=== PATIENT | male | born 1950 | race Caucasian/White ===

== ENCOUNTER 2021-02-26 10:05 | Inpatient (IN) | payer OTHER ==
--- OUTSIDE RECORDS SUMMARY | 2021-02-26 10:08 | XMS REPORT | Continuity of Care Document ---
:1950 Author Organization [facility] t Address [address] [place] [address] Care Team Providers Name Role Phone Unavailable Unavailable Unavailable Problems Condition Condition Condition Status Onset Resolution Last Treating Co mments Source Name Details Category Date Date Treatment Clinician Date CHF CHF Problem Active [facility] ([facility]iv (congestiv Anupama kes - e heart e heart Memoria failure) failure) l [facility] Hypertensi Hypertensi Problem Active [facility] Diabetes Diabetes Problem [facility] type 2[facility] type 2, [facility] - controlled controlled Me moria l Outpati ent Clinics COPD COPD Problem Active [facility] (chronic (chronic [facility] - obstructiv obstructiv Me moria e e l pulmonary pulmonary Outp ati disease) disease) ent Clinics Nicotine Nicotine Problem Active [facility] dependence dependence Anup[facility] - [facility] Out[facility] Clinics Seasonal Seasonal Problem Active [facility] allergic allergic [facility] - rhinitis rhinitis Mem[facility] a l Outpati ent Clinics Adjustment Adjustment Problem Active [facility] disorder disorder [facility] - with with Memoria depressed depressed l mood mood Outpati ent Clinics Chronic Chronic Problem Active [facility] fatigue fatigue [facility] Type 2 Type [address] [facility] diabetes diabetes [facility] - mellitus mellitus Memori a with with l hyperglyce hyperglyce Ou tpati marci, marci, ent without without Clinics long-term long-term current current use of use of insulin insulin Allergies, Adverse Reactions, Alerts This patient has no known allergies or adverse reactions. Medications Ordered Filled Start Stop Current Ordering Indication Dosage Frequency Signature Comments Components Source Medication Medication Date Date Medication? Clinician (SIG) Name Name Amelia Cisneros 2020- No Meghana [address] [facility] Ellipta Ellipta 2-12 06-11 [place] [facility] - 00:00: 00:00 Memoria 00 :00 l [facility] HydrOXYzine HydrOXYzine Yes Meghana [address] [facility] HCl HCl 7-02 [place] as needed [facility] - 00:[facility]: Memoria 00 l [facility] Ozempic Genaic 2020- No Meghana 0.[address] [facility] 7-02 08-24 [place] [facility] - 00:00: 00:00 Memoria 00 :00 l [facility] Rae Hayesartur Yes Meghana as [facility] 1-02 [place] directed [facility] - 00:[facility]: Memoria 00 l [facility] ProAir ProAir Yes Meghana [address] [facility] RespiClick RespiClick [place] needed [facility] - [facility] [place] 3 Yes Meghana [address] [facility] [place] [facility] - [facility] l [facility] Yes Meghana [address] [facility] Sodium Sodium [place] in the [facility] - evening [facility] Lipitor Lipitor Yes Meghana [address] [facility] [place] [facility] Losartan Losartan Yes Meghana [address] Potassium Potassium [place] Luke [facility] - [facility] l [facility] Metoprolol Metoprolol Yes Meghana [address] [facility] [address] Tartrate Tartrate [place] with food L ukes - [facility] Metformin Metformin Yes Meghana [address] [facility] HCl HCl [place] with a [facility] - meal [facility] Immunizations Ordered Filled Immunization Date Status Comments [facility] e Immunization Name Name FLUZONE HIGH DOSE FLUZONE HIGH DOSE 2019-09-[address] [facility] - OVER 65 OVER 65 00:00:00 [facility] Procedures This patient has no known procedures. Encounters Start End Encounter Admission Attending Care Care Encounter Source Date/Time Date/Time Type Type Clinicians Facility Department ID 2020-04-04 2020-04-04 [place] [place] [id number] [facility] 13:00[facility]00 13:00[facility]00 [facility] Outpat[facility] ent Clinics 2020-03-22 2020-03-22 [facility] [place] [place] [id number] [facility] 15:20:00 15:20:00 [facility] Clin[facility] 2019-12-22 2019-12-22 [facility] [place] [id number] [facility] 10:40:00 10:40:00 [facility] Clin[facility] 2019-12-15 2019-12-15 [facility] [place] [id number] [facility] 14:00:00 14:00:00 [facility] 2019-09-14 2019-09-14 [facility] [place] [id number] [facility] 13:20:00 13:20:00 [facility] Clin[facility] 2019-05-11 2019-05-11 [facility] [place] [id number] [facility] 13:00[facility]00 13:00:00 [facility] Clin[facility] 2018-11-11 2018-11-11 [facility] [id number] [facility] 13:00:00 13:00:00 [facility] 2018-10-19 2018-10-19 [facility] [id number] [facility] 08:30:00 08:30:00 [facility] 2018-04-22 2018-04-22 [facility] [id number] [facility] 14:00:00 14:00:00 [facility] Results This patient has no known results.
[2021-02-26 11:28] LABS: Absolute Lymphocytes (CBC) 1.4 K/uL (0.7-4.9); Basophils % 0.6 % (0-1.3); Hematocrit 50.3 % (39.6-49.0); Lymphocytes % 9.5 % (15.3-44.8); MPV 10.3 fL (7.6-11.3); RBC Red Blood Cell Count 5.82 M/uL (4.33-5.43)
[2021-02-26 11:40] LABS: Protime INR 1.21
--- NOTE | 2021-02-26 12:02 | EDPHYS ---
Physician Documentation [facility] Name: José Pat Age: 70 yrs Sex: Male : 1950 Arrival Date: 02/26/2021 Time: 10:09 Bed 8 Private MD: ED Physician Jose Raul Reyes HPI: 02/26 16:46 This 70 yrs old Male presents to ER via Wheelchair with complaints of tw4 Shortness Of Breath, Weakness. 16:46 The patient has shortness of breath at rest. Duration: The symptoms 2 day(s) ago, are tw4 continuous, and are unchanged since they started. The patient's shortness of breath has no apparent modifying factors. Associated signs and symptoms: The patient has no apparent associated signs or symptoms. Severity of symptoms: At their worst the symptoms were moderate in the emergency department the symptoms are unchanged. The patient has not experienced similar symptoms in the past. Historical: - Allergies: 10:27 No Known Allergies; ll1 - PMHx: 10:27 COPD; CHF; Diabetes - IDDM; ll1 - PSHx: 10:27 colon; foot; ll1 - Immunization history:: Flu vaccine is not up to date. - Social history:: Smoking status: Patient reports the use of cigarette tobacco products, smokes one-half pack cigarettes per day. ROS: 16:46 Constitutional: Negative for fever, chills, and weight loss, Eyes: Negative for injury, tw4 pain, redness, and discharge, Cardiovascular: Negative for chest pain, palpitations, and edema, Abdomen/GI: Negative for abdominal pain, nausea, vomiting, diarrhea, and constipation, Back: Negative for injury and pain, MS/Extremity: Negative for injury and deformity, Skin: Negative for injury, rash, and discoloration, Neuro: Negative for headache, weakness, numbness, tingling, and seizure. 16:46 Respiratory: Positive for cough, dyspnea on exertion, shortness of breath. Exam: 16:46 Constitutional: This is a well developed, well nourished patient who is awake, alert, tw4 and in no acute distress. Head/Face: Normocephalic, atraumatic. Chest/axilla: Normal chest wall appearance and motion. Nontender with no deformity. No lesions are appreciated. Cardiovascular: Regular rate and rhythm with a normal S1 and S2. No gallops, murmurs, or rubs. Normal PMI, no JVD. No pulse deficits. 16:46 Respiratory: the patient does not display signs of respiratory distress, Respirations: normal, Breath sounds: decreased breath sounds, that are moderate, are heard in the left lower lobe, right lower lobe, left posterior lower lobe and right posterior lower lobe. Vital Signs: 10:24 BP 119 / 76; Pulse 125; Resp 28; Pulse Ox 81% on R/A; Weight 90.72 kg; Height 5 ft. 7 ll1 in. (170.18 cm); 10:27 Temp 98.1; ll1 11:00 Pulse Ox 82% 3 lpm ; hb 11:20 BP 103 / 66; Pulse 117; Resp 28; sv 12:00 BP 98 / 76; Pulse 116; Resp 28; Pulse Ox 93% 5 lpm ; sv 13:15 BP 106 / 77; Pulse 112; Resp 22; Pulse Ox 90% on 5 lpm NC; hb 10:24 Body Mass Index 31.32 (90.72 kg, 170.18 cm) ll1 MDM: 10:30 Patient medically screened. tw4 16:50 Differential diagnosis: reactive airway disease, Sepsis. Data reviewed: vital signs, tw4 nurses notes. Data interpreted: Pulse oximetry: Interpretation: normal. Test interpretation: by ED physician or midlevel provider: plain radiologic studies. Counseling: I had a detailed discussion with the patient and/or guardian regarding: the historical points, exam findings, and any diagnostic results supporting the discharge/admit diagnosis, the presence of at least one elevated blood pressure reading (>120/80) during this emergency department visit, lab results. Physician consultation: Jeremy Orellana MD regarding admission, to the telemetry unit. patient's condition, and will see patient in ED, shortly. 02/26 10:16 Order name: Blood Culture Adult (2) tw4 02/26 10:16 Order name: BMP 02/26 10:16 Order name: CBC with Diff; Complete Time: 11:49 tw4 02/26 12:15 Interpretation: Normal except: WBC 14.90; RBC 5.82; HCT 50.3; LYM% 9.5; MELONY% 82.0; NEUT tw4 A 12.2. 02/26 10:16 Order name: Ckmb; Complete Time: 12:15 02/26 12:15 Interpretation: Within normal limits: CKMB 1.7. 02/26 10:16 Order name: CPK 02/26 10:16 Order name: D-Dimer 02/26 10:16 Order name: Hepatic Function 02/26 10:16 Order name: Lipase; Complete Time: 12:15 02/26 10:16 Order name: Magnesium; Complete Time: 12:15 02/26 12:15 Interpretation: Within normal limits: MG 2.1. 02/26 10:16 Order name: NT PRO-BNP 02/26 10:16 Order name: PT-INR; Complete Time: 12:14 02/26 12:15 Interpretation: Normal except: PT 14.0. 02/26 10:16 Order name: Ptt, Activated; Complete Time: 12:15 02/26 12:15 Interpretation: Within normal limits: PTT 26.1. 02/26 10:16 Order name: Troponin (emerg Dept Use Only); Complete Time: 12:14 [facility] 02/26 12:14 Interpretation: Normal except: TROPED 0.61. 02/26 10:17 Order name: Blood Culture [facility] 02/26 10:56 Order name: CXR XRAY 02/26 11:31 Order name: ABG; Complete Time: 12:14 [facility] 02/26 12:14 Interpretation: Normal except: ABGPO2 68.3; ABGPCO2 46.2; ABGPH 7.47; ABGHCO3 32.8; tw4 KTZU0UX 90.6; ABGCOHB 2.0. 02/26 11:50 Order name: Lactate 02/26 11:50 Order name: Lactate [facility] 02/26 13:27 Order name: CBC with Automated Diff EDMS 02/26 13:27 Order name: CBC with Automated Diff EDMS 02/26 13:27 Order name: Comprehensive Metabolic Panel [facility] 02/26 13:27 Order name: Comprehensive Metabolic Panel [facility] 02/26 14:51 Order name: SARS-COV-2 RT PCR; Complete Time: 15:35 EDWA 02/26 15:35 Interpretation: Abnormal: SARSCOV2 RT PCR POSITIVE. 02/26 19:15 Order name: Troponin I EDMS 02/26 19:35 Order name: Ptt, Activated mg2 02/26 10:16 Order name: EKG; Complete Time: 10:17 tw4 02/26 10:16 Order name: Cardiac monitoring; Complete Time: 11:32 tw4 02/26 10:16 Order name: EKG - Nurse/Tech; Complete Time: 11:32 tw4 02/26 10:16 Order name: IV Saline Lock; Complete Time: 11: tw4 02/26 10:16 Order name: Labs collected and sent; Complete Time: 11: tw4 02/26 10:16 Order name: O2 Per Protocol; Complete Time: 11:32 4 02/26 10:16 Order name: O2 Sat Monitoring; Complete Time: :02/26 13:27 Order name: Regular EDMS EC:46 Rhythm is regular. ND interval is normal. QRS interval is normal. QT interval is tw4 normal. T waves are Normal. No ST changes noted. Clinical impression: Sinus tachycardia and RBBB. Interpreted by me. Reviewed by me. Administered Medications: 12:06 Drug: Rocephin (cefTRIAXone) 1 grams Route: IV; Rate: calculated rate; Site: right hb wrist; 12:07 Follow up: IV Status: Completed infusion; IV Intake: 10ml hb 12:08 Drug: NS 0.9% 1000 ml Route: IV; Rate: 1 bolus; Site: right wrist; hb 13:00 Follow up: Response: No adverse reaction; IV Status: Completed infusion; IV Intake: hb 1000ml 12:09 Drug: AZITHromycin 500 mg Route: IVPB; Infused Over: 1 hrs; Site: right wrist; hb 13:15 Follow up: IV Status: Completed infusion; IV Intake: 250ml hb 12:29 Drug: Heparin ([place] Drip) 12 units/kg/hr - (HEParin 41979 units, D5W 500 ml) hb {Co-Signature: sv (Maribel Prakash RN).} Route: IV; Rate: calculated rate; Site: right wrist; 14:00 Follow up: Response: No adverse reaction; IV Status: Infusion continued upon admission; hb IV Intake: 35ml Disposition: 02/26/21 12:01 Hospitalization ordered by Jeremy Orellana for Inpatient Admission. Preliminary diagnosis are Other pneumonia, unspecified organism, Non-ST elevation (NSTEMI) myocardial infarction, Coronavirus infection, unspecified. - Bed requested for Telemetry/MedSurg (Inpatient). - Status is Inpatient Admission. mg2 - Condition is Stable. - Problem is new. - Symptoms are unchanged. Signatures: Dispatcher [employer] EDMS Renée Allen Kayla Luna RN RN Gypsy Pires, MADELEINE SALVADOR Isidro Pizarro RN RN ja1 Jose Raul Reyes MD MD tw4 Norman Hernandez RN RN mg2 Gen Chaparro RN RN ll1 Maribel Prakash RN sv Corrections: (The following items were deleted from the chart) 12:16 12:01 Hospitalization Ordered by Jeremy Orellana MD for Inpatient Admission. Preliminary tw4 diagnosis is Other pneumonia, unspecified organism. Bed requested for Telemetry/MedSurg (Inpatient). Status is Inpatient Admission. Condition is Stable. Problem is new. Symptoms are unchanged. tw4 13:21 13:01 CORONAVIRUS+MR.LAB.BRZ ordered. [facility] EDWA 13:56 12:16 02/26/2021 12:01 Hospitalization Ordered by Jeremy Orellana MD for Inpatient ss Admission. Preliminary diagnosis is Other pneumonia, unspecified organism; Non-ST elevation (NSTEMI) myocardial infarction. Bed requested for Telemetry/MedSurg (Inpatient). Status is Inpatient Admission. Condition is Stable. Problem is new. Symptoms are unchanged. tw4 13:56 13:56 02/26/2021 12:01 Hospitalization Ordered by Jeremy Orellana MD for Inpatient ss Admission. Preliminary diagnosis is Other pneumonia, unspecified organism; Non-ST elevation (NSTEMI) myocardial infarction. Bed requested for [facility] ER HOLD. Status is Inpatient Admission. Condition is Stable. Problem is new. Symptoms are unchanged. 15:37 13:56 02/26/2021 12:01 Hospitalization Ordered by Jeremy Orellana MD for Inpatient tw4 Admission. Preliminary diagnosis is Other pneumonia, unspecified organism; Non-ST elevation (NSTEMI) myocardial infarction. Bed requested for [facility] ER HOLD. Status is Inpatient Admission. Condition is Stable. Problem is new. Symptoms are unchanged. 16:39 15:37 02/26/2021 12:01 Hospitalization Ordered by Jeremy Orellana MD for Inpatient bd Admission. Preliminary diagnosis is Other pneumonia, unspecified organism; Non-ST elevation (NSTEMI) myocardial infarction; Coronavirus infection, unspecified. Bed requested for [facility] ER HOLD. Status is Inpatient Admission. Condition is Stable. Problem is new. Symptoms are unchanged. tw4 16:39 16:39 02/26/2021 12:01 Hospitalization Ordered by Jeremy Orellana MD for Inpatient ja1 Admission. Preliminary diagnosis is Other pneumonia, unspecified organism; Non-ST elevation (NSTEMI) myocardial infarction; Coronavirus infection, unspecified. Bed requested for Telemetry/MedSurg (Inpatient). Status is Inpatient Admission. Condition is Stable. Problem is new. Symptoms are unchanged. bd 19:52 16:39 02/26/2021 12:01 Hospitalization Ordered by Jeremy Orellana MD for Inpatient mg2 Admission. Preliminary diagnosis is Other pneumonia, unspecified organism; Non-ST elevation (NSTEMI) myocardial infarction; Coronavirus infection, unspecified. Bed requested for Telemetry/MedSurg (Inpatient). Status is Inpatient Admission. Condition is Stable. Problem is new. Symptoms are unchanged. ja1
--- NOTE | 2021-02-26 12:02 | ER ---
Nurse's Notes [facility] Name: José Pat Age: 70 yrs Sex: Male : 1950 Arrival Date: 02/26/2021 Time: 10:09 Bed 8 Private MD: Diagnosis: Other pneumonia, unspecified organism;Non-ST elevation (NSTEMI) myocardial infarction;Coronavirus infection, unspecified Presentation: 02/26 10:24 Chief complaint: Patient states: SOB, weak for 2 weeks. No known fever. Coronavirus ll1 screen: Client denies travel out of the [place] in the last 14 days. cough unrelated to allergies, difficulty breathing, shortness of breath, Client presents with at least one sign or symptom that may indicate coronavirus-19. Standard/surgical mask placed on the client. Ebola Screen: Patient denies travel to an Ebola-affected area in the 21 days before illness onset. 10:24 Method Of Arrival: Wheelchair ll1 10:25 Initial Sepsis Screen: Does the patient meet any 2 criteria? RR > 20 per min. HR > 90 ll1 bpm. Yes Does the patient have a suspected source of infection? Yes: Productive cough/pneumonia. Risk Assessment: Do you want to hurt yourself or someone else? Patient reports no desire to harm self or others. Onset of symptoms was February 13, 2021. 10:25 Acuity: KIT 2 ll1 Historical: - Allergies: 10:27 No Known Allergies; ll1 - PMHx: 10:27 COPD; CHF; Diabetes - IDDM; ll1 - PSHx: 10:27 colon; foot; ll1 - Immunization history:: Flu vaccine is not up to date. - Social history:: Smoking status: Patient reports the use of cigarette tobacco products, smokes one-half pack cigarettes per day. Screenin:22 Abuse screen: Denies threats or abuse. Denies injuries from another. Nutritional hb screening: No deficits noted. Tuberculosis screening: No symptoms or risk factors identified. Fall Risk None identified. Assessment: 10:45 Reassessment: Patient appears in no apparent distress at this time. General: Appears hb distressed, Behavior is cooperative. Pain: Pain currently is 4 out of 10 on a pain scale. Neuro: Level of Consciousness is awake, alert, obeys commands, Oriented to person, place, time, situation. Cardiovascular: Patient's skin is warm and dry. Rhythm is sinus tachycardia. Respiratory: Reports shortness of breath at rest on exertion cough that is Airway is patent Respiratory effort is labored, Respiratory pattern is tachypnea. GI: No signs and/or symptoms were reported involving the gastrointestinal system. : No signs and/or symptoms were reported regarding the genitourinary system. EENT: No signs and/or symptoms were reported regarding the EENT system. Derm: Skin is pink, warm \T\ dry. Musculoskeletal: Reports low back pain, chronic. 11:45 Reassessment: No changes from previously documented assessment. Patient and/or family hb updated on plan of care and expected duration. Pain level reassessed. 12:45 Reassessment: No changes from previously documented assessment. Patient and/or family hb updated on plan of care and expected duration. Pain level reassessed. 13:45 Reassessment: No changes from previously documented assessment. Patient and/or family hb updated on plan of care and expected duration. Pain level reassessed. Vital Signs: 10:24 BP 119 / 76; Pulse 125; Resp 28; Pulse Ox 81% on R/A; Weight 90.72 kg; Height 5 ft. 7 ll1 in. (170.18 cm); 10:27 Temp 98.1; ll1 11:00 Pulse Ox 82% 3 lpm ; hb 11:20 BP 103 / 66; Pulse 117; Resp 28; sv 12:00 BP 98 / 76; Pulse 116; Resp 28; Pulse Ox 93% 5 lpm ; sv 13:15 BP 106 / 77; Pulse 112; Resp 22; Pulse Ox 90% on 5 lpm NC; hb 10:24 Body Mass Index 31.32 (90.72 kg, 170.18 cm) ll1 ED Course: 10:09 Patient arrived in ED. ds1 10:15 Jose Raul Reyes MD is Attending Physician. tw4 10:25 Triage completed. ll1 10:27 Arm band placed on. ll1 11:05 Initial lab(s) drawn, by me, sent to lab. First set of blood cultures drawn by me. em1 Inserted saline lock: 22 gauge in right wrist, using aseptic technique. Blood collected. 11:21 Gypsy Pires RN is Primary Nurse. hb 11:22 Patient has correct armband on for positive identification. Bed in low position. Call hb light in reach. 11:30 Second set of blood cultures drawn by me. em1 11:48 EKG done, by ED staff, reviewed by Jose Raul Reyes MD. em1 12:01 Jeremy Orellana MD is Hospitalizing Provider. tw4 12:16 CXR XRAY In Process Unspecified. EDMS 13:19 Inserted saline lock: 22 gauge in left antecubital area, using aseptic technique. em1 13:22 COVID swab sent to lab. jp3 13:28 Lactate Sent. sv 14:00 No provider procedures requiring assistance completed. Patient admitted, IV remains in hb place. 19:23 Primary Nurse role handed off by Gypsy Pires, MADELEINE mw2 Administered Medications: 12:06 Drug: Rocephin (cefTRIAXone) 1 grams Route: IV; Rate: calculated rate; Site: right hb wrist; 12:07 Follow up: IV Status: Completed infusion; IV Intake: 10ml hb 12:08 Drug: NS 0.9% 1000 ml Route: IV; Rate: 1 bolus; Site: right wrist; hb 13:00 Follow up: Response: No adverse reaction; IV Status: Completed infusion; IV Intake: hb 1000ml 12:09 Drug: AZITHromycin 500 mg Route: IVPB; Infused Over: 1 hrs; Site: right wrist; hb 13:15 Follow up: IV Status: Completed infusion; IV Intake: 250ml hb 12:29 Drug: Heparin ([place] Drip) 12 units/kg/hr - (HEParin 66704 units, D5W 500 ml) hb {Co-Signature: sv (Maribel Prakash RN).} Route: IV; Rate: calculated rate; Site: right wrist; 14:00 Follow up: Response: No adverse reaction; IV Status: Infusion continued upon admission; hb IV Intake: 35ml Intake: 12:07 IV: 10ml; Total: 10ml. hb 13:00 IV: 1000ml; Total: 1010ml. hb 13:15 IV: 250ml; Total: 1260ml. hb 14:00 IV: 35ml; Total: 1295ml. hb Outcome: 12:01 Decision to Hospitalize by Provider. tw4 14:00 Admitted to ER Hold. Please see [facility] for further documentation. hb 14:00 Condition: stable 14:00 Instructed on the need for admit, Demonstrated understanding of instructions. 19:52 Patient left the ED. mg2 Signatures: Dispatcher [employer] EDMaribel Rangel, MADELEINE SALVADOR sv Siena Mclaughlin ds1 Arron Gómez em1 Gypsy Pires, MADELEINE RN Jose Raul Reyes MD MD tw4 Rakan Ventura 2 Norman Hernandez RN RN mg2 Russ Cervantes jp3 Gen Chaparro RN RN ll1 Maribel Prakash RN
[2021-02-26 12:06] LABS: ALT/SGPT 32 U/L (12-78); AST/SGOT 32 U/L (15-37); Albumin 2.6 g/dL (3.4-5.0); Alkaline Phosphatase 54 U/L (45-117); BUN Blood Urea Nitrogen 11 mg/dL (7-18); Bicarbonate 32 mmol/L (21-32); Bilirubin Direct 0.6 mg/dL (0-0.2); Bilirubin Total 1.4 mg/dL (0.2-1.0); CKMB Creatine Kinase MB 1.7 ng/mL (0.3-3.6); Creatine Phosphokinase 74 U/L (39-308); Glucose Level 204 mg/dL (74-106); Lipase 152 U/L (73-393); Magnesium 2.1 mg/dL (1.8-2.4); NT PRO-BNP 2043 pg/mL (<125); Potassium 3.8 mmol/L (3.5-5.1); Protein, Total 7.5 g/dL (6.4-8.2); Sodium Level 134 mmol/L (136-145)
[2021-02-26 12:09] LABS: Blood Gas Oxyhemoglobin 90.6 % (94-97); Blood O2 Saturation 93.1 % (92-98.5)
[2021-02-26 12:11] LABS: Troponin (Emerg Dept Use Only) 0.61 ng/mL (0.0-0.045)
[2021-02-26] MEDS ORDERED: AZITHROMYCIN 500 MG INJ IVPB ONE (12:13)
[2021-02-26] MEDS ORDERED: NA CHLORIDE 0.9% 250 ML ONE (12:14)
[2021-02-26] MEDS ORDERED: NA CHLORIDE 0.9% 1,000 ML ONE ×2 (12:14→16:36)
[2021-02-26] MEDS ORDERED: CEFTRIAXONE/SWI 1gm 1 GM/10 ML SYR ONE (12:14)
--- NOTE | 2021-02-26 12:25 | RAD REPORT ---
EXAM DESCRIPTION: RAD - Chest Single View - 02/26/2021 12:16 pm CLINICAL HISTORY: COPD;SOBx2 weeks, history of COPD and CHF COMPARISON: Single-view chest December 2016 TECHNIQUE: AP portable chest image was obtained 02/26/2021 12:16 pm . FINDINGS: Interstitial pattern of the right lung field is prominent but not substantially different. No acute right lung parenchymal finding suspected. Extensive interstitial and alveolar opacities are present in the mid and lower left lung field. In th e acute clinical setting pneumonia is the most likely etiology. Heart size is normal range. Pulmonary vasculature within normal limits. Trachea is midline. No pneum othorax seen. Small left pleural effusion could be present. No right pleural effusions suspected. No acute bony abnormality seen. No acute aortic findings suspected. IMPRESSION: Extensive mid and lower left lung field interstitial and alveolar opacification most lik hilary pneumonia. Correlation is made with clinical presentation. Follow-up is needed to assure complete clearing.
[2021-02-26] MEDS ORDERED: HEPARIN/D5W 25,000 UNIT/500 ML BAG IV ONE (12:58)
[2021-02-26] MEDS ORDERED: ACETAMINOPHEN 500 MG TAB PO PRN (13:24)
--- NOTE | 2021-02-26 13:29 | P.HP ---
Patient History Date of Service: 02/26/21 Reason for admission: Cough, sob. History of Present Illness: 70 y o male pt with hx of COPD, BPH and recent treatment for pneumonia who was evaluated in the ED for episode of cough and sob with chest discomfort. he had CXR and labs drawn and he was found to have concerns for pneumonia and elevated troponin. He denies fever, chills, rigor legs swelling and headache. His labs were concerning for elevated WBC and troponin. He was diagnosed with pneumonia and NSTEMI and e was started on heparin drip. He is admitted for inpt care. Allergies No Known Allergies Allergy (Unverified 03/28/14 21:47) - Past Medical/Surgical History Diabetic: No -: DIVERTICULITIS -: COPD -: ABD SX-INFECTIONS POCKET OF ABD ORGANS-UNABLE TO SPECIFY AREAS - Social History Alcohol use: No CD- Drugs: No Caffeine use: Yes Review of Systems General: Weakness, Malaise Eyes: Unremarkable ENT: Unremarkable Respiratory: Cough, Shortness of Breath, Wheezing Cardiovascular: Unremarkable Gastrointestinal: Unremarkable Genitourinary: Unremarkable Musculoskeletal: Unremarkable Neurological: Unremarkable Physical Examination - Physical Exam General: Alert, Oriented x3, Cooperative HEENT: Atraumatic, Normocephalic Neck: Supple Respiratory: Diminished, Crackles/rales Cardiovascular: No edema, Regular rate/rhythm, Normal S1 S2 Gastrointestinal: Soft and benign Neurological: Normal speech, Cranial nerves 3-12 intact - Studies Laboratory Data (last 24 hrs) 02/26/21 11:05: PT 14.0 H, INR 1.21, APTT 26.1 02/26/21 11:05: WBC 14.90 H, Hgb 16.9, Hct 50.3 H, Plt Count 343 02/26/21 11:05: Sodium 134 L, Potassium 3.8, BUN 11, Creatinine 0.59, Glucose 204 H, Magnesium 2.1, Total Bilirubin 1.4 H, AST 32, ALT 32, Alkaline Phosphatase 54, Lipase 152 Assessment and Plan - Plan 1.COPD exacerbation-deemed infectious in etiology. we will continue empiric antibiotic of rocephin and azithromycin. we will continue duonebs ad consider steroid therapy if wheeze persist. we will have supplemental oxygen as needed. 2.NSTEMI-Deemed due to demand ischemia from pneumonia. we will trend troponin and continue heparin for acs protocol. cardiology to evaluate. 3.Pneumonia-He does have elevated WBC and CXR finding [id number] for pneumonia. we will continue started antibiotics while waiting for culture reprot. we will monitor symptomatology closely. 4.BPH-we will continue tamsulosin. 5.Diabetes type 2-we will continue SSI and carb restricted diet. Discharge Plan: Home - Advance Directives Does patient have a Living Will: No Does patient have a Durable POA for Healthcare: No
[2021-02-26] MEDS ORDERED: ENOXAPARIN 40 MG/0.4 ML SQ SCH (14:00)
[2021-02-26] MEDS: NA CHLORIDE 0.9% 1,000 ML IV SCH (14:00)
[2021-02-26 14:27] VITALS: BMI 32.5
[2021-02-26] MEDS ORDERED: GLUCAGON 1 MG/VIAL IM PRN (16:37)
[2021-02-26] MEDS ORDERED: D50W 25 GM/50 ML VIAL IV PRN (16:52)
[2021-02-26] MEDS ORDERED: HEPARIN/D5W 25,000 UNIT/500 ML BAG IV SCH (17:00)
[2021-02-26] MEDS ORDERED: HEPARIN/D5W 25,000 UNIT/500 ML BAG IV PRN (17:00)
[2021-02-26] MEDS: ALBUTEROL 2.5 MG/3 ML NEB SOL NEB SCH (20:05)
[2021-02-26] MEDS: IPRATROPIUM BROM 0.5MG/2.5ML NEB SCH (20:05)
[2021-02-26] MEDS: INSULIN -REGULAR HUMAN 50 UNIT/0.5 ML ML SQ SCH (22:25)
[2021-02-27] MEDS ORDERED: HEPARIN 5000 UNIT/ML 1 ML VIAL IV PRN (00:16)
[2021-02-27] MEDS: MELATONIN 5 MG TABLET PO PRN ×2 (00:47→21:34)
[2021-02-27] MEDS: ALBUTEROL 2.5 MG/3 ML NEB SOL NEB SCH ×2 (01:40→08:00)
[2021-02-27] MEDS: IPRATROPIUM BROM 0.5MG/2.5ML NEB SCH ×4 (01:40→20:20)
[2021-02-27 04:33] LABS: Absolute Lymphocytes (CBC) 1.9 K/uL (0.7-4.9); Basophils % 0.9 % (0-1.3); Hematocrit 43.5 % (39.6-49.0); Lymphocytes % 13.5 % (15.3-44.8); MPV 10.4 fL (7.6-11.3); RBC Red Blood Cell Count 5.02 M/uL (4.33-5.43)
[2021-02-27 04:46] LABS: ALT/SGPT 29 U/L (12-78); AST/SGOT 27 U/L (15-37); Albumin 2.2 g/dL (3.4-5.0); Alkaline Phosphatase 48 U/L (45-117); BUN Blood Urea Nitrogen 9 mg/dL (7-18); Bicarbonate 35 mmol/L (21-32); Bilirubin Total 0.7 mg/dL (0.2-1.0); Glucose Level 203 mg/dL (74-106); Potassium 3.6 mmol/L (3.5-5.1); Protein, Total 6.2 g/dL (6.4-8.2); Sodium Level 142 mmol/L (136-145)
[2021-02-27] MEDS: INSULIN -REGULAR HUMAN 50 UNIT/0.5 ML ML SQ SCH ×4 (07:30→21:33)
[2021-02-27] MEDS: TAMSULOSIN 0.4 MG SR CAP PO SCH (08:54)
[2021-02-27] MEDS: ASPIRIN EC 81 MG TAB PO SCH (08:54)
[2021-02-27] MEDS ORDERED: CEFTRIAXONE/SWI 1gm 1 GM/50 ML SYR IV SCH (09:00)
[2021-02-27] MEDS: NA CHLORIDE 0.9% 1,000 ML IV SCH ×2 (10:00)
[2021-02-27] MEDS: AZITHROMYCIN IV 500 MG in NA CHLORIDE 0.9% 250 ML IVPB SCH (11:33)
--- NOTE | 2021-02-27 12:17 | EKG ---
Test Date: 2021-02-26 Test Time: 11:14:54 [employer]: ATIF MEASUREMENT RESULTS: Intervals: Rate: 120 MN: 156 QRSD: 128 QT: 368 QTc: 520 [place]: P: 97 MN: 156 QRS: 268 T: 73 INTERPRETIVE STATEMENTS: Suspect arm lead reversal, interpretation assumes no reversal Sinus tachycardia with premature supraventricular complexes Right bundle branch block Inferior infarct, age undetermined Anterior infarct, age undetermined Abnormal ECG Compared to ECG 03/28/2014 00:20:06 Atrial premature complex(es) now present Atrial fibrillation no longer present Left anterior fascicular block no longer present Myocardial infarct finding still present Electronically Signed On 02-27-21 12:13:40 CDT by Nick Coulter
[2021-02-27] MEDS ORDERED: ALBUTEROL INHALER 60 PUFF/8 GM IH PRN (12:44)
--- NOTE | 2021-02-27 15:46 | CON ---
Date of Consultation: 02/27/2021 Reason For Consultation: Elevated troponin, sinus tachycardia, and pneumonia. History Of Present Illness: Mr. Pat is a 70-year-old male with history of COPD, diabetes, con gestive heart failure. Came in with a pneumonia in left lower lobe on chest x-ray. He has been in s inus tachycardia with a heart rate of 118, occasional PACs, first-degree AV block. No cardiac sympto ms reported. He came in with shortness of breath, cough, chills, no fever, secondary to pneumonia. He is on antibiotic. He is on heparin. He is on inhalers. Denies any chest pain, nausea, vomiting, diaphoresis, PND, orthopnea, pedal edema, palpitations, or syncope. Past Medical History: As stated above. Allergies: NONE. Review of Systems: Negative. Social History: Negative. Family History: Noncontributory. Medications: At home include inhalers, aspirin. Physical Examination: Vital Signs: Stable. He is afebrile. Sinus tachycardia with PACs. O2 saturation is 90% on 3 L. HEENT: Negative. Neck: Supple with no bruit. Chest: Reveals crackles both bases and occasional respiratory wheezing. Abdomen: Benign. Extremities: Revealed no clubbing, cyanosis, or edema. Diagnostic Data: EKG showed sinus tachycardia. Chest x-ray showed left lower lobe pneumonia. Gluco se was 198. O2 saturation 90% on 3 L. D-dimer is 7044. Troponin is 0.61. BNP is 2043. PO2 is 68, pCO2 of 42, pH is 7.47. Impression And Plan: Sinus tachycardia, elevated troponin, elevated BNP secondary to demand ischemia from the pneumonia. The D-dimer is elevated for the same reason. I will do an echocardiography. Kim horton remained hypoxic, still had some wheezing, still tachycardic, I think he needs to be on antibiotics and inhalers for a longer time. Depending what the echocardiogram shows, we may consider a low-dose beta-kvng. His diabetes is fairly well controlled. He has chronic obstructive pulmonary disease exacerbation, which may exacerbate his pneumonia and may take him a longer time to recover. Neverth eless, I agree with present regimen. This is not an acute coronary syndrome. For invasive cardiac workup, we will see what the echo shows before making further decisions. RUPERT/MODL Voice ID: [id number] Report ID: [id number]
[2021-02-28] MEDS: IPRATROPIUM BROM 0.5MG/2.5ML NEB SCH ×4 (01:40→19:45)
[2021-02-28] MEDS: INSULIN -REGULAR HUMAN 50 UNIT/0.5 ML ML SQ SCH ×4 (07:30→20:51)
[2021-02-28] MEDS: CEFTRIAXONE/SWI 1gm 1 GM/10 ML SYR IV SCH (08:10)
[2021-02-28] MEDS: TAMSULOSIN 0.4 MG SR CAP PO SCH (08:10)
[2021-02-28] MEDS: ASPIRIN EC 81 MG TAB PO SCH (08:10)
[2021-02-28] MEDS: AZITHROMYCIN IV 500 MG in NA CHLORIDE 0.9% 250 ML IVPB SCH (08:11)
[2021-02-28] MEDS: dexAMETHasone 4 MG/ML VIAL IV SCH ×2 (10:46→20:50)
[2021-02-28] MEDS ORDERED: Remdesivir 200 MG in NA CHLORIDE 0.9% 250 ML IV ONE (12:00)
[2021-02-28] MEDS: MELATONIN 5 MG TABLET PO PRN (20:51)
[2021-03-01] MEDS: IPRATROPIUM BROM 0.5MG/2.5ML NEB SCH ×4 (03:20→20:10)
[2021-03-01] MEDS: INSULIN -REGULAR HUMAN 50 UNIT/0.5 ML ML SQ SCH ×4 (07:40→21:15)
[2021-03-01] MEDS: dexAMETHasone 4 MG/ML VIAL IV SCH ×2 (07:41→21:15)
[2021-03-01] MEDS: ASPIRIN EC 81 MG TAB PO SCH (07:41)
[2021-03-01] MEDS: CEFTRIAXONE/SWI 1gm 1 GM/10 ML SYR IV SCH (07:41)
[2021-03-01] MEDS: TAMSULOSIN 0.4 MG SR CAP PO SCH (07:41)
[2021-03-01] MEDS: AZITHROMYCIN IV 500 MG in NA CHLORIDE 0.9% 250 ML IVPB SCH (07:42)
--- NOTE | 2021-03-01 08:11 | ECHO ---
HEIGHT: 5 ft 7 in WEIGHT: 207 lb 7.28 oz DATE OF STUDY: 02/27/[address]: Jeremy Orellana MD 2-DIMENSIONAL: YES M.MODE: YES DOPPLER: YES COLOR FLOW: YES TDS: NO PORTABLE: NO DEFINITY: NO BUBBLE STUDY: NO DIAGNOSIS: NSTEMI EVALUATION CARDIAC HISTORY: CATHERIZATION: NO SURGERY: NO PROSTHETIC VALVE: NO PACEMAKER: NO MEASUREMENTS (cm) DIASTOLIC (NORMALS) SYSTOLIC (NORMALS) IVSd 1.4 (0.6-1.2) LA Diam 3.5 (1.9-4.0) LVEF 51% LVIDd 4.0 (3.5-5.7) LVIDs 3.0 (2.0-3.5) %FS 26% LVPWd 1.4 (0.6-1.2) Ao Diam 2.7 (2.0-3.7) 2 DIMENSIONAL ASSESSMENT: RIGHT ATRIUM: NORMAL LEFT ATRIUM: NORMAL RIGHT VENTRICLE: NORMAL LEFT VENTRICLE: LEFT VENTRICULAR HYPERTROPHY TRICUSPID VALVE: NORMAL MITRAL VALVE: NORMAL PULMONIC VALVE: NORMAL AORTIC VALVE: NORMAL PERICARDIAL EFFUSION: NONE AORTIC ROOT: NORMAL LEFT VENTRICULAR WALL MOTION: NORMAL DOPPLER/COLOR FLOW: NORMAL COMMENTS: LEFT VENTRICULAR HYPERTROPHY. NORMAL LEFT VENTRICULAR EJECTION FRACTION. NO WALL MOTION ABNORMALITY. NO EFFUSION. TECHNOLOGIST: Vanessa VALLE
[2021-03-01] MEDS: Remdesivir 100 MG in NA CHLORIDE 0.9% 250 ML IV SCH (08:49)
--- NOTE | 2021-03-01 11:55 | PN ---
Date of Progress Note: 02/28/2021 The patient has been seen because of elevated troponin following severe pneumonia. 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 Echocardiogram which was done today on 02/28/2021 revealed smiley l ejection fraction, no wall motion abnormalities, and no effusion. I still feel that his elevated t roponin, BNP, and D-dimer, and elevated heart rate is secondary to demand ischemia and pneumonia. I will consider a low-dose beta kvng, but I am hoping with hydration and treating his pneumonia, he will improve back to normal. We will see him in the office as an outpatient. RUPERT/BASSAM Voice ID: [id number] Report ID: [id number]
[2021-03-02] MEDS: IPRATROPIUM BROM 0.5MG/2.5ML NEB SCH ×4 (02:15→20:40)
[2021-03-02] MEDS: TAMSULOSIN 0.4 MG SR CAP PO SCH (07:24)
[2021-03-02] MEDS: ASPIRIN EC 81 MG TAB PO SCH (07:24)
[2021-03-02] MEDS: AZITHROMYCIN IV 500 MG in NA CHLORIDE 0.9% 250 ML IVPB SCH (07:24)
[2021-03-02] MEDS: CEFTRIAXONE/SWI 1gm 1 GM/10 ML SYR IV SCH (07:24)
[2021-03-02] MEDS: dexAMETHasone 4 MG/ML VIAL IV SCH ×2 (07:25→20:31)
[2021-03-02] MEDS: INSULIN -REGULAR HUMAN 50 UNIT/0.5 ML ML SQ SCH ×4 (08:31→20:31)
[2021-03-02] MEDS: Remdesivir 100 MG in NA CHLORIDE 0.9% 250 ML IV SCH (08:31)
--- NOTE | 2021-03-02 16:39 | P.PN ---
Subjective Date of Service: 02/27/21 Patient still short of breath and in distress. Continue with Remdesivir. Patient still remains hypoxic. Continue monitoring closely. Review of Systems 10-point ROS is otherwise unremarkable Physical Examination - Vital Signs Temperature: 97.5 F Blood Pressure: 107/70 Pulse: 101 Respirations: 20 Pulse Ox (%): 93 - Physical Exam General: Alert, In no apparent distress, Oriented x3 HEENT: Atraumatic, PERRLA, EOMI Neck: Supple, JVD not distended Respiratory: Clear to auscultation bilaterally, Diminished, Expiratory wheezes, Rhonchi/gurgles Cardiovascular: Regular rate/rhythm, Normal S1 S2, No murmurs Gastrointestinal: Normal bowel sounds, Soft and benign, Non-distended, No tenderness Musculoskeletal: No tenderness Neurological: Sensation intact, Cranial nerves 3-12 intact - Studies Medications List Reviewed: Yes Assessment & Plan - Problems (Diagnosis) (1) Pneumonia due to COVID-19 virus Current Visit: Yes Status: Acute (2) Dyspnea Current Visit: No Status: Acute - Plan 1. Continue with IV steroids 2. Monitor inflammatory markers 3. Repeat chest x-ray is symptoms are progressively worsening 4. O2 per protocol 5. Continue with antiviral therapy 6. Continue with albuterol inhaler therapy; also supportive care 7. Monitor LFTs 8. GI and DVT prophylaxis Discharge Plan: Home Plan to discharge in: Greater than 2 days - Advance Directives Does patient have a Living Will: No Does patient have a Durable POA for Healthcare: No - Code Status/Comfort Care Code Status Assessed: Yes Code Status: Full Code Critical Care: No Time Spent Managing PTS Care (In Minutes): 35
--- NOTE | 2021-03-02 16:42 | P.PN ---
Date of Service: 02/28/21 Subjective Patient respiratory status is improving. Patient clinically feels much better. Review of Systems 10-point ROS is otherwise unremarkable Physical Examination - Vital Signs Reviewed - Physical Exam General: Alert, In no apparent distress, Oriented x3 Respiratory: Clear to auscultation bilaterally, Diminished, Expiratory wheezes, Rhonchi/gurgles Cardiovascular: Regular rate/rhythm, Normal S1 S2, No murmurs Gastrointestinal: Normal bowel sounds, Soft and benign, Non-distended, No tenderness Musculoskeletal: No tenderness Neurological: Sensation intact, Cranial nerves 3-12 intact Assessment & Plan - Problems (Diagnosis) (1) Pneumonia due to COVID-19 virus Current Visit: Yes Status: Acute (2) Dyspnea Current Visit: No Status: Acute - Plan Continue with plan of care as mentioned below: 1. Continue with IV steroids 2. Monitor inflammatory markers 3. Repeat chest x-ray is symptoms are progressively worsening 4. O2 per protocol 5. Continue with antiviral therapy 6. Continue with albuterol inhaler therapy; also supportive care 7. Monitor LFTs 8. GI and DVT prophylaxis
--- NOTE | 2021-03-02 16:43 | P.PN ---
Date of Service: 03/01/21 Subjective Patient continuing to do well. Symptomatically much better. Review of Systems 10-point ROS is otherwise unremarkable Physical Examination - Vital Signs Reviewed - Physical Exam General: Alert, In no apparent distress, Oriented x3 Respiratory: Clear to auscultation bilaterally, Diminished, Expiratory wheezes, Rhonchi/gurgles Cardiovascular: Regular rate/rhythm, Normal S1 S2, No murmurs Gastrointestinal: Normal bowel sounds, Soft and benign, Non-distended, No tenderness Musculoskeletal: No tenderness Neurological: Sensation intact, Cranial nerves 3-12 intact Assessment & Plan - Problems (Diagnosis) (1) Pneumonia due to COVID-19 virus Current Visit: Yes Status: Acute (2) Dyspnea Current Visit: No Status: Acute - Plan Continue with plan of care as mentioned below: 1. Continue with IV steroids 2. Monitor inflammatory markers 3. Repeat chest x-ray is symptoms are progressively worsening 4. O2 per protocol 5. Continue with antiviral therapy; day 2/3 6. Continue with albuterol inhaler therapy; also supportive care 7. Monitor LFTs 8. GI and DVT prophylaxis
--- NOTE | 2021-03-02 16:44 | P.PN ---
Date of Service: 03/02/21 Subjective Patient on day 3 of 5; anticipate discharge over the next 24-48 hr. He looks like she will still need home oxygen. Review of Systems 10-point ROS is otherwise unremarkable Physical Examination - Vital Signs Reviewed - Physical Exam General: Alert, In no apparent distress, Oriented x3 Respiratory: Respirations are improved Cardiovascular: Regular rate/rhythm, Normal S1 S2, No murmurs Gastrointestinal: Normal bowel sounds, Soft and benign, Non-distended, No tenderness Musculoskeletal: No tenderness Neurological: Sensation intact, Cranial nerves 3-12 intact Assessment & Plan - Problems (Diagnosis) (1) Pneumonia due to COVID-19 virus Current Visit: Yes Status: Acute (2) Dyspnea Current Visit: No Status: Acute - Plan Continue with plan of care as mentioned below: 1. Continue with IV steroids 2. Monitor inflammatory markers 3. Repeat chest x-ray is symptoms are progressively worsening 4. O2 per protocol 5. Continue with antiviral therapy; day 2/3 6. Continue with albuterol inhaler therapy; also supportive care 7. Monitor LFTs 8. GI and DVT prophylaxis
[2021-03-03] MEDS: IPRATROPIUM BROM 0.5MG/2.5ML NEB SCH ×4 (02:10→20:15)
[2021-03-03] MEDS ORDERED: FAMOTIDINE 20 MG TAB PO ONE (02:49)
[2021-03-03] MEDS ORDERED: METOPROLOL TAR 25 MG TAB PO ONE ×2 (02:50→04:19)
[2021-03-03] MEDS: MELATONIN 5 MG TABLET PO PRN ×2 (03:03→20:57)
[2021-03-03] MEDS ORDERED: METOPROLOL TAR 25 MG TAB PO SCH (06:00)
[2021-03-03] MEDS: AZITHROMYCIN IV 500 MG in NA CHLORIDE 0.9% 250 ML IVPB SCH (07:32)
[2021-03-03] MEDS: ASPIRIN EC 81 MG TAB PO SCH (07:32)
[2021-03-03] MEDS: TAMSULOSIN 0.4 MG SR CAP PO SCH (07:33)
[2021-03-03] MEDS: CEFTRIAXONE/SWI 1gm 1 GM/10 ML SYR IV SCH (07:33)
[2021-03-03] MEDS: dexAMETHasone 4 MG/ML VIAL IV SCH ×2 (07:33→20:57)
[2021-03-03] MEDS: INSULIN -REGULAR HUMAN 50 UNIT/0.5 ML ML SQ SCH ×4 (08:09→20:56)
[2021-03-03] MEDS: Remdesivir 100 MG in NA CHLORIDE 0.9% 250 ML IV SCH (09:26)
[2021-03-04] MEDS: IPRATROPIUM BROM 0.5MG/2.5ML NEB SCH ×2 (02:25→08:39)
[2021-03-04 04:06] VITALS: O2SAT 91
[2021-03-04 04:22] LABS: Albumin 2.8 g/dL (3.4-5.0); Bilirubin Direct 0.3 mg/dL (0-0.2); Bilirubin Total 0.8 mg/dL (0.2-1.0); Protein, Total 7.2 g/dL (6.4-8.2)
--- NOTE | 2021-03-04 07:57 | P.PN ---
Date of Service: 03/03/21 Subjective Patient on day 4 of 5; clinical symptoms continued to improve. anticipate discharge home in the morning Review of Systems 10-point ROS is otherwise unremarkable Physical Examination - Vital Signs Reviewed - Physical Exam General: Alert, In no apparent distress, Oriented x3 Respiratory: Lungs appear to be clear at this time Cardiovascular: Regular rate/rhythm, Normal S1 S2, No murmurs Gastrointestinal: Normal bowel sounds, Soft and benign, Non-distended, No tenderness Musculoskeletal: No tenderness Neurological: Sensation intact, Cranial nerves 3-12 intact Assessment & Plan - Problems (Diagnosis) (1) Pneumonia due to COVID-19 virus Current Visit: Yes Status: Acute (2) Dyspnea Current Visit: No Status: Acute - Plan Continue with plan of care as mentioned below: 1. Continue with IV steroids 2. Monitor inflammatory markers 3. Repeat chest x-ray is symptoms are progressively worsening 4. O2 per protocol 5. Continue with antiviral therapy; day 4/5 6. Continue with albuterol inhaler therapy; also supportive care 7. Monitor LFTs 8. GI and DVT prophylaxis
[2021-03-04] MEDS: CEFTRIAXONE/SWI 1gm 1 GM/10 ML SYR IV SCH (07:59)
[2021-03-04] MEDS: dexAMETHasone 4 MG/ML VIAL IV SCH (08:00)
[2021-03-04] MEDS: AZITHROMYCIN IV 500 MG in NA CHLORIDE 0.9% 250 ML IVPB SCH (08:00)
[2021-03-04] MEDS: ASPIRIN EC 81 MG TAB PO SCH (08:00)
[2021-03-04] MEDS: INSULIN -REGULAR HUMAN 50 UNIT/0.5 ML ML SQ SCH (08:00)
[2021-03-04] MEDS: TAMSULOSIN 0.4 MG SR CAP PO SCH (08:00)
[2021-03-04] MEDS ORDERED: METOPROLOL TAR 25 MG TAB PO ONE (09:00)
[2021-03-04 09:46] VITALS: TEMP 97.4
[2021-03-04] MEDS: Remdesivir 100 MG in NA CHLORIDE 0.9% 250 ML IV SCH (09:47)
[2021-03-04 09:48] VITALS: BP 103/73
--- NOTE | 2021-03-19 17:03 | P.DS ---
Discharge Date: 03/04/21 Disposition: ROUTINE DISCHARGE Discharge Condition: GOOD Reason for Admission: Cough, sob. - Problems (1) Pneumonia due to COVID-19 virus Status: Acute (2) Dyspnea Status: Acute Brief History of Present Illness: Patient is a 70 yo male pt with hx of COPD, BPH and recent treatment for pneumonia who was evaluated in the ED for episode of cough and shortness of breath with chest discomfort. Patients chest x-ray revealed pneumonia. He denies fever, chills, rigor legs swelling and headache. His labs were concerning for elevated WBC and troponin. Patient also had elevated troponin levels. Patient will be admitted for further evaluation. Hospital Course: Patient was given IV antibiotic therapy. Patient's chest x-ray shows improvement. Echocardiogram did not reveal any significant abnormalities. Patient's troponins trended downward. Patient is clinically doing well and is stable for discharge home. Vital Signs/Physical Exam: Temp Pulse Resp BP Pulse Ox 97.4 F 108 H 16 103/73 91 03/04/21 08:00 03/04/21 09:46 03/04/21 08:00 03/04/21 09:46 03/04/21 08:00 General: Alert, In no apparent distress, Oriented x3 Laboratory Data at Discharge: WBC 13.80 K/uL (4.3-10.9) H 02/27/21 03:59 Hgb 14.6 g/dL (13.6-17.9) 02/27/21 03:59 Hct 43.5 % (39.6-49.0) 02/27/21 03:59 Plt Count 279 K/uL (152-406) 02/27/21 03:59 PT 14.0 SECONDS (9.5-12.5) H 02/26/21 11:05 INR 1.21 02/26/21 11:05 APTT 30.8 SECONDS (24.3-36.9) 02/27/21 12:26 Sodium 142 mmol/L (136-145) 02/27/21 03:59 Potassium 3.6 mmol/L (3.5-5.1) 02/27/21 03:59 BUN 9 mg/dL (7-18) 02/27/21 03:59 Creatinine 0.64 mg/dL (0.55-1.3) 02/27/21 03:59 Glucose 203 mg/dL (74-106) H 02/27/21 03:59 Magnesium 2.1 mg/dL (1.8-2.4) 02/26/21 11:05 Total Bilirubin 0.8 mg/dL (0.2-1.0) 03/04/21 03:41 AST 17 U/L (15-37) 03/04/21 03:41 ALT 32 U/L (12-78) 03/04/21 03:41 Alkaline Phosphatase 56 U/L (45-117) 03/04/21 03:41 Troponin I 0.22 ng/mL (0.0-0.045) H 03/03/21 03:18 Lipase 152 U/L (73-393) 02/26/21 11:05 Home Medications: Albuterol Inhaler [Ventolin Inhaler*] 2 puff IH Q6H PRN #1 hfa.aer.ad 03/04/21 Apixaban [Eliquis] 5 mg PO BID #30 tablet 03/04/21 Aspirin [Aspirin EC 81 MG] 81 mg PO DAILY #30 tablet. 03/04/21 Benzonatate [Tessalon Perle] 200 mg PO TID PRN #30 cap 03/04/21 Melatonin 10 mg PO BEDTIME PRN PRN #14 tablet 03/04/21 Metoprolol Tartrate [Lopressor] 25 mg PO BID #30 tab 03/04/21 Tamsulosin [Flomax*] 0.4 mg PO DAILY #30 cap 03/04/21 predniSONE [Prednisone*] 20 mg PO BID #11 tab 03/04/21 New Medications: Aspirin [Aspirin EC 81 MG] 81 mg PO DAILY #30 tablet. Apixaban [Eliquis] 5 mg PO BID #30 tablet Tamsulosin [Flomax*] 0.4 mg PO DAILY #30 cap Metoprolol Tartrate [Lopressor] 25 mg PO BID #30 tab Melatonin 10 mg PO BEDTIME PRN PRN #14 tablet PRN Reason: Insomnia predniSONE [Prednisone*] 20 mg PO BID #11 tab Benzonatate [Tessalon Perle] 200 mg PO TID PRN #30 cap PRN Reason: Cough Albuterol Inhaler [Ventolin Inhaler*] 2 puff IH Q6H PRN #1 hfa.aer.ad PRN Reason: Shortness Of Breath Physician Discharge Instructions: OK TO DC IV AND DC HOME FOLLOW-UP WITH PRIMARY CARE PROVIDER IN 1-2 WEEKS FOLLOW-UP WITH Pulmonary IN 1-2 WEEKS Recommend follow-up with Cardiology in 1-2 weeks for further cardiac testing RETURN TO THE ER IF symptoms worsen CALL or TEXT DR. RUIZ AT [phone] IF ANY QUESTIONS REGARDING HOSPITAL STAY. PLEASE CALL THE FLOOR AT [phone] IF ANY MEDICATION OR NURSING QUESTIONS. Diet: AHA Activity: Fall precautions Followup: Gerald Fong MD [ACTIVE - CAN ADMIT] - 1-2 Weeks (Call to schedule for appointment) Nick Coulter MD [ACTIVE - CAN ADMIT] - 1-2 Weeks (Call to schedule for appointment) NONE,NONE [Primary Care Provider] - 1-2 Weeks (CAll and schedule for appointment) Time spent managing pt's care (in minutes): 35
== END 2021-03-04 11:45 | disposition home or self-care (01) | DRG 177 ==
LOC: ER 10:05 → ERHOLD 13:37 → 4TH 18:32
PROVIDERS: ADMIT Internal Medicine Nephrology; ATTEND Hospitalist
PROC: XW033E5 Introduction of Remdesivir Anti-infective into Peripheral Vein, Percutaneous Approach, New Technology Group 5 (ICD-10-PCS; principal; 2021-03-02)
DX: U07.1 COVID-19 (principal); I50.31 Acute diastolic (congestive) heart failure; I21.A1 Myocardial infarction type 2; J12.82 Pneumonia due to coronavirus disease 2019; J96.01 Acute respiratory failure with hypoxia; J44.1 Chronic obstructive pulmonary disease with (acute) exacerbation; J44.0 Chronic obstructive pulmonary disease with (acute) lower respiratory infection; I45.10 Unspecified right bundle-branch block; E11.9 Type 2 diabetes mellitus without complications; F17.210 Nicotine dependence, cigarettes, uncomplicated; N40.0 Benign prostatic hyperplasia without lower urinary tract symptoms; R00.0 Tachycardia, unspecified; Z79.82 Long term (current) use of aspirin
CPT/HCPCS: 36415; 71045; 80048; 80053; 80076; 82550; 82553; 82805; 82947; 83605; 83690; 83735; 83880; 84484; 85025; 85379; 85610; 85730; 87040; 93005; 93306; 94640; 96365; 96375; 99285; J0456; J0696; J1100; J1644; J7030; J7050; U0003

== ENCOUNTER 2022-05-31 23:31 | Inpatient (IN) | payer OTHER ==
--- OUTSIDE RECORDS SUMMARY | 2022-05-31 23:35 | XMS REPORT | Continuity of Care Document ---
:1950 Author Organization [facility] t Address [address] [place] [address] Care Team Providers Name Role Phone [place] Attending Clinician Unavailable Problems Condition Condition Condition Status Onset Resolution Last Treating Co mments Source Name Details Category Date Date Treatment Clinician Date CHF CHF Problem Active Common (congestiv (congestiv Sp anabela e heart e heart - [facility] failure) failure) [facility] Hypertensi Hypertensi Problem Active C ommon on on [facility] Diabetes Diabetes Problem Active Commo n type 2, type 2, Spirit controlled controlled - [facility] COPD COPD Problem Active Common (chronic (chronic [facility] obstructiv obstructiv - [facility] e e pulmonary pulmonary Ney s disease) disease) [facility] Nicotine Nicotine Problem Active Commo n dependence dependence Sp anabela - [facility] Seasonal Seasonal Problem Active Commo n allergic allergic Spirit rhinitis rhinitis - [facility] Adjustment Adjustment Problem Active C ommon disorder disorder Spirit with with - [facility] depressed depressed mood [facility] Chronic Chronic Problem Active Common fatigue fatigue [facility] - [facility] Type 2 Type 2 Problem Active Common diabetes diabetes [facility] mellitus mellitus - [facility] with with hyperglyce hyperglyce [facility], [facility], Medical without without Center long-term long-term current current use of use of insulin insulin Allergies, Adverse Reactions, Alerts This patient has no known allergies or adverse reactions. Medications Ordered Filled Start Stop Current Ordering Indication Dosage Frequency Signature Comments Components Source Medication Medication Date Date Medication? Clinician (SIG) Name Name Amelia Cisneros 2019-0 2020- No Meghana 1 puff Com mon Ellipta Ellipta 2-12 06-11 [place] [facility] 00:00: 00:00 - [facility] 00 :00 [facility] HydrOXYzine HydrOXYzine 2019-0 Yes Meghana 1 tablet Common HCl HCl 7-02 [place] as needed [facility] 00:00: - [facility] 00 [facility] Ozempic Ozempic 2019- 2020- No Meghana 0.5 mg Com mon 05-11 08 [place] [facility] 00:00: 00:00 - [facility] 00 :00 [facility] Januvia Januvia Yes Meghana as Common 11-11 [place] directed [facility] 00:00: - [facility] 00 [facility] ProAir ProAir Yes Meghana 2 puffs as Comm on RespiClick RespiClick [place] needed [facility] Reno 3 Reno 3 Yes Meghana 1 capsule Com mon [place] [facility] Montelukast Montelukast Yes Meghana 1 tablet Common Sodium Sodium [place] in the [facility] evening [facility] Lipitor Lipitor Yes Meghana 1 tablet Comm on [place] [facility] Losartan Losartan Yes Meghana 1 tablet Co mmon Potassium Potassium [place] Spir it [facility] Metoprolol Metoprolol Yes Meghana 1 tablet Common Tartrate Tartrate [place] with food S pirit [facility] Metformin Metformin Yes Meghana 1 tablet Common HCl HCl [place] with a Spirit meal [facility] Immunizations Ordered Immunization Filled Immunization Date Status Commen ts Source Name Name FLUZONE HIGH DOSE FLUZONE HIGH DOSE 2019-09-14 Completed Common [facility] OVER 65 OVER 65 00:00:00 [facility] Procedures This patient has no known procedures. Encounters Start End Encounter Admission Attending Care Care Encounter Source Date/Time Date/Time Type Type Clinicians Facility Department ID 2021-12-[address] [facility] [id number] Common 11:06:38 Meghana [id number] [facility] 2020-04-04 2020-04-04 [facility] [id number] Common 13:00:00 13:00:00 [facility] it [facility] 2020-03-22 2020-03-22 [facility] [id number] Common 15:20:00 15:20:00 [facility] [address] [facility] 2019-12-22 2019-12-22 [facility] [id number] Common 10:40:00 10:40:00 [facility] [address] [facility] 2019-12-15 2019-12-15 [facility] [id number] Common 14:00:00 14:00:00 t [facility] [address] [facility] 2019-09-14 2019-09-14 [facility] [id number] Common 13:20:00 13:20:00 t [facility] [address] [facility] 2019-05-11 2019-05-11 [facility] [id number] Common 13:00:00 13:00:00 t [facility] [address] [facility] 2018-11-11 2018-11-11 [facility] [id number] Common 13:00:00 13:00:00 [facility] [address] [facility] 2018-10-19 2018-10-19 [facility] [id number] Common 08:30:00 08:30:00 t [facility] [address] [facility] 2018-04-22 2018-04-22 [facility] [id number] Common 14:00:00 14:00:00 t [facility] [address] [facility] Results This patient has no known results.
[2022-05-31] MEDS ORDERED: METHYLPREDNISOLONE 125 MG INJ ONE (23:56)
[2022-05-31] MEDS ORDERED: MAGNESIUM SULFATE 1 gm IVPB 1 GM/100 ML BAG IV ONE (23:57)
[2022-05-31] MEDS ORDERED: LEVALBUTEROL 1.25 MG/3 ML NEB ONE (23:57)
[2022-06-01 00:14] LABS: Absolute Lymphocytes (CBC) 2.5 K/uL (0.7-4.9); Hematocrit 51.7 % (39.6-49.0); Lymphocytes % 19.3 % (15.3-44.8); MCV 90.5 fL (80-100); MPV 10.5 fL (7.6-11.3); RBC Red Blood Cell Count 5.72 M/uL (4.33-5.43)
[2022-06-01 00:36] LABS: Potassium 3.5 mmol/L (3.5-5.1); Troponin High Sensitivity 35.4 pg/mL (<58.9)
[2022-06-01 01:43] LABS: Arterial Blood Carboxyhemoglob 4.4 % (0-1.5); Blood Gas Oxyhemoglobin 89.7 % (94-97); Blood O2 Saturation 94.9 % (92-98.5)
[2022-06-01] MEDS ORDERED: CEFTRIAXONE 1000 MG/VIAL ONE (01:52)
[2022-06-01] MEDS ORDERED: LEVALBUTEROL 1.25 MG/3 ML NEB ONE (01:52)
[2022-06-01 01:59] LABS: SARS-CoV-2 Antigen Rapid Res Negative (Negative)
--- NOTE | 2022-06-01 02:30 | EDPHYS ---
Physician Documentation [facility] Name: José Pat Age: 72 yrs Sex: Male : 1950 Arrival Date: 05/31/2022 Time: 23:34 Bed 19 Private MD: ED Physician Denny Vaughan HPI: 05/31 23:41 This 72 yrs old Male presents to ER via EMS with complaints of Shortness Of Breath, jmm Chest Pain. 23:41 The patient has shortness of breath at rest. Onset: The symptoms/episode began/occurred jmm gradually, today. Duration: The symptoms are continuous, and are steadily getting worse. The patient's shortness of breath is aggravated by nothing, is alleviated by nothing. Associated signs and symptoms: Pertinent positives: chest pain, non-productive cough. This is a 72 year old male with a history of chf, copd, dm that presents to the ED with complaints of shortness of breath, cough, wheezing beginning today. patient arrived ems. . Historical: - PMHx: 23:39 CHF; COPD; Diabetes - IDDM; kd3 - Immunization history:: Adult Immunizations up to date. - Social history:: Smoking status: unknown. ROS: 23:41 Constitutional: Negative for fever, chills, and weight loss. jmm 23:41 Cardiovascular: Positive for chest pain. 23:41 Respiratory: Positive for cough, shortness of breath, wheezing. 23:41 All other systems are negative. Exam: 23:41 Constitutional: This is a well developed, well nourished patient who is awake, alert, jmm and in no acute distress. Head/Face: atraumatic. Eyes: EOMI, no conjunctival erythema appreciated ENT: Moist Mucus Membranes Neck: Trachea midline, Supple Chest/axilla: Normal chest wall appearance and motion. 23:41 Abdomen/GI: Non distended Back: Normal ROM Skin: General appearance color normal MS/ Extremity: Moves all extremities, no obvious deformities appreciated, no edema noted to the lower extremities Neuro: Awake and alert Psych: Behavior is normal, Mood is normal, Patient is cooperative and pleasant 23:41 Cardiovascular: Rate: tachycardic, Rhythm: regular. 23:41 Respiratory: moderate respiratory distress is noted, Respirations: labored breathing, that is moderate, Breath sounds: decreased breath sounds, that are moderate. Vital Signs: 23:34 Weight 103.5 kg; Height 5 ft. 8 in. (172.72 cm); Pain 7/10; 3 23:42 BP 103 / 79; Pulse 123; Resp 21; Temp 98.4; Pulse Ox 91% on 2 lpm NC; 3 06/01 00:35 BP 101 / 79; Pulse 129; Resp 22; Pulse Ox 96% on 2 lpm NC; 3 01:37 BP 104 / 58; Pulse 116; Resp 23; Pulse Ox 91% on 4 lpm NC; 3 02:45 BP 97 / 75; Pulse 135; Resp 21; Pulse Ox 94% on 4 lpm NC; [facility] 05/31 23:34 Body Mass Index 34.69 (103.50 kg, 172.72 cm) [facility] MDM: 05/31 23:45 Patient medically screened. [facility] 06/01 01:13 Data reviewed: vital signs, nurses notes. Counseling: I had a detailed discussion with [facility] the patient and/or guardian regarding: the historical points, exam findings, and any diagnostic results supporting the discharge/admit diagnosis, lab results, radiology results, the need for further work-up and treatment in the hospital. ED course: I discussed the patient with Fausto Cochran whom accepted the patient for admission. . 05/31 23:41 Order name: Basic Metabolic Panel; Complete Time: 00:37 [facility] 05/31 23:41 Order name: CBC with Diff; Complete Time: 00:30 [facility] 05/31 23:41 Order name: Troponin HS; Complete Time: 00:37 [facility] 06/01 00:25 Order name: BNP; Complete Time: 14:06 [facility] 06/01 00:25 Order name: Magnesium; Complete Time: 14:06 [facility] 06/01 01:14 Order name: SARS RAPID; Complete Time: 02:14 [facility] 05/31 23:41 Order name: XRAY Chest (1 view) [facility] 06/01 01:19 Order name: Lactate; Complete Time: 02:29 [facility] 06/01 01:19 Order name: Blood Culture Adult (2) [facility] 06/01 01:19 Order name: Procalcitonin; Complete Time: 02:29 [facility] 06/01 01:24 Order name: ABG; Complete Time: 02:14 [facility] 05/31 23:41 Order name: EKG; Complete Time: 23:42 [facility] 05/31 23:41 Order name: Cardiac monitoring; Complete Time: 23:42 [facility] 05/31 23:41 Order name: EKG - Nurse/Tech; Complete Time: 23:42 [facility] 05/31 23:41 Order name: IV Saline Lock; Complete Time: 23:47 [facility] 05/31 23:41 Order name: Labs collected and sent; Complete Time: 00:06 [facility] 05/31 23:41 Order name: O2 Per Protocol; Complete Time: 23:42 [facility] 05/31 23:41 Order name: O2 Sat Monitoring; Complete Time: 23:42 [facility] Administered Medications: 05/31 23:58 Drug: SOLU-Medrol (methylPrednisoLONE) 125 mg Route: IVP; Site: left forearm; [facility] 06/01 02:48 Follow up: Response: No adverse reaction 3 05/31 23:58 Drug: Magnesium Sulfate 1 grams Route: IVPB; Infused Over: 1 hrs; Site: left forearm; [facility] 06/01 02:47 Follow up: Response: No adverse reaction; IV Status: Completed infusion kd3 00:06 Drug: Xopenex (levalbuterol) (3) 1.25 mg Route: Inhalation; kd3 02:05 Drug: Rocephin (cefTRIAXone) 1 grams Route: IV; Rate: calculated rate; Site: right [facility] forearm; 02:46 Follow up: IV Status: Completed infusion kd3 02:05 Drug: Xopenex (levalbuterol) (3) 1.25 mg Route: Inhalation; kd3 02:46 Follow up: Response: Wheezing diminished kd3 02:37 Drug: Zithromax (azithromycin) 500 mg Route: IVPB; Infused Over: 1 hrs; Site: left [facility] forearm; 02:46 Follow up: Response: No adverse reaction; IV Status: Infusion continued kd3 02:37 Drug: Metoprolol 25 mg Route: PO; kd3 02:46 Follow up: Response: No adverse reaction kd3 Disposition Summary: 06/01/22 02:29 Hospitalization Ordered Hospitalization Status: Inpatient Admission la1 Provider: Rl Dobbs Location: Telemetry/MedSurg (Inpatient) la1 Condition: Fair la1 Problem: new la1 Symptoms: have improved la1 Bed/Room Type: Standard la1 Room Assignment: 216(06/01/22 02:34) cg Diagnosis - COPD/ Chronic obstructive pulmonary disease with (acute) exacerbation la1 - Paroxysmal atrial fibrillation la1 Forms: - Medication Reconciliation Form la1 - SBAR form la1 Signatures: Dispatcher [employer] EDJuan José Abbasi PA PA jmm Attema, Lee, TRANSPLANT SURGEON-C TRANSPLANT SURGEON-[place]1 Marielena Ervin RN RN Katerin Hudson RN RN ll3 Betina Daniel RN RN kd3 Corrections: (The following items were deleted from the chart) 02:34 02:29 la1 cg
--- NOTE | 2022-06-01 02:30 | ER ---
Nurse's Notes [facility] Name: José Pat Age: 72 yrs Sex: Male : 1950 Arrival Date: 05/31/2022 Time: 23:34 Bed 19 Private MD: Diagnosis: COPD/ Chronic obstructive pulmonary disease with (acute) exacerbation;Paroxysmal atrial fibrillation Presentation: 05/31 23:34 Chief complaint: EMS states: The patient called EMS for shortness of breath and chest kd3 pain that started this morning. He states he has never felt this pain before. He has a history of AFib and COPD and was reading AFIB on the monitor with a rate in the 160's. pt was given fluids on arrival and his HR improved to 120's. He is non compliant with any medications and hasn't been to the doctor in 4 to 5 years. He received 324 of aspirin en route. Coronavirus screen: Vaccine status: Patient reports being unvaccinated. Pt cannot remember if he was vaccinated. Ebola Screen: No symptoms or risks identified at this time. Initial Sepsis Screen: Does the patient meet any 2 criteria? No. Patient's initial sepsis screen is negative. Does the patient have a suspected source of infection? No. Patient's initial sepsis screen is negative. Risk Assessment: Do you want to hurt yourself or someone else? Patient reports no desire to harm self or others. Onset of symptoms was May 31, 2022. 23:34 Method Of Arrival: EMS: [facility] kd3 23:34 Acuity: KIT 3 kd3 Triage Assessment: 23:39 General: Appears uncomfortable, Behavior is calm, cooperative. Pain: Complains of pain kd3 in chest. Respiratory: Reports shortness of breath at rest Onset: The symptoms/episode began/occurred suddenly, the patient has moderate shortness of breath. Historical: - PMHx: 23:39 CHF; COPD; Diabetes - IDDM; kd3 - Immunization history:: Adult Immunizations up to date. - Social history:: Smoking status: unknown. Screenin:39 Abuse screen: Denies threats or abuse. Denies injuries from another. Nutritional kd3 screening: No deficits noted. Tuberculosis screening: No symptoms or risk factors identified. Fall Risk None identified. Assessment: 23:39 Cardiovascular: Rhythm is sinus tachycardia with PACs. Respiratory: Airway is patent kd3 Trachea midline Respiratory effort is even, Breath sounds with wheezes bilaterally. Vital Signs: 23:34 Weight 103.5 kg; Height 5 ft. 8 in. (172.72 cm); Pain 7/10; kd3 23:42 BP 103 / 79; Pulse 123; Resp 21; Temp 98.4; Pulse Ox 91% on 2 lpm NC; kd3 06/01 00:35 BP 101 / 79; Pulse 129; Resp 22; Pulse Ox 96% on 2 lpm NC; kd3 01:37 BP 104 / 58; Pulse 116; Resp 23; Pulse Ox 91% on 4 lpm NC; kd3 02:45 BP 97 / 75; Pulse 135; Resp 21; Pulse Ox 94% on 4 lpm NC; kd3 05/31 23:34 Body Mass Index 34.69 (103.50 kg, 172.72 cm) kd3 ED Course: 05/31 23:34 Patient arrived in ED. kd3 23:39 Triage completed. kd3 23:39 Arm band placed on right wrist. kd3 23:39 Patient has correct armband on for positive identification. kd3 23:39 No provider procedures requiring assistance completed. kd3 23:41 Betina Daniel, RN is Primary Nurse. kd3 23:43 Placed in gown. Bed in low position. Call light in reach. Side rails up X2. Warm mh5 blanket given. roller checker on. Pulse ox on. NIBP on. 23:44 Maintain EMS IV. Dressing intact. Good blood return noted. Site clean \T\ dry. 5 23:44 EKG done, by ED staff, reviewed by Denny Vaughan MD. 5 23:45 Juan José Raines PA is PHCP. [facility] 23:45 Denny Vaughan MD is Attending Physician. [facility] 06/01 00:06 Basic Metabolic Panel Sent. kd3 00:06 CBC with Diff Sent. kd3 00:06 Troponin HS Sent. kd3 00:16 XRAY Chest (1 view) In Process Unspecified. EDMS 02:29 Rl Dobbs MD is Hospitalizing Provider. la1 02:45 Patient admitted, IV remains in place. kd3 Administered Medications: 05/31 23:58 Drug: SOLU-Medrol (methylPrednisoLONE) 125 mg Route: IVP; Site: left forearm; ll3 07/23 02:48 Follow up: Response: No adverse reaction kd3 05/31 23:58 Drug: Magnesium Sulfate 1 grams Route: IVPB; Infused Over: 1 hrs; Site: left forearm; 3 06/01 02:47 Follow up: Response: No adverse reaction; IV Status: Completed infusion kd3 00:06 Drug: Xopenex (levalbuterol) (3) 1.25 mg Route: Inhalation; kd3 02:05 Drug: Rocephin (cefTRIAXone) 1 grams Route: IV; Rate: calculated rate; Site: right kd3 forearm; 02:46 Follow up: IV Status: Completed infusion kd3 02:05 Drug: Xopenex (levalbuterol) (3) 1.25 mg Route: Inhalation; kd3 02:46 Follow up: Response: Wheezing diminished kd3 02:37 Drug: Zithromax (azithromycin) 500 mg Route: IVPB; Infused Over: 1 hrs; Site: left kd3 forearm; 02:46 Follow up: Response: No adverse reaction; IV Status: Infusion continued kd3 02:37 Drug: Metoprolol 25 mg Route: PO; kd3 02:46 Follow up: Response: No adverse reaction kd3 Medication: 05/31 23:39 VIS not applicable for this client. kd3 Outcome: 06/01 02:29 Decision to Hospitalize by Provider. la1 02:44 Admitted to Med/surg accompanied by tech, room 216, with oxygen, Report called to helen Herrera RN 02:44 Condition: stable 02:44 Discharge instructions given to patient, Instructed on the need for admit, Demonstrated understanding of instructions, follow-up care. 02:47 Patient left the ED. kd3 Signatures: Dispatcher [employer] EDMS Juan José Raines PA PA jmm Attema, Lee, RETAIL GREETER-C RETAIL GREETER-Cla1 Najma Gómez [facility] Katerin Live RN RN 3 Betina Daniel RN RN 3
[2022-06-01] MEDS ORDERED: NA CHLORIDE 0.9% 250 ML ONE (02:38)
[2022-06-01] MEDS ORDERED: AZITHROMYCIN 500 MG INJ IVPB ONE (02:38)
[2022-06-01] MEDS ORDERED: METOPROLOL TAR 25 MG TAB ONE (02:38)
[2022-06-01 02:46] LABS: Magnesium 1.7 mg/dL (1.8-2.4)
[2022-06-01] MEDS ORDERED: ONDANSETRON 4 MG/2 ML VIAL IV PRN (02:56)
[2022-06-01] MEDS ORDERED: ACETAMINOPHEN 500 MG TAB PO PRN (02:56)
--- NOTE | 2022-06-01 02:58 | P.HP ---
Certification for Inpatient Patient admitted to: Inpatient With expected LOS: >2 Midnights Patient will require the following post-hospital care: None Practitioner: I am a practitioner with admitting privileges, knowledge of patient current condition, hospital course, and medical plan of care. Services: Services provided to patient in accordance with Admission requirements found in Title 42 Section 412.3 of the Code of Federal Regulations <Fausto Cochran - Last Filed: 06/01/22 02:53> Patient History Date of Service: 06/01/22 Reason for admission: Pneumonia, COPD exacerbation History of Present Illness: 72-year-old male with history of medical noncomplianceatrial fibrillation on chronic anticoagulant therapy, chronic diastolic congestive heart failure, COPD, tobacco abuse, diabetes mellitus type 2, hypertension and hyperlipidemia presents the emergency department for shortness of breath. He reports that he has not been taking any of his medications at home, he continues to smoke about half a pack per day noticed increasing shortness of breath, chills over the course of last few days. He was dyspneic, tachypneic upon arrival to the emergency department also with significant expiratory wheezing. His labs were significant for a white blood cell count of 13.2 glucose of 290 ABG demonstrated pH of 7.37 PCO2 48.4 PO2 of 78.1 on oxygen patient reports that he wears oxygen at home he is unsure of how many liters. Chest x-ray demonstrated bilateral infiltrates, patient with 3 out of 4 SIRS criteria and source of infection was identified, meets criteria for sepsis his lactate was within normal limits will cover with antibiotics. Patient also with paroxysmal A. fib as well as sinus tachycardia with frequent PACs during her stay in the emergency department seem to coincide with his nebulizer treatments that he was receiving at this time his rate has slowed down to around 110. Upon chart review patient was seen in the hospital last year and placed on Eliquis, low-dose metoprolol. These medications have not been continued. Also discussed CODE STATUS at length with patient he wishes for DNI/DNR. - Past Medical/Surgical History Diabetic: No -: DIVERTICULITIS -: COPD -: A. fib -: Diastolic CHF -: Diabetes mellitus type 2 -: Hypertension -: Hyperlipidemia -: ABD SX-INFECTIONS POCKET OF ABD ORGANS-UNABLE TO SPECIFY AREAS Psychosocial/ Personal History: Patient lives at home with his - Family History Family History: Reviewed- Non-Contributory - Social History Smoking Status: Current every day smoker Counseled patient to stop smoking for: less than 10 minutes Smoking therapy provided: No (Patient declined) Alcohol use: No CD- Drugs: No Caffeine use: Yes Place of Residence: Home <Fausto Cochran Miguel - Last Filed: 06/01/22 02:53> Date of Service: 06/01/22 <Rl Dobbs - Last Filed: 06/01/22 18:53> Allergies No Known Allergies Allergy (Verified 02/27/21 03:43) Home Medications: Apixaban [Eliquis] 5 mg PO BID #30 tablet 03/04/21 Aspirin [Aspirin EC 81 MG] 81 mg PO DAILY #30 tablet.dr 03/04/21 Benzonatate [Tessalon Perle] 200 mg PO TID PRN #30 cap 03/04/21 Metoprolol Tartrate [Lopressor] 25 mg PO BID #30 tab 03/04/21 RX: Albuterol Inhaler [Ventolin Inhaler*] 2 puff IH Q6H PRN #1 hfa.aer.ad 03/04/21 RX: Melatonin 10 mg PO BEDTIME PRN PRN #14 tablet 03/04/21 RX: Tamsulosin [Flomax*] 0.4 mg PO DAILY #30 cap 03/04/21 RX: predniSONE [Prednisone*] 20 mg PO BID #11 tab 03/04/21 Review of Systems 10-point ROS is otherwise unremarkable General: Chills Respiratory: Cough, Dry, Shortness of Breath, SOB with Excertion, Wheezing <Fausto Cochran Jordan Rivera - Last Filed: 06/01/22 02:53> Physical Examination - Physical Exam General: Alert, In no apparent distress, Oriented x3 HEENT: Atraumatic, PERRLA, Mucous membr. moist/pink, EOMI, Sclerae nonicteric Neck: Supple, 2+ carotid pulse no bruit, No LAD, Without JVD or thyroid abnormality Respiratory: Expiratory wheezes, Other (Mild respiratory distress, tachypnea, dyspnea) Cardiovascular: Normal S1 S2, Irregular heart rate/rhythm (Paroxysmal A. fib, sinus tachycardia with frequent PACs) Capillary refill: <2 Seconds Gastrointestinal: Normal bowel sounds, No tenderness Musculoskeletal: No tenderness Integumentary: No rashes Neurological: Normal speech, Normal strength at 5/5 x4 extr, Normal tone, Normal affect - Studies Laboratory Data (last 24 hrs) 06/01/22 00:04: Magnesium 1.7 L 06/01/22 00:04: WBC 13.2 H, Hgb 17.0, Hct 51.7 H, Plt Count 144 L 06/01/22 00:04: Sodium 136, Potassium 3.5, BUN 17, Creatinine 0.83, Glucose 290 H <Fausto Cochran - Last Filed: 06/01/22 02:53> - Studies Laboratory Data (last 24 hrs) 06/01/22 00:04: Magnesium 1.7 L 06/01/22 00:04: WBC 13.2 H, Hgb 17.0, Hct 51.7 H, Plt Count 144 L 06/01/22 00:04: Sodium 136, Potassium 3.5, BUN 17, Creatinine 0.83, Glucose 290 H <Rl Dobbs - Last Filed: 06/01/22 18:53> Assessment and Plan - Plan Assessment: Sepsis secondary to bilateral pneumonia COPD with exacerbation-on home O2 Atrial fibrillation on chronic anticoagulation Chronic diastolic congestive heart failure Diabetes mellitus type 2 with hyperglycemia Hypertension Hyperlipidemia Medical noncompliance Tobacco abuse Plan: Sepsis secondary to bilateral pneumonia: No severe sepsis or septic shock at this time continue antibiotics Rocephin/Zithromax. Pulmonology consulted continue treatment for COPD exacerbation patient wears oxygen at home although he does not have any liters. Incentive spirometry. Counseled patient on need for compliance with medical therapy at home as well as the need to quit smoking. COPD with exacerbation-on home O2: Patient reports he has not been taking any medications at home he has no inhalers or nebulizer treatments although he does wear oxygen reports he feels his breathing has improved significantly since his arrival continue with scheduled nebs, IV steroids, pulmonology consult. Atrial fibrillation on chronic anticoagulation: Chart review shows patient is supposed to be on Eliquis 5 mg p.o. twice daily as well as metoprolol 25 mg p.o. twice daily, these medications have been continued we will continue to monitor patient on telemetry. Chronic diastolic congestive heart failure: Patient does not appear to be significantly overloaded at this time continue other medications he is supposed to be on at home cardiology consulted for assistance with his rate control related to A. fib. Diabetes mellitus type 2 with hyperglycemia: Patient not take any medications at home continue with ACHS Accu-Chek, sliding scale insulin. Will need prescription at discharge. Will obtain A1c. Hypertension: Continue home medications Hyperlipidemia:Continue home medications Medical noncompliance: Counseled patient on need to comply with medical therapy as he has been taking 0 home medications continues to smoke. Tobacco abuse: Addressed patient's need for tobacco cessation patient declined NicoDerm patch. DVT PPX: Continue Eliquis Code status: DNR/DNI Discharge Plan: Home Plan to discharge in: 72 Hours - Advance Directives Does patient have a Living Will: No Does patient have a Durable POA for Healthcare: No - Code Status/Comfort Care Code Status Assessed: Yes (DNR/DNI) Critical Care: No Time Spent Managing Pts Care (In Minutes): 70 <Fausto Cochran - Last Filed: 06/01/22 02:53> Physician Review: Patient Assessed, Agree with Above Assessment and Plan <Rl Dobbs - Last Filed: 06/01/22 18:53>
[2022-06-01 03:34] VITALS: BMI 34.7
[2022-06-01 04:19] LABS: Specific Gravity 1.025 (1.005-1.030); Urine Blood Trace-intact (Negative); Urine Clarity Clear (Clear); Urine Color Yellow (Yellow); Urine Glucose 3+ (Negative); Urine Protein 1+ (Negative); Urine pH 5.5 (5.0-7.0)
[2022-06-01 04:25] LABS: Urine Bilirubin Negative (Negative)
[2022-06-01 04:37] LABS: Transitional Epithelial <5 /HPF (None Seen); Urine Bacteria 20-50 /HPF (<20); Urine Mucus 2+ /HPF (None Seen)
[2022-06-01] MEDS ORDERED: METOPROLOL TAR 25 MG TAB PO SCH (06:00)
[2022-06-01] MEDS: IPRATROPIUM BROM 0.5MG/2.5ML NEB SCH ×3 (06:00→19:50)
[2022-06-01] MEDS: ALBUTEROL 2.5 MG/3 ML NEB SOL NEB SCH ×3 (06:00→19:50)
[2022-06-01] MEDS ORDERED: MAGNESIUM SULFATE 1 gm IVPB 1 GM/100 ML BAG IV ONE (06:27)
[2022-06-01] MEDS ORDERED: POTASSIUM 25 MEQ EFFERV TAB PO ONE (06:28)
[2022-06-01] MEDS ORDERED: PNEUMOCOCCAL VACCINE 0.5 ML IMVAC ONE (08:00)
[2022-06-01] MEDS ORDERED: METHYLPREDNISOLONE 40 MG INJ IV SCH (09:00)
[2022-06-01] MEDS: APIXABAN 5 MG TABLET PO SCH ×2 (09:17→21:00)
[2022-06-01] MEDS: ASPIRIN EC 81 MG TAB PO SCH (09:17)
[2022-06-01] MEDS: INSULIN -REGULAR HUMAN 50 UNIT/0.5 ML ML SQ SCH ×5 (09:17→21:33)
--- NOTE | 2022-06-01 11:00 | P.CNS ---
Date of Consult: 06/01/22 Reason for Consult: COPD exacerbation Chief Complaint: Pneumonia, COPD exacerbation History of Present Illness: Patient is 72 years patient is 72 years of age noncompliant history of COPD heavy smoker metabolic syndrome came in with acute shortness of breath does not take any bronchodilators at home coronavirus negative was found to be hypoxic little hypercapnic questionable pneumonia is currently doing well Allergies No Known Allergies Allergy (Verified 02/27/21 03:43) Home Medications: Albuterol Inhaler [Ventolin Inhaler*] 2 puff IH Q6H PRN #1 hfa.aer.ad 03/04/21 Apixaban [Eliquis] 5 mg PO BID #30 tablet 03/04/21 Aspirin [Aspirin EC 81 MG] 81 mg PO DAILY #30 tablet.dr 03/04/21 Benzonatate [Tessalon Perle] 200 mg PO TID PRN #30 cap 03/04/21 Melatonin 10 mg PO BEDTIME PRN PRN #14 tablet 03/04/21 Metoprolol Tartrate [Lopressor] 25 mg PO BID #30 tab 03/04/21 Tamsulosin [Flomax*] 0.4 mg PO DAILY #30 cap 03/04/21 predniSONE [Prednisone*] 20 mg PO BID #11 tab 03/04/21 - Past Medical/Surgical History Diabetic: Yes -: DIVERTICULITIS -: COPD -: A. fib -: Diastolic CHF -: Diabetes mellitus type 2 -: Hypertension -: Hyperlipidemia -: ABD SX-INFECTIONS POCKET OF ABD ORGANS-UNABLE TO SPECIFY AREAS Psychosocial/ Personal History: Patient lives at home with his - Family History Father Notes: mesothelioma Mother Medical History: Heart disease, Hypertension - Social History Smoking Status: Unknown if ever smoked Alcohol use: No CD- Drugs: No Caffeine use: Yes Place of Residence: Home Review of Systems 10-point ROS is otherwise unremarkable Physical Examination Temp Pulse Resp BP Pulse Ox 97.0 F 113 H 14 113/79 94 06/01/22 08:00 06/01/22 08:00 06/01/22 08:00 06/01/22 08:00 06/01/22 08:00 General: Alert, In no apparent distress, Oriented x3 HEENT: Other Respiratory: Clear to auscultation bilaterally, Diminished Cardiovascular: No edema, Regular rate/rhythm, Normal S1 S2 Gastrointestinal: Normal bowel sounds, Soft and benign Laboratory Data (last 24 hrs) 06/01/22 00:04: Magnesium 1.7 L 06/01/22 00:04: WBC 13.2 H, Hgb 17.0, Hct 51.7 H, Plt Count 144 L 06/01/22 00:04: Sodium 136, Potassium 3.5, BUN 17, Creatinine 0.83, Glucose 290 H - Problems (1) COPD with exacerbation Current Visit: Yes Status: Acute Plan: Patient is 72 years of age admitted with acute onset of shortness of breath is a very heavy smoker very heavy smoker does not use any bronchodilators at home diabetes is out of control patient is fully anticoagulated with Eliquis due to his A. fib his vital signs are stable oxygenation satisfactory white count is minimally elevated resume metformin change to p.o. prednisone continue with bronchodilators evaluate for discharge tomorrow
[2022-06-01] MEDS ORDERED: GLUCAGON 1 MG/VIAL IM PRN (12:46)
[2022-06-01] MEDS ORDERED: INSULIN -REGULAR HUMAN 50 UNIT/0.5 ML ML SQ SCH (12:47)
[2022-06-01] MEDS: ARFORMOTEROL TARTRATE 15 MCG/2 ML VIAL.NEB NEB SCH ×2 (12:51→19:50)
[2022-06-01] MEDS ORDERED: DEXTROSE 10%-WATER 500 ML IV BAG IV PRN (12:53)
[2022-06-01] MEDS ORDERED: INSULIN -REGULAR HUMAN 50 UNIT/0.5 ML ML IV ONE ×2 (13:00→15:44)
[2022-06-01] MEDS: METFORMIN ER 500 MG TAB PO SCH ×2 (13:18→16:04)
[2022-06-01] MEDS ORDERED: AZITHROMYCIN IV 500 MG in NA CHLORIDE 0.9% 250 ML IVPB SCH (21:00)
[2022-06-01] MEDS: CEFTRIAXONE 1,000 MG in NA CHLORIDE 0.9% 50 ML IVPB SCH (21:00)
[2022-06-01] MEDS: predniSONE 20 MG TAB PO SCH (21:00)
[2022-06-01] MEDS: TAMSULOSIN 0.4 MG SR CAP PO SCH (21:01)
[2022-06-02] MEDS: ALBUTEROL 2.5 MG/3 ML NEB SOL NEB SCH ×4 (01:15→19:51)
[2022-06-02] MEDS: IPRATROPIUM BROM 0.5MG/2.5ML NEB SCH ×4 (01:15→19:51)
[2022-06-02 06:13] LABS: Absolute Lymphocytes (CBC) 0.9 K/uL (0.7-4.9); Hematocrit 49.8 % (39.6-49.0); MCV 91.1 fL (80-100); MPV 11.6 fL (7.6-11.3); RBC Red Blood Cell Count 5.47 M/uL (4.33-5.43)
--- NOTE | 2022-06-02 06:23 | EKG ---
Test Date: 2022-06-01 Test Time: 02:20:24 [employer] Operator: SARANYA MEASUREMENT RESULTS: Intervals: Rate: 133 TX: 240 QRSD: 146 QT: 388 QTc: 577 Valier: P: TX: 240 QRS: 263 T: 61 INTERPRETIVE STATEMENTS: Sinus tachycardia with 1st degree AV block with premature atrial complexes Right bundle branch block Inferior infarct, age undetermined Anterior infarct, age undetermined Abnormal ECG Compared to ECG 02/26/2021 11:14:54 First degree AV block now present Myocardial infarct finding still present Electronically Signed On 06-02-22 06:21:56 CDT by Nick Coulter
[2022-06-02 06:41] LABS: Albumin 3.1 g/dL (3.4-5.0); Bilirubin Total 0.4 mg/dL (0.2-1.0); Magnesium 2.2 mg/dL (1.8-2.4); Potassium 4.3 mmol/L (3.5-5.1); Thyroid Stimulating Hormone 0.906 uIU/mL (0.360-3.740)
--- NOTE | 2022-06-02 08:45 | RAD REPORT ---
EXAM DESCRIPTION: CT - Chest For Pe Angio - 06/02/2022 8:32 am CLINICAL HISTORY: rule out PE COMPARISON: CTANGIO CHEST dated 03/31/2014; Chest Single View dated 06/01/2022 TECHNIQUE: Dynamically enhanced axial 3 mm thick images of the chest were obtained during administra tion of <100> mL Isovue 370 IV contrast. Coronal and oblique reconstruction images were generated and reviewed. Exam utilizes a protocol for optimal evaluation of pulmonary arterial tree. Maximum intensity projections 3D imaging was utilized All CT scans are performed using dose optimization technique as appropriate and may include automated exposure control or mA/KV adjustment according to patient size. FINDINGS: Chest Wall: No suspicious thyroid nodules or pathologic lymphadenopathy. Lungs: Centrilobular and paraseptal emphysema. Pleura: No significant effusions or pneumothorax. Mediastinum/deb: Mild right hilar adenopathy which is likely reactive. Reactive size mediastinal lym ph nodes. Pulmonary arteries/Aorta: No filling defect identified. No aortic aneurysm. Heart: No significant pericardial effusion. Cardiomegaly. Pulmonary arteries are enlarged. Upper abdomen: No acute abnormality.Contrast refluxes into the hepatic veins. The adrenal thickening. Bones: No acute abnormality. Bridging osteophytes in the spine. IMPRESSION: Negative for pulmonary embolism. Emphysema. Question pulmonary artery hypertension.
[2022-06-02] MEDS ORDERED: PNEUMOCOCCAL VACCINE 0.5 ML IMVAC ONE (09:00)
[2022-06-02] MEDS: INSULIN -REGULAR HUMAN 50 UNIT/0.5 ML ML SQ SCH ×4 (09:33→21:16)
[2022-06-02] MEDS: predniSONE 20 MG TAB PO SCH ×2 (09:34→21:17)
[2022-06-02] MEDS: ASPIRIN EC 81 MG TAB PO SCH (09:35)
[2022-06-02] MEDS: APIXABAN 5 MG TABLET PO SCH ×2 (09:35→21:17)
[2022-06-02] MEDS: METFORMIN ER 500 MG TAB PO SCH ×2 (09:35→16:16)
--- NOTE | 2022-06-02 09:38 | CON ---
Date of Consultation: 06/01/2022 Reason For Consultation: Atrial fibrillation and shortness of breath and atypical chest pain. History Of Present Illness: Mr. Pat is a 72-year-old white male. He is a do not resuscitate. He has a history of CHF, COPD, diabetes, and chronic atrial fibrillation. As far as his atrial fib rillation is concerned, he is supposed to be on metoprolol and Eliquis. He is also supposed to be ta froy prednisone, Flomax, home oxygen, and inhalers for his severe COPD, but apparently has not been t aking any of his medications for quite some time. He comes in with COPD exacerbation, rapid atrial f ibrillation, was found to have pneumonia. Complains of shortness of breath and chest pain. No palpi tation, no syncope. No fever. No chills. Has had some PND, orthopnea, and pedal edema. Allergies: NONE. Review of Systems: Positive for being a do not resuscitate. Social History: Negative. Family History: Noncontributory. Medications: At home include aspirin, Eliquis, inhalers, metoprolol, Flomax, prednisone, and home ox ygen as stated earlier. He is not taking any of those medicines. Physical Examination: General: He was somnolent when I saw him, short of breath, did not complain of chest pain. Vital Signs: Showed an atrial fibrillation at rate of 126. He was afebrile. Blood pressure was hilario quate. HEENT: Negative. Neck: Supple without any bruit, lymphadenopathy, JVD, or thyromegaly. Chest: Revealed some rales at the bases. Expiratory wheezing. Cardiac: Revealed atrial fibrillation. No murmurs, gallops, or rubs. Abdomen: Obese, otherwise benign. Extremities: Revealed 1+ edema bilaterally to the knees. Skin: Withdrawn intact. Neurologic: He was nonfocal. Pulses were present distally bilaterally. Diagnostic Data: His EKG showed atrial fibrillation, rate of 126, had a normal echocardiogram in . Chest x-ray showed COPD and pneumonia. White count was 13,000. Platelet count was slightly low at 148,000, his glucose was 219. The pO2 was 78, pCO2 was 48, pH was 7.37. Impression And Plan: 1.Atrial fibrillation with rapid ventricular response, on Eliquis and metoprolol. The patient does not take any medications, will need to resume his medication. 2.Chronic obstructive pulmonary disease exacerbation. I discussed the case with Dr. Dobbs. We can certainly switch him from metoprolol to Cardizem or verapamil or just continue the metoprolol for now and see how he does. 3.Pneumonia. 4.Benign prostatic hypertrophy. 5.Home oxygen therapy. 6.Diabetes, poorly controlled. 7.History of congestive heart failure, probably diastolic. Normal echo in 2020. We will recheck hi s echocardiogram on 06/03/2022. If his heart rate remains elevated, we could certainly give him digo kate as well. Continue to follow him. RUPERT/BASSAM Voice ID: [id number] Report ID: [id number]
--- NOTE | 2022-06-02 09:56 | PN ---
Date of Progress Note: 06/02/2022 Mr. Pat was admitted with COPD exacerbation, pneumonia, atrial fibrillation. History of smiley l echo in 2020. Today, he remains in atrial fibrillation, his rate is about 90. He has improved sin ce yesterday. His shortness of breath has improved. His edema improved. Examination does show some rales and expiratory wheezing. He is on aspirin, Eliquis, inhalers, antibiotics, metoprolol, Flomax , and prednisone. Echocardiogram is pending for tomorrow. Dr. Dobbs discussed possibly switching hi m from metoprolol to verapamil or Cardizem, which is certainly an option for now. We will continue p resent regimen. RUPERT/BASSAM Voice ID: [id number] Report ID: [id number]
[2022-06-02] MEDS: ARFORMOTEROL TARTRATE 15 MCG/2 ML VIAL.NEB NEB SCH ×2 (13:04→19:51)
--- NOTE | 2022-06-02 14:48 | P.PN ---
Subjective Date of Service: 06/02/22 Chief Complaint: Pneumonia, COPD exacerbation Subjective: No new changes He reports that he continues to have shortness of breath. His symptoms are worse with exertion. He went in atrial flutter/fibrillation with rapid ventricular response early this afternoon. He was transferred to the ICU for diltiazem drip. Review of Systems 10-point ROS is otherwise unremarkable Respiratory: Cough, Shortness of Breath, SOB with Excertion Cardiovascular: Palpitations Physical Examination - Vital Signs Temperature: 97.2 F Blood Pressure: 109/68 Pulse: 107 Respirations: 18 Pulse Ox (%): 92 - Physical Exam General: Alert, In no apparent distress, Oriented x3 HEENT: Atraumatic, PERRLA, Mucous membr. moist/pink, EOMI, Sclerae nonicteric Neck: Supple, 2+ carotid pulse no bruit Respiratory: Diminished, Crackles/rales Cardiovascular: Regular rate/rhythm, Normal S1 S2, No gallops, No rubs, No murmurs, Edema (trace) Gastrointestinal: Normal bowel sounds, Soft and benign, Non-distended, No tenderness, No rebound, No guarding Musculoskeletal: No clubbing Integumentary: No rashes Neurological: Normal gait, Normal affect - Studies Microbiology Data (last 24 hrs): 06/01/22 01:49 Blood - Blood Anaerobic Blood Culture - Final Assessment And Plan - Plan # Sepsis likely secondary to Bilateral Pneumonia He met SIRS criteria based on HR > 90 bpm and RR > 20 breaths/min, WBC > 12,000, and the suspected source is pneumonia. - Sepsis order set was initiated - Initial Lactate was 1.2 - Blood cultures drawn before antibiotics - Broad spectrum antibiotics started: Ceftriaxone + Azithromycin - In regards to fluids: - 30 mL/kg of IV fluids was not administered given SBP > 90, MAP > 65, lactic acid < 4 # Acute Chronic Obstructive Pulmonary Disease Exacerbation # Chronic Respiratory Failure secondary to COPD on home oxygen [unknown dose] (with acute exacerbation?) # Pulmonary Arterial Hypertension - Consulted Pulmonary Medicine and Dr. Fong following - recommendations appreciated - Steroids and bronchodilators per Pulm - Consulted Respiratory Therapy - Supplemental oxygen to maintain SpO2 > 92% - Encouraged incentive spirometry # Paroxysmal Atrial Fibrillation/Flutter with Rapid Ventricular Response Seems to have been triggered by bronchodilator treatments. His [id number] = 4 (CHF=1, HTN=1, DM=1, 65-74=1), which warrants anticoagulation. - Evaluation thus far: - Troponin = 35.4 - EKG = atrial flutter with 2:1 AV block - Potassium = 4.3, Magnesium = 2.2 - Target K> 4, Mg >2 - TSH = 0.906 - NT-Pro BNP = 1,406 - Transthoracic echocardiogram ordered - For rate control: - Avoiding beta-blockers given COPD exacerbation - Gave diltiazem 5 mg IV x 3, with minimal response - transferred to ICU for diltiazem drip - If diltiazem dose not work after 1-2 hours, plan to start amiodarone drip - For anticoagulation: - Continue apixaban - Consulted Cardiology and spoke with Dr. Coulter, who agrees with the above plan # Chronic Compensated Diastolic Congestive Heart Failure - Does not appear grossly hypervolemic - Continue PO furosemide # Hyperglycemia in Type II Diabetes Mellitus - Hgb A1c = 11.1 % - Correction scale insulin ordered # Hypertension # Hyperlipidemia - Continue home medications # Tobacco Use Disorder - Extensive tobacco cessation counseling provided Rl Dobbs M.D. Physician Review: Patient Assessed, Agree with Above Assessment and Plan
[2022-06-02] MEDS ORDERED: DILTIAZEM HCL 125 MG/25 ML VIAL IVP ONE (15:05)
[2022-06-02] MEDS: DILTIAZEM HCL 125 MG/25 ML VIAL IVP SCH ×3 (15:16→15:54)
[2022-06-02] MEDS ORDERED: AMIODARONE HCL 150 MG in D5W 100 ML IV STA (16:15)
[2022-06-02] MEDS ORDERED: AMIODARONE HCL 900 MG in Dextrose 5%-Water 482 ML IV SCH (17:00)
[2022-06-02] MEDS: DILTIAZEM INJ 125 MG in NA CHLORIDE 0.9% 100 ML IV SCH (17:00)
[2022-06-02] MEDS: CEFTRIAXONE 1,000 MG in NA CHLORIDE 0.9% 50 ML IVPB SCH (21:16)
[2022-06-02] MEDS: TAMSULOSIN 0.4 MG SR CAP PO SCH (21:17)
[2022-06-03] MEDS: IPRATROPIUM BROM 0.5MG/2.5ML NEB SCH ×4 (01:07→20:00)
[2022-06-03] MEDS: ALBUTEROL 2.5 MG/3 ML NEB SOL NEB SCH ×4 (01:07→20:00)
[2022-06-03] MEDS: DILTIAZEM INJ 125 MG in NA CHLORIDE 0.9% 100 ML IV SCH ×2 (01:52→12:24)
[2022-06-03 05:03] LABS: Absolute Lymphocytes (CBC) 1.3 K/uL (0.7-4.9); Hematocrit 48.8 % (39.6-49.0); Lymphocytes % 6.5 % (15.3-44.8); MCV 90.1 fL (80-100); MPV 10.9 fL (7.6-11.3); RBC Red Blood Cell Count 5.41 M/uL (4.33-5.43)
[2022-06-03 05:22] LABS: Bilirubin Total 0.6 mg/dL (0.2-1.0); Magnesium 1.8 mg/dL (1.8-2.4); Potassium 4.5 mmol/L (3.5-5.1); Protein, Total 6.6 g/dL (6.4-8.2)
[2022-06-03] MEDS ORDERED: MAGNESIUM SULFATE 1 gm IVPB 1 GM/100 ML BAG IV ONE (06:11)
[2022-06-03] MEDS: ARFORMOTEROL TARTRATE 15 MCG/2 ML VIAL.NEB NEB SCH ×2 (08:00→20:00)
[2022-06-03] MEDS: ASPIRIN EC 81 MG TAB PO SCH (08:46)
[2022-06-03] MEDS: predniSONE 20 MG TAB PO SCH ×2 (08:47→20:30)
[2022-06-03] MEDS: INSULIN -REGULAR HUMAN 50 UNIT/0.5 ML ML SQ SCH ×4 (08:47→20:32)
[2022-06-03] MEDS: APIXABAN 5 MG TABLET PO SCH ×2 (08:47→20:32)
[2022-06-03] MEDS: METFORMIN ER 500 MG TAB PO SCH ×2 (08:53→17:22)
[2022-06-03] MEDS ORDERED: METHYLPREDNISOLONE 125 MG INJ IV SCH (09:00)
--- NOTE | 2022-06-03 09:27 | EKG ---
Test Date: 2022-06-02 Test Time: 14:20:32 Plastic Technician: CASEY Tran MEASUREMENT RESULTS: Intervals: Rate: 150 [place]: 96 QRSD: 134 QT: 344 QTc: 543 [place]: P: [place]: 96 QRS: -82 T: 43 INTERPRETIVE STATEMENTS: Sinus tachycardia with short OH with fusion complexes Left axis deviation Right bundle branch block Inferior infarct, age undetermined Anterior infarct, age undetermined Abnormal ECG Compared to ECG 06/01/2022 02:20:24 Fusion complex(es) now present Short OH interval now present Left-axis deviation now present Atrial premature complex(es) no longer present First degree AV block no longer present Myocardial infarct finding still present Electronically Signed On 06-03-22 09:24:52 CDT by Nick Coulter
--- NOTE | 2022-06-03 09:31 | EKG ---
Test Date: 2022-05-31 Test Time: 23:36:52 Facialist: RAYMUNDO MEASUREMENT RESULTS: Intervals: Rate: 125 [place]: 200 QRSD: 138 QT: 320 QTc: 461 [place]: P: [place]: 200 QRS: 268 T: 71 INTERPRETIVE STATEMENTS: Sinus tachycardia with premature atrial complexes Right bundle branch block Inferior infarct, age undetermined Anterior infarct, age undetermined Abnormal ECG Compared to ECG 02/26/2021 11:14:54 No significant changes Electronically Signed On 06-03-22 09:25:14 CDT by Nick Coulter
--- NOTE | 2022-06-03 09:48 | ECHO ---
HEIGHT: 5 ft 8 in WEIGHT: 228 lb 0 oz DATE OF STUDY: 06/03/[address]: Fausto Cochran NP 2-DIMENSIONAL: YES M.MODE: YES DOPPLER: YES COLOR FLOW: YES TDS: PORTABLE: DEFINITY: BUBBLE STUDY: DIAGNOSIS: ATRIAL FIBRILLTION, CONGESTIVE HEART FAILURE CARDIAC HISTORY: CATHERIZATION: SURGERY: PROSTHETIC VALVE: PACEMAKER: MEASUREMENTS (cm) DIASTOLIC (NORMALS) SYSTOLIC (NORMALS) IVSd 1.3 (0.6-1.2) LA Diam 4.0 (1.9-4.0) LVEF 50-55% LVIDd 4.3 (3.5-5.7) LVIDs 3.7 (2.0-3.5) %FS % LVPWd 1.3 (0.6-1.2) Ao Diam 3.0 (2.0-3.7) 2 DIMENSIONAL ASSESSMENT: RIGHT ATRIUM: NORMAL LEFT ATRIUM: NORMAL RIGHT VENTRICLE: NORMAL LEFT VENTRICLE: LEFT VENTRICULAR HYPERTROPHY TRICUSPID VALVE: NORMAL MITRAL VALVE: MITRAL ANNULAR CALCIFICATION PULMONIC VALVE: NORMAL AORTIC VALVE: SCLEROSIS PERICARDIAL EFFUSION: NONE AORTIC ROOT: NORMAL LEFT VENTRICULAR WALL MOTION: DIASTOLIC DYSFUNCTION. DOPPLER/COLOR FLOW: MILD TRICUSPID REGURGITATION. COMMENTS: DIASTOLIC DYSFUNCTION. NORMAL EJECTION FRACTION. ATRIAL FIBRILLATION. MILD TRICUSPID REGURGITATION. MILD PULMONARY HYPERTENSION. MITRAL ANNULAR CALCIFICATION. AORTIC SCLEROSIS. NO STENOSIS. TECHNOLOGIST: OG PALAFOX
[2022-06-03] MEDS ORDERED: DIGOXIN 0.25 MG/ML AMP IV ONE ×2 (10:06→16:30)
--- NOTE | 2022-06-03 11:11 | RAD REPORT ---
EXAM DESCRIPTION: RAD - Chest Single View - 06/01/2022 12:14 am CLINICAL HISTORY: 2 years Male, CHEST PAIN COMPARISON: Chest radiograph dated 02/26/2021 FINDINGS: Bilateral interstitial opacities No pleural effusion. No pneumothorax. Cardiomediastinal silhouette is within normal limits. No acute osseous abnormality. IMPRESSION: Positive for pulmonary opacities. Differential diagnosis includes viral infections and c hronic lung changes. Electronically signed by: Georges Lane DO 06/01/2022 12:59 AM CDT Due to temporary technical issues with the PACS/Fluency reporting system, reports are being signed by the in house radiologists without review as a courtesy to insure prompt reporting. The interpreting radiologist is fully responsible for the content of the report.
--- NOTE | 2022-06-03 11:18 | P.PN ---
Subjective Date of Service: 06/03/22 Chief Complaint: Pneumonia, COPD exacerbation Seen this morning on ICU rounds. He appears comfortable. He was fairly rate- controlled overnight on diltiazem drip. He had a brief episode of RVR when ambulating, for which Cardiology has given him a digoxin load. He denies any current complaints this morning. Review of Systems 10-point ROS is otherwise unremarkable Respiratory: Cough, SOB with Excertion Cardiovascular: Palpitations Physical Examination - Vital Signs Temperature: 97.2 F Blood Pressure: 107/64 Pulse: 94 Respirations: 18 Pulse Ox (%): 90 - Studies Microbiology Data (last 24 hrs): 06/01/22 01:49 Blood - Blood Anaerobic Blood Culture - Final Assessment And Plan - Plan - Physical Exam General: Alert, In no apparent distress, Oriented x3 HEENT: Atraumatic, PERRLA, Mucous membr. moist/pink, EOMI, Sclerae nonicteric Neck: Supple, 2+ carotid pulse no bruit Respiratory: Diminished, Crackles/rales Cardiovascular: Regular rate/rhythm, Normal S1 S2, No gallops, No rubs, No m urmurs, Edema (trace) Gastrointestinal: Normal bowel sounds, Soft and benign, Non-distended, No tenderness, No rebound, No guarding Musculoskeletal: No clubbing Integumentary: No rashes Neurological: Normal gait, Normal affect ASSESSMENT/PLAN: # Sepsis likely secondary to Bilateral Pneumonia He met SIRS criteria based on HR > 90 bpm and RR > 20 breaths/min, WBC > 12,000, and the suspected source is pneumonia. - Sepsis order set was initiated - Initial Lactate was 1.2 - Blood cultures drawn before antibiotics - Broad spectrum antibiotics started: Ceftriaxone + Azithromycin - In regards to fluids: - 30 mL/kg of IV fluids was not administered given SBP > 90, MAP > 65, lactic acid < 4 # Acute Chronic Obstructive Pulmonary Disease Exacerbation # Chronic Respiratory Failure secondary to COPD on home oxygen [unknown dose] (with acute exacerbation?) # Pulmonary Arterial Hypertension - Consulted Pulmonary Medicine and Dr. Fong following - recommendations appreciated - Steroids and bronchodilators per Pulm - Consulted Respiratory Therapy - Supplemental oxygen to maintain SpO2 > 92% - Encouraged incentive spirometry # Paroxysmal Atrial Fibrillation/Flutter with Rapid Ventricular Response Seems to have been triggered by bronchodilator treatments. His [id number] = 4 (CHF=1, HTN=1, DM=1, 65-74=1), which warrants anticoagulation. - Evaluation thus far: - Troponin = 35.4 - EKG = atrial flutter with 2:1 AV block - Potassium = 4.3, Magnesium = 2.2 - Target K> 4, Mg >2 - TSH = 0.906 - NT-Pro BNP = 1,406 - Transthoracic echocardiogram ordered - For rate control: - On diltiazem drip, and s/p digoxin load this morning - Currently rate-controlled, plan to start PO diltiazem and when off of drip today - For anticoagulation: - Continue apixaban - Consulted Cardiology and spoke with Dr. Coulter, who agrees with the above plan # Chronic Compensated Diastolic Congestive Heart Failure - Does not appear grossly hypervolemic - Continue PO furosemide # Hyperglycemia in Type II Diabetes Mellitus - Hgb A1c = 11.1 % - Correction scale insulin ordered # Hypertension # Hyperlipidemia - Continue home medications # Tobacco Use Disorder - Extensive tobacco cessation counseling provided Rl Dobbs M.D. Physician Review: Patient Assessed, Agree with Above Assessment and Plan
[2022-06-03] MEDS: DILTIAZEM HCL 60 MG TAB PO SCH ×2 (11:49→18:21)
--- NOTE | 2022-06-03 11:57 | PN ---
Date of Progress Note: 06/03/2022 Mr. Pat went into atrial flutter yesterday, 2:1 conduction, rate of 150, started on IV Cardize m drip yesterday. He is on anticoagulation. Echocardiogram today showed an ejection fraction of 50% to 55% with some diastolic dysfunction. Today, his heart rate is in the 90s. I think we can switch him to Cardizem 60 mg p.o. t.i.d., use IV digoxin and on IV metoprolol on an as-needed basis. If hi s heart rate remains high with that therapy, then we will consider cardioversion. Continue other reg imen otherwise. RUPERT/BASSAM Voice ID: [id number] Report ID: [id number]
[2022-06-03] MEDS: TAMSULOSIN 0.4 MG SR CAP PO SCH (20:30)
[2022-06-03] MEDS: CEFTRIAXONE 1,000 MG in NA CHLORIDE 0.9% 50 ML IVPB SCH (20:33)
[2022-06-04] MEDS: ALBUTEROL 2.5 MG/3 ML NEB SOL NEB SCH ×4 (02:00→20:00)
[2022-06-04] MEDS: IPRATROPIUM BROM 0.5MG/2.5ML NEB SCH ×4 (02:29→20:00)
[2022-06-04] MEDS: DILTIAZEM HCL 60 MG TAB PO SCH ×3 (04:46→18:08)
[2022-06-04 05:17] LABS: Absolute Lymphocytes (CBC) 1.1 K/uL (0.7-4.9); Hematocrit 49.7 % (39.6-49.0); Lymphocytes % 6.9 % (15.3-44.8); MPV 11.3 fL (7.6-11.3); RBC Red Blood Cell Count 5.52 M/uL (4.33-5.43)
[2022-06-04 05:30] LABS: Albumin 3.2 g/dL (3.4-5.0); Bilirubin Total 0.8 mg/dL (0.2-1.0); Potassium 5.2 mmol/L (3.5-5.1)
[2022-06-04] MEDS: ARFORMOTEROL TARTRATE 15 MCG/2 ML VIAL.NEB NEB SCH ×2 (08:00→20:00)
[2022-06-04] MEDS: APIXABAN 5 MG TABLET PO SCH ×2 (08:05→21:12)
[2022-06-04] MEDS: ASPIRIN EC 81 MG TAB PO SCH (08:05)
[2022-06-04] MEDS: METFORMIN ER 500 MG TAB PO SCH ×2 (08:05→18:07)
[2022-06-04] MEDS: predniSONE 20 MG TAB PO SCH ×2 (08:05→21:12)
[2022-06-04] MEDS: INSULIN -REGULAR HUMAN 50 UNIT/0.5 ML ML SQ SCH ×4 (08:05→21:13)
[2022-06-04] MEDS: METOPROLOL TAR 25 MG TAB PO SCH ×2 (09:54→18:08)
[2022-06-04] MEDS ORDERED: DIGOXIN 0.25 MG TABLET PO ONE (10:00)
--- NOTE | 2022-06-04 10:08 | PN ---
Date of Progress Note: 06/03/2022 We have been following for Mr. Pat for acute on chronic diastolic congestive heart failure. E chocardiogram showed normal ejection fraction, decreased left ventricular compliance. He has had atr ial flutter and it was improved. DICTATION ENDS HERE. KAREN Voice ID: [id number] Report ID: [id number]
--- NOTE | 2022-06-04 10:34 | P.PN ---
Subjective Date of Service: 06/04/22 Chief Complaint: Pneumonia, COPD exacerbation Subjective: No new changes, Improving Physical Examination - Vital Signs Temperature: 97.8 F Blood Pressure: 136/85 Pulse: 130 Respirations: 20 Pulse Ox (%): 93 - Physical Exam General: Alert, Oriented x3 HEENT: Atraumatic, Normocephalic Cardiovascular: Regular rate/rhythm, Normal S1 S2 Gastrointestinal: Soft and benign Neurological: Normal speech Assessment And Plan - Plan ASSESSMENT/PLAN: # Sepsis likely secondary to Bilateral Pneumonia No other significant source of sepsis at this time. Will continue management for pneumonia pending finalization of cultures # Acute Chronic Obstructive Pulmonary Disease Exacerbation # Chronic Respiratory Failure secondary to COPD on home oxygen [unknown dose] (with acute exacerbation?) # Pulmonary Arterial Hypertension - Consulted Pulmonary Medicine and Dr. Fong following - recommendations appreciated - Steroids and bronchodilators per Pulm - Consulted Respiratory Therapy - Supplemental oxygen to maintain SpO2 > 92% - Encouraged incentive spirometry # Paroxysmal Atrial Fibrillation/Flutter with Rapid Ventricular Response Seems to have been triggered by bronchodilator treatments. His [id number] = 4 (CHF=1, HTN=1, DM=1, 65-74=1), which warrants anticoagulation. - Evaluation thus far: - Troponin = 35.4 - EKG = atrial flutter with 2:1 AV block - Potassium = 4.3, Magnesium = 2.2 - Target K> 4, Mg >2 - TSH = 0.906 - NT-Pro BNP = 1,406 - Transthoracic echocardiogram ordered - For rate control: - On diltiazem and metoprolol by mouth. - we will follow on tlemetry. - Cardiology planning for cardioversion in am. # Chronic Compensated Diastolic Congestive Heart Failure - Continue PO furosemide # Hyperglycemia in Type II Diabetes Mellitus - Hgb A1c = 11.1 % - Correction scale insulin to be continued with carb restricted diet. # Hypertension # Hyperlipidemia - Continue home medications # Tobacco Use Disorder - Extensive tobacco cessation counseling provided Physician Review: Patient Assessed, Agree with Above Assessment and Plan
[2022-06-04] MEDS: CEFTRIAXONE 1,000 MG in NA CHLORIDE 0.9% 50 ML IVPB SCH (21:11)
[2022-06-04] MEDS: TAMSULOSIN 0.4 MG SR CAP PO SCH (21:12)
[2022-06-05] MEDS: IPRATROPIUM BROM 0.5MG/2.5ML NEB SCH ×4 (01:45→21:00)
[2022-06-05] MEDS: ALBUTEROL 2.5 MG/3 ML NEB SOL NEB SCH ×4 (02:00→21:00)
[2022-06-05] MEDS: DILTIAZEM HCL 60 MG TAB PO SCH (02:55)
[2022-06-05 04:37] LABS: Potassium 5.3 mmol/L (3.5-5.1)
[2022-06-05 04:41] LABS: Absolute Lymphocytes (CBC) 0.8 K/uL (0.7-4.9); Hematocrit 51.1 % (39.6-49.0); Lymphocytes % 5.2 % (15.3-44.8); MCV 91.8 fL (80-100); MPV 11.2 fL (7.6-11.3); RBC Red Blood Cell Count 5.56 M/uL (4.33-5.43)
[2022-06-05 04:47] LABS: Albumin 3.2 g/dL (3.4-5.0); Bilirubin Total 0.7 mg/dL (0.2-1.0); Protein, Total 6.9 g/dL (6.4-8.2)
[2022-06-05] MEDS: METOPROLOL TAR 25 MG TAB PO SCH (06:48)
[2022-06-05] MEDS: ARFORMOTEROL TARTRATE 15 MCG/2 ML VIAL.NEB NEB SCH ×2 (07:01→21:00)
[2022-06-05] MEDS ORDERED: FENTANYL CITR 100 MCG/2 ML ONE (07:50)
[2022-06-05] MEDS ORDERED: MIDAZOLAM HCL 10 ML ONE (07:50)
[2022-06-05] MEDS ORDERED: ATROPINE SULF 1 MG/10 ML SYR IV ONE (07:50)
[2022-06-05] MEDS ORDERED: METOPROLOL TARTRATE 5 MG/5 ML INJ IV ONE (07:50)
[2022-06-05] MEDS ORDERED: MIDAZOLAM HCL 2 MG/2 ML INJ ONE (07:50)
[2022-06-05] MEDS ORDERED: FLUMAZENIL 0.1 MG/ML (5 mL VIAL) IV ONE (08:11)
[2022-06-05] MEDS ORDERED: NA CHLORIDE 0.9% 500 ML ONE (08:17)
[2022-06-05] MEDS: ASPIRIN EC 81 MG TAB PO SCH (10:10)
[2022-06-05] MEDS: INSULIN -REGULAR HUMAN 50 UNIT/0.5 ML ML SQ SCH ×4 (10:10→20:57)
[2022-06-05] MEDS: predniSONE 20 MG TAB PO SCH ×2 (10:10→20:57)
[2022-06-05] MEDS: METFORMIN ER 500 MG TAB PO SCH ×2 (10:10→16:29)
[2022-06-05] MEDS: APIXABAN 5 MG TABLET PO SCH ×2 (10:13→20:57)
[2022-06-05] MEDS: SOTALOL HCL 80 MG TAB PO SCH ×2 (13:12→17:18)
--- NOTE | 2022-06-05 16:31 | EKG ---
Test Date: 2022-06-05 Test Time: 08:57:06 Straightening Press Operator: TANNA MEASUREMENT RESULTS: Intervals: Rate: 93 HI: 240 QRSD: 148 QT: 422 QTc: 524 [place]: P: 52 HI: 240 QRS: -88 T: 62 INTERPRETIVE STATEMENTS: Sinus rhythm with sinus arrhythmia with 1st degree AV block Left axis deviation Right bundle branch block Inferior infarct, age undetermined Anteroseptal infarct, age undetermined Abnormal ECG Compared to ECG 06/02/2022 14:20:32 First degree AV block now present Sinus tachycardia no longer present Fusion complex(es) no longer present Short HI interval no longer present Myocardial infarct finding still present Electronically Signed On 06-05-22 16:30:22 CDT by Nick Coulter
--- NOTE | 2022-06-05 16:31 | EKG ---
Test Date: 2022-06-05 Test Time: 14:40:48 Healthcare Corporate Account Director: TANNA MEASUREMENT RESULTS: Intervals: Rate: 116 [place]: QRSD: 140 QT: 330 QTc: 458 [place]: P: [place]: QRS: -88 T: 84 INTERPRETIVE STATEMENTS: Atrial fibrillation with rapid ventricular response Left axis deviation Right bundle branch block Inferior infarct, age undetermined Anterior infarct, age undetermined Abnormal ECG Compared to ECG 06/05/2022 08:57:06 Sinus rhythm no longer present Sinus arrhythmia no longer present First degree AV block no longer present Myocardial infarct finding still present Electronically Signed On 06-05-22 16:30:16 CDT by Nick Coulter
--- NOTE | 2022-06-05 17:04 | P.PN ---
Subjective Date of Service: 06/05/22 Chief Complaint: Pneumonia, COPD exacerbation Subjective: No new changes (still had episode of rapid heart beat despite cardioversion today.) Physical Examination - Vital Signs Temperature: 97.4 F Blood Pressure: 140/73 Pulse: 77 Respirations: 18 Pulse Ox (%): 93 - Physical Exam General: Alert, Oriented x3 HEENT: Atraumatic, Normocephalic Neck: Supple Respiratory: Normal air movement Cardiovascular: Regular rate/rhythm, Normal S1 S2 Assessment And Plan - Plan ASSESSMENT/PLAN: # Sepsis likely secondary to Bilateral Pneumonia No other significant source of sepsis at this time. Will continue management for pneumonia pending finalization of cultures # Acute Chronic Obstructive Pulmonary Disease Exacerbation # Chronic Respiratory Failure secondary to COPD on home oxygen [unknown dose] (with acute exacerbation?) # Pulmonary Arterial Hypertension - Consulted Pulmonary Medicine and Dr. Fong following - recommendations appreciated - Steroids and bronchodilators per Pulm - Consulted Respiratory Therapy - Supplemental oxygen to maintain SpO2 > 92% - Encouraged incentive spirometry # Paroxysmal Atrial Fibrillation/Flutter with Rapid Ventricular Response Seems to have been triggered by bronchodilator treatments. His [id number] = 4 (CHF=1, HTN=1, DM=1, 65-74=1), which warrants anticoagulation. - Evaluation thus far: - Troponin = 35.4 - EKG = atrial flutter with 2:1 AV block - Potassium = 4.3, Magnesium = 2.2 - Target K> 4, Mg >2 - TSH = 0.906 - NT-Pro BNP = 1,406 - Transthoracic echocardiogram ordered - For rate control: -he had sotalol 80mg PO BID started by cardiology today after cardioversion -we will follow his heart rate closely. # Chronic Compensated Diastolic Congestive Heart Failure - Continue PO furosemide # Hyperglycemia in Type II Diabetes Mellitus - Hgb A1c = 11.1 % - Correction scale insulin to be continued with carb restricted diet. # Hypertension # Hyperlipidemia - Continue home medications # Tobacco Use Disorder - Extensive tobacco cessation counseling provided Physician Review: Patient Assessed, Agree with Above Assessment and Plan
[2022-06-05] MEDS: CEFTRIAXONE 1,000 MG in NA CHLORIDE 0.9% 50 ML IVPB SCH (20:56)
[2022-06-05] MEDS: TAMSULOSIN 0.4 MG SR CAP PO SCH (20:57)
[2022-06-06] MEDS: ALBUTEROL 2.5 MG/3 ML NEB SOL NEB SCH ×2 (01:55→08:00)
[2022-06-06] MEDS: IPRATROPIUM BROM 0.5MG/2.5ML NEB SCH ×2 (01:55→08:00)
[2022-06-06] MEDS ORDERED: VANCOMYCIN 1.75 GM in NA CHLORIDE 0.9% 500 ML IVPB SCH ×2 (03:00→16:00)
[2022-06-06] MEDS ORDERED: VANCOMYCIN 1 GM in NA CHLORIDE 0.9% 250 ML IVPB SCH (03:00)
[2022-06-06] MEDS ORDERED: VANCOMYCIN 1 GM/VIAL ONE (04:05)
[2022-06-06] MEDS ORDERED: NA CHLORIDE 0.9% 500 ML ONE (04:05)
[2022-06-06 05:21] LABS: Potassium 4.8 mmol/L (3.5-5.1)
[2022-06-06] MEDS: SOTALOL HCL 80 MG TAB PO SCH (06:42)
[2022-06-06] MEDS: ARFORMOTEROL TARTRATE 15 MCG/2 ML VIAL.NEB NEB SCH (08:00)
[2022-06-06] MEDS: APIXABAN 5 MG TABLET PO SCH (08:40)
[2022-06-06] MEDS: ASPIRIN EC 81 MG TAB PO SCH (08:40)
[2022-06-06] MEDS: INSULIN -REGULAR HUMAN 50 UNIT/0.5 ML ML SQ SCH (08:40)
[2022-06-06] MEDS: METFORMIN ER 500 MG TAB PO SCH (08:40)
[2022-06-06] MEDS: predniSONE 20 MG TAB PO SCH (08:40)
[2022-06-06 09:11] VITALS: O2SAT 94
[2022-06-06] MEDS ORDERED: DULERA 200/5 (MOMETASONE/FORMOTEROL) INHALER IH SCH (09:47)
[2022-06-06 12:15] VITALS: BP 105/63; TEMP 97.8
--- NOTE | 2022-06-06 13:14 | P.DS ---
Admission Date: 06/01/22 Discharge Date: 06/06/22 Disposition: ROUTINE DISCHARGE Discharge Condition: FAIR Reason for Admission: Pneumonia, COPD exacerbation - Problems (1) COPD with exacerbation Current Visit: Yes Status: Acute Brief History of Present Illness: Patient is 72 years patient is 72 years of age noncompliant history of COPD heavy smoker metabolic syndrome came in with acute shortness of breath does not take any bronchodilators at home coronavirus negative was found to be hypoxic little hypercapnic questionable pneumonia is currently doing well Hospital Course: Patient is 72 years of age admitted with COPD exacerbation developed atrial fibrillation and was cardioverted that was unsuccessful does not use any bronchodilators at home continues to smoke has oxygen echocardiogram showed diastolic dysfunction at the time of discharge he was alert oriented responsive cooperative chest is clear is stable to be discharged discussed with cardiology to go home on Betapace and continue with his Eliquis also prescribed some steroids and an inhaler to use he will need outpatient evaluation for his COPD Vital Signs/Physical Exam: Temp Pulse Resp BP Pulse Ox 97.8 F 106 H 18 105/63 100 06/06/22 12:00 06/06/22 12:00 06/06/22 12:00 06/06/22 12:00 06/06/22 12:00 Laboratory Data at Discharge: WBC 15.6 K/uL (4.3-10.9) H 06/05/22 03:33 Hgb 16.7 g/dL (13.6-17.9) 06/05/22 03:33 Hct 51.1 % (39.6-49.0) H 06/05/22 03:33 Plt Count 156 K/uL (152-406) 06/05/22 03:33 Sodium 134 mmol/L (136-145) L 06/06/22 04:57 Potassium 4.8 mmol/L (3.5-5.1) 06/06/22 04:57 BUN 18 mg/dL (7-18) 06/06/22 04:57 Creatinine 0.76 mg/dL (0.55-1.3) 06/06/22 04:57 Glucose 266 mg/dL (74-106) H 06/06/22 04:57 Magnesium 2.0 mg/dL (1.8-2.4) 06/05/22 03:33 Total Bilirubin 0.7 mg/dL (0.2-1.0) 06/05/22 03:33 AST 15 U/L (15-37) 06/05/22 03:33 ALT 38 U/L (12-78) 06/05/22 03:33 Alkaline Phosphatase 72 U/L (45-117) 06/05/22 03:33 Home Medications: Albuterol Inhaler [Ventolin Inhaler*] 2 puff IH Q6H PRN #1 hfa.aer.ad 03/04/21 Apixaban [Eliquis] 5 mg PO BID #30 tablet 03/04/21 Aspirin [Aspirin EC 81 MG] 81 mg PO DAILY #30 tablet. 03/04/21 Benzonatate [Tessalon Perle*] 200 mg PO TID PRN #30 cap 03/04/21 Melatonin 10 mg PO BEDTIME PRN PRN #14 tablet 03/04/21 Tamsulosin [Flomax*] 0.4 mg PO DAILY #30 cap 03/04/21 Apixaban [Eliquis] 5 mg PO BID #60 tablet 06/06/22 Mometasone/Formoterol [Dulera 200 Mcg/5 Mcg Inhaler] 2 puff IH BID #60 inhaler 06/06/22 Sotalol HCl [Betapace*] 80 mg PO BID 6AM 6PM #60 tab 06/06/22 predniSONE [Deltasone] 10 mg PO BID #20 tab 06/06/22 New Medications: Sotalol HCl [Betapace*] 80 mg PO BID 6AM 6PM #60 tab Mometasone/Formoterol [Dulera 200 Mcg/5 Mcg Inhaler] 2 puff IH BID #60 inhaler Apixaban [Eliquis] 5 mg PO BID #60 tablet predniSONE [Deltasone] 10 mg PO BID #20 tab Physician Discharge Instructions: Patient can take Dulera from the hospital use 2 puffs twice a day please check with the patient he has Eliquis at home Diet: ADA Followup: Gerald Fong MD [ACTIVE - CAN ADMIT] - (Call to schedule appointment) Nick Coulter MD [ACTIVE - CAN ADMIT] - (Call to schedule appointment)
--- NOTE | 2022-06-07 22:53 | PN ---
Date of Progress Note: 06/04/2022 Subjective: Mr. Pat came in with COPD exacerbation, congestive heart failure, acute on chroni c diastolic congestive heart failure, renal insufficiency, and developed atrial flutter while he was in the hospital, has failed about 130. He has been anticoagulated. He has had a normal e jection fraction. We will plan 06/05/2022. The patient understands the risk and the bene fits of the procedure and he agrees to proceed. RUPERT/BASSAM Voice ID: [id number] Report ID: [id number]
--- NOTE | 2022-06-08 04:57 | OP ---
Date of Procedure: 06/05/2022 Surgeon: Nick Coulter MD [employer] P[employer] Layer: Ms. Willa Ervin. Procedure: Direct current cardioversion. Indication: Atrial fibrillation and flutter that had failed regular therapy, on diltiazem, metoprolo l, and digoxin. The patient is not a candidate for amiodarone because of lung toxicity. Has been on anticoagulation. Echocardiogram has been unremarkable. He was brought to the recovery room and rec eived 8 mg of Versed IV push and one shock of 200 joules and he converted to sinus rhythm. We will c ontinue his anticoagulation, but I would like to switch him to sotalol 80 mg 1 p.o. b.i.d. Hopefully , this will keep him out of atrial fibrillation. History of ablation down the road. Anesthesia: Total conscious sedation was 30 minutes. Final Diagnosis: Status post successful cardioversion from atrial fibrillation to sinus rhythm. RUPERT/BASSAM Voice ID: [id number] Report ID: [id number]
--- NOTE | 2022-06-10 12:28 | EKG ---
Test Date: 2022-06-07 Test Time: 17:21:23 Quality Control Lead: JOSE MIGUEL MEASUREMENT RESULTS: Intervals: Rate: 121 [place]: 126 QRSD: 148 QT: 342 QTc: 485 [place]: P: 35 [place]: 126 QRS: 263 T: 43 INTERPRETIVE STATEMENTS: Sinus tachycardia Right bundle branch block Inferior infarct, age undetermined Abnormal ECG Compared to ECG 06/05/2022 14:40:48 Atrial fibrillation no longer present Left-axis deviation no longer present Myocardial infarct finding still present Electronically Signed On 06-10-22 12:24:51 CDT by Gianluca Garcia
== END 2022-06-06 14:41 | disposition home health service (06) | DRG 871 ==
LOC: ER 23:31 → ERHOLD 06-01 02:13 → 2ND 06-01 02:44 → 3RD-ICU 06-02 17:08 → 2ND 06-04 18:15
PROVIDERS: ADMIT Internal Medicine; ATTEND Internal Medicine
PROC: 5A2204Z Restoration of Cardiac Rhythm, Single (ICD-10-PCS; principal; 2022-06-05)
DX: A41.9 Sepsis, unspecified organism (principal); J18.9 Pneumonia, unspecified organism; J44.1 Chronic obstructive pulmonary disease with (acute) exacerbation; J44.0 Chronic obstructive pulmonary disease with (acute) lower respiratory infection; I50.32 Chronic diastolic (congestive) heart failure; J96.10 Chronic respiratory failure, unspecified whether with hypoxia or hypercapnia; I48.92 Unspecified atrial flutter; I48.0 Paroxysmal atrial fibrillation; E11.65 Type 2 diabetes mellitus with hyperglycemia; E78.5 Hyperlipidemia, unspecified; I11.0 Hypertensive heart disease with heart failure; I27.21 Secondary pulmonary arterial hypertension; F17.210 Nicotine dependence, cigarettes, uncomplicated; Z91.19 Patient's noncompliance with other medical treatment and regimen; Z79.01 Long term (current) use of anticoagulants; Z66 Do not resuscitate; Z99.81 Dependence on supplemental oxygen; Z20.822 Contact with and (suspected) exposure to COVID-19
CPT/HCPCS: 36415; 71045; 71275; 80048; 80053; 81001; 82805; 82947; 83036; 83605; 83735; 83880; 84145; 84439; 84443; 84484; 85025; 85379; 87040; 87070; 87077; 87086; 87088; 87186; 87205; 87811; 92960; 93005; 93306; 94640; 94760; 99285; J0282; J0456; J1160; J1815; J2250; J2920; J2930; J3010; J3370; J3475; J3535; J7040; J7050; J7060; J7512; J7605; Q9967

== ENCOUNTER 2022-06-07 16:27 | Inpatient (IN) | payer OTHER ==
--- NOTE | 2022-06-07 17:01 | RAD REPORT ---
EXAM DESCRIPTION: RAD - Chest Single View - 06/07/2022 4:53 pm CLINICAL HISTORY: COUGH Chest pain. COMPARISON: Chest Single View dated 06/01/2022; Chest Single View dated 02/26/2021; Chest Single View dated 12/30/2016; CHEST SINGLE VIEW dated 03/29/2014 FINDINGS: Portable technique limits examination quality. Mild bilateral interstitial lung opacities are present which may represent a viral infection or mild interstitial pulmonary edema. Trace left pleural fluid. The heart is upper limit of normal in size.
[2022-06-07 17:24] LABS: Absolute Lymphocytes (CBC) 1.4 K/uL (0.7-4.9); Hematocrit 53.2 % (39.6-49.0); Lymphocytes % 9.2 % (15.3-44.8); MCV 90.6 fL (80-100); MPV 10.8 fL (7.6-11.3); RBC Red Blood Cell Count 5.87 M/uL (4.33-5.43)
[2022-06-07 17:28] LABS: Protime INR 1.19
[2022-06-07] MEDS ORDERED: LEVALBUTEROL 1.25 MG/3 ML NEB ONE (17:31)
[2022-06-07] MEDS ORDERED: AZITHROMYCIN 500 MG INJ IVPB ONE (17:31)
[2022-06-07] MEDS ORDERED: METHYLPREDNISOLONE 125 MG INJ ONE (17:31)
[2022-06-07] MEDS ORDERED: NA CHLORIDE 0.9% 250 ML ONE (17:32)
[2022-06-07 17:44] LABS: Albumin 3.3 g/dL (3.4-5.0); Bilirubin Total 1.1 mg/dL (0.2-1.0); Potassium 4.1 mmol/L (3.5-5.1); Protein, Total 7.1 g/dL (6.4-8.2); Troponin High Sensitivity 38.3 pg/mL (<58.9)
[2022-06-07] MEDS ORDERED: Magnesium Sulfate 2gm IVPB 2 G/50 ML BAG IV ONE (18:06)
--- NOTE | 2022-06-07 18:40 | ER ---
Nurse's Notes [facility] Name: José Pat Age: 72 yrs Sex: Male : 1950 Arrival Date: 06/07/2022 Time: 16:29 Bed 17 Private MD: Diagnosis: COPD/ Chronic obstructive pulmonary disease with (acute) exacerbation Presentation: 06/07 16:30 Chief complaint: EMS states: Called 911 for SOB and chest pressure, was not wearing hb home O2 upon arrival. Discharged from hospital yesterday, has not picked up prescriptions. SpO2 83% on RA, improved to 90s on 3LNC. Coronavirus screen: Client presents with at least one sign or symptom that may indicate coronavirus-19. Standard/surgical mask placed on the client. Provider contacted for isolation considerations. Ebola Screen: No symptoms or risks identified at this time. Initial Sepsis Screen: Does the patient meet any 2 criteria? No. Patient's initial sepsis screen is negative. Does the patient have a suspected source of infection? No. Patient's initial sepsis screen is negative. Risk Assessment: Do you want to hurt yourself or someone else? Patient reports no desire to harm self or others. Onset of symptoms was June 07, 2022. 16:30 Method Of Arrival: EMS: [facility] hb 16:30 Acuity: KIT 2 hb Triage Assessment: 16:33 General: Appears in no apparent distress. Behavior is calm, cooperative. Pain: Pain hb currently is 5 out of 10 on a pain scale. EENT: No signs and/or symptoms were reported regarding the EENT system. Neuro: Level of Consciousness is awake, alert, obeys commands, Oriented to person, place, time, situation. Cardiovascular: Capillary refill < 3 seconds Patient's skin is warm and dry. Rhythm is atrial fibrillation with rapid ventricular response. Respiratory: Respiratory effort is even, labored, Respiratory pattern is tachypnea. GI: : No signs and/or symptoms were reported regarding the genitourinary system. Derm: Skin is pink, warm \T\ dry. Musculoskeletal: No signs and/or symptoms reported regarding the musculoskeletal system. Historical: - Allergies: 16:33 No Known Allergies; hb - PMHx: 16:33 CHF; COPD; Diabetes - IDDM; Atrial fibrillation; hb - Immunization history:: Adult Immunizations up to date. - Social history:: Smoking status: Patient denies any tobacco usage or history of. Screenin:34 Abuse screen: Denies threats or abuse. Denies injuries from another. Nutritional hb screening: No deficits noted. Tuberculosis screening: No symptoms or risk factors identified. Fall Risk None identified. Assessment: 16:34 General: see triage assessment. hb 17:48 Reassessment: Patient appears in no apparent distress at this time. No changes from hb previously documented assessment. Patient and/or family updated on plan of care and expected duration. Pain level reassessed. 19:31 Reassessment: Patient appears in no apparent distress at this time. No changes from hb previously documented assessment. Patient and/or family updated on plan of care and expected duration. Pain level reassessed. Vital Signs: 16:30 BP 105 / 86; Pulse 128; Resp 19; Temp 98.5(TE); Pulse Ox 83% on R/A; Weight 102.06 kg; hb Height 5 ft. 8 in. (172.72 cm); Pain 5/10; 17:29 BP 115 / 90; Pulse 128; Resp 24; Pulse Ox 94% on 3 lpm NC; Pain 2/10; hb 18:30 BP 116 / 80; Pulse 119; Resp 23; Pulse Ox 87% on 3 lpm NC; hb 19:31 BP 111 / 71; Pulse 103; Resp 21; Pulse Ox 89% on 3 lpm NC; hb 20:25 BP 105 / 78; Pulse 89; Resp 21; Pulse Ox 94% on 3 lpm NC; hb 16:30 Body Mass Index 34.21 (102.06 kg, 172.72 cm) hb ED Course: 16:29 Patient arrived in ED. hb 16:33 Triage completed. hb 16:33 Arm band placed on. hb 16:34 Patient has correct armband on for positive identification. Call light in reach. Side hb rails up X 1. Client placed on continuous cardiac and pulse oximetry monitoring. NIBP monitoring applied. 16:34 Oxygen administration via nasal cannula. hb 16:35 Gypsy Pires, RN is Primary Nurse. hb 16:40 Tatianna Valentine FNP is PHCP. 7 16:40 Feliberto Stokes MD is Attending Physician. [facility] 16:54 Chest Single View XRAY In Process Unspecified. EDMS 17:10 Inserted saline lock: 20 gauge in right wrist, using aseptic technique. hb 18:39 Gerald Fong MD is Hospitalizing Provider. jh7 19:04 Primary Nurse role handed off by Gypsy Pires RN 19:43 Gypsy Pires, RN is Primary Nurse. hb 21:14 No provider procedures requiring assistance completed. Patient admitted, IV remains in hb place. 06/09 03:39 Notified the Hospitalist of a critical lab result(s), wbc 21.4. tw5 Administered Medications: 06/07 17:40 Drug: AZITHromycin 500 mg Route: IVPB; Infused Over: 1 hrs; Site: right wrist; hb 20:23 Follow up: Response: No adverse reaction; IV Status: Infusion continued; IV Intake: hb 250ml 17:40 Drug: SOLU-Medrol (methylPrednisoLONE) 125 mg Route: IVP; Site: right wrist; hb 18:04 Follow up: Response: No adverse reaction hb 17:41 Drug: Xopenex (levalbuterol) (3) 1.25 mg Route: Inhalation; hb 20:24 Follow up: Response: No adverse reaction hb 18:04 Drug: Magnesium Sulfate 1 grams Route: IVPB; Infused Over: 1 hrs; Site: right wrist; hb 19:00 Follow up: Response: No adverse reaction; IV Status: Infusion continued hb 18:58 Drug: Sotalol 80 mg Route: PO; hb 20:23 Follow up: Response: No adverse reaction hb Medication: 16:34 VIS not applicable for this client. hb Intake: 20:23 IV: 250ml; Total: 250ml. hb Output: 06/08 12:43 Urine: 750ml (Voided); Total: 750ml. mb7 Outcome: 06/07 18:39 Decision to Hospitalize by Provider. jh7 21:14 Admitted to ER Hold. Please see [facility] for further documentation. hb 21:14 Condition: stable 21:14 Instructed on the need for admit, Demonstrated understanding of instructions. 06/09 14:57 Patient left the ED. jd3 Signatures: Dispatcher [employer] EDMS Gypsy Pires RN RN Rodolfo Rojas RN RN jd3 Virginie Hester Tiffany tw5 Lizz Olsen 7 Tatianna Valentine FNP FNP 7 Corrections: (The following items were deleted from the chart) 06/07 16:33 16:33 PMHx: Asthma; hb hb 16:39 16:30 Chief complaint: EMS states: Called for SOB and chest pressure, no wearing home hb O2. Discharged from hospital yesterday, has not picked up prescriptions. SpO2 83% on RA, improved to 90s on 3LNC. hb 16:39 16:30 Pulse 128bpm; Resp 19bpm; Pulse Ox 83% RA; Temp 98.5F Temporal; 102.06 kg; Height hb 5 ft. 8 in.; BMI: 34.2; Pain 5/10; hb
--- NOTE | 2022-06-07 18:40 | EDPHYS ---
Physician Documentation [facility] Name: José Pat Age: 72 yrs Sex: Male : 1950 Arrival Date: 06/07/2022 Time: 16:29 Bed 17 Private MD: ED Physician Feliberto Stokes HPI: 06/07 16:30 This 72 yrs old Male presents to ER via EMS with complaints of Chest Pain, Shortness Of jh7 Breath. 16:30 Onset: The symptoms/episode began/occurred acutely. Associated signs and symptoms: jh7 Pertinent positives: cough, Pertinent negatives: fever. Patient presents with shortness of breath, productive cough, and chest tightness starting today. 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 States that he is on 4 L of oxygen at home and takes Eliquis. He currently has an O2 sat of 82% on 4 L of oxygen and is in moderate respiratory distress.. Historical: - Allergies: 16:33 No Known Allergies; hb - PMHx: 16:33 CHF; COPD; Diabetes - IDDM; Atrial fibrillation; hb - Immunization history:: Adult Immunizations up to date. - Social history:: Smoking status: Patient denies any tobacco usage or history of. ROS: 16:30 Constitutional: Negative for fever, chills, and weight loss. jh7 16:30 ENT: Negative for injury, pain, and discharge, Neck: Negative for injury, pain, and swelling, Abdomen/GI: Negative for abdominal pain, nausea, vomiting, diarrhea, and constipation, Back: Negative for injury and pain, Skin: Negative for injury, rash, and discoloration, Neuro: Negative for headache, weakness, numbness, tingling, and seizure. 16:30 Constitutional: Positive for 16:30 Cardiovascular: Positive for chest pain, Negative for palpitations. 16:30 Respiratory: Positive for cough, orthopnea, shortness of breath, at rest. Negative for hemoptysis. 16:30 All other systems are negative. Exam: 16:30 ENT: Nares patent. No nasal discharge, no septal abnormalities noted. Oropharynx with jh7 no redness, swelling, or masses, exudates, or evidence of obstruction, uvula midline. Mucous membranes moist. Neck: Trachea midline, no thyromegaly or masses palpated, and no cervical lymphadenopathy. Supple, full range of motion without nuchal rigidity, or vertebral point tenderness. No Meningismus. Abdomen/GI: Soft, non-tender, with normal bowel sounds. No distension or tympany. No guarding or rebound. No evidence of tenderness throughout. Back: No spinal tenderness. No costovertebral tenderness. Full range of motion. Skin: Warm, dry with normal turgor. Normal color with no rashes, no lesions, and no evidence of cellulitis. MS/ Extremity: Pulses equal, no cyanosis. Neurovascular intact. Full, normal range of motion. Neuro: Awake and alert, GCS 15, oriented to person, place, time, and situation. Sensory grossly intact. Normal gait. 16:30 Constitutional: The patient appears alert, awake, in obvious distress, moderately distressed. 16:30 Cardiovascular: Rate: tachycardic, actual rate is 128 bpm, Heart sounds: S1, S2. 16:30 Respiratory: moderate respiratory distress is noted, Respirations: labored breathing, prolonged exhalation, tachypnea, that is moderate. 17:21 ECG was reviewed by the Attending Physician. [facility] Vital Signs: 16:30 BP 105 / 86; Pulse 128; Resp 19; Temp 98.5(TE); Pulse Ox 83% on R/A; Weight 102.06 kg; hb Height 5 ft. 8 in. (172.72 cm); Pain 5/10; 17:29 BP 115 / 90; Pulse 128; Resp 24; Pulse Ox 94% on 3 lpm NC; Pain 2/10; hb 18:30 BP 116 / 80; Pulse 119; Resp 23; Pulse Ox 87% on 3 lpm NC; hb 19:31 BP 111 / 71; Pulse 103; Resp 21; Pulse Ox 89% on 3 lpm NC; hb 20:25 BP 105 / 78; Pulse 89; Resp 21; Pulse Ox 94% on 3 lpm NC; hb 16:30 Body Mass Index 34.21 (102.06 kg, 172.72 cm) hb MDM: 16:40 Patient medically screened. [facility] 18:30 Differential diagnosis: viral Infection, bacterial infection, pneumonia COPD [facility] exacerbation. Data reviewed: vital signs, nurses notes, lab test result(s), EKG, radiologic studies, plain films. Data interpreted: Pulse oximetry: on 4L(s) per nasal canula, is 94 %. Interpretation: acceptable. Counseling: I had a detailed discussion with the patient and/or guardian regarding: the historical points, exam findings, and any diagnostic results supporting the discharge/admit diagnosis, the need for further work-up and treatment in the hospital. Response to treatment: the patient's symptoms have mildly improved after treatment. ED course: Discussed with TYRESE Garcia. Sotalol 80 mg p.o. was ordered (which was what the patient was prescribed). He will be admitted inpatient status under Dr. Fong. The patient symptoms improved after medication therapy.. 06/07 16:41 Order name: Blood Culture Adult (2) [facility] 06/07 16:41 Order name: CBC with Diff; Complete Time: 17:32 [facility] 06/07 16:41 Order name: CMP; Complete Time: 18:06 [facility] 06/07 16:41 Order name: Lactate; Complete Time: 18:06 [facility] 06/07 16:41 Order name: Protime (+inr); Complete Time: 17:30 [facility] 06/07 16:41 Order name: Ptt, Activated; Complete Time: 17:30 [facility] 06/07 16:41 Order name: Urine Microscopic Only [facility] 06/07 16:41 Order name: Troponin High Sensitivity; Complete Time: 18:06 [facility] 06/07 16:41 Order name: NT PRO-BNP; Complete Time: 18:06 [facility] 06/07 18:59 Order name: SARS RAPID sb3 06/07 19:18 Order name: SARS RAPID mw2 06/07 22:18 Order name: Glucose, Ancillary Testing [facility] 06/08 03:59 Order name: CBC with Automated Diff [facility] 06/08 04:09 Order name: Basic Metabolic Panel [facility] 06/07 16:41 Order name: Chest Single View XRAY; Complete Time: 17:10 [facility] 06/08 04:09 Order name: Phosphorus EDMS 06/08 04:09 Order name: Magnesium EDMS 06/08 08:28 Order name: Glucose, Ancillary Testing EDMS 06/08 11:49 Order name: Glucose, Ancillary Testing EDMS 06/08 16:36 Order name: Glucose, Ancillary Testing EDMS 06/08 21:48 Order name: Glucose, Ancillary Testing EDMS 06/09 03:40 Order name: CBC with Automated Diff EDMS 06/09 03:49 Order name: Basic Metabolic Panel [facility] 06/09 06:35 Order name: Glucose, Ancillary Testing [facility] 06/09 11:43 Order name: Glucose, Ancillary Testing [facility] 06/07 16:41 Order name: Accucheck; Complete Time: 17:29 [facility] 06/07 16:41 Order name: Cardiac monitoring; Complete Time: 17: [facility] 06/07 16:41 Order name: EKG - Nurse/Tech; Complete Time: 17: [facility] 06/07 16:41 Order name: IV Saline Lock - Large Bore; Complete Time: 17: [facility] 06/07 16:41 Order name: Labs collected and sent; Complete Time: 17: [facility] 06/07 16:41 Order name: O2 Per Protocol; Complete Time: 17: [facility] 06/07 16:41 Order name: O2 Sat Monitoring; Complete Time: 17: EC:21 Rate is 121 beats/min. Rhythm is regular. TN interval is normal at 126 msec. QRS jh7 interval is prolonged at 148 msec. QT interval is normal at 342 msec. No Q waves. Clinical impression: Sinus tachycardia. Administered Medications: 17:40 Drug: AZITHromycin 500 mg Route: IVPB; Infused Over: 1 hrs; Site: right wrist; hb 20:23 Follow up: Response: No adverse reaction; IV Status: Infusion continued; IV Intake: hb 250ml 17:40 Drug: SOLU-Medrol (methylPrednisoLONE) 125 mg Route: IVP; Site: right wrist; hb 18:04 Follow up: Response: No adverse reaction hb 17:41 Drug: Xopenex (levalbuterol) (3) 1.25 mg Route: Inhalation; hb 20:24 Follow up: Response: No adverse reaction hb 18:04 Drug: Magnesium Sulfate 1 grams Route: IVPB; Infused Over: 1 hrs; Site: right wrist; hb 19:00 Follow up: Response: No adverse reaction; IV Status: Infusion continued hb 18:58 Drug: Sotalol 80 mg Route: PO; hb 20:23 Follow up: Response: No adverse reaction hb Disposition Summary: 06/07/22 18:39 Hospitalization Ordered Hospitalization Status: Inpatient Admission [facility] Provider: Gerald Fong Condition: Stable [facility] Problem: chronic [facility] Symptoms: have worsened [facility] Bed/Room Type: Standard [facility] Location: [facility] ER HOLD(06/07/22 20:28) mw Room Assignment: ERHOLD-(06/07/22 20:28) Diagnosis - COPD/ Chronic obstructive pulmonary disease with (acute) exacerbation [facility] Forms: - Medication Reconciliation Form [facility] - SBAR form [facility] Signatures: Dispatcher [employer] EDMaru Ontiveros RN RN Gypsy Pires RN RN Tatianna Valentine FNP CUSTOMER OPERATIONS SPECIALIST [facility] Corrections: (The following items were deleted from the chart) 16:33 16:33 PMHx: Asthma; [facility] 20:28 18:39 Telemetry/MedSurg (Inpatient) [facility] 20:28 18:39 [facility]
[2022-06-07] MEDS ORDERED: SOTALOL HCL 80 MG TAB ONE (19:05)
--- NOTE | 2022-06-07 19:21 | P.HP ---
Certification for Inpatient Patient admitted to: Inpatient With expected LOS: <2 Midnights Patient will require the following post-hospital care: None Practitioner: I am a practitioner with admitting privileges, knowledge of patient current condition, hospital course, and medical plan of care. Services: Services provided to patient in accordance with Admission requirements found in Title 42 Section 412.3 of the Code of Federal Regulations Patient History Date of Service: 06/07/22 Reason for admission: COPD Exacerbation History of Present Illness: Patient is 72-year-old male with chronic diastolic CHF, COPD on home oxygen, A. fib, and IDDM who presented to the ED via EMS with complaints of shortness of breath and chest pressure. Patient was discharged from this facility yesterday after undergoing treatment for COPD exacerbation and pneumonia. He was discharged with prescriptions for sotalol, Dulera, Eliquis, and prednisone. Patient reports that he has not been taking them because they were not ready at the pharmacy. On EMS arrival, he was saturating 82% on room air. He was noted to be tachycardic and tachypnic upon arrival to ED. Labs significant for WBC 15.5, glucose 269, BNP 2300. Chest x-ray showed Mild bilateral interstitial lung opacities are present which may represent a viral infection or mild interstitial pulmonary edema. Trace left pleural fluid. The heart is upper limit of normal in size. He was given Solu-Medrol, azithromycin, breathing treatment, and magnesium. Breathing and O2 saturation has improved, patient remains tachycardic. He is admitted for further evaluation and treatment Allergies No Known Allergies Allergy (Verified 02/27/21 03:43) Home medications list reviewed: Yes Home Medications: Albuterol Inhaler [Ventolin Inhaler*] 2 puff IH Q6H PRN #1 hfa.aer.ad 03/04/21 Apixaban [Eliquis] 5 mg PO BID #30 tablet 03/04/21 Aspirin [Aspirin EC 81 MG] 81 mg PO DAILY #30 tablet. 03/04/21 Benzonatate [Tessalon Perle*] 200 mg PO TID PRN #30 cap 03/04/21 Melatonin 10 mg PO BEDTIME PRN PRN #14 tablet 03/04/21 Tamsulosin [Flomax*] 0.4 mg PO DAILY #30 cap 03/04/21 Apixaban [Eliquis] 5 mg PO BID #60 tablet 06/06/22 Mometasone/Formoterol [Dulera 200 Mcg/5 Mcg Inhaler] 2 puff IH BID #60 inhaler 06/06/22 Sotalol HCl [Betapace*] 80 mg PO BID 6AM 6PM #60 tab 06/06/22 predniSONE [Deltasone] 10 mg PO BID #20 tab 06/06/22 - Past Medical/Surgical History Diabetic: Yes -: DIVERTICULITIS -: COPD -: A. fib -: Diastolic CHF -: Diabetes mellitus type 2 -: Hypertension -: Hyperlipidemia -: ABD SX-INFECTIONS POCKET OF ABD ORGANS-UNABLE TO SPECIFY AREAS Psychosocial/ Personal History: Patient lives at home with his - Family History Father Notes: mesothelioma Mother -: Heart disease, Hypertension - Social History Smoking Status: Current every day smoker Alcohol use: No CD- Drugs: No Caffeine use: Yes Place of Residence: Home Review of Systems Respiratory: Shortness of Breath Cardiovascular: Palpitations Physical Examination - Physical Exam General: Alert, In no apparent distress HEENT: Atraumatic, PERRLA, EOMI, Sclerae nonicteric Neck: Supple, 2+ carotid pulse no bruit, No LAD, Without JVD or thyroid abnormality Respiratory: Expiratory wheezes Cardiovascular: Regular rate/rhythm, Normal S1 S2 Gastrointestinal: Normal bowel sounds, No tenderness Musculoskeletal: No tenderness Integumentary: No rashes Neurological: Normal speech, Normal strength at 5/5 x4 extr, Normal tone, Normal affect - Studies Laboratory Data (last 24 hrs) 06/07/22 17:10: PT 13.1 H, INR 1.19, APTT 32.2 06/07/22 17:10: Sodium 136, Potassium 4.1, BUN 22 H, Creatinine 0.94, Glucose 269 H, Total Bilirubin 1.1 H, AST 13 L, ALT 36, Alkaline Phosphatase 67 06/07/22 17:10: WBC 15.5 H, Hgb 17.4, Hct 53.2 H, Plt Count 184 Assessment and Plan - Problems (Diagnosis) (1) COPD with exacerbation Current Visit: Yes Status: Acute (2) CHF (congestive heart failure) Current Visit: Yes Status: Chronic Qualifiers: Heart failure chronicity: unspecified (3) Type 2 diabetes mellitus Current Visit: Yes Status: Chronic Qualifiers: Diabetes mellitus mcc insulin use: with manager terminal use Diabetes mellitus complication status: with hyperglycemia Qualified Code(s): E11.65 - Type 2 diabetes mellitus with hyperglycemia; Z79.4 - MCC (current) use of insulin (4) Afib Current Visit: Yes Status: Chronic Qualifiers: Atrial fibrillation type: paroxysmal Qualified Code(s): I48.0 - Paroxysmal atrial fibrillation - Plan -Continue supplemental oxygen as needed, wean as tolerated -Scheduled breathing treatments and IV Solu-Medrol -Sputum culture ordered given cough and suspicious chest x-ray. White count is 15.5, but was the same upon discharge yesterday. Received azithromycin in the ED. We will hold off on additional antibiotics for now. -Continue home sotalol for rate control. Monitor on telemetry -ACHS Accu-Cheks with sliding scale diabetic diet -Monitor and replete electrolytes per protocol -Reconcile and continue home medications, including Dulera -Eliquis for VTE ppx -DNR Discharge Plan: Home Plan to discharge in: 48 Hours - Advance Directives Does patient have a Living Will: No Does patient have a Durable POA for Healthcare: No - Code Status/Comfort Care Code Status Assessed: Yes (Full) Critical Care: No Time Spent Managing Pts Care (In Minutes): 50
[2022-06-07 20:45] LABS: SARS-CoV-2 Antigen Rapid Res Positive (Negative)
[2022-06-07] MEDS ORDERED: ACETAMINOPHEN 500 MG TAB PO PRN (21:16)
[2022-06-07] MEDS: APIXABAN 5 MG TABLET PO SCH (21:16)
[2022-06-07] MEDS: INSULIN -REGULAR HUMAN 50 UNIT/0.5 ML ML SQ SCH (21:16)
[2022-06-07] MEDS ORDERED: DULERA 200/5 (MOMETASONE/FORMOTEROL) INHALER IH SCH (21:16)
[2022-06-07] MEDS ORDERED: ONDANSETRON 4 MG/2 ML VIAL IV PRN (21:16)
[2022-06-07] MEDS: ALBUTEROL 2.5 MG/3 ML NEB SOL NEB SCH (21:30)
[2022-06-07] MEDS: IPRATROPIUM BROM 0.5MG/2.5ML NEB SCH (21:30)
[2022-06-07 21:36] VITALS: BMI 29.5
[2022-06-07] MEDS ORDERED: ALBUTEROL 2.5 MG/3 ML NEB SOL ONE (21:39)
[2022-06-07] MEDS ORDERED: IPRATROPIUM BROM 0.5MG/2.5ML ONE (21:39)
[2022-06-07] MEDS ORDERED: APIXABAN 5 MG TABLET ONE (22:17)
[2022-06-07] MEDS ORDERED: INSULIN -REGULAR HUMAN 50 UNIT/0.5 ML ML ONE (22:18)
[2022-06-08] MEDS ORDERED: FAMOTIDINE 20 MG TAB PO PRN (01:03)
[2022-06-08] MEDS ORDERED: METHYLPREDNISOLONE 125 MG INJ ONE ×4 (01:06→16:54)
[2022-06-08] MEDS ORDERED: FAMOTIDINE 20 MG TAB ONE (01:21)
[2022-06-08] MEDS: ALBUTEROL 2.5 MG/3 ML NEB SOL NEB SCH ×4 (02:00→20:00)
[2022-06-08] MEDS: IPRATROPIUM BROM 0.5MG/2.5ML NEB SCH ×4 (02:00→20:10)
[2022-06-08 03:52] LABS: Absolute Lymphocytes (CBC) 0.8 K/uL (0.7-4.9); Hematocrit 51.3 % (39.6-49.0); Lymphocytes % 5.9 % (15.3-44.8); MCV 91.1 fL (80-100); RBC Red Blood Cell Count 5.63 M/uL (4.33-5.43)
[2022-06-08 04:08] LABS: Phosphorus 4.1 mg/dL (2.5-4.9); Potassium 4.5 mmol/L (3.5-5.1)
[2022-06-08] MEDS: METHYLPREDNISOLONE 125 MG INJ IV SCH ×5 (06:00→23:24)
[2022-06-08] MEDS: SOTALOL HCL 80 MG TAB PO SCH ×2 (06:00→16:48)
[2022-06-08] MEDS ORDERED: SOTALOL HCL 80 MG TAB ONE ×2 (06:44→16:54)
[2022-06-08] MEDS: INSULIN -REGULAR HUMAN 50 UNIT/0.5 ML ML SQ SCH ×4 (07:30→21:00)
[2022-06-08] MEDS ORDERED: APIXABAN 5 MG TABLET ONE ×2 (08:50→22:17)
[2022-06-08] MEDS: APIXABAN 5 MG TABLET PO SCH ×2 (09:00→21:00)
[2022-06-08] MEDS: DULERA 200/5 (MOMETASONE/FORMOTEROL) INHALER IH SCH ×2 (09:00→21:00)
[2022-06-08] MEDS ORDERED: IPRATROPIUM BROM 0.5MG/2.5ML ONE ×3 (09:49→20:26)
[2022-06-08] MEDS ORDERED: INSULIN -REGULAR HUMAN 50 UNIT/0.5 ML ML ONE ×2 (16:54→22:16)
[2022-06-08] MEDS ORDERED: METHYLPREDNISOLONE 40 MG INJ ONE (23:21)
[2022-06-09] MEDS: ALBUTEROL 2.5 MG/3 ML NEB SOL NEB SCH ×2 (02:00→09:00)
[2022-06-09] MEDS: IPRATROPIUM BROM 0.5MG/2.5ML NEB SCH ×2 (02:15→09:00)
[2022-06-09] MEDS ORDERED: IPRATROPIUM BROM 0.5MG/2.5ML ONE ×2 (02:21→09:04)
[2022-06-09 03:31] LABS: Absolute Lymphocytes (CBC) 1.1 K/uL (0.7-4.9); Hematocrit 51.7 % (39.6-49.0); Lymphocytes % 5.1 % (15.3-44.8); MCV 91.8 fL (80-100); MPV 10.9 fL (7.6-11.3); RBC Red Blood Cell Count 5.64 M/uL (4.33-5.43)
[2022-06-09 03:48] LABS: Potassium 4.5 mmol/L (3.5-5.1)
[2022-06-09] MEDS ORDERED: Levofloxacin500mg IV 500 MG/100 ML BAG IV ONE (04:44)
[2022-06-09] MEDS ORDERED: Levofloxacin500mg IV 500 MG/100 ML BAG IV SCH (05:00)
[2022-06-09] MEDS ORDERED: SOTALOL HCL 80 MG TAB ONE (05:47)
[2022-06-09] MEDS ORDERED: METHYLPREDNISOLONE 40 MG INJ ONE (05:47)
[2022-06-09] MEDS: SOTALOL HCL 80 MG TAB PO SCH (06:00)
[2022-06-09] MEDS: METHYLPREDNISOLONE 125 MG INJ IV SCH ×2 (06:00→12:00)
[2022-06-09] MEDS: INSULIN -REGULAR HUMAN 50 UNIT/0.5 ML ML SQ SCH ×2 (07:30→11:50)
[2022-06-09] MEDS ORDERED: INSULIN -REGULAR HUMAN 50 UNIT/0.5 ML ML ONE ×2 (08:03→11:55)
[2022-06-09] MEDS ORDERED: CEFEPIME 1 GM in NA CHLORIDE 0.9% 100 ML IV SCH (09:00)
[2022-06-09] MEDS: DULERA 200/5 (MOMETASONE/FORMOTEROL) INHALER IH SCH (09:00)
[2022-06-09] MEDS: APIXABAN 5 MG TABLET PO SCH (09:00)
[2022-06-09] MEDS ORDERED: APIXABAN 5 MG TABLET ONE (09:02)
[2022-06-09] MEDS ORDERED: NA CHLORIDE 0.9% 100 ML ONE (09:02)
[2022-06-09] MEDS ORDERED: CEFEPIME 1 GM/VIAL ONE (09:03)
[2022-06-09] MEDS ORDERED: METHYLPREDNISOLONE 125 MG INJ ONE (12:41)
[2022-06-09 15:28] VITALS: TEMP 98.5
[2022-06-09 15:39] VITALS: BP 105/78; O2SAT 94
== END 2022-06-09 15:08 | disposition home or self-care (01) | DRG 178 ==
LOC: ER 16:27 → ERHOLD 19:12
PROVIDERS: ADMIT Internal Medicine Sleep Medicine; ATTEND Hospitalist
DX: U07.1 COVID-19 (principal); J44.1 Chronic obstructive pulmonary disease with (acute) exacerbation; I50.32 Chronic diastolic (congestive) heart failure; K57.92 Diverticulitis of intestine, part unspecified, without perforation or abscess without bleeding; I48.0 Paroxysmal atrial fibrillation; E11.65 Type 2 diabetes mellitus with hyperglycemia; F17.210 Nicotine dependence, cigarettes, uncomplicated; Z99.81 Dependence on supplemental oxygen; Z79.01 Long term (current) use of anticoagulants; Z79.4 Long term (current) use of insulin
CPT/HCPCS: 36415; 71045; 80048; 80053; 82947; 83605; 83735; 83880; 84100; 84484; 85025; 85610; 85730; 87040; 87811; 94010; 94640; 94760; 96365; 96366; 96375; 97116; 97161; 97530; 99285; J0456; J0692; J1815; J2920; J2930; J3475; J3535; J7050

== ENCOUNTER 2022-06-10 14:51 | Inpatient (IN) | payer OTHER ==
--- OUTSIDE RECORDS SUMMARY | 2022-06-10 14:54 | XMS REPORT | Continuity of Care Document ---
:1950 Author Organization [facility] t Address [address] [place] [address] Care Team Providers Name Role Phone Meghana Ayala Attending Clinician Unavailable Problems Condition Condition Condition Status Onset Resolution Last Treating Co mments Source Name Details Category Date Date Treatment Clinician Date CHF CHF Problem Active Common (congestiv (congestiv Sp anabela e heart e heart - [facility] failure) failure) [facility] Hypertensi Hypertensi Problem Active C ommon on on Spirit - [facility] Diabetes Diabetes Problem Active Commo n type 2, type 2, Spirit controlled controlled - [facility] COPD COPD Problem Active Common (chronic (chronic Spirit obstructiv obstructiv - [facility] e e St pulmonary pulmonary [facility] disease) disease) [facility] Nicotine Nicotine Problem Active Commo n dependence dependence Sp anabela - [facility] Seasonal Seasonal Problem Active Commo n allergic allergic Spirit rhinitis rhinitis - [facility] Adjustment Adjustment Problem Active C ommon disorder disorder Spirit with with - [facility] depressed depressed mood [facility] Chronic Chronic Problem Active Common fatigue fatigue Spirit - [facility] Type 2 Type 2 Problem Active Common diabetes diabetes Spirit mellitus mellitus - [facility] with with St hyperglyce hyperglyce [facility] marci, marci, Medical without without Center long-term long-term current [...] puff Com mon Ellipta Ellipta 2-12 06-11 [facility] 00:00: 00:00 - [facility] 00 :00 [facility] HydrOXYzine HydrOXYzine 2018-0 Yes Meghana 1 tablet Common HCl HCl 7- [facility] as needed Spirit 00:00: - [facility]I 00 [facility] Ozempic Ozempic 2019- 2020- No Meghana 0.5 mg Com mon 05-[address] [facility] Spirit 00:00: 00:00 - [facility]I 00 :00 [facility] Januvia Januvia Yes Meghana as Common 11-11 [facility] directed Spirit 00:00: - CHI 00 [facility] ProAir ProAir Yes Meghana 2 puffs as Comm on RespiClick RespiClick [facility] needed [facility] [place] 3 Yes Meghana [address] [facility] Montelukast Montelukast Yes Meghana 1 tablet Common Sodium Sodium [facility] in the [facility] evening [facility] Lipitor Lipitor Yes Meghana [address] [facility] Losartan Losartan Yes Meghana 1 tablet Co mmon Potassium Potassium [facility] Metoprolol Metoprolol Yes Meghana 1 tablet Common Tartrate Tartrate [facility] with food S pirit [facility] Metformin Metformin Yes Meghana 1 [address] HCl HCl [facility] with a [facility] meal [facility] Immunizations Ordered Immunization Filled Immunization Date Status Commen ts Source Name Name FLUZONE HIGH DOSE FLUZONE HIGH DOSE 2019-09-14 Completed Common Spirit OVER 65 OVER 65 00:00:00 [facility] Procedures This patient has no known procedures. Encounters Start End Encounter Admission Attending Care Care Encounter Source Date/Time Date/Time Type Type Clinicians Facility Department ID 2021-12-05 Outpatient MILAGROS Ayala [facility] [id number] Common 11:06:[id number] [facility] 2020-04-04 2020-04-04 [facility] [id number] Common 13:00:00 13:00:00 [facility] it [facility] 2020-03-22 2020-03-22 [facility] [id number] Common 15:20:00 15:20:00 [facility] it Road [facility] 2019-12-22 2019-12-22 [facility] [id number] Common 10:40:00 10:40:00 [facility] Sp[address] Road [facility] 2019-12-15 2019-12-15 [facility] [id number] Common 14:00:00 14:00:00 t [facility] Sp[address] Road [facility] 2019-09-14 2019-09-14 [facility] [id number] Common 13:20:00 13:20:00 t [facility] Sp[address] Road [facility] 2019-05-11 2019-05-11 [facility] [id number] Common 13:00:00 13:00:00 t [facility] [address] Road [facility] 2018-11-11 2018-11-11 [facility] [id number] Common 13:00:00 13:00:00 t [facility] [address] [facility] 2018-10-19 2018-10-19 [facility] [id number] Common 08:30:00 08:30:00 t [facility] [address] [facility] 2018-04-22 2018-04-22 [facility] [id number] Common 14:00:00 14:00:00 t [facility] [address] [facility] Results This patient has no known results.
[2022-06-10 15:44] LABS: Absolute Lymphocytes (CBC) 2.6 K/uL (0.7-4.9); Hematocrit 54.3 % (39.6-49.0); Lymphocytes % 15.5 % (15.3-44.8); MCV 90.7 fL (80-100); MPV 10.5 fL (7.6-11.3); RBC Red Blood Cell Count 5.98 M/uL (4.33-5.43)
[2022-06-10] MEDS ORDERED: NA CHLORIDE 0.9% 500 ML ONE (16:14)
[2022-06-10] MEDS ORDERED: MAGNESIUM SULFATE 1 gm IVPB 1 GM/100 ML BAG IV ONE (16:14)
--- NOTE | 2022-06-10 16:20 | RAD REPORT ---
EXAM DESCRIPTION: RAD - Chest Single View - 06/10/2022 4:07 pm CLINICAL HISTORY: Chest pain Chest pain. COMPARISON: Chest Single View dated 06/07/2022; Chest Single View dated 06/01/2022; Chest Single View dated 02/26/2021; Chest Single View dated 12/30/2016 FINDINGS: Portable technique limits examination quality. Mild bilateral interstitial lung opacities are present probably representing infection and appearing unchanged. The heart is mildly enlarged in size. No displaced fractures.
[2022-06-10] MEDS ORDERED: DIGOXIN 0.25 MG/ML AMP ONE (16:25)
[2022-06-10] MEDS ORDERED: METHYLPREDNISOLONE 125 MG INJ ONE (16:40)
[2022-06-10] MEDS ORDERED: LEVALBUTEROL 1.25 MG/3 ML NEB ONE (16:40)
[2022-06-10 17:43] LABS: Potassium 4.2 mmol/L (3.5-5.1); Troponin High Sensitivity 32.5 pg/mL (<58.9)
[2022-06-10] MEDS ORDERED: SOTALOL HCL 80 MG TAB ONE (18:40)
--- NOTE | 2022-06-10 19:44 | RAD REPORT ---
EXAM DESCRIPTION: CT - Chest For Pe Angio - 06/10/2022 7:17 pm CLINICAL HISTORY: Chest pain. COVID +, worsening CP adn sob, eval for PE COMPARISON: Chest For Pe Angio dated 06/02/2022 TECHNIQUE: CT angiogram of the pulmonary arteries was performed with MIP. All CT scans are performed using dose optimization technique as appropriate and may include automated exposure control or mA/KV adjustment according to patient size. FINDINGS: No evidence of pulmonary thromboembolism. No acute aortic finding demonstrated. Mild COPD is present. Trace pleural fluid bilaterally, greater on the right. No concerning bony finding. Nonspecific 17 mm subcutaneous cyst midline back. IMPRESSION: No evidence of pulmonary thromboembolism. Mild COPD with trace right pleural fluid.
[2022-06-10] MEDS ORDERED: INSULIN -REGULAR HUMAN 50 UNIT/0.5 ML ML ONE (20:04)
--- NOTE | 2022-06-10 21:10 | P.HP ---
Certification for Inpatient Patient admitted to: Observation With expected LOS: <2 Midnights Patient will require the following post-hospital care: None Practitioner: I am a practitioner with admitting privileges, knowledge of patient current condition, hospital course, and medical plan of care. Services: Services provided to patient in accordance with Admission requirements found in Title 42 Section 412.3 of the Code of Federal Regulations Patient History Date of Service: 06/10/22 Reason for admission: A. fib RVR History of Present Illness: 72-year-old male with history of atrial fibrillationrecently diagnosed on chronic anticoagulation therapy, chronic diastolic congestive heart failure, COPD on home oxygen, diabetes mellitus type 2 who was recently discharged from the hospital yesterday after being diagnosed with COVID, COPD exacerbation. Upon arrival to the emergency department patient was found to be in A. fib RVR with rates around 140-150, patient also with complaints of shortness of breath and chest tightness. He was having significant wheezing on exam he was given IV steroids, nebulizer treatments and magnesium in the emergency department. After speaking with patient it was apparent that he has not gotten his medications filled ever since he was discharged in the hospital previously including his sotalol 80 mg p.o. twice daily, Eliquis or any of his steroids/inhalers that he was discharged on. Rate has currently improved to around 110, he says he feels much better after the breathing treatments. ED provider wishes to admit under observation for A. fib RVR. Patient was noted to have some lower extremity edema on exam as well, he had an echocardiogram 06/03/2022 with normal ejection fraction but diastolic dysfunction. Allergies No Known Allergies Allergy (Verified 02/27/21 03:43) Home Medications: Albuterol Inhaler [Ventolin Inhaler*] 2 puff IH Q6H PRN #1 hfa.aer.ad 03/04/21 Aspirin [Aspirin EC 81 MG] 81 mg PO DAILY #30 tablet. 03/04/21 Benzonatate [Tessalon Perle*] 200 mg PO TID PRN #30 cap 03/04/21 Melatonin 10 mg PO BEDTIME PRN PRN #14 tablet 03/04/21 Tamsulosin [Flomax*] 0.4 mg PO DAILY #30 cap 03/04/21 Apixaban [Eliquis] 5 mg PO BID #60 tablet 06/06/22 Mometasone/Formoterol [Dulera 200 Mcg/5 Mcg Inhaler] 2 puff IH BID #60 inhaler 06/06/22 Sotalol HCl [Betapace*] 80 mg PO BID 6AM 6PM #60 tab 06/06/22 Albuterol Neb [Proventil 0.083% Neb Soln] 2.5 mg NEB [id number] #60 amp 06/08/22 Amox/Clavulanate [Augmentin 875-125 Tab] 875 mg PO BID #14 tab 06/08/22 Cefdinir [Omnicef] 300 mg PO BID #14 06/08/22 Ipratropium Neb [Atrovent*] 0.5 mg NEB V4VDNND #60 amp 06/08/22 Nebulizer Accessories [Aeroneb Go] 1 each MC DAILY #1 06/08/22 Nebulizer [Aeroneb Go Nebulizer] 1 each MC DAILY #1 06/08/22 predniSONE [Prednisone*] 20 mg PO BID #20 tab 06/08/22 - Past Medical/Surgical History Diabetic: Yes -: DIVERTICULITIS -: COPD -: A. fib -: Diastolic CHF -: Diabetes mellitus type 2 -: Hypertension -: Hyperlipidemia -: ABD SX-INFECTIONS POCKET OF ABD ORGANS-UNABLE TO SPECIFY AREAS Psychosocial/ Personal History: Patient lives at home with his - Family History Father Notes: mesothelioma Mother -: Heart disease, Hypertension - Social History Smoking Status: Current every day smoker Alcohol use: No CD- Drugs: No Caffeine use: Yes Place of Residence: Home Review of Systems 10-point ROS is otherwise unremarkable Respiratory: Shortness of Breath, SOB with Excertion Cardiovascular: Chest Pain, Palpitations Physical Examination - Physical Exam General: Alert, In no apparent distress, Oriented x3 HEENT: Atraumatic, PERRLA, Mucous membr. moist/pink, EOMI, Sclerae nonicteric Neck: Supple, 2+ carotid pulse no bruit, No LAD, Without JVD or thyroid abnormality Respiratory: Diminished, Expiratory wheezes, Rhonchi/gurgles Cardiovascular: Normal S1 S2, Edema, Irregular heart rate/rhythm Capillary refill: <2 Seconds Gastrointestinal: Normal bowel sounds, No tenderness Musculoskeletal: No tenderness Integumentary: No rashes Neurological: Normal speech, Normal strength at 5/5 x4 extr, Normal tone, Normal affect - Studies Laboratory Data (last 24 hrs) 06/10/22 16:59: Sodium 137, Potassium 4.2, BUN 23 H, Creatinine 0.86, Glucose 408 H* 06/10/22 15:29: WBC 17.0 H D, Hgb 17.8, Hct 54.3 H, Plt Count 206 Assessment and Plan - Plan Assessment: Atrial fibrillation with rapid ventricular response on chronic anticoagulation with noncompliance Acute on chronic diastolic congestive heart failure COPD with exacerbation on home O24 L Diabetes mellitus type 0-zpl-dwevzhs-dependent with hyperglycemia Plan: Atrial fibrillation with rapid ventricular response on chronic anticoagulation with noncompliance: Patient had not been taking his sotalol since discharge, patient was given a dose of sotalol 80 mg in the emergency department, his medication has been continued we will continue monitor on telemetry. Cardiology to be consulted as well given the A. fib RVR and acute CHF. We will trend troponins given chest pain. Acute on chronic diastolic congestive heart failure: Patient with lower extremity pitting edema, recent echocardiogram with diastolic dysfunction. Continue with IV Lasix, cardiology consult in place. Will likely need diuretic at discharge. COPD with exacerbation on home O24 L: Continue prednisone 10 mg p.o. twice daily, ICS, as needed nebulizer treatments, home oxygen at 4 L/min. Daily saturations on O2 at 4 L. 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 Patient may require long-acting insulin. DVT PPX: Eliquis Code status: DNR/DNI Discharge Plan: Home Plan to discharge in: 24 Hours - Advance Directives Does patient have a Living Will: No Does patient have a Durable POA for Healthcare: No - Code Status/Comfort Care Code Status Assessed: Yes (Full code) Critical Care: No Time Spent Managing Pts Care (In Minutes): 70
[2022-06-10] MEDS ORDERED: ONDANSETRON 4 MG/2 ML VIAL IV PRN (22:03)
[2022-06-10] MEDS ORDERED: ACETAMINOPHEN 500 MG TAB PO PRN (22:03)
[2022-06-10] MEDS ORDERED: ALBUTEROL 2.5 MG/3 ML NEB SOL NEB PRN (22:03)
[2022-06-10] MEDS ORDERED: IPRATROPIUM BROM 0.5MG/2.5ML NEB PRN (22:03)
[2022-06-10 22:43] VITALS: BMI 43.3
[2022-06-10] MEDS: predniSONE 10 MG TAB PO SCH (23:01)
[2022-06-10] MEDS: INSULIN -REGULAR HUMAN 50 UNIT/0.5 ML ML SQ SCH (23:01)
[2022-06-10] MEDS: APIXABAN 5 MG TABLET PO SCH (23:01)
[2022-06-11 03:50] LABS: Absolute Lymphocytes (CBC) 1.1 K/uL (0.7-4.9); Lymphocytes % 7.8 % (15.3-44.8); MCV 90.2 fL (80-100); MPV 10.6 fL (7.6-11.3); RBC Red Blood Cell Count 5.65 M/uL (4.33-5.43)
[2022-06-11 04:53] LABS: Bilirubin Total 0.7 mg/dL (0.2-1.0); Magnesium 2.3 mg/dL (1.8-2.4); Potassium 4.5 mmol/L (3.5-5.1); Protein, Total 6.7 g/dL (6.4-8.2); Thyroid Stimulating Hormone 0.341 uIU/mL (0.360-3.740); Troponin High Sensitivity 24.9 pg/mL (<58.9)
--- NOTE | 2022-06-11 06:19 | P.PN ---
Date of Service: 06/11/22 Subjective: feeling better, breathing more comfortably still with some dyspnea, on 4.5 - 5L NC ROS: 10 point ROS as noted above, otherwise negative Physical exam GEN: Alert, oriented HEENT: Normal conjunctiva, sclera anicteric CV: irregularly irregular rhythm, 1-2+ edema bilateral lower extremities Pulm: mild labored respirations on 5L NC, b/l crackles ABD: Soft, nontender, nondistended Neuro: Normal speech, normal affect Problem List Atrial fibrillation with rvr on chronic anticoagulation with noncompliance Acute on chronic diastolic congestive heart failure COPD with exacerbation on home O24 L Diabetes mellitus type 5-yug-xfkxnie-dependent with hyperglycemia Atrial fibrillation with rapid ventricular response on chronic anticoagulation with noncompliance Patient had not been taking his sotalol since discharge, resumed home dosing, with better control cardiology consulted -recommend continue dosage trend troponins Acute on chronic diastolic congestive heart failure: Patient with lower extremity pitting edema, recent echocardiogram with diastolic dysfunction. Continue with IV Lasix, cardiology consult in place. Will likely need diuretic at discharge. COPD with exacerbation on home O24 L: Continue prednisone 10 mg p.o. twice daily, ICS, as needed nebulizer treatments, home oxygen at 4 L/min. Daily saturations on O2 at 4 L. Diabetes mellitus type 5-ail-emdeqld-dependent with hyperglycemia: Patient treated with steroids blood sugar significantly elevated has not been taking any medications at home sliding scale, long acting if needed VTE: eliquis Code: DNR Dispo: home, possibly tomorrow patient resumed on home dosing of medications with improvement SW/CM consulted to check on patient ability to get prescriptions, otherwise will bounce back again
[2022-06-11] MEDS: SOTALOL HCL 80 MG TAB PO SCH ×2 (06:35→17:32)
[2022-06-11] MEDS ORDERED: PNEUMOCOCCAL VACCINE 0.5 ML IMVAC ONE (08:00)
--- NOTE | 2022-06-11 08:51 | EKG ---
Test Date: 2022-06-10 Test Time: 16:31:11 Geosciences Faculty Member: LACI MEASUREMENT RESULTS: Intervals: Rate: 104 WA: 186 QRSD: 138 QT: 366 QTc: 481 [place]: P: 71 WA: 186 QRS: -90 T: 63 INTERPRETIVE STATEMENTS: Sinus tachycardia with premature atrial complexes Right bundle branch block Inferior infarct, age undetermined Anterolateral infarct, age undetermined Abnormal ECG Compared to ECG 06/10/2022 15:34:56 Atrial premature complex(es) now present Left-axis deviation no longer present Myocardial infarct finding still present Electronically Signed On 06-11-22 08:47:10 CDT by Nick Coulter
--- NOTE | 2022-06-11 08:52 | EKG ---
Test Date: 2022-06-10 Test Time: 15:34:56 Fruit Stuffer: ALP MEASUREMENT RESULTS: Intervals: Rate: 143 SC: QRSD: 134 QT: 274 QTc: 422 [place]: P: SC: QRS: -87 T: 71 INTERPRETIVE STATEMENTS: Undetermined rhythm Left axis deviation Right bundle branch block Inferior infarct, age undetermined Anterolateral infarct, age undetermined Abnormal ECG Compared to ECG 06/07/2022 17:21:23 Left-axis deviation now present Sinus tachycardia no longer present Myocardial infarct finding still present Electronically Signed On 06-11-22 08:47:14 CDT by Nick Coulter
[2022-06-11] MEDS: DULERA 200/5 (MOMETASONE/FORMOTEROL) INHALER IH SCH ×2 (09:37→20:32)
[2022-06-11] MEDS: predniSONE 10 MG TAB PO SCH ×2 (09:37→20:32)
[2022-06-11] MEDS: APIXABAN 5 MG TABLET PO SCH ×2 (09:37→20:32)
[2022-06-11] MEDS: INSULIN -REGULAR HUMAN 50 UNIT/0.5 ML ML SQ SCH ×4 (09:38→20:33)
[2022-06-11] MEDS ORDERED: FUROSEMIDE 40 MG/4 ML VIAL IV ONE (18:20)
[2022-06-12 03:50] LABS: Absolute Lymphocytes (CBC) 1.7 K/uL (0.7-4.9); MCV 91.7 fL (80-100); MPV 10.5 fL (7.6-11.3); RBC Red Blood Cell Count 5.67 M/uL (4.33-5.43)
[2022-06-12 04:01] LABS: Albumin 2.9 g/dL (3.4-5.0); Bilirubin Total 0.8 mg/dL (0.2-1.0); Potassium 4.1 mmol/L (3.5-5.1); Protein, Total 6.3 g/dL (6.4-8.2)
[2022-06-12] MEDS: SOTALOL HCL 80 MG TAB PO SCH (05:04)
[2022-06-12 05:48] VITALS: O2SAT 96
[2022-06-12] MEDS: APIXABAN 5 MG TABLET PO SCH (07:53)
[2022-06-12] MEDS: INSULIN -REGULAR HUMAN 50 UNIT/0.5 ML ML SQ SCH (07:53)
[2022-06-12] MEDS: predniSONE 10 MG TAB PO SCH (07:54)
[2022-06-12] MEDS: DULERA 200/5 (MOMETASONE/FORMOTEROL) INHALER IH SCH (07:54)
[2022-06-12] MEDS ORDERED: FUROSEMIDE 40 MG/4 ML VIAL IV SCH (09:00)
--- NOTE | 2022-06-12 09:40 | ER ---
Nurse's Notes [facility] Name: José Pat Age: 72 yrs Sex: Male : 1950 Arrival Date: 06/10/2022 Time: 14:51 Bed 5 Private MD: Diagnosis: Persistent atrial fibrillation-with RVR;COPD/ Chronic obstructive pulmonary disease with (acute) exacerbation;Muscle weakness (generalized);Hyperglycemia, unspecified Presentation: 06/10 15:03 Chief complaint: Patient states: pt recent dx of covid discharged from hospital gray yesterday, coming for sob, and chest pain. Coronavirus screen: Vaccine status: Patient reports being unvaccinated. Ebola Screen: Patient denies travel to an Ebola-affected area in the 21 days before illness onset. Initial Sepsis Screen: Does the patient meet any 2 criteria?. Initial Sepsis Screen: Does the patient have a suspected source of infection? Yes: Productive cough/pneumonia. Risk Assessment: Do you want to hurt yourself or someone else? Patient reports no desire to harm self or others. 15:03 Method Of Arrival: Ambulatory 15:03 Onset of symptoms was June 04, 2022. gray 15:03 Acuity: KIT 3 gray 15:24 Acuity: KIT 2 ss Triage Assessment: 15:06 General: Appears in no apparent distress. Behavior is calm, cooperative. Pain: gray Complains of pain in chest. Respiratory: Reports shortness of breath cough that is pain with cough Onset: The symptoms/episode began/occurred gradually, the patient has moderate shortness of breath. Historical: - Allergies: 15:06 No Known Allergies; gray - PMHx: 15:06 Atrial fibrillation; CHF; COPD; Diabetes - IDDM; gray - Immunization history:: Adult Immunizations up to date. - Social history:: Smoking status: Patient reports the use of cigarette tobacco products, smokes one-half pack cigarettes per day. - Family history:: not pertinent. - Hospitalizations: : No recent hospitalization is reported. Screenin:46 Abuse screen: Denies threats or abuse. Nutritional screening: No deficits noted. tp1 Tuberculosis screening: No symptoms or risk factors identified. Fall Risk Fall in past 12 months (25 points). IV access (20 points). Ambulatory Aid- None/Bed Rest/Nurse Assist (0 pts). Gait- Weak (10 pts.). Mental Status- Oriented to own ability (0 pts). Total Baron Fall Scale indicates High Risk Score (45 or more points). Side Rails Up X 2 Placed Close to Nursing Station Frequent Obs/Assessments Occuring As available patient and family educated on Fall Prevention Program and Strategies. Assessment: 15:37 General: Appears in no apparent distress. uncomfortable, Behavior is cooperative. Pain: tp1 Complains of pain in chest Pain does not radiate. Pain currently is 5 out of 10 on a pain scale. Quality of pain is described as tight Pain began yesterday. Neuro: Level of Consciousness is awake, alert, obeys commands, Oriented to person, place, time, situation. Cardiovascular: Reports chest pain, Capillary refill < 3 seconds Clubbing of nail beds is present Patient's skin is warm and dry. Rhythm is sinus tachycardia. Respiratory: Airway is patent Respiratory effort is even, labored. Respiratory: Breath sounds are diminished bilaterally. Breath sounds with wheezes in left posterior lower lobe expiratory wheezes Onset: The symptoms/episode began/occurred yesterday. GI: No signs and/or symptoms were reported involving the gastrointestinal system. GI: Reports diarrhea, Patient currently denies nausea, vomiting. : No signs and/or symptoms were reported regarding the genitourinary system. EENT: No signs and/or symptoms were reported regarding the EENT system. Derm: Skin is pink, warm \T\ dry. Musculoskeletal: Circulation, motion, and sensation intact. 16:35 Reassessment: Patient appears in no apparent distress at this time. No changes from vg1 previously documented assessment. Patient and/or family updated on plan of care and expected duration. Pain level reassessed. Patient is alert, oriented x 3, equal unlabored respirations, skin warm/dry/pink. 16:51 Reassessment: lab at bedside. vg1 17:30 Reassessment: Patient appears in no apparent distress at this time. Patient and/or vg1 family updated on plan of care and expected duration. Pain level reassessed. Patient is alert, oriented x 3, equal unlabored respirations, skin warm/dry/pink. Patient denies pain at this time. 18:37 Reassessment: Patient appears in no apparent distress at this time. No changes from vg1 previously documented assessment. Patient is alert, oriented x 3, equal unlabored respirations, skin warm/dry/pink. Vital Signs: 15:03 BP 113 / 79; Pulse 96; Resp 22; Temp 98.3(T); Pulse Ox 90% ; Weight 133.81 kg; Height 5 gray ft. 8 in. (172.72 cm); 15:24 Pulse 123; ss 15:46 BP 107 / 76; Pulse 156; Resp 19; Temp 98.2; Pulse Ox 92% on 4 lpm NC; Pain 5/10; tp1 16:11 BP 113 / 89; Pulse 116; Pulse Ox 92% on 3 lpm NC; ap3 16:19 BP 113 / 77; Pulse 124; tp1 17:20 BP 116 / 58; Pulse 99; Resp 24; Pulse Ox 94% on 3 lpm NC; vg1 17:24 BP 116 / 58; Pulse 104; Pulse Ox 93% on 3 lpm NC; ap3 18:02 BP 116 / 70; Pulse 110; Pulse Ox 93% on 3 lpm NC; ap3 18:20 BP 121 / 76; Pulse 96; Resp 23; Pulse Ox 91% 4.5 lpm ; vg1 21:12 BP 114 / 80; Pulse 108; Resp 20; Pulse Ox 92% on 4.5 lpm NC; kl 15:03 Body Mass Index 44.85 (133.81 kg, 172.72 cm) gray ED Course: 14:51 Patient arrived in ED. am2 15:06 Triage completed. gray 15:16 Jayme Rao MD is Attending Physician. rn 15:26 Marsha Ervin RN is Primary Nurse. vg1 15:35 Inserted saline lock: 20 gauge in right antecubital area, using aseptic technique. tp1 Blood collected. 15:37 EKG done, by ED staff, reviewed by Jayme Rao MD. ap3 15:46 Patient has correct armband on for positive identification. Bed in low position. Call tp1 light in reach. Side rails up X2. 16:00 Troponin High Sensitivity Sent. kc6 16:00 Basic Metabolic Panel Sent. kc6 16:03 Client placed on continuous cardiac and pulse oximetry monitoring. NIBP monitoring tp1 applied. 16:09 XRAY Chest (1 view) In Process Unspecified. EDMS 18:01 Rl Dobbs MD is Hospitalizing Provider. rn 18:08 Dwaine Rao MD is Hospitalizing Provider. ph 18:23 Admitting physician to see patient. ap3 18:37 Arm band placed on. vg1 19:[address] via stretcher. vg1 19:15 Inserted saline lock: 20 gauge in left antecubital area, using aseptic technique. tp1 19:16 Primary Nurse role handed off by Marsha Ervin, RN mw2 19:17 role handed off by Minda Doe RN mw2 19:19 Chest For Pe Angio In Process Unspecified. EDMS 21:14 No provider procedures requiring assistance completed. Patient admitted, IV remains in kl place. Administered Medications: 16:11 Drug: NS 0.9% 500 ml Route: IV; Rate: bolus; Site: right antecubital; tp1 17:26 Follow up: IV Status: Completed infusion; IV Intake: 500ml vg1 16:19 Drug: Digoxin 0.5 mg Route: IVP; Site: right antecubital; tp1 17:20 Follow up: BP 116 / 58; Pulse 99 bpm; Resp 24 bpm; Pulse Ox 94% 3 lpm Nasal Cannula vg1 16:23 Drug: Magnesium Sulfate 1 grams Route: IVPB; Infused Over: 1 hrs; Site: right tp1 antecubital; 17:26 Follow up: IV Status: Completed infusion; IV Intake: 100ml vg1 16:35 Drug: SOLU-Medrol (methylPrednisoLONE) 125 mg Route: IVP; Site: right antecubital; vg1 17:30 Follow up: Response: No adverse reaction vg1 16:37 Drug: Xopenex (levalbuterol) (3) 1.25 mg Route: Inhalation; vg1 17:30 Follow up: Response: No adverse reaction; Marked relief of symptoms vg1 18:33 Drug: Sotalol 80 mg Route: PO; vg1 19:59 Drug: Insulin Regular Human 10 units {Co-Signature: ritika (Carina Baum RN).} Route: IVP; kl Site: left antecubital; 19:59 Drug: Insulin Regular Human 5 units {Co-Signature: blessing1 (Carina Baum RN).} Route: Sub-Q; kl Site: right upper arm; Medication: 15:46 VIS not applicable for this client. tp1 Intake: 17:26 IV: 100ml; Total: 100ml. vg1 17:26 IV: 500ml; Total: 600ml. vg1 Outcome: 18:03 Decision to Hospitalize by Provider. rn 21:14 Admitted to Med/surg via wheelchair, room 222, with oxygen, with chart. kl 21:14 Condition: stable 22:19 Patient left the ED. kl Signatures: Dispatcher [employer] EDMichelle Boss, RN RN Jayme Cheung MD MD rn Smirch, Shelby, RN RN ss Hall, Patricia RN RN Minda Shaw Amanda RN RN ap3 Rakan Ventura 2 Marsha Ervin RN RN vg1 Maday Vasquez RN RN tp1 SarahStagerGypsy RN RN Vanessa Reyna 6 Carina Baum RN lp1 Corrections: (The following items were deleted from the chart) 16:01 15:46 Temp 98.2F; tp1 tp1
--- NOTE | 2022-06-12 09:41 | EDPHYS ---
Physician Documentation [facility] Name: José Pat Age: 72 yrs Sex: Male : 1950 Arrival Date: 06/10/2022 Time: 14:51 Bed 5 Private MD: ED Physician Jayme Rao HPI: 06/10 16:19 This 72 yrs old Male presents to ER via Ambulatory with complaints of Breathing rn Difficulty, Chest Tightness. 16:19 The patient has shortness of breath at rest, with light activity. Onset: The rn symptoms/episode began/occurred yesterday. Duration: The symptoms are continuous. The patient's shortness of breath is aggravated by coughing, light activity, is alleviated by rest, sitting up, application of supplemental oxygen. Associated signs and symptoms: Pertinent positives: chest pain, non-productive cough, Pertinent negatives: hemoptysis. Severity of symptoms: At their worst the symptoms were moderate in the emergency department the symptoms are unchanged. The patient has experienced similar episodes in the past. The patient has been recently been admitted at [facility]. Pt recently admitted and discharged for COPD and COVID. Reports sob and chest pain that got worse last night, came in today because slipped out of chair, and was feeling very weak. Does not feel like injured anything from fall. . Historical: - Allergies: 15:06 No Known Allergies; gray - PMHx: 15:06 Atrial fibrillation; CHF; COPD; Diabetes - IDDM; gray - Immunization history:: Adult Immunizations up to date. - Social history:: Smoking status: Patient reports the use of cigarette tobacco products, smokes one-half pack cigarettes per day. - Family history:: not pertinent. - Hospitalizations: : No recent hospitalization is reported. ROS: 16:19 Constitutional: Negative for fever, chills, and weight loss, Eyes: Negative for injury, rn pain, redness, and discharge, Neck: Negative for injury, pain, and swelling, Cardiovascular: Negative for chest pain, palpitations, and edema, Respiratory: + for cough and wheezing Abdomen/GI: Negative for abdominal pain, nausea, vomiting, diarrhea, and constipation, Back: Negative for injury and pain, MS/Extremity: Negative for injury and deformity, Skin: Negative for injury, rash, and discoloration, Neuro: Negative for headache, weakness, numbness, tingling, and seizure. Exam: 16:10 ECG was reviewed by the Attending Physician. rn 16:23 Constitutional: This is a well developed, well nourished patient who is awake, alert, rn mild tachypnea Head/Face: Normocephalic, atraumatic. Eyes: Periorbital areas with no swelling, redness, or edema. ENT: dry MM, no stridor Cardiovascular: Tachycardic, irregular Respiratory: + mild tachypnea, coarse bilateral breath sounds with wheezing Abdomen/GI: Soft, non-tender Skin: Warm, dry MS/ Extremity: Pulses equal, no cyanosis. Neuro: Awake and alert, GCS 15 Vital Signs: 15:03 BP 113 / 79; Pulse 96; Resp 22; Temp 98.3(T); Pulse Ox 90% ; Weight 133.81 kg; Height 5 gray ft. 8 in. (172.72 cm); 15:24 Pulse 123; ss 15:46 BP 107 / 76; Pulse 156; Resp 19; Temp 98.2; Pulse Ox 92% on 4 lpm NC; Pain 5/10; tp1 16:11 BP 113 / 89; Pulse 116; Pulse Ox 92% on 3 lpm NC; ap3 16:19 BP 113 / 77; Pulse 124; tp1 17:20 BP 116 / 58; Pulse 99; Resp 24; Pulse Ox 94% on 3 lpm NC; vg1 17:24 BP 116 / 58; Pulse 104; Pulse Ox 93% on 3 lpm NC; ap3 18:02 BP 116 / 70; Pulse 110; Pulse Ox 93% on 3 lpm NC; ap3 18:20 BP 121 / 76; Pulse 96; Resp 23; Pulse Ox 91% 4.5 lpm ; vg1 21:12 BP 114 / 80; Pulse 108; Resp 20; Pulse Ox 92% on 4.5 lpm NC; kl 15:03 Body Mass Index 44.85 (133.81 kg, 172.72 cm) gray MDM: 15:16 Patient medically screened. rn 18:00 Differential diagnosis: Chronic Obstructive Pulmonary Disease pneumonia, Pneumothorax rn pulmonary edema, reactive airway disease. Data reviewed: vital signs, nurses notes, lab test result(s), EKG, radiologic studies, plain films, and as a result, I will admit patient. Counseling: I had a detailed discussion with the patient and/or guardian regarding: the historical points, exam findings, and any diagnostic results supporting the discharge/admit diagnosis, lab results, radiology results, the need for further work-up and treatment in the hospital. Response to treatment: the patient's symptoms have mildly improved after treatment, and as a result, I will admit patient. Admission orders: after a detailed discussion of the patient's condition and case, the admit orders are written by me. 18:25 ED course: Pt states takes sotalol at home, will give sotalol here for persistent afib..rn 06/10 15:20 Order name: CBC with Diff; Complete Time: 16:22 06/10 15:20 Order name: Basic Metabolic Panel 06/10 15:20 Order name: Troponin High Sensitivity 06/10 19:16 Order name: COVID-19 SARS RT PCR (Document "Date of Onset" if Symptomatic) mw2 06/10 19:56 Order name: BNP la1 06/10 21:51 Order name: NT PRO-BNP [facility] 06/10 15:20 Order name: XRAY Chest (1 view); Complete Time: 16:40 06/10 15:20 Order name: CT Chest For PE Angio 06/10 15:28 Order name: Chest For Pe Angio; Complete Time: 19:48 [facility] 06/10 15:20 Order name: IV Start; Complete Time: 15:37 06/10 15:20 Order name: O2 Per Protocol; Complete Time: 15:26 06/10 15:20 Order name: O2 Sat Monitoring; Complete Time: 15:26 06/10 15:20 Order name: Cardiac monitoring; Complete Time: 15:26 06/10 16:25 Order name: Labs - recollect needed: recollect green again; Complete Time: 16:51 bd EC:10 Rate is 143 beats/min. Rhythm is irregularly irregular. Left axis deviation noted. QRS rn interval is normal. QT interval is normal. No Q waves. T waves are Normal. No ST changes noted. Clinical impression: Atrial Fibrillation. Interpreted by me. Reviewed by me. Administered Medications: 16:11 Drug: NS 0.9% 500 ml Route: IV; Rate: bolus; Site: right antecubital; tp1 17:26 Follow up: IV Status: Completed infusion; IV Intake: 500ml vg1 16:19 Drug: Digoxin 0.5 mg Route: IVP; Site: right antecubital; tp1 17:20 Follow up: BP 116 / 58; Pulse 99 bpm; Resp 24 bpm; Pulse Ox 94% 3 lpm Nasal Cannula vg1 16:23 Drug: Magnesium Sulfate 1 grams Route: IVPB; Infused Over: 1 hrs; Site: right tp1 antecubital; 17:26 Follow up: IV Status: Completed infusion; IV Intake: 100ml vg1 16:35 Drug: SOLU-Medrol (methylPrednisoLONE) 125 mg Route: IVP; Site: right antecubital; vg1 17:30 Follow up: Response: No adverse reaction vg1 16:37 Drug: Xopenex (levalbuterol) (3) 1.25 mg Route: Inhalation; vg1 17:30 Follow up: Response: No adverse reaction; Marked relief of symptoms vg1 18:33 Drug: Sotalol 80 mg Route: PO; vg1 19:59 Drug: Insulin Regular Human 10 units {Co-Signature: blessing1 (Carina Baum RN).} Route: IVP; Site: left antecubital; 19:59 Drug: Insulin Regular Human 5 units {Co-Signature: blessing1 (Carina Baum RN).} Route: Sub-Q; Site: right upper arm; Disposition Summary: 06/10/22 18:03 Hospitalization Ordered Hospitalization Status: Observation rn Location: Telemetry/MedSurg (observation) rn Condition: Stable rn Problem: new rn Symptoms: have improved rn Bed/Room Type: Standard rn Provider: Dwiane Rao(06/10/22 18:08) Room Assignment: 222(06/10/22 20:31) Diagnosis - Persistent atrial fibrillation - with RVR rn - COPD/ Chronic obstructive pulmonary disease with (acute) exacerbation rn - Muscle weakness (generalized) rn - Hyperglycemia, unspecified rn Forms: - Medication Reconciliation Form rn - SBAR form rn Signatures: Dispatcher [employer] Renée Draper Kimberly RN RN Maru Dean RN RN Jayme Rao MD MD rn Attema, Lee, DIRECTOR SUPPLY-C DIRECTOR SUPPLY-[facility] Lisa Rojas RN RN Marsha Ervin RN RN 1 Maday Vasquez, RN RN tp1 Gypsy Hoffman RN RN gray Carina Baum RN lp1 Corrections: (The following items were deleted from the chart) 18:08 18:03 Rl Dobbs rn ph 20:31 18:03 anupam green
[2022-06-12 12:02] VITALS: BP 90/60; TEMP 97.8
--- NOTE | 2022-06-12 23:00 | P.DS ---
Admission Date: 06/11/22 Discharge Date: 06/12/22 Disposition: DC HOME/HOME HEALTH CARE Reason for Admission: A. fib RVR Consultations: Cardiology - Dr. Coulter Brief History of Present Illness: 72-year-old male with history of atrial fibrillationrecently diagnosed on chronic anticoagulation therapy, chronic diastolic congestive heart failure, COPD on home oxygen, diabetes mellitus type 2 who was recently discharged from the hospital yesterday after being diagnosed with COVID, COPD exacerbation. Upon arrival to the emergency department patient was found to be in A. fib RVR with rates around 140-150, patient also with complaints of shortness of breath and chest tightness. He was having significant wheezing on exam he was given IV steroids, nebulizer treatments and magnesium in the emergency department. After speaking with patient it was apparent that he has not gotten his medications filled ever since he was discharged in the hospital previously including his sotalol 80 mg p.o. twice daily, Eliquis or any of his steroids/inhalers that he was discharged on. Rate has currently improved to around 110, he says he feels much better after the breathing treatments. ED provider wishes to admit under observation for A. fib RVR. Patient was noted to have some lower extremity edema on exam as well, he had an echocardiogram 06/03/2022 with normal ejection fraction but diastolic dysfunction. Hospital Course: Problem List Atrial fibrillation with rvr on chronic anticoagulation with noncompliance Acute on chronic diastolic congestive heart failure COPD with exacerbation on home O24 L Diabetes mellitus type 9-ssp-fvbebuz-dependent with hyperglycemia Patient was found to be in afib with rapid rate. He was restarted on his home medications and converted to sinus rhythm. He was also treated with IV lasix with improvement. His symptoms of shortness of breath and swelling improved. Patient had not picked up medications from his prior discharges and this is the most likely reason he became symptomatic again. Discussed at length the importance of picking up the medications. He has also been hyperglycemic during his recent hospitalizations, partly worsened by steroids. A1c: 11 Disharged with 15units daily lantus. Recommended to check blood glucose levels at home, record, and take to PCP. Patient needs to follow up with PCP within 1 week. Follow up with Cardiology in 2-3 weeks. Physical exam GEN: Alert, oriented HEENT: Normal conjunctiva, sclera anicteric CV: sinus rhythm, 1+ edema bilateral lower extremities Pulm: non-labored respirations on 4.5L NC, mild b/l crackles ABD: Soft, nontender, nondistended Neuro: Normal speech, normal affect Vital Signs/Physical Exam: Temp Pulse Resp BP Pulse Ox 97.8 F 78 20 90/60 95 06/12/22 12:00 06/12/22 12:00 06/12/22 12:00 06/12/22 12:00 06/12/22 12:00 Laboratory Data at Discharge: WBC 13.2 K/uL (4.3-10.9) H 06/12/22 03:22 Hgb 16.9 g/dL (13.6-17.9) 06/12/22 03:22 Hct 52.0 % (39.6-49.0) H 06/12/22 03:22 Plt Count 157 K/uL (152-406) 06/12/22 03:22 Sodium 135 mmol/L (136-145) L 06/12/22 03:22 Potassium 4.1 mmol/L (3.5-5.1) 06/12/22 03:22 BUN 16 mg/dL (7-18) 06/12/22 03:22 Creatinine 0.74 mg/dL (0.55-1.3) 06/12/22 03:22 Glucose 363 mg/dL (74-106) H 06/12/22 03:22 Magnesium 2.0 mg/dL (1.8-2.4) 06/12/22 03:22 Total Bilirubin 0.8 mg/dL (0.2-1.0) 06/12/22 03:22 AST 13 U/L (15-37) L 06/12/22 03:22 ALT 78 U/L (12-78) 06/12/22 03:22 Alkaline Phosphatase 76 U/L (45-117) 06/12/22 03:22 Home Medications: Albuterol Inhaler [Ventolin Inhaler*] 2 puff IH Q6H PRN #1 hfa.aer.ad 03/04/21 Aspirin [Aspirin EC 81 MG] 81 mg PO DAILY #30 tablet.dr 03/04/21 Benzonatate [Tessalon Perle*] 200 mg PO TID PRN #30 cap 03/04/21 Melatonin 10 mg PO BEDTIME PRN PRN #14 tablet 03/04/21 Tamsulosin [Flomax*] 0.4 mg PO DAILY #30 cap 03/04/21 Apixaban [Eliquis] 5 mg PO BID #60 tablet 06/06/22 Mometasone/Formoterol [Dulera 200 Mcg/5 Mcg Inhaler] 2 puff IH BID #60 inhaler 06/06/22 Sotalol HCl [Betapace*] 80 mg PO BID 6AM 6PM #60 tab 06/06/22 Albuterol Neb [Proventil 0.083% Neb Soln] 2.5 mg NEB [id number] #60 amp 06/08/22 Ipratropium Neb [Atrovent*] 0.5 mg NEB [id number] #60 amp 06/08/22 Nebulizer Accessories [Aeroneb Go] 1 each MC DAILY #1 06/08/22 Nebulizer [Aeroneb Go Nebulizer] 1 each MC DAILY #1 06/08/22 predniSONE [Prednisone*] 20 mg PO BID #20 tab 06/08/22 Furosemide [Lasix] 20 mg PO DAILY 30 Days #30 tab 06/12/22 Insulin Glargine,Hum.rec.anlog [Lantus Solostar] 15 unit SQ DAILY 30 Days #2 kit 06/12/22 Metformin HCl [Glucophage*] 500 mg PO BIDWM 30 Days #60 tab 06/12/22 New Medications: Metformin HCl [Glucophage*] 500 mg PO BIDWM 30 Days #60 tab Insulin Glargine,Hum.rec.anlog [Lantus Solostar] 15 unit SQ DAILY 30 Days #2 kit Furosemide [Lasix] 20 mg PO DAILY 30 Days #30 tab Physician Discharge Instructions: Patient was found to be in afib with rapid rate. He was restarted on his home medications and converted to sinus rhythm. He was also treated with IV lasix with improvement. His symptoms of shortness of breath and swelling improved. Patient had not picked up medications from his prior discharges and this is the most likely reason he became symptomatic again. Discussed at length the importance of picking up the medications. He has also been hyperglycemic during his recent hospitalizations, partly worsened by steroids. A1c: 11 Disharged with 15units daily lantus. Recommended to check blood glucose levels at home, record, and take to PCP. Patient needs to follow up with PCP within 1 week. Follow up with Cardiology in 2-3 weeks. Time spent managing pt's care (in minutes): 45
--- NOTE | 2022-06-14 01:12 | CON ---
Mr. Pat was admitted on 06/10/2022. I saw the patient on 06/11/2022. Reason For Consultation: Atrial fibrillation. History Of Present Illness: Mr. Pat is a 72-year-old, was just discharged from the hospital a fter cardioversion for atrial fibrillation, COPD exacerbation, CHF exacerbation, and diabetes. He gray d a cardioversion while he was in the hospital and converted to sinus rhythm. He was placed on sotal ol 80 mg 1 p.o. b.i.d. along with Eliquis. He went home, did not take his medications. [facility] with rapid ventricular response, chest tightness, and shortness of breath. He denied fevers, chills, or cough. Denied any PND, orthopnea, or pedal edema. He denied any sync ope. Past Medical History: As stated above. Allergies: NONE. Review of Systems: Negative. Social History: Negative. Family History: Noncontributory. Medications: At home are supposed to be Eliquis, Lasix, sotalol, inhalers, metformin, Flomax, and pr ednisone, but he was not taking any medications. Allergies: NONE. Review of Systems: Positive for being a DNR. Social History: Negative. Family History: Noncontributory. Physical Examination: Vital Signs: When I saw him, he was in AFib at a rate of 78. After his sotalol was restarted, he wa s back in sinus rhythm. Afebrile. Blood pressure was 110/66. I's and O's were adequate. O2 satura tion was adequate. HEENT: Negative. Neck: Supple with no bruits. Chest: Clear to auscultation and percussion. Cardiac: Regular rhythm and rate. No murmurs, gallops, or rubs. Abdomen: Obese, but benign. Extremities: Trace edema. Diagnostic Data: An initial EKG was AFib, second was normal rhythm. White count was 13,000. Creati nine was normal. His glucose was 337. Chest x-ray was negative. Impression And Plan: 1.Recurrent atrial fibrillation, now back to sinus rhythm. He can go home back on sotalol 80 mg b.i .d. and Eliquis. He can take an actual sotalol as needed. 2.Chronic diastolic congestive heart failure. He needs to be back on Lasix. Continue his sotalol. 3.Chronic obstructive pulmonary disease. He needs to continue his inhalers. 4.Diabetes, on insulin and metformin. Case was discussed with Dr. Rao. No need for any further c ardiac workup at this point. His echocardiogram in May showed diastolic dysfunction with an ejectio n fraction of 55%. Aortic sclerosis without any stenosis. I will follow up with Mr. Pat as an outpatient as soon as possible. RUPERT/BASSAM Voice ID: [id number] Report ID: [id number]
--- NOTE | 2022-06-14 01:42 | CON ---
Date of Consultation: 06/11/[address] Rao on 06/10/2022. Reason For Consultation: Atrial fibrillation. History Of Present Illness: Mr. Pat is a 72-year-old male. He was just discharged from the [facility] following a cardioversion. He converted to sinus rhythm after atrial fibrillation, however, he went back into atrial fibrillation while he was in the hospital. He was started on sotalol 80 mg 1 p.o. b.i.d. along with Eliquis, but never really took his medication when he went home and comes ba ck with palpitation, shortness of breath, and chest tightness. Denied PND, orthopnea, or pedal edema . Denied any DICTATION ENDS HERE. RUPERT/BASSAM Voice ID: [id number] Report ID: [id number]
== END 2022-06-12 12:27 | disposition home health service (06) | DRG 308 ==
LOC: ER 14:51 → ERHOLD 20:01 → 2ND 21:59 → OBSVTOIN 06-11 20:22
PROVIDERS: ADMIT Hospitalist; ATTEND Hospitalist
DX: I48.91 Unspecified atrial fibrillation (principal); I50.33 Acute on chronic diastolic (congestive) heart failure; U07.1 COVID-19; J44.1 Chronic obstructive pulmonary disease with (acute) exacerbation; K57.92 Diverticulitis of intestine, part unspecified, without perforation or abscess without bleeding; I11.0 Hypertensive heart disease with heart failure; E11.65 Type 2 diabetes mellitus with hyperglycemia; E78.5 Hyperlipidemia, unspecified; F17.210 Nicotine dependence, cigarettes, uncomplicated; Z66 Do not resuscitate; Z91.19 Patient's noncompliance with other medical treatment and regimen; Z99.81 Dependence on supplemental oxygen; Z79.01 Long term (current) use of anticoagulants; Z79.82 Long term (current) use of aspirin; Z79.52 Long term (current) use of systemic steroids; Z79.4 Long term (current) use of insulin; Z79.84 Long term (current) use of oral hypoglycemic drugs; Z79.899 Other long term (current) drug therapy; Z82.49 Family history of ischemic heart disease and other diseases of the circulatory system
CPT/HCPCS: 36415; 71045; 71275; 80048; 80053; 82947; 83735; 83880; 84439; 84443; 84484; 85025; 93005; 96372; 99285; G0378; J1160; J1815; J1940; J2930; J3475; J3535; J7040; J7512; Q9967; U0003

== ENCOUNTER 2022-06-18 12:16 | Observation (INO) | payer OTHER ==
--- OUTSIDE RECORDS SUMMARY | 2022-06-18 12:19 | XMS REPORT | Continuity of Care Document ---
:1950 Author Organization [facility] t Address [address] [place] [address] Care Team Providers Name Role Phone Meghana Ayala Attending Clinician Unavailable Problems Condition Condition Condition Status Onset Resolution Last Treating Co mments Source Name Details Category Date Date Treatment Clinician Date CHF CHF Problem Active Common (congestiv (congestiv Sp anabela e heart e heart - [facility] failure) failure) [facility] Hypertensi Hypertensi Problem Active C ommon on on Spirit - [facility] Diabetes Diabetes Problem Active Commo n type 2, type 2, Spirit controlled controlled - [facility] COPD COPD Problem Active Common (chronic (chronic [facility] obstructiv obstructiv - [facility] e e St pulmonary pulmonary [place] s disease) disease) [facility] Nicotine Nicotine Problem Active Commo n dependence dependence Sp anabela - [facility] Seasonal Seasonal Problem Active Commo n allergic allergic Spirit rhinitis rhinitis - [facility] Adjustment Adjustment Problem Active C ommon disorder disorder Spirit with with - [facility] depressed depressed mood [facility] Chronic Chronic Problem Active Common fatigue fatigue [facility] - [facility] Type 2 Type 2 Problem Active Common diabetes diabetes Spirit mellitus mellitus - [facility] with with St hyperglyce hyperglyce [facility] marci, marci, Medical without without Center long-term [...] puff Com mon Ellipta Ellipta 2-12 06-11 [place] [facility] 00:00: 00:00 - [facility] 00 :00 [facility] HydrOXYzine HydrOXYzine 2018-0 Yes Meghana 1 tablet Common HCl HCl 7- [place] as needed Spirit 00:00: - [facility] 00 [facility] Ozempic Ozempic 2019- 2020- No Meghana 0.5 mg Com mon 05-11 0824 [place] [facility] 00:00: 00:00 - [facility] 00 :00 [facility] Januvia Januvia Yes Meghana as Common 11-11 [place] directed Spirit 00:00: - [facility] 00 [facility] ProAir ProAir Yes Meghana 2 puffs as Comm on RespiClick RespiClick [place] needed [facility] [place] 3 [place] 3 Yes Meghana 1 capsule Com mon [facility] Montelukast Montelukast Yes Meghana 1 tablet Common Sodium Sodium [place] in the [facility] evening [facility] Lipitor Lipitor Yes Meghana 1 tablet Comm on [facility] Losartan Losartan Yes Meghana 1 tablet Co mmon Potassium Potassium [place] [facility] Metoprolol Metoprolol Yes Meghana 1 tablet Common Tartrate Tartrate [place] with food S pirit [facility] Metformin Metformin Yes Meghana 1 tablet Common HCl HCl [place] with a [facility] meal [facility] Immunizations Ordered Immunization Filled Immunization Date Status Commen ts Source Name Name FLUZONE HIGH DOSE FLUZONE HIGH DOSE 2019-09-14 Completed Common [facility] OVER 65 OVER 65 00:00:00 [facility] Procedures This patient has no known procedures. Encounters Start End Encounter Admission Attending Care Care Encounter Source Date/Time Date/Time Type Type Clinicians Facility Department ID 2021-12-05 Outpatient MILAGROS Ayala [facility] [id number] Common 11:06:38 Meghana [id number] [facility] 2020-04-04 2020-04-04 [facility] [id number] Common 13:00:00 13:00:00 [facility] it [facility] 2020-03-22 2020-03-22 [facility] [id number] Common 15:20:00 15:20:00 [facility] it Road [facility] 2019-12-22 2019-12-22 [facility] [id number] Common 10:40:00 10:40:00 t [facility] [address] Sp[facility] [address] Road [facility] 2019-12-15 2019-12-15 [facility] [id number] Common 14:00:00 14:00:00 t [facility] [address] [facility] [facility] 2019-09-14 2019-09-14 [facility] [id number] Common 13:20:00 13:20:00 t [facility] [address] [facility] [facility] 2019-05-11 2019-05-11 [facility] [id number] Common 13:00:00 13:00:00 t [facility] [address] [facility] [facility] 2018-11-11 2018-11-11 [facility] [id number] Common 13:00:00 13:00:00 t [facility] [address] [facility] [facility] 2018-10-19 2018-10-19 [facility] [id number] Common 08:30:00 08:30:00 t [facility] [address] [facility] [facility] 2018-04-22 2018-04-22 [facility] [id number] Common 14:00:00 14:00:00 t [facility] [address] [facility] [facility] Results This patient has no known results.
--- NOTE | 2022-06-18 13:12 | RAD REPORT ---
EXAM DESCRIPTION: RAD - Chest Single View - 06/18/2022 1:05 pm CLINICAL HISTORY: CHEST PAIN Chest pain. COMPARISON: Chest Single View dated 06/10/2022; Chest Single View dated 06/07/2022; Chest Single View d ated 06/01/2022; Chest Single View dated 02/26/2021 FINDINGS: Portable technique limits examination quality. Mild bilateral interstitial lung opacities are present which may represent viral infection or mild in terstitial pulmonary edema. Small left pleural effusion. The heart is moderately enlarged. No displac ed fractures. IMPRESSION: Mild CHF.
[2022-06-18 13:14] LABS: Absolute Lymphocytes (CBC) 1.9 K/uL (0.7-4.9); Hematocrit 51.8 % (39.6-49.0); Lymphocytes % 16.6 % (15.3-44.8); MCV 90.7 fL (80-100); MPV 10.9 fL (7.6-11.3); RBC Red Blood Cell Count 5.71 M/uL (4.33-5.43)
[2022-06-18] MEDS ORDERED: METHYLPREDNISOLONE 125 MG INJ ONE (13:15)
[2022-06-18] MEDS ORDERED: ASPIRIN 81 MG CHEWABLE TABLET ONE (13:15)
[2022-06-18] MEDS ORDERED: ALBUTEROL 2.5 MG/3 ML NEB SOL ONE (13:15)
[2022-06-18] MEDS ORDERED: IPRATROPIUM BROM 0.5MG/2.5ML ONE (13:16)
[2022-06-18 13:20] LABS: Protime INR 1.06
[2022-06-18 13:33] LABS: Albumin 3.1 g/dL (3.4-5.0); Bilirubin Direct 0.3 mg/dL (0-0.2); Bilirubin Total 1.5 mg/dL (0.2-1.0); Potassium 4.3 mmol/L (3.5-5.1); Protein, Total 7.3 g/dL (6.4-8.2)
--- NOTE | 2022-06-18 14:15 | RAD REPORT ---
EXAM DESCRIPTION: US - Abdomen Exam Limited - 06/18/2022 2:07 pm CLINICAL HISTORY: elevated bilirubin Abdominal pain COMPARISON: No comparisons FINDINGS: The gallbladder is absent.. The common bile duct is not abnormally dilated. The liver demonstrates prominent fatty infiltration. IMPRESSION: Prominent fatty infiltration of the liver.
--- NOTE | 2022-06-18 14:30 | RAD REPORT ---
EXAM DESCRIPTION: CT - Chest For Pe Angio - 06/18/2022 2:18 pm CLINICAL HISTORY: Chest pain. chest pain, shortness of breath COMPARISON: Chest For Pe Angio dated 06/10/2022 TECHNIQUE: CT angiogram of the pulmonary arteries was performed with MIP. All CT scans are performed using dose optimization technique as appropriate and may include automated exposure control or mA/KV adjustment according to patient size. FINDINGS: No evidence of pulmonary thromboembolism. No acute aortic finding demonstrated. The lungs are mildly emphysematous but clear. No significant pericardial or pleural fluid. No concerning bony finding. IMPRESSION: No evidence of pulmonary thromboembolism. Mild diffuse COPD.
[2022-06-18] MEDS ORDERED: INSULIN -REGULAR HUMAN 50 UNIT/0.5 ML ML ONE (14:34)
[2022-06-18] MEDS ORDERED: ACETAMINOPHEN 500 MG TAB PO PRN (15:07)
[2022-06-18] MEDS ORDERED: MORPHINE 4 MG/ML SYR IV PRN (15:07)
[2022-06-18] MEDS ORDERED: ALPRAZOLAM 0.25 MG TABLET PO PRN (15:07)
--- NOTE | 2022-06-18 15:31 | ER ---
Nurse's Notes [facility] Name: José Pat Age: 72 yrs Sex: Male : 1950 Arrival Date: 06/18/2022 Time: 12:25 Bed 27 Private MD: Diagnosis: Chronic atrial fibrillation;COPD/ Chronic obstructive pulmonary disease with (acute) exacerbation;Patient's other noncompliance with medication regimen Presentation: 06/18 12:25 Chief complaint: EMS states: Pt c/o chest pain that started last night while in bed, ph pain is reproducible, worse w/ cough, pt has home oxygen but was not on when EMS arrived, Spo2 92% RA, improved to 96% on 2L NC, HR elevated at 110, BGL 311 which pt reports is normal for him. Coronavirus screen: Vaccine status: Patient reports being unvaccinated. Ebola Screen: No symptoms or risks identified at this time. Initial Sepsis Screen: Does the patient meet any 2 criteria? No. Patient's initial sepsis screen is negative. Does the patient have a suspected source of infection? No. Patient's initial sepsis screen is negative. Risk Assessment: Do you want to hurt yourself or someone else? Patient reports no desire to harm self or others. Note EMS reports that pt was recently d/c from hospital w/ newly prescribed meds but they were not picked up from pharmacy by family. Onset of symptoms was June 18, 2022. 12:25 Method Of Arrival: EMS: [facility] ph 12:25 Acuity: KIT 3 ph Triage Assessment: 12:33 General: Appears in no apparent distress. comfortable, Behavior is calm, cooperative, ph appropriate for age. Pain: Complains of pain in chest Pain radiates to abdomen. Neuro: Level of Consciousness is awake, alert, obeys commands, Oriented to person, place, time, situation. Cardiovascular: Reports chest pain. Respiratory: Airway is patent Respiratory effort is even, unlabored. GI: Abdomen is distended. Derm: Skin is pink, warm \\T\\ dry. Historical: - Allergies: 12:31 No Known Allergies; ph - PMHx: 12:31 Atrial fibrillation; CHF; COPD; Diabetes - IDDM; ph - Immunization history:: Adult Immunizations unknown. - Social history:: Smoking status: Patient reports the use of cigarette tobacco products, smokes one-half pack cigarettes per day. Screenin:45 Abuse screen: Denies threats or abuse. Nutritional screening: No deficits noted. em6 Tuberculosis screening: No symptoms or risk factors identified. Fall Risk Fall in past 12 months (25 points). No secondary diagnosis (0 pts). IV access (20 points). Ambulatory Aid- None/Bed Rest/Nurse Assist (0 pts). Gait- Normal/Bed Rest/Wheelchair (0 pts) Mental Status- Oriented to own ability (0 pts). Total Baron Fall Scale indicates High Risk Score (45 or more points). Fall prevention measures have been instituted. Side Rails Up X 2 Placed Close to Nursing Station Frequent Obs/Assessments Occuring As available patient and family educated on Fall Prevention Program and Strategies. Assessment: 12:50 General: Appears in no apparent distress. comfortable, Behavior is calm, cooperative. em6 Pain: Complains of pain in chest and abdomen Pain radiates to abdomen Pain currently is 5 out of 10 on a pain scale. Quality of pain is described as pressure, Pain began 2-3 days ago. Neuro: Padilla Agitation-Sedation Scale (RASS): 0 - Alert and Calm Level of Consciousness is awake, alert, obeys commands, Oriented to person, place, time, situation. Cardiovascular: Heart tones present Capillary refill < 3 seconds Rhythm is sinus tachycardia. Respiratory: Airway is patent Respiratory effort is even, unlabored, Respiratory pattern is regular, symmetrical, Breath sounds are clear in left upper lobe and left lower lobe Breath sounds with crackles in left posterior lower lobe. GI: Abdomen is round distended, Reports. : No signs and/or symptoms were reported regarding the genitourinary system. EENT: No signs and/or symptoms were reported regarding the EENT system. Derm: No signs and/or symptoms reported regarding the dermatologic system. Musculoskeletal: Circulation, motion, and sensation intact. 13:50 Reassessment: Patient appears in no apparent distress at this time. No changes from em6 previously documented assessment. Patient and/or family updated on plan of care and expected duration. Pain level reassessed. 14:50 Reassessment: Patient appears in no apparent distress at this time. No changes from em6 previously documented assessment. Patient and/or family updated on plan of care and expected duration. Pain level reassessed. 15:59 Reassessment: Patient appears in no apparent distress at this time. Patient and/or em6 family updated on plan of care and expected duration. Pain level reassessed. Patient denies pain at this time. Patient states feeling better. 17:00 Reassessment: Patient appears in no apparent distress at this time. No changes from em6 previously documented assessment. Patient and/or family updated on plan of care and expected duration. Pain level reassessed. 18:37 Reassessment: Patient appears in no apparent distress at this time. No changes from em6 previously documented assessment. Patient denies pain at this time. Patient states feeling better. Vital Signs: 12:25 BP 119 / 83; Pulse 110; Resp 18; Temp 97.9; Pulse Ox 94% on 2 lpm NC; ph 12:35 BP 109 / 80; Pulse 107; Resp 19; Pulse Ox 93% on 2 lpm NC; em6 13:30 BP 104 / 73; Pulse 55; Resp 18; Pulse Ox 93% on 2 lpm NC; em6 14:04 BP 110 / 78; Pulse 112; Resp 18; Pulse Ox 92% 2 lpm ; em6 15:25 BP 112 / 78; Pulse 116; Resp 25; Pulse Ox 90% 2 lpm ; em6 16:24 BP 98 / 80; Pulse 110; Resp 18; Pulse Ox 95% on 2 lpm NC; em6 17:30 BP 151 / 124; Pulse 82; Resp 16; Pulse Ox 96% on 2 lpm NC; em6 18:30 BP 165 / 140; Pulse 79; Resp 18; Pulse Ox 93% on 2 lpm NC; em6 ED Course: 12:25 Patient arrived in ED. ph 12:25 Feliberto Car PA is PHCP. cp 12:25 Feliberto Stokes MD is Attending Physician. cp 12:31 Triage completed. ph 12:31 Arm band placed on Patient placed in an exam room, on a stretcher, on oxygen. ph 12:40 Lisa Rojas RN is Primary Nurse. ph 12:45 Patient has correct armband on for positive identification. Bed in low position. Call em6 light in reach. Side rails up X 1. 12:45 ekg monitor on. Pulse ox on. NIBP on. em6 12:45 Oxygen administration via nasal cannula \\T\\ 2L/min. em6 12:45 Maintain EMS IV. Dressing intact. Good blood return noted. Site clean \\T\\ dry. Gauge \\T\\ em 6 site: 20 G left wrist . 12:57 COVID-19 SARS RT PCR (Document "Date of Onset" if Symptomatic) Sent. kc6 13:07 XRAY Chest (1 view) In Process Unspecified. EDMS 14:09 US Abdomen Limited In Process Unspecified. EDMS 14:19 CT Chest For PE Angio In Process Unspecified. EDMS 15:29 Jaylon Roldan MD is Hospitalizing Provider. cp 21:21 Primary Nurse role handed off by Lisa Rojas, MADELEINE 06/19 10:33 No provider procedures requiring assistance completed. Patient admitted, IV remains in ap3 place. Administered Medications: 06/18 13:25 Drug: Aspirin Chewable Tablet 324 mg Route: PO; em6 14:06 Follow up: Response: No adverse reaction em6 13:25 Drug: SOLU-Medrol (methylPrednisoLONE) 125 mg Route: IVP; Site: left wrist; em6 14:05 Follow up: Response: No adverse reaction em6 13:25 Drug: Albuterol - atroVENT (ipratropium) (3:1) (2.5 mg - 0.5 mg) 3 ml Route: Nebulizer; em6 14:04 Follow up: BP 110 / 78; Pulse 112 bpm; Resp 18 bpm; Pulse Ox 92% 2 lpm; Response: No em6 adverse reaction 14:25 Drug: Insulin Regular Human 10 units {Co-Signature: ph (Lisa Rojas RN).} Route: IVP; em6 Site: left wrist; 15:20 Follow up: Response: No adverse reaction em6 14:38 CANCELLED (Physician Discretion): Metoprolol 25 mg PO once cp 15:25 Drug: Sotalol 80 mg Route: PO; em6 16:20 Follow up: Response: No adverse reaction em6 15:25 Drug: Eliquis (apixaban) 5 mg Route: PO; em6 16:20 Follow up: Response: No adverse reaction em6 Medication: 12:45 VIS not applicable for this client. em6 Outcome: 15:30 Decision to Hospitalize by Provider. cp 06/19 10:33 Admitted to ER Hold. Please see [facility] for further documentation. ap3 Condition: good Instructed on the need for admit. 16:17 Patient left the ED. ap3 Signatures: Dispatcher [employer] EDMS Rojas, Lisa, RN RN ph Feliberto Car PA PA cp Prokisch, Amanda, RN RN ap3 Carrie Ramirez Vanessa Reyes kc6 Maria Gómez, RN RN em6 Lisa Rojas RN ph Corrections: (The following items were deleted from the chart) 06/18 13:51 13:50 Abuse screen: Denies threats or abuse. em6 em6 13:51 13:50 Nutritional screening: No deficits noted. em6 em6 13:51 13:50 Tuberculosis screening: No symptoms or risk factors identified. em6 em6 13:51 13:50 Fall Risk Fall in past 12 months (25 points). No secondary diagnosis (0 pts). IV em6 access (20 points). Ambulatory Aid- None/Bed Rest/Nurse Assist (0 pts). Gait- Normal/Bed Rest/Wheelchair (0 pts) Mental Status- Oriented to own ability (0 pts). Total Baron Fall Scale indicates High Risk Score (45 or more points). Fall prevention measures have been instituted. Side Rails Up X 2 Placed Close to Nursing Station Frequent Obs/Assessments Occuring As available patient and family educated on Fall Prevention Program and Strategies. 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
--- NOTE | 2022-06-18 15:31 | EDPHYS ---
Physician Documentation [facility] Name: José Pat Age: 72 yrs Sex: Male : 1950 Arrival Date: 06/18/2022 Time: 12:25 Bed 27 Private MD: ED Physician Feliberto Stokes HPI: 06/18 12:30 This 72 yrs old Male presents to ER via EMS with complaints of Chest Pain. cp 06/19 12:30 The patient or guardian reports chest pain that is located primarily in the substernal cp area. Onset: last night. 12:30 The pain does not radiate. Associated signs and symptoms: Pertinent positives: cp abdominal pain, cough, shortness of breath, Pertinent negatives: diaphoresis, lower extremity pain, lower extremity swelling. 12:30 The chest pain is described as aching. Duration: The patient or guardian reports a cp single episode, that is still ongoing. Severity of pain: in the emergency department the pain is unchanged despite EMS interventions. Historical: - Allergies: 06/18 12:31 No Known Allergies; ph - PMHx: 12:31 Atrial fibrillation; CHF; COPD; Diabetes - IDDM; ph - Immunization history:: Adult Immunizations unknown. - Social history:: Smoking status: Patient reports the use of cigarette tobacco products, smokes one-half pack cigarettes per day. ROS: 12:35 Eyes: Negative for injury, pain, redness, and discharge. cp 12:35 Constitutional: Negative for body aches, chills, fever, poor PO intake. 12:35 ENT: Negative for drainage from ear(s), ear pain, sore throat, difficulty swallowing, difficulty handling secretions. 12:35 Cardiovascular: Positive for chest pain, Negative for edema, palpitations. 12:35 Respiratory: Positive for cough, shortness of breath. 12:35 Abdomen/GI: Positive for abdominal pain, Negative for nausea, vomiting, and diarrhea, constipation. 12:35 Back: Negative for radiated pain. 12:35 Skin: Negative for cellulitis, rash. 12:35 Neuro: Negative for altered mental status, headache, numbness, syncope, weakness. 12:35 All other systems are negative. Exam: 12:40 Constitutional: The patient appears in no acute distress, alert, awake, cp non-diaphoretic, non-toxic, well developed, well nourished. 12:40 Head/Face: Normocephalic, atraumatic. cp 12:40 Eyes: Periorbital structures: appear normal, Conjunctiva: normal, no exudate, no injection, Sclera: no appreciated abnormality, Lids and lashes: appear normal, bilaterally. 12:40 ENT: External ear(s): are unremarkable, Nose: is normal, Mouth: Lips: moist, Oral mucosa: pink and intact, moist, Posterior pharynx: Airway: no evidence of obstruction, patent. 12:40 Neck: ROM/movement: is normal, is supple, without pain, no range of motions limitations, no meningismus. 12:40 Chest/axilla: Inspection: normal, Palpation: is normal, no crepitus, no tenderness. 12:40 Cardiovascular: Rate: tachycardic, Rhythm: regular, Edema: is not appreciated, JVD: is not appreciated. 12:40 Respiratory: the patient does not display signs of respiratory distress, Respirations: normal, no use of accessory muscles, no retractions, labored breathing, is not present, Breath sounds: bronchial sounds, that are mild, are heard diffusely, stridor, is not appreciated, wheezing: that is mild, is heard diffusely. 12:40 Abdomen/GI: Inspection: obese Bowel sounds: active, all quadrants, Palpation: soft, in all quadrants, mild abdominal tenderness, in the right upper quadrant and left upper quadrant, rebound tenderness, is not appreciated, voluntary guarding, is not appreciated, involuntary guarding, is not appreciated. 12:40 Back: CVA tenderness, is absent. 12:40 Skin: cellulitis, is not appreciated, no rash present. 12:40 Neuro: Orientation: to person, place \\T\\ time. Mentation: is normal, Motor: moves all fours, strength is normal, Sensation: is normal. 12:57 ECG was reviewed by the Attending Physician. cp Vital Signs: 12:25 BP 119 / 83; Pulse 110; Resp 18; Temp 97.9; Pulse Ox 94% on 2 lpm NC; ph 12:35 BP 109 / 80; Pulse 107; Resp 19; Pulse Ox 93% on 2 lpm NC; em6 13:30 BP 104 / 73; Pulse 55; Resp 18; Pulse Ox 93% on 2 lpm NC; em6 14:04 BP 110 / 78; Pulse 112; Resp 18; Pulse Ox 92% 2 lpm ; em6 15:25 BP 112 / 78; Pulse 116; Resp 25; Pulse Ox 90% 2 lpm ; em6 16:24 BP 98 / 80; Pulse 110; Resp 18; Pulse Ox 95% on 2 lpm NC; em6 17:30 BP 151 / 124; Pulse 82; Resp 16; Pulse Ox 96% on 2 lpm NC; em6 18:30 BP 165 / 140; Pulse 79; Resp 18; Pulse Ox 93% on 2 lpm NC; em6 MDM: 12:28 Patient medically screened. cp 13:00 Differential diagnosis: abnormal EKG, acute myocardial infarction, cholecystitis, cp Cholelithiasis costochondritis, pancreatitis, pericarditis, pleurisy, pneumonia, pneumothorax, pulmonary embolus, stable angina, unstable angina. 15:05 Data reviewed: vital signs, nurses notes, lab test result(s), EKG, radiologic studies, cp CT scan, plain films, I have discussed the patient's presentation/case with the attending Emergency Department Physician; and as a result, I will admit patient. 15:05 Test interpretation: by ED physician or midlevel provider: ECG, plain radiologic cp studies. Physician consultation: Jaylon Roldan MD was called at 15:05, was contacted at 15:05, regarding admission, to the telemetry unit. patient's condition. 06/18 12:27 Order name: Basic Metabolic Panel; Complete Time: 13:37 cp 06/18 13:37 Interpretation: Normal except: GLUC 314. cp 06/18 12:27 Order name: CBC with Diff; Complete Time: 13:24 cp 06/18 13:24 Interpretation: Normal except: WBC 11.4; RBC 5.71; HCT 51.8; MELONY% 74.1; PLT 142; NEUT A cp 8.4. 06/18 12:27 Order name: LFT's; Complete Time: 13:37 cp 06/18 13:37 Interpretation: Normal except: BILIT 1.5; BILID 0.3; ALB 3.1; GLOB 4.2; A/G 0.7. cp 06/18 12:27 Order name: Magnesium; Complete Time: 13:37 cp 06/18 12:27 Order name: NT PRO-BNP; Complete Time: 13:37 cp 06/18 12:27 Order name: PT-INR; Complete Time: 13:24 cp 06/18 12:27 Order name: Troponin HS; Complete Time: 13:37 cp 06/18 12:27 Order name: COVID-19 SARS RT PCR (Document "Date of Onset" if Symptomatic); Complete cp Time: 14:36 06/18 15:12 Order name: Basic Metabolic Panel EDMS 06/18 15:12 Order name: Basic Metabolic Panel EDMS 06/18 15:12 Order name: CBC with Automated Diff EDMS 06/18 15:12 Order name: CBC with Automated Diff EDMS 06/18 16:10 Order name: Glucose, Ancillary Testing EDMS 06/19 07:44 Order name: Glucose, Ancillary Testing EDMS 06/18 12:27 Order name: XRAY Chest (1 view); Complete Time: 13:24 cp 06/18 12:27 Order name: EKG; Complete Time: 12:35 cp 06/18 12:27 Order name: Cardiac monitoring; Complete Time: 13:03 cp 06/18 12:27 Order name: EKG - Nurse/Tech; Complete Time: 13:03 cp 06/18 13:39 Order name: US Abdomen Limited; Complete Time: 14:36 cp / 13:53 Order name: CT Chest For PE Angio; Complete Time: 14:36 cp 06/18 15:12 Order name: Case Management Consult EDMS 06/18 15:12 Order name: Heart Healthy EDME 06/19 11:22 Order name: Glucose, Ancillary Testing EDMS 06/18 12:27 Order name: IV Saline Lock; Complete Time: 13:03 cp 06/18 12:27 Order name: Labs collected and sent; Complete Time: 13:03 cp 06/18 12:27 Order name: O2 Per Protocol; Complete Time: 13:03 cp 06/18 12:27 Order name: O2 Sat Monitoring; Complete Time: 13:03 cp EC:57 Rate is 111 beats/min. Rhythm is regular. QRS interval is prolonged at 140 msec. QT cp interval is normal. T waves are Inverted in leads aVL, V2, V3. Interpreted by me. Reviewed by me. Administered Medications: 13:25 Drug: Aspirin Chewable Tablet 324 mg Route: PO; em6 14:06 Follow up: Response: No adverse reaction em6 13:25 Drug: SOLU-Medrol (methylPrednisoLONE) 125 mg Route: IVP; Site: left wrist; em6 14:05 Follow up: Response: No adverse reaction em6 13:25 Drug: Albuterol - atroVENT (ipratropium) (3:1) (2.5 mg - 0.5 mg) 3 ml Route: Nebulizer; em6 14:04 Follow up: BP 110 / 78; Pulse 112 bpm; Resp 18 bpm; Pulse Ox 92% 2 lpm; Response: No em6 adverse reaction 14:25 Drug: Insulin Regular Human 10 units {Co-Signature: ph (Lisa Rojas RN).} Route: IVP; em6 Site: left wrist; 15:20 Follow up: Response: No adverse reaction em6 14:38 CANCELLED (Physician Discretion): Metoprolol 25 mg PO once cp 15:25 Drug: Sotalol 80 mg Route: PO; em6 16:20 Follow up: Response: No adverse reaction em6 15:25 Drug: Eliquis (apixaban) 5 mg Route: PO; em6 16:20 Follow up: Response: No adverse reaction em6 Disposition Summary: 06/18/22 15:30 Hospitalization Ordered Hospitalization Status: Observation cp Provider: Jaylon Roldan cp Condition: Stable cp Problem: an acute exacerbation cp Symptoms: have improved cp Bed/Room Type: Standard cp Location: [facility] ER HOLD(06/18/22 20:57) Room Assignment: ERHOLD-(06/18/22 20:57) cg Diagnosis - Chronic atrial fibrillation cp - COPD/ Chronic obstructive pulmonary disease with (acute) exacerbation cp - Patient's other noncompliance with medication regimen cp Forms: - Medication Reconciliation Form cp - SBAR form cp Signatures: Dispatcher [employer] Lisa Fernandes RN RN ph Feliberto Car PA PA cp Marielena Ervin RN RN cg Maria Gómez RN RN em6 Lisa Rojas RN ph Corrections: (The following items were deleted from the chart) 14:38 14:37 Metoprolol 25 mg PO once ordered. cp cp 20:57 15:30 Telemetry/MedSurg (observation) cp cg 20:57 15:30 cp cg 06/20 15:12 08 12:30 Associated signs and symptoms: Pertinent positives: shortness of breath, cp Pertinent negatives: cough, lower extremity pain, lower extremity swelling, cp 06/20 15:06/19 12:35 Constitutional: Negative for body aches, chills, fever, poor PO intake, cp cp 06/20 15:06/19 12:35 Cardiovascular: Positive for chest pain, Negative for edema, palpitations, cp cp 06/20 15:06/19 12:35 Respiratory: Positive for cough, shortness of breath, cp cp 06/20 15:06/19 12:35 Abdomen/GI: Positive for abdominal pain, Negative for nausea, vomiting, and cp diarrhea, constipation, cp 06/20 15:06/19 12:35 Eyes: Negative for injury, pain, redness, and discharge, cp cp 06/20 15:06/19 12:35 ENT: Negative for drainage from ear(s), ear pain, sore throat, difficulty cp swallowing, difficulty handling secretions, cp 06/20 15:06/19 12:35 Back: Negative for radiated pain, cp cp 06/20 15:06/19 12:35 Skin: Negative for cellulitis, rash, cp cp 06/20 15:06/19 12:35 Neuro: Negative for altered mental status, headache, numbness, syncope, cp weakness, cp 06/20 15:06/19 12:35 All other systems are negative, cp cp
[2022-06-18] MEDS ORDERED: SOTALOL HCL 80 MG TAB ONE (15:32)
[2022-06-18] MEDS ORDERED: APIXABAN 5 MG TABLET ONE (15:32)
[2022-06-18] MEDS ORDERED: SOTALOL HCL 80 MG TAB PO SCH (18:00)
[2022-06-18 20:16] VITALS: BMI 34.7
--- NOTE | 2022-06-18 20:34 | P.HP ---
Certification for Inpatient Patient admitted to: Observation With expected LOS: <2 Midnights Patient will require the following post-hospital care: None Practitioner: I am a practitioner with admitting privileges, knowledge of patient current condition, hospital course, and medical plan of care. Services: Services provided to patient in accordance with Admission requirements found in Title 42 Section 412.3 of the Code of Federal Regulations Patient History Date of Service: 06/18/22 Reason for admission: Atrial fibrillation with rapid ventricular response; shortness of breath; n History of Present Illness: Patient is a 72-year-old gentleman who came to the hospital with shortness of breath. Patient was found to have atrial fibrillation with rapid ventricular response. Patient has a history of noncompliance. Patient has not been taking his medications as he was prescribed recently. Patient has been noncompliant for quite a while. He has had medications called in for him on multiple recent admissions but he has not been able to pick them up. Also arrange for him to have his medications delivered but this did not work out either. At this time, patient is clinically doing well. We will resume his beta-kvng therapy. Anticipate discharge over the next 24 to 48 hours. Allergies No Known Allergies Allergy (Verified 06/10/22 22:17) Home Medications: Albuterol Inhaler [Ventolin Inhaler*] 2 puff IH Q6H PRN #1 hfa.aer.ad 03/04/21 Aspirin [Aspirin EC 81 MG] 81 mg PO DAILY #30 tablet. 03/04/21 Benzonatate [Tessalon Perle*] 200 mg PO TID PRN #30 cap 03/04/21 Melatonin 10 mg PO BEDTIME PRN PRN #14 tablet 03/04/21 Tamsulosin [Flomax*] 0.4 mg PO DAILY #30 cap 03/04/21 Apixaban [Eliquis] 5 mg PO BID #60 tablet 06/06/22 Mometasone/Formoterol [Dulera 200 Mcg/5 Mcg Inhaler] 2 puff IH BID #60 inhaler 06/06/22 Sotalol HCl [Betapace*] 80 mg PO BID 6AM 6PM #60 tab 06/06/22 Albuterol Neb [Proventil 0.083% Neb Soln] 2.5 mg NEB [id number] #60 amp 06/08/22 Ipratropium Neb [Atrovent*] 0.5 mg NEB [id number] #60 amp 06/08/22 Nebulizer Accessories [Aeroneb Go] 1 each MC DAILY #1 06/08/22 Nebulizer [Aeroneb Go Nebulizer] 1 each MC DAILY #1 06/08/22 predniSONE [Prednisone*] 20 mg PO BID #20 tab 06/08/22 Furosemide [Lasix] 20 mg PO DAILY 30 Days #30 tab 06/12/22 Insulin Glargine,Hum.rec.anlog [Lantus Solostar] 15 unit SQ DAILY 30 Days #2 kit 06/12/22 Metformin HCl [Glucophage*] 500 mg PO BIDWM 30 Days #60 tab 06/12/22 - Past Medical/Surgical History Diabetic: Yes -: DIVERTICULITIS -: COPD -: A. fib -: Diastolic CHF -: Diabetes mellitus type 2 -: Hypertension -: Hyperlipidemia -: ABD SX-INFECTIONS POCKET OF ABD ORGANS-UNABLE TO SPECIFY AREAS Psychosocial/ Personal History: Patient lives at home with his - Family History Father Family History: Reviewed- Non-Contributory Notes: mesothelioma Mother Medical History: Heart disease, Hypertension - Social History Smoking Status: Unknown if ever smoked Alcohol use: No CD- Drugs: No Review of Systems 10-point ROS is otherwise unremarkable Physical Examination - Vital Signs Temperature: 97.9 F Blood Pressure: 140/90 Pulse: 79 Respirations: 18 Pulse Ox (%): 97 - Physical Exam General: Alert, In no apparent distress, Oriented x3 HEENT: Atraumatic, PERRLA, Mucous membr. moist/pink, EOMI, Sclerae nonicteric Neck: Supple, 2+ carotid pulse no bruit, No LAD, Without JVD or thyroid abnormality Respiratory: Clear to auscultation bilaterally, Normal air movement Cardiovascular: Regular rate/rhythm, Normal S1 S2 Gastrointestinal: Normal bowel sounds, Soft and benign, Non-distended, No tenderness Musculoskeletal: No clubbing, No swelling, No tenderness Integumentary: No rashes Neurological: Normal speech, Normal strength at 5/5 x4 extr, Sensation intact, Cranial nerves 3-12 intact, Normal affect Lymphatics: No axilla or inguinal lymphadenopathy - Studies Laboratory Data (last 24 hrs) 06/18/22 12:55: PT 11.7, INR 1.06 06/18/22 12:55: WBC 11.4 H, Hgb 17.0, Hct 51.8 H, Plt Count 142 L 06/18/22 12:55: Sodium 136, Potassium 4.3, BUN 13, Creatinine 0.77, Glucose 314 H, Magnesium 2.0, Total Bilirubin 1.5 H, AST 15, ALT 29, Alkaline Phosphatase 64 Assessment & Plan - Problems (Diagnosis) (1) COPD with exacerbation Current Visit: No Status: Acute (2) Afib Current Visit: No Status: Chronic Qualifiers: (3) CHF (congestive heart failure) Current Visit: No Status: Chronic (4) Type 2 diabetes mellitus Current Visit: No Status: Chronic Qualifiers: - Plan Plan: 1. Resume sotalol and Eliquis 2. Resume respiratory medications 3. Social work consultation to assist on patient getting his medication 4. Anticipate discharge over the next 24 hours. Discharge Plan: Home Plan to discharge in: 24 Hours - Advance Directives Does patient have a Living Will: No Does patient have a Durable POA for Healthcare: No - Code Status/Comfort Care Code Status Assessed: Yes Code Status: Full Code Critical Care: No Time Spent Managing PTS Care (In Minutes): 45
[2022-06-18] MEDS ORDERED: APIXABAN 5 MG TABLET PO SCH (21:00)
[2022-06-18] MEDS ORDERED: ALPRAZOLAM 0.25 MG TABLET ONE (21:31)
[2022-06-19 02:56] LABS: Absolute Lymphocytes (CBC) 1.1 K/uL (0.7-4.9); Hematocrit 51.9 % (39.6-49.0); Lymphocytes % 8.2 % (15.3-44.8); MCV 90.9 fL (80-100); MPV 10.6 fL (7.6-11.3); RBC Red Blood Cell Count 5.71 M/uL (4.33-5.43)
[2022-06-19 03:10] LABS: Potassium 5.1 mmol/L (3.5-5.1)
[2022-06-19] MEDS ORDERED: D50W 25 GM/50 ML SYRINGE IV PRN ×2 (03:12→03:13)
[2022-06-19] MEDS ORDERED: GLUCAGON 1 MG/VIAL IM PRN ×2 (03:12→03:13)
[2022-06-19] MEDS ORDERED: INSULIN -REGULAR HUMAN 50 UNIT/0.5 ML ML SQ ONE (03:14)
[2022-06-19] MEDS ORDERED: D10W 125 ML IV PRN (03:20)
[2022-06-19] MEDS ORDERED: INSULIN -REGULAR HUMAN 50 UNIT/0.5 ML ML ONE ×3 (04:25→12:04)
[2022-06-19] MEDS ORDERED: SOTALOL HCL 80 MG TAB PO SCH (06:00)
[2022-06-19] MEDS ORDERED: SOTALOL HCL 80 MG TAB ONE (06:19)
[2022-06-19] MEDS: INSULIN -REGULAR HUMAN 50 UNIT/0.5 ML ML SQ SCH ×2 (07:30→11:30)
[2022-06-19] MEDS ORDERED: APIXABAN 5 MG TABLET ONE (07:53)
--- NOTE | 2022-06-19 07:55 | EKG ---
Test Date: 2022-06-18 Test Time: 12:51:38 Waste Picker: PH MEASUREMENT RESULTS: Intervals: Rate: 111 AR: 192 QRSD: 140 QT: 360 QTc: 489 Xenia: P: AR: 192 QRS: -90 T: 71 INTERPRETIVE STATEMENTS: Sinus tachycardia Right bundle branch block Inferior infarct, age undetermined Abnormal ECG Compared to ECG 06/10/2022 16:31:11 Atrial premature complex(es) no longer present Myocardial infarct finding still present Electronically Signed On 06-19-22 07:52:40 CDT by Nick Coulter
[2022-06-19] MEDS ORDERED: APIXABAN 5 MG TABLET PO SCH (09:00)
[2022-06-19 13:24] VITALS: TEMP 97.9
--- NOTE | 2022-06-19 13:33 | P.DS ---
Discharge Date: 06/19/22 Disposition: ROUTINE DISCHARGE Discharge Condition: GOOD Reason for Admission: Atrial fibrillation with rapid ventricular response; shortness of breath; n - Problems (1) COPD with exacerbation Current Visit: No Status: Acute (2) Afib Current Visit: No Status: Chronic Qualifiers: (3) CHF (congestive heart failure) Current Visit: No Status: Chronic (4) Type 2 diabetes mellitus Current Visit: No Status: Chronic Qualifiers: Brief History of Present Illness: Patient is a 72-year-old gentleman who came to the hospital with shortness of breath. Patient was found to have atrial fibrillation with rapid ventricular response. Patient has a history of noncompliance. Patient has not been taking his medications as he was prescribed recently. Patient has been noncompliant for quite a while. He has had medications called in for him on multiple recent admissions but he has not been able to pick them up. Also arrange for him to have his medications delivered but this did not work out either. At this time, patient is clinically doing well. We will resume his beta-kvng therapy. Anticipate discharge over the next 24 to 48 hours. Hospital Course: Spoke to patient regarding his noncompliance. Told him the importance of getting his medications. Spoke with case management as well. They have been working on try to get medications delivered to him. Hopefully he will be able to get his medications and continue taking them at discharge. Vital Signs/Physical Exam: Temp Pulse Resp BP Pulse Ox 97.9 F 79 18 140/90 97 06/19/22 13:29 06/19/22 13:29 06/19/22 13:29 06/19/22 13:29 06/19/22 13:29 General: Alert, In no apparent distress, Oriented x3 Laboratory Data at Discharge: WBC 13.6 K/uL (4.3-10.9) H D 06/19/22 02:19 Hgb 17.1 g/dL (13.6-17.9) 06/19/22 02:19 Hct 51.9 % (39.6-49.0) H 06/19/22 02:19 Plt Count 143 K/uL (152-406) L 06/19/22 02:19 PT 11.7 SECONDS (9.5-12.5) 06/18/22 12:55 INR 1.06 06/18/22 12:55 Sodium 133 mmol/L (136-145) L 06/19/22 02:19 Potassium 5.1 mmol/L (3.5-5.1) 06/19/22 02:19 BUN 17 mg/dL (7-18) 06/19/22 02:19 Creatinine 0.89 mg/dL (0.55-1.3) 06/19/22 02:19 Glucose 490 mg/dL (74-106) H* 06/19/22 02:19 Magnesium 2.0 mg/dL (1.8-2.4) 06/18/22 12:55 Total Bilirubin 1.5 mg/dL (0.2-1.0) H 06/18/22 12:55 AST 15 U/L (15-37) 06/18/22 12:55 ALT 29 U/L (12-78) 06/18/22 12:55 Alkaline Phosphatase 64 U/L (45-117) 06/18/22 12:55 Home Medications: Albuterol Inhaler [Ventolin Inhaler*] 2 puff IH Q6H PRN #1 hfa.aer.ad 03/04/21 Aspirin [Aspirin EC 81 MG] 81 mg PO DAILY #30 tablet. 03/04/21 Benzonatate [Tessalon Perle*] 200 mg PO TID PRN #30 cap 03/04/21 Melatonin 10 mg PO BEDTIME PRN PRN #14 tablet 03/04/21 Tamsulosin [Flomax*] 0.4 mg PO DAILY #30 cap 03/04/21 Apixaban [Eliquis] 5 mg PO BID #60 tablet 06/06/22 Mometasone/Formoterol [Dulera 200 Mcg/5 Mcg Inhaler] 2 puff IH BID #60 inhaler 06/06/22 Sotalol HCl [Betapace*] 80 mg PO BID 6AM 6PM #60 tab 06/06/22 Albuterol Neb [Proventil 0.083% Neb Soln] 2.5 mg NEB [id number] #60 amp 06/08/22 Ipratropium Neb [Atrovent*] 0.5 mg NEB [id number] #60 amp 06/08/22 Nebulizer Accessories [Aeroneb Go] 1 each MC DAILY #1 06/08/22 Nebulizer [Aeroneb Go Nebulizer] 1 each MC DAILY #1 06/08/22 predniSONE [Prednisone*] 20 mg PO BID #20 tab 06/08/22 Furosemide [Lasix] 20 mg PO DAILY 30 Days #30 tab 06/12/22 Insulin Glargine,Hum.rec.anlog [Lantus Solostar] 15 unit SQ DAILY 30 Days #2 kit 06/12/22 Metformin HCl [Glucophage*] 500 mg PO BIDWM 30 Days #60 tab 06/12/22 ALPRAZolam [Xanax*] 0.25 mg PO TID PRN #30 tab 06/19/22 Apixaban [Eliquis] 5 mg PO BID #60 06/19/22 Sotalol HCl [Betapace*] 80 mg PO BID 6AM 6PM #60 tab 06/19/22 New Medications: Sotalol HCl [Betapace*] 80 mg PO BID 6AM 6PM #60 tab Apixaban [Eliquis] 5 mg PO BID #60 ALPRAZolam [Xanax*] 0.25 mg PO TID PRN #30 tab PRN Reason: Anxiety Physician Discharge Instructions: -DC IV and DC home -Follow-up with PCP in 1 to 2 weeks -Follow-up with Cardiology in 1 to 2 weeks -Please call Dr. Roldan at [phone] if any questions regarding hospital stay -Please call nursing station at [phone] if any nursing or medication questions -Return to the emergency room if symptoms worsen Diet: AHA Activity: Fall precautions Followup: NONE,NONE [Primary Care Provider] - Time spent managing pt's care (in minutes): 35
[2022-06-19 17:41] VITALS: BP 165/140; O2SAT 93
== END 2022-06-19 16:06 | disposition home or self-care (01) ==
LOC: ER 12:16 → ERHOLD 15:07
PROVIDERS: ADMIT Hospitalist; ATTEND Hospitalist
DX: I48.20 Chronic atrial fibrillation, unspecified (principal); J44.1 Chronic obstructive pulmonary disease with (acute) exacerbation; Z91.14 Patient's other noncompliance with medication regimen; I11.0 Hypertensive heart disease with heart failure; I50.32 Chronic diastolic (congestive) heart failure; E11.9 Type 2 diabetes mellitus without complications; E78.5 Hyperlipidemia, unspecified; F17.210 Nicotine dependence, cigarettes, uncomplicated; Z79.82 Long term (current) use of aspirin; Z79.01 Long term (current) use of anticoagulants; Z79.4 Long term (current) use of insulin; Z79.52 Long term (current) use of systemic steroids; Z79.84 Long term (current) use of oral hypoglycemic drugs; Z20.822 Contact with and (suspected) exposure to COVID-19; Z82.49 Family history of ischemic heart disease and other diseases of the circulatory system
CPT/HCPCS: 93005; 85025 ×2; 80048 ×2; 36415; 83735; 85610; 82947 ×3; 80076; 84484; 83880; 71275; 71045; 76705; U0003; Q9967; J1815 ×4; J2930; 94640; 96374; 96375; 99285

== ENCOUNTER 2022-07-03 19:18 | Observation (INO) | payer OTHER ==
--- OUTSIDE RECORDS SUMMARY | 2022-07-03 19:20 | XMS REPORT | Continuity of Care Document ---
:[address] [facility] t Address [address] [place] [address] Care Team Providers Name Role Phone Meghana Ayala Attending Clinician Unavailable Problems Condition Condition Condition Status Onset Resolution Last Treating Co mments Source Name Details Category Date Date Treatment Clinician Date CHF CHF Problem Active Common (congestiv (congestiv Sp anabela e heart e heart - [facility] failure) failure) [facility] Hypertensi Hypertensi Problem Active C ommon on on [facility] Diabetes Diabetes Problem Active Commo n type 2, type 2, Spirit controlled controlled - [facility] COPD COPD Problem Active Common (chronic (chronic Spirit obstructiv obstructiv - [facility] e e St pulmonary pulmonary [place] s disease) disease) [facility] Nicotine Nicotine Problem Active Commo n dependence dependence Sp anabela - [facility] Seasonal Seasonal Problem Active Commo n allergic allergic Spirit rhinitis rhinitis - [facility] Adjustment Adjustment Problem Active C ommon disorder disorder Spirit with with - [facility] depressed depressed mood [facility] Chronic Chronic Problem Active Common fatigue fatigue [facility] Type 2 Type 2 Problem Active Common diabetes diabetes Spirit mellitus mellitus - [facility] with with St hyperglyce hyperglyce [facility] marci, marci, Medical without without Center [...] puff Com mon Ellipta Ellipta 2-12 06-11 Bond [facility] 00:00: 00:00 - [facility] 00 :00 [facility] HydrOXYzine HydrOXYzine 2018-0 Yes Meghana 1 tablet Common HCl HCl 7- Bond as needed Spirit 00:00: - [facility] 00 [facility] Ozempic Ozempic 2019- 2020- No Meghana 0.5 mg Com mon 05-11 0824 Bond [facility] 00:00: 00:00 - [facility] 00 :00 [facility] Januvia Januvia Yes Meghana as Common 11-11 Bond directed Spirit 00:00: - [facility] 00 [facility] ProAir ProAir Yes Meghana 2 puffs as Comm on RespiClick RespiClick Bond needed [facility] [place] 3 Yes Meghana 1 capsule Com mon Bond [facility] Montelukast Montelukast Yes Meghana 1 tablet Common Sodium Sodium Bond in the [facility] evening [facility] Lipitor Lipitor Yes Meghana 1 tablet Comm on Bond [facility] Losartan Losartan Yes Meghana 1 tablet Co mmon Potassium Potassium Bond Sp[facility] Metoprolol Metoprolol Yes Meghana 1 tablet Common Tartrate Tartrate Bond with food S pirit [facility] Metformin Metformin Yes Meghana 1 tablet Common HCl HCl Bond with a [facility] meal [facility] Immunizations Ordered Immunization Filled Immunization Date Status Commen ts Source Name Name FLUZONE HIGH DOSE FLUZONE HIGH DOSE 2019-09-14 Completed Common [facility] OVER 65 OVER 65 00:00:00 [facility] Procedures This patient has no known procedures. Encounters Start End Encounter Admission Attending Care Care Encounter Source Date/Time Date/Time Type Type Clinicians Facility Department ID 2021-12-05 Outpatient MILAGROS Ayala [facility] [id number] Common 11:06:38 Meghana [id number] [facility] 2020-04-04 2020-04-04 [id number] Common 13:00:00 13:00:00 [facility] it [facility] 2020-03-22 2020-03-22 [facility] [id number] Common 15:20:00 15:20:00 [facility] it Road [facility] 2019-12-22 2019-12-22 [facility] [id number] Common 10:40:00 10:40:00 t [facility] [address] [facility] 2019-12-15 2019-12-15 [facility] [id number] Common 14:00:00 14:00:00 t [facility] [address] [facility] 2019-09-14 2019-09-14 [facility] [id number] Common 13:20:00 13:20:00 t [facility] [address] [facility] 2019-05-11 2019-05-11 [facility] [id number] Common 13:00:00 13:00:00 t [facility] [address] [facility] 2018-11-11 2018-11-11 [facility] [id number] Common 13:00:00 13:00:00 t [facility] [address] [facility] 2018-10-19 2018-10-19 [facility] [id number] Common 08:30:00 08:30:00 t [facility] [address] [facility] 2018-04-22 2018-04-22 [facility] [id number] Common 14:00:00 14:00:00 t [facility] [address] [facility] Results This patient has no known results.
[2022-07-03 20:22] LABS: Absolute Lymphocytes (CBC) 2.2 K/uL (0.7-4.9); Hematocrit 48.7 % (39.6-49.0); Lymphocytes % 23.3 % (15.3-44.8); MCV 90.1 fL (80-100); MPV 9.7 fL (7.6-11.3)
[2022-07-03 20:29] LABS: Protime INR 1.09
[2022-07-03 20:40] LABS: Albumin 3.2 g/dL (3.4-5.0); Bilirubin Direct 0.2 mg/dL (0-0.2); Bilirubin Total 0.7 mg/dL (0.2-1.0); Magnesium 1.8 mg/dL (1.8-2.4); Potassium 3.8 mmol/L (3.5-5.1); Protein, Total 7.3 g/dL (6.4-8.2); Troponin High Sensitivity 22.5 pg/mL (<58.9)
--- NOTE | 2022-07-03 20:46 | RAD REPORT ---
EXAM DESCRIPTION: RAD - Chest Single View - 07/03/2022 8:34 pm CLINICAL HISTORY: CHEST PAIN COMPARISON: Chest Single View dated 06/18/2022; Chest Single View dated 06/10/2022; Chest Single View da artem 06/07/2022; Chest Single View dated 06/01/2022 FINDINGS: Lines: None. Lungs: Increased opacities at the right lung base. Pleural: No significant pleural effusions or pneumothorax. Cardiac: Cardiomegaly. Bones: No acute fractures. Other: IMPRESSION: Increased opacities at the right lung base. This could reflect atelectasis and/or pneumo joon.
--- NOTE | 2022-07-03 21:53 | RAD REPORT ---
EXAM DESCRIPTION: CT - Chest For Pe Angio - 07/03/2022 9:38 pm CLINICAL HISTORY: chest pain, elevated DD COMPARISON: Chest For Pe Angio dated 06/18/2022; Chest For Pe Angio dated 06/10/2022; Chest For Pe Angio dated 06/02/2022; CTANGIO CHEST dated 03/31/2014 TECHNIQUE: Dynamically enhanced axial 3 mm thick images of the chest were obtained during administra tion of <100> mL Isovue 370 IV contrast. Coronal and oblique reconstruction images were generated and reviewed. Exam utilizes a protocol for optimal evaluation of pulmonary arterial tree. Maximum intensity projections 3D imaging was utilized All CT scans are performed using dose optimization technique as appropriate and may include automated exposure control or mA/KV adjustment according to patient size. FINDINGS: Chest Wall: No suspicious thyroid nodules or pathologic lymphadenopathy. Lungs: Mild nodularity in the left lower lobe. Emphysema. Pleura: No significant effusions or pneumothorax. Mediastinum/deb: No pathologic lymphadenopathy. Pulmonary arteries/Aorta: No filling defect identified. No aortic aneurysm. Heart: No significant pericardial effusion. Normal heart size. Upper abdomen: Reflux of contrast into the hepatic veins.Adrenal thickening without mass. Bones: No acute abnormality. Multilevel degenerative changes are present in the spine. IMPRESSION: Negative for pulmonary embolism. New left lower lobe nodularity concerning for infection or inflammation. Reflux of contrast into the hepatic veins could reflect right heart failure/strain.
--- NOTE | 2022-07-03 22:14 | ER ---
Nurse's Notes [facility] [place] [place] Name: José Pat Age: 72 yrs Sex: Male : 1950 Arrival Date: 07/03/2022 Time: 19:27 Bed 19 Private MD: Diagnosis: Chest pain, unspecified Presentation: 07/03 19:28 Chief complaint: EMS states: CP since this morning, not getting worse or better. ke1 Coronavirus screen: Vaccine status: Patient reports being unvaccinated. Ebola Screen: No symptoms or risks identified at this time. Initial Sepsis Screen: Does the patient meet any 2 criteria? RR > 20 per min. HR > 90 bpm. Yes Does the patient have a suspected source of infection? No. Patient's initial sepsis screen is negative. Risk Assessment: Do you want to hurt yourself or someone else? Patient reports no desire to harm self or others. Onset of symptoms was July 03, 2022 at 08:00. 19:28 Method Of Arrival: EMS [facility] 19:28 Acuity: KIT 3 ke1 Triage Assessment: 19:34 General: Appears in no apparent distress. Behavior is appropriate for age. Pain: [facility] Complains of pain in chest Pain does not radiate. Pain currently is 5 out of 10 on a pain scale. at worst was 8 out of 10 on a pain scale. level that patient reports is acceptable is 5 out of 10 on a pain scale. Quality of pain is described as pressure, Pain began suddenly, this am around 8 am. EENT:. Neuro: Level of Consciousness is awake, alert, Oriented to person, place, time, situation. Cardiovascular: Capillary refill < 3 seconds JVD is absent Patient's skin is warm and dry. Rhythm is sinus tachycardia Chest pain quality is. Respiratory: Airway is patent Trachea midline Respiratory effort is even, unlabored, Respiratory pattern is regular, symmetrical. GI: Abdomen is obese, Bowel sounds present X 4 quads. Historical: - Allergies: 19:33 No Known Allergies; ke1 - PMHx: 19:33 Atrial fibrillation; CHF; COPD; Diabetes - IDDM; ke1 - Immunization history:: Client reports having NOT received the Covid vaccine. - Social history:: Smoking status: Patient reports the use of cigarette tobacco products, smokes one-half pack cigarettes per day. Screenin:37 Abuse screen: Denies threats or abuse. Nutritional screening: No deficits noted. ke1 Tuberculosis screening: No symptoms or risk factors identified. Fall Risk None identified. Assessment: 20:39 Reassessment: Patient appears in no apparent distress at this time. Patient and/or ke1 family updated on plan of care and expected duration. Pain level reassessed. Vital Signs: 19:28 BP 112 / 81; Pulse 120; Resp 24; Temp 98.5; Pulse Ox 94% on R/A; Weight 107.95 kg; ke1 Height 5 ft. 7 in. (170.18 cm); Pain 5/10; 19:28 Body Mass Index 37.28 (107.95 kg, 170.18 cm) ke1 ED Course: 19:27 Patient arrived in ED. mw2 19:28 Taniya Corrales RN is Primary Nurse. ke1 19:33 Triage completed. ke1 19:37 Ind[facility] Loya F[facility]-C [facility]. kb 19:37 Feliberto Stokes MD is Attending Physician. kb 19:37 Arm band placed on right wrist. ke1 19:37 Bed in low position. Call light in reach. Side rails up X 1. ke1 20:00 Maintain EMS IV. Dressing intact. Site clean \T\ dry. Gauge \T\ site: 20 G RAC. ke 1 20:36 XRAY Chest (1 view) In Process Unspecified. EDMS 20:38 Notified ED physician of a critical lab result(s). D dimer 679. ke1 21:40 CT Chest For PE Angio In Process Unspecified. EDMS 22:14 Tim Chaidez is Hospitalizing Provider. kb 22:40 Jaylon Roldan MD is Hospitalizing Provider. kb 07/04 12:14 Primary Nurse role handed off by Taniya Corrales RN kb3 12:14 Zulema Cueto, RN is Primary Nurse. kb3 Administered Medications: 07/03 23:17 Drug: Aspirin 325 mg Route: PO; ke1 23:55 Follow up: Response: No adverse reaction ke1 Outcome: 22:14 Decision to Hospitalize by Provider. kb 07/04 16:55 Patient left the ED. iw Signatures: Dispatcher [employer] EDMS Indira Loya FNP-C FNP-Emely Leong, RN RN iw Rakan Ventura mw2 Taniya Corrales, RN RN ke1 Zulema Cueto, RN RN kb3
--- NOTE | 2022-07-03 22:15 | EDPHYS ---
Physician Documentation [facility] Name: José Pat Age: 72 yrs Sex: Male : 1950 Arrival Date: 07/03/2022 Time: 19:27 Bed 19 Private MD: ED Physician Feliberto Stokes HPI: 07/04 00:06 This 72 yrs old Male presents to ER via EMS with complaints of chest pain. kb 00:07 The patient or guardian reports chest pain that is located primarily in the substernal kb area. Onset: this morning. The pain does not radiate. Associated signs and symptoms: Pertinent positives: nausea, shortness of breath. The chest pain is described as aching. Duration: The patient or guardian reports a single episode, that is still ongoing. Modifying factors: The symptoms are alleviated by nothing. the symptoms are aggravated by nothing. Severity of pain: At its worst the pain was moderate in the emergency department the pain is unchanged. The patient has not experienced similar symptoms in the past. The patient has not recently seen a physician. Historical: - Allergies: 07/03 19:33 No Known Allergies; ke1 - PMHx: 19:33 Atrial fibrillation; CHF; COPD; Diabetes - IDDM; ke1 - Immunization history:: Client reports having NOT received the Covid vaccine. - Social history:: Smoking status: Patient reports the use of cigarette tobacco products, smokes one-half pack cigarettes per day. ROS: 07/04 00:06 Constitutional: Negative for fever, chills, and weight loss. kb Cardiovascular: Positive for chest pain, Negative for edema, orthopnea, palpitations, paroxysmal nocturnal dyspnea. All other systems are negative. Exam: 00:06 Constitutional: This is a well developed, well nourished patient who is awake, alert, kb and in no acute distress. Head/Face: Normocephalic, atraumatic. ENT: Moist Mucous membranes Cardiovascular: Regular rate and rhythm with a normal S1 and S2. No gallops, murmurs, or rubs. No pulse deficits. Respiratory: Respirations even and unlabored. No increased work of breathing. Talking in full sentences Abdomen/GI: Soft, non-tender. No distention Skin: Warm, dry with normal turgor. Normal color. MS/ Extremity: Pulses equal, no cyanosis. Neurovascular intact. Full, normal range of motion. Neuro: Awake and alert, GCS 15, oriented to person, place, time, and situation. Moves all extremities. Normal gait. Psych: Awake, alert, with orientation to person, place and time. Behavior, mood, and affect are within normal limits. 00:08 ECG was reviewed by the Attending Physician. kb Vital Signs: 07/03 19:28 BP 112 / 81; Pulse 120; Resp 24; Temp 98.5; Pulse Ox 94% on R/A; Weight 107.95 kg; ke1 Height 5 ft. 7 in. (170.18 cm); Pain 5/10; 19:28 Body Mass Index 37.28 (107.95 kg, 170.18 cm) ke1 MDM: 19:38 Patient medically screened. kb 07/04 00:05 Data reviewed: vital signs, nurses notes. Data interpreted: Pulse oximetry: on room air kb is 94 %. Interpretation: normal. Counseling: I had a detailed discussion with the patient and/or guardian regarding: the historical points, exam findings, and any diagnostic results supporting the discharge/admit diagnosis, lab results, radiology results, the need for further work-up and treatment in the hospital. Physician consultation: Aydee XIONG regarding admission, to the telemetry unit. patient's condition, and will see patient in ED. 07/03 19:38 Order name: Basic Metabolic Panel; Complete Time: 20:42 kb 07/03 19:38 Order name: CBC with Diff; Complete Time: 20:30 kb 07/03 19:38 Order name: D-Dimer; Complete Time: 20:37 kb 07/03 19:38 Order name: LFT's; Complete Time: 20:42 kb 07/03 19:38 Order name: Magnesium; Complete Time: 20:42 kb 07/03 19:38 Order name: NT PRO-BNP; Complete Time: 20:42 kb 07/03 19:38 Order name: PT-INR; Complete Time: 20:37 kb 07/03 19:38 Order name: Troponin HS; Complete Time: 20:42 kb 07/03 22:20 Order name: SARS RAPID; Complete Time: 23:12 ke1 07/04 02:44 Order name: CBC with Automated Diff; Complete Time: 03:11 EDMS 07/04 03:09 Order name: Basic Metabolic Panel; Complete Time: 03:11 EDMS 07/04 03:09 Order name: Phosphorus; Complete Time: 03:11 EDMS 07/04 03:09 Order name: Troponin High Sensitivity; Complete Time: 03:11 EDMS 07/04 03:09 Order name: Lipid Profile; Complete Time: 03:11 EDMS 07/03 19:38 Order name: XRAY Chest (1 view); Complete Time: 20:51 kb 07/03 19:38 Order name: EKG; Complete Time: 19:38 kb 07/03 19:38 Order name: Cardiac monitoring; Complete Time: 20:11 kb 07/03 19:38 Order name: EKG - Nurse/Tech; Complete Time: 20:11 kb 07/03 19:38 Order name: IV Saline Lock; Complete Time: 20:11 kb 07/03 19:38 Order name: Labs collected and sent; Complete Time: 20:11 kb 07/03 19:38 Order name: O2 Per Protocol; Complete Time: 20:11 kb 07/03 19:38 Order name: O2 Sat Monitoring; Complete Time: 20:11 kb 07/03 20:38 Order name: CT Chest For PE Angio; Complete Time: 22:03 kb 07/04 03:09 Order name: Magnesium; Complete Time: 03:11 EDMS 07/04 03:09 Order name: Thyroid Stimulating Hormone; Complete Time: 03:11 EDMS 07/04 03:19 Order name: Hemoglobin A1c; Complete Time: 03:54 EDMS 07/04 07:36 Order name: Glucose, Ancillary Testing EDMS 07/04 11:57 Order name: Glucose, Ancillary Testing EDMS EC:08 Rate is 103 beats/min. Rhythm is irregular. Left axis deviation noted. TN interval is kb prolonged at 248 msec. QRS interval is normal at 152 msec. QT interval is normal at 461 msec. Administered Medications: 07/03 23:17 Drug: Aspirin 325 mg Route: PO; ke1 23:55 Follow up: Response: No adverse reaction ke1 Disposition Summary: 07/03/22 22:14 Hospitalization Ordered Hospitalization Status: Observation kb Condition: Stable kb Problem: new kb Symptoms: are unchanged kb Bed/Room Type: Standard kb Provider: Jaylon Roldan(07/03/22 22:40) kb Location: [facility] ER [facility](07/03/22 23:26) eb1 [facility] Diagnosis - Chest pain, unspecified kb Forms: - Medication Reconciliation Form kb - SBAR form kb Signatures: Dispatcher [employer] Indira Bautista, MASTER DYER-C Yanira Castaneda RN RN eb1 Taniya Corrales RN RN ke1 Aydee Madsen PA PA sb3 Corrections: (The following items were deleted from the chart) 22:40 22:14 Tim Chaidez kb kb 23: 22:14 Telemetry/MedSurg (observation) kb eb1 23:26 22:14 kb eb1
[2022-07-03 23:05] LABS: SARS-CoV-2 Antigen Rapid Res Negative (Negative)
[2022-07-03] MEDS ORDERED: ASPIRIN 325 MG TAB ONE (23:21)
[2022-07-03] MEDS ORDERED: ACETAMINOPHEN 500 MG TAB PO PRN (23:53)
[2022-07-03] MEDS ORDERED: ONDANSETRON 4 MG/2 ML VIAL IV PRN (23:53)
[2022-07-03] MEDS ORDERED: ALBUTEROL 2.5 MG/3 ML NEB SOL NEB PRN (23:53)
[2022-07-04 01:33] VITALS: BMI 37.3
--- NOTE | 2022-07-04 02:15 | P.HP ---
Certification for Inpatient Patient admitted to: Observation With expected LOS: <2 Midnights Patient will require the following post-hospital care: None Practitioner: I am a practitioner with admitting privileges, knowledge of patient current condition, hospital course, and medical plan of care. Services: Services provided to patient in accordance with Admission requirements found in Title 42 Section 412.3 of the Code of Federal Regulations Patient History Date of Service: 07/04/22 Reason for admission: Chest Pain History of Present Illness: Patient is 72-year-old male with chronic diastolic CHF, COPD on home oxygen, A. fib, and IDDM who presented to the ED via EMS with complaints of chest pain. Patient reports that the pain began this morning, locates it to the substernal region, and describes it as pressure. He states that it has been constant and has not gotten better or worse throughout the day. He was tachycardic upon arrival to the ED. Labs significant for glucose 234, D-dimer 679, troponin high-sensitivity 22.5. WBC WNL. Afebrile. EKG without any acute changes. Chest x-ray showed increased opacities at the right lung base. This could reflect atelectasis and/or pneumonia. CTA Negative for pulmonary embolism. New left lower lobe nodularity concerning for infection or inflammation. Reflux of contrast into the hepatic veins could reflect right heart failure/strain. Given patient's multiple recent hospitalizations and cardiac history, ED provider to admit patient for observation. Allergies No Known Allergies Allergy (Verified 06/10/22 22:17) Home Medications: Albuterol Inhaler [Ventolin Inhaler*] 2 puff IH Q6H PRN #1 hfa.aer.ad 03/04/21 Aspirin [Aspirin EC 81 MG] 81 mg PO DAILY #30 tablet. 03/04/21 Benzonatate [Tessalon Perle*] 200 mg PO TID PRN #30 cap 03/04/21 Melatonin 10 mg PO BEDTIME PRN PRN #14 tablet 03/04/21 Tamsulosin [Flomax*] 0.4 mg PO DAILY #30 cap 03/04/21 Apixaban [Eliquis] 5 mg PO BID #60 tablet 06/06/22 Mometasone/Formoterol [Dulera 200 Mcg/5 Mcg Inhaler] 2 puff IH BID #60 inhaler 06/06/22 Sotalol HCl [Betapace*] 80 mg PO BID 6AM 6PM #60 tab 06/06/22 Albuterol Neb [Proventil 0.083% Neb Soln] 2.5 mg NEB [id number] #60 amp 06/08/22 Ipratropium Neb [Atrovent*] 0.5 mg NEB [id number] #60 amp 06/08/22 Nebulizer Accessories [Aeroneb Go] 1 each MC DAILY #1 06/08/22 Nebulizer [Aeroneb Go Nebulizer] 1 each MC DAILY #1 06/08/22 predniSONE [Prednisone*] 20 mg PO BID #20 tab 06/08/22 Furosemide [Lasix] 20 mg PO DAILY 30 Days #30 tab 06/12/22 Insulin Glargine,Hum.rec.anlog [Lantus Solostar] 15 unit SQ DAILY 30 Days #2 kit 06/12/22 Metformin HCl [Glucophage*] 500 mg PO BIDWM 30 Days #60 tab 06/12/22 ALPRAZolam [Xanax*] 0.25 mg PO TID PRN #30 tab 06/19/22 Apixaban [Eliquis] 5 mg PO BID #60 06/19/22 Sotalol HCl [Betapace*] 80 mg PO BID 6AM 6PM #60 tab 06/19/22 - Past Medical/Surgical History Has patient received pneumonia vaccine in the past: Yes Diabetic: Yes -: DIVERTICULITIS -: COPD -: A. fib -: Diastolic CHF -: Diabetes mellitus type 2 -: Hypertension -: Hyperlipidemia -: ABD SX-INFECTIONS POCKET OF ABD ORGANS-UNABLE TO SPECIFY AREAS Psychosocial/ Personal History: Patient lives at home with his - Family History Father Notes: mesothelioma Mother -: Heart disease, Hypertension - Social History Smoking Status: Current every day smoker Alcohol use: No CD- Drugs: No Caffeine use: No Place of Residence: Home Review of Systems Cardiovascular: Chest Pain Physical Examination - Physical Exam General: Alert, In no apparent distress HEENT: Atraumatic, PERRLA, EOMI, Sclerae nonicteric Neck: Supple, 2+ carotid pulse no bruit, No LAD, Without JVD or thyroid abnormality Respiratory: Clear to auscultation bilaterally, Normal air movement Cardiovascular: No edema, Regular rate/rhythm, Normal S1 S2 Gastrointestinal: Normal bowel sounds, No tenderness Musculoskeletal: No tenderness Integumentary: No rashes Neurological: Normal speech, Normal strength at 5/5 x4 extr, Normal tone, Normal affect - Studies Laboratory Data (last 24 hrs) 07/03/22 20:10: PT 12.0, INR 1.09 07/03/22 20:10: WBC 9.50, Hgb 16.0, Hct 48.7, Plt Count 147 L 07/03/22 20:10: Sodium 136, Potassium 3.8, BUN 9, Creatinine 0.79, Glucose 234 H, Magnesium 1.8, Total Bilirubin 0.7, AST 10 L, ALT 19, Alkaline Phosphatase 72 Assessment and Plan - Problems (Diagnosis) (1) Chest pain Current Visit: Yes Status: Acute Qualifiers: Chest pain type: other chest pain Qualified Code(s): R07.89 - Other chest pain; R07.8 - Other chest pain (2) Afib Current Visit: No Status: Chronic Qualifiers: Atrial fibrillation type: paroxysmal Qualified Code(s): I48.0 - Paroxysmal atrial fibrillation (3) CHF (congestive heart failure) Current Visit: Yes Status: Chronic Qualifiers: Heart failure type: diastolic (4) Type 2 diabetes mellitus Current Visit: Yes Status: Chronic Qualifiers: Diabetes mellitus usp insulin use: with termite technician use Diabetes mellitus complication status: with hyperglycemia Qualified Code(s): E11.65 - Type 2 diabetes mellitus with hyperglycemia; Z79.4 - CHCF (current) use of insulin - Plan -Initial troponin negative. Trend q6h -Cardiology consult. Monitor on telemetry -Patient had echo 1 month ago that showed diastolic dysfunction with normal EF, mild tricuspi regurgitation, mild pulmonary hypertension, mild annular calcification, aortic sclerosis, no stenosis. -Aspirin and atorvastatin daily -ACHS accu checks with moderate sliding scale insulin and diabetic diet. -A1C and lipid panel in morning -Monitor and replete electrolytes per protocol -Reconcile and continue home medications -Eliquis for VTE ppx -Full code Discharge Plan: Home Plan to discharge in: 24 Hours - Advance Directives Does patient have a Living Will: No Does patient have a Durable POA for Healthcare: No - Code Status/Comfort Care Code Status Assessed: Yes (Full) Critical Care: No Time Spent Managing Pts Care (In Minutes): 50
[2022-07-04 02:41] LABS: Absolute Lymphocytes (CBC) 2.6 K/uL (0.7-4.9); Hematocrit 47.9 % (39.6-49.0); MCV 90.4 fL (80-100)
[2022-07-04 03:09] LABS: Magnesium 1.9 mg/dL (1.8-2.4); Phosphorus 3.2 mg/dL (2.5-4.9); Potassium 4.2 mmol/L (3.5-5.1); Thyroid Stimulating Hormone 2.65 uIU/mL (0.360-3.740); Troponin High Sensitivity 27.1 pg/mL (<58.9)
[2022-07-04] MEDS: INSULIN -REGULAR HUMAN 50 UNIT/0.5 ML ML SQ SCH ×2 (08:50→12:15)
[2022-07-04] MEDS ORDERED: SOTALOL HCL 80 MG TAB PO SCH ×2 (09:00→18:00)
[2022-07-04] MEDS ORDERED: APIXABAN 5 MG TABLET PO SCH (09:00)
[2022-07-04] MEDS ORDERED: ENOXAPARIN 40 MG/0.4 ML SQ SCH (09:00)
[2022-07-04] MEDS ORDERED: ASPIRIN EC 81 MG TAB PO SCH (09:00)
[2022-07-04] MEDS ORDERED: ASPIRIN EC 81 MG TAB PO ONE (09:00)
[2022-07-04] MEDS ORDERED: INSULIN -REGULAR HUMAN 50 UNIT/0.5 ML ML ONE ×2 (09:00→12:30)
[2022-07-04] MEDS ORDERED: SOTALOL HCL 80 MG TAB ONE (09:01)
[2022-07-04] MEDS ORDERED: APIXABAN 5 MG TABLET ONE (09:01)
--- NOTE | 2022-07-04 10:57 | CON ---
Date of Consultation: 07/04/2022 Reason For Consultation: Chest pain. History Of Present Illness: Mr. Pat is 72. Has a history of noncompliance, anxiety, congesti ve heart failure, diabetes, COPD, atrial fibrillation. He is supposed to be taking Xanax, prednisone , metformin, inhalers, aspirin, Eliquis, Lasix, sotalol, insulin, and Flomax. He has also had a hist ory of valve replacement in the past. Not so sure if he was taking any of his medications. He does not follow up with us on a normal basis. He came in with atypical chest pain that has resolved, nega tive troponin, negative EKG. As far as atrial fibrillation is concerned, he was cardioverted in May 31 to normal sinus rhythm and he was supposed to be taking sotalol, but he has not had that as far as we are concerned. He stated he is only taking aspirin at home. Echocardiogram in May 31 was actually within normal limits as far as his ejection fraction is concerned. Past Medical History: As stated above. Allergies: NONE. Review of Systems: Negative. Social History: Negative. Family History: Noncontributory. Medications: Listed earlier. Physical Examination: Vital Signs: Stable. He is in atrial fibrillation at rate of 90. HEENT: Negative. Neck: Supple with no bruit. Chest: Clear to auscultation and percussion. Cardiac: Revealed regular rhythm and rate. No murmurs, gallops, or rubs. Abdomen: Benign. Extremities: Revealed no clubbing, cyanosis, or edema. Diagnostic Data: Showed a BNP of 1500, otherwise was normal. Impression And Plan: 1.Atypical chest pain, myocardial infarction ruled out. Can go home. I will make arrangements for outpatient Lexiscan. 2.Chronic diastolic congestive heart failure, stable. 3.Diabetes, stable. 4.Chronic obstructive pulmonary disease. 5.Atrial fibrillation. I think he should be back on sotalol 80 b.i.d. and his Eliquis, continue oth er regimen, send him home. I will make an arrangement for an outpatient Lexiscan and an appointment soon. RUPERT/BASSAM Voice ID: [id number] Report ID: [id number]
--- NOTE | 2022-07-04 14:07 | P.DS ---
Discharge Date: 07/04/22 Disposition: ROUTINE DISCHARGE Discharge Condition: GOOD Reason for Admission: Chest Pain Consultations: Cardiology Brief History of Present Illness: Patient is 72-year-old male with chronic diastolic CHF, COPD on home oxygen, A. fib, and IDDM who presented to the ED via EMS with complaints of chest pain. Patient reports that the pain began this morning, locates it to the substernal region, and describes it as pressure. He states that it has been constant and has not gotten better or worse throughout the day. He was tachycardic upon arrival to the ED. Labs significant for glucose 234, D-dimer 679, troponin high-sensitivity 22.5. WBC WNL. Afebrile. EKG without any acute changes. Chest x-ray showed increased opacities at the right lung base. This could reflect atelectasis and/or pneumonia. CTA Negative for pulmonary embolism. New left lower lobe nodularity concerning for infection or inflammation. Reflux of contrast into the hepatic veins could reflect right heart failure/strain. Given patient's multiple recent hospitalizations and cardiac history, ED provider to admit patient for observation. Hospital Course: Patient is just noncompliant. He does not take his medications. We will go ahead and restart his sotalol and his heart rate is controlled once again. At this time he is doing well and stable for discharge. I will arrange for home health so nurses can go check on him and make sure he is getting the care that he needs. If he does not want to care for himself he needs to talk with his family regarding further plan of care going forward. Cardiology has arranged for outpatient stress test. He needs to follow-up to get this done and he can follow-up with cardiology in 1 week. Follow-up with his PCP in 1 to 2 weeks. Arrange for home health prior to discharge. Vital Signs/Physical Exam: Temp Pulse Resp BP Pulse Ox 97.6 F 99 H 16 113/77 95 07/04/22 08:00 07/04/22 08:00 07/04/22 08:00 07/04/22 08:00 07/04/22 08:00 General: Alert, In no apparent distress, Oriented x3 Laboratory Data at Discharge: WBC 9.30 K/uL (4.3-10.9) 07/04/22 01:50 Hgb 15.8 g/dL (13.6-17.9) 07/04/22 01:50 Hct 47.9 % (39.6-49.0) 07/04/22 01:50 Plt Count 148 K/uL (152-406) L 07/04/22 01:50 PT 12.0 SECONDS (9.5-12.5) 07/03/22 20:10 INR 1.09 07/03/22 20:10 Sodium 139 mmol/L (136-145) 07/04/22 01:50 Potassium 4.2 mmol/L (3.5-5.1) 07/04/22 01:50 BUN 9 mg/dL (7-18) 07/04/22 01:50 Creatinine 0.85 mg/dL (0.55-1.3) 07/04/22 01:50 Glucose 180 mg/dL (74-106) H 07/04/22 01:50 Phosphorus 3.2 mg/dL (2.5-4.9) 07/04/22 01:50 Magnesium 1.9 mg/dL (1.8-2.4) 07/04/22 01:50 Total Bilirubin 0.7 mg/dL (0.2-1.0) 07/03/22 20:10 AST 10 U/L (15-37) L 07/03/22 20:10 ALT 19 U/L (12-78) 07/03/22 20:10 Alkaline Phosphatase 72 U/L (45-117) 07/03/22 20:10 Triglycerides 144 mg/dL (<150) 07/04/22 01:50 Cholesterol 150 mg/dL (<200) 07/04/22 01:50 HDL Cholesterol 36 mg/dL (40-60) L 07/04/22 01:50 Cholesterol/HDL Ratio 4.17 07/04/22 01:50 Home Medications: Albuterol Inhaler [Ventolin Inhaler*] 2 puff IH Q6H PRN #1 hfa.aer.ad 03/04/21 Aspirin [Aspirin EC 81 MG] 81 mg PO DAILY #30 tablet. 03/04/21 Benzonatate [Tessalon Perle*] 200 mg PO TID PRN #30 cap 03/04/21 Melatonin 10 mg PO BEDTIME PRN PRN #14 tablet 03/04/21 Tamsulosin [Flomax*] 0.4 mg PO DAILY #30 cap 03/04/21 Apixaban [Eliquis] 5 mg PO BID #60 tablet 06/06/22 Mometasone/Formoterol [Dulera 200 Mcg/5 Mcg Inhaler] 2 puff IH BID #60 inhaler 06/06/22 Sotalol HCl [Betapace*] 80 mg PO BID 6AM 6PM #60 tab 06/06/22 Albuterol Neb [Proventil 0.083% Neb Soln] 2.5 mg NEB [id number] #60 amp 06/08/22 Ipratropium Neb [Atrovent*] 0.5 mg NEB [id number] #60 amp 06/08/22 Nebulizer Accessories [Aeroneb Go] 1 each MC DAILY #1 06/08/22 Nebulizer [Aeroneb Go Nebulizer] 1 each MC DAILY #1 06/08/22 predniSONE [Prednisone*] 20 mg PO BID #20 tab 06/08/22 Furosemide [Lasix] 20 mg PO DAILY 30 Days #30 tab 06/12/22 Insulin Glargine,Hum.rec.anlog [Lantus Solostar] 15 unit SQ DAILY 30 Days #2 kit 06/12/22 Metformin HCl [Glucophage*] 500 mg PO BIDWM 30 Days #60 tab 06/12/22 ALPRAZolam [Xanax*] 0.25 mg PO TID PRN #30 tab 06/19/22 Physician Discharge Instructions: -DC IV and DC home -Follow-up with PCP in 1 to 2 weeks -Follow-up with Cardiology in 1 to 2 weeks -Please call Dr. Roldan at [phone] if any questions regarding hospital stay -Please call nursing station at [phone] if any nursing or medication questions -Return to the emergency room if symptoms worsen Diet: AHA Activity: Fall precautions Followup: NONE,NONE [Primary Care Provider] - Time spent managing pt's care (in minutes): 35
--- NOTE | 2022-07-04 15:11 | EKG ---
Test Date: 2022-07-03 Test Time: 20:01:19 Office Sweeper: STONE MEASUREMENT RESULTS: Intervals: Rate: 103 KS: 248 QRSD: 152 QT: 352 QTc: 461 [place]: P: KS: 248 QRS: -89 T: 23 INTERPRETIVE STATEMENTS: Sinus tachycardia with 1st degree AV block Left axis deviation Right bundle branch block Inferior infarct, age undetermined Anterior infarct, age undetermined Abnormal ECG Compared to ECG 06/18/2022 12:51:38 First degree AV block now present Left-axis deviation now present Myocardial infarct finding still present Electronically Signed On 07-04-22 15:11:28 CDT by Gianluca Garcia
[2022-07-04 17:47] VITALS: BP 112/81; TEMP 98.5; O2SAT 94
[2022-07-04] MEDS ORDERED: ATORVASTATIN 40 MG TAB PO SCH (21:00)
== END 2022-07-04 16:40 | disposition home or self-care (01) ==
LOC: ER 19:18 → ERHOLD 23:14
PROVIDERS: ADMIT Hospitalist; ATTEND Hospitalist
DX: R07.89 Other chest pain (principal); I48.0 Paroxysmal atrial fibrillation; I11.0 Hypertensive heart disease with heart failure; I50.32 Chronic diastolic (congestive) heart failure; E11.65 Type 2 diabetes mellitus with hyperglycemia; J44.9 Chronic obstructive pulmonary disease, unspecified; Z99.81 Dependence on supplemental oxygen; E78.5 Hyperlipidemia, unspecified; R91.1 Solitary pulmonary nodule; F41.9 Anxiety disorder, unspecified; Z91.19 Patient's noncompliance with other medical treatment and regimen; F17.210 Nicotine dependence, cigarettes, uncomplicated; Z95.2 Presence of prosthetic heart valve; Z79.01 Long term (current) use of anticoagulants; Z79.4 Long term (current) use of insulin; Z79.82 Long term (current) use of aspirin; Z79.52 Long term (current) use of systemic steroids; Z79.899 Other long term (current) drug therapy; Z28.310 Unvaccinated for COVID-19; Z20.822 Contact with and (suspected) exposure to COVID-19; Z87.19 Personal history of other diseases of the digestive system; Z82.49 Family history of ischemic heart disease and other diseases of the circulatory system
CPT/HCPCS: 93005; 85025 ×2; 80048 ×2; 36415; 83735 ×2; 84100; 85610; 80061; 82947 ×2; 85379; 80076; 84443; 83036; 84484 ×2; 83880; 71275; 71045; 94760; 99284; 87811; Q9967; J1815 ×2; G0378 ×2

== ENCOUNTER 2022-07-16 11:32 | Emergency (ER) | payer OTHER ==
--- OUTSIDE RECORDS SUMMARY | 2022-07-16 11:35 | XMS REPORT | Continuity of Care Document ---
:1950 Author Organization [facility] t Address [address] [place] [address] Care Team Providers Name Role Phone Meghana Ayala Attending Clinician Unavailable Problems Condition Condition Condition Status Onset Resolution Last Treating Co mments Source Name Details Category Date Date Treatment Clinician Date CHF CHF Problem Active Common (congestiv (congestiv Sp anabela e heart e heart - [facility] failure) failure) [facility] Hypertensi Hypertensi Problem Active C ommon on on Spirit - [facility] Diabetes Diabetes Problem Active Commo n type 2, type 2, Spirit controlled controlled - [facility] COPD COPD Problem Active Common (chronic (chronic Spirit obstructiv obstructiv - [facility] e e St pulmonary pulmonary [place] s disease) disease) [facility] Nicotine Nicotine Problem Active Commo n dependence dependence Sp anabela - [facility] Seasonal Seasonal Problem Active Commo n allergic allergic Spirit rhinitis rhinitis - [facility] Adjustment Adjustment Problem Active C ommon disorder disorder Spirit with with - [facility] depressed depressed mood [facility] Chronic Chronic Problem Active Common fatigue fatigue Spirit - [facility] Type 2 Type 2 Problem Active Common diabetes diabetes Spirit mellitus mellitus - [facility] with with St hyperglyce hyperglyce [facility] marci, marci, Medical without without [...] puff Com mon Ellipta Ellipta 2-12 06-11 [place] [facility] 00:00: 00:00 - [facility]I 00 :00 [facility] HydrOXYzine HydrOXYzine 2018-0 Yes Meghana 1 tablet Common HCl HCl 7- Brule as needed Spirit 00:00: - [facility]I 00 [facility] Ozempic Ozempic 2019- 2020- No Meghana 0.5 mg Com mon 05-11 0824 [place] 00:00: 00:00 - CHI 00 :00 [facility] Januvia Januvia Yes Meghana as Common 11-11 [facility] directed Spirit 00:00: - CHI 00 [facility] ProAir ProAir Yes Meghana 2 puffs as Comm on RespiClick RespiClick [facility] needed [facility] [place] [facility] [place] 3 Yes Meghana 1 capsule Com mon Brule [facility] Montelukast Montelukast Yes Meghana 1 tablet Common Sodium Sodium [place] in the [facility] evening [facility] Lipitor Lipitor Yes Meghana 1 tablet Comm on Brule [facility] Losartan Losartan Yes Meghana 1 tablet Co mmon Potassium Potassium [facility] Spir [facility] Metoprolol Metoprolol Yes Meghana 1 tablet Common Tartrate Tartrate Brule with food S pirit [facility] Metformin Metformin Yes Meghana 1 tablet Common HCl HCl [facility]le with a [facility] meal [facility] Immunizations Ordered Immunization Filled Immunization Date Status Commen ts Source Name Name FLUZONE HIGH DOSE FLUZONE HIGH DOSE 2019-09-14 Completed Common Spirit OVER 65 OVER 65 00:00:00 [facility] Procedures This patient has no known procedures. Encounters Start End Encounter Admission Attending Care Care Encounter Source Date/Time Date/Time Type Type Clinicians Facility Department ID 2021-12-[address] [facility] [id number] Common 11:06:38 Meghana [id number] [facility] 2020-04-04 2020-04-04 [facility] [id number] Common 13:00:00 13:00:00 [facility] it [facility] 2020-03-22 2020-03-22 [facility] [id number] Common 15:20:00 15:20:00 [facility] it Road [facility] 2019-12-22 2019-12-22 [facility] [id number] Common 10:40:00 10:40:00 t [facility] Road Spir it Road [facility] 2019-12-15 2019-12-15 [facility] [id number] Common 14:00:00 14:00:00 t [facility] Road Spir [facility] Road [facility] 2019-09-14 2019-09-14 [facility] [id number] Common 13:20:00 13:20:00 t [facility] Road Spir it Road [facility] 2019-05-11 2019-05-11 [facility] [id number] Common 13:00:00 13:00:00 t [facility] Road Spir it Road [facility] 2018-11-11 2018-11-11 [facility] [id number] Common 13:00:00 13:00:00 t [facility] Road Spir it Road [facility] 2018-10-19 2018-10-19 [facility] [id number] Common 08:30:00 08:30:00 t [facility] [address] Spir [facility] Road [facility] 2018-04-22 2018-04-22 [facility] [id number] Common 14:00:00 14:00:00 t [facility] Road Spir [facility] Road [facility] Results This patient has no known results.
[2022-07-16] MEDS ORDERED: NA CHLORIDE 0.9% 500 ML ONE (12:07)
[2022-07-16] MEDS ORDERED: MAGNESIUM SULFATE 1 gm IVPB 1 GM/100 ML BAG IV ONE (12:07)
[2022-07-16] MEDS ORDERED: LEVALBUTEROL 1.25 MG/3 ML NEB ONE (12:07)
[2022-07-16 12:29] LABS: Absolute Lymphocytes (CBC) 3.2 K/uL (0.7-4.9); MCV 88.4 fL (80-100); MPV 10.4 fL (7.6-11.3); RBC Red Blood Cell Count 5.43 M/uL (4.33-5.43)
[2022-07-16 12:31] LABS: Protime INR 1.11
[2022-07-16 12:35] LABS: Potassium 4.3 mmol/L (3.5-5.1); Troponin High Sensitivity 15.4 pg/mL (<58.9)
--- NOTE | 2022-07-16 12:46 | RAD REPORT ---
EXAM DESCRIPTION: RAD - Chest Single View - 07/16/2022 12:36 pm CLINICAL HISTORY: dyspnea COMPARISON: Chest Single View dated 07/03/2022; Chest Single View dated 06/18/2022; Chest Single View d ated 06/10/2022; Chest Single View dated 06/07/2022; Chest For Pe Angio dated 07/03/2022 FINDINGS: Lines: None. Lungs: Similar aeration of the lungs bilaterally. Left basilar airspace disease on the prior chest ra diograph were not well visualized, likely due to underpenetration. Pleural: No significant pleural effusions or pneumothorax. Cardiac: Cardiomegaly. Mediastinum: Within normal limits. Bones: No acute fractures. Other: None IMPRESSION: Similar aeration of the lungs compared with 07/03/2022. Underpenetration limits evaluati on of the left lung base. Prominent interstitial markings at the right lung base remain unchanged.
--- NOTE | 2022-07-16 13:59 | ER ---
Nurse's Notes [facility] Name: José Pat Age: 72 yrs Sex: Male : 1950 Arrival Date: 07/16/2022 Time: 11:36 Bed 3 Private MD: Diagnosis: COPD/ Chronic obstructive pulmonary disease with (acute) exacerbation;Persistent atrial fibrillation Presentation: 07/16 11:37 Chief complaint: EMS states: EMS CALLED BY HOME HEALTH FOR NON-COMPLIANCE. Coronavirus bp screen: Client presents with at least one sign or symptom that may indicate coronavirus-19. Standard/surgical mask placed on the client. Ebola Screen: No symptoms or risks identified at this time. Initial Sepsis Screen: Does the patient meet any 2 criteria? HR > 90 bpm. No. Patient's initial sepsis screen is negative. Does the patient have a suspected source of infection? No. Patient's initial sepsis screen is negative. Risk Assessment: Do you want to hurt yourself or someone else? Patient reports no desire to harm self or others. Onset of symptoms is unknown. 11:37 Method Of Arrival: EMS: [facility] bp 11:37 Acuity: KIT 3 bp Triage Assessment: 11:38 General: Appears in no apparent distress. comfortable, Behavior is calm, cooperative, bp appropriate for age. Pain: Denies pain. EENT: No deficits noted. Neuro: No deficits noted. Cardiovascular: Rhythm is sinus tachycardia. Respiratory: Reports shortness of breath Onset: The symptoms/episode began/occurred 3 DAYS AGO, the patient has mild shortness of breath. GI: No signs and/or symptoms were reported involving the gastrointestinal system. : No signs and/or symptoms were reported regarding the genitourinary system. Derm: No deficits noted. Musculoskeletal: No deficits noted. Historical: - Allergies: 11:38 No Known Allergies; bp - PMHx: 11:38 Atrial fibrillation; CHF; COPD; Diabetes - IDDM; bp - Immunization history:: Adult Immunizations up to date. - Social history:: Smoking status: Patient reports the use of cigarette tobacco products, unknown amount. - Family history:: not pertinent. - Hospitalizations: : No recent hospitalization is reported. Screenin:45 Abuse screen: Denies threats or abuse. Denies injuries from another. Nutritional bp screening: No deficits noted. Tuberculosis screening: No symptoms or risk factors identified. Fall Risk None identified. Assessment: 11:39 General: SEE TRIAGE NOTE. bp 13:27 Reassessment: No changes from previously documented assessment. Cardiovascular: Rhythm bp is sinus tachycardia. Respiratory: Airway is patent Respiratory effort is even, unlabored, Breath sounds are coarse bilaterally. 14:19 Reassessment: pt requesting to be d/c home states he will take his home meds at home, iw Dr. Rao spoke with pt regarding d/c will go home with steroid and inhaler prescription, pt ambulatory out of Er with steady gait. Vital Signs: 11:37 BP 140 / 70; Pulse 102; Resp 22; Temp 97.9; Pulse Ox 94% on R/A; bp 13:26 BP 120 / 71; Pulse 123; Resp 20; Pulse Ox 95% ; bp ED Course: 11:36 Patient arrived in ED. bp 11:37 Jayme Rao MD is Attending Physician. rn 11:37 Collins Monte RN is Primary Nurse. bp 11:38 Triage completed. bp 11:38 Arm band placed on. bp 11:45 Patient has correct armband on for positive identification. Bed in low position. Call bp light in reach. Side rails up X2. 11:45 Maintain EMS IV. Dressing intact. Good blood return noted. Site clean \T\ dry. Gauge \T\ bp site: 20 L HAND. 14:21 No provider procedures requiring assistance completed. IV discontinued, intact, iw bleeding controlled, No redness/swelling at site. Pressure dressing applied. Administered Medications: 12:18 Drug: Xopenex (levalbuterol) (3) 1.25 mg Route: Inhalation; iw 12:18 Drug: Magnesium Sulfate 1 grams Route: IVPB; Infused Over: 1 hrs; Site: left hand; iw 12:18 Drug: NS 0.9% 500 ml Route: IV; Rate: bolus; Site: left hand; iw Medication: 14:21 VIS not applicable for this client. iw Outcome: 13:59 Discharge ordered by . rn 14:21 Discharged to home ambulatory. iw 14:21 Condition: good 14:21 Discharge instructions given to patient, Instructed on discharge instructions, follow up and referral plans. medication usage, Demonstrated understanding of instructions, follow-up care, medications, Prescriptions given X 2. 14:21 Patient left the ED. iw Signatures: Emely Price RN RN Jayme Yang MD MD rn Peltier, Brian, RN RN bp
--- NOTE | 2022-07-16 14:00 | EDPHYS ---
Physician Documentation [facility] Name: José Pat Age: 72 yrs Sex: Male : 1950 Arrival Date: 07/16/2022 Time: 11:36 Bed 3 Private MD: ED Physician Jayme Rao HPI: 07/16 11:39 This 72 yrs old Male presents to ER via EMS with complaints of Shortness Of Breath. rn 11:39 The patient has shortness of breath at rest, with light activity. Onset: The rn symptoms/episode began/occurred at an unknown time. Duration: The symptoms are intermittent. The patient's shortness of breath is aggravated by coughing, exertion, light activity, is alleviated by nebulizer treatment, application of supplemental oxygen. Associated signs and symptoms: Pertinent positives: non-productive cough, Pertinent negatives: fever, hemoptysis. Severity of symptoms: At their worst the symptoms were moderate in the emergency department the symptoms have improved. The patient has not experienced similar symptoms in the past. The patient has not recently seen a physician. Pt reports has COPD, recent admission, + sob for last couple of days. No fever. On home O2. Given solumedrol albuterol/atrovent prior to arrival with improvement of symptoms. . Historical: - Allergies: 11:38 No Known Allergies; bp - PMHx: 11:38 Atrial fibrillation; CHF; COPD; Diabetes - IDDM; bp - Immunization history:: Adult Immunizations up to date. - Social history:: Smoking status: Patient reports the use of cigarette tobacco products, unknown amount. - Family history:: not pertinent. - Hospitalizations: : No recent hospitalization is reported. ROS: 11:39 Constitutional: Negative for fever, chills, and weight loss, Eyes: Negative for injury, rn pain, redness, and discharge, Cardiovascular: Negative for chest pain, palpitations, and edema, Respiratory: Negative for pleuritic chest pain Abdomen/GI: Negative for abdominal pain, nausea, vomiting, diarrhea, and constipation, Back: Negative for injury and pain, MS/Extremity: Negative for injury and deformity, Skin: Negative for injury, rash, and discoloration, Neuro: Negative for headache, numbness, tingling, and seizure. Exam: 11:39 Constitutional: This is a well developed, well nourished patient who is awake, alert, rn and in no acute distress, on nebulizer mask. Head/Face: Normocephalic, atraumatic. ENT: no stridor, + Dry MM Cardiovascular: Tachycardic, irregular Respiratory: Mild tachypnea, no retractions, faint wheezing Abdomen/GI: soft, non-tender Skin: Warm, dry MS/ Extremity: Pulses equal, no cyanosis. Neuro: Awake and alert, GCS 15 16:26 ECG was reviewed by the Attending Physician. rn Vital Signs: 11:37 BP 140 / 70; Pulse 102; Resp 22; Temp 97.9; Pulse Ox 94% on R/A; bp 13:26 BP 120 / 71; Pulse 123; Resp 20; Pulse Ox 95% ; bp MDM: 11:37 Patient medically screened. rn 13:57 Differential diagnosis: Anemia Anxiety Reaction Bronchitis CHF exacerbation, Chronic rn Obstructive Pulmonary Disease Myocardial Infarction pneumonia, Pneumothorax pulmonary edema. Data reviewed: vital signs, nurses notes, lab test result(s), EKG, radiologic studies, plain films. Counseling: I had a detailed discussion with the patient and/or guardian regarding: the historical points, exam findings, and any diagnostic results supporting the discharge/admit diagnosis, lab results, radiology results, the need for further work-up and treatment in the hospital. Response to treatment: the patient's symptoms have markedly improved after treatment. Refusal of service: The patient/guardian displays adequate decision making capability and despite a detailed discussion of alternatives, benefits, risks, and consequences refuses: Admission to the hospital for further work-up and treatment, Medications. ED course: Pt tachycardic, hx of afib, can't tell me what meds he takes at home, refuses observation in ER or in hospital, states "heart rate always 130s". States has home healthcare and does not want to stay even for medications to slow his HR. Refuses any further intervention or medication, understands risks of leaving at this point. Given strict return precautions. . 07/16 11:38 Order name: XRAY CXR (1 view) rn 07/16 12:31 Order name: Protime (+INR); Complete Time: 13:53 EDMS 07/16 12:31 Order name: PTT, Activated Partial Thromb; Complete Time: 13:53 EDMS 07/16 12:35 Order name: Basic Metabolic Panel; Complete Time: 13:53 EDMS 07/16 12:35 Order name: Troponin High Sensitivity; Complete Time: 13:53 EDMS 07/16 12:35 Order name: NT PRO-BNP; Complete Time: 13:53 EDMD 07/16 12:35 Order name: CBC with Automated Diff; Complete Time: 13:53 EDMD 07/16 12:46 Order name: RAD; Complete Time: 13:53 EDMD 07/16 11:38 Order name: EKG; Complete Time: 22:23 rn 07/16 11:38 Order name: Cardiac monitoring; Complete Time: 12:19 rn 07/16 11:38 Order name: EKG - Nurse/Tech; Complete Time: 12:29 rn 07/16 11:38 Order name: IV Saline Lock; Complete Time: 12:29 rn 07/16 11:38 Order name: Labs collected and sent; Complete Time: 12:29 rn 07/16 11:38 Order name: O2 Per Protocol; Complete Time: 12:29 rn 07/16 11:38 Order name: O2 Sat Monitoring; Complete Time: 12:19 rn 07/16 13:15 Order name: Diet Regular; Complete Time: 22:26 em1 EC:26 Rate is 120 beats/min. Rhythm is regular. Left axis deviation noted. QRS is positive in rn lead I and negative in lead aVF. OR interval is prolonged at 232 msec. QRS interval is normal. QT interval is normal. No Q waves. T waves are Normal. No ST changes noted. Clinical impression: 1st degree heart block and Sinus tachycardia. Interpreted by me. Reviewed by me. Administered Medications: 12:18 Drug: Xopenex (levalbuterol) (3) 1.25 mg Route: Inhalation; iw 12:18 Drug: Magnesium Sulfate 1 grams Route: IVPB; Infused Over: 1 hrs; Site: left hand; iw 12:18 Drug: NS 0.9% 500 ml Route: IV; Rate: bolus; Site: left hand; iw Disposition Summary: 07/16/22 13:59 Discharge Ordered Location: Home rn Problem: an acute exacerbation rn Symptoms: have improved rn Condition: Stable rn Diagnosis - COPD/ Chronic obstructive pulmonary disease with (acute) exacerbation rn - Persistent atrial fibrillation rn Followup: rn - With: Private Physician - When: 1 - 2 days - Reason: Recheck today's complaints, Re-evaluation by your physician Discharge Instructions: - Discharge Summary Sheet rn - Chronic Obstructive Pulmonary Disease Exacerbation rn Forms: - Medication Reconciliation Form rn - Thank You Letter rn - Antibiotic internal security manager - Prescription Opioid Use rn Prescriptions: - albuterol sulfate 90 mcg/actuation Inhalation HFA aerosol inhaler - inhale 2 puff by INHALATION route every 4-6 hours; 1 Pump; Refills: 0, Product rn Selection Permitted - Prednisone 20 mg Oral Tablet - take 3 tablets by ORAL route once daily for 5 days; 15 tablet; Refills: 0, rn Product Selection Permitted Signatures: Dispatcher [employer] Emely Souza RN RN iw Nieto, Roman, MD MD rn Peltier, Brian, RN RN bp Corrections: (The following items were deleted from the chart) 11:43 11:39 Constitutional: This is a well developed, well nourished patient who is awake, rn alert, and in no acute distress. rn
--- NOTE | 2022-07-17 12:50 | EKG ---
Test Date: 2022-07-16 Test Time: 12:21:23 Salsa Dance Instructor: BHAVNA MEASUREMENT RESULTS: Intervals: Rate: 120 NJ: 232 QRSD: 146 QT: 394 QTc: 556 [place]: P: [place]: 232 QRS: -83 T: 64 INTERPRETIVE STATEMENTS: Sinus tachycardia with 1st degree AV block with premature atrial complexes Left axis deviation Right bundle branch block Inferior infarct, age undetermined Anterior infarct, age undetermined Abnormal ECG Compared to ECG 07/03/2022 20:01:19 Atrial premature complex(es) now present Myocardial infarct finding still present Electronically Signed On 07-17-22 12:49:12 CDT by Gianluca Garcia
== END 2022-07-16 14:21 | disposition home or self-care (01) ==
LOC: ER 11:32
DX: J44.1 Chronic obstructive pulmonary disease with (acute) exacerbation (principal); I48.19 Other persistent atrial fibrillation; I50.9 Heart failure, unspecified; Z72.0 Tobacco use
CPT/HCPCS: 93005; 85025; 80048; 36415; 85610; 85730; 84484; 83880; 71045; 96374; 99284; J7614; J3475; J7040

== ENCOUNTER 2022-08-10 16:31 | Inpatient (IN) | payer OTHER ==
--- OUTSIDE RECORDS SUMMARY | 2022-08-10 16:38 | XMS REPORT | Continuity of Care Document ---
:1950 Author Organization [facility] [place] t Address [address] [place] [address] Care Team Providers Name Role Phone Pcp, Patient Does Not Have A Primary Care Physician [id number] Meghana Ayala Attending Clinician Unavailable Cristian SALVADOR, [place] Attending Clinician Unavailable Charlene Butt DO Attending Clinician Atul Stephens MD Attending Clinician Berna Alcantar MD Attending Clinician BERNA ALCANTAR Attending Clinician Unavailable Orlando Cannon MD Attending Clinician Berna Alcantar MD Admitting Clinician [phone] BERNA ALCANTAR Admitting Clinician Unavailable Payers Payer Name Policy Type Policy Number Effective Date Expiration Date S ource Problems Condition Condition Condition Status Onset Resolution Last Treating Co mments Source Name Details Category Date Date Treatment Clinician Date Acute on Acute on Disease Active Unive rs chronic chronic - ity of combined combined 00:00: [place] systolic systolic 00 Medica l and and Branch diastolic diastolic congestive congestive heart heart failure failure Atrial Atrial Disease Active Univers flutter flutter 07-21 ity of with rapid with rapid 00:00[place] ventricula ventricula 00 Me dical r response r response Br anch Obesity Obesity Disease Active Univers (BMI (BMI 9-11 ity of 30-39.9) 30-39.9) 00:00: [place] 00 Medical Branch Cigarette Cigarette Disease Active Uni vers smoker smoker 07-21 ity of 00:00: 00 Medical Branch Type 2 Type 2 Disease Active Univers diabetes diabetes 07-21 ity of mellitus mellitus 00:00: [place] without without 00 Medical complicati complicati Br anch on, on, without without long-term long-term current current use of use of insulin insulin Chest Chest Disease Active Univers pain, pain, 9- ity of unspecifie unspecifie 00:00: [place] d type d type 00 Medical Branch HFrEF HFrEF Disease Active Overview: Univer s (heart (heart 07-20 Formattin ity of failure failure 00:00: g of this [place] with with 00 note Medical reduced reduced might be Branch ejection ejection different fraction) fraction) from the original. Added automatic ally from request for surgery [id number] CHF CHF Problem Active Common (congestiv (congestiv Sp anabela e heart e heart - [facility] failure) failure) [facility] Hypertensi Hypertensi Problem Active C ommon on on Spirit [facility] Diabetes Diabetes Problem Active Commo n type 2, type 2, Spirit controlled controlled - [facility] COPD COPD Problem Active Common (chronic (chronic Spirit obstructiv obstructiv - [facility] e e St pulmonary pulmonary [place] s disease) disease) [facility] Nicotine Nicotine Problem Active Commo n dependence dependence Sp anabela - [facility] Seasonal Seasonal Problem Active Commo n allergic allergic Spirit rhinitis rhinitis - [facility] Adjustment Adjustment Problem Active C ommon disorder disorder Spirit with with - [facility] depressed depressed mood mood [facility] Chronic Chronic Problem Active Common fatigue fatigue Spirit - [facility] Type 2 Type 2 Problem Active Common diabetes diabetes Spirit mellitus mellitus - [facility] with with St hyperglyce hyperglyce Anupama kes marci, marci, Medical without without Center long-term long-term current current use of use of insulin insulin Allergies, Adverse Reactions, Alerts Allergy Allergy Status Severity Reaction(s) Onset Inactive Treating Comm ents Source Name Type Date Date Clinician NO KNOWN Drug Active Univers ALLERGIE Class ity of [facility] Social History Social Habit Start Date Stop Date Quantity Comments Source History of Cigarette Smoker Universi ty of tobacco use [place] [facility] History SDMD Food 2022-07-29 2022-07-29 1 Univers ity of Worry 00:00:00 00:00:00 [place] [facility] History SDOH Food 2022-07-29 2022-07-29 1 Univers ity of Scarcity 00:00:00 00:00:00 [place] [facility] History SDOH 2022-07-29 2022-07-29 2 University o f Transport Med 00:00:00 00:00:00 [place] Medic al Branch History [facility] 2022-07-29 2022-07-29 2 University o f Transport Non-Med 00:00:00 00:00:00 [facility] [place] [facility] edical Branch Tobacco use and 2022-07-21 2022-07-21 Smokeless tobacco Un iversity of exposure 00:00:00 00:00:[address] non-[address] [facility] Exposure to 2022-07-10 2022-07-20 Not sure [facility] SARS-CoV-2 00:00:00 10:56:00 [facility] (event) Branch Sex Ass[birth year] At [birth year] Universit y of 00:00:00 00:00:[address] [facility] Smoking Status Start Date Stop Date Source Smokes tobacco daily 2022-07-21 00:00:00 [facility] Medications Ordered Filled Start Stop Current Ordering Indication Dosage Frequency Signature Comments Components Source Medication Medication Date Date Medication? Clinician (SIG) Name Name furosemide Yes 40mg 40 mg, Unive rs (LASIX) 07-28 Oral, BID, ity of tablet 40 13:00: First dose [place] mg 00 (after Medical last Branch modificati on) on 07/28/22 at 0800, Until Discontinu ed, Routine furosemide 40mg 40 mg, Univ ers (LASIX) 07-28 Oral, BID, ity o f tablet 40 13:00: 04:46 First dose [place] mg 00 :24 (after Medical last Branch modificati on) on 07/28/22 at 0800, Until Discontinu ed, Routine furosemide Yes [id number] 40mg Take 1 Univers 40 mg 9-18 tablet by ity of tablet 00:00: mouth in [place] 00 the Medical morning Branch and 1 tablet in the evening. metoprolol 2021-0 Yes [id number] 50mg Take 1 Univers succinate 9-18 tablet by ity o f XL 50 mg 24 00:00: mouth in [place] hr tablet 00 the Medical morning. Branch spironolact 2021-0 Yes [id number] 25mg Take 1 Univers one 25 mg 9-18 tablet by ity o f tablet 00:00: mouth in [place] 00 the Medical morning. Branch furosemide 2021-0 Yes [id number] 40mg Take 1 Univers 40 mg 9-18 tablet by ity of tablet 00:00: mouth in [place] 00 the Medical morning Branch and 1 tablet in the evening. metoprolol 2021-0 Yes [id number] 50mg Take 1 Univers succinate 9-18 tablet by ity o f XL 50 mg 24 00:00: mouth in [place] hr tablet 00 the Medical morning. Branch spironolact 2021-0 Yes [id number] 25mg Take 1 Univers one 25 mg 9-18 tablet by ity o f tablet 00:00: mouth in [place] 00 the Medical morning. Branch furosemide 2021-0 Yes [id number] 40mg Take 1 Univers 40 mg 9-18 tablet by ity of tablet 00:00: mouth in [place] 00 the Medical morning Branch and 1 tablet in the evening. metoprolol 2021-0 Yes [id number] 50mg Take 1 Univers succinate 9-18 tablet by ity o f XL 50 mg 24 00:00: mouth in [place] hr tablet 00 the Medical morning. Branch spironolact 2021-0 Yes [id number] 25mg Take 1 Univers one 25 mg 9-18 tablet by ity o f tablet 00:00: mouth in [place] 00 the Medical morning. Branch aspirin 2021-0 Yes 81mg Take 81 mg Univ ers (ASPIR-LOW 9-17 by mouth 2 ity of ORAL) 21:46: (two) [place] 23 times Medical daily. Branch insulin 2021-0 Yes 15U inject 15 Unive rs glargine,hu 9-17 Units ity of m.rec.anlog 21:46: under the [place] (LANTUS 23 skin. Medical U-100 Branch INSULIN SC) losartan 25 2022-0 Yes 1{tbl} Take 1 Un rita mg tablet 9-17 tablet by ity o f 21:46: mouth in [place] 23 the Medical morning. Branch montelukast Yes 1{tbl} Take 1 Un rita 10 mg 9-17 tablet by ity of tablet 21:46: mouth in [place] 23 the Medical morning. Branch albuterol Yes 2{puff} Take 2 Uni vers sulfate 9-17 Puffs by ity of (PROAIR 21:46: mouth as [place] RESPICLICK) 23 needed for Me dical 90 Cough. Branch mcg/actuati Cough, on AePB wheezing aspirin Yes 81mg Take 81 mg Univ ers (ASPIR-LOW 9-17 by mouth 2 ity of ORAL) 21:46: (two) [place] 23 times Medical daily. Branch insulin Yes 15U inject 15 Unive rs glargine,hu 9-17 Units ity of m.rec.anlog 21:46: under the [place] (LANTUS 23 skin. Medical U-100 Branch INSULIN SC) losartan Yes 1{tbl} Take 1 Un rita mg tablet 9-17 tablet by ity o f 21:46: mouth in [place] 23 the Medical morning. Branch montelukast Yes 1{tbl} Take 1 Un rita 10 mg 9-17 tablet by ity of tablet 21:46: mouth in [place] 23 the Medical morning. Branch albuterol Yes 2{puff} Take 2 Uni vers sulfate 9-17 Puffs by ity of (PROAIR 21:46: mouth as [place] RESPICLICK) 23 needed for Me dical 90 Cough. Branch mcg/actuati Cough, on AePB wheezing aspirin Yes 81mg Take 81 mg Univ ers (ASPIR-LOW 9-17 by mouth 2 ity of ORAL) 21:46: (two) [place] 23 times Medical daily. Branch insulin Yes 15U inject 15 Unive rs glargine,hu 9-17 Units ity of m.rec.anlog 21:46: under the [place] (LANTUS 23 skin. Medical U-100 Branch INSULIN SC) losartan 25 Yes 1{tbl} Take 1 Un rita mg tablet 9-17 tablet by ity o f 21:46: mouth in [place] 23 the Medical morning. Branch montelukast Yes 1{tbl} Take 1 Un rita 10 mg 9-17 tablet by ity of tablet 21:46: mouth in [place] 23 the Medical morning. Branch albuterol Yes 2{puff} Take 2 Uni vers sulfate 9-17 Puffs by ity of (PROAIR 21:46: mouth as [place] RESPICLICK) 23 needed for Me dical 90 Cough. Branch mcg/actuati Cough, on AePB wheezing metoprolol 2021- No 1{tbl} Take 1 Un rita tartrate 50 07-27 tablet by it y of mg tablet 15:21: 00:00 mouth in [place] 48 :00 the Medical morning Branch and 1 tablet in the evening. Take with meals. metoprolol 2021- No 1{tbl} Take 1 Un rita tartrate 50 07-27 tablet by it y of mg tablet 15:21: 00:00 mouth in [place] 48 :00 the Medical morning Branch and 1 tablet in the evening. Take with meals. magnesium 2021- No 2g 2 g, IV Univ ers sulfate in 07-27 Piggyback, it y of water 2 13:00: 14:46 Administer [place] gram/50 mL 00 :00 over 60 Medica l (4 %) Minutes, Branch infusion 2 ONCE, 1 g dose, On 07/27/22 at 0800, Routine metoprolol 2021- No 5mg 5 mg, Slow Univers (LOPRESSOR) 07-27 IV Push, ity of injection 5 01:30: 01:02 ONCE, 1 [place] mg 00 :00 dose, On Medical Fri Branch 07/26/22 at 2030, Routine atorvastati Yes [id number] 40mg Take 1 Univers n 40 mg 9-17 tablet by ity of tablet 00:00: mouth at [place] 00 bedtime. Medical Branch apixaban Yes 1358 5mg Take 1 Univers (ELIQUIS) 5 - tablet by ity of mg tablet 00:00: mouth [place] 00 the Medical morning Branch and 1 tablet in the evening. Indication s: atrial fibrillati on atorvastati Yes [id number] 40mg Take 1 Univers n 40 mg 9-17 tablet by ity of tablet 00:00: mouth at [place] 00 bedtime. Medical Branch apixaban Yes 1358 5mg Take 1 Univers (ELIQUIS) 5 9-17 tablet by ity of mg tablet 00:00: [place] 00 the Medical morning Branch and 1 tablet in the evening. Indication s: atrial fibrillati on atorvastati Yes [id number] 40mg Take 1 Univers n 40 mg 9-17 tablet by ity of tablet 00:00: mouth at [place] 00 bedtime. Medical Branch apixaban Yes 1358 5mg Take 1 Univers (ELIQUIS) 5 9-17 tablet by ity of mg tablet 00:00: mouth in [place] 00 the Medical morning Branch and 1 tablet in the evening. Indication s: atrial fibrillati on iopamidol 2021- No ONCE INTRA U nivers (ISOVUE 07-26 PROCEDURE, ity o f 370-500 mL) 21:15: 21:51 Starting [place] injection 00 :37 on Fri Medical 07/26/22 at Branch 1615, Until Fri07/26/22 at 1651, Routine, CV Intraproce dure nitroglycer 2021- No ONCE INTRA Univers in (TRIDIL) 07-26 PROCEDURE, i ty of 2 mg in 10 21:02: 21:51 Starting [place] mL D5W for 43 :37 on Fri Medical Cardiac 07/26/22 at [place] [facility] 1602, Until Fri07/26/22 at 1651, Routine, CV Intraproce dure heparin 2021- No ONCE INTRA Uni vers 1,000 07-26 PROCEDURE, ity of unit/mL 21:02: 21:51 Starting [place] injection 26 :37 on Fri Medical 07/26/22 at Branch 1602, Until Fri07/26/22 at 1651, Routine, CV Intraproce dure lidocaine 2021- No ONCE INTRA U nivers 1% (PF) 07-26 PROCEDURE, ity o f (XYLOCAINE) 20:54: 21:51 Starting [place] injection 27 :37 on Fri Medical 07/26/22 at Branch 1554, Until Fri07/26/22 at 1651, Routine, CV Intraproce dure midazolam 2021- No ONCE INTRA U nivers (VERSED) 07-26 PROCEDURE, ity of injection 20:33: 21:51 Starting [place] 19 :37 on Fri Medical 07/26/22 at Branch 1533, Until Fri07/26/22 at 1651, Routine, CV Intraproce dure FENTanyl PF 2021- No ONCE INTRA Univers (SUBLIMAZE 07-26 PROCEDURE, it y of (PF)) 20:33: 21:51 Starting [place] injection 00 :37 on Fri Medical 07/26/22 at Branch 1533, Until Fri07/26/22 at 1651, Routine, CV Intraproce dure aspirin Yes 325mg 325 mg, Univer s tablet 325 07-26 Oral, ity of mg 17:51: PRE-PROCED [place] 55 URE ONCE, Medical 1 dose, Branch Starting on Fri07/26/22 at 1251, Until Discontinu ed, Routine, Surgery/Pr ocedure, CV Preprocedu re aspirin 2021- No 325mg 325 mg, Unive rs tablet 325 07-26 Oral, ity of mg 17:51: 04:46 PRE-PROCED [place] 55 :24 URE ONCE, Medical 1 dose, Branch Starting on Fri07/26/22 at 1251, Until 07/27/22 at 2346, Routine, Surgery/Pr ocedure, CV Preprocedu re insulin Yes 15U 15 Units, Unive rs glargine 07-26 Subcutaneo ity o f (LANTUS 14:00: [place], DAILY, [place] U-100) 00 First dose Medical injection (after Branch 15 Units last modificati on) on Fri07/26/22 at 0900, Until Discontinu ed insulin 2021- No 15U 15 Units, Univ ers glargine 07-26 Subcutaneo ity of (LANTUS 14:00: 04:46 us, DAILY, [place] U-100) 00 :24 First dose Medical injection (after Branch 15 Units last modificati on) on Fri07/26/22 at 0900, Until Discontinu ed KCL 2021- No 20meq 20 mEq, Univers (KLOR-CON 07-26 Oral, ity of M20) tablet 13:30: 14:05 ONCE, 1 [place] 20 mEq 00 :00 dose, On Medical Fri [place] 07/26/22 at 0830, Routine Sliding Yes Subcutaneo Univ ers Scale - us, Q6H, ity of Insulin - 01:00: First dose [place] Lispro 00 (after Medical (HumaLOG) + last Branch Fsbg modificati Testing on) on [facility] 07/25/22 at 1999, Until Discontinu ed, Routine Sliding 2021- No Subcutaneo Uni vers Scale 07-26 us, Q6H, ity of Insulin - 01:00: 04:46 First dose [place] Lispro 00 :24 (after Medical (HumaLOG) + last Branch Fsbg modificati Testing on) on [facility] 07/25/22 at 2000, Until Discontinu ed, Routine magnesium 2021- No 2g 2 g, IV Univ ers sulfate in 07-26 Piggyback, it y of water 2 00:45: 03:11 Administer [place] gram/50 mL 00 :00 over 60 Medica l (4 %) Minutes, Branch infusion 2 ONCE, 1 g dose, On [facility] 07/25/22 at 1945, Routine metOLazone 2021- No 2.5mg 2.5 mg, Un rita (ZAROXOLYN) 07-25 Oral, ity of tablet 2.5 16:00: 15:24 DAILY, [place] mg 00 :46 First dose Medical on [facility] Branch 07/25/22 at 1100, Until Discontinu ed, Routine furosemide 2021- No 60mg 60 mg, IV U nivers (LASIX) 07-25 Push, TID, ity o f injection 14:00: 14:53 First dose [place] 60 mg 00 :03 (after Medical last Branch modificati on) on [facility] 07/25/22 at 0900, Until Discontinu ed, LORI insulin 2021- No 13U 13 Units, Univ ers glargine 07-25 Subcutaneo ity of (LANTUS 14:00: 21:17 us, DAILY, [place] U-100) 00 :43 First dose Medical injection (after Branch 13 Units last modificati on) on Fri07/25/22 at 0900, Until Discontinu ed insulin Yes 3U 3 Units, Univer s lispro 07-25 Subcutaneo ity of (human) 13:00: us, TID [place] (HumaLOG 00 MEALS, Medical U-100) First dose Branch injection 3 (after Units last modificati on) on Fri07/25/22 at 0800, Until Discontinu ed, Routine insulin 2021- No 3U 3 Units, Unive rs lispro 07-25 Subcutaneo ity of (human) 13:00: 04:46 us, TID [place] (HumaLOG 00 :24 MEALS, Medical U-100) First dose Branch injection 3 (after Units last modificati on) on Fri07/25/22 at 0800, Until Discontinu ed, Routine Sliding 2021- No Subcutaneo Uni vers Scale 07-25 us, TID ity of Insulin - 13:00: 17:39 MEALS+HS, [place] Lispro 00 :14 First dose Medical (HumaLOG) + on [place] Branch Fsbg 07/25/22 at Testing 0800, Until Discontinu ed, Routine furosemide 2021- No 60mg 60 mg, IV U nivers (LASIX) 07-25 Push, ity of injection 01:00: 13:56 Q12H, [place] 60 mg 00 :04 First dose Medical (after Branch last modificati on) on Fri07/24/22 at 2000, Until Discontinu ed, LORI insulin 2021- No 2U 2 Units, Unive rs lispro 07-24 Subcutaneo ity of (human) 17:00: 02:35 us, TID [place] (HumaLOG 00 :59 MEALS, Medical U-100) First dose Branch injection 2 on Fri Units 07/24/22 at 1200, Until Discontinu ed, Routine insulin No 10U 10 Units, Univ ers glargine 07-24 Subcutaneo ity of (LANTUS 15:20: 17:31 [place], ONCE, [place] U-100) 00 :00 1 dose, On Medical injection Wed Branch 10 Units 07/24/22 at 1030, Routine insulin 2021- No [facility]U 3 [facility] Subcutaneo ity of (LANTUS 15:00: 14:27 [place], ONCE, [place] U-100) 00 :00 1 dose, On Medical injection 3 Wed Branch Units 07/24/22 at 1000, Routine metoprolol Yes 50mg 50 mg, Unive rs succinate 07-24 Oral, ity of XL (TOPROL 14:15: DAILY, [place] XL) tablet 00 First dose Med ical 50 mg on Fri Branch 07/24/22 at 0915, Until Discontinu ed, Routine metoprolol 2021- No 50mg 50 mg, Univ ers succinate 07-24 Oral, ity of XL (TOPROL 14:15: 04:46 DAILY, [place] XL) tablet 00 :24 First dose Med ical 50 mg on Fri Branch 07/24/22 at 0915, Until Discontinu ed, Routine furosemide 2021- No 20mg 20 mg, Univ ers (LASIX) 07-24 Slow IV ity of injection 13:47: 14:16 Push, [place] 20 mg 00 :00 ONCE, 1 Medical dose, On Branch 07/24/22 at 0900, Routine albuterol Yes 2{puff} 2 Puff, Un rita (VENTOLIN) 07-24 Inhalation ity of inhaler 2 07:45: , Q6HPRN, [place] Puff 53 Starting Medical on Fri Branch 07/24/22 at 0245, Until Discontinu ed, Routine, Wheezing, Shortness of Breath albuterol 2021- No 2{puff} 2 Puff, U nivers (VENTOLIN) 07-24 Inhalation it y of inhaler 2 07:45: 04:46 , Q6HPRN, [place] Puff 53 :24 Starting Medical on Fri Branch 07/24/22 at 0245, Until 07/27/22 at 2346, Routine, Wheezing, Shortness of Breath magnesium No 4g 4 g, IV Univ ers sulfate in 07-24 Piggyback, it y of water 4 06:15: 08:14 ONCE, 1 [place] gram/50 mL 00 :00 dose, On Medic al (8 %) IV Fri Branch Piggyback 4 07/24/22 at g 0115, Routine furosemide 2021- No 40mg 40 mg, IV U nivers (LASIX) 07-24 Push, ity of injection 05:30: 13:35 Q12H, [place] 40 mg 00 :15 First dose Medical (after Branch last modificati on) on Fri07/24/22 at 0030, Until Discontinu ed, LORI heparin Yes 3000U FOR Univers (1,000 07-24 REBOLUSING ity of unit/mL, 10 05:29: , Starting [place] mL vial) 37 on Fri Medical for 07/24/22 at Branch Rebolusing 0029, Until Discontinu ed, Routine
Dosing based on aPPT testing parameters (refer to continuous heparin drip order).
heparin Yes 1000U/h 1,000 Univer s 25,000 9-14 Units/hr ity of Units/250 05:29: (10 [place] mL 37 mL/hr), IV Medical (Premixed Infusion, Branc h Bag) in TITRATE, 0.45 % NS Parameters in Admin. Instr., Starting on Fri07/24/22 at 0029
CA UTION - If LMWH given in ER, AVOID bolus and start next dose/drip 12 hrs after ER dosage.&nb sp; M ust program rate using programmab le infusion pump.&nbsp ; Annetta ck with the ordering provider first prior to any administra tion should the patient be on existing/a dditional anticoagul ant therapy. Rang e, Dosing and Testing: &nbs p;FOR [facility], [facility], AND [facility] ONLY - aPTT < 35: & nbsp;Bolus 5000 units, increase rate 300 units/hr&n bsp; - aPTT 35-44:&nbs p; Vijay joyce 3000 units, increase rate 200 units/hr&n bsp; - aPTT 45-54:&nbs p; In crease rate 100 units/hr&n bsp; - aPTT 55-85:&nbs p; NO CHANGE&nbs p; - aPTT 86-95:&nbs p; De crease rate 100 units/hr&n bsp; - aPTT 96-120:&nb sp; H old 30 minutes, decrease rate 150 units/hr&n bsp; - aPTT > 120:&n bsp; Hold 60 minutes, decrease rate 200 units/hr&n bsp; Check aPTT 6 hours after initiation , then Q6H after every change, aPTT Q12H once therapeuti c levels are reached.&n bsp; &nbs p; __ &n bsp;FOR [facility] ONLY - aPTT < 40: & nbsp;Bolus 5000 units, increase rate 300 units/hr&n bsp; - aPTT 40-49:&nbs p; Vijay joyce 3000 units, increase rate 200 units/hr&n bsp; - aPTT 50-59:&nbs p; In crease rate 100 units/hr&a mp;nbsp; - aPTT 60-85:&nbs p; NO CHANGE&nbs p; - aPTT 86-95:&nbs p; De crease rate 100 units/hr&n bsp; - aPTT 96-120:&nb sp; H old 30 minutes, decrease rate 150 units/hr&n bsp; - aPTT > 120: Hold 60 minutes, decrease rate 200 units/hr&n bsp; Check aPTT 6 hours after initiation , then Q6H after every change, aPTT Q12H once therapeuti c levels are reached.&n bsp; DO NOT ADJUST INITIAL BOLUS OR INITIAL INFUSION RATE.
heparin 2021- No 3000U FOR Univers (1,000 07-24 REBOLUSING ity of unit/mL, 10 05:29: 04:46 , Starting [place] mL vial) 37 :24 on Wed Medical for 07/24/22 at Branch Rebolusing 0029, Until 07/27/22 at 2346, Routine
Dosing based on aPPT testing parameters (refer to continuous heparin drip order).
heparin 2021- No 1000U/h 1,000 Unive rs 25,000 07-24 Units/hr ity of Units/250 05:29: 04:46 (10 [place] mL 37 :24 mL/hr), IV Medical (Premixed Infusion, Branc h Bag) in TITRATE, 0.45 % NS Parameters in Admin. Instr., Starting on Fri07/24/22 at 0029
CA UTION - If LMWH given in ER, AVOID bolus and start next dose/drip 12 hrs after ER dosage.&nb sp; M ust program rate using programmab le infusion pump.&nbsp ; Annetta ck with the ordering provider first prior to any administra tion should the patient be on existing/a dditional anticoagul ant therapy. Rang e, Dosing and Testing: &nbs p;FOR [facility], AND [facility] ONLY - aPTT < 35: & nbsp;Bolus 5000 units, increase rate 300 units/hr&n bsp; - aPTT 35-44:&nbs p; Vijay joyce 3000 units, increase rate 200 units/hr&n bsp; - aPTT 45-54:&nbs p; In crease rate 100 units/hr&n bsp; - aPTT 55-85:&nbs p; NO CHANGE&nbs p; - aPTT 86-95:&nbs p; De crease rate 100 units/hr&n bsp; - aPTT 96-120:&nb sp; H old 30 minutes, decrease rate 150 units/hr&n bsp; - aPTT > 120:&n bsp; Hold 60 minutes, decrease rate 200 units/hr&n bsp; Check aPTT 6 hours after initiation , then Q6H after every change, aPTT Q12H once therapeuti c levels are reached.&n bsp; &nbs p; __ &n bsp;FOR [facility] ONLY - aPTT < 40: & nbsp;Bolus 5000 units, increase rate 300 units/hr&n bsp; - aPTT 40-49:&nbs p; Vijay joyce 3000 units, increase rate 200 units/hr&n bsp; - aPTT 50-59:&nbs p; In crease rate 100 units/hr&a mp;nbsp; - aPTT 60-85:&nbs p; NO CHANGE&nbs p; - aPTT 86-95:&nbs p; De crease rate 100 units/hr&n bsp; - aPTT 96-120:&nb sp; H old 30 minutes, decrease rate 150 units/hr&n bsp; - aPTT > 120: Hold 60 minutes, decrease rate 200 units/hr&n bsp; Check aPTT 6 hours after initiation , then Q6H after every change, aPTT Q12H once therapeuti c levels are reached.&n bsp; DO NOT ADJUST INITIAL BOLUS OR INITIAL INFUSION RATE.
HYDROcodone 2021-0 Yes 1{tbl} 1 tablet, Univers -acetaminop 07-23 Oral, ity of hen (NORCO 15:31: Q6HPRN, [place] 5) 5-325 mg 53 Starting Medi jose tablet [address] [facility] tablet 07/23/22 at 1031, Until Discontinu ed, Routine, Pain (scale 4-6) HYDROcodone 2021-0 2021- No 1{tbl} 1 tablet, Univers -acetaminop 07-2318 Oral, ity of hen (NORCO 15:31: 04:46 Q6HPRN, [place] 5) 5-325 mg 53 :24 Starting Medi jose tablet 1 on [facility] tablet 07/23/22 at 1031, Until 07/27/22 at 2346, Routine, Pain (scale 4-6) spironolact 0 Yes 25mg 25 mg, Univ ers one 07-22 Oral, ity of (ALDACTONE) 14:00: DAILY, [place] tablet 25 00 First dose Medi jose mg on Fri Branch 07/22/22 at 0900, Until Discontinu ed, Routine aspirin 0 Yes 81mg 81 mg, Univers chewable 07-22 Oral, ity of tablet 81 14:00: DAILY, [place] mg 00 First dose Medical on Fri07/22/22 at 0900, Until Discontinu ed, Routine losartan Yes 25mg 25 mg, Univers (COZAAR) 07-22 Oral, ity of tablet 25 14:00: DAILY, [place] mg 00 First dose Medical on Fri Branch 07/22/22 at 0900, Until Discontinu ed, Routine montelukast Yes 10mg 10 mg, Univ ers (SINGULAIR) 07-22 Oral, ity of tablet 10 14:00: DAILY, [place] mg 00 First dose Medical on [facility] 07/22/22 at 0900, Until Discontinu ed, Routine spironolact No 25mg 25 mg, Uni vers one 07-22 Oral, ity of (ALDACTONE) 14:00: 04:46 DAILY, [place] tablet 25 00 :24 First dose Medi jose mg on [facility] 07/22/22 at 0900, Until Discontinu ed, Routine aspirin No 81mg 81 mg, Univers chewable 07-22 Oral, ity of tablet 81 14:00: 04:46 DAILY, [place] mg 00 :24 First dose Medical on [facility] 07/22/22 at 0900, Until Discontinu ed, Routine losartan No 25mg 25 mg, Univer s (COZAAR) 07-22 Oral, ity of tablet 25 14:00: 04:46 DAILY, [place] mg 00 :24 First dose Medical on [facility] 07/22/22 at 0900, Until Discontinu ed, Routine montelukast No 10mg 10 mg, Uni vers (SINGULAIR) 07-22 Oral, ity of tablet 10 14:00: 04:46 DAILY, [place] mg 00 :24 First dose Medical on [facility] 07/22/22 at 0900, Until Discontinu ed, Routine metoprolol No 50mg 50 mg, Univ ers tartrate 07-22 Oral, BID ity o f (LOPRESSOR) 13:00: 14:10 MEALS, [place] as tablet 50 00 :14 First dose Medi jose mg on [facility] 07/22/22 at 0800, Until Discontinu ed, Routine atorvastati Yes 40mg 40 mg, Univ ers n (LIPITOR) 07-22 Oral, QHS, it y of tablet 40 02:00: [place] dose [place] 00 on [facility] 07/21/22 at Branch 2100, Until Discontinu ed, Routine atorvastati 2021- No 40mg 40 mg, Uni vers n (LIPITOR) 07-22 Oral, QHS, i ty of tablet 40 02:00: 04:46 First dose [place] mg 00 :24 on [facility] 07/21/22 at Branch 2100, Until Discontinu ed, Routine morpHINE (2 2021- No 2mg 2 mg, Slow Univers mg/mL) 07-22 IV Push, ity of injection 2 01:29: 15:32 Q6HPRN, [place] mg 07 :09 Starting Medical on [facility] 07/21/22 at 2029, Until 07/23/22 at 1032, Routine, Chest pain furosemide 2021- No 20mg 20 mg, IV U nivers (LASIX) 07-22 Push, ity of injection 01:00: 05:27 Q12H, [place] 20 mg 00 :42 First dose Medical (after Branch last reorder) on [facility] 07/21/22 at 2000, Until Discontinu ed, LORI enoxaparin 2021- No 1mg/kg 100 mg Un rita (LOVENOX) 07-22 (rounded ity o f injection 01:00: 05:30 from 98.5 [place] 100 mg 00 :31 mg = 1 Medical mg/kg Branch ?98.5 kg), Subcutaneo us, Q12H, First dose (after last modificati on) on [facility] 07/21/22 at 2000, Until Discontinu ed, Routine sulfur 2021- No [id number] 5mL 5 mL, Unive rs hexafluorid 07-21 Intravenou i ty of e microsphr 15:45: 15:45 s, ONCE, 1 [place] (LUMASON) 00 :00 dose, On Medica l injection 5 [facility] mL 07/21/22 at 1045, Routine
tennis desk team member approving Restricted medication : ANA LUISA GRIMM insulin 2021- No 10U 10 Units, Univ ers glargine 07-21 Subcutaneo ity of (LANTUS 14:00: 14:09 us, DAILY, [place] as U-100) 00 :20 First dose Medical injection on [facility] 10 Units 07/21/22 at 0900, Until Discontinu ed Sliding 2021- No Subcutaneo Uni vers Scale 07-2115 us, TID ity of Insulin - 13:00: 02:33 MEALS+HS, [place] Lispro 00 :10 First dose Medical (HumaLOG) + (after Branch Fsbg last Testing modificati on) on 07/21/22 at 0800, Until Discontinu ed, Routine Sliding No Subcutaneo Uni vers Scale 07-21 us, Q4H, ity of Insulin - 00:00: 06:27 First dose [place] Lispro 00 :26 on Sat Medical (HumaLOG) + 07/20/22 at Br anch Fsbg 1900, Testing Until Discontinu ed, Routine glucagon Yes 1mg 1 mg, Univers (GLUCAGEN 07-20 Intramuscu ity of DIAGNOSTIC 23:48: lar, PRN, [place] KIT) 16 Starting Medical injection 1 on Sat Branch mg 07/20/22 at 1848, Until Discontinu ed, LORI, Blood Glucose < or = 70 mg/dL and patient is unable to swallow or has mental changes. dextrose 50 Yes 25mL 25 mL, Univ ers % in water 07-20 Slow IV ity of (D50W) 23:48: Push, PRN, [place] injection 16 Starting Medica l 25 mL on Sat Branch 07/20/22 at 1848, Until Discontinu ed, LORI, Blood Glucose < or = 70 mg/dL and patient is unable to swallow or has mental status changes. glucagon 2021- No 1mg 1 mg, Univers (GLUCAGEN 07-20 Intramuscu ity of DIAGNOSTIC 23:48: 04:46 lar, PRN, [place] KIT) 16 :24 Starting Medical injection 1 on Sat Branch mg 07/20/22 at 1848, Until 07/27/22 at 2346, LORI, Blood Glucose < or = 70 mg/dL and patient is unable to swallow or has mental changes. dextrose 50 2021-0 2021- No 25mL 25 mL, Uni vers % in water 07-20 Slow IV ity o f (D50W) 23:48: 04:46 Push, PRN, [place] injection 16 :24 Starting Medica l 25 mL on Sat Branch 07/20/22 at 1848, Until 07/27/22 at 2346, LORI, Blood Glucose < or = 70 mg/dL and patient is unable to swallow or has mental status changes. metoprolol No 25mg 25 mg, [facility] ers tartrate 07-20 Oral, Q6H, ity of (LOPRESSOR) 23:00: 23:26 First dose [place] tablet 25 00 :53 (after Medical mg last Branch reorder) on 07/20/22 at 1800, Until Discontinu ed, Routine digoxin No 500ug 500 mcg, Univ ers (LANOXIN) 07-20 Intravenou ity of injection 22:30: 22:22 s, ONCE, 1 [place] 500 mcg 00 :00 dose, On Medical Sat Branch 07/20/22 at 1730, Routine enoxaparin No 40mg 40 mg, [facility] ers (LOVENOX) 07-20 Subcutaneo ity of injection 22:00: 23:46 us, DAILY, [place] 40 mg 00 :32 First dose Medical on Sat Branch 07/20/22 at 1700, Until Discontinu ed, Routine metoprolol No 5mg 5 mg, Slow Univers (LOPRESSOR) 07-20 IV Push, ity of injection 5 21:00: 21:08 ONCE, 1 [place] mg 00 :00 dose, On Medical [facility] Branch 07/20/22 at 1600, LORI FENTanyl PF No 50ug 50 mcg, Un rita (SUBLIMAZE 07-20 Slow IV ity o f (PF)) 19:54: 19:57 Push, [place] injection 00 :00 ONCE, 1 Medical 50 mcg dose, On Branch 07/20/22 at 1500, Routine acetaminoph Yes 650mg 650 mg, Un rita en 07-20 Oral, ity of (TYLENOL) 19:34: Q6HPRN, [place] tablet 650 57 Starting Medic al mg on [facility] Branch 07/20/22 at 1434, Until Discontinu ed, Routine, Pain (scale 1-3) acetaminoph 2022-0 2022- No 650mg 650 mg, U nivers en 07-20 Oral, ity of (TYLENOL) 19:34: 04:46 Q6HPRN, [place] tablet 650 57 :24 Starting Medic al mg on Sat Branch 07/20/22 at 1434, Until 07/27/22 at 2346, Routine, Pain (scale 1-3) metoprolol 2021- No 25mg 25 mg, Univ ers tartrate 07-20 Oral, ity of (LOPRESSOR) 18:00: 17:36 ONCE, 1 [place] tablet 25 00 :00 dose, On Medica l mg Sat Branch 07/20/22 at 1300, LORI furosemide 2021- No 20mg 20 mg, IV U nivers (LASIX) 07-20 Push, ity of injection 17:58: 18:02 ONCE, 1 [place] 20 mg 00 :00 dose, On Medical Sat Branch 07/20/22 at 1300, LORI NaCl 0.9% 2021- No 500mL at 999 Univ ers (NS) bolus 07-20 mL/hr, 500 it y of infusion 17:00: 17:15 mL, IV [place] 500 mL 00 :00 Piggyback, Medical ONCE, 1 Branch dose, On 07/20/22 at 1200, STAT metoprolol 2021- No 5mg 5 mg, Slow Univers (LOPRESSOR) 07-20 IV Push, ity of injection 5 16:15: 16:16 ONCE, 1 [place] mg 00 :00 dose, On Medical Sat Branch 07/20/22 at 1115, LORI Trelegy Trelegy 2020- No Meghana 1 puff Com mon Ellipta Ellipta 12-22 06-11 [place] [facility] 00:00: 00:00 - [facility] 00 :00 [facility] HydrOXYzine HydrOXYzine Yes Meghana 1 tablet Common HCl HCl 05-11 [place] as needed [facility] 00:00: - [facility] 00 [facility] Ozempic Ozempic 2020- No Meghana 0.5 mg Com mon 05-11 08-24 [place] [facility] 00:00: 00:00 - [facility]I 00 :00 [facility] Rae Mcbride 0 Yes Meghana as Common 1-02 [place] directed Spirit 00:00: - [facility] 00 [facility] ProAir ProAir Yes Meghana 2 puffs as Comm on RespiClick RespiClick [place] needed [facility] [place] 3 [place] 3 Yes Meghana 1 capsule Com mon [place] [facility] Montelukast Montelukast Yes Meghana 1 tablet Common Sodium Sodium [place] in the Spirit evening [facility] Lipitor Lipitor Yes Meghana 1 tablet Comm on [place] [facility] Losartan Losartan Yes Meghana 1 tablet Co mmon Potassium Potassium [place] Spir it [facility] Metoprolol Metoprolol Yes Meghana 1 tablet Common Tartrate Tartrate [place] with food S pirit [facility] Metformin Metformin Yes Meghana 1 tablet Common HCl HCl [place] with a [facility] meal [facility] Immunizations Ordered Immunization Filled Immunization Date Status Commen ts Source Name Name FLUZONE HIGH DOSE FLUZONE HIGH DOSE 2019-09-14 Completed [facility] OVER 65 OVER 65 00:00:00 [facility] Vital Signs Vital Name Observation Time Observation Value Comments Source Systolic blood 2022-07-28 01:43:00 99 mm[facility]Hg[facility] 2022-07-28 01:43:00 58 mm[Hg] [facility] Heart rate 2022-07-28 01:40:00 97 /min [facility] Body temperature 2022-07-28 01:40:00 36.56 Melvi [facility] Respiratory rate 2022-07-28 01:40:00 18 /min [facility] Oxygen saturation in 2022-07-28 01:40:00 90 /min [facility] Arterial blood by [facility] Pulse oximetry Branch Body height 2022-07-26 17:49:00 172.7 cm [facility] Body weight 2022-07-26 17:49:00 96.163 kg [facility] BMI 2022-07-26 17:49:00 32.23 kg/m2 [facility] Systolic blood 2022-07-26 23:31:00 102 mm[Hg] Univer sity of pressure [facility] Diastolic blood 2022-07-26 23:31:00 59 mm[Hg] Unive rsity of [facility] Heart rate 2022-07-26 23:31:00 85 /min [facility] Body temperature 2022-07-26 23:31:00 36.56 Melvi [facility] Respiratory rate 2022-07-26 23:24:00 19 /min [facility] Oxygen saturation in 2022-07-26 23:24:00 93 /min [facility] Arterial blood by [facility] Pulse oximetry [place] Body height 2022-07-26 17:49:00 172.7 cm [facility] Body weight 2022-07-26 17:49:00 96.163 kg [facility] BMI 2022-07-26 17:49:00 32.23 kg/m2 [facility] Procedures Procedure Date / Time Performing Clinician Source Performed POCT GLUCOSE (AUTOMATED) 2022-07-27 16:45:00 Berna Alcantar [facility] POCT GLUCOSE (AUTOMATED) 2022-07-27 16:45:00 Berna Alcantar [facility] MAGNESIUM 2022-07-27 10:46:00 Dominique [facility] BASIC METABOLIC PANEL (NA, 2022-07-27 10:46:00 Flora Fox [facility] K, CL, CO2, GLUCOSE, BUN, Medica l Branch CREATININE, CA) N-TERMINAL PRO-BNP 2022-07-27 10:46:00 Dominique [facility] MAGNESIUM 2022-07-27 10:46:00 Dominique [facility] BASIC METABOLIC PANEL (NA, 2022-07-27 10:46:00 Flora Fox [facility] K, CL, CO2, GLUCOSE, BUN, Medica l Branch CREATININE, CA) N-TERMINAL PRO-BNP 2022-07-27 10:46:00 Dominique [facility] POCT GLUCOSE (AUTOMATED) 2022-07-27 10:38:00 Berna Alcantar [facility] POCT GLUCOSE (AUTOMATED) 2022-07-27 10:38:00 Keo Alcantarm [facility] POCT GLUCOSE (AUTOMATED) 2022-07-27 04:51:00 Keo Alcantarm [facility] POCT GLUCOSE (AUTOMATED) 2022-07-27 04:51:00 Keo Alcantarm [facility] POCT GLUCOSE (AUTOMATED) 2022-07-27 01:10:00 Berna Alcantar [facility] POCT GLUCOSE (AUTOMATED) 2022-07-27 01:10:00 Berna Alcantar [facility] POCT GLUCOSE (AUTOMATED) 2022-07-26 23:37:00 Berna Alcantar [facility] POCT GLUCOSE (AUTOMATED) 2022-07-26 23:37:00 Berna Alcantar [facility] ACTIVATED PARTIAL THRMPLAS 2022-07-26 23:10:00 Evelio Soni [facility] ACTIVATED PARTIAL THRMPLAS 2022-07-26 23:10:00 Evelio Soni [facility] of [facility] CARDIAC CATHETERIZATION 2022-07-26 21:16:04 [facility] CARDIAC CATHETERIZATION 2022-07-26 21:16:04 [facility] CARDIAC CATHETERIZATION 2022-07-26 21:16:04 [facility] CARDIAC CATHETERIZATION 2022-07-26 21:16:04 [facility] CARDIAC CATHETERIZATION 2022-07-26 21:16:04 [facility] CARDIAC CATHETERIZATION 2022-07-26 21:16:04 Katharine [facility] ersity [facility] CARDIAC CATHETERIZATION 2022-07-26 21:16:04 Katharine [facility] ersity [facility] CARDIAC CATHETERIZATION 2022-07-26 21:16:04 Katharine [facility] CATH PROCEDURE LOG 2022-07-26 20:55:04 [facility] CATH PROCEDURE LOG 2022-07-26 20:55:04 [facility] POCT GLUCOSE (AUTOMATED) 2022-07-26 16:20:00 Berna Alcantar [facility] POCT GLUCOSE (AUTOMATED) 2022-07-26 16:20:00 Berna Alcantar [facility] POCT GLUCOSE (AUTOMATED) 2022-07-26 12:30:00 Berna Alcantar [facility] POCT GLUCOSE (AUTOMATED) 2022-07-26 12:30:00 Berna Alcantar [facility] POCT GLUCOSE (AUTOMATED) 2022-07-26 11:08:00 Berna Alcantar [facility] POCT GLUCOSE (AUTOMATED) 2022-07-26 11:08:00 Berna Alcantar [facility] POCT GLUCOSE (AUTOMATED) 2022-07-26 08:52:00 Berna Alcantar [facility] POCT GLUCOSE (AUTOMATED) 2022-07-26 08:52:00 Berna Alcantar [facility] MAGNESIUM 2022-07-26 05:35:00 [facility] BASIC METABOLIC PANEL (NA, 2022-07-26 05:35:00 [facility], CL, CO2, GLUCOSE, BUN, Medica l Branch CREATININE, CA) ACTIVATED PARTIAL THRMPLAS 2022-07-26 05:35:[address] [facility] EXTRA TUBE LAV 2022-07-26 05:35:00 Katharine [facility] MAGNESIUM 2022-07-26 05:35:00 Tobias [facility] BASIC METABOLIC PANEL (NA, 2022-07-26 05:35:00 Tobias [facility] K, CL, CO2, GLUCOSE, BUN, Medica l Branch CREATININE, CA) ACTIVATED PARTIAL THRMPLAS 2022-07-26 05:35:[address] [facility] EXTRA TUBE LAV 2022-07-26 05:35:00 Katharine [facility] POCT GLUCOSE (AUTOMATED) 2022-07-26 05:20:00 Berna [facility]ar [facility] PO[facility]UCOSE (AUTOMATED) 2022-07-26 05:20:00 Berna Alcantar [facility] POCT GLUCOSE (AUTOMATED) 2022-07-26 01:45:00 [facility] POCT GLUCOSE (AUTOMATED) 2022-07-26 01:45:00 Berna Alcantar [facility] MAGNESIUM 2022-07-25 22:15:00 Tobias [facility] BASIC METABOLIC PANEL (NA, 2022-07-25 22:15:00 Tobias [facility] K, CL, CO2, GLUCOSE, BUN, Medica l Branch CREATININE, CA) ACTIVATED PARTIAL THRMPLAS 2022-07-25 22:15:[address] [facility] MAGNESIUM 2022-07-25 22:15:00 Tobias [facility] BASIC METABOLIC PANEL (NA, 2022-07-25 22:15:00 [facility], CO2, GLUCOSE, BUN, Medica l Branch CREATININE, CA) ACTIVATED PARTIAL THRMPLAS 2022-07-25 22:15:00 Loghin, [facility] PO[facility]UCOSE (AUTOMATED) 2022-07-25 21:22:00 Katharine Keoarmaan Russo [facility] POCT GLUCOSE (AUTOMATED) 2022-07-25 21:22:00 AvinashjimDavidarmaan [facility] POCT GLUCOSE (AUTOMATED) 2022-07-25 20:46:00 Keo Alcantararmaan [facility] POCT GLUCOSE (AUTOMATED) 2022-07-25 20:46:00 Katharine Keoarmaan [facility] POCT GLUCOSE (AUTOMATED) 2022-07-25 17:09:00 Berna Alcantar Rafaela [facility] POCT GLUCOSE (AUTOMATED) 2022-07-25 17:09:00 Berna Alcantar Rafaela versity [facility] HB ECG ROUTINE & RHYTHM 2022-07-25 14:53:13 Berna Collado [facility] ACTIVATED PARTIAL THRMPLAS 2022-07-25 14:53:00 [facility]velio [facility] ACTIVATED PARTIAL THRMPLAS 2022-07-25 14:53:00 Evelio Soni [facility] POCT GLUCOSE (AUTOMATED) 2022-07-25 13:12:00 Berna Alcantar Rafaela versity [facility] POCT GLUCOSE (AUTOMATED) 2022-07-25 13:12:00 Berna Alcantar Rafaela versity [facility] MAGNESIUM 2022-07-25 11:36:00 Tobias [facility] BASIC METABOLIC PANEL (NA, 2022-07-25 11:36:00 Tobias [facility] K, CL, CO2, GLUCOSE, BUN, Medica l Branch CREATININE, CA) CBC WITH DIFF 2022-07-25 11:36:00 Tobias [facility] MAGNESIUM 2022-07-25 11:36:00 Tobias [facility] BASIC METABOLIC PANEL (NA, 2022-07-25 11:36:00 Tobias [facility] K, CL, CO2, GLUCOSE, BUN, Medica l Branch CREATININE, CA) CBC WITH DIFF 2022-07-25 11:36:00 Tobias [facility] ACTIVATED PARTIAL THRMPLAS 2022-07-25 05:15:[address] [facility] ACTIVATED PARTIAL THRMPLAS 2022-07-25 05:15:[address] [facility] POCT GLUCOSE (AUTOMATED) 2022-07-25 01:58:00 Berna Alcantar Uni versity [facility] POCT GLUCOSE (AUTOMATED) 2022-07-25 01:58:00 Berna Alcantar [facility] MAGNESIUM 2022-07-24 22:34:00 Tobias [facility] BASIC METABOLIC PANEL (NA, 2022-07-24 22:34:00 Tobias [facility] K, CL, CO2, GLUCOSE, BUN, Medica l Branch CREATININE, CA) ACTIVATED PARTIAL THRMPLAS 2022-07-24 22:34:[address] [facility] MAGNESIUM 2022-07-24 22:34:00 Tobias [facility] BASIC METABOLIC PANEL (NA, 2022-07-24 22:34:00 Tobias [facility] K, CL, CO2, GLUCOSE, BUN, Medica l Branch CREATININE, CA) ACTIVATED PARTIAL THRMPLAS 2022-07-24 22:34:[address] [facility] POCT GLUCOSE (AUTOMATED) 2022-07-24 20:43:00 Berna Alcantar Uni versity [facility] POCT GLUCOSE (AUTOMATED) 2022-07-24 20:43:00 Berna Alcantar Uni versity [facility] POCT GLUCOSE (AUTOMATED) 2022-07-24 17:11:00 Berna Alcantar Uni versity [facility] POCT GLUCOSE (AUTOMATED) 2022-07-24 17:11:00 AvinashbettyBerna rodriguez [facility] POCT GLUCOSE (AUTOMATED) 2022-07-24 14:11:00 AvinashbettyBerna rodriguez [facility] PO[facility] GLUCOSE (AUTOMATED) 2022-07-24 14:11:00 AvinashbettyBerna rodriguez [facility] ACTIVATED PARTIAL THRMPLAS 2022-07-24 11:37:00 Evelio Soni [facility] ACTIVATED PARTIAL THRMPLAS 2022-07-24 11:37:00 Evelio Soni [facility] MAGNESIUM 2022-07-24 05:51:00 Evelio Soni [facility] BASIC METABOLIC PANEL (NA, 2022-07-24 05:51:00 [facility], CO2, GLUCOSE, BUN, Medica l Branch CREATININE, CA) PROTHROMBIN TIME / INR 2022-07-24 05:51:00 Evelio Soni [facility] ACTIVATED PARTIAL THRMPLAS 2022-07-24 05:51:00 Evelio Soni [facility] MAGNESIUM 2022-07-24 05:51:00 Evelio Soni [facility] BASIC METABOLIC PANEL (NA, 2022-07-24 05:51:00 [facility], CL, CO2, GLUCOSE, BUN, Medica l Branch CREATININE, CA) PROTHROMBIN TIME / INR 2022-07-24 05:51:00 Evelio Soni [facility] ACTIVATED PARTIAL THRMPLAS 2022-07-24 05:51:00 Evelio Soni [facility] POCT GLUCOSE (AUTOMATED) 2022-07-24 01:53:00 Atul Stephens [facility] POCT GLUCOSE (AUTOMATED) 2022-07-24 01:53:00 Atul Stephens [facility] POCT GLUCOSE (AUTOMATED) 2022-07-23 21:31:00 Atul Stephens [facility] POCT GLUCOSE (AUTOMATED) 2022-07-23 21:31:00 Atul [facility] POCT GLUCOSE (AUTOMATED) 2022-07-23 17:08:00 Atul [facility] POCT GLUCOSE (AUTOMATED) 2022-07-23 17:08:00 Atul [facility] POCT GLUCOSE (AUTOMATED) 2022-07-23 12:46:00 Atul Stephens Rafaela [facility] POCT GLUCOSE (AUTOMATED) 2022-07-23 12:46:00 Atul Stephens [facility] MAGNESIUM 2022-07-23 09:15:00 George Vizcaino [facility] BASIC METABOLIC PANEL (NA, 2022-07-23 09:15:00 [facility], [facility], CO2, GLUCOSE, BUN, Medica l Branch CREATININE, CA) CBC WITH DIFF 2022-07-23 09:15:00 George Vizcaino [facility] N-TERMINAL PRO-BNP 2022-07-23 09:15:[address] [facility] MAGNESIUM 2022-07-23 09:15:00 [facility] BASIC METABOLIC PANEL (NA, 2022-07-23 09:15:00 [facility], CL, CO2, GLUCOSE, BUN, Medica l Branch CREATININE, CA) CBC WITH DIFF 2022-07-23 09:15:00 [facility] N-TERMINAL PRO-BNP 2022-07-23 09:15:[address] [facility] POCT GLUCOSE (AUTOMATED) 2022-07-23 02:12:[address] [facility] POCT GLUCOSE (AUTOMATED) 2022-07-23 02:12:00 Atul Stephens [facility] POCT GLUCOSE (AUTOMATED) 2022-07-22 21:12:00 Abdullah, Atul [facility] POCT GLUCOSE (AUTOMATED) 2022-07-22 21:12:00 Atul Stephens [facility] POCT GLUCOSE (AUTOMATED) 2022-07-22 16:30:00 Atul Stephens [facility] POCT GLUCOSE (AUTOMATED) 2022-07-22 16:30:00 Atul Stephens [facility] POCT GLUCOSE (AUTOMATED) 2022-07-22 12:51:00 Atul Stephens [facility] POCT GLUCOSE (AUTOMATED) 2022-07-22 12:51:00 Atul Stephens [facility] PHOSPHORUS 2022-07-22 08:19:00 Atul Stephens [facility] MAGNESIUM 2022-07-22 08:19:00 [facility] HEPATIC FUNCTION PANEL 2022-07-22 08:19:00 Atul Stephens [facility] ([id number]) (ALB,T.PRO,BILI Medical Branch T,BU/BC,ALT,AST,ALK PHOS) BASIC METABOLIC PANEL (NA, 2022-07-22 08:19:00 Atul Stephens [facility] K, CL, CO2, GLUCOSE, BUN, Medica l Branch CREATININE, CA) CBC WITH DIFF 2022-07-22 08:19:00 [facility] N-TERMINAL PRO-BNP 2022-07-22 08:19:00 Atul Stephens [facility] PHOSPHORUS 2022-07-22 08:19:00 Atul Stephens [facility] MAGNESIUM 2022-07-22 08:19:00 [facility] HEPATIC FUNCTION PANEL 2022-07-22 08:19:00 Atul Stephens [facility] ([id number]) (ALB,T.PRO,BILI Medical Branch T,BU/BC,ALT,AST,ALK PHOS) BASIC METABOLIC PANEL (NA, 2022-07-22 08:19:00 Atul Stephens [facility] K, CL, CO2, GLUCOSE, BUN, Medica l Branch CREATININE, CA) CBC WITH DIFF 2022-07-22 08:19:00 Atul Stephens [facility] N-TERMINAL PRO-BNP 2022-07-22 08:19:00 Atul Stephens y [facility] POCT GLUCOSE (AUTOMATED) 2022-07-22 01:44:[address] [facility] POCT GLUCOSE (AUTOMATED) 2022-07-22 01:44:[address]ul Stephens [address] of [facility] POCT GLUCOSE (AUTOMATED) 2022-07-21 21:52:[address] Stephens [address] of [facility] POCT GLUCOSE (AUTOMATED) 2022-07-21 21:52:00 [facility] POCT GLUCOSE (AUTOMATED) 2022-07-21 16:43:00 Atul Stephens [facility] POCT GLUCOSE (AUTOMATED) 2022-07-21 16:43:00 Atul Stephens [facility] TRANSTHORACIC ECHO (TTE) 2022-07-21 15:28:00 Atul Stephens versity of [facility] W/ CONTRAST Medical [facility] TRANSTHORACIC ECHO (TTE) 2022-07-21 15:28:00 Atul Stephens [facility] [place] COMPLETE W/ CONTRAST [facility] POCT GLUCOSE (AUTOMATED) 2022-07-21 15:00:00 Atul [facility] POCT GLUCOSE (AUTOMATED) 2022-07-21 15:00:00 Atul [facility] POCT GLUCOSE (AUTOMATED) 2022-07-21 13:04:00 Atul Stephens versalberto of [facility] POCT GLUCOSE (AUTOMATED) 2022-07-21 13:04:00 [address] [facility] MAGNESIUM 2022-07-21 09:41:00 Atul Stephens [facility] TROPONIN I 2022-07-21 09:41:00 Atul Stephens [facility] BASIC METABOLIC PANEL (NA, 2022-07-21 09:41:00 Atul Stephens [facility] K, CL, CO2, GLUCOSE, BUN, Medica l Branch CREATININE, CA) LIPID PANEL (38405)(TOTAL 2022-07-21 09:41:00 Ana Luisa Gr[facility] CHOLESTEROL, Medical [place] TRIGLYCERIDES, HDL) CBC WITH DIFF 2022-07-21 09:41:00 Atul Stephens [facility] N-TERMINAL PRO-BNP 2022-07-21 09:41:00 Atul Stephens [facility] MAGNESIUM 2022-07-21 09:41:00 [facility]-07-21 09:41:00 [facility] BASIC METABOLIC PANEL (NA, 2022-07-21 09:41:00 Atul Stephens [facility] K, CL, CO2, GLUCOSE, BUN, Medica l Branch CREATININE, CA) LIPID PANEL (11309)(TOTAL 2022-07-21 09:41:00 Ana Luisa [facility] CHOLESTEROL, Medical [place] TRIGLYCERIDES, HDL) CBC WITH DIFF 2022-07-21 09:41:00 Atul Stephens [facility] N-TERMINAL PRO-BNP 2022-07-21 09:41:00 Atul Stephens [facility] POCT GLUCOSE (AUTOMATED) 2022-07-21 04:09:00 Atul Stephens [facility] POCT GLUCOSE (AUTOMATED) 2022-07-21 04:09:[address] [facility] BLOOD CULTURE SCREEN 2022-07-21 01:45:[address] [facility] BLOOD CULTURE WORKUP 2022-07-21 01:45:[address] [facility] GRAM POSITIVE BLOOD 2022-07-21 01:45:00 [facility] DNA [facility] PROBE-AEROBIC BLOOD CULTURE SCREEN 2022-07-21 01:45:[address] [facility] BLOOD CULTURE WORKUP 2022-07-21 01:45:[address] [facility] GRAM POSITIVE BLOOD 2022-07-21 01:45:00 [facility] PROBE-AEROBIC POCT GLUCOSE (AUTOMATED) 2022-07-21 01:26:00 Atul Stephens [facility] POCT GLUCOSE (AUTOMATED) 2022-07-21 01:26:00 Atul Stephens [facility] BLOOD CULTURE SCREEN 2022-07-20 23:43:[address] [facility] BLOOD CULTURE SCREEN 2022-07-20 23:43:[address] [facility] POCT GLUCOSE (AUTOMATED) 2022-07-20 22:24:00 Atul Stephens [facility] POCT GLUCOSE (AUTOMATED) 2022-07-20 22:24:00 Atul Stephens [facility] URINALYSIS 2022-07-20 17:41:00 [facility] URINALYSIS 2022-07-20 17:41:00 [facility] XR CHEST 1 VW 2022-07-20 16:16:00 [facility] XR CHEST 1 VW 2022-07-20 16:16:00 [facility]ene [facility] TROPONIN I 2022-07-20 16:10:00 [facility]ene [facility] COMP. METABOLIC PANEL 2022-07-20 16:10:00 Charlene Butt [facility] ([id number]) [facility] CBC WITH DIFF 2022-07-20 16:10:00 Charlene But[facility] GLYCOSYLATED HEMOGLOBIN 2022-07-20 16:10:00 Atul Stephens [facility] (A1C) [facility] PROTHROMBIN TIME / INR 2022-07-20 16:10:00 Charlene Butt [facility] ACTIVATED PARTIAL THRMPLAS 2022-07-20 16:10:00 Faulconer, [facility] N-TERMINAL PRO-BNP 2022-07-20 16:10:00 Charlene Butt [facility] COVID-19 (ID NOW RAPID 2022-07-20 16:10:00 Charlene Butt [facility] TESTING) Medical Branch LAB ONLY COVID 2022-07-20 16:10:00 Charlene Butt [facility] TROPONIN I 2022-07-20 16:10:00 Charlene But[facility] COMP. METABOLIC PANEL 2022-07-20 16:10:00 Charlene Butt [facility] ([id number]) Medical Branch CBC WITH DIFF 2022-07-20 16:10:00 Charlene Butt [facility] GLYCOSYLATED HEMOGLOBIN 2022-07-20 16:10:00 Atul Stephens [facility] (A1C) Medical Branch PROTHROMBIN TIME / INR 2022-07-20 16:10:00 Charlene Butt [facility] ACTIVATED PARTIAL THRMPLAS 2022-07-20 16:10:00 Saniya Butt [facility] N-TERMINAL PRO-BNP 2022-07-20 16:10:00 Charlene Butt [facility] COVID-19 (ID NOW RAPID 2022-07-20 16:10:00 Charlene Butt [facility] TESTING) Medical Branch LAB ONLY COVID 2022-07-20 16:10:00 Charlene Butt [facility] INTERPRETATION [facility] HB ECG ROUTINE & RHYTHM 2022-07-20 16:05:41 Charlene Butt [facility] HB ECG ROUTINE & RHYTHM 2022-07-20 16:05:41 Charlene Butt [facility] NOTICE OF PRIVACY 2022-07-20 15:52:39 Doctor Unassigned, [facility] PRACTICES [facility] [place] NOTICE OF PRIVACY 2022-07-20 15:52:39 Doctor Unassigned, [facility] HOSPITAL ADMISSION 2022-07-20 05:01:00 Doctor Unassigned [facility] HOSPITAL ADMISSION 2022-07-20 05:01:00 Doctor Unassigned, [facility] Name [facility] Encounters Start End Encounter Admission Attending Care Care Encounter Source Date/Time Date/Time Type Type Clinicians Facility Department ID 2021-12-05 Outpatient MILAGROS Ayala [facility] [id number] Common 11:06:38 Meghana [id number] [facility] 2022-07-29 2022-07-29 Transition ARIANE FosterKhadar [id number] Univers 00:00:00 00:00:00 of Care [place] [id number] it [facility] [id number] [id number] [facility] 403 Branch 2022-07-20 2022-07-27 Hospital Charlene Butt 1.2.84 [id number] Univers 11:00:00 21:45:00 [id number] .686 [place] [id number] [facility] 089 Branch 2022-07-20 2022-07-27 Inpatient X [facility] [id number] Univers 11:00:00 21:45:00 [facility] 2022-07-26 2022-07-26 Surgery JAMAL Cannon [id number] Univers 18:03:00 21:03:00 [place] GORDON [id number] it y [facility] 4.2.7.2.686 Jonathan as [id number] [facility] 840 Branch 2020-04-04 2020-04-04 [facility] [id number] Common 13:00:00 13:00:[address] [facility] [address] [facility] 2020-03-22 2020-03-22 [facility] [id number] Common 15:20:00 15:20:[address] [facility] [address] [facility] 2019-12-22 2019-12-22 [facility] [id number] Common 10:40:00 10:40:[address] [facility] 2019-12-15 2019-12-15 [facility] [id number] Common 14:00:00 14:00:00 t [facility] [address] [facility] 2019-09-14 2019-09-14 [facility] [id number] Common 13:20:00 13:20:00 t [facility] [address] [facility] 2019-05-11 2019-05-11 [facility] [id number] Common 13:00:00 13:00:[address] [facility] 2018-11-11 2018-11-11 [facility] [id number] Common 13:00:00 13:00:[address] [facility] 2018-10-19 2018-10-19 [facility] [id number] Common 08:30:00 08:30:00 t [facility] [address] [facility] 2018-04-22 2018-04-22 [facility] [id number] Common 14:00:00 14:00:00 t [facility] [address] [facility] Results Test Description Test Time Test Comments Results Result Comments Source POCT GLUCOSE (AUTOMATED) 2022-07-27 17:05:15 Test Item Value Reference Range Interpretation Comme nts POCT GLU (test code = 4407478030) 264 mg/dL 70-110 H Lab Interpretation (test code = 81764-0) [facility] 17:05:15 Test Item Value Reference Range Interpretation Comments POCT GLU (test code = 7137442772) 264 mg/dL 70-110 H Lab Interpretation (test code = Abnormal 09044-8) [facility] [id number] 15:17:32 Test Item Value Reference Range Interpretation Comments NT-proBNP (test code 1090 pg/mL See_Comment H [Autom ated = 3573447019) message] The system which generated this result transmitted reference range : <=125. The reference range was not used to interpret this result as normal/abnormal . ROSLYN (test code = ROSLYN) Biotin has been reported to cause a negative bias, interpret results relative to patient's use of biotin. Lab Interpretation Abnormal (test code = 86822-9) [facility] [id number] 15:17:32 Test Item Value Reference Range Interpretation Comments NT-proBNP (test code 1090 pg/mL See_Comment H [Autom ated = 7028327772) message] The system which generated this result transmitted reference range : <=125. The reference range was not used to interpret this result as normal/abnormal . ROSLYN (test code = ROSLYN) Biotin has been reported to cause a negative bias, interpret results relative to patient's use of biotin. Lab Interpretation Abnormal (test code = 66558-6) [facility] 11:45:45 Test Item Value Reference Range Interpretation Comments MAGNESIUM (test code = 0260321602) 1.9 mg/dL 1.7-2.4 Lab Interpretation (test code = Normal 32651-4) [facility] (NA, K, CL, CO2, GLUCOSE, BUN, CREATININE, CA)2022-07-27 11:45:45 Test Item Value Reference Range Interpretation Comments NA (test code = 130 mmol/L 135-145 L 4901873317) K (test code = 4.1 mmol/L 3.5-5 2102763798) CL (test code = 89 mmol/L 98-108 L 5569154508) CO2 TOTAL (test code = 37 mmol/L 23-31 H 5501735437) AGAP (test code = 2-16 3270966605) BUN (test code = 32 mg/dL 7-23 H 9475547082) GLUCOSE (test code = 180 mg/dL 70-110 H 8205722904) CREATININE (test code = 0.81 mg/dL 0.6-1.25 4985210036) CALCIUM (test code = 8.5 mg/dL 8.6-10.6 L 5412455838) eGFR (test code = mL/min/1.73m2 1021104918) ROSLYN (test code = ROSLYN) Association of Glomerular Filtration Rate (GFR) and Staging of Kidney Disease* + --+ --+ ------+| GFR (mL/min/1.73 m2) ?| With Kidney Damage ?| ?Without Kidney Damage+ --------+ --------+ +| ?>90 ?| ?Stage one ?| ? Normal ?+ ---+ ---+ -------+| ?60-89 ?| ?Stage two ?| ? Decreased GFR ? + --+ --+ ------+| ?30-59 ?| ?Stage three ?| ? Stage three ? + --+ --+ ------+| ?15-29 ?| ?Stage four ? | ? Stage four ?+ ---+ ---+ -------+| ?<15 (or dialysis) ? ?| ?Stage five ? | ? Stage five ?+ ---+ ---+ -------+ *Each stage assumes the associated GFR level has been in effect for at least three months. ?Stages 1 to 5, with or without kidney disease, indicate chronic kidney disease. Notes: Determination of stages one and two (with eGFR >59mL/min/1.73 m2) requires estimation of kidney damage for at least three months as defined by structural or functional abnormalities of the kidney, manifested by either:Pathological abnormalities or Markers of kidney damage (including abnormalities in the composition of the blood or urine or abnormalities in imaging tests). Lab Interpretation Abnormal (test code = 53960-9) [facility]17 11:45:45 Test Item Value Reference Range Interpretation Comments MAGNESIUM (test code = 4381751150) 1.9 mg/dL 1.7-2.4 Lab Interpretation (test code = Normal 40210-3) [facility] MET[facility]OLIC PAN[facility] (NA, K, CL, CO2, GLUCOSE, BUN, CREATININE, CA)2022-07-27 11:45:45 Test Item Value Reference Range Interpretation Comments NA (test code = 130 mmol/L 135-145 L 5092324110) K (test code = 4.1 mmol/L 3.5-5 2531053719) CL (test code = 89 mmol/L 98-108 L 5094220320) CO2 TOTAL (test code = 37 mmol/L 23-31 H 6457077226) AGAP (test code = 2-16 5676787722) BUN (test code = 32 mg/dL 7-23 H 9816283614) GLUCOSE (test code = 180 mg/dL 70-110 H 6394089629) CREATININE (test code = 0.81 mg/dL 0.6-1.25 5158322083) CALCIUM (test code = 8.5 mg/dL 8.6-10.6 L 2171008478) eGFR (test code = mL/min/1.73m2 4524215604) ROSLYN (test code = ROSLYN) Association of Glomerular Filtration Rate (GFR) and Staging of Kidney Disease* + --+ --+ ------+| GFR (mL/min/1.73 m2) ?| With Kidney Damage ?| ?Without Kidney Damage+ --------+ --------+ +| ?>90 ?| ?Stage one ?| ? Normal ?+ ---+ ---+ -------+| ?60-89 ?| ?Stage two ?| ? Decreased GFR ? + --+ --+ ------+| ?30-59 ?| ?Stage three ?| ? Stage three ? + --+ --+ ------+| ?15-29 ?| ?Stage four ? | ? Stage four ?+ ---+ ---+ -------+| ?<15 (or dialysis) ? ?| ?Stage five ? | ? Stage five ?+ ---+ ---+ -------+ *Each stage assumes the associated GFR level has been in effect for at least three months. ?Stages 1 to 5, with or without kidney disease, indicate chronic kidney disease. Notes: Determination of stages one and two (with eGFR >59mL/min/1.73 m2) requires estimation of kidney damage for at least three months as defined by structural or functional abnormalities of the kidney, manifested by either:Pathological abnormalities or Markers of kidney damage (including abnormalities in the composition of the blood or urine or abnormalities in imaging tests). Lab Interpretation Abnormal (test code = 54915-9) [facility] 10:39:46 Test Item Value Reference Range Interpretation Comments POCT GLU (test code = 9464911085) 198 mg/dL 70-110 H Lab Interpretation (test code = Abnormal 50866-5) [facility] GLUCOSE (AUTOMATED)2022-07-27 10:39:46 Test Item Value Reference Range Interpretation Comments POCT GLU (test code = 7681186437) 198 mg/dL 70-110 H Lab Interpretation (test code = Abnormal 46211-5) [facility] GLUCOSE (AUTOMATED)2022-07-27 04:52:50 Test Item Value Reference Range Interpretation Comments POCT GLU (test code = 4515518882) 213 mg/dL 70-110 H Lab Interpretation (test code = Abnormal 13419-3) [facility] GLUCOSE (AUTOMATED)2022-07-27 04:52:50 Test Item Value Reference Range Interpretation Comments POCT GLU (test code = 5262854689) 213 mg/dL 70-110 H Lab Interpretation (test code = Abnormal 85881-6) [facility] GLUCOSE (AUTOMATED)2022-07-27 01:10:58 Test Item Value Reference Range Interpretation Comments POCT GLU (test code = 1967705554) 284 mg/dL 70-110 H Lab Interpretation (test code = Abnormal 18171-1) [facility]22-[facility]27 01:10:58 Test Item Value Reference Range Interpretation Comments POCT GLU (test code = 9885496600) 284 mg/dL 70-110 H Lab Interpretation (test code = Abnormal 20585-0) [facility]2022-07-26 23:39:10 Test Item Value Reference Range Interpretation Comments POCT GLU (test code = 4506222665) 199 mg/dL 70-110 H Lab Interpretation (test code = Abnormal 70048-4) [facility] GLUCOSE (AUTOMATED)2022-07-26 23:39:10 Test Item Value Reference Range Interpretation Comments POCT GLU (test code = 4268251130) 199 mg/dL 70-110 H Lab Interpretation (test code = Abnormal 48691-6) [facility] with [facility] Infusion[facility]2022-07-26 23:32:33 Test Item Value Reference Range Interpretation Comments APTT Patient (test code = See_Comment [ Automated message] 3173-2) The system Rico generated this result transmitted ref erence range: 26 - 36 Seconds. The re ference range was not u sed to interpret this result as normal/abnor mal. Lab Interpretation (test Normal code = 69398-4) [facility] use with [facility] Infusion)2022-07-26 23:32:33 Test Item Value Reference Range Interpretation Comments APTT Patient (test code = See_Comment [ Automated message] 3173-2) The system Rico generated this result transmitted ref erence range: 26 - 36 Seconds. The re ference range was not u sed to interpret this result as normal/abnor mal. Lab Interpretation (test Normal code = 05105-4) [facility] GLUCOSE (AUTOMATED)2022-07-26 16:22:25 Test Item Value Reference Range Interpretation Comments POCT GLU (test code = 6893091804) 167 mg/dL 70-110 H Lab Interpretation (test code = Abnormal 71180-8) [facility] GLUCOSE (AUTOMATED)2022-07-26 16:22:25 Test Item Value Reference Range Interpretation Comments POCT GLU (test code = 4599507046) 167 mg/dL 70-110 H Lab Interpretation (test code = Abnormal 75995-7) [facility] GLUCOSE (AUTOMATED)2022-07-26 12:31:04 Test Item Value Reference Range Interpretation Comments POCT GLU (test code = 8542544020) 164 mg/dL 70-110 H Lab Interpretation (test code = Abnormal 37213-3) [facility] GLUCOSE (AUTOMATED)2022-07-26 12:31:04 Test Item Value Reference Range Interpretation Comments POCT GLU (test code = 3621549730) 164 mg/dL 70-110 H Lab Interpretation (test code = Abnormal 74383-7) [facility] GLUCOSE (AUTOMATED)2022-07-26 11:09:37 Test Item Value Reference Range Interpretation Comments POCT GLU (test code = 0670585166) 184 mg/dL 70-110 H Lab Interpretation (test code = Abnormal 53453-0) [facility] GLUCOSE (AUTOMATED)2022-07-26 11:09:37 Test Item Value Reference Range Interpretation Comments POCT GLU (test code = 2261601264) 184 mg/dL 70-110 H Lab Interpretation (test code = Abnormal 53717-3) [facility] GLUCOSE (AUTOMATED)2022-07-26 08:53:59 Test Item Value Reference Range Interpretation Comments POCT GLU (test code = 9894045868) 200 mg/dL 70-110 H Lab Interpretation (test code = Abnormal 97473-7) [facility] GLUCOSE (AUTOMATED)2022-07-26 08:53:59 Test Item Value Reference Range Interpretation Comments POCT GLU (test code = 7695535352) 200 mg/dL 70-110 H Lab Interpretation (test code = Abnormal 26251-9) [facility] GLUCOSE (AUTOMATED)2022-07-26 05:20:56 Test Item Value Reference Range Interpretation Comments POCT GLU (test code = 6543124562) 197 mg/dL 70-110 H Lab Interpretation (test code = Abnormal 10009-2) [facility] GLUCOSE (AUTOMATED)2022-07-26 05:20:56 Test Item Value Reference Range Interpretation Comments POCT GLU (test code = 1386951137) 197 mg/dL 70-110 H Lab Interpretation (test code = Abnormal 67752-2) [facility] [id number] 03:01:42 Test Item Value Reference Range Interpretation Comments Blood Culture-Aerobic No organisms No growth Previo us (test code = 08113-2) isolated prelim inary verified result was Culture In Progress on 07/21/2022 at 11 10 CDTPrevious preliminary verified result was No growth a t 24 hours on 07/21/2022 at 22 CDTPrevious preliminary verified result was No growth a t 48 hours on 07/22/2022 at 22 01 CDTPrevious preliminary verified result was No growth a t 72 hours on 07/23/2022 at 22 02 CDT Blood No organisms No growth Previous Culture-Anaerobic isolated preliminar y (test code = 95079-9) verifi ed result was Culture In Progress on 07/21/2022 at 11 10 CDTPrevious preliminary verified result was No growth a t 24 hours on 07/21/2022 at 22 01 CDTPrevious preliminary verified result was No growth a t 48 hours on 07/22/2022 at 22 01 CDTPrevious preliminary verified result was No growth a t 72 hours on 07/23/2022 at 22 02 CDT Lab Interpretation Normal (test code = 43362-1) [facility] [id number] 03:01:42 Test Item Value Reference Range Interpretation Comments Blood Culture-Aerobic No organisms No growth Previo us (test code = 90657-5) isolated prelim inary verified result was Culture In Progress on 07/21/2022 at 01 01 CDTPrevious preliminary verified result was No growth a t 24 hours on 07/21/2022 at 22 01 CDTPrevious preliminary verified result was No growth a t 48 hours on 07/22/2022 at 22 01 CDTPrevious preliminary verified result was No growth a t 72 hours on 07/23/2022 at 22 02 CDT Blood No organisms No growth Previous Culture-Anaerobic isolated preliminar y (test code = 10919-6) verifi ed result was Culture In Progress on 07/21/2022 at 01 01 CDTPrevious preliminary verified result was No growth a t 24 hours on 07/21/2022 at 22 01 CDTPrevious preliminary verified result was No growth a t 48 hours on 07/22/2022 at 22 01 CDTPrevious preliminary verified result was No growth a t 72 hours on 07/23/2022 at 22 02 CDT Lab Interpretation Normal (test code = 46292-9) [facility] GLUCOSE (AUTOMATED)2022-07-26 01:46:28 Test Item Value Reference Range Interpretation Comments POCT GLU (test code = 3898942241) 142 mg/dL 70-110 H Lab Interpretation (test code = Abnormal 50156-9) [facility] GLUCOSE (AUTOMATED)2022-07-26 01:46:28 Test Item Value Reference Range Interpretation Comments POCT GLU (test code = 4993837791) 142 mg/dL 70-110 H Lab Interpretation (test code = Abnormal 96796-2) [facility] GLUCOSE (AUTOMATED)2022-07-25 21:23:27 Test Item Value Reference Range Interpretation Comments POCT GLU (test code = 8637034905) 159 mg/dL 70-110 H Lab Interpretation (test code = Abnormal 53860-4) [facility] GLUCOSE (AUTOMATED)2022-07-25 21:23:27 Test Item Value Reference Range Interpretation Comments POCT GLU (test code = 9466991184) 159 mg/dL 70-110 H Lab Interpretation (test code = Abnormal 76401-8) [facility] GLUCOSE (AUTOMATED)2022-07-25 20:47:32 Test Item Value Reference Range Interpretation Comments POCT GLU (test code = 4823052720) 151 mg/dL 70-110 H Lab Interpretation (test code = Abnormal 71619-7) [facility] GLUCOSE (AUTOMATED)2022-07-25 20:47:32 Test Item Value Reference Range Interpretation Comments POCT GLU (test code = 9360901777) 151 mg/dL 70-110 H Lab Interpretation (test code = Abnormal 02443-1) [facility] GLUCOSE (AUTOMATED)2022-07-25 17:16:01 Test Item Value Reference Range Interpretation Comments POCT GLU (test code = 8531984883) 389 mg/dL 70-110 H Lab Interpretation (test code = Abnormal 27480-5) [facility] GLUCOSE (AUTOMATED)2022-07-25 17:16:01 Test Item Value Reference Range Interpretation Comments POCT GLU (test code = 6298424304) 389 mg/dL 70-110 H Lab Interpretation (test code = Abnormal 81373-6) [facility] 15:08:51 Test Item Value Reference Range Interpretation Comments APTT Patient (test code = See_Comment [ Automated message] 3173-2) The system Rico generated this result transmitted ref erence range: 26 - 36 Seconds. The re ference range was not u sed to interpret this result as normal/abnor mal. Lab Interpretation (test Normal code = 24881-9) [facility]2022-07-25 15:08:51 Test Item Value Reference Range Interpretation Comments APTT Patient (test code = See_Comment [ Automated message] 3173-2) The system Rico generated this result transmitted ref erence range: 26 - 36 Seconds. The re ference range was not u sed to interpret this result as normal/abnor mal. Lab Interpretation (test Normal code = 65185-6) [facility] GLUCOSE (AUTOMATED)2022-07-25 13:22:34 Test Item Value Reference Range Interpretation Comments POCT GLU (test code = 9476591724) 168 mg/dL 70-110 H Lab Interpretation (test code = Abnormal 54263-6) [facility] GLUCOSE (AUTOMATED)2022-07-25 13:22:34 Test Item Value Reference Range Interpretation Comments POCT GLU (test code = 3723845081) 168 mg/dL 70-110 H Lab Interpretation (test code = Abnormal 05312-7) [facility] GLUCOSE (AUTOMATED)2022-07-25 01:59:34 Test Item Value Reference Range Interpretation Comments POCT GLU (test code = 8622027622) 202 mg/dL 70-110 H Lab Interpretation (test code = Abnormal 28028-0) [facility] GLUCOSE (AUTOMATED)2022-07-25 01:59:34 Test Item Value Reference Range Interpretation Comments POCT GLU (test code = 0109634198) 202 mg/dL 70-110 H Lab Interpretation (test code = Abnormal 24807-9) [facility] METABOLIC PANEL (NA, K, CL, CO2, GLUCOSE, BUN, CREATININE, CA)2022-07-24 23:06:12 Test Item Value Reference Range Interpretation Comments NA (test code = 135 mmol/L 135-145 4954901934) K (test code = 4.1 mmol/L 3.5-5 6946441072) CL (test code = 95 mmol/L 98-108 L 9771105303) CO2 TOTAL (test code = 39 mmol/L 23-31 H 3837088371) AGAP (test code = 2-16 L 3041732177) BUN (test code = 16 mg/dL 7-23 5702610043) GLUCOSE (test code = 140 mg/dL 70-110 H 0419960914) CREATININE (test code = 0.59 mg/dL 0.6-1.25 L 8180318368) CALCIUM (test code = 8.4 mg/dL 8.6-10.6 L 4568918642) eGFR (test code = mL/min/1.73m2 3702506678) ROSLYN (test code = ROSLYN) Association of Glomerular Filtration Rate (GFR) and Staging of Kidney Disease* + --+ --+ ------+| GFR (mL/min/1.73 m2) ?| With Kidney Damage ?| ?Without Kidney Damage+ --------+ --------+ +| ?>90 ?| ?Stage one ?| ? Normal ?+ ---+ ---+ -------+| ?60-89 ?| ?Stage two ?| ? Decreased GFR ? + --+ --+ ------+| ?30-59 ?| ?Stage three ?| ? Stage three ? + --+ --+ ------+| ?15-29 ?| ?Stage four ? | ? Stage four ?+ ---+ ---+ -------+| ?<15 (or dialysis) ? ?| ?Stage five ? | ? Stage five ?+ ---+ ---+ -------+ *Each stage assumes the associated GFR level has been in effect for at least three months. ?Stages 1 to 5, with or without kidney disease, indicate chronic kidney disease. Notes: Determination of stages one and two (with eGFR >59mL/min/1.73 m2) requires estimation of kidney damage for at least three months as defined by structural or functional abnormalities of the kidney, manifested by either:Pathological abnormalities or Markers of kidney damage (including abnormalities in the composition of the blood or urine or abnormalities in imaging tests). Lab Interpretation Abnormal (test code = 07959-0) [facility]12 Test Item Value Reference Range Interpretation Comments MAGNESIUM (test code = 5325440428) 2.1 mg/dL 1.7-2.4 Lab Interpretation (test code = Normal 67799-8) [facility] (NA, K, CL, CO2, GLUCOSE, BUN, CREATININE, CA)2022-07-24 23:06:12 Test Item Value Reference Range Interpretation Comments NA (test code = 135 mmol/L 135-145 3879389679) K (test code = 4.1 mmol/L 3.5-5 9574848340) CL (test code = 95 mmol/L 98-108 L 7325519081) CO2 TOTAL (test code = 39 mmol/L 23-31 H 0884783037) AGAP (test code = 2-16 L 9859672898) BUN (test code = 16 mg/dL 7-23 0649773658) GLUCOSE (test code = 140 mg/dL 70-110 H 3627034411) CREATININE (test code = 0.59 mg/dL 0.6-1.25 L 4582511423) CALCIUM (test code = 8.4 mg/dL 8.6-10.6 L 2122776005) eGFR (test code = mL/min/1.73m2 2451317516) ROSLYN (test code = ROSLYN) Association of Glomerular Filtration Rate (GFR) and Staging of Kidney Disease* + --+ --+ ------+| GFR (mL/min/1.73 m2) ?| With Kidney Damage ?| ?Without Kidney Damage+ --------+ --------+ +| ?>90 ?| ?Stage one ?| ? Normal ?+ ---+ ---+ -------+| ?60-89 ?| ?Stage two ?| ? Decreased GFR ? + --+ --+ ------+| ?30-59 ?| ?Stage three ?| ? Stage three ? + --+ --+ ------+| ?15-29 ?| ?Stage four ? | ? Stage four ?+ ---+ ---+ -------+| ?<15 (or dialysis) ? ?| ?Stage five ? | ? Stage five ?+ ---+ ---+ -------+ *Each stage assumes the associated GFR level has been in effect for at least three months. ?Stages 1 to 5, with or without kidney disease, indicate chronic kidney disease. Notes: Determination of stages one and two (with eGFR >59mL/min/1.73 m2) requires estimation of kidney damage for at least three months as defined by structural or functional abnormalities of the kidney, manifested by either:Pathological abnormalities or Markers of kidney damage (including abnormalities in the composition of the blood or urine or abnormalities in imaging tests). Lab Interpretation Abnormal (test code = 32984-9) [facility]06:12 Test Item Value Reference Range Interpretation Comments MAGNESIUM (test code = 9746935579) 2.1 mg/dL 1.7-2.4 Lab Interpretation (test code = Normal 72850-3) [facility]2022-07-24 23:00:29 Test Item Value Reference Range Interpretation Comments APTT Patient (test code See_Comment H [Au tomated message] = 3173-2) The system Rico generated this result transmitted ref erence range: 26 - 36 Seconds. The reference range was not used to int erpret this result as normal/abnormal . Lab Interpretation (test Abnormal code = 29594-0) [facility] (for use with Heparin Infusion)2022-07-24 23:00:29 Test Item Value Reference Range Interpretation Comments APTT Patient (test code See_Comment H [Au tomated message] = 3173-2) The system Rico generated this result transmitted ref erence range: 26 - 36 Seconds. The reference range was not used to int erpret this result as normal/abnormal . Lab Interpretation (test Abnormal code = 28464-1) [facility] GLUCOSE (AUTOMATED)2022-07-24 20:44:06 Test Item Value Reference Range Interpretation Comments POCT GLU (test code = 5253991895) 161 mg/dL 70-110 H Lab Interpretation (test code = Abnormal 14048-3) [facility] GLUCOSE (AUTOMATED)2022-07-24 20:44:06 Test Item Value Reference Range Interpretation Comments POCT GLU (test code = 0028286021) 161 mg/dL 70-110 H Lab Interpretation (test code = Abnormal 05018-4) [facility] GLUCOSE (AUTOMATED)2022-07-24 17:17:45 Test Item Value Reference Range Interpretation Comments POCT GLU (test code = 3450754287) 257 mg/dL 70-110 H Lab Interpretation (test code = Abnormal 26913-0) [facility] GLUCOSE (AUTOMATED)2022-07-24 17:17:45 Test Item Value Reference Range Interpretation Comments POCT GLU (test code = 7636836824) 257 mg/dL 70-110 H Lab Interpretation (test code = Abnormal 33522-9) [facility] GLUCOSE (AUTOMATED)2022-07-24 14:12:13 Test Item Value Reference Range Interpretation Comments POCT GLU (test code = 7709813481) 201 mg/dL 70-110 H Lab Interpretation (test code = Abnormal 87825-3) [facility] GLUCOSE (AUTOMATED)2022-07-24 14:12:13 Test Item Value Reference Range Interpretation Comments POCT GLU (test code = 2994142891) 201 mg/dL 70-110 H Lab Interpretation (test code = Abnormal 95608-3) [facility] GLUCOSE (AUTOMATED)2022-07-24 01:57:51 Test Item Value Reference Range Interpretation Comments POCT GLU (test code = 3267918799) 214 mg/dL 70-110 H Lab Interpretation (test code = Abnormal 62109-5) [facility] GLUCOSE (AUTOMATED)2022-07-24 01:57:51 Test Item Value Reference Range Interpretation Comments POCT GLU (test code = 6471036180) 214 mg/dL 70-110 H Lab Interpretation (test code = Abnormal 08142-9) [facility] GLUCOSE (AUTOMATED)2022-07-23 21:55:56 Test Item Value Reference Range Interpretation Comments POCT GLU (test code = 8007096320) 184 mg/dL 70-110 H Lab Interpretation (test code = Abnormal 09232-9) [facility] GLUCOSE (AUTOMATED)2022-07-23 21:55:56 Test Item Value Reference Range Interpretation Comments POCT GLU (test code = 7181403670) 184 mg/dL 70-110 H Lab Interpretation (test code = Abnormal 66430-8) [facility] GLUCOSE (AUTOMATED)2022-07-23 17:27:48 Test Item Value Reference Range Interpretation Comments POCT GLU (test code = 3230115175) 259 mg/dL 70-110 H Lab Interpretation (test code = Abnormal 34009-2) [facility] GLUCOSE (AUTOMATED)2022-07-23 17:27:48 Test Item Value Reference Range Interpretation Comments POCT GLU (test code = 7461185480) 259 mg/dL 70-110 H Lab Interpretation (test code = Abnormal 69152-8) [facility] GLUCOSE (AUTOMATED)2022-07-23 13:05:59 Test Item Value Reference Range Interpretation Comments POCT GLU (test code = 9737089962) 154 mg/dL 70-110 H Lab Interpretation (test code = Abnormal 09522-4) [facility] GLUCOSE (AUTOMATED)2022-07-23 13:05:59 Test Item Value Reference Range Interpretation Comments POCT GLU (test code = 1878699136) 154 mg/dL 70-110 H Lab Interpretation (test code = Abnormal 71468-2) [facility] GLUCOSE (AUTOMATED)2022-07-23 09:58:20 Test Item Value Reference Range Interpretation Comments POCT GLU (test code = 2090274721) 177 mg/dL 70-110 H Lab Interpretation (test code = Abnormal 28323-6) [facility] GLUCOSE (AUTOMATED)2022-07-23 09:58:20 Test Item Value Reference Range Interpretation Comments POCT GLU (test code = 3334944050) 177 mg/dL 70-110 H Lab Interpretation (test code = Abnormal 12875-4) [facility] GLUCOSE (AUTOMATED)2022-07-22 21:30:57 Test Item Value Reference Range Interpretation Comments POCT GLU (test code = 3243708087) 194 mg/dL 70-110 H Lab Interpretation (test code = Abnormal 20338-2) [facility] GLUCOSE (AUTOMATED)2022-07-22 21:30:57 Test Item Value Reference Range Interpretation Comments POCT GLU (test code = 6515923120) 194 mg/dL 70-110 H Lab Interpretation (test code = Abnormal 27064-2) [facility] GLUCOSE (AUTOMATED)2022-07-22 16:52:50 Test Item Value Reference Range Interpretation Comments POCT GLU (test code = 4204189777) 197 mg/dL 70-110 H Lab Interpretation (test code = Abnormal 36594-9) [facility] GLUCOSE (AUTOMATED)2022-07-22 16:52:50 Test Item Value Reference Range Interpretation Comments POCT GLU (test code = 7446995839) 197 mg/dL 70-110 H Lab Interpretation (test code = Abnormal 47305-4) [facility] GLUCOSE (AUTOMATED)2022-07-22 13:22:34 Test Item Value Reference Range Interpretation Comments POCT GLU (test code = 4215872877) 150 mg/dL 70-110 H Lab Interpretation (test code = Abnormal 87324-2) [facility] GLUCOSE (AUTOMATED)2022-07-22 13:22:34 Test Item Value Reference Range Interpretation Comments POCT GLU (test code = 0277339430) 150 mg/dL 70-110 H Lab Interpretation (test code = Abnormal 25967-6) [facility] [id number] 09:38:27 Test Item Value Reference Range Interpretation Comments NT-proBNP (test code 2160 pg/mL See_Comment H [Autom ated = 3767212867) message] The system which generated this result transmitted reference range : <=125. The reference range was not used to interpret this result as normal/abnormal . ROSLYN (test code = ROSLYN) Biotin has been reported to cause a negative bias, interpret results relative to patient's use of biotin. Lab Interpretation Abnormal (test code = 09052-2) [facility] [id number] 09:38:27 Test Item Value Reference Range Interpretation Comments NT-proBNP (test code 2160 pg/mL See_Comment H [Autom ated = 9972401262) message] The system which generated this result transmitted reference range : <=125. The reference range was not used to interpret this result as normal/abnormal . ROSLYN (test code = ROSLYN) Biotin has been reported to cause a negative bias, interpret results relative to patient's use of biotin. Lab Interpretation Abnormal (test code = 06542-9) [facility] 09:31:29 Test Item Value Reference Range Interpretation Comments MAGNESIUM (test code = 3536610602) 1.8 mg/dL 1.7-2.4 Lab Interpretation (test code = Normal 66043-7) [facility] Test Item Value Reference Range Interpretation Comments MAGNESIUM (test code = 7636789178) 1.8 mg/dL 1.7-2.4 Lab Interpretation (test code = Normal 86148-2) [facility] (NA, K, CL, CO2, GLUCOSE, BUN, CREATININE, CA)2022-07-22 09:31:09 Test Item Value Reference Range Interpretation Comments NA (test code = 137 mmol/L 135-145 6583738603) K (test code = 4.0 mmol/L 3.5-5 4913787116) CL (test code = 98 mmol/L 98-108 7769264832) CO2 TOTAL (test code = 34 mmol/L 23-31 H 0573678716) AGAP (test code = 2-16 5350828160) BUN (test code = 16 mg/dL 7-23 2875525037) GLUCOSE (test code = 177 mg/dL 70-110 H 2855488717) CREATININE (test code = 0.66 mg/dL 0.6-1.25 8001873761) CALCIUM (test code = 8.2 mg/dL 8.6-10.6 L 3272766568) eGFR (test code = mL/min/1.73m2 0380667193) ROSLYN (test code = ROSLYN) Association of Glomerular Filtration Rate (GFR) and Staging of Kidney Disease* + --+ --+ ------+| GFR (mL/min/1.73 m2) ?| With Kidney Damage ?| ?Without Kidney Damage+ --------+ --------+ +| ?>90 ?| ?Stage one ?| ? Normal ?+ ---+ ---+ -------+| ?60-89 ?| ?Stage two ?| ? Decreased GFR ? + --+ --+ ------+| ?30-59 ?| ?Stage three ?| ? Stage three ? + --+ --+ ------+| ?15-29 ?| ?Stage four ? | ? Stage four ?+ ---+ ---+ -------+| ?<15 (or dialysis) ? ?| ?Stage five ? | ? Stage five ?+ ---+ ---+ -------+ *Each stage assumes the associated GFR level has been in effect for at least three months. ?Stages 1 to 5, with or without kidney disease, indicate chronic kidney disease. Notes: Determination of stages one and two (with eGFR >59mL/min/1.73 m2) requires estimation of kidney damage for at least three months as defined by structural or functional abnormalities of the kidney, manifested by either:Pathological abnormalities or Markers of kidney damage (including abnormalities in the composition of the blood or urine or abnormalities in imaging tests). Lab Interpretation Abnormal (test code = 04239-0) [facility] METABOLIC PANEL (NA, K, CL, CO2, GLUCOSE, BUN, CREATININE, CA)2022-07-22 09:31:09 Test Item Value Reference Range Interpretation Comments NA (test code = 137 mmol/L 135-145 7262021783) K (test code = 4.0 mmol/L 3.5-5 5985029626) CL (test code = 98 mmol/L 98-108 3932597178) CO2 TOTAL (test code = 34 mmol/L 23-31 H 4902333922) AGAP (test code = 2-16 6571251423) BUN (test code = 16 mg/dL 7-23 5023741278) GLUCOSE (test code = 177 mg/dL 70-110 H 2405806273) CREATININE (test code = 0.66 mg/dL 0.6-1.25 3445605150) CALCIUM (test code = 8.2 mg/dL 8.6-10.6 L 1882554402) eGFR (test code = mL/min/1.73m2 2907445776) ROSLYN (test code = ROSLYN) Association of Glomerular Filtration Rate (GFR) and Staging of Kidney Disease* + --+ --+ ------+| GFR (mL/min/1.73 m2) ?| With Kidney Damage ?| ?Without Kidney Damage+ --------+ --------+ +| ?>90 ?| ?Stage one ?| ? Normal ?+ ---+ ---+ -------+| ?60-89 ?| ?Stage two ?| ? Decreased GFR ? + --+ --+ ------+| ?30-59 ?| ?Stage three ?| ? Stage three ? + --+ --+ ------+| ?15-29 ?| ?Stage four ? | ? Stage four ?+ ---+ ---+ -------+| ?<15 (or dialysis) ? ?| ?Stage five ? | ? Stage five ?+ ---+ ---+ -------+ *Each stage assumes the associated GFR level has been in effect for at least three months. ?Stages 1 to 5, with or without kidney disease, indicate chronic kidney disease. Notes: Determination of stages one and two (with eGFR >59mL/min/1.73 m2) requires estimation of kidney damage for at least three months as defined by structural or functional abnormalities of the kidney, manifested by either:Pathological abnormalities or Markers of kidney damage (including abnormalities in the composition of the blood or urine or abnormalities in imaging tests). Lab Interpretation Abnormal (test code = 21741-2) [facility] (ALB,T.PRO,BILI T,BU/BC,ALT,AST,ALK PHOS)2022-07-22 09:30:44 Test Item Value Reference Range Interpretation Comments TOTAL BILI (test code = 3773732187) 1.2 mg/dL 0.1-1.1 H BILI UNCON (test code = 9689584163) 0.9 mg/dL 0.1-1.1 BILI CONJ (test code = 9492460100) 0.0 mg/dL 0-0.3 T PROTEIN (test code = 3315953431) 6.5 g/dL 6.3-8.2 ALBUMIN (test code = 7567653980) 3.7 g/dL 3.5-5 ALK PHOS (test code = 8799763114) 67 U/L 34-122 ALTv (test code = 1742-6) 33 U/L 5-50 AST(SGOT) (test code = 0433828273) 30 U/L 13-40 Lab Interpretation (test code = Abnormal 90892-0) [facility]2022-[facility]-12 09:30:44 Test Item Value Reference Range Interpretation Comments PHOSPHORUS (test code = 5771659387) 3.6 mg/dL 2.5-5 Lab Interpretation (test code = Normal 19168-3) [facility] (30932[facility] (ALB,T.PRO,BILI T,BU/BC,ALT,AST,ALK PHOS)2022-07-22 09:30:44 Test Item Value Reference Range Interpretation Comments TOTAL BILI (test code = 9877649791) 1.2 mg/dL 0.1-1.1 H BILI UNCON (test code = 0459219335) 0.9 mg/dL 0.1-1.1 BILI CONJ (test code = 4105773750) 0.0 mg/dL 0-0.3 T PROTEIN (test code = 4451385565) 6.5 g/dL 6.3-8.2 ALBUMIN (test code = 8418550265) 3.7 g/dL 3.5-5 ALK PHOS (test code = 1586464152) 67 U/L 34-122 ALTv (test code = 1742-6) 33 U/L 5-50 AST(SGOT) (test code = 4908031991) 30 U/L 13-40 Lab Interpretation (test code = Abnormal 88133-1) [facility]20[facility]12 09:30:44 Test Item Value Reference Range Interpretation Comments PHOSPHORUS (test code = 2459277212) 3.6 mg/dL 2.5-5 Lab Interpretation (test code = Normal 76021-2) [facility] CenterCBC WITH [id number] 09:23:08 Test Item Value Reference Range Interpretation Comments WBC (test code = See_Comment H [Automated 3090-2) message] The system which generated this result transmit artem reference range : 4.20 - 10.70 10*3/?L. The reference range was not used to interpret this result as normal/abnormal . RBC (test code = See_Comment [Automated 789-8) message] The system which generated this result transmit artem reference range : 4.26 - 5.52 10*6/?L. The reference range was not used to interpret this result as normal/abnormal . HGB (test code = 15.7 g/dL 12.2-16.4 718-7) HCT (test code = 49.0 % 38.4-49.3 4544-3) MCV (test code = 93.2 fL 81.7-95.6 787-2) MCH (test code = 29.8 pg 26.1-32.7 785-6) MCHC (test code = 32.0 g/dL 31.2-35 786-4) RDW-SD (test code = 46.6 fL 38.5-51.6 75891-0) RDW-CV (test code = 13.5 % 12.1-15.4 788-0) PLT (test code = See_Comment L [Automated 777-3) message] The system which generated this result transmit artem reference range : 150 - 328 10*3/ ?L. The reference range was not u sed to interpret th is result as normal/abnormal . MPV (test code = 12.7 fL 9.8-13 84289-8) NRBC/100 WBC (test See_Comment [Automat ed code = 9863141266) message] The system which generated this result transmit artem reference range : 0.0 - 10.0 /100 WBCs. The reference range was not used to interpret this result as normal/abnormal . NRBC x10^3 (test code See_Comment [Auto mated = 5325196036) message] The system which generated this result transmit artem reference range : 10*3/?L. The reference range was not used to interpret this result as normal/abnormal . GRAN MAT (NEUT) % 71.3 % (test code = 770-8) IMM GRAN % (test code 0.40 % = 2083177230) LYMPH % (test code = 17.4 % 736-9) MONO % (test code = 9.8 % 5905-5) EOS % (test code = 0.8 % 713-8) BASO % (test code = 0.3 % 706-2) GRAN MAT x10^3(ANC) 10.18 10*3/uL 1.99-6.95 H (test code = 1976901525) IMM GRAN x10^3 (test 0.06 10*3/uL 0-0.06 code = 3034975099) LYMPH x10^3 (test code 2.49 10*3/uL 1.09-3.23 = 731-0) MONO x10^3 (test code 1.40 10*3/uL 0.36-1.02 H = 742-7) EOS x10^3 (test code = 0.11 10*3/uL 0.06-0.53 711-2) BASO x10^3 (test code 0.04 10*3/uL 0.01-0.09 = 704-7) Lab Interpretation Abnormal (test code = 07120-1) [facility] WITH [id number] 09:23:08 Test Item Value Reference Range Interpretation Comments WBC (test code = See_Comment H [Automated 3590-2) message] The system which generated this result transmit artem reference range : 4.20 - 10.70 10*3/?L. The reference range was not used to interpret this result as normal/abnormal . RBC (test code = See_Comment [Automated 039-8) message] The system which generated this result transmit artem reference range : 4.26 - 5.52 10*6/?L. The reference range was not used to interpret this result as normal/abnormal . HGB (test code = 15.7 g/dL 12.2-16.4 718-7) HCT (test code = 49.0 % 38.4-49.3 4544-3) MCV (test code = 93.2 fL 81.7-95.6 787-2) MCH (test code = 29.8 pg 26.1-32.7 785-6) MCHC (test code = 32.0 g/dL 31.2-35 786-4) RDW-SD (test code = 46.6 fL 38.5-51.6 23868-9) RDW-CV (test code = 13.5 % 12.1-15.4 788-0) PLT (test code = See_Comment L [Automated 777-3) message] The system which generated this result transmit artem reference range : 150 - 328 10*3/ ?L. The reference range was not u sed to interpret th is result as normal/abnormal . MPV (test code = 12.7 fL 9.8-13 58830-6) NRBC/100 WBC (test See_Comment [Automat ed code = 4546117805) message] The system which generated this result transmit artem reference range : 0.0 - 10.0 /100 WBCs. The reference range was not used to interpret this result as normal/abnormal . NRBC x10^3 (test code See_Comment [Auto mated = 4781886665) message] The system which generated this result transmit artem reference range : 10*3/?L. The reference range was not used to interpret this result as normal/abnormal . GRAN MAT (NEUT) % 71.3 % (test code = 770-8) IMM GRAN % (test code 0.40 % = 5565313758) LYMPH % (test code = 17.4 % 736-9) MONO % (test code = 9.8 % 5905-5) EOS % (test code = 0.8 % 713-8) BASO % (test code = 0.3 % 706-2) GRAN MAT x10^3(ANC) 10.18 10*3/uL 1.99-6.95 H (test code = 9402709957) IMM GRAN x10^3 (test 0.06 10*3/uL 0-0.06 code = 9792445385) LYMPH x10^3 (test code 2.49 10*3/uL 1.09-3.23 = 731-0) MONO x10^3 (test code 1.40 10*3/uL 0.36-1.02 H = 742-7) EOS x10^3 (test code = 0.11 10*3/uL 0.06-0.53 711-2) BASO x10^3 (test code 0.04 10*3/uL 0.01-0.09 = 704-7) Lab Interpretation Abnormal (test code = 96608-8) [facility] GLUCOSE (AUTOMATED)2022-07-22 01:47:13 Test Item Value Reference Range Interpretation Comments POCT GLU (test code = 4147490819) 220 mg/dL 70-110 H Lab Interpretation (test code = Abnormal 10261-7) [facility] GLUCOSE (AUTOMATED)2022-07-22 01:47:13 Test Item Value Reference Range Interpretation Comments POCT GLU (test code = 6024049761) 220 mg/dL 70-110 H Lab Interpretation (test code = Abnormal 25326-5) [facility] Center[facility] (24103)(TOTAL CHOLESTEROL, TRIGLYCERIDES, HDL)2022-07-22 00:19:28 Test Item Value Reference Range Interpretation Comments CHOL (test code = 121 mg/dL 120-200 1898129013) HDL (test code = 28 mg/dL See_Comment L [Automated message] 4420301036) The system Rico generated this result transmit artem reference range : >=40. The refer ence range was not u sed to interpret th is result as normal/abnormal . HDLC RATIO (test code = See_Comment [Au tomated message] 1781488261) The system Rico generated this result transmit artem reference range : <=5.0. The refe rence range was not u sed to interpret th is result as normal/abnormal . TRIG (test code = 119 mg/dL 30-170 5456058818) LDL CHOL (test code = 69 mg/dL See_Comment [Auto mated message] 83248-5) The system Rico generated this result transmit artem reference range : <=160. The refe rence range was not u sed to interpret th is result as normal/abnormal . VLDL (test code = 24 mg/dL 5-60 8774504406) Lab Interpretation (test Abnormal code = 13993-3) [facility] (36981)(TOTAL CHOLESTEROL, TRIGLYCERIDES, HDL)2022-07-22 00:19:28 Test Item Value Reference Range Interpretation Comments CHOL (test code = 121 mg/dL 120-200 6487810044) HDL (test code = 28 mg/dL See_Comment L [Automated message] 6994935943) The system Rico generated this result transmit artem reference range : >=40. The refer ence range was not u sed to interpret th is result as normal/abnormal . HDLC RATIO (test code = See_Comment [Au tomated message] 9844014527) The system Rico generated this result transmit artem reference range : <=5.0. The refe rence range was not u sed to interpret th is result as normal/abnormal . TRIG (test code = 119 mg/dL 30-170 8780783290) LDL CHOL (test code = 69 mg/dL See_Comment [Auto mated message] 14747-6) The system Rico generated this result transmit artem reference range : <=160. The refe rence range was not u sed to interpret th is result as normal/abnormal . VLDL (test code = 24 mg/dL 5-60 0725537032) Lab Interpretation (test Abnormal code = 28624-6) [facility]2022-07-22 00:00:55 Test Item Value Reference Range Interpretation Comments Height (test code = in 9336510298) Weight (test code = lbs 2382986859) Systolic BP (test code = mmHg 6041150153) Diastolic BP (test code mmHg = 7805050057) Heart Rate (test code = bpm 5790269902) BSA (test code = 2.04 m2 3576886748) Ao root annulus (test 3.5 cm code = 3706375222) Ao root diam (test code 3.50 cm = 7131546886) Aortic root (test code = 3.5 cm 0922690097) LVOT diameter (test code 2.19 cm = 6078116483) LVOT area (test code = 3.80 cm2 9244434805) LVIDD (test code = 5.30 cm 9846488910) Left Ventricular End 135.3 mL Diastolic Volume by Teichholz Method (test code = 4824106) IVS (test code = 1.26 cm 7601505131) Interventricular Septum 1.26 cm Diastolic Thickness by 2D (test code = 4746468) LVPWD (test code = 1.26 cm 8504277657) PW (test code = 1.26 cm 0.6-1.5 7353421513) EF(Teich) (test code = 16.40 % 8435931896) LVIDS (test code = 4.90 cm 5885652530) Left Ventricular End 113.1 mL Systolic Volume by Teichholz Method (test code = 2340939) FS (test code = 7 % 8372005106) EF - 2D (test code = 16.40 % 53710604) LA size (test code = 4.3 cm 5468191405) TR Peak Anthony (test code = 249.6 cm/s 0857293077) Triscuspid Valve mmHg Regurgitation Peak Gradient (test code = 0364232980) LAV(MOD-sp4) (test code 79.00 mL = 6828454852) E wave decelartion time 0.13 s (test code = 9492973716) MV Peak E Anthony (test code 82.3 cm/s = 6631799945) MV stenosis pressure 1/2 38.8 ms time (test code = 0546461073) MV Peak A Anthony (test code 40.8 cm/s = 9058865107) E/A ratio (test code = ratio 6271699071) MR max PG (test code = 61.50 mm[Hg] 9552267692) MR max anthony (test code = 392.20 cm/s 3050120569) Mr max anthony (test code = 392.2 m/s 9448195502) MV Prop V (test code = 33.40 cm/s 6571475579) MV E/e' septal (test 12.6 cm/s code = 2005152317) Tapse (test code = 1.17 cm 1804978207) LVOT stroke volume (test 52.20 cm3 code = 3447129771) LVOT peak anthony (test code 86.4 cm/s = 1274617430) LVOT mn grad (test code mmHg = 8037001720) AV LVOT peak gradient mmHg (test code = 7458308016) LVOT peak VTI (test code 13.9 cm = 5302335095) LV V1 mean (test code = 57.20 cm/s 0734116962) Aortic valve mean 94.3 cm/s velocity (test code = 1700010985) Ao peak anthony (test code = 125.8 cm/s 2786065596) Ao VTI (test code = 22.6 cm 4328845639) AV area by cont VTI 2.3 cm2 (test code = 5645813967) AV area peak anthony (test 2.6 cm2 code = 8960194106) Ao max PG (test code = 6.30 mm[Hg] 6668045162) AV peak gradient (test mmHg code = 1839913417) AV valve area (test code 2.31 cm2 = 8088532339) AV mean gradient (test mmHg code = 9916863197) Radiology Study observation (narrative) (test code = 27746-3) ROSLYN (test code = ROSLYN) ?Left?Ventricle: Left ventricle is mildly dilated. Mildly increased wall thickness. Septal flattening in diastole consistent with right ventricular volume overload. . Severe global hypokinesis present. Severely reduced systolic function with a visually estimated EF of 15 - 20%. Unable to assess diastolic function due to arrhythmia. Elevated left ventricular filling pressure. ?Tricuspid?Valve: Right ventricular systolic pressure is 35-40 mmHg. ?RA pressure is 10-15 mmHg. ?Right?Ventricle: Right ventricle is mildly dilated. Moderately reduced systolic function. ?Right?Atrium: Right atrium is severely dilated. Left VentricleLeft ventricle is mildly dilated. Mildly increased wall thickness. Septal flattening in diastole consistent with right ventricular volume overload. . Severe global hypokinesis present. Severely reduced systolic function with a visually estimated EF of 15 - 20%. Unable to assess diastolic function due to arrhythmia. Elevated left ventricular filling pressure.Right VentricleRight ventricle is mildly dilated. Moderately reduced systolic function.Left AtriumLeft atrium size is normal.Right AtriumRight atrium is severely dilated.Mitral ValveMitral valve structure is normal. Trace transvalvular regurgitation.Tricusp id ValveTricuspid valve structure is normal. Trace transvalvular regurgitation. Right ventricular systolic pressure is 35-40 mmHg. RA pressure is 10-15 mmHg.Aortic ValveTricuspid.Pulmon ic ValveNot well visualized.Ascending AortaAorta is normal in size.PericardiumTrivi al pericardial effusion present.Study DetailsStudy quality was adequate. A complete echocardiogram was performed using 2D, color flow Doppler and spectral Doppler. 5 mL of Lumason ultrasound enhancing agent used. [facility]:00:55 Test Item Value Reference Range Interpretation Comments Height (test code = in 8204347085) Weight (test code = lbs 2173245310) Systolic BP (test code = mmHg 4094786595) Diastolic BP (test code mmHg = 6124300065) Heart Rate (test code = bpm 8801725072) BSA (test code = 2.04 m2 4547204561) Ao root annulus (test 3.5 cm code = 7893059304) Ao root diam (test code 3.50 cm = 0900634337) Aortic root (test code = 3.5 cm 9374570422) LVOT diameter (test code 2.19 cm = 6835024919) LVOT area (test code = 3.80 cm2 2357495615) LVIDD (test code = 5.30 cm 8935106475) Left Ventricular End 135.3 mL Diastolic Volume by Teichholz Method (test code = 9655487) IVS (test code = 1.26 cm 8505181000) Interventricular Septum 1.26 cm Diastolic Thickness by 2D (test code = 3998776) LVPWD (test code = 1.26 cm 1595471014) PW (test code = 1.26 cm 0.6-1.0 6242821783) EF(Teich) (test code = 16.40 % 8136980525) LVIDS (test code = 4.90 cm 7871260571) Left Ventricular End 113.1 mL Systolic Volume by Teichholz Method (test code = 9374987) FS (test code = 7 % 7733652329) EF - 2D (test code = 16.40 % 94102630) LA size (test code = 4.3 cm 2885772477) TR Peak Anthony (test code = 249.6 cm/s 1539698265) Triscuspid Valve mmHg Regurgitation Peak Gradient (test code = 7455934008) LAV(MOD-sp4) (test code 79.00 mL = 0043214725) E wave decelartion time 0.13 s (test code = 4412361414) MV Peak E Anthony (test code 82.3 cm/s = 6466842622) MV stenosis pressure 1/2 38.8 ms time (test code = 4964822133) MV Peak A Anthony (test code 40.8 cm/s = 3740773839) E/A ratio (test code = ratio 7097319906) MR max PG (test code = 61.50 mm[Hg] 9879884304) MR max anthony (test code = 392.20 cm/s 1759105784) Mr max anthony (test code = 392.2 m/s 1653110183) MV Prop V (test code = 33.40 cm/s 9330150723) MV E/e' septal (test 12.6 cm/s code = 2549010747) Tapse (test code = 1.17 cm 7424239286) LVOT stroke volume (test 52.20 cm3 code = 0141812643) LVOT peak anthony (test code 86.4 cm/s = 6553476793) LVOT mn grad (test code mmHg = 6633484615) AV LVOT peak gradient mmHg (test code = 1696359895) LVOT peak VTI (test code 13.9 cm = 3843419298) LV V1 mean (test code = 57.20 cm/s 7757864307) Aortic valve mean 94.3 cm/s velocity (test code = 5355273569) Ao peak anthony (test code = 125.8 cm/s 3203552604) Ao VTI (test code = 22.6 cm 9322748359) AV area by cont VTI 2.3 cm2 (test code = 2675145435) AV area peak anthony (test 2.6 cm2 code = 8584747692) Ao max PG (test code = 6.30 mm[Hg] 9988030558) AV peak gradient (test mmHg code = 6329596552) AV valve area (test code 2.31 cm2 = 8280515957) AV mean gradient (test mmHg code = 0261423868) Radiology Study observation (narrative) (test code = 19258-3) ROSLYN (test code = ROSLYN) ?Left?Ventricle: Left ventricle is mildly dilated. Mildly increased wall thickness. Septal flattening in diastole consistent with right ventricular volume overload. . Severe global hypokinesis present. Severely reduced systolic function with a visually estimated EF of 15 - 20%. Unable to assess diastolic function due to arrhythmia. Elevated left ventricular filling pressure. ?Tricuspid?Valve: Right ventricular systolic pressure is 35-40 mmHg. ?RA pressure is 10-15 mmHg. ?Right?Ventricle: Right ventricle is mildly dilated. Moderately reduced systolic function. ?Right?Atrium: Right atrium is severely dilated. Left VentricleLeft ventricle is mildly dilated. Mildly increased wall thickness. Septal flattening in diastole consistent with right ventricular volume overload. . Severe global hypokinesis present. Severely reduced systolic function with a visually estimated EF of 15 - 20%. Unable to assess diastolic function due to arrhythmia. Elevated left ventricular filling pressure.Right VentricleRight ventricle is mildly dilated. Moderately reduced systolic function.Left AtriumLeft atrium size is normal.Right AtriumRight atrium is severely dilated.Mitral ValveMitral valve structure is normal. Trace transvalvular regurgitation.Tricusp id ValveTricuspid valve structure is normal. Trace transvalvular regurgitation. Right ventricular systolic pressure is 35-40 mmHg. RA pressure is 10-15 mmHg.Aortic ValveTricuspid.Pulmon ic ValveNot well visualized.Ascending AortaAorta is normal in size.PericardiumTrivi al pericardial effusion present.Study DetailsStudy quality was adequate. A complete echocardiogram was performed using 2D, color flow Doppler and spectral Doppler. 5 mL of Lumason ultrasound enhancing agent used. [facility] GLUCOSE (AUTOMATED)2022-07-21 21:54:48 Test Item Value Reference Range Interpretation Comments POCT GLU (test code = 8369004441) 161 mg/dL 70-110 H Lab Interpretation (test code = Abnormal 05410-0) [facility] GLUCOSE (AUTOMATED)2022-07-21 21:54:48 Test Item Value Reference Range Interpretation Comments POCT GLU (test code = 8229464442) 161 mg/dL 70-110 H Lab Interpretation (test code = Abnormal 38896-0) [facility] GLUCOSE (AUTOMATED)2022-07-21 16:47:05 Test Item Value Reference Range Interpretation Comments POCT GLU (test code = 4321995801) 132 mg/dL 70-110 H Lab Interpretation (test code = Abnormal 68788-2) [facility] GLUCOSE (AUTOMATED)2022-07-21 16:47:05 Test Item Value Reference Range Interpretation Comments POCT GLU (test code = 8505925017) 132 mg/dL 70-110 H Lab Interpretation (test code = Abnormal 24090-5) [facility] GLUCOSE (AUTOMATED)2022-07-21 15:03:01 Test Item Value Reference Range Interpretation Comments POCT GLU (test code = 1519802002) 182 mg/dL 70-110 H Lab Interpretation (test code = Abnormal 63584-6) [facility] GLUCOSE (AUTOMATED)2022-07-21 15:03:01 Test Item Value Reference Range Interpretation Comments POCT GLU (test code = 8480522585) 182 mg/dL 70-110 H Lab Interpretation (test code = Abnormal 22451-1) General acute hospital with [id number] 14:58:14 Test Item Value Reference Range Interpretation Comments WBC (test code = See_Comment H [Automated 8590-2) message] The system which generated this result transmit artem reference range : 4.20 - 10.70 10*3/?L. The reference range was not used to interpret this result as normal/abnormal . RBC (test code = See_Comment [Automated 949-8) message] The system which generated this result transmit artem reference range : 4.26 - 5.52 10*6/?L. The reference range was not used to interpret this result as normal/abnormal . HGB (test code = 15.4 g/dL 12.2-16.4 718-7) HCT (test code = 47.2 % 38.4-49.3 4544-3) MCV (test code = 91.5 fL 81.7-95.6 787-2) MCH (test code = 29.8 pg 26.1-32.7 785-6) MCHC (test code = 32.6 g/dL 31.2-35 786-4) RDW-SD (test code = 46.4 fL 38.5-51.6 24560-1) RDW-CV (test code = 13.5 % 12.1-15.4 788-0) PLT (test code = See_Comment [Automated 777-3) message] The system which generated this result transmit artem reference range : 150 - 328 10*3/ ?L. The reference range was not u sed to interpret th is result as normal/abnormal . MPV (test code = 13.0 fL 9.8-13 85024-8) NRBC/100 WBC (test See_Comment [Automat ed code = 7427543414) message] The system which generated this result transmit artem reference range : 0.0 - 10.0 /100 WBCs. The reference range was not used to interpret this result as normal/abnormal . NRBC x10^3 (test code See_Comment [Auto mated = 1669807129) message] The system which generated this result transmit artem reference range : 10*3/?L. The reference range was not used to interpret this result as normal/abnormal . GRAN MAT (NEUT) % 71.1 % (test code = 770-8) IMM GRAN % (test code 0.40 % = 0172655166) LYMPH % (test code = 17.6 % 736-9) MONO % (test code = 10.3 % 5905-5) EOS % (test code = 0.3 % 713-8) BASO % (test code = 0.3 % 706-2) GRAN MAT x10^3(ANC) 10.55 10*3/uL 1.99-6.95 H (test code = 6631680025) IMM GRAN x10^3 (test 0.06 10*3/uL 0-0.06 code = 0435985879) LYMPH x10^3 (test code 2.61 10*3/uL 1.09-3.23 = 731-0) MONO x10^3 (test code 1.53 10*3/uL 0.36-1.02 H = 742-7) EOS x10^3 (test code = 0.04 10*3/uL 0.06-0.53 L 711-2) BASO x10^3 (test code 0.04 10*3/uL 0.01-0.09 = 704-7) BANDS (test code = Increased A 8999220761) REACT LYMPHS (test Rare code = 4952135895) GIANT PLATELETS (test Present See_Comment A [Auto mated code = 5908-9) message] The system which generated this result transmit artem reference range : (none). The reference range was not used to interpret this result as normal/abnormal . Lab Interpretation Abnormal (test code = 97920-3) General acute hospital with Sirpabcuwzns2413-64-46 14:58:14 Test Item Value Reference Range Interpretation Comments WBC (test code = See_Comment H [Automated 6690-2) message] The system which generated this result transmit artem reference range : 4.20 - 10.70 10*3/?L. The reference range was not used to interpret this result as normal/abnormal . RBC (test code = See_Comment [Automated 789-8) message] The system which generated this result transmit artem reference range : 4.26 - 5.52 10*6/?L. The reference range was not used to interpret this result as normal/abnormal . HGB (test code = 15.4 g/dL 12.2-16.4 718-7) HCT (test code = 47.2 % 38.4-49.3 4544-3) MCV (test code = 91.5 fL 81.7-95.6 787-2) MCH (test code = 29.8 pg 26.1-32.7 785-6) MCHC (test code = 32.6 g/dL 31.2-35 786-4) RDW-SD (test code = 46.4 fL 38.5-51.6 95446-9) RDW-CV (test code = 13.5 % 12.1-15.4 788-0) PLT (test code = See_Comment [Automated 777-3) message] The system which generated this result transmit artem reference range : 150 - 328 10*3/ ?L. The reference range was not u sed to interpret th is result as normal/abnormal . MPV (test code = 13.0 fL 9.8-13 24251-8) NRBC/100 WBC (test See_Comment [Automat ed code = 5935309393) message] The system which generated this result transmit artem reference range : 0.0 - 10.0 /100 WBCs. The reference range was not used to interpret this result as normal/abnormal . NRBC x10^3 (test code See_Comment [Auto mated = 3375041323) message] The system which generated this result transmit artem reference range : 10*3/?L. The reference range was not used to interpret this result as normal/abnormal . GRAN MAT (NEUT) % 71.1 % (test code = 243-8) IMM GRAN % (test code 0.40 % = 7232762070) LYMPH % (test code = 17.6 % 736-9) MONO % (test code = 10.3 % 5905-5) EOS % (test code = 0.3 % 713-8) BASO % (test code = 0.3 % 706-2) GRAN MAT x10^3(ANC) 10.55 10*3/uL 1.99-6.95 H (test code = 1114888274) IMM GRAN x10^3 (test 0.06 10*3/uL 0-0.06 code = 8302633839) LYMPH x10^3 (test code 2.61 10*3/uL 1.09-3.23 = 731-0) MONO x10^3 (test code 1.53 10*3/uL 0.36-1.02 H = 742-7) EOS x10^3 (test code = 0.04 10*3/uL 0.06-0.53 L 711-2) BASO x10^3 (test code 0.04 10*3/uL 0.01-0.09 = 704-7) BANDS (test code = Increased A 9223983107) REACT LYMPHS (test Rare code = 0278578161) GIANT PLATELETS (test Present See_Comment A [Auto mated code = 5908-9) message] The system which generated this result transmit artem reference range : (none). The reference range was not used to interpret this result as normal/abnormal . Lab Interpretation Abnormal (test code = 74224-9) [facility] GLUCOSE (AUTOMATED)2022-07-21 13:20:46 Test Item Value Reference Range Interpretation Comments POCT GLU (test code = 8047591900) 148 mg/dL 70-110 H Lab Interpretation (test code = Abnormal 82564-6) [facility] GLUCOSE (AUTOMATED)2022-07-21 13:20:46 Test Item Value Reference Range Interpretation Comments POCT GLU (test code = 6671400918) 148 mg/dL 70-110 H Lab Interpretation (test code = Abnormal 70881-3) [facility] Metabolic Panel (NA, K, CL, CO2, GLUCOSE, BUN, CREATININE, CA)2022-07-21 13:17:35 Test Item Value Reference Range Interpretation Comments NA (test code = 134 mmol/L 135-145 L 8320761492) K (test code = 4.1 mmol/L 3.5-5 3126382923) CL (test code = 99 mmol/L 98-108 2534424996) CO2 TOTAL (test code = 32 mmol/L 23-31 H 7669350155) AGAP (test code = 2-16 2721675803) BUN (test code = 17 mg/dL 7-23 4738823469) GLUCOSE (test code = 186 mg/dL 70-110 H 7410748771) CREATININE (test code = 0.65 mg/dL 0.6-1.25 7340460105) CALCIUM (test code = 8.2 mg/dL 8.6-10.6 L 1294167317) eGFR (test code = mL/min/1.73m2 7794686368) ROSLYN (test code = ROSLYN) Association of Glomerular Filtration Rate (GFR) and Staging of Kidney Disease* + --+ --+ ------+| GFR (mL/min/1.73 m2) ?| With Kidney Damage ?| ?Without Kidney Damage+ --------+ --------+ +| ?>90 ?| ?Stage one ?| ? Normal ?+ ---+ ---+ -------+| ?60-89 ?| ?Stage two ?| ? Decreased GFR ? + --+ --+ ------+| ?30-59 ?| ?Stage three ?| ? Stage three ? + --+ --+ ------+| ?15-29 ?| ?Stage four ? | ? Stage four ?+ ---+ ---+ -------+| ?<15 (or dialysis) ? ?| ?Stage five ? | ? Stage five ?+ ---+ ---+ -------+ *Each stage assumes the associated GFR level has been in effect for at least three months. ?Stages 1 to 5, with or without kidney disease, indicate chronic kidney disease. Notes: Determination of stages one and two (with eGFR >59mL/min/1.73 m2) requires estimation of kidney damage for at least three months as defined by structural or functional abnormalities of the kidney, manifested by either:Pathological abnormalities or Markers of kidney damage (including abnormalities in the composition of the blood or urine or abnormalities in imaging tests). Lab Interpretation Abnormal (test code = 55792-3) [facility] Metabolic Panel (NA, K, CL, CO2, GLUCOSE, BUN, CREATININE, CA)2022-07-21 13:17:35 Test Item Value Reference Range Interpretation Comments NA (test code = 134 mmol/L 135-145 L 1588165481) K (test code = 4.1 mmol/L 3.5-5 0865634820) CL (test code = 99 mmol/L 98-108 2058764956) CO2 TOTAL (test code = 32 mmol/L 23-31 H 8442741629) AGAP (test code = 2-16 5245614366) BUN (test code = 17 mg/dL 7-23 9750779073) GLUCOSE (test code = 186 mg/dL 70-110 H 3510785533) CREATININE (test code = 0.65 mg/dL 0.6-1.25 8664220573) CALCIUM (test code = 8.2 mg/dL 8.6-10.6 L 6089956064) eGFR (test code = mL/min/1.73m2 1537345538) ROSLYN (test code = ROSLYN) Association of Glomerular Filtration Rate (GFR) and Staging of Kidney Disease* + --+ --+ ------+| GFR (mL/min/1.73 m2) ?| With Kidney Damage ?| ?Without Kidney Damage+ --------+ --------+ +| ?>90 ?| ?Stage one ?| ? Normal ?+ ---+ ---+ -------+| ?60-89 ?| ?Stage two ?| ? Decreased GFR ? + --+ --+ ------+| ?30-59 ?| ?Stage three ?| ? Stage three ? + --+ --+ ------+| ?15-29 ?| ?Stage four ? | ? Stage four ?+ ---+ ---+ -------+| ?<15 (or dialysis) ? ?| ?Stage five ? | ? Stage five ?+ ---+ ---+ -------+ *Each stage assumes the associated GFR level has been in effect for at least three months. ?Stages 1 to 5, with or without kidney disease, indicate chronic kidney disease. Notes: Determination of stages one and two (with eGFR >59mL/min/1.73 m2) requires estimation of kidney damage for at least three months as defined by structural or functional abnormalities of the kidney, manifested by either:Pathological abnormalities or Markers of kidney damage (including abnormalities in the composition of the blood or urine or abnormalities in imaging tests). Lab Interpretation Abnormal (test code = 83010-1) [facility] [id number] 12:35:48 Test Item Value Reference Interpretation Comments Range TROPONIN I (test 0.032 ng/mL See_Comment [Automated code = 8963670976) message] The system which generated this result transmitted reference range : <=0.034. The reference range was not used to interpret this result as normal/abnormal . ROSLYN (test code = Reference (Normal) ROSLYN) Range (defined by the 99th percentile reference limit): <= 0.034 ng/mL Note: Cardiac troponin begins to rise 3-4 hours after the onset of ischemia. Repeat in 4-6 hours if the sample was drawn within 3-4 hours of the onset of the symptom and found normal. Diagnosis of myocardial injury is made with acute changes in cTn concentrations with at least one serial sample above the 99th percentile upper reference limit (URL), taken together with the patient's clinical presentation. Biotin has been reported to cause a negative bias, interpret results relative to patient's use of biotin. Lab Interpretation Normal (test code = 90078-0) [facility] [id number] 12:35:48 Test Item Value Reference Interpretation Comments Range TROPONIN I (test 0.032 ng/mL See_Comment [Automated code = 6146750912) message] The system which generated this result transmitted reference range : <=0.034. The reference range was not used to interpret this result as normal/abnormal . ROSLYN (test code = Reference (Normal) ROSLYN) Range (defined by the 99th percentile reference limit): <= 0.034 ng/mL Note: Cardiac troponin begins to rise 3-4 hours after the onset of ischemia. Repeat in 4-6 hours if the sample was drawn within 3-4 hours of the onset of the symptom and found normal. Diagnosis of myocardial injury is made with acute changes in cTn concentrations with at least one serial sample above the 99th percentile upper reference limit (URL), taken together with the patient's clinical presentation. Biotin has been reported to cause a negative bias, interpret results relative to patient's use of biotin. Lab Interpretation Normal (test code = 95123-9) [id number] 12:32:47 Test Item Value Reference Range Interpretation Comments NT-proBNP (test code 3830 pg/mL See_Comment H [Autom ated = 4541852693) message] The system which generated this result transmitted reference range : <=125. The reference range was not used to interpret this result as normal/abnormal . ROSLYN (test code = ROSLYN) Biotin has been reported to cause a negative bias, interpret results relative to patient's use of biotin. Lab Interpretation Abnormal (test code = 79743-9) [id number] 12:32:47 Test Item Value Reference Range Interpretation Comments NT-proBNP (test code 3830 pg/mL See_Comment H [Autom ated = 4841229137) message] The system which generated this result transmitted reference range : <=125. The reference range was not used to interpret this result as normal/abnormal . ROSLYN (test code = ROSLYN) Biotin has been reported to cause a negative bias, interpret results relative to patient's use of biotin. Lab Interpretation Abnormal (test code = 91892-2) [id number] 12:24:10 Test Item Value Reference Range Interpretation Comments MAGNESIUM (test code = 4357169237) 1.8 mg/dL 1.7-2.4 Lab Interpretation (test code = Normal 34858-6) [facility] Pkcux2129-72-13 12:24:10 Test Item Value Reference Range Interpretation Comments MAGNESIUM (test code = 7085733291) 1.8 mg/dL 1.7-2.4 Lab Interpretation (test code = Normal 33412-0) [facility] GLUCOSE (AUTOMATED)2022-07-21 04:19:16 Test Item Value Reference Range Interpretation Comments POCT GLU (test code = 9633619808) 169 mg/dL 70-110 H Lab Interpretation (test code = Abnormal 89814-4) [facility] GLUCOSE (AUTOMATED)2022-07-21 04:19:16 Test Item Value Reference Range Interpretation Comments POCT GLU (test code = 4346032810) 169 mg/dL 70-110 H Lab Interpretation (test code = Abnormal 05454-2) [facility] GLUCOSE (AUTOMATED)2022-07-21 02:03:28 Test Item Value Reference Range Interpretation Comments POCT GLU (test code = 2841582978) 242 mg/dL 70-110 H Lab Interpretation (test code = Abnormal 31415-6) [facility] GLUCOSE (AUTOMATED)2022-07-21 02:03:28 Test Item Value Reference Range Interpretation Comments POCT GLU (test code = 7434706300) 242 mg/dL 70-110 H Lab Interpretation (test code = Abnormal 55762-4) [facility] (A1C)2022-07-21 00:46:20 Test Item Value Reference Range Interpretation Comments HGB A1C (test code = 11.1 % 4-5.7 H 4548-4) ROSLYN (test code = ROSLYN) Reference RangesNormal: <5.7%Prediabetes: 5.7 - 6.4%Diabetes: > 6.5% Lab Interpretation (test Abnormal code = 02085-1) [facility]2022-07-21 00:46:20 Test Item Value Reference Range Interpretation Comments HGB A1C (test code = 11.1 % 4-5.7 H 4548-4) ROSLYN (test code = ROSLYN) Reference RangesNormal: <5.7%Prediabetes: 5.7 - 6.4%Diabetes: > 6.5% Lab Interpretation (test Abnormal code = 83609-5) [facility] GLUCOSE (AUTOMATED)2022-07-20 22:27:55 Test Item Value Reference Range Interpretation Comments POCT GLU (test code = 4718482638) 234 mg/dL 70-110 H Lab Interpretation (test code = Abnormal 12391-1) [facility] GLUCOSE (AUTOMATED)2022-07-20 22:27:55 Test Item Value Reference Range Interpretation Comments POCT GLU (test code = 1767983114) 234 mg/dL 70-110 H Lab Interpretation (test code = Abnormal 93931-6) [facility] [id number] 17:21:08 Test Item Value Reference Range Interpretation Comments NT-proBNP (test code 3250 pg/mL See_Comment H [Autom ated = 4425104748) message] The system which generated this result transmitted reference range : <=125. The reference range was not used to interpret this result as normal/abnormal . ROSLYN (test code = ROSLYN) Biotin has been reported to cause a negative bias, interpret results relative to patient's use of biotin. Lab Interpretation Abnormal (test code = 10014-6) [facility] [id number] 17:21:08 Test Item Value Reference Range Interpretation Comments NT-proBNP (test code 3250 pg/mL See_Comment H [Autom ated = 8826239232) message] The system which generated this result transmitted reference range : <=125. The reference range was not used to interpret this result as normal/abnormal . ROSLYN (test code = ROSLYN) Biotin has been reported to cause a negative bias, interpret results relative to patient's use of biotin. Lab Interpretation Abnormal (test code = 06808-0) General acute hospital WITH [id number] 17:16:49 Test Item Value Reference Range Interpretation Comments WBC (test code = See_Comment H [Automated 6690-2) message] The system which generated this result transmit artem reference range : 4.20 - 10.70 10*3/?L. The reference range was not used to interpret this result as normal/abnormal . RBC (test code = See_Comment H [Automated 849-8) message] The system which generated this result transmit artem reference range : 4.26 - 5.52 10*6/?L. The reference range was not used to interpret this result as normal/abnormal . HGB (test code = 18.0 g/dL 12.2-16.4 H 718-7) HCT (test code = 54.2 % 38.4-49.3 H 4544-3) MCV (test code = 89.3 fL 81.7-95.6 787-2) MCH (test code = 29.7 pg 26.1-32.7 785-6) MCHC (test code = 33.2 g/dL 31.2-35 786-4) RDW-SD (test code = 44.7 fL 38.5-51.6 21808-2) RDW-CV (test code = 13.7 % 12.1-15.4 788-0) PLT (test code = See_Comment [Automated 777-3) message] The system which generated this result transmit artem reference range : 150 - 328 10*3/ ?L. The reference range was not u sed to interpret th is result as normal/abnormal . MPV (test code = 12.5 fL 9.8-13 44189-4) NRBC/100 WBC (test See_Comment [Automat ed code = 4586441624) message] The system which generated this result transmit artem reference range : 0.0 - 10.0 /100 WBCs. The reference range was not used to interpret this result as normal/abnormal . NRBC x10^3 (test code See_Comment [Auto mated = 7380444814) message] The system which generated this result transmit artem reference range : 10*3/?L. The reference range was not used to interpret this result as normal/abnormal . GRAN MAT (NEUT) % 76.6 % (test code = 770-8) IMM GRAN % (test code 0.70 % = 6421893422) LYMPH % (test code = 13.8 % 736-9) MONO % (test code = 8.5 % 5905-5) EOS % (test code = 0.1 % 713-8) BASO % (test code = 0.3 % 706-2) GRAN MAT x10^3(ANC) 17.13 10*3/uL 1.99-6.95 H (test code = 1796811802) IMM GRAN x10^3 (test 0.16 10*3/uL 0-0.06 H code = 2567470063) LYMPH x10^3 (test code 3.10 10*3/uL 1.09-3.23 = 731-0) MONO x10^3 (test code 1.91 10*3/uL 0.36-1.02 H = 742-7) EOS x10^3 (test code = 0.06-0.53 L 711-2) BASO x10^3 (test code 0.07 10*3/uL 0.01-0.09 = 704-7) BANDS (test code = Increased A 6000156041) REACT LYMPHS (test Rare code = 4676349843) Lab Interpretation Abnormal (test code = 02953-3) General acute hospital WITH [id number] 17:16:49 Test Item Value Reference Range Interpretation Comments WBC (test code = See_Comment H [Automated 6690-2) message] The system which generated this result transmit artem reference range : 4.20 - 10.70 10*3/?L. The reference range was not used to interpret this result as normal/abnormal . RBC (test code = See_Comment H [Automated 789-8) message] The system which generated this result transmit artem reference range : 4.26 - 5.52 10*6/?L. The reference range was not used to interpret this result as normal/abnormal . HGB (test code = 18.0 g/dL 12.2-16.4 H 718-7) HCT (test code = 54.2 % 38.4-49.3 H 4544-3) MCV (test code = 89.3 fL 81.7-95.6 787-2) MCH (test code = 29.7 pg 26.1-32.7 785-6) MCHC (test code = 33.2 g/dL 31.2-35 786-4) RDW-SD (test code = 44.7 fL 38.5-51.6 45503-1) RDW-CV (test code = 13.7 % 12.1-15.4 788-0) PLT (test code = See_Comment [Automated 777-3) message] The system which generated this result transmit artem reference range : 150 - 328 10*3/ ?L. The reference range was not u sed to interpret th is result as normal/abnormal . MPV (test code = 12.5 fL 9.8-13 63212-7) NRBC/100 WBC (test See_Comment [Automat ed code = 3013376895) message] The system which generated this result transmit artem reference range : 0.0 - 10.0 /100 WBCs. The reference range was not used to interpret this result as normal/abnormal . NRBC x10^3 (test code See_Comment [Auto mated = 8781461835) message] The system which generated this result transmit artem reference range : 10*3/?L. The reference range was not used to interpret this result as normal/abnormal . GRAN MAT (NEUT) % 76.6 % (test code = 770-8) IMM GRAN % (test code 0.70 % = 9481649546) LYMPH % (test code = 13.8 % 736-9) MONO % (test code = 8.5 % 5905-5) EOS % (test code = 0.1 % 713-8) BASO % (test code = 0.3 % 706-2) GRAN MAT x10^3(ANC) 17.13 10*3/uL 1.99-6.95 H (test code = 9761349948) IMM GRAN x10^3 (test 0.16 10*3/uL 0-0.06 H code = 0180805512) LYMPH x10^3 (test code 3.10 10*3/uL 1.09-3.23 = 731-0) MONO x10^3 (test code 1.91 10*3/uL 0.36-1.02 H = 742-7) EOS x10^3 (test code = 0.06-0.53 L 711-2) BASO x10^3 (test code 0.07 10*3/uL 0.01-0.09 = 704-7) BANDS (test code = Increased A 8119591643) REACT LYMPHS (test Rare code = 0555316207) Lab Interpretation Abnormal (test code = 21433-8) [facility] [id number] 16:42:04 Test Item Value Reference Interpretation Comments Range TROPONIN I (test 0.025 ng/mL See_Comment [Automated code = 1673348160) message] The system which generated this result transmitted reference range : <=0.034. The reference range was not used to interpret this result as normal/abnormal . ROSLYN (test code = Reference (Normal) ROSLYN) Range (defined by the 99th percentile reference limit): <= 0.034 ng/mL Note: Cardiac troponin begins to rise 3-4 hours after the onset of ischemia. Repeat in 4-6 hours if the sample was drawn within 3-4 hours of the onset of the symptom and found normal. Diagnosis of myocardial injury is made with acute changes in cTn concentrations with at least one serial sample above the 99th percentile upper reference limit (URL), taken together with the patient's clinical presentation. Biotin has been reported to cause a negative bias, interpret results relative to patient's use of biotin. Lab Interpretation Normal (test code = 90959-9) [facility] CenterTROPONIN [id number] 16:42:04 Test Item Value Reference Interpretation Comments Range TROPONIN I (test 0.025 ng/mL See_Comment [Automated code = 7207217467) message] The system which generated this result transmitted reference range : <=0.034. The reference range was not used to interpret this result as normal/abnormal . ROSLYN (test code = Reference (Normal) ROSLYN) Range (defined by the 99th percentile reference limit): <= 0.034 ng/mL Note: Cardiac troponin begins to rise 3-4 hours after the onset of ischemia. Repeat in 4-6 hours if the sample was drawn within 3-4 hours of the onset of the symptom and found normal. Diagnosis of myocardial injury is made with acute changes in cTn concentrations with at least one serial sample above the 99th percentile upper reference limit (URL), taken together with the patient's clinical presentation. Biotin has been reported to cause a negative bias, interpret results relative to patient's use of biotin. Lab Interpretation Normal (test code = 81295-1) [facility]eraPTT20[facility] 16:31:19 Test Item Value Reference Range Interpretation Comments APTT Patient (test See_Comment [Automat ed code = 3173-2) message] The system which generated this result transmitted reference range : 23 - 38 Seconds . The reference range was not used to interpr et this result as normal/abnormal . ROSLYN (test code = ROSLYN) The [facility] patient population mean normal value for aPTT is 30 seconds. Lab Interpretation Normal (test code = 42622-8) [facility] 16:31:19 Test Item Value Reference Range Interpretation Comments APTT Patient (test See_Comment [Automat ed code = 3173-2) message] The system which generated this result transmitted reference range : 23 - 38 Seconds . The reference range was not used to interpr et this result as normal/abnormal . ROSLNY (test code = ROSLYN) The [facility] patient population mean normal value for aPTT is 30 seconds. Lab Interpretation Normal (test code = 90832-8) [facility]. METABOLIC PANEL (78462)2022-07-20 16:30:19 Test Item Value Reference Range Interpretation Comments NA (test code = 133 mmol/L 135-145 L 1977064765) K (test code = 5.3 mmol/L 3.5-5 H 4988639136) CL (test code = 98 mmol/L 98-108 1936304185) CO2 TOTAL (test code = 27 mmol/L 23-31 2750381696) AGAP (test code = 2-16 5537296082) BUN (test code = 13 mg/dL 7-23 4762365332) GLUCOSE (test code = 273 mg/dL 70-110 H 2362183769) CREATININE (test code = 0.62 mg/dL 0.6-1.25 9735205542) TOTAL BILI (test code = 2.1 mg/dL 0.1-1.1 H 9228285181) CALCIUM (test code = 8.6 mg/dL 8.6-10.6 5811294299) T PROTEIN (test code = 7.3 g/dL 6.3-8.2 2640115306) ALBUMIN (test code = 4.4 g/dL 3.5-5 4204400633) ALK PHOS (test code = 61 U/L 34-122 1316383037) ALTv (test code = 29 U/L 5-50 1742-6) AST(SGOT) (test code = 36 U/L 13-40 7591574265) eGFR (test code = mL/min/1.73m2 3062548589) ROSLYN (test code = ROSLYN) Association of Glomerular Filtration Rate (GFR) and Staging of Kidney Disease* + --+ --+ ------+| GFR (mL/min/1.73 m2) ?| With Kidney Damage ?| ?Without Kidney Damage+ --------+ --------+ +| ?>90 ?| ?Stage one ?| ? Normal ?+ ---+ ---+ -------+| ?60-89 ?| ?Stage two ?| ? Decreased GFR ? + --+ --+ ------+| ?30-59 ?| ?Stage three ?| ? Stage three ? + --+ --+ ------+| ?15-29 ?| ?Stage four ? | ? Stage four ?+ ---+ ---+ -------+| ?<15 (or dialysis) ? ?| ?Stage five ? | ? Stage five ?+ ---+ ---+ -------+ *Each stage assumes the associated GFR level has been in effect for at least three months. ?Stages 1 to 5, with or without kidney disease, indicate chronic kidney disease. Notes: Determination of stages one and two (with eGFR >59mL/min/1.73 m2) requires estimation of kidney damage for at least three months as defined by structural or functional abnormalities of the kidney, manifested by either:Pathological abnormalities or Markers of kidney damage (including abnormalities in the composition of the blood or urine or abnormalities in imaging tests). Lab Interpretation Abnormal (test code = 61932-2) [facility]. METABOLIC PANEL (07571)2022-07-20 16:30:19 Test Item Value Reference Range Interpretation Comments NA (test code = 133 mmol/L 135-145 L 9192225403) K (test code = 5.3 mmol/L 3.5-5 H 7052030394) CL (test code = 98 mmol/L 98-108 5356386362) CO2 TOTAL (test code = 27 mmol/L 23-31 5315802051) AGAP (test code = 2-16 1863174307) BUN (test code = 13 mg/dL 7-23 2282704986) GLUCOSE (test code = 273 mg/dL 70-110 H 0693702652) CREATININE (test code = 0.62 mg/dL 0.6-1.25 3311023365) TOTAL BILI (test code = 2.1 mg/dL 0.1-1.1 H 1132963580) CALCIUM (test code = 8.6 mg/dL 8.6-10.6 5345626917) T PROTEIN (test code = 7.3 g/dL 6.3-8.2 8078179708) ALBUMIN (test code = 4.4 g/dL 3.5-5 3617895092) ALK PHOS (test code = 61 U/L 34-122 7522358778) ALTv (test code = 29 U/L 5-50 1742-6) AST(SGOT) (test code = 36 U/L 13-40 6189409944) eGFR (test code = mL/min/1.73m2 4015804576) ROSLYN (test code = ROSLYN) Association of Glomerular Filtration Rate (GFR) and Staging of Kidney Disease* + --+ --+ ------+| GFR (mL/min/1.73 m2) ?| With Kidney Damage ?| ?Without Kidney Damage+ --------+ --------+ +| ?>90 ?| ?Stage one ?| ? Normal ?+ ---+ ---+ -------+| ?60-89 ?| ?Stage two ?| ? Decreased GFR ? + --+ --+ ------+| ?30-59 ?| ?Stage three ?| ? Stage three ? + --+ --+ ------+| ?15-29 ?| ?Stage four ? | ? Stage four ?+ ---+ ---+ -------+| ?<15 (or dialysis) ? ?| ?Stage five ? | ? Stage five ?+ ---+ ---+ -------+ *Each stage assumes the associated GFR level has been in effect for at least three months. ?Stages 1 to 5, with or without kidney disease, indicate chronic kidney disease. Notes: Determination of stages one and two (with eGFR >59mL/min/1.73 m2) requires estimation of kidney damage for at least three months as defined by structural or functional abnormalities of the kidney, manifested by either:Pathological abnormalities or Markers of kidney damage (including abnormalities in the composition of the blood or urine or abnormalities in imaging tests). Lab Interpretation Abnormal (test code = 83299-9) [facility] CenterPROTHROM[facility] / [id number] 16:29:23 Test Item Value Reference Range Interpretation Comments PROTIME PATIENT (test See_Comment [Auto mated message] code = 5964-2) The system [employer] generated this result transmitted ref erence range: 12.0 - 1 4.7 Seconds. The re ference range was not u sed to interpret this result as normal/abnor mal. INR (test code = 6301-6) Nor mal INR <1.1; Warfarin Therap eutic range 2.0 to 3. 0 or 2.5 to 3.5, dep ending upon the indica tions. Lab Interpretation (test Normal code = 59887-0) [facility] CenterPROT[facility] / [id number] 16:29:23 Test Item Value Reference Range Interpretation Comments PROTIME PATIENT (test See_Comment [Auto mated message] code = 5964-2) The system [employer] generated this result transmitted ref erence range: 12.0 - 1 4.7 Seconds. The re ference range was not u sed to interpret this result as normal/abnor mal. INR (test code = 6301-6) Nor mal INR <1.1; Warfarin Therap eutic range 2.0 to 3. 0 or 2.5 to 3.5, dep ending upon the indica tions. Lab Interpretation (test Normal code = 14033-5) [facility]"
[2022-08-10 17:14] LABS: Absolute Lymphocytes (CBC) 2.5 K/uL (0.7-4.9); Hematocrit 45.9 % (39.6-49.0); Lymphocytes % 17.5 % (15.3-44.8); MCV 89.8 fL (80-100); RBC Red Blood Cell Count 5.12 M/uL (4.33-5.43)
[2022-08-10] MEDS ORDERED: NA CHLORIDE 0.9% 500 ML ONE (17:23)
[2022-08-10] MEDS ORDERED: METOPROLOL TARTRATE 5 MG/5 ML INJ IV ONE (17:30)
[2022-08-10 17:37] LABS: Potassium 3.5 mmol/L (3.5-5.1); Troponin High Sensitivity 18.5 pg/mL (<58.9)
--- NOTE | 2022-08-10 18:10 | RAD REPORT ---
EXAM DESCRIPTION: RAD - Chest Single View - 08/10/2022 5:45 pm CLINICAL HISTORY: CHEST PAIN COMPARISON: Portable 07/16/2022 TECHNIQUE: AP portable chest image was obtained 08/10/2022 5:45 pm . FINDINGS: Chronic interstitial opacification present matching comparison. No new mass or consolidati on seen. Heart size is prominent but stable. Vasculature within normal limits. No measurable pleural effusion and no pneumothorax. No acute bony abnormality seen. No acute aortic findings suspected. IMPRESSION: No acute cardiopulmonary process. No significant change from comparison study.
[2022-08-10] MEDS ORDERED: D5W 100 ML IV ONE (18:23)
[2022-08-10] MEDS ORDERED: AMIODARONE HCL 150 MG/3 ML INJ IV ONE (18:23)
[2022-08-10] MEDS ORDERED: AMIODARONE IN DEXTROSE,ISO-OSM 360 MG/200 ML BAG IV ONE (18:23)
[2022-08-10 18:55] LABS: Protime INR 1.2
--- NOTE | 2022-08-10 19:04 | EDPHYS ---
Physician Documentation [facility] Name: José Pat Age: 72 yrs Sex: Male : 1950 Arrival Date: 08/10/2022 Time: 16:47 Bed 7 Private MD: ED Physician Maribel Zabala HPI: 08/10 17:31 This 72 yrs old Male presents to ER via EMS with complaints of Chest Pain. sd2 17:31 72-year-old male with a history of A. fib, CHF, COPD and insulin-dependent diabetes sd2 presents via EMS with chief complaint of midsternal chest pain. He reports the pain is nonradiating and started approximately an hour prior to arrival when he was walking in his house and his legs gave out from underneath him. He does endorse some mild shortness of breath but denies any fevers, cough or recent illness. He has not had any nausea, vomiting, diaphoresis or diarrhea. He reports a history of an GA in the past but does not have any stents in place. He reports he has been compliant with his Eliquis but is unsure what other medications he is on for A. fib. We did contact the patient's pharmacy and they report he is on insulin and Flomax but they do not report any known rate controlling medications.. Historical: - Allergies: 16:50 No Known Allergies; ld1 - Home Meds: 16:52 Eliquis oral [Active]; ld1 17:25 Insulin: Lantus Sub-Q [Active]; tamsulosin 0.4 mg oral cap [Active]; vg1 - PMHx: 16:50 Atrial fibrillation; CHF; COPD; Diabetes - IDDM; ld1 - Immunization history:: Adult Immunizations up to date. - Social history:: Smoking status: Patient reports the use of cigarette tobacco products, smokes one-half pack cigarettes per day, Patient/guardian denies using alcohol. ROS: 17:31 Constitutional: Negative for fever, chills, and weight loss, Eyes: Negative for injury, sd2 pain, redness, and discharge. 17:31 Abdomen/GI: Negative for abdominal pain, nausea, vomiting, diarrhea. MS/Extremity: Negative for injury and deformity, Skin: Negative for injury, rash, and discoloration, Neuro: Negative for headache, numbness and tingling. 17:31 Cardiovascular: Positive for chest pain, Negative for orthopnea, palpitations. 17:31 Respiratory: Positive for shortness of breath, Negative for cough, wheezing. Exam: 17:31 Constitutional: This is a well developed, well nourished patient who is awake, alert, sd2 and in no acute distress. Head/Face: Normocephalic, atraumatic. Eyes: EOMI, normal conjunctiva bilaterally Chest/axilla: Normal chest wall appearance and motion. Nontender with no deformity. Cardiovascular: Tachycardic rate and regular rhythm with a normal S1 and S2. No gallops, murmurs, or rubs. 2+ distal pulses. Respiratory: Lungs have equal breath sounds bilaterally, clear to auscultation and percussion. No rales, rhonchi or wheezes noted. No increased work of breathing, no retractions or nasal flaring. Abdomen/GI: Soft, non-tender, with normal bowel sounds. No guarding or rebound. No evidence of tenderness throughout. Skin: Warm, dry with normal turgor. Normal color with no rashes, no lesions, and no evidence of cellulitis. MS/ Extremity: Pulses equal, no cyanosis. Neurovascular intact. Full, normal range of motion. Ambulatory without difficulty. Psych: Awake, alert, with orientation to person, place and time. Behavior, mood, and affect are within normal limits. 17:31 ECG was reviewed by the Attending Physician. Sinus tachycardia vs. 2:1 atrial flutter, rate 147, RBBB present, no STEMI criteria Vital Signs: 16:49 BP 136 / 72; Pulse 145; Resp 18; Pulse Ox 93% on R/A; Pain 4/10; ld1 16:55 BP 109 / 83; Pulse 147; Resp 20; Temp 98.6(TE); Pulse Ox 94% on R/A; vg1 17:15 BP 102 / 77; Pulse 142; Resp 21; Pulse Ox 97% on 2 lpm NC; tp1 18:32 BP 100 / 77; Pulse 140; Resp 20; Pulse Ox 96% on R/A; tp1 18:42 BP 105 / 78; Pulse 132; tp1 19:40 BP 104 / 77; Pulse 102; Resp 24; Pulse Ox 98% on NC; ke1 MDM: 16:55 Patient medically screened. sd2 19:01 Data reviewed: vital signs, nurses notes, lab test result(s), EKG, radiologic studies. sd2 Counseling: I had a detailed discussion with the patient and/or guardian regarding: the historical points, exam findings, and any diagnostic results supporting the discharge/admit diagnosis, lab results, radiology results, the need for further work-up and treatment in the hospital. 08/10 16:48 Order name: Basic Metabolic Panel 1 08/10 16:48 Order name: CBC with Diff ld08/10 16:48 Order name: Troponin HS ld08/10 17:23 Order name: CBC with Automated Diff; Complete Time: 17:56 EDMS 08/10 17:23 Order name: Hepatic Function sd2 08/10 17:23 Order name: BNP sd2 08/10 17:23 Order name: PT-INR ne2 08/10 17:23 Order name: Ptt, Activated 2 08/10 17:37 Order name: Basic Metabolic Panel; Complete Time: 17:56 EDMS 08/10 17:37 Order name: Troponin High Sensitivity; Complete Time: 17:56 EDMS 08/10 18:56 Order name: Protime (+INR); Complete Time: 18:59 EDMS 08/10 18:56 Order name: PTT, Activated Partial Thromb; Complete Time: 18:59 EDMS 08/10 19:09 Order name: Liver (Hepatic) Function EDMS 08/10 19:09 Order name: NT PRO-BNP EDNJ 08/10 16:48 Order name: XRAY Chest (1 view) [facility] 08/10 16:48 Order name: EKG; Complete Time: 16:48 ld08/10 16:48 Order name: Cardiac monitoring; Complete Time: 16:55 ld08/10 16:48 Order name: EKG - Nurse/Tech; Complete Time: 16:48 ld08/10 16:48 Order name: IV Saline Lock; Complete Time: 16:52 ld08/10 16:48 Order name: Labs collected and sent; Complete Time: 16:55 ld08/10 16:48 Order name: O2 Per Protocol; Complete Time: 16:55 08/10 16:48 Order name: O2 Sat Monitoring; Complete Time: 16:55 08/10 18:11 Order name: RAD; Complete Time: 18:22 EDMS 08/10 19:34 Order name: SARS-COV-2 Antigen Rapid tw5 08/10 19:59 Order name: SARS-COV-2 Antigen Rapid EDNJ Administered Medications: 17:29 Drug: NS 0.9% 500 ml Route: IV; Rate: bolus; Site: left forearm; tp1 17:49 Follow up: IV Status: Completed infusion; IV Intake: 500ml vg1 18:11 Not Given (Physician Discretion): Metoprolol 2.5 mg IVP once vg1 18:31 Drug: amiodarone 150 mg Volume: 100 ml; Route: IVPB; Infused Over: 10 mins; Site: left tp1 forearm; 18:42 Follow up: BP 105 / 78; Pulse 132 bpm; IV Status: Completed infusion; IV Intake: 100ml tp1 18:47 Drug: amiodarone 900 mg, D5W 500 ml Route: IVPB; Rate: 1 mg/min; Site: left forearm; tp1 Disposition Summary: 08/10/22 19:02 Hospitalization Ordered Hospitalization Status: Inpatient Admission sd2 Provider: Dwaine Rao sd2 Location: Intensive Care Unit sd2 Condition: Stable sd2 Problem: an acute exacerbation sd2 Symptoms: have improved sd2 Bed/Room [facility]: [facility] Room Assignment: 7-(08/10/22 20:15) [facility] Diagnosis - Unspecified atrial flutter sd2 - Chest pain, unspecified sd2 Forms: - Medication Reconciliation Form sd2 - SBAR form sd2 Signatures: Dispatcher [employer] Marielena Johns RN RN cg Garcia, Victoria, RN RN vg1 Melania Singer RN RN ana luisa1 Maday Vasquez RN RN tp1 Natalie Sarabia RN RN vc1 Maribel Zabala MD MD sd2 Corrections: (The following items were deleted from the chart) 20:02 19:02 sd2 20:15 20:02 1- [facility]
--- NOTE | 2022-08-10 19:04 | ER ---
Nurse's Notes [facility] Name: José Pat Age: 72 yrs Sex: Male : 1950 Arrival Date: 08/10/2022 Time: 16:47 Bed 7 Private MD: Diagnosis: Unspecified atrial flutter;Chest pain, unspecified Presentation: 08/10 16:48 Chief complaint: EMS states: toned out to pt home - chest pain began at 0400 this ld1 morning. Dull pain that radiates down towards legs. Care prior to arrival: Medication(s) given: ASA, 325 mg. 16:49 Coronavirus screen: At this time, the client does not indicate any symptoms associated ld1 with coronavirus-19. Ebola Screen: No symptoms or risks identified at this time. Risk Assessment: Do you want to hurt yourself or someone else? Patient reports no desire to harm self or others. Onset of symptoms was August 10, 2022. 16:49 Method Of Arrival: EMS: [facility] ld1 16:51 Acuity: KIT 2 jl7 Triage Assessment: 16:50 General: Appears in no apparent distress. comfortable, Behavior is calm, cooperative, ld1 appropriate for age. Pain: Complains of pain in chest Pain does not radiate. Pain currently is 4 out of 10 on a pain scale. Quality of pain is described as throbbing, Pain began 0400 this morning. EENT: No signs and/or symptoms were reported regarding the EENT system. Neuro: Level of Consciousness is awake, alert, obeys commands, Oriented to person, place, time, situation. Cardiovascular: Capillary refill < 3 seconds Patient's skin is warm and dry. Rhythm is sinus tachycardia. Respiratory: Airway is patent Respiratory effort is even, unlabored. GI: Abdomen is flat, non-distended. : No signs and/or symptoms were reported regarding the genitourinary system. Derm: No signs and/or symptoms reported regarding the dermatologic system. Musculoskeletal: No signs and/or symptoms reported regarding the musculoskeletal system. Historical: - Allergies: 16:50 No Known Allergies; ld1 - Home Meds: 16:52 Eliquis oral [Active]; ld1 17:25 Insulin: Lantus Sub-Q [Active]; tamsulosin 0.4 mg oral cap [Active]; vg1 - PMHx: 16:50 Atrial fibrillation; CHF; COPD; Diabetes - IDDM; ld1 - Immunization history:: Adult Immunizations up to date. - Social history:: Smoking status: Patient reports the use of cigarette tobacco products, smokes one-half pack cigarettes per day, Patient/guardian denies using alcohol. Screenin:49 Abuse screen: Denies threats or abuse. Denies injuries from another. Nutritional tp1 screening: No deficits noted. Tuberculosis screening: No symptoms or risk factors identified. Fall Risk No fall in past 12 months (0 pts). No secondary diagnosis (0 pts). IV access (20 points). Ambulatory Aid- None/Bed Rest/Nurse Assist (0 pts). Gait- Normal/Bed Rest/Wheelchair (0 pts) Mental Status- Oriented to own ability (0 pts). Assessment: 17:08 General: Appears in no apparent distress. uncomfortable, Behavior is cooperative, vg1 anxious. Pain: Complains of pain in chest Pain radiates to back, right arm, left arm, right leg, left leg and neck Pain currently is 4 out of 10 on a pain scale. Pain began this morning around 0400. Neuro: Level of Consciousness is awake, alert, obeys commands, Oriented to person, place, time, situation. Cardiovascular: Patient's skin is warm and dry. Pulses are palpable in right radial artery and left radial artery Chest pain. Respiratory: Reports shortness of breath at rest on exertion Airway is patent Respiratory effort is even, labored. GI: No signs and/or symptoms were reported involving the gastrointestinal system. : No signs and/or symptoms were reported regarding the genitourinary system. EENT: No signs and/or symptoms were reported regarding the EENT system. Derm: Skin is pink, warm \T\ dry. Musculoskeletal: Circulation, motion, and sensation intact. 17:24 Reassessment: Spoke with [facility] pharmacist in [place], [place] for an updated medication vg1 list, reported Eliquis 5 mg, Lanuts and Tamsulosin 0.4mg ; provider notified of pt med list. 17:51 Reassessment: Pt stated uses 4.5 L of O2 at home; pt O2 is 92 % RA, placed pt on 2 L NC vg1 at 97% ; provider notified. 18:20 Reassessment: Patient appears in no apparent distress at this time. No changes from tp1 previously documented assessment. Patient is alert, oriented x 3, equal unlabored respirations, skin warm/dry/pink. denies pain or SOB. 18:51 Reassessment: sandwich and oral fluid provided. tp1 20:26 Reassessment: Patient and/or family updated on plan of care and expected duration. Pain vc1 level reassessed. Patient is alert, oriented x 3, equal unlabored respirations, skin warm/dry/pink. Patient states feeling better. Patient states symptoms have improved. Vital Signs: 16:49 BP 136 / 72; Pulse 145; Resp 18; Pulse Ox 93% on R/A; Pain 4/10; ld1 16:55 BP 109 / 83; Pulse 147; Resp 20; Temp 98.6(TE); Pulse Ox 94% on R/A; vg1 17:15 BP 102 / 77; Pulse 142; Resp 21; Pulse Ox 97% on 2 lpm NC; tp1 18:32 BP 100 / 77; Pulse 140; Resp 20; Pulse Ox 96% on R/A; tp1 18:42 BP 105 / 78; Pulse 132; tp1 19:40 BP 104 / 77; Pulse 102; Resp 24; Pulse Ox 98% on NC; ke1 ED Course: 16:47 Patient arrived in ED. ld1 16:49 Maintain EMS IV. Dressing intact. Good blood return noted. Site clean \T\ dry. Gauge \T\ ld 1 site: 20G LAC. Patient maintains SpO2 saturation greater than 95% on room air. 16:50 Triage completed. ld1 16:50 Arm band placed on right wrist. EKG completed in triage. Results shown to MD. ld1 16:52 Maday Vasquez, RN is Primary Nurse. tp1 16:52 Patient has correct armband on for positive identification. Placed in gown. Bed in low tp1 position. Call light in reach. Side rails up X 1. 16:52 Client placed on continuous cardiac and pulse oximetry monitoring. NIBP monitoring tp1 applied. 16:54 Maribel Zabala MD is Attending Physician. sd2 16:59 Basic Metabolic Panel Sent. zm 16:59 CBC with Diff Sent. zm 16:59 Troponin HS Sent. zm 19:02 Dwaine Rao MD is Hospitalizing Provider. sd2 20:05 role handed off by Marsha Ervin RN 20:05 Primary Nurse role handed off by Maday Vasquez RN 20:09 Natalie Sarabia, MADELEINE is Primary Nurse. vc1 20:24 No provider procedures requiring assistance completed. Patient admitted, IV remains in vc1 place. Administered Medications: 17:29 Drug: NS 0.9% 500 ml Route: IV; Rate: bolus; Site: left forearm; tp1 17:49 Follow up: IV Status: Completed infusion; IV Intake: 500ml vg1 18:11 Not Given (Physician Discretion): Metoprolol 2.5 mg IVP once vg1 18:31 Drug: amiodarone 150 mg Volume: 100 ml; Route: IVPB; Infused Over: 10 mins; Site: left tp1 forearm; 18:42 Follow up: BP 105 / 78; Pulse 132 bpm; IV Status: Completed infusion; IV Intake: 100ml tp1 18:47 Drug: amiodarone 900 mg, D5W 500 ml Route: IVPB; Rate: 1 mg/min; Site: left forearm; tp1 Medication: 20:26 VIS not applicable for this client. vc1 Intake: 17:49 IV: 500ml; Total: 500ml. vg1 18:42 IV: 100ml; Total: 600ml. tp1 Outcome: 19:02 Decision to Hospitalize by Provider. sd2 20:24 Admitted to ICU accompanied by nurse, via stretcher, room -7, with oxygen, on monitor, vc1 with chart, Report called to MADELEINE Teran 20:24 Condition: good 20:24 Instructed on the need for admit. 20:26 Patient left the ED. vc1 Signatures: Sandy Brenner RN RN jl7 Marsha Ervin RN RN vg1 Melania Singer RN RN ana luisa1 Carrie Ramirez Maday Vasquez RN RN tp1 Natalie Sarabia RN RN vc1 Taniya Corrales RN RN ke1 Ethel Gómez Stephanie, MD MD sd2 Corrections: (The following items were deleted from the chart) 16:53 16:49 Acuity: KIT 3 ld1 vg1 17:51 17:15 BP 102 / 77; Pulse 142bpm; Resp 21bpm; Pulse Ox 97% RA; tp1 tp1 18:32 18:20 Reassessment: Patient appears in no apparent distress at this time. No changes tp1 from previously documented assessment. Patient is alert, oriented x 3, equal unlabored respirations, skin warm/dry/pink. tp1
[2022-08-10 19:09] LABS: Albumin 3.2 g/dL (3.4-5.0); Bilirubin Direct 0.3 mg/dL (0-0.2); Protein, Total 6.9 g/dL (6.4-8.2)
[2022-08-10 19:59] LABS: SARS-CoV-2 Antigen Rapid Res Negative (Negative)
--- NOTE | 2022-08-10 19:59 | P.HP ---
Certification for Inpatient Patient admitted to: Inpatient With expected LOS: >2 Midnights Patient will require the following post-hospital care: None Practitioner: I am a practitioner with admitting privileges, knowledge of patient current condition, hospital course, and medical plan of care. Services: Services provided to patient in accordance with Admission requirements found in Title 42 Section 412.3 of the Code of Federal Regulations Patient History Date of Service: 08/10/22 Primary Care Provider: None Reason for admission: Atrial flutter, RVR History of Present Illness: 72-year-old male history of chronic diastolic congestive heart failure, atrial fibrillation on chronic anticoagulation, diabetes mellitus type 2insulin- dependent, COPD, tobacco abuse presents emergency department for chest pain and shortness of breath. He describes a pressure-like substernal chest painnonradiating. Upon arrival to the emergency department he is found to be in suspected 2-1 atrial flutter with a rate of 145. His blood pressure was soft around 100 systolic that reason ED provider started patient on amiodarone drip. His rate is much better this time currently 102. His labs were significant for white blood cell count 14.3 glucose 247 BNP 2393 high-sensitivity troponin initially 18.5. ED provider wishes to admit for further evaluation and management of atrial flutter/rapid ventricular response. Allergies No Known Allergies Allergy (Verified 06/10/22 22:17) Home Medications: Albuterol Inhaler [Ventolin Inhaler*] 2 puff IH Q6H PRN #1 hfa.aer.ad 03/04/21 Albuterol Neb [Proventil 0.083% Neb Soln] 2.5 mg NEB [id number] #60 amp 06/08/22 Nebulizer Accessories [Aeroneb Go] 1 each MC DAILY #1 06/08/22 Nebulizer [Aeroneb Go Nebulizer] 1 each MC DAILY #1 06/08/22 ALPRAZolam [Xanax*] 0.25 mg PO TID PRN #30 tab 06/19/22 Apixaban [Eliquis] 5 mg PO BID #60 tablet 07/04/22 Aspirin [Aspirin EC 81 MG] 81 mg PO DAILY #30 tablet. 07/04/22 Benzonatate [Tessalon Perle*] 200 mg PO TID PRN #30 cap 08/25/22 Furosemide [Lasix] 20 mg PO DAILY 30 Days #30 tab 07/04/22 Insulin Glargine,Hum.rec.anlog [Lantus Solostar] 15 unit SQ DAILY 30 Days #2 kit 07/04/22 Ipratropium Neb [Atrovent*] 0.5 mg NEB [id number] #60 amp 07/04/22 Melatonin 10 mg PO BEDTIME PRN PRN #14 tablet 07/04/22 Metformin HCl [Glucophage*] 500 mg PO BIDWM 30 Days #60 tab 07/04/22 Sotalol HCl [Betapace*] 80 mg PO BID 6AM 6PM #60 tab 07/04/22 Tamsulosin [Flomax*] 0.4 mg PO DAILY #30 cap 07/04/22 predniSONE [Prednisone*] 20 mg PO BID #20 tab 07/04/22 - Past Medical/Surgical History Diabetic: Yes -: DIVERTICULITIS -: COPD -: A. fib -: Diastolic CHF -: Diabetes mellitus type 2 -: Hypertension -: Hyperlipidemia -: ABD SX-INFECTIONS POCKET OF ABD ORGANS-UNABLE TO SPECIFY AREAS Psychosocial/ Personal History: Patient lives at home with his - Family History Father Notes: mesothelioma Mother -: Heart disease, Hypertension - Social History Smoking Status: Current every day smoker Alcohol use: No CD- Drugs: No Caffeine use: No Place of Residence: Home Review of Systems 10-point ROS is otherwise unremarkable Respiratory: Shortness of Breath Cardiovascular: Chest Pain, Palpitations, As per HPI Physical Examination - Physical Exam General: Alert, In no apparent distress, Oriented x3 HEENT: Atraumatic, PERRLA, Mucous membr. moist/pink, EOMI, Sclerae nonicteric Neck: Supple, 2+ carotid pulse no bruit, No LAD, Without JVD or thyroid abnormality Respiratory: Clear to auscultation bilaterally, Normal air movement Cardiovascular: Normal S1 S2, Irregular heart rate/rhythm Capillary refill: <2 Seconds Gastrointestinal: Normal bowel sounds, No tenderness Musculoskeletal: No tenderness Integumentary: No rashes Neurological: Normal speech, Normal strength at 5/5 x4 extr, Normal tone, Normal affect - Studies Laboratory Data (last 24 hrs) 08/10/22 18:28: PT 13.3 H, INR 1.20, APTT 27.4 08/10/22 18:28: Total Bilirubin 1.0, AST 11 L, ALT 23, Alkaline Phosphatase 55 08/10/22 16:56: WBC 14.30 H, Hgb 15.4, Hct 45.9, Plt Count 217 08/10/22 16:56: Sodium 137, Potassium 3.5, BUN 6 L, Creatinine 1.00, Glucose 247 H Assessment and Plan - Plan Assessment: Atrial flutter/Afib with RVR-noncompliance Chronic diastolic congestive heart failure Diabetes mellitus type 2insulin-dependent COPD on home O24.5 L Hypertension Tobacco abuse Plan: Atrial flutter/Afib with RVR-noncompliance: Pt placed on amio drip in ED responding well, Currently AFib with rate 100. Pt had cardioversion in May 2022 and was started on sotalol by cardiology but he apparently did not fill it. Discussed with cardiology this evening, will continue amio drip in ICU for tonight. Chronic diastolic congestive heart failure: Obtain and continue home meds, does not appear overloaded at this time. Diabetes mellitus type 2insulin-dependent: ACHS accucheck/SSI COPD on home O24.5 L: Continue supplemental 02, home meds, no active exacerbation. Hypertension: Continue home meds. Tobacco abuse: Counselled on need for cessation, nicoderm patch ordered. DVT PPX:Continue eliquis Code status:Full Discharge Plan: Home Plan to discharge in: 48 Hours - Advance Directives Does patient have a Living Will: No Does patient have a Durable POA for Healthcare: No - Code Status/Comfort Care Code Status Assessed: Yes (Full code) Critical Care: No Time Spent Managing Pts Care (In Minutes): 70
[2022-08-10] MEDS ORDERED: ONDANSETRON 4 MG/2 ML VIAL IV PRN (20:24)
[2022-08-10] MEDS ORDERED: AMIODARONE IN DEXTROSE,ISO-OSM 360 MG/200 ML BAG IV SCH (20:45)
[2022-08-10] MEDS: INSULIN -REGULAR HUMAN 50 UNIT/0.5 ML ML SQ SCH (21:00)
[2022-08-10] MEDS ORDERED: NICOTINE 14 MG/PAT TD SCH (21:00)
[2022-08-10] MEDS: APIXABAN 5 MG TABLET PO SCH (21:07)
[2022-08-10 21:33] VITALS: BMI 33.0
[2022-08-11 05:40] LABS: Absolute Lymphocytes (CBC) 2.6 K/uL (0.7-4.9); Hematocrit 41.7 % (39.6-49.0); Lymphocytes % 20.6 % (15.3-44.8); MCV 89.2 fL (80-100); MPV 10.1 fL (7.6-11.3); RBC Red Blood Cell Count 4.67 M/uL (4.33-5.43)
[2022-08-11 06:06] LABS: Albumin 2.9 g/dL (3.4-5.0); Bilirubin Total 0.8 mg/dL (0.2-1.0); Magnesium 1.7 mg/dL (1.8-2.4); Potassium 3.3 mmol/L (3.5-5.1); Protein, Total 6.5 g/dL (6.4-8.2); Thyroid Stimulating Hormone 1.24 uIU/mL (0.360-3.740); Troponin High Sensitivity 22.3 pg/mL (<58.9)
--- NOTE | 2022-08-11 06:12 | P.PN ---
Date of Service: 08/11/22 Subjective: Feels slightly improved, heart rate slightly decreased, continues in atrial fibrillation 120s Denies any new or worsening symptoms ROS: 10 point ROS as noted above, otherwise negative Physical exam GEN: Alert, oriented, NAD HEENT: Normal conjunctiva, sclera anicteric CV: Irregularly irregular rhythm, Pulm: Nonlabored respirations on room air ABD: Soft, nontender, nondistended MSK: No joint tenderness Integumentary: No rashes Neuro: Normal speech, normal affect Problem List Atrial flutter/Afib with RVR-noncompliance Chronic diastolic congestive heart failure Diabetes mellitus type 2insulin-dependent COPD on home O24.5 L Hypertension Tobacco abuse Atrial flutter/Afib with RVR-noncompliance Continue amiodarone drip started in ED, increased rate to 1 per cardiology Monitor blood pressure closely, remains remained Chronic diastolic CHF, confirm home meds and continue Insulin sliding scale, adjust insulin as needed Supplemental oxygen as needed Nicotine patch ordered If patient's arrhythmia does not improve, cardiology has tentative plans to shock the patient tomorrow N.p.o. after midnight VTE: Eliquis Code: Full Dispo: Home, 1-2 days Time Spent Managing Pts Care (In Minutes): 35
[2022-08-11] MEDS ORDERED: POTASSIUM 25 MEQ EFFERV TAB PO ONE (07:00)
[2022-08-11] MEDS ORDERED: MAGNESIUM SULFATE 1 gm IVPB 1 GM/100 ML BAG IV ONE (07:00)
[2022-08-11] MEDS: INSULIN -REGULAR HUMAN 50 UNIT/0.5 ML ML SQ SCH ×4 (07:30→20:26)
[2022-08-11] MEDS ORDERED: DIGOXIN 0.25 MG/ML AMP IV ONE (08:15)
[2022-08-11] MEDS: APIXABAN 5 MG TABLET PO SCH ×2 (08:22→20:34)
[2022-08-11] MEDS ORDERED: TRAMADOL HCL 50 MG TAB PO PRN (08:35)
[2022-08-11] MEDS ORDERED: INFLUENZA VACCINE (for 6+ mo) 0.5 ML DOSE IMVAC ONE (09:00)
[2022-08-11] MEDS: AMIODARONE HCL 900 MG in Dextrose 5%-Water 482 ML IV SCH (10:00)
--- NOTE | 2022-08-11 10:10 | PN ---
Date of Progress Note: 08/11/2022 Mr. Pat came in with rapid atrial fibrillation yesterday. He has a history of COPD, BPH, diab etes, CHF that is diastolic. Came in hypotensive with rapid ventricular response. At one point, we did a cardioversion and put him on sotalol, but he is not taking that. He did not do well with metop rolol and diltiazem and digoxin. He was placed on amiodarone drip. Today, his blood pressure is bet ter. His potassium is better, but his rate is still 110 to 120. He is fairly asymptomatic this morn ing. We will continue his present regimen including amiodarone and Eliquis. I would give him a dose of digoxin 0.5 mg IV push x1, increase the amiodarone dose to 1 mg/minute. We will plan to do a dir ect current cardioversion in the morning if he is still in that rhythm. Sooner or later, I think Mr. Pat needs to have a heart catheterization. [facility] he is very noncompliant. We will have to wait after the cardioversion. Case was discussed with Dr Isidro Rao. RUPERT/BASSAM Voice ID: [id number] Report ID: [id number]
--- NOTE | 2022-08-11 10:46 | CON ---
Date of Consultation: 08/10/2022 Reason For Consultation: Atrial fibrillation with rapid ventricular response. History Of Present Illness: Mr. Pat is 72. Has a history of atrial fibrillation. [facility], we did a direct current cardioversion and he converted to sinus rhythm. At that time, he was unr esponsive to Cardizem, metoprolol, and digoxin. We avoided amiodarone because of his lung situation. I put him on sotalol after the cardioversion, but I do not think he has been taking any of his medi cations. He comes in with rapid ventricular response. Denied chest pain, nausea, vomiting, diaphore sis, PND, orthopnea, pedal edema. Has had palpitation. No syncope. No fever or no chills. Past Medical History: Includes atrial fibrillation, COPD, benign prostatic hypertrophy, diastolic co ngestive heart failure, and diabetes. Allergies: NONE. Review of Systems: Negative. Social History: Negative. Family History: Negative. Medications: At home are supposed to be Eliquis, aspirin, Lasix, insulin, metformin, sotalol, Flomax , and prednisone, but he is not taking any of his medicines. Physical Examination: Vital Signs: He was in atrial fibrillation, rate of 127, blood pressure is 81/71. HEENT: Negative. Neck: Supple with no bruit. Chest: Clear. Cardiac: Revealed atrial fibrillation. Abdomen: Obese, but benign. Extremities: Revealed 1+ edema to the knees. Skin: Dry and intact. Neurologic: He was nonfocal. Diagnostic Data: Showed EKG, atrial fibrillation, 127. Potassium 3.3. BNP is 2393. White count wa s 12,000. Glucose was 197. Chest x-ray is negative. Impression And Plan: 1.Recurrent atrial fibrillation. I will go ahead and load him with amiodarone and put him on amioda barbara drip. We had no choice at this point. Correct his potassium. We will see how he does with his atrial fibrillation on the amiodarone and make further decision later. 2.Chronic obstructive pulmonary disease, stable. 3.Diabetes. 4.Congestive heart failure, diastolic, stable. 5.Benign prostatic hypertrophy. 6.Hypokalemia, needs to be corrected. 7.Hypotension secondary to atrial fibrillation. Again, amiodarone drip IV. After bolus, we will se e how he does overnight. NB/MODL Voice ID: [id number] Report ID: [id number]
[2022-08-11] MEDS ORDERED: AMIODARONE HCL 900 MG in Dextrose 5%-Water 482 ML IV SCH (12:00)
[2022-08-11] MEDS: MORPHINE 2 MG/ML SYR IV PRN ×2 (13:42→19:12)
[2022-08-11] MEDS: NICOTINE 14 MG/PAT TD SCH (20:32)
[2022-08-12] MEDS: AMIODARONE HCL 900 MG in Dextrose 5%-Water 482 ML IV SCH (01:08)
[2022-08-12 05:02] LABS: Absolute Lymphocytes (CBC) 2.2 K/uL (0.7-4.9); Hematocrit 41.5 % (39.6-49.0); Lymphocytes % 11.5 % (15.3-44.8); MCV 89.9 fL (80-100); MPV 9.8 fL (7.6-11.3); RBC Red Blood Cell Count 4.62 M/uL (4.33-5.43)
[2022-08-12 05:43] LABS: Potassium 3.9 mmol/L (3.5-5.1)
[2022-08-12 05:44] LABS: Albumin 2.7 g/dL (3.4-5.0); Bilirubin Total 1.3 mg/dL (0.2-1.0); Magnesium 1.7; Protein, Total 6.4 g/dL (6.4-8.2)
--- NOTE | 2022-08-12 06:29 | P.PN ---
Date of Service: 08/12/22 Subjective: slight improvement this morning +cough, tired no new symptoms ROS: 10 point ROS as noted above, otherwise negative Physical exam GEN: Alert, oriented, fatigued appearing, +dementia HEENT: Normal conjunctiva, sclera anicteric CV: Irregularly irregular rhythm, trace b/l pedal edema Pulm: Nonlabored respirations on 3L NC ABD: Soft, nontender, nondistended Neuro: Normal speech, normal affect Problem List Atrial flutter/Afib with RVR-noncompliance Chronic diastolic congestive heart failure Diabetes mellitus type 2insulin-dependent COPD on home O24.5 L Hypertension Tobacco abuse Atrial flutter/Afib with RVR-noncompliance Continue amiodarone drip started in ED, increased rate to 1 per cardiology Monitor blood pressure closely, remains borderline / low Cardiology to electrically cardiovert this morning continue eliquis echo ordered SIRS criteria, leukocytosis, tachycardia, tachypnea, afebrile. no source of infection, patient denies fever. ROS with +Cough last few days. CXR without evidence of pneumonia does not appear septic, but will check cultures, lactate, etc start zosyn empirically leukocytosis could be reactive, but seems too high of a difference. Review of EMR reveals chronic leukocytosis Chronic diastolic CHF, confirm home meds and continue Insulin sliding scale, adjust insulin as needed Supplemental oxygen as needed Nicotine patch ordered N.p.o. after midnight VTE: Eliquis Code: Full Dispo: Home, 1-2 days Time Spent Managing Pts Care (In Minutes): 35
[2022-08-12] MEDS ORDERED: MAGNESIUM SULFATE 1 gm IVPB 1 GM/100 ML BAG IV ONE (07:00)
[2022-08-12] MEDS: INSULIN -REGULAR HUMAN 50 UNIT/0.5 ML ML SQ SCH ×4 (07:30→20:21)
[2022-08-12] MEDS ORDERED: PIPERACIL/TAZO 3.375 GM VIAL IV ONE (07:36)
[2022-08-12] MEDS: APIXABAN 5 MG TABLET PO SCH ×2 (07:46→20:28)
[2022-08-12] MEDS ORDERED: MIDAZOLAM HCL 10 ML ONE (08:26)
--- NOTE | 2022-08-12 08:26 | RAD REPORT ---
EXAM DESCRIPTION: RAD - Chest Single View - 08/12/2022 6:58 am CLINICAL HISTORY: eval opacities Chest pain. COMPARISON: Chest Single View dated 08/10/2022; Chest Single View dated 07/16/2022; Chest Single View d ated 07/03/2022; Chest Single View dated 06/18/2022 FINDINGS: Portable technique limits examination quality. Bilateral pulmonary opacities are noted, mildly progressive since comparative study. Trace bilateral pleural effusions. The heart is moderately enlarged. No displaced fractures. IMPRESSION: Mild progression in CHF.
[2022-08-12] MEDS ORDERED: FLUMAZENIL 0.1 MG/ML (5 mL VIAL) IV ONE (08:27)
[2022-08-12] MEDS ORDERED: NA CHLORIDE 0.9% 1,000 ML ONE (08:29)
[2022-08-12] MEDS: PIPER TAZO 3.375 GM in NA CHLORIDE 0.9% 100 ML IV SCH ×2 (08:51→17:00)
[2022-08-12] MEDS ORDERED: NA CHLORIDE 0.9% 100 ML ONE (08:52)
[2022-08-12] MEDS: AMIODARONE HCL 200 MG TAB PO SCH ×2 (11:43→20:28)
--- NOTE | 2022-08-12 14:14 | EKG ---
Test Date: 2022-08-10 Test Time: 16:46:04 Cardiac Cath Lab Manager: LIBBY MEASUREMENT RESULTS: Intervals: Rate: 147 WA: 142 QRSD: 146 QT: 364 QTc: 569 [place]: P: 60 WA: 142 QRS: 266 T: 34 INTERPRETIVE STATEMENTS: Sinus tachycardia Right bundle branch block Inferior infarct, age undetermined Anterior infarct, age undetermined Abnormal ECG Compared to ECG 07/16/2022 12:21:23 Atrial premature complex(es) no longer present First degree AV block no longer present Left-axis deviation no longer present Myocardial infarct finding still present Electronically Signed On 08-12-22 14:13:22 CDT by Gianluca Garcia
[2022-08-12] MEDS: NICOTINE 14 MG/PAT TD SCH (20:27)
[2022-08-13] MEDS: PIPER TAZO 3.375 GM in NA CHLORIDE 0.9% 100 ML IV SCH ×2 (01:20→07:19)
[2022-08-13 05:05] LABS: Hematocrit 38.5 % (39.6-49.0); MCV 89.1 fL (80-100); MPV 9.5 fL (7.6-11.3); RBC Red Blood Cell Count 4.32 M/uL (4.33-5.43)
[2022-08-13 05:31] LABS: Potassium 3.5 mmol/L (3.5-5.1)
[2022-08-13 05:32] LABS: Magnesium 1.8
--- NOTE | 2022-08-13 06:19 | PN ---
Date of Progress Note: 08/12/2022 Mr. Pat has been followed for acute on chronic diastolic congestive heart failure, COPD exacer bation, hypertension, dyslipidemia, had been in atrial fibrillation despite use of IV amiodarone. He continues to have a rate of 110 to 130. His oxygenation is improved. He has diuresed well. His O2 saturation is 96%. His vital signs remained stable except for his atrial flutter and fibrillation. We will plan a direct current cardioversion on him today after which we will continue his amiodarone and Eliquis. If the amiodarone fails, we will consider him for a possible AV ray ablation and a p acemaker as an outpatient. RUPERT/BASSAM Voice ID: [id number] Report ID: [id number]
--- NOTE | 2022-08-13 06:28 | PN ---
Date of Progress Note: 08/13/2022 Mr. Pat is status post direct current cardioversion on 08/12/2022 for atrial flutter and fibri llation. He received 200 joules and converted to sinus rhythm with first-degree AV block. Today, he is in sinus rhythm again with first-degree AV block with occasional PAC that he has not had. He has not had any further atrial fibrillation. He remains on amiodarone 400 mg 1 p.o. b.i.d. He remains on Eliquis. We will continue the present regimen for now. O2 saturation is improved. The chest brandt s not reveal any rales. He does not have any edema. I will continue his present regimen and he can go home whenever it is okay with admitting physician. We will see him in the office as an outpatient . Hopefully, he will be compliant this time. If his atrial fibrillation returns, we will send him f or electrophysiology services for possible ablation of the AV node and a possible pacemaker. RUPERT/BASSAM Voice ID: [id number] Report ID: [id number]
--- NOTE | 2022-08-13 06:53 | ECHO ---
HEIGHT: 5 ft 8 in WEIGHT: 217 lb 9.6 oz DATE OF STUDY: 08/12/[address]: Fausto Cochran NP 2-DIMENSIONAL: YES M.MODE: YES DOPPLER: YES COLOR FLOW: YES TDS: NO PORTABLE: YES DEFINITY: NO BUBBLE STUDY: NO DIAGNOSIS: A-FLUTTER CARDIAC HISTORY: CATHERIZATION: NO SURGERY: NO PROSTHETIC VALVE: NO PACEMAKER: NO MEASUREMENTS (cm) DIASTOLIC (NORMALS) SYSTOLIC (NORMALS) IVSd 1.2 (0.6-1.2) LA Diam 3.8 (1.9-4.0) LVEF 30-35% LVIDd 5.2 (3.5-5.7) LVIDs 4.0 (2.0-3.5) %FS 23% LVPWd 1.2 (0.6-1.2) Ao Diam 2.7 (2.0-3.7) 2 DIMENSIONAL ASSESSMENT: RIGHT ATRIUM: NORMAL LEFT ATRIUM: ENLARGED RIGHT VENTRICLE: NORMAL LEFT VENTRICLE: DEPRESSED EJECTION FRACTION TRICUSPID VALVE: MILD TRICUSPID REGURGITATION MITRAL VALVE: MILD MITRAL REGURGITATION PULMONIC VALVE: NORMAL AORTIC VALVE: NORMAL PERICARDIAL EFFUSION: NONE AORTIC ROOT: NORMAL LEFT VENTRICULAR WALL MOTION: MODERATE GLOBAL HYPOKINESIS. DOPPLER/COLOR FLOW: SEE BELOW. COMMENTS: MODERATLEY DEPRESSED LEFT VENTRICULAR EJECTION FRACTION 30-35%. MODERATE GLOBAL HYPOKINESIS. LEFT ATRIAL ENLARGEMENT. MILD MITRAL AND TRICUSPID REGURGITATION. TECHNOLOGIST: BYRON MCKEON
[2022-08-13] MEDS: INSULIN -REGULAR HUMAN 50 UNIT/0.5 ML ML SQ SCH ×4 (07:18→21:00)
[2022-08-13] MEDS: AMIODARONE HCL 200 MG TAB PO SCH ×2 (07:18→21:03)
[2022-08-13] MEDS: APIXABAN 5 MG TABLET PO SCH ×2 (07:19→21:04)
[2022-08-13] MEDS ORDERED: MAGNESIUM SULFATE 1 gm IVPB 1 GM/100 ML BAG IV ONE (07:30)
[2022-08-13] MEDS ORDERED: POTASSIUM 25 MEQ EFFERV TAB PO ONE (07:30)
--- NOTE | 2022-08-13 14:51 | P.PN ---
Subjective Date of Service: 08/13/22 Primary Care Provider: None Chief Complaint: Atrial flutter, RVR Patient has no new complaint today. He is currently in sinus rhythm. Physical Examination - Vital Signs Temperature: 97.8 F Blood Pressure: 99/72 Pulse: 97 Respirations: 21 Pulse Ox (%): 93 Assessment And Plan - Plan Physical exam GEN: Alert, oriented, NAD. CV: Regular rhythm, tachycardic, trace b/l pedal edema Pulm: Nonlabored respirations on 3L NC ABD: Soft, nontender, nondistended Neuro: Normal speech, normal affect, no focal motor deficit. Problem List Atrial flutter/Afib with RVR-noncompliance Chronic diastolic congestive heart failure Diabetes mellitus type 2insulin-dependent COPD on home O24.5 L Hypertension Tobacco abuse Atrial flutter/Afib with RVR-noncompliance Status post electrocardioversion. Patient currently in sinus rhythm Continue amiodarone drip transition to p.o. amiodarone 400 mg twice daily. Monitor blood pressure closely, remains borderline / low continue eliquis echo shows reduced EF 30 to 35% SIRS criteria, leukocytosis, tachycardia, tachypnea, afebrile. no source of infection, patient denies fever. CXR without evidence of pneumonia does not appear septic. Negative prolactin. Blood cultures shows no growth. Review of EMR reveals chronic leukocytosis. Discontinue antibiotics. Chronic systolic heart failure Continue home medications confirm home meds and continue Diabetes mellitus type 2 Insulin sliding scale, adjust insulin as needed VTE: Eliquis Code: Full Dispo: Home Time Spent Managing Pts Care (In Minutes): 25
--- NOTE | 2022-08-13 16:43 | OP ---
Date of Procedure: 08/12/2022 Surgeon: Nick Coulter MD City Bus Driver: Mrs. Long. Procedure: Direct current cardioversion. Indication: Atrial fibrillation. Mr. Pat has had paroxysmal atrial fibrillation, unresponsiv e to amiodarone IV, heart rate continues to be 110 to 140, in atrial fibrillation and atrial flutter. Mr. Pat has had a cardioversion approximately 3 months ago for the same reason. At that neetu e, he had failed digoxin, metoprolol, and Cardizem. After he got converted, he was placed on sotalol and Eliquis, but he has not taken his sotalol, but he has been on Eliquis and has been on Lovenox si nce admission in the hospital. I gave him 10 mg of Versed IV push for total sedation. He received 1 shock of 200 joules and he converted to sinus rhythm with first-degree AV block. There were no comp lications or blood loss. Anesthesia: Total conscious sedation was 30 minutes. Final Diagnosis: Status post successful cardioversion from atrial fibrillation to sinus rhythm. We will switch him to p.o. amiodarone, continue Eliquis. He can move out of the ICU today. RUPERT/BASSAM Voice ID: [id number] Report ID: [id number]
[2022-08-13] MEDS: NICOTINE 14 MG/PAT TD SCH (21:04)
[2022-08-14] MEDS: MORPHINE 2 MG/ML SYR IV PRN ×2 (01:13→20:57)
[2022-08-14 04:57] LABS: Absolute Lymphocytes (CBC) 2.9 K/uL (0.7-4.9); Hematocrit 40.7 % (39.6-49.0); Lymphocytes % 21.1 % (15.3-44.8); MCV 90.8 fL (80-100); MPV 10.1 fL (7.6-11.3); RBC Red Blood Cell Count 4.48 M/uL (4.33-5.43)
[2022-08-14 05:14] LABS: Magnesium 1.9 mg/dL (1.8-2.4)
[2022-08-14] MEDS: INSULIN -REGULAR HUMAN 50 UNIT/0.5 ML ML SQ SCH ×4 (07:30→20:57)
[2022-08-14] MEDS: APIXABAN 5 MG TABLET PO SCH ×2 (08:16→20:45)
[2022-08-14] MEDS: AMIODARONE HCL 200 MG TAB PO SCH ×2 (08:16→20:45)
[2022-08-14] MEDS: TRAMADOL HCL 50 MG TAB PO PRN ×2 (08:49→23:36)
--- NOTE | 2022-08-14 13:15 | P.PN ---
Subjective Date of Service: 08/14/22 Primary Care Provider: None Chief Complaint: Atrial flutter, RVR Patient has no new complaint today. He is currently in sinus rhythm. Physical Examination - Vital Signs Temperature: 98.6 F Blood Pressure: 107/73 Pulse: 89 Respirations: 19 Pulse Ox (%): 92 Assessment And Plan - Plan Physical exam GEN: Alert, oriented, NAD. CV: Regular rhythm, tachycardic, trace b/l pedal edema Pulm: Nonlabored respirations on 3L NC, clear to auscultation bilaterally ABD: Soft, nontender, nondistended Neuro: Normal speech, normal affect, no focal motor deficit. Problem List Atrial flutter/Afib with RVR-noncompliance Chronic diastolic congestive heart failure Diabetes mellitus type 2insulin-dependent COPD on home O24.5 L Hypertension Tobacco abuse Atrial flutter/Afib with RVR-noncompliance Status post electrocardioversion. Patient currently in sinus rhythm Status post amiodarone drip. Transitioned to p.o. amiodarone 400 mg twice daily. Monitor blood pressure closely, remains borderline / low continue eliquis echo shows reduced EF 30 to 35% SIRS criteria, leukocytosis, tachycardia, tachypnea, afebrile. no source of infection, patient denies fever. CXR without evidence of pneu monia Negative prolactin. Blood cultures shows no growth. Review of EMR reveals chronic leukocytosis. Off antibiotics. Chronic systolic heart failure Continue home medications confirm home meds and continue Diabetes mellitus type 2 Insulin sliding scale, adjust insulin as needed. Impaired mobility Continue PT He may qualify for inpatient rehab placement VTE: Eliquis Code: Full Dispo: Home Time Spent Managing Pts Care (In Minutes): 27
[2022-08-14] MEDS: NICOTINE 14 MG/PAT TD SCH (20:45)
[2022-08-14 22:10] VITALS: O2SAT 95
[2022-08-14] MEDS ORDERED: ALPRAZOLAM 0.25 MG TABLET PO ONE (23:38)
[2022-08-15] MEDS: MORPHINE 2 MG/ML SYR IV PRN (02:34)
[2022-08-15 02:59] LABS: Specific Gravity 1.027 (1.005-1.030); Urine Bacteria <20 /HPF (<20); Urine Bilirubin NEGATIVE (Negative); Urine Blood Negative (Negative); Urine Clarity Clear (Clear); Urine Color Yellow (Yellow); Urine Glucose 2+ (Negative); Urine Mucus 2+ /HPF (None Seen); Urine Protein TRACE (Negative); Urine RBC <5 /HPF (None Seen); Urine Urobilinogen 2+ (Normal)
[2022-08-15] MEDS: INSULIN -REGULAR HUMAN 50 UNIT/0.5 ML ML SQ SCH ×2 (07:30→11:30)
[2022-08-15] MEDS: APIXABAN 5 MG TABLET PO SCH (09:30)
[2022-08-15] MEDS: AMIODARONE HCL 200 MG TAB PO SCH (09:30)
--- NOTE | 2022-08-15 15:42 | P.DS ---
Admission Date: 08/10/22 Discharge Date: 08/15/22 Primary Care Provider: None Disposition: TRANSFER TO INPATIENT REHAB Discharge Condition: FAIR Reason for Admission: Atrial flutter, RVR Brief History of Present Illness: 72-year-old male history of chronic diastolic congestive heart failure, atrial fibrillation on chronic anticoagulation, diabetes mellitus type 2insulin- dependent, COPD, tobacco abuse presented to the emergency department for chest pain and shortness of breath. He described a pressure-like substernal chest painnonradiating. Upon arrival to the emergency department he is found to be in 2-1 atrial flutter with a rate of 145. His blood pressure was soft around 100 systolic. For that reason, ED provider started patient on amiodarone drip. His labs were significant for white blood cell count 14.3 glucose 247 BNP 2393 high-sensitivity troponin initially 18.5. Patient admitted for further management. Hospital Course: Diagnosis Atrial flutter/Afib with RVR-noncompliance Chronic diastolic congestive heart failure Diabetes mellitus type 2insulin-dependent COPD on home O24.5 L Hypertension Tobacco abuse Atrial flutter/Afib with RVR likely secondary to noncompliance Patient seen by cardiology who recommended electrocardioversion. Status post electrocardioversion. Patient went into sinus rhythm Amiodarone drip transitioned to p.o. amiodarone 400 mg twice daily. Patient later developed atrial fibrillation Currently rate controlled on the amiodarone. Cardiology-Dr. Coulter recommend outpatient follow-up for ablation and pacemaker Blood pressure was borderline low continued eliquis echo shows reduced EF 30 to 35% SIRS criteria, leukocytosis, tachycardia, tachypnea, afebrile. no source of infection, patient denied fever. CXR without evidence of pneumonia Negative prolactin. Blood cultures: no growth. Review of EMR reveals chronic leukocytosis. Antibiotics later discontinued. Diabetes mellitus type 2 Managed with insulin sliding scale. Lantus insulin resumed on discharge Impaired mobility Seen and evaluated by PT and inpatient rehab recommended Patient accepted for inpatient rehab at [facility]. Vital Signs/Physical Exam: Temp Pulse Resp BP Pulse Ox 97.0 F 116 H 18 117/73 90 L 08/15/22 12:00 08/15/22 12:00 08/15/22 12:00 08/15/22 12:00 08/15/22 12:00 General: Alert, In no apparent distress, Oriented x3 HEENT: Mucous membr. moist/pink Neck: JVD not distended Respiratory: Clear to auscultation bilaterally, Normal air movement Cardiovascular: Normal S1 S2, Irregular heart rate/rhythm Gastrointestinal: Normal bowel sounds, Soft and benign, Non-distended Musculoskeletal: No swelling Integumentary: No cyanosis Neurological: Normal strength at 5/5 x4 extr Laboratory Data at Discharge: WBC 13.80 K/uL (4.3-10.9) H 08/14/22 04:35 Hgb 13.5 g/dL (13.6-17.9) L 08/14/22 04:35 Hct 40.7 % (39.6-49.0) 08/14/22 04:35 Plt Count 157 K/uL (152-406) 08/14/22 04:35 PT 13.3 SECONDS (9.5-12.5) H 08/10/22 18:28 INR 1.20 08/10/22 18:28 APTT 27.4 SECONDS (24.3-36.9) 08/10/22 18:28 Sodium 138 mmol/L (136-145) 08/14/22 04:35 Potassium 4.0 mmol/L (3.5-5.1) D 08/14/22 04:35 BUN 10 mg/dL (7-18) 08/14/22 04:35 Creatinine 0.73 mg/dL (0.55-1.3) 08/14/22 04:35 Glucose 183 mg/dL (74-106) H 08/14/22 04:35 Magnesium 1.9 mg/dL (1.8-2.4) 08/14/22 04:35 Total Bilirubin 1.3 mg/dL (0.2-1.0) H 08/12/22 04:47 AST 9 U/L (15-37) L 08/12/22 04:47 ALT 19 U/L (12-78) 08/12/22 04:47 Alkaline Phosphatase 57 U/L (45-117) 08/12/22 04:47 Triglycerides 128 mg/dL (<150) 08/11/22 04:58 Cholesterol 123 mg/dL (<200) 08/11/22 04:58 HDL Cholesterol 32 mg/dL (40-60) L 08/11/22 04:58 Cholesterol/HDL Ratio 3.84 08/11/22 04:58 Home Medications: Apixaban [Eliquis] 5 mg PO BID #60 tablet 07/04/22 Aspirin [Aspirin EC 81 MG] 81 mg PO DAILY #30 tablet. 07/04/22 Insulin Glargine,Hum.rec.anlog [Lantus Solostar] 15 unit SQ DAILY 30 Days #2 kit 07/04/22 Metformin HCl [Glucophage*] 500 mg PO BIDWM 30 Days #60 tab 07/04/22 Tamsulosin [Flomax*] 0.4 mg PO DAILY #30 cap 07/04/22 Amiodarone HCl [Cordarone*] 400 mg PO BID tab 08/15/22 Insulin -Regular Human [Novolin -R*] See Protocol SQ ACHS ml 08/15/22 traMADol HCL [Ultram*] 50 mg PO Q6H PRN tab 08/15/22 Diet: ADA Activity: Fall precautions Followup: Nick Coulter MD [ACTIVE - CAN ADMIT] - (Within 2 weeks.) NONE,NONE [Primary Care Provider] - Time spent managing pt's care (in minutes): 37
[2022-08-15 16:41] VITALS: BP 99/68; TEMP 97.3
[2022-08-15] MEDS: TRAMADOL HCL 50 MG TAB PO PRN (16:43)
--- NOTE | 2022-08-16 14:43 | PN ---
Date of Progress Note: 08/14/2022 Mr. Pat underwent a cardioversion yesterday from atrial flutter fibrillation to sinus rhythm. He was switched to p.o. amiodarone 400 b.i.d. Today, he is back in atrial fibrillation, but his rat e controlled in the 90s. He is not having any cardiac symptoms. His chest is clear. We will contin ue his medications 400 b.i.d. for the atrial fibrillation. Continue his other medications for diabet es, COPD, diastolic congestive heart failure. I am comfortable with him going home. I think if he b ecomes symptomatic with his atrial fibrillation on amiodarone, we will consider sending him for elect rophysiology services for possible AV ray ablation and a pacemaker. KAREN Voice ID: [id number] Report ID: [id number]
== END 2022-08-15 17:07 | DRG 309 ==
LOC: ER 16:31 → ERHOLD 19:22 → 3RD-ICU 20:09 → 4TH 08-14 20:03
PROVIDERS: ADMIT Hospitalist; ATTEND Internal Medicine
PROC: 5A2204Z Restoration of Cardiac Rhythm, Single (ICD-10-PCS; principal; 2022-08-12)
DX: I48.92 Unspecified atrial flutter (principal); I50.32 Chronic diastolic (congestive) heart failure; R65.10 Systemic inflammatory response syndrome (SIRS) of non-infectious origin without acute organ dysfunction; I11.0 Hypertensive heart disease with heart failure; J44.9 Chronic obstructive pulmonary disease, unspecified; I48.91 Unspecified atrial fibrillation; E11.9 Type 2 diabetes mellitus without complications; E87.6 Hypokalemia; E78.5 Hyperlipidemia, unspecified; I95.9 Hypotension, unspecified; I44.0 Atrioventricular block, first degree; N40.0 Benign prostatic hyperplasia without lower urinary tract symptoms; F03.90 Unspecified dementia, unspecified severity, without behavioral disturbance, psychotic disturbance, mood disturbance, and anxiety; F17.210 Nicotine dependence, cigarettes, uncomplicated; I25.2 Old myocardial infarction; Z23 Encounter for immunization; Z79.4 Long term (current) use of insulin; Z79.84 Long term (current) use of oral hypoglycemic drugs; Z79.01 Long term (current) use of anticoagulants; Z74.09 Other reduced mobility; Z91.14 Patient's other noncompliance with medication regimen; Z79.52 Long term (current) use of systemic steroids; Z99.81 Dependence on supplemental oxygen; Z79.899 Other long term (current) drug therapy; Z20.822 Contact with and (suspected) exposure to COVID-19
CPT/HCPCS: 36415; 71045; 80048; 80053; 80061; 80076; 81001; 82947; 83036; 83735; 83880; 84132; 84145; 84439; 84443; 84484; 85025; 85027; 85610; 85730; 87040; 87811; 90471; 92960; 93005; 93306; 96374; 97116; 97161; 97530; 99285; J0282; J1160; J1815; J2250; J2270; J2543; J3475; J7030; J7040; J7060; Q2035

== ENCOUNTER 2022-09-01 15:41 | Observation (INO) | payer OTHER ==
--- OUTSIDE RECORDS SUMMARY | 2022-09-01 15:49 | XMS REPORT | Continuity of Care Document ---
:1950 Author Organization [facility] t Address [address] [place] [address] Care Team Providers Name Role Phone Pcp, Patient Does Not Have A Primary Care Physician +[id number] Meghana Ayala Attending Clinician Unavailable Jose Kim Rahil Attending Clinician Unavailable Jose Kim Attending Clinician Unavailable Cristian SALVADOR, La Cam Attending Clinician Unavailable Charlene Butt DO Attending Clinician Atul Stephens MD Attending Clinician Berna Alcantar MD Attending Clinician [phone] BERNA ALCANTAR Attending Clinician Unavailable Orlando Cannon MD Attending Clinician Jose Kim Rahil Admitting Clinician Unavailable Katharine DUBOSE, Berna De Guzman Admitting Clinician [phone] BERNA ALCANTAR Admitting Clinician Unavailable Payers Payer Name Policy Type Policy Number Effective Date Expiration Date S cindy [facility] [id number] Problems Condition Condition Condition Status Onset Resolution Last Treating Co mments Source Name Details Category Date Date Treatment Clinician Date Acute on Acute on Disease Active Unive rs chronic chronic 9-11 ity of combined combined 00:00: [place] systolic systolic 00 Medica l and and Branch diastolic diastolic congestive congestive heart heart failure failure Atrial Atrial Disease Active Univers flutter flutter 07-21 ity of with rapid with [place] 00:[place] ventricula ventricula 00 Me dical r response r response Br anch Obesity Obesity Disease Active Univers (BMI (BMI 9- ity of 30-39.9) 30-39.9) 00:00: [place] 00 Medical Branch Cigarette Cigarette Disease Active Uni vers smoker smoker 07-21 ity of 00:00: [place] 00 Medical Branch Type 2 Type 2 Disease Active Univers diabetes diabetes 07-21 ity of mellitus mellitus 00:00: [place] without without 00 Medical complicati complicati Br anch on, on, without without long-term long-term current current use of use of insulin insulin Chest Chest Disease Active Univers pain, pain, - ity of unspecifie unspecifie 00:00: [place] d type d type 00 Medical Branch HFrEF HFrEF Disease Active Overview: Univer s (heart (heart 07-20 Formattin ity of failure failure 00:00: g of this [place] with with 00 note Medical reduced reduced might be Branch ejection ejection different fraction) fraction) from the original. Added automatic ally from request for surgery [id number] CHF CHF Problem Active Common (congestiv (congestiv Sp anabela e heart e heart - [facility]I failure) failure) [facility] Hypertensi Hypertensi Problem Active C ommon on on Spirit - [facility] Diabetes Diabetes Problem Active Commo n type 2, type 2, Spirit controlled controlled - [facility] COPD COPD Problem Active Common (chronic (chronic Spirit obstructiv obstructiv - [facility] e e St pulmonary pulmonary [place] s disease) disease) Medica l Center Nicotine Nicotine Problem Active Commo n dependence dependence Sp anabela - [facility] Seasonal Seasonal Problem Active Commo n allergic allergic [facility] rhinitis rhinitis - [facility] Adjustment Adjustment Problem Active C ommon disorder disorder Spirit with with - [facility] depressed depressed St mood mood [facility] Chronic Chronic Problem Active Common fatigue fatigue Spirit - [facility] Type 2 Type 2 Problem Active Common diabetes diabetes Spirit mellitus mellitus - [facility] with with St hyperglyce hyperglyce Anupama kes marci, marci, Medical without without Center long-term long-term current current use of use of insulin insulin Allergies, Adverse Reactions, Alerts Allergy Allergy Status Severity Reaction(s) Onset Inactive Treating Comm ents Source Name Type Date Date Clinician NO KNOWN Drug Active Univers ALLERGIE Class ity of S [facility] Social History Social Habit Start Date Stop Date Quantity Comments Source History of Cigarette Smoker Universi ty of tobacco use [place] [facility] [place] History [facility] Food 2022-07-29 2022-07-29 1 Univers ity of Worry 00:00:00 00:00:00 [place] [facility] History SDOH Food 2022-07-29 2022-07-29 1 Univers ity of Scarcity 00:00:00 00:00:00 [place] [facility] History SDOH 2022-07-29 2022-07-29 2 University o f Transport Med 00:00:00 00:00:00 [place] Medic al Branch History [facility] 2022-07-29 2022-07-29 2 University o f Transport Non-Med 00:00:00 00:00:00 [place] [facility] edical Branch Tobacco use and 2022-07-21 2022-07-21 Smokeless tobacco Un iversity of exposure 00:00:00 00:00:00 non-user [facility] Exposure to 2022-07-10 2022-07-20 Not sure [facility] SARS-CoV-2 00:00:00 10:56:00 [facility] (event) Branch Sex Ass[birth year] At [birth year] Universit y of 00:00:00 00:00:00 [facility] Smoking Status Start Date Stop Date Source Smokes tobacco daily 2022-07-21 00:00:00 Univers ity of [facility] Medications Ordered Filled Start Stop Current [...] at 0800, Until Discontinu ed, Routine furosemide 2021-0 Yes [id number] 40mg Take 1 Univers 40 mg 9-18 tablet by ity of tablet 00:00: mouth in [place] 00 the Medical morning Branch and 1 tablet in the evening. metoprolol 2021-0 Yes [id number] 50mg Take 1 Univers succinate 9-18 tablet by ity o f XL 50 mg 24 00:00: mouth in [place] hr tablet 00 the Medical morning. Branch spironolact 2021-0 Yes [id number] 25mg Take 1 Univers one 25 mg 9-18 tablet by ity o f tablet 00:00: mouth in [place] 00 the Medical morning. Branch furosemide 2021-0 Yes [id number] 40mg Take 1 Univers 40 mg 9-18 tablet by ity of tablet 00:00: mouth in [place] 00 the Medical morning Branch and 1 tablet in the evening. metoprolol 2021-0 Yes [id number] 50mg Take 1 Univers succinate 9-18 tablet by ity o f XL 50 mg 24 00:00: [place] in [place] hr tablet 00 the Medical morning. Branch spironolact 2021-0 Yes [id number] 25mg Take 1 Univers one 25 mg 9-18 tablet by ity o f tablet 00:00: mouth in [place] 00 the Medical morning. Branch furosemide 2021-0 Yes [id number] 40mg Take 1 Univers 40 mg 9-18 tablet by ity of tablet 00:00: mouth in [place] 00 the Medical morning Branch and 1 tablet in the evening. metoprolol 2021-0 Yes [id number] 50mg Take 1 Univers succinate 9-18 tablet by ity o f XL 50 mg 24 00:00: [place] in [place] hr tablet 00 the Medical morning. Branch spironolact 2021-0 Yes [id number] 25mg Take 1 Univers one 25 mg 9-18 tablet by ity o f tablet 00:00: mouth in [place] 00 the Medical morning. Branch aspirin 2-0 Yes 81mg Take 81 mg Univ ers [...] by ity o f 21:46: mouth in [place] 23 the Medical morning. Branch montelukast Yes 1{tbl} Take 1 Un rita 10 mg 9-17 tablet by ity of tablet 21:46: mouth in [place] 23 the Medical morning. Branch albuterol Yes 2{puff} Take 2 Uni vers sulfate 9-17 Puffs by ity of (PROAIR 21:46: mouth as [place] RESPICLICK) 23 needed for Me dical 90 Cough. Branch mcg/actuati Cough, on AePB wheezing aspirin Yes 81mg Take 81 mg Univ ers (ASPIR-LOW 9-17 by mouth 2 ity of ORAL) 21:46: (two) [place] [id number] times Medical daily. Branch insulin Yes 15U inject 15 Unive rs glargine,hu 9-17 Units ity of m.rec.anlog 21:46: under the [place] (LANTUS 23 skin. Medical U-100 Branch INSULIN SC) losartan 25 Yes 1{tbl} Take 1 Un rita mg tablet 9-17 tablet by ity o f 21:46: mouth in [place] 23 the Medical morning. Branch montelukast Yes 1{tbl} Take 1 Un rita 10 mg 9-17 tablet by ity of tablet 21:46: mouth in [place] 23 the Medical morning. Branch albuterol Yes 2{puff} Take 2 Uni vers sulfate 9-17 Puffs by ity of (PROAIR 21:46: mouth as [place] RESPICLICK) 23 needed for Me dical 90 Cough. Branch mcg/actuati Cough, on AePB wheezing aspirin Yes 81mg Take 81 mg Univ ers (ASPIR-LOW 9-17 by mouth 2 ity of ORAL) 21:46: (two) [place] 23 times Medical daily. Branch insulin Yes 15U inject 15 Unive rs glargine,hu 9-17 Units ity of m.rec.anlog 21:46: under the [place] (LANTUS 23 skin. Medical U-100 Branch INSULIN SC) losartan 25 Yes 1{tbl} Take 1 Un rita mg tablet 9-17 tablet by ity o f 21:46: mouth in [place] 23 the Medical morning. Branch montelukast Yes 1{tbl} Take 1 Un irta 10 mg 9-17 tablet by ity of tablet 21:46: mouth in [place] 23 the Medical morning. Branch albuterol Yes 2{puff} Take 2 Uni vers sulfate 9-17 Puffs by ity of (PROAIR 21:46: mouth as [place] RESPICLICK) 23 needed for Me dical 90 [...] Branch 07/26/22 at 2030, Routine atorvastati Yes [id number] 40mg Take 1 Univers n 40 mg -17 tablet by ity of tablet 00:00: mouth at [place] 00 bedtime. Medical Branch apixaban Yes 1358 5mg Take 1 Univers (ELIQUIS) 5 9-17 tablet by ity of mg tablet 00:00: mouth [place] 00 the Medical morning Branch and 1 tablet in the evening. Indication s: atrial fibrillati on atorvastati Yes [id number] 40mg Take 1 Univers n 40 mg 9-17 tablet by ity of tablet 00:00: mouth at [place] 00 bedtime. Medical Branch apixaban Yes 1358 5mg Take 1 Univers (ELIQUIS) 5 9-17 tablet by ity of mg tablet 00:00: mouth [place] 00 the Medical morning Branch and 1 tablet in the evening. Indication s: atrial fibrillati on atorvastati Yes [id number] 40mg Take 1 Univers n 40 mg 9-17 tablet by ity of tablet 00:00: mouth at [place] 00 bedtime. Medical Branch apixaban Yes 1358 [...] :37 on Fri Medical Cardiac 07/26/22 at Branch Cath 1602, Until Fri07/26/22 at 1651, Routine, [...] Starting [place] injection 27 :37 on Fri07/26/22 at Branch 1554, Until Fri07/26/22 at 1651, Routine, CV Intraproce dure midazolam 2021- No ONCE INTRA U nivers (VERSED) 07-26 PROCEDURE, ity of injection 20:33: 21:51 Starting [place] as 19 :37 on Fri07/26/22 at Branch 1533, Until Fri07/26/22 at 1651, Routine, CV Intraproce dure FENTanyl PF 2021- No ONCE INTRA Univers (SUBLIMAZE 07-26 PROCEDURE, it y of (PF)) 20:33: 21:51 Starting [place] injection 00 :37 on Fri07/26/22 at Branch 1533, Until Fri07/26/22 at 1651, Routine, CV Intraproce dure aspirin Yes 325mg 325 mg, Univer s tablet 325 07-26 Oral, ity of mg 17:51: PRE-PROCED [place] 55 URE ONCE, Medical 1 dose, Branch Starting on Fri07/26/22 at 1251, Until Discontinu ed, Routine, Surgery/Pr ocedure, CV Preprocedu re aspirin 2021- No 325mg 325 mg, Unive rs tablet 325 07-26 Oral, ity of mg 17:51: 04:46 PRE-PROCED [place] 55 :24 URE ONCE, Medical 1 dose, [...] ed insulin 2021- No 15U 15 Units, [facility] ers glargine 07-26 Subcutaneo ity of (LANTUS 14:00: 04:46 us, DAILY, [place] U-100) 00 :24 First dose Medical injection (after Branch 15 Units last modificati on) on Fri07/26/22 at 0900, Until Discontinu ed KCL 2021- No 20meq 20 mEq, Univers (KLOR-CON 07-26 Oral, ity of M20) tablet 13:30: 14:05 ONCE, 1 [place] 20 mEq 00 :00 dose, On Medical Fri Branch 07/26/22 at 0830, Routine Sliding Yes Subcutaneo Univ ers Scale - us, Q6H, ity of Insulin - 01:00: First dose [place] Lispro 00 (after Medical (HumaLOG) + last Branch Fsbg modificati Testing on) on [place] 07/25/22 at 2000, Until Discontinu ed, Routine Sliding No Subcutaneo Uni vers Scale 07-26 us, Q6H, ity of Insulin - 01:00: 04:46 First dose [place] Lispro 00 :24 (after Medical (HumaLOG) + last Branch Fsbg modificati Testing on) on [place] 07/25/22 at 2000, Until Discontinu ed, Routine magnesium 2021- No 2g 2 g, IV [facility] ers sulfate in 07-26 Piggyback, it y of water 2 00:45: 03:11 Administer [place] gram/50 mL 00 :00 over 60 Medica l (4 %) Minutes, Branch infusion 2 ONCE, 1 g dose, On [place] 07/25/22 at 1945, Routine metOLazone 2021- No 2.5mg 2.5 mg, Un rita (ZAROXOLYN) 07-25 Oral, ity of tablet 2.5 16:00: 15:24 DAILY, [place] mg 00 :46 First dose Medical on [place] Branch 07/25/22 at 1100, Until Discontinu ed, Routine furosemide 2021- No 60mg 60 mg, IV U nivers (LASIX) 07-25 Push, TID, ity o f injection 14:00: 14:53 First dose [place] 60 mg 00 :03 (after Medical last Branch modificati on) on Fri07/25/22 at 0900, Until Discontinu ed, LORI insulin [...] Routine Sliding No Subcutaneo Uni vers Scale 07-25 us, [...] U-100) First dose Branch injection 2 on Wed Units 07/24/22 at 1200, Until Discontinu ed, Routine insulin 2021- No 10U 10 Units, Univ ers glargine 07-24 Subcutaneo ity of (LANTUS 15:20: 17:31 us, ONCE, [place] U-100) 00 :00 1 dose, On Medical injection Wed Branch 10 Units 07/24/22 at 1030, Routine insulin 2021- No 3U 3 Units, Unive rs glargine 07-24 Subcutaneo ity of (LANTUS 15:00: 14:27 us, ONCE, [place] U-100) 00 :00 1 dose, On Medical injection 3 Wed Branch Units 07/24/22 at 1000, Routine metoprolol Yes 50mg 50 mg, [facility] rs succinate 07-24 Oral, ity of XL (TOPROL 14:15: DAILY, [place] XL) tablet 00 First dose Med ical 50 mg on Wed Branch 07/24/22 at 0915, Until Discontinu ed, Routine metoprolol 2021- No 50mg 50 mg, [facility] ers succinate 07-24 Oral, ity of XL (TOPROL 14:15: 04:46 DAILY, [facility] s XL) tablet 00 :24 First dose Med ical 50 mg on Wed Branch 07/24/22 at 0915, Until Discontinu ed, [...] [place] as Puff 53 Starting Medical on Wed Branch 07/24/22 at 0245, Until Discontinu ed, Routine, Wheezing, Shortness of Breath albuterol 2021- No 2{puff} 2 Puff, U nivers (VENTOLIN) 07-24 Inhalation it y of inhaler 2 07:45: 04:46 , Q6HPRN, [place] Puff 53 :24 Starting Medical on Fri Branch 07/24/22 at 0245, Until 07/27/22 at 2346, Routine, Wheezing, Shortness of Breath magnesium 2021- No 4g 4 g, IV Univ ers sulfate in 07-24 Piggyback, it y of water 4 06:15: 08:14 ONCE, 1 [place] gram/50 mL 00 :00 dose, On Medic al (8 %) IV Fri Piggyback 4 07/24/22 at g 0115, Routine furosemide 2021- No 40mg 40 mg, IV U nivers (LASIX) 07-24 Push, ity of injection 05:30: 13:35 Q12H, [place] 40 mg 00 :15 First dose Medical (after Branch last modificati on) on Fri07/24/22 at 0030, Until Discontinu ed, LORI heparin Yes 3000U FOR Univers (1,000 14 REBOLUSING ity of unit/mL, 10 05:29: , [...] Rang e, Dosing and Testing: &nbs p;FOR [facility], [facility], AND [facility] ONLY - aPTT < 35: & [...] Rang e, Dosing and Testing: &nbs p;FOR [facility], [facility], AND C CAMPUSES ONLY - aPTT < 35: & nbsp;Bolus 5000 units, increase rate 300 units/hr&n bsp; - aPTT 35-44:&nbs p; Ivjay joyce 3000 units, increase rate 200 units/hr&n [...] Starting Medi jose tablet [address] [facility] tablet 07/23/22 at 1031, Until Discontinu ed, Routine, Pain (scale 4-6) HYDROcodone 2021-0 2021- No 1{tbl} 1 tablet, Univers -acetaminop 07-23-18 Oral, ity of hen (NORCO 15:31: 04:46 Q6HPRN, [place] 5) 5-325 mg 53 :24 Starting Medi jose tablet 1 on Fri [place] tablet 07/23/22 at 1031, Until 07/27/22 at 2346, Routine, Pain (scale 4-6) spironolact 2021-0 Yes 25mg 25 mg, Univ ers one 07-22 Oral, ity of (ALDACTONE) 14:00: DAILY, [place] tablet 25 00 First dose Medi jose mg on Fri07/22/22 at 0900, Until Discontinu ed, Routine aspirin 2021-0 Yes 81mg 81 mg, Univers chewable 07-22 Oral, ity of tablet 81 14:00: DAILY, [place] mg 00 First dose Medical on Fri07/22/22 at 0900, Until Discontinu ed, Routine losartan Yes 25mg 25 mg, Univers (COZAAR) 07-22 Oral, ity of tablet 25 14:00: DAILY, [place] mg 00 First dose Medical on [facility] 07/22/22 at 0900, Until Discontinu ed, Routine montelukast Yes 10mg 10 mg, Univ ers (SINGULAIR) 07-22 Oral, ity of tablet 10 14:00: DAILY, [place] mg 00 First dose Medical on [facility] 07/22/22 at 0900, Until Discontinu ed, Routine spironolact 2021- No 25mg 25 mg, Uni vers one 07-22 Oral, ity of (ALDACTONE) 14:00: 04:46 DAILY, [place] tablet 25 00 :24 First dose Medi jose mg on [facility] 07/22/22 at 0900, Until Discontinu ed, Routine aspirin No 81mg 81 mg, Univers chewable 07-22 Oral, ity of tablet 81 14:00: 04:46 DAILY, [place] mg 00 :24 First dose Medical on [facility] 07/22/22 at 0900, Until Discontinu ed, Routine losartan 2021- No 25mg 25 mg, Univer s (COZAAR) 07-22 Oral, ity of tablet 25 14:00: 04:46 DAILY, [place] mg 00 :24 First dose Medical on [facility] 07/22/22 at 0900, Until Discontinu ed, Routine montelukast No 10mg 10 mg, Uni vers (SINGULAIR) 07-22 Oral, ity of tablet 10 14:00: 04:46 DAILY, [place] mg 00 :24 First dose Medical on [facility] 07/22/22 at 0900, Until Discontinu ed, Routine metoprolol No 50mg 50 mg, Univ ers tartrate 07-22 Oral, BID ity o f (LOPRESSOR) 13:00: 14:10 MEALS, [place] tablet 50 00 :14 First dose Medi jose mg on [facility] 07/22/22 at 0800, Until Discontinu ed, Routine atorvastati Yes 40mg 40 mg, Univ ers n (LIPITOR) 07-22 Oral, QHS, it y of tablet 40 02:00: First dose [place] mg 00 on [facility] 07/21/22 at Branch 2100, Until Discontinu ed, Routine atorvastati 2021- No 40mg 40 mg, Uni vers n (LIPITOR) 07-22 Oral, QHS, i ty of tablet 40 02:00: 04:46 First dose [place] mg 00 :24 on [facility] 07/21/22 at Branch 2100, Until Discontinu ed, Routine morpHINE (2 2021- No 2mg 2 mg, Slow Univers mg/mL) 07-22 IV Push, ity of injection 2 01:29: 15:32 Q6HPRN, [place] mg 07 :09 Starting Medical on [facility] 07/21/22 at 2029, Until 07/23/22 at 1032, Routine, Chest pain furosemide 2021- No 20mg 20 mg, IV U nivers (LASIX) 07-22 Push, ity of injection 01:00: 05:27 Q12H, [place] 20 mg 00 :42 First dose Medical (after Branch last reorder) on [place] 07/21/22 at 2000, Until Discontinu ed, LORI enoxaparin 2021- No 1mg/kg 100 mg Un rita (LOVENOX) 07-22 (rounded ity o f injection 01:00: 05:30 [place] 98.5 [place] 100 mg 00 :31 mg = 1 Medical mg/kg Branch ?98.5 kg), Subcutaneo us, Q12H, First dose (after last modificati on) on [place] 07/21/22 at 2000, Until Discontinu ed, Routine sulfur 2021- No [id number] 5mL 5 mL, Unive rs hexafluorid 07-21 Intravenou i ty of e microsphr 15:45: 15:45 s, ONCE, 1 [place] (LUMASON) 00 :00 dose, On Medica l injection 5 Sun Branch mL 07/21/22 at 1045, Routine
tribunal member approving Restricted medication : ANA LUISA GRIMM insulin 2021- No 10U 10 Units, Univ ers glargine 07-21 Subcutaneo ity of (LANTUS 14:00: 14:09 us, DAILY, [place] U-100) 00 :20 First dose Medical injection on [place] Branch 10 Units 07/21/22 at 0900, Until Discontinu ed Sliding Subcutaneo Uni vers Scale 07-21 us, TID ity of Insulin - 13:00: 02:33 MEALS+HS, [place] Lispro 00 :10 First dose Medical (HumaLOG) + (after Branch Fsbg last Testing modificati on) on 07/21/22 at 0800, Until Discontinu ed, Routine Sliding Subcutaneo Uni vers Scale 07-21 us, Q4H, ity of Insulin - 00:00: 06:27 First dose [place] Lispro 00 :26 on [place] Medical (HumaLOG) + 07/20/22 at Br anch Fsbg 1900, Testing Until Discontinu ed, Routine glucagon Yes 1mg 1 mg, Univers (GLUCAGEN 07-20 Intramuscu ity of DIAGNOSTIC 23:48: lar, PRN, [place] KIT) 16 Starting Medical injection 1 on [place] [facility] 07/20/22 at 1848, Until Discontinu ed, LORI, Blood Glucose < or = 70 mg/dL and patient is unable to swallow or has mental changes. dextrose 50 Yes 25mL 25 mL, Univ ers % in water 07-20 Slow IV ity of (D50W) 23:48: Push, PRN, [place] injection 16 Starting Medica l 25 mL on [place] Branch 07/20/22 at 1848, Until Discontinu ed, LORI, Blood Glucose < or = 70 mg/dL and patient is unable to swallow or has mental status changes. glucagon 2021- No 1mg 1 mg, Univers (GLUCAGEN 07-2018 Intramuscu ity of DIAGNOSTIC 23:48: 04:46 lar, PRN, [place] KIT) 16 :24 Starting Medical injection 1 on [place] Branch mg 07/20/22 at 1848, Until 07/27/22 at 2346, LORI, Blood Glucose < or = 70 mg/dL and patient is unable to swallow or has mental changes. dextrose 50 No 25mL 25 mL, Uni vers % [...] status changes. metoprolol No 25mg 25 mg, [facility] ers tartrate 07-20 Oral, Q6H, ity of [...] Sat Branch 07/20/22 at 1730, Routine enoxaparin 2021- No 40mg 40 mg, Univ ers (LOVENOX) 07-20 Subcutaneo ity of injection 22:00: 23:46 us, DAILY, [place] 40 mg 00 :32 First dose Medical on Sat Branch 07/20/22 at 1700, Until Discontinu ed, Routine metoprolol No 5mg 5 mg, Slow Univers (LOPRESSOR) 07-20 IV Push, ity of injection 5 21:00: 21:08 ONCE, 1 [place] mg 00 :00 dose, On Medical Sat Branch 07/20/22 at 1600, LORI FENTanyl PF 2021- No 50ug 50 mcg, Un rita (SUBLIMAZE 07-20 Slow IV ity o f (PF)) 19:54: 19:57 Push, [place] injection 00 :00 ONCE, 1 Medical 50 mcg dose, On Branch 07/20/22 at 1500, Routine acetaminoph Yes 650mg 650 mg, Un rita en 07-20 Oral, ity of (TYLENOL) 19:34: Q6HPRN, [place] tablet 650 57 Starting Medic al mg on Sat Branch 07/20/22 at 1434, Until Discontinu ed, Routine, Pain (scale 1-3) acetaminoph 2021- No 650mg 650 mg, U nivers en [...] 00 :00 dose, On Medica l mg [place] [facility] 07/20/22 at 1300, LORI furosemide 2021- [...] [place] mg 00 :00 dose, On Medical [place] [facility] 07/20/22 at 1115, LORI Trelegy Trelegy 2020- No Meghana 1 puff Com mon Ellipta Ellipta 2-12 06-11 [place] [facility] 00:00: 00:00 - [facility] 00 :00 [facility] HydrOXYzine HydrOXYzine Yes Meghana 1 tablet Common HCl HCl 05-11 [place] as needed Spirit 00:00: - [facility] 00 [facility] Ozempic Ozempic 2020- No Meghana 0.5 mg Com mon 05-11 0824 [place] [facility] 00:00: 00:00 - [facility] 00 :00 [facility] Rae Mcbride Yes Meghana as Common 1-02 [place] directed Spirit 00:00: - [facility] 00 [facility] ProAir ProAir Yes Meghana 2 puffs as Comm on RespiClick RespiClick [place] needed [facility] [place] 3 [place] 3 Yes Meghana 1 capsule Com mon [place] [facility] Montelukast Montelukast Yes Meghana 1 tablet Common Sodium Sodium [place] in the [facility] evening [facility] Lipitor Lipitor Yes Meghana 1 tablet Comm on [place] [facility] Losartan Losartan Yes Meghana 1 tablet Co mmon Potassium Potassium [place] [facility]ir it [facility] Metoprolol Metoprolol Yes Meghana 1 tablet Common Tartrate Tartrate [place] with food S pirit [facility] Metformin Metformin Yes Meghana 1 tablet Common HCl HCl [place] with a Spirit meal [facility] Immunizations Ordered Immunization Filled Immunization Date Status Commen ts Source Name Name FLUZONE HIGH DOSE FLUZONE HIGH DOSE 2019-09-14 Completed [facility] OVER 65 OVER 65 00:00:00 [facility] Vital Signs Vital Name Observation Time Observation Value Comments Source Systolic blood 2022-07-28 01:43:00 99 mm[Hg] Univer sity of pressure [facility] Diastolic blood 2022-07-28 01:43:00 58 mm[facility]Hg] [facility] 2022-07-28 01:40:00 97 /min [facility] Body temperature 2022-07-28 01:40:00 36.56 [facility] 2022-07-28 01:40:00 18 /min [facility] Oxygen saturation in 2022-07-28 01:40:00 90 /min [facility] Arterial blood by [facility] Pulse oximetry Branch Body height 2022-07-26 17:49:00 172.7 cm [facility] Body weight 2022-07-26 17:49:00 96.163 kg [facility] BMI 2022-07-26 17:49:00 32.23 kg/m2 [facility] Systolic blood 2022-07-26 23:31:00 102 mm[Hg] Univer sity of pressure [facility] Diastolic blood 2022-07-26 23:31:00 59 mm[Hg] Unive rsity of [facility] Heart rate 2022-07-26 23:31:00 85 /min [facility] Body temperature 2022-07-26 23:31:00 36.56 [facility]vi [facility] Respiratory rate 2022-07-26 23:24:00 19 /min [facility] Oxygen saturation in 2022-07-26 23:24:00 93 /min [facility] Arterial blood by [facility] Pulse oximetry [place] Body height 2022-07-26 17:49:00 172.7 cm [facility] Body weight 2022-07-26 17:49:00 96.163 kg [facility] BMI 2022-07-26 17:49:00 32.23 kg/m2 [facility] Procedures Procedure Date / Time Performing Clinician Source Performed POCT GLUCOSE (AUTOMATED) 2022-07-27 16:45:00 Berna Alcantar [facility] POCT GLUCOSE (AUTOMATED) 2022-07-27 16:45:00 Berna Alcantar [facility] MAGNESIUM 2022-07-27 10:46:00 [facility] PANEL (NA, 2022-07-27 10:46:00 Flora Fox [facility] K, CL, CO2, GLUCOSE, BUN, Medica l Branch CREATININE, CA) N-TERMINAL PRO-BNP 2022-07-27 10:46:00 [facility] 20[facility]-07-27 10:46:00 [facility] PAN[facility] (NA, 2022-07-27 10:46:00 [facility], CL, CO2, GLUCOSE, BUN, Medica l Branch CREATININE, CA) N-TERMINAL PRO-BNP 2022-07-27 10:46:00 Flora Fox of [facility] POCT GLUCOSE (AUTOMATED) 2022-07-27 10:38:00 Keo Alcantarm Uni versity of [facility] POCT GLUCOSE (AUTOMATED) 2022-07-27 10:38:00 KhbettyfeKeom Uni vers[facility] of [facility] POCT GLUCOSE (AUTOMATED) 2022-07-27 04:51:00 KhbettyfeKeom Uni vers[facility] POCT GLUCOSE (AUTOMATED) 2022-07-27 04:51:00 Keo Alcantarm [facility] POCT GLUCOSE (AUTOMATED) 2022-07-27 01:10:00 Keo Alcantarm [facility] POCT GLUCOSE (AUTOMATED) 2022-07-27 01:10:00 KhbettyfeDavidsam Uni vers[facility] of [facility] POCT GLUCOSE (AUTOMATED) 2022-07-26 23:37:00 Keo Alcantarm [facility] POCT GLUCOSE (AUTOMATED) 2022-07-26 23:37:00 Keo Alcantarm [facility] ACTIVATED PARTIAL THRMPLAS 2022-07-26 23:10:00 [facility] ACTIVATED PARTIAL THRMPLAS 2022-07-26 23:10:00 [facility] CARDIAC CATHETERIZATION 2022-07-26 21:16:04 Katharine [facility] ersity of [facility] CARDIAC CATHETERIZATION 2022-07-26 21:16:04 Katharine [facility] ersity of [facility] CARDIAC CATHETERIZATION 2022-07-26 21:16:04 Katharine [facility] ersity of [facility] CARDIAC CATHETERIZATION 2022-07-26 21:16:04 [facility] [place] [facility] CARDIAC CATHETERIZATION 2022-07-26 21:16:04 Katharine [facility] ersity of [facility] CARDIAC CATHETERIZATION 2022-07-26 21:16:04 Katharine [facility] ersity of [facility] CARDIAC CATHETERIZATION 2022-07-26 21:16:04 Katharine [facility] ersity of [facility] CARDIAC CATHETERIZATION 2022-07-26 21:16:04 Katharine [facility] ersity of [facility] CATH PROCEDURE LOG 2022-07-26 20:55:04 Katharine [facility] CATH PROCEDURE LOG 2022-07-26 20:55:04 Katharine [facility] POCT GLUCOSE (AUTOMATED) 2022-07-26 16:20:00 Berna Alcantar [facility] POCT GLUCOSE (AUTOMATED) 2022-07-26 16:20:00 Berna Alcantar [facility] POCT GLUCOSE (AUTOMATED) 2022-07-26 12:30:00 Berna Alcantar [facility] POCT GLUCOSE (AUTOMATED) 2022-07-26 12:30:00 Berna Alcantar [facility] POCT GLUCOSE (AUTOMATED) 2022-07-26 11:08:00 Berna Alcantar [facility] POCT GLUCOSE (AUTOMATED) 2022-07-26 11:08:00 Berna Alcantar [facility] POCT GLUCOSE (AUTOMATED) 2022-07-26 08:52:00 Berna Alcantar [facility] POCT GLUCOSE (AUTOMATED) 2022-07-26 08:52:00 Berna Alcantar [facility] MAGNESIUM 2022-07-26 05:35:00 [facility]OLIC PANEL (NA, 2022-07-26 05:35:00 Tobias [facility] K, CL, CO2, GLUCOSE, BUN, Medica l Branch CREATININE, CA) ACTIVATED PARTIAL THRMPLAS 2022-07-26 05:35:00 Evelio Soni [facility] EXTRA TUBE LAV 2022-07-26 05:35:00 [facility] MAGNESIUM 2022-07-26 05:35:00 Tobias [facility] BASIC METABOLIC PANEL (NA, 2022-07-26 05:35:00 Tobias [facility] K, CL, CO2, GLUCOSE, BUN, Medica l Branch CREATININE, CA) ACTIVATED PARTIAL THRMPLAS 2022-07-26 05:35:00 Evelio Soni [facility] EXTRA TUBE LAV 2022-07-26 05:35:00 Katharine [facility] POCT GLUCOSE (AUTOMATED) 2022-07-26 05:20:00 Berna Alcantar [facility]SE (AUTOMATED) 2022-07-26 05:20:00 Berna [facility]ar [facility] PO[facility] GLUCOSE (AUTOMATED) 2022-07-26 01:45:00 Berna [facility]ar [facility] PO[facility] GLUCOSE (AUTOMATED) 2022-07-26 01:45:00 Berna [facility]antar [facility] MAGNES[facility]UM 2022-07-25 22:15:00 Tobias [facility] BASIC METABOLIC PANEL (NA, 2022-07-25 22:15:00 Tobias [facility] K, CL, CO2, GLUCOSE, BUN, Medica l Branch CREATININE, CA) ACTIVATED PARTIAL THRMPLAS 2022-07-25 22:15:00 Evelio Soni [facility] MAGNESIUM 2022-07-25 22:15:00 Tobias [facility] BASIC METABOLIC PANEL (NA, 2022-07-25 22:15:00 Tobias [facility] K, CL, CO2, GLUCOSE, BUN, Medica l Branch CREATININE, CA) ACTIVATED PARTIAL THRMPLAS 2022-07-25 22:15:00 Evelio Soni niversalberto [facility] POCT GLUCOSE (AUTOMATED) 2022-07-25 21:22:00 Berna Alcantar [facility] POCT GLUCOSE (AUTOMATED) 2022-07-25 21:22:00 Berna Alcantar [facility] POCT GLUCOSE (AUTOMATED) 2022-07-25 20:46:00 Berna Alcantar [facility] POCT GLUCOSE (AUTOMATED) 2022-07-25 20:46:00 Berna Alcantar [facility] POCT GLUCOSE (AUTOMATED) 2022-07-25 17:09:00 Berna Alcantar [facility] POCT GLUCOSE (AUTOMATED) 2022-07-25 17:09:00 Berna Alcantar [facility] HB ECG ROUTINE & RHYTHM 2022-07-25 14:53:13 Berna Collado [facility] ACTIVATED PARTIAL THRMPLAS 2022-07-25 14:53:00 [facility] ACTIVATED PARTIAL THRMPLAS 2022-07-25 14:53:00 Evelio Soni niversalberto [facility] POCT GLUCOSE (AUTOMATED) 2022-07-25 13:12:00 Berna Alcantar [facility] POCT GLUCOSE (AUTOMATED) 2022-07-25 13:12:00 Berna Alcantar [facility] MAGNESIUM 2022-07-25 11:36:00 Tobias [facility] BASIC METABOLIC PANEL (NA, 2022-07-25 11:36:00 Tobias [facility] K, CL, CO2, GLUCOSE, BUN, Medica l Branch CREATININE, CA) CBC WITH DIFF 2022-07-25 11:36:00 Tobias [facility] MAGNESIUM 2022-07-25 11:36:00 Tobias [facility] BASIC METABOLIC PANEL (NA, 2022-07-25 11:36:00 Tobias [facility] K, CL, CO2, GLUCOSE, BUN, Medica l Branch CREATININE, CA) CBC WITH DIFF 2022-07-25 11:36:00 Tobias [facility] ACTIVATED PARTIAL THRMPLAS 2022-07-25 05:15:00 Evelio Soni [facility] ACTIVATED PARTIAL THRMPLAS 2022-07-25 05:15:00 [facility]SE (AUTOMATED) 2022-07-25 01:58:00 Berna Alcantar [facility] POCT GLUCOSE (AUTOMATED) 2022-07-25 01:58:00 Berna Alcantar [facility] MAGNESIUM 2022-07-24 22:34:00 Tobias [facility] BASIC METABOLIC PANEL (NA, 2022-07-24 22:34:00 Tobias [facility] K, CL, CO2, GLUCOSE, BUN, Medica l Branch CREATININE, CA) ACTIVATED PARTIAL THRMPLAS 2022-07-24 22:34:00 Evelio Soni [facility] MAGNESIUM 2022-07-24 22:34:00 Tobias [facility] BASIC METABOLIC PANEL (NA, 2022-07-24 22:34:00 Tobias [facility] K, CL, CO2, GLUCOSE, BUN, Medica l Branch CREATININE, CA) ACTIVATED PARTIAL THRMPLAS 2022-07-24 22:34:00 Evelio Soni [facility] POCT GLUCOSE (AUTOMATED) 2022-07-24 20:43:00 Berna Alcantar [facility] POCT GLUCOSE (AUTOMATED) 2022-07-24 20:43:00 Berna Alcantar [facility] POCT GLUCOSE (AUTOMATED) 2022-07-24 17:11:00 Berna Alcantar [facility] POCT GLUCOSE (AUTOMATED) 2022-07-24 17:11:00 Berna Alcantar [facility] POCT GLUCOSE (AUTOMATED) 2022-07-24 14:11:00 Berna Alcantar [facility] POCT GLUCOSE (AUTOMATED) 2022-07-24 14:11:00 Berna Alcantar [facility] ACTIVATED PARTIAL THRMPLAS 2022-07-24 11:37:00 [facility] ACTIVATED PARTIAL THRMPLAS 2022-07-24 11:37:00 [facility] 2022-07-24 05:51:00 Evelio Soni [facility] [place] BASIC METABOLIC PANEL (NA, 2022-07-24 05:51:00 [facility], CL, CO2, GLUCOSE, BUN, Medica l Branch CREATININE, CA) PROTHROMBIN TIME / INR 2022-07-24 05:51:00 Evelio Soni [facility] ACTIVATED PARTIAL THRMPLAS 2022-07-24 05:51:00 Evelio Soni [facility] MAGNESIUM 2022-07-24 05:51:00 Evelio Soni [facility] BASIC METABOLIC PANEL (NA, 2022-07-24 05:51:00 [facility], CL, CO2, GLUCOSE, BUN, Medica l Branch CREATININE, CA) PROTHROMBIN TIME / INR 2022-07-24 05:51:00 Evelio Soni [facility] ACTIVATED PARTIAL THRMPLAS 2022-07-24 05:51:00 Evelio Soni [facility] POCT GLUCOSE (AUTOMATED) 2022-07-24 01:53:00 Atul Stephens [facility] POCT GLUCOSE (AUTOMATED) 2022-07-24 01:53:00 Atul Stephens [facility] POCT GLUCOSE (AUTOMATED) 2022-07-23 21:31:00 Atul Stephens [facility] POCT GLUCOSE (AUTOMATED) 2022-07-23 21:31:00 Atul Stephens [facility] POCT GLUCOSE (AUTOMATED) 2022-07-23 17:08:00 Atul Stephens [facility] PO[facility]SE (AUTOMATED) 2022-07-23 17:08:00 Atul Stephens [facility] POCT GLUCOSE (AUTOMATED) 2022-07-23 12:46:00 Atul Stephens [facility] POCT GLUCOSE (AUTOMATED) 2022-07-23 12:46:00 Atul Stephens [facility] MAGNESIUM 2022-07-23 09:15:00 [facility] BASIC METABOLIC PANEL (NA, 2022-07-23 09:15:00 [facility], CL, CO2, GLUCOSE, BUN, Medica l Branch CREATININE, CA) CBC WITH DIFF 2022-07-23 09:15:00 [facility] N-TERMINAL PRO-BNP 2022-07-23 09:15:00 George Vizcaino [facility] MAGNESIUM 2022-07-23 09:15:00 [facility] BASIC METABOLIC PANEL (NA, 2022-07-23 09:15:00 [facility] K, CL, CO2, GLUCOSE, BUN, Medica l Branch CREATININE, CA) CBC WITH DIFF 2022-07-23 09:15:00 [facility] N-TERMINAL PRO-BNP 2022-07-23 09:15:00 George Vizcaino [facility] POCT GLUCOSE (AUTOMATED) 2022-07-23 02:12:00 Atul Stephens [facility] POCT GLUCOSE (AUTOMATED) 2022-07-23 02:12:00 Atul Stephens [facility] POCT GLUCOSE (AUTOMATED) 2022-07-22 21:12:00 Atul Stephens [facility] POCT GLUCOSE (AUTOMATED) 2022-07-22 21:12:00 Atul Stephens [facility] POCT GLUCOSE (AUTOMATED) 2022-07-22 16:30:00 Atul Stephens [facility] POCT GLUCOSE (AUTOMATED) 2022-07-22 16:30:00 Atul Stephens [facility] PO[facility] GLUCOSE (AUTOMATED) 2022-07-22 12:51:00 Atul Stephens [facility] POCT GLUCOSE (AUTOMATED) 2022-07-22 12:51:00 Atul Stephens [facility] PHOSPHORUS 2022-07-22 08:19:00 Atul Stephens [facility] MAGNESIUM 2022-07-22 08:19:00 Angelo [facility] HEPATIC FUNCTION PANEL 2022-07-22 08:19:00 Atul Stephens [facility] ([id number]) (ALB,T.PRO,BILI Medical Branch T,BU/BC,ALT,AST,ALK PHOS) BASIC METABOLIC PANEL (NA, 2022-07-22 08:19:00 Atul Stephens [facility] K, CL, CO2, GLUCOSE, BUN, Medica l Branch CREATININE, CA) CBC WITH DIFF 2022-07-22 08:19:00 [facility] 2022-07-22 08:19:00 [facility] 2022-07-22 08:19:00 Atul Stephens [facility] MAGNESIUM 2022-07-22 08:19:00 Angelo [facility] HEPATIC FUNCTION PANEL 2022-07-22 08:19:00 Atul Stephens [facility] ([id number]) (ALB,T.PRO,BILI Medical Branch T,BU/BC,ALT,AST,ALK PHOS) BASIC METABOLIC PANEL (NA, 2022-07-22 08:19:00 Atul Stephens [facility] K, CL, CO2, GLUCOSE, BUN, Medica l Branch CREATININE, CA) CBC WITH DIFF 2022-07-22 08:19:00 Atul Stephens o f [facility] N-TERMINAL PRO-BNP 2022-07-22 08:19:00 [facility] PO[facility]UCOSE (AUTOMATED) 2022-07-22 01:44:00 Atul Stephens versalberto of [facility] POCT GLUCOSE (AUTOMATED) 2022-07-22 01:44:00 Atul Stephens versalberto of [facility] POCT GLUCOSE (AUTOMATED) 2022-07-21 21:52:00 Atul Stephens of [facility] POCT GLUCOSE (AUTOMATED) 2022-07-21 21:52:00 Atul Stephens versity of [facility] POCT GLUCOSE (AUTOMATED) 2022-07-21 16:43:00 Atul Stephens versalberto of [facility] POCT GLUCOSE (AUTOMATED) 2022-07-21 16:43:00 [facility]ul [facility] TRANSTHORACIC ECHO (TTE) 2022-07-21 15:28:00 Atul Stephens [facility] W/ CONTRAST Medical [facility] TRANSTHORACIC ECHO (TTE) 2022-07-21 15:28:00 Atul Stephens [facility] W/ CONTRAST [facility] POCT GLUCOSE (AUTOMATED) 2022-07-21 15:00:00 Atul Stephens versalberto of [facility] POCT GLUCOSE (AUTOMATED) 2022-07-21 15:00:00 Atul Stephens versity of [facility] POCT GLUCOSE (AUTOMATED) 2022-07-21 13:04:00 Atul Stephens versalberto of [facility] POCT GLUCOSE (AUTOMATED) 2022-07-21 13:04:00 Atul [facility] MAGNESIUM 2022-07-21 09:41:00 Atul Stephens [facility] TROPONIN I 2022-07-21 09:41:00 Atul Stephens [facility] BASIC METABOLIC PANEL (NA, 2022-07-21 09:41:00 Atul Stephens [facility] K, CL, CO2, GLUCOSE, BUN, Medica l Branch CREATININE, CA) LIPID PANEL ([id number])(TOTAL 2022-07-21 09:41:00 Ana Luisa Grimm [facility]IG[facility], HDL) CBC WITH DIFF 2022-07-21 09:41:00 Angelo [facility] N-TERMINAL PRO-BNP 2022-07-21 09:41:00 Atul Stephens [facility] MAGNESIUM 2022-07-21 09:41:00 Angelo [facility] TROPONIN I 2022-07-21 09:41:00 Atul Stephens [facility] BASIC METABOLIC PANEL (NA, 2022-07-21 09:41:00 Atul Stephens [facility] K, CL, CO2, GLUCOSE, BUN, Medica l Branch CREATININE, CA) LIPID PANEL ([id number])(TOTAL 2022-07-21 09:41:00 Ana Luisa Grimm [facility] CHOLESTEROL, Medical [place] TRIGLYCERIDES, HDL) CBC WITH DIFF 2022-07-21 09:41:00 Atul Stephens [facility] N-TERMINAL PRO-BNP 2022-07-21 09:41:00 Atul Stephens [facility] POCT GLUCOSE (AUTOMATED) 2022-07-21 04:09:00 Atul Stephens [facility] POCT GLUCOSE (AUTOMATED) 2022-07-21 04:09:00 Atul Stephens [facility] BLOOD CULTURE SCREEN 2022-07-21 01:45:00 Atul Stephens [facility] BLOOD CULTURE WORKUP 2022-07-21 01:45:00 Atul Stephens [facility] GRAM POSITIVE BLOOD 2022-07-21 01:45:00 Atul Stephens [facility] PATHOGENS DNA [facility] PROBE-AEROBIC BLOOD CULTURE SCREEN 2022-07-21 01:45:00 Atul Stephens [facility] BLOOD CULTURE WORKUP 2022-07-21 01:45:00 Atul Stephens [facility] GRAM POSITIVE BLOOD 2022-07-21 01:45:00 Atul Stephens [facility] PATHOGENS DNA [facility] PROBE-AEROBIC POCT GLUCOSE (AUTOMATED) 2022-07-21 01:26:00 Atul Stephens [facility] POCT GLUCOSE (AUTOMATED) 2022-07-21 01:26:00 Atul Stephens [facility] BLOOD CULTURE SCREEN 2022-07-20 23:43:00 Atul Stephens [facility] BLOOD CULTURE SCREEN 2022-07-20 23:43:00 Atul Stephens [facility] POCT GLUCOSE (AUTOMATED) 2022-07-20 22:24:00 Atul Stephens [facility] POCT GLUCOSE (AUTOMATED) 2022-07-20 22:24:00 Atul Stephens [facility] URINALYSIS 2022-07-20 17:41:[address] [facility] URINALYSIS 2022-07-20 17:41:[address] [facility] XR CHEST 1 VW 2022-07-20 16:16:00 Charlene Butt [facility] XR CHEST 1 VW 2022-07-20 16:16:[address] [facility] TROPONIN I 2022-07-20 16:10:[address] [facility] COMP. METABOLIC PANEL 2022-07-20 16:10:00 Charlene Butt [facility] ([id number]) [facility] CBC WITH DIFF 2022-07-20 16:10:[address] [facility] GLYCOSYLATED HEMOGLOBIN 2022-07-20 16:10:00 Atul Stephens [facility] (A1C) Medical Branch PROTHROMBIN TIME / INR 2022-07-20 16:10:00 Charlene Butt [facility] ACTIVATED PARTIAL THRMPLAS 2022-07-20 16:10:00 Saniya Butt [facility] N-TERMINAL PRO-BNP 2022-07-20 16:10:00 Charlene Butt [facility] COVID-19 (ID NOW RAPID 2022-07-20 16:10:00 Charlene Butt [facility] TESTING) Medical Branch LAB ONLY COVID 2022-07-20 16:10:00 Charlene Butt [facility] TROPONIN I 2022-07-20 16:10:00 Charlene Butt [facility] COMP. METABOLIC PANEL 2022-07-20 16:10:00 Charlene Butt [facility] ([id number]) Medical Branch CBC WITH DIFF 2022-07-20 16:10:00 Charlene Butt [facility] GLYCOSYLATED HEMOGLOBIN 2022-07-20 16:10:00 Atul Stephens [facility] (A1C) Medical Branch PROTHROMBIN TIME / INR 2022-07-20 16:10:00 Charlene Butt [facility] ACTIVATED PARTIAL THRMPLAS 2022-07-20 16:10:00 Saniya Butt [facility] N-TERMINAL PRO-BNP 2022-07-20 16:10:00 Charlene Butt [facility] COVID-19 (ID NOW RAPID 2022-07-20 16:10:00 Charlene Butt [facility] TEST[facility]) Medical Branch LAB ONLY COVID 2022-07-20 16:10:00 Charlene Butt [facility] INTERPRETATION [facility] Branch HB ECG ROUTINE & RHYTHM 2022-07-20 16:05:41 Charlene Butt [facility] HB ECG ROUTINE & RHYTHM 2022-07-20 16:05:41 Charlene Butt [facility] NOTICE OF PRIVACY 2022-07-20 15:52:39 Doctor Unassigned, [facility] Medical [place] NOTICE OF PRIVACY 2022-07-20 15:52:39 Doctor Unassigned, [facility] Medical Branch HOSPITAL ADMISSION 2022-07-20 05:01:00 Doctor Unassigned, [facility] Medical Branch HOSPITAL ADMISSION 2022-07-20 05:01:00 Doctor Unassigned, [facility] Name Medical [place] Encounters Start End Encounter Admission Attending Care Care Encounter Source Date/Time Date/Time Type Type Clinicians Facility Department ID 2021-12-05 Outpatient Lucy[facility] [id number] Common 11:06:38 Meghana [id number] [facility] 2022-08-15 2022-08-28 Inpatient 3 SHAHEED KimSAMUEL [facility] [id number] [facility]a 18:17:00 12:00:00 Jose [facility] [place] 2022-07-29 2022-07-29 Transition MUMTAZ Foster [id number] Univers 00:00:00 00:00:00 of Care [place] [id number] [id number] [id number] [facility] 403 Branch 2022-07-20 2022-07-27 Hospital Charlene Butt [id number] Univers 11:00:00 21:45:00 Encounter Atul Stephens [id number] [facility] [id number] .686 [place] [id number] [facility] 089 Branch 2022-07-20 2022-07-27 Inpatient X [facility] [id number] Univers 11:00:00 21:45:00 [facility] 2022-07-26 2022-07-26 Surgery JAMAL Cannon [id number] Univers 18:03:00 21:03:00 Orlando GORDON [id number] it y of [place] [facility] [id number] [facility] [place] [facility] as [id number] [facility] 840 Branch 2020-04-04 2020-04-04 [facility] [id number] Common 13:00:00 13:00:[address] [facility] 2020-03-22 2020-03-22 [facility] [id number] Common 15:20:00 15:20:[address] [facility] 2019-12-22 2019-12-22 [facility] [id number] Common 10:40:00 10:40:[address] [facility] 2019-12-15 2019-12-15 [facility] [id number] Common 14:00:00 14:00:[address] [facility] 2019-09-14 2019-09-14 [facility] [id number] Common 13:20:00 13:20:[address] [facility] 2019-05-11 2019-05-11 [facility] [id number] Common 13:00:00 13:00:[address] [facility] 2018-11-11 2018-11-11 [facility] [id number] Common 13:00:00 13:00:[address] [facility] 2018-10-19 2018-10-19 [facility] [id number] Common 08:30:00 08:30:[address] [facility] 2018-04-22 2018-04-22 [facility] [id number] Common 14:00:00 14:00:[address] [facility] Results Test Description Test Time Test Comments Results Result Comments Source TROP-I HIGH SENSITIVITY 2022-08-16 17:56:00 Test Item Value Reference Range Interpretation Comme nts TROP-I HIGH 15.8 0-54 N CAUTION: Units of the current test methodology (ng/L) differfrom the SENSITIVITY ng/L prior test meth odology (ng/mL) by a factor of (test code = 1000. 99th TROPIHS) Percentile Uppe r Reference Limit (URL):Females: 34 ng/LMales: 54 ng/L In order to dis tinguish acute elevations of high sensitivitytroponin from other clin ical conditions, the FourthUniversal Definition of Myocardial Infa rction stressesclinical assessment and the demonstration o f a rise and/orfall in serial troponin results above the URL. Result s from different methodologies should not be comparedto one another as quantitative results and URLs may varyby method. POCT GLUCOSE (AUTOMATED)2022-07-27 17:05:15 Test Item Value Reference Range Interpretation Comments POCT GLU (test code = 1273890353) 264 mg/dL 70-110 H Lab Interpretation (test code = Abnormal 94283-5) [facility] GLUCOSE (AUTOMATED)2022-07-27 17:05:15 Test Item Value Reference Range Interpretation Comments POCT GLU (test code = [id number]) 264 mg/dL 70-110 H Lab Interpretation (test code = Abnormal 00465-6) [facility] [id number] 15:17:32 Test Item Value Reference Range Interpretation Comments NT-proBNP (test code 1090 pg/mL See_Comment H [Autom ated = [id number]) message] The system which generated this result transmitted reference range : <=125. The reference range was not used to interpret this result as normal/abnormal . ROSLYN (test code = ROSLYN) Biotin has been reported to cause a negative bias, interpret results relative to patient's use of biotin. Lab Interpretation Abnormal (test code = 55802-7) [id number] 15:17:32 Test Item Value Reference Range Interpretation Comments NT-proBNP (test code 1090 pg/mL See_Comment H [Autom ated = [id number]) message] The system which generated this result transmitted reference range : <=125. The reference range was not used to interpret this result as normal/abnormal . ROSLYN (test code = ROSLYN) Biotin has been reported to cause a negative bias, interpret results relative to patient's use of biotin. Lab Interpretation Abnormal (test code = 26522-7) [facility] 11:45:45 Test Item Value Reference Range Interpretation Comments MAGNESIUM (test code = 1524165474) 1.9 mg/dL 1.7-2.4 Lab Interpretation (test code = Normal 56373-1) [facility] (NA, K, CL, CO2, GLUCOSE, BUN, CREATININE, CA)2022-07-27 11:45:45 Test Item Value Reference Range Interpretation Comments NA (test code = 130 mmol/L 135-145 L 6869204394) K (test code = 4.1 mmol/L 3.5-5 3900851761) CL (test code = 89 mmol/L 98-108 L 5151526547) CO2 TOTAL (test code = 37 mmol/L 23-31 H 4359271020) AGAP (test code = 2-16 4677950469) BUN (test code = 32 mg/dL 7-23 H 5508305103) GLUCOSE (test code = 180 mg/dL 70-110 H 6930996380) CREATININE (test code = 0.81 mg/dL 0.6-1.25 8025426218) CALCIUM (test code = 8.5 mg/dL 8.6-10.6 L 1483642336) eGFR (test code = mL/min/1.73m2 4197277671) ROSLYN (test code = ROSLYN) Association of [...] tests). Lab Interpretation Abnormal (test code = 69572-0) [facility] 11:45:45 Test Item Value Reference Range Interpretation Comments MAGNESIUM (test code = 3963883572) 1.9 mg/dL 1.7-2.4 Lab Interpretation (test code = Normal 17004-1) [facility] (NA, K, CL, CO2, GLUCOSE, BUN, CREATININE, CA)2022-07-27 11:45:45 Test Item Value Reference Range Interpretation Comments NA (test code = 130 mmol/L 135-145 L 5421085735) K (test code = 4.1 mmol/L 3.5-5 2638190111) CL (test code = 89 mmol/L 98-108 L 4231930621) CO2 TOTAL (test code = 37 mmol/L 23-31 H 4976015899) AGAP (test code = 2-16 2338560161) BUN (test code = 32 mg/dL 7-23 H 3265070376) GLUCOSE (test code = 180 mg/dL 70-110 H 3977951022) CREATININE (test code = 0.81 mg/dL 0.6-1.25 0238497625) CALCIUM (test code = 8.5 mg/dL 8.6-10.6 L 1030476012) eGFR (test code = mL/min/1.73m2 2747318912) ROSLYN (test code = ROSLYN) Association of [...] tests). Lab Interpretation Abnormal (test code = 07449-3) [facility] GLUCOSE (AUTOMATED)2022-07-27 10:39:46 Test Item Value Reference Range Interpretation Comments POCT GLU (test code = 6343674670) 198 mg/dL 70-110 H Lab Interpretation (test code = Abnormal 27232-1) [facility] GLUCOSE (AUTOMATED)2022-07-27 10:39:46 Test Item Value Reference Range Interpretation Comments POCT GLU (test code = 6683664066) 198 mg/dL 70-110 H Lab Interpretation (test code = Abnormal 49014-1) [facility] GLUCOSE (AUTOMATED)2022-07-27 04:52:50 Test Item Value Reference Range Interpretation Comments POCT GLU (test code = 6042332774) 213 mg/dL 70-110 H Lab Interpretation (test code = Abnormal 71561-3) [facility] GLUCOSE (AUTOMATED)2022-07-27 04:52:50 Test Item Value Reference Range Interpretation Comments POCT GLU (test code = 3282301111) 213 mg/dL 70-110 H Lab Interpretation (test code = Abnormal 68455-7) [facility] GLUCOSE (AUTOMATED)2022-07-27 01:10:58 Test Item Value Reference Range Interpretation Comments POCT GLU (test code = 6752812249) 284 mg/dL 70-110 H Lab Interpretation (test code = Abnormal 76360-0) [facility] GLUCOSE (AUTOMATED)2022-07-27 01:10:58 Test Item Value Reference Range Interpretation Comments POCT GLU (test code = 8796186374) 284 mg/dL 70-110 H Lab Interpretation (test code = Abnormal 33883-1) [facility] GLUCOSE (AUTOMATED)2022-07-26 23:39:10 Test Item Value Reference Range Interpretation Comments POCT GLU (test code = 5994884910) 199 mg/dL 70-110 H Lab Interpretation (test code = Abnormal 57812-0) [facility] GLUCOSE (AUTOMATED)2022-07-26 23:39:10 Test Item Value Reference Range Interpretation Comments POCT GLU (test code = 5338494111) 199 mg/dL 70-110 H Lab Interpretation (test code = Abnormal 90342-1) [facility] 23:32:33 Test Item Value Reference Range Interpretation Comments APTT Patient (test code = See_Comment [ Automated message] 3173-2) The system [employer] generated this result transmitted ref erence range: 26 - 36 Seconds. The re ference range was not u sed to interpret this result as normal/abnor mal. Lab Interpretation (test Normal code = 00352-7) [facility]2022-07-26 23:32:33 Test Item Value Reference Range Interpretation Comments APTT Patient (test code = See_Comment [ Automated message] 3173-2) The system [employer] generated this result transmitted ref erence range: 26 - 36 Seconds. The re ference range was not u sed to interpret this result as normal/abnor mal. Lab Interpretation (test Normal code = 22290-4) [facility]2022-07-26 16:22:25 Test Item Value Reference Range Interpretation Comments POCT GLU (test code = 0692108436) 167 mg/dL 70-110 H Lab Interpretation (test code = Abnormal 34849-8) [facility]2022-07-26 16:22:25 Test Item Value Reference Range Interpretation Comments POCT GLU (test code = 3194026305) 167 mg/dL 70-110 H Lab Interpretation (test code = Abnormal 25697-2) [facility]2022-07-26 12:31:04 Test Item Value Reference Range Interpretation Comments POCT GLU (test code = 0684761990) 164 mg/dL 70-110 H Lab Interpretation (test code = Abnormal 23657-6) [facility] GLUCOSE (AUTOMATED)2022-07-26 12:31:04 Test Item Value Reference Range Interpretation Comments POCT GLU (test code = 4667147775) 164 mg/dL 70-110 H Lab Interpretation (test code = Abnormal 39859-7) [facility]2022-07-26 11:09:37 Test Item Value Reference Range Interpretation Comments POCT GLU (test code = 8603097892) 184 mg/dL 70-110 H Lab Interpretation (test code = Abnormal 18466-6) [facility]2022-07-26 11:09:37 Test Item Value Reference Range Interpretation Comments POCT GLU (test code = 9701815443) 184 mg/dL 70-110 H Lab Interpretation (test code = Abnormal 38421-3) [facility]2022-07-26 08:53:59 Test Item Value Reference Range Interpretation Comments POCT GLU (test code = 1817715390) 200 mg/dL 70-110 H Lab Interpretation (test code = Abnormal 15173-3) [facility]2022-07-26 08:53:59 Test Item Value Reference Range Interpretation Comments POCT GLU (test code = 1396901042) 200 mg/dL 70-110 H Lab Interpretation (test code = Abnormal 51462-3) [facility] GLUCOSE (AUTOMATED)2022-07-26 05:20:56 Test Item Value Reference Range Interpretation Comments POCT GLU (test code = 7957499509) 197 mg/dL 70-110 H Lab Interpretation (test code = Abnormal 17040-6) [facility] GLUCOSE (AUTOMATED)2022-07-26 05:20:56 Test Item Value Reference Range Interpretation Comments POCT GLU (test code = 9863708780) 197 mg/dL 70-110 H Lab Interpretation (test code = Abnormal 81864-1) [facility] CULTURE [id number] 03:01:42 Test Item Value Reference Range Interpretation Comments Blood Culture-Aerobic No organisms No growth Previo us (test code = 16491-5) isolated prelim inary verified result was Culture In Progress on 07/21/2022 at 11 10 CDTPrevious preliminary verified result was No growth a t 24 hours on 07/21/2022 at 22 CDTPrevious preliminary verified result was No growth a t 48 hours on 07/22/2022 at 22 CDTPrevious preliminary verified result was No growth a t 72 hours on 07/23/2022 at 22 02 CDT Blood No organisms No growth Previous Culture-Anaerobic isolated preliminar y (test code = 24915-8) verifi ed result was Culture In Progress on 07/21/2022 at 11 10 CDTPrevious preliminary verified result was No growth a t 24 hours on 07/21/2022 at 22 01 CDTPrevious preliminary verified result was No growth a t 48 hours on 07/22/2022 at 22 CDTPrevious preliminary verified result was No growth a t 72 hours on 07/23/2022 at 22 02 CDT Lab Interpretation Normal (test code = 15435-6) [facility] CULTURE [id number] 03:01:42 Test Item Value Reference Range Interpretation Comments Blood Culture-Aerobic No organisms No growth Previo us (test code = 99281-2) isolated prelim inary verified result was Culture In Progress on 07/21/2022 at 01 CDTPrevious preliminary verified result was No growth a t 24 hours on 07/21/2022 at 22 01 CDTPrevious preliminary verified result was No growth a t 48 hours on 07/22/2022 at 22 01 CDTPrevious preliminary verified result was No growth a t 72 hours on 07/23/2022 at 22 02 CDT Blood No organisms No growth Previous Culture-Anaerobic isolated preliminar y (test code = 74358-9) verifi ed result was Culture In Progress [...] CDT Lab Interpretation Normal (test code = 27747-3) [facility] GLUCOSE (AUTOMATED)2022-07-26 01:46:28 Test Item Value Reference Range Interpretation Comments POCT GLU (test code = 8451337491) 142 mg/dL 70-110 H Lab Interpretation (test code = Abnormal 58072-9) [facility] GLUCOSE (AUTOMATED)2022-07-26 01:46:28 Test Item Value Reference Range Interpretation Comments POCT GLU (test code = 4936717684) 142 mg/dL 70-110 H Lab Interpretation (test code = Abnormal 85645-8) [facility] GLUCOSE (AUTOMATED)2022-07-25 21:23:27 Test Item Value Reference Range Interpretation Comments POCT GLU (test code = 2734641752) 159 mg/dL 70-110 H Lab Interpretation (test code = Abnormal 84908-4) [facility] GLUCOSE (AUTOMATED)2022-07-25 21:23:27 Test Item Value Reference Range Interpretation Comments POCT GLU (test code = 6228808453) 159 mg/dL 70-110 H Lab Interpretation (test code = Abnormal 71361-9) [facility] GLUCOSE (AUTOMATED)2022-07-25 20:47:32 Test Item Value Reference Range Interpretation Comments POCT GLU (test code = 3935844391) 151 mg/dL 70-110 H Lab Interpretation (test code = Abnormal 20670-5) [facility] GLUCOSE (AUTOMATED)2022-07-25 20:47:32 Test Item Value Reference Range Interpretation Comments POCT GLU (test code = 9437554989) 151 mg/dL 70-110 H Lab Interpretation (test code = Abnormal 55545-3) [facility] GLUCOSE (AUTOMATED)2022-07-25 17:16:01 Test Item Value Reference Range Interpretation Comments POCT GLU (test code = 0836655392) 389 mg/dL 70-110 H Lab Interpretation (test code = Abnormal 89070-3) [facility] GLUCOSE (AUTOMATED)2022-07-25 17:16:01 Test Item Value Reference Range Interpretation Comments POCT GLU (test code = 0544739906) 389 mg/dL 70-110 H Lab Interpretation (test code = Abnormal 63495-5) [facility]2022-07-25 15:08:51 Test Item Value Reference Range Interpretation Comments APTT Patient (test code = See_Comment [ Automated message] 3173-2) The system [employer] generated this result transmitted ref erence range: 26 - 36 Seconds. The re ference range was not u sed to interpret this result as normal/abnor mal. Lab Interpretation (test Normal code = 69628-9) [facility]2022-07-25 15:08:51 Test Item Value Reference Range Interpretation Comments APTT Patient (test code = See_Comment [ Automated message] 3173-2) The system [employer] generated this result transmitted ref erence range: 26 - 36 Seconds. The re ference range was not u sed to interpret this result as normal/abnor mal. Lab Interpretation (test Normal code = 33374-8) [facility] GLUCOSE (AUTOMATED)2022-07-25 13:22:34 Test Item Value Reference Range Interpretation Comments POCT GLU (test code = 3226289514) 168 mg/dL 70-110 H Lab Interpretation (test code = Abnormal 31784-6) [facility] GLUCOSE (AUTOMATED)2022-07-25 13:22:34 Test Item Value Reference Range Interpretation Comments POCT GLU (test code = 3296324627) 168 mg/dL 70-110 H Lab Interpretation (test code = Abnormal 72341-1) [facility] GLUCOSE (AUTOMATED)2022-07-25 01:59:34 Test Item Value Reference Range Interpretation Comments POCT GLU (test code = 5824473042) 202 mg/dL 70-110 H Lab Interpretation (test code = Abnormal 60377-1) [facility]22-[facility]-25 01:59:34 Test Item Value Reference Range Interpretation Comments POCT GLU (test code = 6930780685) 202 mg/dL 70-110 H Lab Interpretation (test code = Abnormal 30785-1) [facility] METABOLIC PANEL (NA, K, CL, CO2, GLUCOSE, BUN, CREATININE, CA)2022-07-24 23:06:12 Test Item Value Reference Range Interpretation Comments NA (test code = 135 mmol/L 135-145 0084240851) K (test code = 4.1 mmol/L 3.5-5 0833955865) CL (test code = 95 mmol/L 98-108 L 6949397820) CO2 TOTAL (test code = 39 mmol/L 23-31 H 8254146979) AGAP (test code = 2-16 L 3953725315) BUN (test code = 16 mg/dL 7-23 9581277732) GLUCOSE (test code = 140 mg/dL 70-110 H 8624107617) CREATININE (test code = 0.59 mg/dL 0.6-1.25 L 4064086121) CALCIUM (test code = 8.4 mg/dL 8.6-10.6 L 7756870090) eGFR (test code = mL/min/1.73m2 3846163426) ROSLYN (test code = ROSLYN) Association of [...] tests). Lab Interpretation Abnormal (test code = 72140-7) [facility] 23:06:12 Test Item Value Reference Range Interpretation Comments MAGNESIUM (test code = 2730637852) 2.1 mg/dL 1.7-2.4 Lab Interpretation (test code = Normal 47381-3) [facility] (NA, K, CL, CO2, GLUCOSE, BUN, CREATININE, CA)2022-07-24 23:06:12 Test Item Value Reference Range Interpretation Comments NA (test code = 135 mmol/L 135-145 0332082805) K (test code = 4.1 mmol/L 3.5-5 5631768606) CL (test code = 95 mmol/L 98-108 L 7681045254) CO2 TOTAL (test code = 39 mmol/L 23-31 H 7525724613) AGAP (test code = 2-16 L 4133348165) BUN (test code = 16 mg/dL 7-23 1229759274) GLUCOSE (test code = 140 mg/dL 70-110 H 7468609063) CREATININE (test code = 0.59 mg/dL 0.6-1.25 L 9999507996) CALCIUM (test code = 8.4 mg/dL 8.6-10.6 L 3961832857) eGFR (test code = mL/min/1.73m2 5025405281) ROSLYN (test code = ROSLYN) Association of [...] tests). Lab Interpretation Abnormal (test code = 30627-9) [facility] 23:06:12 Test Item Value Reference Range Interpretation Comments MAGNESIUM (test code = 2099565561) 2.1 mg/dL 1.7-2.4 Lab Interpretation (test code = Normal 15888-5) [facility] (for use with Heparin Infusion)2022-07-24 23:00:29 Test Item Value Reference Range Interpretation Comments APTT Patient (test code See_Comment H [Au tomated message] = 3173-2) The system [employer] generated this result transmitted ref erence range: 26 - 36 Seconds. The reference range was not used to int erpret this result as normal/abnormal . Lab Interpretation (test Abnormal code = 22585-6) [facility] (for use with Heparin Infusion)2022-07-24 23:00:29 Test Item Value Reference Range Interpretation Comments APTT Patient (test code See_Comment H [Au tomated message] = 3173-2) The system [employer] generated this result transmitted ref erence range: 26 - 36 Seconds. The reference range was not used to int erpret this result as normal/abnormal . Lab Interpretation (test Abnormal code = 97968-8) [facility] GLUCOSE (AUTOMATED)2022-07-24 20:44:06 Test Item Value Reference Range Interpretation Comments POCT GLU (test code = 5443357283) 161 mg/dL 70-110 H Lab Interpretation (test code = Abnormal 40676-1) [facility] GLUCOSE (AUTOMATED)2022-07-24 20:44:06 Test Item Value Reference Range Interpretation Comments POCT GLU (test code = 4261059794) 161 mg/dL 70-110 H Lab Interpretation (test code = Abnormal 89071-2) [facility] GLUCOSE (AUTOMATED)2022-07-24 17:17:45 Test Item Value Reference Range Interpretation Comments POCT GLU (test code = 2495012336) 257 mg/dL 70-110 H Lab Interpretation (test code = Abnormal 35592-5) [facility] GLUCOSE (AUTOMATED)2022-07-24 17:17:45 Test Item Value Reference Range Interpretation Comments POCT GLU (test code = 8652420555) 257 mg/dL 70-110 H Lab Interpretation (test code = Abnormal 39421-8) [facility] GLUCOSE (AUTOMATED)2022-07-24 14:12:13 Test Item Value Reference Range Interpretation Comments POCT GLU (test code = 6571230396) 201 mg/dL 70-110 H Lab Interpretation (test code = Abnormal 82976-7) [facility] GLUCOSE (AUTOMATED)2022-07-24 14:12:13 Test Item Value Reference Range Interpretation Comments POCT GLU (test code = 6074402155) 201 mg/dL 70-110 H Lab Interpretation (test code = Abnormal 62310-2) [facility] GLUCOSE (AUTOMATED)2022-07-24 01:57:51 Test Item Value Reference Range Interpretation Comments POCT GLU (test code = 4601214264) 214 mg/dL 70-110 H Lab Interpretation (test code = Abnormal 34459-1) [facility] GLUCOSE (AUTOMATED)2022-07-24 01:57:51 Test Item Value Reference Range Interpretation Comments POCT GLU (test code = 7218040613) 214 mg/dL 70-110 H Lab Interpretation (test code = Abnormal 69765-5) [facility] GLUCOSE (AUTOMATED)2022-07-23 21:55:56 Test Item Value Reference Range Interpretation Comments POCT GLU (test code = 6854860796) 184 mg/dL 70-110 H Lab Interpretation (test code = Abnormal 94038-5) [facility] GLUCOSE (AUTOMATED)2022-07-23 21:55:56 Test Item Value Reference Range Interpretation Comments POCT GLU (test code = 0600194703) 184 mg/dL 70-110 H Lab Interpretation (test code = Abnormal 25664-9) [facility] GLUCOSE (AUTOMATED)2022-07-23 17:27:48 Test Item Value Reference Range Interpretation Comments POCT GLU (test code = 0375365290) 259 mg/dL 70-110 H Lab Interpretation (test code = Abnormal 35372-1) [facility] GLUCOSE (AUTOMATED)2022-07-23 17:27:48 Test Item Value Reference Range Interpretation Comments POCT GLU (test code = 9632072428) 259 mg/dL 70-110 H Lab Interpretation (test code = Abnormal 30113-1) [facility] GLUCOSE (AUTOMATED)2022-07-23 13:05:59 Test Item Value Reference Range Interpretation Comments POCT GLU (test code = 4828011333) 154 mg/dL 70-110 H Lab Interpretation (test code = Abnormal 21947-2) [facility] GLUCOSE (AUTOMATED)2022-07-23 13:05:59 Test Item Value Reference Range Interpretation Comments POCT GLU (test code = 6129468638) 154 mg/dL 70-110 H Lab Interpretation (test code = Abnormal 55611-0) [facility] GLUCOSE (AUTOMATED)2022-07-23 09:58:20 Test Item Value Reference Range Interpretation Comments POCT GLU (test code = 8592763242) 177 mg/dL 70-110 H Lab Interpretation (test code = Abnormal 24838-7) [facility] GLUCOSE (AUTOMATED)2022-07-23 09:58:20 Test Item Value Reference Range Interpretation Comments POCT GLU (test code = 8916854694) 177 mg/dL 70-110 H Lab Interpretation (test code = Abnormal 00491-2) [facility] GLUCOSE (AUTOMATED)2022-07-22 21:30:57 Test Item Value Reference Range Interpretation Comments POCT GLU (test code = 0610124683) 194 mg/dL 70-110 H Lab Interpretation (test code = Abnormal 71166-3) [facility] GLUCOSE (AUTOMATED)2022-07-22 21:30:57 Test Item Value Reference Range Interpretation Comments POCT GLU (test code = 8781283779) 194 mg/dL 70-110 H Lab Interpretation (test code = Abnormal 13857-6) [facility] GLUCOSE (AUTOMATED)2022-07-22 16:52:50 Test Item Value Reference Range Interpretation Comments POCT GLU (test code = 5837312689) 197 mg/dL 70-110 H Lab Interpretation (test code = Abnormal 70694-0) [facility] GLUCOSE (AUTOMATED)2022-07-22 16:52:50 Test Item Value Reference Range Interpretation Comments POCT GLU (test code = 2864798074) 197 mg/dL 70-110 H Lab Interpretation (test code = Abnormal 75254-2) [facility] GLUCOSE (AUTOMATED)2022-07-22 13:22:34 Test Item Value Reference Range Interpretation Comments POCT GLU (test code = 6725627747) 150 mg/dL 70-110 H Lab Interpretation (test code = Abnormal 81865-4) [facility] GLUCOSE (AUTOMATED)2022-07-22 13:22:34 Test Item Value Reference Range Interpretation Comments POCT GLU (test code = 4803453996) 150 mg/dL 70-110 H Lab Interpretation (test code = Abnormal 96577-5) [id number] 09:38:27 Test Item Value Reference Range Interpretation Comments NT-proBNP (test code 2160 pg/mL See_Comment H [Autom ated = 8524459410) message] The system which generated this result transmitted reference range : <=125. The reference range was not used to interpret this result as normal/abnormal . ROSLYN (test code = ROSLYN) Biotin has been reported to cause a negative bias, interpret results relative to patient's use of biotin. Lab Interpretation Abnormal (test code = 80317-6) [facility] [id number] 09:38:27 Test Item Value Reference Range Interpretation Comments NT-proBNP (test code 2160 pg/mL See_Comment H [Autom ated = 8947368435) message] The system which generated this result transmitted reference range : <=125. The reference range was not used to interpret this result as normal/abnormal . ROSLYN (test code = ROSLYN) Biotin has been reported to cause a negative bias, interpret results relative to patient's use of biotin. Lab Interpretation Abnormal (test code = 70449-3) [facility] Test Item Value Reference Range Interpretation Comments MAGNESIUM (test code = 2155854756) 1.8 mg/dL 1.7-2.4 Lab Interpretation (test code = Normal 54483-9) [facility] 09:31:29 Test Item Value Reference Range Interpretation Comments MAGNESIUM (test code = 7597761448) 1.8 mg/dL 1.7-2.4 Lab Interpretation (test code = Normal 67266-3) [facility] METABOLIC PANEL (NA, K, CL, CO2, GLUCOSE, BUN, CREATININE, CA)2022-07-22 09:31:09 Test Item Value Reference Range Interpretation Comments NA (test code = 137 mmol/L 135-145 6283286087) K (test code = 4.0 mmol/L 3.5-5 9399946896) CL (test code = 98 mmol/L 98-108 3462162125) CO2 TOTAL (test code = 34 mmol/L 23-31 H 6544162123) AGAP (test code = 2-16 3861847423) BUN (test code = 16 mg/dL 7-23 9042182275) GLUCOSE (test code = 177 mg/dL 70-110 H 1984550647) CREATININE (test code = 0.66 mg/dL 0.6-1.25 8642377097) CALCIUM (test code = 8.2 mg/dL 8.6-10.6 L 6105224019) eGFR (test code = mL/min/1.73m2 6340849700) ROSLYN (test code = ROSLYN) Association of [...] tests). Lab Interpretation Abnormal (test code = 44959-2) [facility] (NA, K, CL, CO2, GLUCOSE, BUN, CREATININE, CA)2022-07-22 09:31:09 Test Item Value Reference Range Interpretation Comments NA (test code = 137 mmol/L 135-145 1962543956) K (test code = 4.0 mmol/L 3.5-5 2602525929) CL (test code = 98 mmol/L 98-108 3473837950) CO2 TOTAL (test code = 34 mmol/L 23-31 H 5217300132) AGAP (test code = 2-16 4553806816) BUN (test code = 16 mg/dL 7-23 7293170151) GLUCOSE (test code = 177 mg/dL 70-110 H 5908477670) CREATININE (test code = 0.66 mg/dL 0.6-1.25 5188071573) CALCIUM (test code = 8.2 mg/dL 8.6-10.6 L 6367510637) eGFR (test code = mL/min/1.73m2 9829177222) ROSLYN (test code = ROSLYN) Association of [...] tests). Lab Interpretation Abnormal (test code = 37303-8) [facility] (ALB,T.PRO,BILI T,BU/BC,ALT,AST,ALK PHOS)2022-07-22 09:30:44 Test Item Value Reference Range Interpretation Comments TOTAL BILI (test code = 9615509637) 1.2 mg/dL 0.1-1.1 H BILI UNCON (test code = 2291650061) 0.9 mg/dL 0.1-1.1 BILI CONJ (test code = 2955422978) 0.0 mg/dL 0-0.3 T PROTEIN (test code = 6548824480) 6.5 g/dL 6.3-8.2 ALBUMIN (test code = 7095308991) 3.7 g/dL 3.5-5 ALK PHOS (test code = 8603412466) 67 U/L 34-122 ALTv (test code = 1742-6) 33 U/L 5-50 AST(SGOT) (test code = 6017480921) 30 U/L 13-40 Lab Interpretation (test code = Abnormal 49147-1) [facility] 09:30:44 Test Item Value Reference Range Interpretation Comments PHOSPHORUS (test code = 1071013349) 3.6 mg/dL 2.5-5 Lab Interpretation (test code = Normal 37414-3) [facility]31352[facility] (ALB,T.PRO,BILI T,BU/BC,ALT,AST,ALK PHOS)2022-07-22 09:30:44 Test Item Value Reference Range Interpretation Comments TOTAL BILI (test code = 6349490150) 1.2 mg/dL 0.1-1.1 H BILI UNCON (test code = 5965824988) 0.9 mg/dL 0.1-1.1 BILI CONJ (test code = 5696189147) 0.0 mg/dL 0-0.3 T PROTEIN (test code = 8524902816) 6.5 g/dL 6.3-8.2 ALBUMIN (test code = 2403217957) 3.7 g/dL 3.5-5 ALK PHOS (test code = 2330300275) 67 U/L 34-122 ALTv (test code = 1742-6) 33 U/L 5-50 AST(SGOT) (test code = 9051501025) 30 U/L 13-40 Lab Interpretation (test code = Abnormal 19459-2) [facility] 09:30:44 Test Item Value Reference Range Interpretation Comments PHOSPHORUS (test code = 3811796692) 3.6 mg/dL 2.5-5 Lab Interpretation (test code = Normal 79077-5) [facility] [id number] 09:23:08 Test Item Value Reference Range Interpretation [...] RDW-SD (test code = 46.6 fL 38.5-51.6 12499-6) RDW-CV (test code = 13.5 % 12.1-15.4 788-0) PLT (test code = See_Comment L [Automated 777-3) message] The system which generated this result transmit artem reference range : 150 - 328 10*3/ ?L. The reference range was not u sed to interpret th is result as normal/abnormal . MPV (test code = 12.7 fL 9.8-13 97978-3) NRBC/100 WBC (test See_Comment [Automat ed code = 9188217774) message] The system which generated this result transmit artem reference range : 0.0 - 10.0 /100 WBCs. The reference range was not used to interpret this result as normal/abnormal . NRBC x10^3 (test code See_Comment [Auto mated = 9066156386) message] The system which generated this result transmit artem reference range : 10*3/?L. The reference range was not used to interpret this result as normal/abnormal . GRAN MAT (NEUT) % 71.3 % (test code = 770-8) IMM GRAN % (test code 0.40 % = 5900597506) LYMPH % (test code = 17.4 % 736-9) MONO % (test code = 9.8 % 5905-5) EOS % (test code = 0.8 % 713-8) BASO % (test code = 0.3 % 706-2) GRAN MAT x10^3(ANC) 10.18 10*3/uL 1.99-6.95 H (test code = 9904742426) IMM GRAN x10^3 (test 0.06 10*3/uL 0-0.06 code = 8927205123) LYMPH x10^3 (test code 2.49 10*3/uL 1.09-3.23 = 731-0) MONO x10^3 (test code 1.40 10*3/uL 0.36-1.02 H = 742-7) EOS x10^3 (test code = 0.11 10*3/uL 0.06-0.53 711-2) BASO x10^3 (test code 0.04 10*3/uL 0.01-0.09 = 704-7) Lab Interpretation Abnormal (test code = 66084-4) [facility] WITH [id number] 09:23:08 Test Item Value Reference Range Interpretation Comments WBC (test code = See_Comment H [Automated 6690-2) message] The system which generated this result transmit artem reference range : 4.20 - 10.70 10*3/?L. The reference range was not used to interpret this result as normal/abnormal . RBC (test code = See_Comment [Automated 469-8) message] The system which generated this result [...] RDW-SD (test code = 46.6 fL 38.5-51.6 38490-3) RDW-CV (test code = 13.5 % 12.1-15.4 788-0) PLT (test code = See_Comment L [Automated 777-3) message] The system which generated this result transmit artem reference range : 150 - 328 10*3/ ?L. The reference range was not u sed to interpret th is result as normal/abnormal . MPV (test code = 12.7 fL 9.8-13 77211-3) NRBC/100 WBC (test See_Comment [Automat ed code = 8469949453) message] The system which generated this result transmit artem reference range : 0.0 - 10.0 /100 WBCs. The reference range was not used to interpret this result as normal/abnormal . NRBC x10^3 (test code See_Comment [Auto mated = 8562462956) message] The system which generated this result transmit artem reference range : 10*3/?L. The reference range was not used to interpret this result as normal/abnormal . GRAN MAT (NEUT) % 71.3 % (test code = 770-8) IMM GRAN % (test code 0.40 % = 7380545108) LYMPH % (test code = 17.4 % 736-9) MONO % (test code = 9.8 % 5905-5) EOS % (test code = 0.8 % 713-8) BASO % (test code = 0.3 % 706-2) GRAN MAT x10^3(ANC) 10.18 10*3/uL 1.99-6.95 H (test code = 3271772786) IMM GRAN x10^3 (test 0.06 10*3/uL 0-0.06 code = 0557743865) LYMPH x10^3 (test code 2.49 10*3/uL 1.09-3.23 = 731-0) MONO x10^3 (test code 1.40 10*3/uL 0.36-1.02 H = 742-7) EOS x10^3 (test code = 0.11 10*3/uL 0.06-0.53 711-2) BASO x10^3 (test code 0.04 10*3/uL 0.01-0.09 = 704-7) Lab Interpretation Abnormal (test code = 71620-9) [facility] GLUCOSE (AUTOMATED)2022-07-22 01:47:13 Test Item Value Reference Range Interpretation Comments POCT GLU (test code = 6993877884) 220 mg/dL 70-110 H Lab Interpretation (test code = Abnormal 25078-3) [facility]2022-07-22 01:47:13 Test Item Value Reference Range Interpretation Comments POCT GLU (test code = 0178353750) 220 mg/dL 70-110 H Lab Interpretation (test code = Abnormal 59045-5) [facility] (45336)(TOTAL CHOLESTEROL, TRIGLYCERIDES, HDL)2022-07-22 00:19:28 Test Item Value Reference Range Interpretation Comments CHOL (test code = 121 mg/dL 120-200 9489492707) HDL (test code = 28 mg/dL See_Comment L [Automated message] 1911977573) The system [employer] generated this result transmit artem reference range : >=40. The refer ence range was not u sed to interpret th is result as normal/abnormal . HDLC RATIO (test code = See_Comment [Au tomated message] 9372082232) The system [employer] generated this result transmit artem reference range : <=5.0. The refe rence range was not u sed to interpret th is result as normal/abnormal . TRIG (test code = 119 mg/dL 30-170 2517440091) LDL CHOL (test code = 69 mg/dL See_Comment [Auto mated message] 23939-2) The system [employer] generated this result transmit artem reference range : <=160. The refe rence range was not u sed to interpret th is result as normal/abnormal . VLDL (test code = 24 mg/dL 5-60 2532850626) Lab Interpretation (test Abnormal code = 10333-2) [facility] (15663)(TOTAL CHOLESTEROL, TRIGLYCERIDES, HDL)2022-07-22 00:19:28 Test Item Value Reference Range Interpretation Comments CHOL (test code = 121 mg/dL 120-200 9459472707) HDL (test code = 28 mg/dL See_Comment L [Automated message] 1587065272) The system [employer] generated this result transmit artem reference range : >=40. The refer ence range was not u sed to interpret th is result as normal/abnormal . HDLC RATIO (test code = See_Comment [Au tomated message] 7811169164) The system [employer] generated this result transmit artem reference range : <=5.0. The refe rence range was not u sed to interpret th is result as normal/abnormal . TRIG (test code = 119 mg/dL 30-170 0880421568) LDL CHOL (test code = 69 mg/dL See_Comment [Auto mated message] 66564-0) The system [employer] generated this result transmit artem reference range : <=160. The refe rence range was not u sed to interpret th is result as normal/abnormal . VLDL (test code = 24 mg/dL 5-60 8176641677) Lab Interpretation (test Abnormal code = 58544-5) [facility]2022-07-22 00:00:55 Test Item Value Reference Range Interpretation Comments Height (test code = in 5757029423) Weight (test code = lbs 9118533618) Systolic BP (test code = mmHg 6139608440) Diastolic BP (test code mmHg = 8564052523) Heart Rate (test code = bpm 8855379342) BSA (test code = 2.04 m2 0799239611) Ao root annulus (test 3.5 cm code = 6569880642) Ao root diam (test code 3.50 cm = 8922456516) Aortic root (test code = 3.5 cm 8048391555) LVOT diameter (test code 2.19 cm = 2800209392) LVOT area (test code = 3.80 cm2 6976854911) LVIDD (test code = 5.30 cm 9341268419) Left Ventricular End 135.3 mL Diastolic Volume by Teichholz Method (test code = 9641616) IVS (test code = 1.26 cm 7471671029) Interventricular Septum 1.26 cm Diastolic Thickness by 2D (test code = 0426777) LVPWD (test code = 1.26 cm 1698023856) PW (test code = 1.26 cm 0.6-1.9 0655155792) EF(Teich) (test code = 16.40 % 8422194383) LVIDS (test code = 4.90 cm 1421095865) Left Ventricular End 113.1 mL Systolic Volume by Teichholz Method (test code = 5438208) FS (test code = 7 % 3332158011) EF - 2D (test code = 16.40 % 18104568) LA size (test code = 4.3 cm 2947594830) TR Peak Anthony (test code = 249.6 cm/s 3066766126) Triscuspid Valve mmHg Regurgitation Peak Gradient (test code = 9421875621) LAV(MOD-sp4) (test code 79.00 mL = 8428371345) E wave decelartion time 0.13 s (test code = 1334262770) MV Peak E Anthony (test code 82.3 cm/s = 4779192400) MV stenosis pressure 1/2 38.8 ms time (test code = 9028894506) MV Peak A Anthony (test code 40.8 cm/s = 2100521518) E/A ratio (test code = ratio 8551829267) MR max PG (test code = 61.50 mm[Hg] 3773988434) MR max anthony (test code = 392.20 cm/s 1590965179) Mr max anthony (test code = 392.2 m/s 5067092582) MV Prop V (test code = 33.40 cm/s 8913207729) MV E/e' septal (test 12.6 cm/s code = 1690380674) Tapse (test code = 1.17 cm 1590681281) LVOT stroke volume (test 52.20 cm3 code = 4821241239) LVOT peak anthony (test code 86.4 cm/s = 5170310307) LVOT mn grad (test code mmHg = 0207720994) AV LVOT peak gradient mmHg (test code = 4839954606) LVOT peak VTI (test code 13.9 cm = 9518081969) LV V1 mean (test code = 57.20 cm/s 3862474293) Aortic valve mean 94.3 cm/s velocity (test code = 5805323355) Ao peak anthony (test code = 125.8 cm/s 2077958133) Ao VTI (test code = 22.6 cm 2496643381) AV area by cont VTI 2.3 cm2 (test code = 6587015191) AV area peak anthony (test 2.6 cm2 code = 1346809719) Ao max PG (test code = 6.30 mm[Hg] 4353026118) AV peak gradient (test mmHg code = 9065519724) AV valve area (test code 2.31 cm2 = 3662285888) AV mean gradient (test mmHg code = 8373888307) Radiology Study observation (narrative) (test code = 72218-3) ROSLYN (test code = ROSLYN) ?Left?Ventricle: Left [...] mL of Lumason ultrasound enhancing agent used. [facility]2022-[facility]-22 00:00:55 Test Item Value Reference Range Interpretation Comments Height (test code = in 5812240443) Weight (test code = lbs 8976623180) Systolic BP (test code = mmHg 2273818143) Diastolic BP (test code mmHg = 0816429685) Heart Rate (test code = bpm 0006173320) BSA (test code = 2.04 m2 8742121245) Ao root annulus (test 3.5 cm code = 3254884080) Ao root diam (test code 3.50 cm = 2888801568) Aortic root (test code = 3.5 cm 8778711010) LVOT diameter (test code 2.19 cm = 6652688921) LVOT area (test code = 3.80 cm2 6961006263) LVIDD (test code = 5.30 cm 6189395773) Left Ventricular End 135.3 mL Diastolic Volume by Teichholz Method (test code = 0393830) IVS (test code = 1.26 cm 3955651123) Interventricular Septum 1.26 cm Diastolic Thickness by 2D (test code = 4591343) LVPWD (test code = 1.26 cm 3093125332) PW (test code = 1.26 cm 0.6-1.7 3995198105) EF(Teich) (test code = 16.40 % 8695221051) LVIDS (test code = 4.90 cm 8966841134) Left Ventricular End 113.1 mL Systolic Volume by Teichholz Method (test code = 1649483) FS (test code = 7 % 2268519994) EF - 2D (test code = 16.40 % 34101853) LA size (test code = 4.3 cm 0499552508) TR Peak Anthony (test code = 249.6 cm/s 1523346908) Triscuspid Valve mmHg Regurgitation Peak Gradient (test code = 3019149593) LAV(MOD-sp4) (test code 79.00 mL = 6218565718) E wave decelartion time 0.13 s (test code = 9862210594) MV Peak E Anthony (test code 82.3 cm/s = 5083690482) MV stenosis pressure 1/2 38.8 ms time (test code = 0369138580) MV Peak A Anthony (test code 40.8 cm/s = 2535961897) E/A ratio (test code = ratio 1467344703) MR max PG (test code = 61.50 mm[Hg] 2713563591) MR max anthony (test code = 392.20 cm/s 8290829288) Mr max anthony (test code = 392.2 m/s 2696404120) MV Prop V (test code = 33.40 cm/s 9368605433) MV E/e' septal (test 12.6 cm/s code = 3282698866) Tapse (test code = 1.17 cm 4059781335) LVOT stroke volume (test 52.20 cm3 code = 5971404373) LVOT peak anthony (test code 86.4 cm/s = 4654601997) LVOT mn grad (test code mmHg = 1900958133) AV LVOT peak gradient mmHg (test code = 2344251075) LVOT peak VTI (test code 13.9 cm = 4857395017) LV V1 mean (test code = 57.20 cm/s 6272599389) Aortic valve mean 94.3 cm/s velocity (test code = 1709574221) Ao peak anthony (test code = 125.8 cm/s 5864436098) Ao VTI (test code = 22.6 cm 0434908463) AV area by cont VTI 2.3 cm2 (test code = 8887850930) AV area peak anthony (test 2.6 cm2 code = 1071852978) Ao max PG (test code = 6.30 mm[Hg] 5120467276) AV peak gradient (test mmHg code = 7755028718) AV valve area (test code 2.31 cm2 = 3202907124) AV mean gradient (test mmHg code = 7398125775) Radiology Study observation (narrative) (test code = 37516-5) ROSLYN (test code = ROSLYN) ?Left?Ventricle: Left [...] mL of Lumason ultrasound enhancing agent used. [facility] GLUCOSE (AUTOMATED)2022-07-21 21:54:48 Test Item Value Reference Range Interpretation Comments POCT GLU (test code = 4579843887) 161 mg/dL 70-110 H Lab Interpretation (test code = Abnormal 24127-4) [facility] GLUCOSE (AUTOMATED)2022-07-21 21:54:48 Test Item Value Reference Range Interpretation Comments POCT GLU (test code = 8360661039) 161 mg/dL 70-110 H Lab Interpretation (test code = Abnormal 98757-5) [facility] GLUCOSE (AUTOMATED)2022-07-21 16:47:05 Test Item Value Reference Range Interpretation Comments POCT GLU (test code = 4428007217) 132 mg/dL 70-110 H Lab Interpretation (test code = Abnormal 05180-2) [facility] GLUCOSE (AUTOMATED)2022-07-21 16:47:05 Test Item Value Reference Range Interpretation Comments POCT GLU (test code = 7820170520) 132 mg/dL 70-110 H Lab Interpretation (test code = Abnormal 97162-6) [facility] GLUCOSE (AUTOMATED)2022-07-21 15:03:01 Test Item Value Reference Range Interpretation Comments POCT GLU (test code = 8616572900) 182 mg/dL 70-110 H Lab Interpretation (test code = Abnormal 87658-9) [facility] GLUCOSE (AUTOMATED)2022-07-21 15:03:01 Test Item Value Reference Range Interpretation Comments POCT GLU (test code = 8324516961) 182 mg/dL 70-110 H Lab Interpretation (test code = Abnormal 72665-8) [facility] with [id number] 14:58:14 Test Item Value Reference Range Interpretation Comments WBC (test code = See_Comment H [Automated 5990-2) message] The system which generated this result [...] RDW-SD (test code = 46.4 fL 38.5-51.6 99068-0) RDW-CV (test code = 13.5 % 12.1-15.4 788-0) PLT (test code = See_Comment [Automated 777-3) message] The system which generated this result transmit artem reference range : 150 - 328 10*3/ ?L. The reference range was not u sed to interpret th is result as normal/abnormal . MPV (test code = 13.0 fL 9.8-13 15246-8) NRBC/100 WBC (test See_Comment [Automat ed code = 5637180206) message] The system which generated this result transmit artem reference range : 0.0 - 10.0 /100 WBCs. The reference range was not used to interpret this result as normal/abnormal . NRBC x10^3 (test code See_Comment [Auto mated = 0926940908) message] The system which generated this result transmit artem reference range : 10*3/?L. The reference range was not used to interpret this result as normal/abnormal . GRAN MAT (NEUT) % 71.1 % (test code = 770-8) IMM GRAN % (test code 0.40 % = 1472963825) LYMPH % (test code = 17.6 % 736-9) MONO % (test code = 10.3 % 5905-5) EOS % (test code = 0.3 % 713-8) BASO % (test code = 0.3 % 706-2) GRAN MAT x10^3(ANC) 10.55 10*3/uL 1.99-6.95 H (test code = 3226003168) IMM GRAN x10^3 (test 0.06 10*3/uL 0-0.06 code = 9096225906) LYMPH x10^3 (test code 2.61 10*3/uL 1.09-3.23 = 731-0) MONO x10^3 (test code 1.53 10*3/uL 0.36-1.02 H = 742-7) EOS x10^3 (test code = 0.04 10*3/uL 0.06-0.53 L 711-2) BASO x10^3 (test code 0.04 10*3/uL 0.01-0.09 = 704-7) BANDS (test code = Increased A 8592898634) REACT LYMPHS (test Rare code = 4218389544) GIANT PLATELETS (test Present See_Comment A [Auto mated code = 5908-9) message] The system which generated this result transmit artem reference range : (none). The reference range was not used to interpret this result as normal/abnormal . Lab Interpretation Abnormal (test code = 12175-7) [facility] with Yobzdtqsexeg4577-46-97 14:58:14 Test Item Value Reference Range Interpretation Comments WBC (test code = See_Comment H [Automated 2990-2) message] The system which generated this result transmit artem reference range : 4.20 - 10.70 10*3/?L. The reference range was not used to interpret this result as normal/abnormal . RBC (test code = See_Comment [Automated 129-8) message] The system which generated this result [...] RDW-SD (test code = 46.4 fL 38.5-51.6 99484-1) RDW-CV (test code = 13.5 % 12.1-15.4 788-0) PLT (test code = See_Comment [Automated 777-3) message] The system which generated this result transmit artem reference range : 150 - 328 10*3/ ?L. The reference range was not u sed to interpret th is result as normal/abnormal . MPV (test code = 13.0 fL 9.8-13 84768-6) NRBC/100 WBC (test See_Comment [Automat ed code = 3293621593) message] The system which generated this result transmit artem reference range : 0.0 - 10.0 /100 WBCs. The reference range was not used to interpret this result as normal/abnormal . NRBC x10^3 (test code See_Comment [Auto mated = 3621437613) message] The system which generated this result transmit artem reference range : 10*3/?L. The reference range was not used to interpret this result as normal/abnormal . GRAN MAT (NEUT) % 71.1 % (test code = 770-8) IMM GRAN % (test code 0.40 % = 1865871176) LYMPH % (test code = 17.6 % 736-9) MONO % (test code = 10.3 % 5905-5) EOS % (test code = 0.3 % 713-8) BASO % (test code = 0.3 % 706-2) GRAN MAT x10^3(ANC) 10.55 10*3/uL 1.99-6.95 H (test code = 3366248194) IMM GRAN x10^3 (test 0.06 10*3/uL 0-0.06 code = 5075408403) LYMPH x10^3 (test code 2.61 10*3/uL 1.09-3.23 = 731-0) MONO x10^3 (test code 1.53 10*3/uL 0.36-1.02 H = 742-7) EOS x10^3 (test code = 0.04 10*3/uL 0.06-0.53 L 711-2) BASO x10^3 (test code 0.04 10*3/uL 0.01-0.09 = 704-7) BANDS (test code = Increased A 1508409120) REACT LYMPHS (test Rare code = 9828407104) GIANT PLATELETS (test Present See_Comment A [Auto mated code = 5908-9) message] The system which generated this result transmit artem reference range : (none). The reference range was not used to interpret this result as normal/abnormal . Lab Interpretation Abnormal (test code = 98859-2) [facility] GLUCOSE (AUTOMATED)2022-07-21 13:20:46 Test Item Value Reference Range Interpretation Comments POCT GLU (test code = 2675124344) 148 mg/dL 70-110 H Lab Interpretation (test code = Abnormal 96913-0) [facility] GLUCOSE (AUTOMATED)2022-07-21 13:20:46 Test Item Value Reference Range Interpretation Comments POCT GLU (test code = 8673372216) 148 mg/dL 70-110 H Lab Interpretation (test code = Abnormal 07246-6) [facility] Metabolic Panel (NA, K, CL, CO2, GLUCOSE, BUN, CREATININE, CA)2022-07-21 13:17:35 Test Item Value Reference Range Interpretation Comments NA (test code = 134 mmol/L 135-145 L 9841921156) K (test code = 4.1 mmol/L 3.5-5 1173205914) CL (test code = 99 mmol/L 98-108 5533193226) CO2 TOTAL (test code = 32 mmol/L 23-31 H 1969950996) AGAP (test code = 2-16 9360146821) BUN (test code = 17 mg/dL 7-23 6168837488) GLUCOSE (test code = 186 mg/dL 70-110 H 9460785746) CREATININE (test code = 0.65 mg/dL 0.6-1.25 4150419263) CALCIUM (test code = 8.2 mg/dL 8.6-10.6 L 9524432973) eGFR (test code = mL/min/1.73m2 4721918973) ROSLYN (test code = ROSLYN) Association of [...] tests). Lab Interpretation Abnormal (test code = 37421-2) [facility] Metabolic Panel (NA, K, CL, CO2, GLUCOSE, BUN, CREATININE, CA)2022-07-21 13:17:35 Test Item Value Reference Range Interpretation Comments NA (test code = 134 mmol/L 135-145 L 0173752608) K (test code = 4.1 mmol/L 3.5-5 6288127578) CL (test code = 99 mmol/L 98-108 7259320427) CO2 TOTAL (test code = 32 mmol/L 23-31 H 4715006341) AGAP (test code = 2-16 1973949547) BUN (test code = 17 mg/dL 7-23 7349677056) GLUCOSE (test code = 186 mg/dL 70-110 H 1329996527) CREATININE (test code = 0.65 mg/dL 0.6-1.25 2778283495) CALCIUM (test code = 8.2 mg/dL 8.6-10.6 L 1227504526) eGFR (test code = mL/min/1.73m2 3984230857) ROSLYN (test code = ROSLYN) Association of [...] tests). Lab Interpretation Abnormal (test code = 90735-4) [id number] 12:35:48 Test Item Value Reference Interpretation Comments Range TROPONIN I (test 0.032 ng/mL See_Comment [Automated code = 2934698711) message] The system which generated this result [...] biotin. Lab Interpretation Normal (test code = 36557-1) [facility] [id number] 12:35:48 Test Item Value Reference Interpretation Comments Range TROPONIN I (test 0.032 ng/mL See_Comment [Automated code = 6348135314) message] The system which generated this result [...] biotin. Lab Interpretation Normal (test code = 84336-7) [facility] [id number] 12:32:47 Test Item Value Reference Range Interpretation Comments NT-proBNP (test code 3830 pg/mL See_Comment H [Autom ated = 1912226868) message] The system which generated this result transmitted reference range : <=125. The reference range was not used to interpret this result as normal/abnormal . ROSLYN (test code = ROSLYN) Biotin has been reported to cause a negative bias, interpret results relative to patient's use of biotin. Lab Interpretation Abnormal (test code = 40243-1) [facility] [id number] 12:32:47 Test Item Value Reference Range Interpretation Comments NT-proBNP (test code 3830 pg/mL See_Comment H [Autom ated = 7496366765) message] The system which generated this result transmitted reference range : <=125. The reference range was not used to interpret this result as normal/abnormal . ROSLYN (test code = ROSLYN) Biotin has been reported to cause a negative bias, interpret results relative to patient's use of biotin. Lab Interpretation Abnormal (test code = 44604-6) [facility] [id number] 12:24:10 Test Item Value Reference Range Interpretation Comments MAGNESIUM (test code = 7527134576) 1.8 mg/dL 1.7-2.4 Lab Interpretation (test code = Normal 33139-6) [facility] [id number] 12:24:10 Test Item Value Reference Range Interpretation Comments MAGNESIUM (test code = 3032961001) 1.8 mg/dL 1.7-2.4 Lab Interpretation (test code = Normal 86112-9) [facility] GLUCOSE (AUTOMATED)2022-07-21 04:19:16 Test Item Value Reference Range Interpretation Comments POCT GLU (test code = 5389151646) 169 mg/dL 70-110 H Lab Interpretation (test code = Abnormal 28971-4) [facility] GLUCOSE (AUTOMATED)2022-07-21 04:19:16 Test Item Value Reference Range Interpretation Comments POCT GLU (test code = 9754098033) 169 mg/dL 70-110 H Lab Interpretation (test code = Abnormal 77719-0) [facility] GLUCOSE (AUTOMATED)2022-07-21 02:03:28 Test Item Value Reference Range Interpretation Comments POCT GLU (test code = 3901088847) 242 mg/dL 70-110 H Lab Interpretation (test code = Abnormal 40969-5) [facility] GLUCOSE (AUTOMATED)2022-07-21 02:03:28 Test Item Value Reference Range Interpretation Comments POCT GLU (test code = 0858096038) 242 mg/dL 70-110 H Lab Interpretation (test code = Abnormal 82374-7) [facility]21 00:46:20 Test Item Value Reference Range Interpretation Comments HGB A1C (test code = 11.1 % 4-5.7 H 4548-4) ROSLYN (test code = ROSLYN) Reference RangesNormal: <5.7%Prediabetes: 5.7 - 6.4%Diabetes: > 6.5% Lab Interpretation (test Abnormal code = 64717-9) [facility]2022-07-21 00:46:20 Test Item Value Reference Range Interpretation Comments HGB A1C (test code = 11.1 % 4-5.7 H 4548-4) ROSLYN (test code = ROSLYN) Reference RangesNormal: <5.7%Prediabetes: 5.7 - 6.4%Diabetes: > 6.5% Lab Interpretation (test Abnormal code = 74380-4) [facility] GLUCOSE (AUTOMATED)2022-07-20 22:27:55 Test Item Value Reference Range Interpretation Comments POCT GLU (test code = 0392144636) 234 mg/dL 70-110 H Lab Interpretation (test code = Abnormal 80765-9) [facility] GLUCOSE (AUTOMATED)2022-07-20 22:27:55 Test Item Value Reference Range Interpretation Comments POCT GLU (test code = 5731638119) 234 mg/dL 70-110 H Lab Interpretation (test code = Abnormal 84380-4) [facility] [id number] 17:21:08 Test Item Value Reference Range Interpretation Comments NT-proBNP (test code 3250 pg/mL See_Comment H [Autom ated = 0684517251) message] The system which generated this result transmitted reference range : <=125. The reference range was not used to interpret this result as normal/abnormal . ROSLYN (test code = ROSLYN) Biotin has been reported to cause a negative bias, interpret results relative to patient's use of biotin. Lab Interpretation Abnormal (test code = 75051-3) [facility] [id number] 17:21:08 Test Item Value Reference Range Interpretation Comments NT-proBNP (test code 3250 pg/mL See_Comment H [Autom ated = 3963264272) message] The system which generated this result transmitted reference range : <=125. The reference range was not used to interpret this result as normal/abnormal . ROSLYN (test code = ROSLYN) Biotin has been reported to cause a negative bias, interpret results relative to patient's use of biotin. Lab Interpretation Abnormal (test code = 41902-0) [facility] WITH [id number] 17:16:49 Test Item Value Reference Range Interpretation [...] RDW-SD (test code = 44.7 fL 38.5-51.6 11460-8) RDW-CV (test code = 13.7 % 12.1-15.4 788-0) PLT (test code = See_Comment [Automated 777-3) message] The system which generated this result transmit artem reference range : 150 - 328 10*3/ ?L. The reference range was not u sed to interpret th is result as normal/abnormal . MPV (test code = 12.5 fL 9.8-13 48518-7) NRBC/100 WBC (test See_Comment [Automat ed code = 5132021887) message] The system which generated this result transmit artem reference range : 0.0 - 10.0 /100 WBCs. The reference range was not used to interpret this result as normal/abnormal . NRBC x10^3 (test code See_Comment [Auto mated = 6214245495) message] The system which generated this result transmit artem reference range : 10*3/?L. The reference range was not used to interpret this result as normal/abnormal . GRAN MAT (NEUT) % 76.6 % (test code = 770-8) IMM GRAN % (test code 0.70 % = 6349398968) LYMPH % (test code = 13.8 % 736-9) MONO % (test code = 8.5 % 5905-5) EOS % (test code = 0.1 % 713-8) BASO % (test code = 0.3 % 706-2) GRAN MAT x10^3(ANC) 17.13 10*3/uL 1.99-6.95 H (test code = 8862753466) IMM GRAN x10^3 (test 0.16 10*3/uL 0-0.06 H code = 3993170105) LYMPH x10^3 (test code 3.10 10*3/uL 1.09-3.23 = 731-0) MONO x10^3 (test code 1.91 10*3/uL 0.36-1.02 H = 742-7) EOS x10^3 (test code = 0.06-0.53 L 711-2) BASO x10^3 (test code 0.07 10*3/uL 0.01-0.09 = 704-7) BANDS (test code = Increased A 1708530642) REACT LYMPHS (test Rare code = 0410354712) Lab Interpretation Abnormal (test code = 67241-7) [facility] WITH [id number] 17:16:49 Test Item Value Reference Range Interpretation Comments WBC (test code = See_Comment H [Automated 9690-2) message] The system which generated this result transmit artem reference range : 4.20 - 10.70 10*3/?L. The reference range was not used to interpret this result as normal/abnormal . RBC (test code = See_Comment H [Automated 009-8) message] The system which generated this result [...] RDW-SD (test code = 44.7 fL 38.5-51.6 23896-2) RDW-CV (test code = 13.7 % 12.1-15.4 788-0) PLT (test code = See_Comment [Automated 777-3) message] The system which generated this result transmit artem reference range : 150 - 328 10*3/ ?L. The reference range was not u sed to interpret th is result as normal/abnormal . MPV (test code = 12.5 fL 9.8-13 16573-9) NRBC/100 WBC (test See_Comment [Automat ed code = 4797260700) message] The system which generated this result transmit artem reference range : 0.0 - 10.0 /100 WBCs. The reference range was not used to interpret this result as normal/abnormal . NRBC x10^3 (test code See_Comment [Auto mated = 6436924843) message] The system which generated this result transmit artem reference range : 10*3/?L. The reference range was not used to interpret this result as normal/abnormal . GRAN MAT (NEUT) % 76.6 % (test code = 770-8) IMM GRAN % (test code 0.70 % = 5728622766) LYMPH % (test code = 13.8 % 736-9) MONO % (test code = 8.5 % 5905-5) EOS % (test code = 0.1 % 713-8) BASO % (test code = 0.3 % 706-2) GRAN MAT x10^3(ANC) 17.13 10*3/uL 1.99-6.95 H (test code = 8259182015) IMM GRAN x10^3 (test 0.16 10*3/uL 0-0.06 H code = 5671433771) LYMPH x10^3 (test code 3.10 10*3/uL 1.09-3.23 = 731-0) MONO x10^3 (test code 1.91 10*3/uL 0.36-1.02 H = 742-7) EOS x10^3 (test code = 0.06-0.53 L 711-2) BASO x10^3 (test code 0.07 10*3/uL 0.01-0.09 = 704-7) BANDS (test code = Increased A 3444142568) REACT LYMPHS (test Rare code = 8123860662) Lab Interpretation Abnormal (test code = 33485-5) [facility] [id number] 16:42:04 Test Item Value Reference Interpretation Comments Range TROPONIN I (test 0.025 ng/mL See_Comment [Automated code = 8487298416) message] The system which generated this result [...] biotin. Lab Interpretation Normal (test code = 69104-7) [facility] [id number] 16:42:04 Test Item Value Reference Interpretation Comments Range TROPONIN I (test 0.025 ng/mL See_Comment [Automated code = 3555751168) message] The system which generated this result [...] biotin. Lab Interpretation Normal (test code = 63560-0) [facility] 16:31:19 Test Item Value Reference [...] seconds. Lab Interpretation Normal (test code = 29799-9) [facility] 16:31:19 Test Item Value Reference [...] seconds. Lab Interpretation Normal (test code = 75503-8) [facility] METABOLIC PANEL (94784)2022-07-20 16:30:19 Test Item Value Reference Range Interpretation Comments NA (test code = 133 mmol/L 135-145 L 3139947180) K (test code = 5.3 mmol/L 3.5-5 H 7617258631) CL (test code = 98 mmol/L 98-108 8024517006) CO2 TOTAL (test code = 27 mmol/L 23-31 8936838238) AGAP (test code = 2-16 6925227297) BUN (test code = 13 mg/dL 7-23 2840579164) GLUCOSE (test code = 273 mg/dL 70-110 H 0402202326) CREATININE (test code = 0.62 mg/dL 0.6-1.25 1576754597) TOTAL BILI (test code = 2.1 mg/dL 0.1-1.1 H 7477667638) CALCIUM (test code = 8.6 mg/dL 8.6-10.6 6138587603) T PROTEIN (test code = 7.3 g/dL 6.3-8.2 8679427988) ALBUMIN (test code = 4.4 g/dL 3.5-5 4329160755) ALK PHOS (test code = 61 U/L 34-122 6482734910) ALTv (test code = 29 U/L 5-50 2-6) AST(SGOT) (test code = 36 U/L 13-40 7457855017) eGFR (test code = mL/min/1.73m2 1641066197) ROSLYN (test code = ROSLYN) Association of [...] tests). Lab Interpretation Abnormal (test code = 67870-5) [facility]. METABOLIC PANEL (59917)2022-07-20 16:30:19 Test Item Value Reference Range Interpretation Comments NA (test code = 133 mmol/L 135-145 L 8608645229) K (test code = 5.3 mmol/L 3.5-5 H 7415717305) CL (test code = 98 mmol/L 98-108 1403762052) CO2 TOTAL (test code = 27 mmol/L 23-31 3589682799) AGAP (test code = 2-16 3283438039) BUN (test code = 13 mg/dL 7-23 4796614995) GLUCOSE (test code = 273 mg/dL 70-110 H 1724179722) CREATININE (test code = 0.62 mg/dL 0.6-1.25 7184698053) TOTAL BILI (test code = 2.1 mg/dL 0.1-1.1 H 1199393058) CALCIUM (test code = 8.6 mg/dL 8.6-10.6 8962007321) T PROTEIN (test code = 7.3 g/dL 6.3-8.2 3962899107) ALBUMIN (test code = 4.4 g/dL 3.5-5 3624203670) ALK PHOS (test code = 61 U/L 34-122 4867130111) ALTv (test code = 29 U/L 5-50 2-6) AST(SGOT) (test code = 36 U/L 13-40 5382150001) eGFR (test code = mL/min/1.73m2 0669425414) ROSLYN (test code = ROSLYN) Association of [...] tests). Lab Interpretation Abnormal (test code = 82794-3) [facility] Center[facility] / [id number] 16:29:23 Test Item Value Reference Range Interpretation Comments PROTIME PATIENT (test See_Comment [Auto mated message] code = 5964-2) The system [employer] generated this result transmitted ref erence range: 12.0 - 1 4.7 Seconds. The re ference range was not u sed to interpret this result as normal/abnor mal. INR (test code = 6301-6) Nor mal INR <1.1; Warfarin Therap eutic range 2.0 to 3. 0 or 2.5 to 3.5, dep ending upon the indica tions. Lab Interpretation (test Normal code = 89845-1) [facility] / [id number] 16:29:23 Test Item Value Reference Range Interpretation Comments PROTIME PATIENT (test See_Comment [Auto mated message] code = 5964-2) The system [employer] generated this result transmitted ref erence range: 12.0 - 1 4.7 Seconds. The re ference range was not u sed to interpret this result as normal/abnor mal. INR (test code = 6301-6) Nor mal INR <1.1; Warfarin Therap eutic range 2.0 to 3. 0 or 2.5 to 3.5, dep ending upon the indica tions. Lab Interpretation (test Normal code = 75589-7) [facility]"
[2022-09-01] MEDS ORDERED: HYDROCODONE/APAP 5/325 MG TAB ONE (16:13)
[2022-09-01 16:50] LABS: Absolute Lymphocytes (CBC) 2.7 K/uL (0.7-4.9); Lymphocytes % 15.4 % (15.3-44.8); MCV 88.6 fL (80-100); MPV 9.7 fL (7.6-11.3); RBC Red Blood Cell Count 4.86 M/uL (4.33-5.43)
[2022-09-01 16:52] LABS: Protime INR 1.13
[2022-09-01 17:04] LABS: Albumin 3.7 g/dL (3.4-5.0); Bilirubin Direct 0.3 mg/dL (0-0.2); Potassium 3.7 mmol/L (3.5-5.1)
[2022-09-01 17:05] LABS: Magnesium 1.8 mg/dL (1.8-2.4); Troponin High Sensitivity 19.9 pg/mL (<58.9)
[2022-09-01] MEDS ORDERED: NA CHLORIDE 0.9% 1,000 ML ONE (17:40)
--- NOTE | 2022-09-01 17:40 | RAD REPORT ---
EXAM DESCRIPTION: RAD - Chest Single View - 09/01/2022 5:28 pm CLINICAL HISTORY: weakness, body aches COMPARISON: Chest Single View dated 08/12/2022; Chest Single View dated 08/10/2022; Chest Single View dated 07/16/2022; Chest Single View dated 07/03/2022 FINDINGS: Lines: None. Lungs: Decreased edema compared with 08/12/2022. Prominent interstitial markings at the lung bases is similar. Pleural: No significant pleural effusions or pneumothorax. Cardiac: Cardiomegaly. Mediastinum: Within normal limits. Bones: No acute fractures. Other: None IMPRESSION: Improved edema compared with 08/12/2022 . No new superimposed acute process.
--- NOTE | 2022-09-01 18:44 | RAD REPORT ---
EXAM DESCRIPTION: CTChest Abdomen Pelvis W Cont - 09/01/2022 6:26 pm CLINICAL HISTORY: body aches, leukocytosis, abdominal pain COMPARISON: CT CHEST ABD PELVIS W CONTRAST dated 03/28/2014 TECHNIQUE: CT of the chest, abdomen, and pelvis was performed with IV contrast. All CT scans are performed using dose optimization technique as appropriate and may include automated exposure control or mA/KV adjustment according to patient size. FINDINGS: Thorax: Chest Wall: No abnormal mass Lungs: No acute abnormality. Emphysema. Pleura: No effusions or pneumothorax. Marie/Mediastinum: No lymphadenopathy. Aorta/Pulmonary Arteries: Unremarkable Heart: Normal size. Scattered coronary artery calcifications. Abdomen/Pelvis: Liver: No acute abnormality or suspicious lesions. Biliary: No biliary ductal dilatation. Stomach: No significant focal abnormality. Duodenum: No significant focal abnormality. Pancreas: No significant abnormality. Spleen: No significant abnormality. Adrenal: Bilateral adrenal thickening. Kidney/ureter: No hydronephrosis. No renal calculi. Too small to characterize and/or benign appearing renal lesions are noted. Retroperitoneum: No retroperitoneal adenopathy. Vascular: No aneurysm. Bowel: Normal appendix . Partial colectomy. Peritoneum: No ascites or free air. Ventral abdominal wall laxity. Bladder: Grossly unremarkable. Reproductive: No adnexal masses. Bones: No acute fracture. Grade 1 anterolisthesis of L5 on S1 pars defects are present. Multilevel de generative changes are present in the spine. Other: n/a IMPRESSION: No acute findings within the chest, abdomen, or pelvis. No specific findings to explain leukocytosis. Incidental findings as noted above.
--- NOTE | 2022-09-01 19:14 | EDPHYS ---
Physician Documentation [facility] Name: José Pat Age: 72 yrs Sex: Male : 1950 Arrival Date: 09/01/2022 Time: 15:47 Bed 19 Private MD: ED Physician Jayme Rao HPI: 09/01 15:55 This 72 yrs old Male presents to ER via EMS with complaints of Weakness, body aches. jmm 15:55 Is a 72-year-old male with a history of CHF, atrial fibrillation, COPD, diabetes jmm mellitus the presents emerged department with complaints of generalized body aches, difficulty sleeping. Patient states he has not gotten out of bed over the past 4 days. Also has had difficulty sleeping.. Historical: - Allergies: 15:50 No Known Allergies; jd3 - Home Meds: 15:50 Eliquis Oral [Active]; jd3 - PMHx: 15:50 CHF; Atrial fibrillation; COPD; Diabetes - IDDM; jd3 - Immunization history:: Adult Immunizations up to date. - Social history:: Smoking status: Patient reports the use of cigarette tobacco products, smokes one-half pack cigarettes per day. ROS: 15:55 Cardiovascular: Negative for chest pain, palpitations, and edema, Respiratory: Negative jmm for shortness of breath, cough, wheezing, and pleuritic chest pain, Abdomen/GI: Negative for abdominal pain, nausea, vomiting, diarrhea, and constipation. 15:55 Constitutional: Positive for body aches. 15:55 Psych: Positive for insomnia. 15:55 All other systems are negative. Exam: 15:55 Constitutional: This is a well developed, well nourished patient who is awake, alert, jmm and in no acute distress. Head/Face: atraumatic. Eyes: EOMI, no conjunctival erythema appreciated ENT: Moist Mucus Membranes Neck: Trachea midline, Supple Chest/axilla: Normal chest wall appearance and motion. Cardiovascular: Regular rate and rhythm. No edema appreciated Respiratory: Normal respirations, no respiratory distress appreciated Abdomen/GI: Non distended Back: Normal ROM Skin: General appearance color normal 15:55 Musculoskeletal/extremity: ROM: intact in all extremities. 15:55 Skin: Appearance: Color: normal in color. 15:55 Neuro: Orientation: is normal, Mentation: is normal, Memory: is normal. 15:55 Psych: Behavior/mood is pleasant, cooperative. Vital Signs: 15:50 BP 115 / 44; Pulse 56; Resp 19 S; Temp 98.0(O); Pulse Ox 96% on 3 lpm NC; Weight 114.76 jd3 kg (R); Height 5 ft. 7 in. (170.18 cm) (R); Pain 4/10; 17:08 BP 95 / 59; Pulse 88; Resp 19; Pulse Ox 98% on 3 lpm NC; jd3 18:03 BP 117 / 76; Pulse 110; Resp 18; Pulse Ox 97% on 3 lpm NC; jd3 19:22 BP 112 / 69; Pulse 79; Resp 17 S; Pulse Ox 96% on 3 lpm NC; lg3 15:50 Body Mass Index 39.62 (114.76 kg, 170.18 cm) jd3 MDM: 15:55 Patient medically screened. [facility] 19:12 Data reviewed: vital signs, nurses notes. Counseling: I had a detailed discussion with miri the patient and/or guardian regarding: the historical points, exam findings, and any diagnostic results supporting the discharge/admit diagnosis, lab results, radiology results, the need for further work-up and treatment in the hospital. ED course: I discussed the patient with Lis Madsen who excepted the patient to Dr. Maksim jones.. 09/01 15:56 Order name: Basic Metabolic Panel; Complete Time: 17:06 [facility] 09/01 15:56 Order name: CBC with Diff; Complete Time: 16:57 [facility] 09/01 15:56 Order name: LFT's; Complete Time: 17:06 [facility] 09/01 15:56 Order name: Magnesium; Complete Time: 17:06 [facility] 09/01 15:56 Order name: NT PRO-BNP; Complete Time: 17:06 [facility] 09/01 15:56 Order name: PT-INR; Complete Time: 16:57 [facility] 09/01 15:56 Order name: Troponin HS; Complete Time: 17:06 [facility] 09/01 15:56 Order name: [place] Screen Profile; Complete Time: 17:30 [facility] 09/01 15:56 Order name: Lactate; Complete Time: 17:06 [facility] 09/01 15:56 Order name: Blood Culture Adult (2) [facility] 09/01 15:56 Order name: Influenza Screen (a \\T\\ B); Complete Time: 17:04 [facility] 09/01 15:57 Order name: SARS-COV-2 RT PCR (Document "Date of Onset" if Symptomatic); Complete Time: [facility] 17:09/01 19:42 Order name: UDS; Complete Time: 22:32 [facility] 09/01 20:25 Order name: Lactate Sepsis 2 HR Follow-up; Complete Time: 20:35 [facility] 09/01 15:56 Order name: XRAY Chest (1 view); Complete Time: 17:54 [facility] 09/01 15:56 Order name: EKG; Complete Time: 15:57 [facility] 09/01 15:56 Order name: Cardiac monitoring; Complete Time: 17:05 [facility] 09/01 15:56 Order name: EKG - Nurse/Tech; Complete Time: 17:05 [facility] 09/01 15:56 Order name: IV Saline Lock; Complete Time: 16:35 [facility] 09/01 17:31 Order name: CT Chest For PE Angio [facility] 09/01 17:31 Order name: CT Abd/Pelvis - IV Contrast Only [facility] 09/01 18:05 Order name: CT Chest Abdomen W/ Contrast [facility] 09/01 18:11 Order name: Chest Abdomen Pelvis W Cont; Complete Time: 18:57 [facility] 09/01 20:42 Order name: Urine Culture [facility] 09/01 20:43 Order name: Urine Microscopic Only; Complete Time: 22:32 [facility] 09/01 20:45 Order name: Urine Dipstick-Ancillary; Complete Time: 22:32 [facility] 09/01 15:56 Order name: Labs collected and sent; Complete Time: 16:35 [facility] 09/01 15:56 Order name: O2 Per Protocol; Complete Time: 16:11 [facility] 09/01 15:56 Order name: O2 Sat Monitoring; Complete Time: 16:11 [facility] 09/01 15:56 Order name: Urine Dipstick-Ancillary (obtain specimen); Complete Time: 20:46 [facility] Administered Medications: 16:15 Drug: HYDROcodone-acetaminophen 5 mg-325 mg 1 tabs Route: PO; jd3 17:15 Follow up: Response: No adverse reaction; RASS: Alert and Calm (0) jd3 18:02 Drug: NS 0.9% 1000 ml Route: IV; Rate: 1 bolus; Site: right forearm; jd3 21:03 Follow up: Response: No adverse reaction; IV Status: Completed infusion; IV Intake: lg3 1000ml Disposition Summary: 09/01/22 19:13 Hospitalization Ordered Hospitalization Status: Observation jm Provider: Tim Chaidez Location: Telemetry/MedSurg (observation) jmm Condition: Stable jmm Problem: new jmm Symptoms: have improved jmm Bed/Room Type: Standard [facility] Room Assignment: 415(09/01/22 20:56) mw Diagnosis - Lactic acidosis jmm - Leukocytosis jmm - Insomnia jmm - Dehydration jmm Forms: - Medication Reconciliation Form jmm - SBAR form jmm Addendum: 09/05/2022 00:11 Co-signature as Attending Physician, Jayme Rao MD. r n Signatures: Dispatcher [employer] EDMS Maru Dean RN RN Juan José Graf PA PA jmm Nieto, Roman, MD MD rn Davies, Jonathon, RN RN jd3 Brown, Sophia PAWeston PA-Camelia Oliva RN lg3 Corrections: (The following items were deleted from the chart) 09/01 18:10 17:35 Chest For Pe Angio ordered. EDMN EDMS 18:10 17:37 Abdomen ordered. EDMN EDMS 20:56 19:13 jmm mw
--- NOTE | 2022-09-01 19:14 | ER ---
Nurse's Notes [facility] Name: José Pat Age: 72 yrs Sex: Male : 1950 Arrival Date: 09/01/2022 Time: 15:47 Bed 19 Private MD: Diagnosis: Lactic acidosis;Leukocytosis;Insomnia;Dehydration Presentation: 09/01 15:48 Chief complaint: EMS states: "pt reporting that has not slept in 3-4 days. he is also jd3 reporting general body aches, but denies any fever or any other symptoms. stable vitals other than heart rate jumps around related to his history of A-fib.". Coronavirus screen: At this time, the client does not indicate any symptoms associated with coronavirus-19. Ebola Screen: No symptoms or risks identified at this time. Initial Sepsis Screen: Does the patient meet any 2 criteria? No. Patient's initial sepsis screen is negative. Does the patient have a suspected source of infection? No. Patient's initial sepsis screen is negative. Risk Assessment: Do you want to hurt yourself or someone else? Patient reports no desire to harm self or others. Onset of symptoms was August 29, 2022. 15:48 Method Of Arrival: EMS: [facility] jd3 15:48 Acuity: KIT 3 jd3 Historical: - Allergies: 15:50 No Known Allergies; jd3 - Home Meds: 15:50 Eliquis Oral [Active]; jd3 - PMHx: 15:50 CHF; Atrial fibrillation; COPD; Diabetes - IDDM; jd3 - Immunization history:: Adult Immunizations up to date. - Social history:: Smoking status: Patient reports the use of cigarette tobacco products, smokes one-half pack cigarettes per day. Screenin:54 Abuse screen: Denies threats or abuse. Nutritional screening: No deficits noted. jd3 Tuberculosis screening: No symptoms or risk factors identified. Fall Risk Ambulatory Aid- None/Bed Rest/Nurse Assist (0 pts). Gait- Normal/Bed Rest/Wheelchair (0 pts) Mental Status- Oriented to own ability (0 pts). Total Baron Fall Scale indicates No Risk (0-24 pts). Assessment: 15:51 General: Appears in no apparent distress. comfortable, Behavior is calm, cooperative, jd3 appropriate for age, Reports fatigue for 2-3 days. Pain: Complains of pain in general body aches Quality of pain is described as aching. Neuro: Padilla Agitation-Sedation Scale (RASS): 0 - Alert and Calm Level of Consciousness is awake, alert, obeys commands, Oriented to person, place, time, situation. Cardiovascular: Denies chest pain, Capillary refill < 3 seconds Patient's skin is warm and dry. Rhythm is atrial fibrillation. Respiratory: Airway is patent Respiratory effort is even, unlabored, Respiratory pattern is regular, symmetrical, Denies cough, shortness of breath. GI: No signs and/or symptoms were reported involving the gastrointestinal system. Reports diarrhea, Patient currently denies constipation, nausea, vomiting. : No signs and/or symptoms were reported regarding the genitourinary system. EENT: No signs and/or symptoms were reported regarding the EENT system. Derm: Skin is intact, Skin is dry, Skin is normal, Skin temperature is warm. Musculoskeletal: Circulation, motion, and sensation intact. Range of motion: intact in all extremities. 17:08 Reassessment: Patient appears in no apparent distress at this time. No changes from jd3 previously documented assessment. Patient and/or family updated on plan of care and expected duration. Pain level reassessed. Patient is alert, oriented x 3, equal unlabored respirations, skin warm/dry/pink. 18:02 Reassessment: Patient appears in no apparent distress at this time. No changes from jd3 previously documented assessment. Patient and/or family updated on plan of care and expected duration. Pain level reassessed. Patient is alert, oriented x 3, equal unlabored respirations, skin warm/dry/pink. 19:23 Reassessment: Patient appears in no apparent distress at this time. No changes from lg3 previously documented assessment. Patient and/or family updated on plan of care and expected duration. Pain level reassessed. Patient is alert, oriented x 3, equal unlabored respirations, skin warm/dry/pink. 21:06 General: attempted to call report. nurse not available. lg3 Vital Signs: 15:50 BP 115 / 44; Pulse 56; Resp 19 S; Temp 98.0(O); Pulse Ox 96% on 3 lpm NC; Weight 114.76 jd3 kg (R); Height 5 ft. 7 in. (170.18 cm) (R); Pain 4/10; 17:08 BP 95 / 59; Pulse 88; Resp 19; Pulse Ox 98% on 3 lpm NC; jd3 18:03 BP 117 / 76; Pulse 110; Resp 18; Pulse Ox 97% on 3 lpm NC; jd3 19:22 BP 112 / 69; Pulse 79; Resp 17 S; Pulse Ox 96% on 3 lpm NC; lg3 15:50 Body Mass Index 39.62 (114.76 kg, 170.18 cm) jd3 ED Course: 15:47 Patient arrived in ED. jd3 15:48 Rodolfo Rojas, RN is Primary Nurse. jd3 15:48 Juan José Raines PA is PHCP. jmm 15:48 Jayme Rao MD is Attending Physician. jm 15:50 Triage completed. jd3 15:51 Arm band placed on. jd3 15:54 Patient has correct armband on for positive identification. Placed in gown. Bed in low jd3 position. Call light in reach. Side rails up X2. Client placed on continuous cardiac and pulse oximetry monitoring. NIBP monitoring applied. monitoring and evaluation advisor on. Pulse ox on. NIBP on. 16:35 Inserted saline lock: 22 gauge in right forearm, using aseptic technique. Blood jd3 collected. 17:30 XRAY Chest (1 view) In Process Unspecified. EDMS 18:28 Chest Abdomen Pelvis W Cont In Process Unspecified. EDMS 19:13 Tim Chaidez is Hospitalizing Provider. jmm 20:46 UDS Sent. lg3 22:44 No provider procedures requiring assistance completed. Patient admitted, IV remains in lg3 place. intact, No redness/swelling at site. Administered Medications: 16:15 Drug: HYDROcodone-acetaminophen 5 mg-325 mg 1 tabs Route: PO; jd3 17:15 Follow up: Response: No adverse reaction; RASS: Alert and Calm (0) jd3 18:02 Drug: NS 0.9% 1000 ml Route: IV; Rate: 1 bolus; Site: right forearm; jd3 21:03 Follow up: Response: No adverse reaction; IV Status: Completed infusion; IV Intake: lg3 1000ml Medication: 15:54 VIS not applicable for this client. jd3 Intake: 21:03 IV: 1000ml; Total: 1000ml. lg3 Outcome: 19:13 Decision to Hospitalize by Provider. jmm 22:44 Admitted to Med/surg accompanied by nurse, via wheelchair, with oxygen. lg3 22:44 Condition: stable 22:44 Instructed on the need for admit, Demonstrated understanding of instructions. 22:44 Patient left the ED. lg3 Signatures: Dispatcher [employer] EDMS Juan José Raines PA PA jmm Davies, Jonathon, RN RN jCamelia Oliveira RN RN lg3 Corrections: (The following items were deleted from the chart) 18:03 17:08 BP 95 / 49; Pulse 88bpm; Resp 19bpm; Pulse Ox 98% 3 lpm Nasal Cannula; alissa maxwell
--- NOTE | 2022-09-01 20:26 | P.HP ---
Certification for Inpatient Patient admitted to: Observation With expected LOS: <2 Midnights Patient will require the following post-hospital care: None Practitioner: I am a practitioner with admitting privileges, knowledge of patient current condition, hospital course, and medical plan of care. Services: Services provided to patient in accordance with Admission requirements found in Title 42 Section 412.3 of the Code of Federal Regulations Patient History Date of Service: 09/01/22 Reason for admission: Weakness/Dehydration History of Present Illness: Patient is a 72-year-old male with history of chronic diastolic CHF, atrial fibrillation on chronic anticoagulation, diabetes mellitus type 2insulin- dependent, COPD, and tobacco abuse presents emergency department with complaints of insomnia, generalized body aches, and mild chest pain. Patient reports that he has not slept in 4 days but has felt too weak to get out of bed. He is a poor historian and gives very short answers during my assessment. Initial blood pressure was 115/44 so he was given 1L bolus. Labs significant for WBC 17.8, BUN 22, lactate 3.5, 2 hour repeat 1.5. Urine pending. EKG shows afib, rate controlled. CT chest abdomen pelvis negative. Patient denies any changes in medical history, medications, or general lifestyle changes. Vital signs have been stable. ED provider wishes to admit patient for observation. Allergies No Known Allergies Allergy (Verified 06/10/22 22:17) Home medications list reviewed: Yes Home Medications: Apixaban [Eliquis] 5 mg PO BID #60 tablet 07/04/22 Aspirin [Aspirin EC 81 MG] 81 mg PO DAILY #30 tablet. 07/04/22 Insulin Glargine,Hum.rec.anlog [Lantus Solostar] 15 unit SQ DAILY 30 Days #2 kit 07/04/22 Metformin HCl [Glucophage*] 500 mg PO BIDWM 30 Days #60 tab 07/04/22 Tamsulosin [Flomax*] 0.4 mg PO DAILY #30 cap 07/04/22 Amiodarone HCl [Cordarone*] 400 mg PO BID tab 08/15/22 Insulin -Regular Human [Novolin -R*] See Protocol SQ ACHS ml 08/15/22 traMADol HCL [Ultram*] 50 mg PO Q6H PRN tab 08/15/22 - Past Medical/Surgical History Diabetic: Yes -: DIVERTICULITIS -: COPD -: A. fib -: Diastolic CHF -: Diabetes mellitus type 2 -: Hypertension -: Hyperlipidemia -: Colostomy and reversal Psychosocial/ Personal History: Patient lives at home with his - Family History Father Notes: mesothelioma Mother -: Heart disease, Hypertension - Social History Smoking Status: Current every day smoker Alcohol use: No CD- Drugs: No Caffeine use: Yes Place of Residence: Home Review of Systems General: Weakness, Other (Insomnia) Cardiovascular: Chest Pain Physical Examination - Physical Exam General: Alert, In no apparent distress HEENT: Atraumatic, PERRLA, EOMI, Sclerae nonicteric Neck: Supple, 2+ carotid pulse no bruit, No LAD, Without JVD or thyroid abnormality Respiratory: Clear to auscultation bilaterally, Normal air movement Cardiovascular: Regular rate/rhythm, Normal S1 S2 Gastrointestinal: Normal bowel sounds, No tenderness Musculoskeletal: No tenderness Integumentary: No rashes Neurological: Normal speech, Normal strength at 5/5 x4 extr, Normal tone, Normal affect - Studies Laboratory Data (last 24 hrs) 09/01/22 16:27: PT 12.4, INR 1.13 09/01/22 16:27: WBC 17.80 H, Hgb 14.3, Hct 43.0, Plt Count 301 09/01/22 16:27: Sodium 135 L, Potassium 3.7, BUN 22 H, Creatinine 1.15, Glucose 196 H, Magnesium 1.8, Total Bilirubin 1.0, AST 17, ALT 25, Alkaline Phosphatase 61 Microbiology Data (last 24 hrs): 09/01/22 16:27 Nasopharnyx Influenza Type A Antigen Screen - Final 09/01/22 16:27 Nasopharnyx Influenza Type B Antigen Screen - Final Assessment and Plan - Problems (Diagnosis) (1) COPD (chronic obstructive pulmonary disease) Current Visit: Yes Status: Chronic Qualifiers: COPD type: unspecified COPD Qualified Code(s): J44.9 - Chronic obstructive pulmonary disease, unspecified (2) Dehydration Current Visit: Yes Status: Acute (3) Chest pain Current Visit: Yes Status: Acute Qualifiers: Chest pain type: unspecified Qualified Code(s): R07.9 - Chest pain, unspecified (4) Afib Current Visit: Yes Status: Chronic Qualifiers: Atrial fibrillation type: paroxysmal Qualified Code(s): I48.0 - Paroxysmal atrial fibrillation (5) CHF (congestive heart failure) Current Visit: Yes Status: Chronic Qualifiers: Heart failure type: diastolic Heart failure chronicity: chronic Qualified Code(s): I50.32 - Chronic diastolic (congestive) heart failure (6) Type 2 diabetes mellitus Current Visit: Yes Status: Chronic Qualifiers: Diabetes mellitus fpc insulin use: with fpc use Diabetes mellitus complication status: without complication Qualified Code(s): E11.9 - Type 2 diabetes mellitus without complications; 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 Blood cultures obtained. Infection suspicion low at this point -Will hold off on additional IVF as patient got 1L bolus in ED and has history of CHF -ACHS accu checks with mild sliding scale and diabetic diet -Xanax ordered for insomnia. Monitor respiratory rate -Monitor patient on telemetry -Reconcile and continue home medications -Monitor and replete electrolytes per protocol -Eliquis for VTE prophylaxis -Full code Discharge Plan: Home Plan to discharge in: 24 Hours - Advance Directives Does patient have a Living Will: No Does patient have a Durable POA for Healthcare: No - Code Status/Comfort Care Code Status Assessed: Yes (Full) Critical Care: No Time Spent Managing Pts Care (In Minutes): 50
[2022-09-01 20:45] LABS: Urine Blood Negative (Negative); Urine Glucose Negative (Negative); Urine Protein Negative (Negative); Urine Specific Gravity <=1.005 (1.005-1.030); Urine pH 5.5 (5.0-7.0)
[2022-09-01 21:02] LABS: Barbiturates NEGATIVE (NEGATIVE); Benzodiazepines NEGATIVE (NEGATIVE); Cocaine NEGATIVE (NEGATIVE); METHAMPHETAM NEGATIVE (NEGATIVE); Methadone NEGATIVE (NEGATIVE); Opiates NEGATIVE (NEGATIVE); Phencyclidine NEGATIVE (NEGATIVE); THC Cannibis NEGATIVE (NEGATIVE)
[2022-09-01] MEDS ORDERED: ONDANSETRON 4 MG/2 ML VIAL IV PRN (22:19)
[2022-09-01] MEDS ORDERED: ALBUTEROL 2.5 MG/3 ML NEB SOL NEB PRN (22:19)
[2022-09-01] MEDS ORDERED: ACETAMINOPHEN 500 MG TAB PO PRN (22:19)
[2022-09-01] MEDS: INSULIN -REGULAR HUMAN 50 UNIT/0.5 ML ML SQ SCH (22:19)
[2022-09-01 23:01] VITALS: BMI 32.7
[2022-09-01] MEDS: APIXABAN 5 MG TABLET PO SCH (23:48)
[2022-09-01] MEDS: ALPRAZOLAM 0.5 MG TABLET PO PRN (23:48)
[2022-09-02 03:51] LABS: Absolute Lymphocytes (CBC) 3.1 K/uL (0.7-4.9); Hematocrit 38.5 % (39.6-49.0); Lymphocytes % 20.6 % (15.3-44.8); MPV 9.8 fL (7.6-11.3); RBC Red Blood Cell Count 4.32 M/uL (4.33-5.43)
[2022-09-02 04:06] LABS: Magnesium 1.7 mg/dL (1.8-2.4); Phosphorus 3.5 mg/dL (2.5-4.9); Potassium 3.3 mmol/L (3.5-5.1); Thyroid Stimulating Hormone 2.83 uIU/mL (0.360-3.740)
[2022-09-02] MEDS ORDERED: MAGNESIUM SULFATE 1 gm IVPB 1 GM/100 ML BAG IV ONE (04:57)
[2022-09-02] MEDS ORDERED: POTASSIUM CL SA 10 MEQ TAB PO ONE ×2 (04:57→15:00)
[2022-09-02] MEDS: INSULIN -REGULAR HUMAN 50 UNIT/0.5 ML ML SQ SCH ×4 (07:30→21:00)
[2022-09-02] MEDS ORDERED: PNEUMOCOCCAL VACCINE 0.5 ML IMVAC ONE (08:00)
[2022-09-02] MEDS: APIXABAN 5 MG TABLET PO SCH ×2 (09:32→21:13)
[2022-09-02] MEDS ORDERED: ALBUTEROL 2.5 MG/3 ML NEB SOL NEB PRN (15:00)
[2022-09-02] MEDS ORDERED: INFLUENZA VACCINE (for 6+ mo) 0.5 ML DOSE IMVAC ONE (15:00)
--- NOTE | 2022-09-02 17:26 | P.DS ---
Admission Date: 09/01/22 Discharge Date: 09/02/22 Disposition: [facility] HOME/HOME HEALTH CARE Discharge Condition: FAIR Reason for Admission: Weakness/Dehydration - Problems (1) Generalized weakness Current Visit: Yes Status: Acute (2) Dehydration Current Visit: Yes Status: Acute (3) Afib Current Visit: Yes Status: Chronic Qualifiers: Atrial fibrillation type: paroxysmal Qualified Code(s): I48.0 - Paroxysmal atrial fibrillation (4) Type 2 diabetes mellitus Current Visit: Yes Status: Chronic Qualifiers: Diabetes mellitus group home insulin use: with long distance operator use Diabetes mellitus complication status: without complication Qualified Code(s): E11.9 - Type 2 diabetes mellitus without complications; Z79.4 - residential (current) use of insulin (5) COPD with exacerbation Current Visit: No Status: Acute Brief History of Present Illness: Patient is a 72-year-old male with history of chronic diastolic CHF, atrial fibrillation on chronic anticoagulation, diabetes mellitus type 2insulin- dependent, COPD, and tobacco abuse presented to the emergency department with complaints of insomnia, generalized body aches, and chest pain. Patient reported that he has not slept in 4 days but has felt too weak to get out of bed. He is a poor historian and could not give much history. Initial blood pressure was 115/44 so he was given 1L bolus. Labs significant for WBC 17.8, BUN 22, lactate 3.5, 2 hour repeat 1.5. UA showed no UTI. EKG showed afib, rate controlled. CT chest abdomen pelvis negative. Patient denied any changes in medical history, medications, or general lifestyle changes. Vital signs were stable. Patient placed under observation for further management. Hospital Course: Patient placed under observation on the medical floor. Patient was requiring up to 4 L of oxygen by nasal cannula which was later weaned down to 2.5. He was seen by physical therapy and able to ambulate 300 feet with a rolling walker. He was treated with COPD exacerbation with bronchodilators. Patient currently denies any symptoms and wants to go home. Per report patient has been noncompliant with oxygen use. He is clinically stable for discharge. He is advised to use his oxygen. He is prescribed trazodone for insomnia. Vital Signs/Physical Exam: Temp Pulse Resp BP Pulse Ox 98.0 F 79 16 106/81 93 09/02/22 16:00 09/02/22 16:00 09/02/22 16:00 09/02/22 16:00 09/02/22 16:00 General: Alert, In no apparent distress, Oriented x3 HEENT: Mucous membr. moist/pink Neck: JVD not distended Respiratory: Clear to auscultation bilaterally, Normal air movement Cardiovascular: No edema Gastrointestinal: Normal bowel sounds, Soft and benign, No tenderness Musculoskeletal: No swelling Neurological: Other (No focal motor deficit.) Laboratory Data at Discharge: WBC 15.00 K/uL (4.3-10.9) H 09/02/22 03:07 Hgb 12.9 g/dL (13.6-17.9) L D 09/02/22 03:07 Hct 38.5 % (39.6-49.0) L 09/02/22 03:07 Plt Count 251 K/uL (152-406) 09/02/22 03:07 PT 12.4 SECONDS (9.5-12.5) 09/01/22 16:27 INR 1.13 09/01/22 16:27 Sodium 135 mmol/L (136-145) L 09/02/22 03:07 Potassium 3.8 mmol/L (3.5-5.1) D 09/02/22 11:10 BUN 16 mg/dL (7-18) 09/02/22 03:07 Creatinine 0.85 mg/dL (0.55-1.3) 09/02/22 03:07 Glucose 194 mg/dL (74-106) H 09/02/22 03:07 Phosphorus 3.5 mg/dL (2.5-4.9) 09/02/22 03:07 Magnesium 1.7 mg/dL (1.8-2.4) L 09/02/22 03:07 Total Bilirubin 1.0 mg/dL (0.2-1.0) 09/01/22 16:27 AST 17 U/L (15-37) 09/01/22 16:27 ALT 25 U/L (12-78) 09/01/22 16:27 Alkaline Phosphatase 61 U/L (45-117) 09/01/22 16:27 Triglycerides 132 mg/dL (<150) 09/02/22 03:07 Cholesterol 91 mg/dL (<200) 09/02/22 03:07 HDL Cholesterol 34 mg/dL (40-60) L 09/02/22 03:07 Cholesterol/HDL Ratio 2.68 09/02/22 03:07 Home Medications: Apixaban [Eliquis] 5 mg PO BID #60 tablet 07/04/22 Aspirin [Aspirin EC 81 MG] 81 mg PO DAILY #30 tablet. 07/04/22 Insulin Glargine,Hum.rec.anlog [Lantus Solostar] 15 unit SQ DAILY 30 Days #2 kit 07/04/22 Metformin HCl [Glucophage*] 500 mg PO BIDWM 30 Days #60 tab 07/04/22 Tamsulosin [Flomax*] 0.4 mg PO DAILY #30 cap 07/04/22 Amiodarone HCl [Cordarone*] 400 mg PO BID tab 08/15/22 Insulin -Regular Human [Novolin -R*] See Protocol SQ ACHS ml 08/15/22 traMADol HCL [Ultram*] 50 mg PO Q6H PRN tab 08/15/22 Trazodone HCl 50 mg PO BEDTIME #15 tab 09/02/22 New Medications: Trazodone HCl 50 mg PO BEDTIME #15 tab Diet: AHA Activity: Fall precautions Followup: NONE,NONE [Primary Care Provider] -
--- NOTE | 2022-09-02 18:36 | EKG ---
Test Date: 2022-09-02 Test Time: 01:25:28 Wire Stitcher Operator: ALBA MEASUREMENT RESULTS: Intervals: Rate: 78 ME: 260 QRSD: 164 QT: 452 QTc: 515 [place]: P: 5 ME: 260 QRS: -85 T: 69 INTERPRETIVE STATEMENTS: Sinus rhythm with marked sinus arrhythmia with 1st degree AV block Left axis deviation Right bundle branch block Inferior infarct, age undetermined Anteroseptal infarct, age undetermined T wave abnormality, consider lateral ischemia Abnormal ECG Compared to ECG 09/01/2022 16:55:12 First degree AV block now present Left-axis deviation now present Atrial fibrillation no longer present Myocardial infarct finding still present T-wave abnormality still present Possible ischemia still present Electronically Signed On 09-02-22 18:35:47 CDT by Gianluca Garcia
--- NOTE | 2022-09-02 18:39 | EKG ---
Test Date: 2022-09-01 Test Time: 16:55:12 Medical Claims Examiner: ALEX MEASUREMENT RESULTS: Intervals: Rate: 89 [place]: QRSD: 154 QT: 410 QTc: 498 [place]: P: [place]: QRS: 267 T: 60 INTERPRETIVE STATEMENTS: Atrial fibrillation Right bundle branch block Inferior infarct, age undetermined Anteroseptal infarct, age undetermined T wave abnormality, consider lateral ischemia or digitalis effect Abnormal ECG Compared to ECG 08/14/2022 14:06:30 T-wave abnormality now present Possible ischemia now present Left-axis deviation no longer present Myocardial infarct finding still present Electronically Signed On 09-02-22 18:37:22 CDT by Gianluca Garcia
[2022-09-02] MEDS: ALPRAZOLAM 0.5 MG TABLET PO PRN (21:13)
[2022-09-02 22:11] VITALS: O2SAT 96
[2022-09-03 06:14] LABS: Potassium 3.9 mmol/L (3.5-5.1)
[2022-09-03] MEDS: INSULIN -REGULAR HUMAN 50 UNIT/0.5 ML ML SQ SCH ×3 (07:30→16:30)
[2022-09-03 09:30] LABS: Magnesium 2.2 mg/dL (1.8-2.4)
[2022-09-03] MEDS: APIXABAN 5 MG TABLET PO SCH (09:53)
[2022-09-03 17:11] VITALS: BP 119/65; TEMP 97.2
--- NOTE | 2022-09-03 20:09 | P.PN ---
Date of Service: 09/03/22 Subjective: discharged yesterday, however unable to get a hold of anyone to give him ride / bring portable oxygen tank for patient he reports sleeping well last night feels better today, ready to go home ROS: 10 point ROS as noted above, otherwise negative Physical Exam: Gen: NAD, AOx3 HEENT: normal conjunctiva, sclera anicteric CV: regular rate & rhythm, no edema Pulm: non-labored respirations on 3L NC Abd: soft, non-tender, non-distended Neuro: normal speech, normal affect, moves all extremities vitals reviewed Problem List acute on chronic COPD exacerbation generalized weakness dehydration afib, paroxysmal DM2, insulin dependent improved; ambulated 300ft with rolling walker with PT treated for COPD exacerbation with improvement had quick improvement to resume home meds please refer to DC summary dated 09/02 for further detail patient remains stable for discharge, attempting to find someone to take him home social science analyst consulted - ride and portable O2 tank set up for patient to be discharged today Time Spent Managing Pts Care (In Minutes): 25
== END 2022-09-03 17:55 | disposition home health service (06) ==
LOC: ER 15:41 → ERHOLD 20:11 → 4TH 21:44
PROVIDERS: ADMIT Internal Medicine; ATTEND Hospitalist
DX: J44.1 Chronic obstructive pulmonary disease with (acute) exacerbation (principal); I50.32 Chronic diastolic (congestive) heart failure; I48.11 Longstanding persistent atrial fibrillation; E11.9 Type 2 diabetes mellitus without complications; E86.0 Dehydration; R07.9 Chest pain, unspecified; Z79.4 Long term (current) use of insulin; Z79.01 Long term (current) use of anticoagulants; Z72.0 Tobacco use; Z23 Encounter for immunization; Z20.822 Contact with and (suspected) exposure to COVID-19; I10 Essential (primary) hypertension; E78.5 Hyperlipidemia, unspecified
CPT/HCPCS: 96361; 93005 ×2; 87040 ×2; 87088; 85025 ×2; 87086; 80048 ×3; 36415 ×2; 83735 ×3; 86308; 84100; 84132; 85610; 80061; 82947 ×8; 80076; 83605 ×2; 84443; 84484; 83880; 80307; 87804 ×2; 71260; 74177; 71045; 90471; 97161; 94760 ×3; 96360; 99285; U0003; Q9967; J1815; Q2035; J3475; J7030; G0378 ×4; 81003; 81015

== ENCOUNTER 2022-09-07 16:21 | Emergency (ER) | payer OTHER ==
--- OUTSIDE RECORDS SUMMARY | 2022-09-07 16:50 | XMS REPORT | Continuity of Care Document ---
:1950 Author Organization [facility] t Address [address] [place] [address] Care Team Providers Name Role Phone Pcp, Patient Does Not Have A Primary Care Physician [phone] Attending Clinician Unavailable Meghana Ayala Attending Clinician Unavailable Jose Kim Rahil Attending Clinician Unavailable Jose Kim Attending Clinician Unavailable La Foster RN Attending Clinician Unavailable Charlene Butt DO Attending Clinician Atul Stephens MD Attending Clinician Berna Alcantar MD Attending Clinician [phone] BERNA ALCANTAR Attending Clinician Unavailable Orlando Cannon MD Attending Clinician [id number] Admitting Clinician Unavailable Jose Kim Rahil Admitting Clinician Unavailable Berna Alcantar MD Admitting Clinician [phone] BERNA ALCANTAR Admitting Clinician Unavailable Payers Payer Name Policy Type Policy Number Effective Date Expiration Date S [facility] [id number] Problems Condition Condition Condition Status Onset Resolution Last Treating Co mments Source Name Details Category Date Date Treatment Clinician Date Acute on Acute on Disease Active Unive rs chronic chronic 07-21 ity of combined combined 00:00: [place] systolic systolic 00 Medica l and and Branch diastolic diastolic congestive congestive heart heart failure failure Atrial Atrial Disease Active Univers flutter flutter 07-21 ity of with rapid with rapid 00:[place] ventricula ventricula 00 Me dical r response r response Br anch Obesity Obesity Disease Active Univers (BMI (BMI 07-21 ity of 30-39.9) 30-39.9) 00:00: [place] 00 Medical Branch Cigarette Cigarette Disease Active Uni vers smoker smoker 07-21 ity of 00:00: [place] 00 Medical Branch Type 2 Type 2 Disease Active Univers diabetes diabetes 07-21 ity of mellitus mellitus 00:00: [place] without without 00 Medical complicati complicati Br anch on, on, without without long-term long-term current current use of use of insulin insulin Chest Chest Disease Active Univers pain, pain, 07-20 ity of unspecifie unspecifie 00:[place] d type d type 00 Medical Branch HFrEF HFrEF Disease Active Overview: Univer s (heart (heart 07-20 Formattin ity of failure failure 00:00: g of this [place] with with 00 note Medical reduced reduced might be Branch ejection ejection different fraction) fraction) from the original. Added automatic ally from request for surgery [id number] CHF CHF Problem Active Common (congestiv (congestiv Sp anabela e heart e heart - CHI failure) failure) [facility] Hypertensi Hypertensi Problem Active C ommon on on Spirit - [facility] Diabetes Diabetes Problem Active Commo n type 2, type 2, Spirit controlled controlled [facility] COPD COPD Problem Active Common (chronic (chronic Spirit obstructiv obstructiv - CHI e e pulmonary pulmonary [place] s disease) disease) [facility] Nicotine Nicotine Problem Active Commo n dependence dependence Sp anabela - [facility] Seasonal Seasonal Problem Active Commo n allergic allergic Spirit rhinitis rhinitis - [facility] Adjustment Adjustment Problem Active C ommon disorder disorder Spirit with with - [facility] depressed depressed [facility] Chronic Chronic Problem Active Common fatigue fatigue Spirit [facility] Type 2 Type 2 Problem Active Common diabetes diabetes Spirit mellitus mellitus - [facility] with with [facility] hyperglyce Anupama kes marci, marci, Medical without without Center long-term long-term current current use of use of insulin insulin Allergies, Adverse Reactions, Alerts Allergy Allergy Status Severity Reaction(s) Onset Inactive Treating Comm ents Source Name Type Date Date Clinician NO KNOWN Drug Active Univers ALLERGIE Class ity of S [facility] Social History Social Habit Start Date Stop Date Quantity Comments Source History of Cigarette Smoker Universi ty of tobacco use [place] [facility] History SDOH Food 2022-07-29 2022-07-29 1 Univers ity of Worry 00:00:00 00:00:00 [place] [facility] History SDOH Food 2022-07-29 2022-07-29 1 Univers ity of Scarcity 00:00:00 00:00:00 [place] [facility] History SDOH 2022-07-29 2022-07-29 2 University o f Transport Med 00:00:00 00:00:00 [place] Medic al Branch History [facility] 2022-07-29 2022-07-29 2 University o f Transport Non-Med 00:00:00 00:00:00 [facility] edical Branch Tobacco use and 2022-07-21 2022-07-21 Smokeless tobacco Un iversity of exposure 00:00:00 00:00:00 non-user [facility] Exposure to 2022-07-10 2022-07-20 Not sure University of SARS-CoV-2 00:00:00 10:56:00 [facility] (event) Branch Sex Ass[birth year] At [birth year] Universit y of 00:00:00 00:00:00 [facility] Smoking Status Start Date Stop Date Source Smokes tobacco daily 2022-07-21 00:00:00 Univers ity of [facility] Medications Ordered Filled Start Stop Current Ordering Indication Dosage Frequency Signature Comments Components Source Medication Medication Date Date Medication? Clinician (SIG) Name Name furosemide Yes 40mg 40 mg, Unive rs (LASIX) 07-28 Oral, BID, ity of tablet 40 13:00: First dose [place] mg 00 (after Medical last Branch modificati on) on 07/28/22 at 0800, Until Discontinu ed, Routine furosemide 2022-0 2022- No 40mg 40 mg, Univ ers (LASIX) 07-28-18 Oral, BID, ity o f tablet 40 13:00: 04:46 First dose [place] mg 00 :24 (after Medical last Branch modificati on) on 07/28/22 at 0800, Until Discontinu ed, Routine furosemide 2021-0 Yes [id number] 40mg Take 1 Univers 40 mg 9-18 tablet by ity of tablet 00:00: mouth in [place] 00 the Medical morning Branch and 1 tablet in the evening. metoprolol 2021-0 Yes [id number] 50mg Take 1 Univers succinate 9-18 tablet by ity o f XL 50 mg 24 00:00: mouth in [place] hr tablet 00 the Medical morning. Branch spironolact 2021-0 Yes [id number] 25mg Take 1 Univers one 25 mg 9-18 tablet by ity o f tablet 00:00: mouth in [place] 00 the Medical morning. Branch furosemide 2021-0 Yes [id number] 40mg Take 1 Univers 40 mg 9-18 tablet by ity of tablet 00:00: mouth in [place] 00 the Medical morning Branch and 1 tablet in the evening. metoprolol 2021-0 Yes [id number] 50mg Take 1 Univers succinate 9-18 tablet by ity o f XL 50 mg 24 00:00: mouth in [place] hr tablet 00 the Medical morning. Branch spironolact 2021-0 Yes [id number] 25mg Take 1 Univers one 25 mg 9-18 tablet by ity o f tablet 00:00: mouth in [place] 00 the Medical morning. Branch furosemide 2021-0 Yes [id number] 40mg Take 1 Univers 40 mg 9-18 tablet by ity of tablet 00:00: mouth in [place] 00 the Medical morning Branch and 1 tablet in the evening. metoprolol 2021-0 Yes [id number] 50mg Take 1 Univers succinate 9-18 tablet by ity o f XL 50 mg 24 00:00: mouth in [place] hr tablet 00 the Medical morning. Branch spironolact 2021-0 Yes [id number] 25mg Take 1 Univers one 25 mg 9-18 tablet by ity o f tablet 00:00: mouth in [place] 00 the Medical morning. Branch aspirin 2021-0 Yes 81mg Take 81 mg Univ ers (ASPIR-LOW 9-17 by mouth 2 ity of ORAL) 21:46: (two) [place] 23 times Medical daily. Branch insulin 0 Yes 15U inject 15 Unive rs glargine,hu 9-17 Units ity of m.rec.anlog 21:46: under the [place] (LANTUS 23 skin. Medical U-100 Branch INSULIN SC) losartan 25 2021-0 Yes 1{tbl} Take 1 Un rita mg tablet 9-17 tablet by ity o f 21:46: mouth in [place] 23 the Medical morning. Branch montelukast 0 Yes 1{tbl} Take 1 Un rita 10 mg 9-17 tablet by ity of tablet 21:46: mouth in [place] 23 the Medical morning. Branch albuterol 0 Yes 2{puff} Take 2 Uni vers sulfate 9-17 Puffs by ity of (PROAIR 21:46: mouth as [place] RESPICLICK) 23 needed for Me dical 90 Cough. Branch mcg/actuati Cough, on AePB wheezing aspirin 0 Yes 81mg Take 81 mg Univ ers (ASPIR-LOW 9-17 by mouth 2 ity of ORAL) 21:46: (two) [place] 23 times Medical daily. Branch insulin Yes 15U inject 15 Unive rs glargine,hu 9-17 Units ity of m.rec.anlog 21:46: under the [place] (LANTUS 23 skin. Medical U-100 Branch INSULIN SC) losartan 25 0 Yes 1{tbl} Take 1 Un rita mg tablet 9-17 tablet by ity o f 21:46: mouth in [place] 23 the Medical morning. Branch montelukast 0 Yes 1{tbl} Take 1 Un rita 10 mg 9-17 tablet by ity of tablet 21:46: mouth in [place] 23 the Medical morning. Branch albuterol 0 Yes 2{puff} Take 2 Uni vers sulfate 9-17 Puffs by ity of (PROAIR 21:46: mouth as [place] RESPICLICK) 23 needed for Me dical 90 Cough. Branch mcg/actuati Cough, on AePB wheezing aspirin 2021-0 Yes 81mg Take 81 mg [...] by ity o f 21:46: mouth in [place] [id number] the Medical morning. Branch montelukast Yes 1{tbl} Take 1 Un rita 10 mg 9-17 tablet by ity of tablet 21:46: mouth in [place] 23 the Medical morning. Branch albuterol Yes 2{puff} Take 2 Uni vers sulfate 9-17 Puffs by ity of (PROAIR 21:46: mouth as [place] RESPICLICK) 23 needed for Me dical 90 [...] Branch 07/26/22 at 2030, Routine atorvastati Yes [id number] 40mg Take 1 Univers n 40 mg 9-17 tablet by ity of tablet 00:00: mouth at [place] 00 bedtime. Medical Branch apixaban Yes 1358 5mg Take 1 Univers (ELIQUIS) 5 9-17 tablet by ity of mg tablet 00:00: [place] 00 the Medical morning Branch and 1 tablet in the evening. Indication s: atrial fibrillati on atorvastati Yes [id number] 40mg Take 1 Univers n 40 mg 9-17 tablet by ity of tablet 00:00: mouth at [place] 00 bedtime. Medical Branch apixaban Yes 1358 5mg Take 1 Univers (ELIQUIS) 5 9-17 tablet by ity of mg tablet 00:00: mouth in [place] 00 the Medical morning Branch and 1 tablet in the evening. Indication s: atrial fibrillati on atorvastati Yes [id number] 40mg Take 1 Univers n 40 mg 9-17 tablet by ity of tablet 00:00: mouth at [place] 00 bedtime. Medical Branch apixaban Yes 1358 [...] 21:51 Starting [place] injection 26 :37 on Fri07/26/22 at Branch 1602, Until Fri07/26/22 at 1651, [...] ed insulin 2021- No 15U 15 Units, [facility] ers glargine 07-26 Subcutaneo ity of (LANTUS 14:00: 04:46 us, DAILY, [place] as U-100) 00 :24 First dose Medical injection (after Branch 15 Units last modificati on) on Fri07/26/22 at 0900, Until Discontinu ed KCL 2021- No 20meq 20 mEq, Univers (KLOR-CON 07-26 Oral, ity of M20) tablet 13:30: 14:05 ONCE, 1 [place] 20 mEq 00 :00 dose, On Medical Fri [place] 07/26/22 at 0830, Routine Sliding Yes Subcutaneo Univ ers Scale 07-26 us, Q6H, ity of Insulin - 01:00: First dose [place] Lispro 00 (after Medical (HumaLOG) + last Branch Fsbg modificati Testing on) on [facility] 07/25/22 at 2000, Until Discontinu ed, Routine Sliding 2021- No Subcutaneo Uni vers Scale 07-26 us, Q6H, ity of Insulin - 01:00: 04:46 First dose [place] Lispro 00 :24 (after Medical (HumaLOG) + last Branch Fsbg modificati Testing on) on [facility] 07/25/22 at 2000, Until Discontinu ed, Routine magnesium 2021- No 2g 2 g, IV [facility] ers sulfate in 07-26 Piggyback, it y [...] mg 00 :46 First dose Medical on [facility] Branch 07/25/22 at 1100, Until Discontinu ed, [...] at 0800, Until Discontinu ed, Routine insulin No 3U 3 Units, Unive rs lispro 07-25 Subcutaneo ity of (human) 13:00: 04:46 us, TID [place] (HumaLOG 00 :24 MEALS, Medical U-100) First dose Branch injection 3 (after Units last modificati on) on Fri07/25/22 at 0800, Until Discontinu ed, Routine Sliding Subcutaneo Uni vers Scale 07-25 us, TID ity of Insulin - 13:00: 17:39 MEALS+HS, [place] Lispro 00 :14 First dose Medical (HumaLOG) + on [place] Branch Fsbg 07/25/22 at Testing 0800, Until Discontinu ed, Routine furosemide No 60mg 60 mg, IV U nivers (LASIX) 07-25 Push, ity of injection 01:00: 13:56 Q12H, [place] 60 mg 00 :04 First dose Medical (after Branch last modificati on) on Fri07/24/22 at 2000, Until Discontinu ed, LORI insulin 2021- No 2U 2 Units, [facility] lispro 07-24 Subcutaneo ity of (human) [...] Routine insulin 2021- No 3U 3 Units, [facility] gl[facility]ine 07-24 Subcutaneo ity of (LANTUS 15:00: 14:27 us, ONCE, [place] U-100) 00 :00 1 dose, On Medical injection 3 Fri Branch Units 07/24/22 at 1000, Routine metoprolol Yes 50mg 50 mg, Unive rs succinate 07-24 Oral, ity of XL (TOPROL 14:15: DAILY, [place] XL) tablet 00 First dose Med ical 50 mg on Fri Branch 07/24/22 at 0915, Until Discontinu ed, Routine metoprolol 2021- No 50mg 50 mg, Univ ers succinate 07-24 Oral, ity of XL (TOPROL 14:15: 04:46 DAILY, [facility] s XL) tablet 00 :24 First dose [...] Rang e, Dosing and Testing: &nbs p;FOR [facility], [facility], AND [facility] ONLY - aPTT < 35: & [...] reached.&n bsp; &nbs p; __ &n bsp;FOR [facility] ONLY - aPTT < 40: & [...] Rang e, Dosing and Testing: &nbs p;FOR [facility], [facility], AND [facility] ONLY - aPTT < 35: & [...] 53 Starting Medi jose tablet 1 on [facility] tablet 07/23/22 at 1031, Until Discontinu ed, Routine, Pain (scale 4-6) HYDROcodone 0 2021- No 1{tbl} 1 tablet, Univers -acetaminop 07-23 09-18 Oral, ity of hen (NORCO 15:31: 04:46 Q6HPRN, [place] 5) 5-325 mg 53 :24 Starting Medi jose tablet 1 on Fri [place] tablet 07/23/22 at 1031, Until 07/27/22 at [...] [place] mg 00 First dose Medical on 07/22/22 at 0900, Until Discontinu ed, Routine losartan Yes 25mg 25 mg, Univers (COZAAR) 07-22 Oral, ity of tablet 25 14:00: DAILY, [place] mg 00 First dose Medical on [facility] 07/22/22 at 0900, Until Discontinu ed, Routine montelukast Yes 10mg 10 mg, Univ ers (SINGULAIR) 07-22 Oral, ity of tablet 10 14:00: DAILY, [place] mg 00 First dose Medical on [facility] 07/22/22 at 0900, Until Discontinu ed, Routine spironolact 2021- No 25mg 25 mg, Uni vers one 07-22 Oral, ity of (ALDACTONE) 14:00: 04:46 DAILY, [place] tablet 25 00 :24 First dose Medi jose mg on [facility] 07/22/22 at 0900, Until Discontinu ed, Routine aspirin No 81mg 81 mg, Univers chewable 07-22 Oral, ity of tablet 81 14:00: 04:46 DAILY, [place] mg 00 :24 First dose Medical on [facility] 07/22/22 at 0900, Until Discontinu ed, Routine losartan 2021- No 25mg 25 mg, Univer s (COZAAR) 07-22 Oral, ity of tablet 25 14:00: 04:46 DAILY, [place] mg 00 :24 First dose Medical on [facility] 07/22/22 at 0900, Until Discontinu ed, Routine montelukast 2021- No 10mg 10 mg, Uni vers (SINGULAIR) 07-22 Oral, ity of tablet 10 14:00: 04:46 DAILY, [place] mg 00 :24 First dose Medical on [facility] 07/22/22 at 0900, Until Discontinu ed, Routine metoprolol 2021- No 50mg 50 mg, Univ ers tartrate 07-22 Oral, BID ity o f (LOPRESSOR) 13:00: 14:10 MEALS, [place] as tablet 50 00 :14 First dose Medi jose mg on [facility] 07/22/22 at 0800, Until Discontinu ed, Routine atorvastati Yes 40mg 40 mg, Univ ers n (LIPITOR) 07-22 Oral, QHS, it y of tablet 40 02:00: First dose [place] mg 00 on [facility] 07/21/22 at Branch 2100, Until Discontinu ed, Routine atorvastati 2021- No 40mg 40 mg, Uni vers n (LIPITOR) 07-22 Oral, QHS, i ty of tablet 40 02:00: 04:46 First dose [place] mg 00 :24 on [facility] 07/21/22 at Branch 2100, Until Discontinu ed, Routine morpHINE (2 2021- No 2mg 2 mg, Slow Univers mg/mL) 07-22 IV Push, ity of injection 2 01:29: 15:32 Q6HPRN, [place] mg 07 :09 Starting Medical on [facility] 07/21/22 at 2029, Until 07/23/22 at 1032, Routine, Chest pain furosemide 2021- No 20mg 20 mg, IV U nivers (LASIX) 07-22 Push, ity of injection 01:00: 05:27 Q12H, [place] 20 mg 00 :42 First dose Medical (after Branch last reorder) on [place] 07/21/22 at 2000, Until Discontinu ed, LORI enoxaparin 2021- No 1mg/kg 100 mg Un rita (LOVENOX) 07-22 (rounded ity o f injection 01:00: 05:30 [place] 98.5 [place] 100 mg 00 :31 mg = 1 Medical mg/kg Branch ?98.5 kg), Subcutaneo us, Q12H, First dose (after last modificati on) on [place] 07/21/22 at 2000, Until Discontinu ed, Routine sulfur 2021- No [id number] 5mL 5 mL, Unive rs hexafluorid 07-21 Intravenou i ty of e microsphr 15:45: 15:45 s, ONCE, 1 [place] (LUMASON) 00 :00 dose, On Medica l injection 5 Sun Branch mL 07/21/22 at 1045, Routine
[employer] membership advisors approving Restricted medication : ANA LUISA GRIMM insulin 10U 10 Units, Univ ers glargine 07-21 [...] dose [place] Lispro 00 :26 on [facility] Medical (HumaLOG) + 07/20/22 at Br anch Fsbg 1900, Testing Until Discontinu ed, Routine glucagon Yes 1mg 1 mg, Univers (GLUCAGEN 07-20 Intramuscu ity of DIAGNOSTIC 23:48: lar, PRN, [place] KIT) 16 Starting Medical injection 1 on [facility] Branch 07/20/22 at 1848, Until Discontinu ed, LORI, Blood Glucose < or = 70 mg/dL and patient is unable to swallow or has mental changes. dextrose 50 Yes 25mL 25 mL, Univ ers % in water 07-20 Slow IV ity of (D50W) 23:48: Push, PRN, [place] injection 16 Starting Medica l 25 mL on [facility] Branch 07/20/22 at 1848, Until Discontinu ed, LORI, Blood Glucose < or = 70 mg/dL and patient is unable to swallow or has mental status changes. glucagon 2021- No 1mg 1 mg, Univers (GLUCAGEN 07-2018 Intramuscu ity of DIAGNOSTIC 23:48: 04:46 lar, PRN, [place] KIT) 16 :24 Starting Medical injection 1 on [facility] Branch mg 07/20/22 at 1848, Until 07/27/22 [...] status changes. metoprolol No 25mg 25 mg, [facility] ers tartrate 07-20 Oral, Q6H, ity of [...] 1730, Routine enoxaparin No 40mg 40 mg, Univ ers (LOVENOX) [...] 00 :00 dose, On Medica l mg [facility] Branch 07/20/22 at 1300, LORI furosemide 2021- No 20mg 20 mg, IV U nivers (LASIX) 07-20 Push, ity of injection 17:58: 18:02 ONCE, 1 [place] 20 mg 00 :00 dose, On Medical [facility] Branch 07/20/22 at 1300, LORI NaCl 0.9% 2021- No 500mL at 999 Univ ers (NS) bolus 07-20 mL/hr, 500 it y of infusion 17:00: 17:15 mL, IV [place] 500 mL 00 :00 Piggyback, Medical ONCE, 1 Branch dose, On [facility] 07/20/22 at 1200, STAT metoprolol 2021- No 5mg 5 mg, Slow Univers (LOPRESSOR) 07-20 IV Push, ity of injection 5 16:15: 16:16 ONCE, 1 [place] mg 00 :00 dose, On Medical [facility] Branch 07/20/22 at 1115, LORI Trelegy Trelegy 2019-0 2020- No Meghana 1 puff Com mon Ellipta Ellipta 2-12 06-11 [place] [facility] 00:00: 00:00 - [facility] 00 :00 [facility] HydrOXYzine HydrOXYzine Yes Meghana 1 tablet Common HCl HCl 05-11 [place] as needed Spirit 00:00: - [facility] 00 [facility] Ozempic Ozempic 2020- No Meghana 0.5 mg Com mon 05-11 0824 [place] [facility] 00:00: 00:00 - [facility] 00 :00 [facility] Januvia Januvia Yes Meghana as Common 11-11 [place] directed Spirit 00:00: - [facility] 00 [facility] ProAir ProAir Yes Meghana 2 puffs as Comm on RespiClick RespiClick [place] needed [facility] [place] 3 [place] 3 Yes Meghana 1 capsule Com mon [place] [facility] Montelukast Montelukast Yes Meghana 1 tablet Common Sodium Sodium [place] in the Spirit evening [facility] Lipitor Lipitor Yes Meghana 1 tablet Comm on [place] [facility] Losartan Losartan Yes Meghana 1 tablet Co mmon Potassium Potassium [place] [facility] it [facility] Metoprolol Metoprolol Yes Meghana 1 tablet Common Tartrate Tartrate [place] with food S pirit [facility] Metformin Metformin Yes Meghana 1 tablet Common HCl HCl [place] with a [facility] meal [facility] Immunizations Ordered Immunization Filled Immunization Date Status Commen ts Source Name Name FLUZONE HIGH DOSE FLUZONE HIGH DOSE 2019-09-14 Completed [facility] OVER 65 OVER 65 00:00:00 [facility] Vital Signs Vital Name Observation Time Observation Value Comments Source Systolic blood 2022-07-28 01:43:00 99 mm[Hg] Univer sity [facility] Diastolic blood 2022-07-28 01:43:00 58 [facility]Hg[facility] 2022-07-28 01:40:00 97 /min [facility] Body temperature 2022-07-28 01:40:00 36.56 Melvi [facility] Respiratory rate 2022-07-28 01:40:00 18 /min [facility] Oxygen saturation in 2022-07-28 01:40:00 90 /min [facility] Arterial blood by [facility] Pulse oximetry Branch Body height 2022-07-26 17:49:[address] [facility] Body weight 2022-07-26 17:49:[address] [facility] BMI 2022-07-26 17:49:00 32.23 kg/m2 [facility] Systolic blood 2022-07-26 23:31:00 102 mm[Hg] Univer sity of pressure [facility] Diastolic blood 2022-07-26 23:31:00 59 mm[Hg] [facility] Heart rate 2022-07-26 23:31:00 85 /min [facility] Body temperature 2022-07-26 23:31:00 36.56 Melvi [facility] Res[facility] rate 2022-07-26 23:24:00 19 /min [facility] Oxygen saturation in 2022-07-26 23:24:00 93 /min [facility] Arterial blood by [facility] Pulse oximetry Branch Body height 2022-07-26 17:49:[address] [facility] Body weight 2022-07-26 17:49:00 96.163 kg [facility] BMI 2022-07-26 17:49:00 32.23 kg/m2 [facility] Procedures Procedure Date / Time Performing Clinician Source Performed POCT GLUCOSE (AUTOMATED) 2022-07-27 16:45:00 Berna Alcantar [facility] POCT GLUCOSE (AUTOMATED) 2022-07-27 16:45:00 Berna Alcantar [facility] MAGNESIUM 2022-07-27 10:46:00 Colt Foxssica [facility] BASIC METABOLIC PANEL (NA, 2022-07-27 10:46:00 Flora Fox [facility] K, CL, CO2, GLUCOSE, BUN, Medica l Branch CREATININE, CA) N-TERMINAL PRO-BNP 2022-07-27 10:46:00 Flora Fox [facility] MAGNESIUM 2022-07-27 10:46:00 Dominique [facility] Branch BASIC METABOLIC PANEL (NA, 2022-07-27 10:46:00 Flora Fox [facility] K, CL, CO2, GLUCOSE, BUN, Medica l Branch CREATININE, CA) N-TERMINAL PRO-BNP 2022-07-27 10:46:00 Dominique [facility] y of [facility] POCT GLUCOSE (AUTOMATED) 2022-07-27 10:38:00 Keo Alcantarm Uni versity [facility] POCT GLUCOSE (AUTOMATED) 2022-07-27 10:38:00 KhKeo fernandezm Uni versity [facility] POCT GLUCOSE (AUTOMATED) 2022-07-27 04:51:00 KhbettyfeKeom Uni versity [facility] POCT GLUCOSE (AUTOMATED) 2022-07-27 04:51:00 Keo Alcantarm Uni versity [facility] POCT GLUCOSE (AUTOMATED) 2022-07-27 01:10:00 KhalifeDavidsam Uni versity [facility] POCT GLUCOSE (AUTOMATED) 2022-07-27 01:10:00 KhalifeDavidsam Uni versity [facility] POCT GLUCOSE (AUTOMATED) 2022-07-26 23:37:00 David Alcantarsam Uni versity [facility] POCT GLUCOSE (AUTOMATED) 2022-07-26 23:37:00 Berna Alcantar Uni versity [facility] ACTIVATED PARTIAL THRMPLAS 2022-07-26 23:10:00 [facility]PL[facility] 2022-07-26 23:10:00 [facility] CARDIAC CATHETERIZATION 2022-07-26 21:16:04 [facility] CARDIAC CATHETERIZATION 2022-07-26 21:16:04 Katharine [facility] ersity of Surgery Specialty [facility] CARDIAC CATHE[facility]IZATION 2022-07-26 21:16:04 [facility] CARDIAC CATHETERIZATION 2022-07-26 21:16:04 [facility] CARDIAC CATHETERIZATION 2022-07-26 21:16:04 [facility] CARDIAC CATHETERIZATION 2022-07-26 21:16:04 [facility] CARDIAC CATHETERIZATION 2022-07-26 21:16:04 [facility] CARDIAC CATHETERIZATION 2022-07-26 21:16:04 [facility] CATH PROCEDURE LOG 2022-07-26 20:55:04 Katharine [facility] CATH PROCEDURE LOG 2022-07-26 20:55:04 Katharine [facility] POCT GLUCOSE (AUTOMATED) 2022-07-26 16:20:00 Berna Alcantar [facility] POCT GLUCOSE (AUTOMATED) 2022-07-26 16:20:00 Berna Alcantar [facility] POCT GLUCOSE (AUTOMATED) 2022-07-26 12:30:00 Berna Alcantar [facility] POCT GLUCOSE (AUTOMATED) 2022-07-26 12:30:00 Berna Alcantar [facility] POCT GLUCOSE (AUTOMATED) 2022-07-26 11:08:00 Berna Alcantar [facility] POCT GLUCOSE (AUTOMATED) 2022-07-26 11:08:00 Berna Alcantar [facility] POCT GLUCOSE (AUTOMATED) 2022-07-26 08:52:00 Berna Alcantar [facility] POCT GLUCOSE (AUTOMATED) 2022-07-26 08:52:00 Berna Alcantar [facility] MAGNESIUM 2022-07-26 05:35:00 Tobias [facility] BASIC METABOLIC PANEL (NA, 2022-07-26 05:35:00 Tobias [facility] K, CL, CO2, GLUCOSE, BUN, Medica l Branch CREATININE, CA) ACTIVATED PARTIAL THRMPLAS 2022-07-26 05:35:00 Evelio Soni [facility] EXTRA TUBE LAV 2022-07-26 05:35:00 Katharine [facility] o f [facility] MAGNESIUM 2022-07-26 05:35:00 Tobias [facility] BASIC METABOLIC PANEL (NA, 2022-07-26 05:35:00 Tobias [facility] K, CL, CO2, GLUCOSE, BUN, Medica l Branch CREATININE, CA) ACTIVATED PARTIAL THRMPLAS 2022-07-26 05:35:00 Evelio Soni [facility] EXTRA TUBE LAV 2022-07-26 05:35:00 [facility]arine [facility] POCT GLUCOSE (AUTOMATED) 2022-07-26 05:20:00 [facility]) 2022-07-26 05:20:00 [facility] (AUTOMATED) 2022-07-26 01:45:00 [facility] (AUTOMATED) 2022-07-26 01:45:00 [facility] 2022-07-25 22:15:00 Tobias [facility] BASIC METABOLIC PANEL (NA, 2022-07-25 22:15:00 Tobias [facility] K, CL, CO2, GLUCOSE, BUN, Medica l Branch CREATININE, CA) ACTIVATED PARTIAL THRMPLAS 2022-07-25 22:15:00 Evelio Soni [facility] MAGNESIUM 2022-07-25 22:15:00 Tobias [facility] BASIC METABOLIC PANEL (NA, 2022-07-25 22:15:00 Tobias [facility] K, CL, CO2, GLUCOSE, BUN, Medica l Branch CREATININE, CA) ACTIVATED PARTIAL THRMPLAS 2022-07-25 22:15:00 Evelio Soni niversalberto [facility] POCT GLUCOSE (AUTOMATED) 2022-07-25 21:22:00 Berna Alcantar [facility] POCT GLUCOSE (AUTOMATED) 2022-07-25 21:22:00 Berna Alcantar [facility] POCT GLUCOSE (AUTOMATED) 2022-07-25 20:46:00 Berna Alcantar [facility] POCT GLUCOSE (AUTOMATED) 2022-07-25 20:46:00 Berna Alcantar [facility] POCT GLUCOSE (AUTOMATED) 2022-07-25 17:09:00 Berna Alcantar [facility] POCT GLUCOSE (AUTOMATED) 2022-07-25 17:09:00 Berna Alcantar [facility] HB ECG ROUTINE & RHYTHM 2022-07-25 14:53:13 [facility] PART[facility] THRMPLAS 2022-07-25 14:53:00 Evelio Soni niversalberto [facility] ACTIVATED PARTIAL THRMPLAS 2022-07-25 14:53:00 Evelio Soni niversalberto [facility] POCT GLUCOSE (AUTOMATED) 2022-07-25 13:12:00 Berna Alcantar [facility] POCT GLUCOSE (AUTOMATED) 2022-07-25 13:12:00 Berna Alcantar [facility] MAGNESIUM 2022-07-25 11:36:00 Tobias [facility] BASIC METABOLIC PANEL (NA, 2022-07-25 11:36:00 Tobias [facility] K, CL, CO2, GLUCOSE, BUN, Medica l Branch CREATININE, CA) CBC WITH DIFF 2022-07-25 11:36:00 Tobias [facility] MAGNESIUM 2022-07-25 11:36:00 Tobias [facility] BASIC METABOLIC PANEL (NA, 2022-07-25 11:36:00 Tobias [facility] K, CL, CO2, GLUCOSE, BUN, Medica l Branch CREATININE, CA) CBC WITH DIFF 2022-07-25 11:36:00 Tobias [facility] ACTIVATED PARTIAL THRMPLAS 2022-07-25 05:15:00 Evelio Soni [facility] ACTIVATED PARTIAL THRMPLAS 2022-07-25 05:15:00 [facility] POCT GLUCOSE (AUTOMATED) 2022-07-25 01:58:[address] [facility] POCT GLUCOSE (AUTOMATED) 2022-07-25 01:58:00 Berna Alcantar Uni [facility] MAGNESIUM 2022-07-24 22:34:00 Tobias [facility] BASIC METABOLIC PANEL (NA, 2022-07-24 22:34:00 Tobias [facility] K, CL, CO2, GLUCOSE, BUN, Medica l Branch CREATININE, CA) ACTIVATED PARTIAL THRMPLAS 2022-07-24 22:34:00 Evelio Soni [facility] MAGNESIUM 2022-07-24 22:34:00 Tobias [facility] BASIC METABOLIC PANEL (NA, 2022-07-24 22:34:00 Tobias [facility] K, CL, CO2, GLUCOSE, BUN, Medica l Branch CREATININE, CA) ACTIVATED PARTIAL THRMPLAS 2022-07-24 22:34:00 [facility] POCT GLUCOSE (AUTOMATED) 2022-07-24 20:43:00 Berna Alcantar [facility] Branch POCT GLUCOSE (AUTOMATED) 2022-07-24 20:43:00 Berna Alcantar [facility] POCT GLUCOSE (AUTOMATED) 2022-07-24 17:11:00 Berna Alcantar [facility] POCT GLUCOSE (AUTOMATED) 2022-07-24 17:11:00 Berna Alcantar [facility] POCT GLUCOSE (AUTOMATED) 2022-07-24 14:11:00 Berna Alcantar [facility] POCT GLUCOSE (AUTOMATED) 2022-07-24 14:11:00 AvinashbettyBerna rodriguez Uni versity [facility] ACTIVATED PARTIAL THRMPLAS 2022-07-24 11:37:00 Evelio Soni [facility] ACTIVATED PARTIAL THRMPLAS 2022-07-24 11:37:00 Evelio Soni [facility] MAGNESIUM 2022-07-24 05:51:00 Evelio Soni [facility] BASIC METABOLIC PANEL (NA, 2022-07-24 05:51:00 Evelio Soni [facility] K, CL, CO2, GLUCOSE, BUN, Medica l Branch CREATININE, CA) PROTHROMBIN TIME / INR 2022-07-24 05:51:00 Evelio Soni [facility] ACTIVATED PARTIAL THRMPLAS 2022-07-24 05:51:00 Evelio Snoi [facility] MAGNESIUM 2022-07-24 05:51:00 Evelio Soni [facility] BASIC METABOLIC PANEL (NA, 2022-07-24 05:51:00 Evelio Soni [facility] K, CL, CO2, GLUCOSE, BUN, Medica l Branch CREATININE, CA) PROTHROMBIN TIME / INR 2022-07-24 05:51:00 Evelio Soni [facility] ACTIVATED PARTIAL THRMPLAS 2022-07-24 05:51:00 Evelio Soni [facility] POCT GLUCOSE (AUTOMATED) 2022-07-24 01:53:00 [facility] 2022-07-24 01:53:00 [facility]ul Stephens [facility] PO[facility]SE (AUTOMATED) 2022-07-23 21:31:00 [facility]ul Stephens [facility] PO[facility]SE (AUTOMATED) 2022-07-23 21:31:00 Atul Stephens [facility] PO[facility]UCOSE (AUTOMATED) 2022-07-23 17:08:00 Atul Stephens [facility] PO[facility] GLUCOSE (AUTOMATED) 2022-07-23 17:08:00 Atul Stephens Rafaela [facility] POCT GLUCOSE (AUTOMATED) 2022-07-23 12:46:00 Atul Stephens Rafaela [facility] POCT GLUCOSE (AUTOMATED) 2022-07-23 12:46:00 Atul Stephens Rafaela [facility] MAGNESIUM 2022-07-23 09:15:00 [facility] BASIC METABOLIC PANEL (NA, 2022-07-23 09:15:00 Goerge Vizcaino [facility] K, CL, CO2, GLUCOSE, BUN, Medica l Branch CREATININE, CA) CBC WITH DIFF 2022-07-23 09:15:00 [facility] N-TERMINAL PRO-BNP 2022-07-23 09:15:00 George Vizcaino [facility] MAGNESIUM 2022-07-23 09:15:00 [facility] BASIC METABOLIC PANEL (NA, 2022-07-23 09:15:00 [facility], [facility], CO2, GLUCOSE, BUN, Medica l Branch CREATININE, CA) CBC WITH DIFF 2022-07-23 09:15:00 [facility] N-TERMINAL PRO-BNP 2022-07-23 09:15:00 George Vizcaino [facility] POCT GLUCOSE (AUTOMATED) 2022-07-23 02:12:00 Atul Stephens [facility] POCT GLUCOSE (AUTOMATED) 2022-07-23 02:12:00 Atul Stephens [facility] POCT GLUCOSE (AUTOMATED) 2022-07-22 21:12:00 Atul Stephens [facility] POCT GLUCOSE (AUTOMATED) 2022-07-22 21:12:00 Atul Stephens [facility] POCT GLUCOSE (AUTOMATED) 2022-07-22 16:30:00 Atul Stephens [facility] POCT GLUCOSE (AUTOMATED) 2022-07-22 16:30:00 Atul Stephens [facility] POCT GLUCOSE (AUTOMATED) 2022-07-22 12:51:00 Atul Stephens [facility] POCT GLUCOSE (AUTOMATED) 2022-07-22 12:51:00 Atul Stephens [facility] PHOSPHORUS 2022-07-22 08:19:00 Atul Stephens [facility] MAGNESIUM 2022-07-22 08:19:00 Angelo [facility] HEPATIC FUNCTION PANEL 2022-07-22 08:19:00 Atul Stephens [facility] ([id number]) (ALB,T.PRO,BILI Medical Branch T,BU/BC,ALT,AST,ALK PHOS) BASIC METABOLIC PANEL (NA, 2022-07-22 08:19:00 Atul Stephens [facility] K, CL, CO2, GLUCOSE, BUN, Medica l Branch CREATININE, CA) CBC WITH DIFF 2022-07-22 08:19:00 Angelo [facility] N-TERMINAL PRO-BNP 2022-07-22 08:19:00 Atul Stephens [facility] PHOSPHORUS 2022-07-22 08:19:00 Atul Stephens [facility] MAGNESIUM 2022-07-22 08:19:00 Atul Stephens [facility] HEPATIC FUNCTION PANEL 2022-07-22 08:19:00 Atul Stephens [facility] ([id number]) (ALB,T.PRO,BILI Medical Branch T,BU/BC,ALT,AST,ALK PHOS) BASIC METABOLIC PANEL (NA, 2022-07-22 08:19:00 Atul Stephens [facility] K, CL, CO2, GLUCOSE, BUN, Medica l Branch CREATININE, CA) CBC WITH DIFF 2022-07-22 08:19:00 Atul Stephens o f [facility] N-TERMINAL PRO-BNP 2022-07-22 08:19:00 [facility] (AUTOMATED) 2022-07-22 01:44:00 Atul Stephens [facility] POCT GLUCOSE (AUTOMATED) 2022-07-22 01:44:00 Atul Stephens [facility] POCT GLUCOSE (AUTOMATED) 2022-07-21 21:52:00 Atul Stephens [facility] POCT GLUCOSE (AUTOMATED) 2022-07-21 21:52:00 Atul Stephens [facility] POCT GLUCOSE (AUTOMATED) 2022-07-21 16:43:00 Atul Stephens [facility] POCT GLUCOSE (AUTOMATED) 2022-07-21 16:43:00 Atul Stephens [facility] TRANSTHORACIC ECHO (TTE) 2022-07-21 15:28:00 Atul Stephens [facility] COMPLETE W/ CONTRAST Medical [facility] TRANSTHORACIC ECHO (TTE) 2022-07-21 15:28:00 Atul Stephens [facility] COMPLETE W/ CONTRAST Medical [facility] POCT GLUCOSE (AUTOMATED) 2022-07-21 15:00:00 Atul Stephens [facility] POCT GLUCOSE (AUTOMATED) 2022-07-21 15:00:00 Atul Stephens [facility] POCT GLUCOSE (AUTOMATED) 2022-07-21 13:04:00 Atul Stephens [facility] POCT GLUCOSE (AUTOMATED) 2022-07-21 13:04:00 Atul Stephens [facility] MAGNESIUM 2022-07-21 09:41:00 Atul Stephens [facility] TROPONIN I 2022-07-21 09:41:00 Atul Stephens [facility] BASIC METABOLIC PANEL (NA, 2022-07-21 09:41:00 Atul Stephens [facility] K, CL, CO2, GLUCOSE, BUN, Medica l Branch CREATININE, CA) LIPID PANEL (18120)(TOTAL 2022-07-21 09:41:00 Desmond Ana Luisa [facility] CHOLESTEROL, [facility] TRIGLYCERIDES, HDL) CBC WITH DIFF 2022-07-21 09:41:00 Angelo [facility] N-TERMINAL PRO-BNP 2022-07-21 09:41:00 Atul Stephens [facility] MAGNESIUM 2022-07-21 09:41:00 Atul Stephens [facility] TROPONIN I 2022-07-21 09:41:00 Atul Stephens [facility] BASIC METABOLIC PANEL (NA, 2022-07-21 09:41:00 Atul Stephens [facility] [place] K, CL, CO2, GLUCOSE, BUN, Medica l Branch CREATININE, CA) LIPID PANEL (81120)(TOTAL 2022-07-21 09:41:00 Ana Luisa Grimm [facility] CHOLESTEROL, Medical Branch TRIGLYCERIDES, HDL) CBC WITH DIFF 2022-07-21 09:41:00 Atul Stephens [facility] N-TERMINAL PRO-BNP 2022-07-21 09:41:00 Atul Stephens [facility] POCT GLUCOSE (AUTOMATED) 2022-07-21 04:09:00 Atul Stephens [facility] POCT GLUCOSE (AUTOMATED) 2022-07-21 04:09:00 Atul Stephens [facility] BLOOD CULTURE SCREEN 2022-07-21 01:45:00 Atul Stephens [facility] BLOOD CULTURE WORKUP 2022-07-21 01:45:00 Atul Stephens [facility] GRAM POSITIVE BLOOD 2022-07-21 01:45:00 Atul Stephens [facility] PATHOGENS DNA [facility] PROBE-AEROBIC BLOOD CULTURE SCREEN 2022-07-21 01:45:00 Atul Stephens [facility] BLOOD CULTURE WORKUP 2022-07-21 01:45:00 Atul Stephens [facility] GRAM POSITIVE BLOOD 2022-07-21 01:45:00 Atul [facility] PATHOGENS DNA [facility] PROBE-AEROBIC POCT GLUCOSE (AUTOMATED) 2022-07-21 01:26:00 Atul Stephens [facility] POCT GLUCOSE (AUTOMATED) 2022-07-21 01:26:00 Atul Stephens [facility] BLOOD CULTURE SCREEN 2022-07-20 23:43:00 Atul Stephens [facility] BLOOD CULTURE SCREEN 2022-07-20 23:43:00 Atul Stephens [facility] POCT GLUCOSE (AUTOMATED) 2022-07-20 22:24:00 Atul Stephens [facility] POCT GLUCOSE (AUTOMATED) 2022-07-20 22:24:00 Atul Stephens [facility] URINALYSIS 2022-07-20 17:41:00 Charlene Butt [facility] URINALYSIS 2022-07-20 17:41:00 Charlene Butt [facility] XR CHEST 1 VW 2022-07-20 16:16:00 Filomena [facility] XR CHEST 1 VW 2022-07-20 16:16:00 Filomena [facility] TROPONIN I 2022-07-20 16:10:00 Filomena [facility] COMP. METABOLIC PANEL 2022-07-20 16:10:00 Charlene Butt [facility] ([id number]) [facility] CBC WITH DIFF 2022-07-20 16:10:00 Filomena [facility] GLYCOSYLATED HEMOGLOBIN 2022-07-20 16:10:00 Atul Stephens [facility] (A1C) Medical Branch PROTHROMBIN TIME / INR 2022-07-20 16:10:00 Charlene Butt [facility] ACTIVATED PARTIAL THRMPLAS 2022-07-20 16:10:00 Saniya Butt [facility] N-TERMINAL PRO-BNP 2022-07-20 16:10:00 Charlene Butt [facility] COVID-19 (ID NOW RAPID 2022-07-20 16:10:00 Charlene Butt [facility] TESTING) Medical Branch LAB ONLY COVID 2022-07-20 16:10:00 Charlene Butt [facility] TROPONIN I 2022-07-20 16:10:00 Charlene Butt [facility] COMP. METABOLIC PANEL 2022-07-20 16:10:00 Charlene Butt [facility] ([id number]) Medical Branch CBC WITH DIFF 2022-07-20 16:10:00 Charlene Butt [facility] GLYCOSYLATED HEMOGLOBIN 2022-07-20 16:10:00 Atul Stephens [facility] (A1C) Medical Branch PROTHROMBIN TIME / INR 2022-07-20 16:10:00 Charlene Butt [facility] ACTIVATED PARTIAL THRMPLAS 2022-07-20 16:10:00 Saniya Butt [facility] N-TERMINAL PRO-BNP 2022-07-20 16:10:00 Charlene Butt [facility] COVID-19 (ID NOW RAPID 2022-07-20 16:10:00 Charlene Butt [facility] TESTING) Medical Branch LAB ONLY COVID 2022-07-20 16:10:00 Charlene Butt [facility] Branch HB ECG ROUTINE & RHYTHM 2022-07-20 16:05:41 Charlene Butt [facility] STRIP [facility] Branch HB ECG ROUTINE & RHYTHM 2022-07-20 16:05:41 Charlene Butt [facility] NOTICE OF PRIVACY 2022-07-20 15:52:39 Doctor Unassigned, [facility] NOTICE OF PRIVACY 2022-07-20 15:52:39 Doctor Unassigned, [facility] ADMISSION 2022-07-20 05:01:00 Doctor Unassigned, [facility] AD[facility]ION 2022-07-20 05:01:00 Doctor Unassigned, [facility] Encounters Start End Encounter Admission Attending Care Care Encounter Source Date/Time Date/Time Type Type Clinicians Facility Department ID 2022-09-03 Outpatient 3 [id number] [place] [id number] [facility] 08:24:57 [facility] [place] 2022-09-02 Outpatient 3 [id number] [facility] REF [id number] [facility] 14:07:05 [facility] [place] 2021-12-05 Outpatient [facility] [id number] Common 11:06:38 Meghana [address] [facility] 2022-08-15 2022-08-28 Inpatient 3 Julio ENCPL CRD [id number] [facility] 18:17:00 12:00:00 Jose [facility] [place] 2022-07-29 2022-07-29 Transition ARIANE FosterKhadar [id number] Univers 00:00:00 00:00:00 of Care [place] [id number] [id number] [facility] 403 Branch 2022-07-20 2022-07-27 Hospital Charlene Butt [id number] Univers 11:00:00 21:45:00 Encounter Atul Stephens [id number] ity of [facility] 4.2.7.2 .686 [place] [id number] [facility] 089 Branch 2022-07-20 2022-07-27 Inpatient X KATHARINE [facility] [id number] Univers 11:00:00 21:45:00 BERNA ity [facility] 2022-07-26 2022-07-26 Surgery JAMAL Cannon [id number] Univers 18:03:00 21:03:00 [place] GORDON [id number] it y [facility] 4.2.7.2.686 [facility] [id number] [facility] 840 Branch 2020-04-04 2020-04-04 [facility] [id number] Common 13:00:00 13:00:[address] [facility] 2020-03-22 2020-03-22 [facility] [id number] Common 15:20:00 15:20:[address] [facility] 2019-12-22 2019-12-22 [facility] [id number] Common 10:40:00 10:40:[address] [facility] 2019-12-15 2019-12-15 [facility] [id number] Common 14:00:00 14:00:[address] [facility] 2019-09-14 2019-09-14 Out[facility] [id number] Common 13:20:00 13:20:[address] [facility] 2019-05-11 2019-05-11 Out[facility] [id number] Common 13:00:00 13:00:[address] [facility] 2018-11-11 2018-11-11 [facility] [id number] Common 13:00:00 13:00:[address] [facility] 2018-10-19 2018-10-19 Out[facility] [id number] Common 08:30:00 08:30:[address] [facility] 2018-04-22 2018-04-22 Outpatient Lynsey Velez 13 [id number] Common 14:00:00 14:00:[address] [facility] Results Test Description Test Time Test Comments [...] Interpretation Comments POCT GLU (test code = 5853956533) 264 mg/dL 70-110 H Lab Interpretation (test code = Abnormal 92240-7) [facility]27 17:05:15 Test Item Value Reference Range Interpretation Comments POCT GLU (test code = [id number]) 264 mg/dL 70-110 H Lab Interpretation (test code = Abnormal 05007-0) [facility] [id number] 15:17:32 Test Item Value Reference Range Interpretation Comments NT-proBNP (test code 1090 pg/mL See_Comment H [Autom ated = [id number]) message] The system which generated this result transmitted reference range : <=125. The reference range was not used to interpret this result as normal/abnormal . ROSLYN (test code = ROSLYN) Biotin has been reported to cause a negative bias, interpret results relative to patient's use of biotin. Lab Interpretation Abnormal (test code = 16936-7) [facility] [id number] 15:17:32 Test Item Value Reference Range Interpretation Comments NT-proBNP (test code 1090 pg/mL See_Comment H [Autom ated = [id number]) message] The system which generated this result transmitted reference range : <=125. The reference range was not used to interpret this result as normal/abnormal . ROSLYN (test code = ROSLYN) Biotin has been reported to cause a negative bias, interpret results relative to patient's use of biotin. Lab Interpretation Abnormal (test code = 61634-6) [facility]-17 11:45:45 Test Item Value Reference Range Interpretation Comments MAGNESIUM (test code = 6695034844) 1.9 mg/dL 1.7-2.4 Lab Interpretation (test code = Normal 94810-6) [facility]OLIC PAN[facility] (NA, K, CL, CO2, GLUCOSE, BUN, CREATININE, CA)2022-07-27 11:45:45 Test Item Value Reference Range Interpretation Comments NA (test code = 130 mmol/L 135-145 L [id number]) K (test code = 4.1 mmol/L 3.5-5 3035895758) CL (test code = 89 mmol/L 98-108 L 5470295927) CO2 TOTAL (test code = 37 mmol/L 23-31 H 5635517355) AGAP (test code = 2-16 6858219962) BUN (test code = 32 mg/dL 7-23 H 6554420873) GLUCOSE (test code = 180 mg/dL 70-110 H 4329294805) CREATININE (test code = 0.81 mg/dL 0.6-1.25 8872908924) CALCIUM (test code = 8.5 mg/dL 8.6-10.6 L 0814789111) eGFR (test code = mL/min/1.73m2 0238579811) ROSLYN (test code = ROSLYN) Association of [...] tests). Lab Interpretation Abnormal (test code = 94237-8) [facility]2022-[facility]-17 11:45:45 Test Item Value Reference Range Interpretation Comments MAGNESIUM (test code = 2545798619) 1.9 mg/dL 1.7-2.4 Lab Interpretation (test code = Normal 97512-5) [facility]OLIC PAN[facility] (NA, K, CL, CO2, GLUCOSE, BUN, CREATININE, CA)2022-07-27 11:45:45 Test Item Value Reference Range Interpretation Comments NA (test code = 130 mmol/L 135-145 L 6506983930) K (test code = 4.1 mmol/L 3.5-5 9893117993) CL (test code = 89 mmol/L 98-108 L 6822301317) CO2 TOTAL (test code = 37 mmol/L 23-31 H 3763968840) AGAP (test code = 2-16 9606493079) BUN (test code = 32 mg/dL 7-23 H 3660337293) GLUCOSE (test code = 180 mg/dL 70-110 H 2141927741) CREATININE (test code = 0.81 mg/dL 0.6-1.25 2882063332) CALCIUM (test code = 8.5 mg/dL 8.6-10.6 L 7741150082) eGFR (test code = mL/min/1.73m2 8351887246) ROSLYN (test code = ROSLYN) Association of [...] tests). Lab Interpretation Abnormal (test code = 64050-4) [facility] 10:39:46 Test Item Value Reference Range Interpretation Comments POCT GLU (test code = 6281558176) 198 mg/dL 70-110 H Lab Interpretation (test code = Abnormal 17680-9) [facility]2022-07-27 10:39:46 Test Item Value Reference Range Interpretation Comments POCT GLU (test code = 8437746019) 198 mg/dL 70-110 H Lab Interpretation (test code = Abnormal 45407-7) [facility]2022-07-27 04:52:50 Test Item Value Reference Range Interpretation Comments POCT GLU (test code = 2666122098) 213 mg/dL 70-110 H Lab Interpretation (test code = Abnormal 23915-3) [facility]2022-07-27 04:52:50 Test Item Value Reference Range Interpretation Comments POCT GLU (test code = 2261066477) 213 mg/dL 70-110 H Lab Interpretation (test code = Abnormal 02162-8) [facility]2022-07-27 01:10:58 Test Item Value Reference Range Interpretation Comments POCT GLU (test code = 8675636061) 284 mg/dL 70-110 H Lab Interpretation (test code = Abnormal 70219-0) [facility]2022-07-27 01:10:58 Test Item Value Reference Range Interpretation Comments POCT GLU (test code = 8640930328) 284 mg/dL 70-110 H Lab Interpretation (test code = Abnormal 68890-2) [facility]2022-07-26 23:39:10 Test Item Value Reference Range Interpretation Comments POCT GLU (test code = 9731195515) 199 mg/dL 70-110 H Lab Interpretation (test code = Abnormal 01880-2) [facility]2022-07-26 23:39:10 Test Item Value Reference Range Interpretation Comments POCT GLU (test code = 6439392291) 199 mg/dL 70-110 H Lab Interpretation (test code = Abnormal 34759-1) [facility] (for use with Heparin Infusion)2022-07-26 23:32:33 Test Item Value Reference Range Interpretation Comments APTT Patient (test code = See_Comment [ Automated message] 3173-2) The system [employer] generated this result transmitted ref erence range: 26 - 36 Seconds. The re ference range was not u sed to interpret this result as normal/abnor mal. Lab Interpretation (test Normal code = 95606-0) [facility] 23:32:33 Test Item Value Reference Range Interpretation Comments APTT Patient (test code = See_Comment [ Automated message] 3173-2) The system [employer] generated this result transmitted ref erence range: 26 - 36 Seconds. The re ference range was not u sed to interpret this result as normal/abnor mal. Lab Interpretation (test Normal code = 26423-8) [facility]2022-07-26 16:22:25 Test Item Value Reference Range Interpretation Comments POCT GLU (test code = 7768124261) 167 mg/dL 70-110 H Lab Interpretation (test code = Abnormal 20802-6) [facility]2022-07-26 16:22:25 Test Item Value Reference Range Interpretation Comments POCT GLU (test code = 7195063360) 167 mg/dL 70-110 H Lab Interpretation (test code = Abnormal 48485-5) [facility]2022-07-26 12:31:04 Test Item Value Reference Range Interpretation Comments POCT GLU (test code = 0784867664) 164 mg/dL 70-110 H Lab Interpretation (test code = Abnormal 06349-1) [facility])2022-07-26 12:31:04 Test Item Value Reference Range Interpretation Comments POCT GLU (test code = 3088086234) 164 mg/dL 70-110 H Lab Interpretation (test code = Abnormal 39469-2) [facility]2022-07-26 11:09:37 Test Item Value Reference Range Interpretation Comments POCT GLU (test code = 9848843465) 184 mg/dL 70-110 H Lab Interpretation (test code = Abnormal 05375-1) [facility])2022-07-26 11:09:37 Test Item Value Reference Range Interpretation Comments POCT GLU (test code = 9200739951) 184 mg/dL 70-110 H Lab Interpretation (test code = Abnormal 67966-0) [facility])2022-07-26 08:53:59 Test Item Value Reference Range Interpretation Comments POCT GLU (test code = 1738784470) 200 mg/dL 70-110 H Lab Interpretation (test code = Abnormal 62772-6) [facility])2022-07-26 08:53:59 Test Item Value Reference Range Interpretation Comments POCT GLU (test code = 4114430681) 200 mg/dL 70-110 H Lab Interpretation (test code = Abnormal 36369-1) [facility]2022-07-26 05:20:56 Test Item Value Reference Range Interpretation Comments POCT GLU (test code = 7395976932) 197 mg/dL 70-110 H Lab Interpretation (test code = Abnormal 07821-0) [facility]2022-07-26 05:20:56 Test Item Value Reference Range Interpretation Comments POCT GLU (test code = 0460450429) 197 mg/dL 70-110 H Lab Interpretation (test code = Abnormal 50446-5) [facility] CULTURE [id number] 03:01:42 Test Item Value Reference Range Interpretation Comments Blood Culture-Aerobic No organisms No growth Previo us (test code = 65371-9) isolated prelim inary verified result was Culture [...] Culture-Anaerobic isolated preliminar y (test code = 09421-5) verifi ed result was Culture In Progress [...] CDT Lab Interpretation Normal (test code = 02480-1) [facility] CULTURE [id number] 03:01:42 Test Item Value Reference Range Interpretation Comments Blood Culture-Aerobic No organisms No growth Previo us (test code = 12372-0) isolated prelim inary verified result was Culture [...] Culture-Anaerobic isolated preliminar y (test code = 51505-9) verifi ed result was Culture In Progress [...] CDT Lab Interpretation Normal (test code = 22838-0) [facility]2022-07-26 01:46:28 Test Item Value Reference Range Interpretation Comments POCT GLU (test code = 7711204177) 142 mg/dL 70-110 H Lab Interpretation (test code = Abnormal 45457-5) [facility])2022-07-26 01:46:28 Test Item Value Reference Range Interpretation Comments POCT GLU (test code = 1940090492) 142 mg/dL 70-110 H Lab Interpretation (test code = Abnormal 11659-6) [facility])2022-07-25 21:23:27 Test Item Value Reference Range Interpretation Comments POCT GLU (test code = 2005927184) 159 mg/dL 70-110 H Lab Interpretation (test code = Abnormal 78515-0) [facility])2022-07-25 21:23:27 Test Item Value Reference Range Interpretation Comments POCT GLU (test code = 1653859120) 159 mg/dL 70-110 H Lab Interpretation (test code = Abnormal 44111-1) [facility])2022-07-25 20:47:32 Test Item Value Reference Range Interpretation Comments POCT GLU (test code = 7496340013) 151 mg/dL 70-110 H Lab Interpretation (test code = Abnormal 48392-0) [facility])2022-07-25 20:47:32 Test Item Value Reference Range Interpretation Comments POCT GLU (test code = 1808195136) 151 mg/dL 70-110 H Lab Interpretation (test code = Abnormal 14502-0) [facility]2022-07-25 17:16:01 Test Item Value Reference Range Interpretation Comments POCT GLU (test code = 4166889585) 389 mg/dL 70-110 H Lab Interpretation (test code = Abnormal 45438-1) [facility])2022-07-25 17:16:01 Test Item Value Reference Range Interpretation Comments POCT GLU (test code = 3932309809) 389 mg/dL 70-110 H Lab Interpretation (test code = Abnormal 51677-4) [facility] 15:08:51 Test Item Value Reference Range Interpretation Comments APTT Patient (test code = See_Comment [ Automated message] 3173-2) The system [employer] generated this result transmitted ref erence range: 26 - 36 Seconds. The re ference range was not u sed to interpret this result as normal/abnor mal. Lab Interpretation (test Normal code = 33172-6) [facility] (for use with Heparin Infusion)2022-07-25 15:08:51 Test Item Value Reference Range Interpretation Comments APTT Patient (test code = See_Comment [ Automated message] 3173-2) The system [employer] generated this result transmitted ref erence range: 26 - 36 Seconds. The re ference range was not u sed to interpret this result as normal/abnor mal. Lab Interpretation (test Normal code = 86788-3) [facility]2022-07-25 13:22:34 Test Item Value Reference Range Interpretation Comments POCT GLU (test code = 1767348471) 168 mg/dL 70-110 H Lab Interpretation (test code = Abnormal 53243-5) [facility])2022-07-25 13:22:34 Test Item Value Reference Range Interpretation Comments POCT GLU (test code = 4639016889) 168 mg/dL 70-110 H Lab Interpretation (test code = Abnormal 58498-7) [facility]2022-07-25 01:59:34 Test Item Value Reference Range Interpretation Comments POCT GLU (test code = 9690850097) 202 mg/dL 70-110 H Lab Interpretation (test code = Abnormal 21645-3) [facility]2022-07-25 01:59:34 Test Item Value Reference Range Interpretation Comments POCT GLU (test code = 6067294848) 202 mg/dL 70-110 H Lab Interpretation (test code = Abnormal 87019-7) [facility] METABOLIC PANEL (NA, K, CL, CO2, GLUCOSE, BUN, CREATININE, CA)2022-07-24 23:06:12 Test Item Value Reference Range Interpretation Comments NA (test code = 135 mmol/L 135-145 8724201933) K (test code = 4.1 mmol/L 3.5-5 5262724891) CL (test code = 95 mmol/L 98-108 L 7714989278) CO2 TOTAL (test code = 39 mmol/L 23-31 H 8833745631) AGAP (test code = 2-16 L 3219205169) BUN (test code = 16 mg/dL 7-23 6326680697) GLUCOSE (test code = 140 mg/dL 70-110 H 2509178517) CREATININE (test code = 0.59 mg/dL 0.6-1.25 L 0659882494) CALCIUM (test code = 8.4 mg/dL 8.6-10.6 L 1925500385) eGFR (test code = mL/min/1.73m2 3786194901) ROSLYN (test code = ROSLYN) Association of [...] tests). Lab Interpretation Abnormal (test code = 22771-6) [facility] Test Item Value Reference Range Interpretation Comments MAGNESIUM (test code = 4394062374) 2.1 mg/dL 1.7-2.4 Lab Interpretation (test code = Normal 49560-5) [facility] (NA, K, CL, CO2, GLUCOSE, BUN, CREATININE, CA)2022-07-24 23:06:12 Test Item Value Reference Range Interpretation Comments NA (test code = 135 mmol/L 135-145 4941214789) K (test code = 4.1 mmol/L 3.5-5 8962087782) CL (test code = 95 mmol/L 98-108 L 8212697664) CO2 TOTAL (test code = 39 mmol/L 23-31 H 6406346397) AGAP (test code = 2-16 L 9427332384) BUN (test code = 16 mg/dL 7-23 7308726233) GLUCOSE (test code = 140 mg/dL 70-110 H 6495227696) CREATININE (test code = 0.59 mg/dL 0.6-1.25 L 1676048741) CALCIUM (test code = 8.4 mg/dL 8.6-10.6 L 7310030234) eGFR (test code = mL/min/1.73m2 6212566691) ROSLYN (test code = ROSLYN) Association of [...] tests). Lab Interpretation Abnormal (test code = 84432-7) [facility]06:12 Test Item Value Reference Range Interpretation Comments MAGNESIUM (test code = 0472224870) 2.1 mg/dL 1.7-2.4 Lab Interpretation (test code = Normal 51016-9) [facility]22-[facility]-24 23:00:29 Test Item Value Reference Range Interpretation Comments APTT Patient (test code See_Comment H [Au tomated message] = 3173-2) The system [employer] generated this result transmitted ref erence range: 26 - 36 Seconds. The reference range was not used to int erpret this result as normal/abnormal . Lab Interpretation (test Abnormal code = 74259-3) [facility]-24 23:00:29 Test Item Value Reference Range Interpretation Comments APTT Patient (test code See_Comment H [Au tomated message] = 3173-2) The system [employer] generated this result transmitted ref erence range: 26 - 36 Seconds. The reference range was not used to int erpret this result as normal/abnormal . Lab Interpretation (test Abnormal code = 22476-1) [facility]2022-07-24 20:44:06 Test Item Value Reference Range Interpretation Comments POCT GLU (test code = 6070095995) 161 mg/dL 70-110 H Lab Interpretation (test code = Abnormal 55601-0) [facility]2022-07-24 20:44:06 Test Item Value Reference Range Interpretation Comments POCT GLU (test code = 5380952352) 161 mg/dL 70-110 H Lab Interpretation (test code = Abnormal 68006-7) [facility]2022-07-24 17:17:45 Test Item Value Reference Range Interpretation Comments POCT GLU (test code = 3866138536) 257 mg/dL 70-110 H Lab Interpretation (test code = Abnormal 33885-8) [facility]2022-07-24 17:17:45 Test Item Value Reference Range Interpretation Comments POCT GLU (test code = 9858942118) 257 mg/dL 70-110 H Lab Interpretation (test code = Abnormal 64920-8) [facility]2022-07-24 14:12:13 Test Item Value Reference Range Interpretation Comments POCT GLU (test code = 0175576236) 201 mg/dL 70-110 H Lab Interpretation (test code = Abnormal 79761-1) [facility]2022-07-24 14:12:13 Test Item Value Reference Range Interpretation Comments POCT GLU (test code = 6440373205) 201 mg/dL 70-110 H Lab Interpretation (test code = Abnormal 58895-3) [facility]2022-07-24 01:57:51 Test Item Value Reference Range Interpretation Comments POCT GLU (test code = 3284165867) 214 mg/dL 70-110 H Lab Interpretation (test code = Abnormal 15373-5) [facility]2022-07-24 01:57:51 Test Item Value Reference Range Interpretation Comments POCT GLU (test code = 9119555451) 214 mg/dL 70-110 H Lab Interpretation (test code = Abnormal 51774-0) [facility]2022-07-23 21:55:56 Test Item Value Reference Range Interpretation Comments POCT GLU (test code = 3617214631) 184 mg/dL 70-110 H Lab Interpretation (test code = Abnormal 66593-0) [facility]2022-07-23 21:55:56 Test Item Value Reference Range Interpretation Comments POCT GLU (test code = 6255272452) 184 mg/dL 70-110 H Lab Interpretation (test code = Abnormal 18105-1) [facility]2022-07-23 17:27:48 Test Item Value Reference Range Interpretation Comments POCT GLU (test code = 1903147261) 259 mg/dL 70-110 H Lab Interpretation (test code = Abnormal 26981-5) [facility]2022-07-23 17:27:48 Test Item Value Reference Range Interpretation Comments POCT GLU (test code = 9239331145) 259 mg/dL 70-110 H Lab Interpretation (test code = Abnormal 84786-6) [facility]2022-07-23 13:05:59 Test Item Value Reference Range Interpretation Comments POCT GLU (test code = 7567053507) 154 mg/dL 70-110 H Lab Interpretation (test code = Abnormal 47389-5) [facility]2022-07-23 13:05:59 Test Item Value Reference Range Interpretation Comments POCT GLU (test code = 7891799849) 154 mg/dL 70-110 H Lab Interpretation (test code = Abnormal 79224-4) [facility]2022-07-23 09:58:20 Test Item Value Reference Range Interpretation Comments POCT GLU (test code = 7478821547) 177 mg/dL 70-110 H Lab Interpretation (test code = Abnormal 26921-9) [facility]2022-07-23 09:58:20 Test Item Value Reference Range Interpretation Comments POCT GLU (test code = 2726756929) 177 mg/dL 70-110 H Lab Interpretation (test code = Abnormal 36087-2) [facility]2022-07-22 21:30:57 Test Item Value Reference Range Interpretation Comments POCT GLU (test code = 2574300978) 194 mg/dL 70-110 H Lab Interpretation (test code = Abnormal 07565-6) [facility]2022-07-22 21:30:57 Test Item Value Reference Range Interpretation Comments POCT GLU (test code = 0951252270) 194 mg/dL 70-110 H Lab Interpretation (test code = Abnormal 74767-8) [facility]2022-07-22 16:52:50 Test Item Value Reference Range Interpretation Comments POCT GLU (test code = 2504206968) 197 mg/dL 70-110 H Lab Interpretation (test code = Abnormal 18037-0) [facility]2022-07-22 16:52:50 Test Item Value Reference Range Interpretation Comments POCT GLU (test code = 6143298902) 197 mg/dL 70-110 H Lab Interpretation (test code = Abnormal 45343-3) [facility]2022-07-22 13:22:34 Test Item Value Reference Range Interpretation Comments POCT GLU (test code = 9957019784) 150 mg/dL 70-110 H Lab Interpretation (test code = Abnormal 05307-2) [facility]2022-07-22 13:22:34 Test Item Value Reference Range Interpretation Comments POCT GLU (test code = 7243618126) 150 mg/dL 70-110 H Lab Interpretation (test code = Abnormal 83329-8) [id number] 09:38:27 Test Item Value Reference Range Interpretation Comments NT-proBNP (test code 2160 pg/mL See_Comment H [Autom ated = 2944965063) message] The system which generated this result transmitted reference range : <=125. The reference range was not used to interpret this result as normal/abnormal . ROSLYN (test code = ROSLYN) Biotin has been reported to cause a negative bias, interpret results relative to patient's use of biotin. Lab Interpretation Abnormal (test code = 19116-8) [id number] 09:38:27 Test Item Value Reference Range Interpretation Comments NT-proBNP (test code 2160 pg/mL See_Comment H [Autom ated = 1341252109) message] The system which generated this result transmitted reference range : <=125. The reference range was not used to interpret this result as normal/abnormal . ROSLYN (test code = ROSLYN) Biotin has been reported to cause a negative bias, interpret results relative to patient's use of biotin. Lab Interpretation Abnormal (test code = 84408-2) [facility] 09:31:29 Test Item Value Reference Range Interpretation Comments MAGNESIUM (test code = 6791465468) 1.8 mg/dL 1.7-2.4 Lab Interpretation (test code = Normal 04666-4) [facility] Test Item Value Reference Range Interpretation Comments MAGNESIUM (test code = 7056817785) 1.8 mg/dL 1.7-2.4 Lab Interpretation (test code = Normal 08520-9) [facility] (NA, K, CL, CO2, GLUCOSE, BUN, CREATININE, CA)2022-07-22 09:31:09 Test Item Value Reference Range Interpretation Comments NA (test code = 137 mmol/L 135-145 3259833666) K (test code = 4.0 mmol/L 3.5-5 3375555072) CL (test code = 98 mmol/L 98-108 0188325306) CO2 TOTAL (test code = 34 mmol/L 23-31 H 9406260757) AGAP (test code = 2-16 5912876667) BUN (test code = 16 mg/dL 7-23 7829267642) GLUCOSE (test code = 177 mg/dL 70-110 H 6402124607) CREATININE (test code = 0.66 mg/dL 0.6-1.25 4976999678) CALCIUM (test code = 8.2 mg/dL 8.6-10.6 L 3339138360) eGFR (test code = mL/min/1.73m2 1034009396) ROSLYN (test code = ROSLYN) Association of [...] tests). Lab Interpretation Abnormal (test code = 12854-8) [facility] (NA, K, CL, CO2, GLUCOSE, BUN, CREATININE, CA)2022-07-22 09:31:09 Test Item Value Reference Range Interpretation Comments NA (test code = 137 mmol/L 135-145 6969858073) K (test code = 4.0 mmol/L 3.5-5 3078373911) CL (test code = 98 mmol/L 98-108 0314372815) CO2 TOTAL (test code = 34 mmol/L 23-31 H 1459886050) AGAP (test code = 2-16 1495410902) BUN (test code = 16 mg/dL 7- 3180479454) GLUCOSE (test code = 177 mg/dL 70-110 H 4796597993) CREATININE (test code = 0.66 mg/dL 0.6-1.25 6765475637) CALCIUM (test code = 8.2 mg/dL 8.6-10.6 L 4755824885) eGFR (test code = mL/min/1.73m2 7442889904) ROSLYN (test code = ROSLYN) Association of [...] tests). Lab Interpretation Abnormal (test code = 23516-6) [facility] (ALB,T.PRO,BILI T,BU/BC,ALT,AST,ALK PHOS)2022-07-22 09:30:44 Test Item Value Reference Range Interpretation Comments TOTAL BILI (test code = 0876958857) 1.2 mg/dL 0.1-1.1 H BILI UNCON (test code = 2773043191) 0.9 mg/dL 0.1-1.1 BILI CONJ (test code = 9242839277) 0.0 mg/dL 0-0.3 T PROTEIN (test code = 3267921801) 6.5 g/dL 6.3-8.2 ALBUMIN (test code = 1352299528) 3.7 g/dL 3.5-5 ALK PHOS (test code = 1509382758) 67 U/L 34-122 ALTv (test code = 1742-6) 33 U/L 5-50 AST(SGOT) (test code = 3971051757) 30 U/L 13-40 Lab Interpretation (test code = Abnormal 77144-9) [facility] 09:30:44 Test Item Value Reference Range Interpretation Comments PHOSPHORUS (test code = 4658050663) 3.6 mg/dL 2.5-5 Lab Interpretation (test code = Normal 71749-3) [facility] (76292[facility] (ALB,T.PRO,BILI T,BU/BC,ALT,AST,ALK PHOS)2022-07-22 09:30:44 Test Item Value Reference Range Interpretation Comments TOTAL BILI (test code = 6745656080) 1.2 mg/dL 0.1-1.1 H BILI UNCON (test code = 9945469212) 0.9 mg/dL 0.1-1.1 BILI CONJ (test code = 2467203374) 0.0 mg/dL 0-0.3 T PROTEIN (test code = 4991413957) 6.5 g/dL 6.3-8.2 ALBUMIN (test code = 5717542288) 3.7 g/dL 3.5-5 ALK PHOS (test code = 5101697894) 67 U/L 34-122 ALTv (test code = 1742-6) 33 U/L 5-50 AST(SGOT) (test code = 0556070188) 30 U/L 13-40 Lab Interpretation (test code = Abnormal 42719-7) [facility] 09:30:44 Test Item Value Reference Range Interpretation Comments PHOSPHORUS (test code = 7051256461) 3.6 mg/dL 2.5-5 Lab Interpretation (test code = Normal 47923-6) [facility] WITH [id number] 09:23:08 Test Item Value Reference Range Interpretation [...] RDW-SD (test code = 46.6 fL 38.5-51.6 56361-5) RDW-CV (test code = 13.5 % 12.1-15.4 788-0) PLT (test code = See_Comment L [Automated 777-3) message] The system which generated this result transmit artem reference range : 150 - 328 10*3/ ?L. The reference range was not u sed to interpret th is result as normal/abnormal . MPV (test code = 12.7 fL 9.8-13 37432-4) NRBC/100 WBC (test See_Comment [Automat ed code = 8991019207) message] The system which generated this result transmit artem reference range : 0.0 - 10.0 /100 WBCs. The reference range was not used to interpret this result as normal/abnormal . NRBC x10^3 (test code See_Comment [Auto mated = 9279824923) message] The system which generated this result transmit artem reference range : 10*3/?L. The reference range was not used to interpret this result as normal/abnormal . GRAN MAT (NEUT) % 71.3 % (test code = 770-8) IMM GRAN % (test code 0.40 % = 8174397998) LYMPH % (test code = 17.4 % 736-9) MONO % (test code = 9.8 % 5905-5) EOS % (test code = 0.8 % 713-8) BASO % (test code = 0.3 % 706-2) GRAN MAT x10^3(ANC) 10.18 10*3/uL 1.99-6.95 H (test code = 7659545347) IMM GRAN x10^3 (test 0.06 10*3/uL 0-0.06 code = 3299509576) LYMPH x10^3 (test code 2.49 10*3/uL 1.09-3.23 = 731-0) MONO x10^3 (test code 1.40 10*3/uL 0.36-1.02 H = 742-7) EOS x10^3 (test code = 0.11 10*3/uL 0.06-0.53 711-2) BASO x10^3 (test code 0.04 10*3/uL 0.01-0.09 = 704-7) Lab Interpretation Abnormal (test code = 56127-0) [facility] WITH [id number] 09:23:08 Test Item Value Reference Range Interpretation Comments WBC (test code = See_Comment H [Automated 4190-2) message] The system which generated this result [...] RDW-SD (test code = 46.6 fL 38.5-51.6 12248-8) RDW-CV (test code = 13.5 % 12.1-15.4 788-0) PLT (test code = See_Comment L [Automated 777-3) message] The system which generated this result transmit artem reference range : 150 - 328 10*3/ ?L. The reference range was not u sed to interpret th is result as normal/abnormal . MPV (test code = 12.7 fL 9.8-13 42945-7) NRBC/100 WBC (test See_Comment [Automat ed code = 6705374277) message] The system which generated this result transmit artem reference range : 0.0 - 10.0 /100 WBCs. The reference range was not used to interpret this result as normal/abnormal . NRBC x10^3 (test code See_Comment [Auto mated = 6758719512) message] The system which generated this result transmit artem reference range : 10*3/?L. The reference range was not used to interpret this result as normal/abnormal . GRAN MAT (NEUT) % 71.3 % (test code = 770-8) IMM GRAN % (test code 0.40 % = 7442750599) LYMPH % (test code = 17.4 % 736-9) MONO % (test code = 9.8 % 5905-5) EOS % (test code = 0.8 % 713-8) BASO % (test code = 0.3 % 706-2) GRAN MAT x10^3(ANC) 10.18 10*3/uL 1.99-6.95 H (test code = 1038410467) IMM GRAN x10^3 (test 0.06 10*3/uL 0-0.06 code = 2584820576) LYMPH x10^3 (test code 2.49 10*3/uL 1.09-3.23 = 731-0) MONO x10^3 (test code 1.40 10*3/uL 0.36-1.02 H = 742-7) EOS x10^3 (test code = 0.11 10*3/uL 0.06-0.53 711-2) BASO x10^3 (test code 0.04 10*3/uL 0.01-0.09 = 704-7) Lab Interpretation Abnormal (test code = 83984-1) [facility]-07-22 01:47:13 Test Item Value Reference Range Interpretation Comments POCT GLU (test code = 8063712222) 220 mg/dL 70-110 H Lab Interpretation (test code = Abnormal 27649-5) [facility]2022-07-22 01:47:13 Test Item Value Reference Range Interpretation Comments POCT GLU (test code = 7227299476) 220 mg/dL 70-110 H Lab Interpretation (test code = Abnormal 97187-7) [id number]TOTAL CHOLESTEROL, TRIGLYCERIDES, HDL)2022-07-22 00:19:28 Test Item Value Reference Range Interpretation Comments CHOL (test code = 121 mg/dL 120-200 7690921295) HDL (test code = 28 mg/dL See_Comment L [Automated message] 4802892456) The system [employer] generated this result transmit artem reference range : >=40. The refer ence range was not u sed to interpret th is result as normal/abnormal . HDLC RATIO (test code = See_Comment [Au tomated message] 8295678848) The system [employer] generated this result transmit artem reference range : <=5.0. The refe rence range was not u sed to interpret th is result as normal/abnormal . TRIG (test code = 119 mg/dL 30-170 1009730590) LDL CHOL (test code = 69 mg/dL See_Comment [Auto mated message] 02153-0) The system [employer] generated this result transmit artem reference range : <=160. The refe rence range was not u sed to interpret th is result as normal/abnormal . VLDL (test code = 24 mg/dL 5-60 1111386194) Lab Interpretation (test Abnormal code = 50268-1) [id number]TOTAL CHOLESTEROL, TRIGLYCERIDES, HDL)2022-07-22 00:19:28 Test Item Value Reference Range Interpretation Comments CHOL (test code = 121 mg/dL 120-200 8766605298) HDL (test code = 28 mg/dL See_Comment L [Automated message] 5164102778) The system [employer] generated this result transmit artem reference range : >=40. The refer ence range was not u sed to interpret th is result as normal/abnormal . HDLC RATIO (test code = See_Comment [Au tomated message] 0898511946) The system [employer] generated this result transmit artem reference range : <=5.0. The refe rence range was not u sed to interpret th is result as normal/abnormal . TRIG (test code = 119 mg/dL 30-170 2815328904) LDL CHOL (test code = 69 mg/dL See_Comment [Auto mated message] 12267-2) The system [employer] generated this result transmit artem reference range : <=160. The refe rence range was not u sed to interpret th is result as normal/abnormal . VLDL (test code = 24 mg/dL 5-60 9730346987) Lab Interpretation (test Abnormal code = 32248-8) [facility] 00:00:55 Test Item Value Reference Range Interpretation Comments Height (test code = in 2785420172) Weight (test code = lbs 4517081234) Systolic BP (test code = mmHg 9867630264) Diastolic BP (test code mmHg = 7361852804) Heart Rate (test code = bpm 2421452917) BSA (test code = 2.04 m2 8124156123) Ao root annulus (test 3.5 cm code = 0482373522) Ao root diam (test code 3.50 cm = 5303042015) Aortic root (test code = 3.5 cm 3460460269) LVOT diameter (test code 2.19 cm = 7941570278) LVOT area (test code = 3.80 cm2 3808049654) LVIDD (test code = 5.30 cm 1967728295) Left Ventricular End 135.3 mL Diastolic Volume by Teichholz Method (test code = 3957232) IVS (test code = 1.26 cm 2782133869) Interventricular Septum 1.26 cm Diastolic Thickness by 2D (test code = 7101381) LVPWD (test code = 1.26 cm 8749246413) PW (test code = 1.26 cm 0.6-1.6 5008269781) EF(Teich) (test code = 16.40 % 9907837001) LVIDS (test code = 4.90 cm 9640184713) Left Ventricular End 113.1 mL Systolic Volume by Teichholz Method (test code = 1107776) FS (test code = 7 % 3281951204) EF - 2D (test code = 16.40 % 41731113) LA size (test code = 4.3 cm 3974268259) TR Peak Anthony (test code = 249.6 cm/s 5199208470) Triscuspid Valve mmHg Regurgitation Peak Gradient (test code = 9978591840) LAV(MOD-sp4) (test code 79.00 mL = 1215351927) E wave decelartion time 0.13 s (test code = 5259886316) MV Peak E Anthony (test code 82.3 cm/s = 0960150106) MV stenosis pressure 1/2 38.8 ms time (test code = 7690332294) MV Peak A Anthony (test code 40.8 cm/s = 6313910560) E/A ratio (test code = ratio 1873325569) MR max PG (test code = 61.50 mm[Hg] 0897542667) MR max anthony (test code = 392.20 cm/s 8870318100) Mr max anthony (test code = 392.2 m/s 4870630995) MV Prop V (test code = 33.40 cm/s 0970756772) MV E/e' septal (test 12.6 cm/s code = 3049674054) Tapse (test code = 1.17 cm 9823113230) LVOT stroke volume (test 52.20 cm3 code = 6149216426) LVOT peak anthony (test code 86.4 cm/s = 1810139887) LVOT mn grad (test code mmHg = 0153276867) AV LVOT peak gradient mmHg (test code = 4382119801) LVOT peak VTI (test code 13.9 cm = 8032468376) LV V1 mean (test code = 57.20 cm/s 1206146418) Aortic valve mean 94.3 cm/s velocity (test code = 5988259311) Ao peak anthony (test code = 125.8 cm/s 0369962478) Ao VTI (test code = 22.6 cm 1277971240) AV area by cont VTI 2.3 cm2 (test code = 8795647389) AV area peak anthony (test 2.6 cm2 code = 1726208553) Ao max PG (test code = 6.30 mm[Hg] 8751305985) AV peak gradient (test mmHg code = 0836477563) AV valve area (test code 2.31 cm2 = 8048763400) AV mean gradient (test mmHg code = 1613839324) Radiology Study observation (narrative) (test code = 72109-7) ROSLYN (test code = ROSLYN) ?Left?Ventricle: Left [...] mL of Lumason ultrasound enhancing agent used. [facility] 00:00:55 Test Item Value Reference Range Interpretation Comments Height (test code = in 8829962599) Weight (test code = lbs 4260723482) Systolic BP (test code = mmHg 0831501269) Diastolic BP (test code mmHg = 5726193026) Heart Rate (test code = bpm 4730874713) BSA (test code = 2.04 m2 3958353632) Ao root annulus (test 3.5 cm code = 1842334545) Ao root diam (test code 3.50 cm = 7154573617) Aortic root (test code = 3.5 cm 6594172426) LVOT diameter (test code 2.19 cm = 7327388268) LVOT area (test code = 3.80 cm2 3131823347) LVIDD (test code = 5.30 cm 5740814609) Left Ventricular End 135.3 mL Diastolic Volume by Teichholz Method (test code = 5073026) IVS (test code = 1.26 cm 8679746557) Interventricular Septum 1.26 cm Diastolic Thickness by 2D (test code = 2952129) LVPWD (test code = 1.26 cm 5669536827) PW (test code = 1.26 cm 0.6-1.3 5524349634) EF(Teich) (test code = 16.40 % 8558970520) LVIDS (test code = 4.90 cm 9186243283) Left Ventricular End 113.1 mL Systolic Volume by Teichholz Method (test code = 3403835) FS (test code = 7 % 3253996001) EF - 2D (test code = 16.40 % 78426369) LA size (test code = 4.3 cm 4543814069) TR Peak Anthony (test code = 249.6 cm/s 1370006469) Triscuspid Valve mmHg Regurgitation Peak Gradient (test code = 3830793373) LAV(MOD-sp4) (test code 79.00 mL = 6229281400) E wave decelartion time 0.13 s (test code = 6130388296) MV Peak E Anthony (test code 82.3 cm/s = 9121616211) MV stenosis pressure 1/2 38.8 ms time (test code = 3548477254) MV Peak A Anthony (test code 40.8 cm/s = 4872555327) E/A ratio (test code = ratio 1207412934) MR max PG (test code = 61.50 mm[Hg] 6811623014) MR max anthony (test code = 392.20 cm/s 0449788782) Mr max anthony (test code = 392.2 m/s 3261560643) MV Prop V (test code = 33.40 cm/s 0587846029) MV E/e' septal (test 12.6 cm/s code = 3555244236) Tapse (test code = 1.17 cm 5615865149) LVOT stroke volume (test 52.20 cm3 code = 5041696092) LVOT peak anthony (test code 86.4 cm/s = 8788232250) LVOT mn grad (test code mmHg = 1961809291) AV LVOT peak gradient mmHg (test code = 0696601392) LVOT peak VTI (test code 13.9 cm = 5450947393) LV V1 mean (test code = 57.20 cm/s 6284117371) Aortic valve mean 94.3 cm/s velocity (test code = 8557085754) Ao peak anthony (test code = 125.8 cm/s 2326952593) Ao VTI (test code = 22.6 cm 7878294233) AV area by cont VTI 2.3 cm2 (test code = 2118430558) AV area peak anthony (test 2.6 cm2 code = 1164894292) Ao max PG (test code = 6.30 mm[Hg] 0536274199) AV peak gradient (test mmHg code = 8643530068) AV valve area (test code 2.31 cm2 = 6089115975) AV mean gradient (test mmHg code = 8972049788) Radiology Study observation (narrative) (test code = 38781-2) ROSLYN (test code = ROSLYN) ?Left?Ventricle: Left [...] mL of Lumason ultrasound enhancing agent used. [facility]2022-07-21 21:54:48 Test Item Value Reference Range Interpretation Comments POCT GLU (test code = 7920535255) 161 mg/dL 70-110 H Lab Interpretation (test code = Abnormal 30005-6) [facility] ([facility]OM[facility])2022-07-21 21:54:48 Test Item Value Reference Range Interpretation Comments POCT GLU (test code = 9148731389) 161 mg/dL 70-110 H Lab Interpretation (test code = Abnormal 95653-5) [facility] (AUT[facility])2022-07-21 16:47:05 Test Item Value Reference Range Interpretation Comments POCT GLU (test code = 8713307887) 132 mg/dL 70-110 H Lab Interpretation (test code = Abnormal 88462-7) [facility] (AUTOMATED)2022-07-21 16:47:05 Test Item Value Reference Range Interpretation Comments POCT GLU (test code = 6854229414) 132 mg/dL 70-110 H Lab Interpretation (test code = Abnormal 32149-7) [facility] (AUTOMATED)2022-07-21 15:03:01 Test Item Value Reference Range Interpretation Comments POCT GLU (test code = 8589654008) 182 mg/dL 70-110 H Lab Interpretation (test code = Abnormal 22904-9) [facility] 15:03:01 Test Item Value Reference Range Interpretation Comments POCT GLU (test code = 1848342233) 182 mg/dL 70-110 H Lab Interpretation (test code = Abnormal 93793-7) [facility] with [id number] 14:58:14 Test Item Value Reference Range Interpretation [...] RDW-SD (test code = 46.4 fL 38.5-51.6 87853-1) RDW-CV (test code = 13.5 % 12.1-15.4 788-0) PLT (test code = See_Comment [Automated 777-3) message] The system which generated this result transmit artem reference range : 150 - 328 10*3/ ?L. The reference range was not u sed to interpret th is result as normal/abnormal . MPV (test code = 13.0 fL 9.8-13 51911-1) NRBC/100 WBC (test See_Comment [Automat ed code = 0966224978) message] The system which generated this result transmit artem reference range : 0.0 - 10.0 /100 WBCs. The reference range was not used to interpret this result as normal/abnormal . NRBC x10^3 (test code See_Comment [Auto mated = 3448081971) message] The system which generated this result transmit artem reference range : 10*3/?L. The reference range was not used to interpret this result as normal/abnormal . GRAN MAT (NEUT) % 71.1 % (test code = 770-8) IMM GRAN % (test code 0.40 % = 4561832379) LYMPH % (test code = 17.6 % 736-9) MONO % (test code = 10.3 % 5905-5) EOS % (test code = 0.3 % 713-8) BASO % (test code = 0.3 % 706-2) GRAN MAT x10^3(ANC) 10.55 10*3/uL 1.99-6.95 H (test code = 9699379421) IMM GRAN x10^3 (test 0.06 10*3/uL 0-0.06 code = 8640933053) LYMPH x10^3 (test code 2.61 10*3/uL 1.09-3.23 = 731-0) MONO x10^3 (test code 1.53 10*3/uL 0.36-1.02 H = 742-7) EOS x10^3 (test code = 0.04 10*3/uL 0.06-0.53 L 711-2) BASO x10^3 (test code 0.04 10*3/uL 0.01-0.09 = 704-7) BANDS (test code = Increased A 9504043297) REACT LYMPHS (test Rare code = 4438826231) GIANT PLATELETS (test Present See_Comment A [Auto mated code = 5908-9) message] The system which generated this result transmit artem reference range : (none). The reference range was not used to interpret this result as normal/abnormal . Lab Interpretation Abnormal (test code = 61611-5) [facility] with Ccaenqjklabs3470-88-66 14:58:14 Test Item Value Reference Range Interpretation Comments WBC (test code = See_Comment H [Automated 7890-2) message] The system which generated this result [...] RDW-SD (test code = 46.4 fL 38.5-51.6 17347-5) RDW-CV (test code = 13.5 % 12.1-15.4 788-0) PLT (test code = See_Comment [Automated 777-3) message] The system which generated this result transmit artem reference range : 150 - 328 10*3/ ?L. The reference range was not u sed to interpret th is result as normal/abnormal . MPV (test code = 13.0 fL 9.8-13 17842-9) NRBC/100 WBC (test See_Comment [Automat ed code = 1480271868) message] The system which generated this result transmit artem reference range : 0.0 - 10.0 /100 WBCs. The reference range was not used to interpret this result as normal/abnormal . NRBC x10^3 (test code See_Comment [Auto mated = 9818192322) message] The system which generated this result transmit artem reference range : 10*3/?L. The reference range was not used to interpret this result as normal/abnormal . GRAN MAT (NEUT) % 71.1 % (test code = 770-8) IMM GRAN % (test code 0.40 % = 7421583487) LYMPH % (test code = 17.6 % 736-9) MONO % (test code = 10.3 % 5905-5) EOS % (test code = 0.3 % 713-8) BASO % (test code = 0.3 % 706-2) GRAN MAT x10^3(ANC) 10.55 10*3/uL 1.99-6.95 H (test code = 0190106486) IMM GRAN x10^3 (test 0.06 10*3/uL 0-0.06 code = 5256963397) LYMPH x10^3 (test code 2.61 10*3/uL 1.09-3.23 = 731-0) MONO x10^3 (test code 1.53 10*3/uL 0.36-1.02 H = 742-7) EOS x10^3 (test code = 0.04 10*3/uL 0.06-0.53 L 711-2) BASO x10^3 (test code 0.04 10*3/uL 0.01-0.09 = 704-7) BANDS (test code = Increased A 4096389472) REACT LYMPHS (test Rare code = 2893049882) GIANT PLATELETS (test Present See_Comment A [Auto mated code = 5908-9) message] The system which generated this result transmit artem reference range : (none). The reference range was not used to interpret this result as normal/abnormal . Lab Interpretation Abnormal (test code = 83991-0) [facility]22-07-21 13:20:46 Test Item Value Reference Range Interpretation Comments POCT GLU (test code = 0199325175) 148 mg/dL 70-110 H Lab Interpretation (test code = Abnormal 86467-7) [facility])2022-07-21 13:20:46 Test Item Value Reference Range Interpretation Comments POCT GLU (test code = 9299131358) 148 mg/dL 70-110 H Lab Interpretation (test code = Abnormal 04092-5) [facility] Metabolic Panel (NA, K, CL, CO2, GLUCOSE, BUN, CREATININE, CA)2022-07-21 13:17:35 Test Item Value Reference Range Interpretation Comments NA (test code = 134 mmol/L 135-145 L 8922574248) K (test code = 4.1 mmol/L 3.5-5 5957250449) CL (test code = 99 mmol/L 98-108 1626672790) CO2 TOTAL (test code = 32 mmol/L 23-31 H 8796139966) AGAP (test code = 2-16 3184184966) BUN (test code = 17 mg/dL 7-23 4791080979) GLUCOSE (test code = 186 mg/dL 70-110 H 3876179598) CREATININE (test code = 0.65 mg/dL 0.6-1.25 0370898888) CALCIUM (test code = 8.2 mg/dL 8.6-10.6 L 4147753435) eGFR (test code = mL/min/1.73m2 6740995912) ROSLYN (test code = ROSLYN) Association of [...] tests). Lab Interpretation Abnormal (test code = 72291-9) [facility] Metabolic Panel (NA, K, CL, CO2, GLUCOSE, BUN, CREATININE, CA)2022-07-21 13:17:35 Test Item Value Reference Range Interpretation Comments NA (test code = 134 mmol/L 135-145 L 3173289474) K (test code = 4.1 mmol/L 3.5-5 1661746450) CL (test code = 99 mmol/L 98-108 6252169233) CO2 TOTAL (test code = 32 mmol/L 23-31 H 6809826861) AGAP (test code = 2-16 5648425417) BUN (test code = 17 mg/dL 7-23 7923460190) GLUCOSE (test code = 186 mg/dL 70-110 H 7708791153) CREATININE (test code = 0.65 mg/dL 0.6-1.25 3816768928) CALCIUM (test code = 8.2 mg/dL 8.6-10.6 L 7650390191) eGFR (test code = mL/min/1.73m2 4068461341) ROSLYN (test code = ROSLYN) Association of [...] tests). Lab Interpretation Abnormal (test code = 74589-1) [facility] [id number] 12:35:48 Test Item Value Reference Interpretation Comments Range TROPONIN I (test 0.032 ng/mL See_Comment [Automated code = 8353863213) message] The system which generated this result [...] biotin. Lab Interpretation Normal (test code = 11236-3) [facility] [id number] 12:35:48 Test Item Value Reference Interpretation Comments Range TROPONIN I (test 0.032 ng/mL See_Comment [Automated code = 8854928079) message] The system which generated this result [...] biotin. Lab Interpretation Normal (test code = 48865-1) [facility] [id number] 12:32:47 Test Item Value Reference Range Interpretation Comments NT-proBNP (test code 3830 pg/mL See_Comment H [Autom ated = 1695975321) message] The system which generated this result transmitted reference range : <=125. The reference range was not used to interpret this result as normal/abnormal . ROSLYN (test code = ROSLYN) Biotin has been reported to cause a negative bias, interpret results relative to patient's use of biotin. Lab Interpretation Abnormal (test code = 49867-8) [facility] [id number] 12:32:47 Test Item Value Reference Range Interpretation Comments NT-proBNP (test code 3830 pg/mL See_Comment H [Autom ated = 9397555394) message] The system which generated this result transmitted reference range : <=125. The reference range was not used to interpret this result as normal/abnormal . ROSLYN (test code = ROSLYN) Biotin has been reported to cause a negative bias, interpret results relative to patient's use of biotin. Lab Interpretation Abnormal (test code = 74692-5) [id number] 12:24:10 Test Item Value Reference Range Interpretation Comments MAGNESIUM (test code = 0341077832) 1.8 mg/dL 1.7-2.4 Lab Interpretation (test code = Normal 28031-5) [id number] 12:24:10 Test Item Value Reference Range Interpretation Comments MAGNESIUM (test code = 1048553105) 1.8 mg/dL 1.7-2.4 Lab Interpretation (test code = Normal 00441-0) [facility] (AUTOMATED)2022-07-21 04:19:16 Test Item Value Reference Range Interpretation Comments POCT GLU (test code = 9996724960) 169 mg/dL 70-110 H Lab Interpretation (test code = Abnormal 36223-7) [facility] (AUTOMATED)2022-07-21 04:19:16 Test Item Value Reference Range Interpretation Comments POCT GLU (test code = 1445711682) 169 mg/dL 70-110 H Lab Interpretation (test code = Abnormal 90960-6) [facility] (AUTOMATED)2022-07-21 02:03:28 Test Item Value Reference Range Interpretation Comments POCT GLU (test code = 0109708776) 242 mg/dL 70-110 H Lab Interpretation (test code = Abnormal 04745-9) [facility] (AUTOM[facility])2022-07-21 02:03:28 Test Item Value Reference Range Interpretation Comments POCT GLU (test code = 5945290382) 242 mg/dL 70-110 H Lab Interpretation (test code = Abnormal 10568-3) [facility]21 00:46:20 Test Item Value Reference Range Interpretation Comments HGB A1C (test code = 11.1 % 4-5.7 H 4548-4) ROSLYN (test code = ROSLYN) Reference RangesNormal: <5.7%Prediabetes: 5.7 - 6.4%Diabetes: > 6.5% Lab Interpretation (test Abnormal code = 29966-5) [facility]-21 00:46:20 Test Item Value Reference Range Interpretation Comments HGB A1C (test code = 11.1 % 4-5.7 H 4548-4) ROSLYN (test code = ROSLYN) Reference RangesNormal: <5.7%Prediabetes: 5.7 - 6.4%Diabetes: > 6.5% Lab Interpretation (test Abnormal code = 82912-8) [facility] (AUT[facility])2022-07-20 22:27:55 Test Item Value Reference Range Interpretation Comments POCT GLU (test code = 8627781316) 234 mg/dL 70-110 H Lab Interpretation (test code = Abnormal 83971-9) [facility] (AUTOM[facility])2022-07-20 22:27:55 Test Item Value Reference Range Interpretation Comments POCT GLU (test code = 0200259482) 234 mg/dL 70-110 H Lab Interpretation (test code = Abnormal 38780-5) [facility] [id number] 17:21:08 Test Item Value Reference Range Interpretation Comments NT-proBNP (test code 3250 pg/mL See_Comment H [Autom ated = 2653324327) message] The system which generated this result transmitted reference range : <=125. The reference range was not used to interpret this result as normal/abnormal . ROSLYN (test code = ROSLYN) Biotin has been reported to cause a negative bias, interpret results relative to patient's use of biotin. Lab Interpretation Abnormal (test code = 09136-7) [facility] [id number] 17:21:08 Test Item Value Reference Range Interpretation Comments NT-proBNP (test code 3250 pg/mL See_Comment H [Autom ated = 1683537237) message] The system which generated this result transmitted reference range : <=125. The reference range was not used to interpret this result as normal/abnormal . ROSLYN (test code = ROSLYN) Biotin has been reported to cause a negative bias, interpret results relative to patient's use of biotin. Lab Interpretation Abnormal (test code = 66257-3) [facility] WITH [id number] 17:16:49 Test Item Value Reference Range Interpretation Comments WBC (test code = See_Comment H [Automated 9490-2) message] The system which generated this result transmit artem reference range : 4.20 - 10.70 10*3/?L. The reference range was not used to interpret this result as normal/abnormal . RBC (test code = See_Comment H [Automated 219-8) message] The system which generated this result [...] RDW-SD (test code = 44.7 fL 38.5-51.6 59722-5) RDW-CV (test code = 13.7 % 12.1-15.4 788-0) PLT (test code = See_Comment [Automated 777-3) message] The system which generated this result transmit artem reference range : 150 - 328 10*3/ ?L. The reference range was not u sed to interpret th is result as normal/abnormal . MPV (test code = 12.5 fL 9.8-13 15200-8) NRBC/100 WBC (test See_Comment [Automat ed code = 9345212101) message] The system which generated this result transmit artem reference range : 0.0 - 10.0 /100 WBCs. The reference range was not used to interpret this result as normal/abnormal . NRBC x10^3 (test code See_Comment [Auto mated = 5956726608) message] The system which generated this result transmit artem reference range : 10*3/?L. The reference range was not used to interpret this result as normal/abnormal . GRAN MAT (NEUT) % 76.6 % (test code = 770-8) IMM GRAN % (test code 0.70 % = 5104753039) LYMPH % (test code = 13.8 % 736-9) MONO % (test code = 8.5 % 5905-5) EOS % (test code = 0.1 % 713-8) BASO % (test code = 0.3 % 706-2) GRAN MAT x10^3(ANC) 17.13 10*3/uL 1.99-6.95 H (test code = 7022787406) IMM GRAN x10^3 (test 0.16 10*3/uL 0-0.06 H code = 2144740033) LYMPH x10^3 (test code 3.10 10*3/uL 1.09-3.23 = 731-0) MONO x10^3 (test code 1.91 10*3/uL 0.36-1.02 H = 742-7) EOS x10^3 (test code = 0.06-0.53 L 711-2) BASO x10^3 (test code 0.07 10*3/uL 0.01-0.09 = 704-7) BANDS (test code = Increased A 9475358424) REACT LYMPHS (test Rare code = 9971922651) Lab Interpretation Abnormal (test code = 36182-7) [facility] [facility] [id number] 17:16:49 Test Item Value Reference Range Interpretation [...] RDW-SD (test code = 44.7 fL 38.5-51.6 82271-6) RDW-CV (test code = 13.7 % 12.1-15.4 788-0) PLT (test code = See_Comment [Automated 777-3) message] The system which generated this result transmit artem reference range : 150 - 328 10*3/ ?L. The reference range was not u sed to interpret th is result as normal/abnormal . MPV (test code = 12.5 fL 9.8-13 78376-6) NRBC/100 WBC (test See_Comment [Automat ed code = 3972520052) message] The system which generated this result transmit artem reference range : 0.0 - 10.0 /100 WBCs. The reference range was not used to interpret this result as normal/abnormal . NRBC x10^3 (test code See_Comment [Auto mated = 0533919955) message] The system which generated this result transmit artem reference range : 10*3/?L. The reference range was not used to interpret this result as normal/abnormal . GRAN MAT (NEUT) % 76.6 % (test code = 770-8) IMM GRAN % (test code 0.70 % = 4190360179) LYMPH % (test code = 13.8 % 736-9) MONO % (test code = 8.5 % 5905-5) EOS % (test code = 0.1 % 713-8) BASO % (test code = 0.3 % 706-2) GRAN MAT x10^3(ANC) 17.13 10*3/uL 1.99-6.95 H (test code = 6705768659) IMM GRAN x10^3 (test 0.16 10*3/uL 0-0.06 H code = 8957517983) LYMPH x10^3 (test code 3.10 10*3/uL 1.09-3.23 = 731-0) MONO x10^3 (test code 1.91 10*3/uL 0.36-1.02 H = 742-7) EOS x10^3 (test code = 0.06-0.53 L 711-2) BASO x10^3 (test code 0.07 10*3/uL 0.01-0.09 = 704-7) BANDS (test code = Increased A 3707186185) REACT LYMPHS (test Rare code = 5319159404) Lab Interpretation Abnormal (test code = 46083-7) [facility] [id number] 16:42:04 Test Item Value Reference Interpretation Comments Range TROPONIN I (test 0.025 ng/mL See_Comment [Automated code = 8936231483) message] The system which generated this result [...] biotin. Lab Interpretation Normal (test code = 26171-9) [id number] 16:42:04 Test Item Value Reference Interpretation Comments Range TROPONIN I (test 0.025 ng/mL See_Comment [Automated code = 6247395321) message] The system which generated this result [...] biotin. Lab Interpretation Normal (test code = 54546-3) [facility] 16:31:19 Test Item Value Reference Range Interpretation Comments APTT Patient (test See_Comment [Automat ed code = 3173-2) message] The system which generated this result transmitted reference range : 23 - 38 Seconds . The reference range was not used to interpr et this result as normal/abnormal . ROSLYN (test code = ROSLYN) The [facility] patient population mean normal value for aPTT is 30 seconds. Lab Interpretation Normal (test code = 00580-8) [facility] 16:31:19 Test Item Value Reference Range Interpretation Comments APTT Patient (test See_Comment [Automat ed code = 3173-2) message] The system which generated this result transmitted reference range : 23 - 38 Seconds . The reference range was not used to interpr et this result as normal/abnormal . ROSLYN (test code = ROSLYN) The [facility] patient population mean normal value for aPTT is 30 seconds. Lab Interpretation Normal (test code = 76728-4) [facility]. METABOLIC PANEL ([id number])2022-07-20 16:30:19 Test Item Value Reference Range Interpretation Comments NA (test code = 133 mmol/L 135-145 L 2702390733) K (test code = 5.3 mmol/L 3.5-5 H 9979155303) CL (test code = 98 mmol/L 98-108 5753853635) CO2 TOTAL (test code = 27 mmol/L 23-31 3437241406) AGAP (test code = 2-16 4978249869) BUN (test code = 13 mg/dL 7-23 8649453720) GLUCOSE (test code = 273 mg/dL 70-110 H 0405792947) CREATININE (test code = 0.62 mg/dL 0.6-1.25 2523367714) TOTAL BILI (test code = 2.1 mg/dL 0.1-1.1 H 9008608995) CALCIUM (test code = 8.6 mg/dL 8.6-10.6 4755470307) T PROTEIN (test code = 7.3 g/dL 6.3-8.2 6103168532) ALBUMIN (test code = 4.4 g/dL 3.5-5 3623361689) ALK PHOS (test code = 61 U/L 34-122 4143225659) ALTv (test code = 29 U/L 5-50 1742-6) AST(SGOT) (test code = 36 U/L 13-40 3778169589) eGFR (test code = mL/min/1.73m2 5070073289) ROSLYN (test code = ROSLYN) Association of [...] tests). Lab Interpretation Abnormal (test code = 61719-7) [facility]. METABOLIC PANEL ([id number])2022-07-20 16:30:19 Test Item Value Reference Range Interpretation Comments NA (test code = 133 mmol/L 135-145 L 8258237691) K (test code = 5.3 mmol/L 3.5-5 H 0561014356) CL (test code = 98 mmol/L 98-108 9090671170) CO2 TOTAL (test code = 27 mmol/L 23-31 7126530295) AGAP (test code = 2-16 5751552061) BUN (test code = 13 mg/dL 7-23 6578335564) GLUCOSE (test code = 273 mg/dL 70-110 H 9633072471) CREATININE (test code = 0.62 mg/dL 0.6-1.25 0639382757) TOTAL BILI (test code = 2.1 mg/dL 0.1-1.1 H 0808770115) CALCIUM (test code = 8.6 mg/dL 8.6-10.6 5385821614) T PROTEIN (test code = 7.3 g/dL 6.3-8.2 8481569672) ALBUMIN (test code = 4.4 g/dL 3.5-5 9706661377) ALK PHOS (test code = 61 U/L 34-122 1617229118) ALTv (test code = 29 U/L 5-50 1742-6) AST(SGOT) (test code = 36 U/L 13-40 2679667367) eGFR (test code = mL/min/1.73m2 4319438007) ROSLYN (test code = ROSLYN) Association of [...] tests). Lab Interpretation Abnormal (test code = 42740-3) [facility] [id number] 16:29:23 Test Item Value Reference Range Interpretation Comments PROTIME PATIENT (test See_Comment [Auto mated message] code = 5964-2) The system [employer] generated this result transmitted ref erence range: 12.0 - 1 4.7 Seconds. The re ference range was not u sed to interpret this result as normal/abnor mal. INR (test code = 6301-6) Nor mal INR <1.1; Warfarin Therap eutic range 2.0 to 3. 0 or 2.5 to 3.5, dep ending upon the indica tions. Lab Interpretation (test Normal code = 80611-3) [facility] [id number] 16:29:23 Test Item Value Reference Range Interpretation Comments PROTIME PATIENT (test See_Comment [Auto mated message] code = 5964-2) The system [employer] generated this result transmitted ref erence range: 12.0 - 1 4.7 Seconds. The re ference range was not u sed to interpret this result as normal/abnor mal. INR (test code = 6301-6) Nor mal INR <1.1; Warfarin Therap eutic range 2.0 to 3. 0 or 2.5 to 3.5, dep ending upon the indica tions. Lab Interpretation (test Normal code = 97285-6) [facility]"
[2022-09-07 17:20] LABS: Absolute Lymphocytes (CBC) 2.8 K/uL (0.7-4.9); Lymphocytes % 17.5 % (15.3-44.8); MPV 9.5 fL (7.6-11.3); RBC Red Blood Cell Count 4.49 M/uL (4.33-5.43)
[2022-09-07 17:33] LABS: Potassium 3.5 mmol/L (3.5-5.1)
--- NOTE | 2022-09-07 17:44 | RAD REPORT ---
EXAM DESCRIPTION: RAD - Chest Single View - 09/07/2022 5:11 pm CLINICAL HISTORY: CHEST PAINchest findings are stable from September 01. COMPARISON: Portable 09/01/2022 TECHNIQUE: AP portable chest image was obtained 09/07/2022 5:11 pm . FINDINGS: Interstitial opacification matches comparison. No significant failure or volume overload. Left lung base scarring changes are present. Heart and vasculature are normal. No measurable pleural effusion and no pneumothorax. No acute bony abnormality seen. No acute aortic findings suspected. IMPRESSION: No acute cardiopulmonary process.
[2022-09-07 19:06] LABS: Urine Blood Negative (Negative); Urine Glucose Negative (Negative); Urine Protein Trace (Negative)
--- NOTE | 2022-09-07 19:19 | EDPHYS ---
Physician Documentation [facility] Name: José Pat Age: 72 yrs Sex: Male : 1950 Arrival Date: 09/07/2022 Time: 16:24 Bed 16 Private MD: ED Physician Genaro Christina HPI: 09/07 17:52 This 72 yrs old Male presents to ER via EMS with complaints of having an jl9 episode of chest pain earlier today that has since resolved. . 17:52 The patient or guardian reports chest pain that is located primarily in the substernal jl9 area. Onset: today. Associated signs and symptoms: The patient has no apparent associated signs or symptoms. The chest pain is described as dull. Duration: The patient or guardian reports a single episode, that lasted 1 hour(s). Severity of pain: in the emergency department the pain has resolved. Historical: - Allergies: 16:30 No Known Allergies; ko1 - Home Meds: 16:30 Eliquis Oral [Active]; Insulin: Lantus Sub-Q [Active]; tamsulosin 0.4 mg Oral cap ko1 [Active]; - PMHx: 16:30 Atrial fibrillation; COPD; CHF; Diabetes - IDDM; ko1 - Immunization history:: Adult Immunizations up to date. - Social history:: Smoking status: Patient/guardian denies using tobacco. ROS: 17:53 Constitutional: Negative for fever, chills, and weight loss, Eyes: Negative for injury, jl9 pain, redness, and discharge, ENT: Negative for injury, pain, and discharge, Neck: Negative for injury, pain, and swelling. 17:53 Respiratory: Negative for shortness of breath, cough, wheezing, and pleuritic chest pain, Abdomen/GI: Negative for abdominal pain, nausea, vomiting, diarrhea, and constipation, Back: Negative for injury and pain, : Negative for injury, bleeding, discharge, and swelling, MS/Extremity: Negative for injury and deformity, Skin: Negative for injury, rash, and discoloration, Neuro: Negative for headache, weakness, numbness, tingling, and seizure, Psych: Negative for depression, anxiety, suicide ideation, homicidal ideation, and hallucinations, Allergy/Immunology: Negative for hives, rash, and allergies, Endocrine: Negative for neck swelling, polydipsia, polyuria, polyphagia, and marked weight changes, Hematologic/Lymphatic: Negative for swollen nodes, abnormal bleeding, and unusual bruising. 17:53 Cardiovascular: Positive for chest pain. Exam: 17:53 Constitutional: This is a well developed, well nourished patient who is awake, alert, jl9 and in no acute distress. Head/Face: Normocephalic, atraumatic. Eyes: Pupils equal round and reactive to light, extra-ocular motions intact. Lids and lashes normal. Conjunctiva and sclera are non-icteric and not injected. Cornea within normal limits. Periorbital areas with no swelling, redness, or edema. ENT: Mucous membranes moist. Neck: Trachea midline, no thyromegaly or masses palpated, and no cervical lymphadenopathy. Supple, full range of motion without nuchal rigidity, or vertebral point tenderness. No Meningismus. Chest/axilla: Normal chest wall appearance and motion. Nontender with no deformity. No lesions are appreciated. Cardiovascular: Regular rate and rhythm with a normal S1 and S2. No gallops, murmurs, or rubs. Normal PMI, no JVD. No pulse deficits. Respiratory: Lungs have equal breath sounds bilaterally, clear to auscultation and percussion. No rales, rhonchi or wheezes noted. No increased work of breathing, no retractions or nasal flaring. Abdomen/GI: Soft, non-tender, with normal bowel sounds. No distension or tympany. No guarding or rebound. No evidence of tenderness throughout. Back: No spinal tenderness. No costovertebral tenderness. Full range of motion. Skin: Warm, dry with normal turgor. Normal color with no rashes, no lesions, and no evidence of cellulitis. MS/ Extremity: Pulses equal, no cyanosis. Neurovascular intact. Full, normal range of motion. Neuro: Awake and alert, GCS 15, oriented to person, place, time, and situation. Cranial nerves II-XII grossly intact. Motor strength 5/5 in all extremities. Sensory grossly intact. Cerebellar exam normal. Normal gait. Psych: Awake, alert, with orientation to person, place and time. Behavior, mood, and affect are within normal limits. Vital Signs: 16:25 BP 122 / 81; Pulse 95; Resp 18; Temp 98.8(O); Pulse Ox 95% on 2 lpm NC; Weight 129.27 ko1 kg; Height 5 ft. 7 in. (170.18 cm); Pain 4/10; 17:20 BP 128 / 74; Pulse 99; Pulse Ox 94% on 3 lpm NC; ko1 18:05 BP 125 / 78; Pulse 97; ko1 19:59 BP 112 / 70; Pulse 76; Resp 19; Temp 97.8(O); Pulse Ox 94% on 3 lpm NC; ke1 16:25 Body Mass Index 44.64 (129.27 kg, 170.18 cm) ko1 MDM: 16:31 Patient medically screened. 9 16:57 Data reviewed: vital signs, nurses notes. 9 16:58 Test interpretation: by ED physician or midlevel provider: ECG. 17:53 Differential diagnosis: coronary artery disease chest wall pain, congestive heart jl9 failure. 19:09 Counseling: I had a detailed discussion with the patient and/or guardian regarding: the [facility] historical points, exam findings, and any diagnostic results supporting the discharge/admit diagnosis, lab results, radiology results, the need for outpatient follow up, to return to the emergency department if symptoms worsen or persist or if there are any questions or concerns that arise at home. 09/07 16:32 Order name: Basic Metabolic Panel; Complete Time: 17:35 [facility] 09/07 16:32 Order name: CBC with Diff; Complete Time: 18:19 [facility] 09/07 16:32 Order name: Troponin HS; Complete Time: 17:35 [facility] 09/07 18:20 Order name: Flu; Complete Time: 19:35 [facility] 09/07 18:20 Order name: SARS-COV-2 RT PCR (Document "Date of Onset" if Symptomatic) 09/07 19:06 Order name: Urine Dipstick-Ancillary; Complete Time: 19:08 EDUT 09/07 16:32 Order name: XRAY Chest (1 view); Complete Time: 17:48 09/07 16:32 Order name: EKG; Complete Time: 16:32 [facility] 09/07 16:32 Order name: Cardiac monitoring; Complete Time: 16:32 09/07 16:32 Order name: EKG - Nurse/Tech; Complete Time: 16:46 [facility] 09/07 16:32 Order name: IV Saline Lock; Complete Time: 16:32 09/07 16:32 Order name: Labs collected and sent; Complete Time: 17:04 09/07 16:32 Order name: O2 Per Protocol; Complete Time: 16:33 09/07 16:32 Order name: O2 Sat Monitoring; Complete Time: 16:33 09/07 18:20 Order name: Urine Dipstick-Ancillary (obtain specimen); Complete Time: 19:06 Administered Medications: 19:30 Drug: Rocephin (cefTRIAXone) 1 grams Route: IV; Rate: calculated rate; Site: left ke1 antecubital; Disposition: 09/08 10:16 Co-signature as Attending Physician, Genaro Christina MD I agree with the assessment and kdr plan of care. Disposition Summary: 09/07/22 19:18 Discharge Ordered Location: Home jl9 Condition: Stable jl9 Diagnosis - Chest pain, unspecified jl9 - UTI/ Urinary tract infection, site not specified jl9 Followup: jl9 - With: Private Physician - When: 1 - 2 days - Reason: Recheck today's complaints, Continuance of care, Re-evaluation by your physician Discharge Instructions: - Discharge Summary Sheet jl9 - Nonspecific Chest Pain, Adult jl9 - Urinary Tract Infection, Adult, [id number] jl9 Forms: - Medication Reconciliation Form jl9 - Thank You Letter jl9 - Antibiotic Education jl9 - Prescription Opioid Use jl9 Prescriptions: - cefpodoxime 200 mg Oral Tablet - take 1 tablet by ORAL route every 12 hours for 10 days with food; 20 tablet; jl9 Refills: 0, Product Selection Permitted - albuterol sulfate 90 mcg/actuation Inhalation HFA aerosol inhaler - inhale 2 puff by INHALATION route every 4 hours As needed; 18 gram; Refills: 0, jl9 Product Selection Permitted - Medrol (Francesco) 4 mg Oral Tablets, Dose Pack - take 1 tablet by ORAL route as directed - follow package instructions; 1 9 packet; Refills: 0, Product Selection Permitted Signatures: Dispatcher [employer] Genaro Molina MD MD kdr Ebrottie, Kouassi RN RN angus1 Gerhard Roe jl9 Vanessa Paz RN RN ko1
--- NOTE | 2022-09-07 19:19 | ER ---
Nurse's Notes [facility] Name: José Pat Age: 72 yrs Sex: Male : 1950 Arrival Date: 09/07/2022 Time: 16:24 Bed 16 Private MD: Diagnosis: Chest pain, unspecified;UTI/ Urinary tract infection, site not specified Presentation: 09/07 16:25 Chief complaint: EMS states: chest pain x 1 hour while laying down, improved when he ko1 sat up. Does not radiate, no increased shortness of breath. Coronavirus screen: At this time, the client does not indicate any symptoms associated with coronavirus-19. Ebola Screen: No symptoms or risks identified at this time. Initial Sepsis Screen: Does the patient meet any 2 criteria? No. Patient's initial sepsis screen is negative. Does the patient have a suspected source of infection? No. Patient's initial sepsis screen is negative. Risk Assessment: Do you want to hurt yourself or someone else? Patient reports no desire to harm self or others. Onset of symptoms was September 07, 2022 at 15:00. 16:25 Method Of Arrival: EMS: [facility] ko1 16:25 Acuity: KIT 2 ko1 16:25 Care prior to arrival: Medication(s) given: ASA, 81 mg, x 3. ko1 17:24 Care prior to arrival: Medication(s) given: Oxygen administered. via nasal cannula, ko1 Patient wears oxygen at home. Triage Assessment: 16:30 General: Appears in no apparent distress. comfortable, Behavior is calm, cooperative, ko1 appropriate for age. Pain: Complains of pain in anterior aspect of right upper chest, anterior aspect of left upper chest, xiphoid area, mid-sternal area, right breast and left breast Pain does not radiate. Pain currently is 4 out of 10 on a pain scale. Quality of pain is described as heavy, Pain began 1 hour ago. Is continuous, Alleviated by repositioning, Aggravated by. Cardiovascular: Rhythm is atrial fibrillation. Historical: - Allergies: 16:30 No Known Allergies; ko1 - Home Meds: 16:30 Eliquis Oral [Active]; Insulin: Lantus Sub-Q [Active]; tamsulosin 0.4 mg Oral cap ko1 [Active]; - PMHx: 16:30 Atrial fibrillation; COPD; CHF; Diabetes - IDDM; ko1 - Immunization history:: Adult Immunizations up to date. - Social history:: Smoking status: Patient/guardian denies using tobacco. Screenin:30 Abuse screen: Denies threats or abuse. Denies injuries from another. Nutritional ko1 screening: No deficits noted. 16:30 Tuberculosis screening: No symptoms or risk factors identified. Fall Risk None ko1 identified. Assessment: 16:30 Also complains of no other symptoms. Tenecteplase (TNKase) screening:. General: Appears ko1 in no apparent distress. comfortable, Behavior is calm, cooperative, appropriate for age. Pain: Complains of pain in mid-sternal area Pain does not radiate. Neuro: No deficits noted. Cardiovascular: Reports chest pain, Rhythm is atrial fibrillation. Respiratory: Reports hx of copd Breath sounds are diminished bilaterally. Parent/caregiver reports the patient having. GI: Reports diarrhea, since this morning. : No deficits noted. EENT: No deficits noted. Derm: No deficits noted. Musculoskeletal: No deficits noted. 19:59 Reassessment: Patient states feeling better. Patient states symptoms have improved. ke1 Vital Signs: 16:25 BP 122 / 81; Pulse 95; Resp 18; Temp 98.8(O); Pulse Ox 95% on 2 lpm NC; Weight 129.27 ko1 kg; Height 5 ft. 7 in. (170.18 cm); Pain 4/10; 17:20 BP 128 / 74; Pulse 99; Pulse Ox 94% on 3 lpm NC; ko1 18:05 BP 125 / 78; Pulse 97; ko1 19:59 BP 112 / 70; Pulse 76; Resp 19; Temp 97.8(O); Pulse Ox 94% on 3 lpm NC; ke1 16:25 Body Mass Index 44.64 (129.27 kg, 170.18 cm) ko1 ED Course: 16:24 Patient arrived in ED. ko1 16:28 Triage completed. ko1 16:30 Arm band placed on left wrist. ko1 16:30 Patient has correct armband on for positive identification. Placed in gown. Bed in low ko1 position. Call light in reach. Side rails up X 1. Client placed on continuous cardiac and pulse oximetry monitoring. NIBP monitoring applied. line puller on. 16:30 Maintain EMS IV. Dressing intact. Good blood return noted. Site clean \\T\\ dry. Gauge \\T\\ ko 1 site: 22 left AC. Oxygen administration via nasal cannula \\T\\ 3L/min. 16:31 Gerhard Roe is PHCP. jl9 16:31 Genaro Christina MD is Attending Physician. jl9 16:32 Vanessa Paz, RN is Primary Nurse. ko1 17:04 Basic Metabolic Panel Sent. ko1 17:04 CBC with Diff Sent. ko1 17:04 Troponin HS Sent. ko1 17:13 XRAY Chest (1 view) In Process Unspecified. EDMS 18:59 SARS-COV-2 RT PCR (Document "Date of Onset" if Symptomatic) Sent. ko1 18:59 Flu Sent. ko1 19:59 No provider procedures requiring assistance completed. ke1 20:01 IV discontinued. ke1 Administered Medications: 19:30 Drug: Rocephin (cefTRIAXone) 1 grams Route: IV; Rate: calculated rate; Site: left [facility] antecubital; Medication: 20:01 VIS not applicable for this client. ke1 Outcome: 19:18 Discharge ordered by . jl9 20:00 Discharged to home via wheelchair. ke1 20:00 Condition: good 20:00 Discharge instructions given to patient. 20:06 Patient left the ED. ke1 Signatures: Dispatcher [employer] EDKY Taniya Corrales RN RN ke1 Gerhard Roe jl9 Vanessa Paz, RN RN ko1 Corrections: (The following items were deleted from the chart) 16:30 16:25 Care prior to arrival: Medication(s) given: ASA, 81 mg, x 3, ko1 ko1
[2022-09-07] MEDS ORDERED: CEFTRIAXONE 1000 MG/VIAL ONE (19:24)
[2022-09-07 20:12] VITALS: O2SAT 94
[2022-09-07 20:15] VITALS: BP 112/70; TEMP 97.8
--- NOTE | 2022-09-09 16:02 | EKG ---
Test Date: 2022-09-07 Test Time: 16:41:33 [employer] Cells: ANA MEASUREMENT RESULTS: Intervals: Rate: 89 NM: 242 QRSD: 160 QT: 424 QTc: 515 Bylas: P: 90 NM: 242 QRS: -90 T: 42 INTERPRETIVE STATEMENTS: Suspect arm lead reversal, interpretation assumes no reversal Sinus rhythm with marked sinus arrhythmia with 1st degree AV block Right bundle branch block Inferior infarct, age undetermined Anterior infarct, age undetermined Abnormal ECG Compared to ECG 09/02/2022 01:25:28 Left-axis deviation no longer present T-wave abnormality no longer present Possible ischemia no longer present Myocardial infarct finding still present Electronically Signed On 09-09-22 15:58:39 CDT by Gianluca Garcia
== END 2022-09-07 20:06 | disposition home or self-care (01) ==
LOC: ER 16:21
DX: R07.9 Chest pain, unspecified (principal); N39.0 Urinary tract infection, site not specified; E11.9 Type 2 diabetes mellitus without complications; Z79.4 Long term (current) use of insulin; I50.9 Heart failure, unspecified; I48.91 Unspecified atrial fibrillation; Z79.01 Long term (current) use of anticoagulants; Z20.822 Contact with and (suspected) exposure to COVID-19
CPT/HCPCS: 93005; 85025; 80048; 36415; 81003; 84484; 87804 ×2; 71045; 96374; 99285; U0003

== ENCOUNTER 2022-10-07 17:02 | Observation (INO) | payer OTHER ==
--- OUTSIDE RECORDS SUMMARY | 2022-10-07 17:11 | XMS REPORT | Continuity of Care Document ---
:1950 Author Organization [facility] t Address [address] [place] [address] Care Team Providers Name Role Phone Pcp, Patient Does Not Have A Primary Care Physician [phone] Attending Clinician Unavailable Meghana Ayala Attending Clinician Unavailable Jose Kim Rahil Attending Clinician Unavailable Jose Kim Attending Clinician Unavailable La Foster RN Attending Clinician Unavailable Charlene Butt DO Attending Clinician Atul Stephens MD Attending Clinician Berna Alcantar MD Attending Clinician [phone] BERNA ALCANTAR Attending Clinician Unavailable Orlando Cannon MD Attending Clinician [id number] Admitting Clinician Unavailable Jose Kim Rahil Admitting Clinician Unavailable Berna Alcantar MD Admitting Clinician [phone] BERNA ALCANTAR Admitting Clinician Unavailable Payers Payer Name Policy Type Policy Number Effective Date Expiration Date S [facility] [id number] Problems Condition Condition Condition Status Onset Resolution [...] Added automatic ally from request for surgery [id number] CHF CHF Problem Active Common (congestiv (congestiv Sp anabela e heart e heart - CHI failure) failure) [facility] Hypertensi Hypertensi Problem Active C ommon on on Spirit - CHI [facility] Diabetes Diabetes Problem Active Commo n type 2, type 2, Spirit controlled controlled [facility] COPD COPD Problem Active Common (chronic (chronic Spirit obstructiv obstructiv - CHI e e pulmonary pulmonary [place] s disease) disease) [facility] Nicotine Nicotine Problem Active Commo n dependence dependence Sp anabela - [facility] Seasonal Seasonal Problem Active Commo n allergic allergic Spirit rhinitis rhinitis - [facility] Adjustment Adjustment Problem Active C ommon disorder disorder Spirit with with - CHI depressed depressed [facility] Chronic Chronic Problem Active Common fatigue fatigue Spirit [facility] Type 2 Type 2 Problem Active Common diabetes diabetes Spirit mellitus mellitus - CHI with with [facility] hyperglyce Anupama kes marci, marci, Medical without without Center long-term long-term current current use of use of insulin insulin Allergies, Adverse Reactions, Alerts Allergy Allergy Status Severity Reaction(s) Onset Inactive Treating Comm ents Source Name Type Date Date Clinician NO KNOWN Drug Active Univers ALLERGIE Class ity of S [facility] Social History Social Habit Start Date Stop Date Quantity Comments Source History of Cigarette Smoker Universi ty of tobacco use [place] [facility] History SDOH Food 2022-07-29 2022-07-29 1 Univers ity of Worry 00:00:00 00:00:00 [place] [facility] History SDOH Food 2022-07-29 2022-07-29 1 Univers ity of Scarcity 00:00:00 00:00:00 [place] [facility] History SDOH 2022-07-29 2022-07-29 2 University o f Transport Med 00:00:00 00:00:00 [place] [facility] History [facility] 2022-07-29 2022-07-29 2 University o f Transport Non-Med 00:00:00 00:00:00 [facility] edical Branch Tobacco use and 2022-07-21 2022-07-21 Smokeless tobacco Un iversity of exposure 00:00:00 00:00:00 non-user [facility] Exposure to 2022-07-10 2022-07-20 Not sure University of SARS-CoV-2 00:00:00 10:56:00 [facility] (event) Branch Sex Ass[birth year] At [birth year] Universit y of 00:00:00 00:00:00 [facility] Smoking Status Start Date Stop Date Source Smokes tobacco daily 2022-07-21 00:00:00 Univers ity of [facility] Medications Ordered Filled Start Stop Current Ordering [...] Until Discontinu ed, Routine furosemide 2021-0 Yes [id number] 40mg Take 1 Univers 40 mg 9-18 tablet by ity of tablet 00:00: mouth in [place] 00 the Medical morning Branch and 1 tablet in the evening. metoprolol 2021-0 Yes [id number] 50mg Take 1 Univers succinate 9-18 tablet by ity o f XL 50 mg 24 00:00: mouth in [place] hr tablet 00 the Medical morning. Branch spironolact 2021-0 Yes [id number] 25mg Take 1 Univers one 25 mg 9-18 tablet by ity o f tablet 00:00: mouth in [place] 00 the Medical morning. Branch furosemide 2021-0 Yes [id number] 40mg Take 1 Univers 40 mg 9-18 tablet by ity of tablet 00:00: mouth in [place] 00 the Medical morning Branch and 1 tablet in the evening. metoprolol 2021-0 Yes [id number] 50mg Take 1 Univers succinate 9-18 tablet by ity o f XL 50 mg 24 00:00: [place] hr tablet 00 the Medical morning. Branch spironolact 2021-0 Yes [id number] 25mg Take 1 Univers one 25 mg 9-18 tablet by ity o f tablet 00:00: mouth in [place] 00 the Medical morning. Branch furosemide 2021-0 Yes [id number] 40mg Take 1 Univers 40 mg 9-18 tablet by ity of tablet 00:00: mouth in [place] 00 the Medical morning Branch and 1 tablet in the evening. metoprolol 2021-0 Yes [id number] 50mg Take 1 Univers succinate 9-18 tablet by ity o f XL 50 mg 24 00:00: [place] hr tablet 00 the Medical morning. Branch spironolact 2021-0 Yes [id number] 25mg Take 1 Univers one 25 mg 9-18 tablet by ity o f tablet 00:00: mouth in [place] 00 the Medical morning. Branch aspirin 2021-0 Yes 81mg Take 81 mg Univ ers (ASPIR-LOW 9-17 by mouth 2 ity of ORAL) 21:46: (two) [place] 23 times Medical daily. Branch insulin 0 Yes 15U inject 15 Unive rs glargine,hu 9-17 Units ity of m.rec.anlog 21:46: under the [place] (LANTUS 23 skin. Medical U-100 Branch INSULIN SC) losartan 25 2021-0 Yes 1{tbl} Take 1 Un rita mg tablet 9-17 tablet by ity o f 21:46: mouth in [place] 23 the Medical morning. Branch montelukast 0 Yes 1{tbl} Take 1 Un rita 10 mg 9-17 tablet by ity of tablet 21:46: mouth in [place] 23 the Medical morning. Branch albuterol 0 Yes 2{puff} Take 2 Uni vers sulfate 9-17 Puffs by ity of (PROAIR 21:46: mouth as [place] RESPICLICK) 23 needed for Me dical 90 Cough. Branch mcg/actuati Cough, on AePB wheezing aspirin 0 Yes 81mg Take 81 mg Univ ers (ASPIR-LOW 9-17 by mouth 2 ity of ORAL) 21:46: (two) [place] 23 times Medical daily. Branch insulin Yes 15U inject 15 Unive rs glargine,hu 9-17 Units ity of m.rec.anlog 21:46: under the [place] (LANTUS 23 skin. Medical U-100 Branch INSULIN SC) losartan 25 0 Yes 1{tbl} Take 1 Un rita mg tablet 9-17 tablet by ity o f 21:46: mouth in [place] 23 the Medical morning. Branch montelukast 0 Yes 1{tbl} Take 1 Un rita 10 mg 9-17 tablet by ity of tablet 21:46: mouth in [place] 23 the Medical morning. Branch albuterol 0 [...] by ity o f 21:46: mouth in [place] [id number] the Medical morning. Branch montelukast Yes 1{tbl} Take 1 Un rita 10 mg 9-17 tablet by ity of tablet 21:46: mouth in [place] 23 the Medical morning. Branch albuterol Yes 2{puff} Take 2 Uni vers sulfate 9-17 Puffs by ity of (PROAIR 21:46: mouth as [place] RESPICLICK) 23 needed for Me dical 90 [...] Branch 07/26/22 at 2030, Routine atorvastati Yes [id number] 40mg Take 1 Univers n 40 mg 9-17 tablet by ity of tablet 00:00: mouth at [place] 00 bedtime. Medical Branch apixaban Yes [id number] 5mg Take 1 Univers (ELIQUIS) 5 9-17 tablet by ity of mg tablet 00:00: [place] 00 the Medical morning Branch and 1 tablet in the evening. Indication s: atrial fibrillati on atorvastati Yes [id number] 40mg Take 1 Univers n 40 mg 9-17 tablet by ity of tablet 00:00: mouth at [place] 00 bedtime. Medical Branch apixaban Yes 1358 5mg Take 1 Univers (ELIQUIS) 5 9-17 tablet by ity of mg tablet 00:00: [place] 00 the Medical morning Branch and 1 tablet in the evening. Indication s: atrial fibrillati on atorvastati Yes [id number] 40mg Take 1 Univers n 40 mg 9-17 tablet by ity of tablet 00:00: mouth at [place] 00 bedtime. Medical Branch apixaban Yes 1358 [...] ed insulin 2021- No 15U 15 Units, [facility] ers glargine 07-26 Subcutaneo ity of (LANTUS 14:00: 04:46 us, DAILY, [place] as U-100) 00 :24 First dose Medical injection (after Branch 15 Units last modificati on) on Fri07/26/22 at 0900, Until Discontinu ed KCL 2021- No 20meq 20 mEq, Univers (KLOR-CON 07-26 Oral, ity of M20) tablet 13:30: 14:05 ONCE, 1 [place] 20 mEq 00 :00 dose, On Medical Fri [place] 07/26/22 at 0830, Routine Sliding Yes Subcutaneo Univ ers Scale 07-26 us, Q6H, ity of Insulin - 01:00: First dose [place] Lispro 00 (after Medical (HumaLOG) + last Branch Fsbg modificati Testing on) on [facility] 07/25/22 at 2000, Until Discontinu ed, Routine Sliding 2021- No Subcutaneo Uni vers Scale 07-26 us, Q6H, ity of Insulin - 01:00: 04:46 First dose [place] Lispro 00 :24 (after Medical (HumaLOG) + last Branch Fsbg modificati Testing on) on [facility] 07/25/22 at 2000, Until Discontinu ed, Routine magnesium 2021- No 2g 2 g, IV [facility] ers sulfate in 07-26 Piggyback, it y [...] :46 First dose Medical on [facility] Branch 07/25/22 at 1100, Until Discontinu [...] LORI insulin 2021- No 2U [address], [facility] rs lispro 07-24 Subcutaneo ity of (human) [...] Routine insulin 2021- No 3U [address], [facility] rs glargine 07-24 Subcutaneo ity of (LANTUS 15:00: 14:27 us, ONCE, [place] U-100) 00 :00 1 dose, On Medical injection 3 Fri Branch Units 07/24/22 at 1000, Routine metoprolol Yes 50mg 50 mg, Unive rs succinate 07-24 Oral, ity of XL (TOPROL 14:15: DAILY, [place] XL) tablet 00 First dose Med ical 50 mg on Fri Branch 07/24/22 at 0915, Until Discontinu ed, Routine metoprolol 2021- No 50mg 50 mg, Univ ers succinate 07-24 Oral, ity of XL (TOPROL 14:15: 04:46 DAILY, [facility] s XL) tablet 00 :24 [...] Rang e, Dosing and Testing: &nbs p;FOR [place], [facility], AND [facility] ONLY - aPTT < 35: & [...] reached.&n bsp; &nbs p; __ &n bsp;FOR [facility] ONLY - aPTT < 40: & [...] Rang e, Dosing and Testing: &nbs p;FOR [facility], [facility], AND [facility] ONLY - aPTT < 35: & [...] 53 Starting Medi jose tablet 1 on [facility] tablet 07/23/22 at 1031, Until Discontinu ed, Routine, Pain (scale 4-6) HYDROcodone 0 2021- No 1{tbl} 1 tablet, Univers -acetaminop 07-23 09-18 Oral, ity of hen (NORCO 15:31: 04:46 Q6HPRN, [place] 5) 5-325 mg 53 :24 Starting Medi jose tablet 1 on Fri [place] tablet 07/23/22 at 1031, Until 07/27/22 at [...] [place] mg 00 First dose Medical on [facility] 07/22/22 at 0900, Until Discontinu ed, Routine montelukast Yes 10mg 10 mg, Univ ers (SINGULAIR) 07-22 Oral, ity of tablet 10 14:00: DAILY, [place] mg 00 First dose Medical on [facility] 07/22/22 at 0900, Until Discontinu ed, Routine spironolact 2021- No 25mg 25 mg, Uni vers one 07-22 Oral, ity of (ALDACTONE) 14:00: 04:46 DAILY, [place] tablet 25 00 :24 First dose Medi jose mg on [facility] 07/22/22 at 0900, Until Discontinu ed, Routine aspirin No 81mg 81 mg, Univers chewable 07-22 Oral, ity of tablet 81 14:00: 04:46 DAILY, [place] mg 00 :24 First dose Medical on [facility] 07/22/22 at 0900, Until Discontinu ed, Routine losartan 2021- No 25mg 25 mg, Univer s (COZAAR) 07-22 Oral, ity of tablet 25 14:00: 04:46 DAILY, [place] mg 00 :24 First dose Medical on [facility] 07/22/22 at 0900, Until Discontinu ed, Routine montelukast 2021- No 10mg 10 mg, Uni vers (SINGULAIR) 07-22 Oral, ity of tablet 10 14:00: 04:46 DAILY, [place] mg 00 :24 First dose Medical on [facility] 07/22/22 at 0900, Until Discontinu ed, Routine metoprolol 2021- No 50mg 50 mg, Univ ers tartrate 07-22 Oral, BID ity o f (LOPRESSOR) 13:00: 14:10 MEALS, [place] as tablet 50 00 :14 First dose Medi jose mg on [facility] 07/22/22 at 0800, Until Discontinu ed, Routine atorvastati Yes 40mg 40 mg, Univ ers n (LIPITOR) 07-22 Oral, QHS, it y of tablet 40 02:00: First dose [place] mg 00 on [facility] 07/21/22 at Branch 2100, Until Discontinu ed, Routine atorvastati 2021- No 40mg 40 mg, Uni vers n (LIPITOR) 07-22 Oral, QHS, i ty of tablet 40 02:00: 04:46 First dose [place] mg 00 :24 on [facility] 07/21/22 at Branch 2100, Until Discontinu ed, Routine morpHINE (2 2021- No 2mg 2 mg, Slow Univers mg/mL) 07-22 IV Push, ity of injection 2 01:29: 15:32 Q6HPRN, [place] mg 07 :09 Starting Medical on Replaced By [facility] 07/21/22 at 2029, Until 07/23/22 at 1032, Routine, Chest pain furosemide 2021- No 20mg 20 mg, IV U nivers (LASIX) 07-22 Push, ity of injection 01:00: 05:27 Q12H, [place] 20 mg 00 :42 First dose Medical (after Branch last reorder) on [place] 07/21/22 at 2000, Until Discontinu ed, LORI enoxaparin 2021- No 1mg/kg 100 mg Un rita (LOVENOX) 07-22 (rounded ity o f injection 01:00: 05:30 [place] 98.5 [place] 100 mg 00 :31 mg = 1 Medical mg/kg Branch ?98.5 kg), Subcutaneo us, Q12H, First dose (after last modificati on) on [place] 07/21/22 at 2000, Until Discontinu ed, Routine sulfur 2021- No [id number] 5mL 5 mL, Unive rs hexafluorid 07-21 Intravenou i ty of e microsphr 15:45: 15:45 s, ONCE, 1 [place] (LUMASON) 00 :00 dose, On Medica l injection 5 Sun Branch mL 07/21/22 at 1045, Routine
anthropology faculty member approving Restricted medication : ANA LUISA [...] dose [place] Lispro 00 :26 on [facility] Medical (HumaLOG) + 07/20/22 at Br anch Fsbg 1900, Testing Until Discontinu ed, Routine glucagon Yes 1mg 1 mg, Univers (GLUCAGEN 07-20 Intramuscu ity of DIAGNOSTIC 23:48: lar, PRN, [place] KIT) 16 Starting Medical injection 1 on [facility] Branch 07/20/22 at 1848, Until Discontinu ed, LORI, Blood Glucose < or = 70 mg/dL and patient is unable to swallow or has mental changes. dextrose 50 Yes 25mL 25 mL, Univ ers % in water 07-20 Slow IV ity of (D50W) 23:48: Push, PRN, [place] injection 16 Starting Medica l 25 mL on [facility] Branch 07/20/22 at 1848, Until Discontinu ed, LORI, Blood Glucose < or = 70 mg/dL and patient is unable to swallow or has mental status changes. glucagon 2021- No 1mg 1 mg, Univers (GLUCAGEN 07-2018 Intramuscu ity of DIAGNOSTIC 23:48: 04:46 lar, PRN, [place] KIT) 16 :24 Starting Medical injection 1 on [facility] Branch mg 07/20/22 at 1848, Until 07/27/22 [...] status changes. metoprolol No 25mg [address], [facility] ers tartrate 07-20 Oral, Q6H, ity of [...] 00 :00 dose, On Medica l mg [facility] Branch 07/20/22 at 1300, LORI furosemide 2021- No 20mg 20 mg, IV U nivers (LASIX) 07-20 Push, ity of injection 17:58: 18:02 ONCE, 1 [place] 20 mg 00 :00 dose, On Medical [facility] Branch 07/20/22 at 1300, LORI NaCl 0.9% 2021- No 500mL at 999 Univ ers (NS) bolus 07-20 mL/hr, 500 it y of infusion 17:00: 17:15 mL, IV [place] 500 mL 00 :00 Piggyback, Medical ONCE, 1 Branch dose, On [facility] 07/20/22 at 1200, STAT metoprolol 2021- No 5mg 5 mg, Slow Univers (LOPRESSOR) 07-20 IV Push, ity of injection 5 16:15: 16:16 ONCE, 1 [place] mg 00 :00 dose, On Medical [facility] Branch 07/20/22 at 1115, LORI Trelegy Trelegy 2019-0 2020- No Meghana 1 puff Com mon Ellipta Ellipta 2-12 06-11 [place] Spirit 00:00: 00:00 - CHI 00 :00 [facility] HydrOXYzine HydrOXYzine Yes Meghana 1 tablet Common HCl HCl 05-11 [place] as needed Spirit 00:00: - CHI 00 [facility] Ozempic Ozempic 2020- No Meghana 0.5 mg Com mon 05-11 0824 [place] Spirit 00:00: 00:00 - CHI 00 :00 [facility] Januvia Januvia Yes Meghana as Common 11-11 [place] directed Spirit 00:00: - CHI 00 [facility] ProAir ProAir Yes Meghana 2 puffs as Comm on RespiClick RespiClick [place] needed [facility] [place] 3 [place] 3 Yes Meghana 1 capsule Com mon [place] [facility] Montelukast Montelukast Yes Meghana 1 tablet Common Sodium Sodium [place] in the Spirit evening [facility] Lipitor Lipitor Yes Meghana 1 tablet Comm on Jayuya [facility] Losartan Losartan Yes Meghana 1 tablet Co mmon Potassium Potassium [place] Spir it [facility] Metoprolol Metoprolol Yes Meghana 1 tablet Common Tartrate Tartrate [place] with food S pirit [facility] Metformin Metformin Yes Meghana 1 tablet Common HCl HCl [place] with a [facility] meal [facility] Immunizations Ordered Immunization Filled Immunization Date Status Commen ts Source Name Name FLUZONE HIGH DOSE FLUZONE HIGH DOSE 2019-09-14 Completed Common Spirit OVER 65 OVER 65 00:00:00 [facility] Vital Signs Vital Name Observation Time Observation Value Comments Source Systolic blood 2022-07-28 01:43:00 99 mm[Hg] Univer sity [facility] Diastolic blood 2022-07-28 01:43:00 58 mm[Hg] [place] [place] Heart rate 2022-07-28 01:40:00 97 /min [facility] Body temperature 2022-07-28 01:40:00 36.56 Melvi [facility] Respiratory rate 2022-07-28 01:40:00 18 /min General acute hospital Oxygen saturation in 2022-07-28 01:40:00 90 /min [facility] Arterial blood by [facility] Pulse oximetry Branch Body height 2022-07-26 17:49:[address] [facility] [place] Body weight 2022-07-26 17:49:[address] [facility] [place] BMI 2022-07-26 17:49:00 32.23 kg/m2 [facility] Systolic blood 2022-07-26 23:31:00 102 mm[Hg] Univer sity of pressure [facility] Diastolic blood 2022-07-26 23:31:00 59 mm[Hg] [facility] Heart rate 2022-07-26 23:31:00 85 /min [facility] Body temperature 2022-07-26 23:31:[address] [facility] 2022-07-26 23:24:00 19 /min General acute hospital Oxygen saturation in 2022-07-26 23:24:00 93 /min [facility] Arterial blood by [facility] Pulse oximetry Branch Body height 2022-07-26 17:49:[address] [facility] [place] Body weight 2022-07-26 17:49:00 96.163 kg [facility] BMI 2022-07-26 17:49:00 32.23 kg/m2 [facility] Procedures Procedure Date / Time Performing Clinician Source Performed POCT GLUCOSE (AUTOMATED) 2022-07-27 16:45:00 Berna Alcantar [facility] POCT GLUCOSE (AUTOMATED) 2022-07-27 16:45:00 Berna Alcantar [facility] MAGNESIUM 2022-07-27 10:46:[address] [facility] BASIC METABOLIC PANEL (NA, 2022-07-27 10:46:00 Flora Fox [facility] K, CL, CO2, GLUCOSE, BUN, Medica l Branch CREATININE, [place]) N-TERMINAL PRO-BNP 2022-07-27 10:46:00 Flora Fox [facility] MAGNESIUM 2022-07-27 10:46:00 Dominique [facility] Branch BASIC METABOLIC PANEL (NA, 2022-07-27 10:46:00 Flora Fox [facility] K, CL, CO2, GLUCOSE, BUN, Medica l Branch CREATININE, [place]) N-TERMINAL PRO-BNP 2022-07-27 10:46:00 Dominique [facility] y of [facility] POCT GLUCOSE (AUTOMATED) 2022-07-27 10:38:00 Keo Alcantarm Uni versity of [facility] POCT GLUCOSE (AUTOMATED) 2022-07-27 10:38:00 KhKeo fernandezm Uni versity of [facility] POCT GLUCOSE (AUTOMATED) 2022-07-27 04:51:00 KhbettyfeKeom Uni versity of [facility] POCT GLUCOSE (AUTOMATED) 2022-07-27 04:51:00 Keo Alcantarm Uni versity of [facility] POCT GLUCOSE (AUTOMATED) 2022-07-27 01:10:00 KhalifeDavidsam Uni versity of [facility] POCT GLUCOSE (AUTOMATED) 2022-07-27 01:10:00 KhalifeDavidsam Uni versity of [facility] POCT GLUCOSE (AUTOMATED) 2022-07-26 23:37:00 David Alcantarsam Uni versity of [facility] POCT GLUCOSE (AUTOMATED) 2022-07-26 23:37:00 Berna Alcantar Uni versity of [facility] ACTIVATED PARTIAL THRMPLAS 2022-07-26 23:10:00 [facility] 2022-07-26 23:10:00 [facility] CARDIAC CATHETERIZATION 2022-07-26 21:16:04 [facility] ers[facility] CARDIAC CATHETERIZATION 2022-07-26 21:16:04 Katharine [facility] ersity of [facility] CARDIAC CATHETERIZATION 2022-07-26 21:16:04 Katharine [facility] ersity of [facility] CARDIAC CATHETERIZATION 2022-07-26 21:16:04 Katharine [facility] ersity of [facility] CARDIAC CATHETERIZATION 2022-07-26 21:16:04 Katharine [facility] ersity of [facility] CARDIAC CATHETERIZATION 2022-07-26 21:16:04 Katharine [facility] ersity of [facility] CARDIAC CATHETERIZATION 2022-07-26 21:16:04 Katharine [facility] ersity of [facility] CARDIAC CATHETERIZATION 2022-07-26 21:16:04 Katharine [facility] ersity of [facility] CATH PROCEDURE LOG 2022-07-26 20:55:04 Katharine [facility] of [facility] CATH PROCEDURE LOG 2022-07-26 20:55:04 Katharine [facility] of [facility] POCT GLUCOSE (AUTOMATED) 2022-07-26 16:20:00 Berna Alcantar Uni versity of [facility] POCT GLUCOSE (AUTOMATED) 2022-07-26 16:20:00 Berna Alcantar Uni versity of [facility] POCT GLUCOSE (AUTOMATED) 2022-07-26 12:30:00 Berna Alcantar Uni versity of [facility] POCT GLUCOSE (AUTOMATED) 2022-07-26 12:30:00 Berna Alcantar Uni versity of [facility] POCT GLUCOSE (AUTOMATED) 2022-07-26 11:08:00 Berna Alcantar Uni versity of [facility] POCT GLUCOSE (AUTOMATED) 2022-07-26 11:08:00 Berna Alcantar Uni versity of [facility] POCT GLUCOSE (AUTOMATED) 2022-07-26 08:52:00 Berna Alcantar Uni versity of [facility] POCT GLUCOSE (AUTOMATED) 2022-07-26 08:52:00 Berna Alcantar Uni versity of [facility] MAGNESIUM 2022-07-26 05:35:00 Tobias [facility] BASIC METABOLIC PANEL (NA, 2022-07-26 05:35:00 Tobias [facility] K, CL, CO2, GLUCOSE, BUN, Medica l Branch CREATININE, [place]) ACTIVATED PARTIAL THRMPLAS 2022-07-26 05:35:00 Evelio Soni [facility] EXTRA TUBE LAV 2022-07-26 05:35:00 Katharine [facility] o f [facility] MAGNESIUM 2022-07-26 05:35:00 Tobias [facility] BASIC METABOLIC PANEL (NA, 2022-07-26 05:35:00 Tobias [facility] K, CL, CO2, GLUCOSE, BUN, Medica l Branch CREATININE, [place]) ACTIVATED PARTIAL THRMPLAS 2022-07-26 05:35:00 Evelio Soni [facility] EXTRA TUBE LAV 2022-07-26 05:35:00 Katharine [facility] POCT GLUCOSE (AUTOMATED) 2022-07-26 05:20:00 [facility] 2022-07-26 05:20:00 [facility] ([facility]OMATED) 2022-07-26 01:45:00 [facility] ([facility]OMATED) 2022-07-26 01:45:00 [facility] MAG[facility] 2022-07-25 22:15:00 Tobias [facility] BASIC METABOLIC PANEL (NA, 2022-07-25 22:15:00 [facility] [facility] K, CL, CO2, GLUCOSE, BUN, Medica l Branch CREATININE, CA) ACTIVATED PARTIAL THRMPLAS 2022-07-25 22:15:00 Evelio Soni [facility] MAGNESIUM 2022-07-25 22:15:00 Tob[facility] BASIC METABOLIC PANEL (NA, 2022-07-25 22:15:00 [facility] K, CL, CO2, GLUCOSE, BUN, Medica l Branch CREATININE, CA) ACTIVATED PARTIAL THRMPLAS 2022-07-25 22:15:00 Evelio Soni niversalberto [facility] POCT GLUCOSE (AUTOMATED) 2022-07-25 21:22:00 Berna Alcantar [facility] POCT GLUCOSE (AUTOMATED) 2022-07-25 21:22:00 Berna Alcantar [facility] POCT GLUCOSE (AUTOMATED) 2022-07-25 20:46:00 Berna Alcantar [facility] POCT GLUCOSE (AUTOMATED) 2022-07-25 20:46:00 Berna Alcantar [facility] POCT GLUCOSE (AUTOMATED) 2022-07-25 17:09:00 Berna Alcantar [facility] POCT GLUCOSE (AUTOMATED) 2022-07-25 17:09:00 Berna Alcantar [facility] HB ECG ROUTINE & RHYTHM 2022-07-25 14:53:13 [facility] THRM[facility] 2022-07-25 14:53:00 Evelio Soni niversalberto [facility] ACTIVATED PARTIAL THRMPLAS 2022-07-25 14:53:00 Evelio Soni niversalberto [facility] POCT GLUCOSE (AUTOMATED) 2022-07-25 13:12:00 Berna Alcantar [facility] POCT GLUCOSE (AUTOMATED) 2022-07-25 13:12:00 Berna Alcantar [facility] MAGNESIUM 2022-07-25 11:36:00 [facility] BASIC METABOLIC PANEL (NA, 2022-07-25 11:36:00 [facility] K, CL, CO2, GLUCOSE, BUN, Medica l Branch CREATININE, CA) CBC WITH DIFF 2022-07-25 11:36:00 [facility] MAGNESIUM 2022-07-25 11:36:00 [facility] BASIC METABOLIC PANEL (NA, 2022-07-25 11:36:00 [facility] K, CL, CO2, GLUCOSE, BUN, Medica l Branch CREATININE, CA) CBC WITH DIFF 2022-07-25 11:36:00 [facility] ACTIVATED PARTIAL THRMPLAS 2022-07-25 05:15:00 Evelio Soni [facility] ACTIVATED PARTIAL THRMPLAS 2022-07-25 05:15:[address] [facility] [place] [facility] POCT GLUCOSE (AUTOMATED) 2022-07-25 01:58:00 Berna Alcantar [facility] POCT GLUCOSE (AUTOMATED) 2022-07-25 01:58:00 Berna Alcantar Uni [facility] MAGNESIUM 2022-07-24 22:34:00 [facility] BASIC METABOLIC PANEL (NA, 2022-07-24 22:34:00 [facility] K, CL, CO2, GLUCOSE, BUN, Medica l Branch CREATININE, CA) ACTIVATED PARTIAL THRMPLAS 2022-07-24 22:34:00 Evelio Soni [facility] MAGNESIUM 2022-07-24 22:34:00 [facility] BASIC METABOLIC PANEL (NA, 2022-07-24 22:34:00 [facility] K, CL, CO2, GLUCOSE, BUN, Medica l Branch CREATININE, CA) ACTIVATED PARTIAL THRMPLAS 2022-07-24 22:34:00 [facility] POCT GLUCOSE (AUTOMATED) 2022-07-24 20:43:00 Berna Alcantar [facility] POCT GLUCOSE (AUTOMATED) 2022-07-24 20:43:00 Berna Alcantar [facility] POCT GLUCOSE (AUTOMATED) 2022-07-24 17:11:00 Berna Alcantar [facility] POCT GLUCOSE (AUTOMATED) 2022-07-24 17:11:00 Berna Alcantar [facility] POCT GLUCOSE (AUTOMATED) 2022-07-24 14:11:00 Berna Alcantar [facility] POCT GLUCOSE (AUTOMATED) 2022-07-24 14:11:00 AvinashbettyBerna rodriguez Uni versity [facility] ACTIVATED PARTIAL THRMPLAS 2022-07-24 11:37:00 Evelio Soni [facility] ACTIVATED PARTIAL THRMPLAS 2022-07-24 11:37:00 Evelio Soni [facility] MAGNESIUM 2022-07-24 05:51:00 Evelio Soni [facility] BASIC METABOLIC PANEL (NA, 2022-07-24 05:51:00 Evelio Soni [facility] K, CL, CO2, GLUCOSE, BUN, Medica l Branch CREATININE, CA) PROTHROMBIN TIME / INR 2022-07-24 05:51:00 Evelio Soni [facility] ACTIVATED PARTIAL THRMPLAS 2022-07-24 05:51:00 Evelio Soni [facility] MAGNESIUM 2022-07-24 05:51:00 Evelio Soni [facility] BASIC METABOLIC PANEL (NA, 2022-07-24 05:51:00 Evelio Soni [facility] K, CL, CO2, GLUCOSE, BUN, Medica l Branch CREATININE, CA) PROTHROMBIN TIME / INR 2022-07-24 05:51:00 Evelio Soni [facility] ACTIVATED PARTIAL THRMPLAS 2022-07-24 05:51:00 Evelio Soni [facility] POCT GLUCOSE (AUTOMATED) 2022-07-24 01:53:00 [facility] 2022-07-24 01:53:00 [facility] Stephens [facility]ATED) 2022-07-23 21:31:00 [facility]ul Stephens [facility] ([facility]OMATED) 2022-07-23 21:31:00 [facility]ul Stephens [facility]SE (AUTOMATED) 2022-07-23 17:08:00 [facility]ul Stephens [facility]SE (AUTOMATED) 2022-07-23 17:08:00 Atul Stephens Rafaela [facility] POCT GLUCOSE (AUTOMATED) 2022-07-23 12:46:00 Atul Stephens Rafaela [facility] POCT GLUCOSE (AUTOMATED) 2022-07-23 12:46:00 Atul Stephens Rafaela [facility] MAGNESIUM 2022-07-23 09:15:00 [facility] (NA, 2022-07-23 09:15:00 George Vizcaino [facility] K, CL, CO2, GLUCOSE, BUN, Medica l Branch CREATININE, CA) CBC WITH DIFF 2022-07-23 09:15:00 [facility] PRO-BNP 2022-07-23 09:15:00 George Vizcaino [facility] MAGNESIUM 2022-07-23 09:15:00 [facility] BASIC METABOLIC PANEL (NA, 2022-07-23 09:15:00 [facility], CL, CO2, GLUCOSE, BUN, Medica l Branch CREATININE, CA) CBC WITH DIFF 2022-07-23 09:15:00 [facility] N-[facility]MINAL PRO-BNP 2022-07-23 09:15:00 George Vizcaino [facility] POCT GLUCOSE (AUTOMATED) 2022-07-23 02:12:00 Atul Stephens [facility] POCT GLUCOSE (AUTOMATED) 2022-07-23 02:12:00 Atul Stephens [facility] POCT GLUCOSE (AUTOMATED) 2022-07-22 21:12:00 Atul Stephens [facility] POCT GLUCOSE (AUTOMATED) 2022-07-22 21:12:00 Atul Stephens [facility] POCT GLUCOSE (AUTOMATED) 2022-07-22 16:30:00 Atul Stephens [facility] POCT GLUCOSE (AUTOMATED) 2022-07-22 16:30:00 Atul Stephens [facility] POCT GLUCOSE (AUTOMATED) 2022-07-22 12:51:00 Atul Stephens [facility] POCT GLUCOSE (AUTOMATED) 2022-07-22 12:51:00 Atul Stephens [facility] PHOSPHORUS 2022-07-22 08:19:[address] [facility] MAGNESIUM 2022-07-22 08:19:00 Angelo [facility] HEPATIC FUNCTION PANEL 2022-07-22 08:19:00 Atul Stephens [facility] ([id number]) (ALB,T.PRO,BILI Medical Branch T,BU/BC,ALT,AST,ALK PHOS) BASIC METABOLIC PANEL (NA, 2022-07-22 08:19:00 Atul Stephens [facility] K, CL, CO2, GLUCOSE, BUN, Medica l Branch CREATININE, CA) CBC WITH DIFF 2022-07-22 08:19:00 Angelo [facility] N-TERMINAL PRO-BNP 2022-07-22 08:19:00 Atul Stephens [facility] PHOSPHORUS 2022-07-22 08:19:[address] [facility] MAGNESIUM 2022-07-22 08:19:[address] [facility] HEPATIC FUNCTION PANEL 2022-07-22 08:19:00 Atul Stephens [facility] ([id number]) (ALB,T.PRO,BILI Medical Branch T,BU/BC,ALT,AST,ALK PHOS) BASIC METABOLIC PANEL (NA, 2022-07-22 08:19:00 Atul Stephens [facility] K, CL, CO2, GLUCOSE, BUN, Medica l Branch CREATININE, CA) CBC WITH DIFF 2022-07-22 08:19:00 Atul Stephens o f [facility] N-TERMINAL PRO-BNP 2022-07-22 08:19:00 [facility] (AUTOMATED) 2022-07-22 01:44:00 Atul Stephens [facility] POCT GLUCOSE (AUTOMATED) 2022-07-22 01:44:00 Atul Stephens [facility] POCT GLUCOSE (AUTOMATED) 2022-07-21 21:52:00 Atul Stephens [facility] POCT GLUCOSE (AUTOMATED) 2022-07-21 21:52:00 Atul Stephens [facility] POCT GLUCOSE (AUTOMATED) 2022-07-21 16:43:00 Atul Stephens [facility] POCT GLUCOSE (AUTOMATED) 2022-07-21 16:43:00 Atul Stephens [facility] TRANSTHORACIC ECHO (TTE) 2022-07-21 15:28:00 Atul Stephens [facility] COMPLETE W/ CONTRAST Medical [facility] TRANSTHORACIC ECHO (TTE) 2022-07-21 15:28:00 Atul Stephens [facility] COMPLETE W/ CONTRAST Medical [facility] POCT GLUCOSE (AUTOMATED) 2022-07-21 15:00:00 Atul Stephens [facility] POCT GLUCOSE (AUTOMATED) 2022-07-21 15:00:00 Atul Stephens [facility] POCT GLUCOSE (AUTOMATED) 2022-07-21 13:04:00 Atul Stephens [facility] POCT GLUCOSE (AUTOMATED) 2022-07-21 13:04:00 Atul Stephens [facility] MAGNESIUM 2022-07-21 09:41:[address] [facility] TROPONIN I 2022-07-21 09:41:[address] [facility] BASIC METABOLIC PANEL (NA, 2022-07-21 09:41:00 [facility]ul [facility], CL, CO2, GLUCOSE, BUN, Medica l Branch CREATININE, CA) LIPID PANEL ([id number])(TOTAL 2022-07-21 09:41:00 Desmond Ana [facility] CHOLESTEROL, [facility] TRIGLYCERIDES, HDL) CBC WITH DIFF 2022-07-21 09:41:00 Angelo [facility] N-TERMINAL PRO-BNP 2022-07-21 09:41:00 Atul Stephens [facility] MAGNESIUM 2022-07-21 09:41:[address] [facility] TROPONIN I 2022-07-21 09:41:[address] [facility] BASIC METABOLIC PANEL (NA, 2022-07-21 09:41:00 Atul Stephens [facility] [place] K, CL, CO2, GLUCOSE, BUN, Medica l Branch CREATININE, CA) LIPID PANEL (74931)(TOTAL 2022-07-21 09:41:00 Ana Luisa [facility] CHOLESTEROL, Medical Branch TRIGLYCERIDES, HDL) CBC WITH DIFF 2022-07-21 09:41:[address] [facility] N-TERMINAL PRO-BNP 2022-07-21 09:41:00 Atul Stephens [facility] POCT GLUCOSE (AUTOMATED) 2022-07-21 04:09:00 Atul Stephens [facility] POCT GLUCOSE (AUTOMATED) 2022-07-21 04:09:00 Atul Stephens [facility] BLOOD CULTURE SCREEN 2022-07-21 01:45:00 Atul Stephens [facility] BLOOD CULTURE WORKUP 2022-07-21 01:45:00 Atul Stephens [facility] GRAM POSITIVE BLOOD 2022-07-21 01:45:00 Atul Stephens [facility] PATHOGENS DNA [facility] PROBE-AEROBIC BLOOD CULTURE SCREEN 2022-07-21 01:45:00 Atul Stephens [facility] BLOOD CULTURE WORKUP 2022-07-21 01:45:00 Atul Stephens [facility] GRAM POSITIVE BLOOD 2022-07-21 01:45:00 Atul Stephens [facility] PATHOGENS DNA [facility] PROBE-AEROBIC POCT GLUCOSE (AUTOMATED) 2022-07-21 01:26:00 Atul Stephens [facility] POCT GLUCOSE (AUTOMATED) 2022-07-21 01:26:00 Atul Stephens [facility] BLOOD CULTURE SCREEN 2022-07-20 23:43:00 Atul Stephens [facility] BLOOD CULTURE SCREEN 2022-07-20 23:43:00 Atul Stephens [facility] POCT GLUCOSE (AUTOMATED) 2022-07-20 22:24:00 Atul Stephens [facility] POCT GLUCOSE (AUTOMATED) 2022-07-20 22:24:00 Atul Stephens [facility] URINALYSIS 2022-07-20 17:41:00 Charlene Butt [facility] URINALYSIS 2022-07-20 17:41:00 Charlene Butt [facility] XR CHEST 1 VW 2022-07-20 16:16:[address] [facility] XR CHEST 1 VW 2022-07-20 16:16:[address] [facility] TROPONIN I 2022-07-20 16:10:[address] [facility] COMP. METABOLIC PANEL 2022-07-20 16:10:00 Charlene Butt [facility] ([id number]) [facility] CBC WITH DIFF 2022-07-20 16:10:[address] [facility] GLYCOSYLATED HEMOGLOBIN 2022-07-20 16:10:00 Atul Stephens [facility] (A1C) Medical Branch PROTHROMBIN TIME / INR 2022-07-20 16:10:00 Charlene Butt [facility] ACTIVATED PARTIAL THRMPLAS 2022-07-20 16:10:[address] [facility] N-TERMINAL PRO-BNP 2022-07-20 16:10:00 Charlene Butt [facility] COVID-19 (ID NOW RAPID 2022-07-20 16:10:00 Charlene Butt [facility] TESTING) Medical Branch LAB ONLY COVID 2022-07-20 16:10:00 Charlene Butt [facility] TROPONIN I 2022-07-20 16:10:00 Charlene Butt [facility] COMP. METABOLIC PANEL 2022-07-20 16:10:00 Charlene Butt [facility] ([id number]) Medical Branch CBC WITH DIFF 2022-07-20 16:10:00 Charlene Butt [facility] GLYCOSYLATED HEMOGLOBIN 2022-07-20 16:10:00 Atul Stephens [facility] (A1C) Medical Branch PROTHROMBIN TIME / INR 2022-07-20 16:10:00 Charlene Butt [facility] ACTIVATED PARTIAL THRMPLAS 2022-07-20 16:10:00 Saniya Butt [facility] N-TERMINAL PRO-BNP 2022-07-20 16:10:00 Charlene Butt [facility] COVID-19 (ID NOW RAPID 2022-07-20 16:10:00 Charlene Butt [facility] TESTING) Medical Branch LAB ONLY COVID 2022-07-20 16:10:00 Charlene Butt [facility] Branch HB ECG ROUTINE & RHYTHM 2022-07-20 16:05:41 Charlene Butt [facility] STRIP [facility] Branch HB ECG ROUTINE & RHYTHM 2022-07-20 16:05:41 Charlene Butt [facility] NOTICE OF PRIVACY 2022-07-20 15:52:39 Doctor Unassigned, [facility] NOTICE OF PRIVACY 2022-07-20 15:52:39 Doctor Unassigned, [facility] ADMISSION 2022-07-20 05:01:00 Doctor Unassigned, [facility] AD[facility]ION 2022-07-20 05:01:00 Doctor Unassigned, [facility] Encounters Start End Encounter Admission Attending Care Care Encounter Source Date/Time Date/Time Type Type Clinicians Facility Department ID 2022-09-03 Outpatient 3 [id number] [place] [id number] [facility] 08:24:57 [facility] [place] [facility] 2022-09-02 Outpatient 3 [id number] E[facility] REF [id number] [facility] 14:07:05 [facility] [place] 2021-12-[address] [facility] [id number] Common 11:06:38 Meghana [address] [facility] 2022-08-15 2022-08-28 Inpatient 3 Julio ENCPL CRD [id number] [facility] 18:17:00 12:00:00 Jose [facility] [place] 2022-07-29 2022-07-29 Transition ARIANE FosterKhadar [id number] Univers 00:00:00 00:00:00 of Care [place] [id number] it [id number] [id number] [facility] 403 Branch 2022-07-20 2022-07-27 Hospital Charlene Butt [id number] Univers 11:00:00 21:45:00 Encounter Atul Stephens [id number] ity of [facility] 4.2.7.2 .686 [place] [id number] [facility] 089 Branch 2022-07-20 2022-07-27 Inpatient X KATHARINE [facility] [id number] Univers 11:00:00 21:45:00 BERNA ity [facility] 2022-07-26 2022-07-26 Surgery JAMAL Cannon [id number] Univers 18:03:00 21:03:00 Orlando GORDON [id number] it y [facility] 4.2.7.2.686 [facility] [id number] [facility] 840 Branch 2020-04-04 2020-04-04 [facility] [id number] Common 13:00:00 13:00:[address] [facility] 2020-03-22 2020-03-22 [facility] [id number] Common 15:20:00 15:20:[address] [facility] 2019-12-22 2019-12-22 [facility] [id number] Common 10:40:00 10:40:[address] [facility] 2019-12-15 2019-12-15 [facility] [id number] Common 14:00:00 14:00:[address] [facility] 2019-09-14 2019-09-14 [facility] [id number] Common 13:20:00 13:20:[address] [facility] 2019-05-11 2019-05-11 Out[facility] [id number] Common 13:00:00 13:00:[address] [facility] 2018-11-11 2018-11-11 [facility] [id number] Common 13:00:00 13:00:[address] [facility] 2018-10-19 2018-10-19 [facility] [id number] Common 08:30:00 08:30:[address] [facility] 2018-04-22 2018-04-22 Outpatient Lynsey Velez [id number] Common 14:00:00 14:00:00 t [facility] Results Test Description Test Time Test [...] Interpretation Comments POCT GLU (test code = 4642821932) 264 mg/dL 70-110 H Lab Interpretation (test code = Abnormal 57535-6) [facility]27 17:05:15 Test Item Value Reference Range Interpretation Comments POCT GLU (test code = 0139920465) 264 mg/dL 70-110 H Lab Interpretation (test code = Abnormal 34627-3) [facility] [id number] 15:17:32 Test Item Value Reference Range Interpretation Comments NT-proBNP (test code 1090 pg/mL See_Comment H [Autom ated = 1628616838) message] The system which generated this result transmitted reference range : <=125. The reference range was not used to interpret this result as normal/abnormal . ROSLYN (test code = ROSLYN) Biotin has been reported to cause a negative bias, interpret results relative to patient's use of biotin. Lab Interpretation Abnormal (test code = 41170-0) [facility] [id number] 15:17:32 Test Item Value Reference Range Interpretation Comments NT-proBNP (test code 1090 pg/mL See_Comment H [Autom ated = 3963430399) message] The system which generated this result transmitted reference range : <=125. The reference range was not used to interpret this result as normal/abnormal . ROSLYN (test code = ROSLYN) Biotin has been reported to cause a negative bias, interpret results relative to patient's use of biotin. Lab Interpretation Abnormal (test code = 19602-5) [facility]-17 11:45:45 Test Item Value Reference Range Interpretation Comments MAGNESIUM (test code = 6291087104) 1.9 mg/dL 1.7-2.4 Lab Interpretation (test code = Normal 32364-5) [facility]OL[facility] PAN[facility] (NA, K, CL, CO2, GLUCOSE, BUN, CREATININE, CA)2022-07-27 11:45:45 Test Item Value Reference Range Interpretation Comments NA (test code = 130 mmol/L 135-145 L 1527456289) K (test code = 4.1 mmol/L 3.5-5 6878684587) CL (test code = 89 mmol/L 98-108 L 2611510865) CO2 TOTAL (test code = 37 mmol/L 23-31 H 3051733532) AGAP (test code = 2-16 3085329245) BUN (test code = 32 mg/dL 7-23 H 1572819228) GLUCOSE (test code = 180 mg/dL 70-110 H 2840344245) CREATININE (test code = 0.81 mg/dL 0.6-1.25 0001981749) CALCIUM (test code = 8.5 mg/dL 8.6-10.6 L 3354759754) eGFR (test code = mL/min/1.73m2 1665975676) ROSLYN (test code = ROSLYN) Association of [...] tests). Lab Interpretation Abnormal (test code = 21928-1) [facility]22-09-17 11:45:45 Test Item Value Reference Range Interpretation Comments MAGNESIUM (test code = 1992402254) 1.9 mg/dL 1.7-2.4 Lab Interpretation (test code = Normal 78641-1) [facility] (NA, K, CL, CO2, GLUCOSE, BUN, CREATININE, CA)2022-07-27 11:45:45 Test Item Value Reference Range Interpretation Comments NA (test code = 130 mmol/L 135-145 L 8794205554) K (test code = 4.1 mmol/L 3.5-5 8005608817) CL (test code = 89 mmol/L 98-108 L 3429083928) CO2 TOTAL (test code = 37 mmol/L 23-31 H 9385580004) AGAP (test code = 2-16 0382976412) BUN (test code = 32 mg/dL 7-23 H 3381869556) GLUCOSE (test code = 180 mg/dL 70-110 H 5702327607) CREATININE (test code = 0.81 mg/dL 0.6-1.25 2905558700) CALCIUM (test code = 8.5 mg/dL 8.6-10.6 L 6484197285) eGFR (test code = mL/min/1.73m2 5975452808) ROSLYN (test code = ROSLYN) Association of [...] tests). Lab Interpretation Abnormal (test code = 68494-4) [facility] GLUCOSE (AUTOMATED)2022-07-27 10:39:46 Test Item Value Reference Range Interpretation Comments POCT GLU (test code = 3430411540) 198 mg/dL 70-110 H Lab Interpretation (test code = Abnormal 51706-7) [facility] GLUCOSE (AUTOMATED)2022-07-27 10:39:46 Test Item Value Reference Range Interpretation Comments POCT GLU (test code = 5742405776) 198 mg/dL 70-110 H Lab Interpretation (test code = Abnormal 70332-5) [facility] GLUCOSE (AUTOMATED)2022-07-27 04:52:50 Test Item Value Reference Range Interpretation Comments POCT GLU (test code = 2807778391) 213 mg/dL 70-110 H Lab Interpretation (test code = Abnormal 35310-8) [facility] GLUCOSE (AUTOMATED)2022-07-27 04:52:50 Test Item Value Reference Range Interpretation Comments POCT GLU (test code = 7206000577) 213 mg/dL 70-110 H Lab Interpretation (test code = Abnormal 24548-7) [facility] GLUCOSE (AUTOMATED)2022-07-27 01:10:58 Test Item Value Reference Range Interpretation Comments POCT GLU (test code = 2330632198) 284 mg/dL 70-110 H Lab Interpretation (test code = Abnormal 52479-8) [facility] GLUCOSE (AUTOMATED)2022-07-27 01:10:58 Test Item Value Reference Range Interpretation Comments POCT GLU (test code = 0396284167) 284 mg/dL 70-110 H Lab Interpretation (test code = Abnormal 05111-8) [facility] GLUCOSE (AUTOMATED)2022-07-26 23:39:10 Test Item Value Reference Range Interpretation Comments POCT GLU (test code = 0586731656) 199 mg/dL 70-110 H Lab Interpretation (test code = Abnormal 53065-3) [facility] GLUCOSE (AUTOMATED)2022-07-26 23:39:10 Test Item Value Reference Range Interpretation Comments POCT GLU (test code = 4607567530) 199 mg/dL 70-110 H Lab Interpretation (test code = Abnormal 41681-8) [facility] (for use with [facility]arin Infusion)2022-07-26 23:32:33 Test Item Value Reference Range Interpretation Comments APTT Patient (test code = See_Comment [ Automated message] 3173-2) The system [employer] generated this result transmitted ref erence range: 26 - 36 Seconds. The re ference range was not u sed to interpret this result as normal/abnor mal. Lab Interpretation (test Normal code = 99710-7) [facility] 23:32:33 Test Item Value Reference Range Interpretation Comments APTT Patient (test code = See_Comment [ Automated message] 3173-2) The system [employer] generated this result transmitted ref erence range: 26 - 36 Seconds. The re ference range was not u sed to interpret this result as normal/abnor mal. Lab Interpretation (test Normal code = 72952-6) [facility] GLUCOSE (AUTOMATED)2022-07-26 16:22:25 Test Item Value Reference Range Interpretation Comments POCT GLU (test code = 3147045669) 167 mg/dL 70-110 H Lab Interpretation (test code = Abnormal 14370-4) [facility] GLUCOSE (AUTOMATED)2022-07-26 16:22:25 Test Item Value Reference Range Interpretation Comments POCT GLU (test code = 8436037842) 167 mg/dL 70-110 H Lab Interpretation (test code = Abnormal 58056-6) [facility] GLUCOSE (AUTOMATED)2022-07-26 12:31:04 Test Item Value Reference Range Interpretation Comments POCT GLU (test code = 3827614700) 164 mg/dL 70-110 H Lab Interpretation (test code = Abnormal 50917-4) [facility] GLUCOSE (AUTOMATED)2022-07-26 12:31:04 Test Item Value Reference Range Interpretation Comments POCT GLU (test code = 2106031592) 164 mg/dL 70-110 H Lab Interpretation (test code = Abnormal 92448-3) [facility] GLUCOSE (AUTOMATED)2022-07-26 11:09:37 Test Item Value Reference Range Interpretation Comments POCT GLU (test code = 8431094543) 184 mg/dL 70-110 H Lab Interpretation (test code = Abnormal 31940-5) [facility] GLUCOSE (AUTOMATED)2022-07-26 11:09:37 Test Item Value Reference Range Interpretation Comments POCT GLU (test code = 4013040177) 184 mg/dL 70-110 H Lab Interpretation (test code = Abnormal 69161-1) [facility] GLUCOSE (AUTOMATED)2022-07-26 08:53:59 Test Item Value Reference Range Interpretation Comments POCT GLU (test code = 9208548419) 200 mg/dL 70-110 H Lab Interpretation (test code = Abnormal 88667-4) [facility] GLUCOSE (AUTOMATED)2022-07-26 08:53:59 Test Item Value Reference Range Interpretation Comments POCT GLU (test code = 8291144600) 200 mg/dL 70-110 H Lab Interpretation (test code = Abnormal 96186-7) [facility] GLUCOSE (AUTOMATED)2022-07-26 05:20:56 Test Item Value Reference Range Interpretation Comments POCT GLU (test code = 9801341898) 197 mg/dL 70-110 H Lab Interpretation (test code = Abnormal 26344-9) [facility] GLUCOSE (AUTOMATED)2022-07-26 05:20:56 Test Item Value Reference Range Interpretation Comments POCT GLU (test code = 6016407555) 197 mg/dL 70-110 H Lab Interpretation (test code = Abnormal 30697-3) [facility] CULTURE [id number] 03:01:42 Test Item Value Reference Range Interpretation Comments Blood Culture-Aerobic No organisms No growth Previo us (test code = 70639-6) isolated prelim inary verified result was Culture [...] Culture-Anaerobic isolated preliminar y (test code = 95535-8) verifi ed result was Culture In Progress [...] CDT Lab Interpretation Normal (test code = 52365-6) [facility] CULTURE [id number] 03:01:42 Test Item Value Reference Range Interpretation Comments Blood Culture-Aerobic No organisms No growth Previo us (test code = 08453-4) isolated prelim inary verified result was Culture [...] Culture-Anaerobic isolated preliminar y (test code = 19728-1) verifi ed result was Culture In Progress [...] CDT Lab Interpretation Normal (test code = 06380-2) [facility] GLUCOSE (AUTOMATED)2022-07-26 01:46:28 Test Item Value Reference Range Interpretation Comments POCT GLU (test code = 6105482718) 142 mg/dL 70-110 H Lab Interpretation (test code = Abnormal 90164-7) [facility] GLUCOSE (AUTOMATED)2022-07-26 01:46:28 Test Item Value Reference Range Interpretation Comments POCT GLU (test code = 0139419596) 142 mg/dL 70-110 H Lab Interpretation (test code = Abnormal 66208-0) [facility] GLUCOSE (AUTOMATED)2022-07-25 21:23:27 Test Item Value Reference Range Interpretation Comments POCT GLU (test code = 3541830950) 159 mg/dL 70-110 H Lab Interpretation (test code = Abnormal 28794-8) [facility] GLUCOSE (AUTOMATED)2022-07-25 21:23:27 Test Item Value Reference Range Interpretation Comments POCT GLU (test code = 9435960113) 159 mg/dL 70-110 H Lab Interpretation (test code = Abnormal 33409-3) [facility] GLUCOSE (AUTOMATED)2022-07-25 20:47:32 Test Item Value Reference Range Interpretation Comments POCT GLU (test code = 2116761241) 151 mg/dL 70-110 H Lab Interpretation (test code = Abnormal 17122-1) [facility] GLUCOSE (AUTOMATED)2022-07-25 20:47:32 Test Item Value Reference Range Interpretation Comments POCT GLU (test code = 4950919719) 151 mg/dL 70-110 H Lab Interpretation (test code = Abnormal 69812-7) [facility] GLUCOSE (AUTOMATED)2022-07-25 17:16:01 Test Item Value Reference Range Interpretation Comments POCT GLU (test code = 2762979402) 389 mg/dL 70-110 H Lab Interpretation (test code = Abnormal 58240-2) [facility] GLUCOSE (AUTOMATED)2022-07-25 17:16:01 Test Item Value Reference Range Interpretation Comments POCT GLU (test code = 2726098766) 389 mg/dL 70-110 H Lab Interpretation (test code = Abnormal 11626-5) [facility]22-[facility]-25 15:08:51 Test Item Value Reference Range Interpretation Comments APTT Patient (test code = See_Comment [ Automated message] 3173-2) The system [employer] generated this result transmitted ref erence range: 26 - 36 Seconds. The re ference range was not u sed to interpret this result as normal/abnor mal. Lab Interpretation (test Normal code = 82566-5) [facility] (for use with Heparin Infusion)2022-07-25 15:08:51 Test Item Value Reference Range Interpretation Comments APTT Patient (test code = See_Comment [ Automated message] 3173-2) The system [employer] generated this result transmitted ref erence range: 26 - 36 Seconds. The re ference range was not u sed to interpret this result as normal/abnor mal. Lab Interpretation (test Normal code = 03125-1) [facility] GLUCOSE (AUTOMATED)2022-07-25 13:22:34 Test Item Value Reference Range Interpretation Comments POCT GLU (test code = 3470695061) 168 mg/dL 70-110 H Lab Interpretation (test code = Abnormal 98938-1) [facility] GLUCOSE (AUTOMATED)2022-07-25 13:22:34 Test Item Value Reference Range Interpretation Comments POCT GLU (test code = 6490017934) 168 mg/dL 70-110 H Lab Interpretation (test code = Abnormal 20988-4) [facility] GLUCOSE (AUTOMATED)2022-07-25 01:59:34 Test Item Value Reference Range Interpretation Comments POCT GLU (test code = 0792724596) 202 mg/dL 70-110 H Lab Interpretation (test code = Abnormal 13359-7) [facility] GLUCOSE (AUTOMATED)2022-07-25 01:59:34 Test Item Value Reference Range Interpretation Comments POCT GLU (test code = 5462761450) 202 mg/dL 70-110 H Lab Interpretation (test code = Abnormal 87913-7) [facility] METABOLIC PANEL (NA, K, CL, CO2, GLUCOSE, BUN, CREATININE, CA)2022-07-24 23:06:12 Test Item Value Reference Range Interpretation Comments NA (test code = 135 mmol/L 135-145 5773698499) K (test code = 4.1 mmol/L 3.5-5 9048190566) CL (test code = 95 mmol/L 98-108 L 2373334776) CO2 TOTAL (test code = 39 mmol/L 23-31 H 7558742669) AGAP (test code = 2-16 L 5272178685) BUN (test code = 16 mg/dL 7-23 6932605424) GLUCOSE (test code = 140 mg/dL 70-110 H 2085435830) CREATININE (test code = 0.59 mg/dL 0.6-1.25 L 0908473923) CALCIUM (test code = 8.4 mg/dL 8.6-10.6 L 5868587098) eGFR (test code = mL/min/1.73m2 3600493795) ROSLYN (test code = ROSLYN) Association of [...] tests). Lab Interpretation Abnormal (test code = 93542-7) [facility] 23:06:12 Test Item Value Reference Range Interpretation Comments MAGNESIUM (test code = 3977606050) 2.1 mg/dL 1.7-2.4 Lab Interpretation (test code = Normal 63450-6) [facility] (NA, K, CL, CO2, GLUCOSE, BUN, CREATININE, CA)2022-07-24 23:06:12 Test Item Value Reference Range Interpretation Comments NA (test code = 135 mmol/L 135-145 7561847019) K (test code = 4.1 mmol/L 3.5-5 4074606496) CL (test code = 95 mmol/L 98-108 L 2274668850) CO2 TOTAL (test code = 39 mmol/L 23-31 H 5615805535) AGAP (test code = 2-16 L 9975016942) BUN (test code = 16 mg/dL 7-23 2366769898) GLUCOSE (test code = 140 mg/dL 70-110 H 6924198845) CREATININE (test code = 0.59 mg/dL 0.6-1.25 L 4573235096) CALCIUM (test code = 8.4 mg/dL 8.6-10.6 L 0278899633) eGFR (test code = mL/min/1.73m2 1239645749) ROSLYN (test code = ROSLYN) Association of [...] tests). Lab Interpretation Abnormal (test code = 18890-6) [facility] 23:06:12 Test Item Value Reference Range Interpretation Comments MAGNESIUM (test code = 5688673760) 2.1 mg/dL 1.7-2.4 Lab Interpretation (test code = Normal 22995-1) [facility] use [facility] In[facility]2022-07-24 23:00:29 Test Item Value Reference Range Interpretation Comments APTT Patient (test code See_Comment H [Au tomated message] = 3173-2) The system [employer] generated this result transmitted ref erence range: 26 - 36 Seconds. The reference range was not used to int erpret this result as normal/abnormal . Lab Interpretation (test Abnormal code = 85395-0) [facility]2022-07-24 23:00:29 Test Item Value Reference Range Interpretation Comments APTT Patient (test code See_Comment H [Au tomated message] = 3173-2) The system [employer] generated this result transmitted ref erence range: 26 - 36 Seconds. The reference range was not used to int erpret this result as normal/abnormal . Lab Interpretation (test Abnormal code = 47641-0) [facility] GLUCOSE (AUTOMATED)2022-07-24 20:44:06 Test Item Value Reference Range Interpretation Comments POCT GLU (test code = 2570631591) 161 mg/dL 70-110 H Lab Interpretation (test code = Abnormal 44619-9) [facility] GLUCOSE (AUTOMATED)2022-07-24 20:44:06 Test Item Value Reference Range Interpretation Comments POCT GLU (test code = 3641419305) 161 mg/dL 70-110 H Lab Interpretation (test code = Abnormal 81739-1) [facility] GLUCOSE (AUTOMATED)2022-07-24 17:17:45 Test Item Value Reference Range Interpretation Comments POCT GLU (test code = 4601912629) 257 mg/dL 70-110 H Lab Interpretation (test code = Abnormal 15183-3) [facility] GLUCOSE (AUTOMATED)2022-07-24 17:17:45 Test Item Value Reference Range Interpretation Comments POCT GLU (test code = 2990643505) 257 mg/dL 70-110 H Lab Interpretation (test code = Abnormal 66455-9) [facility] GLUCOSE (AUTOMATED)2022-07-24 14:12:13 Test Item Value Reference Range Interpretation Comments POCT GLU (test code = 1742939999) 201 mg/dL 70-110 H Lab Interpretation (test code = Abnormal 30079-0) [facility] GLUCOSE (AUTOMATED)2022-07-24 14:12:13 Test Item Value Reference Range Interpretation Comments POCT GLU (test code = 3191288790) 201 mg/dL 70-110 H Lab Interpretation (test code = Abnormal 53543-5) [facility] GLUCOSE (AUTOMATED)2022-07-24 01:57:51 Test Item Value Reference Range Interpretation Comments POCT GLU (test code = 1962242624) 214 mg/dL 70-110 H Lab Interpretation (test code = Abnormal 01762-5) [facility] GLUCOSE (AUTOMATED)2022-07-24 01:57:51 Test Item Value Reference Range Interpretation Comments POCT GLU (test code = 1340112053) 214 mg/dL 70-110 H Lab Interpretation (test code = Abnormal 02237-6) [facility] GLUCOSE (AUTOMATED)2022-07-23 21:55:56 Test Item Value Reference Range Interpretation Comments POCT GLU (test code = 6687203408) 184 mg/dL 70-110 H Lab Interpretation (test code = Abnormal 42126-4) [facility] GLUCOSE (AUTOMATED)2022-07-23 21:55:56 Test Item Value Reference Range Interpretation Comments POCT GLU (test code = 0205001718) 184 mg/dL 70-110 H Lab Interpretation (test code = Abnormal 01545-9) [facility] GLUCOSE (AUTOMATED)2022-07-23 17:27:48 Test Item Value Reference Range Interpretation Comments POCT GLU (test code = 5566186550) 259 mg/dL 70-110 H Lab Interpretation (test code = Abnormal 84509-6) [facility] GLUCOSE (AUTOMATED)2022-07-23 17:27:48 Test Item Value Reference Range Interpretation Comments POCT GLU (test code = 8476976447) 259 mg/dL 70-110 H Lab Interpretation (test code = Abnormal 03015-1) [facility] GLUCOSE (AUTOMATED)2022-07-23 13:05:59 Test Item Value Reference Range Interpretation Comments POCT GLU (test code = 7023450663) 154 mg/dL 70-110 H Lab Interpretation (test code = Abnormal 46319-3) [facility] GLUCOSE (AUTOMATED)2022-07-23 13:05:59 Test Item Value Reference Range Interpretation Comments POCT GLU (test code = 4489875903) 154 mg/dL 70-110 H Lab Interpretation (test code = Abnormal 32755-9) [facility] GLUCOSE (AUTOMATED)2022-07-23 09:58:20 Test Item Value Reference Range Interpretation Comments POCT GLU (test code = 8127038126) 177 mg/dL 70-110 H Lab Interpretation (test code = Abnormal 10592-2) [facility] GLUCOSE (AUTOMATED)2022-07-23 09:58:20 Test Item Value Reference Range Interpretation Comments POCT GLU (test code = 1270618146) 177 mg/dL 70-110 H Lab Interpretation (test code = Abnormal 86244-4) [facility] GLUCOSE (AUTOMATED)2022-07-22 21:30:57 Test Item Value Reference Range Interpretation Comments POCT GLU (test code = 2102381506) 194 mg/dL 70-110 H Lab Interpretation (test code = Abnormal 84099-4) [facility] GLUCOSE (AUTOMATED)2022-07-22 21:30:57 Test Item Value Reference Range Interpretation Comments POCT GLU (test code = 3506393947) 194 mg/dL 70-110 H Lab Interpretation (test code = Abnormal 02969-7) [facility] GLUCOSE (AUTOMATED)2022-07-22 16:52:50 Test Item Value Reference Range Interpretation Comments POCT GLU (test code = 3162384329) 197 mg/dL 70-110 H Lab Interpretation (test code = Abnormal 14411-8) [facility] GLUCOSE (AUTOMATED)2022-07-22 16:52:50 Test Item Value Reference Range Interpretation Comments POCT GLU (test code = 9368193858) 197 mg/dL 70-110 H Lab Interpretation (test code = Abnormal 97267-9) [facility] GLUCOSE (AUTOMATED)2022-07-22 13:22:34 Test Item Value Reference Range Interpretation Comments POCT GLU (test code = 5420116080) 150 mg/dL 70-110 H Lab Interpretation (test code = Abnormal 33184-6) [facility] GLUCOSE (AUTOMATED)2022-07-22 13:22:34 Test Item Value Reference Range Interpretation Comments POCT GLU (test code = 7554417095) 150 mg/dL 70-110 H Lab Interpretation (test code = Abnormal 56695-0) [id number] 09:38:27 Test Item Value Reference Range Interpretation Comments NT-proBNP (test code 2160 pg/mL See_Comment H [Autom ated = 6614890803) message] The system which generated this result transmitted reference range : <=125. The reference range was not used to interpret this result as normal/abnormal . ROSLYN (test code = ROSLYN) Biotin has been reported to cause a negative bias, interpret results relative to patient's use of biotin. Lab Interpretation Abnormal (test code = 67204-9) [facility] [id number] 09:38:27 Test Item Value Reference Range Interpretation Comments NT-proBNP (test code 2160 pg/mL See_Comment H [Autom ated = 1558767039) message] The system which generated this result transmitted reference range : <=125. The reference range was not used to interpret this result as normal/abnormal . ROSLYN (test code = ROSLYN) Biotin has been reported to cause a negative bias, interpret results relative to patient's use of biotin. Lab Interpretation Abnormal (test code = 08909-0) [facility]2022-[facility]-12 09:31:29 Test Item Value Reference Range Interpretation Comments MAGNESIUM (test code = 9453364441) 1.8 mg/dL 1.7-2.4 Lab Interpretation (test code = Normal 43415-4) [facility] Test Item Value Reference Range Interpretation Comments MAGNESIUM (test code = 3018012308) 1.8 mg/dL 1.7-2.4 Lab Interpretation (test code = Normal 84772-6) [facility] (NA, K, CL, CO2, GLUCOSE, BUN, CREATININE, CA)2022-07-22 09:31:09 Test Item Value Reference Range Interpretation Comments NA (test code = 137 mmol/L 135-145 2669589663) K (test code = 4.0 mmol/L 3.5-5 7994354638) CL (test code = 98 mmol/L 98-108 1035303039) CO2 TOTAL (test code = 34 mmol/L 23-31 H 9570389930) AGAP (test code = 2-16 3521576903) BUN (test code = 16 mg/dL 7-23 6989564340) GLUCOSE (test code = 177 mg/dL 70-110 H 7756987669) CREATININE (test code = 0.66 mg/dL 0.6-1.25 1311714270) CALCIUM (test code = 8.2 mg/dL 8.6-10.6 L 0638703594) eGFR (test code = mL/min/1.73m2 0754089153) ROSLYN (test code = ROSLYN) Association of [...] tests). Lab Interpretation Abnormal (test code = 43179-8) [facility] (NA, K, CL, CO2, GLUCOSE, BUN, CREATININE, CA)2022-07-22 09:31:09 Test Item Value Reference Range Interpretation Comments NA (test code = 137 mmol/L 135-145 4904497893) K (test code = 4.0 mmol/L 3.5-5 5021405578) CL (test code = 98 mmol/L 98-108 7414586652) CO2 TOTAL (test code = 34 mmol/L 23-31 H 3935032822) AGAP (test code = 2-16 6215646389) BUN (test code = 16 mg/dL 7- 1529701954) GLUCOSE (test code = 177 mg/dL 70-110 H 4572891955) CREATININE (test code = 0.66 mg/dL 0.6-1.25 0299626357) CALCIUM (test code = 8.2 mg/dL 8.6-10.6 L 5129060622) eGFR (test code = mL/min/1.73m2 2827206828) ROSLYN (test code = ROSLYN) Association of [...] tests). Lab Interpretation Abnormal (test code = 00053-5) [facility]31507[facility] (ALB,T.PRO,BILI T,BU/BC,ALT,AST,ALK PHOS)2022-07-22 09:30:44 Test Item Value Reference Range Interpretation Comments TOTAL BILI (test code = 6278138311) 1.2 mg/dL 0.1-1.1 H BILI UNCON (test code = 1516741362) 0.9 mg/dL 0.1-1.1 BILI CONJ (test code = 2823701905) 0.0 mg/dL 0-0.3 T PROTEIN (test code = 7281526123) 6.5 g/dL 6.3-8.2 ALBUMIN (test code = 5939776501) 3.7 g/dL 3.5-5 ALK PHOS (test code = 8605012551) 67 U/L 34-122 ALTv (test code = 1742-6) 33 U/L 5-50 AST(SGOT) (test code = 1294159307) 30 U/L 13-40 Lab Interpretation (test code = Abnormal 21759-1) [facility]2022-09-12 09:30:44 Test Item Value Reference Range Interpretation Comments PHOSPHORUS (test code = 4819120774) 3.6 mg/dL 2.5-5 Lab Interpretation (test code = Normal 99873-2) [facility] (61400) (ALB,T.PRO,BILI T,BU/BC,ALT,AST,ALK PHOS)2022-07-22 09:30:44 Test Item Value Reference Range Interpretation Comments TOTAL BILI (test code = 7830193640) 1.2 mg/dL 0.1-1.1 H BILI UNCON (test code = 6486882771) 0.9 mg/dL 0.1-1.1 BILI CONJ (test code = 8897701831) 0.0 mg/dL 0-0.3 T PROTEIN (test code = 4432835134) 6.5 g/dL 6.3-8.2 ALBUMIN (test code = 7252584001) 3.7 g/dL 3.5-5 ALK PHOS (test code = 4300646010) 67 U/L 34-122 ALTv (test code = 1742-6) 33 U/L 5-50 AST(SGOT) (test code = 3503634144) 30 U/L 13-40 Lab Interpretation (test code = Abnormal 87653-6) [facility]2022-09-12 09:30:44 Test Item Value Reference Range Interpretation Comments PHOSPHORUS (test code = 8591018204) 3.6 mg/dL 2.5-5 Lab Interpretation (test code = Normal 94893-1) [facility] WITH [id number] 09:23:08 Test Item Value Reference Range Interpretation [...] RDW-SD (test code = 46.6 fL 38.5-51.6 92986-6) RDW-CV (test code = 13.5 % 12.1-15.4 788-0) PLT (test code = See_Comment L [Automated 777-3) message] The system which generated this result transmit artem reference range : 150 - 328 10*3/ ?L. The reference range was not u sed to interpret th is result as normal/abnormal . MPV (test code = 12.7 fL 9.8-13 99059-5) NRBC/100 WBC (test See_Comment [Automat ed code = 5629926117) message] The system which generated this result transmit artem reference range : 0.0 - 10.0 /100 WBCs. The reference range was not used to interpret this result as normal/abnormal . NRBC x10^3 (test code See_Comment [Auto mated = 2040708969) message] The system which generated this result transmit artem reference range : 10*3/?L. The reference range was not used to interpret this result as normal/abnormal . GRAN MAT (NEUT) % 71.3 % (test code = 770-8) IMM GRAN % (test code 0.40 % = 8607239795) LYMPH % (test code = 17.4 % 736-9) MONO % (test code = 9.8 % 5905-5) EOS % (test code = 0.8 % 713-8) BASO % (test code = 0.3 % 706-2) GRAN MAT x10^3(ANC) 10.18 10*3/uL 1.99-6.95 H (test code = 9332641344) IMM GRAN x10^3 (test 0.06 10*3/uL 0-0.06 code = 2825183746) LYMPH x10^3 (test code 2.49 10*3/uL 1.09-3.23 = 731-0) MONO x10^3 (test code 1.40 10*3/uL 0.36-1.02 H = 742-7) EOS x10^3 (test code = 0.11 10*3/uL 0.06-0.53 711-2) BASO x10^3 (test code 0.04 10*3/uL 0.01-0.09 = 704-7) Lab Interpretation Abnormal (test code = 96130-7) [facility] WITH [id number] 09:23:08 Test Item Value Reference Range Interpretation Comments WBC (test code = See_Comment H [Automated 0790-2) message] The system which generated this result [...] RDW-SD (test code = 46.6 fL 38.5-51.6 75742-1) RDW-CV (test code = 13.5 % 12.1-15.4 788-0) PLT (test code = See_Comment L [Automated 777-3) message] The system which generated this result transmit artem reference range : 150 - 328 10*3/ ?L. The reference range was not u sed to interpret th is result as normal/abnormal . MPV (test code = 12.7 fL 9.8-13 77890-8) NRBC/100 WBC (test See_Comment [Automat ed code = 0072666542) message] The system which generated this result transmit artem reference range : 0.0 - 10.0 /100 WBCs. The reference range was not used to interpret this result as normal/abnormal . NRBC x10^3 (test code See_Comment [Auto mated = 5559171158) message] The system which generated this result transmit artem reference range : 10*3/?L. The reference range was not used to interpret this result as normal/abnormal . GRAN MAT (NEUT) % 71.3 % (test code = 770-8) IMM GRAN % (test code 0.40 % = 5669362606) LYMPH % (test code = 17.4 % 736-9) MONO % (test code = 9.8 % 5905-5) EOS % (test code = 0.8 % 713-8) BASO % (test code = 0.3 % 706-2) GRAN MAT x10^3(ANC) 10.18 10*3/uL 1.99-6.95 H (test code = 7285187955) IMM GRAN x10^3 (test 0.06 10*3/uL 0-0.06 code = 5869605676) LYMPH x10^3 (test code 2.49 10*3/uL 1.09-3.23 = 731-0) MONO x10^3 (test code 1.40 10*3/uL 0.36-1.02 H = 742-7) EOS x10^3 (test code = 0.11 10*3/uL 0.06-0.53 711-2) BASO x10^3 (test code 0.04 10*3/uL 0.01-0.09 = 704-7) Lab Interpretation Abnormal (test code = 93219-5) [facility] GLUCOSE (AUTOMATED)2022-07-22 01:47:13 Test Item Value Reference Range Interpretation Comments POCT GLU (test code = 1591553922) 220 mg/dL 70-110 H Lab Interpretation (test code = Abnormal 80014-1) [facility] GLUCOSE (AUTOMATED)2022-07-22 01:47:13 Test Item Value Reference Range Interpretation Comments POCT GLU (test code = 4667443685) 220 mg/dL 70-110 H Lab Interpretation (test code = Abnormal 13369-8) [facility] (00599)(TOTAL CHOLESTEROL, TRIGLYCERIDES, HDL)2022-07-22 00:19:28 Test Item Value Reference Range Interpretation Comments CHOL (test code = 121 mg/dL 120-200 0631310882) HDL (test code = 28 mg/dL See_Comment L [Automated message] 8577877528) The system [employer] generated this result transmit artem reference range : >=40. The refer ence range was not u sed to interpret th is result as normal/abnormal . HDLC RATIO (test code = See_Comment [Au tomated message] 1411276787) The system [employer] generated this result transmit artem reference range : <=5.0. The refe rence range was not u sed to interpret th is result as normal/abnormal . TRIG (test code = 119 mg/dL 30-170 4691074739) LDL CHOL (test code = 69 mg/dL See_Comment [Auto mated message] 01202-3) The system [employer] generated this result transmit artem reference range : <=160. The refe rence range was not u sed to interpret th is result as normal/abnormal . VLDL (test code = 24 mg/dL 5-60 9063194295) Lab Interpretation (test Abnormal code = 15610-3) [facility]TOTAL CHOLESTEROL, TRIGLYCERIDES, HDL)2022-07-22 00:19:28 Test Item Value Reference Range Interpretation Comments CHOL (test code = 121 mg/dL 120-200 6056694561) HDL (test code = 28 mg/dL See_Comment L [Automated message] 8866169817) The system [employer] generated this result transmit artem reference range : >=40. The refer ence range was not u sed to interpret th is result as normal/abnormal . HDLC RATIO (test code = See_Comment [Au tomated message] 7814521390) The system [employer] generated this result transmit artem reference range : <=5.0. The refe rence range was not u sed to interpret th is result as normal/abnormal . TRIG (test code = 119 mg/dL 30-170 5838718349) LDL CHOL (test code = 69 mg/dL See_Comment [Auto mated message] 66209-9) The system [employer] generated this result transmit artem reference range : <=160. The refe rence range was not u sed to interpret th is result as normal/abnormal . VLDL (test code = 24 mg/dL 5-60 1949044028) Lab Interpretation (test Abnormal code = 90498-4) [facility]2022-07-22 00:00:55 Test Item Value Reference Range Interpretation Comments Height (test code = in 3370499928) Weight (test code = lbs 3050553633) Systolic BP (test code = mmHg 0308374788) Diastolic BP (test code mmHg = 7221928034) Heart Rate (test code = bpm 4780828849) BSA (test code = 2.04 m2 4091264548) Ao root annulus (test 3.5 cm code = 5999058479) Ao root diam (test code 3.50 cm = 1326644742) Aortic root (test code = 3.5 cm 2114334447) LVOT diameter (test code 2.19 cm = 9930132481) LVOT area (test code = 3.80 cm2 8096446131) LVIDD (test code = 5.30 cm 9729511292) Left Ventricular End 135.3 mL Diastolic Volume by Teichholz Method (test code = 0355678) IVS (test code = 1.26 cm 2797292903) Interventricular Septum 1.26 cm Diastolic Thickness by 2D (test code = 4508111) LVPWD (test code = 1.26 cm 3010716584) PW (test code = 1.26 cm 0.6-1.8 6207436954) EF(Teich) (test code = 16.40 % 5051911126) LVIDS (test code = 4.90 cm 2175927310) Left Ventricular End 113.1 mL Systolic Volume by Teichholz Method (test code = 8273599) FS (test code = 7 % 2054715898) EF - 2D (test code = 16.40 % 82562895) LA size (test code = 4.3 cm 1312995083) TR Peak Anthony (test code = 249.6 cm/s 0417606955) Triscuspid Valve mmHg Regurgitation Peak Gradient (test code = 6937873029) LAV(MOD-sp4) (test code 79.00 mL = 6753951645) E wave decelartion time 0.13 s (test code = 9749259977) MV Peak E Anthony (test code 82.3 cm/s = 8861231577) MV stenosis pressure 1/2 38.8 ms time (test code = 5485188844) MV Peak A Anthony (test code 40.8 cm/s = 6884791787) E/A ratio (test code = ratio 2311601378) MR max PG (test code = 61.50 mm[Hg] 4362782223) MR max anthony (test code = 392.20 cm/s 5486425949) Mr max anthony (test code = 392.2 m/s 8830759615) MV Prop V (test code = 33.40 cm/s 3132991135) MV E/e' septal (test 12.6 cm/s code = 6265387814) Tapse (test code = 1.17 cm 8051189519) LVOT stroke volume (test 52.20 cm3 code = 9865185417) LVOT peak anthony (test code 86.4 cm/s = 1795435264) LVOT mn grad (test code mmHg = 7615467357) AV LVOT peak gradient mmHg (test code = 3221263089) LVOT peak VTI (test code 13.9 cm = 6775863709) LV V1 mean (test code = 57.20 cm/s 6184918479) Aortic valve mean 94.3 cm/s velocity (test code = 5011033589) Ao peak anthony (test code = 125.8 cm/s 4177214534) Ao VTI (test code = 22.6 cm 2460242932) AV area by cont VTI 2.3 cm2 (test code = 1608438440) AV area peak anthony (test 2.6 cm2 code = 9385996272) Ao max PG (test code = 6.30 mm[Hg] 9981964320) AV peak gradient (test mmHg code = 7404823250) AV valve area (test code 2.31 cm2 = 0070978025) AV mean gradient (test mmHg code = 4626014708) Radiology Study observation (narrative) (test code = 97900-5) ROSLYN (test code = ROSLYN) ?Left?Ventricle: Left [...] mL of Lumason ultrasound enhancing agent used. [facility]2022-07-22 00:00:55 Test Item Value Reference Range Interpretation Comments Height (test code = in 8025918730) Weight (test code = lbs 0698439964) Systolic BP (test code = mmHg 9249088093) Diastolic BP (test code mmHg = 4126650806) Heart Rate (test code = bpm 0283645876) BSA (test code = 2.04 m2 6026435287) Ao root annulus (test 3.5 cm code = 4213119694) Ao root diam (test code 3.50 cm = 9014079889) Aortic root (test code = 3.5 cm 1325093701) LVOT diameter (test code 2.19 cm = 9368363153) LVOT area (test code = 3.80 cm2 6491221770) LVIDD (test code = 5.30 cm 2842680027) Left Ventricular End 135.3 mL Diastolic Volume by Teichholz Method (test code = 1343261) IVS (test code = 1.26 cm 6272494633) Interventricular Septum 1.26 cm Diastolic Thickness by 2D (test code = 7884415) LVPWD (test code = 1.26 cm 5490172375) PW (test code = 1.26 cm 0.6-1.1 7943483725) EF(Teich) (test code = 16.40 % 4878641812) LVIDS (test code = 4.90 cm 6156260888) Left Ventricular End 113.1 mL Systolic Volume by Teichholz Method (test code = 6158313) FS (test code = 7 % 2112253674) EF - 2D (test code = 16.40 % 69691803) LA size (test code = 4.3 cm 8483722878) TR Peak Anthony (test code = 249.6 cm/s 2401899301) Triscuspid Valve mmHg Regurgitation Peak Gradient (test code = 8072771715) LAV(MOD-sp4) (test code 79.00 mL = 1699098384) E wave decelartion time 0.13 s (test code = 0534449834) MV Peak E Anthony (test code 82.3 cm/s = 6698864308) MV stenosis pressure 1/2 38.8 ms time (test code = 0451122884) MV Peak A Anthony (test code 40.8 cm/s = 9337207131) E/A ratio (test code = ratio 6425900260) MR max PG (test code = 61.50 mm[Hg] 3302344229) MR max anthony (test code = 392.20 cm/s 5992155013) Mr max anthony (test code = 392.2 m/s 5155817668) MV Prop V (test code = 33.40 cm/s 2220610597) MV E/e' septal (test 12.6 cm/s code = 0037674318) Tapse (test code = 1.17 cm 9049316888) LVOT stroke volume (test 52.20 cm3 code = 3502122730) LVOT peak anthony (test code 86.4 cm/s = 8807846681) LVOT mn grad (test code mmHg = 4400517331) AV LVOT peak gradient mmHg (test code = 9292205809) LVOT peak VTI (test code 13.9 cm = 6274623532) LV V1 mean (test code = 57.20 cm/s 5023025478) Aortic valve mean 94.3 cm/s velocity (test code = 4720683398) Ao peak anthony (test code = 125.8 cm/s 8838218697) Ao VTI (test code = 22.6 cm 0489221511) AV area by cont VTI 2.3 cm2 (test code = 5764062425) AV area peak anthony (test 2.6 cm2 code = 6447281613) Ao max PG (test code = 6.30 mm[Hg] 1966208370) AV peak gradient (test mmHg code = 8908342837) AV valve area (test code 2.31 cm2 = 2918585213) AV mean gradient (test mmHg code = 6987412305) Radiology Study observation (narrative) (test code = 30434-6) ROSLYN (test code = ROSLYN) ?Left?Ventricle: Left [...] mL of Lumason ultrasound enhancing agent used. [facility] GLUCOSE (AUTOMATED)2022-07-21 21:54:48 Test Item Value Reference Range Interpretation Comments POCT GLU (test code = 3194322142) 161 mg/dL 70-110 H Lab Interpretation (test code = Abnormal 91420-9) [facility] GLUCOSE (AUTOMATED)2022-07-21 21:54:48 Test Item Value Reference Range Interpretation Comments POCT GLU (test code = 2778825863) 161 mg/dL 70-110 H Lab Interpretation (test code = Abnormal 81796-8) [facility] GLUCOSE (AUTOMATED)2022-07-21 16:47:05 Test Item Value Reference Range Interpretation Comments POCT GLU (test code = 9312283899) 132 mg/dL 70-110 H Lab Interpretation (test code = Abnormal 00246-0) [facility] GLUCOSE (AUTOMATED)2022-07-21 16:47:05 Test Item Value Reference Range Interpretation Comments POCT GLU (test code = 0834365502) 132 mg/dL 70-110 H Lab Interpretation (test code = Abnormal 15024-3) [facility] GLUCOSE (AUTOMATED)2022-07-21 15:03:01 Test Item Value Reference Range Interpretation Comments POCT GLU (test code = 6484953879) 182 mg/dL 70-110 H Lab Interpretation (test code = Abnormal 21676-6) [facility]21 15:03:01 Test Item Value Reference Range Interpretation Comments POCT GLU (test code = 5590832175) 182 mg/dL 70-110 H Lab Interpretation (test code = Abnormal 91142-6) [facility] with [id number] 14:58:14 Test Item Value Reference Range Interpretation [...] RDW-SD (test code = 46.4 fL 38.5-51.6 30446-6) RDW-CV (test code = 13.5 % 12.1-15.4 788-0) PLT (test code = See_Comment [Automated 777-3) message] The system which generated this result transmit artem reference range : 150 - 328 10*3/ ?L. The reference range was not u sed to interpret th is result as normal/abnormal . MPV (test code = 13.0 fL 9.8-13 06377-9) NRBC/100 WBC (test See_Comment [Automat ed code = 0833684084) message] The system which generated this result transmit artem reference range : 0.0 - 10.0 /100 WBCs. The reference range was not used to interpret this result as normal/abnormal . NRBC x10^3 (test code See_Comment [Auto mated = 3256086713) message] The system which generated this result transmit artem reference range : 10*3/?L. The reference range was not used to interpret this result as normal/abnormal . GRAN MAT (NEUT) % 71.1 % (test code = 770-8) IMM GRAN % (test code 0.40 % = 5493102134) LYMPH % (test code = 17.6 % 736-9) MONO % (test code = 10.3 % 5905-5) EOS % (test code = 0.3 % 713-8) BASO % (test code = 0.3 % 706-2) GRAN MAT x10^3(ANC) 10.55 10*3/uL 1.99-6.95 H (test code = 5040348943) IMM GRAN x10^3 (test 0.06 10*3/uL 0-0.06 code = 9532483268) LYMPH x10^3 (test code 2.61 10*3/uL 1.09-3.23 = 731-0) MONO x10^3 (test code 1.53 10*3/uL 0.36-1.02 H = 742-7) EOS x10^3 (test code = 0.04 10*3/uL 0.06-0.53 L 711-2) BASO x10^3 (test code 0.04 10*3/uL 0.01-0.09 = 704-7) BANDS (test code = Increased A 3259423691) REACT LYMPHS (test Rare code = 6342461724) GIANT PLATELETS (test Present See_Comment A [Auto mated code = 5908-9) message] The system which generated this result transmit artem reference range : (none). The reference range was not used to interpret this result as normal/abnormal . Lab Interpretation Abnormal (test code = 18974-2) [facility] with [id number] 14:58:14 Test Item Value Reference Range Interpretation Comments WBC (test code = See_Comment H [Automated 6290-2) message] The system which generated this result [...] RDW-SD (test code = 46.4 fL 38.5-51.6 23992-6) RDW-CV (test code = 13.5 % 12.1-15.4 788-0) PLT (test code = See_Comment [Automated 777-3) message] The system which generated this result transmit artem reference range : 150 - 328 10*3/ ?L. The reference range was not u sed to interpret th is result as normal/abnormal . MPV (test code = 13.0 fL 9.8-13 27971-7) NRBC/100 WBC (test See_Comment [Automat ed code = 9074709912) message] The system which generated this result transmit artem reference range : 0.0 - 10.0 /100 WBCs. The reference range was not used to interpret this result as normal/abnormal . NRBC x10^3 (test code See_Comment [Auto mated = 3835109464) message] The system which generated this result transmit artem reference range : 10*3/?L. The reference range was not used to interpret this result as normal/abnormal . GRAN MAT (NEUT) % 71.1 % (test code = 770-8) IMM GRAN % (test code 0.40 % = 0898041725) LYMPH % (test code = 17.6 % 736-9) MONO % (test code = 10.3 % 5905-5) EOS % (test code = 0.3 % 713-8) BASO % (test code = 0.3 % 706-2) GRAN MAT x10^3(ANC) 10.55 10*3/uL 1.99-6.95 H (test code = 6693102656) IMM GRAN x10^3 (test 0.06 10*3/uL 0-0.06 code = 2055447099) LYMPH x10^3 (test code 2.61 10*3/uL 1.09-3.23 = 731-0) MONO x10^3 (test code 1.53 10*3/uL 0.36-1.02 H = 742-7) EOS x10^3 (test code = 0.04 10*3/uL 0.06-0.53 L 711-2) BASO x10^3 (test code 0.04 10*3/uL 0.01-0.09 = 704-7) BANDS (test code = Increased A 0649340830) REACT LYMPHS (test Rare code = 6743540448) GIANT PLATELETS (test Present See_Comment A [Auto mated code = 5908-9) message] The system which generated this result transmit artem reference range : (none). The reference range was not used to interpret this result as normal/abnormal . Lab Interpretation Abnormal (test code = 46328-3) [facility] GLUCOSE (AUTOMATED)2022-07-21 13:20:46 Test Item Value Reference Range Interpretation Comments POCT GLU (test code = 8990810415) 148 mg/dL 70-110 H Lab Interpretation (test code = Abnormal 73260-8) [facility] GLUCOSE (AUTOMATED)2022-07-21 13:20:46 Test Item Value Reference Range Interpretation Comments POCT GLU (test code = 6770554454) 148 mg/dL 70-110 H Lab Interpretation (test code = Abnormal 85121-4) [facility] Metabolic Panel (NA, K, CL, CO2, GLUCOSE, BUN, CREATININE, CA)2022-07-21 13:17:35 Test Item Value Reference Range Interpretation Comments NA (test code = 134 mmol/L 135-145 L 9589480627) K (test code = 4.1 mmol/L 3.5-5 9704327036) CL (test code = 99 mmol/L 98-108 6107772146) CO2 TOTAL (test code = 32 mmol/L 23-31 H 0932003480) AGAP (test code = 2-16 1632411003) BUN (test code = 17 mg/dL 7-23 4863439467) GLUCOSE (test code = 186 mg/dL 70-110 H 0749554191) CREATININE (test code = 0.65 mg/dL 0.6-1.25 1095198639) CALCIUM (test code = 8.2 mg/dL 8.6-10.6 L 4277714722) eGFR (test code = mL/min/1.73m2 6205430739) ROSLYN (test code = ROSLYN) Association of [...] tests). Lab Interpretation Abnormal (test code = 42148-9) [facility] Metabolic Panel (NA, K, CL, CO2, GLUCOSE, BUN, CREATININE, CA)2022-07-21 13:17:35 Test Item Value Reference Range Interpretation Comments NA (test code = 134 mmol/L 135-145 L 5974869410) K (test code = 4.1 mmol/L 3.5-5 8843217529) CL (test code = 99 mmol/L 98-108 4614760410) CO2 TOTAL (test code = 32 mmol/L 23-31 H 4728799024) AGAP (test code = 2-16 6898476213) BUN (test code = 17 mg/dL 7-23 6832672336) GLUCOSE (test code = 186 mg/dL 70-110 H 5743175371) CREATININE (test code = 0.65 mg/dL 0.6-1.25 6325026164) CALCIUM (test code = 8.2 mg/dL 8.6-10.6 L 3186076325) eGFR (test code = mL/min/1.73m2 3620771130) ROSLYN (test code = ROLSYN) Association of Glomerular Filtration Rate (GFR) and [...] tests). Lab Interpretation Abnormal (test code = 77115-4) [facility] [id number] 12:35:48 Test Item Value Reference Interpretation Comments Range TROPONIN I (test 0.032 ng/mL See_Comment [Automated code = 5252760385) message] The system which generated this result [...] biotin. Lab Interpretation Normal (test code = 80963-9) [facility] [id number] 12:35:48 Test Item Value Reference Interpretation Comments Range TROPONIN I (test 0.032 ng/mL See_Comment [Automated code = 5447465435) message] The system which generated this result [...] biotin. Lab Interpretation Normal (test code = 96299-7) [facility] [id number] 12:32:47 Test Item Value Reference Range Interpretation Comments NT-proBNP (test code 3830 pg/mL See_Comment H [Autom ated = 9670472493) message] The system which generated this result transmitted reference range : <=125. The reference range was not used to interpret this result as normal/abnormal . ROSLYN (test code = ROSLYN) Biotin has been reported to cause a negative bias, interpret results relative to patient's use of biotin. Lab Interpretation Abnormal (test code = 42019-6) [facility] [id number] 12:32:47 Test Item Value Reference Range Interpretation Comments NT-proBNP (test code 3830 pg/mL See_Comment H [Autom ated = 5186507990) message] The system which generated this result transmitted reference range : <=125. The reference range was not used to interpret this result as normal/abnormal . ROSLYN (test code = ROSLYN) Biotin has been reported to cause a negative bias, interpret results relative to patient's use of biotin. Lab Interpretation Abnormal (test code = 72264-8) [id number] 12:24:10 Test Item Value Reference Range Interpretation Comments MAGNESIUM (test code = 0473222722) 1.8 mg/dL 1.7-2.4 Lab Interpretation (test code = Normal 08902-7) [facility] [id number] 12:24:10 Test Item Value Reference Range Interpretation Comments MAGNESIUM (test code = 0214912781) 1.8 mg/dL 1.7-2.4 Lab Interpretation (test code = Normal 12660-3) [facility] GLUCOSE (AUTOMATED)2022-07-21 04:19:16 Test Item Value Reference Range Interpretation Comments POCT GLU (test code = 9942843766) 169 mg/dL 70-110 H Lab Interpretation (test code = Abnormal 40067-7) [facility] GLUCOSE (AUTOMATED)2022-07-21 04:19:16 Test Item Value Reference Range Interpretation Comments POCT GLU (test code = 4500261143) 169 mg/dL 70-110 H Lab Interpretation (test code = Abnormal 06338-0) [facility] GLUCOSE (AUTOMATED)2022-07-21 02:03:28 Test Item Value Reference Range Interpretation Comments POCT GLU (test code = 1585554984) 242 mg/dL 70-110 H Lab Interpretation (test code = Abnormal 35699-6) [facility] GLUCOSE (AUTOMATED)2022-07-21 02:03:28 Test Item Value Reference Range Interpretation Comments POCT GLU (test code = 9209094774) 242 mg/dL 70-110 H Lab Interpretation (test code = Abnormal 85035-7) [facility] (A1C)2022-07-21 00:46:20 Test Item Value Reference Range Interpretation Comments HGB A1C (test code = 11.1 % 4-5.7 H 4548-4) ROSLYN (test code = ROSLYN) Reference RangesNormal: <5.7%Prediabetes: 5.7 - 6.4%Diabetes: > 6.5% Lab Interpretation (test Abnormal code = 76567-1) [facility] (A1C[facility]2022-07-21 00:46:20 Test Item Value Reference Range Interpretation Comments HGB A1C (test code = 11.1 % 4-5.7 H 4548-4) ROSLYN (test code = ROSLYN) Reference RangesNormal: <5.7%Prediabetes: 5.7 - 6.4%Diabetes: > 6.5% Lab Interpretation (test Abnormal code = 90820-1) [facility] GLUCOSE (AUTOMATED)2022-07-20 22:27:55 Test Item Value Reference Range Interpretation Comments POCT GLU (test code = 6751472367) 234 mg/dL 70-110 H Lab Interpretation (test code = Abnormal 80033-9) [facility] GLUCOSE (AUTOMATED)2022-07-20 22:27:55 Test Item Value Reference Range Interpretation Comments POCT GLU (test code = 7161294645) 234 mg/dL 70-110 H Lab Interpretation (test code = Abnormal 40852-9) [facility] [id number] 17:21:08 Test Item Value Reference Range Interpretation Comments NT-proBNP (test code 3250 pg/mL See_Comment H [Autom ated = 9963249343) message] The system which generated this result transmitted reference range : <=125. The reference range was not used to interpret this result as normal/abnormal . ROSLYN (test code = ROSLYN) Biotin has been reported to cause a negative bias, interpret results relative to patient's use of biotin. Lab Interpretation Abnormal (test code = 66045-8) [facility] [id number] 17:21:08 Test Item Value Reference Range Interpretation Comments NT-proBNP (test code 3250 pg/mL See_Comment H [Autom ated = 4325641385) message] The system which generated this result transmitted reference range : <=125. The reference range was not used to interpret this result as normal/abnormal . ROSLYN (test code = ROSLYN) Biotin has been reported to cause a negative bias, interpret results relative to patient's use of biotin. Lab Interpretation Abnormal (test code = 40712-9) [facility] WITH [id number] 17:16:49 Test Item Value Reference Range Interpretation Comments WBC (test code = See_Comment H [Automated 5390-2) message] The system which generated this result transmit artem reference range : 4.20 - 10.70 10*3/?L. The reference range was not used to interpret this result as normal/abnormal . RBC (test code = See_Comment H [Automated 109-8) message] The system which generated this result [...] RDW-SD (test code = 44.7 fL 38.5-51.6 50715-9) RDW-CV (test code = 13.7 % 12.1-15.4 788-0) PLT (test code = See_Comment [Automated 777-3) message] The system which generated this result transmit artem reference range : 150 - 328 10*3/ ?L. The reference range was not u sed to interpret th is result as normal/abnormal . MPV (test code = 12.5 fL 9.8-13 07997-1) NRBC/100 WBC (test See_Comment [Automat ed code = 4247759456) message] The system which generated this result transmit artem reference range : 0.0 - 10.0 /100 WBCs. The reference range was not used to interpret this result as normal/abnormal . NRBC x10^3 (test code See_Comment [Auto mated = 7156689042) message] The system which generated this result transmit artem reference range : 10*3/?L. The reference range was not used to interpret this result as normal/abnormal . GRAN MAT (NEUT) % 76.6 % (test code = 770-8) IMM GRAN % (test code 0.70 % = 6376368831) LYMPH % (test code = 13.8 % 736-9) MONO % (test code = 8.5 % 5905-5) EOS % (test code = 0.1 % 713-8) BASO % (test code = 0.3 % 706-2) GRAN MAT x10^3(ANC) 17.13 10*3/uL 1.99-6.95 H (test code = 8361133840) IMM GRAN x10^3 (test 0.16 10*3/uL 0-0.06 H code = 8216778356) LYMPH x10^3 (test code 3.10 10*3/uL 1.09-3.23 = 731-0) MONO x10^3 (test code 1.91 10*3/uL 0.36-1.02 H = 742-7) EOS x10^3 (test code = 0.06-0.53 L 711-2) BASO x10^3 (test code 0.07 10*3/uL 0.01-0.09 = 704-7) BANDS (test code = Increased A 8616579901) REACT LYMPHS (test Rare code = 2289000859) Lab Interpretation Abnormal (test code = 76197-7) [facility] WITH [id number] 17:16:49 Test Item Value Reference Range Interpretation [...] RDW-SD (test code = 44.7 fL 38.5-51.6 73001-9) RDW-CV (test code = 13.7 % 12.1-15.4 788-0) PLT (test code = See_Comment [Automated 777-3) message] The system which generated this result transmit artem reference range : 150 - 328 10*3/ ?L. The reference range was not u sed to interpret th is result as normal/abnormal . MPV (test code = 12.5 fL 9.8-13 92551-8) NRBC/100 WBC (test See_Comment [Automat ed code = 0491080380) message] The system which generated this result transmit artem reference range : 0.0 - 10.0 /100 WBCs. The reference range was not used to interpret this result as normal/abnormal . NRBC x10^3 (test code See_Comment [Auto mated = 0328053070) message] The system which generated this result transmit artem reference range : 10*3/?L. The reference range was not used to interpret this result as normal/abnormal . GRAN MAT (NEUT) % 76.6 % (test code = 770-8) IMM GRAN % (test code 0.70 % = 1348816836) LYMPH % (test code = 13.8 % 736-9) MONO % (test code = 8.5 % 5905-5) EOS % (test code = 0.1 % 713-8) BASO % (test code = 0.3 % 706-2) GRAN MAT x10^3(ANC) 17.13 10*3/uL 1.99-6.95 H (test code = 0489392798) IMM GRAN x10^3 (test 0.16 10*3/uL 0-0.06 H code = 8152267228) LYMPH x10^3 (test code 3.10 10*3/uL 1.09-3.23 = 731-0) MONO x10^3 (test code 1.91 10*3/uL 0.36-1.02 H = 742-7) EOS x10^3 (test code = 0.06-0.53 L 711-2) BASO x10^3 (test code 0.07 10*3/uL 0.01-0.09 = 704-7) BANDS (test code = Increased A 3051250001) REACT LYMPHS (test Rare code = 3936497948) Lab Interpretation Abnormal (test code = 89845-4) [facility] [id number] 16:42:04 Test Item Value Reference Interpretation Comments Range TROPONIN I (test 0.025 ng/mL See_Comment [Automated code = 3508618291) message] The system which generated this result [...] biotin. Lab Interpretation Normal (test code = 19100-4) [facility] [id number] 16:42:04 Test Item Value Reference Interpretation Comments Range TROPONIN I (test 0.025 ng/mL See_Comment [Automated code = 6318882323) message] The system which generated this result [...] biotin. Lab Interpretation Normal (test code = 24225-2) [facility] 16:31:19 Test Item Value Reference Range Interpretation Comments APTT Patient (test See_Comment [Automat ed code = 3173-2) message] The system which generated this result transmitted reference range : 23 - 38 Seconds . The reference range was not used to interpr et this result as normal/abnormal . ROSLYN (test code = ROSLYN) The [facility] patient population mean normal value for aPTT is 30 seconds. Lab Interpretation Normal (test code = 81115-8) [facility]19 Test Item Value Reference Range Interpretation Comments APTT Patient (test See_Comment [Automat ed code = 3173-2) message] The system which generated this result transmitted reference range : 23 - 38 Seconds . The reference range was not used to interpr et this result as normal/abnormal . ROSLYN (test code = ROSLYN) The [facility] patient population mean normal value for aPTT is 30 seconds. Lab Interpretation Normal (test code = 13611-3) [facility]. METABOLIC PANEL ([id number])2022-07-20 16:30:19 Test Item Value Reference Range Interpretation Comments NA (test code = 133 mmol/L 135-145 L 1258764039) K (test code = 5.3 mmol/L 3.5-5 H 7212931768) CL (test code = 98 mmol/L 98-108 9850201917) CO2 TOTAL (test code = 27 mmol/L 23-31 2631177782) AGAP (test code = 2-16 1615059175) BUN (test code = 13 mg/dL 7-23 3183757681) GLUCOSE (test code = 273 mg/dL 70-110 H 6154758163) CREATININE (test code = 0.62 mg/dL 0.6-1.25 9946034728) TOTAL BILI (test code = 2.1 mg/dL 0.1-1.1 H 7417928589) CALCIUM (test code = 8.6 mg/dL 8.6-10.6 5115175680) T PROTEIN (test code = 7.3 g/dL 6.3-8.2 9791923868) ALBUMIN (test code = 4.4 g/dL 3.5-5 9563535655) ALK PHOS (test code = 61 U/L 34-122 1737143440) ALTv (test code = 29 U/L 5-50 1742-6) AST(SGOT) (test code = 36 U/L 13-40 5417794740) eGFR (test code = mL/min/1.73m2 2117334567) ROSLYN (test code = ROSLYN) Association of [...] tests). Lab Interpretation Abnormal (test code = 69028-6) [facility]. METABOLIC PANEL ([id number])2022-07-20 16:30:19 Test Item Value Reference Range Interpretation Comments NA (test code = 133 mmol/L 135-145 L 9521355199) K (test code = 5.3 mmol/L 3.5-5 H 3434001101) CL (test code = 98 mmol/L 98-108 8384124769) CO2 TOTAL (test code = 27 mmol/L 23-31 1200999661) AGAP (test code = 2-16 0132054442) BUN (test code = 13 mg/dL 7-23 0563586360) GLUCOSE (test code = 273 mg/dL 70-110 H 2804979107) CREATININE (test code = 0.62 mg/dL 0.6-1.25 9680171566) TOTAL BILI (test code = 2.1 mg/dL 0.1-1.1 H 6183366133) CALCIUM (test code = 8.6 mg/dL 8.6-10.6 2551893523) T PROTEIN (test code = 7.3 g/dL 6.3-8.2 9569662550) ALBUMIN (test code = 4.4 g/dL 3.5-5 4452536393) ALK PHOS (test code = 61 U/L 34-122 4006766472) ALTv (test code = 29 U/L 5-50 1742-6) AST(SGOT) (test code = 36 U/L 13-40 7433407445) eGFR (test code = mL/min/1.73m2 5121585844) ROSLYN (test code = ROSLYN) Association of [...] tests). Lab Interpretation Abnormal (test code = 53994-0) [facility] / [id number] 16:29:23 Test Item Value Reference Range Interpretation Comments PROTIME PATIENT (test See_Comment [Auto mated message] code = 5964-2) The system [employer] generated this result transmitted ref erence range: 12.0 - 1 4.7 Seconds. The re ference range was not u sed to interpret this result as normal/abnor mal. INR (test code = 6301-6) Nor mal INR <1.1; Warfarin Therap eutic range 2.0 to 3. 0 or 2.5 to 3.5, dep ending upon the indica tions. Lab Interpretation (test Normal code = 47241-4) [facility] / [id number] 16:29:23 Test Item Value Reference Range Interpretation Comments PROTIME PATIENT (test See_Comment [Auto mated message] code = 5964-2) The system [employer] generated this result transmitted ref erence range: 12.0 - 1 4.7 Seconds. The re ference range was not u sed to interpret this result as normal/abnor mal. INR (test code = 6301-6) Nor mal INR <1.1; Warfarin Therap eutic range 2.0 to 3. 0 or 2.5 to 3.5, dep ending upon the indica tions. Lab Interpretation (test Normal code = 44671-5) [facility]"
--- NOTE | 2022-10-07 18:19 | RAD REPORT ---
EXAM DESCRIPTION: RAD - Chest Single View - 10/07/2022 6:09 pm CLINICAL HISTORY: CHEST PAIN COMPARISON: Chest Single View dated 09/07/2022; Chest Single View dated 09/01/2022; Chest Single Vie w dated 08/12/2022; Chest Single View dated 08/10/2022 FINDINGS: Lines: None. Lungs: No evidence of edema or pneumonia. Pleural: No significant pleural effusions or pneumothorax. Cardiac: The heart size is within normal limits. Mediastinum: Within normal limits. Bones: No acute fractures. Other: None IMPRESSION: No acute cardiopulmonary disease.
[2022-10-07 18:26] LABS: Troponin High Sensitivity 15.8 pg/mL (<58.9)
[2022-10-07 18:29] LABS: Absolute Lymphocytes (CBC) 2.9 K/uL (0.7-4.9); Hematocrit 45.7 % (39.6-49.0); Lymphocytes % 22.5 % (15.3-44.8); MCV 91.5 fL (80-100); MPV 10.6 fL (7.6-11.3); Potassium 3.7 mmol/L (3.5-5.1); RBC Red Blood Cell Count 4.99 M/uL (4.33-5.43)
--- NOTE | 2022-10-07 19:32 | EDPHYS ---
Physician Documentation [facility] Name: José Pat Age: 72 yrs Sex: Male : 1950 Arrival Date: 10/07/2022 Time: 17:36 Bed 18 Private MD: ED Physician Tate Schmitt HPI: 10/07 17:38 This 72 yrs old Male presents to ER via EMS with complaints of Chest Pain > 30 y/o. ms3 17:38 The patient or guardian reports chest pain that is located primarily in the substernal ms3 area. Onset: 25 minute(s) ago. The pain does not radiate. Associated signs and symptoms: Pertinent positives: shortness of breath. The chest pain is described as a pressure. Duration: The patient or guardian reports a single episode. Modifying factors: The symptoms are alleviated by nothing. the symptoms are aggravated by nothing. Severity of pain: At its worst the pain was moderate in the emergency department the pain has improved. EMS care prior to arrival includes: nitroglycerin, x 1, with partial relief of the chest pain. Patient took 4-81mg ASA prior to EMS arrival. Historical: - Allergies: 17:38 No Known Allergies; ap3 - Home Meds: 20:40 Eliquis Oral [Active]; Insulin: Lantus Sub-Q [Active]; tamsulosin 0.4 mg Oral cap em6 [Active]; - PMHx: 17:38 Atrial fibrillation; CHF; COPD; Diabetes - IDDM; ap3 - Immunization history:: Adult Immunizations unknown. - Social history:: Smoking status: unknown. ROS: 17:38 Constitutional: Negative for fever, and chills. ENT: Negative for injury, pain, and ms3 discharge, Respiratory: Negative for shortness of breath, cough, wheezing, and pleuritic chest pain, Abdomen/GI: Negative for abdominal pain, nausea, vomiting, diarrhea, and constipation, MS/Extremity: Negative for injury and deformity, Skin: Negative for injury, rash, and discoloration. 17:38 Cardiovascular: Positive for chest pain. 17:38 All other systems are negative. Exam: 17:38 Constitutional: This is a well developed, well nourished patient who is awake, alert, ms3 and in no acute distress. Head/Face: Normocephalic, atraumatic. Neck: Trachea midline, no cervical lymphadenopathy. Supple, full range of motion without nuchal rigidity, or vertebral point tenderness. No Meningismus. Chest/axilla: Normal chest wall appearance and motion. Nontender with no deformity. Cardiovascular: Regular rate and rhythm with a normal S1 and S2. No gallops, murmurs, or rubs. Normal PMI, no JVD. No pulse deficits. Respiratory: Lungs have equal breath sounds bilaterally, clear to auscultation and percussion. No rales, rhonchi or wheezes noted. No increased work of breathing, no retractions or nasal flaring. Abdomen/GI: Soft, non-tender, with normal bowel sounds. No distension or tympany. No guarding or rebound. No evidence of tenderness throughout. Skin: Warm, dry with normal turgor. Normal color with no rashes, no lesions, and no evidence of cellulitis. MS/ Extremity: Pulses equal, no cyanosis. Neurovascular intact. Full, normal range of motion. 17:52 ECG was reviewed by the Attending Physician. ms3 Vital Signs: 17:50 BP 104 / 87; Pulse 51; Resp 18; Temp 98.0; Pulse Ox 91% on R/A; Weight 80.74 kg; Height iw 5 ft. 7 in. (170.18 cm); Pain 6/10; 20:25 BP 123 / 98; Pulse 55; Resp 18; Pulse Ox 99% on R/A; em6 21:30 BP 139 / 80; Pulse 94; Resp 18; Pulse Ox 96% ; jj7 22:35 BP 120 / 81; Pulse 100; Resp 16; Pulse Ox 96% ; jj7 17:50 Body Mass Index 27.88 (80.74 kg, 170.18 cm) iw MDM: 17:37 Patient medically screened. ms3 17:38 Differential diagnosis: abnormal EKG, acute myocardial infarction, chest wall pain, ms3 congestive heart failure. The patient was not given aspirin in the Emergency Department. Patient reports taking aspirin within the past 24 hours. 19:32 Data reviewed: vital signs, nurses notes, lab test result(s), EKG, radiologic studies, ms3 and as a result, I will admit patient. Counseling: I had a detailed discussion with the patient and/or guardian regarding: the historical points, exam findings, and any diagnostic results supporting the discharge/admit diagnosis, lab results, radiology results, the need for further work-up and treatment in the hospital. 10/07 17:37 Order name: Basic Metabolic Panel; Complete Time: 18:57 ms3 10/07 17:37 Order name: CBC with Diff; Complete Time: 18:57 ms3 10/07 17:37 Order name: NT PRO-BNP; Complete Time: 18:57 ms3 10/07 17:37 Order name: Troponin HS; Complete Time: 18:57 ms3 10/07 19:15 Order name: SARS RAPID; Complete Time: 06:30 la1 10/07 23:06 Order name: Glucose, Ancillary Testing; Complete Time: 06:30 EDMS 10/07 23:55 Order name: Troponin High Sensitivity; Complete Time: 06:30 EDMS 10/08 03:07 Order name: CBC with Automated Diff; Complete Time: 06:30 EDMS 10/08 03:29 Order name: Comprehensive Metabolic Panel; Complete Time: 06:30 EDMS 10/08 03:29 Order name: Troponin High Sensitivity; Complete Time: 06:30 EDMS 10/08 03:29 Order name: Lipid Profile; Complete Time: 06:30 EDMS 10/08 03:29 Order name: T4 Free; Complete Time: 06:30 EDMS 10/08 03:29 Order name: Thyroid Stimulating Hormone; Complete Time: 06:30 EDMS 10/08 03:32 Order name: Hemoglobin A1c; Complete Time: 06:30 EDMS 10/07 17:37 Order name: XRAY Chest (1 view); Complete Time: 18:57 ms3 10/07 17:37 Order name: EKG; Complete Time: 17:38 ms3 10/07 17:37 Order name: Cardiac monitoring; Complete Time: 22:20 ms3 10/07 17:37 Order name: EKG - Nurse/Tech; Complete Time: 17:57 ms3 10/07 17:37 Order name: IV Saline Lock; Complete Time: 17:57 ms3 10/07 17:37 Order name: Labs collected and sent; Complete Time: 17:57 ms3 10/07 17:37 Order name: O2 Per Protocol; Complete Time: 17:57 ms3 10/07 17:37 Order name: O2 Sat Monitoring; Complete Time: 17:57 ms3 10/08 08:05 Order name: Glucose, Ancillary Testing EDMS 10/08 12:07 Order name: Glucose, Ancillary Testing EDMS 10/08 16:46 Order name: Glucose, Ancillary Testing EDMS EC:52 Rate is 101 beats/min. Rhythm is regular. QRS interval is prolonged. Clinical ms3 impression: NSR w/ Non-specific ST/T Changes. Interpreted by me. Reviewed by me. Administered Medications: No medications were administered Disposition Summary: 10/07/22 19:32 Hospitalization Ordered Hospitalization Status: Inpatient Admission ms3 Provider: Jaylon Roldan ms3 Condition: Stable ms3 Problem: new ms3 Symptoms: are unchanged ms3 Bed/Room Type: Standard ms3 Location: Telemetry/MedSurg (observation)(10/08/22 18:00) bd Room Assignment: 224(10/08/22 18:00) bd Diagnosis - Heart failure, unspecified ms3 - Chest pain, unspecified ms3 - Dyspnea, unspecified ms3 Forms: - Medication Reconciliation Form ms3 - SBAR form ms3 Signatures: Dispatcher [employer] EDMS Renée Allen bd Marielena Ervin, RN MADELEINE cg Minda Doe RN RN ap3 Tate Schmitt, DO ms3 Maria Gómez, RN RN em6 Jose Miguel Gallegos MD MD rt Corrections: (The following items were deleted from the chart) 20:53 19:32 Telemetry/MedSurg (Inpatient) ms3 cg 20:53 19:32 ms3 cg 10/08 18:00 10/07 20:53 [facility] ER HOLD cg bd 10/08 18:00 10/07 20:53 ERHOLD- cg bd
--- NOTE | 2022-10-07 19:32 | ER ---
Nurse's Notes [facility] Name: José Pat Age: 72 yrs Sex: Male : 1950 Arrival Date: 10/07/2022 Time: 17:36 Bed 18 Private MD: Diagnosis: Heart failure, unspecified;Chest pain, unspecified;Dyspnea, unspecified Presentation: 10/07 17:36 Chief complaint: EMS states: chest pain that began this evening. EMS administered Nitro ap3 x 1, patient self administered ASA 81 mg x3. Pt appears calm, cooperative. Coronavirus screen: Client denies travel out of the [place] in the last 14 days. Ebola Screen: Patient denies exposure to infectious person. Patient denies travel to an Ebola-affected area in the 21 days before illness onset. Risk Assessment: Do you want to hurt yourself or someone else? Patient reports no desire to harm self or others. Note EMS VS 125/87, HR 100, RR 22, 94 % on RA, HX of COPD. Onset of symptoms was October 07, 2022. 17:36 Method Of Arrival: EMS: [facility] ap3 17:36 Acuity: KIT 2 ap3 20:00 Initial Sepsis Screen: Does the patient meet any 2 criteria? No. Patient's initial em6 sepsis screen is negative. Does the patient have a suspected source of infection? No. Patient's initial sepsis screen is negative. Historical: - Allergies: 17:38 No Known Allergies; ap3 - Home Meds: 20:40 Eliquis Oral [Active]; Insulin: Lantus Sub-Q [Active]; tamsulosin 0.4 mg Oral cap em6 [Active]; - PMHx: 17:38 Atrial fibrillation; CHF; COPD; Diabetes - IDDM; ap3 - Immunization history:: Adult Immunizations unknown. - Social history:: Smoking status: unknown. Screenin:00 Abuse screen: Denies threats or abuse. Nutritional screening: No deficits noted. em6 Tuberculosis screening: No symptoms or risk factors identified. Fall Risk Total Baron Fall Scale indicates No Risk (0-24 pts). Assessment: 20:00 General: Appears in no apparent distress. Behavior is cooperative. Pain: Complains of em6 pain in chest Pain does not radiate. Pain currently is 1 out of 10 on a pain scale. Quality of pain is described as pressure, Pain began 1 day ago. Neuro: Padilla Agitation-Sedation Scale (RASS): 0 - Alert and Calm. Cardiovascular: Heart tones present Patient's skin is warm and dry. Rhythm is sinus bradycardia. Respiratory: Airway is patent Respiratory effort is even, unlabored, Respiratory pattern is regular, symmetrical, Breath sounds are clear bilaterally. GI: No signs and/or symptoms were reported involving the gastrointestinal system. : No signs and/or symptoms were reported regarding the genitourinary system. EENT: No signs and/or symptoms were reported regarding the EENT system. Derm: No signs and/or symptoms reported regarding the dermatologic system. Musculoskeletal: Circulation, motion, and sensation intact. Range of motion: intact in all extremities. 20:51 Reassessment: ASSUMED CARE OF PT. PT SITTING IN BED. CP STILL 6/10. NO RADIATING PAIN. jj7 NO DISTRESS NOTED. REQUEST FOR FOOD. PT INFORMED THAT MD WILL NEED TO SEE ALL TEST AND APPROVE FOR HIM TO EAT. PT WATCHING TV. LIGHTS DIMMED. CALL GILL IN REACH. 10/08 18:33 Reassessment: attempted to call report to second floor. stated its 1830 and that I'd kc6 have to wait until after shift change. Vital Signs: 10/07 17:50 BP 104 / 87; Pulse 51; Resp 18; Temp 98.0; Pulse Ox 91% on R/A; Weight 80.74 kg; Height iw 5 ft. 7 in. (170.18 cm); Pain 6/10; 20:25 BP 123 / 98; Pulse 55; Resp 18; Pulse Ox 99% on R/A; em6 21:30 BP 139 / 80; Pulse 94; Resp 18; Pulse Ox 96% ; jj7 22:35 BP 120 / 81; Pulse 100; Resp 16; Pulse Ox 96% ; jj7 17:50 Body Mass Index 27.88 (80.74 kg, 170.18 cm) iw ED Course: 17:36 Patient arrived in ED. ap3 17:37 Tate Schmitt DO is Attending Physician. ms3 17:38 Triage completed. ap3 18:11 XRAY Chest (1 view) In Process Unspecified. EDMS 19:32 Jaylon Roldan MD is Hospitalizing Provider. ms3 20:00 Maintain EMS IV. Dressing intact. Good blood return noted. Site clean \T\ dry. Gauge \T\ em 6 site: 20G. Patient maintains SpO2 saturation greater than 95% on room air. Patient maintains SpO2 saturation greater than 95% on room air. 20:00 Arm band placed on. em6 20:00 Bed in low position. Call light in reach. Side rails up X2. potline monitor on. Pulse em6 ox on. NIBP on. Warm blanket given. 20:24 Maria Gómez, RN is Primary Nurse. em6 20:28 SARS RAPID Sent. em6 22:25 No provider procedures requiring assistance completed. jj7 10/08 18:02 Patient admitted, IV remains in place. kc6 Administered Medications: No medications were administered Medication: 10/07 22:25 VIS not applicable for this client. jj7 Outcome: 19:32 Decision to Hospitalize by Provider. ms3 10/08 18:01 Admitted to Med/surg accompanied by tech, via stretcher, room 224, with oxygen, with kc6 chart. Condition: stable 21:21 Patient left the ED. jj7 Signatures: Dispatcher [employer] EDMS Emely Price, RN Minda Aguila RN RN ap3 Tate Schmitt, DO DO ms3 Vanessa Reyes RN Maria Bunch, RN MADELEINE [email or web address] Adriano Quintana RN RN jj7 Corrections: (The following items were deleted from the chart) 10/07 20:39 20:00 Pain: Complains of pain in chest Pain does not radiate. Pain currently is 1 out em6 of 10 on a pain scale. Quality of pain is described as pressure, em6
--- NOTE | 2022-10-07 20:46 | P.HP ---
Certification for Inpatient Patient admitted to: Observation With expected LOS: <2 Midnights Patient will require the following post-hospital care: None Practitioner: I am a practitioner with admitting privileges, knowledge of patient current condition, hospital course, and medical plan of care. Services: Services provided to patient in accordance with Admission requirements found in Title 42 Section 412.3 of the Code of Federal Regulations Patient History Date of Service: 10/07/22 Reason for admission: Chest pain History of Present Illness: 72-year-old male with history of chronic diastolic congestive heart failure, atrial fibrillation on chronic anticoagulation, diabetes mellitus type 2insulin-dependent presents the emergency department for chest pain. He reports he was sitting when he began to experience a substernal nonradiating pressure-like chest pain with associated shortness of breath/diaphoresis. He took aspirin and came to the Emergency Department for evaluation. His labs were significant for an initial high-sensitivity troponin of 15.8 BNP 2339 white blood cell count 12.9 chest x-ray negative for acute findings EKG shows A. fib rate 101. ED read wishes to admit under observation for ACS rule out. Patient reports noncompliance with oral medications at home, reports he has not had any his medications for the past 2 to 3 weeks. Previous chart review shows he was on Eliquis, amiodarone, insulin. Allergies No Known Allergies Allergy (Verified 06/10/22 22:17) Home Medications: Apixaban [Eliquis] 5 mg PO BID #60 tablet 07/04/22 Aspirin [Aspirin EC 81 MG] 81 mg PO DAILY #30 tablet. 07/04/22 Insulin Glargine,Hum.rec.anlog [Lantus Solostar] 15 unit SQ DAILY 30 Days #2 kit 07/04/22 Metformin HCl [Glucophage*] 500 mg PO BIDWM 30 Days #60 tab 07/04/22 Tamsulosin [Flomax*] 0.4 mg PO DAILY #30 cap 07/04/22 Amiodarone HCl [Cordarone*] 400 mg PO BID tab 08/15/22 Insulin -Regular Human [Novolin -R*] See Protocol SQ ACHS ml 08/15/22 traMADol HCL [Ultram*] 50 mg PO Q6H PRN tab 08/15/22 Trazodone HCl 50 mg PO BEDTIME #15 tab 09/02/22 - Past Medical/Surgical History Diabetic: Yes -: DIVERTICULITIS -: COPD -: A. fib -: Diastolic CHF -: Diabetes mellitus type 2 -: Hypertension -: Hyperlipidemia -: Colostomy and reversal Psychosocial/ Personal History: Patient lives at home with his - Family History Father Notes: mesothelioma Mother -: Heart disease, Hypertension - Social History Smoking Status: Never smoker Alcohol use: No CD- Drugs: No Caffeine use: Yes Place of Residence: Home Review of Systems 10-point ROS is otherwise unremarkable Cardiovascular: Chest Pain, As per HPI Physical Examination - Physical Exam General: Alert, In no apparent distress, Oriented x3 HEENT: Atraumatic, PERRLA, Mucous membr. moist/pink, EOMI, Sclerae nonicteric Neck: Supple, 2+ carotid pulse no bruit, No LAD, Without JVD or thyroid abnormality Respiratory: Clear to auscultation bilaterally, Normal air movement Cardiovascular: Regular rate/rhythm, Normal S1 S2 Capillary refill: <2 Seconds Gastrointestinal: Normal bowel sounds, No tenderness Musculoskeletal: No tenderness Integumentary: No rashes Neurological: Normal gait, Normal speech, Normal strength at 5/5 x4 extr, Normal tone, Normal affect - Studies Laboratory Data (last 24 hrs) 10/07/22 17:51: WBC 12.90 H, Hgb 15.4, Hct 45.7, Plt Count 221 10/07/22 17:51: Sodium 138, Potassium 3.7, BUN 6 L, Creatinine 0.81, Glucose 182 H Assessment and Plan - Plan Assessment: Chest pain rule out ACS Atrial fibrillation on chronic anticoagulation therapy Diabetes was type IIinsulin-dependent Hypertension Hyperlipidemia Plan: Chest pain rule out ACS: Trend troponins, monitor on telemetry, cardiology consulted. Continue Eliquis, other home medications. Patient chest pain-free at this time. Atrial fibrillation on chronic anticoagulation therapy: Patient noncompliant with his medications was not even aware that he was supposed to be on Eliquis, has not had his prescriptions filled from pharmacy in a few weeks now. Restarted Eliquis 5 mg p.o. twice daily. Restart amiodarone once dose is confirmed. Diabetes was type IIinsulin-dependent: He has not been taking his insulin at home either, A1c in the morning. He was previously on 15 units of long-acting son daily. Hypertension: Again noncompliant with medications, not taking medications at home. Will monitor blood pressure and start medications as appropriate. Hyperlipidemia: Continue statin. DVT PPX: Continue Eliquis Code status: Full Discharge Plan: Home Plan to discharge in: 24 Hours - Advance Directives Does patient have a Living Will: No Does patient have a Durable POA for Healthcare: No - Code Status/Comfort Care Code Status Assessed: Yes (Full code) Critical Care: No Time Spent Managing Pts Care (In Minutes): 70
[2022-10-07 21:18] LABS: SARS-CoV-2 Antigen Rapid Res Negative (Negative)
[2022-10-07] MEDS: ATORVASTATIN 40 MG TAB PO SCH (22:49)
[2022-10-07] MEDS: APIXABAN 5 MG TABLET PO SCH (22:49)
[2022-10-07] MEDS ORDERED: ONDANSETRON 4 MG/2 ML VIAL IV PRN (22:49)
[2022-10-07] MEDS: INSULIN -REGULAR HUMAN 50 UNIT/0.5 ML ML SQ SCH (22:49)
[2022-10-07] MEDS ORDERED: ACETAMINOPHEN 500 MG TAB ONE (22:57)
[2022-10-07] MEDS ORDERED: ATORVASTATIN 20 MG TAB ONE (22:58)
[2022-10-07] MEDS ORDERED: APIXABAN 5 MG TABLET ONE (22:58)
[2022-10-07] MEDS: ACETAMINOPHEN 500 MG TAB PO PRN (23:03)
[2022-10-08 00:23] VITALS: BMI 27.8
[2022-10-08 03:06] LABS: Absolute Lymphocytes (CBC) 3.1 K/uL (0.7-4.9); Hematocrit 43.8 % (39.6-49.0); Lymphocytes % 24.4 % (15.3-44.8); MCV 92.3 fL (80-100); MPV 10.2 fL (7.6-11.3); RBC Red Blood Cell Count 4.74 M/uL (4.33-5.43)
[2022-10-08] MEDS ORDERED: BENZONATATE 100 MG CAP PO ONE ×3 (03:26→19:58)
[2022-10-08] MEDS: BENZONATATE 100 MG CAP PO PRN ×3 (03:27→19:59)
[2022-10-08 03:28] LABS: Albumin 3.4 g/dL (3.4-5.0); Bilirubin Total 0.8 mg/dL (0.2-1.0); Potassium 3.3 mmol/L (3.5-5.1); Thyroid Stimulating Hormone 1.72 uIU/mL (0.360-3.740); Troponin High Sensitivity 15.8 pg/mL (<58.9)
[2022-10-08] MEDS: INSULIN -REGULAR HUMAN 50 UNIT/0.5 ML ML SQ SCH ×4 (07:30→21:00)
[2022-10-08] MEDS ORDERED: PNEUMOCOCCAL VACCINE 0.5 ML IMVAC ONE ×2 (08:00→08:09)
[2022-10-08] MEDS ORDERED: APIXABAN 5 MG TABLET ONE (08:09)
[2022-10-08] MEDS ORDERED: POTASSIUM CL SA 10 MEQ TAB PO ONE ×2 (08:31→09:00)
[2022-10-08] MEDS: APIXABAN 5 MG TABLET PO SCH ×2 (09:00→21:35)
--- NOTE | 2022-10-08 14:33 | CON ---
Date of Consultation: 10/08/2022 Reason For Consultation: Chest pain. History Of Present Illness: Mr. Pat is a 72-year-old white male, who has had multiple admissi ons to the hospital for the same purpose. We were unable to do a heart catheterization at one point because he could not lay flat and he was very agitated. At this point, he continues to refuse to hav e heart catheterization. Came in with chest pain. So far, his troponin is negative. BNP is 2000. Glucose is 182. White count is 12,000. He had a normal ejection fraction of 30% to 35%. Last month , he has had atrial fibrillation and had a cardioversion that was successful, but he went back in atr ial fibrillation. He came in with atypical chest pain, graded 4/10. His pain has resolved. MA has ruled out. He has atrial fibrillation, history of CHF, COPD, diabetes. He is supposed to be taking Eliquis, amiodarone, metformin, insulin, Lipitor, and Lasix at home that we were not really sure if tayla horton takes his medications. Past Medical History: As stated above. Allergies: NONE. Review of Systems: Negative. Social History: Negative. Family History: Negative. Medications: Listed earlier. Physical Examination: Vital Signs: He is in atrial fibrillation at a rate of 80, afebrile. Chest pain free now, not havin g any shortness of breath. HEENT: Negative. Neck: Supple with no bruit. Chest: Revealed basilar rales. Cardiac: Revealed atrial fibrillation. No murmurs, gallops, or rubs. Abdomen: Obese. Extremities: Revealed trace edema. Diagnostic Data: As stated earlier. Impression And Plan: 1.Chest pain, most likely secondary to coronary artery disease. The patient is noncompliant with hi s medications, does not want to have heart catheterization done. We will continue his medical regime n. 2.Acute on chronic systolic congestive heart failure. The patient needs to be on Lasix. He should be on carvedilol and Entresto in addition to his Lipitor, Eliquis, amiodarone, metformin, and insulin . Hopefully, he will take his medications. We will try to re-initiate that. I think he may need so cial worker involved in his care so he can be compliant with his medications. So he does not come ba ck to the hospital that often. Again, I have no plan to do another echo or stress test. He just had an echo recently, ejection fraction unchanged. We will continue his present regimen for now, add ca rvedilol, add Entresto low dose at twice a day, add low dose Lasix. Continue Eliquis, Lipitor, amiodarone, metformin, and insulin and try to send him home in the next day or 2. RUPERT/BASSAM Voice ID: [id number] Report ID: [id number]
[2022-10-08] MEDS: ACETAMINOPHEN 500 MG TAB PO PRN (21:35)
[2022-10-08] MEDS: ATORVASTATIN 40 MG TAB PO SCH (21:35)
[2022-10-08 22:24] VITALS: O2SAT 98
[2022-10-09] MEDS: BENZONATATE 100 MG CAP PO PRN (01:02)
[2022-10-09 05:59] LABS: Absolute Lymphocytes (CBC) 2.2 K/uL (0.7-4.9); Hematocrit 44.6 % (39.6-49.0); Lymphocytes % 20.3 % (15.3-44.8); MCV 91.2 fL (80-100); MPV 9.9 fL (7.6-11.3); RBC Red Blood Cell Count 4.89 M/uL (4.33-5.43)
[2022-10-09 06:10] LABS: Albumin 3.3 g/dL (3.4-5.0); Bilirubin Total 0.8 mg/dL (0.2-1.0); Potassium 3.6 mmol/L (3.5-5.1)
[2022-10-09] MEDS: INSULIN -REGULAR HUMAN 50 UNIT/0.5 ML ML SQ SCH ×2 (07:30→11:30)
[2022-10-09] MEDS: ACETAMINOPHEN 500 MG TAB PO PRN (08:57)
[2022-10-09] MEDS: APIXABAN 5 MG TABLET PO SCH (08:58)
[2022-10-09] MEDS ORDERED: POTASSIUM CL SA 10 MEQ TAB PO ONE (09:00)
--- NOTE | 2022-10-09 09:51 | P.PN ---
Subjective Date of Service: 10/08/22 Subjective: No new changes, No C/O voiced, Improving Review of Systems 10-point ROS is otherwise unremarkable Physical Examination - Vital Signs Temperature: 97.5 F Blood Pressure: 105/60 Pulse: 85 Respirations: 17 Pulse Ox (%): 90 - Physical Exam General: Alert, In no apparent distress, Oriented x3 Respiratory: Clear to auscultation bilaterally, Normal air movement Cardiovascular: Regular rate/rhythm, Normal S1 S2, No murmurs Gastrointestinal: Normal bowel sounds, Soft and benign, Non-distended, No tenderness, No rebound, No guarding Musculoskeletal: No clubbing, No swelling, No tenderness Neurological: Sensation intact, Cranial nerves 3-12 intact - Studies Medications List Reviewed: Yes Assessment & Plan - Problems (Diagnosis) (1) Afib Current Visit: No Status: Chronic Qualifiers: Atrial fibrillation type: paroxysmal Qualified Code(s): I48.0 - Paroxysmal atrial fibrillation (2) CHF (congestive heart failure) Current Visit: No Status: Chronic Qualifiers: Heart failure type: diastolic Heart failure chronicity: chronic Qualified Code(s): I50.32 - Chronic diastolic (congestive) heart failure (3) COPD (chronic obstructive pulmonary disease) Current Visit: No Status: Chronic Qualifiers: COPD type: unspecified COPD Qualified Code(s): J44.9 - Chronic obstructive pulmonary disease, unspecified (4) Type 2 diabetes mellitus Current Visit: No Status: Chronic Qualifiers: Diabetes mellitus penitentiary insulin use: with terminal makeup operator use Diabetes mellitus complication status: without complication Qualified Code(s): E11.9 - Type 2 diabetes mellitus without complications; Z79.4 - retirement (current) use of insulin - Plan Plan: 1. Patient continues to be noncompliant. Patient does not take his medications as prescribed. He comes into the hospital when he is in dire straits. Patient will be represcribed his medications and he will be stable for discharge. He does not feel comfortable going home today so we will discharge him in the morning. Discharge Plan: Home Plan to discharge in: 24 Hours - Advance Directives Does patient have a Living Will: No Does patient have a Durable POA for Healthcare: No - Code Status/Comfort Care Code Status Assessed: Yes Code Status: Full Code Critical Care: No Time Spent Managing PTS Care (In Minutes): 35
--- NOTE | 2022-10-09 09:54 | P.DS ---
Discharge Date: 10/09/22 Disposition: ROUTINE DISCHARGE Discharge Condition: GOOD Reason for Admission: Chest pain - Problems (1) Afib Current Visit: No Status: Chronic Qualifiers: Atrial fibrillation type: paroxysmal Qualified Code(s): I48.0 - Paroxysmal atrial fibrillation (2) CHF (congestive heart failure) Current Visit: No Status: Chronic Qualifiers: Heart failure type: diastolic Heart failure chronicity: chronic Qualified Code(s): I50.32 - Chronic diastolic (congestive) heart failure (3) COPD (chronic obstructive pulmonary disease) Current Visit: No Status: Chronic Qualifiers: COPD type: unspecified COPD Qualified Code(s): J44.9 - Chronic obstructive pulmonary disease, unspecified (4) Type 2 diabetes mellitus Current Visit: No Status: Chronic Qualifiers: Diabetes mellitus fdc insulin use: with fdc use Diabetes mellitus complication status: without complication Qualified Code(s): E11.9 - Type 2 diabetes mellitus without complications; Z79.4 - halfway (current) use of insulin Brief History of Present Illness: Pt is a 72-year-old male with history of chronic diastolic congestive heart failure, atrial fibrillation on chronic anticoagulation, diabetes mellitus type 2insulin-dependent presents the emergency department for chest pain. He reports he was sitting when he began to experience a substernal nonradiating pressure-like chest pain with associated shortness of breath/diaphoresis. He took aspirin and came to the Emergency Department for evaluation. His labs were significant for an initial high-sensitivity troponin of 15.8 BNP 2339 white blood cell count 12.9 chest x-ray negative for acute findings EKG shows A. fib rate 101. ED read wishes to admit under observation for ACS rule out. Patient reports noncompliance with oral medications at home, reports he has not had any his medications for the past 2 to 3 weeks. Previous chart review shows he was on Eliquis, amiodarone, insulin. Hospital Course: Patient will be discharged on digoxin, Eliquis, aspirin, and cough medication. Patient is advised to follow-up as an outpatient as soon as possible. Patient is stable for discharge. Vital Signs/Physical Exam: Temp Pulse Resp BP Pulse Ox 97.5 F 85 17 105/60 90 L 10/09/22 09:51 10/09/22 09:51 10/09/22 09:51 10/09/22 09:51 10/09/22 09:51 General: Alert, In no apparent distress, Oriented x3 Laboratory Data at Discharge: WBC 11.00 K/uL (4.3-10.9) H 10/09/22 05:25 Hgb 15.2 g/dL (13.6-17.9) 10/09/22 05:25 Hct 44.6 % (39.6-49.0) 10/09/22 05:25 Plt Count 194 K/uL (152-406) 10/09/22 05:25 Sodium 138 mmol/L (136-145) 10/09/22 05:25 Potassium 3.6 mmol/L (3.5-5.1) 10/09/22 05:25 BUN 8 mg/dL (7-18) 10/09/22 05:25 Creatinine 0.70 mg/dL (0.55-1.3) 10/09/22 05:25 Glucose 167 mg/dL (74-106) H 10/09/22 05:25 Total Bilirubin 0.8 mg/dL (0.2-1.0) 10/09/22 05:25 AST 12 U/L (15-37) L 10/09/22 05:25 ALT 18 U/L (12-78) 10/09/22 05:25 Alkaline Phosphatase 59 U/L (45-117) 10/09/22 05:25 Triglycerides 99 mg/dL (<150) 10/08/22 02:11 Cholesterol 129 mg/dL (<200) 10/08/22 02:11 HDL Cholesterol 36 mg/dL (40-60) L 10/08/22 02:11 Cholesterol/HDL Ratio 3.58 10/08/22 02:11 Home Medications: Aspirin [Aspirin EC 81 MG] 81 mg PO DAILY #30 tablet. 07/04/22 Apixaban [Eliquis] 5 mg PO BID #60 tab 10/09/22 Atorvastatin Calcium [Lipitor] 40 mg PO BEDTIME #30 tab 10/09/22 Benzonatate [Tessalon Perle*] 100 mg PO TID PRN #30 cap 10/09/22 Digoxin 125 mcg PO DAILY #30 tab 10/09/22 New Medications: Digoxin 125 mcg PO DAILY #30 tab Apixaban [Eliquis] 5 mg PO BID #60 tab Atorvastatin Calcium [Lipitor] 40 mg PO BEDTIME #30 tab Benzonatate [Tessalon Perle*] 100 mg PO TID PRN #30 cap PRN Reason: Cough Physician Discharge Instructions: -DC IV and DC home -Follow-up with PCP in 1 to 2 weeks -Follow-up with Cardiology in 1 to 2 weeks -Please call Dr. Roldan at [phone] if any questions regarding hospital stay -Please call nursing station at [phone] if any nursing or medication questions -Return to the emergency room if symptoms worsen Diet: AHA Activity: Fall precautions Followup: NONE,NONE [Primary Care Provider] - Time spent managing pt's care (in minutes): 35
[2022-10-09 15:54] VITALS: BP 111/65; TEMP 97.7
--- NOTE | 2022-10-09 16:29 | EKG ---
Test Date: 2022-10-07 Test Time: 17:52:46 Grant Administrator: MEASUREMENT RESULTS: Intervals: Rate: 101 OR: 214 QRSD: 148 QT: 390 QTc: 505 Anderson: P: 100 OR: 214 QRS: 265 T: 41 INTERPRETIVE STATEMENTS: Suspect arm lead reversal, interpretation assumes no reversal Sinus tachycardia with 1st degree AV block with premature atrial complexes Right bundle branch block Inferior infarct, age undetermined Anterior infarct, age undetermined Abnormal ECG Compared to ECG 09/07/2022 16:41:33 Atrial premature complex(es) now present Sinus rhythm no longer present Sinus arrhythmia no longer present Myocardial infarct finding still present Electronically Signed On 10-09-22 16:23:23 HVAC MANAGER by Nick Coulter
== END 2022-10-09 14:11 | disposition home health service (06) ==
LOC: ER 17:02 → ERHOLD 20:31 → 2ND 10-08 21:14
PROVIDERS: ADMIT Hospitalist; ATTEND Hospitalist
DX: I48.11 Longstanding persistent atrial fibrillation (principal); I50.32 Chronic diastolic (congestive) heart failure; I10 Essential (primary) hypertension; E78.5 Hyperlipidemia, unspecified; J44.9 Chronic obstructive pulmonary disease, unspecified; E11.9 Type 2 diabetes mellitus without complications; Z79.01 Long term (current) use of anticoagulants; Z79.4 Long term (current) use of insulin; Z91.14 Patient's other noncompliance with medication regimen
CPT/HCPCS: 36415; 71045; 80048; 80053; 80061; 82947; 83036; 83880; 84439; 84443; 84484; 85025; 87811; 90471; 90732; 93005; 99285; G0378

== ENCOUNTER 2022-10-11 13:52 | Emergency (ER) | payer OTHER ==
--- OUTSIDE RECORDS SUMMARY | 2022-10-11 13:59 | XMS REPORT | Continuity of Care Document ---
:1950 Author Organization [facility] t Address [address] [place] [address] Care Team Providers Name Role Phone Pcp, Patient Does Not Have A Primary Care Physician [phone] Attending Clinician Unavailable Meghana Ayala Attending Clinician Unavailable Jose Kim Rahil Attending Clinician Unavailable Jose Kim Attending Clinician Unavailable La Foster RN Attending Clinician Unavailable Charlene Butt DO Attending Clinician Atul Stephens MD Attending Clinician Berna Alcantar MD Attending Clinician [phone] BERNA ALCANTAR Attending Clinician Unavailable Orlando Cannon MD Attending Clinician [id number] Admitting Clinician Unavailable oJse Kim Rahil Admitting Clinician Unavailable Berna Alcantar MD Admitting Clinician [phone] BERNA ALCANTAR Admitting Clinician Unavailable Payers Payer Name Policy Type Policy Number Effective Date Expiration Date S [facility] [id number] Problems Condition Condition Condition Status Onset Resolution [...] Added automatic ally from request for surgery [id number] CHF CHF Problem Active Common (congestiv (congestiv Sp anabela e heart e heart - [facility]I failure) failure) [facility] Hypertensi Hypertensi Problem Active C ommon on on Spirit - [facility] Diabetes Diabetes Problem Active Commo n type 2, type 2, Spirit controlled controlled [facility] COPD COPD Problem Active Common (chronic (chronic Spirit obstructiv obstructiv - [facility]I e e pulmonary pulmonary [place] s disease) disease) [facility] Nicotine Nicotine Problem Active Commo n dependence dependence Sp anabela - [facility] Seasonal Seasonal Problem Active Commo n allergic allergic Spirit rhinitis rhinitis - [facility] Adjustment Adjustment Problem Active C ommon disorder disorder Spirit with with - [facility]I depressed depressed [facility] Chronic Chronic Problem Active Common fatigue fatigue Spirit [facility] Type 2 Type 2 Problem Active Common diabetes diabetes Spirit mellitus mellitus - [facility] with with [facility] hyperglyce Anupama kes marci, marci, Medical without without Center long-term long-term current current use of use of insulin insulin Allergies, Adverse Reactions, Alerts Allergy Allergy Status Severity Reaction(s) Onset Inactive Treating Comm ents Source Name Type Date Date Clinician NO KNOWN Drug Active Univers ALLERGIE Class ity of S [facility] Social History Social Habit Start Date Stop Date Quantity Comments Source History of Cigarette Smoker Universi ty of tobacco use [place] [facility] History SDOH Food 2022-07-29 2022-07-29 1 Univers ity of Worry 00:00:00 00:00:00 [place] [facility] History SDOH Food 2022-07-29 2022-07-29 1 Univers ity of Scarcity 00:00:00 00:00:00 [place] [facility] History SDOH 2022-07-29 2022-07-29 2 University o f Transport Med 00:00:00 00:00:00 [place] [facility] History [facility] 2022-07-29 2022-07-29 2 University o f Transport Non-Med 00:00:00 00:00:00 [facility] edical Branch Tobacco use and 2022-07-21 2022-07-21 Smokeless tobacco Un iversity of exposure 00:00:00 00:00:00 non-user [facility] Exposure to 2022-07-10 2022-07-20 Not sure University of SARS-CoV-2 00:00:00 10:56:00 [facility] (event) Branch Sex Ass[birth year] At [birth year] Universit y of 00:00:00 00:00:00 [facility] Smoking Status Start Date Stop Date Source Smokes tobacco daily 2022-07-21 00:00:00 Univers ity of [facility] Medications Ordered Filled Start Stop Current [...] Until Discontinu ed, Routine furosemide 2021-0 Yes [id number] 40mg Take 1 Univers 40 mg 9-18 tablet by ity of tablet 00:00: mouth in [place] 00 the Medical morning Branch and 1 tablet in the evening. metoprolol 2021-0 Yes [id number] 50mg Take 1 Univers succinate 9-18 tablet by ity o f XL 50 mg 24 00:00: mouth in [place] hr tablet 00 the Medical morning. Branch spironolact 2021-0 Yes [id number] 25mg Take 1 Univers one 25 mg 9-18 tablet by ity o f tablet 00:00: mouth in [place] 00 the Medical morning. Branch furosemide 2021-0 Yes [id number] 40mg Take 1 Univers 40 mg 9-18 tablet by ity of tablet 00:00: mouth in [place] 00 the Medical morning Branch and 1 tablet in the evening. metoprolol 2021-0 Yes [id number] 50mg Take 1 Univers succinate 9-18 tablet by ity o f XL 50 mg 24 00:00: [place] hr tablet 00 the Medical morning. Branch spironolact 2021-0 Yes [id number] 25mg Take 1 Univers one 25 mg 9-18 tablet by ity o f tablet 00:00: mouth in [place] 00 the Medical morning. Branch furosemide 2021-0 Yes [id number] 40mg Take 1 Univers 40 mg 9-18 tablet by ity of tablet 00:00: mouth in [place] 00 the Medical morning Branch and 1 tablet in the evening. metoprolol 2021-0 Yes [id number] 50mg Take 1 Univers succinate 9-18 tablet by ity o f XL 50 mg 24 00:00: [place] hr tablet 00 the Medical morning. Branch spironolact 2021-0 Yes [id number] 25mg Take 1 Univers one 25 mg 9-18 tablet by ity o f tablet 00:00: mouth in [place] 00 the Medical morning. Branch aspirin 2021-0 Yes 81mg Take 81 mg Univ ers (ASPIR-LOW 9-17 by mouth 2 ity of ORAL) 21:46: (two) [place] 23 times Medical daily. Branch insulin 0 Yes 15U inject 15 Unive rs glargine,hu 9-17 Units ity of m.rec.anlog 21:46: under the [place] (LANTUS 23 skin. Medical U-100 Branch INSULIN SC) losartan 25 2021-0 Yes 1{tbl} Take 1 Un rita mg tablet 9-17 tablet by ity o f 21:46: mouth in [place] 23 the Medical morning. Branch montelukast 0 Yes 1{tbl} Take 1 Un rita 10 mg 9-17 tablet by ity of tablet 21:46: mouth in [place] 23 the Medical morning. Branch albuterol 0 Yes 2{puff} Take 2 Uni vers sulfate 9-17 Puffs by ity of (PROAIR 21:46: mouth as [place] RESPICLICK) 23 needed for Me dical 90 Cough. Branch mcg/actuati Cough, on AePB wheezing aspirin 0 Yes 81mg Take 81 mg Univ ers (ASPIR-LOW 9-17 by mouth 2 ity of ORAL) 21:46: (two) [place] 23 times Medical daily. Branch insulin Yes 15U inject 15 Unive rs glargine,hu 9-17 Units ity of m.rec.anlog 21:46: under the [place] (LANTUS 23 skin. Medical U-100 Branch INSULIN SC) losartan 25 0 Yes 1{tbl} Take 1 Un rita mg tablet 9-17 tablet by ity o f 21:46: mouth in [place] 23 the Medical morning. Branch montelukast 0 Yes 1{tbl} Take 1 Un rita 10 mg 9-17 tablet by ity of tablet 21:46: mouth in [place] 23 the Medical morning. Branch albuterol 0 [...] by ity o f 21:46: mouth in [place] [id number] the Medical morning. Branch montelukast Yes 1{tbl} Take 1 Un rita 10 mg 9-17 tablet by ity of tablet 21:46: mouth in [place] 23 the Medical morning. Branch albuterol Yes 2{puff} Take 2 Uni vers sulfate 9-17 Puffs by ity of (PROAIR 21:46: mouth as [place] RESPICLICK) 23 needed for Me dical 90 [...] Branch 07/26/22 at 2030, Routine atorvastati Yes [id number] 40mg Take 1 Univers n 40 mg 9-17 tablet by ity of tablet 00:00: mouth at [place] 00 bedtime. Medical Branch apixaban Yes 1358 5mg Take 1 Univers (ELIQUIS) 5 9-17 tablet by ity of mg tablet 00:00: [place] 00 the Medical morning Branch and 1 tablet in the evening. Indication s: atrial fibrillati on atorvastati Yes [id number] 40mg Take 1 Univers n 40 mg 9-17 tablet by ity of tablet 00:00: mouth at [place] 00 bedtime. Medical Branch apixaban Yes 1358 5mg Take 1 Univers (ELIQUIS) 5 9-17 tablet by ity of mg tablet 00:00: [place] 00 the Medical morning Branch and 1 tablet in the evening. Indication s: atrial fibrillati on atorvastati Yes [id number] 40mg Take 1 Univers n 40 mg 9-17 tablet by ity of tablet 00:00: mouth at [place] 00 bedtime. Medical Branch apixaban Yes 1358 [...] ed insulin 2021- No 15U 15 Units, [facility] ers glargine 07-26 Subcutaneo ity of (LANTUS 14:00: 04:46 us, DAILY, [place] as U-100) 00 :24 First dose Medical injection (after Branch 15 Units last modificati on) on Fri07/26/22 at 0900, Until Discontinu ed KCL 2021- No 20meq 20 mEq, Univers (KLOR-CON 07-26 Oral, ity of M20) tablet 13:30: 14:05 ONCE, 1 [place] 20 mEq 00 :00 dose, On Medical Fri [place] 07/26/22 at 0830, Routine Sliding Yes Subcutaneo Univ ers Scale 07-26 us, Q6H, ity of Insulin - 01:00: First dose [place] Lispro 00 (after Medical (HumaLOG) + last Branch Fsbg modificati Testing on) on [facility] 07/25/22 at 2000, Until Discontinu ed, Routine Sliding 2021- No Subcutaneo Uni vers Scale 07-26 us, Q6H, ity of Insulin - 01:00: 04:46 First dose [place] Lispro 00 :24 (after Medical (HumaLOG) + last Branch Fsbg modificati Testing on) on [facility] 07/25/22 at 2000, Until Discontinu ed, Routine magnesium 2021- No 2g 2 g, IV [facility] ers sulfate in 07-26 Piggyback, it y [...] :46 First dose Medical on [facility] Branch 07/25/22 at 1100, Until Discontinu [...] LORI insulin 2021- No 2U 2 Units, [facility] rs lispro 07-24 Subcutaneo ity of (human) [...] Routine insulin 2021- No 3U 3 Units, [facility] rs glargine 07-24 Subcutaneo ity of (LANTUS 15:00: 14:27 [place], ONCE, [place] U-100) 00 :00 1 dose, On Medical injection 3 Fri Branch Units 07/24/22 at 1000, Routine metoprolol Yes 50mg 50 mg, Unive rs succinate 07-24 Oral, ity of XL (TOPROL 14:15: DAILY, [place] XL) tablet 00 First dose Med ical 50 mg on Fri Branch 07/24/22 at 0915, Until Discontinu ed, Routine metoprolol 2021- No 50mg 50 mg, Univ ers succinate 07-24 Oral, ity of XL (TOPROL 14:15: 04:46 DAILY, [facility] s XL) tablet 00 :24 First [...] Rang e, Dosing and Testing: &nbs p;FOR [place], [facility], AND [facility] ONLY - aPTT < 35: & [...] reached.&n bsp; &nbs p; __ &n bsp;FOR [facility] ONLY - aPTT < 40: & [...] rate using programmab le infusion pump.&nbsp ; Nanetta ck with the ordering provider first prior to any administra tion should the patient be on existing/a dditional anticoagul ant therapy. Rang e, Dosing and Testing: &nbs p;FOR [place], [facility], AND [facility] ONLY - aPTT < 35: & [...] 53 Starting Medi jose tablet 1 on [facility] tablet 07/23/22 at 1031, Until Discontinu ed, Routine, Pain (scale 4-6) HYDROcodone 0 2021- No 1{tbl} 1 tablet, Univers -acetaminop 07-23 09-18 Oral, ity of hen (NORCO 15:31: 04:46 Q6HPRN, [place] as 5) 5-325 mg 53 :24 Starting Medi jose tablet 1 on Fri [place] tablet 07/23/22 at 1031, Until 07/27/22 at [...] [place] mg 00 First dose Medical on [facility] 07/22/22 at 0900, Until Discontinu ed, Routine montelukast Yes 10mg 10 mg, Univ ers (SINGULAIR) 07-22 Oral, ity of tablet 10 14:00: DAILY, [place] mg 00 First dose Medical on [facility] 07/22/22 at 0900, Until Discontinu ed, Routine spironolact 2021- No 25mg 25 mg, Uni vers one 07-22 Oral, ity of (ALDACTONE) 14:00: 04:46 DAILY, [place] tablet 25 00 :24 First dose Medi jose mg on [facility] 07/22/22 at 0900, Until Discontinu ed, Routine aspirin No 81mg 81 mg, Univers chewable 07-22 Oral, ity of tablet 81 14:00: 04:46 DAILY, [place] mg 00 :24 First dose Medical on [facility] 07/22/22 at 0900, Until Discontinu ed, Routine losartan 2021- No 25mg 25 mg, Univer s (COZAAR) 07-22 Oral, ity of tablet 25 14:00: 04:46 DAILY, [place] mg 00 :24 First dose Medical on [facility] 07/22/22 at 0900, Until Discontinu ed, Routine montelukast 2021- No 10mg 10 mg, Uni vers (SINGULAIR) 07-22 Oral, ity of tablet 10 14:00: 04:46 DAILY, [place] mg 00 :24 First dose Medical on [facility] 07/22/22 at 0900, Until Discontinu ed, Routine metoprolol 2021- No 50mg 50 mg, Univ ers tartrate 07-22 Oral, BID ity o f (LOPRESSOR) 13:00: 14:10 MEALS, [place] as tablet 50 00 :14 First dose Medi jose mg on [facility] 07/22/22 at 0800, Until Discontinu ed, Routine atorvastati Yes 40mg 40 mg, Univ ers n (LIPITOR) 07-22 Oral, QHS, it y of tablet 40 02:00: First dose [place] mg 00 on [facility] 07/21/22 at Branch 2100, Until Discontinu ed, Routine atorvastati 2021- No 40mg 40 mg, Uni vers n (LIPITOR) 07-22 Oral, QHS, i ty of tablet 40 02:00: 04:46 First dose [place] mg 00 :24 on [facility] 07/21/22 at Branch 2100, Until Discontinu ed, Routine morpHINE (2 2021- No 2mg 2 mg, Slow Univers mg/mL) 07-22 IV Push, ity of injection 2 01:29: 15:32 Q6HPRN, [place] mg 07 :09 Starting Medical on [facility] 07/21/22 at 2029, Until 07/23/22 at 1032, Routine, Chest pain furosemide 2021- No 20mg 20 mg, IV U nivers (LASIX) 07-22 Push, ity of injection 01:00: 05:27 Q12H, [place] 20 mg 00 :42 First dose Medical (after Branch last reorder) on [place] 07/21/22 at 2000, Until Discontinu ed, LORI enoxaparin 2021- No 1mg/kg 100 mg Un rita (LOVENOX) 07-22 (rounded ity o f injection 01:00: 05:30 [place] 98.5 [place] 100 mg 00 :31 mg = 1 Medical mg/kg Branch ?98.5 kg), Subcutaneo us, Q12H, First dose (after last modificati on) on [place] 07/21/22 at 2000, Until Discontinu ed, Routine sulfur 2021- No [id number] 5mL 5 mL, Unive rs hexafluorid 07-21 Intravenou i ty of e microsphr 15:45: 15:45 s, ONCE, 1 [place] (LUMASON) 00 :00 dose, On Medica l injection 5 Sun Branch mL 07/21/22 at 1045, Routine
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 dextrose 50 Yes 25mL 25 mL, Univ ers % in water 07-20 Slow IV ity of (D50W) 23:48: Push, PRN, [place] injection 16 Starting Medica l 25 mL on [facility] Branch 07/20/22 at 1848, Until Discontinu ed, LORI, Blood Glucose < or = 70 mg/dL and patient is unable to swallow or has mental status changes. glucagon 2021- No 1mg 1 mg, Univers (GLUCAGEN 07-2018 Intramuscu ity of DIAGNOSTIC 23:48: 04:46 lar, PRN, [place] KIT) 16 :24 Starting Medical injection 1 on [facility] Branch mg 07/20/22 at 1848, [...] status changes. metoprolol No 25mg 25 mg, [facility] ers tartrate 07-20 Oral, Q6H, ity of [...] 00 :00 dose, On Medica l mg [facility] Branch 07/20/22 at 1300, LORI furosemide 2021- No 20mg 20 mg, IV U nivers (LASIX) 07-20 Push, ity of injection 17:58: 18:02 ONCE, 1 [place] 20 mg 00 :00 dose, On Medical [facility] Branch 07/20/22 at 1300, LORI NaCl 0.9% 2021- No 500mL at 999 Univ ers (NS) bolus 07-20 mL/hr, 500 it y of infusion 17:00: 17:15 mL, IV [place] 500 mL 00 :00 Piggyback, Medical ONCE, 1 Branch dose, On [facility] 07/20/22 at 1200, STAT metoprolol 2021- No 5mg 5 mg, Slow Univers (LOPRESSOR) 07-20 IV Push, ity of injection 5 16:15: 16:16 ONCE, 1 [place] mg 00 :00 dose, On Medical [facility] Branch 07/20/22 at 1115, LORI Trelegy Trelegy 2019-0 2020- No Meghana 1 puff Com mon Ellipta Ellipta 2-12 06-11 [place] Spirit 00:00: 00:00 - CHI 00 :00 [facility] HydrOXYzine HydrOXYzine Yes Meghana 1 tablet Common HCl HCl 05-11 [place] as needed Spirit 00:00: - CHI 00 [facility] Ozempic Ozempic 2020- No Meghana 0.5 mg Com mon 05-11 0824 [place] Spirit 00:00: 00:00 - CHI 00 :00 [facility] Januvia Januvia Yes Meghana as Common 11-11 [place] directed Spirit 00:00: - CHI 00 [facility] ProAir ProAir Yes Meghana 2 puffs as Comm on RespiClick RespiClick [place] needed [facility] [place] 3 [place] 3 Yes Meghana 1 capsule Com mon [place] [facility] Montelukast Montelukast Yes Meghana 1 tablet Common Sodium Sodium [place] in the Spirit evening [facility] Lipitor Lipitor Yes Meghana 1 tablet Comm on [place] [facility] Losartan Losartan Yes Meghana 1 tablet Co mmon Potassium Potassium [place] Spir it [facility] Metoprolol Metoprolol Yes Meghana 1 tablet Common Tartrate Tartrate [place] with food S pirit [facility] Metformin Metformin Yes Meghana 1 tablet Common HCl HCl [place] with a [facility] meal [facility] Immunizations Ordered Immunization Filled Immunization Date Status Commen ts Source Name Name FLUZONE HIGH DOSE FLUZONE HIGH DOSE 2019-09-14 Completed [facility] OVER 65 OVER 65 00:00:00 [facility] Vital Signs Vital Name Observation Time Observation Value Comments Source Systolic blood 2022-07-28 01:43:00 99 mm[Hg] Univer sity [facility] Diastolic blood 2022-07-28 01:43:00 58 mm[Hg] [facility] 2022-07-28 01:40:00 97 /min [facility] Body temperature 2022-07-28 01:40:00 36.56 Melvi [facility] Respiratory rate 2022-07-28 01:40:00 18 /min [facility] Oxygen saturation in 2022-07-28 01:40:00 90 /min [facility] Arterial blood by [facility] Pulse oximetry Branch Body height 2022-07-26 17:49:00 172.7 cm Universi [facility] Body weight 2022-07-26 17:49:00 96.163 kg Universi [facility] BMI 2022-07-26 17:49:00 32.23 kg/m2 [facility] Systolic blood 2022-07-26 23:31:00 102 mm[Hg] Univer sity of pressure [facility] Diastolic blood 2022-07-26 23:31:00 59 mm[Hg] [facility] Heart rate 2022-07-26 23:31:00 85 /min [facility] Body temperature 2022-07-26 23:31:00 36.56 Melvi [facility] 2022-07-26 23:24:00 19 /min [facility] Oxygen saturation in 2022-07-26 23:24:00 93 /min [facility] Arterial blood by [facility] Pulse oximetry Branch Body height 2022-07-26 17:49:00 172.7 cm Universi [facility] Body weight 2022-07-26 17:49:00 96.163 kg [facility] BMI 2022-07-26 17:49:00 32.23 kg/m2 [facility] Procedures Procedure Date / Time Performing Clinician Source Performed POCT GLUCOSE (AUTOMATED) 2022-07-27 16:45:00 Berna Alcantar [facility] POCT GLUCOSE (AUTOMATED) 2022-07-27 16:45:00 Berna Alcantar [facility] MAGNESIUM 2022-07-27 10:46:00 Colt Foxssica [facility] BASIC METABOLIC PANEL (NA, 2022-07-27 10:46:00 Flora Fox [facility] K, CL, CO2, GLUCOSE, BUN, Medica l Branch CREATININE, CA) N-TERMINAL PRO-BNP 2022-07-27 10:46:00 Flora Fox [facility] MAGNESIUM 2022-07-27 10:46:00 Dominique [facility] Branch BASIC METABOLIC PANEL (NA, 2022-07-27 10:46:00 Flora Fox [facility] K, CL, CO2, GLUCOSE, BUN, Medica l Branch CREATININE, CA) N-TERMINAL PRO-BNP 2022-07-27 10:46:00 Dominique [facility] y of [facility] POCT GLUCOSE (AUTOMATED) 2022-07-27 10:38:00 Keo Alcantarm Uni versity of [facility] POCT GLUCOSE (AUTOMATED) 2022-07-27 10:38:00 KhKeo fernandezm Uni versity of [facility] POCT GLUCOSE (AUTOMATED) 2022-07-27 04:51:00 KhbettyfeKeom Uni versity of [facility] POCT GLUCOSE (AUTOMATED) 2022-07-27 04:51:00 Keo Alcantarm Uni versity of [facility] POCT GLUCOSE (AUTOMATED) 2022-07-27 01:10:00 KhalifeDavidsam Uni versity of [facility] POCT GLUCOSE (AUTOMATED) 2022-07-27 01:10:00 KhalifeDavidsam Uni versity of [facility] POCT GLUCOSE (AUTOMATED) 2022-07-26 23:37:00 David Alcantarsam Uni versity of [facility] POCT GLUCOSE (AUTOMATED) 2022-07-26 23:37:00 Berna Alcantar Uni versity of [facility] ACTIVATED PARTIAL THRMPLAS 2022-07-26 23:10:00 [facility] 2022-07-26 23:10:00 [facility] CARDIAC CATHETERIZATION 2022-07-26 21:16:04 [facility] CARDIAC CATHETERIZATION 2022-07-26 21:16:04 Katharine [facility] ersity of [facility] CARDIAC CATHETERIZATION 2022-07-26 21:16:04 Katharine [facility] ersity of [facility] CARDIAC CATHETERIZATION 2022-07-26 21:16:04 Katharine [facility] ersity of [facility] CARDIAC CATHETERIZATION 2022-07-26 21:16:04 Katharine [facility] ersity of [facility] CARDIAC CATHETERIZATION 2022-07-26 21:16:04 Katharine [facility] ersity of [facility] CARDIAC CATHETERIZATION 2022-07-26 21:16:04 Katharine [facility] ersity of [facility] CARDIAC CATHETERIZATION 2022-07-26 21:16:04 Katharine [facility] ersity of [facility] CATH PROCEDURE LOG 2022-07-26 20:55:04 Katharine [facility] of [facility] CATH PROCEDURE LOG 2022-07-26 20:55:04 Katharine [facility] of [facility] POCT GLUCOSE (AUTOMATED) 2022-07-26 16:20:00 Berna Alcantar Uni versity of [facility] POCT GLUCOSE (AUTOMATED) 2022-07-26 16:20:00 Berna Alcantar Uni versity of [facility] POCT GLUCOSE (AUTOMATED) 2022-07-26 12:30:00 Berna Alcantar Uni versity of [facility] POCT GLUCOSE (AUTOMATED) 2022-07-26 12:30:00 Berna Alcantar Uni versity of [facility] POCT GLUCOSE (AUTOMATED) 2022-07-26 11:08:00 Berna Alcantar Uni versity of [facility] POCT GLUCOSE (AUTOMATED) 2022-07-26 11:08:00 Berna Alcantar Uni versity of [facility] POCT GLUCOSE (AUTOMATED) 2022-07-26 08:52:00 Berna Alcantar Uni versity of [facility] POCT GLUCOSE (AUTOMATED) 2022-07-26 08:52:00 Berna Alcantar Uni versity of [facility] MAGNESIUM 2022-07-26 05:35:00 Tobias [facility] BASIC METABOLIC PANEL (NA, 2022-07-26 05:35:00 Tobias [facility] K, CL, CO2, GLUCOSE, BUN, Medica l Branch CREATININE, CA) ACTIVATED PARTIAL THRMPLAS 2022-07-26 05:35:00 Evelio Soni [facility] [place] EXTRA TUBE LAV 2022-07-26 05:35:00 Katharine [facility] o f [facility] MAGNESIUM 2022-07-26 05:35:00 Tobias [facility] BASIC METABOLIC PANEL (NA, 2022-07-26 05:35:00 Tobias [facility] K, CL, CO2, GLUCOSE, BUN, Medica l Branch CREATININE, CA) ACTIVATED PARTIAL THRMPLAS 2022-07-26 05:35:00 Evelio Soni [facility] [place] EXTRA TUBE LAV 2022-07-26 05:35:00 Katharine [facility] o [facility] POCT GLUCOSE (AUTOMATED) 2022-07-26 05:20:00 [facility] 2022-07-26 05:20:00 [facility] POCT GLUCOSE (AUTOMATED) 2022-07-26 01:45:00 [facility]) 2022-07-26 01:45:00 [facility] MAGN[facility]IUM 2022-07-25 22:15:00 Tobias [facility] BASIC METABOLIC PANEL (NA, 2022-07-25 22:15:00 Tobias [facility] K, CL, CO2, GLUCOSE, BUN, Medica l Branch CREATININE, CA) ACTIVATED PARTIAL THRMPLAS 2022-07-25 22:15:00 Evelio Soni [facility] MAGNESIUM 2022-07-25 22:15:00 Tobias [facility] BASIC METABOLIC PANEL (NA, 2022-07-25 22:15:00 Tobias [facility] K, CL, CO2, GLUCOSE, BUN, Medica l Branch CREATININE, CA) ACTIVATED PARTIAL THRMPLAS 2022-07-25 22:15:00 Evelio Soni niversalberto [facility] POCT GLUCOSE (AUTOMATED) 2022-07-25 21:22:00 Berna Alcantar [facility] POCT GLUCOSE (AUTOMATED) 2022-07-25 21:22:00 Berna Alcantar Uni versity of [facility] POCT GLUCOSE (AUTOMATED) 2022-07-25 20:46:00 Berna Alcantar Uni versity of [facility] POCT GLUCOSE (AUTOMATED) 2022-07-25 20:46:00 Berna Alcantar Uni versity of [facility] POCT GLUCOSE (AUTOMATED) 2022-07-25 17:09:00 Berna Alcantar Uni versity of [facility] POCT GLUCOSE (AUTOMATED) 2022-07-25 17:09:00 Berna Alcantar Uni versity of [facility] HB ECG ROUTINE & RHYTHM 2022-07-25 14:53:13 [facility]AS 2022-07-25 14:53:00 Evelio Soni niversalberto [facility] ACTIVATED PARTIAL THRMPLAS 2022-07-25 14:53:00 Evelio Soni niversalberto [facility] POCT GLUCOSE (AUTOMATED) 2022-07-25 13:12:00 Berna Alcantar Uni versity of [facility] POCT GLUCOSE (AUTOMATED) 2022-07-25 13:12:00 Berna Alcantar Uni versity of [facility] MAGNESIUM 2022-07-25 11:36:00 Tobias [facility] BASIC METABOLIC PANEL (NA, 2022-07-25 11:36:00 Tobias [facility] K, CL, CO2, GLUCOSE, BUN, Medica l Branch CREATININE, CA) CBC WITH DIFF 2022-07-25 11:36:00 Tobias [facility] MAGNESIUM 2022-07-25 11:36:00 Tobias [facility] BASIC METABOLIC PANEL (NA, 2022-07-25 11:36:00 Tobias [facility] K, CL, CO2, GLUCOSE, BUN, Medica l Branch CREATININE, CA) CBC WITH DIFF 2022-07-25 11:36:00 Tobias [facility] ACTIVATED PARTIAL THRMPLAS 2022-07-25 05:15:00 Evelio Soni [facility] ACTIVATED PARTIAL THRMPLAS 2022-07-25 05:15:00 [facility] POCT GLUCOSE (AUTOMATED) 2022-07-25 01:58:00 Berna Alcantar [facility] POCT GLUCOSE (AUTOMATED) 2022-07-25 01:58:00 Berna Alcantar [facility] MAGNESIUM 2022-07-24 22:34:00 Tobias [facility] BASIC METABOLIC PANEL (NA, 2022-07-24 22:34:00 Tobias [facility] K, CL, CO2, GLUCOSE, BUN, Medica l Branch CREATININE, CA) ACTIVATED PARTIAL THRMPLAS 2022-07-24 22:34:00 Evelio Soni [facility] MAGNESIUM 2022-07-24 22:34:00 Tobias [facility] BASIC METABOLIC PANEL (NA, 2022-07-24 22:34:00 Tobias [facility] K, CL, CO2, GLUCOSE, BUN, Medica l Branch CREATININE, CA) ACTIVATED PARTIAL THRMPLAS 2022-07-24 22:34:00 [facility] POCT GLUCOSE (AUTOMATED) 2022-07-24 20:43:00 Berna Alcantar [facility] POCT GLUCOSE (AUTOMATED) 2022-07-24 20:43:00 Berna Alcantar Uni versity of [facility] POCT GLUCOSE (AUTOMATED) 2022-07-24 17:11:00 Berna Alcantar Uni vers[facility] POCT GLUCOSE (AUTOMATED) 2022-07-24 17:11:00 Berna Alcantar Uni vers[facility] POCT GLUCOSE (AUTOMATED) 2022-07-24 14:11:00 Berna Alcantar Uni vers[facility] POCT GLUCOSE (AUTOMATED) 2022-07-24 14:11:00 AvinashbettyBerna rodriguez Uni versity [facility] ACTIVATED PARTIAL THRMPLAS 2022-07-24 11:37:00 Evelio Soni [facility] ACTIVATED PARTIAL THRMPLAS 2022-07-24 11:37:00 Evelio Soni [facility] [place] MAGNESIUM 2022-07-24 05:51:00 Evelio Soni [facility] BASIC METABOLIC PANEL (NA, 2022-07-24 05:51:00 Evelio Soni [facility] K, CL, CO2, GLUCOSE, BUN, Medica l Branch CREATININE, CA) PROTHROMBIN TIME / INR 2022-07-24 05:51:00 Evelio Soni [facility] ACTIVATED PARTIAL THRMPLAS 2022-07-24 05:51:00 Evelio Soni [facility] [place] MAGNESIUM 2022-07-24 05:51:00 Evelio Soni [facility] BASIC METABOLIC PANEL (NA, 2022-07-24 05:51:00 Evelio Soni [facility] K, CL, CO2, GLUCOSE, BUN, Medica l Branch CREATININE, CA) PROTHROMBIN TIME / INR 2022-07-24 05:51:00 Evelio Soni [facility] ACTIVATED PARTIAL THRMPLAS 2022-07-24 05:51:00 Evelio Soni [facility] POCT GLUCOSE (AUTOMATED) 2022-07-24 01:53:00 [facility]) 2022-07-24 01:53:00 [facility] (AUTOMATED) 2022-07-23 21:31:00 [facility] (AUTOMATED) 2022-07-23 21:31:00 [facility] PO[facility]SE (AUTOMATED) 2022-07-23 17:08:00 [facility] PO[facility]SE (AUTOMATED) 2022-07-23 17:08:00 Atul Stephens Rafaela [facility] POCT GLUCOSE (AUTOMATED) 2022-07-23 12:46:00 Atul Stephens Rafaela [facility] POCT GLUCOSE (AUTOMATED) 2022-07-23 12:46:00 Atul Stephens Rafaela [facility] MAGNESIUM 2022-07-23 09:15:00 [facility]OLIC PANEL (NA, 2022-07-23 09:15:00 George Vizcaino [facility] K, CL, CO2, GLUCOSE, BUN, Medica l Branch CREATININE, CA) CBC WITH DIFF 2022-07-23 09:15:00 [facility] N-[facility]MINAL PRO-BNP 2022-07-23 09:15:00 George Vizcaino [facility] MAGNESIUM 2022-07-23 09:15:00 [facility] BASIC METABOLIC PANEL (NA, 2022-07-23 09:15:00 [facility], [facility], CO2, GLUCOSE, BUN, Medica l Branch CREATININE, CA) CBC WITH DIFF 2022-07-23 09:15:00 [facility] N-TERMINAL PRO-BNP 2022-07-23 09:15:00 George Vizcaino [facility] POCT GLUCOSE (AUTOMATED) 2022-07-23 02:12:00 Atul Stephens [facility] POCT GLUCOSE (AUTOMATED) 2022-07-23 02:12:00 Atul Stephens [facility] POCT GLUCOSE (AUTOMATED) 2022-07-22 21:12:00 Atul Stephens [facility] POCT GLUCOSE (AUTOMATED) 2022-07-22 21:12:00 Atul Stephens [facility] POCT GLUCOSE (AUTOMATED) 2022-07-22 16:30:00 Atul Stephens [facility] POCT GLUCOSE (AUTOMATED) 2022-07-22 16:30:00 Atul Stephens [facility] POCT GLUCOSE (AUTOMATED) 2022-07-22 12:51:00 Atul Stephens [facility] POCT GLUCOSE (AUTOMATED) 2022-07-22 12:51:00 Atul Stephens [facility] PHOSPHORUS 2022-07-22 08:19:00 Atul Stephens [facility] MAGNESIUM 2022-07-22 08:19:00 [facility] HEPATIC FUNCTION PANEL 2022-07-22 08:19:00 Atul Stephens [facility] ([id number]) (ALB,T.PRO,BILI Medical Branch T,BU/BC,ALT,AST,ALK PHOS) BASIC METABOLIC PANEL (NA, 2022-07-22 08:19:00 Atul Stephens [facility] K, CL, CO2, GLUCOSE, BUN, Medica l Branch CREATININE, CA) CBC WITH DIFF 2022-07-22 08:19:00 [facility] N-TERMINAL PRO-BNP 2022-07-22 08:19:00 Atul Stephens [facility] PHOSPHORUS 2022-07-22 08:19:00 Atul Stephens [facility] MAGNESIUM 2022-07-22 08:19:00 Atul Stephens [facility] HEPATIC FUNCTION PANEL 2022-07-22 08:19:00 Atul Stephens [facility] ([id number]) (ALB,T.PRO,BILI Medical Branch T,BU/BC,ALT,AST,ALK PHOS) BASIC METABOLIC PANEL (NA, 2022-07-22 08:19:00 Atul Stephens [facility] K, CL, CO2, GLUCOSE, BUN, Medica l Branch CREATININE, CA) CBC WITH DIFF 2022-07-22 08:19:00 Atul Stephens o f [facility] N-TERMINAL PRO-BNP 2022-07-22 08:19:00 [facility]) 2022-07-22 01:44:00 Atul Stephens [facility] POCT GLUCOSE (AUTOMATED) 2022-07-22 01:44:00 Atul Stephens [facility] POCT GLUCOSE (AUTOMATED) 2022-07-21 21:52:00 Atul Stephens [facility] POCT GLUCOSE (AUTOMATED) 2022-07-21 21:52:00 Atul Stephens [facility] POCT GLUCOSE (AUTOMATED) 2022-07-21 16:43:00 Atul Stephens [facility] POCT GLUCOSE (AUTOMATED) 2022-07-21 16:43:00 Atul Stephens [facility] TRANSTHORACIC ECHO (TTE) 2022-07-21 15:28:00 Atul Stephens [facility] COMPLETE W/ CONTRAST Medical [facility] TRANSTHORACIC ECHO (TTE) 2022-07-21 15:28:00 Atul Stephens [facility] COMPLETE W/ CONTRAST Medical [facility] POCT GLUCOSE (AUTOMATED) 2022-07-21 15:00:00 Atul Stephens [facility] POCT GLUCOSE (AUTOMATED) 2022-07-21 15:00:00 Atul Stephens [facility] POCT GLUCOSE (AUTOMATED) 2022-07-21 13:04:00 Atul Stephens [facility] POCT GLUCOSE (AUTOMATED) 2022-07-21 13:04:00 Atul Stephens [facility] MAGNESIUM 2022-07-21 09:41:00 Atul Stephens [facility] TROPONIN I 2022-07-21 09:41:00 Atul Stephens [facility] BASIC METABOLIC PANEL (NA, 2022-07-21 09:41:00 [facility], CL, CO2, GLUCOSE, BUN, Medica l Branch CREATININE, CA) LIPID PANEL ([id number])(TOTAL 2022-07-21 09:41:00 Desmond Ana [facility] CHOLE[facility], [facility] TRIGLYCERIDES, HDL) CBC WITH DIFF 2022-07-21 09:41:00 Angelo [facility] N-TERMINAL PRO-BNP 2022-07-21 09:41:00 Atul Stephens [facility] MAGNESIUM 2022-07-21 09:41:00 Atul Stephens [facility] TROPONIN I 2022-07-21 09:41:00 Atul Stephens [facility] BASIC METABOLIC PANEL (NA, 2022-07-21 09:41:00 Atul Stephens [facility] [place] K, CL, CO2, GLUCOSE, BUN, Medica l Branch CREATININE, CA) LIPID PANEL (69551)(TOTAL 2022-07-21 09:41:00 Ana Luisa Grimm [facility] CHOLESTEROL, Medical Branch TRIGLYCERIDES, HDL) CBC WITH DIFF 2022-07-21 09:41:00 Atul Stephens [facility] N-TERMINAL PRO-BNP 2022-07-21 09:41:00 Atul Stephens [facility] POCT GLUCOSE (AUTOMATED) 2022-07-21 04:09:00 Atul Stephens [facility] POCT GLUCOSE (AUTOMATED) 2022-07-21 04:09:00 Atul Stephens [facility] BLOOD CULTURE SCREEN 2022-07-21 01:45:00 Atul Stephens [facility] BLOOD CULTURE WORKUP 2022-07-21 01:45:00 Atul Stephens [facility] GRAM POSITIVE BLOOD 2022-07-21 01:45:00 Atul Stephens [facility] PATHOGENS DNA [facility] PROBE-AEROBIC BLOOD CULTURE SCREEN 2022-07-21 01:45:00 Atul Stephens [facility] BLOOD CULTURE WORKUP 2022-07-21 01:45:00 Atul Stephens [facility] GRAM POSITIVE BLOOD 2022-07-21 01:45:00 Atul Stephens [facility] PATHOGENS DNA [facility] PROBE-AEROBIC POCT GLUCOSE (AUTOMATED) 2022-07-21 01:26:00 Atul Stephens [facility] POCT GLUCOSE (AUTOMATED) 2022-07-21 01:26:00 Atul Stephens [facility] BLOOD CULTURE SCREEN 2022-07-20 23:43:00 Atul Stephens [facility] BLOOD CULTURE SCREEN 2022-07-20 23:43:00 Atul Stephens [facility] POCT GLUCOSE (AUTOMATED) 2022-07-20 22:24:00 Atul Stephens [facility] POCT GLUCOSE (AUTOMATED) 2022-07-20 22:24:00 Atul Stephens [facility] URINALYSIS 2022-07-20 17:41:00 Charlene Butt [facility] URINALYSIS 2022-07-20 17:41:00 Charlene Butt [facility] XR CHEST 1 VW 2022-07-20 16:16:00 Filomena [facility] XR CHEST 1 VW 2022-07-20 16:16:00 Filomena [facility] TROPONIN I 2022-07-20 16:10:00 Filomena [facility] COMP. METABOLIC PANEL 2022-07-20 16:10:00 Charlene Butt [facility] ([id number]) [facility] CBC WITH DIFF 2022-07-20 16:10:00 Filomena [facility] GLYCOSYLATED HEMOGLOBIN 2022-07-20 16:10:00 Atul Stephens [facility] (A1C) Medical Branch PROTHROMBIN TIME / INR 2022-07-20 16:10:00 Charlene Butt [facility] ACTIVATED PARTIAL THRMPLAS 2022-07-20 16:10:00 Saniya Butt [facility] N-TERMINAL PRO-BNP 2022-07-20 16:10:00 Charlene Butt [facility] COVID-19 (ID NOW RAPID 2022-07-20 16:10:00 Charlene Butt [facility] TESTING) Medical Branch LAB ONLY COVID 2022-07-20 16:10:00 Charlene Butt [facility] TROPONIN I 2022-07-20 16:10:00 Charlene Butt [facility] COMP. METABOLIC PANEL 2022-07-20 16:10:00 Charlene Butt [facility] ([id number]) Medical Branch CBC WITH DIFF 2022-07-20 16:10:00 Charlene Butt [facility] GLYCOSYLATED HEMOGLOBIN 2022-07-20 16:10:00 Atul Stephens [facility] (A1C) Medical Branch PROTHROMBIN TIME / INR 2022-07-20 16:10:00 Charlene Butt [facility] ACTIVATED PARTIAL THRMPLAS 2022-07-20 16:10:00 Saniya Butt [facility] N-TERMINAL PRO-BNP 2022-07-20 16:10:00 Charlene Butt [facility] COVID-19 (ID NOW RAPID 2022-07-20 16:10:00 Charlene Butt [facility] TESTING) Medical Branch LAB ONLY COVID 2022-07-20 16:10:00 Charlene Butt [facility] HB ECG ROUTINE & RHYTHM 2022-07-20 16:05:41 Charlene Butt [facility] STRIP [facility] Branch HB ECG ROUTINE & RHYTHM 2022-07-20 16:05:41 Charlene Butt [facility] NOTICE OF PRIVACY 2022-07-20 15:52:39 Doctor Unassigned, [facility] NOTICE OF PRIVACY 2022-07-20 15:52:39 Doctor Unassigned, [facility] ADMISSION 2022-07-20 05:01:00 [facility] AD[facility] 2022-07-20 05:01:00 Doctor Unassigned, [facility] Encounters Start End Encounter Admission Attending Care Care Encounter Source Date/Time Date/Time Type Type Clinicians Facility Department ID 2022-09-03 Outpatient 3 [id number] [place] [id number] [facility] 08:24:57 [facility] [place] [facility] 2022-09-02 Outpatient 3 [id number] [facility] REF [id number] [facility] 14:07:05 [facility] [place] 2021-12-[address] [facility] [id number] Common 11:06:38 Meghana [address] [facility] 2022-08-15 2022-08-28 Inpatient 3 Julio ENCPL CRD [id number] [facility] 18:17:00 12:00:00 Jose [facility] [place] 2022-07-29 2022-07-29 Transition ARIANE FosterKhadar [id number] Univers 00:00:00 00:00:00 of Care [place] [id number] [place] [id number] [facility] 403 Branch 2022-07-20 2022-07-27 Hospital Charlene Btut 1.2.84 0.114 [id number] Univers 11:00:00 21:45:00 Encounter Atul Stephens [id number] ity of [facility] 4.2.7.2 .686 [place] [id number] [facility] 089 Branch 2022-07-20 2022-07-27 Inpatient X [facility] [id number] Univers 11:00:00 21:45:00 BERNA ity [facility] 2022-07-26 2022-07-26 Surgery JAMAL Cannon [id number] Univers 18:03:00 21:03:00 Orlando GORDON [id number] it y [facility] 4.2.7.2.686 [facility] [id number] [facility] 840 Branch 2020-04-04 2020-04-04 [facility] [id number] Common 13:00:00 13:00:[address] [facility] 2020-03-22 2020-03-22 Out[facility] [id number] Common 15:20:00 15:20:[address] [facility] 2019-12-22 2019-12-22 [facility] [id number] Common 10:40:00 10:40:[address] [facility] 2019-12-15 2019-12-15 Out[facility] [id number] Common 14:00:00 14:00:[address] [facility] 2019-09-14 2019-09-14 [facility] [id number] Common 13:20:00 13:20:[address] [facility] 2019-05-11 2019-05-11 [facility] [id number] Common 13:00:00 13:00:[address] [facility] 2018-11-11 2018-11-11 [facility] [id number] Common 13:00:00 13:00:[address] [facility] 2018-10-19 2018-10-19 [facility] [id number] Common 08:30:00 08:30:[address] [facility] 2018-04-22 2018-04-22 Outpatient Lynsey Velez 13 [id number] Common 14:00:00 14:00:[address] [facility] Results Test Description Test Time [...] Interpretation Comments POCT GLU (test code = 2887765428) 264 mg/dL 70-110 H Lab Interpretation (test code = Abnormal 04491-7) [facility] 17:05:15 Test Item Value Reference Range Interpretation Comments POCT GLU (test code = 3236373431) 264 mg/dL 70-110 H Lab Interpretation (test code = Abnormal 17130-3) [facility] [id number] 15:17:32 Test Item Value Reference Range Interpretation Comments NT-proBNP (test code 1090 pg/mL See_Comment H [Autom ated = 0466112390) message] The system which generated this result transmitted reference range : <=125. The reference range was not used to interpret this result as normal/abnormal . ROSLYN (test code = ROSLYN) Biotin has been reported to cause a negative bias, interpret results relative to patient's use of biotin. Lab Interpretation Abnormal (test code = 44577-0) [facility] [id number] 15:17:32 Test Item Value Reference Range Interpretation Comments NT-proBNP (test code 1090 pg/mL See_Comment H [Autom ated = 1924776762) message] The system which generated this result transmitted reference range : <=125. The reference range was not used to interpret this result as normal/abnormal . ROSLYN (test code = ROSLYN) Biotin has been reported to cause a negative bias, interpret results relative to patient's use of biotin. Lab Interpretation Abnormal (test code = 73886-3) [facility] 11:45:45 Test Item Value Reference Range Interpretation Comments MAGNESIUM (test code = 8938288506) 1.9 mg/dL 1.7-2.4 Lab Interpretation (test code = Normal 39911-7) [facility] (NA, K, CL, CO2, GLUCOSE, BUN, CREATININE, CA)2022-07-27 11:45:45 Test Item Value Reference Range Interpretation Comments NA (test code = 130 mmol/L 135-145 L 7568144131) K (test code = 4.1 mmol/L 3.5-5 6456206092) CL (test code = 89 mmol/L 98-108 L 6991060725) CO2 TOTAL (test code = 37 mmol/L 23-31 H 4749862479) AGAP (test code = 2-16 9923902085) BUN (test code = 32 mg/dL 7-23 H 7733047454) GLUCOSE (test code = 180 mg/dL 70-110 H 5753878224) CREATININE (test code = 0.81 mg/dL 0.6-1.25 9493429094) CALCIUM (test code = 8.5 mg/dL 8.6-10.6 L 6767776683) eGFR (test code = mL/min/1.73m2 0406567210) ROSLYN (test code = ROSLYN) Association of [...] tests). Lab Interpretation Abnormal (test code = 62205-6) [facility]17 11:45:45 Test Item Value Reference Range Interpretation Comments MAGNESIUM (test code = 3292127795) 1.9 mg/dL 1.7-2.4 Lab Interpretation (test code = Normal 17170-3) [facility] (NA, K, CL, CO2, GLUCOSE, BUN, CREATININE, CA)2022-07-27 11:45:45 Test Item Value Reference Range Interpretation Comments NA (test code = 130 mmol/L 135-145 L 2238739394) K (test code = 4.1 mmol/L 3.5-5 3776085746) CL (test code = 89 mmol/L 98-108 L 5966615702) CO2 TOTAL (test code = 37 mmol/L 23-31 H 7403459384) AGAP (test code = 2-16 9442301877) BUN (test code = 32 mg/dL 7-23 H 8177511988) GLUCOSE (test code = 180 mg/dL 70-110 H 1141702256) CREATININE (test code = 0.81 mg/dL 0.6-1.25 8471940452) CALCIUM (test code = 8.5 mg/dL 8.6-10.6 L 8396453934) eGFR (test code = mL/min/1.73m2 9466906116) ROSLYN (test code = ROSLYN) Association of [...] tests). Lab Interpretation Abnormal (test code = 74451-2) [facility] GLUCOSE (AUTOMATED)2022-07-27 10:39:46 Test Item Value Reference Range Interpretation Comments POCT GLU (test code = 1951049133) 198 mg/dL 70-110 H Lab Interpretation (test code = Abnormal 03353-0) [facility] GLUCOSE (AUTOMATED)2022-07-27 10:39:46 Test Item Value Reference Range Interpretation Comments POCT GLU (test code = 2578853070) 198 mg/dL 70-110 H Lab Interpretation (test code = Abnormal 73716-4) [facility] GLUCOSE (AUTOMATED)2022-07-27 04:52:50 Test Item Value Reference Range Interpretation Comments POCT GLU (test code = 1577792730) 213 mg/dL 70-110 H Lab Interpretation (test code = Abnormal 15715-4) [facility] GLUCOSE (AUTOMATED)2022-07-27 04:52:50 Test Item Value Reference Range Interpretation Comments POCT GLU (test code = 9179856592) 213 mg/dL 70-110 H Lab Interpretation (test code = Abnormal 77879-5) [facility] GLUCOSE (AUTOMATED)2022-07-27 01:10:58 Test Item Value Reference Range Interpretation Comments POCT GLU (test code = 5293695780) 284 mg/dL 70-110 H Lab Interpretation (test code = Abnormal 56558-7) [facility] GLUCOSE (AUTOMATED)2022-07-27 01:10:58 Test Item Value Reference Range Interpretation Comments POCT GLU (test code = 4160688115) 284 mg/dL 70-110 H Lab Interpretation (test code = Abnormal 56833-8) [facility] GLUCOSE (AUTOMATED)2022-07-26 23:39:10 Test Item Value Reference Range Interpretation Comments POCT GLU (test code = 7838129047) 199 mg/dL 70-110 H Lab Interpretation (test code = Abnormal 60434-5) [facility] GLUCOSE (AUTOMATED)2022-07-26 23:39:10 Test Item Value Reference Range Interpretation Comments POCT GLU (test code = 3690898003) 199 mg/dL 70-110 H Lab Interpretation (test code = Abnormal 13192-1) [facility] ([facility] use with [facility] In[facility])2022-07-26 23:32:33 Test Item Value Reference Range Interpretation Comments APTT Patient (test code = See_Comment [ Automated message] 3173-2) The system [employer] generated this result transmitted ref erence range: 26 - 36 Seconds. The re ference range was not u sed to interpret this result as normal/abnor mal. Lab Interpretation (test Normal code = 07544-3) [facility]26 23:32:33 Test Item Value Reference Range Interpretation Comments APTT Patient (test code = See_Comment [ Automated message] 3173-2) The system [employer] generated this result transmitted ref erence range: 26 - 36 Seconds. The re ference range was not u sed to interpret this result as normal/abnor mal. Lab Interpretation (test Normal code = 26121-5) [facility] [facility] 16:22:25 Test Item Value Reference Range Interpretation Comments POCT GLU (test code = 7096536677) 167 mg/dL 70-110 H Lab Interpretation (test code = Abnormal 62308-9) [facility] GLUCOSE (AUTOMATED)2022-07-26 16:22:25 Test Item Value Reference Range Interpretation Comments POCT GLU (test code = 1088272267) 167 mg/dL 70-110 H Lab Interpretation (test code = Abnormal 30451-2) [facility] GLUCOSE (AUTOMATED)2022-07-26 12:31:04 Test Item Value Reference Range Interpretation Comments POCT GLU (test code = 1298261282) 164 mg/dL 70-110 H Lab Interpretation (test code = Abnormal 25252-2) [facility] GLUCOSE (AUTOMATED)2022-07-26 12:31:04 Test Item Value Reference Range Interpretation Comments POCT GLU (test code = 3037288613) 164 mg/dL 70-110 H Lab Interpretation (test code = Abnormal 51747-5) [facility] GLUCOSE (AUTOMATED)2022-07-26 11:09:37 Test Item Value Reference Range Interpretation Comments POCT GLU (test code = 6159048460) 184 mg/dL 70-110 H Lab Interpretation (test code = Abnormal 60119-2) [facility] GLUCOSE (AUTOMATED)2022-07-26 11:09:37 Test Item Value Reference Range Interpretation Comments POCT GLU (test code = 4435954481) 184 mg/dL 70-110 H Lab Interpretation (test code = Abnormal 00181-6) [facility] GLUCOSE (AUTOMATED)2022-07-26 08:53:59 Test Item Value Reference Range Interpretation Comments POCT GLU (test code = 1179410210) 200 mg/dL 70-110 H Lab Interpretation (test code = Abnormal 98461-8) [facility] GLUCOSE (AUTOMATED)2022-07-26 08:53:59 Test Item Value Reference Range Interpretation Comments POCT GLU (test code = 5642322739) 200 mg/dL 70-110 H Lab Interpretation (test code = Abnormal 67586-4) [facility] GLUCOSE (AUTOMATED)2022-07-26 05:20:56 Test Item Value Reference Range Interpretation Comments POCT GLU (test code = 5531603544) 197 mg/dL 70-110 H Lab Interpretation (test code = Abnormal 57005-3) [facility] GLUCOSE (AUTOMATED)2022-07-26 05:20:56 Test Item Value Reference Range Interpretation Comments POCT GLU (test code = 7417398554) 197 mg/dL 70-110 H Lab Interpretation (test code = Abnormal 32600-4) [facility] CULTURE [id number] 03:01:42 Test Item Value Reference Range Interpretation Comments Blood Culture-Aerobic No organisms No growth Previo us (test code = 96097-7) isolated prelim inary verified result was Culture [...] Culture-Anaerobic isolated preliminar y (test code = 00059-7) verifi ed result was Culture In Progress [...] CDT Lab Interpretation Normal (test code = 19580-9) [facility] CULTURE [id number] 03:01:42 Test Item Value Reference Range Interpretation Comments Blood Culture-Aerobic No organisms No growth Previo us (test code = 62652-4) isolated prelim inary verified result was Culture [...] Culture-Anaerobic isolated preliminar y (test code = 08640-1) verifi ed result was Culture In Progress [...] CDT Lab Interpretation Normal (test code = 35211-2) [facility] GLUCOSE (AUTOMATED)2022-07-26 01:46:28 Test Item Value Reference Range Interpretation Comments POCT GLU (test code = 7452354408) 142 mg/dL 70-110 H Lab Interpretation (test code = Abnormal 09665-6) [facility] GLUCOSE (AUTOMATED)2022-07-26 01:46:28 Test Item Value Reference Range Interpretation Comments POCT GLU (test code = 6685426530) 142 mg/dL 70-110 H Lab Interpretation (test code = Abnormal 26462-7) [facility] GLUCOSE (AUTOMATED)2022-07-25 21:23:27 Test Item Value Reference Range Interpretation Comments POCT GLU (test code = 9748153297) 159 mg/dL 70-110 H Lab Interpretation (test code = Abnormal 36584-7) [facility] GLUCOSE (AUTOMATED)2022-07-25 21:23:27 Test Item Value Reference Range Interpretation Comments POCT GLU (test code = 3588805830) 159 mg/dL 70-110 H Lab Interpretation (test code = Abnormal 10370-4) [facility] GLUCOSE (AUTOMATED)2022-07-25 20:47:32 Test Item Value Reference Range Interpretation Comments POCT GLU (test code = 4899302709) 151 mg/dL 70-110 H Lab Interpretation (test code = Abnormal 26337-0) [facility] GLUCOSE (AUTOMATED)2022-07-25 20:47:32 Test Item Value Reference Range Interpretation Comments POCT GLU (test code = 1671607928) 151 mg/dL 70-110 H Lab Interpretation (test code = Abnormal 40940-4) [facility] GLUCOSE (AUTOMATED)2022-07-25 17:16:01 Test Item Value Reference Range Interpretation Comments POCT GLU (test code = 9024369377) 389 mg/dL 70-110 H Lab Interpretation (test code = Abnormal 19864-0) [facility] GLUCOSE (AUTOMATED)2022-07-25 17:16:01 Test Item Value Reference Range Interpretation Comments POCT GLU (test code = 8936290340) 389 mg/dL 70-110 H Lab Interpretation (test code = Abnormal 58485-0) [facility] 15:08:51 Test Item Value Reference Range Interpretation Comments APTT Patient (test code = See_Comment [ Automated message] 3173-2) The system [employer] generated this result transmitted ref erence range: 26 - 36 Seconds. The re ference range was not u sed to interpret this result as normal/abnor mal. Lab Interpretation (test Normal code = 59060-8) [facility] (for use with Heparin Infusion)2022-07-25 15:08:51 Test Item Value Reference Range Interpretation Comments APTT Patient (test code = See_Comment [ Automated message] 3173-2) The system [employer] generated this result transmitted ref erence range: 26 - 36 Seconds. The re ference range was not u sed to interpret this result as normal/abnor mal. Lab Interpretation (test Normal code = 03658-7) [facility] GLUCOSE (AUTOMATED)2022-07-25 13:22:34 Test Item Value Reference Range Interpretation Comments POCT GLU (test code = 1092745847) 168 mg/dL 70-110 H Lab Interpretation (test code = Abnormal 93913-7) [facility] GLUCOSE (AUTOMATED)2022-07-25 13:22:34 Test Item Value Reference Range Interpretation Comments POCT GLU (test code = 5783051018) 168 mg/dL 70-110 H Lab Interpretation (test code = Abnormal 26584-8) [facility] GLUCOSE (AUTOMATED)2022-07-25 01:59:34 Test Item Value Reference Range Interpretation Comments POCT GLU (test code = 1066418326) 202 mg/dL 70-110 H Lab Interpretation (test code = Abnormal 91562-8) [facility] GLUCOSE (AUTOMATED)2022-07-25 01:59:34 Test Item Value Reference Range Interpretation Comments POCT GLU (test code = 4194177086) 202 mg/dL 70-110 H Lab Interpretation (test code = Abnormal 66990-2) [facility] METABOLIC PANEL (NA, K, CL, CO2, GLUCOSE, BUN, CREATININE, CA)2022-07-24 23:06:12 Test Item Value Reference Range Interpretation Comments NA (test code = 135 mmol/L 135-145 8702239367) K (test code = 4.1 mmol/L 3.5-5 2493619659) CL (test code = 95 mmol/L 98-108 L 2874220722) CO2 TOTAL (test code = 39 mmol/L 23-31 H 4910762599) AGAP (test code = 2-16 L 1209561938) BUN (test code = 16 mg/dL 7-23 1729989382) GLUCOSE (test code = 140 mg/dL 70-110 H 7826288203) CREATININE (test code = 0.59 mg/dL 0.6-1.25 L 9490265240) CALCIUM (test code = 8.4 mg/dL 8.6-10.6 L 9110835586) eGFR (test code = mL/min/1.73m2 8560206201) ROSLYN (test code = ROSLYN) Association of [...] tests). Lab Interpretation Abnormal (test code = 24746-1) [facility]12 Test Item Value Reference Range Interpretation Comments MAGNESIUM (test code = 3913513364) 2.1 mg/dL 1.7-2.4 Lab Interpretation (test code = Normal 47630-1) [facility] (NA, K, CL, CO2, GLUCOSE, BUN, CREATININE, CA)2022-07-24 23:06:12 Test Item Value Reference Range Interpretation Comments NA (test code = 135 mmol/L 135-145 2568285219) K (test code = 4.1 mmol/L 3.5-5 6786726521) CL (test code = 95 mmol/L 98-108 L 4715387928) CO2 TOTAL (test code = 39 mmol/L 23-31 H 2919222120) AGAP (test code = 2-16 L 8703796450) BUN (test code = 16 mg/dL 7-23 9423897883) GLUCOSE (test code = 140 mg/dL 70-110 H 5078742473) CREATININE (test code = 0.59 mg/dL 0.6-1.25 L 4882620731) CALCIUM (test code = 8.4 mg/dL 8.6-10.6 L 3217074401) eGFR (test code = mL/min/1.73m2 2199315070) ROSLYN (test code = ROSLYN) Association of [...] tests). Lab Interpretation Abnormal (test code = 71539-3) [facility]06:12 Test Item Value Reference Range Interpretation Comments MAGNESIUM (test code = 2510857482) 2.1 mg/dL 1.7-2.4 Lab Interpretation (test code = Normal 29478-9) [facility]22-07-24 23:00:29 Test Item Value Reference Range Interpretation Comments APTT Patient (test code See_Comment H [Au tomated message] = 3173-2) The system [employer] generated this result transmitted ref erence range: 26 - 36 Seconds. The reference range was not used to int erpret this result as normal/abnormal . Lab Interpretation (test Abnormal code = 92095-8) [facility]2022-07-24 23:00:29 Test Item Value Reference Range Interpretation Comments APTT Patient (test code See_Comment H [Au tomated message] = 3173-2) The system [employer] generated this result transmitted ref erence range: 26 - 36 Seconds. The reference range was not used to int erpret this result as normal/abnormal . Lab Interpretation (test Abnormal code = 73959-0) [facility] GLUCOSE (AUTOMATED)2022-07-24 20:44:06 Test Item Value Reference Range Interpretation Comments POCT GLU (test code = 8577163934) 161 mg/dL 70-110 H Lab Interpretation (test code = Abnormal 89142-9) [facility] GLUCOSE (AUTOMATED)2022-07-24 20:44:06 Test Item Value Reference Range Interpretation Comments POCT GLU (test code = 9959838172) 161 mg/dL 70-110 H Lab Interpretation (test code = Abnormal 30912-0) [facility] GLUCOSE (AUTOMATED)2022-07-24 17:17:45 Test Item Value Reference Range Interpretation Comments POCT GLU (test code = 3168701616) 257 mg/dL 70-110 H Lab Interpretation (test code = Abnormal 99464-0) [facility] GLUCOSE (AUTOMATED)2022-07-24 17:17:45 Test Item Value Reference Range Interpretation Comments POCT GLU (test code = 0798284918) 257 mg/dL 70-110 H Lab Interpretation (test code = Abnormal 51902-6) [facility] GLUCOSE (AUTOMATED)2022-07-24 14:12:13 Test Item Value Reference Range Interpretation Comments POCT GLU (test code = 8108400536) 201 mg/dL 70-110 H Lab Interpretation (test code = Abnormal 96543-5) [facility] GLUCOSE (AUTOMATED)2022-07-24 14:12:13 Test Item Value Reference Range Interpretation Comments POCT GLU (test code = 6458322823) 201 mg/dL 70-110 H Lab Interpretation (test code = Abnormal 30108-0) [facility] GLUCOSE (AUTOMATED)2022-07-24 01:57:51 Test Item Value Reference Range Interpretation Comments POCT GLU (test code = 6210118029) 214 mg/dL 70-110 H Lab Interpretation (test code = Abnormal 62413-5) [facility] GLUCOSE (AUTOMATED)2022-07-24 01:57:51 Test Item Value Reference Range Interpretation Comments POCT GLU (test code = 6039965338) 214 mg/dL 70-110 H Lab Interpretation (test code = Abnormal 67580-9) [facility] GLUCOSE (AUTOMATED)2022-07-23 21:55:56 Test Item Value Reference Range Interpretation Comments POCT GLU (test code = 9390349139) 184 mg/dL 70-110 H Lab Interpretation (test code = Abnormal 62897-0) [facility] GLUCOSE (AUTOMATED)2022-07-23 21:55:56 Test Item Value Reference Range Interpretation Comments POCT GLU (test code = 2793856087) 184 mg/dL 70-110 H Lab Interpretation (test code = Abnormal 10830-0) [facility] GLUCOSE (AUTOMATED)2022-07-23 17:27:48 Test Item Value Reference Range Interpretation Comments POCT GLU (test code = 1013726192) 259 mg/dL 70-110 H Lab Interpretation (test code = Abnormal 15131-3) [facility] GLUCOSE (AUTOMATED)2022-07-23 17:27:48 Test Item Value Reference Range Interpretation Comments POCT GLU (test code = 9398081838) 259 mg/dL 70-110 H Lab Interpretation (test code = Abnormal 57367-8) [facility] GLUCOSE (AUTOMATED)2022-07-23 13:05:59 Test Item Value Reference Range Interpretation Comments POCT GLU (test code = 3412903640) 154 mg/dL 70-110 H Lab Interpretation (test code = Abnormal 93017-3) [facility] GLUCOSE (AUTOMATED)2022-07-23 13:05:59 Test Item Value Reference Range Interpretation Comments POCT GLU (test code = 9585310520) 154 mg/dL 70-110 H Lab Interpretation (test code = Abnormal 87826-9) [facility] GLUCOSE (AUTOMATED)2022-07-23 09:58:20 Test Item Value Reference Range Interpretation Comments POCT GLU (test code = 8605344878) 177 mg/dL 70-110 H Lab Interpretation (test code = Abnormal 53370-2) [facility] GLUCOSE (AUTOMATED)2022-07-23 09:58:20 Test Item Value Reference Range Interpretation Comments POCT GLU (test code = 3000907442) 177 mg/dL 70-110 H Lab Interpretation (test code = Abnormal 26018-0) [facility] GLUCOSE (AUTOMATED)2022-07-22 21:30:57 Test Item Value Reference Range Interpretation Comments POCT GLU (test code = 0470592114) 194 mg/dL 70-110 H Lab Interpretation (test code = Abnormal 68767-2) [facility] GLUCOSE (AUTOMATED)2022-07-22 21:30:57 Test Item Value Reference Range Interpretation Comments POCT GLU (test code = 6851633156) 194 mg/dL 70-110 H Lab Interpretation (test code = Abnormal 30068-6) [facility] GLUCOSE (AUTOMATED)2022-07-22 16:52:50 Test Item Value Reference Range Interpretation Comments POCT GLU (test code = 0506457213) 197 mg/dL 70-110 H Lab Interpretation (test code = Abnormal 94375-8) [facility] GLUCOSE (AUTOMATED)2022-07-22 16:52:50 Test Item Value Reference Range Interpretation Comments POCT GLU (test code = 9019729865) 197 mg/dL 70-110 H Lab Interpretation (test code = Abnormal 52335-4) [facility] GLUCOSE (AUTOMATED)2022-07-22 13:22:34 Test Item Value Reference Range Interpretation Comments POCT GLU (test code = 8213311050) 150 mg/dL 70-110 H Lab Interpretation (test code = Abnormal 73129-8) [facility] GLUCOSE (AUTOMATED)2022-07-22 13:22:34 Test Item Value Reference Range Interpretation Comments POCT GLU (test code = 8088224844) 150 mg/dL 70-110 H Lab Interpretation (test code = Abnormal 07646-3) [id number] 09:38:27 Test Item Value Reference Range Interpretation Comments NT-proBNP (test code 2160 pg/mL See_Comment H [Autom ated = 7508735576) message] The system which generated this result transmitted reference range : <=125. The reference range was not used to interpret this result as normal/abnormal . ROSLYN (test code = ROSLYN) Biotin has been reported to cause a negative bias, interpret results relative to patient's use of biotin. Lab Interpretation Abnormal (test code = 10161-1) [facility] [id number] 09:38:27 Test Item Value Reference Range Interpretation Comments NT-proBNP (test code 2160 pg/mL See_Comment H [Autom ated = 2890382300) message] The system which generated this result transmitted reference range : <=125. The reference range was not used to interpret this result as normal/abnormal . ROSLYN (test code = ROSLYN) Biotin has been reported to cause a negative bias, interpret results relative to patient's use of biotin. Lab Interpretation Abnormal (test code = 37432-2) [facility] 09:31:29 Test Item Value Reference Range Interpretation Comments MAGNESIUM (test code = 0856266321) 1.8 mg/dL 1.7-2.4 Lab Interpretation (test code = Normal 63096-7) [facility]29 Test Item Value Reference Range Interpretation Comments MAGNESIUM (test code = 3719218735) 1.8 mg/dL 1.7-2.4 Lab Interpretation (test code = Normal 18036-1) [facility] (NA, K, CL, CO2, GLUCOSE, BUN, CREATININE, CA)2022-07-22 09:31:09 Test Item Value Reference Range Interpretation Comments NA (test code = 137 mmol/L 135-145 6060489562) K (test code = 4.0 mmol/L 3.5-5 2497081114) CL (test code = 98 mmol/L 98-108 8585994644) CO2 TOTAL (test code = 34 mmol/L 23-31 H 7689539548) AGAP (test code = 2-16 8474363135) BUN (test code = 16 mg/dL 7-23 9963003894) GLUCOSE (test code = 177 mg/dL 70-110 H 0210565315) CREATININE (test code = 0.66 mg/dL 0.6-1.25 0407756627) CALCIUM (test code = 8.2 mg/dL 8.6-10.6 L 7235635456) eGFR (test code = mL/min/1.73m2 2545764753) ROSLYN (test code = ROSLYN) Association of [...] tests). Lab Interpretation Abnormal (test code = 59266-3) [facility] (NA, K, CL, CO2, GLUCOSE, BUN, CREATININE, CA)2022-07-22 09:31:09 Test Item Value Reference Range Interpretation Comments NA (test code = 137 mmol/L 135-145 9866049098) K (test code = 4.0 mmol/L 3.5-5 2409868999) CL (test code = 98 mmol/L 98-108 1488107870) CO2 TOTAL (test code = 34 mmol/L 23-31 H 3253266911) AGAP (test code = 2-16 8341814301) BUN (test code = 16 mg/dL 7- 4713908499) GLUCOSE (test code = 177 mg/dL 70-110 H 2742772129) CREATININE (test code = 0.66 mg/dL 0.6-1.25 3113528924) CALCIUM (test code = 8.2 mg/dL 8.6-10.6 L 8990733012) eGFR (test code = mL/min/1.73m2 1836459373) ROSLYN (test code = ROSLYN) Association of [...] tests). Lab Interpretation Abnormal (test code = 00228-8) [facility] (ALB,T.PRO,BILI T,BU/BC,ALT,AST,ALK PHOS)2022-07-22 09:30:44 Test Item Value Reference Range Interpretation Comments TOTAL BILI (test code = 8432724238) 1.2 mg/dL 0.1-1.1 H BILI UNCON (test code = 2122364786) 0.9 mg/dL 0.1-1.1 BILI CONJ (test code = 6860804263) 0.0 mg/dL 0-0.3 T PROTEIN (test code = 6030768773) 6.5 g/dL 6.3-8.2 ALBUMIN (test code = 1384869186) 3.7 g/dL 3.5-5 ALK PHOS (test code = 8806737419) 67 U/L 34-122 ALTv (test code = 1742-6) 33 U/L 5-50 AST(SGOT) (test code = 0609942942) 30 U/L 13-40 Lab Interpretation (test code = Abnormal 63162-7) [facility] 09:30:44 Test Item Value Reference Range Interpretation Comments PHOSPHORUS (test code = 9005647378) 3.6 mg/dL 2.5-5 Lab Interpretation (test code = Normal 62114-2) [facility]73680[facility] (ALB,T.PRO,BILI T,BU/BC,ALT,AST,ALK PHOS)2022-07-22 09:30:44 Test Item Value Reference Range Interpretation Comments TOTAL BILI (test code = 6430236967) 1.2 mg/dL 0.1-1.1 H BILI UNCON (test code = 1252780633) 0.9 mg/dL 0.1-1.1 BILI CONJ (test code = 7985987324) 0.0 mg/dL 0-0.3 T PROTEIN (test code = 0795769999) 6.5 g/dL 6.3-8.2 ALBUMIN (test code = 0229434827) 3.7 g/dL 3.5-5 ALK PHOS (test code = 3525333201) 67 U/L 34-122 ALTv (test code = 1742-6) 33 U/L 5-50 AST(SGOT) (test code = 7842111877) 30 U/L 13-40 Lab Interpretation (test code = Abnormal 48481-6) [facility] 09:30:44 Test Item Value Reference Range Interpretation Comments PHOSPHORUS (test code = 7738937979) 3.6 mg/dL 2.5-5 Lab Interpretation (test code = Normal 84726-2) [facility] WITH [id number] 09:23:08 Test Item Value Reference Range Interpretation [...] RDW-SD (test code = 46.6 fL 38.5-51.6 17725-5) RDW-CV (test code = 13.5 % 12.1-15.4 788-0) PLT (test code = See_Comment L [Automated 777-3) message] The system which generated this result transmit artem reference range : 150 - 328 10*3/ ?L. The reference range was not u sed to interpret th is result as normal/abnormal . MPV (test code = 12.7 fL 9.8-13 12638-7) NRBC/100 WBC (test See_Comment [Automat ed code = 6076855228) message] The system which generated this result transmit artem reference range : 0.0 - 10.0 /100 WBCs. The reference range was not used to interpret this result as normal/abnormal . NRBC x10^3 (test code See_Comment [Auto mated = 6565776919) message] The system which generated this result transmit artem reference range : 10*3/?L. The reference range was not used to interpret this result as normal/abnormal . GRAN MAT (NEUT) % 71.3 % (test code = 770-8) IMM GRAN % (test code 0.40 % = 0285565810) LYMPH % (test code = 17.4 % 736-9) MONO % (test code = 9.8 % 5905-5) EOS % (test code = 0.8 % 713-8) BASO % (test code = 0.3 % 706-2) GRAN MAT x10^3(ANC) 10.18 10*3/uL 1.99-6.95 H (test code = 9482535404) IMM GRAN x10^3 (test 0.06 10*3/uL 0-0.06 code = 8216773479) LYMPH x10^3 (test code 2.49 10*3/uL 1.09-3.23 = 731-0) MONO x10^3 (test code 1.40 10*3/uL 0.36-1.02 H = 742-7) EOS x10^3 (test code = 0.11 10*3/uL 0.06-0.53 711-2) BASO x10^3 (test code 0.04 10*3/uL 0.01-0.09 = 704-7) Lab Interpretation Abnormal (test code = 33952-5) [facility] WITH [id number] 09:23:08 Test Item Value Reference Range Interpretation Comments WBC (test code = See_Comment H [Automated 4090-2) message] The system which generated this result [...] RDW-SD (test code = 46.6 fL 38.5-51.6 80596-4) RDW-CV (test code = 13.5 % 12.1-15.4 788-0) PLT (test code = See_Comment L [Automated 777-3) message] The system which generated this result transmit artem reference range : 150 - 328 10*3/ ?L. The reference range was not u sed to interpret th is result as normal/abnormal . MPV (test code = 12.7 fL 9.8-13 73944-8) NRBC/100 WBC (test See_Comment [Automat ed code = 1520490959) message] The system which generated this result transmit artem reference range : 0.0 - 10.0 /100 WBCs. The reference range was not used to interpret this result as normal/abnormal . NRBC x10^3 (test code See_Comment [Auto mated = 1290572159) message] The system which generated this result transmit artem reference range : 10*3/?L. The reference range was not used to interpret this result as normal/abnormal . GRAN MAT (NEUT) % 71.3 % (test code = 770-8) IMM GRAN % (test code 0.40 % = 0085643712) LYMPH % (test code = 17.4 % 736-9) MONO % (test code = 9.8 % 5905-5) EOS % (test code = 0.8 % 713-8) BASO % (test code = 0.3 % 706-2) GRAN MAT x10^3(ANC) 10.18 10*3/uL 1.99-6.95 H (test code = 4282172902) IMM GRAN x10^3 (test 0.06 10*3/uL 0-0.06 code = 1841359388) LYMPH x10^3 (test code 2.49 10*3/uL 1.09-3.23 = 731-0) MONO x10^3 (test code 1.40 10*3/uL 0.36-1.02 H = 742-7) EOS x10^3 (test code = 0.11 10*3/uL 0.06-0.53 711-2) BASO x10^3 (test code 0.04 10*3/uL 0.01-0.09 = 704-7) Lab Interpretation Abnormal (test code = 54072-6) [facility] GLUCOSE (AUTOMATED)2022-07-22 01:47:13 Test Item Value Reference Range Interpretation Comments POCT GLU (test code = 9067650900) 220 mg/dL 70-110 H Lab Interpretation (test code = Abnormal 52045-7) [facility] GLUCOSE (AUTOMATED)2022-07-22 01:47:13 Test Item Value Reference Range Interpretation Comments POCT GLU (test code = 4371254841) 220 mg/dL 70-110 H Lab Interpretation (test code = Abnormal 04469-1) [facility]TOTAL CHOLESTEROL, TRIGLYCERIDES, HDL)2022-07-22 00:19:28 Test Item Value Reference Range Interpretation Comments CHOL (test code = 121 mg/dL 120-200 1434630482) HDL (test code = 28 mg/dL See_Comment L [Automated message] 1052991181) The system [employer] generated this result transmit artem reference range : >=40. The refer ence range was not u sed to interpret th is result as normal/abnormal . HDLC RATIO (test code = See_Comment [Au tomated message] 6555987231) The system [employer] generated this result transmit artem reference range : <=5.0. The refe rence range was not u sed to interpret th is result as normal/abnormal . TRIG (test code = 119 mg/dL 30-170 7081861228) LDL CHOL (test code = 69 mg/dL See_Comment [Auto mated message] 34954-6) The system [employer] generated this result transmit artem reference range : <=160. The refe rence range was not u sed to interpret th is result as normal/abnormal . VLDL (test code = 24 mg/dL 5-60 9945946202) Lab Interpretation (test Abnormal code = 55970-4) [facility]30479)(TOTAL CHOLESTEROL, TRIGLYCERIDES, HDL)2022-07-22 00:19:28 Test Item Value Reference Range Interpretation Comments CHOL (test code = 121 mg/dL 120-200 7881146802) HDL (test code = 28 mg/dL See_Comment L [Automated message] 8969416443) The system [employer] generated this result transmit artem reference range : >=40. The refer ence range was not u sed to interpret th is result as normal/abnormal . HDLC RATIO (test code = See_Comment [Au tomated message] 7147532861) The system Mob[employer] generated this result transmit artem reference range : <=5.0. The refe rence range was not u sed to interpret th is result as normal/abnormal . TRIG (test code = 119 mg/dL 30-170 1367398936) LDL CHOL (test code = 69 mg/dL See_Comment [Auto mated message] 28326-7) The system [employer] generated this result transmit artem reference range : <=160. The refe rence range was not u sed to interpret th is result as normal/abnormal . VLDL (test code = 24 mg/dL 5-60 7225987549) Lab Interpretation (test Abnormal code = 08114-4) [facility]:00:55 Test Item Value Reference Range Interpretation Comments Height (test code = in 6484345274) Weight (test code = lbs 9430639478) Systolic BP (test code = mmHg 3416816998) Diastolic BP (test code mmHg = 9351483766) Heart Rate (test code = bpm 0519070618) BSA (test code = 2.04 m2 6797209708) Ao root annulus (test 3.5 cm code = 9996938264) Ao root diam (test code 3.50 cm = 9801071573) Aortic root (test code = 3.5 cm 4376361996) LVOT diameter (test code 2.19 cm = 8514722014) LVOT area (test code = 3.80 cm2 6258814199) LVIDD (test code = 5.30 cm 1749463146) Left Ventricular End 135.3 mL Diastolic Volume by Teichholz Method (test code = 0734476) IVS (test code = 1.26 cm 9805612974) Interventricular Septum 1.26 cm Diastolic Thickness by 2D (test code = 2012375) LVPWD (test code = 1.26 cm 8104289914) PW (test code = 1.26 cm 0.6-1.4 1448579341) EF(Teich) (test code = 16.40 % 8719857887) LVIDS (test code = 4.90 cm 2635736686) Left Ventricular End 113.1 mL Systolic Volume by Teichholz Method (test code = 6606188) FS (test code = 7 % 0386185370) EF - 2D (test code = 16.40 % 58261740) LA size (test code = 4.3 cm 9673845288) TR Peak Anthony (test code = 249.6 cm/s 6997790146) Triscuspid Valve mmHg Regurgitation Peak Gradient (test code = 2752373916) LAV(MOD-sp4) (test code 79.00 mL = 2189424909) E wave decelartion time 0.13 s (test code = 6985907178) MV Peak E Anthony (test code 82.3 cm/s = 3119630851) MV stenosis pressure 1/2 38.8 ms time (test code = 6883259378) MV Peak A Anthony (test code 40.8 cm/s = 9823126614) E/A ratio (test code = ratio 6126460634) MR max PG (test code = 61.50 mm[Hg] 1277399788) MR max anthony (test code = 392.20 cm/s 5619180121) Mr max anthony (test code = 392.2 m/s 1877451544) MV Prop V (test code = 33.40 cm/s 6588527818) MV E/e' septal (test 12.6 cm/s code = 1376330208) Tapse (test code = 1.17 cm 3455236261) LVOT stroke volume (test 52.20 cm3 code = 1243876903) LVOT peak anthony (test code 86.4 cm/s = 2890656824) LVOT mn grad (test code mmHg = 1168551632) AV LVOT peak gradient mmHg (test code = 0162359946) LVOT peak VTI (test code 13.9 cm = 6893160100) LV V1 mean (test code = 57.20 cm/s 8795193229) Aortic valve mean 94.3 cm/s velocity (test code = 1830119701) Ao peak anthony (test code = 125.8 cm/s 3627460554) Ao VTI (test code = 22.6 cm 1553714089) AV area by cont VTI 2.3 cm2 (test code = 2565020987) AV area peak anthony (test 2.6 cm2 code = 2283115008) Ao max PG (test code = 6.30 mm[Hg] 4977271820) AV peak gradient (test mmHg code = 9108900737) AV valve area (test code 2.31 cm2 = 7558183486) AV mean gradient (test mmHg code = 8854392491) Radiology Study observation (narrative) (test code = 74195-1) ROSLYN (test code = ROSLYN) ?Left?Ventricle: Left [...] mL of Lumason ultrasound enhancing agent used. [facility] 00:00:55 Test Item Value Reference Range Interpretation Comments Height (test code = in 8000329758) Weight (test code = lbs 4505189017) Systolic BP (test code = mmHg 5161077738) Diastolic BP (test code mmHg = 0270923242) Heart Rate (test code = bpm 9377083572) BSA (test code = 2.04 m2 7902994005) Ao root annulus (test 3.5 cm code = 3234184262) Ao root diam (test code 3.50 cm = 7423599222) Aortic root (test code = 3.5 cm 8189846907) LVOT diameter (test code 2.19 cm = 2439201815) LVOT area (test code = 3.80 cm2 7713300149) LVIDD (test code = 5.30 cm 3830914266) Left Ventricular End 135.3 mL Diastolic Volume by Teichholz Method (test code = 5329424) IVS (test code = 1.26 cm 1575132180) Interventricular Septum 1.26 cm Diastolic Thickness by 2D (test code = 8721325) LVPWD (test code = 1.26 cm 4412599198) PW (test code = 1.26 cm 0.6-1.6 6625401754) EF(Teich) (test code = 16.40 % 2070540944) LVIDS (test code = 4.90 cm 3168399118) Left Ventricular End 113.1 mL Systolic Volume by Teichholz Method (test code = 5270006) FS (test code = 7 % 4260718237) EF - 2D (test code = 16.40 % 49508399) LA size (test code = 4.3 cm 5200884817) TR Peak Anthony (test code = 249.6 cm/s 9382414096) Triscuspid Valve mmHg Regurgitation Peak Gradient (test code = 1650186011) LAV(MOD-sp4) (test code 79.00 mL = 2853506924) E wave decelartion time 0.13 s (test code = 1058839312) MV Peak E Anthony (test code 82.3 cm/s = 4595776305) MV stenosis pressure 1/2 38.8 ms time (test code = 5678244473) MV Peak A Anthony (test code 40.8 cm/s = 8362419082) E/A ratio (test code = ratio 0977592080) MR max PG (test code = 61.50 mm[Hg] 7859177355) MR max anthony (test code = 392.20 cm/s 3132571977) Mr max anthony (test code = 392.2 m/s 5947799338) MV Prop V (test code = 33.40 cm/s 4773640141) MV E/e' septal (test 12.6 cm/s code = 0687436030) Tapse (test code = 1.17 cm 5571238923) LVOT stroke volume (test 52.20 cm3 code = 4151293398) LVOT peak anthony (test code 86.4 cm/s = 2850157688) LVOT mn grad (test code mmHg = 6646557059) AV LVOT peak gradient mmHg (test code = 9040879161) LVOT peak VTI (test code 13.9 cm = 5050213221) LV V1 mean (test code = 57.20 cm/s 7388331528) Aortic valve mean 94.3 cm/s velocity (test code = 7792606283) Ao peak anthony (test code = 125.8 cm/s 8460463740) Ao VTI (test code = 22.6 cm 1070430076) AV area by cont VTI 2.3 cm2 (test code = 4990271435) AV area peak anthony (test 2.6 cm2 code = 1331809434) Ao max PG (test code = 6.30 mm[Hg] 1444973119) AV peak gradient (test mmHg code = 8063791751) AV valve area (test code 2.31 cm2 = 9299427979) AV mean gradient (test mmHg code = 9624063933) Radiology Study observation (narrative) (test code = 15759-9) ROSLYN (test code = ROSLYN) ?Left?Ventricle: Left [...] mL of Lumason ultrasound enhancing agent used. [facility] GLUCOSE (AUTOMATED)2022-07-21 21:54:48 Test Item Value Reference Range Interpretation Comments POCT GLU (test code = 9022672290) 161 mg/dL 70-110 H Lab Interpretation (test code = Abnormal 42433-3) [facility] GLUCOSE (AUTOMATED)2022-07-21 21:54:48 Test Item Value Reference Range Interpretation Comments POCT GLU (test code = 2434350779) 161 mg/dL 70-110 H Lab Interpretation (test code = Abnormal 68386-8) [facility] GLUCOSE (AUTOMATED)2022-07-21 16:47:05 Test Item Value Reference Range Interpretation Comments POCT GLU (test code = 9862614018) 132 mg/dL 70-110 H Lab Interpretation (test code = Abnormal 68508-3) [facility] GLUCOSE (AUTOMATED)2022-07-21 16:47:05 Test Item Value Reference Range Interpretation Comments POCT GLU (test code = 8087415037) 132 mg/dL 70-110 H Lab Interpretation (test code = Abnormal 77210-2) [facility] GLUCOSE (AUTOMATED)2022-07-21 15:03:01 Test Item Value Reference Range Interpretation Comments POCT GLU (test code = 0734090966) 182 mg/dL 70-110 H Lab Interpretation (test code = Abnormal 74453-1) [facility] 15:03:01 Test Item Value Reference Range Interpretation Comments POCT GLU (test code = 9408043041) 182 mg/dL 70-110 H Lab Interpretation (test code = Abnormal 23179-2) [facility] with [id number] 14:58:14 Test Item Value Reference Range Interpretation [...] RDW-SD (test code = 46.4 fL 38.5-51.6 46729-8) RDW-CV (test code = 13.5 % 12.1-15.4 788-0) PLT (test code = See_Comment [Automated 777-3) message] The system which generated this result transmit artem reference range : 150 - 328 10*3/ ?L. The reference range was not u sed to interpret th is result as normal/abnormal . MPV (test code = 13.0 fL 9.8-13 36658-5) NRBC/100 WBC (test See_Comment [Automat ed code = 8444539164) message] The system which generated this result transmit artem reference range : 0.0 - 10.0 /100 WBCs. The reference range was not used to interpret this result as normal/abnormal . NRBC x10^3 (test code See_Comment [Auto mated = 6628193892) message] The system which generated this result transmit artem reference range : 10*3/?L. The reference range was not used to interpret this result as normal/abnormal . GRAN MAT (NEUT) % 71.1 % (test code = 770-8) IMM GRAN % (test code 0.40 % = 5176302972) LYMPH % (test code = 17.6 % 736-9) MONO % (test code = 10.3 % 5905-5) EOS % (test code = 0.3 % 713-8) BASO % (test code = 0.3 % 706-2) GRAN MAT x10^3(ANC) 10.55 10*3/uL 1.99-6.95 H (test code = 2305676027) IMM GRAN x10^3 (test 0.06 10*3/uL 0-0.06 code = 7020935169) LYMPH x10^3 (test code 2.61 10*3/uL 1.09-3.23 = 731-0) MONO x10^3 (test code 1.53 10*3/uL 0.36-1.02 H = 742-7) EOS x10^3 (test code = 0.04 10*3/uL 0.06-0.53 L 711-2) BASO x10^3 (test code 0.04 10*3/uL 0.01-0.09 = 704-7) BANDS (test code = Increased A 8181075908) REACT LYMPHS (test Rare code = 1896997216) GIANT PLATELETS (test Present See_Comment A [Auto mated code = 5908-9) message] The system which generated this result transmit artem reference range : (none). The reference range was not used to interpret this result as normal/abnormal . Lab Interpretation Abnormal (test code = 70020-6) [facility] with [id number] 14:58:14 Test Item Value Reference Range Interpretation Comments WBC (test code = See_Comment H [Automated 8490-2) message] The system which generated this result [...] RDW-SD (test code = 46.4 fL 38.5-51.6 92160-0) RDW-CV (test code = 13.5 % 12.1-15.4 788-0) PLT (test code = See_Comment [Automated 777-3) message] The system which generated this result transmit artem reference range : 150 - 328 10*3/ ?L. The reference range was not u sed to interpret th is result as normal/abnormal . MPV (test code = 13.0 fL 9.8-13 09077-3) NRBC/100 WBC (test See_Comment [Automat ed code = 4213999455) message] The system which generated this result transmit artem reference range : 0.0 - 10.0 /100 WBCs. The reference range was not used to interpret this result as normal/abnormal . NRBC x10^3 (test code See_Comment [Auto mated = 4416103557) message] The system which generated this result transmit artem reference range : 10*3/?L. The reference range was not used to interpret this result as normal/abnormal . GRAN MAT (NEUT) % 71.1 % (test code = 770-8) IMM GRAN % (test code 0.40 % = 6265367104) LYMPH % (test code = 17.6 % 736-9) MONO % (test code = 10.3 % 5905-5) EOS % (test code = 0.3 % 713-8) BASO % (test code = 0.3 % 706-2) GRAN MAT x10^3(ANC) 10.55 10*3/uL 1.99-6.95 H (test code = 8822794452) IMM GRAN x10^3 (test 0.06 10*3/uL 0-0.06 code = 3405607291) LYMPH x10^3 (test code 2.61 10*3/uL 1.09-3.23 = 731-0) MONO x10^3 (test code 1.53 10*3/uL 0.36-1.02 H = 742-7) EOS x10^3 (test code = 0.04 10*3/uL 0.06-0.53 L 711-2) BASO x10^3 (test code 0.04 10*3/uL 0.01-0.09 = 704-7) BANDS (test code = Increased A 7969610337) REACT LYMPHS (test Rare code = 6480196570) GIANT PLATELETS (test Present See_Comment A [Auto mated code = 5908-9) message] The system which generated this result transmit artem reference range : (none). The reference range was not used to interpret this result as normal/abnormal . Lab Interpretation Abnormal (test code = 16187-3) [facility] GLUCOSE (AUTOMATED)2022-07-21 13:20:46 Test Item Value Reference Range Interpretation Comments POCT GLU (test code = 0788296024) 148 mg/dL 70-110 H Lab Interpretation (test code = Abnormal 03879-4) [facility] GLUCOSE (AUTOMATED)2022-07-21 13:20:46 Test Item Value Reference Range Interpretation Comments POCT GLU (test code = 7759210674) 148 mg/dL 70-110 H Lab Interpretation (test code = Abnormal 30651-5) [facility] Metabolic Panel (NA, K, CL, CO2, GLUCOSE, BUN, CREATININE, CA)2022-07-21 13:17:35 Test Item Value Reference Range Interpretation Comments NA (test code = 134 mmol/L 135-145 L 9574011223) K (test code = 4.1 mmol/L 3.5-5 4367241511) CL (test code = 99 mmol/L 98-108 4436372772) CO2 TOTAL (test code = 32 mmol/L 23-31 H 4332368313) AGAP (test code = 2-16 9824676138) BUN (test code = 17 mg/dL 7-23 5614931400) GLUCOSE (test code = 186 mg/dL 70-110 H 1202002185) CREATININE (test code = 0.65 mg/dL 0.6-1.25 6046920311) CALCIUM (test code = 8.2 mg/dL 8.6-10.6 L 7279008081) eGFR (test code = mL/min/1.73m2 5143391878) ROSLYN (test code = ROSLYN) Association of [...] tests). Lab Interpretation Abnormal (test code = 80308-3) [facility] Metabolic Panel (NA, K, CL, CO2, GLUCOSE, BUN, CREATININE, CA)2022-07-21 13:17:35 Test Item Value Reference Range Interpretation Comments NA (test code = 134 mmol/L 135-145 L 3308835230) K (test code = 4.1 mmol/L 3.5-5 3620327911) CL (test code = 99 mmol/L 98-108 5500036167) CO2 TOTAL (test code = 32 mmol/L 23-31 H 9152049920) AGAP (test code = 2-16 7422210601) BUN (test code = 17 mg/dL 7-23 7863577869) GLUCOSE (test code = 186 mg/dL 70-110 H 4352133274) CREATININE (test code = 0.65 mg/dL 0.6-1.25 5412001395) CALCIUM (test code = 8.2 mg/dL 8.6-10.6 L 8579898353) eGFR (test code = mL/min/1.73m2 4353374154) ROSLYN (test code = ROSLYN) Association of [...] tests). Lab Interpretation Abnormal (test code = 93677-1) [facility] [id number] 12:35:48 Test Item Value Reference Interpretation Comments Range TROPONIN I (test 0.032 ng/mL See_Comment [Automated code = 6493902379) message] The system which generated this result [...] biotin. Lab Interpretation Normal (test code = 95206-2) [facility] [id number] 12:35:48 Test Item Value Reference Interpretation Comments Range TROPONIN I (test 0.032 ng/mL See_Comment [Automated code = 6381812928) message] The system which generated this result [...] biotin. Lab Interpretation Normal (test code = 78543-5) [id number] 12:32:47 Test Item Value Reference Range Interpretation Comments NT-proBNP (test code 3830 pg/mL See_Comment H [Autom ated = 4553831562) message] The system which generated this result transmitted reference range : <=125. The reference range was not used to interpret this result as normal/abnormal . ROSLYN (test code = ROSLYN) Biotin has been reported to cause a negative bias, interpret results relative to patient's use of biotin. Lab Interpretation Abnormal (test code = 11238-6) [facility] [id number] 12:32:47 Test Item Value Reference Range Interpretation Comments NT-proBNP (test code 3830 pg/mL See_Comment H [Autom ated = 3999416600) message] The system which generated this result transmitted reference range : <=125. The reference range was not used to interpret this result as normal/abnormal . ROSLYN (test code = ROSLYN) Biotin has been reported to cause a negative bias, interpret results relative to patient's use of biotin. Lab Interpretation Abnormal (test code = 56940-8) [id number] 12:24:10 Test Item Value Reference Range Interpretation Comments MAGNESIUM (test code = 1058471519) 1.8 mg/dL 1.7-2.4 Lab Interpretation (test code = Normal 02846-5) [facility] [id number] 12:24:10 Test Item Value Reference Range Interpretation Comments MAGNESIUM (test code = 2537472602) 1.8 mg/dL 1.7-2.4 Lab Interpretation (test code = Normal 35820-0) [facility] GLUCOSE (AUTOMATED)2022-07-21 04:19:16 Test Item Value Reference Range Interpretation Comments POCT GLU (test code = 6358289242) 169 mg/dL 70-110 H Lab Interpretation (test code = Abnormal 52285-6) [facility] GLUCOSE (AUTOMATED)2022-07-21 04:19:16 Test Item Value Reference Range Interpretation Comments POCT GLU (test code = 1121720566) 169 mg/dL 70-110 H Lab Interpretation (test code = Abnormal 13083-0) [facility] GLUCOSE (AUTOMATED)2022-07-21 02:03:28 Test Item Value Reference Range Interpretation Comments POCT GLU (test code = 9799655650) 242 mg/dL 70-110 H Lab Interpretation (test code = Abnormal 49447-7) [facility] GLUCOSE (AUTOMATED)2022-07-21 02:03:28 Test Item Value Reference Range Interpretation Comments POCT GLU (test code = 1651285830) 242 mg/dL 70-110 H Lab Interpretation (test code = Abnormal 22583-8) [facility] 00:46:20 Test Item Value Reference Range Interpretation Comments HGB A1C (test code = 11.1 % 4-5.7 H 4548-4) ROSLYN (test code = ROSLYN) Reference RangesNormal: <5.7%Prediabetes: 5.7 - 6.4%Diabetes: > 6.5% Lab Interpretation (test Abnormal code = 57022-0) [facility]-21 00:46:20 Test Item Value Reference Range Interpretation Comments HGB A1C (test code = 11.1 % 4-5.7 H 4548-4) ROSLYN (test code = ROSLYN) Reference RangesNormal: <5.7%Prediabetes: 5.7 - 6.4%Diabetes: > 6.5% Lab Interpretation (test Abnormal code = 39664-1) [facility] GLUCOSE (AUTOMATED)2022-07-20 22:27:55 Test Item Value Reference Range Interpretation Comments POCT GLU (test code = 4201385023) 234 mg/dL 70-110 H Lab Interpretation (test code = Abnormal 50775-5) [facility] GLUCOSE (AUTOMATED)2022-07-20 22:27:55 Test Item Value Reference Range Interpretation Comments POCT GLU (test code = 4008897967) 234 mg/dL 70-110 H Lab Interpretation (test code = Abnormal 77314-9) [facility] [id number] 17:21:08 Test Item Value Reference Range Interpretation Comments NT-proBNP (test code 3250 pg/mL See_Comment H [Autom ated = 8580449498) message] The system which generated this result transmitted reference range : <=125. The reference range was not used to interpret this result as normal/abnormal . ROSLYN (test code = ROSLYN) Biotin has been reported to cause a negative bias, interpret results relative to patient's use of biotin. Lab Interpretation Abnormal (test code = 96261-7) [facility] [id number] 17:21:08 Test Item Value Reference Range Interpretation Comments NT-proBNP (test code 3250 pg/mL See_Comment H [Autom ated = 7163768484) message] The system which generated this result transmitted reference range : <=125. The reference range was not used to interpret this result as normal/abnormal . ROSLYN (test code = ROSLYN) Biotin has been reported to cause a negative bias, interpret results relative to patient's use of biotin. Lab Interpretation Abnormal (test code = 86312-9) [facility] WITH [id number] 17:16:49 Test Item Value Reference Range Interpretation Comments WBC (test code = See_Comment H [Automated 7090-2) message] The system which generated this result transmit artem reference range : 4.20 - 10.70 10*3/?L. The reference range was not used to interpret this result as normal/abnormal . RBC (test code = See_Comment H [Automated 379-8) message] The system which generated this result [...] RDW-SD (test code = 44.7 fL 38.5-51.6 22461-2) RDW-CV (test code = 13.7 % 12.1-15.4 788-0) PLT (test code = See_Comment [Automated 777-3) message] The system which generated this result transmit artem reference range : 150 - 328 10*3/ ?L. The reference range was not u sed to interpret th is result as normal/abnormal . MPV (test code = 12.5 fL 9.8-13 04819-3) NRBC/100 WBC (test See_Comment [Automat ed code = 8282703695) message] The system which generated this result transmit artem reference range : 0.0 - 10.0 /100 WBCs. The reference range was not used to interpret this result as normal/abnormal . NRBC x10^3 (test code See_Comment [Auto mated = 8307154394) message] The system which generated this result transmit artem reference range : 10*3/?L. The reference range was not used to interpret this result as normal/abnormal . GRAN MAT (NEUT) % 76.6 % (test code = 770-8) IMM GRAN % (test code 0.70 % = 3154764479) LYMPH % (test code = 13.8 % 736-9) MONO % (test code = 8.5 % 5905-5) EOS % (test code = 0.1 % 713-8) BASO % (test code = 0.3 % 706-2) GRAN MAT x10^3(ANC) 17.13 10*3/uL 1.99-6.95 H (test code = 7028860445) IMM GRAN x10^3 (test 0.16 10*3/uL 0-0.06 H code = 7898885690) LYMPH x10^3 (test code 3.10 10*3/uL 1.09-3.23 = 731-0) MONO x10^3 (test code 1.91 10*3/uL 0.36-1.02 H = 742-7) EOS x10^3 (test code = 0.06-0.53 L 711-2) BASO x10^3 (test code 0.07 10*3/uL 0.01-0.09 = 704-7) BANDS (test code = Increased A 4507264162) REACT LYMPHS (test Rare code = 8632379962) Lab Interpretation Abnormal (test code = 66779-1) [facility] WITH [id number] 17:16:49 Test Item Value Reference Range Interpretation [...] RDW-SD (test code = 44.7 fL 38.5-51.6 02512-3) RDW-CV (test code = 13.7 % 12.1-15.4 788-0) PLT (test code = See_Comment [Automated 777-3) message] The system which generated this result transmit artem reference range : 150 - 328 10*3/ ?L. The reference range was not u sed to interpret th is result as normal/abnormal . MPV (test code = 12.5 fL 9.8-13 47112-9) NRBC/100 WBC (test See_Comment [Automat ed code = 4781857635) message] The system which generated this result transmit artem reference range : 0.0 - 10.0 /100 WBCs. The reference range was not used to interpret this result as normal/abnormal . NRBC x10^3 (test code See_Comment [Auto mated = 7275131148) message] The system which generated this result transmit artem reference range : 10*3/?L. The reference range was not used to interpret this result as normal/abnormal . GRAN MAT (NEUT) % 76.6 % (test code = 770-8) IMM GRAN % (test code 0.70 % = 9785474085) LYMPH % (test code = 13.8 % 736-9) MONO % (test code = 8.5 % 5905-5) EOS % (test code = 0.1 % 713-8) BASO % (test code = 0.3 % 706-2) GRAN MAT x10^3(ANC) 17.13 10*3/uL 1.99-6.95 H (test code = 4669592821) IMM GRAN x10^3 (test 0.16 10*3/uL 0-0.06 H code = 2431243157) LYMPH x10^3 (test code 3.10 10*3/uL 1.09-3.23 = 731-0) MONO x10^3 (test code 1.91 10*3/uL 0.36-1.02 H = 742-7) EOS x10^3 (test code = 0.06-0.53 L 711-2) BASO x10^3 (test code 0.07 10*3/uL 0.01-0.09 = 704-7) BANDS (test code = Increased A 7612407100) REACT LYMPHS (test Rare code = 5660765216) Lab Interpretation Abnormal (test code = 56361-4) [facility] [id number] 16:42:04 Test Item Value Reference Interpretation Comments Range TROPONIN I (test 0.025 ng/mL See_Comment [Automated code = 5472803802) message] The system which generated this result [...] biotin. Lab Interpretation Normal (test code = 13282-1) [facility] [id number] 16:42:04 Test Item Value Reference Interpretation Comments Range TROPONIN I (test 0.025 ng/mL See_Comment [Automated code = 5663050501) message] The system which generated this result [...] biotin. Lab Interpretation Normal (test code = 53022-3) [facility] 16:31:19 Test Item Value Reference Range Interpretation Comments APTT Patient (test See_Comment [Automat ed code = 3173-2) message] The system which generated this result transmitted reference range : 23 - 38 Seconds . The reference range was not used to interpr et this result as normal/abnormal . ROSLYN (test code = ROSLYN) The [facility] patient population mean normal value for aPTT is 30 seconds. Lab Interpretation Normal (test code = 27216-1) [facility] 16:31:19 Test Item Value Reference Range Interpretation Comments APTT Patient (test See_Comment [Automat ed code = 3173-2) message] The system which generated this result transmitted reference range : 23 - 38 Seconds . The reference range was not used to interpr et this result as normal/abnormal . ROSLYN (test code = ROSLYN) The [facility] patient population mean normal value for aPTT is 30 seconds. Lab Interpretation Normal (test code = 29460-2) [facility]. METABOLIC PANEL ([id number])2022-07-20 16:30:19 Test Item Value Reference Range Interpretation Comments NA (test code = 133 mmol/L 135-145 L 9558127161) K (test code = 5.3 mmol/L 3.5-5 H 2112278799) CL (test code = 98 mmol/L 98-108 0406181305) CO2 TOTAL (test code = 27 mmol/L 23-31 8781450061) AGAP (test code = 2-16 4393440287) BUN (test code = 13 mg/dL 7-23 1053402666) GLUCOSE (test code = 273 mg/dL 70-110 H 3426221831) CREATININE (test code = 0.62 mg/dL 0.6-1.25 0836986216) TOTAL BILI (test code = 2.1 mg/dL 0.1-1.1 H 7540421593) CALCIUM (test code = 8.6 mg/dL 8.6-10.6 0336127668) T PROTEIN (test code = 7.3 g/dL 6.3-8.2 0078003551) ALBUMIN (test code = 4.4 g/dL 3.5-5 8778779076) ALK PHOS (test code = 61 U/L 34-122 7591284712) ALTv (test code = 29 U/L 5-50 1742-6) AST(SGOT) (test code = 36 U/L 13-40 9273066733) eGFR (test code = mL/min/1.73m2 8111904644) ROSLYN (test code = ROSLYN) Association of [...] tests). Lab Interpretation Abnormal (test code = 60193-5) [facility]. METABOLIC PANEL ([id number])2022-07-20 16:30:19 Test Item Value Reference Range Interpretation Comments NA (test code = 133 mmol/L 135-145 L 9138910429) K (test code = 5.3 mmol/L 3.5-5 H 9588742346) CL (test code = 98 mmol/L 98-108 3028075080) CO2 TOTAL (test code = 27 mmol/L 23-31 5407225817) AGAP (test code = 2-16 5703155727) BUN (test code = 13 mg/dL 7-23 9215471459) GLUCOSE (test code = 273 mg/dL 70-110 H 6175333576) CREATININE (test code = 0.62 mg/dL 0.6-1.25 1097402208) TOTAL BILI (test code = 2.1 mg/dL 0.1-1.1 H 3354990666) CALCIUM (test code = 8.6 mg/dL 8.6-10.6 2236786598) T PROTEIN (test code = 7.3 g/dL 6.3-8.2 1006416833) ALBUMIN (test code = 4.4 g/dL 3.5-5 7183363449) ALK PHOS (test code = 61 U/L 34-122 3889853557) ALTv (test code = 29 U/L 5-50 1742-6) AST(SGOT) (test code = 36 U/L 13-40 0287965877) eGFR (test code = mL/min/1.73m2 5852071346) ROSLYN (test code = ROSLYN) Association of [...] tests). Lab Interpretation Abnormal (test code = 81930-4) [id number] 16:29:23 Test Item Value Reference Range Interpretation Comments PROTIME PATIENT (test See_Comment [Auto mated message] code = 5964-2) The system [employer] generated this result transmitted ref erence range: 12.0 - 1 4.7 Seconds. The re ference range was not u sed to interpret this result as normal/abnor mal. INR (test code = 6301-6) Nor mal INR <1.1; Warfarin Therap eutic range 2.0 to 3. 0 or 2.5 to 3.5, dep ending upon the indica tions. Lab Interpretation (test Normal code = 50621-8) [facility] [id number] 16:29:23 Test Item Value Reference Range Interpretation Comments PROTIME PATIENT (test See_Comment [Auto mated message] code = 5964-2) The system [employer] generated this result transmitted ref erence range: 12.0 - 1 4.7 Seconds. The re ference range was not u sed to interpret this result as normal/abnor mal. INR (test code = 6301-6) Nor mal INR <1.1; Warfarin Therap eutic range 2.0 to 3. 0 or 2.5 to 3.5, dep ending upon the indica tions. Lab Interpretation (test Normal code = 47412-6) [facility]"
[2022-10-11 14:42] LABS: Absolute Lymphocytes (CBC) 2.5 K/uL (0.7-4.9); Hematocrit 45.4 % (39.6-49.0); Lymphocytes % 19.7 % (15.3-44.8); MCV 91.7 fL (80-100); MPV 9.6 fL (7.6-11.3); RBC Red Blood Cell Count 4.94 M/uL (4.33-5.43)
[2022-10-11 15:05] LABS: Magnesium 2.2 mg/dL (1.8-2.4); Potassium 3.8 mmol/L (3.5-5.1); Troponin High Sensitivity 13.7 pg/mL (<58.9)
--- NOTE | 2022-10-11 15:13 | RAD REPORT ---
EXAM DESCRIPTION: RAD - Chest Single View - 10/11/2022 3:04 pm CLINICAL HISTORY: CHEST PAIN Chest pain. COMPARISON: Chest Single View dated 10/07/2022; Chest Single View dated 09/07/2022; Chest Single Vie w dated 09/01/2022; Chest Single View dated 08/12/2022 FINDINGS: Portable technique limits examination quality. The lungs are grossly clear. The heart is normal in size. No displaced fractures. IMPRESSION: No acute intrathoracic process suspected.
--- NOTE | 2022-10-11 17:03 | EDPHYS ---
Physician Documentation [facility] Name: José Pat Age: 72 yrs Sex: Male : 1950 Arrival Date: 10/11/2022 Time: 14:07 Bed 4 Private MD: ED Physician Jayme Rao HPI: 10/11 16:21 This 72 yrs old Male presents to ER via EMS with complaints of Chest Pain. kb 16:21 The patient or guardian reports chest pain that is located primarily in the anterior kb chest wall, left. Onset: this morning. The pain does not radiate. Associated signs and symptoms: The patient has no apparent associated signs or symptoms. The chest pain is described as aching. Duration: The patient or guardian reports a single episode. Modifying factors: The symptoms are alleviated by nothing. the symptoms are aggravated by nothing. Severity of pain: At its worst the pain was mild in the emergency department the pain has improved. The patient has experienced similar episodes in the past, multiple times. The patient has been recently been admitted at [facility], was discharged earlier this week. Pt reports chest pain that started sometime this morning. STates it is better now.. Historical: - Home Meds: 17:36 Eliquis Oral [Active]; Insulin: Lantus Sub-Q [Active]; tamsulosin 0.4 mg Oral cap bp [Active]; - PMHx: 14:08 Atrial fibrillation; CHF; COPD; Diabetes - IDDM; ss - Immunization history:: Adult Immunizations unknown, Client reports having NOT received the Covid vaccine. Last tetanus immunization: unknown. - Social history:: Smoking status: Patient reports the use of cigarette tobacco products, smokes one-half pack cigarettes per day. ROS: 16:20 Constitutional: Negative for fever, chills, and weight loss. kb 16:20 Cardiovascular: Positive for chest pain, Negative for edema, orthopnea, palpitations, paroxysmal nocturnal dyspnea. 16:20 All other systems are negative. 16:20 All other systems are negative. Exam: 15:36 Constitutional: This is a well developed, well nourished patient who is awake, alert, kb and in no acute distress. Head/Face: Normocephalic, atraumatic. ENT: Moist Mucous membranes Cardiovascular: Regular rate and rhythm with a normal S1 and S2. No gallops, murmurs, or rubs. No pulse deficits. Respiratory: Respirations even and unlabored. No increased work of breathing. Talking in full sentences Abdomen/GI: Soft, non-tender. No distention Skin: Warm, dry with normal turgor. Normal color. MS/ Extremity: Pulses equal, no cyanosis. Neurovascular intact. Full, normal range of motion. Neuro: Awake and alert, GCS 15, oriented to person, place, time, and situation. Moves all extremities. Normal gait. 15:36 ECG was reviewed by the Attending Physician. Vital Signs: 14:14 BP 113 / 79; Pulse 52; Resp 20; Temp 98.2; Pulse Ox 92% ; Weight 84.82 kg; Height 5 ft. kb3 7 in. (170.18 cm); Pain 6/10; 14:30 BP 128 / 85; Pulse 110; Resp 19; Pulse Ox 90% on R/A; bp 15:30 BP 119 / 87; Pulse 87; Resp 19; Pulse Ox 90% on R/A; bp 16:30 BP 139 / 90; Pulse 92; Resp 18; Pulse Ox 91% ; bp 17:30 BP 124 / 83; Pulse 96; Resp 21; Pulse Ox 92% on R/A; bp 14:14 Body Mass Index 29.29 (84.82 kg, 170.18 cm) kb3 MDM: 14:25 Patient medically screened. kb 15:51 Data reviewed: vital signs, nurses notes. kb 16:19 ED course: Reviewed recent discharge summary and cardiology consult note with Dr Rao. kb Pt was discharged on 10/09, was seen by Dr Coulter on 10/08. Dr Rao recommends 2 hour repeat troponin and follow up with [facility] on outpatient basis if normal. . 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 10/11 14:25 Order name: Basic Metabolic Panel; Complete Time: 15:21 kb 10/11 14:25 Order name: CBC with Diff; Complete Time: 14:48 kb 10/11 14:25 Order name: Magnesium; Complete Time: 15:21 kb 10/11 14:25 Order name: NT PRO-BNP; Complete Time: 15:21 kb 10/11 14:25 Order name: Troponin HS; Complete Time: 15:21 kb 10/11 16:07 Order name: Troponin High Sensitivity; Complete Time: 17:02 kb 10/11 14:25 Order name: XRAY Chest (1 view); Complete Time: 15:21 kb 10/11 14:25 Order name: EKG; Complete Time: 14:26 kb 10/11 14:25 Order name: Cardiac monitoring; Complete Time: 14:28 kb 10/11 14:25 Order name: EKG - Nurse/Tech; Complete Time: 14:28 kb 10/11 14:25 Order name: IV Saline Lock; Complete Time: 14:28 kb 10/11 14:25 Order name: Labs collected and sent; Complete Time: 14:28 kb 10/11 14:25 Order name: O2 Per Protocol; Complete Time: 14:28 kb 10/11 14:25 Order name: O2 Sat Monitoring; Complete Time: 14:28 kb EC:36 Rate is 113 beats/min. Rhythm is regular. Left axis deviation noted. ID interval is kb prolonged at 224 msec. QRS interval is normal at 140 msec. QT interval is normal at 488 msec. Administered Medications: No medications were administered Disposition: 18:55 Co-signature as Attending Physician, Jayme Rao MD. rn Disposition Summary: 10/11/22 17:02 Discharge Ordered Location: Home kb Condition: Stable kb Diagnosis - Chest pain, unspecified kb Followup: kb - With: Emergency Department - When: As needed - Reason: Worsening of condition Followup: kb - With: Private Physician - When: 2 - 3 days - Reason: Recheck today's complaints, Continuance of care, Re-evaluation by your physician Discharge Instructions: - Discharge Summary Sheet kb - Nonspecific Chest Pain, Adult, [id number] kb Forms: - Medication Reconciliation Form kb - Thank You Letter kb - Antibiotic Education kb - Prescription Opioid Use kb Signatures: Dispatcher [employer] EDMS Indira Loya, CHILD CARE PROVIDER-C CHILD CARE PROVIDER-Ckb Jayme Rao MD MD rn Smirch, Shelby RN MADELEINE Collins Monte RN RN bp Bradberry, Kelly, RN RN kb3 Corrections: (The following items were deleted from the chart) 15:37 15:36 Rate is 113 beats/min. Rhythm is regular. QRS [place] is Normal. ID interval is kb prolonged at 224 msec. QRS interval is normal at 140 msec. QT interval is normal at 488 msec. kb
--- NOTE | 2022-10-11 17:03 | ER ---
Nurse's Notes [facility] Name: José Pat Age: 72 yrs Sex: Male : 1950 Arrival Date: 10/11/2022 Time: 14:07 Bed 4 Private MD: Diagnosis: Chest pain, unspecified Presentation: 10/11 14:14 Chief complaint: Patient states: substernal CP that began around 0700 this morning. kb3 Denies N/V/sweating. Coronavirus screen: Vaccine status: Patient reports being unvaccinated. Client denies travel out of the [place] in the last 14 days. Ebola Screen: Patient negative for fever greater than or equal to 101.5 degrees Fahrenheit, and additional compatible Ebola Virus Disease symptoms Patient denies exposure to infectious person. Patient denies travel to an Ebola-affected area in the 21 days before illness onset. Initial Sepsis Screen: Does the patient meet any 2 criteria? No. Patient's initial sepsis screen is negative. Does the patient have a suspected source of infection? No. Patient's initial sepsis screen is negative. Risk Assessment: Do you want to hurt yourself or someone else? Patient reports no desire to harm self or others. Onset of symptoms was October 11, 2022 at 07:00. 14:14 Method Of Arrival: EMS: [facility] kb3 14:14 Acuity: KIT 3 kb3 Triage Assessment: 14:14 General: Appears in no apparent distress. Behavior is calm, cooperative. Pain: kb3 Complains of pain in mid-sternal area Pain does not radiate. Pain currently is 6 out of 10 on a pain scale. Cardiovascular: Reports chest pain, Heart tones present Capillary refill is > 3 seconds Clubbing of nail beds Patient's skin is warm and dry. Respiratory: No deficits noted. Historical: - Home Meds: 17:36 Eliquis Oral [Active]; Insulin: Lantus Sub-Q [Active]; tamsulosin 0.4 mg Oral cap bp [Active]; - PMHx: 14:08 Atrial fibrillation; CHF; COPD; Diabetes - IDDM; ss - Immunization history:: Adult Immunizations unknown, Client reports having NOT received the Covid vaccine. Last tetanus immunization: unknown. - Social history:: Smoking status: Patient reports the use of cigarette tobacco products, smokes one-half pack cigarettes per day. Screenin:30 Abuse screen: Denies threats or abuse. Denies injuries from another. Nutritional bp screening: No deficits noted. Tuberculosis screening: No symptoms or risk factors identified. Fall Risk None identified. Assessment: 14:30 General: PT RECD FROM TRIAGE. bp 14:30 Pain: Pain began 1 day ago. bp 16:00 Reassessment: No changes from previously documented assessment. Patient and/or family bp updated on plan of care and expected duration. Pain level reassessed. 17:30 Reassessment: PT DC HOME AMBULATORY. bp Vital Signs: 14:14 BP 113 / 79; Pulse 52; Resp 20; Temp 98.2; Pulse Ox 92% ; Weight 84.82 kg; Height 5 ft. kb3 7 in. (170.18 cm); Pain 6/10; 14:30 BP 128 / 85; Pulse 110; Resp 19; Pulse Ox 90% on R/A; bp 15:30 BP 119 / 87; Pulse 87; Resp 19; Pulse Ox 90% on R/A; bp 16:30 BP 139 / 90; Pulse 92; Resp 18; Pulse Ox 91% ; bp 17:30 BP 124 / 83; Pulse 96; Resp 21; Pulse Ox 92% on R/A; bp 14:14 Body Mass Index 29.29 (84.82 kg, 170.18 cm) kb3 ED Course: 14:07 Patient arrived in ED. rg4 14:08 Arm band placed on right wrist. ss 14:17 Triage completed. kb3 14:24 Collins Monte, RN is Primary Nurse. bp 14:25 Indira Loya FNP-C is PHCP. kb 14:25 Jayme Rao MD is Attending Physician. kb 14:30 Patient has correct armband on for positive identification. Bed in low position. Call bp light in reach. Side rails up X2. Client placed on continuous cardiac and pulse oximetry monitoring. NIBP monitoring applied. 14:30 Maintain EMS IV. Dressing intact. Good blood return noted. Site clean \T\ dry. Gauge \T\ bp site: 20 G LEFT FA. 15:05 XRAY Chest (1 view) In Process Unspecified. EDMS 17:32 No provider procedures requiring assistance completed. IV discontinued, intact, bp bleeding controlled, No redness/swelling at site. Pressure dressing applied. 17:35 Patient maintains SpO2 saturation greater than 95% on room air. bp Administered Medications: No medications were administered Outcome: 17:02 Discharge ordered by MD. luevano 17:33 Discharged to home bp 17:33 Condition: stable 17:33 Discharge instructions given to patient, Instructed on discharge instructions, follow up and referral plans. Demonstrated understanding of instructions, follow-up care. 17:39 Patient left the ED. bp Signatures: Dispatcher [employer] EDMS Indira Loya, CABLE INSTALLER REPAIRER HELPER-C CABLE INSTALLER REPAIRER HELPER-Kayla Merritt, RN RN Mansi Solano rg4 Collins Monte RN RN Zulema Simmons, RN RN kb3
[2022-10-11 17:43] VITALS: TEMP 98.2
[2022-10-11 17:48] VITALS: BP 124/83; O2SAT 92
--- NOTE | 2022-10-14 13:55 | EKG ---
Test Date: 2022-10-11 Test Time: 14:22:16 Nursing Home Physician: THERESE MEASUREMENT RESULTS: Intervals: Rate: 113 [place]: 224 QRSD: 140 QT: 356 QTc: 488 [place]: P: [place]: 224 QRS: 265 T: 48 INTERPRETIVE STATEMENTS: Sinus tachycardia with 1st degree AV block Right bundle branch block Inferior infarct, age undetermined Anterior infarct, age undetermined Abnormal ECG Compared to ECG 10/07/2022 17:52:46 Atrial premature complex(es) no longer present Myocardial infarct finding still present Electronically Signed On 10-14-22 13:51:21 HEALTHCARE SCIENCE SPECIALIST by Gianluca Garcia
== END 2022-10-11 17:39 | disposition home or self-care (01) ==
LOC: ER 13:52
DX: R07.89 Other chest pain (principal); I48.91 Unspecified atrial fibrillation; Z79.01 Long term (current) use of anticoagulants; I50.9 Heart failure, unspecified; F17.210 Nicotine dependence, cigarettes, uncomplicated; E11.9 Type 2 diabetes mellitus without complications; Z79.4 Long term (current) use of insulin
CPT/HCPCS: 36415; 71045; 80048; 83735; 83880; 84484; 85025; 93005; 99284

== ENCOUNTER 2022-10-15 18:50 | Inpatient (IN) | payer OTHER ==
--- OUTSIDE RECORDS SUMMARY | 2022-10-15 18:56 | XMS REPORT | Continuity of Care Document ---
:1950 Author Organization [facility] t Address [address] [place] [address] Care Team Providers Name Role Phone Pcp, Patient Does Not Have A Primary Care Physician [phone] Attending Clinician Unavailable Meghana Ayala Attending Clinician Unavailable Jose Kim Rahil Attending Clinician Unavailable Jose Kim Attending Clinician Unavailable La Foster RN Attending Clinician Unavailable Charlene Butt DO Attending Clinician Atul Stephens MD Attending Clinician Berna Alcantar MD Attending Clinician [phone] BERNA ALCANTAR Attending Clinician Unavailable Orlando Cannon MD Attending Clinician [id number] Admitting Clinician Unavailable Jose Kim Rahil Admitting Clinician Unavailable Berna Alcantar MD Admitting Clinician [phone] BERNA ALCANTAR Admitting Clinician Unavailable Payers Payer Name Policy Type Policy Number Effective Date Expiration Date S cindy [facility] [id number] Problems Condition Condition Condition Status Onset Resolution [...] Added automatic ally from request for surgery [id number] CHF CHF Problem Active Common (congestiv (congestiv Sp anabela e heart e heart - CHI failure) failure) [facility] Hypertensi Hypertensi Problem Active C ommon on on Spirit - CHI [facility] Diabetes Diabetes Problem Active Commo n type 2, type 2, Spirit controlled controlled [facility] COPD COPD Problem Active Common (chronic (chronic Spirit obstructiv obstructiv - CHI e e pulmonary pulmonary [place] s disease) disease) [facility] Nicotine Nicotine Problem Active Commo n dependence dependence Sp anabela - [facility] Seasonal Seasonal Problem Active Commo n allergic allergic Spirit rhinitis rhinitis - [facility] Adjustment Adjustment Problem Active C ommon disorder disorder Spirit with with - [facility]I depressed depressed [facility] Chronic Chronic Problem Active Common fatigue fatigue Spirit [facility] Type 2 Type 2 Problem Active Common diabetes diabetes Spirit mellitus mellitus - [facility]I with with [facility] hyperglyce Anupama kes marci, marci, Medical without without Center long-term long-term current current use of use of insulin insulin Allergies, Adverse Reactions, Alerts Allergy Allergy Status Severity Reaction(s) Onset Inactive Treating Comm ents Source Name Type Date Date Clinician NO KNOWN Drug Active Univers ALLERGIE Class ity of S [facility] Social History Social Habit Start Date Stop Date Quantity Comments Source History of Cigarette Smoker Universi ty of tobacco use [place] [facility] History SDOH Food 2022-07-29 2022-07-29 1 Univers ity of Worry 00:00:00 00:00:00 [place] [facility] History SDOH Food 2022-07-29 2022-07-29 1 Univers ity of Scarcity 00:00:00 00:00:00 [place] [facility] History SDOH 2022-07-29 2022-07-29 2 University o f Transport Med 00:00:00 00:00:00 [place] [facility] History [facility] 2022-07-29 2022-07-29 2 University o f Transport Non-Med 00:00:00 00:00:00 [place] [facility] edical Branch Tobacco use and 2022-07-21 2022-07-21 Smokeless tobacco Un iversity of exposure 00:00:00 00:00:[address] [facility] Exposure to 2022-07-10 2022-07-20 Not sure University of SARS-CoV-2 00:00:00 10:56:00 [facility] (event) Branch Sex Ass[birth year] At [birth year] Universit y of 00:00:00 00:00:00 [facility] Smoking Status Start Date Stop Date Source Smokes tobacco daily 2022-07-21 00:00:[address] [facility] Medications Ordered Filled Start Stop Current [...] Until Discontinu ed, Routine furosemide 2021-0 Yes [id number] 40mg Take 1 Univers 40 mg 9-18 tablet by ity of tablet 00:00: mouth in [place] 00 the Medical morning Branch and 1 tablet in the evening. metoprolol 2021-0 Yes [id number] 50mg Take 1 Univers succinate 9-18 tablet by ity o f XL 50 mg 24 00:00: mouth in [place] hr tablet 00 the Medical morning. Branch spironolact 2021-0 Yes [id number] 25mg Take 1 Univers one 25 mg 9-18 tablet by ity o f tablet 00:00: mouth in [place] 00 the Medical morning. Branch furosemide 2021-0 Yes [id number] 40mg Take 1 Univers 40 mg 9-18 tablet by ity of tablet 00:00: mouth in [place] 00 the Medical morning Branch and 1 tablet in the evening. metoprolol 2021-0 Yes [id number] 50mg Take 1 Univers succinate 9-18 tablet by ity o f XL 50 mg 24 00:00: [place] hr tablet 00 the Medical morning. Branch spironolact 2021-0 Yes [id number] 25mg Take 1 Univers one 25 mg 9-18 tablet by ity o f tablet 00:00: mouth in [place] 00 the Medical morning. Branch furosemide 2021-0 Yes [id number] 40mg Take 1 Univers 40 mg 9-18 tablet by ity of tablet 00:00: mouth in [place] 00 the Medical morning Branch and 1 tablet in the evening. metoprolol 2021-0 Yes [id number] 50mg Take 1 Univers succinate 9-18 tablet by ity o f XL 50 mg 24 00:00: [place] hr tablet 00 the Medical morning. Branch spironolact 2021-0 Yes [id number] 25mg Take 1 Univers one 25 mg 9-18 tablet by ity o f tablet 00:00: mouth in [place] 00 the Medical morning. Branch aspirin 2021-0 Yes 81mg Take 81 mg Univ ers (ASPIR-LOW 9-17 by mouth 2 ity of ORAL) 21:46: (two) [place] 23 times Medical daily. Branch insulin 0 Yes 15U inject 15 Unive rs glargine,hu 9-17 Units ity of m.rec.anlog 21:46: under the [place] (LANTUS 23 skin. Medical U-100 Branch INSULIN SC) losartan 25 2021-0 Yes 1{tbl} Take 1 Un rita mg tablet 9-17 tablet by ity o f 21:46: mouth in [place] 23 the Medical morning. Branch montelukast 0 Yes 1{tbl} Take 1 Un rita 10 mg 9-17 tablet by ity of tablet 21:46: mouth in [place] 23 the Medical morning. Branch albuterol 0 Yes 2{puff} Take 2 Uni vers sulfate 9-17 Puffs by ity of (PROAIR 21:46: mouth as [place] RESPICLICK) 23 needed for Me dical 90 Cough. Branch mcg/actuati Cough, on AePB wheezing aspirin 0 Yes 81mg Take 81 mg Univ ers (ASPIR-LOW 9-17 by mouth 2 ity of ORAL) 21:46: (two) [place] 23 times Medical daily. Branch insulin Yes 15U inject 15 Unive rs glargine,hu 9-17 Units ity of m.rec.anlog 21:46: under the [place] (LANTUS 23 skin. Medical U-100 Branch INSULIN SC) losartan 25 0 Yes 1{tbl} Take 1 Un rita mg tablet 9-17 tablet by ity o f 21:46: mouth in [place] 23 the Medical morning. Branch montelukast 0 Yes 1{tbl} Take 1 Un rita 10 mg 9-17 tablet by ity of tablet 21:46: mouth in [place] 23 the Medical morning. Branch albuterol 0 [...] by ity o f 21:46: mouth in [place] [id number] the Medical morning. Branch montelukast Yes 1{tbl} Take 1 Un rita 10 mg 9-17 tablet by ity of tablet 21:46: mouth in [place] 23 the Medical morning. Branch albuterol Yes 2{puff} Take 2 Uni vers sulfate 9-17 Puffs by ity of (PROAIR 21:46: mouth as [place] RESPICLICK) 23 needed for Me dical 90 [...] Branch 07/26/22 at 2030, Routine atorvastati Yes [id number] 40mg Take 1 Univers n 40 mg 9-17 tablet by ity of tablet 00:00: mouth at [place] 00 bedtime. Medical Branch apixaban Yes 1358 5mg Take 1 Univers (ELIQUIS) 5 9-17 tablet by ity of mg tablet 00:00: [place] 00 the Medical morning Branch and 1 tablet in the evening. Indication s: atrial fibrillati on atorvastati Yes [id number] 40mg Take 1 Univers n 40 mg 9-17 tablet by ity of tablet 00:00: mouth at [place] 00 bedtime. Medical Branch apixaban Yes 1358 5mg Take 1 Univers (ELIQUIS) 5 9-17 tablet by ity of mg tablet 00:00: [place] 00 the Medical morning Branch and 1 tablet in the evening. Indication s: atrial fibrillati on atorvastati Yes [id number] 40mg Take 1 Univers n 40 mg 9-17 tablet by ity of tablet 00:00: mouth at [place] 00 bedtime. Medical Branch apixaban Yes 1358 [...] ed insulin 2021- No 15U 15 Units, [facility] ers glargine 07-26 Subcutaneo ity of (LANTUS 14:00: 04:46 us, DAILY, [place] as U-100) 00 :24 First dose Medical injection (after Branch 15 Units last modificati on) on Fri07/26/22 at 0900, Until Discontinu ed KCL 2021- No 20meq 20 mEq, Univers (KLOR-CON 07-26 Oral, ity of M20) tablet 13:30: 14:05 ONCE, 1 [place] 20 mEq 00 :00 dose, On Medical Fri [place] 07/26/22 at 0830, Routine Sliding Yes Subcutaneo Univ ers Scale 07-26 us, Q6H, ity of Insulin - 01:00: First dose [place] Lispro 00 (after Medical (HumaLOG) + last Branch Fsbg modificati Testing on) on [facility] 07/25/22 at 2000, Until Discontinu ed, Routine Sliding 2021- No Subcutaneo Uni vers Scale 07-26 us, Q6H, ity of Insulin - 01:00: 04:46 First dose [place] Lispro 00 :24 (after Medical (HumaLOG) + last Branch Fsbg modificati Testing on) on [facility] 07/25/22 at 2000, Until Discontinu ed, Routine magnesium 2021- No 2g 2 g, IV [facility] ers sulfate in 07-26 Piggyback, it y [...] mg 00 :46 First dose Medical on [facility] Branch 07/25/22 at 1100, Until Discontinu [...] LORI insulin 2021- No 2U 2 Units, [facility] lispro 07-24 Subcutaneo ity of (human) [...] Routine insulin 2021- No 3U 3 Units, [facility] glargine 07-24 Subcutaneo ity of (LANTUS 15:00: 14:27 us, ONCE, [place] U-100) 00 :00 1 dose, On Medical injection 3 Fri Branch Units 07/24/22 at 1000, Routine metoprolol Yes 50mg 50 mg, Unive rs succinate 07-24 Oral, ity of XL (TOPROL 14:15: DAILY, [place] XL) tablet 00 First dose Med ical 50 mg on Fri Branch 07/24/22 at 0915, Until Discontinu ed, Routine metoprolol 2021- No 50mg 50 mg, Univ ers succinate 07-24 Oral, ity of XL (TOPROL 14:15: 04:46 DAILY, [facility] s XL) tablet 00 :24 [...] Rang e, Dosing and Testing: &nbs p;FOR [place], [facility], AND [facility] ONLY [...] reached.&n bsp; &nbs p; __ &n bsp;FOR [facility] ONLY - aPTT < 40: [...] Rang e, Dosing and Testing: &nbs p;[facility], AND [facility] ONLY [...] 53 Starting Medi jose tablet 1 on [facility] tablet 07/23/22 at 1031, Until Discontinu ed, Routine, Pain (scale 4-6) HYDROcodone 0 2021- No 1{tbl} 1 tablet, Univers -acetaminop 07-23 09-18 Oral, ity of hen (NORCO 15:31: 04:46 Q6HPRN, [place] as 5) 5-325 mg 53 :24 Starting Medi jose tablet 1 on Fri [place] tablet 07/23/22 at 1031, Until 07/27/22 at [...] [place] mg 00 First dose Medical on [facility] 07/22/22 at 0900, Until Discontinu ed, Routine montelukast Yes 10mg 10 mg, Univ ers (SINGULAIR) 07-22 Oral, ity of tablet 10 14:00: DAILY, [place] mg 00 First dose Medical on [facility] 07/22/22 at 0900, Until Discontinu ed, Routine spironolact 2021- No 25mg 25 mg, Uni vers one 07-22 Oral, ity of (ALDACTONE) 14:00: 04:46 DAILY, [place] tablet 25 00 :24 First dose Medi jose mg on [facility] 07/22/22 at 0900, Until Discontinu ed, Routine aspirin No 81mg 81 mg, Univers chewable 07-22 Oral, ity of tablet 81 14:00: 04:46 DAILY, [place] mg 00 :24 First dose Medical on [facility] 07/22/22 at 0900, Until Discontinu ed, Routine losartan 2021- No 25mg 25 mg, Univer s (COZAAR) 07-22 Oral, ity of tablet 25 14:00: 04:46 DAILY, [place] mg 00 :24 First dose Medical on [facility] 07/22/22 at 0900, Until Discontinu ed, Routine montelukast 2021- No 10mg 10 mg, Uni vers (SINGULAIR) 07-22 Oral, ity of tablet 10 14:00: 04:46 DAILY, [place] mg 00 :24 First dose Medical on [facility] 07/22/22 at 0900, Until Discontinu ed, Routine metoprolol 2021- No 50mg 50 mg, Univ ers tartrate 07-22 Oral, BID ity o f (LOPRESSOR) 13:00: 14:10 MEALS, [place] as tablet 50 00 :14 First dose Medi jose mg on [facility] 07/22/22 at 0800, Until Discontinu ed, Routine atorvastati Yes 40mg 40 mg, Univ ers n (LIPITOR) 07-22 Oral, QHS, it y of tablet 40 02:00: First dose [place] mg 00 on [facility] 07/21/22 at Branch 2100, Until Discontinu ed, Routine atorvastati 2021- No 40mg 40 mg, Uni vers n (LIPITOR) 07-22 Oral, QHS, i ty of tablet 40 02:00: 04:46 First dose [place] mg 00 :24 on [facility] 07/21/22 at Branch 2100, Until Discontinu ed, [...] dose Medical (after Branch last reorder) on [place] 07/21/22 at 2000, Until Discontinu ed, LORI enoxaparin 2021- No 1mg/kg 100 mg Un rita (LOVENOX) 07-22 (rounded ity o f injection 01:00: 05:30 [place] 98.5 [place] 100 mg 00 :31 mg = 1 Medical mg/kg Branch ?98.5 kg), Subcutaneo us, Q12H, First dose (after last modificati on) on [place] 07/21/22 at 2000, Until Discontinu ed, Routine sulfur 2021- No [id number] 5mL 5 mL, Unive rs hexafluorid 07-21 Intravenou i ty of e microsphr 15:45: 15:45 s, ONCE, 1 [place] (LUMASON) 00 :00 dose, On Medica l injection 5 Sun Branch mL 07/21/22 at 1045, Routine
member service specialist approving Restricted medication : ANA LUISA GRIMM [...] dose [place] Lispro 00 :26 on [facility] Medical (HumaLOG) + 07/20/22 at Br anch Fsbg 1900, Testing Until Discontinu ed, Routine glucagon Yes 1mg 1 mg, Univers (GLUCAGEN 07-20 Intramuscu ity of DIAGNOSTIC 23:48: lar, PRN, [place] KIT) 16 Starting Medical injection 1 on [facility] Branch 07/20/22 at 1848, Until Discontinu ed, LORI, Blood Glucose < or = 70 mg/dL and patient is unable to swallow or has mental changes. dextrose 50 Yes 25mL 25 mL, Univ ers % in water 07-20 Slow IV ity of (D50W) 23:48: Push, PRN, [place] injection 16 Starting Medica l 25 mL on [facility] Branch 07/20/22 at 1848, Until Discontinu ed, LORI, Blood Glucose < or = 70 mg/dL and patient is unable to swallow or has mental status changes. glucagon 2021- No 1mg 1 mg, Univers (GLUCAGEN 07-2018 Intramuscu ity of DIAGNOSTIC 23:48: 04:46 lar, PRN, [place] KIT) 16 :24 Starting Medical injection 1 on [facility] Branch mg 07/20/22 at 1848, [...] status changes. metoprolol No 25mg 25 mg, [facility] ers tartrate 07-20 Oral, Q6H, ity of [...] 00 :00 dose, On Medica l mg [facility] Branch 07/20/22 at 1300, LORI furosemide 2021- No 20mg 20 mg, IV U nivers (LASIX) 07-20 Push, ity of injection 17:58: 18:02 ONCE, 1 [place] 20 mg 00 :00 dose, On Medical [facility] Branch 07/20/22 at 1300, LORI NaCl 0.9% 2021- No 500mL at 999 Univ ers (NS) bolus 07-20 mL/hr, 500 it y of infusion 17:00: 17:15 mL, IV [place] 500 mL 00 :00 Piggyback, Medical ONCE, 1 Branch dose, On [facility] 07/20/22 at 1200, STAT metoprolol 2021- No 5mg 5 mg, Slow Univers (LOPRESSOR) 07-20 IV Push, ity of injection 5 16:15: 16:16 ONCE, 1 [place] mg 00 :00 dose, On Medical [facility] Branch 07/20/22 at 1115, LORI Trelegy Trelegy 2019-0 2020- No Meghana 1 puff Com mon Ellipta Ellipta 2-12 06-11 [place] Spirit 00:00: 00:00 - CHI 00 :00 [facility] HydrOXYzine HydrOXYzine Yes Meghana 1 tablet Common HCl HCl 05-11 [place] as needed Spirit 00:00: - CHI 00 [facility] Ozempic Ozempic 2020- No Meghana 0.5 mg Com mon 05-11 0824 [place] Spirit 00:00: 00:00 - CHI 00 :00 [facility] Januvia Januvia Yes Meghana as Common 11-11 [place] directed Spirit 00:00: - CHI 00 [facility] ProAir ProAir Yes Meghana 2 puffs as Comm on RespiClick RespiClick [place] needed [facility] [address] Yes Meghana 1 capsule Com mon [place] [facility] Montelukast Montelukast Yes Meghana 1 tablet Common Sodium Sodium [place] in the Spirit evening [facility] Lipitor Lipitor Yes Meghana 1 tablet Comm on [place] [facility] Losartan Losartan Yes Meghana 1 tablet Co mmon Potassium Potassium [place] Spir it [facility] Metoprolol Metoprolol Yes Meghana 1 tablet Common Tartrate Tartrate [place] with food S pirit [facility] Metformin Metformin Yes Meghana 1 tablet Common HCl HCl [place] with a [facility] meal [facility] Immunizations Ordered Immunization Filled Immunization Date Status Commen ts Source Name Name FLUZONE HIGH DOSE FLUZONE HIGH DOSE 2019-09-14 Completed Common Spirit OVER 65 OVER 65 00:00:00 [facility] Vital Signs Vital Name Observation Time Observation Value Comments Source Systolic blood 2022-07-28 01:43:00 99 mm[Hg] Univer sity [facility] Diastolic blood 2022-07-28 01:43:00 58 mm[Hg] [facility] rate 2022-07-28 01:40:00 97 /min [facility] Body temperature 2022-07-28 01:40:00 36.56 Melvi [facility] Respiratory rate 2022-07-28 01:40:00 18 /min [facility] Oxygen saturation in 2022-07-28 01:40:00 90 /min [facility] Arterial blood by [facility] Pulse oximetry Branch Body height 2022-07-26 17:49:00 172.7 cm Universi [facility] Body weight 2022-07-26 17:49:00 96.163 kg Universi [facility] BMI 2022-07-26 17:49:00 32.23 kg/m2 [facility] Systolic blood 2022-07-26 23:31:00 102 mm[Hg] Univer sity of pressure [facility] Diastolic blood 2022-07-26 23:31:00 59 mm[Hg] [facility] Heart rate 2022-07-26 23:31:00 85 /min [facility] Body temperature 2022-07-26 23:31:00 36.56 Melvi [facility] Respiratory rate 2022-07-26 23:24:00 19 /min [facility] Oxygen saturation in 2022-07-26 23:24:00 93 /min [facility] Arterial blood by [facility] Pulse oximetry Branch Body height 2022-07-26 17:49:00 172.7 cm Universi [facility] Body weight 2022-07-26 17:49:00 96.163 kg [facility] BMI 2022-07-26 17:49:00 32.23 kg/m2 [facility] Procedures Procedure Date / Time Performing Clinician Source Performed POCT GLUCOSE (AUTOMATED) 2022-07-27 16:45:00 Berna Alcantar [facility] POCT GLUCOSE (AUTOMATED) 2022-07-27 16:45:00 Berna Alcantar [facility] MAGNESIUM 2022-07-27 10:46:00 Colt Foxssica [facility] BASIC METABOLIC PANEL (NA, 2022-07-27 10:46:00 Flora Fox [facility] K, CL, CO2, GLUCOSE, BUN, Medica l Branch CREATININE, CA) N-TERMINAL PRO-BNP 2022-07-27 10:46:00 Flora Fox [facility] MAGNESIUM 2022-07-27 10:46:00 Dominique [facility] Branch BASIC METABOLIC PANEL (NA, 2022-07-27 10:46:00 Flora Fox [facility] K, CL, CO2, GLUCOSE, BUN, Medica l Branch CREATININE, CA) N-TERMINAL PRO-BNP 2022-07-27 10:46:00 Dominique [facility] y of [facility] POCT GLUCOSE (AUTOMATED) 2022-07-27 10:38:00 Keo Alcantarm Uni versity of [facility] [place] POCT GLUCOSE (AUTOMATED) 2022-07-27 10:38:00 KhKeo fernandezm Uni versity of [facility] POCT GLUCOSE (AUTOMATED) 2022-07-27 04:51:00 KhbettyfeKeom Uni versity of [facility] POCT GLUCOSE (AUTOMATED) 2022-07-27 04:51:00 Keo Alcantarm Uni versity of [facility] POCT GLUCOSE (AUTOMATED) 2022-07-27 01:10:00 KhalifeDavidsam Uni versity of [facility] POCT GLUCOSE (AUTOMATED) 2022-07-27 01:10:00 KhalifeDavidsam Uni versity of [facility] POCT GLUCOSE (AUTOMATED) 2022-07-26 23:37:00 David Alcantarsam Uni versity of [facility] POCT GLUCOSE (AUTOMATED) 2022-07-26 23:37:00 Berna Alcantar Uni versity of [facility] ACTIVATED PARTIAL THRMPLAS 2022-07-26 23:10:00 [facility] PART[facility] TH[facility]PL[facility] 2022-07-26 23:10:00 [facility] CARDIAC CATHETERIZATION 2022-07-26 21:16:04 [facility] CARDIAC CATHETERIZATION 2022-07-26 21:16:04 Katharine [facility] ersity of [facility] CARDIAC CATHETERIZATION 2022-07-26 21:16:04 Katharine [facility] ersity of [facility] CARDIAC CATHETERIZATION 2022-07-26 21:16:04 Katharine [facility] ersity of [facility] CARDIAC CATHETERIZATION 2022-07-26 21:16:04 Katharine [facility] ersity of [facility] CARDIAC CATHETERIZATION 2022-07-26 21:16:04 Katharine [facility] ersity of [facility] CARDIAC CATHETERIZATION 2022-07-26 21:16:04 Katharine [facility] ersity of [facility] CARDIAC CATHETERIZATION 2022-07-26 21:16:04 Katharine [facility] ersity of [facility] CATH PROCEDURE LOG 2022-07-26 20:55:04 Katharine [facility] of [facility] CATH PROCEDURE LOG 2022-07-26 20:55:04 Katharine [facility] of [facility] POCT GLUCOSE (AUTOMATED) 2022-07-26 16:20:00 Berna Alcantar Uni versity of [facility] POCT GLUCOSE (AUTOMATED) 2022-07-26 16:20:00 Berna Alcantar Uni versity of [facility] POCT GLUCOSE (AUTOMATED) 2022-07-26 12:30:00 Berna Alcantar Uni versity of [facility] POCT GLUCOSE (AUTOMATED) 2022-07-26 12:30:00 Berna Alcantar Uni versity of [facility] POCT GLUCOSE (AUTOMATED) 2022-07-26 11:08:00 Berna Alcantar Uni versity of [facility] POCT GLUCOSE (AUTOMATED) 2022-07-26 11:08:00 Berna Alcantar Uni versity of [facility] POCT GLUCOSE (AUTOMATED) 2022-07-26 08:52:00 Berna Alcantar Uni versity of [facility] POCT GLUCOSE (AUTOMATED) 2022-07-26 08:52:00 Berna Alcantar Uni versity of [facility] [place] MAGNESIUM 2022-07-26 05:35:00 Tobias [facility] BASIC METABOLIC PANEL (NA, 2022-07-26 05:35:[address] [facility] K, CL, CO2, GLUCOSE, BUN, Medica l Branch CREATININE, CA) ACTIVATED PARTIAL THRMPLAS 2022-07-26 05:35:00 Evelio Soni [facility] [place] EXTRA TUBE LAV 2022-07-26 05:35:00 Katharine [facility] o f [facility] MAGNESIUM 2022-07-26 05:35:00 Tobias [facility] BASIC METABOLIC PANEL (NA, 2022-07-26 05:35:[address] [facility] K, CL, CO2, GLUCOSE, BUN, Medica l Branch CREATININE, CA) ACTIVATED PARTIAL THRMPLAS 2022-07-26 05:35:00 Evelio Soni [facility] [place] EXTRA TUBE LAV 2022-07-26 05:35:00 Katharine [facility] o [facility] POCT GLUCOSE (AUTOMATED) 2022-07-26 05:20:00 [facility] 2022-07-26 05:20:00 [facility]SE (AUTOMATED) 2022-07-26 01:45:00 [facility] (AUTOMATED) 2022-07-26 01:45:00 [facility]UM 2022-07-25 22:15:00 Tobias [facility] BASIC METABOLIC PANEL (NA, 2022-07-25 22:15:[address] [facility] K, CL, CO2, GLUCOSE, BUN, Medica l Branch CREATININE, CA) ACTIVATED PARTIAL THRMPLAS 2022-07-25 22:15:00 Evelio Soni [facility] [place] MAGNESIUM 2022-07-25 22:15:00 Tobias [facility] BASIC METABOLIC PANEL (NA, 2022-07-25 22:15:[address] [facility] K, CL, CO2, GLUCOSE, BUN, Medica l Branch CREATININE, CA) ACTIVATED PARTIAL THRMPLAS 2022-07-25 22:15:00 Evelio Soni niversalberto [facility] [place] POCT GLUCOSE (AUTOMATED) 2022-07-25 21:22:00 Berna Alcantar [facility] POCT GLUCOSE (AUTOMATED) 2022-07-25 21:22:00 Berna Alcantar [facility] POCT GLUCOSE (AUTOMATED) 2022-07-25 20:46:00 Berna Alcantar Uni vers[facility] of [facility] POCT GLUCOSE (AUTOMATED) 2022-07-25 20:46:00 Berna Alcantar Uni vers[facility] of [facility] POCT GLUCOSE (AUTOMATED) 2022-07-25 17:09:00 Berna Alcantar [facility] POCT GLUCOSE (AUTOMATED) 2022-07-25 17:09:00 Berna Alcantar Uni versity of [facility] HB ECG ROUTINE & RHYTHM 2022-07-25 14:53:13 [facility] PART[facility] THRMPLAS 2022-07-25 14:53:00 Evelio Soni niversalberto [facility] [place] ACTIVATED PARTIAL THRMPLAS 2022-07-25 14:53:00 Evelio Soni niversalberto [facility] [place] POCT GLUCOSE (AUTOMATED) 2022-07-25 13:12:00 Berna Alcantar Uni vers[facility] of [facility] POCT GLUCOSE (AUTOMATED) 2022-07-25 13:12:00 Berna Alcantar [facility] vers[facility] MAGNESIUM 2022-07-25 11:36:00 Tobias [facility] BASIC METABOLIC PANEL (NA, 2022-07-25 11:36:[address] [facility] K, CL, CO2, GLUCOSE, BUN, Medica l Branch CREATININE, CA) CBC WITH DIFF 2022-07-25 11:36:00 Tobias [facility] MAGNESIUM 2022-07-25 11:36:00 Tobias [facility] BASIC METABOLIC PANEL (NA, 2022-07-25 11:36:[address] [facility] K, CL, CO2, GLUCOSE, BUN, Medica l Branch CREATININE, CA) CBC WITH DIFF 2022-07-25 11:36:00 Tobias [facility] ACTIVATED PARTIAL THRMPLAS 2022-07-25 05:15:00 Evelio Soni [facility] ACTIVATED PARTIAL THRMPLAS 2022-07-25 05:15:00 [facility] [place] POCT GLUCOSE (AUTOMATED) 2022-07-25 01:58:00 Berna Alcantar [facility] POCT GLUCOSE (AUTOMATED) 2022-07-25 01:58:00 Berna Alcantar Uni [facility] MAGNESIUM 2022-07-24 22:34:00 Tobias [facility] BASIC METABOLIC PANEL (NA, 2022-07-24 22:34:[address] [facility] K, CL, CO2, GLUCOSE, BUN, Medica l Branch CREATININE, CA) ACTIVATED PARTIAL THRMPLAS 2022-07-24 22:34:00 Evelio Soni [facility] [place] MAGNESIUM 2022-07-24 22:34:00 Tobias [facility] BASIC METABOLIC PANEL (NA, 2022-07-24 22:34:[address] [facility] K, CL, CO2, GLUCOSE, BUN, Medica l Branch CREATININE, CA) ACTIVATED PARTIAL THRMPLAS 2022-07-24 22:34:00 [facility] [place] POCT GLUCOSE (AUTOMATED) 2022-07-24 20:43:00 Berna Alcantar [facility] Branch POCT GLUCOSE (AUTOMATED) 2022-07-24 20:43:00 Berna Alcantar [facility] vers[facility] POCT GLUCOSE (AUTOMATED) 2022-07-24 17:11:00 Berna Alcantar [facility] POCT GLUCOSE (AUTOMATED) 2022-07-24 17:11:00 Berna Alcantar [facility] POCT GLUCOSE (AUTOMATED) 2022-07-24 14:11:00 Berna Alcantar [facility] POCT GLUCOSE (AUTOMATED) 2022-07-24 14:11:00 AvinashbettyBerna rodriguez Uni versity [facility] ACTIVATED PARTIAL THRMPLAS 2022-07-24 11:37:00 Evelio Soni [facility] [place] ACTIVATED PARTIAL THRMPLAS 2022-07-24 11:37:00 Evelio Soni [facility] [place] MAGNESIUM 2022-07-24 05:51:00 Evelio Soni [facility] BASIC METABOLIC PANEL (NA, 2022-07-24 05:51:00 Evelio Soni [facility] K, CL, CO2, GLUCOSE, BUN, Medica l Branch CREATININE, CA) PROTHROMBIN TIME / INR 2022-07-24 05:51:00 Evelio Soni [facility] ACTIVATED PARTIAL THRMPLAS 2022-07-24 05:51:00 Evelio Soni [facility] [place] MAGNESIUM 2022-07-24 05:51:00 Evelio Soni [facility] BASIC METABOLIC PANEL (NA, 2022-07-24 05:51:00 Evelio Soni [facility] K, CL, CO2, GLUCOSE, BUN, Medica l Branch CREATININE, CA) PROTHROMBIN TIME / INR 2022-07-24 05:51:00 Evelio Soni [facility] ACTIVATED PARTIAL THRMPLAS 2022-07-24 05:51:00 Evelio Soni [facility] [place] POCT GLUCOSE (AUTOMATED) 2022-07-24 [...] GLUCOSE (AUTOMATED) 2022-07-23 17:08:00 Atul Stephens Rafaela [facility] POCT GLUCOSE (AUTOMATED) 2022-07-23 12:46:00 Atul Stephens [facility] POCT GLUCOSE (AUTOMATED) 2022-07-23 12:46:00 Atul Stephens Rafael[facility] MAGNESIUM 2022-07-23 09:15:00 [facility]OLIC [facility] (NA, 2022-07-23 09:15:00 George Vizcaino [facility] K, CL, CO2, GLUCOSE, BUN, Medica l Branch CREATININE, CA) CBC WITH DIFF 2022-07-23 09:15:00 [facility] N-TERMINAL PRO-BNP 2022-07-23 09:15:00 George Vizcaino [facility] MAGNESIUM 2022-07-23 09:15:00 [facility] BASIC METABOLIC PANEL (NA, 2022-07-23 09:15:00 [facility], CL, CO2, GLUCOSE, BUN, Medica l Branch CREATININE, CA) CBC WITH DIFF 2022-07-23 09:15:00 [facility] N-TERMINAL PRO-BNP 2022-07-23 09:15:00 George Vizcaino [facility] POCT GLUCOSE (AUTOMATED) 2022-07-23 02:12:00 Atul Stephens [facility] POCT GLUCOSE (AUTOMATED) 2022-07-23 02:12:00 Atul Stephens [facility] POCT GLUCOSE (AUTOMATED) 2022-07-22 21:12:00 Atul Stephens [facility] POCT GLUCOSE (AUTOMATED) 2022-07-22 21:12:00 Atul Stephens [facility] POCT GLUCOSE (AUTOMATED) 2022-07-22 16:30:00 Atul Stephens [facility] POCT GLUCOSE (AUTOMATED) 2022-07-22 16:30:00 Atul Stephens [facility] POCT GLUCOSE (AUTOMATED) 2022-07-22 12:51:00 Atul Stephens [facility] POCT GLUCOSE (AUTOMATED) 2022-07-22 12:51:00 Atul Stephens [facility] PHOSPHORUS 2022-07-22 08:19:00 Atul Stephens [facility] MAGNESIUM 2022-07-22 08:19:00 [facility] HEPATIC FUNCTION PANEL 2022-07-22 08:19:00 Atul Stephens [facility] ([id number]) (ALB,T.PRO,BILI Medical Branch T,BU/BC,ALT,AST,ALK PHOS) BASIC METABOLIC PANEL (NA, 2022-07-22 08:19:00 Atul Stephens [facility] K, CL, CO2, GLUCOSE, BUN, Medica l Branch CREATININE, CA) CBC WITH DIFF 2022-07-22 08:19:00 [facility] N-TERMINAL PRO-BNP 2022-07-22 08:19:00 Atul Stephens [facility] PHOSPHORUS 2022-07-22 08:19:00 Atul Stephens [facility] MAGNESIUM 2022-07-22 08:19:00 Atul Stephens [facility] HEPATIC FUNCTION PANEL 2022-07-22 08:19:00 Atul Stephens [facility] ([id number]) (ALB,T.PRO,BILI Medical Branch T,BU/BC,ALT,AST,ALK PHOS) BASIC METABOLIC PANEL (NA, 2022-07-22 08:19:00 Atul Stephens [facility] K, CL, CO2, GLUCOSE, BUN, Medica l Branch CREATININE, CA) CBC WITH DIFF 2022-07-22 08:19:[address] [facility] N-TERMINAL PRO-BNP 2022-07-22 08:19:00 [facility] (AUTOMATED) 2022-07-22 01:44:00 Atul Stephens [facility] POCT GLUCOSE (AUTOMATED) 2022-07-22 01:44:00 Atul Stephens [facility] POCT GLUCOSE (AUTOMATED) 2022-07-21 21:52:00 Atul Stephens [facility] POCT GLUCOSE (AUTOMATED) 2022-07-21 21:52:00 Atul Stephens [facility] POCT GLUCOSE (AUTOMATED) 2022-07-21 16:43:00 Atul Stephens [facility] POCT GLUCOSE (AUTOMATED) 2022-07-21 16:43:00 Atul Stephens [facility] TRANSTHORACIC ECHO (TTE) 2022-07-21 15:28:00 Atul Stephens [facility] COMPLETE W/ CONTRAST Medical [facility] TRANSTHORACIC ECHO (TTE) 2022-07-21 15:28:00 Atul Stephens [facility] COMPLETE W/ CONTRAST Medical [facility] POCT GLUCOSE (AUTOMATED) 2022-07-21 15:00:00 Atul Stephens [facility] POCT GLUCOSE (AUTOMATED) 2022-07-21 15:00:00 Atul Stephens [facility] POCT GLUCOSE (AUTOMATED) 2022-07-21 13:04:00 Atul Stephens [facility] POCT GLUCOSE (AUTOMATED) 2022-07-21 13:04:00 Atul Stephens [facility] MAGNESIUM 2022-07-21 09:41:00 Atul Stephens [facility] TROPONIN I 2022-07-21 09:41:00 Atul Stephens [facility] BASIC METABOLIC PANEL (NA, 2022-07-21 09:41:00 [facility], CO2, GLUCOSE, BUN, Medica l Branch CREATININE, CA) LIPID PANEL (54307)(TOTAL 2022-07-21 09:41:00 Desmond [facility], [facility] TRIGLYCERIDES, HDL) CBC WITH DIFF 2022-07-21 09:41:00 [facility] N-TERMINAL PRO-BNP 2022-07-21 09:41:00 Atul Stephens [facility] MAGNESIUM 2022-07-21 09:41:00 Atul Stephens [facility] TROPONIN I 2022-07-21 09:41:00 Atul Stephens [facility] BASIC METABOLIC PANEL (NA, 2022-07-21 09:41:00 Atul Stephens [facility] [place] K, CL, CO2, GLUCOSE, BUN, Medica l Branch CREATININE, CA) LIPID PANEL (45528)(TOTAL 2022-07-21 09:41:00 Ana Luisa Grimm [facility] CHOLESTEROL, Medical Branch TRIGLYCERIDES, HDL) CBC WITH DIFF 2022-07-21 09:41:00 Atul Stephens [facility] N-TERMINAL PRO-BNP 2022-07-21 09:41:00 Atul Stephens [facility] POCT GLUCOSE (AUTOMATED) 2022-07-21 04:09:00 Atul Stephens [facility] POCT GLUCOSE (AUTOMATED) 2022-07-21 04:09:00 Atul Stephens [facility] BLOOD CULTURE SCREEN 2022-07-21 01:45:00 Atul Stephens [facility] BLOOD CULTURE WORKUP 2022-07-21 01:45:00 Atul Stephens [facility] GRAM POSITIVE BLOOD 2022-07-21 01:45:00 Atul Stephens [facility] PATHOGENS DNA [facility] PROBE-AEROBIC BLOOD CULTURE SCREEN 2022-07-21 01:45:00 Atul Stephens [facility] BLOOD CULTURE WORKUP 2022-07-21 01:45:00 Atul Stephens [facility] GRAM POSITIVE BLOOD 2022-07-21 01:45:00 Atul Stephens [facility] PATHOGENS DNA [facility] PROBE-AEROBIC POCT GLUCOSE (AUTOMATED) 2022-07-21 01:26:00 Atul Stephens [facility] POCT GLUCOSE (AUTOMATED) 2022-07-21 01:26:00 Atul Stephens [facility] BLOOD CULTURE SCREEN 2022-07-20 23:43:00 Atul Stephens [facility] BLOOD CULTURE SCREEN 2022-07-20 23:43:00 Atul Stephens [facility] POCT GLUCOSE (AUTOMATED) 2022-07-20 22:24:00 Atul Stephens [facility] POCT GLUCOSE (AUTOMATED) 2022-07-20 22:24:00 Atul Stephens [facility] URINALYSIS 2022-07-20 17:41:00 Cahrlene Butt [facility] URINALYSIS 2022-07-20 17:41:00 Charlene Butt [facility] XR CHEST 1 VW 2022-07-20 16:16:00 [facility] XR CHEST 1 VW 2022-07-20 16:16:00 [facility] TROPONIN I 2022-07-20 16:10:00 [facility] COMP. METABOLIC PANEL 2022-07-20 16:10:00 Charlene Butt [facility] ([id number]) [facility] CBC WITH DIFF 2022-07-20 16:10:00 [facility] GLYCOSYLATED HEMOGLOBIN 2022-07-20 16:10:00 Atul Stephens [facility] (A1C) Medical Branch PROTHROMBIN TIME / INR 2022-07-20 16:10:00 Charlene Butt [facility] ACTIVATED PARTIAL THRMPLAS 2022-07-20 16:10:00 Saniya Butt [facility] N-TERMINAL PRO-BNP 2022-07-20 16:10:00 Charlene Butt [facility] COVID-19 (ID NOW RAPID 2022-07-20 16:10:00 Charlene Butt [facility] TESTING) Medical Branch LAB ONLY COVID 2022-07-20 16:10:00 Charlene Butt [facility] TROPONIN I 2022-07-20 16:10:00 Charlene Butt [facility] COMP. METABOLIC PANEL 2022-07-20 16:10:00 Charlene Butt [facility] ([id number]) Medical Branch CBC WITH DIFF 2022-07-20 16:10:00 Charlene Butt [facility] GLYCOSYLATED HEMOGLOBIN 2022-07-20 16:10:00 Atul Stephens [facility] (A1C) Medical Branch PROTHROMBIN TIME / INR 2022-07-20 16:10:00 Charlene Butt [facility] ACTIVATED PARTIAL THRMPLAS 2022-07-20 16:10:00 Saniya Butt [facility] N-TERMINAL PRO-BNP 2022-07-20 16:10:00 Charlene Butt [facility] COVID-19 (ID NOW RAPID 2022-07-20 16:10:00 Charlene Butt [facility] TESTING) Medical Branch LAB ONLY COVID 2022-07-20 16:10:00 Charlene Butt [facility] HB ECG ROUTINE & RHYTHM 2022-07-20 16:05:41 Charlene Butt [facility] STRIP [facility] Branch HB ECG ROUTINE & RHYTHM 2022-07-20 16:05:41 Charlene Butt [facility] NOTICE OF PRIVACY 2022-07-20 15:52:39 Doctor Unassigned, [facility] [place] [facility] NOTICE OF PRIVACY 2022-07-20 15:52:39 Doctor Unassigned, [facility] [place] [facility] ADMISSION 2022-07-20 05:01:00 Doctor Unassigned, [facility] [place] [facility] ADMISSION 2022-07-20 05:01:00 Doctor Unassigned, [facility] Encounters Start End Encounter Admission Attending Care Care Encounter Source Date/Time Date/Time Type Type Clinicians Facility Department ID 2022-09-03 Outpatient 3 [id number] [place] [id number] [facility] 08:24:57 [facility] [place] 2022-09-02 Outpatient 3 [id number] [place] REF [id number] [facility] 14:07:05 [facility] [place] 2021-12-05 Outpatient [facility] [id number] Common 11:06:38 Meghana [address] [facility] 2022-08-15 2022-08-28 Inpatient 3 Julio ENCPL CRD [id number] [facility] 18:17:00 12:00:00 Jose [facility] [place] 2022-07-29 2022-07-29 Transition ARIANE FosterKhadar [id number] Univers 00:00:00 00:00:00 of Care [place] [id number] [place] [id number] [facility] 403 Branch 2022-07-20 2022-07-27 Hospital Charlene Butt 1.2.84 [id number] [id number] Univers 11:00:00 21:45:00 Encounter Atul Stephens [id number] ity of [facility] 4.2.7.2 .686 [place] [id number] [facility] 089 Branch 2022-07-20 2022-07-27 Inpatient X KATHARINE [facility] [id number] Univers 11:00:00 21:45:00 BERNA ity [facility] 2022-07-26 2022-07-26 Surgery JAMAL Cannon [id number] Univers 18:03:00 21:03:00 Orlando GORDON [id number] it y [facility] 4.2.7.2.686 [facility] [place] [facility] [id number] [facility] 840 Branch 2020-04-04 2020-04-04 [facility] [id number] Common 13:00:00 13:00:[address] [facility] 2020-03-22 2020-03-22 [facility] [id number] Common 15:20:00 15:20:[address] [facility] 2019-12-22 2019-12-22 [facility] [id number] Common 10:40:00 10:40:[address] [facility] 2019-12-15 2019-12-15 Out[facility] [id number] Common 14:00:00 14:00:[address] [facility] 2019-09-14 2019-09-14 [facility] [id number] Common 13:20:00 13:20:[address] [facility] 2019-05-11 2019-05-11 [facility] [id number] Common 13:00:00 13:00:[address] [facility] 2018-11-11 2018-11-11 [facility] [id number] Common 13:00:00 13:00:[address] [facility] 2018-10-19 2018-10-19 [facility] [id number] Common 08:30:00 08:30:[address] [facility] 2018-04-22 2018-04-22 Outpatient Lynsey Velez 13 [id number] Common 14:00:00 14:00:00 t [facility] Results Test Description Test [...] Interpretation Comments POCT GLU (test code = 3440618126) 264 mg/dL 70-110 H Lab Interpretation (test code = Abnormal 01174-8) [facility] 17:05:15 Test Item Value Reference Range Interpretation Comments POCT GLU (test code = 5397666459) 264 mg/dL 70-110 H Lab Interpretation (test code = Abnormal 79410-6) [facility] [id number] 15:17:32 Test Item Value Reference Range Interpretation Comments NT-proBNP (test code 1090 pg/mL See_Comment H [Autom ated = 8095526614) message] The system which generated this result transmitted reference range : <=125. The reference range was not used to interpret this result as normal/abnormal . ROSLYN (test code = ROSLYN) Biotin has been reported to cause a negative bias, interpret results relative to patient's use of biotin. Lab Interpretation Abnormal (test code = 97924-2) [facility] [id number] 15:17:32 Test Item Value Reference Range Interpretation Comments NT-proBNP (test code 1090 pg/mL See_Comment H [Autom ated = 7874684963) message] The system which generated this result transmitted reference range : <=125. The reference range was not used to interpret this result as normal/abnormal . ROSLYN (test code = ROSLYN) Biotin has been reported to cause a negative bias, interpret results relative to patient's use of biotin. Lab Interpretation Abnormal (test code = 73317-2) [facility] 11:45:45 Test Item Value Reference Range Interpretation Comments MAGNESIUM (test code = 8948482692) 1.9 mg/dL 1.7-2.4 Lab Interpretation (test code = Normal 75436-4) [facility] (NA, K, CL, CO2, GLUCOSE, BUN, CREATININE, CA)2022-07-27 11:45:45 Test Item Value Reference Range Interpretation Comments NA (test code = 130 mmol/L 135-145 L 6995647568) K (test code = 4.1 mmol/L 3.5-5 1406056291) CL (test code = 89 mmol/L 98-108 L 5035911823) CO2 TOTAL (test code = 37 mmol/L 23-31 H 1114929657) AGAP (test code = 2-16 2821421281) BUN (test code = 32 mg/dL 7-23 H 1825627763) GLUCOSE (test code = 180 mg/dL 70-110 H 5252113681) CREATININE (test code = 0.81 mg/dL 0.6-1.25 0349331294) CALCIUM (test code = 8.5 mg/dL 8.6-10.6 L 1417047478) eGFR (test code = mL/min/1.73m2 7210879700) ROSLYN (test code = ORSLYN) Association of Glomerular Filtration Rate (GFR) and [...] tests). Lab Interpretation Abnormal (test code = 59656-4) [facility]17 11:45:45 Test Item Value Reference Range Interpretation Comments MAGNESIUM (test code = 5425843505) 1.9 mg/dL 1.7-2.4 Lab Interpretation (test code = Normal 89331-9) [facility]OL[facility] (NA, K, CL, CO2, GLUCOSE, BUN, CREATININE, CA)2022-07-27 11:45:45 Test Item Value Reference Range Interpretation Comments NA (test code = 130 mmol/L 135-145 L 3342690402) K (test code = 4.1 mmol/L 3.5-5 4797536595) CL (test code = 89 mmol/L 98-108 L 4096291131) CO2 TOTAL (test code = 37 mmol/L 23-31 H 1546676926) AGAP (test code = 2-16 1293569302) BUN (test code = 32 mg/dL 7-23 H 8901049362) GLUCOSE (test code = 180 mg/dL 70-110 H 8477407998) CREATININE (test code = 0.81 mg/dL 0.6-1.25 0280900875) CALCIUM (test code = 8.5 mg/dL 8.6-10.6 L 2017611302) eGFR (test code = mL/min/1.73m2 7830267219) ROSLYN (test code = ROSLYN) Association of [...] tests). Lab Interpretation Abnormal (test code = 04441-4) [facility] GLUCOSE (AUTOMATED)2022-07-27 10:39:46 Test Item Value Reference Range Interpretation Comments POCT GLU (test code = 7952493584) 198 mg/dL 70-110 H Lab Interpretation (test code = Abnormal 34665-8) [facility] GLUCOSE (AUTOMATED)2022-07-27 10:39:46 Test Item Value Reference Range Interpretation Comments POCT GLU (test code = 8727764884) 198 mg/dL 70-110 H Lab Interpretation (test code = Abnormal 59835-9) [facility] GLUCOSE (AUTOMATED)2022-07-27 04:52:50 Test Item Value Reference Range Interpretation Comments POCT GLU (test code = 8555641713) 213 mg/dL 70-110 H Lab Interpretation (test code = Abnormal 50776-9) [facility] GLUCOSE (AUTOMATED)2022-07-27 04:52:50 Test Item Value Reference Range Interpretation Comments POCT GLU (test code = 2516211304) 213 mg/dL 70-110 H Lab Interpretation (test code = Abnormal 60085-6) [facility] GLUCOSE (AUTOMATED)2022-07-27 01:10:58 Test Item Value Reference Range Interpretation Comments POCT GLU (test code = 0128516203) 284 mg/dL 70-110 H Lab Interpretation (test code = Abnormal 15094-3) [facility] GLUCOSE (AUTOMATED)2022-07-27 01:10:58 Test Item Value Reference Range Interpretation Comments POCT GLU (test code = 5215775297) 284 mg/dL 70-110 H Lab Interpretation (test code = Abnormal 77920-1) [facility] GLUCOSE (AUTOMATED)2022-07-26 23:39:10 Test Item Value Reference Range Interpretation Comments POCT GLU (test code = 2429260913) 199 mg/dL 70-110 H Lab Interpretation (test code = Abnormal 45639-8) [facility] GLUCOSE (AUTOMATED)2022-07-26 23:39:10 Test Item Value Reference Range Interpretation Comments POCT GLU (test code = 6048778676) 199 mg/dL 70-110 H Lab Interpretation (test code = Abnormal 45161-7) [facility] (for use with Heparin Infusion)2022-07-26 23:32:33 Test Item Value Reference Range Interpretation Comments APTT Patient (test code = See_Comment [ Automated message] 3173-2) The system [employer] generated this result transmitted ref erence range: 26 - 36 Seconds. The re ference range was not u sed to interpret this result as normal/abnor mal. Lab Interpretation (test Normal code = 04723-6) [facility]26 23:32:33 Test Item Value Reference Range Interpretation Comments APTT Patient (test code = See_Comment [ Automated message] 3173-2) The system [employer] generated this result transmitted ref erence range: 26 - 36 Seconds. The re ference range was not u sed to interpret this result as normal/abnor mal. Lab Interpretation (test Normal code = 74669-0) [facility] GLUCOSE (AUTOMATED)2022-07-26 16:22:25 Test Item Value Reference Range Interpretation Comments POCT GLU (test code = 2986712730) 167 mg/dL 70-110 H Lab Interpretation (test code = Abnormal 52043-2) [facility] GLUCOSE (AUTOMATED)2022-07-26 16:22:25 Test Item Value Reference Range Interpretation Comments POCT GLU (test code = 9958084641) 167 mg/dL 70-110 H Lab Interpretation (test code = Abnormal 78291-8) [facility] GLUCOSE (AUTOMATED)2022-07-26 12:31:04 Test Item Value Reference Range Interpretation Comments POCT GLU (test code = 7975393881) 164 mg/dL 70-110 H Lab Interpretation (test code = Abnormal 99593-1) [facility] GLUCOSE (AUTOMATED)2022-07-26 12:31:04 Test Item Value Reference Range Interpretation Comments POCT GLU (test code = 0889504863) 164 mg/dL 70-110 H Lab Interpretation (test code = Abnormal 41667-0) [facility] GLUCOSE (AUTOMATED)2022-07-26 11:09:37 Test Item Value Reference Range Interpretation Comments POCT GLU (test code = 5920643620) 184 mg/dL 70-110 H Lab Interpretation (test code = Abnormal 80286-4) [facility] GLUCOSE (AUTOMATED)2022-07-26 11:09:37 Test Item Value Reference Range Interpretation Comments POCT GLU (test code = 1280046651) 184 mg/dL 70-110 H Lab Interpretation (test code = Abnormal 45233-5) [facility] GLUCOSE (AUTOMATED)2022-07-26 08:53:59 Test Item Value Reference Range Interpretation Comments POCT GLU (test code = 1470449579) 200 mg/dL 70-110 H Lab Interpretation (test code = Abnormal 26724-9) [facility] GLUCOSE (AUTOMATED)2022-07-26 08:53:59 Test Item Value Reference Range Interpretation Comments POCT GLU (test code = 5533229743) 200 mg/dL 70-110 H Lab Interpretation (test code = Abnormal 77898-8) [facility] GLUCOSE (AUTOMATED)2022-07-26 05:20:56 Test Item Value Reference Range Interpretation Comments POCT GLU (test code = 9465803352) 197 mg/dL 70-110 H Lab Interpretation (test code = Abnormal 26139-0) [facility] GLUCOSE (AUTOMATED)2022-07-26 05:20:56 Test Item Value Reference Range Interpretation Comments POCT GLU (test code = 5248693383) 197 mg/dL 70-110 H Lab Interpretation (test code = Abnormal 59221-8) [facility] CULTURE [id number] 03:01:42 Test Item Value Reference Range Interpretation Comments Blood Culture-Aerobic No organisms No growth Previo us (test code = 44530-3) isolated prelim inary verified result was Culture [...] Culture-Anaerobic isolated preliminar y (test code = 58295-5) verifi ed result was Culture In Progress [...] CDT Lab Interpretation Normal (test code = 66048-9) [facility] CULTURE [id number] 03:01:42 Test Item Value Reference Range Interpretation Comments Blood Culture-Aerobic No organisms No growth Previo us (test code = 94036-8) isolated prelim inary verified result was Culture [...] Culture-Anaerobic isolated preliminar y (test code = 96727-3) verifi ed result was Culture In Progress [...] CDT Lab Interpretation Normal (test code = 05380-5) [facility] GLUCOSE (AUTOMATED)2022-07-26 01:46:28 Test Item Value Reference Range Interpretation Comments POCT GLU (test code = 6074837635) 142 mg/dL 70-110 H Lab Interpretation (test code = Abnormal 34728-5) [facility] GLUCOSE (AUTOMATED)2022-07-26 01:46:28 Test Item Value Reference Range Interpretation Comments POCT GLU (test code = 6019819470) 142 mg/dL 70-110 H Lab Interpretation (test code = Abnormal 54439-0) [facility] GLUCOSE (AUTOMATED)2022-07-25 21:23:27 Test Item Value Reference Range Interpretation Comments POCT GLU (test code = 4454928424) 159 mg/dL 70-110 H Lab Interpretation (test code = Abnormal 82979-6) [facility] GLUCOSE (AUTOMATED)2022-07-25 21:23:27 Test Item Value Reference Range Interpretation Comments POCT GLU (test code = 2197055677) 159 mg/dL 70-110 H Lab Interpretation (test code = Abnormal 37018-8) [facility] GLUCOSE (AUTOMATED)2022-07-25 20:47:32 Test Item Value Reference Range Interpretation Comments POCT GLU (test code = 6767716799) 151 mg/dL 70-110 H Lab Interpretation (test code = Abnormal 43846-0) [facility] GLUCOSE (AUTOMATED)2022-07-25 20:47:32 Test Item Value Reference Range Interpretation Comments POCT GLU (test code = 3693508519) 151 mg/dL 70-110 H Lab Interpretation (test code = Abnormal 57755-7) [facility] GLUCOSE (AUTOMATED)2022-07-25 17:16:01 Test Item Value Reference Range Interpretation Comments POCT GLU (test code = 1906688954) 389 mg/dL 70-110 H Lab Interpretation (test code = Abnormal 31697-7) [facility] GLUCOSE (AUTOMATED)2022-07-25 17:16:01 Test Item Value Reference Range Interpretation Comments POCT GLU (test code = 3510741918) 389 mg/dL 70-110 H Lab Interpretation (test code = Abnormal 72399-3) [facility] 15:08:51 Test Item Value Reference Range Interpretation Comments APTT Patient (test code = See_Comment [ Automated message] 3173-2) The system [employer] generated this result transmitted ref erence range: 26 - 36 Seconds. The re ference range was not u sed to interpret this result as normal/abnor mal. Lab Interpretation (test Normal code = 42724-0) [facility] (for use with Heparin Infusion)2022-07-25 15:08:51 Test Item Value Reference Range Interpretation Comments APTT Patient (test code = See_Comment [ Automated message] 3173-2) The system [employer] generated this result transmitted ref erence range: 26 - 36 Seconds. The re ference range was not u sed to interpret this result as normal/abnor mal. Lab Interpretation (test Normal code = 14198-0) [facility] GLUCOSE (AUTOMATED)2022-07-25 13:22:34 Test Item Value Reference Range Interpretation Comments POCT GLU (test code = 8478723716) 168 mg/dL 70-110 H Lab Interpretation (test code = Abnormal 15667-1) [facility] GLUCOSE (AUTOMATED)2022-07-25 13:22:34 Test Item Value Reference Range Interpretation Comments POCT GLU (test code = 2101847901) 168 mg/dL 70-110 H Lab Interpretation (test code = Abnormal 92417-7) [facility] GLUCOSE (AUTOMATED)2022-07-25 01:59:34 Test Item Value Reference Range Interpretation Comments POCT GLU (test code = 3802255404) 202 mg/dL 70-110 H Lab Interpretation (test code = Abnormal 33379-8) [facility] GLUCOSE (AUTOMATED)2022-07-25 01:59:34 Test Item Value Reference Range Interpretation Comments POCT GLU (test code = 1411140555) 202 mg/dL 70-110 H Lab Interpretation (test code = Abnormal 67294-1) [facility] METABOLIC PANEL (NA, K, CL, CO2, GLUCOSE, BUN, CREATININE, CA)2022-07-24 23:06:12 Test Item Value Reference Range Interpretation Comments NA (test code = 135 mmol/L 135-145 7192534773) K (test code = 4.1 mmol/L 3.5-5 1672507671) CL (test code = 95 mmol/L 98-108 L 4942294662) CO2 TOTAL (test code = 39 mmol/L 23-31 H 1840420316) AGAP (test code = 2-16 L 1842991187) BUN (test code = 16 mg/dL 7-23 6357538768) GLUCOSE (test code = 140 mg/dL 70-110 H 8758424994) CREATININE (test code = 0.59 mg/dL 0.6-1.25 L 9867634540) CALCIUM (test code = 8.4 mg/dL 8.6-10.6 L 4766396241) eGFR (test code = mL/min/1.73m2 7747943223) ROSLYN (test code = ROSLYN) Association of [...] tests). Lab Interpretation Abnormal (test code = 37126-8) [facility] Test Item Value Reference Range Interpretation Comments MAGNESIUM (test code = 5639407941) 2.1 mg/dL 1.7-2.4 Lab Interpretation (test code = Normal 38859-2) [facility] (NA, K, CL, CO2, GLUCOSE, BUN, CREATININE, CA)2022-07-24 23:06:12 Test Item Value Reference Range Interpretation Comments NA (test code = 135 mmol/L 135-145 4516785348) K (test code = 4.1 mmol/L 3.5-5 2236039407) CL (test code = 95 mmol/L 98-108 L 0174587151) CO2 TOTAL (test code = 39 mmol/L 23-31 H 0140338082) AGAP (test code = 2-16 L 9912081505) BUN (test code = 16 mg/dL 7-23 6737868149) GLUCOSE (test code = 140 mg/dL 70-110 H 3687554999) CREATININE (test code = 0.59 mg/dL 0.6-1.25 L 1528432043) CALCIUM (test code = 8.4 mg/dL 8.6-10.6 L 0729584452) eGFR (test code = mL/min/1.73m2 0441335818) ROSLYN (test code = ROSLYN) Association of [...] tests). Lab Interpretation Abnormal (test code = 79005-6) [facility] 23:06:12 Test Item Value Reference Range Interpretation Comments MAGNESIUM (test code = 0576711609) 2.1 mg/dL 1.7-2.4 Lab Interpretation (test code = Normal 11845-1) [facility]2022-07-24 23:00:29 Test Item Value Reference Range Interpretation Comments APTT Patient (test code See_Comment H [Au tomated message] = 3173-2) The system [employer] generated this result transmitted ref erence range: 26 - 36 Seconds. The reference range was not used to int erpret this result as normal/abnormal . Lab Interpretation (test Abnormal code = 78795-3) [facility]2022-07-24 23:00:29 Test Item Value Reference Range Interpretation Comments APTT Patient (test code See_Comment H [Au tomated message] = 3173-2) The system [employer] generated this result transmitted ref erence range: 26 - 36 Seconds. The reference range was not used to int erpret this result as normal/abnormal . Lab Interpretation (test Abnormal code = 68723-0) [facility] GLUCOSE (AUTOMATED)2022-07-24 20:44:06 Test Item Value Reference Range Interpretation Comments POCT GLU (test code = 7388300254) 161 mg/dL 70-110 H Lab Interpretation (test code = Abnormal 13875-6) [facility] GLUCOSE (AUTOMATED)2022-07-24 20:44:06 Test Item Value Reference Range Interpretation Comments POCT GLU (test code = 1223091911) 161 mg/dL 70-110 H Lab Interpretation (test code = Abnormal 83851-8) [facility] GLUCOSE (AUTOMATED)2022-07-24 17:17:45 Test Item Value Reference Range Interpretation Comments POCT GLU (test code = 5322775787) 257 mg/dL 70-110 H Lab Interpretation (test code = Abnormal 32674-5) [facility] GLUCOSE (AUTOMATED)2022-07-24 17:17:45 Test Item Value Reference Range Interpretation Comments POCT GLU (test code = 1748530815) 257 mg/dL 70-110 H Lab Interpretation (test code = Abnormal 06224-8) [facility] GLUCOSE (AUTOMATED)2022-07-24 14:12:13 Test Item Value Reference Range Interpretation Comments POCT GLU (test code = 1329648481) 201 mg/dL 70-110 H Lab Interpretation (test code = Abnormal 75659-9) [facility] GLUCOSE (AUTOMATED)2022-07-24 14:12:13 Test Item Value Reference Range Interpretation Comments POCT GLU (test code = 7247573455) 201 mg/dL 70-110 H Lab Interpretation (test code = Abnormal 89965-2) [facility] GLUCOSE (AUTOMATED)2022-07-24 01:57:51 Test Item Value Reference Range Interpretation Comments POCT GLU (test code = 4344098657) 214 mg/dL 70-110 H Lab Interpretation (test code = Abnormal 39025-2) [facility] GLUCOSE (AUTOMATED)2022-07-24 01:57:51 Test Item Value Reference Range Interpretation Comments POCT GLU (test code = 3872488828) 214 mg/dL 70-110 H Lab Interpretation (test code = Abnormal 34624-3) [facility] GLUCOSE (AUTOMATED)2022-07-23 21:55:56 Test Item Value Reference Range Interpretation Comments POCT GLU (test code = 5301299714) 184 mg/dL 70-110 H Lab Interpretation (test code = Abnormal 77569-2) [facility] GLUCOSE (AUTOMATED)2022-07-23 21:55:56 Test Item Value Reference Range Interpretation Comments POCT GLU (test code = 5613107872) 184 mg/dL 70-110 H Lab Interpretation (test code = Abnormal 81482-2) [facility] GLUCOSE (AUTOMATED)2022-07-23 17:27:48 Test Item Value Reference Range Interpretation Comments POCT GLU (test code = 8368124251) 259 mg/dL 70-110 H Lab Interpretation (test code = Abnormal 84182-8) [facility] GLUCOSE (AUTOMATED)2022-07-23 17:27:48 Test Item Value Reference Range Interpretation Comments POCT GLU (test code = 3368595373) 259 mg/dL 70-110 H Lab Interpretation (test code = Abnormal 41000-4) [facility] GLUCOSE (AUTOMATED)2022-07-23 13:05:59 Test Item Value Reference Range Interpretation Comments POCT GLU (test code = 6400503477) 154 mg/dL 70-110 H Lab Interpretation (test code = Abnormal 89144-5) [facility] GLUCOSE (AUTOMATED)2022-07-23 13:05:59 Test Item Value Reference Range Interpretation Comments POCT GLU (test code = 8873561898) 154 mg/dL 70-110 H Lab Interpretation (test code = Abnormal 54654-6) [facility] GLUCOSE (AUTOMATED)2022-07-23 09:58:20 Test Item Value Reference Range Interpretation Comments POCT GLU (test code = 5986292530) 177 mg/dL 70-110 H Lab Interpretation (test code = Abnormal 52323-9) [facility] GLUCOSE (AUTOMATED)2022-07-23 09:58:20 Test Item Value Reference Range Interpretation Comments POCT GLU (test code = 9962807368) 177 mg/dL 70-110 H Lab Interpretation (test code = Abnormal 59151-4) [facility] GLUCOSE (AUTOMATED)2022-07-22 21:30:57 Test Item Value Reference Range Interpretation Comments POCT GLU (test code = 0046966123) 194 mg/dL 70-110 H Lab Interpretation (test code = Abnormal 59738-5) [facility] GLUCOSE (AUTOMATED)2022-07-22 21:30:57 Test Item Value Reference Range Interpretation Comments POCT GLU (test code = 9860811671) 194 mg/dL 70-110 H Lab Interpretation (test code = Abnormal 87946-2) [facility] GLUCOSE (AUTOMATED)2022-07-22 16:52:50 Test Item Value Reference Range Interpretation Comments POCT GLU (test code = 5456452558) 197 mg/dL 70-110 H Lab Interpretation (test code = Abnormal 65646-9) [facility] GLUCOSE (AUTOMATED)2022-07-22 16:52:50 Test Item Value Reference Range Interpretation Comments POCT GLU (test code = 8659796601) 197 mg/dL 70-110 H Lab Interpretation (test code = Abnormal 78001-7) [facility] GLUCOSE (AUTOMATED)2022-07-22 13:22:34 Test Item Value Reference Range Interpretation Comments POCT GLU (test code = 6856719516) 150 mg/dL 70-110 H Lab Interpretation (test code = Abnormal 46472-9) [facility] GLUCOSE (AUTOMATED)2022-07-22 13:22:34 Test Item Value Reference Range Interpretation Comments POCT GLU (test code = 8563195023) 150 mg/dL 70-110 H Lab Interpretation (test code = Abnormal 61020-9) [id number] 09:38:27 Test Item Value Reference Range Interpretation Comments NT-proBNP (test code 2160 pg/mL See_Comment H [Autom ated = 7682020948) message] The system which generated this result transmitted reference range : <=125. The reference range was not used to interpret this result as normal/abnormal . ROSLYN (test code = ROSLYN) Biotin has been reported to cause a negative bias, interpret results relative to patient's use of biotin. Lab Interpretation Abnormal (test code = 11015-4) [facility] [id number] 09:38:27 Test Item Value Reference Range Interpretation Comments NT-proBNP (test code 2160 pg/mL See_Comment H [Autom ated = 9207327398) message] The system which generated this result transmitted reference range : <=125. The reference range was not used to interpret this result as normal/abnormal . ROSLYN (test code = ROSLYN) Biotin has been reported to cause a negative bias, interpret results relative to patient's use of biotin. Lab Interpretation Abnormal (test code = 39240-4) [facility] 09:31:29 Test Item Value Reference Range Interpretation Comments MAGNESIUM (test code = 2136189272) 1.8 mg/dL 1.7-2.4 Lab Interpretation (test code = Normal 07895-6) [facility]29 Test Item Value Reference Range Interpretation Comments MAGNESIUM (test code = 8972784607) 1.8 mg/dL 1.7-2.4 Lab Interpretation (test code = Normal 84056-9) [facility] (NA, K, CL, CO2, GLUCOSE, BUN, CREATININE, CA)2022-07-22 09:31:09 Test Item Value Reference Range Interpretation Comments NA (test code = 137 mmol/L 135-145 0659882710) K (test code = 4.0 mmol/L 3.5-5 2418742678) CL (test code = 98 mmol/L 98-108 6823728393) CO2 TOTAL (test code = 34 mmol/L 23-31 H 1883797521) AGAP (test code = 2-16 3873153226) BUN (test code = 16 mg/dL 7-23 1561888708) GLUCOSE (test code = 177 mg/dL 70-110 H 8700217228) CREATININE (test code = 0.66 mg/dL 0.6-1.25 8367347747) CALCIUM (test code = 8.2 mg/dL 8.6-10.6 L 8676612378) eGFR (test code = mL/min/1.73m2 5377919820) ROSLYN (test code = ROSLYN) Association of [...] tests). Lab Interpretation Abnormal (test code = 89802-3) [facility] (NA, K, CL, CO2, GLUCOSE, BUN, CREATININE, CA)2022-07-22 09:31:09 Test Item Value Reference Range Interpretation Comments NA (test code = 137 mmol/L 135-145 2572791195) K (test code = 4.0 mmol/L 3.5-5 7715978046) CL (test code = 98 mmol/L 98-108 3060061713) CO2 TOTAL (test code = 34 mmol/L 23-31 H 3696328385) AGAP (test code = 2-16 5807464802) BUN (test code = 16 mg/dL 7- 7665121917) GLUCOSE (test code = 177 mg/dL 70-110 H 0821347553) CREATININE (test code = 0.66 mg/dL 0.6-1.25 4428402633) CALCIUM (test code = 8.2 mg/dL 8.6-10.6 L 7584913742) eGFR (test code = mL/min/1.73m2 1870821542) ROSLYN (test code = ROSLYN) Association of [...] tests). Lab Interpretation Abnormal (test code = 53055-5) [id number][facility] (ALB,T.PRO,BILI T,BU/BC,ALT,AST,ALK PHOS)2022-07-22 09:30:44 Test Item Value Reference Range Interpretation Comments TOTAL BILI (test code = 1385537700) 1.2 mg/dL 0.1-1.1 H BILI UNCON (test code = 1421073603) 0.9 mg/dL 0.1-1.1 BILI CONJ (test code = 2002703139) 0.0 mg/dL 0-0.3 T PROTEIN (test code = 5403280820) 6.5 g/dL 6.3-8.2 ALBUMIN (test code = 4178448547) 3.7 g/dL 3.5-5 ALK PHOS (test code = 8277407375) 67 U/L 34-122 ALTv (test code = 1742-6) 33 U/L 5-50 AST(SGOT) (test code = 7865200171) 30 U/L 13-40 Lab Interpretation (test code = Abnormal 62002-4) [facility] 09:30:44 Test Item Value Reference Range Interpretation Comments PHOSPHORUS (test code = 3474575492) 3.6 mg/dL 2.5-5 Lab Interpretation (test code = Normal 91230-6) [facility] ([id number][facility] (ALB,T.PRO,BILI T,BU/BC,ALT,AST,ALK PHOS)2022-07-22 09:30:44 Test Item Value Reference Range Interpretation Comments TOTAL BILI (test code = 5548252874) 1.2 mg/dL 0.1-1.1 H BILI UNCON (test code = 9413658280) 0.9 mg/dL 0.1-1.1 BILI CONJ (test code = 4990141717) 0.0 mg/dL 0-0.3 T PROTEIN (test code = 0267773766) 6.5 g/dL 6.3-8.2 ALBUMIN (test code = 0225797313) 3.7 g/dL 3.5-5 ALK PHOS (test code = 3260848480) 67 U/L 34-122 ALTv (test code = 1742-6) 33 U/L 5-50 AST(SGOT) (test code = 0390147131) 30 U/L 13-40 Lab Interpretation (test code = Abnormal 69504-2) [facility]22[facility]12 09:30:44 Test Item Value Reference Range Interpretation Comments PHOSPHORUS (test code = 4953445114) 3.6 mg/dL 2.5-5 Lab Interpretation (test code = Normal 28706-5) [facility] WITH [id number] 09:23:08 Test Item Value Reference Range Interpretation [...] RDW-SD (test code = 46.6 fL 38.5-51.6 68958-3) RDW-CV (test code = 13.5 % 12.1-15.4 788-0) PLT (test code = See_Comment L [Automated 777-3) message] The system which generated this result transmit artem reference range : 150 - 328 10*3/ ?L. The reference range was not u sed to interpret th is result as normal/abnormal . MPV (test code = 12.7 fL 9.8-13 18979-8) NRBC/100 WBC (test See_Comment [Automat ed code = 2489951303) message] The system which generated this result transmit artem reference range : 0.0 - 10.0 /100 WBCs. The reference range was not used to interpret this result as normal/abnormal . NRBC x10^3 (test code See_Comment [Auto mated = 1306573603) message] The system which generated this result transmit artem reference range : 10*3/?L. The reference range was not used to interpret this result as normal/abnormal . GRAN MAT (NEUT) % 71.3 % (test code = 770-8) IMM GRAN % (test code 0.40 % = 7107331797) LYMPH % (test code = 17.4 % 736-9) MONO % (test code = 9.8 % 5905-5) EOS % (test code = 0.8 % 713-8) BASO % (test code = 0.3 % 706-2) GRAN MAT x10^3(ANC) 10.18 10*3/uL 1.99-6.95 H (test code = 9093740693) IMM GRAN x10^3 (test 0.06 10*3/uL 0-0.06 code = 1428734605) LYMPH x10^3 (test code 2.49 10*3/uL 1.09-3.23 = 731-0) MONO x10^3 (test code 1.40 10*3/uL 0.36-1.02 H = 742-7) EOS x10^3 (test code = 0.11 10*3/uL 0.06-0.53 711-2) BASO x10^3 (test code 0.04 10*3/uL 0.01-0.09 = 704-7) Lab Interpretation Abnormal (test code = 06204-7) [facility] WITH [id number] 09:23:08 Test Item Value Reference Range Interpretation Comments WBC (test code = See_Comment H [Automated 3290-2) message] The system which generated this result [...] RDW-SD (test code = 46.6 fL 38.5-51.6 30532-4) RDW-CV (test code = 13.5 % 12.1-15.4 788-0) PLT (test code = See_Comment L [Automated 777-3) message] The system which generated this result transmit artem reference range : 150 - 328 10*3/ ?L. The reference range was not u sed to interpret th is result as normal/abnormal . MPV (test code = 12.7 fL 9.8-13 47118-6) NRBC/100 WBC (test See_Comment [Automat ed code = 0051900453) message] The system which generated this result transmit artem reference range : 0.0 - 10.0 /100 WBCs. The reference range was not used to interpret this result as normal/abnormal . NRBC x10^3 (test code See_Comment [Auto mated = 1180075383) message] The system which generated this result transmit artem reference range : 10*3/?L. The reference range was not used to interpret this result as normal/abnormal . GRAN MAT (NEUT) % 71.3 % (test code = 770-8) IMM GRAN % (test code 0.40 % = 3204059456) LYMPH % (test code = 17.4 % 736-9) MONO % (test code = 9.8 % 5905-5) EOS % (test code = 0.8 % 713-8) BASO % (test code = 0.3 % 706-2) GRAN MAT x10^3(ANC) 10.18 10*3/uL 1.99-6.95 H (test code = 3678141704) IMM GRAN x10^3 (test 0.06 10*3/uL 0-0.06 code = 3971146668) LYMPH x10^3 (test code 2.49 10*3/uL 1.09-3.23 = 731-0) MONO x10^3 (test code 1.40 10*3/uL 0.36-1.02 H = 742-7) EOS x10^3 (test code = 0.11 10*3/uL 0.06-0.53 711-2) BASO x10^3 (test code 0.04 10*3/uL 0.01-0.09 = 704-7) Lab Interpretation Abnormal (test code = 84983-7) [facility] GLUCOSE (AUTOMATED)2022-07-22 01:47:13 Test Item Value Reference Range Interpretation Comments POCT GLU (test code = 2468453545) 220 mg/dL 70-110 H Lab Interpretation (test code = Abnormal 88703-1) [facility] GLUCOSE (AUTOMATED)2022-07-22 01:47:13 Test Item Value Reference Range Interpretation Comments POCT GLU (test code = 1313838630) 220 mg/dL 70-110 H Lab Interpretation (test code = Abnormal 16670-5) [facility]20918[facility]TOTAL CHOLESTEROL, TRIGLYCERIDES, HDL)2022-07-22 00:19:28 Test Item Value Reference Range Interpretation Comments CHOL (test code = 121 mg/dL 120-200 4479472685) HDL (test code = 28 mg/dL See_Comment L [Automated message] 7038039232) The system [employer] generated this result transmit artem reference range : >=40. The refer ence range was not u sed to interpret th is result as normal/abnormal . HDLC RATIO (test code = See_Comment [Au tomated message] 9214131292) The system [employer] generated this result transmit artem reference range : <=5.0. The refe rence range was not u sed to interpret th is result as normal/abnormal . TRIG (test code = 119 mg/dL 30-170 9144286785) LDL CHOL (test code = 69 mg/dL See_Comment [Auto mated message] 64901-6) The system [employer] generated this result transmit artem reference range : <=160. The refe rence range was not u sed to interpret th is result as normal/abnormal . VLDL (test code = 24 mg/dL 5-60 9502421217) Lab Interpretation (test Abnormal code = 26062-7) [facility] (59401)(TOTAL CHOLESTEROL, TRIGLYCERIDES, HDL)2022-07-22 00:19:28 Test Item Value Reference Range Interpretation Comments CHOL (test code = 121 mg/dL 120-200 6528603966) HDL (test code = 28 mg/dL See_Comment L [Automated message] 6823024810) The system [employer] generated this result transmit artem reference range : >=40. The refer ence range was not u sed to interpret th is result as normal/abnormal . HDLC RATIO (test code = See_Comment [Au tomated message] 9109044273) The system [employer] generated this result transmit artem reference range : <=5.0. The refe rence range was not u sed to interpret th is result as normal/abnormal . TRIG (test code = 119 mg/dL 30-170 6457216568) LDL CHOL (test code = 69 mg/dL See_Comment [Auto mated message] 87315-8) The system [employer] generated this result transmit artem reference range : <=160. The refe rence range was not u sed to interpret th is result as normal/abnormal . VLDL (test code = 24 mg/dL 5-60 8832521809) Lab Interpretation (test Abnormal code = 07734-4) [facility] 00:00:55 Test Item Value Reference Range Interpretation Comments Height (test code = in 6309456020) Weight (test code = lbs 1963640737) Systolic BP (test code = mmHg 6063526867) Diastolic BP (test code mmHg = 6012342400) Heart Rate (test code = bpm 4797376261) BSA (test code = 2.04 m2 6867769586) Ao root annulus (test 3.5 cm code = 8354717128) Ao root diam (test code 3.50 cm = 1388529903) Aortic root (test code = 3.5 cm 8213004581) LVOT diameter (test code 2.19 cm = 3657758003) LVOT area (test code = 3.80 cm2 4691215014) LVIDD (test code = 5.30 cm 0446791257) Left Ventricular End 135.3 mL Diastolic Volume by Teichholz Method (test code = 8316936) IVS (test code = 1.26 cm 1963356524) Interventricular Septum 1.26 cm Diastolic Thickness by 2D (test code = 1860838) LVPWD (test code = 1.26 cm 6371045674) PW (test code = 1.26 cm 0.6-1.1 2466747327) EF(Teich) (test code = 16.40 % 0012275027) LVIDS (test code = 4.90 cm 7253070070) Left Ventricular End 113.1 mL Systolic Volume by Teichholz Method (test code = 0547887) FS (test code = 7 % 5584736706) EF - 2D (test code = 16.40 % 11289301) LA size (test code = 4.3 cm 2907879128) TR Peak Anthony (test code = 249.6 cm/s 2294389112) Triscuspid Valve mmHg Regurgitation Peak Gradient (test code = 8616213764) LAV(MOD-sp4) (test code 79.00 mL = 2466290600) E wave decelartion time 0.13 s (test code = 6706748276) MV Peak E Anthony (test code 82.3 cm/s = 8557924900) MV stenosis pressure 1/2 38.8 ms time (test code = 9204044590) MV Peak A Anthony (test code 40.8 cm/s = 8160126266) E/A ratio (test code = ratio 7838558403) MR max PG (test code = 61.50 mm[Hg] 0977975005) MR max anthony (test code = 392.20 cm/s 5061824476) Mr max anthony (test code = 392.2 m/s 2603314954) MV Prop V (test code = 33.40 cm/s 9229879439) MV E/e' septal (test 12.6 cm/s code = 6253919144) Tapse (test code = 1.17 cm 7348751892) LVOT stroke volume (test 52.20 cm3 code = 7729537170) LVOT peak anthony (test code 86.4 cm/s = 8441406311) LVOT mn grad (test code mmHg = 3699579822) AV LVOT peak gradient mmHg (test code = 1573355923) LVOT peak VTI (test code 13.9 cm = 4259573658) LV V1 mean (test code = 57.20 cm/s 6280615824) Aortic valve mean 94.3 cm/s velocity (test code = 8118498696) Ao peak anthony (test code = 125.8 cm/s 2783223901) Ao VTI (test code = 22.6 cm 0710898909) AV area by cont VTI 2.3 cm2 (test code = 2168705367) AV area peak anthony (test 2.6 cm2 code = 4698822241) Ao max PG (test code = 6.30 mm[Hg] 9166596939) AV peak gradient (test mmHg code = 9933065181) AV valve area (test code 2.31 cm2 = 3814337977) AV mean gradient (test mmHg code = 1874651162) Radiology Study observation (narrative) (test code = 39156-3) ROSLYN (test code = ROSLYN) ?Left?Ventricle: Left [...] mL of Lumason ultrasound enhancing agent used. [facility] 00:00:55 Test Item Value Reference Range Interpretation Comments Height (test code = in 8387471553) Weight (test code = lbs 9519281422) Systolic BP (test code = mmHg 2098327707) Diastolic BP (test code mmHg = 7143215794) Heart Rate (test code = bpm 3912576548) BSA (test code = 2.04 m2 8497727856) Ao root annulus (test 3.5 cm code = 6457999382) Ao root diam (test code 3.50 cm = 7294274051) Aortic root (test code = 3.5 cm 0887676568) LVOT diameter (test code 2.19 cm = 8474940285) LVOT area (test code = 3.80 cm2 6984641685) LVIDD (test code = 5.30 cm 4302880732) Left Ventricular End 135.3 mL Diastolic Volume by Teichholz Method (test code = 1770099) IVS (test code = 1.26 cm 3935940215) Interventricular Septum 1.26 cm Diastolic Thickness by 2D (test code = 4474070) LVPWD (test code = 1.26 cm 4045594652) PW (test code = 1.26 cm 0.6-1.4 4338118683) EF(Teich) (test code = 16.40 % 5366873394) LVIDS (test code = 4.90 cm 5605097566) Left Ventricular End 113.1 mL Systolic Volume by Teichholz Method (test code = 2839776) FS (test code = 7 % 0389371725) EF - 2D (test code = 16.40 % 13758318) LA size (test code = 4.3 cm 4056504597) TR Peak Anthony (test code = 249.6 cm/s 3581788773) Triscuspid Valve mmHg Regurgitation Peak Gradient (test code = 9935089131) LAV(MOD-sp4) (test code 79.00 mL = 4434986310) E wave decelartion time 0.13 s (test code = 9494164255) MV Peak E Anthony (test code 82.3 cm/s = 5314133414) MV stenosis pressure 1/2 38.8 ms time (test code = 3850809968) MV Peak A Anthony (test code 40.8 cm/s = 5197696985) E/A ratio (test code = ratio 2359298286) MR max PG (test code = 61.50 mm[Hg] 4921578427) MR max anthony (test code = 392.20 cm/s 2970976801) Mr max anthony (test code = 392.2 m/s 0872115194) MV Prop V (test code = 33.40 cm/s 0757637128) MV E/e' septal (test 12.6 cm/s code = 9826170688) Tapse (test code = 1.17 cm 9728155960) LVOT stroke volume (test 52.20 cm3 code = 0983215752) LVOT peak anthony (test code 86.4 cm/s = 0944186344) LVOT mn grad (test code mmHg = 4361956774) AV LVOT peak gradient mmHg (test code = 5526857611) LVOT peak VTI (test code 13.9 cm = 7195976867) LV V1 mean (test code = 57.20 cm/s 2935141860) Aortic valve mean 94.3 cm/s velocity (test code = 1976623282) Ao peak anthony (test code = 125.8 cm/s 5695670443) Ao VTI (test code = 22.6 cm 0351254275) AV area by cont VTI 2.3 cm2 (test code = 5762779338) AV area peak anthony (test 2.6 cm2 code = 2052904218) Ao max PG (test code = 6.30 mm[Hg] 4044797770) AV peak gradient (test mmHg code = 1756150630) AV valve area (test code 2.31 cm2 = 8295852158) AV mean gradient (test mmHg code = 5949584130) Radiology Study observation (narrative) (test code = 67673-9) ROSLYN (test code = ROSLYN) ?Left?Ventricle: Left [...] mL of Lumason ultrasound enhancing agent used. [facility] GLUCOSE (AUTOMATED)2022-07-21 21:54:48 Test Item Value Reference Range Interpretation Comments POCT GLU (test code = 8991105641) 161 mg/dL 70-110 H Lab Interpretation (test code = Abnormal 35095-1) [facility] GLUCOSE (AUTOMATED)2022-07-21 21:54:48 Test Item Value Reference Range Interpretation Comments POCT GLU (test code = 5262739352) 161 mg/dL 70-110 H Lab Interpretation (test code = Abnormal 81748-4) [facility] GLUCOSE (AUTOMATED)2022-07-21 16:47:05 Test Item Value Reference Range Interpretation Comments POCT GLU (test code = 3995132895) 132 mg/dL 70-110 H Lab Interpretation (test code = Abnormal 59712-8) [facility] GLUCOSE (AUTOMATED)2022-07-21 16:47:05 Test Item Value Reference Range Interpretation Comments POCT GLU (test code = 6763851369) 132 mg/dL 70-110 H Lab Interpretation (test code = Abnormal 10632-7) [facility] GLUCOSE (AUTOMATED)2022-07-21 15:03:01 Test Item Value Reference Range Interpretation Comments POCT GLU (test code = 0853653983) 182 mg/dL 70-110 H Lab Interpretation (test code = Abnormal 24001-0) [facility] 15:03:01 Test Item Value Reference Range Interpretation Comments POCT GLU (test code = 9898387110) 182 mg/dL 70-110 H Lab Interpretation (test code = Abnormal 79923-4) [facility] with Zeyoonygqzzk3743-85-86 14:58:14 Test Item Value Reference Range Interpretation [...] RDW-SD (test code = 46.4 fL 38.5-51.6 92342-6) RDW-CV (test code = 13.5 % 12.1-15.4 788-0) PLT (test code = See_Comment [Automated 777-3) message] The system which generated this result transmit artem reference range : 150 - 328 10*3/ ?L. The reference range was not u sed to interpret th is result as normal/abnormal . MPV (test code = 13.0 fL 9.8-13 63871-4) NRBC/100 WBC (test See_Comment [Automat ed code = 9945475430) message] The system which generated this result transmit artem reference range : 0.0 - 10.0 /100 WBCs. The reference range was not used to interpret this result as normal/abnormal . NRBC x10^3 (test code See_Comment [Auto mated = 2174404013) message] The system which generated this result transmit artem reference range : 10*3/?L. The reference range was not used to interpret this result as normal/abnormal . GRAN MAT (NEUT) % 71.1 % (test code = 770-8) IMM GRAN % (test code 0.40 % = 6515993928) LYMPH % (test code = 17.6 % 736-9) MONO % (test code = 10.3 % 5905-5) EOS % (test code = 0.3 % 713-8) BASO % (test code = 0.3 % 706-2) GRAN MAT x10^3(ANC) 10.55 10*3/uL 1.99-6.95 H (test code = 2419000921) IMM GRAN x10^3 (test 0.06 10*3/uL 0-0.06 code = 8923130671) LYMPH x10^3 (test code 2.61 10*3/uL 1.09-3.23 = 731-0) MONO x10^3 (test code 1.53 10*3/uL 0.36-1.02 H = 742-7) EOS x10^3 (test code = 0.04 10*3/uL 0.06-0.53 L 711-2) BASO x10^3 (test code 0.04 10*3/uL 0.01-0.09 = 704-7) BANDS (test code = Increased A 8975596821) REACT LYMPHS (test Rare code = 8379351491) GIANT PLATELETS (test Present See_Comment A [Auto mated code = 5908-9) message] The system which generated this result transmit artem reference range : (none). The reference range was not used to interpret this result as normal/abnormal . Lab Interpretation Abnormal (test code = 58628-9) [facility] with Vgswfyrerfbw0952-41-79 14:58:14 Test Item Value Reference Range Interpretation [...] RDW-SD (test code = 46.4 fL 38.5-51.6 22574-6) RDW-CV (test code = 13.5 % 12.1-15.4 788-0) PLT (test code = See_Comment [Automated 777-3) message] The system which generated this result transmit artem reference range : 150 - 328 10*3/ ?L. The reference range was not u sed to interpret th is result as normal/abnormal . MPV (test code = 13.0 fL 9.8-13 71568-4) NRBC/100 WBC (test See_Comment [Automat ed code = 4860403173) message] The system which generated this result transmit artem reference range : 0.0 - 10.0 /100 WBCs. The reference range was not used to interpret this result as normal/abnormal . NRBC x10^3 (test code See_Comment [Auto mated = 1312055630) message] The system which generated this result transmit artem reference range : 10*3/?L. The reference range was not used to interpret this result as normal/abnormal . GRAN MAT (NEUT) % 71.1 % (test code = 770-8) IMM GRAN % (test code 0.40 % = 8338519109) LYMPH % (test code = 17.6 % 736-9) MONO % (test code = 10.3 % 5905-5) EOS % (test code = 0.3 % 713-8) BASO % (test code = 0.3 % 706-2) GRAN MAT x10^3(ANC) 10.55 10*3/uL 1.99-6.95 H (test code = 4525269806) IMM GRAN x10^3 (test 0.06 10*3/uL 0-0.06 code = 4573092049) LYMPH x10^3 (test code 2.61 10*3/uL 1.09-3.23 = 731-0) MONO x10^3 (test code 1.53 10*3/uL 0.36-1.02 H = 742-7) EOS x10^3 (test code = 0.04 10*3/uL 0.06-0.53 L 711-2) BASO x10^3 (test code 0.04 10*3/uL 0.01-0.09 = 704-7) BANDS (test code = Increased A 2383504606) REACT LYMPHS (test Rare code = 5238892348) GIANT PLATELETS (test Present See_Comment A [Auto mated code = 5908-9) message] The system which generated this result transmit artem reference range : (none). The reference range was not used to interpret this result as normal/abnormal . Lab Interpretation Abnormal (test code = 30048-8) [facility] GLUCOSE (AUTOMATED)2022-07-21 13:20:46 Test Item Value Reference Range Interpretation Comments POCT GLU (test code = 2481137346) 148 mg/dL 70-110 H Lab Interpretation (test code = Abnormal 55936-6) [facility] GLUCOSE (AUTOMATED)2022-07-21 13:20:46 Test Item Value Reference Range Interpretation Comments POCT GLU (test code = 8242201616) 148 mg/dL 70-110 H Lab Interpretation (test code = Abnormal 11637-9) [facility] Metabolic Panel (NA, K, CL, CO2, GLUCOSE, BUN, CREATININE, CA)2022-07-21 13:17:35 Test Item Value Reference Range Interpretation Comments NA (test code = 134 mmol/L 135-145 L 7247461329) K (test code = 4.1 mmol/L 3.5-5 1858616279) CL (test code = 99 mmol/L 98-108 1586216077) CO2 TOTAL (test code = 32 mmol/L 23-31 H 7495619345) AGAP (test code = 2-16 7149355441) BUN (test code = 17 mg/dL 7-23 1934002396) GLUCOSE (test code = 186 mg/dL 70-110 H 7698669658) CREATININE (test code = 0.65 mg/dL 0.6-1.25 8983927827) CALCIUM (test code = 8.2 mg/dL 8.6-10.6 L 9406273820) eGFR (test code = mL/min/1.73m2 4469495238) ROSLYN (test code = ROSLYN) Association of [...] tests). Lab Interpretation Abnormal (test code = 49151-2) [facility] Metabolic Panel (NA, K, CL, CO2, GLUCOSE, BUN, CREATININE, CA)2022-07-21 13:17:35 Test Item Value Reference Range Interpretation Comments NA (test code = 134 mmol/L 135-145 L 2413328709) K (test code = 4.1 mmol/L 3.5-5 0325192639) CL (test code = 99 mmol/L 98-108 7103523173) CO2 TOTAL (test code = 32 mmol/L 23-31 H 8869723559) AGAP (test code = 2-16 1450918005) BUN (test code = 17 mg/dL 7-23 3377839677) GLUCOSE (test code = 186 mg/dL 70-110 H 0175964077) CREATININE (test code = 0.65 mg/dL 0.6-1.25 1593088004) CALCIUM (test code = 8.2 mg/dL 8.6-10.6 L 0141153176) eGFR (test code = mL/min/1.73m2 6669742771) ROSLYN (test code = ROSLYN) Association of [...] tests). Lab Interpretation Abnormal (test code = 52712-3) [facility] [id number] 12:35:48 Test Item Value Reference Interpretation Comments Range TROPONIN I (test 0.032 ng/mL See_Comment [Automated code = 5637441127) message] The system which generated this result [...] biotin. Lab Interpretation Normal (test code = 06859-7) [facility] [id number] 12:35:48 Test Item Value Reference Interpretation Comments Range TROPONIN I (test 0.032 ng/mL See_Comment [Automated code = 8972744922) message] The system which generated this result [...] biotin. Lab Interpretation Normal (test code = 47258-2) [facility] [id number] 12:32:47 Test Item Value Reference Range Interpretation Comments NT-proBNP (test code 3830 pg/mL See_Comment H [Autom ated = 1584983474) message] The system which generated this result transmitted reference range : <=125. The reference range was not used to interpret this result as normal/abnormal . ROSLYN (test code = ROSLYN) Biotin has been reported to cause a negative bias, interpret results relative to patient's use of biotin. Lab Interpretation Abnormal (test code = 75897-9) [facility] [id number] 12:32:47 Test Item Value Reference Range Interpretation Comments NT-proBNP (test code 3830 pg/mL See_Comment H [Autom ated = 6565723750) message] The system which generated this result transmitted reference range : <=125. The reference range was not used to interpret this result as normal/abnormal . ROSLYN (test code = ROSLYN) Biotin has been reported to cause a negative bias, interpret results relative to patient's use of biotin. Lab Interpretation Abnormal (test code = 49061-1) [id number] 12:24:10 Test Item Value Reference Range Interpretation Comments MAGNESIUM (test code = 2755892622) 1.8 mg/dL 1.7-2.4 Lab Interpretation (test code = Normal 62511-7) [facility] [id number] 12:24:10 Test Item Value Reference Range Interpretation Comments MAGNESIUM (test code = 9104872323) 1.8 mg/dL 1.7-2.4 Lab Interpretation (test code = Normal 18410-8) [facility] GLUCOSE (AUTOMATED)2022-07-21 04:19:16 Test Item Value Reference Range Interpretation Comments POCT GLU (test code = 5166175664) 169 mg/dL 70-110 H Lab Interpretation (test code = Abnormal 31716-3) [facility] GLUCOSE (AUTOMATED)2022-07-21 04:19:16 Test Item Value Reference Range Interpretation Comments POCT GLU (test code = 0422356609) 169 mg/dL 70-110 H Lab Interpretation (test code = Abnormal 82484-7) [facility] GLUCOSE (AUTOMATED)2022-07-21 02:03:28 Test Item Value Reference Range Interpretation Comments POCT GLU (test code = 8694043228) 242 mg/dL 70-110 H Lab Interpretation (test code = Abnormal 18298-4) [facility] GLUCOSE (AUTOMATED)2022-07-21 02:03:28 Test Item Value Reference Range Interpretation Comments POCT GLU (test code = 1028377066) 242 mg/dL 70-110 H Lab Interpretation (test code = Abnormal 96748-2) [facility]22-07-21 00:46:20 Test Item Value Reference Range Interpretation Comments HGB A1C (test code = 11.1 % 4-5.7 H 4548-4) ORSLYN (test code = ROSLYN) Reference RangesNormal: <5.7%Prediabetes: 5.7 - 6.4%Diabetes: > 6.5% Lab Interpretation (test Abnormal code = 01375-2) [facility]2022-07-21 00:46:20 Test Item Value Reference Range Interpretation Comments HGB A1C (test code = 11.1 % 4-5.7 H 4548-4) ROSLYN (test code = ROSLYN) Reference RangesNormal: <5.7%Prediabetes: 5.7 - 6.4%Diabetes: > 6.5% Lab Interpretation (test Abnormal code = 83143-5) [facility] GLUCOSE (AUTOMATED)2022-07-20 22:27:55 Test Item Value Reference Range Interpretation Comments POCT GLU (test code = 1921976593) 234 mg/dL 70-110 H Lab Interpretation (test code = Abnormal 54623-9) [facility] GLUCOSE (AUTOMATED)2022-07-20 22:27:55 Test Item Value Reference Range Interpretation Comments POCT GLU (test code = 8973908695) 234 mg/dL 70-110 H Lab Interpretation (test code = Abnormal 97362-2) [facility] [id number] 17:21:08 Test Item Value Reference Range Interpretation Comments NT-proBNP (test code 3250 pg/mL See_Comment H [Autom ated = 1977866885) message] The system which generated this result transmitted reference range : <=125. The reference range was not used to interpret this result as normal/abnormal . ROSLYN (test code = ROSLYN) Biotin has been reported to cause a negative bias, interpret results relative to patient's use of biotin. Lab Interpretation Abnormal (test code = 96434-6) [facility] [id number] 17:21:08 Test Item Value Reference Range Interpretation Comments NT-proBNP (test code 3250 pg/mL See_Comment H [Autom ated = 0498475249) message] The system which generated this result transmitted reference range : <=125. The reference range was not used to interpret this result as normal/abnormal . ROSLYN (test code = ROSLYN) Biotin has been reported to cause a negative bias, interpret results relative to patient's use of biotin. Lab Interpretation Abnormal (test code = 51140-7) [facility] WITH [id number] 17:16:49 Test Item Value Reference Range Interpretation Comments WBC (test code = See_Comment H [Automated 6490-2) message] The system which generated this result transmit artem reference range : 4.20 - 10.70 10*3/?L. The reference range was not used to interpret this result as normal/abnormal . RBC (test code = See_Comment H [Automated 519-8) message] The system which generated this result [...] RDW-SD (test code = 44.7 fL 38.5-51.6 95729-9) RDW-CV (test code = 13.7 % 12.1-15.4 788-0) PLT (test code = See_Comment [Automated 777-3) message] The system which generated this result transmit artem reference range : 150 - 328 10*3/ ?L. The reference range was not u sed to interpret th is result as normal/abnormal . MPV (test code = 12.5 fL 9.8-13 44117-6) NRBC/100 WBC (test See_Comment [Automat ed code = 4275310435) message] The system which generated this result transmit artem reference range : 0.0 - 10.0 /100 WBCs. The reference range was not used to interpret this result as normal/abnormal . NRBC x10^3 (test code See_Comment [Auto mated = 4825124790) message] The system which generated this result transmit artem reference range : 10*3/?L. The reference range was not used to interpret this result as normal/abnormal . GRAN MAT (NEUT) % 76.6 % (test code = 770-8) IMM GRAN % (test code 0.70 % = 7191719701) LYMPH % (test code = 13.8 % 736-9) MONO % (test code = 8.5 % 5905-5) EOS % (test code = 0.1 % 713-8) BASO % (test code = 0.3 % 706-2) GRAN MAT x10^3(ANC) 17.13 10*3/uL 1.99-6.95 H (test code = 7079088113) IMM GRAN x10^3 (test 0.16 10*3/uL 0-0.06 H code = 6470597385) LYMPH x10^3 (test code 3.10 10*3/uL 1.09-3.23 = 731-0) MONO x10^3 (test code 1.91 10*3/uL 0.36-1.02 H = 742-7) EOS x10^3 (test code = 0.06-0.53 L 711-2) BASO x10^3 (test code 0.07 10*3/uL 0.01-0.09 = 704-7) BANDS (test code = Increased A 4392873791) REACT LYMPHS (test Rare code = 5032608173) Lab Interpretation Abnormal (test code = 54994-4) [facility] WITH [id number] 17:16:49 Test Item Value Reference Range Interpretation [...] RDW-SD (test code = 44.7 fL 38.5-51.6 32695-4) RDW-CV (test code = 13.7 % 12.1-15.4 788-0) PLT (test code = See_Comment [Automated 777-3) message] The system which generated this result transmit artem reference range : 150 - 328 10*3/ ?L. The reference range was not u sed to interpret th is result as normal/abnormal . MPV (test code = 12.5 fL 9.8-13 30068-2) NRBC/100 WBC (test See_Comment [Automat ed code = 7853859316) message] The system which generated this result transmit artem reference range : 0.0 - 10.0 /100 WBCs. The reference range was not used to interpret this result as normal/abnormal . NRBC x10^3 (test code See_Comment [Auto mated = 7349314567) message] The system which generated this result transmit artem reference range : 10*3/?L. The reference range was not used to interpret this result as normal/abnormal . GRAN MAT (NEUT) % 76.6 % (test code = 770-8) IMM GRAN % (test code 0.70 % = 9915702374) LYMPH % (test code = 13.8 % 736-9) MONO % (test code = 8.5 % 5905-5) EOS % (test code = 0.1 % 713-8) BASO % (test code = 0.3 % 706-2) GRAN MAT x10^3(ANC) 17.13 10*3/uL 1.99-6.95 H (test code = 2825636636) IMM GRAN x10^3 (test 0.16 10*3/uL 0-0.06 H code = 9799966460) LYMPH x10^3 (test code 3.10 10*3/uL 1.09-3.23 = 731-0) MONO x10^3 (test code 1.91 10*3/uL 0.36-1.02 H = 742-7) EOS x10^3 (test code = 0.06-0.53 L 711-2) BASO x10^3 (test code 0.07 10*3/uL 0.01-0.09 = 704-7) BANDS (test code = Increased A 9103019265) REACT LYMPHS (test Rare code = 0947578890) Lab Interpretation Abnormal (test code = 91387-6) [facility] [id number] 16:42:04 Test Item Value Reference Interpretation Comments Range TROPONIN I (test 0.025 ng/mL See_Comment [Automated code = 3674890574) message] The system which generated this result [...] biotin. Lab Interpretation Normal (test code = 52869-7) [facility] [id number] 16:42:04 Test Item Value Reference Interpretation Comments Range TROPONIN I (test 0.025 ng/mL See_Comment [Automated code = 8375361922) message] The system which generated this result [...] biotin. Lab Interpretation Normal (test code = 76339-8) [facility] 16:31:19 Test Item Value Reference Range Interpretation Comments APTT Patient (test See_Comment [Automat ed code = 3173-2) message] The system which generated this result transmitted reference range : 23 - 38 Seconds . The reference range was not used to interpr et this result as normal/abnormal . ROSLYN (test code = ROSLYN) The [facility] patient population mean normal value for aPTT is 30 seconds. Lab Interpretation Normal (test code = 29722-7) [facility] 16:31:19 Test Item Value Reference Range Interpretation Comments APTT Patient (test See_Comment [Automat ed code = 3173-2) message] The system which generated this result transmitted reference range : 23 - 38 Seconds . The reference range was not used to interpr et this result as normal/abnormal . ROSLYN (test code = ROSLYN) The [facility] patient population mean normal value for aPTT is 30 seconds. Lab Interpretation Normal (test code = 78386-9) [facility]. METABOLIC PANEL (99993)2022-07-20 16:30:19 Test Item Value Reference Range Interpretation Comments NA (test code = 133 mmol/L 135-145 L 5349638475) K (test code = 5.3 mmol/L 3.5-5 H 0493289556) CL (test code = 98 mmol/L 98-108 9152153168) CO2 TOTAL (test code = 27 mmol/L 23-31 5670200943) AGAP (test code = 2-16 0114077717) BUN (test code = 13 mg/dL 7-23 3912308337) GLUCOSE (test code = 273 mg/dL 70-110 H 7861378701) CREATININE (test code = 0.62 mg/dL 0.6-1.25 4465634102) TOTAL BILI (test code = 2.1 mg/dL 0.1-1.1 H 1485326447) CALCIUM (test code = 8.6 mg/dL 8.6-10.6 [id number]) T PROTEIN (test code = 7.3 g/dL 6.3-8.2 1231132126) ALBUMIN (test code = 4.4 g/dL 3.5-5 5948432251) ALK PHOS (test code = 61 U/L 34-122 5573232930) ALTv (test code = 29 U/L 5-50 1742-6) AST(SGOT) (test code = 36 U/L 13-40 2180586538) eGFR (test code = mL/min/1.73m2 0327694855) ROSLYN (test code = ROSLYN) Association of [...] tests). Lab Interpretation Abnormal (test code = 79264-1) [facility]. METABOLIC PANEL ([id number])2022-07-20 16:30:19 Test Item Value Reference Range Interpretation Comments NA (test code = 133 mmol/L 135-145 L [id number]) K (test code = 5.3 mmol/L 3.5-5 H 2734464063) CL (test code = 98 mmol/L 98-108 5993664831) CO2 TOTAL (test code = 27 mmol/L 23-31 0864475840) AGAP (test code = 2-16 7122654432) BUN (test code = 13 mg/dL 7-23 5042373491) GLUCOSE (test code = 273 mg/dL 70-110 H 0833465212) CREATININE (test code = 0.62 mg/dL 0.6-1.25 7100306535) TOTAL BILI (test code = 2.1 mg/dL 0.1-1.1 H 2909342589) CALCIUM (test code = 8.6 mg/dL 8.6-10.6 6570436769) T PROTEIN (test code = 7.3 g/dL 6.3-8.2 5944304374) ALBUMIN (test code = 4.4 g/dL 3.5-5 8747540666) ALK PHOS (test code = 61 U/L 34-122 0004032010) ALTv (test code = 29 U/L 5-50 1742-6) AST(SGOT) (test code = 36 U/L 13-40 8280498808) eGFR (test code = mL/min/1.73m2 0549552803) ROSLYN (test code = ROSLYN) Association of [...] tests). Lab Interpretation Abnormal (test code = 12424-0) [id number] 16:29:23 Test Item Value Reference Range Interpretation Comments PROTIME PATIENT (test See_Comment [Auto mated message] code = 5964-2) The system [employer] generated this result transmitted ref erence range: 12.0 - 1 4.7 Seconds. The re ference range was not u sed to interpret this result as normal/abnor mal. INR (test code = 6301-6) Nor mal INR <1.1; Warfarin Therap eutic range 2.0 to 3. 0 or 2.5 to 3.5, dep ending upon the indica tions. Lab Interpretation (test Normal code = 28723-4) [facility] [id number] 16:29:23 Test Item Value Reference Range Interpretation Comments PROTIME PATIENT (test See_Comment [Auto mated message] code = 5964-2) The system [employer] generated this result transmitted ref erence range: 12.0 - 1 4.7 Seconds. The re ference range was not u sed to interpret this result as normal/abnor mal. INR (test code = 6301-6) Nor mal INR <1.1; Warfarin Therap eutic range 2.0 to 3. 0 or 2.5 to 3.5, dep ending upon the indica tions. Lab Interpretation (test Normal code = 67891-5) [facility]"
[2022-10-15] MEDS ORDERED: NA CHLORIDE 0.9% 1,000 ML ONE (19:24)
--- NOTE | 2022-10-15 19:51 | ER ---
Nurse's Notes [facility] Name: [facility] Pat Age: 72 yrs Sex: Male : 1950 Arrival Date: 10/15/2022 Time: 18:56 Bed 5 Private MD: Diagnosis: Chest pain, unspecified;Essential (primary) hypertension;Tobacco abuse counseling;Tobacco use;Elevated white blood cell count Presentation: 10/15 19:00 Chief complaint: Patient states: Chest pain that began at noon today. Pt was in ER ss recently for same complaints and discharged home. Pt states he has not had the chance to follow up with PCP or industrial waste inspector yet. Coronavirus screen: Client denies travel out of the [place] in the last 14 days. Ebola Screen: Patient denies exposure to infectious person. Patient denies travel to an Ebola-affected area in the 21 days before illness onset. Initial Sepsis Screen: Does the patient meet any 2 criteria? No. Patient's initial sepsis screen is negative. Does the patient have a suspected source of infection? No. Patient's initial sepsis screen is negative. Risk Assessment: Do you want to hurt yourself or someone else? Patient reports no desire to harm self or others. Note EMS administered ASA 324 en route and 22 gauge in L wrist. Onset of symptoms was October 15, 2022. 19:00 Method Of Arrival: Ambulatory ss 19:00 Acuity: KIT 2 ss Historical: - Allergies: 19:04 No Known Allergies; ss - PMHx: 19:04 Atrial fibrillation; CHF; COPD; Diabetes - IDDM; ss - Immunization history:: Client reports having NOT received the Covid vaccine. - Social history:: Smoking status: Patient reports the use of cigarette tobacco products, smokes one-half pack cigarettes per day. - Family history:: not pertinent. Screenin:53 Abuse screen: Denies threats or abuse. Denies injuries from another. Nutritional ll3 screening: No deficits noted. Tuberculosis screening: No symptoms or risk factors identified. Fall Risk No fall in past 12 months (0 pts). No secondary diagnosis (0 pts). IV access (20 points). Ambulatory Aid- None/Bed Rest/Nurse Assist (0 pts). Gait- Normal/Bed Rest/Wheelchair (0 pts) Mental Status- Oriented to own ability (0 pts). Total Baron Fall Scale indicates No Risk (0-24 pts). Assessment: 19:10 General: Appears in no apparent distress. uncomfortable, Behavior is calm, cooperative. ll3 Pain: Complains of pain in chest Pain does not radiate. Pain currently is 6 out of 10 on a pain scale. Quality of pain is described as pressure, Pain began 1 day ago. Is continuous. Neuro: Level of Consciousness is awake, alert, obeys commands, Oriented to person, place, time, situation. Cardiovascular: Chest pain is described as mild, quality is pressure, is located in anterior chest wall began 1 day ago episodes are continuous. Cardiovascular: Rhythm is atrial fibrillation. Respiratory: Respiratory effort is even, unlabored, Respiratory pattern is regular, symmetrical. Derm: Skin is pink, warm \T\ dry. 22:23 Reassessment: Pt c/o CP, Dr. Stokes notified, medicated as ordered. ll3 Vital Signs: 19:00 BP 134 / 85; Pulse 103; Resp 19; Temp 98.6; Pulse Ox 96% on R/A; Weight 80.74 kg; ss Height 5 ft. 7 in. (170.18 cm); Pain 6/10; 20:45 BP 105 / 58; Pulse 96; Resp 22; Pulse Ox 94% on R/A; ll3 22:15 BP 125 / 76; Pulse 93; Resp 22; Pulse Ox 96% on R/A; ll3 19:00 Body Mass Index 27.88 (80.74 kg, 170.18 cm) ED Course: 18:56 Patient arrived in ED. bd 19:03 Triage completed. ss 19:04 Arm band placed on right wrist. ss 19:10 Feliberto Stokes MD is Attending Physician. rosalva 19:50 Feliberto Stokes MD is Hospitalizing Provider. rosalva 19:50 Dwaine Rao MD is Hospitalizing Provider. rosalva 19:53 SARS RAPID Sent. ll3 20:57 XRAY Chest (1 view) In Process Unspecified. EDMS 22:53 Patient has correct armband on for positive identification. Placed in gown. Bed in low ll3 position. Call light in reach. Side rails up X 1. Client placed on continuous cardiac and pulse oximetry monitoring. NIBP monitoring applied. 22:53 No provider procedures requiring assistance completed. Patient maintains SpO2 ll3 saturation greater than 95% on room air. 23:45 Patient admitted, IV remains in place. ll3 Administered Medications: 20:38 Discontinued: NS 0.9% 1000 ml IV at 125 ml/hr continuous rosalva 19:53 Drug: NS 0.9% 1000 ml Route: IV; Rate: 125 ml/hr; Site: left wrist; ll3 20:06 Drug: Pepcid (famotidine) 20 mg Route: IVP; Site: left wrist; ll3 22:46 Follow up: Response: No adverse reaction ll3 20:06 Drug: Lovenox (enoxaparin) 80 mg Route: Sub-Q; Site: abdomen; ll3 22:46 Follow up: Response: No adverse reaction ll3 20:06 Drug: Lopressor (metoprolol TARTRATE) 50 mg Route: PO; ll3 22:46 Follow up: Response: No adverse reaction ll3 20:06 Drug: morphine 2 mg Route: IVP; Infused Over: 4 mins; Site: left wrist; ll3 22:46 Follow up: Response: No adverse reaction ll3 20:06 Drug: Zofran (Ondansetron) 4 mg Route: IVP; Site: left wrist; ll3 22:46 Follow up: Response: No adverse reaction ll3 20:07 Drug: Aspirin Chewable Tablet 324 mg Route: PO; ll3 22:46 Follow up: Response: No adverse reaction ll3 22:05 Drug: Lasix (furosemide) 20 mg Route: IVP; Site: left forearm; ll3 22:47 Follow up: Response: No adverse reaction ll3 22:05 Drug: Rocephin (cefTRIAXone) 1 grams Route: IV; Rate: per protocol; Site: left forearm; ll3 22:47 Follow up: Response: No adverse reaction; IV Status: Completed infusion; IV Intake: [id number] 22:05 Drug: Zithromax (azithromycin) 500 mg Route: PO; ll3 22:47 Follow up: Response: No adverse reaction ll3 22:20 Drug: morphine 2 mg Route: IVP; Infused Over: 4 mins; Site: left forearm; ll3 Medication: 22:57 VIS not applicable for this client. ll3 Intake: 22:47 IV: 10ml; Total: 10ml. ll3 Outcome: 19:51 Decision to Hospitalize by Provider. rosalva 23:[address] [facility] accompanied by nurse, via wheelchair, room 406, with oxygen, with ll3 chart, Report called to MADELEINE Hahn 23:45 Condition: stable 23:45 Instructed on the need for admit, Demonstrated understanding of instructions. 23:45 Patient left the ED. ll3 Signatures: Dispatcher [employer] EDMS Renée Allen Corey, MD MD cha Smirch, Shelby, RN RN ss Loubet, Lynsea, RN RN ll3 Corrections: (The following items were deleted from the chart) 21:17 21:16 BP 105 / 58; Pulse 96bpm; Resp 22bpm; Pulse Ox 94% RA; ll3 ll3
--- NOTE | 2022-10-15 19:51 | EDPHYS ---
Physician Documentation [facility] Name: José Pat Age: 72 yrs Sex: Male : 1950 Arrival Date: 10/15/2022 Time: 18:56 Bed 5 Private MD: ED Physician Feliberto Stokes HPI: 10/15 19:45 This 72 yrs old Male presents to ER via Ambulatory with complaints of Chest rosalva Pain > 30 y/o. 19:45 The patient or guardian reports chest pain that is located primarily in the substernal rosalva area, anterior chest wall, bilaterally. Onset: today, at 13:00. The pain does not radiate. Associated signs and symptoms: The patient has no apparent associated signs or symptoms. The chest pain is described as a pressure. Duration: The patient or guardian reports a single episode, that is still ongoing, but improving. Severity of pain: At its worst the pain was moderate in the emergency department the pain has improved mildly. The patient has not experienced similar symptoms in the past. Historical: - Allergies: 19:04 No Known Allergies; ss - PMHx: 19:04 Atrial fibrillation; CHF; COPD; Diabetes - IDDM; ss - Immunization history:: Client reports having NOT received the Covid vaccine. - Social history:: Smoking status: Patient reports the use of cigarette tobacco products, smokes one-half pack cigarettes per day. - Family history:: not pertinent. ROS: 19:45 Constitutional: Negative for fever, chills, and weight loss, Eyes: Negative for injury, rosalva pain, redness, and discharge, ENT: Negative for injury, pain, and discharge, Neck: Negative for injury, pain, and swelling, Respiratory: Negative for shortness of breath, cough, wheezing, and pleuritic chest pain, Abdomen/GI: Negative for abdominal pain, nausea, vomiting, diarrhea, and constipation, Back: Negative for injury and pain, : Negative for injury, bleeding, discharge, and swelling, MS/Extremity: Negative for injury and deformity, Skin: Negative for injury, rash, and discoloration, Neuro: Negative for headache, weakness, numbness, tingling, and seizure. 19:45 Cardiovascular: Positive for chest pain, of the chest. Exam: 19:45 Constitutional: This is a well developed, well nourished patient who is awake, alert, rosalva and in no acute distress. Head/Face: Normocephalic, atraumatic. Eyes: Pupils equal round and reactive to light, extra-ocular motions intact. Lids and lashes normal. Conjunctiva and sclera are non-icteric and not injected. Cornea within normal limits. Periorbital areas with no swelling, redness, or edema. ENT: Nares patent. No nasal discharge, no septal abnormalities noted. Tympanic membranes are normal and external auditory canals are clear. Oropharynx with no redness, swelling, or masses, exudates, or evidence of obstruction, uvula midline. Mucous membranes moist. Neck: Trachea midline, no thyromegaly or masses palpated, and no cervical lymphadenopathy. Supple, full range of motion without nuchal rigidity, or vertebral point tenderness. No Meningismus. Chest/axilla: Normal chest wall appearance and motion. Nontender with no deformity. No lesions are appreciated. Respiratory: Lungs have equal breath sounds bilaterally, clear to auscultation and percussion. No rales, rhonchi or wheezes noted. No increased work of breathing, no retractions or nasal flaring. Abdomen/GI: Soft, non-tender, with normal bowel sounds. No distension or tympany. No guarding or rebound. No evidence of tenderness throughout. Back: No spinal tenderness. No costovertebral tenderness. Full range of motion. Male : Normal genitalia with no discharge or lesions. Skin: Warm, dry with normal turgor. Normal color with no rashes, no lesions, and no evidence of cellulitis. MS/ Extremity: Pulses equal, no cyanosis. Neurovascular intact. Full, normal range of motion. Neuro: Awake and alert, GCS 15, oriented to person, place, time, and situation. Cranial nerves II-XII grossly intact. Motor strength 5/5 in all extremities. Sensory grossly intact. Cerebellar exam normal. Normal gait. Psych: Awake, alert, with orientation to person, place and time. Behavior, mood, and affect are within normal limits. 19:45 Cardiovascular: Rate: tachycardic, Rhythm: regular, Pulses: Pulses are 4+ in bilateral radial, brachial, femoral, popliteal, posterior tibial and and dorsalis pedis arteries.. Heart sounds: normal, Edema: is not appreciated, JVD: is not appreciated. 19:45 ECG was reviewed by the Attending Physician. Vital Signs: 19:00 BP 134 / 85; Pulse 103; Resp 19; Temp 98.6; Pulse Ox 96% on R/A; Weight 80.74 kg; ss Height 5 ft. 7 in. (170.18 cm); Pain 6/10; 20:45 BP 105 / 58; Pulse 96; Resp 22; Pulse Ox 94% on R/A; ll3 22:15 BP 125 / 76; Pulse 93; Resp 22; Pulse Ox 96% on R/A; ll3 19:00 Body Mass Index 27.88 (80.74 kg, 170.18 cm) ss MDM: 19:10 Patient medically screened. rosalva 19:48 Differential diagnosis: abnormal EKG, acute myocardial infarction, acute pericarditis, rosalva anxiety, coronary artery disease congestive heart failure Cholelithiasis hiatal hernia, pancreatitis, pericarditis, pneumonia, pneumothorax, pulmonary embolus, stable angina, thoracic aortic disection, unstable angina. HEART Score: History: Moderately Suspicious (1), ECG: Non specific repolarization disturbance / LBTB / PM (1), Age: > or = 65 years (2), Risk Factors: > or = 3 Risk factors for atherosclerotic disease (2), [Hypercholesterolemia] [Hypertension] [Active Smoker] [+ Family HX] [Obesity] Troponin: < or = 1 x Normal Limit (0). The patient was given aspirin in the Emergency Department. The patient's deep vein thrombosis risk score was calculated as follows: Total Score: 0. This patient was found to be at low risk for a deep vein thrombosis by using the Well's assessment criteria. The patient's pulmonary embolism risk score was calculated as follows: the patients heart rate is greater than 100 beats per minute (1.5 Pts) Total Score: 0-2 points. This patient was found to be at low risk for a pulmonary embolism by using the Well's assessment criteria. FLORENTIN Risk Score: 1 - patient's age is greater or equal to 65 years, 1 - Three or more CAD risk factors, 1- Known CAD, TOTAL SCORE = 3. Data reviewed: vital signs, nurses notes, lab test result(s), EKG, radiologic studies, plain films. Data interpreted: equipment monitor phototypesetting: rate is 103 beats/min, rhythm is regular, Pulse oximetry: on room air is 96 %. Test interpretation: by ED physician or midlevel provider: ECG, plain radiologic studies. Counseling: I had a detailed discussion with the patient and/or guardian regarding: the historical points, exam findings, and any diagnostic results supporting the discharge/admit diagnosis, lab results, radiology results, the need for further work-up and treatment in the hospital. 10/15 19:19 Order name: Basic Metabolic Panel; Complete Time: 20:43 [facility] 10/15 19:19 Order name: CBC with Diff; Complete Time: 20:13 [facility] 10/15 19:19 Order name: LFT's; Complete Time: 20:43 [facility] 10/15 19:19 Order name: Magnesium; Complete Time: 20:43 [facility] 10/15 19:19 Order name: NT PRO-BNP; Complete Time: 20:43 [facility] 10/15 19:19 Order name: PT-INR; Complete Time: 20:13 [facility] 10/15 19:19 Order name: Troponin HS; Complete Time: 20:43 [facility] 10/15 19:19 Order name: XRAY Chest (1 view); Complete Time: 21:12 [facility] 10/15 19:19 Order name: TSH; Complete Time: 20:43 [facility] 10/15 19:19 Order name: Lipase; Complete Time: 20:43 [facility] 10/15 19:19 Order name: SARS RAPID; Complete Time: 20:37 [facility] 10/15 21:13 Order name: Blood Culture Adult (2) [facility] 10/15 21:13 Order name: Lactate w/ 2H reflex if indic.; Complete Time: 22:51 [facility] 10/15 19:19 Order name: EKG; Complete Time: 19:19 [facility] 10/15 19:19 Order name: Cardiac monitoring; Complete Time: 19:52 [facility] 10/15 19:19 Order name: EKG - Nurse/Tech; Complete Time: 19:52 [facility] 10/15 19:19 Order name: IV Saline Lock; Complete Time: 19:52 [facility] 10/15 19:19 Order name: Labs collected and sent; Complete Time: 19:52 [facility] 10/15 19:19 Order name: O2 Per Protocol; Complete Time: 19:52 [facility] 10/15 19:19 Order name: O2 Sat Monitoring; Complete Time: 19:52 [facility] EC:45 Rate is 101 beats/min. Rhythm is regular. QRS Painter is Normal. QT interval is normal. No rosalva Q waves. T waves are Normal. No ST changes noted. Clinical impression: Sinus tachycardia. Interpreted by me. Administered Medications: 20:38 Discontinued: NS 0.9% 1000 ml IV at 125 ml/hr continuous rosalva 19:53 Drug: NS 0.9% 1000 ml Route: IV; Rate: 125 ml/hr; Site: left wrist; ll3 20:06 Drug: Pepcid (famotidine) 20 mg Route: IVP; Site: left wrist; ll3 22:46 Follow up: Response: No adverse reaction ll3 20:06 Drug: Lovenox (enoxaparin) 80 mg Route: Sub-Q; Site: abdomen; ll3 22:46 Follow up: Response: No adverse reaction ll3 20:06 Drug: Lopressor (metoprolol TARTRATE) 50 mg Route: PO; ll3 22:46 Follow up: Response: No adverse reaction ll3 20:06 Drug: morphine 2 mg Route: IVP; Infused Over: 4 mins; Site: left wrist; ll3 22:46 Follow up: Response: No adverse reaction ll3 20:06 Drug: Zofran (Ondansetron) 4 mg Route: IVP; Site: left wrist; ll3 22:46 Follow up: Response: No adverse reaction ll3 20:07 Drug: Aspirin Chewable Tablet 324 mg Route: PO; ll3 22:46 Follow up: Response: No adverse reaction ll3 22:05 Drug: Lasix (furosemide) 20 mg Route: IVP; Site: left forearm; ll3 22:47 Follow up: Response: No adverse reaction ll3 22:05 Drug: Rocephin (cefTRIAXone) 1 grams Route: IV; Rate: per protocol; Site: left forearm; ll3 22:47 Follow up: Response: No adverse reaction; IV Status: Completed infusion; IV Intake: [id number] 22:05 Drug: Zithromax (azithromycin) 500 mg Route: PO; ll3 22:47 Follow up: Response: No adverse reaction ll3 22:20 Drug: morphine 2 mg Route: IVP; Infused Over: 4 mins; Site: left forearm; ll3 Disposition Summary: 10/15/22 19:51 Hospitalization Ordered Hospitalization Status: Observation rosalva Provider: Dwaine Rao rosalva Condition: Fair rosalva Problem: new rosalva Symptoms: have improved rosalva Bed/Room Type: Standard rosalva Location: Telemetry/MedSurg (Inpatient)(12/06/22 22:45) mw Room Assignment: 406(10/15/22 22:45) mw Diagnosis - Chest pain, unspecified rosalva - Essential (primary) hypertension rosalva - Tobacco abuse counseling rosalva - Tobacco use rosalva - Elevated white blood cell count rosalva Forms: - Medication Reconciliation Form rosalva - SBAR form rosalva Signatures: Dispatcher [employer] EDMS Maru Dean RN RN mw Anderson, Corey, MD MD cha Smirch, Shelby, RN RN Fausto Cochran FNP-C DEAN-Herminia1 Katerin Live RN RN ll3 Corrections: (The following items were deleted from the chart) 20:00 19:51 Telemetry/MedSurg (observation) rosalva mw 20:00 19:51 rosalva mw 22:45 20:00 [facility] ER HOLD mw mw 22:45 20:00 ERHOLD- mw mw 22:45 22:45 206 mw mw
[2022-10-15] MEDS ORDERED: METOPROLOL TAR 50 MG TAB ONE (19:57)
[2022-10-15] MEDS ORDERED: ASPIRIN 81 MG CHEWABLE TABLET ONE (19:57)
[2022-10-15] MEDS ORDERED: MORPHINE 2 MG/ML SYR ONE ×2 (19:58→22:17)
[2022-10-15] MEDS ORDERED: FAMOTIDINE 20 MG/2 ML VIAL IV ONE (19:58)
[2022-10-15] MEDS ORDERED: ENOXAPARIN 80 MG/0.8 ML SQ ONE (19:58)
[2022-10-15] MEDS ORDERED: ONDANSETRON 4 MG/2 ML VIAL ONE (19:58)
[2022-10-15 19:59] LABS: Absolute Lymphocytes (CBC) 2.6 K/uL (0.7-4.9); Hematocrit 44.9 % (39.6-49.0); Lymphocytes % 20.8 % (15.3-44.8); MPV 10.1 fL (7.6-11.3); RBC Red Blood Cell Count 4.88 M/uL (4.33-5.43)
[2022-10-15 20:08] LABS: Protime INR 1.15
[2022-10-15 20:15] LABS: SARS-CoV-2 Antigen Rapid Res Negative (Negative)
[2022-10-15 20:32] LABS: Albumin 3.6 g/dL (3.4-5.0); Bilirubin Direct 0.1 mg/dL (0-0.2); Bilirubin Total 0.7 mg/dL (0.2-1.0); Protein, Total 7.6 g/dL (6.4-8.2); Thyroid Stimulating Hormone 1.43 uIU/mL (0.360-3.740); Troponin High Sensitivity 19.9 pg/mL (<58.9)
[2022-10-15 20:39] LABS: Potassium 4.1 mmol/L (3.5-5.1)
--- NOTE | 2022-10-15 21:05 | RAD REPORT ---
EXAM DESCRIPTION: Billy Single View10/15/2022 8:55 pm CLINICAL HISTORY: Cough COMPARISON: October 11, 2022 FINDINGS: Medial right base hazy The remainder of the lungs appear clear of acute infiltrate. The heart is mildly enlarged IMPRESSION: Medial right base is hazy which may indicate a mild infiltrate
[2022-10-15] MEDS ORDERED: FUROSEMIDE 20 MG/ 2ML VIAL ONE (21:58)
[2022-10-15] MEDS ORDERED: CEFTRIAXONE 1000 MG/VIAL ONE (21:58)
[2022-10-15] MEDS ORDERED: AZITHROMYCIN 250 MG TAB ONE (21:58)
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
[2022-10-15] MEDS ORDERED: IPRATROPIUM BROM 0.5MG/2.5ML NEB PRN (23:30)
[2022-10-15] MEDS ORDERED: ONDANSETRON 4 MG/2 ML VIAL IV PRN (23:30)
[2022-10-15] MEDS ORDERED: BENZONATATE 100 MG CAP PO PRN (23:30)
[2022-10-15] MEDS ORDERED: ACETAMINOPHEN 500 MG TAB PO PRN (23:30)
[2022-10-15] MEDS ORDERED: ALBUTEROL 2.5 MG/3 ML NEB SOL NEB PRN (23:30)
[2022-10-16] MEDS: MORPHINE 2 MG/ML SYR IV PRN ×4 (00:06→18:48)
[2022-10-16 01:15] VITALS: BMI 30.4
[2022-10-16 04:50] LABS: Absolute Lymphocytes (CBC) 1.8 K/uL (0.7-4.9); Hematocrit 44.2 % (39.6-49.0); Lymphocytes % 11.4 % (15.3-44.8); MCV 91.6 fL (80-100); MPV 10.5 fL (7.6-11.3); RBC Red Blood Cell Count 4.83 M/uL (4.33-5.43)
[2022-10-16 05:07] LABS: Potassium 3.6 mmol/L (3.5-5.1); Troponin High Sensitivity 20.2 pg/mL (<58.9)
[2022-10-16] MEDS: INSULIN -REGULAR HUMAN 50 UNIT/0.5 ML ML SQ SCH ×4 (07:30→19:58)
[2022-10-16] MEDS ORDERED: Ringers Lactate 1,000 ML IV SCH (08:00)
[2022-10-16] MEDS: ASPIRIN EC 81 MG TAB PO SCH (08:24)
[2022-10-16] MEDS: APIXABAN 5 MG TABLET PO SCH ×2 (08:26→20:29)
[2022-10-16] MEDS ORDERED: POTASSIUM CL SA 10 MEQ TAB PO ONE (09:00)
[2022-10-16] MEDS ORDERED: CEFTRIAXONE 1,000 MG in NA CHLORIDE 0.9% 50 ML IVPB SCH (09:00)
[2022-10-16] MEDS ORDERED: AZITHROMYCIN IV 500 MG in NA CHLORIDE 0.9% 250 ML IVPB SCH (09:00)
--- NOTE | 2022-10-16 12:37 | P.CNS ---
Date of Consult: 10/16/22 Reason for Consult: Chest pain Chief Complaint: Chest History of Present Illness: Patient is 72 years of age multiple medical problems he does not follow-up with anyone been having this chronic retrosternal chest pain rating to the back had it for quite some time and not related to eating or drinking is admitted with the diagnosis of possible sepsis he denies any fever or cough Allergies No Known Allergies Allergy (Verified 06/10/22 22:17) Home Medications: Aspirin [Aspirin EC 81 MG] 81 mg PO DAILY #30 tablet. 07/04/22 Apixaban [Eliquis] 5 mg PO BID #60 tab 10/09/22 Atorvastatin Calcium [Lipitor] 40 mg PO BEDTIME #30 tab 10/09/22 Digoxin 125 mcg PO DAILY #30 tab 10/09/22 - Past Medical/Surgical History Diabetic: Yes -: DIVERTICULITIS -: COPD -: A. fib -: Diastolic CHF -: Diabetes mellitus type 2 -: Hypertension -: Hyperlipidemia -: Colostomy and reversal Psychosocial/ Personal History: Patient lives at home with his - Family History Father Notes: mesothelioma Mother Medical History: Heart disease, Hypertension - Social History Smoking Status: Current every day smoker Alcohol use: No CD- Drugs: No Caffeine use: Yes Place of Residence: Home Review of Systems General: Weakness Respiratory: Shortness of Breath Cardiovascular: Chest Pain Physical Examination Temp Pulse Resp BP Pulse Ox 98.2 F 88 18 94/60 95 10/16/22 12:00 10/16/22 12:00 10/16/22 12:00 10/16/22 12:00 10/16/22 12:00 General: Alert, In no apparent distress, Oriented x3 HEENT: Atraumatic Neck: Supple Respiratory: Clear to auscultation bilaterally Cardiovascular: No edema, Regular rate/rhythm, Normal S1 S2 Laboratory Data (last 24 hrs) 10/15/22 19:36: PT 12.6 H, INR 1.15 10/15/22 19:36: WBC 12.30 H, Hgb 14.9, Hct 44.9, Plt Count 198 10/15/22 19:36: Sodium 136, Potassium 4.1, BUN 12, Creatinine 0.71, Glucose 128 H, Magnesium 2.0, Total Bilirubin 0.7, AST 17, ALT 14, Alkaline Phosphatase 56, Lipase 128 - Problems (1) Chest pain Current Visit: No Status: Acute Plan: Patient is 72 years of age multiple medical problems does not take any medication at home does not follow-up with anyone admitted with some retrosternal chest pain radiating to the back that this for a long time not related to eating or drinking labs reviewed white count is mildly elevated blood pressure is on the lower side oxygenation satisfactory x-ray shows some cardiomegaly have a history of congestive heart failure by echocardiogram currently in normal sinus rhythm patient has a history of metabolic syndrome on IV fluids changed over to p.o. antibiotics for now patient's troponins are negative evidence of old FL on EKG patient had a cardioversion done in August for atrial fibrillation which was successful Qualifiers: Chest pain type: unspecified Qualified Code(s): R07.9 - Chest pain, unspecified
[2022-10-16] MEDS ORDERED: ALBUTEROL 2.5 MG/3 ML NEB SOL NEB PRN (14:00)
--- NOTE | 2022-10-16 14:36 | RAD REPORT ---
EXAM DESCRIPTION: CT - Thorax Wo Con - 10/16/2022 2:09 pm CLINICAL HISTORY: Possible pneumonia COMPARISON: Chest For Pe Angio dated 07/03/2022; Chest For Pe Angio dated 06/18/2022; Chest Single View dated 10/15/2022 TECHNIQUE: Axial 5 mm thick images of the chest were obtained without IV contrast. All CT scans are performed using dose optimization technique as appropriate and may include automated exposure control or mA/KV adjustment according to patient size. FINDINGS: Patient has underlying mild to moderate COPD. Right lung field is clear of acute finding. Interstitial thickening and minimal nodularity present in the lateral left base. This is less promine nt than seen on the July 03 study but slightly greater than seen on the June 18 study. A very mini mal amount of interstitial infiltrate or edema in the base possible. This could all be scarring remna nt from the July 03 event. No pleural thickening or pleural effusion. No pneumothorax. No abnormal mediastinal or hilar masses or lymphadenopathy seen. No gross aortic or pulmonary artery finding suspected. Assessment is limited in the absence of IV contrast. No pericardial thickening or effusion. No chest wall mass or abnormal axillary lymphadenopathy. IMPRESSION: Interstitial thickening and minimal nodularity in the lateral left base superimposed on [id number] COPD. A left base stranding is decreased from the July 03 study. The left base findings could be remnant pneumonia or scarring from prior event. A very minimal recurrent pneumonia is possible. These etiolo gies can have similar appearance.
[2022-10-16] MEDS: PANTOPRAZOLE 40MG TABLET PO SCH (16:31)
[2022-10-16] MEDS: ATORVASTATIN 40 MG TAB PO SCH (20:29)
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
[2022-10-17] MEDS: MORPHINE 2 MG/ML SYR IV PRN ×4 (00:06→20:03)
[2022-10-17 06:22] LABS: Absolute Lymphocytes (CBC) 1.4 K/uL (0.7-4.9); Hematocrit 43.8 % (39.6-49.0); Lymphocytes % 10.9 % (15.3-44.8); MCV 91.7 fL (80-100); MPV 10.8 fL (7.6-11.3); RBC Red Blood Cell Count 4.78 M/uL (4.33-5.43)
[2022-10-17 06:30] LABS: Potassium 3.9 mmol/L (3.5-5.1)
[2022-10-17] MEDS: INSULIN -REGULAR HUMAN 50 UNIT/0.5 ML ML SQ SCH ×4 (07:30→19:45)
[2022-10-17] MEDS: PANTOPRAZOLE 40MG TABLET PO SCH ×2 (08:02→16:36)
[2022-10-17] MEDS: levoFLOXacin 750 MG TAB PO SCH (08:02)
[2022-10-17] MEDS: ASPIRIN EC 81 MG TAB PO SCH (08:02)
[2022-10-17] MEDS: APIXABAN 5 MG TABLET PO SCH ×2 (08:03→20:03)
[2022-10-17] MEDS ORDERED: POTASSIUM CL SA 10 MEQ TAB PO ONE (09:00)
[2022-10-17] MEDS: ATORVASTATIN 40 MG TAB PO SCH (20:03)
--- NOTE | 2022-10-17 23:00 | P.PN ---
Date of Service: 10/17/22 Subjective: mild shortness of breath feels improved, no worsening of symptoms ROS: A complete review of systems was performed and is negative except as mentioned above Physical Exam: Gen: NAD, AOx3 HEENT: normal conjunctiva, sclera anicteric CV: regular rate & rhythm, no edema Pulm: non-labored respirations on 2L NC, diminished with crackles at right base Abd: soft, non-tender, non-distended Neuro: normal speech, normal affect, moves all extremities vitals reviewed Problem List Sepsis secondary to right-sided pneumonia Chest pain rule out ACS COPD on home O2 Chronic diastolic congestive heart failure Atrial fibrillation on chronic anticoagulation therapynoncompliant Diabetes mellitus type 2insulin-dependentnoncompliant Hypertension Hyperlipidemia Pna / Sepsis vitals improved blood cultures pending continue empiric antibiotics has home O2 pulm consulted improving leukocytosis improved Chest pain improved, but not resolved cardiology consulted previously recommended cath, but patient refused pt agreeable now aspirin, eliquis cath planned for tomorrow afib, on eliquis continue eliquis s/p cardioversion a few months ago DM2 continue sliding scale insulin, adjust insulin as needed pt with noncompliance, high risk for bounce back previously have discussed different options - family/neighbors have 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
[2022-10-18] MEDS: MORPHINE 2 MG/ML SYR IV PRN ×2 (01:13→06:14)
[2022-10-18 04:54] LABS: Hematocrit 43.2 % (39.6-49.0); MCV 90.5 fL (80-100); MPV 10.7 fL (7.6-11.3); RBC Red Blood Cell Count 4.77 M/uL (4.33-5.43)
[2022-10-18] MEDS: ASPIRIN EC 81 MG TAB PO SCH (05:40)
[2022-10-18] MEDS: PANTOPRAZOLE 40MG TABLET PO SCH ×2 (07:30→16:06)
[2022-10-18] MEDS: INSULIN -REGULAR HUMAN 50 UNIT/0.5 ML ML SQ SCH ×3 (07:30→16:06)
[2022-10-18] MEDS: APIXABAN 5 MG TABLET PO SCH (08:08)
[2022-10-18] MEDS: levoFLOXacin 750 MG TAB PO SCH (08:08)
[2022-10-18 16:08] VITALS: BP 136/86; TEMP 98.7
[2022-10-18 16:19] VITALS: O2SAT 95
--- NOTE | 2022-10-18 22:06 | CON ---
Date of Consultation: 10/18/2022 Reason For Consultation: Chest pain. History Of Present Illness: This is a 72-year-old male with past medical history of diabetes, atrial fibrillation, and congestive heart failure diastolic who presented to the emergency room with chest pain at rest and tightness feeling along with shortness of breath. Pain does not radiate and not rel ated to exertion. The patient has not been compliant with medications as per report, especially with anticoagulation due to cost. Past Medical History: As outlined above in the HPI. Medications: Refer to reconciliation sheet for detailed list. Allergies: NO KNOWN DRUG ALLERGIES. Family History: No premature coronary artery disease or cancer. Social History: He is an active smoker. Does not drink or use any drugs. Review of Systems: All systems reviewed and they were negative except for mentioned in HPI. Physical Examination: Vital Signs: Reviewed. Head And Neck: Pupils are equal and reactive to light. Intact eye movements. No JVD. No cervical lymphadenopathy. Neck is supple. Thyroid is not enlarged. Lungs: Clear to auscultation bilaterally. No rhonchi, wheezing, or crackles. No accessory muscle u se. Heart: Irregular. No extra sounds. Abdomen: Soft, nontender. Bowel sounds positive. No organomegaly. No masses or hernia. No rigidi ty or rebound. Extremities: No edema, clubbing, or cyanosis. Intact pulses. Skin: No rash. Neurologic: Alert, awake, and oriented x3. No acute focal deficits appreciated. Investigations: BUN is 12, creatinine 0.69. White blood cell count 10.7 and hemoglobin 14.8. Assessment And Recommendations: 1.Chest pain. Three sets of cardiac enzymes were negative and this patient has multiple risk factor s including diabetes and longstanding smoking history. No further inpatient cardiac workup is requir ed. However, I recommend an early followup post discharge for exercise stress test and an echocardio gram and he was counseled to quit smoking as well. 2.Pneumonia, on current antibiotics. White count has normalized. 3.Chronic atrial fibrillation, rate is controlled. Continue apixaban and add metoprolol for rate co ntrol. SR/MODL Voice ID: [id number] Report ID: [id number]
--- NOTE | 2022-10-19 23:30 | CON ---
Date of Consultation: 10/16/2022 Reason For Consultation: Pneumonia and chest pain. History Of Present Illness: Mr. Pat is a 72-year-old male. He is known to us from previous o ffice visits and admission. This is fourth or fifth time this year with atypical chest pain. At thi s time, he has pneumonia. He is known to have ejection fraction of 30% to 35%, paroxysmal atrial fib rillation, dyslipidemia, COPD, and diabetes mellitus. At this time, he comes in with chest pain that is mid chest pressure. White count was 16,000. Chest x-ray showed pneumonia. BNP is 2446. We had plan to do heart catheterization multiple times on Mr. Pat. He either refuses or is unable t o lie flat. We are hoping we can do the heart catheterization at this time. Past Medical History: As stated above. Allergies: NONE. Medications: At home supposed to be Eliquis, aspirin, digoxin, Lipitor. Review of Systems: Negative. Social History: Negative. Family History: Negative. Physical Examination: Vital Signs: Stable. He was in sinus rhythm. HEENT: Negative. Neck: Supple. No bruit. Chest: Revealed some crackles in the right base. Cardiac: Revealed regular rhythm and rate. No murmurs, gallops, or rubs. Abdomen: Benign. Extremities: Revealed no clubbing, cyanosis, or edema. Diagnostic Data: As stated earlier. Impression And Plan: 1.Unstable angina. 2.Chronic systolic congestive heart failure. 3.Pneumonia. 4.Paroxysmal atrial fibrillation. 5.Dyslipidemia. 6.Chronic obstructive pulmonary disease. 7.Diabetes. I would continue his present regimen. We will plan to do a heart catheterization on him sometimes ea rly next week depending his pneumonia be treated for a few days. I will discuss the case further with Dr. Rao. If we are going to do a heart catheterization, we will hold his Eliquis for 1 or 2 days prior to the catheterization. RUPERT/BASSAM Voice ID: [id number] Report ID: [id number]
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
[2022-10-21] MEDS ORDERED: HEPA 1000U/500MLS 1,000 UNIT/500 ML BAG IV ONE (07:09)
[2022-10-21] MEDS ORDERED: MIDAZOLAM HCL 2 MG/2 ML INJ ONE (08:48)
[2022-10-21] MEDS ORDERED: FENTANYL CITR 100 MCG/2 ML ONE (08:48)
[2022-10-21] MEDS ORDERED: ATROPINE SULF 1 MG/10 ML SYR IV ONE (08:49)
[2022-10-21] MEDS ORDERED: NA CHLORIDE 0.9% 0 ML IV ONE (08:49)
== END 2022-10-18 17:55 | disposition home or self-care (01) | DRG 871 ==
LOC: ER 18:50 → ERHOLD 22:36 → 4TH 22:47
PROVIDERS: ADMIT Hospitalist; ATTEND Hospitalist
DX: A41.9 Sepsis, unspecified organism (principal); J18.9 Pneumonia, unspecified organism; I48.20 Chronic atrial fibrillation, unspecified; I50.32 Chronic diastolic (congestive) heart failure; J44.0 Chronic obstructive pulmonary disease with (acute) lower respiratory infection; Z99.81 Dependence on supplemental oxygen; I11.0 Hypertensive heart disease with heart failure; E11.9 Type 2 diabetes mellitus without complications; Z79.4 Long term (current) use of insulin; Z79.01 Long term (current) use of anticoagulants; Z72.0 Tobacco use
CPT/HCPCS: 36415; 71045; 71250; 80048; 80076; 82947; 83605; 83690; 83735; 83880; 84145; 84443; 84484; 85025; 85027; 85610; 87040; 87811; 93005; 96372; 99285; J0456; J1650; J1815; J1940; J2270; J2405; J7030; J7050; J7120; Q0144

== ENCOUNTER 2022-10-23 08:22 | Observation (INO) | payer OTHER ==
--- OUTSIDE RECORDS SUMMARY | 2022-10-23 08:31 | XMS REPORT | Continuity of Care Document ---
:1950 Author Organization [facility] t Address [address] [place] [address] Care Team Providers Name Role Phone Pcp, Patient Does Not Have A Primary Care Physician [id number] [id number] Attending Clinician Unavailable Meghana Ayala Attending Clinician Unavailable Jose Kim Rahil Attending Clinician Unavailable La Foster RN Attending Clinician Unavailable Charlene Butt DO Attending Clinician Atul Stephens MD Attending Clinician Berna Alcantar MD Attending Clinician [phone] BERNA ALCANTAR Attending Clinician Unavailable Orlando Cannon MD Attending Clinician [id number] Admitting Clinician Unavailable Jose Kim Rahil Admitting Clinician Unavailable Berna Alcantar MD Admitting Clinician [phone] BERNA ALCANTAR Admitting Clinician Unavailable Payers Payer Name Policy Type Policy Number Effective Date Expiration Date S cindy [facility] [id number] Problems Condition Condition Condition Status Onset Resolution [...] diabetes 07-21 ity of mellitus mellitus 00:00: [place] without without 00 Medical complicati complicati Br [...] Added automatic ally from request for surgery [id number] CHF CHF Problem Active Common (congestiv (congestiv Sp anabela e heart e heart - [facility]I failure) failure) [facility] Hypertensi Hypertensi Problem Active C ommon on on Spirit - [facility] Diabetes Diabetes Problem Active Commo n type 2, type 2, Spirit controlled controlled - [facility] COPD COPD Problem Active Common (chronic (chronic Spirit obstructiv obstructiv - [facility] e e St pulmonary pulmonary Davis s disease) disease) [facility] Nicotine Nicotine Problem Active Commo n dependence dependence Sp anabela - [facility] Seasonal Seasonal Problem Active Commo n allergic allergic [facility] rhinitis rhinitis - [facility] Adjustment Adjustment Problem Active C ommon disorder disorder Spirit with with - CHI depressed depressed St mood mood [facility] Chronic Chronic Problem Active Common fatigue fatigue Spirit - [facility] Type 2 Type 2 Problem [...] Active Univers ALLERGIE Class ity of S [facility] Social History Social Habit Start Date Stop Date Quantity Comments Source History of Cigarette Smoker Universi ty of tobacco use [place] [facility] [place] History [facility] Food 2022-07-29 2022-07-29 1 Univers ity of Worry 00:00:00 00:00:00 [place] [facility] History SDOH Food 2022-07-29 2022-07-29 1 Univers ity of Scarcity 00:00:00 00:00:00 [place] [facility] History SDOH 2022-07-29 2022-07-29 2 University o f Transport Med 00:00:00 00:00:00 [place] Medic al [facility] History [facility] 2022-07-29 2022-07-29 2 University o f Transport Non-Med 00:00:00 00:00:00 [facility] edical Branch Tobacco use and 2022-07-21 2022-07-21 Smokeless tobacco Un iversity of exposure 00:00:00 00:00:00 non-user [facility] Exposure to 2022-07-10 2022-07-20 Not sure [facility] SARS-CoV-2 00:00:00 10:56:00 [facility] (event) Branch Sex Assigned At [birth year] Universit y of 00:00:00 00:00:00 [facility] Smoking Status Start Date Stop Date Source Smokes tobacco daily 2022-07-21 00:00:00 Univers ity of [facility] Medications Ordered Filled Start Stop [...] Until Discontinu ed, Routine furosemide 2021-0 Yes [id number] 40mg Take 1 Univers 40 mg 9-18 tablet by ity of tablet 00:00: mouth in [place] 00 the Medical morning Branch and 1 tablet in the evening. metoprolol 2021-0 Yes [id number] 50mg Take 1 Univers succinate 9-18 tablet by ity o f XL 50 mg 24 00:00: mouth in [place] hr tablet 00 the Medical morning. Branch spironolact 2021-0 Yes [id number] 25mg Take 1 Univers one 25 mg 9-18 tablet by ity o f tablet 00:00: mouth in [place] 00 the Medical morning. Branch furosemide 2021-0 Yes [id number] 40mg Take 1 Univers 40 mg 9-18 tablet by ity of tablet 00:00: mouth in [place] 00 the Medical morning Branch and 1 tablet in the evening. metoprolol 2021-0 Yes [id number] 50mg Take 1 Univers succinate 9-18 tablet by ity o f XL 50 mg 24 00:00: [place] hr tablet 00 the Medical morning. Branch spironolact 2021-0 Yes [id number] 25mg Take 1 Univers one 25 mg 9-18 tablet by ity o f tablet 00:00: mouth in [place] 00 the Medical morning. Branch furosemide 2021-0 Yes [id number] 40mg Take 1 Univers 40 mg 9-18 tablet by ity of tablet 00:00: mouth in [place] 00 the Medical morning Branch and 1 tablet in the evening. metoprolol 2021-0 Yes [id number] 50mg Take 1 Univers succinate 9-18 tablet by ity o f XL 50 mg 24 00:00: [place] hr tablet 00 the Medical morning. Branch spironolact 2021-0 Yes [id number] 25mg Take 1 Univers one 25 mg 9-18 tablet by ity o f tablet 00:00: mouth in [place] 00 the Medical morning. Branch aspirin 2-0 [...] by ity o f 21:46: mouth in [place] 23 the Medical morning. Branch montelukast Yes 1{tbl} Take 1 Un rita 10 mg 9-17 tablet by ity of tablet 21:46: mouth in [place] 23 the Medical morning. Branch albuterol Yes 2{puff} Take 2 Uni vers sulfate 9-17 Puffs by ity of (PROAIR 21:46: mouth as [place] RESPICLICK) 23 needed for Me dical 90 Cough. Branch mcg/actuati Cough, on AePB wheezing aspirin Yes 81mg Take 81 mg Univ ers (ASPIR-LOW 9-17 by mouth 2 ity of ORAL) 21:46: (two) [place] [id number] times Medical daily. Branch insulin Yes 15U inject 15 Unive rs glargine,hu 9-17 Units ity of m.rec.anlog 21:46: under the [place] (LANTUS 23 skin. Medical U-100 Branch INSULIN SC) losartan 25 Yes 1{tbl} Take 1 Un rita mg tablet 9-17 tablet by ity o f 21:46: mouth in [place] 23 the Medical morning. Branch montelukast Yes 1{tbl} Take 1 Un rita 10 mg 9-17 tablet by ity of tablet 21:46: mouth in [place] 23 the Medical morning. Branch albuterol Yes 2{puff} Take 2 Uni vers sulfate 9-17 Puffs by ity of (PROAIR 21:46: mouth as [place] RESPICLICK) 23 needed for Me dical 90 Cough. Branch mcg/actuati Cough, on AePB wheezing aspirin Yes 81mg Take 81 mg Univ ers (ASPIR-LOW 9-17 by mouth 2 ity of ORAL) 21:46: (two) [place] 23 times Medical daily. Branch insulin Yes 15U inject 15 Unive rs glargine,hu 9-17 Units ity of m.rec.anlog 21:46: under the [place] (LANTUS 23 skin. Medical U-100 Branch INSULIN SC) losartan 25 Yes 1{tbl} Take 1 Un rita mg tablet 9-17 tablet by ity o f 21:46: mouth in [place] 23 the Medical morning. Branch montelukast Yes 1{tbl} Take 1 Un rita 10 mg 9-17 tablet by ity of tablet 21:46: mouth in [place] 23 the Medical morning. Branch albuterol Yes 2{puff} Take 2 Uni vers sulfate 9-17 Puffs by ity of (PROAIR 21:46: mouth as [place] RESPICLICK) 23 needed for Me dical 90 [...] Branch 07/26/22 at 2030, Routine atorvastati Yes [id number] 40mg Take 1 Univers n 40 mg -17 tablet by ity of tablet 00:00: mouth at [place] 00 bedtime. Medical Branch apixaban Yes [id number] 5mg Take 1 Univers (ELIQUIS) 5 9-17 tablet by ity of mg tablet 00:00: [place] 00 the Medical morning Branch and 1 tablet in the evening. Indication s: atrial fibrillati on atorvastati Yes [id number] 40mg Take 1 Univers n 40 mg 9-17 tablet by ity of tablet 00:00: mouth at [place] 00 bedtime. Medical Branch apixaban Yes 1358 5mg Take 1 Univers (ELIQUIS) 5 9-17 tablet by ity of mg tablet 00:00: [place] 00 the Medical morning Branch and 1 tablet in the evening. Indication s: atrial fibrillati on atorvastati Yes [id number] 40mg Take 1 Univers n 40 mg 9-17 tablet by ity of tablet 00:00: mouth at [place] 00 bedtime. Medical Branch apixaban Yes 1358 [...] ed insulin 2021- No 15U 15 Units, [facility] ers glargine 07-26 Subcutaneo ity of (LANTUS [...] magnesium 2021- No 2g 2 g, IV [facility] ers sulfate in 07-26 Piggyback, it y [...] 1000, Routine metoprolol Yes 50mg 50 mg, [facility] succinate 07-24 Oral, ity of XL (TOPROL 14:15: DAILY, [place] XL) tablet 00 First dose Med ical 50 mg on Wed Branch 07/24/22 at 0915, Until Discontinu ed, Routine metoprolol 2021- No 50mg 50 mg, [facility] ers succinate 07-24 Oral, ity of XL (TOPROL 14:15: 04:46 DAILY, [facility] s XL) tablet 00 :24 [...] Rang e, Dosing and Testing: &nbs p;FOR [place], [facility], AND [facility] C[facility]USES ONLY - aPTT < [...] Rang e, Dosing and Testing: &nbs p;FOR [facility], [facility], AND C CAMPUSES ONLY - aPTT < [...] 53 Starting Medi jose tablet 1 on [facility] tablet 07/23/22 at 1031, Until Discontinu ed, Routine, Pain (scale 4-6) HYDROcodone 2021-0 2021- No 1{tbl} 1 tablet, Univers -acetaminop 07-23-18 Oral, ity of hen (NORCO 15:31: 04:46 Q6HPRN, [place] as 5) 5-325 mg 53 :24 Starting Medi jose tablet 1 on Fri [place] tablet 07/23/22 at 1031, Until 07/27/22 at [...] [place] mg 00 First dose Medical on [facility] 07/22/22 at 0900, Until Discontinu ed, Routine montelukast Yes 10mg 10 mg, Univ ers (SINGULAIR) 07-22 Oral, ity of tablet 10 14:00: DAILY, [place] mg 00 First dose Medical on [facility] 07/22/22 at 0900, Until Discontinu ed, Routine spironolact 2021- No 25mg 25 mg, Uni vers one 07-22 Oral, ity of (ALDACTONE) 14:00: 04:46 DAILY, [place] as tablet 25 00 :24 First dose Medi jose mg on [facility] 07/22/22 at 0900, Until Discontinu ed, Routine aspirin No 81mg 81 mg, Univers chewable 07-22 Oral, ity of tablet 81 14:00: 04:46 DAILY, [place] mg 00 :24 First dose Medical on [facility] 07/22/22 at 0900, Until Discontinu ed, Routine losartan 2021- No 25mg 25 mg, Univer s (COZAAR) 07-22 Oral, ity of tablet 25 14:00: 04:46 DAILY, [place] mg 00 :24 First dose Medical on [facility] 07/22/22 at 0900, Until Discontinu ed, Routine montelukast No 10mg 10 mg, Uni vers (SINGULAIR) 07-22 Oral, ity of tablet 10 14:00: 04:46 DAILY, [place] mg 00 :24 First dose Medical on [facility] 07/22/22 at 0900, Until Discontinu ed, Routine metoprolol No 50mg 50 mg, Univ ers tartrate 07-22 Oral, BID ity o f (LOPRESSOR) 13:00: 14:10 MEALS, [place] as tablet 50 00 :14 First dose Medi jose mg on [facility] 07/22/22 at 0800, Until Discontinu ed, Routine atorvastati Yes 40mg 40 mg, Univ ers n (LIPITOR) 07-22 Oral, QHS, it y of tablet 40 02:00: First dose [place] mg 00 on [facility] 07/21/22 at Branch 2100, Until Discontinu ed, Routine atorvastati 2021- No 40mg 40 mg, Uni vers n (LIPITOR) 07-22 Oral, QHS, i ty of tablet 40 02:00: 04:46 First dose [place] mg 00 :24 on [facility] 07/21/22 at Branch 2100, Until Discontinu ed, Routine morpHINE (2 2021- No 2mg 2 mg, Slow Univers mg/mL) 07-22 IV Push, ity of injection 2 01:29: 15:32 Q6HPRN, [place] mg 07 :09 Starting Medical on [facility] 07/21/22 at 2029, Until 07/23/22 at 1032, Routine, Chest pain furosemide 2021- No 20mg 20 mg, IV U nivers (LASIX) 07-22 Push, ity of injection 01:00: 05:27 Q12H, [place] 20 mg 00 :42 First dose Medical (after Branch last reorder) on [place] 07/21/22 at 2000, Until Discontinu ed, LORI enoxaparin 2021- No 1mg/kg 100 mg Un rita (LOVENOX) 07-22 (rounded ity o f injection 01:00: 05:30 [place] 98.5 [place] 100 mg 00 :31 mg = 1 Medical mg/kg Branch ?98.5 kg), Subcutaneo us, Q12H, First dose (after last modificati on) on [place] 07/21/22 at 2000, Until Discontinu ed, Routine sulfur 2021- No [id number] 5mL 5 mL, Unive rs hexafluorid 07-21 Intravenou i ty of e microsphr 15:45: 15:45 s, ONCE, 1 [place] (LUMASON) 00 :00 dose, On Medica l injection 5 [place] Branch mL 07/21/22 at 1045, Routine
committee member approving Restricted medication : ANA LUISA [...] dose [place] Lispro 00 :26 on [facility] Medical (HumaLOG) + 07/20/22 at Br anch Fsbg 1900, Testing Until Discontinu ed, Routine glucagon Yes 1mg 1 mg, Univers (GLUCAGEN 07-20 Intramuscu ity of DIAGNOSTIC 23:48: lar, PRN, [place] KIT) 16 Starting Medical injection 1 on [facility] Branch 07/20/22 at 1848, Until Discontinu ed, LORI, Blood Glucose < or = 70 mg/dL and patient is unable to swallow or has mental changes. dextrose 50 Yes 25mL 25 mL, Univ ers % in water 07-20 Slow IV ity of (D50W) 23:48: Push, PRN, [place] injection 16 Starting Medica l 25 mL on [facility] Branch 07/20/22 at 1848, Until Discontinu ed, LORI, Blood Glucose < or = 70 mg/dL and patient is unable to swallow or has mental status changes. glucagon 2021- No 1mg 1 mg, Univers (GLUCAGEN 07-2018 Intramuscu ity of DIAGNOSTIC 23:48: 04:46 lar, PRN, [place] KIT) 16 :24 Starting Medical injection 1 on [facility] Branch mg 07/20/22 at 1848, Until [...] status changes. metoprolol No 25mg 25 mg, [facility] ers tartrate 07-20 Oral, Q6H, ity of [...] 00 :00 dose, On Medica l mg [facility] Branch 07/20/22 at 1300, LORI furosemide [...] [place] mg 00 :00 dose, On Medical [facility] Branch 07/20/22 at 1115, LORI Trelegy Trelegy 2020- No Meghana 1 puff Com mon Ellipta Ellipta 2-12 06-11 [place] [facility] 00:00: 00:00 - CHI 00 :00 [facility] HydrOXYzine HydrOXYzine Yes Meghana 1 tablet Common HCl HCl 05-11 [place] as needed Spirit 00:00: - CHI 00 [facility] Ozempic Ozempic 2020- No Meghana 0.5 mg Com mon 05-11 0824 [place] [facility] 00:00: 00:00 - CHI 00 :00 [facility] Rae Mcbride Yes Meghana as Common 1-02 [place] directed Spirit 00:00: - CHI 00 [facility] ProAir ProAir Yes Meghana 2 puffs as Comm on RespiClick RespiClick [place] needed [facility] [place] 3 [place] 3 Yes Meghana 1 capsule Com mon [place] [facility] Montelukast Montelukast Yes Meghana 1 tablet Common Sodium Sodium [place] [facility] evening [facility] Lipitor Lipitor Yes Meghana 1 tablet Comm on [place] [facility] Losartan Losartan Yes Meghana 1 tablet Co mmon Potassium Potassium [place] Spir it [facility] Metoprolol Metoprolol Yes Meghana 1 tablet Common Tartrate Tartrate [place] with food S pirit [facility] Metformin Metformin Yes Meghana 1 tablet Common HCl HCl [place] with a Spirit meal [facility] Immunizations Ordered Immunization Filled Immunization Date Status Commen ts Source Name Name FLUZONE HIGH DOSE FLUZONE HIGH DOSE 2019-09-14 Completed Common Spirit OVER 65 OVER 65 00:00:00 [facility] Vital Signs Vital Name Observation Time Observation Value Comments Source Systolic blood 2022-07-28 01:43:00 99 mm[Hg] Univer sity of pressure [facility] Diastolic blood 2022-07-28 01:43:00 58 mm[facility]Hg] [facility] 2022-07-28 01:40:00 97 /min [facility] Body temperature 2022-07-28 01:40:00 36.56 [facility]vi [facility] rate 2022-07-28 01:40:00 18 /min [facility] Oxygen saturation in 2022-07-28 01:40:00 90 /min [facility] Arterial blood by [facility] [place] [facility] Pulse oximetry Branch Body height 2022-07-26 17:49:00 172.7 cm [facility] Body weight 2022-07-26 17:49:00 96.163 kg [facility] BMI 2022-07-26 17:49:00 32.23 kg/m2 [facility] Systolic blood 2022-07-26 23:31:00 102 mm[Hg] Univer sity of pressure [facility] Diastolic blood 2022-07-26 23:31:00 59 mm[Hg] Unive rsity of [facility] Heart rate 2022-07-26 23:31:00 85 /min [facility] Body temperature 2022-07-26 23:31:00 36.56 [facility] Respiratory rate 2022-07-26 23:24:00 19 /min [facility] Oxygen saturation in 2022-07-26 23:24:00 93 /min [facility] Arterial blood by [facility] [place] [facility] Pulse oximetry [place] Body height 2022-07-26 17:49:00 172.7 cm [facility] Body weight 2022-07-26 17:49:00 96.163 kg [facility] BMI 2022-07-26 17:49:00 32.23 kg/m2 [facility] Procedures Procedure Date / Time Performing Clinician Source Performed POCT GLUCOSE (AUTOMATED) 2022-07-27 16:45:00 Berna Alcantar [facility] POCT GLUCOSE (AUTOMATED) 2022-07-27 16:45:00 Berna Alcantar [facility] MAGNESIUM 2022-07-27 10:46:00 [facility] BASIC METABOLIC PANEL (NA, 2022-07-27 10:46:00 Flora Fox [facility] K, CL, CO2, GLUCOSE, BUN, Medica l Branch CREATININE, CA) N-TERMINAL PRO-BNP 2022-07-27 10:46:00 [facility] 2022-07-27 10:46:00 [facility] (NA, 2022-07-27 10:46:00 [facility], CL, CO2, GLUCOSE, BUN, Medica l Branch CREATININE, CA) N-TERMINAL PRO-BNP 2022-07-27 10:46:00 Flora Fox of [facility] POCT GLUCOSE (AUTOMATED) 2022-07-27 10:38:00 Keo Alcantarm Uni versity of [facility] POCT GLUCOSE (AUTOMATED) 2022-07-27 10:38:00 KhbettyfeKeom Uni versity of [facility] POCT GLUCOSE (AUTOMATED) 2022-07-27 04:51:00 KhbettyfeKeom Uni versity of [facility] POCT GLUCOSE (AUTOMATED) 2022-07-27 04:51:00 Keo Alcantarm Uni versity of [facility] POCT GLUCOSE (AUTOMATED) 2022-07-27 01:10:00 Keo Alcantarm Uni versity of [facility] POCT GLUCOSE (AUTOMATED) 2022-07-27 01:10:00 KhbettyfeDavidsam Uni versity of [facility] POCT GLUCOSE (AUTOMATED) 2022-07-26 23:37:00 Keo Alcantarm Uni versity of [facility] POCT GLUCOSE (AUTOMATED) 2022-07-26 23:37:00 Keo Alcantarm Uni versity of [facility] ACTIVATED PARTIAL THRMPLAS 2022-07-26 23:10:00 [facility] [place] ACTIVATED PARTIAL THRMPLAS 2022-07-26 23:10:00 [facility] [place] CARDIAC CATHETERIZATION 2022-07-26 21:16:04 [facility] ersity of [facility] CARDIAC CATHETERIZATION 2022-07-26 21:16:04 [facility] ersity of [facility] CARDIAC CATHETERIZATION 2022-07-26 21:16:04 [facility] ersity of [facility] CARDIAC CATHETERIZATION 2022-07-26 21:16:04 [facility] CARDIAC CATHETERIZATION 2022-07-26 21:16:04 [facility] ersity of [facility] CARDIAC CATHETERIZATION 2022-07-26 21:16:04 [facility] ersity of [facility] CARDIAC CATHETERIZATION 2022-07-26 21:16:04 [facility] ersity of [facility] CARDIAC CATHETERIZATION 2022-07-26 21:16:04 [facility] ersity of [facility] CATH PROCEDURE LOG 2022-07-26 20:55:04 [facility] CATH PROCEDURE LOG 2022-07-26 20:55:04 [facility] POCT GLUCOSE (AUTOMATED) 2022-07-26 16:20:00 Berna Alcantar Uni versity of [facility] POCT GLUCOSE (AUTOMATED) 2022-07-26 16:20:00 Berna Alcantar Uni versity of [facility] POCT GLUCOSE (AUTOMATED) 2022-07-26 12:30:00 Berna Alcantar Uni versity of [facility] POCT GLUCOSE (AUTOMATED) 2022-07-26 12:30:00 Berna Alcantar Uni versity of [facility] POCT GLUCOSE (AUTOMATED) 2022-07-26 11:08:00 Berna Alcantar Uni versity of [facility] POCT GLUCOSE (AUTOMATED) 2022-07-26 11:08:00 Berna Alcantar Uni versity of [facility] POCT GLUCOSE (AUTOMATED) 2022-07-26 08:52:00 Berna Alcantar Uni versity of [facility] POCT GLUCOSE (AUTOMATED) 2022-07-26 08:52:00 Berna Alcantar Uni versity of [facility] MAGNESIUM 2022-07-26 05:35:00 [facility] BASIC [facility]ABOLIC PANEL (NA, 2022-07-26 05:35:00 Tobias [facility] K, CL, CO2, GLUCOSE, BUN, Medica l Branch CREATININE, CA) ACTIVATED PARTIAL THRMPLAS 2022-07-26 05:35:00 Evelio Soni [facility] EXTRA TUBE LAV 2022-07-26 05:35:00 [facility] MAGNESIUM 2022-07-26 05:35:00 Tobias [facility] BASIC METABOLIC PANEL (NA, 2022-07-26 05:35:00 Tobias [facility] K, CL, CO2, GLUCOSE, BUN, Medica l Branch CREATININE, CA) ACTIVATED PARTIAL THRMPLAS 2022-07-26 05:35:00 Evelio Soni [facility] EXTRA TUBE LAV 2022-07-26 05:35:00 [facility] POCT GLUCOSE (AUTOMATED) 2022-07-26 05:20:00 Berna Alcantar [facility] PO[facility] GLUCOSE (AUTOMATED) 2022-07-26 05:20:00 Berna Alcantar [facility] POCT GLUCOSE (AUTOMATED) 2022-07-26 01:45:00 Berna Alcantar [facility] POCT GLUCOSE (AUTOMATED) 2022-07-26 01:45:00 Berna Alcantar [facility] MAGNESIUM 2022-07-25 22:15:00 Tobias [facility] BASIC METABOLIC PANEL (NA, 2022-07-25 22:15:00 Tobias [facility] K, CL, CO2, GLUCOSE, BUN, Medica l Branch CREATININE, CA) ACTIVATED PARTIAL THRMPLAS 2022-07-25 22:15:00 Evelio Soni [facility] MAGNESIUM 2022-07-25 22:15:00 Tobias [facility] BASIC METABOLIC PANEL (NA, 2022-07-25 22:15:00 Tobias [facility] K, CL, CO2, GLUCOSE, BUN, Medica l Branch CREATININE, CA) ACTIVATED PARTIAL THRMPLAS 2022-07-25 22:15:00 Evelio Soni niversalberto [facility] POCT GLUCOSE (AUTOMATED) 2022-07-25 21:22:00 Berna Alcantar Uni versity of [facility] POCT GLUCOSE (AUTOMATED) 2022-07-25 21:22:00 Berna Alcantar Uni versity of [facility] POCT GLUCOSE (AUTOMATED) 2022-07-25 20:46:00 Berna Alcantar Uni versity of [facility] POCT GLUCOSE (AUTOMATED) 2022-07-25 20:46:00 Berna Alcantar Uni versity of [facility] POCT GLUCOSE (AUTOMATED) 2022-07-25 17:09:00 Berna Alcantar Uni versity of [facility] POCT GLUCOSE (AUTOMATED) 2022-07-25 17:09:00 Berna Alcantar Uni versity of [facility] HB ECG ROUTINE & RHYTHM 2022-07-25 14:53:13 Berna Collado Uni versity of [facility] ACTIVATED PARTIAL THRMPLAS 2022-07-25 14:53:00 [facility] ACTIVATED PARTIAL THRMPLAS 2022-07-25 14:53:00 Evelio Soni niversalberto [facility] POCT GLUCOSE (AUTOMATED) 2022-07-25 13:12:00 Berna Alcantar Uni versity of [facility] POCT GLUCOSE (AUTOMATED) 2022-07-25 13:12:00 Berna Alcantar Uni versity of [facility] MAGNESIUM 2022-07-25 11:36:00 Tobias [facility] BASIC METABOLIC PANEL (NA, 2022-07-25 11:36:00 Tobias [facility] K, CL, CO2, GLUCOSE, BUN, Medica l Branch CREATININE, CA) CBC WITH DIFF 2022-07-25 11:36:00 Tobias [facility] MAGNESIUM 2022-07-25 11:36:00 Tobias [facility] BASIC METABOLIC PANEL (NA, 2022-07-25 11:36:00 Tobias [facility] K, CL, CO2, GLUCOSE, BUN, Medica l Branch CREATININE, CA) CBC WITH DIFF 2022-07-25 11:36:00 Tob[facility] ACTIVATED PARTIAL THRMPLAS 2022-07-25 05:15:00 Evelio Soni [facility] [facility] ACTIVATED PARTIAL THRMPLAS 2022-07-25 05:15:00 [facility]ATED) 2022-07-25 01:58:00 Berna Alcantar [facility] POCT GLUCOSE (AUTOMATED) 2022-07-25 01:58:00 Berna Alcantar [facility] MAGNESIUM 2022-07-24 22:34:00 Tobias [facility] BASIC METABOLIC PANEL (NA, 2022-07-24 22:34:00 Tobias [facility] K, CL, CO2, GLUCOSE, BUN, Medica l Branch CREATININE, CA) ACTIVATED PARTIAL THRMPLAS 2022-07-24 22:34:00 Evelio Soni [facility] MAGNESIUM 2022-07-24 22:34:00 Tobias [facility] BASIC METABOLIC PANEL (NA, 2022-07-24 22:34:00 Tobias [facility] K, CL, CO2, GLUCOSE, BUN, Medica l Branch CREATININE, CA) ACTIVATED PARTIAL THRMPLAS 2022-07-24 22:34:00 Evelio Soni [facility] POCT GLUCOSE (AUTOMATED) 2022-07-24 20:43:00 Berna Alcantar [facility] POCT GLUCOSE (AUTOMATED) 2022-07-24 20:43:00 Berna Alcantar [facility] POCT GLUCOSE (AUTOMATED) 2022-07-24 17:11:00 Berna Alcantar [facility] POCT GLUCOSE (AUTOMATED) 2022-07-24 17:11:00 Berna Alcantar [facility] POCT GLUCOSE (AUTOMATED) 2022-07-24 14:11:00 Berna Alcantar [facility] POCT GLUCOSE (AUTOMATED) 2022-07-24 14:11:00 Berna Alcantar [facility] ACTIVATED PARTIAL THRMPLAS 2022-07-24 11:37:00 [facility] ACTIVATED PARTIAL THRMPLAS 2022-07-24 11:37:00 [facility] 2022-07-24 05:51:00 Evelio Soni [facility] BASIC METABOLIC PANEL (NA, 2022-07-24 05:51:00 [facility], CO2, GLUCOSE, BUN, Medica l Branch CREATININE, CA) PROTHROMBIN TIME / INR 2022-07-24 05:51:00 Evelio Soni [facility] ACTIVATED PARTIAL THRMPLAS 2022-07-24 05:51:00 Evelio Soni [facility] MAGNESIUM 2022-07-24 05:51:00 Evelio Soni [facility] BASIC METABOLIC PANEL (NA, 2022-07-24 05:51:00 [facility], [facility], CO2, GLUCOSE, BUN, Medica l Branch CREATININE, CA) PROTHROMBIN TIME / INR 2022-07-24 05:51:00 Evelio Soni [facility] ACTIVATED PARTIAL THRMPLAS 2022-07-24 05:51:00 Evelio Soni [facility] POCT GLUCOSE (AUTOMATED) 2022-07-24 01:53:00 Atul Stephens Rafaela [facility] POCT GLUCOSE (AUTOMATED) 2022-07-24 01:53:00 Atul Stephens Rafaela [facility] POCT GLUCOSE (AUTOMATED) 2022-07-23 21:31:00 Atul Stephens Rafaela [facility] POCT GLUCOSE (AUTOMATED) 2022-07-23 21:31:00 Atul Stephens Rafaela [facility] POCT GLUCOSE (AUTOMATED) 2022-07-23 17:08:00 Atul Stephens [facility] ([facility]OMATED) 2022-07-23 17:08:00 Atul Stephens Rafaela [facility] POCT GLUCOSE (AUTOMATED) 2022-07-23 12:46:00 Atul Stephens Rafaela [facility] POCT GLUCOSE (AUTOMATED) 2022-07-23 12:46:00 Atul Stephens Rafaela [facility] MAGNESIUM 2022-07-23 09:15:00 [facility]OLIC PANEL (NA, 2022-07-23 09:15:00 [facility], CL, CO2, GLUCOSE, BUN, Medica l Branch CREATININE, CA) CBC WITH DIFF 2022-07-23 09:15:00 [facility] N-TERMINAL PRO-BNP 2022-07-23 09:15:00 George Vizcaino [facility] MAGNESIUM 2022-07-23 09:15:00 [facility] BASIC METABOLIC PANEL (NA, 2022-07-23 09:15:00 [facility] K, CL, CO2, GLUCOSE, BUN, Medica l Branch CREATININE, CA) CBC WITH DIFF 2022-07-23 09:15:00 [facility] N-TERMINAL PRO-BNP 2022-07-23 09:15:00 George Vizcaino [facility] POCT GLUCOSE (AUTOMATED) 2022-07-23 02:12:00 Atul Stephens Uni [facility] POCT GLUCOSE (AUTOMATED) 2022-07-23 02:12:00 Atul Stephens [facility] POCT GLUCOSE (AUTOMATED) 2022-07-22 21:12:00 Atul Stephens Rafaela [facility] POCT GLUCOSE (AUTOMATED) 2022-07-22 21:12:00 Atul Stephens [facility] POCT GLUCOSE (AUTOMATED) 2022-07-22 16:30:00 Atul Stephens Rafaela [facility] POCT GLUCOSE (AUTOMATED) 2022-07-22 16:30:00 Atul Stephens [facility] POCT GLUCOSE (AUTOMATED) 2022-07-22 12:51:00 Atul Stephens [facility] POCT GLUCOSE (AUTOMATED) 2022-07-22 12:51:00 Atul Stephens [facility] PHOSPHORUS 2022-07-22 08:19:00 Atul Stephens [facility] MAGNESIUM 2022-07-22 08:19:00 Angelo [facility] HEPATIC FUNCTION PANEL 2022-07-22 08:19:[address] [facility] ([id number]) (ALB,T.PRO,BILI Medical Branch T,BU/BC,ALT,AST,ALK PHOS) BASIC METABOLIC PANEL (NA, 2022-07-22 08:19:00 Atul Stephens [facility] K, CL, CO2, GLUCOSE, BUN, Medica l Branch CREATININE, CA) CBC WITH DIFF 2022-07-22 08:19:00 [facility] 2022-07-22 08:19:00 [facility] 2022-07-22 08:19:00 Atul Stephens [facility] MAGNESIUM 2022-07-22 08:19:00 Angelo [facility] HEPATIC FUNCTION PANEL 2022-07-22 08:19:[address] [facility] ([id number]) (ALB,T.PRO,BILI Medical Branch T,BU/BC,ALT,AST,ALK PHOS) BASIC METABOLIC PANEL (NA, 2022-07-22 08:19:00 Atul Stephens [facility] K, CL, CO2, GLUCOSE, BUN, Medica l Branch CREATININE, CA) CBC WITH DIFF 2022-07-22 08:19:00 Atul Stephens o f [facility] N-TERMINAL PRO-BNP 2022-07-22 08:19:00 [facility] PO[facility] GLUCOSE (AUTOMATED) 2022-07-22 01:44:00 Atul Stephens versalberto of [facility] POCT GLUCOSE (AUTOMATED) 2022-07-22 01:44:00 Atul Stephens versalberto of [facility] POCT GLUCOSE (AUTOMATED) 2022-07-21 21:52:00 Atul Stephens of [facility] POCT GLUCOSE (AUTOMATED) 2022-07-21 21:52:00 Atul Stephens versity of [facility] POCT GLUCOSE (AUTOMATED) 2022-07-21 16:43:00 Atul Stephens versalberto of [facility] POCT GLUCOSE (AUTOMATED) 2022-07-21 16:43:00 Atul [facility] TRANSTHORACIC ECHO (TTE) 2022-07-21 15:28:00 Atul Stephens [facility] W/ CONTRAST Medical [facility] TRANSTHORACIC ECHO (TTE) 2022-07-21 15:28:00 Atul Stephens [facility] W/ CONTRAST [facility] POCT GLUCOSE (AUTOMATED) 2022-07-21 15:00:00 Atul Stephens versalberto of [facility] POCT GLUCOSE (AUTOMATED) 2022-07-21 15:00:00 Atul Stephens versity of [facility] POCT GLUCOSE (AUTOMATED) 2022-07-21 13:04:00 Atul Stephens versalberto of [facility] POCT GLUCOSE (AUTOMATED) 2022-07-21 13:04:00 Atul Stephens [facility] MAGNESIUM 2022-07-21 09:41:00 Atul Stephens [facility] TROPONIN I 2022-07-21 09:41:00 Atul Stephens [facility] BASIC METABOLIC PANEL (NA, 2022-07-21 09:41:00 Atul Stephens [facility] K, CL, CO2, GLUCOSE, BUN, Medica l Branch CREATININE, CA) LIPID PANEL ([id number])(TOTAL 2022-07-21 09:41:00 Ana Luisa Grimm [facility]IGLY[facility], HDL) CBC WITH DIFF 2022-07-21 09:41:00 Angelo [facility] N-TERMINAL PRO-BNP 2022-07-21 09:41:00 Atul Stephens [facility] MAGNESIUM 2022-07-21 09:41:00 Angelo [facility] TROPONIN I 2022-07-21 09:41:00 Atul Stephens [facility] BASIC METABOLIC PANEL (NA, 2022-07-21 09:41:00 Atul Stephens [facility] K, CL, CO2, GLUCOSE, BUN, Medica l Branch CREATININE, CA) LIPID PANEL (54330)(TOTAL 2022-07-21 09:41:00 Ana Luisa Grimm [facility] CHOLESTEROL, [facility] [place] TRIGLYCERIDES, HDL) CBC WITH DIFF 2022-07-21 09:41:00 Atul Stephens [facility] N-TERMINAL PRO-BNP 2022-07-21 09:41:00 Atul Stephens [facility] POCT GLUCOSE (AUTOMATED) 2022-07-21 04:09:00 Atul Stephens [facility] POCT GLUCOSE (AUTOMATED) 2022-07-21 04:09:00 Atul Stephens [facility] BLOOD CULTURE SCREEN 2022-07-21 01:45:00 Atul Stephens [facility] BLOOD CULTURE WORKUP 2022-07-21 01:45:00 Atul Stephens [facility] GRAM POSITIVE BLOOD 2022-07-21 01:45:00 Atul Stephens [facility] PATHOGENS DNA [facility] PROBE-AEROBIC BLOOD CULTURE SCREEN 2022-07-21 01:45:00 Atul Stephens [facility] BLOOD CULTURE WORKUP 2022-07-21 01:45:00 Atul Stephens [facility] GRAM POSITIVE BLOOD 2022-07-21 01:45:00 Atul Stephens [facility] PATHOGENS DNA [facility] PROBE-AEROBIC POCT GLUCOSE (AUTOMATED) 2022-07-21 01:26:00 Atul Stephens [facility] POCT GLUCOSE (AUTOMATED) 2022-07-21 01:26:00 Atul Stephens [facility] BLOOD CULTURE SCREEN 2022-07-20 23:43:00 Atul Stephens [facility] BLOOD CULTURE SCREEN 2022-07-20 23:43:00 Atul Stephens [facility] POCT GLUCOSE (AUTOMATED) 2022-07-20 22:24:00 Atul Stephens [facility] POCT GLUCOSE (AUTOMATED) 2022-07-20 22:24:00 Atul Stephens [facility] URINALYSIS 2022-07-20 17:41:00 Filomena [facility] URINALYSIS 2022-07-20 17:41:00 Filomena [facility] XR CHEST 1 VW 2022-07-20 16:16:00 Charlene Butt [facility] XR CHEST 1 VW 2022-07-20 16:16:00 Filomena [facility] TROPONIN I 2022-07-20 16:10:00 Filomena [facility] COMP. METABOLIC PANEL 2022-07-20 16:10:00 Charlene Butt [facility] ([id number]) [facility] CBC WITH DIFF 2022-07-20 16:10:00 Filomena [facility] GLYCOSYLATED HEMOGLOBIN 2022-07-20 16:10:00 Atul Stephens [facility] (A1C) Medical Branch PROTHROMBIN TIME / INR 2022-07-20 16:10:00 Charlene Butt [facility] ACTIVATED PARTIAL THRMPLAS 2022-07-20 16:10:00 [facility] N-TERMINAL PRO-BNP 2022-07-20 16:10:00 Charlene Butt [facility] COVID-19 (ID NOW RAPID 2022-07-20 16:10:00 Charlene Butt [facility] TESTING) Medical Branch LAB ONLY COVID 2022-07-20 16:10:00 Charlene Butt [facility] TROPONIN I 2022-07-20 16:10:00 Charlene Butt [facility] COMP. METABOLIC PANEL 2022-07-20 16:10:00 Charlene Butt [facility] ([id number]) Medical Branch CBC WITH DIFF 2022-07-20 16:10:00 Charlene Butt [facility] GLYCOSYLATED HEMOGLOBIN 2022-07-20 16:10:00 Atul Stephens [facility] (A1C) Medical Branch PROTHROMBIN TIME / INR 2022-07-20 16:10:00 Charlene Butt [facility] ACTIVATED PARTIAL THRMPLAS 2022-07-20 16:10:00 Saniya Butt [facility] N-TERMINAL PRO-BNP 2022-07-20 16:10:00 Charlene Butt [facility] COVID-19 (ID NOW RAPID 2022-07-20 16:10:00 Charlene Butt [facility] TESTING) Medical Branch LAB ONLY COVID 2022-07-20 16:10:00 Charlene Butt [facility] INTERPRETATION [facility] HB ECG ROUTINE & RHYTHM 2022-07-20 16:05:41 Charlene Butt [facility] HB ECG ROUTINE & RHYTHM 2022-07-20 16:05:41 Charlene Butt [facility] NOTICE OF PRIVACY 2022-07-20 15:52:39 Doctor Unassigned, [facility] [place] NOTICE OF PRIVACY 2022-07-20 15:52:39 Doctor Unassigned, [facility] HOSPITAL ADMISSION 2022-07-20 05:01:00 Doctor Unassigned, [facility] HOSPITAL ADMISSION 2022-07-20 05:01:00 Doctor Unassigned, [facility] [place] Encounters Start End Encounter Admission Attending Care Care Encounter Source Date/Time Date/Time Type Type Clinicians Facility Department ID 2022-09-03 Outpatient 3 [id number] [place] [id number] [facility] 08:24:57 [facility] [place] 2022-09-02 Outpatient 3 [id number] ENC[place] REF [id number] [facility] 14:07:05 [facility] [place] 2021-12-[address] [facility] [id number] Common 11:06:38 Meghana [id number] [facility] 2022-08-15 2022-08-28 Inpatient 3 Julio ENCPL CRD [id number] [facility] 18:17:00 12:00:00 Jose [facility] [place] 2022-07-29 2022-07-29 Transition ARIANE FosterKhadar [id number] Univers 00:00:00 00:00:00 of Care [place] [id number] it y of [place] [id number] [facility] 403 Branch 2022-07-20 2022-07-27 Hospital Charlene Butt 1.2.84 [id number] [id number] Univers 11:00:00 21:45:00 Encounter Atul Stephens [id number] [facility] 4.2.7.2 .686 [place] [id number] [facility] 089 Branch 2022-07-20 2022-07-[address] [facility] [id number] Univers 11:00:00 21:45:00 [facility] 2022-07-26 2022-07-26 Surgery JAMAL Cannon [id number] Univers 18:03:00 21:03:00 [place] GORDON [id number] it y [facility] 4.2.7.2.686 Jonathan as [id number] [facility] 840 Branch 2020-04-04 2020-04-04 [facility] [id number] Common 13:00:00 13:00:[address] [facility] 2020-03-22 2020-03-22 [facility] [id number] Common 15:20:00 15:20:[address] [facility] 2019-12-22 2019-12-22 [facility] [id number] Common 10:40:00 10:40:[address] [facility] 2019-12-15 2019-12-15 [facility] [id number] Common 14:00:00 14:00:[address] [facility] 2019-09-14 2019-09-14 [facility] [id number] Common 13:20:00 13:20:[address] [facility] 2019-05-11 2019-05-11 [facility] [id number] Common 13:00:00 13:00:[address] [facility] 2018-11-11 2018-11-11 [facility] [id number] Common 13:00:00 13:00:[address] [facility] 2018-10-19 2018-10-19 [facility] [id number] Common 08:30:00 08:30:[address] [facility] 2018-04-22 2018-04-22 [facility] [id number] Common 14:00:00 14:00:00 [facility] it Road [facility] Results Test Description Test Time Test Comments Results Result Comments Source POCT GLUCOSE (AUTOMATED) 2022-07-27 17:05:15 Test Item Value Reference Range Interpretation Comme nts POCT GLU (test code = 1914802805) 264 mg/dL 70-110 H Lab Interpretation (test code = 50439-5) [facility] 17:05:15 Test Item Value Reference Range Interpretation Comments POCT GLU (test code = 4560866755) 264 mg/dL 70-110 H Lab Interpretation (test code = Abnormal 95029-9) [facility] [id number] 15:17:32 Test Item Value Reference Range Interpretation Comments NT-proBNP (test code 1090 pg/mL See_Comment H [Autom ated = 2982198046) message] The system which generated this result transmitted reference range : <=125. The reference range was not used to interpret this result as normal/abnormal . ROSLYN (test code = ROSLYN) Biotin has been reported to cause a negative bias, interpret results relative to patient's use of biotin. Lab Interpretation Abnormal (test code = 88912-5) [facility] [id number] 15:17:32 Test Item Value Reference Range Interpretation Comments NT-proBNP (test code 1090 pg/mL See_Comment H [Autom ated = 9135620255) message] The system which generated this result transmitted reference range : <=125. The reference range was not used to interpret this result as normal/abnormal . ROSLYN (test code = ROSLYN) Biotin has been reported to cause a negative bias, interpret results relative to patient's use of biotin. Lab Interpretation Abnormal (test code = 40694-9) [facility]17 11:45:45 Test Item Value Reference Range Interpretation Comments MAGNESIUM (test code = 4892704659) 1.9 mg/dL 1.7-2.4 Lab Interpretation (test code = Normal 09452-6) [facility] (NA, K, CL, CO2, GLUCOSE, BUN, CREATININE, CA)2022-07-27 11:45:45 Test Item Value Reference Range Interpretation Comments NA (test code = 130 mmol/L 135-145 L 1022132983) K (test code = 4.1 mmol/L 3.5-5 8627206454) CL (test code = 89 mmol/L 98-108 L 3292082086) CO2 TOTAL (test code = 37 mmol/L 23-31 H 5283762445) AGAP (test code = 2-16 5312746219) BUN (test code = 32 mg/dL 7-23 H 3931355468) GLUCOSE (test code = 180 mg/dL 70-110 H 2163623113) CREATININE (test code = 0.81 mg/dL 0.6-1.25 0603443445) CALCIUM (test code = 8.5 mg/dL 8.6-10.6 L 4742444999) eGFR (test code = mL/min/1.73m2 1165067369) ROSLYN (test code = ROSLYN) Association of [...] tests). Lab Interpretation Abnormal (test code = 10990-2) [facility] 11:45:45 Test Item Value Reference Range Interpretation Comments MAGNESIUM (test code = 9014304679) 1.9 mg/dL 1.7-2.4 Lab Interpretation (test code = Normal 59198-3) [facility] (NA, K, CL, CO2, GLUCOSE, BUN, CREATININE, CA)2022-07-27 11:45:45 Test Item Value Reference Range Interpretation Comments NA (test code = 130 mmol/L 135-145 L 3603344819) K (test code = 4.1 mmol/L 3.5-5 6176753528) CL (test code = 89 mmol/L 98-108 L 0830878115) CO2 TOTAL (test code = 37 mmol/L 23-31 H 9218484984) AGAP (test code = 2-16 0472865116) BUN (test code = 32 mg/dL 7-23 H 7379493447) GLUCOSE (test code = 180 mg/dL 70-110 H 0479259420) CREATININE (test code = 0.81 mg/dL 0.6-1.25 6609616840) CALCIUM (test code = 8.5 mg/dL 8.6-10.6 L 3229428530) eGFR (test code = mL/min/1.73m2 1331397597) ROSLYN (test code = ROSLYN) Association of [...] tests). Lab Interpretation Abnormal (test code = 51622-9) [facility] GLUCOSE (AUTOMATED)2022-07-27 10:39:46 Test Item Value Reference Range Interpretation Comments POCT GLU (test code = 4392860460) 198 mg/dL 70-110 H Lab Interpretation (test code = Abnormal 15630-3) [facility] GLUCOSE (AUTOMATED)2022-07-27 10:39:46 Test Item Value Reference Range Interpretation Comments POCT GLU (test code = 9392590533) 198 mg/dL 70-110 H Lab Interpretation (test code = Abnormal 00643-7) [facility] GLUCOSE (AUTOMATED)2022-07-27 04:52:50 Test Item Value Reference Range Interpretation Comments POCT GLU (test code = 1890810922) 213 mg/dL 70-110 H Lab Interpretation (test code = Abnormal 63245-8) [facility] GLUCOSE (AUTOMATED)2022-07-27 04:52:50 Test Item Value Reference Range Interpretation Comments POCT GLU (test code = 1074717056) 213 mg/dL 70-110 H Lab Interpretation (test code = Abnormal 48129-4) [facility] GLUCOSE (AUTOMATED)2022-07-27 01:10:58 Test Item Value Reference Range Interpretation Comments POCT GLU (test code = 4072088038) 284 mg/dL 70-110 H Lab Interpretation (test code = Abnormal 20845-8) [facility] GLUCOSE (AUTOMATED)2022-07-27 01:10:58 Test Item Value Reference Range Interpretation Comments POCT GLU (test code = 4816684973) 284 mg/dL 70-110 H Lab Interpretation (test code = Abnormal 48499-5) [facility] GLUCOSE (AUTOMATED)2022-07-26 23:39:10 Test Item Value Reference Range Interpretation Comments POCT GLU (test code = 7513251366) 199 mg/dL 70-110 H Lab Interpretation (test code = Abnormal 21676-4) [facility] GLUCOSE (AUTOMATED)2022-07-26 23:39:10 Test Item Value Reference Range Interpretation Comments POCT GLU (test code = 2530531313) 199 mg/dL 70-110 H Lab Interpretation (test code = Abnormal 68658-7) [facility] use with [facility] Infusion[facility]2022-07-26 23:32:33 Test Item Value Reference Range Interpretation Comments APTT Patient (test code = See_Comment [ Automated message] 3173-2) The system [employer] generated this result transmitted ref erence range: 26 - 36 Seconds. The re ference range was not u sed to interpret this result as normal/abnor mal. Lab Interpretation (test Normal code = 55624-5) [facility] use with [facility] Infusion)2022-07-26 23:32:33 Test Item Value Reference Range Interpretation Comments APTT Patient (test code = See_Comment [ Automated message] 3173-2) The system [employer] generated this result transmitted ref erence range: 26 - 36 Seconds. The re ference range was not u sed to interpret this result as normal/abnor mal. Lab Interpretation (test Normal code = 44357-1) [facility] GLUCOSE (AUTOMATED)2022-07-26 16:22:25 Test Item Value Reference Range Interpretation Comments POCT GLU (test code = 0702993585) 167 mg/dL 70-110 H Lab Interpretation (test code = Abnormal 31368-8) [facility] GLUCOSE (AUTOMATED)2022-07-26 16:22:25 Test Item Value Reference Range Interpretation Comments POCT GLU (test code = 6624020146) 167 mg/dL 70-110 H Lab Interpretation (test code = Abnormal 05798-5) [facility] GLUCOSE (AUTOMATED)2022-07-26 12:31:04 Test Item Value Reference Range Interpretation Comments POCT GLU (test code = 2846978765) 164 mg/dL 70-110 H Lab Interpretation (test code = Abnormal 03981-7) [facility] GLUCOSE (AUTOMATED)2022-07-26 12:31:04 Test Item Value Reference Range Interpretation Comments POCT GLU (test code = 6302839159) 164 mg/dL 70-110 H Lab Interpretation (test code = Abnormal 13886-4) [facility] GLUCOSE (AUTOMATED)2022-07-26 11:09:37 Test Item Value Reference Range Interpretation Comments POCT GLU (test code = 8011941256) 184 mg/dL 70-110 H Lab Interpretation (test code = Abnormal 85307-4) [facility] GLUCOSE (AUTOMATED)2022-07-26 11:09:37 Test Item Value Reference Range Interpretation Comments POCT GLU (test code = 0715345223) 184 mg/dL 70-110 H Lab Interpretation (test code = Abnormal 23259-1) [facility] GLUCOSE (AUTOMATED)2022-07-26 08:53:59 Test Item Value Reference Range Interpretation Comments POCT GLU (test code = 1447344048) 200 mg/dL 70-110 H Lab Interpretation (test code = Abnormal 46341-0) [facility] GLUCOSE (AUTOMATED)2022-07-26 08:53:59 Test Item Value Reference Range Interpretation Comments POCT GLU (test code = 7016935645) 200 mg/dL 70-110 H Lab Interpretation (test code = Abnormal 62505-5) [facility] GLUCOSE (AUTOMATED)2022-07-26 05:20:56 Test Item Value Reference Range Interpretation Comments POCT GLU (test code = 5785746192) 197 mg/dL 70-110 H Lab Interpretation (test code = Abnormal 15685-3) [facility] GLUCOSE (AUTOMATED)2022-07-26 05:20:56 Test Item Value Reference Range Interpretation Comments POCT GLU (test code = 7043711385) 197 mg/dL 70-110 H Lab Interpretation (test code = Abnormal 63918-9) [facility] [id number] 03:01:42 Test Item Value Reference Range Interpretation Comments Blood Culture-Aerobic No organisms No growth Previo us (test code = 52821-1) isolated prelim inary verified result was Culture In Progress on 07/21/2022 at 11 10 CDTPrevious preliminary verified result was No growth a t 24 hours on 07/21/2022 at 01 12 CDTPrevious preliminary verified result was No growth a t 48 hours on 07/22/2022 at 01 12 CDTPrevious preliminary verified result was No growth a t 72 hours on 07/23/2022 at 22 02 CDT Blood No organisms No growth Previous Culture-Anaerobic isolated preliminar y (test code = 67134-3) verifi ed result was Culture In Progress on 07/21/2022 at 11 10 CDTPrevious preliminary verified result was No growth a t 24 hours on 07/21/2022 at 01 12 CDTPrevious preliminary verified result was No growth a t 48 hours on 07/22/2022 at 01 12 CDTPrevious preliminary verified result was No growth a t 72 hours on 07/23/2022 at 02 CDT Lab Interpretation Normal (test code = 85287-5) [facility] CULTURE [id number] 03:01:42 Test Item Value Reference Range Interpretation Comments Blood Culture-Aerobic No organisms No growth Previo us (test code = 49030-9) isolated prelim inary verified result was Culture In Progress on 07/21/2022 at 11 10 CDTPrevious preliminary verified result was No growth a t 24 hours on 07/21/2022 at 01 12 CDTPrevious preliminary verified result was No growth a t 48 hours on 07/22/2022 at 01 12 CDTPrevious preliminary verified result was No growth a t 72 hours on 07/23/2022 at 22 02 CDT Blood No organisms No growth Previous Culture-Anaerobic isolated preliminar y (test code = 15497-0) verifi ed result was Culture In Progress on 07/21/2022 at 11 10 CDTPrevious preliminary verified result was No growth a t 24 hours on 07/21/2022 at 01 12 CDTPrevious preliminary verified result was No growth a t 48 hours on 07/22/2022 at 01 12 CDTPrevious preliminary verified result was No growth a t 72 hours on 07/23/2022 at 22 02 CDT Lab Interpretation Normal (test code = 13479-4) [facility] 01:46:28 Test Item Value Reference Range Interpretation Comments POCT GLU (test code = 8823393247) 142 mg/dL 70-110 H Lab Interpretation (test code = Abnormal 66933-5) [facility] GLUCOSE (AUTOMATED)2022-07-26 01:46:28 Test Item Value Reference Range Interpretation Comments POCT GLU (test code = 9449612859) 142 mg/dL 70-110 H Lab Interpretation (test code = Abnormal 93580-3) [facility] GLUCOSE (AUTOMATED)2022-07-25 21:23:27 Test Item Value Reference Range Interpretation Comments POCT GLU (test code = 5490399125) 159 mg/dL 70-110 H Lab Interpretation (test code = Abnormal 76756-3) [facility] GLUCOSE (AUTOMATED)2022-07-25 21:23:27 Test Item Value Reference Range Interpretation Comments POCT GLU (test code = 4144399679) 159 mg/dL 70-110 H Lab Interpretation (test code = Abnormal 34365-8) [facility] GLUCOSE (AUTOMATED)2022-07-25 20:47:32 Test Item Value Reference Range Interpretation Comments POCT GLU (test code = 6570969123) 151 mg/dL 70-110 H Lab Interpretation (test code = Abnormal 41199-2) [facility] GLUCOSE (AUTOMATED)2022-07-25 20:47:32 Test Item Value Reference Range Interpretation Comments POCT GLU (test code = 1113055893) 151 mg/dL 70-110 H Lab Interpretation (test code = Abnormal 05770-8) [facility] GLUCOSE (AUTOMATED)2022-07-25 17:16:01 Test Item Value Reference Range Interpretation Comments POCT GLU (test code = 6062248850) 389 mg/dL 70-110 H Lab Interpretation (test code = Abnormal 45686-7) [facility] GLUCOSE (AUTOMATED)2022-07-25 17:16:01 Test Item Value Reference Range Interpretation Comments POCT GLU (test code = 0100724080) 389 mg/dL 70-110 H Lab Interpretation (test code = Abnormal 94339-0) [facility] 15:08:51 Test Item Value Reference Range Interpretation Comments APTT Patient (test code = See_Comment [ Automated message] 3173-2) The system [employer] generated this result transmitted ref erence range: 26 - 36 Seconds. The re ference range was not u sed to interpret this result as normal/abnor mal. Lab Interpretation (test Normal code = 63366-3) [facility]22-[facility]-25 15:08:51 Test Item Value Reference Range Interpretation Comments APTT Patient (test code = See_Comment [ Automated message] 3173-2) The system [employer] generated this result transmitted ref erence range: 26 - 36 Seconds. The re ference range was not u sed to interpret this result as normal/abnor mal. Lab Interpretation (test Normal code = 58273-4) [facility] GLUCOSE (AUTOMATED)2022-07-25 13:22:34 Test Item Value Reference Range Interpretation Comments POCT GLU (test code = 5504694205) 168 mg/dL 70-110 H Lab Interpretation (test code = Abnormal 19813-3) [facility] GLUCOSE (AUTOMATED)2022-07-25 13:22:34 Test Item Value Reference Range Interpretation Comments POCT GLU (test code = 0259867156) 168 mg/dL 70-110 H Lab Interpretation (test code = Abnormal 81720-1) [facility] GLUCOSE (AUTOMATED)2022-07-25 01:59:34 Test Item Value Reference Range Interpretation Comments POCT GLU (test code = 2421912502) 202 mg/dL 70-110 H Lab Interpretation (test code = Abnormal 50179-6) [facility] GLUCOSE (AUTOMATED)2022-07-25 01:59:34 Test Item Value Reference Range Interpretation Comments POCT GLU (test code = 6614391621) 202 mg/dL 70-110 H Lab Interpretation (test code = Abnormal 38702-8) [facility] METABOLIC PANEL (NA, K, CL, CO2, GLUCOSE, BUN, CREATININE, CA)2022-07-24 23:06:12 Test Item Value Reference Range Interpretation Comments NA (test code = 135 mmol/L 135-145 2839264212) K (test code = 4.1 mmol/L 3.5-5 4363170072) CL (test code = 95 mmol/L 98-108 L 8538343096) CO2 TOTAL (test code = 39 mmol/L 23-31 H 2375380907) AGAP (test code = 2-16 L 3408905609) BUN (test code = 16 mg/dL 7-23 6301419857) GLUCOSE (test code = 140 mg/dL 70-110 H 6018404648) CREATININE (test code = 0.59 mg/dL 0.6-1.25 L 7898374792) CALCIUM (test code = 8.4 mg/dL 8.6-10.6 L 4456482537) eGFR (test code = mL/min/1.73m2 7309559303) ROSLYN (test code = ROSLYN) Association of [...] tests). Lab Interpretation Abnormal (test code = 37136-6) [facility] Test Item Value Reference Range Interpretation Comments MAGNESIUM (test code = 9255089693) 2.1 mg/dL 1.7-2.4 Lab Interpretation (test code = Normal 11562-5) [facility] METABOLIC PANEL (NA, K, CL, CO2, GLUCOSE, BUN, CREATININE, CA)2022-07-24 23:06:12 Test Item Value Reference Range Interpretation Comments NA (test code = 135 mmol/L 135-145 6512189097) K (test code = 4.1 mmol/L 3.5-5 0181169172) CL (test code = 95 mmol/L 98-108 L 4908911920) CO2 TOTAL (test code = 39 mmol/L 23-31 H 3650367351) AGAP (test code = 2-16 L 0509319192) BUN (test code = 16 mg/dL 7-23 0028745952) GLUCOSE (test code = 140 mg/dL 70-110 H 1726982818) CREATININE (test code = 0.59 mg/dL 0.6-1.25 L 3073565303) CALCIUM (test code = 8.4 mg/dL 8.6-10.6 L 7724798431) eGFR (test code = mL/min/1.73m2 7845311381) ROSLYN (test code = ROSLYN) Association of [...] tests). Lab Interpretation Abnormal (test code = 57244-2) [facility] Test Item Value Reference Range Interpretation Comments MAGNESIUM (test code = 1927282006) 2.1 mg/dL 1.7-2.4 Lab Interpretation (test code = Normal 93336-9) [facility] (for use with Heparin Infusion)2022-07-24 23:00:29 Test Item Value Reference Range Interpretation Comments APTT Patient (test code See_Comment H [Au tomated message] = 3173-2) The system [employer] generated this result transmitted ref erence range: 26 - 36 Seconds. The reference range was not used to int erpret this result as normal/abnormal . Lab Interpretation (test Abnormal code = 03614-7) [facility] (for use with Heparin Infusion)2022-07-24 23:00:29 Test Item Value Reference Range Interpretation Comments APTT Patient (test code See_Comment H [Au tomated message] = 3173-2) The system [employer] generated this result transmitted ref erence range: 26 - 36 Seconds. The reference range was not used to int erpret this result as normal/abnormal . Lab Interpretation (test Abnormal code = 08764-7) [facility] GLUCOSE (AUTOMATED)2022-07-24 20:44:06 Test Item Value Reference Range Interpretation Comments POCT GLU (test code = 5297727175) 161 mg/dL 70-110 H Lab Interpretation (test code = Abnormal 87663-2) [facility] GLUCOSE (AUTOMATED)2022-07-24 20:44:06 Test Item Value Reference Range Interpretation Comments POCT GLU (test code = 1831609870) 161 mg/dL 70-110 H Lab Interpretation (test code = Abnormal 90072-6) [facility] GLUCOSE (AUTOMATED)2022-07-24 17:17:45 Test Item Value Reference Range Interpretation Comments POCT GLU (test code = 0868707167) 257 mg/dL 70-110 H Lab Interpretation (test code = Abnormal 89294-0) [facility] 17:17:45 Test Item Value Reference Range Interpretation Comments POCT GLU (test code = 3099602698) 257 mg/dL 70-110 H Lab Interpretation (test code = Abnormal 40437-6) [facility] GLUCOSE (AUTOMATED)2022-07-24 14:12:13 Test Item Value Reference Range Interpretation Comments POCT GLU (test code = 5625271119) 201 mg/dL 70-110 H Lab Interpretation (test code = Abnormal 15786-3) [facility] GLUCOSE (AUTOMATED)2022-07-24 14:12:13 Test Item Value Reference Range Interpretation Comments POCT GLU (test code = 1107144320) 201 mg/dL 70-110 H Lab Interpretation (test code = Abnormal 52245-5) [facility] GLUCOSE (AUTOMATED)2022-07-24 01:57:51 Test Item Value Reference Range Interpretation Comments POCT GLU (test code = 7467025930) 214 mg/dL 70-110 H Lab Interpretation (test code = Abnormal 21885-7) [facility] GLUCOSE (AUTOMATED)2022-07-24 01:57:51 Test Item Value Reference Range Interpretation Comments POCT GLU (test code = 3345190587) 214 mg/dL 70-110 H Lab Interpretation (test code = Abnormal 29380-2) [facility] GLUCOSE (AUTOMATED)2022-07-23 21:55:56 Test Item Value Reference Range Interpretation Comments POCT GLU (test code = 9878076345) 184 mg/dL 70-110 H Lab Interpretation (test code = Abnormal 54077-3) [facility] GLUCOSE (AUTOMATED)2022-07-23 21:55:56 Test Item Value Reference Range Interpretation Comments POCT GLU (test code = 5458510841) 184 mg/dL 70-110 H Lab Interpretation (test code = Abnormal 29862-6) [facility] GLUCOSE (AUTOMATED)2022-07-23 17:27:48 Test Item Value Reference Range Interpretation Comments POCT GLU (test code = 4083250890) 259 mg/dL 70-110 H Lab Interpretation (test code = Abnormal 49472-8) [facility] GLUCOSE (AUTOMATED)2022-07-23 17:27:48 Test Item Value Reference Range Interpretation Comments POCT GLU (test code = 1968395098) 259 mg/dL 70-110 H Lab Interpretation (test code = Abnormal 02572-1) [facility] GLUCOSE (AUTOMATED)2022-07-23 13:05:59 Test Item Value Reference Range Interpretation Comments POCT GLU (test code = 2303594436) 154 mg/dL 70-110 H Lab Interpretation (test code = Abnormal 82909-4) [facility] GLUCOSE (AUTOMATED)2022-07-23 13:05:59 Test Item Value Reference Range Interpretation Comments POCT GLU (test code = 4059676606) 154 mg/dL 70-110 H Lab Interpretation (test code = Abnormal 07758-1) [facility] GLUCOSE (AUTOMATED)2022-07-23 09:58:20 Test Item Value Reference Range Interpretation Comments POCT GLU (test code = 0973991328) 177 mg/dL 70-110 H Lab Interpretation (test code = Abnormal 19247-5) [facility] GLUCOSE (AUTOMATED)2022-07-23 09:58:20 Test Item Value Reference Range Interpretation Comments POCT GLU (test code = 3673006534) 177 mg/dL 70-110 H Lab Interpretation (test code = Abnormal 31743-6) [facility] GLUCOSE (AUTOMATED)2022-07-22 21:30:57 Test Item Value Reference Range Interpretation Comments POCT GLU (test code = 5998511734) 194 mg/dL 70-110 H Lab Interpretation (test code = Abnormal 66310-9) [facility] GLUCOSE (AUTOMATED)2022-07-22 21:30:57 Test Item Value Reference Range Interpretation Comments POCT GLU (test code = 5386084775) 194 mg/dL 70-110 H Lab Interpretation (test code = Abnormal 42929-7) [facility] GLUCOSE (AUTOMATED)2022-07-22 16:52:50 Test Item Value Reference Range Interpretation Comments POCT GLU (test code = 5158244770) 197 mg/dL 70-110 H Lab Interpretation (test code = Abnormal 51947-4) [facility] GLUCOSE (AUTOMATED)2022-07-22 16:52:50 Test Item Value Reference Range Interpretation Comments POCT GLU (test code = 9160781437) 197 mg/dL 70-110 H Lab Interpretation (test code = Abnormal 08771-2) [facility] GLUCOSE (AUTOMATED)2022-07-22 13:22:34 Test Item Value Reference Range Interpretation Comments POCT GLU (test code = 5194423475) 150 mg/dL 70-110 H Lab Interpretation (test code = Abnormal 83286-9) [facility] GLUCOSE (AUTOMATED)2022-07-22 13:22:34 Test Item Value Reference Range Interpretation Comments POCT GLU (test code = 9832378276) 150 mg/dL 70-110 H Lab Interpretation (test code = Abnormal 13167-4) [id number] 09:38:27 Test Item Value Reference Range Interpretation Comments NT-proBNP (test code 2160 pg/mL See_Comment H [Autom ated = 1680367129) message] The system which generated this result transmitted reference range : <=125. The reference range was not used to interpret this result as normal/abnormal . ROSLYN (test code = ROSLYN) Biotin has been reported to cause a negative bias, interpret results relative to patient's use of biotin. Lab Interpretation Abnormal (test code = 15806-2) [id number] 09:38:27 Test Item Value Reference Range Interpretation Comments NT-proBNP (test code 2160 pg/mL See_Comment H [Autom ated = 6650830811) message] The system which generated this result transmitted reference range : <=125. The reference range was not used to interpret this result as normal/abnormal . ROSLYN (test code = ROSLYN) Biotin has been reported to cause a negative bias, interpret results relative to patient's use of biotin. Lab Interpretation Abnormal (test code = 81391-0) [facility] Test Item Value Reference Range Interpretation Comments MAGNESIUM (test code = 7457345904) 1.8 mg/dL 1.7-2.4 Lab Interpretation (test code = Normal 05266-1) [facility]29 Test Item Value Reference Range Interpretation Comments MAGNESIUM (test code = 1994880021) 1.8 mg/dL 1.7-2.4 Lab Interpretation (test code = Normal 17972-5) [facility] METABOLIC PANEL (NA, K, CL, CO2, GLUCOSE, BUN, CREATININE, CA)2022-07-22 09:31:09 Test Item Value Reference Range Interpretation Comments NA (test code = 137 mmol/L 135-145 5965857297) K (test code = 4.0 mmol/L 3.5-5 5509890254) CL (test code = 98 mmol/L 98-108 0184331770) CO2 TOTAL (test code = 34 mmol/L 23-31 H 6728319610) AGAP (test code = 2-16 4281429503) BUN (test code = 16 mg/dL 7-23 5388180396) GLUCOSE (test code = 177 mg/dL 70-110 H 9637508712) CREATININE (test code = 0.66 mg/dL 0.6-1.25 6043227872) CALCIUM (test code = 8.2 mg/dL 8.6-10.6 L 1322687219) eGFR (test code = mL/min/1.73m2 1751649844) ROSLYN (test code = ROSLYN) Association of [...] tests). Lab Interpretation Abnormal (test code = 36846-0) [facility] METABOLIC PANEL (NA, K, CL, CO2, GLUCOSE, BUN, CREATININE, CA)2022-07-22 09:31:09 Test Item Value Reference Range Interpretation Comments NA (test code = 137 mmol/L 135-145 2752696987) K (test code = 4.0 mmol/L 3.5-5 0312322698) CL (test code = 98 mmol/L 98-108 4291124963) CO2 TOTAL (test code = 34 mmol/L 23-31 H 4123659379) AGAP (test code = 2-16 6946132719) BUN (test code = 16 mg/dL 7-23 4147205079) GLUCOSE (test code = 177 mg/dL 70-110 H 5519387902) CREATININE (test code = 0.66 mg/dL 0.6-1.25 3485924540) CALCIUM (test code = 8.2 mg/dL 8.6-10.6 L 6544064047) eGFR (test code = mL/min/1.73m2 5397090661) ROSLYN (test code = ROSLYN) Association of [...] tests). Lab Interpretation Abnormal (test code = 10407-7) [facility]43[facility] (ALB,T.PRO,BILI T,BU/BC,ALT,AST,ALK PHOS)2022-07-22 09:30:44 Test Item Value Reference Range Interpretation Comments TOTAL BILI (test code = 3340200040) 1.2 mg/dL 0.1-1.1 H BILI UNCON (test code = 0846034766) 0.9 mg/dL 0.1-1.1 BILI CONJ (test code = 3181499180) 0.0 mg/dL 0-0.3 T PROTEIN (test code = 4717193667) 6.5 g/dL 6.3-8.2 ALBUMIN (test code = 5796567809) 3.7 g/dL 3.5-5 ALK PHOS (test code = 4073431944) 67 U/L 34-122 ALTv (test code = 1742-6) 33 U/L 5-50 AST(SGOT) (test code = 3446659805) 30 U/L 13-40 Lab Interpretation (test code = Abnormal 16842-6) [facility] 09:30:44 Test Item Value Reference Range Interpretation Comments PHOSPHORUS (test code = 5570210181) 3.6 mg/dL 2.5-5 Lab Interpretation (test code = Normal 78735-1) [facility]17012[facility] (ALB,T.PRO,BILI T,BU/BC,ALT,AST,ALK PHOS)2022-07-22 09:30:44 Test Item Value Reference Range Interpretation Comments TOTAL BILI (test code = 2329207545) 1.2 mg/dL 0.1-1.1 H BILI UNCON (test code = 9563688090) 0.9 mg/dL 0.1-1.1 BILI CONJ (test code = 5055517545) 0.0 mg/dL 0-0.3 T PROTEIN (test code = 9328103495) 6.5 g/dL 6.3-8.2 ALBUMIN (test code = 0210214714) 3.7 g/dL 3.5-5 ALK PHOS (test code = 4359679803) 67 U/L 34-122 ALTv (test code = 1742-6) 33 U/L 5-50 AST(SGOT) (test code = 0959840565) 30 U/L 13-40 Lab Interpretation (test code = Abnormal 68846-6) [facility] 09:30:44 Test Item Value Reference Range Interpretation Comments PHOSPHORUS (test code = 2995163413) 3.6 mg/dL 2.5-5 Lab Interpretation (test code = Normal 11626-6) [facility] WITH [id number] 09:23:08 Test Item Value Reference Range Interpretation Comments WBC (test code = See_Comment H [Automated 9445-2) message] The system which generated this result transmit artem reference range : 4.20 - 10.70 10*3/?L. The reference range was not used to interpret this result as normal/abnormal . RBC (test code = See_Comment [Automated 599-8) message] The system which generated this result [...] RDW-SD (test code = 46.6 fL 38.5-51.6 86649-6) RDW-CV (test code = 13.5 % 12.1-15.4 788-0) PLT (test code = See_Comment L [Automated 777-3) message] The system which generated this result transmit artem reference range : 150 - 328 10*3/ ?L. The reference range was not u sed to interpret th is result as normal/abnormal . MPV (test code = 12.7 fL 9.8-13 48729-6) NRBC/100 WBC (test See_Comment [Automat ed code = 6366292331) message] The system which generated this result transmit artem reference range : 0.0 - 10.0 /100 WBCs. The reference range was not used to interpret this result as normal/abnormal . NRBC x10^3 (test code See_Comment [Auto mated = 3338444307) message] The system which generated this result transmit artem reference range : 10*3/?L. The reference range was not used to interpret this result as normal/abnormal . GRAN MAT (NEUT) % 71.3 % (test code = 770-8) IMM GRAN % (test code 0.40 % = 4082645670) LYMPH % (test code = 17.4 % 736-9) MONO % (test code = 9.8 % 5905-5) EOS % (test code = 0.8 % 713-8) BASO % (test code = 0.3 % 706-2) GRAN MAT x10^3(ANC) 10.18 10*3/uL 1.99-6.95 H (test code = 0950649833) IMM GRAN x10^3 (test 0.06 10*3/uL 0-0.06 code = 3153365740) LYMPH x10^3 (test code 2.49 10*3/uL 1.09-3.23 = 731-0) MONO x10^3 (test code 1.40 10*3/uL 0.36-1.02 H = 742-7) EOS x10^3 (test code = 0.11 10*3/uL 0.06-0.53 711-2) BASO x10^3 (test code 0.04 10*3/uL 0.01-0.09 = 704-7) Lab Interpretation Abnormal (test code = 96661-6) [facility] WITH [id number] 09:23:08 Test Item Value Reference Range Interpretation [...] RDW-SD (test code = 46.6 fL 38.5-51.6 66942-8) RDW-CV (test code = 13.5 % 12.1-15.4 788-0) PLT (test code = See_Comment L [Automated 777-3) message] The system which generated this result transmit artem reference range : 150 - 328 10*3/ ?L. The reference range was not u sed to interpret th is result as normal/abnormal . MPV (test code = 12.7 fL 9.8-13 78900-0) NRBC/100 WBC (test See_Comment [Automat ed code = 6789129840) message] The system which generated this result transmit artem reference range : 0.0 - 10.0 /100 WBCs. The reference range was not used to interpret this result as normal/abnormal . NRBC x10^3 (test code See_Comment [Auto mated = 6837814132) message] The system which generated this result transmit artem reference range : 10*3/?L. The reference range was not used to interpret this result as normal/abnormal . GRAN MAT (NEUT) % 71.3 % (test code = 770-8) IMM GRAN % (test code 0.40 % = 8348345736) LYMPH % (test code = 17.4 % 736-9) MONO % (test code = 9.8 % 5905-5) EOS % (test code = 0.8 % 713-8) BASO % (test code = 0.3 % 706-2) GRAN MAT x10^3(ANC) 10.18 10*3/uL 1.99-6.95 H (test code = 5711091448) IMM GRAN x10^3 (test 0.06 10*3/uL 0-0.06 code = 2037274951) LYMPH x10^3 (test code 2.49 10*3/uL 1.09-3.23 = 731-0) MONO x10^3 (test code 1.40 10*3/uL 0.36-1.02 H = 742-7) EOS x10^3 (test code = 0.11 10*3/uL 0.06-0.53 711-2) BASO x10^3 (test code 0.04 10*3/uL 0.01-0.09 = 704-7) Lab Interpretation Abnormal (test code = 83486-6) [facility] GLUCOSE (AUTOMATED)2022-07-22 01:47:13 Test Item Value Reference Range Interpretation Comments POCT GLU (test code = 5158791442) 220 mg/dL 70-110 H Lab Interpretation (test code = Abnormal 38456-7) [facility] GLUCOSE (AUTOMATED)2022-07-22 01:47:13 Test Item Value Reference Range Interpretation Comments POCT GLU (test code = 1607241183) 220 mg/dL 70-110 H Lab Interpretation (test code = Abnormal 94277-6) [facility]150[facility]TOTAL CHOLESTEROL, TRIGLYCERIDES, HDL)2022-07-22 00:19:28 Test Item Value Reference Range Interpretation Comments CHOL (test code = 121 mg/dL 120-200 3816647495) HDL (test code = 28 mg/dL See_Comment L [Automated message] 8017044351) The system [employer] generated this result transmit artem reference range : >=40. The refer ence range was not u sed to interpret th is result as normal/abnormal . HDLC RATIO (test code = See_Comment [Au tomated message] 1803152892) The system [employer] generated this result transmit artem reference range : <=5.0. The refe rence range was not u sed to interpret th is result as normal/abnormal . TRIG (test code = 119 mg/dL 30-170 5557353419) LDL CHOL (test code = 69 mg/dL See_Comment [Auto mated message] 06477-1) The system [employer] generated this result transmit artem reference range : <=160. The refe rence range was not u sed to interpret th is result as normal/abnormal . VLDL (test code = 24 mg/dL 5-60 6393493549) Lab Interpretation (test Abnormal code = 30622-7) [facility]TOTAL CHOLESTEROL, TRIGLYCERIDES, HDL)2022-07-22 00:19:28 Test Item Value Reference Range Interpretation Comments CHOL (test code = 121 mg/dL 120-200 3379771268) HDL (test code = 28 mg/dL See_Comment L [Automated message] 0125409685) The system [employer] generated this result transmit artem reference range : >=40. The refer ence range was not u sed to interpret th is result as normal/abnormal . HDLC RATIO (test code = See_Comment [Au tomated message] 3613986647) The system [employer] generated this result transmit artme reference range : <=5.0. The refe rence range was not u sed to interpret th is result as normal/abnormal . TRIG (test code = 119 mg/dL 30-170 9192902755) LDL CHOL (test code = 69 mg/dL See_Comment [Auto mated message] 52025-3) The system [employer] generated this result transmit artem reference range : <=160. The refe rence range was not u sed to interpret th is result as normal/abnormal . VLDL (test code = 24 mg/dL 5-60 5284213929) Lab Interpretation (test Abnormal code = 24158-5) [facility] 00:00:55 Test Item Value Reference Range Interpretation Comments Height (test code = in 5534900972) Weight (test code = lbs 1201286589) Systolic BP (test code = mmHg 9467226562) Diastolic BP (test code mmHg = 1861937253) Heart Rate (test code = bpm 1604571960) BSA (test code = 2.04 m2 8718140884) Ao root annulus (test 3.5 cm code = 4301135628) Ao root diam (test code 3.50 cm = 0171642710) Aortic root (test code = 3.5 cm 1176117843) LVOT diameter (test code 2.19 cm = 4769847403) LVOT area (test code = 3.80 cm2 2007822885) LVIDD (test code = 5.30 cm 3352699611) Left Ventricular End 135.3 mL Diastolic Volume by Teichholz Method (test code = 9438284) IVS (test code = 1.26 cm 5856975010) Interventricular Septum 1.26 cm Diastolic Thickness by 2D (test code = 3813367) LVPWD (test code = 1.26 cm 3997025179) PW (test code = 1.26 cm 0.6-1.8 5578043665) EF(Teich) (test code = 16.40 % 2143828790) LVIDS (test code = 4.90 cm 9962373985) Left Ventricular End 113.1 mL Systolic Volume by Teichholz Method (test code = 6544229) FS (test code = 7 % 4441152637) EF - 2D (test code = 16.40 % 64920983) LA size (test code = 4.3 cm 1062739226) TR Peak Anthony (test code = 249.6 cm/s 5648803567) Triscuspid Valve mmHg Regurgitation Peak Gradient (test code = 9226478312) LAV(MOD-sp4) (test code 79.00 mL = 3209889396) E wave decelartion time 0.13 s (test code = 7601431962) MV Peak E Anthony (test code 82.3 cm/s = 7202111994) MV stenosis pressure 1/2 38.8 ms time (test code = 3048220384) MV Peak A Anthony (test code 40.8 cm/s = 8600647667) E/A ratio (test code = ratio 7720507133) MR max PG (test code = 61.50 mm[Hg] 1749062044) MR max anthony (test code = 392.20 cm/s 2643186599) Mr max anthony (test code = 392.2 m/s 0104980890) MV Prop V (test code = 33.40 cm/s 8830547616) MV E/e' septal (test 12.6 cm/s code = 0461290705) Tapse (test code = 1.17 cm 1209598156) LVOT stroke volume (test 52.20 cm3 code = 6676141331) LVOT peak anthony (test code 86.4 cm/s = 9649281154) LVOT mn grad (test code mmHg = 1206245858) AV LVOT peak gradient mmHg (test code = 3237105798) LVOT peak VTI (test code 13.9 cm = 6114427813) LV V1 mean (test code = 57.20 cm/s 3776868714) Aortic valve mean 94.3 cm/s velocity (test code = 1350137973) Ao peak anthony (test code = 125.8 cm/s 2287728872) Ao VTI (test code = 22.6 cm 3334300689) AV area by cont VTI 2.3 cm2 (test code = 8311059186) AV area peak anthony (test 2.6 cm2 code = 6787809874) Ao max PG (test code = 6.30 mm[Hg] 2190449038) AV peak gradient (test mmHg code = 1945399113) AV valve area (test code 2.31 cm2 = 8683220573) AV mean gradient (test mmHg code = 4648519542) Radiology Study observation (narrative) (test code = 35569-3) ROSLYN (test code = ROSLYN) ?Left?Ventricle: Left [...] mL of Lumason ultrasound enhancing agent [facility]:55 Test Item Value Reference Range Interpretation Comments Height (test code = in 6177980658) Weight (test code = lbs 4953444369) Systolic BP (test code = mmHg 4849692576) Diastolic BP (test code mmHg = 6123518429) Heart Rate (test code = bpm 9870628618) BSA (test code = 2.04 m2 9727796784) Ao root annulus (test 3.5 cm code = 0748448054) Ao root diam (test code 3.50 cm = 4207993297) Aortic root (test code = 3.5 cm 7992388283) LVOT diameter (test code 2.19 cm = 3218949411) LVOT area (test code = 3.80 cm2 5333035512) LVIDD (test code = 5.30 cm 2565185885) Left Ventricular End 135.3 mL Diastolic Volume by Teichholz Method (test code = 4981747) IVS (test code = 1.26 cm 9648420236) Interventricular Septum 1.26 cm Diastolic Thickness by 2D (test code = 4993201) LVPWD (test code = 1.26 cm 4321951837) PW (test code = 1.26 cm 0.6-1.9 3448063250) EF(Teich) (test code = 16.40 % 5101162052) LVIDS (test code = 4.90 cm 4230198181) Left Ventricular End 113.1 mL Systolic Volume by Teichholz Method (test code = 0913846) FS (test code = 7 % 2823675154) EF - 2D (test code = 16.40 % 95138564) LA size (test code = 4.3 cm 4182854112) TR Peak Anthony (test code = 249.6 cm/s 5116357142) Triscuspid Valve mmHg Regurgitation Peak Gradient (test code = 8175315069) LAV(MOD-sp4) (test code 79.00 mL = 2520753495) E wave decelartion time 0.13 s (test code = 5068891964) MV Peak E Anthony (test code 82.3 cm/s = 4691664411) MV stenosis pressure 1/2 38.8 ms time (test code = 3334117409) MV Peak A Anthony (test code 40.8 cm/s = 4974315611) E/A ratio (test code = ratio 0366893697) MR max PG (test code = 61.50 mm[Hg] 0223443076) MR max anthony (test code = 392.20 cm/s 2793651989) Mr max anthony (test code = 392.2 m/s 6167697337) MV Prop V (test code = 33.40 cm/s 4781925366) MV E/e' septal (test 12.6 cm/s code = 8426800960) Tapse (test code = 1.17 cm 8972678296) LVOT stroke volume (test 52.20 cm3 code = 6805095432) LVOT peak anthony (test code 86.4 cm/s = 7129835288) LVOT mn grad (test code mmHg = 1850148861) AV LVOT peak gradient mmHg (test code = 3867738974) LVOT peak VTI (test code 13.9 cm = 2746625774) LV V1 mean (test code = 57.20 cm/s 5673212129) Aortic valve mean 94.3 cm/s velocity (test code = 5871751074) Ao peak anthony (test code = 125.8 cm/s 5222611259) Ao VTI (test code = 22.6 cm 8699655986) AV area by cont VTI 2.3 cm2 (test code = 5865734844) AV area peak anthony (test 2.6 cm2 code = 5875655790) Ao max PG (test code = 6.30 mm[Hg] 3441176794) AV peak gradient (test mmHg code = 0320303427) AV valve area (test code 2.31 cm2 = 4402389615) AV mean gradient (test mmHg code = 8835349539) Radiology Study observation (narrative) (test code = 40146-6) ROSLYN (test code = ROSLYN) ?Left?Ventricle: Left [...] mL of Lumason ultrasound enhancing agent used. [facility] GLUCOSE (AUTOMATED)2022-07-21 21:54:48 Test Item Value Reference Range Interpretation Comments POCT GLU (test code = 9723190700) 161 mg/dL 70-110 H Lab Interpretation (test code = Abnormal 41118-4) [facility] GLUCOSE (AUTOMATED)2022-07-21 21:54:48 Test Item Value Reference Range Interpretation Comments POCT GLU (test code = 6732992728) 161 mg/dL 70-110 H Lab Interpretation (test code = Abnormal 29019-7) [facility] GLUCOSE (AUTOMATED)2022-07-21 16:47:05 Test Item Value Reference Range Interpretation Comments POCT GLU (test code = 4233973604) 132 mg/dL 70-110 H Lab Interpretation (test code = Abnormal 25437-8) [facility] GLUCOSE (AUTOMATED)2022-07-21 16:47:05 Test Item Value Reference Range Interpretation Comments POCT GLU (test code = 4248694556) 132 mg/dL 70-110 H Lab Interpretation (test code = Abnormal 93209-2) [facility] GLUCOSE (AUTOMATED)2022-07-21 15:03:01 Test Item Value Reference Range Interpretation Comments POCT GLU (test code = 3710541652) 182 mg/dL 70-110 H Lab Interpretation (test code = Abnormal 91400-4) [facility] GLUCOSE (AUTOMATED)2022-07-21 15:03:01 Test Item Value Reference Range Interpretation Comments POCT GLU (test code = 2723485381) 182 mg/dL 70-110 H Lab Interpretation (test code = Abnormal 18253-4) [facility] with [id number] 14:58:14 Test Item Value Reference Range Interpretation Comments WBC (test code = See_Comment H [Automated 3690-2) message] The system which generated this result [...] RDW-SD (test code = 46.4 fL 38.5-51.6 42741-8) RDW-CV (test code = 13.5 % 12.1-15.4 788-0) PLT (test code = See_Comment [Automated 777-3) message] The system which generated this result transmit artem reference range : 150 - 328 10*3/ ?L. The reference range was not u sed to interpret th is result as normal/abnormal . MPV (test code = 13.0 fL 9.8-13 72432-8) NRBC/100 WBC (test See_Comment [Automat ed code = 7819279774) message] The system which generated this result transmit artem reference range : 0.0 - 10.0 /100 WBCs. The reference range was not used to interpret this result as normal/abnormal . NRBC x10^3 (test code See_Comment [Auto mated = 0741092698) message] The system which generated this result transmit artem reference range : 10*3/?L. The reference range was not used to interpret this result as normal/abnormal . GRAN MAT (NEUT) % 71.1 % (test code = 770-8) IMM GRAN % (test code 0.40 % = 1168120810) LYMPH % (test code = 17.6 % 736-9) MONO % (test code = 10.3 % 5905-5) EOS % (test code = 0.3 % 713-8) BASO % (test code = 0.3 % 706-2) GRAN MAT x10^3(ANC) 10.55 10*3/uL 1.99-6.95 H (test code = 3819681067) IMM GRAN x10^3 (test 0.06 10*3/uL 0-0.06 code = 1186000378) LYMPH x10^3 (test code 2.61 10*3/uL 1.09-3.23 = 731-0) MONO x10^3 (test code 1.53 10*3/uL 0.36-1.02 H = 742-7) EOS x10^3 (test code = 0.04 10*3/uL 0.06-0.53 L 711-2) BASO x10^3 (test code 0.04 10*3/uL 0.01-0.09 = 704-7) BANDS (test code = Increased A 2257899075) REACT LYMPHS (test Rare code = 1624397908) GIANT PLATELETS (test Present See_Comment A [Auto mated code = 5908-9) message] The system which generated this result transmit artem reference range : (none). The reference range was not used to interpret this result as normal/abnormal . Lab Interpretation Abnormal (test code = 70771-5) [facility] with [id number] 14:58:14 Test Item Value Reference Range Interpretation Comments WBC (test code = See_Comment H [Automated 7177-2) message] The system which generated this result transmit artem reference range : 4.20 - 10.70 10*3/?L. The reference range was not used to interpret this result as normal/abnormal . RBC (test code = See_Comment [Automated 229-8) message] The system which generated this result [...] RDW-SD (test code = 46.4 fL 38.5-51.6 55903-5) RDW-CV (test code = 13.5 % 12.1-15.4 788-0) PLT (test code = See_Comment [Automated 777-3) message] The system which generated this result transmit artem reference range : 150 - 328 10*3/ ?L. The reference range was not u sed to interpret th is result as normal/abnormal . MPV (test code = 13.0 fL 9.8-13 28236-2) NRBC/100 WBC (test See_Comment [Automat ed code = 5484018840) message] The system which generated this result transmit artem reference range : 0.0 - 10.0 /100 WBCs. The reference range was not used to interpret this result as normal/abnormal . NRBC x10^3 (test code See_Comment [Auto mated = 0057389498) message] The system which generated this result transmit artem reference range : 10*3/?L. The reference range was not used to interpret this result as normal/abnormal . GRAN MAT (NEUT) % 71.1 % (test code = 770-8) IMM GRAN % (test code 0.40 % = 3896418328) LYMPH % (test code = 17.6 % 736-9) MONO % (test code = 10.3 % 5905-5) EOS % (test code = 0.3 % 713-8) BASO % (test code = 0.3 % 706-2) GRAN MAT x10^3(ANC) 10.55 10*3/uL 1.99-6.95 H (test code = 5623906315) IMM GRAN x10^3 (test 0.06 10*3/uL 0-0.06 code = 5392009792) LYMPH x10^3 (test code 2.61 10*3/uL 1.09-3.23 = 731-0) MONO x10^3 (test code 1.53 10*3/uL 0.36-1.02 H = 742-7) EOS x10^3 (test code = 0.04 10*3/uL 0.06-0.53 L 711-2) BASO x10^3 (test code 0.04 10*3/uL 0.01-0.09 = 704-7) BANDS (test code = Increased A 9707695732) REACT LYMPHS (test Rare code = 0780967687) GIANT PLATELETS (test Present See_Comment A [Auto mated code = 5908-9) message] The system which generated this result transmit artem reference range : (none). The reference range was not used to interpret this result as normal/abnormal . Lab Interpretation Abnormal (test code = 60131-2) [facility] GLUCOSE (AUTOMATED)2022-07-21 13:20:46 Test Item Value Reference Range Interpretation Comments POCT GLU (test code = 3219119522) 148 mg/dL 70-110 H Lab Interpretation (test code = Abnormal 23775-6) [facility] GLUCOSE (AUTOMATED)2022-07-21 13:20:46 Test Item Value Reference Range Interpretation Comments POCT GLU (test code = 1884107762) 148 mg/dL 70-110 H Lab Interpretation (test code = Abnormal 94509-7) [facility] Metabolic Panel (NA, K, CL, CO2, GLUCOSE, BUN, CREATININE, CA)2022-07-21 13:17:35 Test Item Value Reference Range Interpretation Comments NA (test code = 134 mmol/L 135-145 L 8481833086) K (test code = 4.1 mmol/L 3.5-5 2906048455) CL (test code = 99 mmol/L 98-108 5400356458) CO2 TOTAL (test code = 32 mmol/L 23-31 H 8648836978) AGAP (test code = 2-16 5429907539) BUN (test code = 17 mg/dL 7-23 5429606413) GLUCOSE (test code = 186 mg/dL 70-110 H 6582656838) CREATININE (test code = 0.65 mg/dL 0.6-1.25 1799114298) CALCIUM (test code = 8.2 mg/dL 8.6-10.6 L 6474019950) eGFR (test code = mL/min/1.73m2 8978806485) ROSLYN (test code = ROSLYN) Association of [...] tests). Lab Interpretation Abnormal (test code = 17775-6) [facility] Metabolic Panel (NA, K, CL, CO2, GLUCOSE, BUN, CREATININE, CA)2022-07-21 13:17:35 Test Item Value Reference Range Interpretation Comments NA (test code = 134 mmol/L 135-145 L 2369238149) K (test code = 4.1 mmol/L 3.5-5 4835164861) CL (test code = 99 mmol/L 98-108 5114897704) CO2 TOTAL (test code = 32 mmol/L 23-31 H 4370497131) AGAP (test code = 2-16 6544354083) BUN (test code = 17 mg/dL 7-23 2692182695) GLUCOSE (test code = 186 mg/dL 70-110 H 3455659458) CREATININE (test code = 0.65 mg/dL 0.6-1.25 3672046550) CALCIUM (test code = 8.2 mg/dL 8.6-10.6 L 1857534163) eGFR (test code = mL/min/1.73m2 6007494831) ROSLYN (test code = ROSLYN) Association of [...] tests). Lab Interpretation Abnormal (test code = 75582-7) [facility] [id number] 12:35:48 Test Item Value Reference Interpretation Comments Range TROPONIN I (test 0.032 ng/mL See_Comment [Automated code = 7708428625) message] The system which generated this result [...] biotin. Lab Interpretation Normal (test code = 77620-6) [facility] [id number] 12:35:48 Test Item Value Reference Interpretation Comments Range TROPONIN I (test 0.032 ng/mL See_Comment [Automated code = 0301629258) message] The system which generated this result [...] biotin. Lab Interpretation Normal (test code = 54789-7) [facility] [id number] 12:32:47 Test Item Value Reference Range Interpretation Comments NT-proBNP (test code 3830 pg/mL See_Comment H [Autom ated = 2511721164) message] The system which generated this result transmitted reference range : <=125. The reference range was not used to interpret this result as normal/abnormal . ROSLYN (test code = ROSLYN) Biotin has been reported to cause a negative bias, interpret results relative to patient's use of biotin. Lab Interpretation Abnormal (test code = 78357-4) [facility] [id number] 12:32:47 Test Item Value Reference Range Interpretation Comments NT-proBNP (test code 3830 pg/mL See_Comment H [Autom ated = 8197536754) message] The system which generated this result transmitted reference range : <=125. The reference range was not used to interpret this result as normal/abnormal . ROSLYN (test code = ROSLYN) Biotin has been reported to cause a negative bias, interpret results relative to patient's use of biotin. Lab Interpretation Abnormal (test code = 82937-8) [facility] [id number] 12:24:10 Test Item Value Reference Range Interpretation Comments MAGNESIUM (test code = 7809471400) 1.8 mg/dL 1.7-2.4 Lab Interpretation (test code = Normal 13516-6) [facility] [id number] 12:24:10 Test Item Value Reference Range Interpretation Comments MAGNESIUM (test code = 1290549518) 1.8 mg/dL 1.7-2.4 Lab Interpretation (test code = Normal 77410-4) [facility] GLUCOSE (AUTOMATED)2022-07-21 04:19:16 Test Item Value Reference Range Interpretation Comments POCT GLU (test code = 0019619720) 169 mg/dL 70-110 H Lab Interpretation (test code = Abnormal 88854-8) [facility] GLUCOSE (AUTOMATED)2022-07-21 04:19:16 Test Item Value Reference Range Interpretation Comments POCT GLU (test code = 5584588544) 169 mg/dL 70-110 H Lab Interpretation (test code = Abnormal 69005-4) [facility] GLUCOSE (AUTOMATED)2022-07-21 02:03:28 Test Item Value Reference Range Interpretation Comments POCT GLU (test code = 3469821278) 242 mg/dL 70-110 H Lab Interpretation (test code = Abnormal 12108-3) [facility] GLUCOSE (AUTOMATED)2022-07-21 02:03:28 Test Item Value Reference Range Interpretation Comments POCT GLU (test code = 0553931408) 242 mg/dL 70-110 H Lab Interpretation (test code = Abnormal 30138-2) [facility]22-[facility]21 00:46:20 Test Item Value Reference Range Interpretation Comments HGB A1C (test code = 11.1 % 4-5.7 H 4548-4) ROSLYN (test code = ROSLYN) Reference RangesNormal: <5.7%Prediabetes: 5.7 - 6.4%Diabetes: > 6.5% Lab Interpretation (test Abnormal code = 70069-4) [facility]22-[facility]-21 00:46:20 Test Item Value Reference Range Interpretation Comments HGB A1C (test code = 11.1 % 4-5.7 H 4548-4) ROSLYN (test code = ROSLYN) Reference RangesNormal: <5.7%Prediabetes: 5.7 - 6.4%Diabetes: > 6.5% Lab Interpretation (test Abnormal code = 05639-6) [facility] GLUCOSE (AUTOMATED)2022-07-20 22:27:55 Test Item Value Reference Range Interpretation Comments POCT GLU (test code = 4938834219) 234 mg/dL 70-110 H Lab Interpretation (test code = Abnormal 64895-5) [facility] GLUCOSE (AUTOMATED)2022-07-20 22:27:55 Test Item Value Reference Range Interpretation Comments POCT GLU (test code = 4314169142) 234 mg/dL 70-110 H Lab Interpretation (test code = Abnormal 82200-8) [facility] [id number] 17:21:08 Test Item Value Reference Range Interpretation Comments NT-proBNP (test code 3250 pg/mL See_Comment H [Autom ated = 8207950913) message] The system which generated this result transmitted reference range : <=125. The reference range was not used to interpret this result as normal/abnormal . ROSLYN (test code = ROSLYN) Biotin has been reported to cause a negative bias, interpret results relative to patient's use of biotin. Lab Interpretation Abnormal (test code = 22832-3) [facility] [id number] 17:21:08 Test Item Value Reference Range Interpretation Comments NT-proBNP (test code 3250 pg/mL See_Comment H [Autom ated = 7225612364) message] The system which generated this result transmitted reference range : <=125. The reference range was not used to interpret this result as normal/abnormal . ROSLYN (test code = ROSLYN) Biotin has been reported to cause a negative bias, interpret results relative to patient's use of biotin. Lab Interpretation Abnormal (test code = 06359-7) [facility] WITH [id number] 17:16:49 Test Item Value Reference Range Interpretation [...] RDW-SD (test code = 44.7 fL 38.5-51.6 33799-9) RDW-CV (test code = 13.7 % 12.1-15.4 788-0) PLT (test code = See_Comment [Automated 777-3) message] The system which generated this result transmit artem reference range : 150 - 328 10*3/ ?L. The reference range was not u sed to interpret th is result as normal/abnormal . MPV (test code = 12.5 fL 9.8-13 00797-8) NRBC/100 WBC (test See_Comment [Automat ed code = 2397365220) message] The system which generated this result transmit artem reference range : 0.0 - 10.0 /100 WBCs. The reference range was not used to interpret this result as normal/abnormal . NRBC x10^3 (test code See_Comment [Auto mated = 2335342960) message] The system which generated this result transmit artem reference range : 10*3/?L. The reference range was not used to interpret this result as normal/abnormal . GRAN MAT (NEUT) % 76.6 % (test code = 770-8) IMM GRAN % (test code 0.70 % = 8145538291) LYMPH % (test code = 13.8 % 736-9) MONO % (test code = 8.5 % 5905-5) EOS % (test code = 0.1 % 713-8) BASO % (test code = 0.3 % 706-2) GRAN MAT x10^3(ANC) 17.13 10*3/uL 1.99-6.95 H (test code = 2243783434) IMM GRAN x10^3 (test 0.16 10*3/uL 0-0.06 H code = 4220870665) LYMPH x10^3 (test code 3.10 10*3/uL 1.09-3.23 = 731-0) MONO x10^3 (test code 1.91 10*3/uL 0.36-1.02 H = 742-7) EOS x10^3 (test code = 0.06-0.53 L 711-2) BASO x10^3 (test code 0.07 10*3/uL 0.01-0.09 = 704-7) BANDS (test code = Increased A 7898270221) REACT LYMPHS (test Rare code = 3498891014) Lab Interpretation Abnormal (test code = 48005-8) [facility] WITH [id number] 17:16:49 Test Item Value Reference Range Interpretation [...] RDW-SD (test code = 44.7 fL 38.5-51.6 33480-5) RDW-CV (test code = 13.7 % 12.1-15.4 788-0) PLT (test code = See_Comment [Automated 777-3) message] The system which generated this result transmit artem reference range : 150 - 328 10*3/ ?L. The reference range was not u sed to interpret th is result as normal/abnormal . MPV (test code = 12.5 fL 9.8-13 86951-6) NRBC/100 WBC (test See_Comment [Automat ed code = 5896158504) message] The system which generated this result transmit artem reference range : 0.0 - 10.0 /100 WBCs. The reference range was not used to interpret this result as normal/abnormal . NRBC x10^3 (test code See_Comment [Auto mated = 8735526158) message] The system which generated this result transmit artem reference range : 10*3/?L. The reference range was not used to interpret this result as normal/abnormal . GRAN MAT (NEUT) % 76.6 % (test code = 770-8) IMM GRAN % (test code 0.70 % = 2000379622) LYMPH % (test code = 13.8 % 736-9) MONO % (test code = 8.5 % 5905-5) EOS % (test code = 0.1 % 713-8) BASO % (test code = 0.3 % 706-2) GRAN MAT x10^3(ANC) 17.13 10*3/uL 1.99-6.95 H (test code = 9225026755) IMM GRAN x10^3 (test 0.16 10*3/uL 0-0.06 H code = 3361447328) LYMPH x10^3 (test code 3.10 10*3/uL 1.09-3.23 = 731-0) MONO x10^3 (test code 1.91 10*3/uL 0.36-1.02 H = 742-7) EOS x10^3 (test code = 0.06-0.53 L 711-2) BASO x10^3 (test code 0.07 10*3/uL 0.01-0.09 = 704-7) BANDS (test code = Increased A 9342297650) REACT LYMPHS (test Rare code = 6613720372) Lab Interpretation Abnormal (test code = 56907-2) [facility] [id number] 16:42:04 Test Item Value Reference Interpretation Comments Range TROPONIN I (test 0.025 ng/mL See_Comment [Automated code = 1742701710) message] The system which generated this result [...] biotin. Lab Interpretation Normal (test code = 45160-4) [facility] [id number] 16:42:04 Test Item Value Reference Interpretation Comments Range TROPONIN I (test 0.025 ng/mL See_Comment [Automated code = 1163229126) message] The system which generated this result [...] biotin. Lab Interpretation Normal (test code = 85939-7) [facility] 16:[facility]19 Test Item Value Reference Range Interpretation Comments APTT Patient (test See_Comment [Automat ed code = 3173-2) message] The system which generated this result transmitted reference range : 23 - 38 Seconds . The reference range was not used to interpr et this result as normal/abnormal . ROSLYN (test code = ROSLYN) The [facility] patient population mean normal value for aPTT is 30 seconds. Lab Interpretation Normal (test code = 47092-0) [facility] 16:31:19 Test Item Value Reference Range Interpretation Comments APTT Patient (test See_Comment [Automat ed code = 3173-2) message] The system which generated this result transmitted reference range : 23 - 38 Seconds . The reference range was not used to interpr et this result as normal/abnormal . ROSLYN (test code = ROSLYN) The [facility] patient population mean normal value for aPTT is 30 seconds. Lab Interpretation Normal (test code = 74073-4) [facility] (88342)2022-07-20 16:30:19 Test Item Value Reference Range Interpretation Comments NA (test code = 133 mmol/L 135-145 L 9693931075) K (test code = 5.3 mmol/L 3.5-5 H 2875892884) CL (test code = 98 mmol/L 98-108 3382832151) CO2 TOTAL (test code = 27 mmol/L 23-31 4681421833) AGAP (test code = 2-16 5617284981) BUN (test code = 13 mg/dL 7-23 4904843789) GLUCOSE (test code = 273 mg/dL 70-110 H 1964262493) CREATININE (test code = 0.62 mg/dL 0.6-1.25 6524919631) TOTAL BILI (test code = 2.1 mg/dL 0.1-1.1 H 3069331193) CALCIUM (test code = 8.6 mg/dL 8.6-10.6 2345780313) T PROTEIN (test code = 7.3 g/dL 6.3-8.2 7087489076) ALBUMIN (test code = 4.4 g/dL 3.5-5 8322327554) ALK PHOS (test code = 61 U/L 34-122 3488079788) ALTv (test code = 29 U/L 50 1742-6) AST(SGOT) (test code = 36 U/L 13-40 6103456554) eGFR (test code = mL/min/1.73m2 1015693937) ROSLYN (test code = ROSLYN) Association of [...] tests). Lab Interpretation Abnormal (test code = 55513-3) [facility]. METABOLIC PANEL (69516)2022-07-20 16:30:19 Test Item Value Reference Range Interpretation Comments NA (test code = 133 mmol/L 135-145 L 7448683741) K (test code = 5.3 mmol/L 3.5-5 H 6039083430) CL (test code = 98 mmol/L 98-108 9802508539) CO2 TOTAL (test code = 27 mmol/L 23-31 5401627261) AGAP (test code = 2-16 5883630282) BUN (test code = 13 mg/dL 7-23 6729249248) GLUCOSE (test code = 273 mg/dL 70-110 H 3898259808) CREATININE (test code = 0.62 mg/dL 0.6-1.25 3128542774) TOTAL BILI (test code = 2.1 mg/dL 0.1-1.1 H 3445188510) CALCIUM (test code = 8.6 mg/dL 8.6-10.6 3054520943) T PROTEIN (test code = 7.3 g/dL 6.3-8.2 2326142186) ALBUMIN (test code = 4.4 g/dL 3.5-5 6578110394) ALK PHOS (test code = 61 U/L 34-122 3378374112) ALTv (test code = 29 U/L 5-50 2-6) AST(SGOT) (test code = 36 U/L 13-40 6799009110) eGFR (test code = mL/min/1.73m2 5405754040) ROSLYN (test code = ROSLYN) Association of [...] tests). Lab Interpretation Abnormal (test code = 71578-0) [facility] [id number] 16:29:23 Test Item Value Reference Range Interpretation Comments PROTIME PATIENT (test See_Comment [Auto mated message] code = 5964-2) The system Z[employer] generated this result transmitted ref erence range: 12.0 - 1 4.7 Seconds. The re ference range was not u sed to interpret this result as normal/abnor mal. INR (test code = 6301-6) Nor mal INR <1.1; Warfarin Therap eutic range 2.0 to 3. 0 or 2.5 to 3.5, dep ending upon the indica tions. Lab Interpretation (test Normal code = 36045-5) [facility] [id number] 16:29:23 Test Item Value Reference Range Interpretation Comments PROTIME PATIENT (test See_Comment [Auto mated message] code = 5964-2) The system [employer] generated this result transmitted ref erence range: 12.0 - 1 4.7 Seconds. The re ference range was not u sed to interpret this result as normal/abnor mal. INR (test code = 6301-6) Nor mal INR <1.1; Warfarin Therap eutic range 2.0 to 3. 0 or 2.5 to 3.5, dep ending upon the indica tions. Lab Interpretation (test Normal code = 85985-8) [facility]"
--- NOTE | 2022-10-23 09:17 | RAD REPORT ---
EXAM DESCRIPTION: RAD - Chest Single View - 10/23/2022 9:06 am CLINICAL HISTORY: CHEST PAIN Chest pain. COMPARISON: Chest Single View dated 10/20/2022; Chest Single View dated 10/15/2022; Chest Single View dated 10/11/2022; Chest Single View dated 10/07/2022 FINDINGS: Portable technique limits examination quality. Mild bilateral pulmonary opacities are present in both lung bases, likely chronic. No focal infiltrat e seen suggestive of pneumonia. The heart is mildly enlarged in size. No displaced fractures.
[2022-10-23 09:44] LABS: Absolute Lymphocytes (CBC) 2.8 K/uL (0.7-4.9); Hematocrit 46.5 % (39.6-49.0); Lymphocytes % 17.4 % (15.3-44.8); MCV 90.6 fL (80-100); MPV 9.9 fL (7.6-11.3); RBC Red Blood Cell Count 5.14 M/uL (4.33-5.43)
[2022-10-23 09:56] LABS: SARS-CoV-2 Antigen Rapid Res Negative (Negative)
[2022-10-23] MEDS ORDERED: NA CHLORIDE 0.9% 1,000 ML ONE (10:00)
[2022-10-23] MEDS ORDERED: FAMOTIDINE 20 MG/2 ML VIAL IV ONE (10:00)
[2022-10-23] MEDS ORDERED: ASPIRIN 81 MG CHEWABLE TABLET ONE (10:00)
[2022-10-23 10:03] LABS: Protime INR 1.19
[2022-10-23 10:06] LABS: Albumin 3.7 g/dL (3.4-5.0); Bilirubin Direct 0.2 mg/dL (0-0.2); Potassium 3.8 mmol/L (3.5-5.1); Protein, Total 7.8 g/dL (6.4-8.2); Troponin High Sensitivity 13.6 pg/mL (<58.9)
--- NOTE | 2022-10-23 10:51 | ER ---
Nurse's Notes [facility] Name: José Pat Age: 72 yrs Sex: Male : 1950 Arrival Date: 10/23/2022 Time: 08:32 Bed 19 Private MD: Diagnosis: Chest pain, unspecified;Weakness;Syncope Near;Elevated white blood cell count;Tachycardia, unspecified;Hypotension, unspecified-resolved Presentation: 10/23 08:33 Chief complaint: EMS states: CHEST PAIN WHILE OUTSIDE IN RAIN SMOKING. Coronavirus bp screen: At this time, the client does not indicate any symptoms associated with coronavirus-19. Ebola Screen: No symptoms or risks identified at this time. Initial Sepsis Screen: Does the patient meet any 2 criteria? HR > 90 bpm. No. Patient's initial sepsis screen is negative. Does the patient have a suspected source of infection? No. Patient's initial sepsis screen is negative. Risk Assessment: Do you want to hurt yourself or someone else? Patient reports no desire to harm self or others. Onset of symptoms was October 23, 2022 at 08:00. Care prior to arrival: Medication(s) given: ASA, 325 mg, IV initiated. 22 GA, in the left antecubital area, Glucose check: 150. 08:33 Method Of Arrival: EMS: [facility] bp 08:33 Acuity: KIT 3 bp Triage Assessment: 08:34 General: Appears in no apparent distress. unkempt, Behavior is calm, cooperative, bp appropriate for age. Pain: Denies pain. EENT: No deficits noted. Neuro: No deficits noted. Cardiovascular: Rhythm is atrial fibrillation. Respiratory: Breath sounds are coarse bilaterally. GI: No signs and/or symptoms were reported involving the gastrointestinal system. : No signs and/or symptoms were reported regarding the genitourinary system. Derm: No deficits noted. Musculoskeletal: No deficits noted. Historical: - Allergies: 08:34 No Known Allergies; bp - Home Meds: 08:34 Eliquis Oral [Active]; Insulin: Lantus Sub-Q [Active]; tamsulosin 0.4 mg Oral cap bp [Active]; - PMHx: 08:34 Atrial fibrillation; CHF; COPD; Diabetes - IDDM; Myocardial infarction; bp - Immunization history:: Adult Immunizations up to date. - Social history:: Smoking status: Patient reports the use of cigarette tobacco products, unknown amount. - Family history:: not pertinent. Screenin:36 [facility] ED Fall Risk Assessment (Adult) History of falling in the last 3 months, bp including since admission No falls in past 3 months (0 pts) Confusion or Disorientation No (0 pts) Intoxicated or Sedated No (0 pts) Impaired Gait No (0 pts) Mobility Assist Device Used No (0 pt) Altered Elimination No (0 pt) Score/Fall Risk Level 0 - 2 = Low Risk Oriented to surroundings, Maintained a safe environment, Educated pt \T\ family on fall prevention, incl call for assistance when getting out of bed. Humpty Dumpty Scale Fall Assessment Tool (age< 18yrs) Age 13 years and above (1 pt) Gender Male (2 pts) Diagnosis Other diagnosis (1 pt) Cognitive Impairments Oriented to own ability (1 pt) Environmental Factors Patient placed in bed (2 pts) Response to Surgery/Sedation/Anesthesia More than 48 hours/ None (1 pt) Medication Usage Other medications/ None (1 pt) Fall Risk Score/ Level Low Fall Risk: </= 11 points Oriented to surroundings, Maintained a safe environment: Age specific bed with railing, Bed in low position\T\ wheels locked, Assess need for siderail use, Locks on, Rm \T\ paths clutter \T\ obstacle free, Proper lighting, Call light, personal item w/in reach, Alarms as needed, Educated pt \T\ family on fall prevention, incl. call for assistance when getting out of bed, Assessed \T\ reinforced patient's understanding of fall precautions. Abuse screen: Denies threats or abuse. Denies injuries from another. Nutritional screening: No deficits noted. Tuberculosis screening: No symptoms or risk factors identified. Fall Risk No fall in past 12 months (0 pts). No secondary diagnosis (0 pts). IV access (20 points). Ambulatory Aid- None/Bed Rest/Nurse Assist (0 pts). Gait- Normal/Bed Rest/Wheelchair (0 pts) Mental Status- Oriented to own ability (0 pts). Total Baron Fall Scale indicates No Risk (0-24 pts). Assessment: 08:36 General: SEE TRIAGE NOTE. bp 09:36 Reassessment: No changes from previously documented assessment. Patient and/or family bp updated on plan of care and expected duration. Pain level reassessed. 10:22 Reassessment: No changes from previously documented assessment. Patient and/or family bp updated on plan of care and expected duration. Pain level reassessed. Vital Signs: 08:33 BP 113 / 72; Pulse 111; Resp 20; Temp 98; Pulse Ox 95% on R/A; bp 09:35 BP 89 / 64; Pulse 101; Resp 21; Pulse Ox 94% ; Weight 81 kg; Height 5 ft. 7 in. (170.18 bp cm); 10:21 BP 117 / 77; Pulse 91; Resp 18; Pulse Ox 97% on 2 lpm NC; bp 09:35 Body Mass Index 27.97 (81.00 kg, 170.18 cm) bp ED Course: 08:32 Patient arrived in ED. rosalva 08:32 Feliberto Stokes MD is Attending Physician. rosalva 08:33 Collins Monte, RN is Primary Nurse. bp 08:34 Triage completed. bp 08:34 Arm band placed on. bp 08:36 Patient has correct armband on for positive identification. Bed in low position. Call bp light in reach. Side rails up X2. 08:36 Maintain EMS IV. Dressing intact. Good blood return noted. Site clean \T\ dry. Gauge \T\ bp site: 22 LEFT AC. 09:08 XRAY Chest (1 view) In Process Unspecified. EDMS 10:49 Tim Chaidez is Hospitalizing Provider. rosalva Administered Medications: 09:44 CANCELLED (Duplicate Order): Aspirin 162 mg PO once rosalva 10:15 Drug: NS 0.9% 500 ml Route: IV; Rate: bolus; Site: left antecubital; bp 10:15 Drug: NS 0.9% 1000 ml Route: IV; Rate: 125 ml/hr; Site: left antecubital; bp 10:15 Drug: Aspirin 81 mg Route: PO; bp 10:15 Drug: Pepcid (famotidine) 20 mg Route: IVP; Site: left antecubital; bp Medication: 08:36 VIS not applicable for this client. bp Outcome: 10:51 Decision to Hospitalize by Provider. rosalva 18:33 Patient left the ED. bp Signatures: Dispatcher [employer] EDMS Feliberto Stokes MD MD cha Peltier, Brian, RN RN bp Corrections: (The following items were deleted from the chart) 14:57 09:35 BP 89 / 64; Pulse 101bpm; Resp 21bpm; Pulse Ox 94%; bp bp
--- NOTE | 2022-10-23 10:52 | EDPHYS ---
Physician Documentation [facility] Name: oJsé Pat Age: 72 yrs Sex: Male : 1950 Arrival Date: 10/23/2022 Time: 08:32 Bed 19 Private MD: ED Physician Feliberto Stokes HPI: 10/23 09:53 This 72 yrs old Male presents to ER via EMS with complaints of chest pain. [facility] 09:53 The patient or guardian reports chest pain that is located primarily in the anterior [facility] chest wall, bilaterally. Onset: last night. The pain does not radiate. Associated signs and symptoms: The patient has no apparent associated signs or symptoms. The chest pain is described as a pressure. Duration: The patient or guardian reports multiple episodes, with no pattern. Modifying factors: The symptoms are alleviated by nothing. the symptoms are aggravated by walking. Severity of pain: At its worst the pain was moderate. The patient has experienced similar episodes in the past, multiple times. Historical: - Allergies: 08:34 No Known Allergies; bp - Home Meds: 08:34 Eliquis Oral [Active]; Insulin: Lantus Sub-Q [Active]; tamsulosin 0.4 mg Oral cap bp [Active]; - PMHx: 08:34 Atrial fibrillation; CHF; COPD; Diabetes - IDDM; Myocardial infarction; bp - Immunization history:: Adult Immunizations up to date. - Social history:: Smoking status: Patient reports the use of cigarette tobacco products, unknown amount. - Family history:: not pertinent. ROS: 09:53 Constitutional: Negative for fever, chills, and weight loss, Eyes: Negative for injury, rosalva pain, redness, and discharge, ENT: Negative for injury, pain, and discharge, Neck: Negative for injury, pain, and swelling, Respiratory: Negative for shortness of breath, cough, wheezing, and pleuritic chest pain, Abdomen/GI: Negative for abdominal pain, nausea, vomiting, diarrhea, and constipation, Back: Negative for injury and pain, : Negative for injury, bleeding, discharge, and swelling, MS/Extremity: Negative for injury and deformity, Skin: Negative for injury, rash, and discoloration, Neuro: Negative for headache, weakness, numbness, tingling, and seizure, Psych: Negative for depression, anxiety, suicide ideation, homicidal ideation, and hallucinations, Allergy/Immunology: Negative for hives, rash, and allergies, Endocrine: Negative for neck swelling, polydipsia, polyuria, polyphagia, and marked weight changes, Hematologic/Lymphatic: Negative for swollen nodes, abnormal bleeding, and unusual bruising. :53 Neck: Positive for :53 Cardiovascular: Positive for chest pain, palpitations. Exam: :53 Constitutional: This is a well developed, well nourished patient who is awake, alert, rosalva and in no acute distress. Head/Face: Normocephalic, atraumatic. Eyes: Pupils equal round and reactive to light, extra-ocular motions intact. Lids and lashes normal. Conjunctiva and sclera are non-icteric and not injected. Cornea within normal limits. Periorbital areas with no swelling, redness, or edema. ENT: Nares patent. No nasal discharge, no septal abnormalities noted. Tympanic membranes are normal and external auditory canals are clear. Oropharynx with no redness, swelling, or masses, exudates, or evidence of obstruction, uvula midline. Mucous membranes moist. Neck: Trachea midline, no thyromegaly or masses palpated, and no cervical lymphadenopathy. Supple, full range of motion without nuchal rigidity, or vertebral point tenderness. No Meningismus. Chest/axilla: Normal chest wall appearance and motion. Nontender with no deformity. No lesions are appreciated. Cardiovascular: Regular rate and rhythm with a normal S1 and S2. No gallops, murmurs, or rubs. Normal PMI, no JVD. No pulse deficits. Respiratory: Lungs have equal breath sounds bilaterally, clear to auscultation and percussion. No rales, rhonchi or wheezes noted. No increased work of breathing, no retractions or nasal flaring. Abdomen/GI: Soft, non-tender, with normal bowel sounds. No distension or tympany. No guarding or rebound. No evidence of tenderness throughout. Back: No spinal tenderness. No costovertebral tenderness. Full range of motion. Skin: Warm, dry with normal turgor. Normal color with no rashes, no lesions, and no evidence of cellulitis. MS/ Extremity: Pulses equal, no cyanosis. Neurovascular intact. Full, normal range of motion. Neuro: Awake and alert, GCS 15, oriented to person, place, time, and situation. Cranial nerves II-XII grossly intact. Motor strength 5/5 in all extremities. Sensory grossly intact. Cerebellar exam normal. Normal gait. Psych: Awake, alert, with orientation to person, place and time. Behavior, mood, and affect are within normal limits. 09:53 ECG was reviewed by the Attending Physician. Vital Signs: 08:33 BP 113 / 72; Pulse 111; Resp 20; Temp 98; Pulse Ox 95% on R/A; bp 09:35 BP 89 / 64; Pulse 101; Resp 21; Pulse Ox 94% ; Weight 81 kg; Height 5 ft. 7 in. (170.18 bp cm); 10:21 BP 117 / 77; Pulse 91; Resp 18; Pulse Ox 97% on 2 lpm NC; bp 09:35 Body Mass Index 27.97 (81.00 kg, 170.18 cm) bp MDM: 08:32 Patient medically screened. rosalva 09:57 Differential diagnosis: abnormal EKG, acute myocardial infarction, congestive heart rosalva failure esophagitis, pancreatitis, peptic ulcer disease, pleurisy, pulmonary embolus, stable angina, thoracic aortic disection, unstable angina. HEART Score: History: Moderately Suspicious (1), ECG: Non specific repolarization disturbance / LBTB / PM (1), Age: > or = 65 years (2), Risk Factors: > or = 3 Risk factors for atherosclerotic disease (2), [Hypercholesterolemia] [Hypertension] [DM] [Active Smoker] [+ Family HX] [Obesity] Troponin: < or = 1 x Normal Limit (0), Total Score = 5. The patient was given aspirin in the Emergency Department. The patient's deep vein thrombosis risk score was calculated as follows: Total Score: 0. This patient was found to be at low risk for a deep vein thrombosis by using the Well's assessment criteria. The patient's pulmonary embolism risk score was calculated as follows: Total Score: 0-2 points. This patient was found to be at low risk for a pulmonary embolism by using the Well's assessment criteria. FLORENTIN Risk Score: 1 - patient's age is greater or equal to 65 years, 1 - Three or more CAD risk factors, 1- Known CAD, 1 - Recent [<24hrs] Severe Angina, TOTAL SCORE = 4. Data reviewed: vital signs, nurses notes, lab test result(s), EKG, radiologic studies, plain films. Data interpreted: library monitor: rate is 10 beats/min, rhythm is sinus tachycardia, Pulse oximetry: on room air is 94 %. Test interpretation: by ED physician or midlevel provider: ECG, plain radiologic studies. 10/23 08:34 Order name: Basic Metabolic Panel; Complete Time: 10:48 [facility] 10/23 08:34 Order name: CBC with Diff; Complete Time: 10:48 [facility] 10/23 08:34 Order name: LFT's; Complete Time: 10:48 [facility] 10/23 08:34 Order name: Magnesium; Complete Time: 10:48 [facility] 10/23 08:34 Order name: NT PRO-BNP; Complete Time: 10:48 [facility] 10/23 08:34 Order name: PT-INR; Complete Time: 10:48 [facility] 10/23 08:34 Order name: Troponin HS; Complete Time: 10:48 [facility] 10/23 08:34 Order name: SARS RAPID; Complete Time: 10:48 [facility] 10/23 11:28 Order name: T4 Free [facility] 10/23 11:28 Order name: Thyroid Stimulating Hormone [facility] 10/23 11:28 Order name: Urinalysis [facility] 10/23 11:28 Order name: Basic Metabolic Panel [facility] 10/23 11:28 Order name: Basic Metabolic Panel [facility] 10/23 11:28 Order name: CBC with Automated Diff [facility] 10/23 08:34 Order name: XRAY Chest (1 view); Complete Time: 10:48 [facility] 10/23 08:34 Order name: EKG; Complete Time: 08:35 [facility] 10/23 08:34 Order name: Cardiac monitoring; Complete Time: 08:39 [facility] 10/23 11:24 Order name: Thorax Wo Con [facility] 10/23 11:27 Order name: CONS Physician Consult [facility] 10/23 11:27 Order name: Heart Healthy [facility] 10/23 11:28 Order name: CBC with Automated Diff [facility] 10/23 11:28 Order name: NT PRO-BNP [facility] 10/23 11:28 Order name: NT PRO-BNP [facility] 10/23 11:31 Order name: Blood Culture [facility] 10/23 15:50 Order name: Urine Dipstick-Ancillary [facility] 10/23 08:34 Order name: EKG - Nurse/Tech; Complete Time: 08:39 [facility] 10/23 08:34 Order name: IV Saline Lock; Complete Time: 08:39 [facility] 10/23 08:34 Order name: Labs collected and sent; Complete Time: 09:28 [facility] 10/23 08:34 Order name: O2 Per Protocol; Complete Time: 08:40 [facility] 10/23 08:34 Order name: O2 Sat Monitoring; Complete Time: 08:40 [facility] 10/23 08:34 Order name: Urine Dipstick-Ancillary (obtain specimen); Complete Time: 15:50 [facility] EC:53 Rate is 108 beats/min. Rhythm is regular. QRS [place] is Normal. CA interval is normal. rosalva QRS interval is normal. QT interval is normal. No Q waves. T waves are Normal. No ST changes noted. Clinical impression: Abnormal EKG without significant change and Sinus tachycardia. Interpreted by me. Reviewed by me. Administered Medications: 09:44 CANCELLED (Duplicate Order): Aspirin 162 mg PO once rosalva 10:15 Drug: NS 0.9% 500 ml Route: IV; Rate: bolus; Site: left antecubital; bp 10:15 Drug: NS 0.9% 1000 ml Route: IV; Rate: 125 ml/hr; Site: left antecubital; bp 10:15 Drug: Aspirin 81 mg Route: PO; bp 10:15 Drug: Pepcid (famotidine) 20 mg Route: IVP; Site: left antecubital; bp Disposition Summary: 10/23/22 10:51 Hospitalization Ordered Hospitalization Status: Observation rosalva Provider: Tim Chaidez cha Condition: Fair rosalva Problem: new rosalva Symptoms: have improved rosalva Bed/Room Type: Standard rosalva Location: Telemetry/MedSurg (observation)(10/23/22 16:37) Room Assignment: [facility](10/23/22 16:37) Diagnosis - Chest pain, unspecified rosalva - Weakness rosalva - Syncope Near rosalva - Elevated white blood cell count rosalva - Tachycardia, unspecified rosalva - Hypotension, unspecified - resolved rosalva Forms: - Medication Reconciliation Form rosalva - SBAR form rosalva Signatures: Dispatcher [employer] Barbi Webster RN RN Feliberto Carbajal MD MD cha Peltier, Brian, RN RN bp Corrections: (The following items were deleted from the chart) 09:44 09:42 Aspirin 162 mg PO once ordered. rosalva rosalva 16:29 10:51 Telemetry/MedSurg (observation) rosalva bp 16:29 10:51 rosalva bp 16:37 16:29 BR ER HOLD bp dw 16:37 16:29 ERHOLD- bp dw 16:37 16:37 dw dw
[2022-10-23] MEDS ORDERED: ACETAMINOPHEN 325 MG TABLET PO PRN ×2 (11:19→11:22)
[2022-10-23] MEDS ORDERED: HYDROCODONE/APAP 5/325 MG TAB PO PRN (11:19)
[2022-10-23] MEDS ORDERED: ALBUTEROL 2.5 MG/3 ML NEB SOL NEB PRN ×2 (11:24→16:00)
[2022-10-23] MEDS ORDERED: ONDANSETRON 4 MG/2 ML VIAL IV PRN (11:24)
--- NOTE | 2022-10-23 11:30 | P.HP ---
Certification for Inpatient Patient admitted to: Observation With expected LOS: <2 Midnights Patient will require the following post-hospital care: None Practitioner: I am a practitioner with admitting privileges, knowledge of patient current condition, hospital course, and medical plan of care. Services: Services provided to patient in accordance with Admission requirements found in Title 42 Section 412.3 of the Code of Federal Regulations Patient History Date of Service: 10/23/22 Reason for admission: Chest pain History of Present Illness: Patient is a 72-year-old male with a past medical history significant for CHF, A. fib, COPD, DM 2, VT, BPH, nicotine dependence who presents with complaint of chest pain onset yesterday. Patient reported that chest pain is located in the substernal chest area, rated pain as 8/10 in severity and described pain as squeezing in quality. Patient reported associated signs and symptoms of shortness of breath and cough. Patient denies any other signs and symptoms. Symptoms are aggravated by exertion and relieved by nothing. Patient decided to present to the hospital due to worsening symptoms. Of note, patient reports that he uses O2 therapy at 4.5 L/min at bedtime. Allergies No Known Allergies Allergy (Verified 06/10/22 22:17) Home Medications: Aspirin [Aspirin EC 81 MG] 81 mg PO DAILY #30 tablet. 07/04/22 Apixaban [Eliquis] 5 mg PO BID #60 tab 10/09/22 Atorvastatin Calcium [Lipitor] 40 mg PO BEDTIME #30 tab 10/09/22 Digoxin 125 mcg PO DAILY #30 tab 10/09/22 - Past Medical/Surgical History Diabetic: Yes -: DIVERTICULITIS -: COPD -: A. fib -: Diastolic CHF -: Diabetes mellitus type 2 -: Hypertension -: Hyperlipidemia -: Colostomy and reversal Psychosocial/ Personal History: Patient lives at home with his - Family History Father Notes: mesothelioma Mother -: Heart disease, Hypertension - Social History Smoking Status: Current every day smoker Counseled patient to stop smoking for: less than 10 minutes Smoking therapy provided: Yes Patient receptive to therapy: Yes Alcohol use: No CD- Drugs: No Caffeine use: Yes Place of Residence: Home Review of Systems General: Unremarkable Eyes: Unremarkable ENT: Unremarkable Respiratory: Cough, Shortness of Breath Cardiovascular: Chest Pain Gastrointestinal: Unremarkable Genitourinary: Unremarkable Musculoskeletal: Unremarkable Integumentary: Unremarkable Neurological: Unremarkable Lymphatics: Unremarkable Physical Examination - Physical Exam General: Alert, In no apparent distress, Oriented x3, Cooperative HEENT: Atraumatic, PERRLA, Mucous membr. moist/pink, EOMI, Sclerae nonicteric Neck: Supple, 2+ carotid pulse no bruit, No LAD, Without JVD or thyroid abnormality Respiratory: Diminished Cardiovascular: No edema, No murmurs Capillary refill: <2 Seconds Gastrointestinal: Normal bowel sounds, No tenderness Musculoskeletal: No clubbing, No swelling, No tenderness Integumentary: No rashes, No breakdown, No significant lesion, No tendern ess/swelling, No erythema Neurological: Normal speech, Normal tone, Normal affect Lymphatics: No axilla or inguinal lymphadenopathy - Studies Laboratory Data (last 24 hrs) 10/23/22 09:25: PT 13.1 H, INR 1.19 10/23/22 09:25: WBC 16.40 H, Hgb 15.5, Hct 46.5, Plt Count 266 10/23/22 09:25: Sodium 136, Potassium 3.8, BUN 19 H, Creatinine 1.03, Glucose 183 H, Magnesium 2.0, Total Bilirubin 1.0, AST 9 L, ALT 15 L, Alkaline Phosphatase 65 Assessment and Plan - Plan --Chest pain. Likely atypical. Serial troponins negative so far. Communicated with senior benefits analyst who reported that patient recently had normal left heart catheterization a couple of days ago. Mill Beam Fitter is of the opinion that chest pain is not cardiac in origin. Telemetry to monitor for any significant arrhythmia. CT chest indicates findings compatible with moderate diffuse COPD. We will continue to trend serial troponins. -- Acute on chronic COPD exacerbation. Continue steroids, neb treatment with Atrovent\DuoNeb and O2 therapy. --Acute on chronic systolic CHF exacerbation. Continue diuresis with Lasix. Daily weight and strict I/O. --DM2. BS monitoring with sliding scale insulin. -- History of VT. Continue aspirin, Eliquis and statin. --Hyperlipidemia. Continue statin. --Chronic A. fib. Continue Eliquis. --CKD 2. Stable. We will continue to monitor renal functions. -- BPH. Continue home medications.. --Nicotine dependence. Patient placed on nicotine patch and counseled on tobacco cessation. -- Leukocytosis. Likely reactive. Blood cultures pending to rule out any infectious process. We will continue to monitor WBCs -- DVT prophylaxis with Eliquis. Discharge Plan: Home Plan to discharge in: 48 Hours - Advance Directives Does patient have a Living Will: No Does patient have a Durable POA for Healthcare: No - Code Status/Comfort Care Code Status Assessed: Yes Physician Review: Patient Assessed, Agree with Above Assessment and Plan Critical Care: No
[2022-10-23 12:24] LABS: Thyroid Stimulating Hormone 1.28 uIU/mL (0.358-3.740)
--- NOTE | 2022-10-23 12:38 | RAD REPORT ---
EXAM DESCRIPTION: CT - Thorax Wo Con CLINICAL HISTORY: Chest pain SOB COMPARISON: Chest For Pe Angio dated 10/20/2022; Chest Single View dated 10/23/2022 FINDINGS: Moderate diffuse COPD is seen. Linear scarring or atelectasis is present in the left lung base. No pleural thickening or pleural effusion. No pneumothorax. No axillary, mediastinal or hilar adenopathy. No concerning bony finding. Mild thoracic spondylosis. All CT scans are performed using dose optimization technique as appropriate and may include automated exposure control or mA/KV adjustment according to patient size. IMPRESSION: Moderate diffuse COPD.
[2022-10-23 15:04] VITALS: BMI 27.3
[2022-10-23 15:49] LABS: Urine Blood Negative (Negative); Urine Glucose Negative (Negative); Urine Protein Negative (Negative); Urine pH 5.5 (5.0-7.0)
[2022-10-23] MEDS ORDERED: GLUCAGON 1 MG/VIAL IM PRN (16:40)
[2022-10-23] MEDS ORDERED: D10W 250 ML BAG IV PRN (16:49)
[2022-10-23] MEDS: METHYLPREDNISOLONE 40 MG INJ IV SCH (17:00)
[2022-10-23] MEDS: FUROSEMIDE 40 MG/4 ML VIAL IV SCH (17:00)
[2022-10-23] MEDS ORDERED: FUROSEMIDE 40 MG/4 ML VIAL ONE (17:58)
[2022-10-23] MEDS ORDERED: METHYLPREDNISOLONE 40 MG INJ ONE (17:58)
[2022-10-23] MEDS: IPRATROPIUM BROM 0.5MG/2.5ML NEB SCH (20:00)
[2022-10-23] MEDS: APIXABAN 5 MG TABLET PO SCH (20:49)
[2022-10-23] MEDS: INSULIN -REGULAR HUMAN 50 UNIT/0.5 ML ML SQ SCH (20:50)
[2022-10-23] MEDS ORDERED: ATORVASTATIN 40 MG TAB PO SCH (21:00)
[2022-10-24 00:52] LABS: Specific Gravity 1.008 (1.005-1.030); Urine Bacteria <20 /HPF (<20); Urine Bilirubin NEGATIVE (Negative); Urine Blood Negative (Negative); Urine Clarity Clear (Clear); Urine Color Colorless (Yellow); Urine Glucose NEGATIVE (Negative); Urine Mucus Slight /HPF (None Seen); Urine Protein NEGATIVE (Negative); Urine RBC None Seen /HPF (None Seen); Urine Urobilinogen Normal (Normal); Urine Yeast with Hyphae Trace /HPF (None Seen)
[2022-10-24] MEDS: METHYLPREDNISOLONE 40 MG INJ IV SCH ×2 (01:04→09:34)
[2022-10-24] MEDS: IPRATROPIUM BROM 0.5MG/2.5ML NEB SCH ×3 (02:25→14:20)
[2022-10-24 06:10] LABS: Absolute Lymphocytes (CBC) 1.1 K/uL (0.7-4.9); Hematocrit 45.8 % (39.6-49.0); Lymphocytes % 8.9 % (15.3-44.8); MCV 90.8 fL (80-100); MPV 9.6 fL (7.6-11.3); RBC Red Blood Cell Count 5.04 M/uL (4.33-5.43)
[2022-10-24 06:25] LABS: Potassium 4.1 mmol/L (3.5-5.1)
[2022-10-24] MEDS: INSULIN -REGULAR HUMAN 50 UNIT/0.5 ML ML SQ SCH (07:30)
--- NOTE | 2022-10-24 08:06 | EKG ---
Test Date: 2022-10-23 Test Time: 08:29:31 Chemistry Quality Control Analyst: BP MEASUREMENT RESULTS: Intervals: Rate: 108 [place]: 202 QRSD: 144 QT: 378 QTc: 506 [place]: P: [place]: 202 QRS: -88 T: 74 INTERPRETIVE STATEMENTS: Sinus tachycardia with premature atrial complexes Left axis deviation Right bundle branch block Inferior infarct, age undetermined Anterior infarct, age undetermined Abnormal ECG Compared to ECG 10/20/2022 16:00:40 Left-axis deviation now present First degree AV block no longer present Myocardial infarct finding still present Electronically Signed On 10-24-22 08:02:02 DOCKETING SPECIALIST by Nick Coulter
--- NOTE | 2022-10-24 08:54 | P.DS ---
Admission Date: 10/23/22 Discharge Date: 10/24/22 Disposition: ROUTINE DISCHARGE Discharge Condition: FAIR Reason for Admission: Chest pain - Problems (1) Acute on chronic systolic heart failure Current Visit: Yes Status: Acute (2) COPD with exacerbation Current Visit: No Status: Acute (3) Afib Current Visit: No Status: Chronic Qualifiers: Atrial fibrillation type: paroxysmal Qualified Code(s): I48.0 - Paroxysmal atrial fibrillation (4) Type 2 diabetes mellitus Current Visit: No Status: Chronic Qualifiers: Diabetes mellitus fci insulin use: with termite control service representative use Diabetes mellitus complication status: without complication Qualified Code(s): E11.9 - Type 2 diabetes mellitus without complications; Z79.4 - termite control service representative (current) use of insulin Brief History of Present Illness: Patient is a 72-year-old male with a past medical history significant for CHF, A. fib, COPD, DM 2, MS, BPH, nicotine dependence who presented with complaint of chest pain. Patient reported that chest pain is located in the substernal chest area, rated pain as 8/10 in severity and described pain as squeezing in quality. Patient reported associated signs and symptoms of shortness of breath and cough. Chest x-ray demonstrated mild bilateral pulmonary opacities. of note, patient reports that he uses O2 therapy at 4.5 L/min at bedtime. Patient admitted for further management. Hospital Course: Patient was placed under observation on the medical floor and treated for COPD exacerbation with IV steroids, scheduled bronchodilators. He was also treated for CHF exacerbation with IV Lasix. His symptoms resolved within 24 hours, patient tolerated 2 L oxygen by nasal cannula. He is currently asymptomatic and deemed stable for discharge. Patient prescribed bronchodilator-Trelegy, short course prednisone therapy. He is also prescribed oral Lasix. Vital Signs/Physical Exam: Temp Pulse Resp BP Pulse Ox 97.3 F 103 H 16 99/68 95 10/24/22 08:00 10/24/22 08:00 10/24/22 08:00 10/24/22 08:00 10/24/22 08:00 General: Alert, In no apparent distress, Oriented x3 HEENT: Mucous membr. moist/pink Neck: JVD not distended Respiratory: Clear to auscultation bilaterally, Normal air movement Cardiovascular: Regular rate/rhythm, Normal S1 S2 Gastrointestinal: Soft and benign, Non-distended, No tenderness Musculoskeletal: No swelling Integumentary: No rashes, No cyanosis Neurological: Normal strength at 5/5 x4 extr Laboratory Data at Discharge: WBC 12.90 K/uL (4.3-10.9) H 10/24/22 05:51 Hgb 15.2 g/dL (13.6-17.9) 10/24/22 05:51 Hct 45.8 % (39.6-49.0) 10/24/22 05:51 Plt Count 248 K/uL (152-406) 10/24/22 05:51 PT 13.1 SECONDS (9.5-12.5) H 10/23/22 09:25 INR 1.19 10/23/22 09:25 Sodium 132 mmol/L (136-145) L 10/24/22 05:51 Potassium 4.1 mmol/L (3.5-5.1) 10/24/22 05:51 BUN 19 mg/dL (7-18) H 10/24/22 05:51 Creatinine 0.83 mg/dL (0.70-1.30) 10/24/22 05:51 Glucose 292 mg/dL (74-106) H 10/24/22 05:51 Magnesium 2.0 mg/dL (1.6-2.4) 10/23/22 09:25 Total Bilirubin 1.0 mg/dL (0.2-1.0) 10/23/22 09:25 AST 9 U/L (15-37) L 10/23/22 09:25 ALT 15 U/L (16-61) L 10/23/22 09:25 Alkaline Phosphatase 65 U/L (45-117) 10/23/22 09:25 Triglycerides 128 mg/dL (<150) 10/23/22 18:25 Cholesterol 116 mg/dL (<200) 10/23/22 18:25 HDL Cholesterol 35 mg/dL (40-60) L 10/23/22 18:25 Cholesterol/HDL Ratio 3.31 10/23/22 18:25 Home Medications: Aspirin [Aspirin EC 81 MG] 81 mg PO DAILY #30 tablet. 07/04/22 Apixaban [Eliquis] 5 mg PO BID #60 tab 10/09/22 Atorvastatin Calcium [Lipitor] 40 mg PO BEDTIME #30 tab 10/09/22 Digoxin 125 mcg PO DAILY #30 tab 10/09/22 Fluticasone/Umeclidin/Vilanter [Trelegy Ellipta 200-62.5-25] 1 each IH DAILY 30 Days #1 kit 10/24/22 Furosemide [Lasix] 40 mg PO DAILY #10 tab 10/24/22 predniSONE [Deltasone] 40 mg PO DAILY #30 tab 10/24/22 New Medications: Furosemide [Lasix] 40 mg PO DAILY #10 tab predniSONE [Deltasone] 40 mg PO DAILY #30 tab Fluticasone/Umeclidin/Vilanter [Trelegy Ellipta 200-62.5-25] 1 each IH DAILY 30 Days #1 kit Diet: ADA Activity: Ad clive Followup: NONE,NONE [Primary Care Provider] -
[2022-10-24] MEDS ORDERED: DIGOXIN 0.125 MG TABLET PO SCH (09:00)
[2022-10-24] MEDS ORDERED: ASPIRIN 81 MG CHEWABLE TABLET PO SCH (09:00)
[2022-10-24] MEDS ORDERED: NICOTINE 21 MG/PAT TD SCH (09:00)
[2022-10-24] MEDS: APIXABAN 5 MG TABLET PO SCH (09:34)
[2022-10-24] MEDS: FUROSEMIDE 40 MG/4 ML VIAL IV SCH (09:34)
[2022-10-24 12:45] VITALS: BP 89/65; TEMP 97.5
[2022-10-24 15:26] VITALS: O2SAT 93
== END 2022-10-24 15:15 | disposition home or self-care (01) ==
LOC: ER 08:22 → ERHOLD 11:17 → 2ND 18:13
PROVIDERS: ADMIT Internal Medicine; ATTEND Internal Medicine
DX: I50.23 Acute on chronic systolic (congestive) heart failure (principal); J44.1 Chronic obstructive pulmonary disease with (acute) exacerbation; E11.9 Type 2 diabetes mellitus without complications; I25.2 Old myocardial infarction; I48.0 Paroxysmal atrial fibrillation; N40.0 Benign prostatic hyperplasia without lower urinary tract symptoms; F17.210 Nicotine dependence, cigarettes, uncomplicated; E78.5 Hyperlipidemia, unspecified; Z79.01 Long term (current) use of anticoagulants; N18.2 Chronic kidney disease, stage 2 (mild); D72.829 Elevated white blood cell count, unspecified; Z20.822 Contact with and (suspected) exposure to COVID-19
CPT/HCPCS: 93005; 87040; 85025 ×2; 81001; 80048 ×2; 36415 ×2; 83735; 85610; 80061; 82947 ×3; 80076; 84443; 81003; 83036; 84484 ×3; 84439; 83880 ×2; 71250; 71045; 94640; 96374; 99284; 87811; J1815 ×2; J1940 ×2; J7644 ×3; J7030; J2920 ×3; G0378 ×3

== ENCOUNTER 2022-10-26 16:32 | Emergency (ER) | payer OTHER ==
--- OUTSIDE RECORDS SUMMARY | 2022-10-26 16:39 | XMS REPORT | Continuity of Care Document ---
:1950 Author Organization [facility] t Address [address] [place] [address] Care Team Providers Name Role Phone Pcp, Patient Does Not Have A Primary Care Physician [phone] Attending Clinician Unavailable Meghana Ayala Attending Clinician Unavailable Jose Kim Rahil Attending Clinician Unavailable La Foster RN Attending Clinician Unavailable Charlene Butt DO Attending Clinician Atul Stephens MD Attending Clinician Berna Alcantar MD Attending Clinician [phone] BERNA ALCANTAR Attending Clinician Unavailable Orlando Cannon MD Attending Clinician [id number] Admitting Clinician Unavailable Jose Kim Rahil Admitting Clinician Unavailable Berna Alcantar MD Admitting Clinician [phone] BERNA ALCANTAR Admitting Clinician Unavailable Payers Payer Name Policy Type Policy Number Effective Date Expiration Date S cindy [facility] [id number] Problems Condition Condition Condition Status Onset Resolution [...] diabetes 07-21 ity of mellitus mellitus 00:00: [place] without without 00 Medical complicati complicati Br [...] Added automatic ally from request for surgery [id number] CHF CHF Problem Active Common (congestiv (congestiv Sp anabela e heart e heart - [facility]I failure) failure) [facility] Hypertensi Hypertensi Problem Active C ommon on on Spirit - [facility] Diabetes Diabetes Problem Active Commo n type 2, type 2, Spirit controlled controlled - [facility] COPD COPD Problem Active Common (chronic (chronic Spirit obstructiv obstructiv - [facility] e e St pulmonary pulmonary [place] s disease) disease) Medica l Center Nicotine Nicotine Problem Active Commo n dependence dependence Sp anabela - [facility] Seasonal Seasonal Problem Active Commo n allergic allergic [facility] rhinitis rhinitis - [facility] Adjustment Adjustment Problem Active C ommon disorder disorder Spirit with with - CHI depressed depressed St mood mood [facility] Chronic Chronic Problem Active Common fatigue fatigue Spirit - [facility] Type 2 Type 2 [...] Active Univers ALLERGIE Class ity of S [facility] Social History Social Habit Start Date Stop Date Quantity Comments Source History of Cigarette Smoker Universi ty of tobacco use [place] [facility] [place] History [facility] Food 2022-07-29 2022-07-29 1 Univers ity of Worry 00:00:00 00:00:00 [place] [facility] History SDOH Food 2022-07-29 2022-07-29 1 Univers ity of Scarcity 00:00:00 00:00:00 [place] [facility] History SDOH 2022-07-29 2022-07-29 2 University o f Transport Med 00:00:00 00:00:00 [place] Medic al Branch History [facility] 2022-07-29 2022-07-29 2 University o f Transport Non-Med 00:00:00 00:00:00 [facility] edical Branch Tobacco use and 2022-07-21 2022-07-21 Smokeless tobacco Un iversity of exposure 00:00:00 00:00:00 non-user [facility] Exposure to 2022-07-10 2022-07-20 Not sure [facility] SARS-CoV-2 00:00:00 10:56:00 [facility] (event) Branch Sex Ass[birth year] At [birth year] Universit y of 00:00:00 00:00:00 [facility] Smoking Status Start Date Stop Date Source Smokes tobacco daily 2022-07-21 00:00:00 Univers ity of [facility] Medications Ordered Filled Start Stop Current Ordering [...] Until Discontinu ed, Routine furosemide 2021-0 Yes [id number] 40mg Take 1 Univers 40 mg 9-18 tablet by ity of tablet 00:00: mouth in [place] 00 the Medical morning Branch and 1 tablet in the evening. metoprolol 2021-0 Yes [id number] 50mg Take 1 Univers succinate 9-18 tablet by ity o f XL 50 mg 24 00:00: mouth in [place] hr tablet 00 the Medical morning. Branch spironolact 2021-0 Yes [id number] 25mg Take 1 Univers one 25 mg 9-18 tablet by ity o f tablet 00:00: mouth in [place] 00 the Medical morning. Branch furosemide 2021-0 Yes [id number] 40mg Take 1 Univers 40 mg 9-18 tablet by ity of tablet 00:00: mouth in [place] 00 the Medical morning Branch and 1 tablet in the evening. metoprolol 2021-0 Yes [id number] 50mg Take 1 Univers succinate 9-18 tablet by ity o f XL 50 mg 24 00:00: [place] hr tablet 00 the Medical morning. Branch spironolact 2021-0 Yes [id number] 25mg Take 1 Univers one 25 mg 9-18 tablet by ity o f tablet 00:00: mouth in [place] 00 the Medical morning. Branch furosemide 2021-0 Yes [id number] 40mg Take 1 Univers 40 mg 9-18 tablet by ity of tablet 00:00: mouth in [place] 00 the Medical morning Branch and 1 tablet in the evening. metoprolol 2021-0 Yes [id number] 50mg Take 1 Univers succinate 9-18 tablet by ity o f XL 50 mg 24 00:00: [place] hr tablet 00 the Medical morning. Branch spironolact 2021-0 Yes [id number] 25mg Take 1 Univers one 25 mg 9-18 tablet by ity o f tablet 00:00: mouth in [place] 00 the Medical morning. Branch aspirin 2-0 [...] by ity o f 21:46: mouth in [place] 23 the Medical morning. Branch montelukast Yes 1{tbl} Take 1 Un rita 10 mg 9-17 tablet by ity of tablet 21:46: mouth in [place] 23 the Medical morning. Branch albuterol Yes 2{puff} Take 2 Uni vers sulfate 9-17 Puffs by ity of (PROAIR 21:46: mouth as [place] RESPICLICK) 23 needed for Me dical 90 Cough. Branch mcg/actuati Cough, on AePB wheezing aspirin Yes 81mg Take 81 mg Univ ers (ASPIR-LOW 9-17 by mouth 2 ity of ORAL) 21:46: (two) [place] [address] times Medical daily. Branch insulin Yes 15U inject 15 Unive rs glargine,hu 9-17 Units ity of m.rec.anlog 21:46: under the [place] (LANTUS 23 skin. Medical U-100 Branch INSULIN SC) losartan 25 Yes 1{tbl} Take 1 Un rita mg tablet 9-17 tablet by ity o f 21:46: mouth in [place] 23 the Medical morning. Branch montelukast Yes 1{tbl} Take 1 Un rita 10 mg 9-17 tablet by ity of tablet 21:46: mouth in [place] 23 the Medical morning. Branch albuterol Yes 2{puff} Take 2 Uni vers sulfate 9-17 Puffs by ity of (PROAIR 21:46: mouth as [place] RESPICLICK) 23 needed for Me dical 90 Cough. Branch mcg/actuati Cough, on AePB wheezing aspirin Yes 81mg Take 81 mg Univ ers (ASPIR-LOW 9-17 by mouth 2 ity of ORAL) 21:46: (two) [place] 23 times Medical daily. Branch insulin Yes 15U inject 15 Unive rs glargine,hu 9-17 Units ity of m.rec.anlog 21:46: under the [place] (LANTUS 23 skin. Medical U-100 Branch INSULIN SC) losartan 25 Yes 1{tbl} Take 1 Un rita mg tablet 9-17 tablet by ity o f 21:46: mouth in [place] 23 the Medical morning. Branch montelukast Yes 1{tbl} Take 1 Un rita 10 mg 9-17 tablet by ity of tablet 21:46: mouth in [place] 23 the Medical morning. Branch albuterol Yes 2{puff} Take 2 Uni vers sulfate 9-17 Puffs by ity of (PROAIR 21:46: mouth as [place] RESPICLICK) 23 needed for Me dical 90 [...] Branch 07/26/22 at 2030, Routine atorvastati Yes [id number] 40mg Take 1 Univers n 40 mg -17 tablet by ity of tablet 00:00: mouth at [place] 00 bedtime. Medical Branch apixaban Yes [id number] 5mg Take 1 Univers (ELIQUIS) 5 9-17 tablet by ity of mg tablet 00:00: [place] 00 the Medical morning Branch and 1 tablet in the evening. Indication s: atrial fibrillati on atorvastati Yes [id number] 40mg Take 1 Univers n 40 mg 9-17 tablet by ity of tablet 00:00: mouth at [place] 00 bedtime. Medical Branch apixaban Yes 1358 5mg Take 1 Univers (ELIQUIS) 5 9-17 tablet by ity of mg tablet 00:00: [place] 00 the Medical morning Branch and 1 tablet in the evening. Indication s: atrial fibrillati on atorvastati Yes [id number] 40mg Take 1 Univers n 40 mg 9-17 tablet by ity of tablet 00:00: mouth at [place] 00 bedtime. Medical Branch apixaban Yes 1358 [...] ed insulin 2021- No 15U 15 Units, [facility] ers glargine 07-26 Subcutaneo ity [...] magnesium 2021- No 2g 2 g, IV [facility] ers sulfate in 07-26 Piggyback, [...] on Fri07/24/22 at 2000, Until Discontinu ed, LROI insulin 2021- No 2U 2 Units, Unive [...] 1000, Routine metoprolol Yes 50mg 50 mg, [facility] succinate 07-24 Oral, ity of XL (TOPROL 14:15: DAILY, [place] XL) tablet 00 First dose Med ical 50 mg on Wed Branch 07/24/22 at 0915, Until Discontinu ed, Routine metoprolol 2021- No 50mg 50 mg, [facility] ers succinate 07-24 Oral, ity of XL (TOPROL 14:15: 04:46 DAILY, [facility] s XL) tablet 00 :24 First dose [...] Rang e, Dosing and Testing: &nbs p;FOR [place], [facility], AND [facility] ONLY - aPTT < 35: [...] Rang e, Dosing and Testing: &nbs p;FOR [facility], [facility], AND C CAMPUSES ONLY - aPTT [...] 53 Starting Medi jose tablet 1 on [place] [facility] tablet 07/23/22 at 1031, Until Discontinu ed, Routine, Pain (scale 4-6) HYDROcodone 2021-0 2021- No 1{tbl} 1 tablet, Univers -acetaminop 07-23-18 Oral, ity of hen (NORCO 15:31: 04:46 Q6HPRN, [place] as 5) 5-325 mg 53 :24 Starting Medi jose tablet 1 on Fri [place] tablet 07/23/22 at 1031, Until 07/27/22 at [...] [place] mg 00 First dose Medical on [facility] 07/22/22 at 0900, Until Discontinu ed, Routine montelukast Yes 10mg 10 mg, Univ ers (SINGULAIR) 07-22 Oral, ity of tablet 10 14:00: DAILY, [place] mg 00 First dose Medical on [facility] 07/22/22 at 0900, Until Discontinu ed, Routine spironolact 2021- No 25mg 25 mg, Uni vers one 07-22 Oral, ity of (ALDACTONE) 14:00: 04:46 DAILY, [place] as tablet 25 00 :24 First dose Medi jose mg on [facility] 07/22/22 at 0900, Until Discontinu ed, Routine aspirin No 81mg 81 mg, Univers chewable 07-22 Oral, ity of tablet 81 14:00: 04:46 DAILY, [place] mg 00 :24 First dose Medical on [facility] 07/22/22 at 0900, Until Discontinu ed, Routine losartan 2021- No 25mg 25 mg, Univer s (COZAAR) 07-22 Oral, ity of tablet 25 14:00: 04:46 DAILY, [place] mg 00 :24 First dose Medical on [facility] 07/22/22 at 0900, Until Discontinu ed, Routine montelukast No 10mg 10 mg, Uni vers (SINGULAIR) 07-22 Oral, ity of tablet 10 14:00: 04:46 DAILY, [place] mg 00 :24 First dose Medical on [facility] 07/22/22 at 0900, Until Discontinu ed, Routine metoprolol No 50mg 50 mg, Univ ers tartrate 07-22 Oral, BID ity o f (LOPRESSOR) 13:00: 14:10 MEALS, [place] as tablet 50 00 :14 First dose Medi jose mg on [facility] 07/22/22 at 0800, Until Discontinu ed, Routine atorvastati Yes 40mg 40 mg, Univ ers n (LIPITOR) 07-22 Oral, QHS, it y of tablet 40 02:00: First dose [place] mg 00 on [facility] 07/21/22 at Branch 2100, Until Discontinu ed, Routine atorvastati 2021- No 40mg 40 mg, Uni vers n (LIPITOR) 07-22 Oral, QHS, i ty of tablet 40 02:00: 04:46 First dose [place] mg 00 :24 on [facility] 07/21/22 at Branch 2100, Until Discontinu ed, Routine morpHINE (2 2021- No 2mg 2 mg, Slow Univers mg/mL) 07-22 IV Push, ity of injection 2 01:29: 15:32 Q6HPRN, [place] mg 07 :09 Starting Medical on [facility] 07/21/22 at 2029, Until 07/23/22 at 1032, Routine, Chest pain furosemide 2021- No 20mg 20 mg, IV U nivers (LASIX) 07-22 Push, ity of injection 01:00: 05:27 Q12H, [place] 20 mg 00 :42 First dose Medical (after Branch last reorder) on [place] 07/21/22 at 2000, Until Discontinu ed, LORI enoxaparin 2021- No 1mg/kg 100 mg Un rita (LOVENOX) 07-22 (rounded ity o f injection 01:00: 05:30 [place] 98.5 [place] 100 mg 00 :31 mg = 1 Medical mg/kg Branch ?98.5 kg), Subcutaneo us, Q12H, First dose (after last modificati on) on [place] 07/21/22 at 2000, Until Discontinu ed, Routine sulfur 2021- No [id number] 5mL 5 mL, Unive rs hexafluorid 07-21 Intravenou i ty of e microsphr 15:45: 15:45 s, ONCE, 1 [place] (LUMASON) 00 :00 dose, On Medica l injection 5 Sun Branch mL 07/21/22 at 1045, Routine
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 dextrose 50 Yes 25mL 25 mL, Univ ers % in water 07-20 Slow IV ity of (D50W) 23:48: Push, PRN, [place] injection 16 Starting Medica l 25 mL on [facility] Branch 07/20/22 at 1848, Until Discontinu ed, LORI, Blood Glucose < or = 70 mg/dL and patient is unable to swallow or has mental status changes. glucagon 2021- No 1mg 1 mg, Univers (GLUCAGEN 07-2018 Intramuscu ity of DIAGNOSTIC 23:48: 04:46 lar, PRN, [place] KIT) 16 :24 Starting Medical injection 1 on [facility] Branch mg 07/20/22 at 1848, Until 07/27/22 [...] status changes. metoprolol No 25mg 25 mg, [facility] ers tartrate 07-20 Oral, Q6H, [...] 00 :00 dose, On Medica l mg [facility] Branch 07/20/22 at 1300, LORI furosemide 2021- [...] [place] mg 00 :00 dose, On Medical [facility] Branch 07/20/22 at 1115, LORI Trelegy Trelegy 2020- No Meghana 1 puff Com mon Ellipta Ellipta 2-12 06-11 [place] Spirit 00:00: 00:00 - [facility]I 00 :00 [facility] HydrOXYzine HydrOXYzine Yes Meghana 1 tablet Common HCl HCl 05-11 [place] as needed Spirit 00:00: - CHI 00 [facility] Ozempic Ozempic 2020- No Meghana 0.5 mg Com mon 05-11 0824 [place] Spirit 00:00: 00:00 - CHI 00 :00 [facility] Rae Mcbride Yes Meghana as Common 1-02 [place] directed Spirit 00:00: - CHI 00 [facility] ProAir ProAir Yes Meghana 2 puffs as Comm on RespiClick RespiClick [place] needed [facility] [place] 3 [place] 3 Yes Meghana 1 capsule Com mon [place] [facility] Montelukast Montelukast Yes Meghana 1 tablet Common Sodium Sodium [place] in the [facility] evening [facility] Lipitor Lipitor Yes Meghana 1 tablet Comm on [place] [facility] Losartan Losartan Yes Meghana 1 tablet Co mmon Potassium Potassium [place] Spir it [facility] Metoprolol Metoprolol Yes Meghana 1 tablet Common Tartrate Tartrate [place] with food S pirit [facility] Metformin Metformin Yes Meghana 1 tablet Common HCl HCl [place] with a Spirit meal [facility] Immunizations Ordered Immunization Filled Immunization Date Status Commen ts Source Name Name FLUZONE HIGH DOSE FLUZONE HIGH DOSE 2019-09-14 Completed Common Spirit OVER 65 OVER 65 00:00:00 [facility] Vital Signs Vital Name Observation Time Observation Value Comments Source Systolic blood 2022-07-28 01:43:00 99 mm[Hg] Univer sity of pressure [facility] Diastolic blood 2022-07-28 01:43:00 58 mm[Hg] [facility] 2022-07-28 01:40:00 97 /min [facility] Body temperature 2022-07-28 01:40:00 36.56 Melvi [facility] Res[facility] rate 2022-07-28 01:40:00 18 /min [facility] Oxygen saturation in 2022-07-28 01:40:00 90 /min [facility] Arterial blood by [facility] Pulse oximetry Branch Body height 2022-07-26 17:49:00 172.7 cm [facility] Body weight 2022-07-26 17:49:00 96.163 kg [facility] BMI 2022-07-26 17:49:00 32.23 kg/m2 [facility] Systolic blood 2022-07-26 23:31:00 102 mm[Hg] Univer sity of pressure [facility] Diastolic blood 2022-07-26 23:31:00 59 mm[Hg] Unive rsity of [facility] Heart rate 2022-07-26 23:31:00 85 /min [facility] Body temperature 2022-07-26 23:31:00 36.56 Melvi [facility] Respiratory rate 2022-07-26 23:24:00 19 /min [facility] Oxygen saturation in 2022-07-26 23:24:00 93 /min [facility] Arterial blood by [facility] Pulse oximetry [place] Body height 2022-07-26 17:49:00 172.7 cm [facility] Body weight 2022-07-26 17:49:00 96.163 kg [facility] BMI 2022-07-26 17:49:00 32.23 kg/m2 [facility] Procedures Procedure Date / Time Performing Clinician Source Performed POCT GLUCOSE (AUTOMATED) 2022-07-27 16:45:00 Berna Alcantar [facility] POCT GLUCOSE (AUTOMATED) 2022-07-27 16:45:00 Berna Alcantar [facility] MAGNESIUM 2022-07-27 10:46:00 Colt Foxssica [facility] BASIC METABOLIC PANEL (NA, 2022-07-27 10:46:00 Flora Fox [facility] K, CL, CO2, GLUCOSE, BUN, Medica l Branch CREATININE, CA) N-TERMINAL PRO-BNP 2022-07-27 10:46:00 [facility] 2022-07-27 10:46[facility] (NA, 2022-07-27 10:46:00 [facility], [facility], CO2, GLUCOSE, BUN, Medica l Branch CREATININE, CA) N-TERMINAL PRO-BNP 2022-07-27 10:46:00 Flora Fox of [facility] POCT GLUCOSE (AUTOMATED) 2022-07-27 10:38:00 Keo Alcantarm Uni versity of [facility] POCT GLUCOSE (AUTOMATED) 2022-07-27 10:38:00 KhbettyfeKeom Uni versity of [facility] POCT GLUCOSE (AUTOMATED) 2022-07-27 04:51:00 KhbettyfeKeom Uni versity of [facility] POCT GLUCOSE (AUTOMATED) 2022-07-27 04:51:00 Keo Alcantarm Uni versity of [facility] POCT GLUCOSE (AUTOMATED) 2022-07-27 01:10:00 Keo Alcantarm Uni versity of [facility] POCT GLUCOSE (AUTOMATED) 2022-07-27 01:10:00 KhbettyfeDavidsam Uni versity of [facility] POCT GLUCOSE (AUTOMATED) 2022-07-26 23:37:00 Keo Alcantarm Uni versity of [facility] POCT GLUCOSE (AUTOMATED) 2022-07-26 23:37:00 Keo Alcantarm Uni versity of [facility] ACTIVATED PARTIAL THRMPLAS 2022-07-26 23:10:00 [facility] ACTIVATED PARTIAL THRMPLAS 2022-07-26 23:10:00 [facility] CARDIAC CATHETERIZATION 2022-07-26 21:16:04 [facility] ersity of [facility] CARDIAC CATHETERIZATION 2022-07-26 21:16:04 [facility] ersity of [facility] CARDIAC CATHETERIZATION 2022-07-26 21:16:04 [facility] ersity of [facility] CARDIAC CATHETERIZATION 2022-07-26 21:16:04 [facility] CARDIAC CATHETERIZATION 2022-07-26 21:16:04 [facility] ersity of [facility] CARDIAC CATHETERIZATION 2022-07-26 21:16:04 [facility] ersity of [facility] CARDIAC CATHETERIZATION 2022-07-26 21:16:04 [facility] ersity of [facility] CARDIAC CATHETERIZATION 2022-07-26 21:16:04 [facility] ersity of [facility] CATH PROCEDURE LOG 2022-07-26 20:55:04 Sherman [facility] of [facility] CATH PROCEDURE LOG 2022-07-26 20:55:04 [facility] of [facility] POCT GLUCOSE (AUTOMATED) 2022-07-26 16:20:00 Berna Alcantar Uni versity of [facility] POCT GLUCOSE (AUTOMATED) 2022-07-26 16:20:00 Berna Alcantar Uni versity of [facility] POCT GLUCOSE (AUTOMATED) 2022-07-26 12:30:00 Berna Alcantar Uni versity of [facility] POCT GLUCOSE (AUTOMATED) 2022-07-26 12:30:00 Berna Alcantar Uni versity of [facility] POCT GLUCOSE (AUTOMATED) 2022-07-26 11:08:00 Berna Alcantar Uni versity of [facility] POCT GLUCOSE (AUTOMATED) 2022-07-26 11:08:00 Berna Alcantar Uni versity of [facility] POCT GLUCOSE (AUTOMATED) 2022-07-26 08:52:00 Berna Alcantar Uni versity of [facility] POCT GLUCOSE (AUTOMATED) 2022-07-26 08:52:00 Berna Alcantar Uni versity of [facility] MAGNESIUM 2022-07-26 05:35:00 [facility] BASIC MET[facility]OLIC PANEL (NA, 2022-07-26 05:35:00 Tob[facility] K, CL, CO2, GLUCOSE, BUN, Medica l Branch CREATININE, CA) ACTIVATED PARTIAL THRMPLAS 2022-07-26 05:35:00 Evelio Soni [facility] EXTRA TUBE LAV 2022-07-26 05:35:00 [facility] MAGNESIUM 2022-07-26 05:35:00 Tob[facility] BASIC METABOLIC PANEL (NA, 2022-07-26 05:35:00 Tobias [facility] K, CL, CO2, GLUCOSE, BUN, Medica l Branch CREATININE, CA) ACTIVATED PARTIAL THRMPLAS 2022-07-26 05:35:00 Evelio Soni [facility] EXTRA TUBE LAV 2022-07-26 05:35:00 [facility] POCT GLUCOSE (AUTOMATED) 2022-07-26 05:20:00 Berna [facility]cantar [facility]OM[facility]) 2022-07-26 05:20:00 [facility] PO[facility] GLU[facility]SE (AUTOMATED) 2022-07-26 01:45:00 [facility] PO[facility] GLU[facility]SE (AUTOMATED) 2022-07-26 01:45:00 [facility] MAG[facility] 2022-07-25 22:15:00 Tob[facility] BASIC METABOLIC PANEL (NA, 2022-07-25 22:15:00 Tob[facility] K, CL, CO2, GLUCOSE, BUN, Medica l Branch CREATININE, CA) ACTIVATED PARTIAL THRMPLAS 2022-07-25 22:15:00 Evelio Soni [facility] MAGNESIUM 2022-07-25 22:15:00 Tob[facility] BASIC METABOLIC PANEL (NA, 2022-07-25 22:15:00 Tob[facility] K, CL, CO2, GLUCOSE, BUN, Medica l Branch CREATININE, CA) ACTIVATED PARTIAL THRMPLAS 2022-07-25 22:15:00 Evelio Soni niversalberto [facility] POCT GLUCOSE (AUTOMATED) 2022-07-25 21:22:00 Berna Alcantar Uni versity of [facility] POCT GLUCOSE (AUTOMATED) 2022-07-25 21:22:00 Berna Alcantar Uni versity of [facility] POCT GLUCOSE (AUTOMATED) 2022-07-25 20:46:00 Berna Alcantar Uni versity of [facility] POCT GLUCOSE (AUTOMATED) 2022-07-25 20:46:00 Berna Alcantar Uni versity of [facility] POCT GLUCOSE (AUTOMATED) 2022-07-25 17:09:00 Berna Alcantar Uni versity of [facility] POCT GLUCOSE (AUTOMATED) 2022-07-25 17:09:00 Berna Alcantar Uni versity of [facility] HB ECG ROUTINE & RHYTHM 2022-07-25 14:53:13 Berna Collado Uni versity of [facility] ACTIVATED PARTIAL THRMPLAS 2022-07-25 14:53:00 [facility] PARTIAL THRMPLAS 2022-07-25 14:53:00 Evelio Soni niversalberto [facility] POCT GLUCOSE (AUTOMATED) 2022-07-25 13:12:00 Berna Alcantar Uni versity of [facility] POCT GLUCOSE (AUTOMATED) 2022-07-25 13:12:00 Berna Alcantar Uni versity of [facility] MAGNESIUM 2022-07-25 11:36:00 Tob[facility] BASIC METABOLIC PANEL (NA, 2022-07-25 11:36:00 Tobias [facility] K, CL, CO2, GLUCOSE, BUN, Medica l Branch CREATININE, CA) CBC WITH DIFF 2022-07-25 11:36:00 Tobias [facility] MAGNESIUM 2022-07-25 11:36:00 [facility]ias [facility] BASIC METABOLIC PANEL (NA, 2022-07-25 11:36:00 Tobias [facility] K, CL, CO2, GLUCOSE, BUN, Medica l Branch CREATININE, CA) CBC WITH DIFF 2022-07-25 11:36:00 [facility] ACTIVATED PARTIAL THRMPLAS 2022-07-25 05:15:00 Evelio Soni [facility] ACTIVATED PARTIAL THRMPLAS 2022-07-25 05:15:00 [facility]ATED) 2022-07-25 01:58:00 Berna Alcantar [facility] POCT GLUCOSE (AUTOMATED) 2022-07-25 01:58:00 Berna Alcantar [facility] MAGNESIUM 2022-07-24 22:34:00 [facility] BASIC METABOLIC PANEL (NA, 2022-07-24 22:34:00 Tobias [facility] K, CL, CO2, GLUCOSE, BUN, Medica l Branch CREATININE, CA) ACTIVATED PARTIAL THRMPLAS 2022-07-24 22:34:00 Evelio Soni [facility] MAGNESIUM 2022-07-24 22:34:00 [facility] BASIC METABOLIC PANEL (NA, 2022-07-24 22:34:00 Tob[facility] K, CL, CO2, GLUCOSE, BUN, Medica l Branch CREATININE, CA) ACTIVATED PARTIAL THRMPLAS 2022-07-24 22:34:00 Evelio Soni [facility] POCT GLUCOSE (AUTOMATED) 2022-07-24 20:43:00 Berna Alcantar [facility] POCT GLUCOSE (AUTOMATED) 2022-07-24 20:43:00 Berna Alcantar [facility] POCT GLUCOSE (AUTOMATED) 2022-07-24 17:11:00 Berna Alcantar [facility] POCT GLUCOSE (AUTOMATED) 2022-07-24 17:11:00 Berna Alcantar [facility] POCT GLUCOSE (AUTOMATED) 2022-07-24 14:11:00 Berna Alcantar [facility] POCT GLUCOSE (AUTOMATED) 2022-07-24 14:11:00 Berna Alcantar [facility] ACTIVATED PARTIAL THRMPLAS 2022-07-24 11:37:00 [facility] ACTIVATED PARTIAL THRMPLAS 2022-07-24 11:37:00 [facility] 2022-07-24 05:51:[address] [facility] BASIC METABOLIC PANEL (NA, 2022-07-24 05:51:00 [facility], CO2, GLUCOSE, BUN, Medica l Branch CREATININE, CA) PROTHROMBIN TIME / INR 2022-07-24 05:51:00 Evelio Soni [facility] ACTIVATED PARTIAL THRMPLAS 2022-07-24 05:51:00 Evelio Soni [facility] MAGNESIUM 2022-07-24 05:51:[address] [facility] BASIC METABOLIC PANEL (NA, 2022-07-24 05:51:00 [facility], [facility], CO2, GLUCOSE, BUN, Medica l Branch CREATININE, CA) PROTHROMBIN TIME / INR 2022-07-24 05:51:00 Evelio Soni [facility] ACTIVATED PARTIAL THRMPLAS 2022-07-24 05:51:00 Evelio Soni [facility] POCT GLUCOSE (AUTOMATED) 2022-07-24 01:53:00 Atul Stephens Rafaela [facility] POCT GLUCOSE (AUTOMATED) 2022-07-24 01:53:00 Atul Stephens Rafaela [facility] POCT GLUCOSE (AUTOMATED) 2022-07-23 21:31:00 Atul Stephens Rafaela [facility] POCT GLUCOSE (AUTOMATED) 2022-07-23 21:31:00 Atul Stephens Rafaela [facility] POCT GLUCOSE (AUTOMATED) 2022-07-23 17:08:00 Atul Stephens [facility] ([facility]) 2022-07-23 17:08:00 Atul Stephens Rafaela [facility] POCT GLUCOSE (AUTOMATED) 2022-07-23 12:46:00 Atul Stephens Rafaela [facility] POCT GLUCOSE (AUTOMATED) 2022-07-23 12:46:00 Atul tSephens Rafaela [facility] MAGNESIUM 2022-07-23 09:15:00 [facility]OLIC PANEL (NA, 2022-07-23 09:15:00 [facility], CL, CO2, GLUCOSE, BUN, Medica l Branch CREATININE, CA) CBC WITH DIFF 2022-07-23 09:15:00 [facility] N-TERMINAL PRO-BNP 2022-07-23 09:15:00 George Vizcaino [facility] MAGNESIUM 2022-07-23 09:15:00 [facility] BASIC METABOLIC PANEL (NA, 2022-07-23 09:15:00 [facility] K, CL, CO2, GLUCOSE, BUN, Medica l Branch CREATININE, CA) CBC WITH DIFF 2022-07-23 09:15:00 [facility] N-TERMINAL PRO-BNP 2022-07-23 09:15:00 George Vizcaino [facility] POCT GLUCOSE (AUTOMATED) 2022-07-23 02:12:00 Atul Stephens Uni [facility] POCT GLUCOSE (AUTOMATED) 2022-07-23 02:12:00 Atul Stephens [facility] POCT GLUCOSE (AUTOMATED) 2022-07-22 21:12:00 Atul Stephens Rafaela [facility] POCT GLUCOSE (AUTOMATED) 2022-07-22 21:12:00 Atul Stephens [facility] POCT GLUCOSE (AUTOMATED) 2022-07-22 16:30:00 Atul Stephens Rafeala [facility] POCT GLUCOSE (AUTOMATED) 2022-07-22 16:30:00 Atul Stephens [facility] PO[facility] GLUCOSE (AUTOMATED) 2022-07-22 12:51:00 Atul Stephens [facility] POCT GLUCOSE (AUTOMATED) 2022-07-22 12:51:00 Atul Stephens [facility] PHOSPHORUS 2022-07-22 08:19:00 Atul Stephens [facility] MAGNESIUM 2022-07-22 08:19:00 Angelo [facility] HEPATIC FUNCTION PANEL 2022-07-22 08:19:00 Atul Stephens [facility] ([id number]) (ALB,T.PRO,BILI Medical Branch T,BU/BC,ALT,AST,ALK PHOS) BASIC METABOLIC PANEL (NA, 2022-07-22 08:19:00 Atul Stephens [facility] K, CL, CO2, GLUCOSE, BUN, Medica l Branch CREATININE, CA) CBC WITH DIFF 2022-07-22 08:19:00 [facility] 2022-07-22 08:19[facility] 2022-07-22 08:19:00 Atul Stephens [facility] MAGNESIUM 2022-07-22 08:19:00 Angelo [facility] HEPATIC FUNCTION PANEL 2022-07-22 08:19:00 Atul Stephens [facility] ([id number]) (ALB,T.PRO,BILI Medical Branch T,BU/BC,ALT,AST,ALK PHOS) BASIC METABOLIC PANEL (NA, 2022-07-22 08:19:00 Atul Stephens [facility] K, CL, CO2, GLUCOSE, BUN, Medica l Branch CREATININE, CA) CBC WITH DIFF 2022-07-22 08:19:00 Atul Stephens o f [facility] N-TERMINAL PRO-BNP 2022-07-22 08:19:00 [facility]SE (AUTOMATED) 2022-07-22 01:44:00 Atul Stephens versalberto of [facility] POCT GLUCOSE (AUTOMATED) 2022-07-22 01:44:00 Atul Stephens versalberto of [facility] POCT GLUCOSE (AUTOMATED) 2022-07-21 21:52:00 Atul Stephens of [facility] POCT GLUCOSE (AUTOMATED) 2022-07-21 21:52:00 Atul Stephens versity of [facility] POCT GLUCOSE (AUTOMATED) 2022-07-21 16:43:00 Atul Stephens versalberto of [facility] POCT GLUCOSE (AUTOMATED) 2022-07-21 16:43:00 Atul [facility] TRANSTHORACIC ECHO (TTE) 2022-07-21 15:28:00 Atul Stephens [facility] W/ CONTRAST Medical [facility] TRANSTHORACIC ECHO (TTE) 2022-07-21 15:28:00 Atul Stephens [facility] W/ CONTRAST [facility] POCT GLUCOSE (AUTOMATED) 2022-07-21 15:00:00 Atul Stephens versalberto of [facility] POCT GLUCOSE (AUTOMATED) 2022-07-21 15:00:00 Atul Stephens versity of [facility] POCT GLUCOSE (AUTOMATED) 2022-07-21 13:04:00 Atul Stephens versalberto of [facility] POCT GLUCOSE (AUTOMATED) 2022-07-21 13:04:00 Atul Stephens [facility] MAG[facility]UM 2022-07-21 09:41:00 Atul Stephens [facility] TROPONIN I 2022-07-21 09:41:00 Atul Stephens [facility] BASIC METABOLIC PANEL (NA, 2022-07-21 09:41:00 Atul Stephens [facility] K, CL, CO2, GLUCOSE, BUN, Medica l Branch CREATININE, CA) LIPID PANEL ([id number])(TOTAL 2022-07-21 09:41:00 Ana Luisa Grimm [facility] TRIGLYCERIDES, HDL) CBC WITH DIFF 2022-07-21 09:41:00 Angelo [facility] N-TERMINAL PRO-BNP 2022-07-21 09:41:00 Atul Stephens [facility] MAGNESIUM 2022-07-21 09:41:00 Angelo [facility] TROPONIN I 2022-07-21 09:41:00 Atul Stephens [facility] BASIC METABOLIC PANEL (NA, 2022-07-21 09:41:00 Atul Stephens [facility] K, CL, CO2, GLUCOSE, BUN, Medica l Branch CREATININE, CA) LIPID PANEL (87650)(TOTAL 2022-07-21 09:41:00 Ana Luisa Grimm [facility] CHOLESTEROL, Medical [place] TRIGLYCERIDES, HDL) CBC WITH DIFF 2022-07-21 09:41:00 Atul Stephens [facility] N-TERMINAL PRO-BNP 2022-07-21 09:41:00 Atul Stephens [facility] POCT GLUCOSE (AUTOMATED) 2022-07-21 04:09:00 Atul Stephens [facility] POCT GLUCOSE (AUTOMATED) 2022-07-21 04:09:00 Atul Stephens [facility] BLOOD CULTURE SCREEN 2022-07-21 01:45:00 Atul Stephens [facility] BLOOD CULTURE WORKUP 2022-07-21 01:45:00 Atul Stephens [facility] GRAM POSITIVE BLOOD 2022-07-21 01:45:00 Atul Stephens [facility] PATHOGENS DNA [facility] PROBE-AEROBIC BLOOD CULTURE SCREEN 2022-07-21 01:45:00 Atul Stephens [facility] BLOOD CULTURE WORKUP 2022-07-21 01:45:00 Atul Stephens [facility] GRAM POSITIVE BLOOD 2022-07-21 01:45:00 Atul Stephens [facility] PATHOGENS DNA [facility] PROBE-AEROBIC POCT GLUCOSE (AUTOMATED) 2022-07-21 01:26:00 Atul Stephens [facility] POCT GLUCOSE (AUTOMATED) 2022-07-21 01:26:00 Atul Stephens [facility] BLOOD CULTURE SCREEN 2022-07-20 23:43:00 Atul Stephens [facility] BLOOD CULTURE SCREEN 2022-07-20 23:43:00 Atul Stephens [facility] POCT GLUCOSE (AUTOMATED) 2022-07-20 22:24:00 Atul Stephens [facility] POCT GLUCOSE (AUTOMATED) 2022-07-20 22:24:00 Atul Stephens [facility] URINALYSIS 2022-07-20 17:41:00 Filomena [facility] URINALYSIS 2022-07-20 17:41:00 Filomena [facility] XR CHEST 1 VW 2022-07-20 16:16:00 Charlene Butt [facility] XR CHEST 1 VW 2022-07-20 16:16:00 Filomena [facility] TROPONIN I 2022-07-20 16:10:00 Filomena [facility] COMP. METABOLIC PANEL 2022-07-20 16:10:00 Charlene Butt [facility] ([id number]) [facility] CBC WITH DIFF 2022-07-20 16:10:00 Filomena [facility] GLYCOSYLATED HEMOGLOBIN 2022-07-20 16:10:00 Atul Stephens [facility] (A1C) Medical Branch PROTHROMBIN TIME / INR 2022-07-20 16:10:00 Charlene Butt [facility] ACTIVATED PARTIAL THRMPLAS 2022-07-20 16:10:00 Saniya Butt [facility] N-TERMINAL PRO-BNP 2022-07-20 16:10:00 Charlene Butt [facility] COVID-19 (ID NOW RAPID 2022-07-20 16:10:00 Charlene Butt [facility] TESTING) Medical Branch LAB ONLY COVID 2022-07-20 16:10:00 Charlene Butt [facility] TROPONIN I 2022-07-20 16:10:00 Charlene Butt [facility] COMP. METABOLIC PANEL 2022-07-20 16:10:00 Charlene Butt [facility] ([id number]) Medical Branch CBC WITH DIFF 2022-07-20 16:10:00 Charlene Butt [facility] GLYCOSYLATED HEMOGLOBIN 2022-07-20 16:10:00 Atul Stephens [facility] (A1C) Medical Branch PROTHROMBIN TIME / INR 2022-07-20 16:10:00 Charlene Butt [facility] ACTIVATED PARTIAL THRMPLAS 2022-07-20 16:10:00 [facility] N-TERMINAL PRO-BNP 2022-07-20 16:10:00 Charelne Butt [facility] COVID-19 (ID NOW RAPID 2022-07-20 16:10:00 Charlene Butt [facility] TEST[facility]) Medical Branch LAB ONLY COVID 2022-07-20 16:10:00 Charlene Butt [facility] INTERPRETATION [facility] Branch HB ECG ROUTINE & RHYTHM 2022-07-20 16:05:41 Charlene Butt [facility] HB ECG ROUTINE & RHYTHM 2022-07-20 16:05:41 Charlene Butt [facility] NOTICE OF PRIVACY 2022-07-20 15:52:39 Doctor Unassigned, [facility] [place] NOTICE OF PRIVACY 2022-07-20 15:52:39 Doctor Unassigned, [facility] HOSPITAL ADMISSION 2022-07-20 05:01:00 Doctor Unassigned, [facility] HOSPITAL ADMISSION 2022-07-20 05:01:00 Doctor Unassigned, [facility] [place] Encounters Start End Encounter Admission Attending Care Care Encounter Source Date/Time Date/Time Type Type Clinicians Facility Department ID 2022-09-03 Outpatient 3 [id number] [place] [id number] [facility] 08:24:57 [facility] [place] [facility] 2022-09-02 Outpatient 3 [id number] [facility] REF [id number] [facility] 14:07:05 [facility] [place] 2021-12-[address] [facility] [id number] Common 11:06:38 Meghana 0[address] [facility] 2022-08-15 2022-08-28 Inpatient 3 Julio ENCPL CRD [id number] [facility] 18:17:00 12:00:00 Jose [facility] [place] 2022-07-29 2022-07-29 Transition ARIANE FosterKhadar [id number] Univers 00:00:00 00:00:00 of Care La [place] [id number] it y of [place] [id number] [facility] 403 Branch 2022-07-20 2022-07-27 Hospital Charlene Butt 1.2.84 [id number] [id number] Univers 11:00:00 21:45:00 Encounter Atul Stephens [id number] [facility] 4.2.7.2 .686 [place] [id number] [facility] 089 Branch 2022-07-20 2022-07-27 Inpatient X [facility] [id number] Univers 11:00:00 21:45:00 [facility] 2022-07-26 2022-07-26 Surgery JAMAL Cannon [id number] Univers 18:03:00 21:03:00 Orlando GORDON [id number] it y [facility] 4.2.7.2.686 Jonathan as [id number] [facility] 840 Branch 2020-04-04 2020-04-04 [facility] [id number] Common 13:00:00 13:00:[address] [facility] 2020-03-22 2020-03-22 [facility] [id number] Common 15:20:00 15:20:[address] [facility] 2019-12-22 2019-12-22 [facility] [id number] Common 10:40:00 10:40:[address] [facility] 2019-12-15 2019-12-15 [facility] [id number] Common 14:00:00 14:00:[address] [facility] 2019-09-14 2019-09-14 [facility] [id number] Common 13:20:00 13:20:[address] [facility] 2019-05-11 2019-05-11 [facility] [id number] Common 13:00:00 13:00:[address] [facility] 2018-11-11 2018-11-11 [facility] [id number] Common 13:00:00 13:00:[address] [facility] 2018-10-19 2018-10-19 [facility] [id number] Common 08:30:00 08:30:[address] [facility] 2018-04-22 2018-04-22 [facility] [id number] Common 14:00:00 14:00:[address] [facility] [address] [facility] Results Test Description Test Time Test Comments Results Result Comments Source POCT GLUCOSE (AUTOMATED) 2022-07-27 17:05:15 Test Item Value Reference Range Interpretation Comme nts POCT GLU (test code = 5000461621) 264 mg/dL 70-110 H Lab Interpretation (test code = 75517-2) [facility] 17:05:15 Test Item Value Reference Range Interpretation Comments POCT GLU (test code = 4915031363) 264 mg/dL 70-110 H Lab Interpretation (test code = Abnormal 51819-6) [facility] [id number] 15:17:32 Test Item Value Reference Range Interpretation Comments NT-proBNP (test code 1090 pg/mL See_Comment H [Autom ated = 4495376078) message] The system which generated this result transmitted reference range : <=125. The reference range was not used to interpret this result as normal/abnormal . ROSLYN (test code = ROSLYN) Biotin has been reported to cause a negative bias, interpret results relative to patient's use of biotin. Lab Interpretation Abnormal (test code = 55829-1) [facility] [id number] 15:17:32 Test Item Value Reference Range Interpretation Comments NT-proBNP (test code 1090 pg/mL See_Comment H [Autom ated = 1046563557) message] The system which generated this result transmitted reference range : <=125. The reference range was not used to interpret this result as normal/abnormal . ROSLYN (test code = ROSLYN) Biotin has been reported to cause a negative bias, interpret results relative to patient's use of biotin. Lab Interpretation Abnormal (test code = 72055-3) [facility]2022-[facility]-17 11:45:45 Test Item Value Reference Range Interpretation Comments MAGNESIUM (test code = 2423024936) 1.9 mg/dL 1.7-2.4 Lab Interpretation (test code = Normal 51338-2) [facility] (NA, K, CL, CO2, GLUCOSE, BUN, CREATININE, CA)2022-07-27 11:45:45 Test Item Value Reference Range Interpretation Comments NA (test code = 130 mmol/L 135-145 L 6624672453) K (test code = 4.1 mmol/L 3.5-5 4114628256) CL (test code = 89 mmol/L 98-108 L 7446861203) CO2 TOTAL (test code = 37 mmol/L 23-31 H 2550362926) AGAP (test code = 2-16 9102578388) BUN (test code = 32 mg/dL 7-23 H 9328817229) GLUCOSE (test code = 180 mg/dL 70-110 H 3440493890) CREATININE (test code = 0.81 mg/dL 0.6-1.25 6493650524) CALCIUM (test code = 8.5 mg/dL 8.6-10.6 L 0711102773) eGFR (test code = mL/min/1.73m2 8084093009) ROSLYN (test code = ROSLYN) Association of [...] tests). Lab Interpretation Abnormal (test code = 57197-0) [facility]20[facility]-17 11:45:45 Test Item Value Reference Range Interpretation Comments MAGNESIUM (test code = 0196555348) 1.9 mg/dL 1.7-2.4 Lab Interpretation (test code = Normal 55221-3) [facility] (NA, K, CL, CO2, GLUCOSE, BUN, CREATININE, CA)2022-07-27 11:45:45 Test Item Value Reference Range Interpretation Comments NA (test code = 130 mmol/L 135-145 L 4890055365) K (test code = 4.1 mmol/L 3.5-5 6007629226) CL (test code = 89 mmol/L 98-108 L 2922700371) CO2 TOTAL (test code = 37 mmol/L 23-31 H 3992097988) AGAP (test code = 2-16 7990256799) BUN (test code = 32 mg/dL 7-23 H 2220005289) GLUCOSE (test code = 180 mg/dL 70-110 H 2863834466) CREATININE (test code = 0.81 mg/dL 0.6-1.25 6142146865) CALCIUM (test code = 8.5 mg/dL 8.6-10.6 L 8223423768) eGFR (test code = mL/min/1.73m2 8605369583) ROSLYN (test code = ROSLYN) Association of [...] tests). Lab Interpretation Abnormal (test code = 44820-4) [facility] GLUCOSE (AUTOMATED)2022-07-27 10:39:46 Test Item Value Reference Range Interpretation Comments POCT GLU (test code = 6291301970) 198 mg/dL 70-110 H Lab Interpretation (test code = Abnormal 14588-8) [facility] GLUCOSE (AUTOMATED)2022-07-27 10:39:46 Test Item Value Reference Range Interpretation Comments POCT GLU (test code = 7373098239) 198 mg/dL 70-110 H Lab Interpretation (test code = Abnormal 19337-6) [facility] GLUCOSE (AUTOMATED)2022-07-27 04:52:50 Test Item Value Reference Range Interpretation Comments POCT GLU (test code = 5557760472) 213 mg/dL 70-110 H Lab Interpretation (test code = Abnormal 95418-4) [facility] GLUCOSE (AUTOMATED)2022-07-27 04:52:50 Test Item Value Reference Range Interpretation Comments POCT GLU (test code = 2224588039) 213 mg/dL 70-110 H Lab Interpretation (test code = Abnormal 37679-7) [facility] GLUCOSE (AUTOMATED)2022-07-27 01:10:58 Test Item Value Reference Range Interpretation Comments POCT GLU (test code = 1594632509) 284 mg/dL 70-110 H Lab Interpretation (test code = Abnormal 74516-7) [facility] GLUCOSE (AUTOMATED)2022-07-27 01:10:58 Test Item Value Reference Range Interpretation Comments POCT GLU (test code = 6226236349) 284 mg/dL 70-110 H Lab Interpretation (test code = Abnormal 44762-1) [facility] GLUCOSE (AUTOMATED)2022-07-26 23:39:10 Test Item Value Reference Range Interpretation Comments POCT GLU (test code = 5393420319) 199 mg/dL 70-110 H Lab Interpretation (test code = Abnormal 07719-3) [facility] GLUCOSE (AUTOMATED)2022-07-26 23:39:10 Test Item Value Reference Range Interpretation Comments POCT GLU (test code = 2965510669) 199 mg/dL 70-110 H Lab Interpretation (test code = Abnormal 52707-6) [facility]for use with Heparin Infusion)2022-07-26 23:32:33 Test Item Value Reference Range Interpretation Comments APTT Patient (test code = See_Comment [ Automated message] 3173-2) The system [employer] generated this result transmitted ref erence range: 26 - 36 Seconds. The re ference range was not u sed to interpret this result as normal/abnor mal. Lab Interpretation (test Normal code = 21600-4) [facility]for use with [facility]arin Infusion)2022-07-26 23:32:33 Test Item Value Reference Range Interpretation Comments APTT Patient (test code = See_Comment [ Automated message] 3173-2) The system [employer] generated this result transmitted ref erence range: 26 - 36 Seconds. The re ference range was not u sed to interpret this result as normal/abnor mal. Lab Interpretation (test Normal code = 83839-2) [facility] GLUCOSE (AUTOMATED)2022-07-26 16:22:25 Test Item Value Reference Range Interpretation Comments POCT GLU (test code = 2114896507) 167 mg/dL 70-110 H Lab Interpretation (test code = Abnormal 17536-0) [facility] GLUCOSE (AUTOMATED)2022-07-26 16:22:25 Test Item Value Reference Range Interpretation Comments POCT GLU (test code = 6758427755) 167 mg/dL 70-110 H Lab Interpretation (test code = Abnormal 19725-8) [facility] GLUCOSE (AUTOMATED)2022-07-26 12:31:04 Test Item Value Reference Range Interpretation Comments POCT GLU (test code = 4295700284) 164 mg/dL 70-110 H Lab Interpretation (test code = Abnormal 78880-3) [facility] GLUCOSE (AUTOMATED)2022-07-26 12:31:04 Test Item Value Reference Range Interpretation Comments POCT GLU (test code = 3917435110) 164 mg/dL 70-110 H Lab Interpretation (test code = Abnormal 51039-5) [facility] GLUCOSE (AUTOMATED)2022-07-26 11:09:37 Test Item Value Reference Range Interpretation Comments POCT GLU (test code = 7939563794) 184 mg/dL 70-110 H Lab Interpretation (test code = Abnormal 47873-1) [facility] GLUCOSE (AUTOMATED)2022-07-26 11:09:37 Test Item Value Reference Range Interpretation Comments POCT GLU (test code = 7101987777) 184 mg/dL 70-110 H Lab Interpretation (test code = Abnormal 11595-9) [facility] GLUCOSE (AUTOMATED)2022-07-26 08:53:59 Test Item Value Reference Range Interpretation Comments POCT GLU (test code = 5926701051) 200 mg/dL 70-110 H Lab Interpretation (test code = Abnormal 08961-9) [facility] GLUCOSE (AUTOMATED)2022-07-26 08:53:59 Test Item Value Reference Range Interpretation Comments POCT GLU (test code = 3605006791) 200 mg/dL 70-110 H Lab Interpretation (test code = Abnormal 40086-7) [facility] GLUCOSE (AUTOMATED)2022-07-26 05:20:56 Test Item Value Reference Range Interpretation Comments POCT GLU (test code = 0493387794) 197 mg/dL 70-110 H Lab Interpretation (test code = Abnormal 77519-6) [facility] GLUCOSE (AUTOMATED)2022-07-26 05:20:56 Test Item Value Reference Range Interpretation Comments POCT GLU (test code = 7455052761) 197 mg/dL 70-110 H Lab Interpretation (test code = Abnormal 77977-8) [facility] [id number] 03:01:42 Test Item Value Reference Range Interpretation Comments Blood Culture-Aerobic No organisms No growth Previo us (test code = 44402-3) isolated prelim inary verified result was Culture [...] Culture-Anaerobic isolated preliminar y (test code = 04417-7) verifi ed result was Culture In Progress [...] CDT Lab Interpretation Normal (test code = 66418-3) [facility] CULTURE [id number] 03:01:42 Test Item Value Reference Range Interpretation Comments Blood Culture-Aerobic No organisms No growth Previo us (test code = 56371-3) isolated prelim inary verified result was Culture [...] Culture-Anaerobic isolated preliminar y (test code = 41784-2) verifi ed result was Culture In Progress [...] CDT Lab Interpretation Normal (test code = 23153-2) [facility] 01:46:28 Test Item Value Reference Range Interpretation Comments POCT GLU (test code = 4035139014) 142 mg/dL 70-110 H Lab Interpretation (test code = Abnormal 14932-3) [facility] GLUCOSE (AUTOMATED)2022-07-26 01:46:28 Test Item Value Reference Range Interpretation Comments POCT GLU (test code = 3169214590) 142 mg/dL 70-110 H Lab Interpretation (test code = Abnormal 82862-9) [facility] GLUCOSE (AUTOMATED)2022-07-25 21:23:27 Test Item Value Reference Range Interpretation Comments POCT GLU (test code = 2033795501) 159 mg/dL 70-110 H Lab Interpretation (test code = Abnormal 38713-6) [facility] GLUCOSE (AUTOMATED)2022-07-25 21:23:27 Test Item Value Reference Range Interpretation Comments POCT GLU (test code = 4165393820) 159 mg/dL 70-110 H Lab Interpretation (test code = Abnormal 85409-7) [facility] GLUCOSE (AUTOMATED)2022-07-25 20:47:32 Test Item Value Reference Range Interpretation Comments POCT GLU (test code = 1556668224) 151 mg/dL 70-110 H Lab Interpretation (test code = Abnormal 75409-9) [facility] GLUCOSE (AUTOMATED)2022-07-25 20:47:32 Test Item Value Reference Range Interpretation Comments POCT GLU (test code = 9686015857) 151 mg/dL 70-110 H Lab Interpretation (test code = Abnormal 95094-6) [facility] GLUCOSE (AUTOMATED)2022-07-25 17:16:01 Test Item Value Reference Range Interpretation Comments POCT GLU (test code = 1266504908) 389 mg/dL 70-110 H Lab Interpretation (test code = Abnormal 30782-2) [facility] GLUCOSE (AUTOMATED)2022-07-25 17:16:01 Test Item Value Reference Range Interpretation Comments POCT GLU (test code = 3581718708) 389 mg/dL 70-110 H Lab Interpretation (test code = Abnormal 80255-0) [facility]2022-07-25 15:08:51 Test Item Value Reference Range Interpretation Comments APTT Patient (test code = See_Comment [ Automated message] 3173-2) The system [employer] generated this result transmitted ref erence range: 26 - 36 Seconds. The re ference range was not u sed to interpret this result as normal/abnor mal. Lab Interpretation (test Normal code = 87292-9) [facility]2022-07-25 15:08:51 Test Item Value Reference Range Interpretation Comments APTT Patient (test code = See_Comment [ Automated message] 3173-2) The system [employer] generated this result transmitted ref erence range: 26 - 36 Seconds. The re ference range was not u sed to interpret this result as normal/abnor mal. Lab Interpretation (test Normal code = 91220-8) [facility] GLUCOSE (AUTOMATED)2022-07-25 13:22:34 Test Item Value Reference Range Interpretation Comments POCT GLU (test code = 2635901168) 168 mg/dL 70-110 H Lab Interpretation (test code = Abnormal 79686-6) [facility] GLUCOSE (AUTOMATED)2022-07-25 13:22:34 Test Item Value Reference Range Interpretation Comments POCT GLU (test code = 8911009422) 168 mg/dL 70-110 H Lab Interpretation (test code = Abnormal 13279-0) [facility] GLUCOSE (AUTOMATED)2022-07-25 01:59:34 Test Item Value Reference Range Interpretation Comments POCT GLU (test code = 4946911262) 202 mg/dL 70-110 H Lab Interpretation (test code = Abnormal 87155-1) [facility] GLUCOSE (AUTOMATED)2022-07-25 01:59:34 Test Item Value Reference Range Interpretation Comments POCT GLU (test code = 8994557914) 202 mg/dL 70-110 H Lab Interpretation (test code = Abnormal 76210-3) [facility] METABOLIC PANEL (NA, K, CL, CO2, GLUCOSE, BUN, CREATININE, CA)2022-07-24 23:06:12 Test Item Value Reference Range Interpretation Comments NA (test code = 135 mmol/L 135-145 5742680246) K (test code = 4.1 mmol/L 3.5-5 8728101402) CL (test code = 95 mmol/L 98-108 L 5937599852) CO2 TOTAL (test code = 39 mmol/L 23-31 H 4493081152) AGAP (test code = 2-16 L 7074639366) BUN (test code = 16 mg/dL 7-23 2028122246) GLUCOSE (test code = 140 mg/dL 70-110 H 4594434368) CREATININE (test code = 0.59 mg/dL 0.6-1.25 L 1878375520) CALCIUM (test code = 8.4 mg/dL 8.6-10.6 L 1559226306) eGFR (test code = mL/min/1.73m2 0303458649) ROSLYN (test code = ROSLYN) Association of [...] tests). Lab Interpretation Abnormal (test code = 64501-9) [facility] Test Item Value Reference Range Interpretation Comments MAGNESIUM (test code = 1706201083) 2.1 mg/dL 1.7-2.4 Lab Interpretation (test code = Normal 54341-1) [facility] METABOLIC PANEL (NA, K, CL, CO2, GLUCOSE, BUN, CREATININE, CA)2022-07-24 23:06:12 Test Item Value Reference Range Interpretation Comments NA (test code = 135 mmol/L 135-145 9340010956) K (test code = 4.1 mmol/L 3.5-5 4917302061) CL (test code = 95 mmol/L 98-108 L 2733000793) CO2 TOTAL (test code = 39 mmol/L 23-31 H 4969622822) AGAP (test code = 2-16 L 9754469271) BUN (test code = 16 mg/dL 7-23 9451094242) GLUCOSE (test code = 140 mg/dL 70-110 H 2001311695) CREATININE (test code = 0.59 mg/dL 0.6-1.25 L 2813285475) CALCIUM (test code = 8.4 mg/dL 8.6-10.6 L 0976942284) eGFR (test code = mL/min/1.73m2 5425103163) ROSLYN (test code = ROSLYN) Association of [...] tests). Lab Interpretation Abnormal (test code = 87070-7) [facility] Test Item Value Reference Range Interpretation Comments MAGNESIUM (test code = 9518045340) 2.1 mg/dL 1.7-2.4 Lab Interpretation (test code = Normal 26240-3) [facility] (for use with Heparin Infusion)2022-07-24 23:00:29 Test Item Value Reference Range Interpretation Comments APTT Patient (test code See_Comment H [Au tomated message] = 3173-2) The system [employer] generated this result transmitted ref erence range: 26 - 36 Seconds. The reference range was not used to int erpret this result as normal/abnormal . Lab Interpretation (test Abnormal code = 43751-5) [facility] (for use with Heparin Infusion)2022-07-24 23:00:29 Test Item Value Reference Range Interpretation Comments APTT Patient (test code See_Comment H [Au tomated message] = 3173-2) The system [employer] generated this result transmitted ref erence range: 26 - 36 Seconds. The reference range was not used to int erpret this result as normal/abnormal . Lab Interpretation (test Abnormal code = 32005-4) [facility] GLUCOSE (AUTOMATED)2022-07-24 20:44:06 Test Item Value Reference Range Interpretation Comments POCT GLU (test code = 6663604303) 161 mg/dL 70-110 H Lab Interpretation (test code = Abnormal 89036-2) [facility] GLUCOSE (AUTOMATED)2022-07-24 20:44:06 Test Item Value Reference Range Interpretation Comments POCT GLU (test code = 9286261155) 161 mg/dL 70-110 H Lab Interpretation (test code = Abnormal 48116-0) [facility] GLUCOSE (AUTOMATED)2022-07-24 17:17:45 Test Item Value Reference Range Interpretation Comments POCT GLU (test code = 9517976758) 257 mg/dL 70-110 H Lab Interpretation (test code = Abnormal 84842-8) [facility] 17:17:45 Test Item Value Reference Range Interpretation Comments POCT GLU (test code = 0362977154) 257 mg/dL 70-110 H Lab Interpretation (test code = Abnormal 59278-1) [facility] GLUCOSE (AUTOMATED)2022-07-24 14:12:13 Test Item Value Reference Range Interpretation Comments POCT GLU (test code = 0852132221) 201 mg/dL 70-110 H Lab Interpretation (test code = Abnormal 00066-0) [facility] GLUCOSE (AUTOMATED)2022-07-24 14:12:13 Test Item Value Reference Range Interpretation Comments POCT GLU (test code = 2064752187) 201 mg/dL 70-110 H Lab Interpretation (test code = Abnormal 64664-8) [facility] GLUCOSE (AUTOMATED)2022-07-24 01:57:51 Test Item Value Reference Range Interpretation Comments POCT GLU (test code = 2738169535) 214 mg/dL 70-110 H Lab Interpretation (test code = Abnormal 81419-4) [facility] GLUCOSE (AUTOMATED)2022-07-24 01:57:51 Test Item Value Reference Range Interpretation Comments POCT GLU (test code = 5571824920) 214 mg/dL 70-110 H Lab Interpretation (test code = Abnormal 79962-4) [facility] GLUCOSE (AUTOMATED)2022-07-23 21:55:56 Test Item Value Reference Range Interpretation Comments POCT GLU (test code = 3106372903) 184 mg/dL 70-110 H Lab Interpretation (test code = Abnormal 85583-7) [facility] GLUCOSE (AUTOMATED)2022-07-23 21:55:56 Test Item Value Reference Range Interpretation Comments POCT GLU (test code = 8649967238) 184 mg/dL 70-110 H Lab Interpretation (test code = Abnormal 51823-2) [facility] GLUCOSE (AUTOMATED)2022-07-23 17:27:48 Test Item Value Reference Range Interpretation Comments POCT GLU (test code = 6166663776) 259 mg/dL 70-110 H Lab Interpretation (test code = Abnormal 07410-0) [facility] GLUCOSE (AUTOMATED)2022-07-23 17:27:48 Test Item Value Reference Range Interpretation Comments POCT GLU (test code = 5041932375) 259 mg/dL 70-110 H Lab Interpretation (test code = Abnormal 01586-3) [facility] GLUCOSE (AUTOMATED)2022-07-23 13:05:59 Test Item Value Reference Range Interpretation Comments POCT GLU (test code = 2605956337) 154 mg/dL 70-110 H Lab Interpretation (test code = Abnormal 41540-8) [facility] GLUCOSE (AUTOMATED)2022-07-23 13:05:59 Test Item Value Reference Range Interpretation Comments POCT GLU (test code = 6682938670) 154 mg/dL 70-110 H Lab Interpretation (test code = Abnormal 66632-1) [facility] GLUCOSE (AUTOMATED)2022-07-23 09:58:20 Test Item Value Reference Range Interpretation Comments POCT GLU (test code = 4903966652) 177 mg/dL 70-110 H Lab Interpretation (test code = Abnormal 03336-0) [facility] GLUCOSE (AUTOMATED)2022-07-23 09:58:20 Test Item Value Reference Range Interpretation Comments POCT GLU (test code = 5020487526) 177 mg/dL 70-110 H Lab Interpretation (test code = Abnormal 60697-9) [facility] GLUCOSE (AUTOMATED)2022-07-22 21:30:57 Test Item Value Reference Range Interpretation Comments POCT GLU (test code = 7962406634) 194 mg/dL 70-110 H Lab Interpretation (test code = Abnormal 67089-1) [facility] GLUCOSE (AUTOMATED)2022-07-22 21:30:57 Test Item Value Reference Range Interpretation Comments POCT GLU (test code = 0547700094) 194 mg/dL 70-110 H Lab Interpretation (test code = Abnormal 07239-5) [facility] GLUCOSE (AUTOMATED)2022-07-22 16:52:50 Test Item Value Reference Range Interpretation Comments POCT GLU (test code = 6441083356) 197 mg/dL 70-110 H Lab Interpretation (test code = Abnormal 21710-4) [facility] GLUCOSE (AUTOMATED)2022-07-22 16:52:50 Test Item Value Reference Range Interpretation Comments POCT GLU (test code = 6089488062) 197 mg/dL 70-110 H Lab Interpretation (test code = Abnormal 49539-6) [facility] GLUCOSE (AUTOMATED)2022-07-22 13:22:34 Test Item Value Reference Range Interpretation Comments POCT GLU (test code = 4837560337) 150 mg/dL 70-110 H Lab Interpretation (test code = Abnormal 16575-4) [facility] GLUCOSE (AUTOMATED)2022-07-22 13:22:34 Test Item Value Reference Range Interpretation Comments POCT GLU (test code = 4119649002) 150 mg/dL 70-110 H Lab Interpretation (test code = Abnormal 77389-7) [id number] 09:38:27 Test Item Value Reference Range Interpretation Comments NT-proBNP (test code 2160 pg/mL See_Comment H [Autom ated = 3207873589) message] The system which generated this result transmitted reference range : <=125. The reference range was not used to interpret this result as normal/abnormal . ROSLYN (test code = ROSLYN) Biotin has been reported to cause a negative bias, interpret results relative to patient's use of biotin. Lab Interpretation Abnormal (test code = 30515-8) [facility] [id number] 09:38:27 Test Item Value Reference Range Interpretation Comments NT-proBNP (test code 2160 pg/mL See_Comment H [Autom ated = 4380354541) message] The system which generated this result transmitted reference range : <=125. The reference range was not used to interpret this result as normal/abnormal . ROSLYN (test code = ROSLYN) Biotin has been reported to cause a negative bias, interpret results relative to patient's use of biotin. Lab Interpretation Abnormal (test code = 47528-4) [facility] Test Item Value Reference Range Interpretation Comments MAGNESIUM (test code = 4602233738) 1.8 mg/dL 1.7-2.4 Lab Interpretation (test code = Normal 19961-3) [facility] Test Item Value Reference Range Interpretation Comments MAGNESIUM (test code = 2373919534) 1.8 mg/dL 1.7-2.4 Lab Interpretation (test code = Normal 37964-9) [facility] METABOLIC PANEL (NA, K, CL, CO2, GLUCOSE, BUN, CREATININE, CA)2022-07-22 09:31:09 Test Item Value Reference Range Interpretation Comments NA (test code = 137 mmol/L 135-145 3020793161) K (test code = 4.0 mmol/L 3.5-5 9379388379) CL (test code = 98 mmol/L 98-108 6153067643) CO2 TOTAL (test code = 34 mmol/L 23-31 H 8678651390) AGAP (test code = 2-16 1440691600) BUN (test code = 16 mg/dL 7-23 1718029231) GLUCOSE (test code = 177 mg/dL 70-110 H 9876845038) CREATININE (test code = 0.66 mg/dL 0.6-1.25 3262154864) CALCIUM (test code = 8.2 mg/dL 8.6-10.6 L 3998247428) eGFR (test code = mL/min/1.73m2 8684791727) ROSLYN (test code = ROSLYN) Association of [...] tests). Lab Interpretation Abnormal (test code = 96826-7) [facility] METABOLIC PANEL (NA, K, CL, CO2, GLUCOSE, BUN, CREATININE, CA)2022-07-22 09:31:09 Test Item Value Reference Range Interpretation Comments NA (test code = 137 mmol/L 135-145 4090426113) K (test code = 4.0 mmol/L 3.5-5 7507896266) CL (test code = 98 mmol/L 98-108 0218292045) CO2 TOTAL (test code = 34 mmol/L 23-31 H 0202147095) AGAP (test code = 2-16 5679057750) BUN (test code = 16 mg/dL 7-23 5981123865) GLUCOSE (test code = 177 mg/dL 70-110 H 9008238210) CREATININE (test code = 0.66 mg/dL 0.6-1.25 7550982212) CALCIUM (test code = 8.2 mg/dL 8.6-10.6 L 3931118496) eGFR (test code = mL/min/1.73m2 8480362510) ROSLYN (test code = ROSLYN) Association of [...] tests). Lab Interpretation Abnormal (test code = 78017-3) [facility][id number][facility] (ALB,T.PRO,BILI T,BU/BC,ALT,AST,ALK PHOS)2022-07-22 09:30:44 Test Item Value Reference Range Interpretation Comments TOTAL BILI (test code = 8943332307) 1.2 mg/dL 0.1-1.1 H BILI UNCON (test code = 0570591971) 0.9 mg/dL 0.1-1.1 BILI CONJ (test code = 5670263295) 0.0 mg/dL 0-0.3 T PROTEIN (test code = 1366459002) 6.5 g/dL 6.3-8.2 ALBUMIN (test code = 4482724668) 3.7 g/dL 3.5-5 ALK PHOS (test code = 0202903041) 67 U/L 34-122 ALTv (test code = 1742-6) 33 U/L 5-50 AST(SGOT) (test code = 3756470189) 30 U/L 13-40 Lab Interpretation (test code = Abnormal 97575-3) [facility] 09:30:44 Test Item Value Reference Range Interpretation Comments PHOSPHORUS (test code = 6066926301) 3.6 mg/dL 2.5-5 Lab Interpretation (test code = Normal 92794-6) [facility] ([id number][facility] (ALB,T.PRO,BILI T,BU/BC,ALT,AST,ALK PHOS)2022-07-22 09:30:44 Test Item Value Reference Range Interpretation Comments TOTAL BILI (test code = 4812111608) 1.2 mg/dL 0.1-1.1 H BILI UNCON (test code = 9216436217) 0.9 mg/dL 0.1-1.1 BILI CONJ (test code = 9064801541) 0.0 mg/dL 0-0.3 T PROTEIN (test code = 8883193783) 6.5 g/dL 6.3-8.2 ALBUMIN (test code = 1243193589) 3.7 g/dL 3.5-5 ALK PHOS (test code = 9051012620) 67 U/L 34-122 ALTv (test code = 1742-6) 33 U/L 5-50 AST(SGOT) (test code = 8183821627) 30 U/L 13-40 Lab Interpretation (test code = Abnormal 38217-8) [facility] 09:30:44 Test Item Value Reference Range Interpretation Comments PHOSPHORUS (test code = 0881780348) 3.6 mg/dL 2.5-5 Lab Interpretation (test code = Normal 51176-8) [facility] WITH [id number] 09:23:08 Test Item Value Reference Range Interpretation Comments WBC (test code = See_Comment H [Automated 7347-2) message] The system which generated this result transmit artem reference range : 4.20 - 10.70 10*3/?L. The reference range was not used to interpret this result as normal/abnormal . RBC (test code = See_Comment [Automated 365-8) message] The system which generated this result [...] RDW-SD (test code = 46.6 fL 38.5-51.6 88049-5) RDW-CV (test code = 13.5 % 12.1-15.4 788-0) PLT (test code = See_Comment L [Automated 777-3) message] The system which generated this result transmit artem reference range : 150 - 328 10*3/ ?L. The reference range was not u sed to interpret th is result as normal/abnormal . MPV (test code = 12.7 fL 9.8-13 26836-7) NRBC/100 WBC (test See_Comment [Automat ed code = 6871411408) message] The system which generated this result transmit artem reference range : 0.0 - 10.0 /100 WBCs. The reference range was not used to interpret this result as normal/abnormal . NRBC x10^3 (test code See_Comment [Auto mated = 6280416882) message] The system which generated this result transmit artem reference range : 10*3/?L. The reference range was not used to interpret this result as normal/abnormal . GRAN MAT (NEUT) % 71.3 % (test code = 770-8) IMM GRAN % (test code 0.40 % = 0457452028) LYMPH % (test code = 17.4 % 736-9) MONO % (test code = 9.8 % 5905-5) EOS % (test code = 0.8 % 713-8) BASO % (test code = 0.3 % 706-2) GRAN MAT x10^3(ANC) 10.18 10*3/uL 1.99-6.95 H (test code = 4536208557) IMM GRAN x10^3 (test 0.06 10*3/uL 0-0.06 code = 1567896235) LYMPH x10^3 (test code 2.49 10*3/uL 1.09-3.23 = 731-0) MONO x10^3 (test code 1.40 10*3/uL 0.36-1.02 H = 742-7) EOS x10^3 (test code = 0.11 10*3/uL 0.06-0.53 711-2) BASO x10^3 (test code 0.04 10*3/uL 0.01-0.09 = 704-7) Lab Interpretation Abnormal (test code = 23169-9) [facility] WITH [id number] 09:23:08 Test Item Value Reference Range Interpretation [...] RDW-SD (test code = 46.6 fL 38.5-51.6 09021-0) RDW-CV (test code = 13.5 % 12.1-15.4 788-0) PLT (test code = See_Comment L [Automated 777-3) message] The system which generated this result transmit artem reference range : 150 - 328 10*3/ ?L. The reference range was not u sed to interpret th is result as normal/abnormal . MPV (test code = 12.7 fL 9.8-13 95957-0) NRBC/100 WBC (test See_Comment [Automat ed code = 2052053701) message] The system which generated this result transmit artem reference range : 0.0 - 10.0 /100 WBCs. The reference range was not used to interpret this result as normal/abnormal . NRBC x10^3 (test code See_Comment [Auto mated = 6533996427) message] The system which generated this result transmit artem reference range : 10*3/?L. The reference range was not used to interpret this result as normal/abnormal . GRAN MAT (NEUT) % 71.3 % (test code = 770-8) IMM GRAN % (test code 0.40 % = 7334696975) LYMPH % (test code = 17.4 % 736-9) MONO % (test code = 9.8 % 5905-5) EOS % (test code = 0.8 % 713-8) BASO % (test code = 0.3 % 706-2) GRAN MAT x10^3(ANC) 10.18 10*3/uL 1.99-6.95 H (test code = 6771132923) IMM GRAN x10^3 (test 0.06 10*3/uL 0-0.06 code = 2677376387) LYMPH x10^3 (test code 2.49 10*3/uL 1.09-3.23 = 731-0) MONO x10^3 (test code 1.40 10*3/uL 0.36-1.02 H = 742-7) EOS x10^3 (test code = 0.11 10*3/uL 0.06-0.53 711-2) BASO x10^3 (test code 0.04 10*3/uL 0.01-0.09 = 704-7) Lab Interpretation Abnormal (test code = 26476-2) [facility] GLUCOSE (AUTOMATED)2022-07-22 01:47:13 Test Item Value Reference Range Interpretation Comments POCT GLU (test code = 4181528599) 220 mg/dL 70-110 H Lab Interpretation (test code = Abnormal 90765-0) [facility] GLUCOSE (AUTOMATED)2022-07-22 01:47:13 Test Item Value Reference Range Interpretation Comments POCT GLU (test code = 1463717508) 220 mg/dL 70-110 H Lab Interpretation (test code = Abnormal 59699-2) [facility]41878[facility]TOTAL CHOLESTEROL, TRIGLYCERIDES, HDL)2022-07-22 00:19:28 Test Item Value Reference Range Interpretation Comments CHOL (test code = 121 mg/dL 120-200 4483939217) HDL (test code = 28 mg/dL See_Comment L [Automated message] 6600936188) The system [employer] generated this result transmit artem reference range : >=40. The refer ence range was not u sed to interpret th is result as normal/abnormal . HDLC RATIO (test code = See_Comment [Au tomated message] 8781205178) The system [employer] generated this result transmit artem reference range : <=5.0. The refe rence range was not u sed to interpret th is result as normal/abnormal . TRIG (test code = 119 mg/dL 30-170 4937127872) LDL CHOL (test code = 69 mg/dL See_Comment [Auto mated message] 82564-4) The system [employer] generated this result transmit artem reference range : <=160. The refe rence range was not u sed to interpret th is result as normal/abnormal . VLDL (test code = 24 mg/dL 5-60 3766886784) Lab Interpretation (test Abnormal code = 78841-5) [facility] (44659)(TOTAL CHOLESTEROL, TRIGLYCERIDES, HDL)2022-07-22 00:19:28 Test Item Value Reference Range Interpretation Comments CHOL (test code = 121 mg/dL 120-200 0816042794) HDL (test code = 28 mg/dL See_Comment L [Automated message] 2692249613) The system [employer] generated this result transmit artem reference range : >=40. The refer ence range was not u sed to interpret th is result as normal/abnormal . HDLC RATIO (test code = See_Comment [Au tomated message] 9594305816) The system [employer] generated this result transmit artem reference range : <=5.0. The refe rence range was not u sed to interpret th is result as normal/abnormal . TRIG (test code = 119 mg/dL 30-170 2770235650) LDL CHOL (test code = 69 mg/dL See_Comment [Auto mated message] 29512-0) The system [employer] generated this result transmit artem reference range : <=160. The refe rence range was not u sed to interpret th is result as normal/abnormal . VLDL (test code = 24 mg/dL 5-60 2122007413) Lab Interpretation (test Abnormal code = 50177-5) [facility]2022-07-22 00:00:55 Test Item Value Reference Range Interpretation Comments Height (test code = in 3481251240) Weight (test code = lbs 0308862669) Systolic BP (test code = mmHg 9726432296) Diastolic BP (test code mmHg = 5664932735) Heart Rate (test code = bpm 8043553458) BSA (test code = 2.04 m2 7098756002) Ao root annulus (test 3.5 cm code = 7431473050) Ao root diam (test code 3.50 cm = 0242385459) Aortic root (test code = 3.5 cm 4811691798) LVOT diameter (test code 2.19 cm = 4437539067) LVOT area (test code = 3.80 cm2 3754398502) LVIDD (test code = 5.30 cm 6355400482) Left Ventricular End 135.3 mL Diastolic Volume by Teichholz Method (test code = 0481573) IVS (test code = 1.26 cm 3719519519) Interventricular Septum 1.26 cm Diastolic Thickness by 2D (test code = 7015336) LVPWD (test code = 1.26 cm 1024815397) PW (test code = 1.26 cm 0.6-1.6 7398471996) EF(Teich) (test code = 16.40 % 7054949023) LVIDS (test code = 4.90 cm 5247786942) Left Ventricular End 113.1 mL Systolic Volume by Teichholz Method (test code = 6803956) FS (test code = 7 % 2722724653) EF - 2D (test code = 16.40 % 52788263) LA size (test code = 4.3 cm 5319249059) TR Peak Anthony (test code = 249.6 cm/s 6237315798) Triscuspid Valve mmHg Regurgitation Peak Gradient (test code = 8632274425) LAV(MOD-sp4) (test code 79.00 mL = 6400758767) E wave decelartion time 0.13 s (test code = 3645953306) MV Peak E Anthony (test code 82.3 cm/s = 6471806218) MV stenosis pressure 1/2 38.8 ms time (test code = 0832210726) MV Peak A Anthony (test code 40.8 cm/s = 5267406271) E/A ratio (test code = ratio 5504515524) MR max PG (test code = 61.50 mm[Hg] 3495743325) MR max anthony (test code = 392.20 cm/s 9281328004) Mr max anthony (test code = 392.2 m/s 7187149866) MV Prop V (test code = 33.40 cm/s 8588007916) MV E/e' septal (test 12.6 cm/s code = 1408505499) Tapse (test code = 1.17 cm 5567519036) LVOT stroke volume (test 52.20 cm3 code = 5514736791) LVOT peak anthony (test code 86.4 cm/s = 0183754824) LVOT mn grad (test code mmHg = 3057942161) AV LVOT peak gradient mmHg (test code = 1996539614) LVOT peak VTI (test code 13.9 cm = 0201485832) LV V1 mean (test code = 57.20 cm/s 0714720330) Aortic valve mean 94.3 cm/s velocity (test code = 9604558111) Ao peak anthony (test code = 125.8 cm/s 0464951021) Ao VTI (test code = 22.6 cm 1002263820) AV area by cont VTI 2.3 cm2 (test code = 0352836096) AV area peak anthony (test 2.6 cm2 code = 8091863771) Ao max PG (test code = 6.30 mm[Hg] 3052316511) AV peak gradient (test mmHg code = 7506910353) AV valve area (test code 2.31 cm2 = 3359669673) AV mean gradient (test mmHg code = 1023133871) Radiology Study observation (narrative) (test code = 18732-3) ROSLYN (test code = ROSLYN) ?Left?Ventricle: Left [...] Lumason ultrasound enhancing agent [facility]. [facility]:00:55 Test Item Value Reference Range Interpretation Comments Height (test code = in 8269615114) Weight (test code = lbs 2037398161) Systolic BP (test code = mmHg 6852118636) Diastolic BP (test code mmHg = 2083966556) Heart Rate (test code = bpm 0137401188) BSA (test code = 2.04 m2 8562076520) Ao root annulus (test 3.5 cm code = 1382822991) Ao root diam (test code 3.50 cm = 4209378862) Aortic root (test code = 3.5 cm 7923287915) LVOT diameter (test code 2.19 cm = 0163144719) LVOT area (test code = 3.80 cm2 1506431811) LVIDD (test code = 5.30 cm 8807376983) Left Ventricular End 135.3 mL Diastolic Volume by Teichholz Method (test code = 7297347) IVS (test code = 1.26 cm 6681502781) Interventricular Septum 1.26 cm Diastolic Thickness by 2D (test code = 5012594) LVPWD (test code = 1.26 cm 1968299371) PW (test code = 1.26 cm 0.6-1.7 5155773968) EF(Teich) (test code = 16.40 % 4002101277) LVIDS (test code = 4.90 cm 9122114429) Left Ventricular End 113.1 mL Systolic Volume by Teichholz Method (test code = 1512842) FS (test code = 7 % 9035657969) EF - 2D (test code = 16.40 % 70061397) LA size (test code = 4.3 cm 6584021190) TR Peak Anthony (test code = 249.6 cm/s 6282104302) Triscuspid Valve mmHg Regurgitation Peak Gradient (test code = 9665461145) LAV(MOD-sp4) (test code 79.00 mL = 0573580706) E wave decelartion time 0.13 s (test code = 3761462768) MV Peak E Anthony (test code 82.3 cm/s = 4324096138) MV stenosis pressure 1/2 38.8 ms time (test code = 2091483959) MV Peak A Anthony (test code 40.8 cm/s = 5056092945) E/A ratio (test code = ratio 4893415398) MR max PG (test code = 61.50 mm[Hg] 3003294444) MR max anthony (test code = 392.20 cm/s 3718812289) Mr max anthony (test code = 392.2 m/s 5180319404) MV Prop V (test code = 33.40 cm/s 8628326518) MV E/e' septal (test 12.6 cm/s code = 4587346558) Tapse (test code = 1.17 cm 6657634928) LVOT stroke volume (test 52.20 cm3 code = 3959976394) LVOT peak anthony (test code 86.4 cm/s = 7909938343) LVOT mn grad (test code mmHg = 1268459419) AV LVOT peak gradient mmHg (test code = 7671121923) LVOT peak VTI (test code 13.9 cm = 6706421722) LV V1 mean (test code = 57.20 cm/s 3352449742) Aortic valve mean 94.3 cm/s velocity (test code = 5239775634) Ao peak anthony (test code = 125.8 cm/s 2267153208) Ao VTI (test code = 22.6 cm 5033722519) AV area by cont VTI 2.3 cm2 (test code = 6378794307) AV area peak anthony (test 2.6 cm2 code = 2104863862) Ao max PG (test code = 6.30 mm[Hg] 4466726690) AV peak gradient (test mmHg code = 8768613840) AV valve area (test code 2.31 cm2 = 6245363749) AV mean gradient (test mmHg code = 0087209149) Radiology Study observation (narrative) (test code = 05614-8) ROSLYN (test code = ROSLYN) ?Left?Ventricle: Left [...] mL of Lumason ultrasound enhancing agent used. [facility] GLUCOSE (AUTOMATED)2022-07-21 21:54:48 Test Item Value Reference Range Interpretation Comments POCT GLU (test code = 8133400772) 161 mg/dL 70-110 H Lab Interpretation (test code = Abnormal 40047-0) [facility] GLUCOSE (AUTOMATED)2022-07-21 21:54:48 Test Item Value Reference Range Interpretation Comments POCT GLU (test code = 5286452769) 161 mg/dL 70-110 H Lab Interpretation (test code = Abnormal 30343-8) [facility] GLUCOSE (AUTOMATED)2022-07-21 16:47:05 Test Item Value Reference Range Interpretation Comments POCT GLU (test code = 6002662669) 132 mg/dL 70-110 H Lab Interpretation (test code = Abnormal 35772-8) [facility] GLUCOSE (AUTOMATED)2022-07-21 16:47:05 Test Item Value Reference Range Interpretation Comments POCT GLU (test code = 9576539888) 132 mg/dL 70-110 H Lab Interpretation (test code = Abnormal 30596-1) [facility] GLUCOSE (AUTOMATED)2022-07-21 15:03:01 Test Item Value Reference Range Interpretation Comments POCT GLU (test code = 4739987925) 182 mg/dL 70-110 H Lab Interpretation (test code = Abnormal 23021-9) [facility] GLUCOSE (AUTOMATED)2022-07-21 15:03:01 Test Item Value Reference Range Interpretation Comments POCT GLU (test code = 3750376007) 182 mg/dL 70-110 H Lab Interpretation (test code = Abnormal 86992-6) [facility] with [id number] 14:58:14 Test Item Value Reference Range Interpretation Comments WBC (test code = See_Comment H [Automated 4990-2) message] The system which generated this result [...] RDW-SD (test code = 46.4 fL 38.5-51.6 89746-1) RDW-CV (test code = 13.5 % 12.1-15.4 788-0) PLT (test code = See_Comment [Automated 777-3) message] The system which generated this result transmit artem reference range : 150 - 328 10*3/ ?L. The reference range was not u sed to interpret th is result as normal/abnormal . MPV (test code = 13.0 fL 9.8-13 16538-2) NRBC/100 WBC (test See_Comment [Automat ed code = 1015929887) message] The system which generated this result transmit artem reference range : 0.0 - 10.0 /100 WBCs. The reference range was not used to interpret this result as normal/abnormal . NRBC x10^3 (test code See_Comment [Auto mated = 9655899227) message] The system which generated this result transmit artem reference range : 10*3/?L. The reference range was not used to interpret this result as normal/abnormal . GRAN MAT (NEUT) % 71.1 % (test code = 770-8) IMM GRAN % (test code 0.40 % = 2891078033) LYMPH % (test code = 17.6 % 736-9) MONO % (test code = 10.3 % 5905-5) EOS % (test code = 0.3 % 713-8) BASO % (test code = 0.3 % 706-2) GRAN MAT x10^3(ANC) 10.55 10*3/uL 1.99-6.95 H (test code = 5540653877) IMM GRAN x10^3 (test 0.06 10*3/uL 0-0.06 code = 4109209617) LYMPH x10^3 (test code 2.61 10*3/uL 1.09-3.23 = 731-0) MONO x10^3 (test code 1.53 10*3/uL 0.36-1.02 H = 742-7) EOS x10^3 (test code = 0.04 10*3/uL 0.06-0.53 L 711-2) BASO x10^3 (test code 0.04 10*3/uL 0.01-0.09 = 704-7) BANDS (test code = Increased A 1915627613) REACT LYMPHS (test Rare code = 9607358371) GIANT PLATELETS (test Present See_Comment A [Auto mated code = 5908-9) message] The system which generated this result transmit artem reference range : (none). The reference range was not used to interpret this result as normal/abnormal . Lab Interpretation Abnormal (test code = 81860-4) [facility] with Bngnihwjcqhc9017-14-72 14:58:14 Test Item Value Reference Range Interpretation Comments WBC (test code = See_Comment H [Automated 3910-2) message] The system which generated this result transmit artem reference range : 4.20 - 10.70 10*3/?L. The reference range was not used to interpret this result as normal/abnormal . RBC (test code = See_Comment [Automated 279-8) message] The system which generated this result [...] RDW-SD (test code = 46.4 fL 38.5-51.6 32313-3) RDW-CV (test code = 13.5 % 12.1-15.4 788-0) PLT (test code = See_Comment [Automated 777-3) message] The system which generated this result transmit artem reference range : 150 - 328 10*3/ ?L. The reference range was not u sed to interpret th is result as normal/abnormal . MPV (test code = 13.0 fL 9.8-13 88840-0) NRBC/100 WBC (test See_Comment [Automat ed code = 8681129025) message] The system which generated this result transmit artem reference range : 0.0 - 10.0 /100 WBCs. The reference range was not used to interpret this result as normal/abnormal . NRBC x10^3 (test code See_Comment [Auto mated = 5297224469) message] The system which generated this result transmit artem reference range : 10*3/?L. The reference range was not used to interpret this result as normal/abnormal . GRAN MAT (NEUT) % 71.1 % (test code = 770-8) IMM GRAN % (test code 0.40 % = 7100110947) LYMPH % (test code = 17.6 % 736-9) MONO % (test code = 10.3 % 5905-5) EOS % (test code = 0.3 % 713-8) BASO % (test code = 0.3 % 706-2) GRAN MAT x10^3(ANC) 10.55 10*3/uL 1.99-6.95 H (test code = 8943340089) IMM GRAN x10^3 (test 0.06 10*3/uL 0-0.06 code = 6185710141) LYMPH x10^3 (test code 2.61 10*3/uL 1.09-3.23 = 731-0) MONO x10^3 (test code 1.53 10*3/uL 0.36-1.02 H = 742-7) EOS x10^3 (test code = 0.04 10*3/uL 0.06-0.53 L 711-2) BASO x10^3 (test code 0.04 10*3/uL 0.01-0.09 = 704-7) BANDS (test code = Increased A 3475197567) REACT LYMPHS (test Rare code = 9102846419) GIANT PLATELETS (test Present See_Comment A [Auto mated code = 5908-9) message] The system which generated this result transmit artem reference range : (none). The reference range was not used to interpret this result as normal/abnormal . Lab Interpretation Abnormal (test code = 50455-2) [facility] GLUCOSE (AUTOMATED)2022-07-21 13:20:46 Test Item Value Reference Range Interpretation Comments POCT GLU (test code = 0694437360) 148 mg/dL 70-110 H Lab Interpretation (test code = Abnormal 25623-9) [facility] GLUCOSE (AUTOMATED)2022-07-21 13:20:46 Test Item Value Reference Range Interpretation Comments POCT GLU (test code = 9720665227) 148 mg/dL 70-110 H Lab Interpretation (test code = Abnormal 15836-8) [facility] Metabolic Panel (NA, K, CL, CO2, GLUCOSE, BUN, CREATININE, CA)2022-07-21 13:17:35 Test Item Value Reference Range Interpretation Comments NA (test code = 134 mmol/L 135-145 L 4809623391) K (test code = 4.1 mmol/L 3.5-5 1937473195) CL (test code = 99 mmol/L 98-108 0930231079) CO2 TOTAL (test code = 32 mmol/L 23-31 H 4047432772) AGAP (test code = 2-16 7488592355) BUN (test code = 17 mg/dL 7-23 6481487237) GLUCOSE (test code = 186 mg/dL 70-110 H 7899131707) CREATININE (test code = 0.65 mg/dL 0.6-1.25 4850141271) CALCIUM (test code = 8.2 mg/dL 8.6-10.6 L 5183385177) eGFR (test code = mL/min/1.73m2 7537578120) ROSLYN (test code = ROSLYN) Association of [...] tests). Lab Interpretation Abnormal (test code = 93180-9) [facility] Metabolic Panel (NA, K, CL, CO2, GLUCOSE, BUN, CREATININE, CA)2022-07-21 13:17:35 Test Item Value Reference Range Interpretation Comments NA (test code = 134 mmol/L 135-145 L 2440440188) K (test code = 4.1 mmol/L 3.5-5 0630149687) CL (test code = 99 mmol/L 98-108 8299194737) CO2 TOTAL (test code = 32 mmol/L 23-31 H 2295115824) AGAP (test code = 2-16 6824788596) BUN (test code = 17 mg/dL 7-23 8382683807) GLUCOSE (test code = 186 mg/dL 70-110 H 6219806322) CREATININE (test code = 0.65 mg/dL 0.6-1.25 2811547775) CALCIUM (test code = 8.2 mg/dL 8.6-10.6 L 5522064608) eGFR (test code = mL/min/1.73m2 3483289365) ROSLYN (test code = ROSLYN) Association of [...] tests). Lab Interpretation Abnormal (test code = 73863-7) [facility] [id number] 12:35:48 Test Item Value Reference Interpretation Comments Range TROPONIN I (test 0.032 ng/mL See_Comment [Automated code = 1077534054) message] The system which generated this result [...] biotin. Lab Interpretation Normal (test code = 31037-7) [facility] [id number] 12:35:48 Test Item Value Reference Interpretation Comments Range TROPONIN I (test 0.032 ng/mL See_Comment [Automated code = 4035541844) message] The system which generated this result [...] biotin. Lab Interpretation Normal (test code = 32662-5) [facility] [id number] 12:32:47 Test Item Value Reference Range Interpretation Comments NT-proBNP (test code 3830 pg/mL See_Comment H [Autom ated = 3772956158) message] The system which generated this result transmitted reference range : <=125. The reference range was not used to interpret this result as normal/abnormal . ROSLYN (test code = ROSLYN) Biotin has been reported to cause a negative bias, interpret results relative to patient's use of biotin. Lab Interpretation Abnormal (test code = 81890-8) [facility] [id number] 12:32:47 Test Item Value Reference Range Interpretation Comments NT-proBNP (test code 3830 pg/mL See_Comment H [Autom ated = 0390592733) message] The system which generated this result transmitted reference range : <=125. The reference range was not used to interpret this result as normal/abnormal . ROSLYN (test code = ROSLYN) Biotin has been reported to cause a negative bias, interpret results relative to patient's use of biotin. Lab Interpretation Abnormal (test code = 03090-6) [facility] [id number] 12:24:10 Test Item Value Reference Range Interpretation Comments MAGNESIUM (test code = 8580905068) 1.8 mg/dL 1.7-2.4 Lab Interpretation (test code = Normal 01874-5) [id number] 12:24:10 Test Item Value Reference Range Interpretation Comments MAGNESIUM (test code = 7130909523) 1.8 mg/dL 1.7-2.4 Lab Interpretation (test code = Normal 32244-7) [facility] GLUCOSE (AUTOMATED)2022-07-21 04:19:16 Test Item Value Reference Range Interpretation Comments POCT GLU (test code = 0198268312) 169 mg/dL 70-110 H Lab Interpretation (test code = Abnormal 57152-0) [facility] GLUCOSE (AUTOMATED)2022-07-21 04:19:16 Test Item Value Reference Range Interpretation Comments POCT GLU (test code = 6313019177) 169 mg/dL 70-110 H Lab Interpretation (test code = Abnormal 63490-5) [facility] GLUCOSE (AUTOMATED)2022-07-21 02:03:28 Test Item Value Reference Range Interpretation Comments POCT GLU (test code = 9244208021) 242 mg/dL 70-110 H Lab Interpretation (test code = Abnormal 41743-9) [facility] GLUCOSE (AUTOMATED)2022-07-21 02:03:28 Test Item Value Reference Range Interpretation Comments POCT GLU (test code = 2992661848) 242 mg/dL 70-110 H Lab Interpretation (test code = Abnormal 60174-0) [facility]cos[facility]oglobin (A1C)2022-07-21 00:46:20 Test Item Value Reference Range Interpretation Comments HGB A1C (test code = 11.1 % 4-5.7 H 4548-4) ROSLYN (test code = ROSLYN) Reference RangesNormal: <5.7%Prediabetes: 5.7 - 6.4%Diabetes: > 6.5% Lab Interpretation (test Abnormal code = 58462-2) [facility] (A1C)2022-07-21 00:46:20 Test Item Value Reference Range Interpretation Comments HGB A1C (test code = 11.1 % 4-5.7 H 4548-4) ROSLYN (test code = ROSLYN) Reference RangesNormal: <5.7%Prediabetes: 5.7 - 6.4%Diabetes: > 6.5% Lab Interpretation (test Abnormal code = 72689-5) [facility] GLUCOSE (AUTOMATED)2022-07-20 22:27:55 Test Item Value Reference Range Interpretation Comments POCT GLU (test code = 8170576589) 234 mg/dL 70-110 H Lab Interpretation (test code = Abnormal 62339-5) [facility] GLUCOSE (AUTOMATED)2022-07-20 22:27:55 Test Item Value Reference Range Interpretation Comments POCT GLU (test code = 5538793753) 234 mg/dL 70-110 H Lab Interpretation (test code = Abnormal 15083-7) [facility] [id number] 17:21:08 Test Item Value Reference Range Interpretation Comments NT-proBNP (test code 3250 pg/mL See_Comment H [Autom ated = 2897772093) message] The system which generated this result transmitted reference range : <=125. The reference range was not used to interpret this result as normal/abnormal . ROSLYN (test code = ROSLYN) Biotin has been reported to cause a negative bias, interpret results relative to patient's use of biotin. Lab Interpretation Abnormal (test code = 34131-7) [facility] [id number] 17:21:08 Test Item Value Reference Range Interpretation Comments NT-proBNP (test code 3250 pg/mL See_Comment H [Autom ated = 7571422531) message] The system which generated this result transmitted reference range : <=125. The reference range was not used to interpret this result as normal/abnormal . ROSLYN (test code = ROSLYN) Biotin has been reported to cause a negative bias, interpret results relative to patient's use of biotin. Lab Interpretation Abnormal (test code = 77555-3) [facility] WITH [id number] 17:16:49 Test Item Value Reference Range Interpretation [...] RDW-SD (test code = 44.7 fL 38.5-51.6 12423-2) RDW-CV (test code = 13.7 % 12.1-15.4 788-0) PLT (test code = See_Comment [Automated 777-3) message] The system which generated this result transmit artem reference range : 150 - 328 10*3/ ?L. The reference range was not u sed to interpret th is result as normal/abnormal . MPV (test code = 12.5 fL 9.8-13 48104-7) NRBC/100 WBC (test See_Comment [Automat ed code = 3435122352) message] The system which generated this result transmit artem reference range : 0.0 - 10.0 /100 WBCs. The reference range was not used to interpret this result as normal/abnormal . NRBC x10^3 (test code See_Comment [Auto mated = 2388518866) message] The system which generated this result transmit artem reference range : 10*3/?L. The reference range was not used to interpret this result as normal/abnormal . GRAN MAT (NEUT) % 76.6 % (test code = 770-8) IMM GRAN % (test code 0.70 % = 4117208334) LYMPH % (test code = 13.8 % 736-9) MONO % (test code = 8.5 % 5905-5) EOS % (test code = 0.1 % 713-8) BASO % (test code = 0.3 % 706-2) GRAN MAT x10^3(ANC) 17.13 10*3/uL 1.99-6.95 H (test code = 2427837738) IMM GRAN x10^3 (test 0.16 10*3/uL 0-0.06 H code = 2570240412) LYMPH x10^3 (test code 3.10 10*3/uL 1.09-3.23 = 731-0) MONO x10^3 (test code 1.91 10*3/uL 0.36-1.02 H = 742-7) EOS x10^3 (test code = 0.06-0.53 L 711-2) BASO x10^3 (test code 0.07 10*3/uL 0.01-0.09 = 704-7) BANDS (test code = Increased A 5142627276) REACT LYMPHS (test Rare code = 2887180276) Lab Interpretation Abnormal (test code = 87439-7) [facility] WITH [id number] 17:16:49 Test Item Value Reference Range Interpretation [...] RDW-SD (test code = 44.7 fL 38.5-51.6 09507-6) RDW-CV (test code = 13.7 % 12.1-15.4 788-0) PLT (test code = See_Comment [Automated 777-3) message] The system which generated this result transmit artem reference range : 150 - 328 10*3/ ?L. The reference range was not u sed to interpret th is result as normal/abnormal . MPV (test code = 12.5 fL 9.8-13 49727-6) NRBC/100 WBC (test See_Comment [Automat ed code = 7789421524) message] The system which generated this result transmit artem reference range : 0.0 - 10.0 /100 WBCs. The reference range was not used to interpret this result as normal/abnormal . NRBC x10^3 (test code See_Comment [Auto mated = 0375937152) message] The system which generated this result transmit artem reference range : 10*3/?L. The reference range was not used to interpret this result as normal/abnormal . GRAN MAT (NEUT) % 76.6 % (test code = 770-8) IMM GRAN % (test code 0.70 % = 1793729448) LYMPH % (test code = 13.8 % 736-9) MONO % (test code = 8.5 % 5905-5) EOS % (test code = 0.1 % 713-8) BASO % (test code = 0.3 % 706-2) GRAN MAT x10^3(ANC) 17.13 10*3/uL 1.99-6.95 H (test code = 1837283010) IMM GRAN x10^3 (test 0.16 10*3/uL 0-0.06 H code = 5078274594) LYMPH x10^3 (test code 3.10 10*3/uL 1.09-3.23 = 731-0) MONO x10^3 (test code 1.91 10*3/uL 0.36-1.02 H = 742-7) EOS x10^3 (test code = 0.06-0.53 L 711-2) BASO x10^3 (test code 0.07 10*3/uL 0.01-0.09 = 704-7) BANDS (test code = Increased A 6913297517) REACT LYMPHS (test Rare code = 2520649206) Lab Interpretation Abnormal (test code = 58266-8) [facility] [id number] 16:42:04 Test Item Value Reference Interpretation Comments Range TROPONIN I (test 0.025 ng/mL See_Comment [Automated code = 1046246375) message] The system which generated this result [...] biotin. Lab Interpretation Normal (test code = 11295-9) [facility] [id number] 16:42:04 Test Item Value Reference Interpretation Comments Range TROPONIN I (test 0.025 ng/mL See_Comment [Automated code = 1370344151) message] The system which generated this result [...] biotin. Lab Interpretation Normal (test code = 36918-4) [facility] 16:31:19 Test Item Value Reference Range Interpretation Comments APTT Patient (test See_Comment [Automat ed code = 3173-2) message] The system which generated this result transmitted reference range : 23 - 38 Seconds . The reference range was not used to interpr et this result as normal/abnormal . ROSLYN (test code = ROSLYN) The [facility] patient population mean normal value for aPTT is 30 seconds. Lab Interpretation Normal (test code = 32346-0) [facility] 16:31:19 Test Item Value Reference Range Interpretation Comments APTT Patient (test See_Comment [Automat ed code = 3173-2) message] The system which generated this result transmitted reference range : 23 - 38 Seconds . The reference range was not used to interpr et this result as normal/abnormal . ROSLYN (test code = ROSLYN) The [facility] patient population mean normal value for aPTT is 30 seconds. Lab Interpretation Normal (test code = 52856-5) [facility]OLIC PAN[facility] (16898)2022-07-20 16:30:19 Test Item Value Reference Range Interpretation Comments NA (test code = 133 mmol/L 135-145 L 7907912091) K (test code = 5.3 mmol/L 3.5-5 H 7470378006) CL (test code = 98 mmol/L 98-108 8028562070) CO2 TOTAL (test code = 27 mmol/L 23-31 0513519327) AGAP (test code = 2-16 5024026376) BUN (test code = 13 mg/dL 7-23 9605370996) GLUCOSE (test code = 273 mg/dL 70-110 H 9737827551) CREATININE (test code = 0.62 mg/dL 0.6-1.25 6333324417) TOTAL BILI (test code = 2.1 mg/dL 0.1-1.1 H 0410359550) CALCIUM (test code = 8.6 mg/dL 8.6-10.6 0077056774) T PROTEIN (test code = 7.3 g/dL 6.3-8.2 9454834079) ALBUMIN (test code = 4.4 g/dL 3.5-5 8998140748) ALK PHOS (test code = 61 U/L 34-122 1801317445) ALTv (test code = 29 U/L 50 1742-6) AST(SGOT) (test code = 36 U/L 13-40 9172453477) eGFR (test code = mL/min/1.73m2 0745104132) ROSLYN (test code = ROSLYN) Association of [...] tests). Lab Interpretation Abnormal (test code = 51034-3) [facility]. METABOLIC PANEL ([id number])2022-07-20 16:30:19 Test Item Value Reference Range Interpretation Comments NA (test code = 133 mmol/L 135-145 L 2081201304) K (test code = 5.3 mmol/L 3.5-5 H 6934560836) CL (test code = 98 mmol/L 98-108 5768118082) CO2 TOTAL (test code = 27 mmol/L 23-31 0342299822) AGAP (test code = 2-16 1783337330) BUN (test code = 13 mg/dL 7-23 7697571772) GLUCOSE (test code = 273 mg/dL 70-110 H 9125823754) CREATININE (test code = 0.62 mg/dL 0.6-1.25 3005913126) TOTAL BILI (test code = 2.1 mg/dL 0.1-1.1 H 2127041150) CALCIUM (test code = 8.6 mg/dL 8.6-10.6 0183941590) T PROTEIN (test code = 7.3 g/dL 6.3-8.2 0205035795) ALBUMIN (test code = 4.4 g/dL 3.5-5 1856914995) ALK PHOS (test code = 61 U/L 34-122 5528412133) ALTv (test code = 29 U/L 5-50 2-6) AST(SGOT) (test code = 36 U/L 13-40 6313093961) eGFR (test code = mL/min/1.73m2 7516074670) ROSLYN (test code = ROSLYN) Association of [...] tests). Lab Interpretation Abnormal (test code = 28148-0) [facility] [id number] 16:29:23 Test Item Value Reference Range Interpretation Comments PROTIME PATIENT (test See_Comment [Auto mated message] code = 5964-2) The system [employer] generated this result transmitted ref erence range: 12.0 - 1 4.7 Seconds. The re ference range was not u sed to interpret this result as normal/abnor mal. INR (test code = 6301-6) Nor mal INR <1.1; Warfarin Therap eutic range 2.0 to 3. 0 or 2.5 to 3.5, dep ending upon the indica tions. Lab Interpretation (test Normal code = 35675-2) [facility] [id number] 16:29:23 Test Item Value Reference Range Interpretation Comments PROTIME PATIENT (test See_Comment [Auto mated message] code = 5964-2) The system [employer] generated this result transmitted ref erence range: 12.0 - 1 4.7 Seconds. The re ference range was not u sed to interpret this result as normal/abnor mal. INR (test code = 6301-6) Nor mal INR <1.1; Warfarin Therap eutic range 2.0 to 3. 0 or 2.5 to 3.5, dep ending upon the indica tions. Lab Interpretation (test Normal code = 09893-4) [facility]"
[2022-10-26 16:52] LABS: Absolute Lymphocytes (CBC) 2.9 K/uL (0.7-4.9); Hematocrit 46.8 % (39.6-49.0); Lymphocytes % 19.4 % (15.3-44.8); MCV 91.4 fL (80-100); MPV 9.6 fL (7.6-11.3); RBC Red Blood Cell Count 5.12 M/uL (4.33-5.43)
[2022-10-26 17:00] LABS: Protime INR 1.09
[2022-10-26 17:11] LABS: Potassium 4.4 mmol/L (3.5-5.1); Troponin High Sensitivity 15.6 pg/mL (<58.9)
--- NOTE | 2022-10-26 17:34 | RAD REPORT ---
EXAM DESCRIPTION: Billy Single View10/26/2022 5:23 pm CLINICAL HISTORY: Chest pain COMPARISON: October 23, 2022 FINDINGS: The lungs appear clear of acute infiltrate. The heart is borderline enlarged IMPRESSION: No acute abnormalities displayed
[2022-10-26] MEDS ORDERED: FUROSEMIDE 100 MG/10 ML VIAL IV ONE (18:26)
--- NOTE | 2022-10-26 18:44 | EDPHYS ---
Physician Documentation [facility] Name: José Pat Age: 72 yrs Sex: Male : 1950 Arrival Date: 10/26/2022 Time: 16:36 Bed 14 Private MD: ED Physician Jayme Rao HPI: 10/26 16:47 This 72 yrs old Male presents to ER via Unassigned with complaints of chest pain. rn 16:47 The patient or guardian reports chest pain that is located primarily in the substernal rn area. Onset: 5 hour(s) ago. The pain does not radiate. Associated signs and symptoms: Pertinent positives: shortness of breath, Pertinent negatives: abdominal pain, headache, nausea, near syncope, palpitations, syncope. The chest pain is described as dull. Duration: The patient or guardian reports multiple episodes, that are intermittent. Modifying factors: The symptoms are alleviated by nothing. the symptoms are aggravated by nothing. Severity of pain: At its worst the pain was moderate in the emergency department the pain has improved. The patient has experienced similar episodes in the past. The patient has been recently seen by a physician:. Pt returns with chest pain, substernal, non-radiating. Had neg cath within last 2 weeks. No fever or illness. No trauma. Reports this chest pain happens often which prompts him to come to emergency room. No abd pain. . Historical: - Allergies: 16:53 No Known Allergies; kb3 - Home Meds: 17:02 Eliquis Oral [Active]; Insulin: Lantus Sub-Q [Active]; tamsulosin 0.4 mg Oral cap mb9 [Active]; - PMHx: 16:53 Atrial fibrillation; CHF; COPD; Diabetes - IDDM; Myocardial infarction; Chronic Chest kb3 Pain; Noncompliance with medications; - Immunization history:: Adult Immunizations unknown, Client reports receiving the 2nd dose of the Covid vaccine. - Social history:: Smoking status: Patient reports the use of cigarette tobacco products, smokes one pack cigarettes per day. - Family history:: not pertinent. - Hospitalizations: : The patient was recently seen at [facility]. ROS: 16:47 Constitutional: Negative for fever, chills, and weight loss, Eyes: Negative for injury, rn pain, redness, and discharge, Neck: Negative for injury, pain, and swelling, Cardiovascular: Negative for palpitations, and edema, Respiratory: Negative for wheezing, and pleuritic chest pain Abdomen/GI: Negative for abdominal pain, nausea, vomiting, diarrhea, and constipation, Back: Negative for injury and pain, MS/Extremity: Negative for injury and deformity, Skin: Negative for injury, rash, and discoloration, Neuro: Negative for headache, weakness, numbness, tingling, and seizure. Exam: 16:47 Constitutional: This is a well developed, well nourished patient who is awake, alert, rn and in no acute distress. Head/Face: Normocephalic, atraumatic. Eyes: Periorbital areas with no swelling, redness, or edema. ENT: No stridor Cardiovascular: Regular rate, irregular rhythm. No pulse deficits. Respiratory: No increased work of breathing, no retractions or nasal flaring. Abdomen/GI: Soft, non-tender Skin: Warm, dry MS/ Extremity: Pulses equal, no cyanosis. Neuro: Awake and alert, GCS 15 16:55 ECG was reviewed by the Attending Physician. rn Vital Signs: 16:35 BP 103 / 75; Pulse 115; Resp 20; Pulse Ox 87% on R/A; Weight 94.35 kg; Height 5 ft. 7 kb3 in. (170.18 cm); Pain 6/10; 16:55 Pulse Ox 92% on 2 lpm NC; aa5 17:55 BP 125 / 74; Pulse 111; Resp 20; Pulse Ox 99% on 2 lpm NC; mb9 16:35 Body Mass Index 32.58 (94.35 kg, 170.18 cm) kb3 MDM: 16:36 Patient medically screened. rn 18:41 Differential diagnosis: acute myocardial infarction, acute pericarditis, anxiety, chest rn wall pain, costochondritis, pleurisy, pneumonia, pneumothorax, CHF exacerbation pulmonary edema. Data reviewed: vital signs, nurses notes, lab test result(s), EKG, radiologic studies, plain films, and as a result, I will discharge patient. Counseling: I had a detailed discussion with the patient and/or guardian regarding: the historical points, exam findings, and any diagnostic results supporting the discharge/admit diagnosis, lab results, radiology results, the need for outpatient follow up, to return to the emergency department if symptoms worsen or persist or if there are any questions or concerns that arise at home. Response to treatment: the patient's symptoms have markedly improved after treatment, and as a result, I will discharge patient. Special discussion: Based on the patient's history, exam, and Dx evaluation, there is no indication for emergent intervention or inpatient Tx. It is understood by the patient/guardian that if the Sx's persist or worsen they need to return immediately for re-evaluation. I discussed with the patient/guardian in detail that at this point there is no indication for admission to the hospital. It is understood, however, that if the symptoms persist or worsen the patient needs to return immediately for re-evaluation. ED course: Pt with 2 admissions this week for chest pain, neg cath on one of them, neg trop today, CXR clear, on home O2, normally 3-4 L, will dc home after IV lasix with return precautions and instructions to take his medications as prescribed since he reported not taking his meds currently. . 10/26 16:36 Order name: Basic Metabolic Panel; Complete Time: 17:15 10/26 16:36 Order name: CBC with Diff; Complete Time: 17:15 10/26 16:36 Order name: NT PRO-BNP; Complete Time: 17:15 rn 10/26 16:36 Order name: PT-INR; Complete Time: 17:15 rn 10/26 16:36 Order name: Troponin HS; Complete Time: 17:15 rn 10/26 16:36 Order name: XRAY Chest (1 view); Complete Time: 18:02 10/26 16:36 Order name: EKG; Complete Time: 16:37 rn 10/26 16:36 Order name: Cardiac monitoring; Complete Time: 16:55 rn 10/26 16:36 Order name: EKG - Nurse/Tech; Complete Time: 16:55 rn 10/26 16:36 Order name: IV Saline Lock; Complete Time: 16:55 rn 10/26 16:36 Order name: Labs collected and sent; Complete Time: 16:55 rn 10/26 16:36 Order name: O2 Per Protocol; Complete Time: 16:55 10/26 16:36 Order name: O2 Sat Monitoring; Complete Time: 16:55 rn EC:55 Rate is 113 beats/min. Rhythm is regular. RI interval is normal. QRS interval is normal rn at 138 msec. QT interval is normal. No Q waves. T waves are Normal. No ST changes noted. Clinical impression: Sinus tachycardia. Interpreted by me. Reviewed by me. Administered Medications: 18:32 Drug: Lasix (furosemide) 60 mg Route: IVP; Site: left antecubital; mb9 18:49 Follow up: Response: No adverse reaction mb9 Disposition Summary: 10/26/22 18:43 Discharge Ordered Location: Home rn Condition: Stable rn Diagnosis - Chest pain, unspecified rn - Unspecified combined systolic (congestive) and diastolic (congestive) heart failure rn - COPD/ Chronic obstructive pulmonary disease, unspecified rn Followup: rn - With: Private Physician - When: 2 - 3 days - Reason: Recheck today's complaints, Re-evaluation by your physician Discharge Instructions: - Discharge Summary Sheet rn - Nonspecific Chest Pain, Adult rn - Chronic Obstructive Pulmonary Disease rn - Heart Failure, Self Care rn - Heart Failure Medicines rn Forms: - Medication Reconciliation Form rn - Thank You Letter rn - 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
--- NOTE | 2022-10-26 18:44 | ER ---
[facility]urse's Notes [facility] Name: José Pat Age: 72 yrs Sex: Male : 1950 Arrival Date: 10/26/2022 Time: 16:36 Bed 14 Private MD: Diagnosis: Chest pain, unspecified;Unspecified combined systolic (congestive) and diastolic (congestive) heart failure;COPD/ Chronic obstructive pulmonary disease, unspecified Presentation: 10/26 16:35 Chief complaint: Patient states: left-sided CP since noon today. PT reports he is kb3 currently not taking any of his prescribed medications because his car is being worked on. 16:35 Coronavirus screen: Vaccine status: Patient reports receiving the 2nd dose of the covid kb3 vaccine. Client denies travel out of the [place] in the last 14 days. Ebola Screen: Patient negative for fever greater than or equal to 101.5 degrees Fahrenheit, and additional compatible Ebola Virus Disease symptoms Patient denies exposure to infectious person. Patient denies travel to an Ebola-affected area in the 21 days before illness onset. Initial Sepsis Screen: Does the patient meet any 2 criteria? No. Patient's initial sepsis screen is negative. Does the patient have a suspected source of infection? No. Patient's initial sepsis screen is negative. Risk Assessment: Do you want to hurt yourself or someone else? Patient reports no desire to harm self or others. Onset of symptoms was October 26, 2022 at 12:00. 16:35 Method Of Arrival: EMS: [place] [id number] 16:35 Acuity: KIT 2 kb3 Triage Assessment: 16:53 General: Appears in no apparent distress. Behavior is calm, cooperative. Pain: kb3 Complains of pain in left clavicle, anterior aspect of left upper chest and left breast Pain radiates to left arm Pain currently is 6 out of 10 on a pain scale. Quality of pain is described as sharp. Cardiovascular: Rhythm is atrial fibrillation. Historical: - Allergies: 16:53 No Known Allergies; kb3 - Home Meds: 17:02 Eliquis Oral [Active]; Insulin: Lantus Sub-Q [Active]; tamsulosin 0.4 mg Oral cap mb9 [Active]; - PMHx: 16:53 Atrial fibrillation; CHF; COPD; Diabetes - IDDM; Myocardial infarction; Chronic Chest kb3 Pain; Noncompliance with medications; - Immunization history:: Adult Immunizations unknown, Client reports receiving the 2nd dose of the Covid vaccine. - Social history:: Smoking status: Patient reports the use of cigarette tobacco products, smokes one pack cigarettes per day. - Family history:: not pertinent. - Hospitalizations: : The patient was recently seen at [facility]. Screenin:00 [facility] ED Fall Risk Assessment (Adult) History of falling in the last 3 months, mb9 including since admission No falls in past 3 months (0 pts) Confusion or Disorientation No (0 pts) Intoxicated or Sedated No (0 pts) Impaired Gait No (0 pts) Mobility Assist Device Used No (0 pt) Altered Elimination No (0 pt) Score/Fall Risk Level 0 - 2 = Low Risk Oriented to surroundings, Maintained a safe environment, Educated pt \T\ family on fall prevention, incl call for assistance when getting out of bed. Abuse screen: Denies threats or abuse. Nutritional screening: No deficits noted. Tuberculosis screening: No symptoms or risk factors identified. Assessment: 16:58 General: Appears uncomfortable, Behavior is calm, cooperative. Pain: Complains of pain mb9 in chest Pain does not radiate. Pain currently is 6 out of 10 on a pain scale. Quality of pain is described as pressure, Pain began suddenly, Aggravated by increased activity. Neuro: Padilla Agitation-Sedation Scale (RASS): 0 - Alert and Calm Level of Consciousness is awake, alert, obeys commands, Oriented to person, place, time, situation, Appropriate for age. Cardiovascular: Reports chest pain, Heart tones S1 S2 present Capillary refill is > 3 seconds Rhythm is sinus tachycardia. Respiratory: Airway is patent Respiratory effort is even, unlabored, Respiratory pattern is regular, Breath sounds with wheezes bilaterally. GI: Abdomen is round Bowel sounds present X 4 quads. Abd is soft and non tender Patient currently denies nausea. : No signs and/or symptoms were reported regarding the genitourinary system. EENT: No signs and/or symptoms were reported regarding the EENT system. Derm: Skin with poor turgor Skin is dry, Skin is normal, Skin temperature is warm. Musculoskeletal: Range of motion: intact in all extremities. 18:22 Reassessment: Patient states symptoms have not improved. Pain: Complains of pain in mb9 chest. Neuro: Level of Consciousness is awake, alert, obeys commands, Oriented to person, place, time, situation, Appropriate for age. Respiratory: Airway is patent Respiratory effort is even, unlabored, Respiratory pattern is regular. Derm: Skin is intact, Skin is dry, Skin is normal, Skin temperature is warm. 18:58 Reassessment: Patient states feeling better. Patient states symptoms have improved. mb9 Cardiovascular: Rhythm is regular. Respiratory: Airway is patent. Derm: Skin is dry, Skin is normal, Skin temperature is warm. Vital Signs: 16:35 BP 103 / 75; Pulse 115; Resp 20; Pulse Ox 87% on R/A; Weight 94.35 kg; Height 5 ft. 7 kb3 in. (170.18 cm); Pain 6/10; 16:55 Pulse Ox 92% on 2 lpm NC; aa5 17:55 BP 125 / 74; Pulse 111; Resp 20; Pulse Ox 99% on 2 lpm NC; mb9 16:35 Body Mass Index 32.58 (94.35 kg, 170.18 cm) kb3 ED Course: 16:36 Patient arrived in ED. eb 16:36 Jayme Rao MD is Attending Physician. rn 16:43 Initial lab(s) drawn, by me, sent to lab. Maintain EMS IV. Dressing intact. Good blood aa5 return noted. Site clean \T\ dry. Gauge \T\ site: 20G to L FA . 16:53 Triage completed. kb3 16:53 Arm band placed on right wrist. kb3 16:53 Patient has correct armband on for positive identification. Placed in gown. Bed in low mb9 position. Call light in reach. Side rails up X 1. Client placed on continuous cardiac and pulse oximetry monitoring. NIBP monitoring applied. 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 16:57 Lizz Olsen, MADELEINE is Primary Nurse. mb9 17:01 No provider procedures requiring assistance completed. mb9 17:25 XRAY Chest (1 view) In Process Unspecified. EDMS 18:59 IV discontinued, intact, bleeding controlled, No redness/swelling at site. Pressure mb9 dressing applied. Administered Medications: 18:32 Drug: Lasix (furosemide) 60 mg Route: IVP; Site: left antecubital; mb9 18:49 Follow up: Response: No adverse reaction mb9 Medication: 17:01 VIS not applicable for this client. mb9 Outcome: 18:43 Discharge ordered by . rn 18:59 Discharged to home via wheelchair. mb9 18:59 Condition: stable 18:59 Discharge instructions given to patient, Instructed on discharge instructions, follow up and referral plans. Demonstrated understanding of instructions, follow-up care. 19:00 Patient left the ED. mb9 Signatures: Dispatcher [employer] EDMS Jayme Rao MD MD rn Calderon, Audri RN RN aa5 Virginie Hester Kelly RN RN kb3 Lizz Olsen RN RN mb9 Corrections: (The following items were deleted from the chart) 16:54 16:53 Home Meds: Eliquis Oral; kb3 kb3
[2022-10-26 19:08] VITALS: BP 125/74; O2SAT 99
--- NOTE | 2022-10-27 15:50 | EKG ---
Test Date: 2022-10-26 Test Time: 16:51:04 Help Aid: [facility] MEASUREMENT RESULTS: Intervals: Rate: 113 GA: 188 QRSD: 136 QT: 394 QTc: 540 [place]: P: GA: 188 QRS: -89 T: 72 INTERPRETIVE STATEMENTS: Sinus tachycardia with premature atrial complexes Left axis deviation Right bundle branch block Inferior infarct, age undetermined Abnormal ECG Compared to ECG 10/23/2022 08:29:31 No significant changes Electronically Signed On 10-27-22 15:49:18 DETAILER FURNITURE by Gianluca Garcia
== END 2022-10-26 19:00 | disposition home or self-care (01) ==
LOC: ER 16:32
DX: R07.89 Other chest pain (principal); I50.40 Unspecified combined systolic (congestive) and diastolic (congestive) heart failure; J44.9 Chronic obstructive pulmonary disease, unspecified; I48.91 Unspecified atrial fibrillation; Z79.01 Long term (current) use of anticoagulants; E11.9 Type 2 diabetes mellitus without complications; Z79.4 Long term (current) use of insulin; F17.210 Nicotine dependence, cigarettes, uncomplicated
CPT/HCPCS: 36415; 71045; 80048; 83880; 84484; 85025; 85610; 93005; 96374; 99284

== ENCOUNTER 2022-10-29 16:52 | Emergency (ER) | payer OTHER ==
--- OUTSIDE RECORDS SUMMARY | 2022-10-29 16:59 | XMS REPORT | Continuity of Care Document ---
:1950 Author Organization [facility] t Address [address] [place] [address] Care Team Providers Name Role Phone Pcp, Patient Does Not Have A Primary Care Physician [phone] Attending Clinician Unavailable Meghana Ayala Attending Clinician Unavailable Jose Kim Rahil Attending Clinician Unavailable La Foster RN Attending Clinician Unavailable Charlene Butt DO Attending Clinician Atul Stephens MD Attending Clinician Berna Alcantar MD Attending Clinician [phone] BERNA ALCANTAR Attending Clinician Unavailable Orlando Cannon MD Attending Clinician [id number] Admitting Clinician Unavailable Jose Kim Rahil Admitting Clinician Unavailable Berna Alcantar MD Admitting Clinician [phone] BERNA ALCANTAR Admitting Clinician Unavailable Payers Payer Name Policy Type Policy Number Effective Date Expiration Date S cindy [facility] [id number] Problems Condition Condition Condition Status Onset Resolution [...] diabetes 07-21 ity of mellitus mellitus 00:00: [place] without without 00 Medical complicati complicati Br [...] Added automatic ally from request for surgery [id number] CHF CHF Problem Active Common (congestiv (congestiv Sp anabela e heart e heart - [facility] failure) failure) [facility] Hypertensi Hypertensi Problem Active C ommon on on Spirit - [facility] Diabetes Diabetes Problem Active Commo n type 2, type 2, Spirit controlled controlled - [facility] COPD COPD Problem Active Common (chronic (chronic Spirit obstructiv obstructiv - [facility] e e St pulmonary pulmonary [place] s disease) disease) [facility] Nicotine Nicotine Problem Active Commo n dependence dependence Sp anabela - [facility] Seasonal Seasonal Problem Active Commo n allergic allergic [facility] rhinitis rhinitis - [facility] Adjustment Adjustment Problem Active C ommon disorder disorder Spirit with with - [facility] depressed depressed St mood mood [facility] Chronic Chronic Problem Active Common fatigue fatigue Spirit - [facility] Type 2 Type 2 Problem Active [...] Active Univers ALLERGIE Class ity of S [facility] Social History Social Habit Start Date Stop Date Quantity Comments Source History of Cigarette Smoker Universi ty of tobacco use [place] [facility] [place] History [facility] Food 2022-07-29 2022-07-29 1 Univers ity of Worry 00:00:00 00:00:00 [place] [facility] History SDOH Food 2022-07-29 2022-07-29 1 Univers ity of Scarcity 00:00:00 00:00:00 [place] [facility] History SDOH 2022-07-29 2022-07-29 2 University o f Transport Med 00:00:00 00:00:00 [place] Medic al [facility] History [facility] 2022-07-29 2022-07-29 2 University o f Transport Non-Med 00:00:00 00:00:00 [facility] edical Branch Tobacco use and 2022-07-21 2022-07-21 Smokeless tobacco Un iversity of exposure 00:00:00 00:00:00 non-user [facility] Exposure to 2022-07-10 2022-07-20 Not sure [facility] SARS-CoV-2 00:00:00 10:56:00 [facility] (event) Branch Sex Ass[birth year] At [birth year] Universit y of 00:00:00 00:00:00 [facility] Smoking Status Start Date Stop Date Source Smokes tobacco daily 2022-07-21 00:00:00 Univers ity of [facility] Medications Ordered Filled Start Stop [...] Until Discontinu ed, Routine furosemide 2021-0 Yes [id number] 40mg Take 1 Univers 40 mg 9-18 tablet by ity of tablet 00:00: mouth in [place] 00 the Medical morning Branch and 1 tablet in the evening. metoprolol 2021-0 Yes [id number] 50mg Take 1 Univers succinate 9-18 tablet by ity o f XL 50 mg 24 00:00: [place] hr tablet 00 the Medical morning. Branch spironolact 2021-0 Yes [id number] 25mg Take 1 Univers one 25 mg 9-18 tablet by ity o f tablet 00:00: mouth in [place] 00 the Medical morning. Branch furosemide 2021-0 Yes [id number] 40mg Take 1 Univers 40 mg 9-18 tablet by ity of tablet 00:00: mouth in [place] 00 the Medical morning Branch and 1 tablet in the evening. metoprolol 2021-0 Yes [id number] 50mg Take 1 Univers succinate 9-18 tablet by ity o f XL 50 mg 24 00:00: [place] tablet 00 the Medical morning. Branch spironolact 2021-0 Yes [id number] 25mg Take 1 Univers one 25 mg 9-18 tablet by ity o f tablet 00:00: mouth in [place] 00 the Medical morning. Branch furosemide 2021-0 Yes [id number] 40mg Take 1 Univers 40 mg 9-18 tablet by ity of tablet 00:00: mouth in [place] 00 the Medical morning Branch and 1 tablet in the evening. metoprolol 2021-0 Yes [id number] 50mg Take 1 Univers succinate 9-18 tablet by ity o f XL 50 mg 24 00:00: [place] hr tablet 00 the Medical morning. Branch spironolact 2021-0 Yes [id number] 25mg Take 1 Univers one 25 mg 9-18 tablet by ity o f tablet 00:00: mouth in [place] 00 the Medical morning. Branch aspirin 2-0 [...] by ity o f 21:46: mouth in [place] 23 the Medical morning. Branch montelukast Yes 1{tbl} Take 1 Un rita 10 mg 9-17 tablet by ity of tablet 21:46: mouth in [place] 23 the Medical morning. Branch albuterol Yes 2{puff} Take 2 Uni vers sulfate 9-17 Puffs by ity of (PROAIR 21:46: mouth as [place] RESPICLICK) 23 needed for Me dical 90 Cough. Branch mcg/actuati Cough, on AePB wheezing aspirin Yes 81mg Take 81 mg Univ ers (ASPIR-LOW 9-17 by mouth 2 ity of ORAL) 21:46: (two) [place] [address] times Medical daily. Branch insulin Yes 15U inject 15 Unive rs glargine,hu 9-17 Units ity of m.rec.anlog 21:46: under the [place] (LANTUS 23 skin. Medical U-100 Branch INSULIN SC) losartan 25 Yes 1{tbl} Take 1 Un rita mg tablet 9-17 tablet by ity o f 21:46: mouth in [place] 23 the Medical morning. Branch montelukast Yes 1{tbl} Take 1 Un rita 10 mg 9-17 tablet by ity of tablet 21:46: mouth in [place] 23 the Medical morning. Branch albuterol Yes 2{puff} Take 2 Uni vers sulfate 9-17 Puffs by ity of (PROAIR 21:46: mouth as [place] RESPICLICK) 23 needed for Me dical 90 Cough. Branch mcg/actuati Cough, on AePB wheezing aspirin Yes 81mg Take 81 mg Univ ers (ASPIR-LOW 9-17 by mouth 2 ity of ORAL) 21:46: (two) [place] 23 times Medical daily. Branch insulin Yes 15U inject 15 Unive rs glargine,hu 9-17 Units ity of m.rec.anlog 21:46: under the [place] (LANTUS 23 skin. Medical U-100 Branch INSULIN SC) losartan 25 Yes 1{tbl} Take 1 Un rita mg tablet 9-17 tablet by ity o f 21:46: mouth in [place] 23 the Medical morning. Branch montelukast Yes 1{tbl} Take 1 Un rita 10 mg 9-17 tablet by ity of tablet 21:46: mouth in [place] 23 the Medical morning. Branch albuterol Yes 2{puff} Take 2 Uni vers sulfate 9-17 Puffs by ity of (PROAIR 21:46: mouth as [place] RESPICLICK) 23 needed for Me dical 90 [...] Branch 07/26/22 at 2030, Routine atorvastati Yes [id number] 40mg Take 1 Univers n 40 mg -17 tablet by ity of tablet 00:00: mouth at [place] 00 bedtime. Medical Branch apixaban Yes [id number] 5mg Take 1 Univers (ELIQUIS) 5 9-17 tablet by ity of mg tablet 00:00: [place] 00 the Medical morning Branch and 1 tablet in the evening. Indication s: atrial fibrillati on atorvastati Yes [id number] 40mg Take 1 Univers n 40 mg 9-17 tablet by ity of tablet 00:00: mouth at [place] 00 bedtime. Medical Branch apixaban Yes 1358 5mg Take 1 Univers (ELIQUIS) 5 9-17 tablet by ity of mg tablet 00:00: [place] 00 the Medical morning Branch and 1 tablet in the evening. Indication s: atrial fibrillati on atorvastati Yes [id number] 40mg Take 1 Univers n 40 mg 9-17 tablet by ity of tablet 00:00: mouth at [place] 00 bedtime. Medical Branch apixaban Yes 1358 [...] ed insulin 2021- No 15U 15 Units, [facility] ers glargine 07-26 Subcutaneo ity of (LANTUS [...] magnesium 2021- No 2g 2 g, IV [facility] ers sulfate in 07-26 Piggyback, it y [...] on Fri07/25/22 at 0900, Until Discontinu ed, LROI insulin 2021- No 13U 13 Units, Univ [...] 1000, Routine metoprolol Yes 50mg 50 mg, [facility] succinate 07-24 Oral, ity of XL (TOPROL 14:15: DAILY, [place] XL) tablet 00 First dose Med ical 50 mg on Wed Branch 07/24/22 at 0915, Until Discontinu ed, Routine metoprolol 2021- No 50mg 50 mg, [facility] ers succinate 07-24 Oral, ity of XL (TOPROL 14:15: 04:46 DAILY, [facility] s XL) tablet 00 :24 First [...] Rang e, Dosing and Testing: &nbs p;FOR [place], [facility], AND [facility]ES ONLY - aPTT < 35: [...] Rang e, Dosing and Testing: &nbs p;[facility], AND [facility] CAMPUSES ONLY - [...] 53 Starting Medi jose tablet 1 on [facility] tablet 07/23/22 at 1031, Until Discontinu ed, Routine, Pain (scale 4-6) HYDROcodone 2021-0 2021- No 1{tbl} 1 tablet, Univers -acetaminop 07-23-18 Oral, ity of hen (NORCO 15:31: 04:46 Q6HPRN, [place] as 5) 5-325 mg 53 :24 Starting Medi jose tablet 1 on Fri [place] tablet 07/23/22 at 1031, Until 07/27/22 [...] [place] mg 00 First dose Medical on [facility] 07/22/22 at 0900, Until Discontinu ed, Routine montelukast Yes 10mg 10 mg, Univ ers (SINGULAIR) 07-22 Oral, ity of tablet 10 14:00: DAILY, [place] mg 00 First dose Medical on [facility] 07/22/22 at 0900, Until Discontinu ed, Routine spironolact 2021- No 25mg 25 mg, Uni vers one 07-22 Oral, ity of (ALDACTONE) 14:00: 04:46 DAILY, [place] as tablet 25 00 :24 First dose Medi jose mg on [facility] 07/22/22 at 0900, Until Discontinu ed, Routine aspirin No 81mg 81 mg, Univers chewable 07-22 Oral, ity of tablet 81 14:00: 04:46 DAILY, [place] mg 00 :24 First dose Medical on [facility] 07/22/22 at 0900, Until Discontinu ed, Routine losartan 2021- No 25mg 25 mg, Univer s (COZAAR) 07-22 Oral, ity of tablet 25 14:00: 04:46 DAILY, [place] mg 00 :24 First dose Medical on [facility] 07/22/22 at 0900, Until Discontinu ed, Routine montelukast No 10mg 10 mg, Uni vers (SINGULAIR) 07-22 Oral, ity of tablet 10 14:00: 04:46 DAILY, [place] mg 00 :24 First dose Medical on [facility] 07/22/22 at 0900, Until Discontinu ed, Routine metoprolol No 50mg 50 mg, Univ ers tartrate 07-22 Oral, BID ity o f (LOPRESSOR) 13:00: 14:10 MEALS, [place] as tablet 50 00 :14 First dose Medi jose mg on [facility] 07/22/22 at 0800, Until Discontinu ed, Routine atorvastati Yes 40mg 40 mg, Univ ers n (LIPITOR) 07-22 Oral, QHS, it y of tablet 40 02:00: First dose [place] mg [facility] on [facility] 07/21/22 at Branch 2100, Until Discontinu ed, Routine atorvastati 2021- No 40mg 40 mg, Uni vers n (LIPITOR) 07-22 Oral, QHS, i ty of tablet 40 02:00: 04:46 First dose [place] mg 00 :24 on [facility] 07/21/22 at Branch 2100, Until Discontinu ed, Routine morpHINE (2 2021- No 2mg 2 mg, Slow Univers mg/mL) 07-22 IV Push, ity of injection 2 01:29: 15:32 Q6HPRN, [place] mg 07 :09 Starting Medical on [facility] 07/21/22 at 2029, Until 07/23/22 at 1032, Routine, Chest pain furosemide 2021- No 20mg 20 mg, IV U nivers (LASIX) 07-22 Push, ity of injection 01:00: 05:27 Q12H, [place] 20 mg 00 :42 First dose Medical (after Branch last reorder) on [facility] 07/21/22 at 2000, Until Discontinu ed, LORI enoxaparin 2021- No 1mg/kg 100 mg Un rita (LOVENOX) 07-22 (rounded ity o f injection 01:00: 05:30 [place] 98.5 [place] 100 mg 00 :31 mg = 1 Medical mg/kg Branch ?98.5 kg), Subcutaneo us, Q12H, First dose (after last modificati on) on [facility] 07/21/22 at 2000, Until Discontinu ed, Routine sulfur 2021- No [id number] 5mL 5 mL, Unive rs hexafluorid 07-21 Intravenou i ty of e microsphr 15:45: 15:45 s, ONCE, 1 [place] (LUMASON) 00 :00 dose, On Medica l injection 5 Sun Branch mL 07/21/22 at 1045, Routine
membership advisor approving Restricted medication : ANA LUISA GRIMM [...] dose [place] Lispro 00 :26 on [facility] Medical (HumaLOG) + 07/20/22 at Br anch Fsbg 1900, Testing Until Discontinu ed, Routine glucagon Yes 1mg 1 mg, Univers (GLUCAGEN 07-20 Intramuscu ity of DIAGNOSTIC 23:48: lar, PRN, [place] KIT) 16 Starting Medical injection 1 on [facility] Branch 07/20/22 at 1848, Until Discontinu ed, LORI, Blood Glucose < or = 70 mg/dL and patient is unable to swallow or has mental changes. dextrose 50 Yes 25mL 25 mL, Univ ers % in water 07-20 Slow IV ity of (D50W) 23:48: Push, PRN, [place] injection 16 Starting Medica l 25 mL on [facility] Branch 07/20/22 at 1848, Until Discontinu ed, LORI, Blood Glucose < or = 70 mg/dL and patient is unable to swallow or has mental status changes. glucagon 2021- No 1mg 1 mg, Univers (GLUCAGEN 07-2018 Intramuscu ity of DIAGNOSTIC 23:48: 04:46 lar, PRN, [place] KIT) 16 :24 Starting Medical injection 1 on [facility] Branch mg 07/20/22 at 1848, Until 07/27/22 [...] status changes. metoprolol No 25mg 25 mg, [facility] ers tartrate 07-20 Oral, Q6H, ity [...] 00 :00 dose, On Medica l mg [facility] Branch 07/20/22 at 1300, LORI furosemide 2021- [...] [place] mg 00 :00 dose, On Medical [facility] Branch 07/20/22 at 1115, LORI Trelegy Trelegy 2020- No Meghana 1 puff Com mon Ellipta Ellipta 2-12 06-11 [place] [facility] 00:00: 00:00 - [facility] 00 :00 [facility] HydrOXYzine HydrOXYzine Yes Meghana 1 tablet Common HCl HCl 05-11 [place] as needed Spirit 00:00: - [facility] 00 [facility] Ozempic Ozempic 2020- No Meghana 0.5 mg Com mon 05-11 0824 [place] [facility] 00:00: 00:00 - [facility] 00 :00 [facility] Rae Mcbride Yes Meghana as Common 1-02 [place] directed Spirit 00:00: - [facility] 00 [facility] ProAir ProAir Yes Meghana 2 puffs as Comm on RespiClick RespiClick [place] needed [facility] [place] 3 [place] 3 Yes Meghana 1 capsule Com mon [place] [facility] Montelukast Montelukast Yes Meghana 1 tablet Common Sodium Sodium [place] in the [facility] evening [facility] Lipitor Lipitor Yes Meghana 1 tablet Comm on [place] [facility] Losartan Losartan Yes Meghana 1 tablet Co mmon Potassium Potassium [place] Spir it [facility] Metoprolol Metoprolol Yes Meghana 1 tablet Common Tartrate Tartrate [place] with food S pirit [facility] Metformin Metformin Yes Meghana 1 tablet Common HCl HCl [place] with a Spirit meal [facility] Immunizations Ordered Immunization Filled Immunization Date Status Commen ts Source Name Name FLUZONE HIGH DOSE FLUZONE HIGH DOSE 2019-09-14 Completed [place] Spirit OVER 65 OVER 65 00:00:00 [facility] Vital Signs Vital Name Observation Time Observation Value Comments Source Systolic blood 2022-07-28 01:43:00 99 mm[Hg] Univer sity of pressure [facility] Diastolic blood 2022-07-28 01:43:00 58 mm[facility]Hg] [facility] 2022-07-28 01:40:00 97 /min [facility] Body temperature 2022-07-28 01:40:00 36.56 Melvi [facility] 2022-07-28 01:40:00 18 /min General acute hospital Oxygen saturation in 2022-07-28 01:40:00 90 /min [facility] Arterial blood by [facility] Pulse oximetry Branch Body height 2022-07-26 17:49:00 172.7 cm [facility] Body weight 2022-07-26 17:49:00 96.163 kg [facility] BMI 2022-07-26 17:49:00 32.23 kg/m2 [facility] Systolic blood 2022-07-26 23:31:00 102 mm[Hg] Univer sity of pressure [facility] Diastolic blood 2022-07-26 23:31:00 59 mm[Hg] Unive rsity of [facility] Heart rate 2022-07-26 23:31:00 85 /min [facility] Body temperature 2022-07-26 23:31:00 36.56 Melvi [facility] Respiratory rate 2022-07-26 23:24:00 19 /min General acute hospital Oxygen saturation in 2022-07-26 23:24:00 93 /min [facility] Arterial blood by [facility] Pulse oximetry [place] Body height 2022-07-26 17:49:00 172.7 cm [facility] Body weight 2022-07-26 17:49:00 96.163 kg [facility] BMI 2022-07-26 17:49:00 32.23 kg/m2 [facility] Procedures Procedure Date / Time Performing Clinician Source Performed POCT GLUCOSE (AUTOMATED) 2022-07-27 16:45:00 Berna Alcantar [facility] POCT GLUCOSE (AUTOMATED) 2022-07-27 16:45:00 Berna Alcantar [facility] MAGNESIUM 2022-07-27 10:46:00 [facility] BASIC METABOLIC PANEL (NA, 2022-07-27 10:46:00 Flora Fox [facility] K, CL, CO2, GLUCOSE, BUN, Medica l Branch CREATININE, CA) N-TERMINAL PRO-BNP 2022-07-27 10:46:00 [facility] 2022-07-27 10:46[facility] (NA, 2022-07-27 10:46:00 [facility], CL, CO2, GLUCOSE, BUN, Medica l Branch CREATININE, CA) N-TERMINAL PRO-BNP 2022-07-27 10:46:00 Flora Fox of [facility] POCT GLUCOSE (AUTOMATED) 2022-07-27 10:38:00 Keo Alcantarm Uni versity of [facility] POCT GLUCOSE (AUTOMATED) 2022-07-27 10:38:00 KhbettyfeKeom Uni versity of [facility] POCT GLUCOSE (AUTOMATED) 2022-07-27 04:51:00 KhbettyfeKeom Uni versity of [facility] POCT GLUCOSE (AUTOMATED) 2022-07-27 04:51:00 Keo Alcantarm Uni versity of [facility] POCT GLUCOSE (AUTOMATED) 2022-07-27 01:10:00 Keo Alcantarm Uni versity of [facility] POCT GLUCOSE (AUTOMATED) 2022-07-27 01:10:00 KhbettyfeDavidsam Uni versity of [facility] POCT GLUCOSE (AUTOMATED) 2022-07-26 23:37:00 Keo Alcantarm Uni versity of [facility] POCT GLUCOSE (AUTOMATED) 2022-07-26 23:37:00 Keo Alcantarm Uni versity of [facility] ACTIVATED PARTIAL THRMPLAS 2022-07-26 23:10:00 [facility] ACTIVATED PARTIAL THRMPLAS 2022-07-26 23:10:00 [facility]io [facility] CARDIAC CATHETERIZATION 2022-07-26 21:16:04 Sherman [facility] ersity of [facility] CARDIAC CATHETERIZATION 2022-07-26 21:16:04 Sherman [facility] ersity of [facility] CARDIAC CATHETERIZATION 2022-07-26 21:16:04 Sherman [facility] ersity of [facility] CARDIAC CATHETERIZATION 2022-07-26 21:16:04 [facility] CARDIAC CATHETERIZATION 2022-07-26 21:16:04 Sherman [facility] ersity of [facility] CARDIAC CATHETERIZATION 2022-07-26 21:16:04 Sherman [facility] ersity of [facility] CARDIAC CATHETERIZATION 2022-07-26 21:16:04 Sherman [facility] ersity of [facility] CARDIAC CATHETERIZATION 2022-07-26 21:16:04 Sherman [facility] ersity of [facility] CATH PROCEDURE LOG 2022-07-26 20:55:04 Sherman [facility] of [facility] CATH PROCEDURE LOG 2022-07-26 20:55:04 Sherman [facility] of [facility] POCT GLUCOSE (AUTOMATED) 2022-07-26 16:20:00 Berna Alcantar Uni versity of [facility] POCT GLUCOSE (AUTOMATED) 2022-07-26 16:20:00 Berna Alcantar Uni versity of [facility] POCT GLUCOSE (AUTOMATED) 2022-07-26 12:30:00 Berna Alcantar Uni versity of [facility] POCT GLUCOSE (AUTOMATED) 2022-07-26 12:30:00 Berna Alcantar Uni versity of [facility] POCT GLUCOSE (AUTOMATED) 2022-07-26 11:08:00 Berna Alcantar Uni versity of [facility] POCT GLUCOSE (AUTOMATED) 2022-07-26 11:08:00 Berna Alcantar Uni versity of [facility] POCT GLUCOSE (AUTOMATED) 2022-07-26 08:52:00 Berna Alcantar Uni versity of [facility] POCT GLUCOSE (AUTOMATED) 2022-07-26 08:52:00 Berna Alcantar Uni versity of [facility] MAGNESIUM 2022-07-26 05:35:00 [facility] BASIC METABOLIC PANEL (NA, 2022-07-26 05:35:00 Tobias [facility] K, CL, CO2, GLUCOSE, BUN, Medica l Branch CREATININE, CA) ACTIVATED PARTIAL THRMPLAS 2022-07-26 05:35:00 Evelio Soni [facility] EXTRA TUBE LAV 2022-07-26 05:35:00 [facility] MAGNESIUM 2022-07-26 05:35:00 Tobias [facility] BASIC METABOLIC PANEL (NA, 2022-07-26 05:35:00 Tobias [facility] K, CL, CO2, GLUCOSE, BUN, Medica l Branch CREATININE, CA) ACTIVATED PARTIAL THRMPLAS 2022-07-26 05:35:00 Evelio Soni [facility] EXTRA TUBE LAV 2022-07-26 05:35:00 Sherman [facility] POCT GLUCOSE (AUTOMATED) 2022-07-26 05:20:00 Berna [facility]antar [facility] PO[facility]SE ([facility]OMATED) 2022-07-26 05:20:00 [facility] PO[facility]SE (AUTOMATED) 2022-07-26 01:45:00 [facility] PO[facility]SE (AUTOMATED) 2022-07-26 01:45:00 [facility]antar [facility] MAGNES[facility]UM 2022-07-25 22:15:00 Tobias [facility] BASIC METABOLIC PANEL (NA, 2022-07-25 22:15:00 Tobias [facility] K, CL, CO2, GLUCOSE, BUN, Medica l Branch CREATININE, CA) ACTIVATED PARTIAL THRMPLAS 2022-07-25 22:15:00 Evelio Soni [facility] MAGNESIUM 2022-07-25 22:15:00 Tobias [facility] BASIC METABOLIC PANEL (NA, 2022-07-25 22:15:00 Tobias [facility] K, CL, CO2, GLUCOSE, BUN, Medica l Branch CREATININE, CA) ACTIVATED PARTIAL THRMPLAS 2022-07-25 22:15:00 Evelio Soni niversalberto [facility] POCT GLUCOSE (AUTOMATED) 2022-07-25 21:22:00 Berna Alcantar Uni versity of [facility] POCT GLUCOSE (AUTOMATED) 2022-07-25 21:22:00 Berna Alcantar Uni versity of [facility] POCT GLUCOSE (AUTOMATED) 2022-07-25 20:46:00 Berna Alcantar Uni versity of [facility] POCT GLUCOSE (AUTOMATED) 2022-07-25 20:46:00 Berna Alcantar Uni versity of [facility] POCT GLUCOSE (AUTOMATED) 2022-07-25 17:09:00 Berna Alcantar Uni versity of [facility] POCT GLUCOSE (AUTOMATED) 2022-07-25 17:09:00 Berna Alcantar Uni versity of [facility] HB ECG ROUTINE & RHYTHM 2022-07-25 14:53:13 Berna Collado Uni versity of [facility] ACTIVATED PARTIAL THRMPLAS 2022-07-25 14:53:00 [facility]IV[facility] PARTIAL THRMPLAS 2022-07-25 14:53:00 Evelio Soni niversalberto [facility] POCT GLUCOSE (AUTOMATED) 2022-07-25 13:12:00 Berna Alcantar Uni versity of [facility] POCT GLUCOSE (AUTOMATED) 2022-07-25 13:12:00 Berna Alcantar Uni versity of [facility] MAGNESIUM 2022-07-25 11:36:00 Tobias [facility] BASIC METABOLIC PANEL (NA, 2022-07-25 11:36:00 Tobias [facility] K, CL, CO2, GLUCOSE, BUN, Medica l Branch CREATININE, CA) CBC WITH DIFF 2022-07-25 11:36:00 Tobias [facility] MAGNESIUM 2022-07-25 11:36:00 Tobias [facility] BASIC METABOLIC PANEL (NA, 2022-07-25 11:36:00 Tobias [facility] K, CL, CO2, GLUCOSE, BUN, Medica l Branch CREATININE, CA) CBC WITH DIFF 2022-07-25 11:36:00 Tobias [facility] ACTIVATED PARTIAL THRMPLAS 2022-07-25 05:15:00 Evelio Soni [facility] ACTIVATED PARTIAL THRMPLAS 2022-07-25 05:15:00 [facility]) 2022-07-25 01:58:00 Berna Alcantar [facility] POCT GLUCOSE (AUTOMATED) 2022-07-25 01:58:00 Berna Alcantar [facility] MAGNESIUM 2022-07-24 22:34:00 Tobias [facility] BASIC METABOLIC PANEL (NA, 2022-07-24 22:34:00 Tobias [facility] K, CL, CO2, GLUCOSE, BUN, Medica l Branch CREATININE, CA) ACTIVATED PARTIAL THRMPLAS 2022-07-24 22:34:00 Evelio Soni [facility] MAGNESIUM 2022-07-24 22:34:00 Tobias [facility] BASIC METABOLIC PANEL (NA, 2022-07-24 22:34:00 Tobias [facility] K, CL, CO2, GLUCOSE, BUN, Medica l Branch CREATININE, CA) ACTIVATED PARTIAL THRMPLAS 2022-07-24 22:34:00 Evelio Soni [facility] POCT GLUCOSE (AUTOMATED) 2022-07-24 20:43:00 Berna Alcantar [facility] POCT GLUCOSE (AUTOMATED) 2022-07-24 20:43:00 Berna Alcantar Uni versity of [facility] POCT GLUCOSE (AUTOMATED) 2022-07-24 17:11:00 Berna Alcantar Uni versity of [facility] POCT GLUCOSE (AUTOMATED) 2022-07-24 17:11:00 Berna Alcantar Uni versity of [facility] POCT GLUCOSE (AUTOMATED) 2022-07-24 14:11:00 Berna Alcantar Uni versity of [facility] POCT GLUCOSE (AUTOMATED) 2022-07-24 14:11:00 Berna Alcantar Uni versity of [facility] ACTIVATED PARTIAL THRMPLAS 2022-07-24 11:37:00 [facility] ACTIVATED PARTIAL THRMPLAS 2022-07-24 11:37:00 [facility] MAG[facility]UM 2022-07-24 05:51:00 Evelio Soni [facility] BASIC METABOLIC PANEL (NA, 2022-07-24 05:51:00 [facility], CO2, GLUCOSE, BUN, Medica l Branch CREATININE, CA) PROTHROMBIN TIME / INR 2022-07-24 05:51:00 Evelio Soni [facility] ACTIVATED PARTIAL THRMPLAS 2022-07-24 05:51:00 Evelio Soni [facility] MAGNESIUM 2022-07-24 05:51:00 Evelio Soni [facility] BASIC METABOLIC PANEL (NA, 2022-07-24 05:51:00 [facility], CO2, GLUCOSE, BUN, Medica l Branch CREATININE, CA) PROTHROMBIN TIME / INR 2022-07-24 05:51:00 Evelio Soni [facility] ACTIVATED PARTIAL THRMPLAS 2022-07-24 05:51:00 Evelio Soni [facility] POCT GLUCOSE (AUTOMATED) 2022-07-24 01:53:00 Atul Stephens [facility] POCT GLUCOSE (AUTOMATED) 2022-07-24 01:53:00 Atul Stephens [facility] POCT GLUCOSE (AUTOMATED) 2022-07-23 21:31:00 Atul Stephens [facility] POCT GLUCOSE (AUTOMATED) 2022-07-23 21:31:00 Atul Stephens [facility] POCT GLUCOSE (AUTOMATED) 2022-07-23 17:08:00 Atul Stephens [facility] ([facility]OMATED) 2022-07-23 17:08:00 Atul Stephens [facility] POCT GLUCOSE (AUTOMATED) 2022-07-23 12:46:00 Atul Stephens [facility] POCT GLUCOSE (AUTOMATED) 2022-07-23 12:46:00 Atul Stephens [facility] MAGNESIUM 2022-07-23 09:15:[address] [facility]OLIC PANEL (NA, 2022-07-23 09:15:00 [facility], [facility], CO2, GLUCOSE, BUN, Medica l Branch CREATININE, CA) CBC WITH DIFF 2022-07-23 09:15:[address] [facility] N-TERMINAL PRO-BNP 2022-07-23 09:15:00 George Vizcaino [facility] MAGNESIUM 2022-07-23 09:15:[address] [facility] BASIC METABOLIC PANEL (NA, 2022-07-23 09:15:00 [facility] K, CL, CO2, GLUCOSE, BUN, Medica l Branch CREATININE, CA) CBC WITH DIFF 2022-07-23 09:15:[address] [facility] N-TERMINAL PRO-BNP 2022-07-23 09:15:00 George Vizcaino [facility] POCT GLUCOSE (AUTOMATED) 2022-07-23 02:12:00 Atul Stephens Uni [facility] POCT GLUCOSE (AUTOMATED) 2022-07-23 02:12:00 Atul Stephens [facility] POCT GLUCOSE (AUTOMATED) 2022-07-22 21:12:00 Atul Stephens [facility] POCT GLUCOSE (AUTOMATED) 2022-07-22 21:12:00 Atul Stephens [facility] POCT GLUCOSE (AUTOMATED) 2022-07-22 16:30:00 Atul Stephens [facility] POCT GLUCOSE (AUTOMATED) 2022-07-22 16:30:00 Atul Stephens [facility] POCT GLUCOSE (AUTOMATED) 2022-07-22 12:51:00 Atul Stephens [facility] POCT GLUCOSE (AUTOMATED) 2022-07-22 12:51:00 Atul Stephens [facility] PHOSPHORUS 2022-07-22 08:19:00 Atul Stephens [facility] MAGNESIUM 2022-07-22 08:19:00 Angelo [facility] HEPATIC FUNCTION PANEL 2022-07-22 08:19:00 Atul Stephens [facility] ([id number]) (ALB,T.PRO,BILI Medical Branch T,BU/BC,ALT,AST,ALK PHOS) BASIC METABOLIC PANEL (NA, 2022-07-22 08:19:00 Atul Stephens [facility] K, CL, CO2, GLUCOSE, BUN, Medica l Branch CREATININE, CA) CBC WITH DIFF 2022-07-22 08:19:00 [facility] 2022-07-22 08:19:00 [facility] 2022-07-22 08:19:00 Atul Stephens [facility] MAGNESIUM 2022-07-22 08:19:00 Angelo [facility] HEPATIC FUNCTION PANEL 2022-07-22 08:19:00 Atul Stephens [facility] ([id number]) (ALB,T.PRO,BILI Medical Branch T,BU/BC,ALT,AST,ALK PHOS) BASIC METABOLIC PANEL (NA, 2022-07-22 08:19:00 Atul Stephens [facility] K, CL, CO2, GLUCOSE, BUN, Medica l Branch CREATININE, CA) CBC WITH DIFF 2022-07-22 08:19:00 Atul Stephens o f [facility] N-TERMINAL PRO-BNP 2022-07-22 08:19:00 [facility] ([facility]OMATED) 2022-07-22 01:44:00 Atul Setphens versalberto of [facility] POCT GLUCOSE (AUTOMATED) 2022-07-22 01:44:00 Atul Stephens versalberto of [facility] POCT GLUCOSE (AUTOMATED) 2022-07-21 21:52:00 Atul Stephens of [facility] POCT GLUCOSE (AUTOMATED) 2022-07-21 21:52:00 Atul Stephens versity of [facility] POCT GLUCOSE (AUTOMATED) 2022-07-21 16:43:00 Atul Stephens versalberto of [facility] POCT GLUCOSE (AUTOMATED) 2022-07-21 16:43:00 Atul Stephens [facility] TRANSTHORACIC ECHO (TTE) 2022-07-21 15:28:00 Atul Stephens [facility] W/ CONTRAST Medical [facility] TRANSTHORACIC ECHO (TTE) 2022-07-21 15:28:00 Atul Stephens [facility] W/ CONTRAST [facility] POCT GLUCOSE (AUTOMATED) 2022-07-21 15:00:00 Atul Stephens versalberto of [facility] POCT GLUCOSE (AUTOMATED) 2022-07-21 15:00:00 Atul Stephens versity of [facility] POCT GLUCOSE (AUTOMATED) 2022-07-21 13:04:00 Atul Stephens versalberto of [facility] POCT GLUCOSE (AUTOMATED) 2022-07-21 13:04:00 Atul [facility] MAGNESIUM 2022-07-21 09:41:00 Atul Stephens [facility] TROPONIN I 2022-07-21 09:41:00 Atul Stephens [facility] BASIC METABOLIC PANEL (NA, 2022-07-21 09:41:00 Atul Stephens [facility] K, CL, CO2, GLUCOSE, BUN, Medica l Branch CREATININE, CA) LIPID PANEL ([id number])(TOTAL 2022-07-21 09:41:00 Ana [facility]IG[facility], HDL) CBC WITH DIFF 2022-07-21 09:41:00 Angelo [facility] N-TERMINAL PRO-BNP 2022-07-21 09:41:00 Atul Stephens [facility] MAGNESIUM 2022-07-21 09:41:00 Angelo [facility] TROPONIN I 2022-07-21 09:41:00 Atul Stephens [facility] BASIC METABOLIC PANEL (NA, 2022-07-21 09:41:00 Atul Stephens [facility] K, CL, CO2, GLUCOSE, BUN, Medica l Branch CREATININE, CA) LIPID PANEL (73549)(TOTAL 2022-07-21 09:41:00 Ana Luisa Grimm [facility] CHOLESTEROL, Medical [place] TRIGLYCERIDES, HDL) CBC WITH DIFF 2022-07-21 09:41:00 Atul Stephens [facility] N-TERMINAL PRO-BNP 2022-07-21 09:41:00 Atul Stephens [facility] POCT GLUCOSE (AUTOMATED) 2022-07-21 04:09:00 Atul Stephens [facility] POCT GLUCOSE (AUTOMATED) 2022-07-21 04:09:00 Atul Stephens [facility] BLOOD CULTURE SCREEN 2022-07-21 01:45:00 Atul Stephens [facility] BLOOD CULTURE WORKUP 2022-07-21 01:45:00 Atul Stephens [facility] GRAM POSITIVE BLOOD 2022-07-21 01:45:00 Atul Stephens [facility] PATHOGENS DNA [facility] PROBE-AEROBIC BLOOD CULTURE SCREEN 2022-07-21 01:45:00 Atul Stephens [facility] BLOOD CULTURE WORKUP 2022-07-21 01:45:00 Atul Stephens [facility] GRAM POSITIVE BLOOD 2022-07-21 01:45:00 Atul Stephens [facility] PATHOGENS DNA [facility] PROBE-AEROBIC POCT GLUCOSE (AUTOMATED) 2022-07-21 01:26:00 Atul Stephens [facility] POCT GLUCOSE (AUTOMATED) 2022-07-21 01:26:00 Atul Stephens [facility] BLOOD CULTURE SCREEN 2022-07-20 23:43:00 Atul Stephens [facility] BLOOD CULTURE SCREEN 2022-07-20 23:43:00 Atul Stephens [facility] POCT GLUCOSE (AUTOMATED) 2022-07-20 22:24:00 Atul Stephens [facility] POCT GLUCOSE (AUTOMATED) 2022-07-20 22:24:00 Atul Stephens [facility] URINALYSIS 2022-07-20 17:41:00 Filomena [facility] URINALYSIS 2022-07-20 17:41:00 Filomena [facility] XR CHEST 1 VW 2022-07-20 16:16:00 Charlene Butt [facility] XR CHEST 1 VW 2022-07-20 16:16:00 Filomena [facility] TROPONIN I 2022-07-20 16:10:00 Filomena [facility] COMP. METABOLIC PANEL 2022-07-20 16:10:00 Charlene Butt [facility] ([id number]) [facility] CBC WITH DIFF 2022-07-20 16:10:00 Filomena [facility] GLYCOSYLATED HEMOGLOBIN 2022-07-20 16:10:00 Atul Stephens [facility] (A1C) Medical Branch PROTHROMBIN TIME / INR 2022-07-20 16:10:00 Charlene Butt [facility] ACTIVATED PARTIAL THRMPLAS 2022-07-20 16:10:00 Saniya Butt [facility] N-TERMINAL PRO-BNP 2022-07-20 16:10:00 Charlene Butt [facility] COVID-19 (ID NOW RAPID 2022-07-20 16:10:00 Charlene Butt [facility] TESTING) Medical Branch LAB ONLY COVID 2022-07-20 16:10:00 Charlene Butt [facility] TROPONIN I 2022-07-20 16:10:00 Charlene Butt [facility] COMP. METABOLIC PANEL 2022-07-20 16:10:00 Charlene Butt [facility] ([id number]) Medical Branch CBC WITH DIFF 2022-07-20 16:10:00 Charlene Butt [facility] GLYCOSYLATED HEMOGLOBIN 2022-07-20 16:10:00 Atul Stephens [facility] (A1C) Medical Branch PROTHROMBIN TIME / INR 2022-07-20 16:10:00 Charlene Butt [facility] ACTIVATED PARTIAL THRMPLAS 2022-07-20 16:10:00 Saniya Butt [facility] N-TERMINAL PRO-BNP 2022-07-20 16:10:00 Charlene Butt [facility] COVID-19 (ID NOW RAPID 2022-07-20 16:10:00 Charlene Butt [facility] TESTING) Medical Branch LAB ONLY COVID 2022-07-20 16:10:00 Charlene Butt [facility] INTERPRETATION [facility] Branch HB ECG ROUTINE & RHYTHM 2022-07-20 16:05:41 Charlene Butt [facility] HB ECG ROUTINE & RHYTHM 2022-07-20 16:05:41 Charlene Butt [facility] NOTICE OF PRIVACY 2022-07-20 15:52:39 Doctor Unassigned, [facility] [place] NOTICE OF PRIVACY 2022-07-20 15:52:39 Doctor Unassigned, [facility] HOSPITAL ADMISSION 2022-07-20 05:01:00 Doctor Unassigned, [facility] HOSPITAL ADMISSION 2022-07-20 05:01:00 Doctor Unassigned, [facility] [place] Encounters Start End Encounter Admission Attending Care Care Encounter Source Date/Time Date/Time Type Type Clinicians Facility Department ID 2022-09-03 Outpatient 3 [id number] [id number] [facility] 08:24:57 [facility] [place] 2022-09-02 Outpatient 3 [id number] ENC[facility] REF [id number] [facility] 14:07:05 [facility] [place] 2021-12-[address] [facility] [id number] Common 11:06:[id number] [facility] 2022-08-15 2022-08-28 Inpatient 3 Julio ENCPL CRD [id number] [facility] 18:17:00 12:00:00 Jose [facility] [place] 2022-07-29 2022-07-29 Transition ARIANE FosterKhaadr [id number] Univers 00:00:00 00:00:00 of Care La [place] [id number] it y of [place] [id number] [facility] 403 Branch 2022-07-20 2022-07-27 Hospital Charlene Butt 1.2.84 [id number] Univers 11:00:00 21:45:00 Encounter Atul Stephens [id number] [facility] 4.2.7.2 .686 [place] [id number] [facility] 089 Branch 2022-07-20 2022-07-27 Inpatient X SAL [facility] [id number] Univers 11:00:00 21:45:00 [facility] 2022-07-26 2022-07-26 Surgery JAMAL Cannon [id number] Univers 18:03:00 21:03:00 Orlando GORDON [id number] it y [facility] 4.2.7.2.686 Jonathan as [id number] [facility] 840 Branch 2020-04-04 2020-04-04 [facility] [id number] Common 13:00:00 13:00:[address] [facility] 2020-03-22 2020-03-22 [facility] [id number] Common 15:20:00 15:20:[address] [facility] 2019-12-22 2019-12-22 [facility] [id number] Common 10:40:00 10:40:[address] [facility] 2019-12-15 2019-12-15 [facility] [id number] Common 14:00:00 14:00:[address] [facility] 2019-09-14 2019-09-14 [facility] [id number] Common 13:20:00 13:20:[address] [facility] 2019-05-11 2019-05-11 [facility] [id number] Common 13:00:00 13:00:[address] [facility] 2018-11-11 2018-11-11 [facility] [id number] Common 13:00:00 13:00:[address] [facility] 2018-10-19 2018-10-19 [facility] [id number] Common 08:30:00 08:30:[address] [facility] 2018-04-22 2018-04-22 [facility] [id number] Common 14:00:00 14:00:[address] [facility] it Road [facility] Results Test Description Test Time Test Comments Results Result Comments Source POCT GLUCOSE (AUTOMATED) 2022-07-27 17:05:15 Test Item Value Reference Range Interpretation Comme nts POCT GLU (test code = 1870752802) 264 mg/dL 70-110 H Lab Interpretation (test code = 78348-3) Abnormal [facility]27 17:05:15 Test Item Value Reference Range Interpretation Comments POCT GLU (test code = 3562373035) 264 mg/dL 70-110 H Lab Interpretation (test code = Abnormal 68089-2) [facility] [id number] 15:17:32 Test Item Value Reference Range Interpretation Comments NT-proBNP (test code 1090 pg/mL See_Comment H [Autom ated = 1013872157) message] The system which generated this result transmitted reference range : <=125. The reference range was not used to interpret this result as normal/abnormal . ROSLYN (test code = ROSLYN) Biotin has been reported to cause a negative bias, interpret results relative to patient's use of biotin. Lab Interpretation Abnormal (test code = 40372-9) [facility] [id number] 15:17:32 Test Item Value Reference Range Interpretation Comments NT-proBNP (test code 1090 pg/mL See_Comment H [Autom ated = 7920601101) message] The system which generated this result transmitted reference range : <=125. The reference range was not used to interpret this result as normal/abnormal . ROSLYN (test code = ROSLYN) Biotin has been reported to cause a negative bias, interpret results relative to patient's use of biotin. Lab Interpretation Abnormal (test code = 22164-2) [facility]2022-[facility]-17 11:45:45 Test Item Value Reference Range Interpretation Comments MAGNESIUM (test code = 4134357313) 1.9 mg/dL 1.7-2.4 Lab Interpretation (test code = Normal 29567-3) [facility] (NA, K, CL, CO2, GLUCOSE, BUN, CREATININE, CA)2022-07-27 11:45:45 Test Item Value Reference Range Interpretation Comments NA (test code = 130 mmol/L 135-145 L 0815728928) K (test code = 4.1 mmol/L 3.5-5 4251042079) CL (test code = 89 mmol/L 98-108 L 2217284174) CO2 TOTAL (test code = 37 mmol/L 23-31 H 5365181644) AGAP (test code = 2-16 2588987682) BUN (test code = 32 mg/dL 7-23 H 4274976955) GLUCOSE (test code = 180 mg/dL 70-110 H 9952307654) CREATININE (test code = 0.81 mg/dL 0.6-1.25 1669633753) CALCIUM (test code = 8.5 mg/dL 8.6-10.6 L 4164866611) eGFR (test code = mL/min/1.73m2 7823912746) ROSLYN (test code = ROSLYN) Association of [...] tests). Lab Interpretation Abnormal (test code = 96685-7) [facility]2022-09-17 11:45:45 Test Item Value Reference Range Interpretation Comments MAGNESIUM (test code = 2331751968) 1.9 mg/dL 1.7-2.4 Lab Interpretation (test code = Normal 23059-6) [facility] (NA, K, CL, CO2, GLUCOSE, BUN, CREATININE, CA)2022-07-27 11:45:45 Test Item Value Reference Range Interpretation Comments NA (test code = 130 mmol/L 135-145 L 9481709467) K (test code = 4.1 mmol/L 3.5-5 5298981401) CL (test code = 89 mmol/L 98-108 L 7815890277) CO2 TOTAL (test code = 37 mmol/L 23-31 H 5550231399) AGAP (test code = 2-16 0943380525) BUN (test code = 32 mg/dL 7-23 H 9489562928) GLUCOSE (test code = 180 mg/dL 70-110 H 9939861975) CREATININE (test code = 0.81 mg/dL 0.6-1.25 8045830745) CALCIUM (test code = 8.5 mg/dL 8.6-10.6 L 8964346323) eGFR (test code = mL/min/1.73m2 0331768328) ROSLYN (test code = ROSLYN) Association of [...] tests). Lab Interpretation Abnormal (test code = 94681-1) [facility] GLUCOSE (AUTOMATED)2022-07-27 10:39:46 Test Item Value Reference Range Interpretation Comments POCT GLU (test code = 7904620666) 198 mg/dL 70-110 H Lab Interpretation (test code = Abnormal 03132-5) [facility] GLUCOSE (AUTOMATED)2022-07-27 10:39:46 Test Item Value Reference Range Interpretation Comments POCT GLU (test code = 8496380853) 198 mg/dL 70-110 H Lab Interpretation (test code = Abnormal 93251-9) [facility] GLUCOSE (AUTOMATED)2022-07-27 04:52:50 Test Item Value Reference Range Interpretation Comments POCT GLU (test code = 7343226978) 213 mg/dL 70-110 H Lab Interpretation (test code = Abnormal 09336-3) [facility] GLUCOSE (AUTOMATED)2022-07-27 04:52:50 Test Item Value Reference Range Interpretation Comments POCT GLU (test code = 3492875733) 213 mg/dL 70-110 H Lab Interpretation (test code = Abnormal 58081-6) [facility] GLUCOSE (AUTOMATED)2022-07-27 01:10:58 Test Item Value Reference Range Interpretation Comments POCT GLU (test code = 3969549537) 284 mg/dL 70-110 H Lab Interpretation (test code = Abnormal 40843-4) [facility] GLUCOSE (AUTOMATED)2022-07-27 01:10:58 Test Item Value Reference Range Interpretation Comments POCT GLU (test code = 8628867193) 284 mg/dL 70-110 H Lab Interpretation (test code = Abnormal 63091-4) [facility] GLUCOSE (AUTOMATED)2022-07-26 23:39:10 Test Item Value Reference Range Interpretation Comments POCT GLU (test code = 3251824943) 199 mg/dL 70-110 H Lab Interpretation (test code = Abnormal 66371-8) [facility] GLUCOSE (AUTOMATED)2022-07-26 23:39:10 Test Item Value Reference Range Interpretation Comments POCT GLU (test code = 4377543642) 199 mg/dL 70-110 H Lab Interpretation (test code = Abnormal 01730-6) [facility] (for use with Heparin Infusion)2022-07-26 23:32:33 Test Item Value Reference Range Interpretation Comments APTT Patient (test code = See_Comment [ Automated message] 3173-2) The system [employer] generated this result transmitted ref erence range: 26 - 36 Seconds. The re ference range was not u sed to interpret this result as normal/abnor mal. Lab Interpretation (test Normal code = 08909-4) [facility] (for use with Heparin Infusion)2022-07-26 23:32:33 Test Item Value Reference Range Interpretation Comments APTT Patient (test code = See_Comment [ Automated message] 3173-2) The system [employer] generated this result transmitted ref erence range: 26 - 36 Seconds. The re ference range was not u sed to interpret this result as normal/abnor mal. Lab Interpretation (test Normal code = 30897-1) [facility] GLUCOSE (AUTOMATED)2022-07-26 16:22:25 Test Item Value Reference Range Interpretation Comments POCT GLU (test code = 0506271862) 167 mg/dL 70-110 H Lab Interpretation (test code = Abnormal 74588-5) [facility] GLUCOSE (AUTOMATED)2022-07-26 16:22:25 Test Item Value Reference Range Interpretation Comments POCT GLU (test code = 0371557128) 167 mg/dL 70-110 H Lab Interpretation (test code = Abnormal 42849-7) [facility] GLUCOSE (AUTOMATED)2022-07-26 12:31:04 Test Item Value Reference Range Interpretation Comments POCT GLU (test code = 8674211600) 164 mg/dL 70-110 H Lab Interpretation (test code = Abnormal 36657-6) [facility] GLUCOSE (AUTOMATED)2022-07-26 12:31:04 Test Item Value Reference Range Interpretation Comments POCT GLU (test code = 9214126583) 164 mg/dL 70-110 H Lab Interpretation (test code = Abnormal 92156-6) [facility] GLUCOSE (AUTOMATED)2022-07-26 11:09:37 Test Item Value Reference Range Interpretation Comments POCT GLU (test code = 7177691538) 184 mg/dL 70-110 H Lab Interpretation (test code = Abnormal 37975-9) [facility] GLUCOSE (AUTOMATED)2022-07-26 11:09:37 Test Item Value Reference Range Interpretation Comments POCT GLU (test code = 7523218261) 184 mg/dL 70-110 H Lab Interpretation (test code = Abnormal 36775-9) [facility] GLUCOSE (AUTOMATED)2022-07-26 08:53:59 Test Item Value Reference Range Interpretation Comments POCT GLU (test code = 8652394118) 200 mg/dL 70-110 H Lab Interpretation (test code = Abnormal 07747-5) [facility] GLUCOSE (AUTOMATED)2022-07-26 08:53:59 Test Item Value Reference Range Interpretation Comments POCT GLU (test code = 7266222780) 200 mg/dL 70-110 H Lab Interpretation (test code = Abnormal 93668-6) [facility] GLUCOSE (AUTOMATED)2022-07-26 05:20:56 Test Item Value Reference Range Interpretation Comments POCT GLU (test code = 8962482486) 197 mg/dL 70-110 H Lab Interpretation (test code = Abnormal 75393-6) [facility] GLUCOSE (AUTOMATED)2022-07-26 05:20:56 Test Item Value Reference Range Interpretation Comments POCT GLU (test code = 5082060609) 197 mg/dL 70-110 H Lab Interpretation (test code = Abnormal 13260-8) [facility] [id number] 03:01:42 Test Item Value Reference Range Interpretation Comments Blood Culture-Aerobic No organisms No growth Previo us (test code = 84540-9) isolated prelim inary verified result was Culture [...] Culture-Anaerobic isolated preliminar y (test code = 51320-6) verifi ed result was Culture In Progress [...] CDT Lab Interpretation Normal (test code = 95632-5) [facility] CULTURE [id number] 03:01:42 Test Item Value Reference Range Interpretation Comments Blood Culture-Aerobic No organisms No growth Previo us (test code = 83309-4) isolated prelim inary verified result was Culture [...] Culture-Anaerobic isolated preliminar y (test code = 16332-6) verifi ed result was Culture In Progress [...] CDT Lab Interpretation Normal (test code = 35632-6) [facility]2022-07-26 01:46:28 Test Item Value Reference Range Interpretation Comments POCT GLU (test code = 9737229872) 142 mg/dL 70-110 H Lab Interpretation (test code = Abnormal 33046-8) [facility] GLUCOSE (AUTOMATED)2022-07-26 01:46:28 Test Item Value Reference Range Interpretation Comments POCT GLU (test code = 9981776907) 142 mg/dL 70-110 H Lab Interpretation (test code = Abnormal 61721-0) [facility] GLUCOSE (AUTOMATED)2022-07-25 21:23:27 Test Item Value Reference Range Interpretation Comments POCT GLU (test code = 0202646018) 159 mg/dL 70-110 H Lab Interpretation (test code = Abnormal 79998-6) [facility] GLUCOSE (AUTOMATED)2022-07-25 21:23:27 Test Item Value Reference Range Interpretation Comments POCT GLU (test code = 0562822796) 159 mg/dL 70-110 H Lab Interpretation (test code = Abnormal 70618-8) [facility] GLUCOSE (AUTOMATED)2022-07-25 20:47:32 Test Item Value Reference Range Interpretation Comments POCT GLU (test code = 6435936469) 151 mg/dL 70-110 H Lab Interpretation (test code = Abnormal 16210-9) [facility] GLUCOSE (AUTOMATED)2022-07-25 20:47:32 Test Item Value Reference Range Interpretation Comments POCT GLU (test code = 6676276460) 151 mg/dL 70-110 H Lab Interpretation (test code = Abnormal 37762-2) [facility] GLUCOSE (AUTOMATED)2022-07-25 17:16:01 Test Item Value Reference Range Interpretation Comments POCT GLU (test code = 8076775348) 389 mg/dL 70-110 H Lab Interpretation (test code = Abnormal 97139-0) [facility] GLUCOSE (AUTOMATED)2022-07-25 17:16:01 Test Item Value Reference Range Interpretation Comments POCT GLU (test code = 5052063898) 389 mg/dL 70-110 H Lab Interpretation (test code = Abnormal 75819-7) [facility] with [facility] Infusion[facility]2022-07-25 15:08:51 Test Item Value Reference Range Interpretation Comments APTT Patient (test code = See_Comment [ Automated message] 3173-2) The system [employer] generated this result transmitted ref erence range: 26 - 36 Seconds. The re ference range was not u sed to interpret this result as normal/abnor mal. Lab Interpretation (test Normal code = 57949-2) [facility]fusion[facility]2022-07-25 15:08:51 Test Item Value Reference Range Interpretation Comments APTT Patient (test code = See_Comment [ Automated message] 3173-2) The system [employer] generated this result transmitted ref erence range: 26 - 36 Seconds. The re ference range was not u sed to interpret this result as normal/abnor mal. Lab Interpretation (test Normal code = 41056-0) [facility] GLUCOSE (AUTOMATED)2022-07-25 13:22:34 Test Item Value Reference Range Interpretation Comments POCT GLU (test code = 5061789977) 168 mg/dL 70-110 H Lab Interpretation (test code = Abnormal 58193-5) [facility] GLUCOSE (AUTOMATED)2022-07-25 13:22:34 Test Item Value Reference Range Interpretation Comments POCT GLU (test code = 1157022109) 168 mg/dL 70-110 H Lab Interpretation (test code = Abnormal 65845-2) [facility] GLUCOSE (AUTOMATED)2022-07-25 01:59:34 Test Item Value Reference Range Interpretation Comments POCT GLU (test code = 6616267874) 202 mg/dL 70-110 H Lab Interpretation (test code = Abnormal 37888-5) [facility] GLUCOSE (AUTOMATED)2022-07-25 01:59:34 Test Item Value Reference Range Interpretation Comments POCT GLU (test code = 4179248942) 202 mg/dL 70-110 H Lab Interpretation (test code = Abnormal 52749-0) [facility] METABOLIC PANEL (NA, K, CL, CO2, GLUCOSE, BUN, CREATININE, CA)2022-07-24 23:06:12 Test Item Value Reference Range Interpretation Comments NA (test code = 135 mmol/L 135-145 6630571750) K (test code = 4.1 mmol/L 3.5-5 1577155908) CL (test code = 95 mmol/L 98-108 L 6815262627) CO2 TOTAL (test code = 39 mmol/L 23-31 H 4890155388) AGAP (test code = 2-16 L 5883098925) BUN (test code = 16 mg/dL 7-23 6510307401) GLUCOSE (test code = 140 mg/dL 70-110 H 4982522000) CREATININE (test code = 0.59 mg/dL 0.6-1.25 L 9091737348) CALCIUM (test code = 8.4 mg/dL 8.6-10.6 L 3645672198) eGFR (test code = mL/min/1.73m2 6033015303) ROSLYN (test code = ROSLYN) Association of [...] tests). Lab Interpretation Abnormal (test code = 93953-6) [facility] Test Item Value Reference Range Interpretation Comments MAGNESIUM (test code = 7284628013) 2.1 mg/dL 1.7-2.4 Lab Interpretation (test code = Normal 89104-2) [facility] METABOLIC PANEL (NA, K, CL, CO2, GLUCOSE, BUN, CREATININE, CA)2022-07-24 23:06:12 Test Item Value Reference Range Interpretation Comments NA (test code = 135 mmol/L 135-145 1766646666) K (test code = 4.1 mmol/L 3.5-5 2271938192) CL (test code = 95 mmol/L 98-108 L 9779448500) CO2 TOTAL (test code = 39 mmol/L 23-31 H 6415097991) AGAP (test code = 2-16 L 4109420111) BUN (test code = 16 mg/dL 7-23 4262035784) GLUCOSE (test code = 140 mg/dL 70-110 H 2861397497) CREATININE (test code = 0.59 mg/dL 0.6-1.25 L 2099528300) CALCIUM (test code = 8.4 mg/dL 8.6-10.6 L 1372782139) eGFR (test code = mL/min/1.73m2 2859353678) ROSLYN (test code = ROSLYN) Association of [...] tests). Lab Interpretation Abnormal (test code = 68197-9) [facility] Test Item Value Reference Range Interpretation Comments MAGNESIUM (test code = 2144614901) 2.1 mg/dL 1.7-2.4 Lab Interpretation (test code = Normal 22273-7) [facility] (for use with Heparin Infusion)2022-07-24 23:00:29 Test Item Value Reference Range Interpretation Comments APTT Patient (test code See_Comment H [Au tomated message] = 3173-2) The system [employer] generated this result transmitted ref erence range: 26 - 36 Seconds. The reference range was not used to int erpret this result as normal/abnormal . Lab Interpretation (test Abnormal code = 31336-1) [facility] (for use with Heparin Infusion)2022-07-24 23:00:29 Test Item Value Reference Range Interpretation Comments APTT Patient (test code See_Comment H [Au tomated message] = 3173-2) The system [employer] generated this result transmitted ref erence range: 26 - 36 Seconds. The reference range was not used to int erpret this result as normal/abnormal . Lab Interpretation (test Abnormal code = 27729-6) [facility] GLUCOSE (AUTOMATED)2022-07-24 20:44:06 Test Item Value Reference Range Interpretation Comments POCT GLU (test code = 0595607079) 161 mg/dL 70-110 H Lab Interpretation (test code = Abnormal 56300-0) [facility] GLUCOSE (AUTOMATED)2022-07-24 20:44:06 Test Item Value Reference Range Interpretation Comments POCT GLU (test code = 6514701173) 161 mg/dL 70-110 H Lab Interpretation (test code = Abnormal 61750-1) [facility] GLUCOSE (AUTOMATED)2022-07-24 17:17:45 Test Item Value Reference Range Interpretation Comments POCT GLU (test code = 2244784435) 257 mg/dL 70-110 H Lab Interpretation (test code = Abnormal 78121-3) [facility]2022-07-24 17:17:45 Test Item Value Reference Range Interpretation Comments POCT GLU (test code = 2055244220) 257 mg/dL 70-110 H Lab Interpretation (test code = Abnormal 50623-8) [facility] GLUCOSE (AUTOMATED)2022-07-24 14:12:13 Test Item Value Reference Range Interpretation Comments POCT GLU (test code = 9416165984) 201 mg/dL 70-110 H Lab Interpretation (test code = Abnormal 81998-9) [facility] GLUCOSE (AUTOMATED)2022-07-24 14:12:13 Test Item Value Reference Range Interpretation Comments POCT GLU (test code = 9739235688) 201 mg/dL 70-110 H Lab Interpretation (test code = Abnormal 97854-3) [facility] GLUCOSE (AUTOMATED)2022-07-24 01:57:51 Test Item Value Reference Range Interpretation Comments POCT GLU (test code = 8566426335) 214 mg/dL 70-110 H Lab Interpretation (test code = Abnormal 48309-5) [facility] GLUCOSE (AUTOMATED)2022-07-24 01:57:51 Test Item Value Reference Range Interpretation Comments POCT GLU (test code = 6996934918) 214 mg/dL 70-110 H Lab Interpretation (test code = Abnormal 45126-7) [facility] GLUCOSE (AUTOMATED)2022-07-23 21:55:56 Test Item Value Reference Range Interpretation Comments POCT GLU (test code = 0193971777) 184 mg/dL 70-110 H Lab Interpretation (test code = Abnormal 69814-0) [facility] GLUCOSE (AUTOMATED)2022-07-23 21:55:56 Test Item Value Reference Range Interpretation Comments POCT GLU (test code = 6770857936) 184 mg/dL 70-110 H Lab Interpretation (test code = Abnormal 64604-1) [facility] GLUCOSE (AUTOMATED)2022-07-23 17:27:48 Test Item Value Reference Range Interpretation Comments POCT GLU (test code = 8627274293) 259 mg/dL 70-110 H Lab Interpretation (test code = Abnormal 20114-2) [facility] GLUCOSE (AUTOMATED)2022-07-23 17:27:48 Test Item Value Reference Range Interpretation Comments POCT GLU (test code = 9314446945) 259 mg/dL 70-110 H Lab Interpretation (test code = Abnormal 90444-5) [facility] GLUCOSE (AUTOMATED)2022-07-23 13:05:59 Test Item Value Reference Range Interpretation Comments POCT GLU (test code = 5853834968) 154 mg/dL 70-110 H Lab Interpretation (test code = Abnormal 37625-2) [facility] GLUCOSE (AUTOMATED)2022-07-23 13:05:59 Test Item Value Reference Range Interpretation Comments POCT GLU (test code = 2256112224) 154 mg/dL 70-110 H Lab Interpretation (test code = Abnormal 35595-1) [facility] GLUCOSE (AUTOMATED)2022-07-23 09:58:20 Test Item Value Reference Range Interpretation Comments POCT GLU (test code = 3852862226) 177 mg/dL 70-110 H Lab Interpretation (test code = Abnormal 22825-8) [facility] GLUCOSE (AUTOMATED)2022-07-23 09:58:20 Test Item Value Reference Range Interpretation Comments POCT GLU (test code = 6870462010) 177 mg/dL 70-110 H Lab Interpretation (test code = Abnormal 23477-1) [facility] GLUCOSE (AUTOMATED)2022-07-22 21:30:57 Test Item Value Reference Range Interpretation Comments POCT GLU (test code = 5117989167) 194 mg/dL 70-110 H Lab Interpretation (test code = Abnormal 01861-5) [facility] GLUCOSE (AUTOMATED)2022-07-22 21:30:57 Test Item Value Reference Range Interpretation Comments POCT GLU (test code = 4341254627) 194 mg/dL 70-110 H Lab Interpretation (test code = Abnormal 34957-7) [facility] GLUCOSE (AUTOMATED)2022-07-22 16:52:50 Test Item Value Reference Range Interpretation Comments POCT GLU (test code = 9177110051) 197 mg/dL 70-110 H Lab Interpretation (test code = Abnormal 43345-5) [facility] GLUCOSE (AUTOMATED)2022-07-22 16:52:50 Test Item Value Reference Range Interpretation Comments POCT GLU (test code = 4118334084) 197 mg/dL 70-110 H Lab Interpretation (test code = Abnormal 79970-8) [facility] GLUCOSE (AUTOMATED)2022-07-22 13:22:34 Test Item Value Reference Range Interpretation Comments POCT GLU (test code = 6509053562) 150 mg/dL 70-110 H Lab Interpretation (test code = Abnormal 83076-0) [facility] GLUCOSE (AUTOMATED)2022-07-22 13:22:34 Test Item Value Reference Range Interpretation Comments POCT GLU (test code = 7403566797) 150 mg/dL 70-110 H Lab Interpretation (test code = Abnormal 99840-8) [facility] [id number] 09:38:27 Test Item Value Reference Range Interpretation Comments NT-proBNP (test code 2160 pg/mL See_Comment H [Autom ated = 1646379585) message] The system which generated this result transmitted reference range : <=125. The reference range was not used to interpret this result as normal/abnormal . ROSLYN (test code = ROSLYN) Biotin has been reported to cause a negative bias, interpret results relative to patient's use of biotin. Lab Interpretation Abnormal (test code = 08551-7) [facility] [id number] 09:38:27 Test Item Value Reference Range Interpretation Comments NT-proBNP (test code 2160 pg/mL See_Comment H [Autom ated = 0262378070) message] The system which generated this result transmitted reference range : <=125. The reference range was not used to interpret this result as normal/abnormal . ROSLYN (test code = ROSLYN) Biotin has been reported to cause a negative bias, interpret results relative to patient's use of biotin. Lab Interpretation Abnormal (test code = 18326-9) [facility] Test Item Value Reference Range Interpretation Comments MAGNESIUM (test code = 6543645003) 1.8 mg/dL 1.7-2.4 Lab Interpretation (test code = Normal 77922-2) [facility]29 Test Item Value Reference Range Interpretation Comments MAGNESIUM (test code = 8658285937) 1.8 mg/dL 1.7-2.4 Lab Interpretation (test code = Normal 00779-3) [facility] METABOLIC PANEL (NA, K, CL, CO2, GLUCOSE, BUN, CREATININE, CA)2022-07-22 09:31:09 Test Item Value Reference Range Interpretation Comments NA (test code = 137 mmol/L 135-145 4239495577) K (test code = 4.0 mmol/L 3.5-5 0665856764) CL (test code = 98 mmol/L 98-108 6930467260) CO2 TOTAL (test code = 34 mmol/L 23-31 H 9120101545) AGAP (test code = 2-16 7774673377) BUN (test code = 16 mg/dL 7-23 2735513228) GLUCOSE (test code = 177 mg/dL 70-110 H 8487944485) CREATININE (test code = 0.66 mg/dL 0.6-1.25 3819475715) CALCIUM (test code = 8.2 mg/dL 8.6-10.6 L 6460261217) eGFR (test code = mL/min/1.73m2 7857930313) ROSLYN (test code = ROSLYN) Association of [...] tests). Lab Interpretation Abnormal (test code = 16462-8) [facility] METABOLIC PANEL (NA, K, CL, CO2, GLUCOSE, BUN, CREATININE, CA)2022-07-22 09:31:09 Test Item Value Reference Range Interpretation Comments NA (test code = 137 mmol/L 135-145 3821422710) K (test code = 4.0 mmol/L 3.5-5 7292177386) CL (test code = 98 mmol/L 98-108 9612589549) CO2 TOTAL (test code = 34 mmol/L 23-31 H 0793302442) AGAP (test code = 2-16 7705993737) BUN (test code = 16 mg/dL 7-23 2320377315) GLUCOSE (test code = 177 mg/dL 70-110 H 5699181451) CREATININE (test code = 0.66 mg/dL 0.6-1.25 2809524304) CALCIUM (test code = 8.2 mg/dL 8.6-10.6 L 8230407365) eGFR (test code = mL/min/1.73m2 8705689713) ROSLYN (test code = ROSLYN) Association of [...] tests). Lab Interpretation Abnormal (test code = 77317-6) [facility]21262[facility] (ALB,T.PRO,BILI T,BU/BC,ALT,AST,ALK PHOS)2022-07-22 09:30:44 Test Item Value Reference Range Interpretation Comments TOTAL BILI (test code = 4958414550) 1.2 mg/dL 0.1-1.1 H BILI UNCON (test code = 6074451013) 0.9 mg/dL 0.1-1.1 BILI CONJ (test code = 0638957933) 0.0 mg/dL 0-0.3 T PROTEIN (test code = 4771975982) 6.5 g/dL 6.3-8.2 ALBUMIN (test code = 7827948661) 3.7 g/dL 3.5-5 ALK PHOS (test code = 4972538694) 67 U/L 34-122 ALTv (test code = 1742-6) 33 U/L 5-50 AST(SGOT) (test code = 6640352048) 30 U/L 13-40 Lab Interpretation (test code = Abnormal 13647-2) [facility]2022-[facility]-12 09:30:44 Test Item Value Reference Range Interpretation Comments PHOSPHORUS (test code = 5859848902) 3.6 mg/dL 2.5-5 Lab Interpretation (test code = Normal 60289-2) [facility] (97846) (ALB,T.PRO,BILI T,BU/BC,ALT,AST,ALK PHOS)2022-07-22 09:30:44 Test Item Value Reference Range Interpretation Comments TOTAL BILI (test code = 2042056216) 1.2 mg/dL 0.1-1.1 H BILI UNCON (test code = 7875486167) 0.9 mg/dL 0.1-1.1 BILI CONJ (test code = 7728073339) 0.0 mg/dL 0-0.3 T PROTEIN (test code = 8232837483) 6.5 g/dL 6.3-8.2 ALBUMIN (test code = 6976141991) 3.7 g/dL 3.5-5 ALK PHOS (test code = 4177078221) 67 U/L 34-122 ALTv (test code = 1742-6) 33 U/L 5-50 AST(SGOT) (test code = 0784966846) 30 U/L 13-40 Lab Interpretation (test code = Abnormal 50674-2) [facility]2022-[facility]-12 09:30:44 Test Item Value Reference Range Interpretation Comments PHOSPHORUS (test code = 6374864293) 3.6 mg/dL 2.5-5 Lab Interpretation (test code = Normal 22580-0) [facility] WITH [id number] 09:23:08 Test Item Value Reference Range Interpretation Comments WBC (test code = See_Comment H [Automated 2842-2) message] The system which generated this result transmit artem reference range : 4.20 - 10.70 10*3/?L. The reference range was not used to interpret this result as normal/abnormal . RBC (test code = See_Comment [Automated 198-8) message] The system which generated this result [...] RDW-SD (test code = 46.6 fL 38.5-51.6 18239-6) RDW-CV (test code = 13.5 % 12.1-15.4 788-0) PLT (test code = See_Comment L [Automated 777-3) message] The system which generated this result transmit artem reference range : 150 - 328 10*3/ ?L. The reference range was not u sed to interpret th is result as normal/abnormal . MPV (test code = 12.7 fL 9.8-13 65685-2) NRBC/100 WBC (test See_Comment [Automat ed code = 5531973841) message] The system which generated this result transmit artem reference range : 0.0 - 10.0 /100 WBCs. The reference range was not used to interpret this result as normal/abnormal . NRBC x10^3 (test code See_Comment [Auto mated = 7529729766) message] The system which generated this result transmit artem reference range : 10*3/?L. The reference range was not used to interpret this result as normal/abnormal . GRAN MAT (NEUT) % 71.3 % (test code = 770-8) IMM GRAN % (test code 0.40 % = 7621503905) LYMPH % (test code = 17.4 % 736-9) MONO % (test code = 9.8 % 5905-5) EOS % (test code = 0.8 % 713-8) BASO % (test code = 0.3 % 706-2) GRAN MAT x10^3(ANC) 10.18 10*3/uL 1.99-6.95 H (test code = 6740907326) IMM GRAN x10^3 (test 0.06 10*3/uL 0-0.06 code = 7252640690) LYMPH x10^3 (test code 2.49 10*3/uL 1.09-3.23 = 731-0) MONO x10^3 (test code 1.40 10*3/uL 0.36-1.02 H = 742-7) EOS x10^3 (test code = 0.11 10*3/uL 0.06-0.53 711-2) BASO x10^3 (test code 0.04 10*3/uL 0.01-0.09 = 704-7) Lab Interpretation Abnormal (test code = 17622-8) [facility] WITH [id number] 09:23:08 Test Item Value Reference Range Interpretation [...] RDW-SD (test code = 46.6 fL 38.5-51.6 42629-2) RDW-CV (test code = 13.5 % 12.1-15.4 788-0) PLT (test code = See_Comment L [Automated 777-3) message] The system which generated this result transmit artem reference range : 150 - 328 10*3/ ?L. The reference range was not u sed to interpret th is result as normal/abnormal . MPV (test code = 12.7 fL 9.8-13 15678-4) NRBC/100 WBC (test See_Comment [Automat ed code = 3119582502) message] The system which generated this result transmit artem reference range : 0.0 - 10.0 /100 WBCs. The reference range was not used to interpret this result as normal/abnormal . NRBC x10^3 (test code See_Comment [Auto mated = 4378702867) message] The system which generated this result transmit artem reference range : 10*3/?L. The reference range was not used to interpret this result as normal/abnormal . GRAN MAT (NEUT) % 71.3 % (test code = 770-8) IMM GRAN % (test code 0.40 % = 1384335950) LYMPH % (test code = 17.4 % 736-9) MONO % (test code = 9.8 % 5905-5) EOS % (test code = 0.8 % 713-8) BASO % (test code = 0.3 % 706-2) GRAN MAT x10^3(ANC) 10.18 10*3/uL 1.99-6.95 H (test code = 7231131600) IMM GRAN x10^3 (test 0.06 10*3/uL 0-0.06 code = 2963918681) LYMPH x10^3 (test code 2.49 10*3/uL 1.09-3.23 = 731-0) MONO x10^3 (test code 1.40 10*3/uL 0.36-1.02 H = 742-7) EOS x10^3 (test code = 0.11 10*3/uL 0.06-0.53 711-2) BASO x10^3 (test code 0.04 10*3/uL 0.01-0.09 = 704-7) Lab Interpretation Abnormal (test code = 56989-9) [facility] GLUCOSE (AUTOMATED)2022-07-22 01:47:13 Test Item Value Reference Range Interpretation Comments POCT GLU (test code = 9511543784) 220 mg/dL 70-110 H Lab Interpretation (test code = Abnormal 64067-6) [facility] GLUCOSE (AUTOMATED)2022-07-22 01:47:13 Test Item Value Reference Range Interpretation Comments POCT GLU (test code = 8081763665) 220 mg/dL 70-110 H Lab Interpretation (test code = Abnormal 78390-8) [facility] (40267)(TOTAL CHOLESTEROL, TRIGLYCERIDES, HDL)2022-07-22 00:19:28 Test Item Value Reference Range Interpretation Comments CHOL (test code = 121 mg/dL 120-200 5298293109) HDL (test code = 28 mg/dL See_Comment L [Automated message] 1199894739) The system [employer] generated this result transmit artem reference range : >=40. The refer ence range was not u sed to interpret th is result as normal/abnormal . HDLC RATIO (test code = See_Comment [Au tomated message] 7395423599) The system [employer] generated this result transmit artem reference range : <=5.0. The refe rence range was not u sed to interpret th is result as normal/abnormal . TRIG (test code = 119 mg/dL 30-170 1344290129) LDL CHOL (test code = 69 mg/dL See_Comment [Auto mated message] 47337-3) The system [employer] generated this result transmit artem reference range : <=160. The refe rence range was not u sed to interpret th is result as normal/abnormal . VLDL (test code = 24 mg/dL 5-60 1926044892) Lab Interpretation (test Abnormal code = 30190-8) [facility] (15847)(TOTAL CHOLESTEROL, TRIGLYCERIDES, HDL)2022-07-22 00:19:28 Test Item Value Reference Range Interpretation Comments CHOL (test code = 121 mg/dL 120-200 9080384915) HDL (test code = 28 mg/dL See_Comment L [Automated message] 8028637158) The system [employer] generated this result transmit artem reference range : >=40. The refer ence range was not u sed to interpret th is result as normal/abnormal . HDLC RATIO (test code = See_Comment [Au tomated message] 1056667324) The system [employer] generated this result transmit artem reference range : <=5.0. The refe rence range was not u sed to interpret th is result as normal/abnormal . TRIG (test code = 119 mg/dL 30-170 2011697788) LDL CHOL (test code = 69 mg/dL See_Comment [Auto mated message] 44301-9) The system [employer] generated this result transmit artem reference range : <=160. The refe rence range was not u sed to interpret th is result as normal/abnormal . VLDL (test code = 24 mg/dL 5-60 7860190648) Lab Interpretation (test Abnormal code = 87378-1) [facility] 00:00:55 Test Item Value Reference Range Interpretation Comments Height (test code = in 9604174742) Weight (test code = lbs 8350892173) Systolic BP (test code = mmHg 3743997961) Diastolic BP (test code mmHg = 0024563405) Heart Rate (test code = bpm 7324554090) BSA (test code = 2.04 m2 2692777747) Ao root annulus (test 3.5 cm code = 3747619259) Ao root diam (test code 3.50 cm = 8740393688) Aortic root (test code = 3.5 cm 7919626752) LVOT diameter (test code 2.19 cm = 2446859479) LVOT area (test code = 3.80 cm2 4071822601) LVIDD (test code = 5.30 cm 0733168869) Left Ventricular End 135.3 mL Diastolic Volume by Teichholz Method (test code = 1071942) IVS (test code = 1.26 cm 9038532171) Interventricular Septum 1.26 cm Diastolic Thickness by 2D (test code = 8205564) LVPWD (test code = 1.26 cm 8302081499) PW (test code = 1.26 cm 0.6-1.3 1991154544) EF(Teich) (test code = 16.40 % 1652804112) LVIDS (test code = 4.90 cm 3822393276) Left Ventricular End 113.1 mL Systolic Volume by Teichholz Method (test code = 4787532) FS (test code = 7 % 4598025475) EF - 2D (test code = 16.40 % 94474129) LA size (test code = 4.3 cm 7971947302) TR Peak Anthony (test code = 249.6 cm/s 1414300585) Triscuspid Valve mmHg Regurgitation Peak Gradient (test code = 3784555383) LAV(MOD-sp4) (test code 79.00 mL = 1869880058) E wave decelartion time 0.13 s (test code = 0219279551) MV Peak E Anthony (test code 82.3 cm/s = 4098090100) MV stenosis pressure 1/2 38.8 ms time (test code = 0369618895) MV Peak A Anthony (test code 40.8 cm/s = 2961581944) E/A ratio (test code = ratio 7765307474) MR max PG (test code = 61.50 mm[Hg] 1982911206) MR max anthony (test code = 392.20 cm/s 0783570278) Mr max anthony (test code = 392.2 m/s 7366320192) MV Prop V (test code = 33.40 cm/s 6787359937) MV E/e' septal (test 12.6 cm/s code = 8124727823) Tapse (test code = 1.17 cm 7028068534) LVOT stroke volume (test 52.20 cm3 code = 5207295783) LVOT peak anthony (test code 86.4 cm/s = 1239385433) LVOT mn grad (test code mmHg = 5098563793) AV LVOT peak gradient mmHg (test code = 5794658138) LVOT peak VTI (test code 13.9 cm = 2580320244) LV V1 mean (test code = 57.20 cm/s 9894160901) Aortic valve mean 94.3 cm/s velocity (test code = 7791277603) Ao peak anthony (test code = 125.8 cm/s 3138880557) Ao VTI (test code = 22.6 cm 9727190625) AV area by cont VTI 2.3 cm2 (test code = 8373769766) AV area peak anthony (test 2.6 cm2 code = 6544363519) Ao max PG (test code = 6.30 mm[Hg] 9389727154) AV peak gradient (test mmHg code = 8205924556) AV valve area (test code 2.31 cm2 = 7805990334) AV mean gradient (test mmHg code = 8548624548) Radiology Study observation (narrative) (test code = 63792-7) ROSLYN (test code = ROSLYN) ?Left?Ventricle: Left [...] mL of Lumason ultrasound enhancing agent used. [facility]22 00:00:55 Test Item Value Reference Range Interpretation Comments Height (test code = in 0255735533) Weight (test code = lbs 0800697108) Systolic BP (test code = mmHg 4108112310) Diastolic BP (test code mmHg = 2094165531) Heart Rate (test code = bpm 8081636709) BSA (test code = 2.04 m2 4106219213) Ao root annulus (test 3.5 cm code = 6680460244) Ao root diam (test code 3.50 cm = 8792506101) Aortic root (test code = 3.5 cm 9785792986) LVOT diameter (test code 2.19 cm = 8200729814) LVOT area (test code = 3.80 cm2 2078759468) LVIDD (test code = 5.30 cm 3735840619) Left Ventricular End 135.3 mL Diastolic Volume by Teichholz Method (test code = 9570501) IVS (test code = 1.26 cm 9691771999) Interventricular Septum 1.26 cm Diastolic Thickness by 2D (test code = 4205566) LVPWD (test code = 1.26 cm 5828993402) PW (test code = 1.26 cm 0.6-1.4 5880109454) EF(Teich) (test code = 16.40 % 8143759399) LVIDS (test code = 4.90 cm 0502885848) Left Ventricular End 113.1 mL Systolic Volume by Teichholz Method (test code = 6540543) FS (test code = 7 % 2228391124) EF - 2D (test code = 16.40 % 56154103) LA size (test code = 4.3 cm 3262967323) TR Peak Anthony (test code = 249.6 cm/s 1548891775) Triscuspid Valve mmHg Regurgitation Peak Gradient (test code = 4685771645) LAV(MOD-sp4) (test code 79.00 mL = 9417236829) E wave decelartion time 0.13 s (test code = 6112772170) MV Peak E Anthony (test code 82.3 cm/s = 3490530182) MV stenosis pressure 1/2 38.8 ms time (test code = 9324118212) MV Peak A Anthony (test code 40.8 cm/s = 7634785009) E/A ratio (test code = ratio 2329801127) MR max PG (test code = 61.50 mm[Hg] 2982844427) MR max anthony (test code = 392.20 cm/s 5866198520) Mr max anthony (test code = 392.2 m/s 5239817311) MV Prop V (test code = 33.40 cm/s 0127166602) MV E/e' septal (test 12.6 cm/s code = 5184103605) Tapse (test code = 1.17 cm 1252222475) LVOT stroke volume (test 52.20 cm3 code = 5238014822) LVOT peak anthony (test code 86.4 cm/s = 9108452333) LVOT mn grad (test code mmHg = 6300775273) AV LVOT peak gradient mmHg (test code = 8916360237) LVOT peak VTI (test code 13.9 cm = 2205766054) LV V1 mean (test code = 57.20 cm/s 2500657629) Aortic valve mean 94.3 cm/s velocity (test code = 1725604557) Ao peak anthony (test code = 125.8 cm/s 6013942189) Ao VTI (test code = 22.6 cm 5816974736) AV area by cont VTI 2.3 cm2 (test code = 1363382977) AV area peak anthony (test 2.6 cm2 code = 2350988114) Ao max PG (test code = 6.30 mm[Hg] 3785862058) AV peak gradient (test mmHg code = 2076421786) AV valve area (test code 2.31 cm2 = 0569392167) AV mean gradient (test mmHg code = 8544424701) Radiology Study observation (narrative) (test code = 27490-5) ROSLYN (test code = ROSLYN) ?Left?Ventricle: Left [...] mL of Lumason ultrasound enhancing agent used. [facility] GLUCOSE (AUTOMATED)2022-07-21 21:54:48 Test Item Value Reference Range Interpretation Comments POCT GLU (test code = 7753421500) 161 mg/dL 70-110 H Lab Interpretation (test code = Abnormal 43100-7) [facility] GLUCOSE (AUTOMATED)2022-07-21 21:54:48 Test Item Value Reference Range Interpretation Comments POCT GLU (test code = 1913262352) 161 mg/dL 70-110 H Lab Interpretation (test code = Abnormal 93551-6) [facility] GLUCOSE (AUTOMATED)2022-07-21 16:47:05 Test Item Value Reference Range Interpretation Comments POCT GLU (test code = 4047385855) 132 mg/dL 70-110 H Lab Interpretation (test code = Abnormal 14038-5) [facility] GLUCOSE (AUTOMATED)2022-07-21 16:47:05 Test Item Value Reference Range Interpretation Comments POCT GLU (test code = 4788501120) 132 mg/dL 70-110 H Lab Interpretation (test code = Abnormal 91657-5) [facility] GLUCOSE (AUTOMATED)2022-07-21 15:03:01 Test Item Value Reference Range Interpretation Comments POCT GLU (test code = 5924897017) 182 mg/dL 70-110 H Lab Interpretation (test code = Abnormal 50458-1) [facility] GLUCOSE (AUTOMATED)2022-07-21 15:03:01 Test Item Value Reference Range Interpretation Comments POCT GLU (test code = 5753980064) 182 mg/dL 70-110 H Lab Interpretation (test code = Abnormal 04299-5) [facility] with [id number] 14:58:14 Test Item Value Reference Range Interpretation Comments WBC (test code = See_Comment H [Automated 2890-2) message] The system which generated this result [...] RDW-SD (test code = 46.4 fL 38.5-51.6 09409-3) RDW-CV (test code = 13.5 % 12.1-15.4 788-0) PLT (test code = See_Comment [Automated 777-3) message] The system which generated this result transmit artem reference range : 150 - 328 10*3/ ?L. The reference range was not u sed to interpret th is result as normal/abnormal . MPV (test code = 13.0 fL 9.8-13 56266-9) NRBC/100 WBC (test See_Comment [Automat ed code = 0749340858) message] The system which generated this result transmit artem reference range : 0.0 - 10.0 /100 WBCs. The reference range was not used to interpret this result as normal/abnormal . NRBC x10^3 (test code See_Comment [Auto mated = 1903210483) message] The system which generated this result transmit artem reference range : 10*3/?L. The reference range was not used to interpret this result as normal/abnormal . GRAN MAT (NEUT) % 71.1 % (test code = 770-8) IMM GRAN % (test code 0.40 % = 8215873237) LYMPH % (test code = 17.6 % 736-9) MONO % (test code = 10.3 % 5905-5) EOS % (test code = 0.3 % 713-8) BASO % (test code = 0.3 % 706-2) GRAN MAT x10^3(ANC) 10.55 10*3/uL 1.99-6.95 H (test code = 6211330166) IMM GRAN x10^3 (test 0.06 10*3/uL 0-0.06 code = 1710158273) LYMPH x10^3 (test code 2.61 10*3/uL 1.09-3.23 = 731-0) MONO x10^3 (test code 1.53 10*3/uL 0.36-1.02 H = 742-7) EOS x10^3 (test code = 0.04 10*3/uL 0.06-0.53 L 711-2) BASO x10^3 (test code 0.04 10*3/uL 0.01-0.09 = 704-7) BANDS (test code = Increased A 2901670474) REACT LYMPHS (test Rare code = 1162797045) GIANT PLATELETS (test Present See_Comment A [Auto mated code = 5908-9) message] The system which generated this result transmit artem reference range : (none). The reference range was not used to interpret this result as normal/abnormal . Lab Interpretation Abnormal (test code = 43024-9) [facility] with [id number] 14:58:14 Test Item Value Reference Range Interpretation Comments WBC (test code = See_Comment H [Automated 0584-2) message] The system which generated this result transmit artem reference range : 4.20 - 10.70 10*3/?L. The reference range was not used to interpret this result as normal/abnormal . RBC (test code = See_Comment [Automated 749-8) message] The system which generated this result [...] RDW-SD (test code = 46.4 fL 38.5-51.6 50761-8) RDW-CV (test code = 13.5 % 12.1-15.4 788-0) PLT (test code = See_Comment [Automated 777-3) message] The system which generated this result transmit artem reference range : 150 - 328 10*3/ ?L. The reference range was not u sed to interpret th is result as normal/abnormal . MPV (test code = 13.0 fL 9.8-13 13899-2) NRBC/100 WBC (test See_Comment [Automat ed code = 1266360967) message] The system which generated this result transmit artem reference range : 0.0 - 10.0 /100 WBCs. The reference range was not used to interpret this result as normal/abnormal . NRBC x10^3 (test code See_Comment [Auto mated = 5229481037) message] The system which generated this result transmit artem reference range : 10*3/?L. The reference range was not used to interpret this result as normal/abnormal . GRAN MAT (NEUT) % 71.1 % (test code = 770-8) IMM GRAN % (test code 0.40 % = 2744289418) LYMPH % (test code = 17.6 % 736-9) MONO % (test code = 10.3 % 5905-5) EOS % (test code = 0.3 % 713-8) BASO % (test code = 0.3 % 706-2) GRAN MAT x10^3(ANC) 10.55 10*3/uL 1.99-6.95 H (test code = 8745654988) IMM GRAN x10^3 (test 0.06 10*3/uL 0-0.06 code = 3007363178) LYMPH x10^3 (test code 2.61 10*3/uL 1.09-3.23 = 731-0) MONO x10^3 (test code 1.53 10*3/uL 0.36-1.02 H = 742-7) EOS x10^3 (test code = 0.04 10*3/uL 0.06-0.53 L 711-2) BASO x10^3 (test code 0.04 10*3/uL 0.01-0.09 = 704-7) BANDS (test code = Increased A 7700422428) REACT LYMPHS (test Rare code = 7768584040) GIANT PLATELETS (test Present See_Comment A [Auto mated code = 5908-9) message] The system which generated this result transmit artem reference range : (none). The reference range was not used to interpret this result as normal/abnormal . Lab Interpretation Abnormal (test code = 45113-5) [facility] GLUCOSE (AUTOMATED)2022-07-21 13:20:46 Test Item Value Reference Range Interpretation Comments POCT GLU (test code = 0533472890) 148 mg/dL 70-110 H Lab Interpretation (test code = Abnormal 27509-7) [facility] GLUCOSE (AUTOMATED)2022-07-21 13:20:46 Test Item Value Reference Range Interpretation Comments POCT GLU (test code = 7439607919) 148 mg/dL 70-110 H Lab Interpretation (test code = Abnormal 75591-6) [facility] Metabolic Panel (NA, K, CL, CO2, GLUCOSE, BUN, CREATININE, CA)2022-07-21 13:17:35 Test Item Value Reference Range Interpretation Comments NA (test code = 134 mmol/L 135-145 L 9978541139) K (test code = 4.1 mmol/L 3.5-5 5917140281) CL (test code = 99 mmol/L 98-108 2850367267) CO2 TOTAL (test code = 32 mmol/L 23-31 H 3261328443) AGAP (test code = 2-16 1581107944) BUN (test code = 17 mg/dL 7-23 3809881470) GLUCOSE (test code = 186 mg/dL 70-110 H 5980108638) CREATININE (test code = 0.65 mg/dL 0.6-1.25 0764220449) CALCIUM (test code = 8.2 mg/dL 8.6-10.6 L 8465215119) eGFR (test code = mL/min/1.73m2 2785922991) ROSLYN (test code = ROSLYN) Association of [...] tests). Lab Interpretation Abnormal (test code = 72636-4) [facility] Metabolic Panel (NA, K, CL, CO2, GLUCOSE, BUN, CREATININE, CA)2022-07-21 13:17:35 Test Item Value Reference Range Interpretation Comments NA (test code = 134 mmol/L 135-145 L 5238439327) K (test code = 4.1 mmol/L 3.5-5 9860612918) CL (test code = 99 mmol/L 98-108 8305979016) CO2 TOTAL (test code = 32 mmol/L 23-31 H 0516180983) AGAP (test code = 2-16 5956289356) BUN (test code = 17 mg/dL 7-23 9734050602) GLUCOSE (test code = 186 mg/dL 70-110 H 6136781044) CREATININE (test code = 0.65 mg/dL 0.6-1.25 2372346349) CALCIUM (test code = 8.2 mg/dL 8.6-10.6 L 4401332528) eGFR (test code = mL/min/1.73m2 2155286937) ROSLYN (test code = ROSLYN) Association of [...] tests). Lab Interpretation Abnormal (test code = 55201-2) [facility] [id number] 12:35:48 Test Item Value Reference Interpretation Comments Range TROPONIN I (test 0.032 ng/mL See_Comment [Automated code = 7145389207) message] The system which generated this result [...] biotin. Lab Interpretation Normal (test code = 10352-8) [facility] [id number] 12:35:48 Test Item Value Reference Interpretation Comments Range TROPONIN I (test 0.032 ng/mL See_Comment [Automated code = 4064224160) message] The system which generated this result [...] biotin. Lab Interpretation Normal (test code = 51146-9) [facility] [id number] 12:32:47 Test Item Value Reference Range Interpretation Comments NT-proBNP (test code 3830 pg/mL See_Comment H [Autom ated = 1520465433) message] The system which generated this result transmitted reference range : <=125. The reference range was not used to interpret this result as normal/abnormal . ROSLYN (test code = ROSLYN) Biotin has been reported to cause a negative bias, interpret results relative to patient's use of biotin. Lab Interpretation Abnormal (test code = 47885-3) [facility] [id number] 12:32:47 Test Item Value Reference Range Interpretation Comments NT-proBNP (test code 3830 pg/mL See_Comment H [Autom ated = 3136425328) message] The system which generated this result transmitted reference range : <=125. The reference range was not used to interpret this result as normal/abnormal . ROSLYN (test code = ROSLYN) Biotin has been reported to cause a negative bias, interpret results relative to patient's use of biotin. Lab Interpretation Abnormal (test code = 38482-7) [facility] [id number] 12:24:10 Test Item Value Reference Range Interpretation Comments MAGNESIUM (test code = 1832537166) 1.8 mg/dL 1.7-2.4 Lab Interpretation (test code = Normal 51132-0) [id number] 12:24:10 Test Item Value Reference Range Interpretation Comments MAGNESIUM (test code = 5209477087) 1.8 mg/dL 1.7-2.4 Lab Interpretation (test code = Normal 13666-8) [facility] GLUCOSE (AUTOMATED)2022-07-21 04:19:16 Test Item Value Reference Range Interpretation Comments POCT GLU (test code = 1863176347) 169 mg/dL 70-110 H Lab Interpretation (test code = Abnormal 15741-0) [facility] GLUCOSE (AUTOMATED)2022-07-21 04:19:16 Test Item Value Reference Range Interpretation Comments POCT GLU (test code = 4105273929) 169 mg/dL 70-110 H Lab Interpretation (test code = Abnormal 22400-3) [facility] GLUCOSE (AUTOMATED)2022-07-21 02:03:28 Test Item Value Reference Range Interpretation Comments POCT GLU (test code = 3064114849) 242 mg/dL 70-110 H Lab Interpretation (test code = Abnormal 33663-5) [facility] GLUCOSE (AUTOMATED)2022-07-21 02:03:28 Test Item Value Reference Range Interpretation Comments POCT GLU (test code = 1967327868) 242 mg/dL 70-110 H Lab Interpretation (test code = Abnormal 09957-7) [facility]cosylated Hemoglobin (A1C)2022-07-21 00:46:20 Test Item Value Reference Range Interpretation Comments HGB A1C (test code = 11.1 % 4-5.7 H 4548-4) ROSLYN (test code = ROSLYN) Reference RangesNormal: <5.7%Prediabetes: 5.7 - 6.4%Diabetes: > 6.5% Lab Interpretation (test Abnormal code = 87858-7) [facility] (A1C)2022-07-21 00:46:20 Test Item Value Reference Range Interpretation Comments HGB A1C (test code = 11.1 % 4-5.7 H 4548-4) ROSLYN (test code = ROSLYN) Reference RangesNormal: <5.7%Prediabetes: 5.7 - 6.4%Diabetes: > 6.5% Lab Interpretation (test Abnormal code = 46599-0) [facility] GLUCOSE (AUTOMATED)2022-07-20 22:27:55 Test Item Value Reference Range Interpretation Comments POCT GLU (test code = 8739019357) 234 mg/dL 70-110 H Lab Interpretation (test code = Abnormal 71822-6) [facility] GLUCOSE (AUTOMATED)2022-07-20 22:27:55 Test Item Value Reference Range Interpretation Comments POCT GLU (test code = 8945641745) 234 mg/dL 70-110 H Lab Interpretation (test code = Abnormal 23851-5) [facility] [id number] 17:21:08 Test Item Value Reference Range Interpretation Comments NT-proBNP (test code 3250 pg/mL See_Comment H [Autom ated = 5183218612) message] The system which generated this result transmitted reference range : <=125. The reference range was not used to interpret this result as normal/abnormal . ROSLYN (test code = ROSLYN) Biotin has been reported to cause a negative bias, interpret results relative to patient's use of biotin. Lab Interpretation Abnormal (test code = 28306-8) [facility] [id number] 17:21:08 Test Item Value Reference Range Interpretation Comments NT-proBNP (test code 3250 pg/mL See_Comment H [Autom ated = 2215857935) message] The system which generated this result transmitted reference range : <=125. The reference range was not used to interpret this result as normal/abnormal . ROSLYN (test code = ROSLYN) Biotin has been reported to cause a negative bias, interpret results relative to patient's use of biotin. Lab Interpretation Abnormal (test code = 05877-8) [facility] WITH [id number] 17:16:49 Test Item Value Reference Range Interpretation [...] RDW-SD (test code = 44.7 fL 38.5-51.6 53974-6) RDW-CV (test code = 13.7 % 12.1-15.4 788-0) PLT (test code = See_Comment [Automated 777-3) message] The system which generated this result transmit artem reference range : 150 - 328 10*3/ ?L. The reference range was not u sed to interpret th is result as normal/abnormal . MPV (test code = 12.5 fL 9.8-13 45422-9) NRBC/100 WBC (test See_Comment [Automat ed code = 9629179451) message] The system which generated this result transmit artem reference range : 0.0 - 10.0 /100 WBCs. The reference range was not used to interpret this result as normal/abnormal . NRBC x10^3 (test code See_Comment [Auto mated = 7326128113) message] The system which generated this result transmit artem reference range : 10*3/?L. The reference range was not used to interpret this result as normal/abnormal . GRAN MAT (NEUT) % 76.6 % (test code = 770-8) IMM GRAN % (test code 0.70 % = 6776995040) LYMPH % (test code = 13.8 % 736-9) MONO % (test code = 8.5 % 5905-5) EOS % (test code = 0.1 % 713-8) BASO % (test code = 0.3 % 706-2) GRAN MAT x10^3(ANC) 17.13 10*3/uL 1.99-6.95 H (test code = 2349729817) IMM GRAN x10^3 (test 0.16 10*3/uL 0-0.06 H code = 6650004874) LYMPH x10^3 (test code 3.10 10*3/uL 1.09-3.23 = 731-0) MONO x10^3 (test code 1.91 10*3/uL 0.36-1.02 H = 742-7) EOS x10^3 (test code = 0.06-0.53 L 711-2) BASO x10^3 (test code 0.07 10*3/uL 0.01-0.09 = 704-7) BANDS (test code = Increased A 2939019134) REACT LYMPHS (test Rare code = 6607411608) Lab Interpretation Abnormal (test code = 68789-0) [facility] WITH [id number] 17:16:49 Test Item Value Reference Range Interpretation [...] RDW-SD (test code = 44.7 fL 38.5-51.6 70724-4) RDW-CV (test code = 13.7 % 12.1-15.4 788-0) PLT (test code = See_Comment [Automated 777-3) message] The system which generated this result transmit artem reference range : 150 - 328 10*3/ ?L. The reference range was not u sed to interpret th is result as normal/abnormal . MPV (test code = 12.5 fL 9.8-13 79443-7) NRBC/100 WBC (test See_Comment [Automat ed code = 4051749361) message] The system which generated this result transmit artem reference range : 0.0 - 10.0 /100 WBCs. The reference range was not used to interpret this result as normal/abnormal . NRBC x10^3 (test code See_Comment [Auto mated = 9678996898) message] The system which generated this result transmit artem reference range : 10*3/?L. The reference range was not used to interpret this result as normal/abnormal . GRAN MAT (NEUT) % 76.6 % (test code = 770-8) IMM GRAN % (test code 0.70 % = 6804209885) LYMPH % (test code = 13.8 % 736-9) MONO % (test code = 8.5 % 5905-5) EOS % (test code = 0.1 % 713-8) BASO % (test code = 0.3 % 706-2) GRAN MAT x10^3(ANC) 17.13 10*3/uL 1.99-6.95 H (test code = 1495316355) IMM GRAN x10^3 (test 0.16 10*3/uL 0-0.06 H code = 3879685629) LYMPH x10^3 (test code 3.10 10*3/uL 1.09-3.23 = 731-0) MONO x10^3 (test code 1.91 10*3/uL 0.36-1.02 H = 742-7) EOS x10^3 (test code = 0.06-0.53 L 711-2) BASO x10^3 (test code 0.07 10*3/uL 0.01-0.09 = 704-7) BANDS (test code = Increased A 5412875897) REACT LYMPHS (test Rare code = 2323541608) Lab Interpretation Abnormal (test code = 91549-2) [facility] [id number] 16:42:04 Test Item Value Reference Interpretation Comments Range TROPONIN I (test 0.025 ng/mL See_Comment [Automated code = 8724046172) message] The system which generated this result [...] biotin. Lab Interpretation Normal (test code = 03494-5) [facility] [id number] 16:42:04 Test Item Value Reference Interpretation Comments Range TROPONIN I (test 0.025 ng/mL See_Comment [Automated code = 4592962900) message] The system which generated this result [...] biotin. Lab Interpretation Normal (test code = 75840-2) [facility] 16:31:19 Test Item Value Reference Range Interpretation Comments APTT Patient (test See_Comment [Automat ed code = 3173-2) message] The system which generated this result transmitted reference range : 23 - 38 Seconds . The reference range was not used to interpr et this result as normal/abnormal . ROSLYN (test code = ROSLYN) The [facility] patient population mean normal value for aPTT is 30 seconds. Lab Interpretation Normal (test code = 52779-1) [facility] 16:31:19 Test Item Value Reference Range Interpretation Comments APTT Patient (test See_Comment [Automat ed code = 3173-2) message] The system which generated this result transmitted reference range : 23 - 38 Seconds . The reference range was not used to interpr et this result as normal/abnormal . ROSLYN (test code = ROSLYN) The [facility] patient population mean normal value for aPTT is 30 seconds. Lab Interpretation Normal (test code = 41845-7) [facility] [facility] METABOLIC PANEL ([id number])2022-07-20 16:30:19 Test Item Value Reference Range Interpretation Comments NA (test code = 133 mmol/L 135-145 L 9343756199) K (test code = 5.3 mmol/L 3.5-5 H 2732119147) CL (test code = 98 mmol/L 98-108 6094874837) CO2 TOTAL (test code = 27 mmol/L 23-31 5584993890) AGAP (test code = 2-16 2011587433) BUN (test code = 13 mg/dL 7-23 3837153637) GLUCOSE (test code = 273 mg/dL 70-110 H 2813342539) CREATININE (test code = 0.62 mg/dL 0.6-1.25 2660826792) TOTAL BILI (test code = 2.1 mg/dL 0.1-1.1 H 4042880905) CALCIUM (test code = 8.6 mg/dL 8.6-10.6 9200181812) T PROTEIN (test code = 7.3 g/dL 6.3-8.2 3489300902) ALBUMIN (test code = 4.4 g/dL 3.5-5 8547875231) ALK PHOS (test code = 61 U/L 34-122 2426545520) ALTv (test code = 29 U/L 50 1742-6) AST(SGOT) (test code = 36 U/L 13-40 0357172077) eGFR (test code = mL/min/1.73m2 2597548647) ROSLYN (test code = ROSLYN) Association of [...] tests). Lab Interpretation Abnormal (test code = 35572-4) [facility]. METABOLIC PANEL ([id number])2022-07-20 16:30:19 Test Item Value Reference Range Interpretation Comments NA (test code = 133 mmol/L 135-145 L 8691701920) K (test code = 5.3 mmol/L 3.5-5 H 4532970971) CL (test code = 98 mmol/L 98-108 5045209839) CO2 TOTAL (test code = 27 mmol/L 23-31 3440073155) AGAP (test code = 2-16 2523437266) BUN (test code = 13 mg/dL 7-23 1376973413) GLUCOSE (test code = 273 mg/dL 70-110 H 0572131183) CREATININE (test code = 0.62 mg/dL 0.6-1.25 6702945968) TOTAL BILI (test code = 2.1 mg/dL 0.1-1.1 H 1682023508) CALCIUM (test code = 8.6 mg/dL 8.6-10.6 9136477305) T PROTEIN (test code = 7.3 g/dL 6.3-8.2 2661026586) ALBUMIN (test code = 4.4 g/dL 3.5-5 6572731944) ALK PHOS (test code = 61 U/L 34-122 9464013431) ALTv (test code = 29 U/L 5-50 2-6) AST(SGOT) (test code = 36 U/L 13-40 1363332019) eGFR (test code = mL/min/1.73m2 8484491536) ROSLYN (test code = ROSLYN) Association of [...] tests). Lab Interpretation Abnormal (test code = 44157-3) [facility] / [id number] 16:29:23 Test Item Value Reference Range Interpretation Comments PROTIME PATIENT (test See_Comment [Auto mated message] code = 5964-2) The system [employer] generated this result transmitted ref erence range: 12.0 - 1 4.7 Seconds. The re ference range was not u sed to interpret this result as normal/abnor mal. INR (test code = 6301-6) Nor mal INR <1.1; Warfarin Therap eutic range 2.0 to 3. 0 or 2.5 to 3.5, dep ending upon the indica tions. Lab Interpretation (test Normal code = 22392-6) [facility] / [id number] 16:29:23 Test Item Value Reference Range Interpretation Comments PROTIME PATIENT (test See_Comment [Auto mated message] code = 5964-2) The system [employer] generated this result transmitted ref erence range: 12.0 - 1 4.7 Seconds. The re ference range was not u sed to interpret this result as normal/abnor mal. INR (test code = 6301-6) Nor mal INR <1.1; Warfarin Therap eutic range 2.0 to 3. 0 or 2.5 to 3.5, dep ending upon the indica tions. Lab Interpretation (test Normal code = 02357-8) [facility]"
[2022-10-29 17:53] LABS: Albumin 3.3 g/dL (3.4-5.0); Bilirubin Total 0.6 mg/dL (0.2-1.0); Protein, Total 7.4 g/dL (6.4-8.2); Troponin High Sensitivity 13.8 pg/mL (<58.9)
[2022-10-29 17:55] LABS: Potassium 4.4 mmol/L (3.5-5.1)
[2022-10-29 18:04] LABS: Absolute Lymphocytes (CBC) 3.1 K/uL (0.7-4.9); Hematocrit 47.3 % (39.6-49.0); Lymphocytes % 20.7 % (15.3-44.8); MCV 91.6 fL (80-100); MPV 10.5 fL (7.6-11.3); RBC Red Blood Cell Count 5.16 M/uL (4.33-5.43)
--- NOTE | 2022-10-29 18:09 | ER ---
Nurse's Notes [facility] Name: José Pta Age: 72 yrs Sex: Male : 1950 Arrival Date: 10/29/2022 Time: 16:55 Bed 15 Private MD: Diagnosis: Syncope Near Presentation: 10/29 16:56 Chief complaint: EMS states: UNWITNESSED FALL WITH DIZZINESS, NO APPARENT TRAUMA. bp Coronavirus screen: At this time, the client does not indicate any symptoms associated with coronavirus-19. Ebola Screen: No symptoms or risks identified at this time. Initial Sepsis Screen: Does the patient meet any 2 criteria? HR > 90 bpm. No. Patient's initial sepsis screen is negative. Does the patient have a suspected source of infection? No. Patient's initial sepsis screen is negative. Risk Assessment: Do you want to hurt yourself or someone else? Patient reports no desire to harm self or others. Onset of symptoms was October 29, 2022 at 16:00. Care prior to arrival: None. 16:56 Method Of Arrival: EMS: [facility] bp 16:56 Acuity: KIT 3 bp Triage Assessment: 16:59 General: Appears in no apparent distress. comfortable, unkempt, Behavior is calm, bp cooperative, appropriate for age. Pain: Complains of pain in head, right elbow, left elbow, right knee and left knee. EENT: No deficits noted. Neuro: No deficits noted. Cardiovascular: Rhythm is atrial fibrillation with rapid ventricular response. Respiratory: Breath sounds are coarse bilaterally. GI: No signs and/or symptoms were reported involving the gastrointestinal system. : No signs and/or symptoms were reported regarding the genitourinary system. Derm: No deficits noted. Musculoskeletal: No deficits noted. Historical: - Allergies: 16:59 No Known Allergies; bp - Home Meds: 16:59 Eliquis Oral [Active]; Insulin: Lantus Sub-Q [Active]; tamsulosin 0.4 mg Oral cap bp [Active]; - PMHx: 16:59 Atrial fibrillation; CHF; Chronic Chest Pain; COPD; Diabetes - IDDM; Myocardial bp infarction; Noncompliance with medications; - Immunization history:: Adult Immunizations up to date. - Social history:: Smoking status: Patient reports the use of cigarette tobacco products, unknown amount. Screenin:01 [facility] ED Fall Risk Assessment (Adult) History of falling in the last 3 months, bp including since admission Yes- physiologic fall (2 pts). Humpty Dumpty Scale Fall Assessment Tool (age< 18yrs) Age 13 years and above (1 pt). Abuse screen: Denies threats or abuse. Denies injuries from another. Nutritional screening: No deficits noted. Tuberculosis screening: No symptoms or risk factors identified. Fall Risk Fall in past 12 months (25 points). Assessment: 17:01 General: SEE TRIAGE NOTE. bp 19:04 Reassessment: PT DC HOME AMBULATORY. bp Vital Signs: 16:56 BP 117 / 59; Pulse 107; Resp 17; Temp 98.2; Pulse Ox 96% on 2 lpm NC; bp 18:32 BP 123 / 75; Pulse 89; Resp 17; Pulse Ox 98% ; bp ED Course: 16:55 Patient arrived in ED. bp 16:56 Feliberto Car PA is PHCP. cp 16:56 Tate Schmitt DO is Attending Physician. cp 16:59 Triage completed. bp 16:59 Arm band placed on. bp 17:01 Patient has correct armband on for positive identification. Bed in low position. Call bp light in reach. Side rails up X2. 17:02 Julita Cheney FNP-C is [facility]. ms3 17:24 Collins Monte, MADELEINE is Primary Nurse. bp 19:04 No provider procedures requiring assistance completed. IV discontinued, intact, bp bleeding controlled, No redness/swelling at site. Pressure dressing applied. Administered Medications: 18:30 Drug: Insulin Regular Human 5 units {Co-Signature: ko1 (Vanessa Paz RN).} Route: IVP; bp Site: right antecubital; 18:31 Follow up: Response: No adverse reaction bp Medication: 17:01 VIS not applicable for this client. bp Outcome: 18:08 Discharge ordered by MD. platt 19:04 Discharged to home ambulatory. bp 19:04 Condition: stable 19:04 Discharge instructions given to patient, Instructed on discharge instructions, follow up and referral plans. Demonstrated understanding of instructions, follow-up care. 19:05 Patient left the ED. bp Signatures: Julita Cheney FNP-C NURSING TECHN-Csnw Feliberto Car PA PA cp Collins Monte, RN RN bp Keshia Tate, DO ms3 Vanessa Paz RN ko1
--- NOTE | 2022-10-29 18:09 | EDPHYS ---
Physician Documentation [facility] Name: José Pat Age: 72 yrs Sex: Male : 1950 Arrival Date: 10/29/2022 Time: 16:55 Bed 15 Private MD: ED Physician Tate Schmitt HPI: 10/29 18:00 This 72 yrs old Male presents to ER via EMS with complaints of Dyspnea, near syncope. snw 18:00 . snw 18:01 The patient has experienced near-syncope, almost passed out. Onset: The snw symptoms/episode began/occurred acutely. Duration: The patient has had multiple episodes. Context: the episode(s) was witnessed, by no one. Associated injury: The patient did not suffer any apparent associated injury. Associated signs and symptoms: Pertinent positives: lightheadedness, dyspnea. Current symptoms: Currently, the patient is not experiencing any symptoms. The patient has experienced similar episodes in the past, chronically. just discharged with lasix, prednisone on the 17th of this month. Historical: - Allergies: 16:59 No Known Allergies; bp - Home Meds: 16:59 Eliquis Oral [Active]; Insulin: Lantus Sub-Q [Active]; tamsulosin 0.4 mg Oral cap bp [Active]; - PMHx: 16:59 Atrial fibrillation; CHF; Chronic Chest Pain; COPD; Diabetes - IDDM; Myocardial bp infarction; Noncompliance with medications; - Immunization history:: Adult Immunizations up to date. - Social history:: Smoking status: Patient reports the use of cigarette tobacco products, unknown amount. ROS: 18:03 Eyes: Negative for injury, pain, redness, and discharge, ENT: Negative for injury, snw pain, and discharge, Neck: Negative for injury, pain, and swelling, Cardiovascular: Negative for chest pain, palpitations, and edema. 18:03 Abdomen/GI: Negative for abdominal pain, nausea, vomiting, diarrhea, and constipation, Back: Negative for injury and pain, : Negative for injury, bleeding, discharge, and swelling, MS/Extremity: Negative for injury and deformity, Skin: Negative for injury, rash, and discoloration. 18:03 Constitutional: Positive for malaise. 18:03 Respiratory: Positive for shortness of breath. 18:03 Neuro: Positive for dizziness, near syncope. Exam: 17:12 Constitutional: This is a well developed, well nourished patient who is awake, alert, snw and in no acute distress. Head/Face: Normocephalic, atraumatic. Eyes: Pupils equal round and reactive to light, extra-ocular motions intact. Lids and lashes normal. Conjunctiva and sclera are non-icteric and not injected. Cornea within normal limits. Periorbital areas with no swelling, redness, or edema. ENT: Nares patent. No nasal discharge, no septal abnormalities noted, rounded erythematous nose. Tympanic membranes are normal and external auditory canals are clear. Neck: Trachea midline, no thyromegaly or masses palpated, and no cervical lymphadenopathy. Supple, full range of motion without nuchal rigidity, or vertebral point tenderness. No Meningismus. Chest/axilla: Normal chest wall appearance and motion. Nontender with no deformity. No lesions are appreciated. Cardiovascular: Regular rate and rhythm with a normal S1 and S2. No gallops, murmurs, or rubs. Normal PMI, no JVD. No pulse deficits. Respiratory: Lungs have equal breath sounds bilaterally, clear to auscultation and percussion. No rales, rhonchi or wheezes noted. Mild increased work of breathing, no retractions or nasal flaring. Abdomen/GI: Soft, non-tender, with normal bowel sounds. No distension or tympany. No guarding or rebound. No evidence of tenderness throughout. Back: No spinal tenderness. No costovertebral tenderness. Full range of motion. Skin: Warm, dry with normal turgor. Normal color with no rashes, no lesions, and no evidence of cellulitis. MS/ Extremity: Pulses equal, no cyanosis. Neurovascular intact. Full, normal range of motion. Neuro: Awake and alert, GCS 15, oriented to person, place, time, and situation. Cranial nerves II-XII grossly intact. Motor strength 5/5 in all extremities. Sensory grossly intact. Cerebellar exam normal. Normal gait. Psych: Awake, alert, with orientation to person, place and time. Behavior, mood, and affect are within normal limits. Vital Signs: 16:56 BP 117 / 59; Pulse 107; Resp 17; Temp 98.2; Pulse Ox 96% on 2 lpm NC; bp 18:32 BP 123 / 75; Pulse 89; Resp 17; Pulse Ox 98% ; bp MDM: 17:04 Patient medically screened. snw 18:03 Data reviewed: vital signs, nurses notes. Data interpreted: Pulse oximetry: on room air snw is 92 %. Interpretation: hypoxia. Plan: O2 by NC applied. Counseling: I had a detailed discussion with the patient and/or guardian regarding: the historical points, exam findings, and any diagnostic results supporting the discharge/admit diagnosis, lab results, the need for outpatient follow up, to return to the emergency department if symptoms worsen or persist or if there are any questions or concerns that arise at home. Response to treatment: the patient's condition has returned to base line. Special discussion: Based on the patient's history, exam, and Dx evaluation, there is no indication for emergent intervention or inpatient Tx. It is understood by the patient/guardian that if the Sx's persist or worsen they need to return immediately for re-evaluation. Based on the history and exam findings, there is no indication for further emergent testing or inpatient evaluation. I discussed with the patient/guardian the need to see the desktop support manager for further evaluation of the symptoms. I discussed with the patient/guardian the need to see the primary care provider for further evaluation of the symptoms. ED course: will give insulin for hyperglycemia probably more secondary to steroid use at this time. 18:07 ED course: 15 WBC is probably also secondary to steroid use, no differential shift. snw 12 17:06 Order name: Troponin High Sensitivity; Complete Time: 17:56 snw 10/29 17:06 Order name: CMP; Complete Time: 17:56 snw 10/29 17:06 Order name: EKG; Complete Time: 17:06 snw 1220 17:06 Order name: EKG - Nurse/Tech; Complete Time: 17:29 snw 1220 17:06 Order name: CBC with Diff; Complete Time: 18:06 snw EC:10 Rate is 118 beats/min. Rhythm is regular. QRS interval is prolonged. T waves are snw Inverted in leads aVL, aVR, V2, V3. Clinical impression: Abnormal EKG without significant change. Administered Medications: 18:30 Drug: Insulin Regular Human 5 units {Co-Signature: ko1 (Vanessa Paz RN).} Route: IVP; bp Site: right antecubital; 18:31 Follow up: Response: No adverse reaction bp Disposition: 17:19 Co-signature as Attending Physician, Tate Schmitt DO I was immediately available onsite ms3 in the emergency department for consultation in the care of the patient. Disposition Summary: 10/29/22 18:08 Discharge Ordered Location: Home snw Condition: Stable snw Diagnosis - Syncope Near snw Followup: snw - With: Emergency Department - When: As needed - Reason: Worsening of condition Followup: snw - With: Private Physician - When: 2 - 3 days - Reason: Recheck today's complaints, Continuance of care, Re-evaluation by your physician Discharge Instructions: - Discharge Summary Sheet snw - Near-Syncope, [id number] snw - Blood Glucose Monitoring, Adult snw - Form - Blood Pressure Record Sheet snw Forms: - Medication Reconciliation Form snw - Thank You Letter snw - Antibiotic Education snw - Prescription Opioid Use snw Signatures: Dispatcher [employer] EDMS Julita Cheney, DEAN-C COPRA SAMPLER-Csnw Collins Monte, RN RN Tate Oliveira DO DO ms3 Vanessa Paz RN ko1
[2022-10-29] MEDS ORDERED: INSULIN -REGULAR HUMAN 50 UNIT/0.5 ML ML ONE (18:31)
[2022-10-29 19:14] VITALS: TEMP 98.2
[2022-10-29 19:15] VITALS: BP 123/75; O2SAT 98
--- NOTE | 2022-10-30 14:00 | EKG ---
Test Date: 2022-10-29 Test Time: 17:02:24 Wooden Boat Builder: CLAUDIO MEASUREMENT RESULTS: Intervals: Rate: 118 OR: 200 QRSD: 136 QT: 342 QTc: 479 [place]: P: OR: 200 QRS: 269 T: 71 INTERPRETIVE STATEMENTS: Sinus tachycardia Right bundle branch block Inferior infarct, age undetermined Anteroseptal infarct, age undetermined Abnormal ECG Compared to ECG 10/26/2022 16:51:04 Atrial premature complex(es) no longer present Left-axis deviation no longer present Myocardial infarct finding still present Electronically Signed On 10-30-22 13:59:04 SENIOR SOFTWARE QUALITY ENGINEER by Gianluca Garcia
== END 2022-10-29 19:05 | disposition home or self-care (01) ==
LOC: ER 16:52
DX: R55 Syncope and collapse (principal); E11.9 Type 2 diabetes mellitus without complications; I48.91 Unspecified atrial fibrillation; I50.9 Heart failure, unspecified; Z79.01 Long term (current) use of anticoagulants; Z79.4 Long term (current) use of insulin; Z72.0 Tobacco use
CPT/HCPCS: 85025; 36415; 84484; 80053; J1815; 93005; 96374; 99284

== ENCOUNTER 2022-11-05 14:40 | Observation (INO) | payer OTHER ==
--- OUTSIDE RECORDS SUMMARY | 2022-11-05 14:48 | XMS REPORT | Continuity of Care Document ---
:1950 Author Organization [facility] t Address [address] [place] [address] Care Team Providers Name Role Phone Pcp, Patient Does Not Have A Primary Care Physician [phone] Attending Clinician Unavailable Meghana Ayala Attending Clinician Unavailable Jose Kim Rahil Attending Clinician Unavailable La Foster RN Attending Clinician Unavailable Charlene Butt DO Attending Clinician Atul Stephens MD Attending Clinician Berna Alcantar MD Attending Clinician [phone] BERNA ALCANTAR Attending Clinician Unavailable Orlando Cannon MD Attending Clinician [id number] Admitting Clinician Unavailable Jose Kim Rahil Admitting Clinician Unavailable Berna Alcantar MD Admitting Clinician [phone] BERNA ALCANTAR Admitting Clinician Unavailable Payers Payer Name Policy Type Policy Number Effective Date Expiration Date S cindy [facility] [id number] Problems Condition Condition Condition Status Onset Resolution [...] Added automatic ally from request for surgery [id number] CHF CHF Problem Active Common (congestiv (congestiv Sp anabela e heart e heart - CHI failure) failure) [facility] Hypertensi Hypertensi Problem Active C ommon on on Spirit - CHI [facility] Diabetes Diabetes Problem Active Commo n type 2, type 2, Spirit controlled controlled - [facility] COPD COPD Problem Active Common (chronic (chronic Spirit obstructiv obstructiv - [facility] e e St pulmonary pulmonary [place] s disease) disease) [facility] Nicotine Nicotine Problem Active Commo n dependence dependence Sp anabela - [facility] Seasonal Seasonal Problem Active Commo n allergic allergic [facility] rhinitis rhinitis - [facility] Adjustment Adjustment Problem Active C ommon disorder disorder Spirit with with - CHI depressed depressed St mood mood [facility] Chronic Chronic Problem Active Common fatigue fatigue Spirit - [facility] Type 2 Type 2 Problem [...] Univers ALLERGIE Class ity of S [facility] Social History Social Habit Start Date Stop Date Quantity Comments Source History of Cigarette Smoker Universi ty of tobacco use [place] [facility] [place] History [facility] Food 2022-07-29 2022-07-29 1 Univers ity of Worry 00:00:00 00:00:00 [place] [facility] History SDOH Food 2022-07-29 2022-07-29 1 Univers ity of Scarcity 00:00:00 00:00:00 [place] [facility] History SDOH 2022-07-29 2022-07-29 2 University o f Transport Med 00:00:00 00:00:00 [place] [facility] History [facility] 2022-07-29 2022-07-29 2 University o f Transport Non-Med 00:00:00 00:00:00 [place] [facility] edical Branch Tobacco use and 2022-07-21 2022-07-21 Smokeless tobacco Un iversity of exposure 00:00:00 00:00:[address] [facility] Exposure to 2022-07-10 2022-07-20 Not sure [facility] SARS-CoV-2 00:00:00 10:56:00 [facility] (event) Branch Sex Assigned At [birth year] Universit y of 00:00:00 00:00:00 [facility] Smoking Status Start Date Stop Date Source Smokes tobacco daily 2022-07-21 00:00:[address] [facility] Medications Ordered Filled Start Stop Current [...] Until Discontinu ed, Routine furosemide 2021-0 Yes [id number] 40mg Take 1 Univers 40 mg 9-18 tablet by ity of tablet 00:00: mouth in [place] 00 the Medical morning Branch and 1 tablet in the evening. metoprolol 2021-0 Yes [id number] 50mg Take 1 Univers succinate 9-18 tablet by ity o f XL 50 mg 24 00:00: [place] hr tablet 00 the Medical morning. Branch spironolact 2021-0 Yes [id number] 25mg Take 1 Univers one 25 mg 9-18 tablet by ity o f tablet 00:00: mouth in [place] 00 the Medical morning. Branch furosemide 2021-0 Yes [id number] 40mg Take 1 Univers 40 mg 9-18 tablet by ity of tablet 00:00: mouth in [place] 00 the Medical morning Branch and 1 tablet in the evening. metoprolol 2021-0 Yes [id number] 50mg Take 1 Univers succinate 9-18 tablet by ity o f XL 50 mg 24 00:00: [place] hr tablet 00 the Medical morning. Branch spironolact 2021-0 Yes [id number] 25mg Take 1 Univers one 25 mg 9-18 tablet by ity o f tablet 00:00: mouth in [place] 00 the Medical morning. Branch furosemide 2021-0 Yes [id number] 40mg Take 1 Univers 40 mg 9-18 tablet by ity of tablet 00:00: mouth in [place] 00 the Medical morning Branch and 1 tablet in the evening. metoprolol 2021-0 Yes [id number] 50mg Take 1 Univers succinate 9-18 tablet by ity o f XL 50 mg 24 00:00: [place] hr tablet 00 the Medical morning. Branch spironolact 2021-0 Yes [id number] 25mg Take 1 Univers one 25 mg [...] mouth 2 ity of ORAL) 21:46: (two) [place] [id number] times Medical daily. Branch insulin Yes 15U [...] Branch 07/26/22 at 2030, Routine atorvastati Yes [id number] 40mg Take 1 Univers n 40 mg -17 tablet by ity of tablet 00:00: mouth at [place] 00 bedtime. Medical Branch apixaban Yes [id number] 5mg Take 1 Univers (ELIQUIS) 5 9-17 tablet by ity of mg tablet 00:00: [place] the Medical morning Branch and 1 tablet in the evening. Indication s: atrial fibrillati on atorvastati Yes [id number] 40mg Take 1 Univers n 40 mg 9-17 tablet by ity of tablet 00:00: mouth at [place] 00 bedtime. Medical Branch apixaban Yes [id number] 5mg Take 1 Univers (ELIQUIS) 5 9-17 tablet by ity of mg tablet 00:00: [place] the Medical morning Branch and 1 tablet in the evening. Indication s: atrial fibrillati on atorvastati Yes [id number] 40mg Take 1 Univers n 40 mg [...] ed insulin 2021- No 15U 15 Units, [facility] ers glargine 07-26 Subcutaneo ity of [...] magnesium 2021- No 2g 2 g, IV [facility] ers sulfate in 07-26 Piggyback, it [...] 1000, Routine metoprolol Yes 50mg 50 mg, [facility] succinate 07-24 Oral, ity of XL (TOPROL 14:15: DAILY, [place] XL) tablet 00 First dose Med ical 50 mg on Wed Branch 07/24/22 at 0915, Until Discontinu ed, Routine metoprolol 2021- No 50mg 50 mg, [facility] ers succinate 07-24 Oral, ity of XL (TOPROL 14:15: 04:46 DAILY, [facility] s XL) tablet 00 :24 [...] Rang e, Dosing and Testing: &nbs p;FOR [facility], [facility], AND [facility] ONLY - aPTT < 35: [...] Rang e, Dosing and Testing: &nbs p;FOR [facility], [facility], AND C CAMPUSES ONLY - aPTT [...] 300 units/hr&n bsp; - aPTT 40-49:&nbs p; Viajy joyce 3000 units, increase rate 200 units/hr&n [...] 53 Starting Medi jose tablet 1 on [facility] tablet 07/23/22 at 1031, Until Discontinu ed, Routine, Pain (scale 4-6) HYDROcodone 2021-0 2021- No 1{tbl} 1 tablet, Univers -acetaminop 07-23-18 Oral, ity of hen (NORCO 15:31: 04:46 Q6HPRN, [place] as 5) 5-325 mg 53 :24 Starting Medi jose tablet 1 on Fri [place] tablet 07/23/22 at 1031, Until 07/27/22 at [...] [place] mg 00 First dose Medical on [facility] 07/22/22 at 0900, Until Discontinu ed, Routine montelukast Yes 10mg 10 mg, Univ ers (SINGULAIR) 07-22 Oral, ity of tablet 10 14:00: DAILY, [place] mg 00 First dose Medical on [facility] 07/22/22 at 0900, Until Discontinu ed, Routine spironolact 2021- No 25mg 25 mg, Uni vers one 07-22 Oral, ity of (ALDACTONE) 14:00: 04:46 DAILY, [place] as tablet 25 00 :24 First dose Medi jose mg on [facility] 07/22/22 at 0900, Until Discontinu ed, Routine aspirin No 81mg 81 mg, Univers chewable 07-22 Oral, ity of tablet 81 14:00: 04:46 DAILY, [place] mg 00 :24 First dose Medical on [facility] 07/22/22 at 0900, Until Discontinu ed, Routine losartan 2021- No 25mg 25 mg, Univer s (COZAAR) 07-22 Oral, ity of tablet 25 14:00: 04:46 DAILY, [place] mg 00 :24 First dose Medical on [facility] 07/22/22 at 0900, Until Discontinu ed, Routine montelukast No 10mg 10 mg, Uni vers (SINGULAIR) 07-22 Oral, ity of tablet 10 14:00: 04:46 DAILY, [place] mg 00 :24 First dose Medical on [facility] 07/22/22 at 0900, Until Discontinu ed, Routine metoprolol No 50mg 50 mg, Univ ers tartrate 07-22 Oral, BID ity o f (LOPRESSOR) 13:00: 14:10 MEALS, [place] as tablet 50 00 :14 First dose Medi jose mg on [facility] 07/22/22 at 0800, Until Discontinu ed, Routine atorvastati Yes 40mg 40 mg, Univ ers n (LIPITOR) 07-22 Oral, QHS, it y of tablet 40 02:00: [place] dose [place] mg 00 on [facility] 07/21/22 at Branch 2100, Until Discontinu ed, Routine atorvastati 2021- No 40mg 40 mg, Uni vers n (LIPITOR) 07-22 Oral, QHS, i ty of tablet 40 02:00: 04:46 First dose [place] mg 00 :24 on [facility] 07/21/22 at Branch 2100, Until Discontinu ed, Routine morpHINE (2 2021- No 2mg 2 mg, Slow Univers mg/mL) 07-22 IV Push, ity of injection 2 01:29: 15:32 Q6HPRN, [place] mg 07 :09 Starting Medical on [facility] 07/21/22 at 2029, Until 07/23/22 at 1032, Routine, Chest pain furosemide 2021- No 20mg 20 mg, IV U nivers (LASIX) 07-22 Push, ity of injection 01:00: 05:27 Q12H, [place] 20 mg 00 :42 First dose Medical (after Branch last reorder) on [place] 07/21/22 at 2000, Until Discontinu ed, LORI enoxaparin 2021- No 1mg/kg 100 mg Un rita (LOVENOX) 07-22 (rounded ity o f injection 01:00: 05:30 [place] 98.5 [place] 100 mg 00 :31 mg = 1 Medical mg/kg Branch ?98.5 kg), Subcutaneo us, Q12H, First dose (after last modificati on) on [place] 07/21/22 at 2000, Until Discontinu ed, Routine sulfur 2021- No [id number] 5mL 5 mL, Unive rs hexafluorid 07-21 Intravenou i ty of e microsphr 15:45: 15:45 s, ONCE, 1 [place] (LUMASON) 00 :00 dose, On Medica l injection 5 Sun Branch mL 07/21/22 at 1045, Routine
hourly team members approving Restricted medication : ANA LUISA GRIMM [...] dose [place] Lispro 00 :26 on [facility] Medical (HumaLOG) + 07/20/22 at Br anch Fsbg 1900, Testing Until Discontinu ed, Routine glucagon Yes 1mg 1 mg, Univers (GLUCAGEN 07-20 Intramuscu ity of DIAGNOSTIC 23:48: lar, PRN, [place] KIT) 16 Starting Medical injection 1 on [facility] Branch 07/20/22 at 1848, Until Discontinu ed, LORI, Blood Glucose < or = 70 mg/dL and patient is unable to swallow or has mental changes. dextrose 50 Yes 25mL 25 mL, Univ ers % in water 07-20 Slow IV ity of (D50W) 23:48: Push, PRN, [place] injection 16 Starting Medica l 25 mL on [facility] Branch 07/20/22 at 1848, Until Discontinu ed, LORI, Blood Glucose < or = 70 mg/dL and patient is unable to swallow or has mental status changes. glucagon 2021- No 1mg 1 mg, Univers (GLUCAGEN 07-2018 Intramuscu ity of DIAGNOSTIC 23:48: 04:46 lar, PRN, [place] KIT) 16 :24 Starting Medical injection 1 on [facility] Branch mg 07/20/22 at 1848, [...] status changes. metoprolol No 25mg 25 mg, [facility] ers tartrate 07-20 Oral, Q6H, ity [...] 00 :00 dose, On Medica l mg [facility] Branch 07/20/22 at 1300, LORI [...] [place] mg 00 :00 dose, On Medical [facility] Branch 07/20/22 at 1115, LORI Trelegy Trelegy 2020- No Meghana 1 puff Com mon Ellipta Ellipta 2-12 06-11 [place] [facility] 00:00: 00:00 - [facility]I 00 :00 [facility] HydrOXYzine HydrOXYzine Yes Meghana 1 tablet Common HCl HCl 05-11 [place] as needed Spirit 00:00: - CHI 00 [facility] Ozempic Ozempic 2020- No Meghana 0.5 mg Com mon 05-11 0824 [place] Spirit 00:00: 00:00 - CHI 00 :00 [facility] Rae Mcbride Yes Meghana as Common 1-02 [place] directed Spirit 00:00: - CHI 00 [facility] ProAir ProAir Yes Meghana 2 puffs as Comm on RespiClick RespiClick [place] needed [facility] [place] 3 [place] 3 Yes Meghana 1 capsule Com mon [place] [facility] Montelukast Montelukast Yes Meghana 1 tablet Common Sodium Sodium [place] in the [facility] evening [facility] Lipitor Lipitor Yes Meghana 1 tablet Comm on [place] [facility] Losartan Losartan Yes Meghana 1 tablet Co mmon Potassium Potassium [place] Spir it [facility] Metoprolol Metoprolol Yes Meghana 1 tablet Common Tartrate Tartrate [place] with food S pirit [facility] Metformin Metformin Yes Meghana 1 tablet Common HCl HCl [place] with a Spirit meal [facility] Immunizations Ordered Immunization Filled Immunization Date Status Commen ts Source Name Name FLUZONE HIGH DOSE FLUZONE HIGH DOSE 2019-09-14 Completed Common Spirit OVER 65 OVER 65 00:00:00 [facility] Vital Signs Vital Name Observation Time Observation Value Comments Source Systolic blood 2022-07-28 01:43:00 99 mm[Hg] Univer sity of pressure [facility] Diastolic blood 2022-07-28 01:43:00 58 mm[Hg] [facility] rate 2022-07-28 01:40:00 97 /min [facility] Body temperature 2022-07-28 01:40:00 36.56 Melvi [facility] [place] [place] Respiratory rate 2022-07-28 01:40:00 18 /min [facility] Oxygen saturation in 2022-07-28 01:40:00 90 /min [facility] Arterial blood by [facility] Pulse oximetry Branch Body height 2022-07-26 17:49:00 172.7 cm [facility] Body weight 2022-07-26 17:49:00 96.163 kg [facility] BMI 2022-07-26 17:49:00 32.23 kg/m2 [facility] Systolic blood 2022-07-26 23:31:00 102 mm[Hg] Univer sity of pressure [facility] Diastolic blood 2022-07-26 23:31:00 59 mm[Hg] Unive rsity of [facility] Heart rate 2022-07-26 23:31:00 85 /min [facility] Body temperature 2022-07-26 23:31:00 36.56 Melvi [facility] [place] [place] Respiratory rate 2022-07-26 23:24:00 19 /min [facility] Oxygen saturation in 2022-07-26 23:24:00 93 /min [facility] Arterial blood by [facility] Pulse oximetry [place] Body height 2022-07-26 17:49:00 172.7 cm [facility] Body weight 2022-07-26 17:49:00 96.163 kg [facility] BMI 2022-07-26 17:49:00 32.23 kg/m2 [facility] Procedures Procedure Date / Time Performing Clinician Source Performed POCT GLUCOSE (AUTOMATED) 2022-07-27 16:45:[address] [facility] POCT GLUCOSE (AUTOMATED) 2022-07-27 16:45:00 Berna Alcantar [facility] MAGNESIUM 2022-07-27 10:46:00 [facility] BASIC METABOLIC PANEL (NA, 2022-07-27 10:46:00 Flora Fox [facility] K, CL, CO2, GLUCOSE, BUN, Medica l Branch CREATININE, CA) N-TERMINAL PRO-BNP 2022-07-27 10:46:00 [facility] 2022-07-27 10:46[facility] (NA, 2022-07-27 10:46:00 [facility], [facility], CO2, GLUCOSE, BUN, Medica l Branch CREATININE, CA) N-TERMINAL PRO-BNP 2022-07-27 10:46:[address] [facility] POCT GLUCOSE (AUTOMATED) 2022-07-27 10:38:00 Keo Alcantarm Uni versity of [facility] POCT GLUCOSE (AUTOMATED) 2022-07-27 10:38:00 KhbettyfeKeom Uni versity of [facility] POCT GLUCOSE (AUTOMATED) 2022-07-27 04:51:00 KhbettyfeKeom Uni versity of [facility] POCT GLUCOSE (AUTOMATED) 2022-07-27 04:51:00 Keo Alcantarm Uni versity of [facility] POCT GLUCOSE (AUTOMATED) 2022-07-27 01:10:00 Keo Alcantarm Uni versity of [facility] POCT GLUCOSE (AUTOMATED) 2022-07-27 01:10:00 KhbettyfeDavidsam Uni versity of [facility] POCT GLUCOSE (AUTOMATED) 2022-07-26 23:37:00 Keo Alcantarm Uni versity of [facility] POCT GLUCOSE (AUTOMATED) 2022-07-26 23:37:00 Keo Alcantarm Uni versity of [facility] ACTIVATED PARTIAL THRMPLAS 2022-07-26 23:10:00 [facility]IVATED PARTIAL THRMPLAS 2022-07-26 23:10:00 [facility] CARDIAC CATHETERIZATION 2022-07-26 21:16:[address] [facility] ersity of [facility] CARDIAC CATHETERIZATION 2022-07-26 21:16:[address] [facility] ersity of [facility] CARDIAC CATHETERIZATION 2022-07-26 21:16:[address] [facility] ersity of [facility] CARDIAC CATHETERIZATION 2022-07-26 21:16:04 [facility] ers[facility] of [facility] CARDIAC CATHETERIZATION 2022-07-26 21:16:[address] [facility] ersity of [facility] CARDIAC CATHETERIZATION 2022-07-26 21:16:[address] [facility] ersity of [facility] CARDIAC CATHETERIZATION 2022-07-26 21:16:[address] [facility] ersity of [facility] CARDIAC CATHETERIZATION 2022-07-26 21:16:[address] [facility] ersity of [facility] CATH PROCEDURE LOG 2022-07-26 20:55:04 Sherman [facility] CATH PROCEDURE LOG 2022-07-26 20:55:04 Sherman [facility] POCT GLUCOSE (AUTOMATED) 2022-07-26 16:20:00 Berna Alcantar Uni versity of [facility] POCT GLUCOSE (AUTOMATED) 2022-07-26 16:20:00 Berna Alcantar Uni versity of [facility] POCT GLUCOSE (AUTOMATED) 2022-07-26 12:30:00 Berna Alcantar Uni versity of [facility] POCT GLUCOSE (AUTOMATED) 2022-07-26 12:30:00 Berna Alcantar Uni versity of [facility] POCT GLUCOSE (AUTOMATED) 2022-07-26 11:08:00 Berna Alcantar Uni versity of [facility] POCT GLUCOSE (AUTOMATED) 2022-07-26 11:08:00 Berna Alcantar Uni versity of [facility] POCT GLUCOSE (AUTOMATED) 2022-07-26 08:52:00 Berna Alcantar Uni versity of [facility] POCT GLUCOSE (AUTOMATED) 2022-07-26 08:52:00 Berna Alcantar Uni versity of [facility] MAGNESIUM 2022-07-26 05:35:00 [facility] BASIC METABOLIC PANEL (NA, 2022-07-26 05:35:00 Tobias [facility] K, CL, CO2, GLUCOSE, BUN, Medica l Branch CREATININE, CA) ACTIVATED PARTIAL THRMPLAS 2022-07-26 05:35:00 Evelio Soni [facility] EXTRA TUBE LAV 2022-07-26 05:35:00 [facility] MAGNESIUM 2022-07-26 05:35:00 Tobias [facility] BASIC METABOLIC PANEL (NA, 2022-07-26 05:35:00 Tobias [facility] K, CL, CO2, GLUCOSE, BUN, Medica l Branch CREATININE, CA) ACTIVATED PARTIAL THRMPLAS 2022-07-26 05:35:00 Evelio Soni [facility] EXTRA TUBE LAV 2022-07-26 05:35:00 Sherman [facility] POCT GLUCOSE (AUTOMATED) 2022-07-26 05:20:00 Berna Alcantar [facility] PO[facility] GLUCOSE (AUTOMATED) 2022-07-26 05:20:00 Berna [facility] PO[facility] GLU[facility]SE (AUTOMATED) 2022-07-26 01:45:00 Berna [facility] PO[facility]SE (AUTOMATED) 2022-07-26 01:45:00 Berna [facility]antar [facility] MAGN[facility]UM 2022-07-25 22:15:00 Tobias [facility] BASIC METABOLIC PANEL (NA, 2022-07-25 22:15:00 Tobias [facility] K, CL, CO2, GLUCOSE, BUN, Medica l Branch CREATININE, CA) ACTIVATED PARTIAL THRMPLAS 2022-07-25 22:15:00 Evelio Soni [facility] MAGNESIUM 2022-07-25 22:15:00 Tobias [facility] BASIC METABOLIC PANEL (NA, 2022-07-25 22:15:00 Tobias [facility] K, CL, CO2, GLUCOSE, BUN, Medica l Branch CREATININE, CA) ACTIVATED PARTIAL THRMPLAS 2022-07-25 22:15:00 Evelio Soni niversalberto [facility] POCT GLUCOSE (AUTOMATED) 2022-07-25 21:22:00 Berna Alcantar Uni versity of [facility] POCT GLUCOSE (AUTOMATED) 2022-07-25 21:22:00 Berna Alcantar Uni versity of [facility] POCT GLUCOSE (AUTOMATED) 2022-07-25 20:46:00 Berna Alcantar Uni versity of [facility] POCT GLUCOSE (AUTOMATED) 2022-07-25 20:46:00 Berna Alcantar Uni versity of [facility] POCT GLUCOSE (AUTOMATED) 2022-07-25 17:09:00 Berna Alcantar Uni versity of [facility] POCT GLUCOSE (AUTOMATED) 2022-07-25 17:09:00 Berna Alcantar Uni versity of [facility] HB ECG ROUTINE & RHYTHM 2022-07-25 14:53:13 Berna Collado [facility] ACTIVATED PARTIAL THRMPLAS 2022-07-25 14:53:00 [facility]IV[facility] PART[facility] THRMPLAS 2022-07-25 14:53:00 Evelio Soni niversalberto [facility] POCT GLUCOSE (AUTOMATED) 2022-07-25 13:12:00 Berna Alcantar Uni versity of [facility] POCT GLUCOSE (AUTOMATED) 2022-07-25 13:12:00 Berna Alcantar Uni versity of [facility] MAGNESIUM 2022-07-25 11:36:00 Tobias [facility] BASIC METABOLIC PANEL (NA, 2022-07-25 11:36:00 Tobias [facility] K, CL, CO2, GLUCOSE, BUN, Medica l Branch CREATININE, CA) CBC WITH DIFF 2022-07-25 11:36:00 Tobias [facility] MAGNESIUM 2022-07-25 11:36:00 Tobias [facility] BASIC METABOLIC PANEL (NA, 2022-07-25 11:36:00 Tobias [facility] K, CL, CO2, GLUCOSE, BUN, Medica l Branch CREATININE, CA) CBC WITH DIFF 2022-07-25 11:36:00 Tobias [facility] ACTIVATED PARTIAL THRMPLAS 2022-07-25 05:15:00 Evelio Soni [facility] ACTIVATED PARTIAL THRMPLAS 2022-07-25 05:15:00 [facility]) 2022-07-25 01:58:00 Berna Alcantar [facility] POCT GLUCOSE (AUTOMATED) 2022-07-25 01:58:00 Berna Alcantar [facility] MAGNESIUM 2022-07-24 22:34:00 Tobias [facility] BASIC METABOLIC PANEL (NA, 2022-07-24 22:34:00 Tobias [facility] K, CL, CO2, GLUCOSE, BUN, Medica l Branch CREATININE, CA) ACTIVATED PARTIAL THRMPLAS 2022-07-24 22:34:00 Evelio Soni [facility] MAGNESIUM 2022-07-24 22:34:00 Tobias [facility] BASIC METABOLIC PANEL (NA, 2022-07-24 22:34:00 Tobias [facility] K, CL, CO2, GLUCOSE, BUN, Medica l Branch CREATININE, CA) ACTIVATED PARTIAL THRMPLAS 2022-07-24 22:34:00 Evelio Soni [facility] POCT GLUCOSE (AUTOMATED) 2022-07-24 20:43:[address] [facility] POCT GLUCOSE (AUTOMATED) 2022-07-24 20:43:00 Berna Alcantar Uni versity of [facility] POCT GLUCOSE (AUTOMATED) 2022-07-24 17:11:00 Berna Alcantar Uni versity of [facility] POCT GLUCOSE (AUTOMATED) 2022-07-24 17:11:00 Berna Alcantar Uni versity of [facility] [facility] POCT GLUCOSE (AUTOMATED) 2022-07-24 14:11:00 Berna Alcantar Uni versity of [facility] POCT GLUCOSE (AUTOMATED) 2022-07-24 14:11:00 Berna Alcantar Uni versity of [facility] ACTIVATED PARTIAL THRMPLAS 2022-07-24 11:37:00 Evelio Soni [facility] ACTIVATED PARTIAL THRMPLAS 2022-07-24 11:37:00 [facility]-24 05:51:00 Evelio Soni [facility] BASIC METABOLIC PANEL (NA, 2022-07-24 05:51:00 [facility], CO2, GLUCOSE, BUN, Medica l Branch CREATININE, CA) PROTHROMBIN TIME / INR 2022-07-24 05:51:00 Evelio Soni [facility] ACTIVATED PARTIAL THRMPLAS 2022-07-24 05:51:00 Evelio Soni [facility] MAGNESIUM 2022-07-24 05:51:00 Evelio Soni [facility] BASIC METABOLIC PANEL (NA, 2022-07-24 05:51:00 [facility], [facility], CO2, GLUCOSE, BUN, Medica l Branch CREATININE, CA) PROTHROMBIN TIME / INR 2022-07-24 05:51:00 Evelio Soni [facility] ACTIVATED PARTIAL THRMPLAS 2022-07-24 05:51:00 Evelio Soni [facility] POCT GLUCOSE (AUTOMATED) 2022-07-24 01:53:00 Atul Stephens [facility] POCT GLUCOSE (AUTOMATED) 2022-07-24 01:53:00 Atul Stephens Rafael[facility] POCT GLUCOSE (AUTOMATED) 2022-07-23 21:31:00 Atul Stephens Rafaela [facility] POCT GLUCOSE (AUTOMATED) 2022-07-23 21:31:00 Atul Stephens Rafaela [facility] POCT GLUCOSE (AUTOMATED) 2022-07-23 17:08:00 Atul Stephens [address] [facility] [place] [place] [facility]UCOSE (AUTOMATED) 2022-07-23 17:08:00 Atul Stephens Rafael[facility] POCT GLUCOSE (AUTOMATED) 2022-07-23 12:46:00 Atul Stephens Rafaela [facility] POCT GLUCOSE (AUTOMATED) 2022-07-23 12:46:00 Atul Stephens Rafaela [facility] MAGNESIUM 2022-07-23 09:15:00 [facility]OLIC PANEL (NA, 2022-07-23 09:15:00 [facility], CO2, GLUCOSE, BUN, Medica l Branch CREATININE, CA) CBC WITH DIFF 2022-07-23 09:15:00 [facility] N-TERMINAL PRO-BNP 2022-07-23 09:15:00 George Vizcaino [facility] MAGNESIUM 2022-07-23 09:15:00 [facility] BASIC METABOLIC PANEL (NA, 2022-07-23 09:15:00 [facility], CL, CO2, GLUCOSE, BUN, Medica l Branch CREATININE, CA) CBC WITH DIFF 2022-07-23 09:15:00 [facility] N-TERMINAL PRO-BNP 2022-07-23 09:15:00 George Vizcaino [facility] POCT GLUCOSE (AUTOMATED) 2022-07-23 02:12:00 Atul Stephens Uni [facility] POCT GLUCOSE (AUTOMATED) 2022-07-23 02:12:00 Atul Stephens [facility] POCT GLUCOSE (AUTOMATED) 2022-07-22 21:12:00 Atul Stephens Rafaela [facility] POCT GLUCOSE (AUTOMATED) 2022-07-22 21:12:00 Atul Stephens [facility] POCT GLUCOSE (AUTOMATED) 2022-07-22 16:30:00 Atul Stephens Rafaela [facility] POCT GLUCOSE (AUTOMATED) 2022-07-22 16:30:00 Atul Stephens [facility] [place] [place] POCT GLUCOSE (AUTOMATED) 2022-07-22 12:51:00 Atul Stephens [facility] POCT GLUCOSE (AUTOMATED) 2022-07-22 12:51:00 Atul Stephens [facility] PHOSPHORUS 2022-07-22 08:19:00 Atul Stephens [facility] MAGNESIUM 2022-07-22 08:19:00 Angelo [facility] HEPATIC FUNCTION PANEL 2022-07-22 08:19:00 Atul Stephens [facility] ([id number]) (ALB,T.PRO,BILI Medical Branch T,BU/BC,ALT,AST,ALK PHOS) BASIC METABOLIC PANEL (NA, 2022-07-22 08:19:00 Atul Stephens [facility] K, CL, CO2, GLUCOSE, BUN, Medica l Branch CREATININE, CA) CBC WITH DIFF 2022-07-22 08:19:00 [facility] PRO-BNP 2022-07-22 08:19:00 [facility] PHOSPHORUS 2022-07-22 08:19:00 Atul Stephens [facility] MAGNESIUM 2022-07-22 08:19:00 Angelo [facility] HEPATIC FUNCTION PANEL 2022-07-22 08:19:00 Atul Stephens [facility] ([id number]) (ALB,T.PRO,BILI Medical Branch T,BU/BC,ALT,AST,ALK PHOS) BASIC METABOLIC PANEL (NA, 2022-07-22 08:19:00 Atul Stephens [facility] K, CL, CO2, GLUCOSE, BUN, Medica l Branch CREATININE, CA) CBC WITH DIFF 2022-07-22 08:19:[address] [facility] N-TERMINAL PRO-BNP 2022-07-22 08:19:00 [facility] POCT GLUCOSE (AUTOMATED) 2022-07-22 01:44:00 Atul Stephens versalberto of [facility] POCT GLUCOSE (AUTOMATED) 2022-07-22 01:44:00 Atul Stephens versalberto of [facility] POCT GLUCOSE (AUTOMATED) 2022-07-21 21:52:[address] [facility] POCT GLUCOSE (AUTOMATED) 2022-07-21 21:52:00 Atul Stephens versity of [facility] POCT GLUCOSE (AUTOMATED) 2022-07-21 16:43:00 Atul Stephens versalberto of [facility] POCT GLUCOSE (AUTOMATED) 2022-07-21 16:43:[address] [facility] [place] [place] TRANSTHORACIC ECHO (TTE) 2022-07-21 15:28:00 Atul Stephens [facility] W/ CONTRAST Medical [facility] TRANSTHORACIC ECHO (TTE) 2022-07-21 15:28:00 Atul Stephens [facility] W/ CONTRAST [facility] POCT GLUCOSE (AUTOMATED) 2022-07-21 15:00:00 Atul Stephens versalberto of [facility] POCT GLUCOSE (AUTOMATED) 2022-07-21 15:00:00 Atul Stephens versity of [facility] POCT GLUCOSE (AUTOMATED) 2022-07-21 13:04:00 Atul Stephens versalberto of [facility] POCT GLUCOSE (AUTOMATED) 2022-07-21 13:04:[address] [facility] [place] [place] MAGNESIUM 2022-07-21 09:41:00 Atul Stephens [facility] TROPONIN I 2022-07-21 09:41:00 Atul Stephens [facility] BASIC METABOLIC PANEL (NA, 2022-07-21 09:41:00 Atul Stephens [facility] K, CL, CO2, GLUCOSE, BUN, Medica l Branch CREATININE, CA) LIPID PANEL ([id number])(TOTAL 2022-07-21 09:41:00 Ana Luisa Grimm [facility]IG[facility], HDL) CBC WITH DIFF 2022-07-21 09:41:00 Angelo [facility] N-TERMINAL PRO-BNP 2022-07-21 09:41:00 Atul Stephens [facility] MAGNESIUM 2022-07-21 09:41:00 Angelo [facility] TROPONIN I 2022-07-21 09:41:00 Atul Stephens [facility] BASIC METABOLIC PANEL (NA, 2022-07-21 09:41:00 Atul Stephens [facility] K, CL, CO2, GLUCOSE, BUN, Medica l Branch CREATININE, CA) LIPID PANEL (01535)(TOTAL 2022-07-21 09:41:00 Ana Luisa Grimm [facility] CHOLESTEROL, Medical [place] TRIGLYCERIDES, HDL) CBC WITH DIFF 2022-07-21 09:41:00 Atul Stephens [facility] N-TERMINAL PRO-BNP 2022-07-21 09:41:00 Atul Stephens [facility] POCT GLUCOSE (AUTOMATED) 2022-07-21 04:09:00 Atul Stephens [facility] POCT GLUCOSE (AUTOMATED) 2022-07-21 04:09:00 Atul Stephens [facility] BLOOD CULTURE SCREEN 2022-07-21 01:45:00 Atul Stephens [facility] BLOOD CULTURE WORKUP 2022-07-21 01:45:00 Atul Stephens [facility] GRAM POSITIVE BLOOD 2022-07-21 01:45:00 Atul Stephens [facility] PATHOGENS DNA [facility] PROBE-AEROBIC BLOOD CULTURE SCREEN 2022-07-21 01:45:00 Atul Stephens [facility] BLOOD CULTURE WORKUP 2022-07-21 01:45:00 Atul Stephens [facility] GRAM POSITIVE BLOOD 2022-07-21 01:45:00 Atul Stephens [facility] PATHOGENS DNA [facility] PROBE-AEROBIC POCT GLUCOSE (AUTOMATED) 2022-07-21 01:26:00 Atul Stephens [facility] POCT GLUCOSE (AUTOMATED) 2022-07-21 01:26:00 Atul Stephens [facility] BLOOD CULTURE SCREEN 2022-07-20 23:43:00 Atul Stephens [facility] BLOOD CULTURE SCREEN 2022-07-20 23:43:00 Atul Stephens [facility] POCT GLUCOSE (AUTOMATED) 2022-07-20 22:24:00 Atul Stephens [facility] POCT GLUCOSE (AUTOMATED) 2022-07-20 22:24:00 Atul Stephens [facility] hospital URINALYSIS 2022-07-20 17:41:00 Filomena [facility] URINALYSIS 2022-07-20 17:41:00 Filomena [facility] XR CHEST 1 VW 2022-07-20 16:16:00 Charlene Butt [facility] XR CHEST 1 VW 2022-07-20 16:16:00 Filomena [facility] TROPONIN I 2022-07-20 16:10:00 Filomena [facility] COMP. METABOLIC PANEL 2022-07-20 16:10:00 Charlene Butt [facility] ([id number]) [facility] CBC WITH DIFF 2022-07-20 16:10:00 Filomena [facility] GLYCOSYLATED HEMOGLOBIN 2022-07-20 16:10:00 Atul Stephens [facility] ([facility]) Medical Branch PROTHROMBIN TIME / INR 2022-07-20 16:10:00 Charlene Butt [facility] ACTIVATED PARTIAL THRMPLAS 2022-07-20 16:10:00 Saniya Butt [facility] N-TERMINAL PRO-BNP 2022-07-20 16:10:00 Charlene Butt [facility] COVID-19 (ID NOW RAPID 2022-07-20 16:10:00 Charlene Butt [facility] TESTING) Medical Branch LAB ONLY COVID 2022-07-20 16:10:00 Charlene Butt [facility] TROPONIN I 2022-07-20 16:10:00 Charlene Butt [facility] COMP. METABOLIC PANEL 2022-07-20 16:10:00 Charlene Butt [facility] ([id number]) Medical Branch CBC WITH DIFF 2022-07-20 16:10:00 Charlene Butt [facility] GLYCOSYLATED HEMOGLOBIN 2022-07-20 16:10:00 Atul Stephens [facility] (A1[facility]) Medical Branch PROTHROMBIN TIME / INR 2022-07-20 16:10:00 Charlene Butt [facility] ACTIVATED PARTIAL THRMPLAS 2022-07-20 16:10:00 Saniya Butt [facility] N-TERMINAL PRO-BNP 2022-07-20 16:10:00 Charlene Butt [facility] COVID-19 (ID NOW RAPID 2022-07-20 16:10:00 Charlene Butt [facility] TESTING) Medical Branch LAB ONLY COVID 2022-07-20 16:10:00 Charlene Butt [facility] INTERPRETATION [facility] Branch HB ECG ROUTINE & RHYTHM 2022-07-20 16:05:41 Charlene Butt [facility] HB ECG ROUTINE & RHYTHM 2022-07-20 16:05:41 Charlene Butt [facility] NOTICE OF PRIVACY 2022-07-20 15:52:39 Doctor Unassigned, [facility] [place] NOTICE OF PRIVACY 2022-07-20 15:52:39 Doctor Unassigned, [facility] HOSPITAL ADMISSION 2022-07-20 05:01:00 Doctor Unassigned, [facility] HOSPITAL ADMISSION 2022-07-20 05:01:00 Doctor Unassigned, [facility] [place] Encounters Start End Encounter Admission Attending Care Care Encounter Source Date/Time Date/Time Type Type Clinicians Facility Department ID 2022-09-03 Outpatient 3 [id number] [place] [id number] [facility] 08:24:57 [facility] [place] 2022-09-02 Outpatient 3 [id number] [place] REF [id number] [facility] 14:07:05 [facility] [place] 2021-12-[address] [facility] [id number] Common 11:06:38 Meghana [address] [facility] 2022-08-15 2022-08-28 Inpatient 3 Julio ENCPL CRD [id number] [facility] 18:17:00 12:00:00 Jose 100[facility] [place] 2022-07-29 2022-07-29 Transition ARIANE FosterKhadar [id number] Univers 00:00:00 00:00:00 of Care [place] [id number] it y of [place] [id number] [facility] 403 Branch 2022-07-20 2022-07-27 Hospital Charlene Butt 1.2.84 [id number] [id number] Univers 11:00:00 21:45:00 Encounter Atul Stephens [id number] [facility] 4.2.7.2 .686 [place] [id number] [facility] 089 Branch 2022-07-20 2022-07-[address] [facility] [id number] Univers 11:00:00 21:45:00 [facility] 2022-07-26 2022-07-26 Surgery JAMAL Cannon [id number] Univers 18:03:00 21:03:00 [place] GORDON 350.1.13.10 it y [facility] 4.2.7.2.686 Jonathan as [id number] [facility] 840 Branch 2020-04-04 2020-04-04 [facility] [id number] Common 13:00:00 13:00:[address] [facility] 2020-03-22 2020-03-22 [facility] [id number] Common 15:20:00 15:20:[address] [facility] 2019-12-22 2019-12-22 [facility] [id number] Common 10:40:00 10:40:[address] [facility] 2019-12-15 2019-12-15 [facility] [id number] Common 14:00:00 14:00:[address] [facility] 2019-09-14 2019-09-14 [facility] [id number] Common 13:20:00 13:20:[address] [facility] 2019-05-11 2019-05-11 [facility] [id number] Common 13:00:00 13:00:[address] [facility] 2018-11-11 2018-11-11 [facility] [id number] Common 13:00:00 13:00:[address] [facility] 2018-10-19 2018-10-19 [facility] [id number] Common 08:30:00 08:30:[address] [facility] 2018-04-22 2018-04-22 [facility] [id number] Common 14:00:00 14:00:00 [facility] it Road [facility] Results Test Description Test Time Test Comments Results Result Comments Source POCT GLUCOSE (AUTOMATED) 2022-07-27 17:05:15 Test Item Value Reference Range Interpretation Comme nts POCT GLU (test code = 9152235944) 264 mg/dL 70-110 H Lab Interpretation (test code = 58404-8) [facility] 17:05:15 Test Item Value Reference Range Interpretation Comments POCT GLU (test code = 1852618688) 264 mg/dL 70-110 H Lab Interpretation (test code = Abnormal 82359-1) [facility] [id number] 15:17:32 Test Item Value Reference Range Interpretation Comments NT-proBNP (test code 1090 pg/mL See_Comment H [Autom ated = 2625651703) message] The system which generated this result transmitted reference range : <=125. The reference range was not used to interpret this result as normal/abnormal . ROSLYN (test code = ROSLYN) Biotin has been reported to cause a negative bias, interpret results relative to patient's use of biotin. Lab Interpretation Abnormal (test code = 18496-9) [facility] [id number] 15:17:32 Test Item Value Reference Range Interpretation Comments NT-proBNP (test code 1090 pg/mL See_Comment H [Autom ated = 6729113364) message] The system which generated this result transmitted reference range : <=125. The reference range was not used to interpret this result as normal/abnormal . ROSLYN (test code = ROSLYN) Biotin has been reported to cause a negative bias, interpret results relative to patient's use of biotin. Lab Interpretation Abnormal (test code = 27896-4) [facility]17 11:45:45 Test Item Value Reference Range Interpretation Comments MAGNESIUM (test code = 4339665991) 1.9 mg/dL 1.7-2.4 Lab Interpretation (test code = Normal 25195-0) [facility] (NA, K, CL, CO2, GLUCOSE, BUN, CREATININE, CA)2022-07-27 11:45:45 Test Item Value Reference Range Interpretation Comments NA (test code = 130 mmol/L 135-145 L 0810578520) K (test code = 4.1 mmol/L 3.5-5 4754374784) CL (test code = 89 mmol/L 98-108 L 5470004523) CO2 TOTAL (test code = 37 mmol/L 23-31 H 8664464065) AGAP (test code = 2-16 2156409759) BUN (test code = 32 mg/dL 7-23 H 7531730583) GLUCOSE (test code = 180 mg/dL 70-110 H 9029642975) CREATININE (test code = 0.81 mg/dL 0.6-1.25 7381042929) CALCIUM (test code = 8.5 mg/dL 8.6-10.6 L 9868822072) eGFR (test code = mL/min/1.73m2 6245975889) ROSLYN (test code = ROSLYN) Association of [...] tests). Lab Interpretation Abnormal (test code = 06128-1) [facility]17 11:45:45 Test Item Value Reference Range Interpretation Comments MAGNESIUM (test code = 6226992679) 1.9 mg/dL 1.7-2.4 Lab Interpretation (test code = Normal 50405-3) [facility]OLIC PANEL (NA, K, CL, CO2, GLUCOSE, BUN, CREATININE, CA)2022-07-27 11:45:45 Test Item Value Reference Range Interpretation Comments NA (test code = 130 mmol/L 135-145 L 3000477810) K (test code = 4.1 mmol/L 3.5-5 5753768295) CL (test code = 89 mmol/L 98-108 L 5307857783) CO2 TOTAL (test code = 37 mmol/L 23-31 H 1368434872) AGAP (test code = 2-16 4226129209) BUN (test code = 32 mg/dL 7-23 H 4974238491) GLUCOSE (test code = 180 mg/dL 70-110 H 5869061433) CREATININE (test code = 0.81 mg/dL 0.6-1.25 9192738534) CALCIUM (test code = 8.5 mg/dL 8.6-10.6 L 9752940397) eGFR (test code = mL/min/1.73m2 4326180070) ROSLYN (test code = ROSLYN) Association of [...] tests). Lab Interpretation Abnormal (test code = 92305-6) [facility] GLUCOSE (AUTOMATED)2022-07-27 10:39:46 Test Item Value Reference Range Interpretation Comments POCT GLU (test code = 7765989510) 198 mg/dL 70-110 H Lab Interpretation (test code = Abnormal 59835-1) [facility] GLUCOSE (AUTOMATED)2022-07-27 10:39:46 Test Item Value Reference Range Interpretation Comments POCT GLU (test code = 1353802864) 198 mg/dL 70-110 H Lab Interpretation (test code = Abnormal 85766-1) [facility] GLUCOSE (AUTOMATED)2022-07-27 04:52:50 Test Item Value Reference Range Interpretation Comments POCT GLU (test code = 4463009985) 213 mg/dL 70-110 H Lab Interpretation (test code = Abnormal 20101-6) [facility] GLUCOSE (AUTOMATED)2022-07-27 04:52:50 Test Item Value Reference Range Interpretation Comments POCT GLU (test code = 4350083430) 213 mg/dL 70-110 H Lab Interpretation (test code = Abnormal 34827-6) [facility] GLUCOSE (AUTOMATED)2022-07-27 01:10:58 Test Item Value Reference Range Interpretation Comments POCT GLU (test code = 4251227851) 284 mg/dL 70-110 H Lab Interpretation (test code = Abnormal 41775-7) [facility] GLUCOSE (AUTOMATED)2022-07-27 01:10:58 Test Item Value Reference Range Interpretation Comments POCT GLU (test code = 1250885543) 284 mg/dL 70-110 H Lab Interpretation (test code = Abnormal 76533-2) [facility] GLUCOSE (AUTOMATED)2022-07-26 23:39:10 Test Item Value Reference Range Interpretation Comments POCT GLU (test code = 1295655264) 199 mg/dL 70-110 H Lab Interpretation (test code = Abnormal 34589-8) [facility] GLUCOSE (AUTOMATED)2022-07-26 23:39:10 Test Item Value Reference Range Interpretation Comments POCT GLU (test code = 0489156908) 199 mg/dL 70-110 H Lab Interpretation (test code = Abnormal 80714-0) [facility] use with [facility] Infusion)2022-07-26 23:32:33 Test Item Value Reference Range Interpretation Comments APTT Patient (test code = See_Comment [ Automated message] 3173-2) The system [employer] generated this result transmitted ref erence range: 26 - 36 Seconds. The re ference range was not u sed to interpret this result as normal/abnor mal. Lab Interpretation (test Normal code = 11190-9) [facility] use with [facility] Infusion)2022-07-26 23:32:33 Test Item Value Reference Range Interpretation Comments APTT Patient (test code = See_Comment [ Automated message] 3173-2) The system [employer] generated this result transmitted ref erence range: 26 - 36 Seconds. The re ference range was not u sed to interpret this result as normal/abnor mal. Lab Interpretation (test Normal code = 20940-0) [facility] GLUCOSE (AUTOMATED)2022-07-26 16:22:25 Test Item Value Reference Range Interpretation Comments POCT GLU (test code = 8902830893) 167 mg/dL 70-110 H Lab Interpretation (test code = Abnormal 68459-5) [facility] GLUCOSE (AUTOMATED)2022-07-26 16:22:25 Test Item Value Reference Range Interpretation Comments POCT GLU (test code = 6401774762) 167 mg/dL 70-110 H Lab Interpretation (test code = Abnormal 79850-8) [facility] GLUCOSE (AUTOMATED)2022-07-26 12:31:04 Test Item Value Reference Range Interpretation Comments POCT GLU (test code = 5790226683) 164 mg/dL 70-110 H Lab Interpretation (test code = Abnormal 21457-5) [facility] GLUCOSE (AUTOMATED)2022-07-26 12:31:04 Test Item Value Reference Range Interpretation Comments POCT GLU (test code = 1530783911) 164 mg/dL 70-110 H Lab Interpretation (test code = Abnormal 68198-2) [facility] GLUCOSE (AUTOMATED)2022-07-26 11:09:37 Test Item Value Reference Range Interpretation Comments POCT GLU (test code = 4611928846) 184 mg/dL 70-110 H Lab Interpretation (test code = Abnormal 78512-0) [facility] GLUCOSE (AUTOMATED)2022-07-26 11:09:37 Test Item Value Reference Range Interpretation Comments POCT GLU (test code = 4429889505) 184 mg/dL 70-110 H Lab Interpretation (test code = Abnormal 08396-4) [facility] GLUCOSE (AUTOMATED)2022-07-26 08:53:59 Test Item Value Reference Range Interpretation Comments POCT GLU (test code = 3475654445) 200 mg/dL 70-110 H Lab Interpretation (test code = Abnormal 92530-4) [facility] GLUCOSE (AUTOMATED)2022-07-26 08:53:59 Test Item Value Reference Range Interpretation Comments POCT GLU (test code = 6438576478) 200 mg/dL 70-110 H Lab Interpretation (test code = Abnormal 80667-4) [facility] GLUCOSE (AUTOMATED)2022-07-26 05:20:56 Test Item Value Reference Range Interpretation Comments POCT GLU (test code = 8589220511) 197 mg/dL 70-110 H Lab Interpretation (test code = Abnormal 09903-3) [facility] GLUCOSE (AUTOMATED)2022-07-26 05:20:56 Test Item Value Reference Range Interpretation Comments POCT GLU (test code = 9505499837) 197 mg/dL 70-110 H Lab Interpretation (test code = Abnormal 62332-8) [facility] [id number] 03:01:42 Test Item Value Reference Range Interpretation Comments Blood Culture-Aerobic No organisms No growth Previo us (test code = 82036-1) isolated prelim inary verified result was Culture [...] Culture-Anaerobic isolated preliminar y (test code = 62750-7) verifi ed result was Culture In Progress [...] CDT Lab Interpretation Normal (test code = 11440-3) [facility] CULTURE [id number] 03:01:42 Test Item Value Reference Range Interpretation Comments Blood Culture-Aerobic No organisms No growth Previo us (test code = 58861-0) isolated prelim inary verified result was Culture [...] Culture-Anaerobic isolated preliminar y (test code = 15773-5) verifi ed result was Culture In Progress [...] CDT Lab Interpretation Normal (test code = 99263-0) [facility]2022-07-26 01:46:28 Test Item Value Reference Range Interpretation Comments POCT GLU (test code = 0208586611) 142 mg/dL 70-110 H Lab Interpretation (test code = Abnormal 96981-8) [facility] GLUCOSE (AUTOMATED)2022-07-26 01:46:28 Test Item Value Reference Range Interpretation Comments POCT GLU (test code = 5380223584) 142 mg/dL 70-110 H Lab Interpretation (test code = Abnormal 14587-6) [facility] GLUCOSE (AUTOMATED)2022-07-25 21:23:27 Test Item Value Reference Range Interpretation Comments POCT GLU (test code = 6261098030) 159 mg/dL 70-110 H Lab Interpretation (test code = Abnormal 17053-1) [facility] GLUCOSE (AUTOMATED)2022-07-25 21:23:27 Test Item Value Reference Range Interpretation Comments POCT GLU (test code = 3079582003) 159 mg/dL 70-110 H Lab Interpretation (test code = Abnormal 40736-4) [facility] GLUCOSE (AUTOMATED)2022-07-25 20:47:32 Test Item Value Reference Range Interpretation Comments POCT GLU (test code = 4327364691) 151 mg/dL 70-110 H Lab Interpretation (test code = Abnormal 43831-6) [facility] GLUCOSE (AUTOMATED)2022-07-25 20:47:32 Test Item Value Reference Range Interpretation Comments POCT GLU (test code = 7504106609) 151 mg/dL 70-110 H Lab Interpretation (test code = Abnormal 95883-1) [facility] GLUCOSE (AUTOMATED)2022-07-25 17:16:01 Test Item Value Reference Range Interpretation Comments POCT GLU (test code = 6032478941) 389 mg/dL 70-110 H Lab Interpretation (test code = Abnormal 33203-4) [facility] GLUCOSE (AUTOMATED)2022-07-25 17:16:01 Test Item Value Reference Range Interpretation Comments POCT GLU (test code = 3104901561) 389 mg/dL 70-110 H Lab Interpretation (test code = Abnormal 88862-4) [facility] 15:08:51 Test Item Value Reference Range Interpretation Comments APTT Patient (test code = See_Comment [ Automated message] 3173-2) The system [employer] generated this result transmitted ref erence range: 26 - 36 Seconds. The re ference range was not u sed to interpret this result as normal/abnor mal. Lab Interpretation (test Normal code = 82329-1) [facility]25 15:08:51 Test Item Value Reference Range Interpretation Comments APTT Patient (test code = See_Comment [ Automated message] 3173-2) The system [employer] generated this result transmitted ref erence range: 26 - 36 Seconds. The re ference range was not u sed to interpret this result as normal/abnor mal. Lab Interpretation (test Normal code = 75605-0) [facility] GLUCOSE (AUTOMATED)2022-07-25 13:22:34 Test Item Value Reference Range Interpretation Comments POCT GLU (test code = 4798808220) 168 mg/dL 70-110 H Lab Interpretation (test code = Abnormal 51169-0) [facility] GLUCOSE (AUTOMATED)2022-07-25 13:22:34 Test Item Value Reference Range Interpretation Comments POCT GLU (test code = 3858424628) 168 mg/dL 70-110 H Lab Interpretation (test code = Abnormal 95862-0) [facility] GLUCOSE (AUTOMATED)2022-07-25 01:59:34 Test Item Value Reference Range Interpretation Comments POCT GLU (test code = 6057366719) 202 mg/dL 70-110 H Lab Interpretation (test code = Abnormal 56109-0) [facility] GLUCOSE (AUTOMATED)2022-07-25 01:59:34 Test Item Value Reference Range Interpretation Comments POCT GLU (test code = 4197906913) 202 mg/dL 70-110 H Lab Interpretation (test code = Abnormal 71851-2) [facility] METABOLIC PANEL (NA, K, CL, CO2, GLUCOSE, BUN, CREATININE, CA)2022-07-24 23:06:12 Test Item Value Reference Range Interpretation Comments NA (test code = 135 mmol/L 135-145 9189089929) K (test code = 4.1 mmol/L 3.5-5 6266935223) CL (test code = 95 mmol/L 98-108 L 4060449945) CO2 TOTAL (test code = 39 mmol/L 23-31 H 5645476530) AGAP (test code = 2-16 L 1998264130) BUN (test code = 16 mg/dL 7-23 8025753657) GLUCOSE (test code = 140 mg/dL 70-110 H 0218165213) CREATININE (test code = 0.59 mg/dL 0.6-1.25 L 7915879612) CALCIUM (test code = 8.4 mg/dL 8.6-10.6 L 7268957279) eGFR (test code = mL/min/1.73m2 7965592844) ROSLYN (test code = ROSLYN) Association of [...] tests). Lab Interpretation Abnormal (test code = 48996-1) [facility] Test Item Value Reference Range Interpretation Comments MAGNESIUM (test code = 5401890648) 2.1 mg/dL 1.7-2.4 Lab Interpretation (test code = Normal 33082-9) [facility] METABOLIC PANEL (NA, K, CL, CO2, GLUCOSE, BUN, CREATININE, CA)2022-07-24 23:06:12 Test Item Value Reference Range Interpretation Comments NA (test code = 135 mmol/L 135-145 0748899568) K (test code = 4.1 mmol/L 3.5-5 9366726466) CL (test code = 95 mmol/L 98-108 L 3143994008) CO2 TOTAL (test code = 39 mmol/L 23-31 H 1275220459) AGAP (test code = 2-16 L 3773009594) BUN (test code = 16 mg/dL 7-23 7516539733) GLUCOSE (test code = 140 mg/dL 70-110 H 2056872353) CREATININE (test code = 0.59 mg/dL 0.6-1.25 L 1957986665) CALCIUM (test code = 8.4 mg/dL 8.6-10.6 L 0550000485) eGFR (test code = mL/min/1.73m2 8823057029) ROSLYN (test code = ROSLYN) Association of [...] tests). Lab Interpretation Abnormal (test code = 08832-0) [facility] Test Item Value Reference Range Interpretation Comments MAGNESIUM (test code = 1770563310) 2.1 mg/dL 1.7-2.4 Lab Interpretation (test code = Normal 30606-8) [facility] (for use with Heparin Infusion)2022-07-24 23:00:29 Test Item Value Reference Range Interpretation Comments APTT Patient (test code See_Comment H [Au tomated message] = 3173-2) The system [employer] generated this result transmitted ref erence range: 26 - 36 Seconds. The reference range was not used to int erpret this result as normal/abnormal . Lab Interpretation (test Abnormal code = 91803-1) [facility] (for use with Heparin Infusion)2022-07-24 23:00:29 Test Item Value Reference Range Interpretation Comments APTT Patient (test code See_Comment H [Au tomated message] = 3173-2) The system [employer] generated this result transmitted ref erence range: 26 - 36 Seconds. The reference range was not used to int erpret this result as normal/abnormal . Lab Interpretation (test Abnormal code = 05079-4) [facility] GLUCOSE (AUTOMATED)2022-07-24 20:44:06 Test Item Value Reference Range Interpretation Comments POCT GLU (test code = 8503442817) 161 mg/dL 70-110 H Lab Interpretation (test code = Abnormal 97413-1) [facility] GLUCOSE (AUTOMATED)2022-07-24 20:44:06 Test Item Value Reference Range Interpretation Comments POCT GLU (test code = 9254891362) 161 mg/dL 70-110 H Lab Interpretation (test code = Abnormal 88410-4) [facility] GLUCOSE (AUTOMATED)2022-07-24 17:17:45 Test Item Value Reference Range Interpretation Comments POCT GLU (test code = 1836338777) 257 mg/dL 70-110 H Lab Interpretation (test code = Abnormal 19651-0) [facility] 17:17:45 Test Item Value Reference Range Interpretation Comments POCT GLU (test code = 6126995844) 257 mg/dL 70-110 H Lab Interpretation (test code = Abnormal 46723-6) [facility] GLUCOSE (AUTOMATED)2022-07-24 14:12:13 Test Item Value Reference Range Interpretation Comments POCT GLU (test code = 8395621239) 201 mg/dL 70-110 H Lab Interpretation (test code = Abnormal 47318-7) [facility] GLUCOSE (AUTOMATED)2022-07-24 14:12:13 Test Item Value Reference Range Interpretation Comments POCT GLU (test code = 8843039334) 201 mg/dL 70-110 H Lab Interpretation (test code = Abnormal 17901-0) [facility] GLUCOSE (AUTOMATED)2022-07-24 01:57:51 Test Item Value Reference Range Interpretation Comments POCT GLU (test code = 1027191424) 214 mg/dL 70-110 H Lab Interpretation (test code = Abnormal 14235-2) [facility] GLUCOSE (AUTOMATED)2022-07-24 01:57:51 Test Item Value Reference Range Interpretation Comments POCT GLU (test code = 5258922276) 214 mg/dL 70-110 H Lab Interpretation (test code = Abnormal 65910-0) [facility] GLUCOSE (AUTOMATED)2022-07-23 21:55:56 Test Item Value Reference Range Interpretation Comments POCT GLU (test code = 4889550526) 184 mg/dL 70-110 H Lab Interpretation (test code = Abnormal 55758-3) [facility] GLUCOSE (AUTOMATED)2022-07-23 21:55:56 Test Item Value Reference Range Interpretation Comments POCT GLU (test code = 7844487376) 184 mg/dL 70-110 H Lab Interpretation (test code = Abnormal 49767-6) [facility] GLUCOSE (AUTOMATED)2022-07-23 17:27:48 Test Item Value Reference Range Interpretation Comments POCT GLU (test code = 5877028447) 259 mg/dL 70-110 H Lab Interpretation (test code = Abnormal 39435-7) [facility] GLUCOSE (AUTOMATED)2022-07-23 17:27:48 Test Item Value Reference Range Interpretation Comments POCT GLU (test code = 3604947789) 259 mg/dL 70-110 H Lab Interpretation (test code = Abnormal 21793-9) [facility] GLUCOSE (AUTOMATED)2022-07-23 13:05:59 Test Item Value Reference Range Interpretation Comments POCT GLU (test code = 6057783052) 154 mg/dL 70-110 H Lab Interpretation (test code = Abnormal 14743-7) [facility] GLUCOSE (AUTOMATED)2022-07-23 13:05:59 Test Item Value Reference Range Interpretation Comments POCT GLU (test code = 4252143751) 154 mg/dL 70-110 H Lab Interpretation (test code = Abnormal 56991-1) [facility] GLUCOSE (AUTOMATED)2022-07-23 09:58:20 Test Item Value Reference Range Interpretation Comments POCT GLU (test code = 2089860337) 177 mg/dL 70-110 H Lab Interpretation (test code = Abnormal 75514-3) [facility] GLUCOSE (AUTOMATED)2022-07-23 09:58:20 Test Item Value Reference Range Interpretation Comments POCT GLU (test code = 3123453287) 177 mg/dL 70-110 H Lab Interpretation (test code = Abnormal 85300-7) [facility] GLUCOSE (AUTOMATED)2022-07-22 21:30:57 Test Item Value Reference Range Interpretation Comments POCT GLU (test code = 1810128668) 194 mg/dL 70-110 H Lab Interpretation (test code = Abnormal 87843-4) [facility] GLUCOSE (AUTOMATED)2022-07-22 21:30:57 Test Item Value Reference Range Interpretation Comments POCT GLU (test code = 9517856061) 194 mg/dL 70-110 H Lab Interpretation (test code = Abnormal 24227-7) [facility] GLUCOSE (AUTOMATED)2022-07-22 16:52:50 Test Item Value Reference Range Interpretation Comments POCT GLU (test code = 9756446457) 197 mg/dL 70-110 H Lab Interpretation (test code = Abnormal 27046-4) [facility] GLUCOSE (AUTOMATED)2022-07-22 16:52:50 Test Item Value Reference Range Interpretation Comments POCT GLU (test code = 1497747035) 197 mg/dL 70-110 H Lab Interpretation (test code = Abnormal 66724-8) [facility] GLUCOSE (AUTOMATED)2022-07-22 13:22:34 Test Item Value Reference Range Interpretation Comments POCT GLU (test code = 3002570563) 150 mg/dL 70-110 H Lab Interpretation (test code = Abnormal 98942-7) [facility] GLUCOSE (AUTOMATED)2022-07-22 13:22:34 Test Item Value Reference Range Interpretation Comments POCT GLU (test code = 4369888626) 150 mg/dL 70-110 H Lab Interpretation (test code = Abnormal 50086-7) [id number] 09:38:27 Test Item Value Reference Range Interpretation Comments NT-proBNP (test code 2160 pg/mL See_Comment H [Autom ated = 4067229932) message] The system which generated this result transmitted reference range : <=125. The reference range was not used to interpret this result as normal/abnormal . ROSLYN (test code = ROSLYN) Biotin has been reported to cause a negative bias, interpret results relative to patient's use of biotin. Lab Interpretation Abnormal (test code = 44158-4) [id number] 09:38:27 Test Item Value Reference Range Interpretation Comments NT-proBNP (test code 2160 pg/mL See_Comment H [Autom ated = 1659912508) message] The system which generated this result transmitted reference range : <=125. The reference range was not used to interpret this result as normal/abnormal . ROSLYN (test code = ROSLYN) Biotin has been reported to cause a negative bias, interpret results relative to patient's use of biotin. Lab Interpretation Abnormal (test code = 44811-4) [facility] Test Item Value Reference Range Interpretation Comments MAGNESIUM (test code = 1227250086) 1.8 mg/dL 1.7-2.4 Lab Interpretation (test code = Normal 68940-5) [facility] Test Item Value Reference Range Interpretation Comments MAGNESIUM (test code = 6864384504) 1.8 mg/dL 1.7-2.4 Lab Interpretation (test code = Normal 66484-7) [facility] METABOLIC PANEL (NA, K, CL, CO2, GLUCOSE, BUN, CREATININE, CA)2022-07-22 09:31:09 Test Item Value Reference Range Interpretation Comments NA (test code = 137 mmol/L 135-145 2064297881) K (test code = 4.0 mmol/L 3.5-5 8305070903) CL (test code = 98 mmol/L 98-108 7100902604) CO2 TOTAL (test code = 34 mmol/L 23-31 H 3343231955) AGAP (test code = 2-16 5168453640) BUN (test code = 16 mg/dL 7-23 6795453976) GLUCOSE (test code = 177 mg/dL 70-110 H 2638626851) CREATININE (test code = 0.66 mg/dL 0.6-1.25 6624027889) CALCIUM (test code = 8.2 mg/dL 8.6-10.6 L 8501345281) eGFR (test code = mL/min/1.73m2 9361236109) ROSLYN (test code = ROSLYN) Association of [...] tests). Lab Interpretation Abnormal (test code = 90935-6) [facility] METABOLIC PANEL (NA, K, CL, CO2, GLUCOSE, BUN, CREATININE, CA)2022-07-22 09:31:09 Test Item Value Reference Range Interpretation Comments NA (test code = 137 mmol/L 135-145 6799198916) K (test code = 4.0 mmol/L 3.5-5 4522213156) CL (test code = 98 mmol/L 98-108 3775320595) CO2 TOTAL (test code = 34 mmol/L 23-31 H 2084977832) AGAP (test code = 2-16 9726485116) BUN (test code = 16 mg/dL 7-23 5020535813) GLUCOSE (test code = 177 mg/dL 70-110 H 8447837741) CREATININE (test code = 0.66 mg/dL 0.6-1.25 8254337660) CALCIUM (test code = 8.2 mg/dL 8.6-10.6 L 2939650037) eGFR (test code = mL/min/1.73m2 4186605683) ROSLYN (test code = ROSLYN) Association of [...] tests). Lab Interpretation Abnormal (test code = 62800-1) [facility] (ALB,T.PRO,BILI T,BU/BC,ALT,AST,ALK PHOS)2022-07-22 09:30:44 Test Item Value Reference Range Interpretation Comments TOTAL BILI (test code = 1072301489) 1.2 mg/dL 0.1-1.1 H BILI UNCON (test code = 2327246553) 0.9 mg/dL 0.1-1.1 BILI CONJ (test code = 2615485894) 0.0 mg/dL 0-0.3 T PROTEIN (test code = 7485539067) 6.5 g/dL 6.3-8.2 ALBUMIN (test code = 7115308400) 3.7 g/dL 3.5-5 ALK PHOS (test code = 6795027791) 67 U/L 34-122 ALTv (test code = 1742-6) 33 U/L 5-50 AST(SGOT) (test code = 8560180692) 30 U/L 13-40 Lab Interpretation (test code = Abnormal 82783-0) [facility] 09:30:44 Test Item Value Reference Range Interpretation Comments PHOSPHORUS (test code = 6824331590) 3.6 mg/dL 2.5-5 Lab Interpretation (test code = Normal 44413-7) [facility]32715[facility] (ALB,T.PRO,BILI T,BU/BC,ALT,AST,ALK PHOS)2022-07-22 09:30:44 Test Item Value Reference Range Interpretation Comments TOTAL BILI (test code = 7552124133) 1.2 mg/dL 0.1-1.1 H BILI UNCON (test code = 4866918261) 0.9 mg/dL 0.1-1.1 BILI CONJ (test code = 9400971145) 0.0 mg/dL 0-0.3 T PROTEIN (test code = 1785292737) 6.5 g/dL 6.3-8.2 ALBUMIN (test code = 8083288120) 3.7 g/dL 3.5-5 ALK PHOS (test code = 3203938510) 67 U/L 34-122 ALTv (test code = 1742-6) 33 U/L 5-50 AST(SGOT) (test code = 1711921093) 30 U/L 13-40 Lab Interpretation (test code = Abnormal 62698-3) [facility] 09:30:44 Test Item Value Reference Range Interpretation Comments PHOSPHORUS (test code = 7733468015) 3.6 mg/dL 2.5-5 Lab Interpretation (test code = Normal 69290-4) [facility] WITH [id number] 09:23:08 Test Item Value Reference Range Interpretation Comments WBC (test code = See_Comment H [Automated 9155-2) message] The system which generated this result transmit artem reference range : 4.20 - 10.70 10*3/?L. The reference range was not used to interpret this result as normal/abnormal . RBC (test code = See_Comment [Automated 222-8) message] The system which generated this result [...] RDW-SD (test code = 46.6 fL 38.5-51.6 17919-0) RDW-CV (test code = 13.5 % 12.1-15.4 788-0) PLT (test code = See_Comment L [Automated 777-3) message] The system which generated this result transmit artem reference range : 150 - 328 10*3/ ?L. The reference range was not u sed to interpret th is result as normal/abnormal . MPV (test code = 12.7 fL 9.8-13 71190-7) NRBC/100 WBC (test See_Comment [Automat ed code = 2437345205) message] The system which generated this result transmit artem reference range : 0.0 - 10.0 /100 WBCs. The reference range was not used to interpret this result as normal/abnormal . NRBC x10^3 (test code See_Comment [Auto mated = 0142456107) message] The system which generated this result transmit artem reference range : 10*3/?L. The reference range was not used to interpret this result as normal/abnormal . GRAN MAT (NEUT) % 71.3 % (test code = 770-8) IMM GRAN % (test code 0.40 % = 2007843960) LYMPH % (test code = 17.4 % 736-9) MONO % (test code = 9.8 % 5905-5) EOS % (test code = 0.8 % 713-8) BASO % (test code = 0.3 % 706-2) GRAN MAT x10^3(ANC) 10.18 10*3/uL 1.99-6.95 H (test code = 0793221591) IMM GRAN x10^3 (test 0.06 10*3/uL 0-0.06 code = 3866404067) LYMPH x10^3 (test code 2.49 10*3/uL 1.09-3.23 = 731-0) MONO x10^3 (test code 1.40 10*3/uL 0.36-1.02 H = 742-7) EOS x10^3 (test code = 0.11 10*3/uL 0.06-0.53 711-2) BASO x10^3 (test code 0.04 10*3/uL 0.01-0.09 = 704-7) Lab Interpretation Abnormal (test code = 33133-0) [facility] WITH [id number] 09:23:08 Test Item Value Reference Range Interpretation [...] RDW-SD (test code = 46.6 fL 38.5-51.6 12147-9) RDW-CV (test code = 13.5 % 12.1-15.4 788-0) PLT (test code = See_Comment L [Automated 777-3) message] The system which generated this result transmit artem reference range : 150 - 328 10*3/ ?L. The reference range was not u sed to interpret th is result as normal/abnormal . MPV (test code = 12.7 fL 9.8-13 44557-4) NRBC/100 WBC (test See_Comment [Automat ed code = 4436350674) message] The system which generated this result transmit artem reference range : 0.0 - 10.0 /100 WBCs. The reference range was not used to interpret this result as normal/abnormal . NRBC x10^3 (test code See_Comment [Auto mated = 5609414712) message] The system which generated this result transmit artem reference range : 10*3/?L. The reference range was not used to interpret this result as normal/abnormal . GRAN MAT (NEUT) % 71.3 % (test code = 770-8) IMM GRAN % (test code 0.40 % = 1328335222) LYMPH % (test code = 17.4 % 736-9) MONO % (test code = 9.8 % 5905-5) EOS % (test code = 0.8 % 713-8) BASO % (test code = 0.3 % 706-2) GRAN MAT x10^3(ANC) 10.18 10*3/uL 1.99-6.95 H (test code = 3331945321) IMM GRAN x10^3 (test 0.06 10*3/uL 0-0.06 code = 3848790378) LYMPH x10^3 (test code 2.49 10*3/uL 1.09-3.23 = 731-0) MONO x10^3 (test code 1.40 10*3/uL 0.36-1.02 H = 742-7) EOS x10^3 (test code = 0.11 10*3/uL 0.06-0.53 711-2) BASO x10^3 (test code 0.04 10*3/uL 0.01-0.09 = 704-7) Lab Interpretation Abnormal (test code = 66954-5) [facility] GLUCOSE (AUTOMATED)2022-07-22 01:47:13 Test Item Value Reference Range Interpretation Comments POCT GLU (test code = 4172791779) 220 mg/dL 70-110 H Lab Interpretation (test code = Abnormal 77672-1) [facility] GLUCOSE (AUTOMATED)2022-07-22 01:47:13 Test Item Value Reference Range Interpretation Comments POCT GLU (test code = 3704906021) 220 mg/dL 70-110 H Lab Interpretation (test code = Abnormal 09158-2) [facility]TOTAL CHOLESTEROL, TRIGLYCERIDES, HDL)2022-07-22 00:19:28 Test Item Value Reference Range Interpretation Comments CHOL (test code = 121 mg/dL 120-200 3334805520) HDL (test code = 28 mg/dL See_Comment L [Automated message] 8728607254) The system [employer] generated this result transmit artem reference range : >=40. The refer ence range was not u sed to interpret th is result as normal/abnormal . HDLC RATIO (test code = See_Comment [Au tomated message] 4780075518) The system [employer] generated this result transmit artem reference range : <=5.0. The refe rence range was not u sed to interpret th is result as normal/abnormal . TRIG (test code = 119 mg/dL 30-170 6859406317) LDL CHOL (test code = 69 mg/dL See_Comment [Auto mated message] 69281-3) The system [employer] generated this result transmit artem reference range : <=160. The refe rence range was not u sed to interpret th is result as normal/abnormal . VLDL (test code = 24 mg/dL 5-60 1973498612) Lab Interpretation (test Abnormal code = 72600-4) [facility]25848)(TOTAL CHOLESTEROL, TRIGLYCERIDES, HDL)2022-07-22 00:19:28 Test Item Value Reference Range Interpretation Comments CHOL (test code = 121 mg/dL 120-200 1979524488) HDL (test code = 28 mg/dL See_Comment L [Automated message] 1367631582) The system [employer] generated this result transmit artem reference range : >=40. The refer ence range was not u sed to interpret th is result as normal/abnormal . HDLC RATIO (test code = See_Comment [Au tomated message] 9268933408) The system [employer] generated this result transmit artem reference range : <=5.0. The refe rence range was not u sed to interpret th is result as normal/abnormal . TRIG (test code = 119 mg/dL 30-170 3209141405) LDL CHOL (test code = 69 mg/dL See_Comment [Auto mated message] 99398-3) The system [employer] generated this result transmit artem reference range : <=160. The refe rence range was not u sed to interpret th is result as normal/abnormal . VLDL (test code = 24 mg/dL 5-60 3021327814) Lab Interpretation (test Abnormal code = 83721-1) [facility] 00:00:55 Test Item Value Reference Range Interpretation Comments Height (test code = in 1413939079) Weight (test code = lbs 8087996456) Systolic BP (test code = mmHg 4888479955) Diastolic BP (test code mmHg = 4486323561) Heart Rate (test code = bpm 9047488950) BSA (test code = 2.04 m2 0602002453) Ao root annulus (test 3.5 cm code = 9284667365) Ao root diam (test code 3.50 cm = 4920483963) Aortic root (test code = 3.5 cm 0741131028) LVOT diameter (test code 2.19 cm = 0507716688) LVOT area (test code = 3.80 cm2 4565755833) LVIDD (test code = 5.30 cm 1696386365) Left Ventricular End 135.3 mL Diastolic Volume by Teichholz Method (test code = 1390272) IVS (test code = 1.26 cm 1098279188) Interventricular Septum 1.26 cm Diastolic Thickness by 2D (test code = 6645651) LVPWD (test code = 1.26 cm 6911703846) PW (test code = 1.26 cm 0.6-1.7 6314567936) EF(Teich) (test code = 16.40 % 9422766376) LVIDS (test code = 4.90 cm 9782508564) Left Ventricular End 113.1 mL Systolic Volume by Teichholz Method (test code = 1995665) FS (test code = 7 % 4897413186) EF - 2D (test code = 16.40 % 25003970) LA size (test code = 4.3 cm 8132862326) TR Peak Anthony (test code = 249.6 cm/s 8717111101) Triscuspid Valve mmHg Regurgitation Peak Gradient (test code = 2425151236) LAV(MOD-sp4) (test code 79.00 mL = 0929180309) E wave decelartion time 0.13 s (test code = 5094462083) MV Peak E Anthony (test code 82.3 cm/s = 1669998884) MV stenosis pressure 1/2 38.8 ms time (test code = 0495182534) MV Peak A Anthony (test code 40.8 cm/s = 8409851524) E/A ratio (test code = ratio 6677276864) MR max PG (test code = 61.50 mm[Hg] 0955997529) MR max anthony (test code = 392.20 cm/s 7114875084) Mr max anthony (test code = 392.2 m/s 4777895288) MV Prop V (test code = 33.40 cm/s 3680052651) MV E/e' septal (test 12.6 cm/s code = 4949970876) Tapse (test code = 1.17 cm 2161101394) LVOT stroke volume (test 52.20 cm3 code = 4233061762) LVOT peak anthony (test code 86.4 cm/s = 7176555561) LVOT mn grad (test code mmHg = 9360502573) AV LVOT peak gradient mmHg (test code = 0626851963) LVOT peak VTI (test code 13.9 cm = 7448933513) LV V1 mean (test code = 57.20 cm/s 7986319438) Aortic valve mean 94.3 cm/s velocity (test code = 6676183372) Ao peak anthony (test code = 125.8 cm/s 3292007394) Ao VTI (test code = 22.6 cm 9418808758) AV area by cont VTI 2.3 cm2 (test code = 3705793480) AV area peak anthony (test 2.6 cm2 code = 9991778471) Ao max PG (test code = 6.30 mm[Hg] 6178230730) AV peak gradient (test mmHg code = 2752409985) AV valve area (test code 2.31 cm2 = 9243052828) AV mean gradient (test mmHg code = 0112210557) Radiology Study observation (narrative) (test code = 06705-0) ROSLYN (test code = ROSLYN) ?Left?Ventricle: Left [...] mL of Lumason ultrasound enhancing agent used. [facility]:00:55 Test Item Value Reference Range Interpretation Comments Height (test code = in 5640981162) Weight (test code = lbs 0098338657) Systolic BP (test code = mmHg 4793804528) Diastolic BP (test code mmHg = 7188583050) Heart Rate (test code = bpm 3995573514) BSA (test code = 2.04 m2 4457400687) Ao root annulus (test 3.5 cm code = 6198224183) Ao root diam (test code 3.50 cm = 9924530794) Aortic root (test code = 3.5 cm 4263451972) LVOT diameter (test code 2.19 cm = 6784609068) LVOT area (test code = 3.80 cm2 0047179033) LVIDD (test code = 5.30 cm 2775568927) Left Ventricular End 135.3 mL Diastolic Volume by Teichholz Method (test code = 6103896) IVS (test code = 1.26 cm 9789864208) Interventricular Septum 1.26 cm Diastolic Thickness by 2D (test code = 0044607) LVPWD (test code = 1.26 cm 7966889559) PW (test code = 1.26 cm 0.6-1.6 4719711118) EF(Teich) (test code = 16.40 % 5580354166) LVIDS (test code = 4.90 cm 9609421517) Left Ventricular End 113.1 mL Systolic Volume by Teichholz Method (test code = 8394078) FS (test code = 7 % 1103905008) EF - 2D (test code = 16.40 % 30677509) LA size (test code = 4.3 cm 2252945203) TR Peak Anthony (test code = 249.6 cm/s 9901217557) Triscuspid Valve mmHg Regurgitation Peak Gradient (test code = 2610772705) LAV(MOD-sp4) (test code 79.00 mL = 2866176796) E wave decelartion time 0.13 s (test code = 1124008563) MV Peak E Anthony (test code 82.3 cm/s = 7493679188) MV stenosis pressure 1/2 38.8 ms time (test code = 2146445277) MV Peak A Anthony (test code 40.8 cm/s = 2271366278) E/A ratio (test code = ratio 9811267982) MR max PG (test code = 61.50 mm[Hg] 5046629724) MR max anthony (test code = 392.20 cm/s 9308398051) Mr max anthony (test code = 392.2 m/s 5301059529) MV Prop V (test code = 33.40 cm/s 4136877133) MV E/e' septal (test 12.6 cm/s code = 0828877660) Tapse (test code = 1.17 cm 6806278090) LVOT stroke volume (test 52.20 cm3 code = 0384274713) LVOT peak anthony (test code 86.4 cm/s = 4108952055) LVOT mn grad (test code mmHg = 8177560625) AV LVOT peak gradient mmHg (test code = 6857247306) LVOT peak VTI (test code 13.9 cm = 7123239763) LV V1 mean (test code = 57.20 cm/s 5235710393) Aortic valve mean 94.3 cm/s velocity (test code = 3240070780) Ao peak anthony (test code = 125.8 cm/s 6035870724) Ao VTI (test code = 22.6 cm 8883401937) AV area by cont VTI 2.3 cm2 (test code = 3545454294) AV area peak anthony (test 2.6 cm2 code = 6281017913) Ao max PG (test code = 6.30 mm[Hg] 2826175969) AV peak gradient (test mmHg code = 4073060487) AV valve area (test code 2.31 cm2 = 5744422188) AV mean gradient (test mmHg code = 0646181424) Radiology Study observation (narrative) (test code = 89450-4) ROSLYN (test code = ROSLYN) ?Left?Ventricle: Left [...] mL of Lumason ultrasound enhancing agent used. [facility] GLUCOSE (AUTOMATED)2022-07-21 21:54:48 Test Item Value Reference Range Interpretation Comments POCT GLU (test code = 2321293014) 161 mg/dL 70-110 H Lab Interpretation (test code = Abnormal 47949-2) [facility] GLUCOSE (AUTOMATED)2022-07-21 21:54:48 Test Item Value Reference Range Interpretation Comments POCT GLU (test code = 9284023324) 161 mg/dL 70-110 H Lab Interpretation (test code = Abnormal 94170-5) [facility] GLUCOSE (AUTOMATED)2022-07-21 16:47:05 Test Item Value Reference Range Interpretation Comments POCT GLU (test code = 5664219301) 132 mg/dL 70-110 H Lab Interpretation (test code = Abnormal 76541-6) [facility] GLUCOSE (AUTOMATED)2022-07-21 16:47:05 Test Item Value Reference Range Interpretation Comments POCT GLU (test code = 1280588835) 132 mg/dL 70-110 H Lab Interpretation (test code = Abnormal 95182-2) [facility] GLUCOSE (AUTOMATED)2022-07-21 15:03:01 Test Item Value Reference Range Interpretation Comments POCT GLU (test code = 0566904872) 182 mg/dL 70-110 H Lab Interpretation (test code = Abnormal 56187-6) [facility] GLUCOSE (AUTOMATED)2022-07-21 15:03:01 Test Item Value Reference Range Interpretation Comments POCT GLU (test code = 3985815014) 182 mg/dL 70-110 H Lab Interpretation (test code = Abnormal 89167-6) [facility] with [id number] 14:58:14 Test Item Value Reference Range Interpretation Comments WBC (test code = See_Comment H [Automated 5490-2) message] The system which generated this result [...] RDW-SD (test code = 46.4 fL 38.5-51.6 26931-2) RDW-CV (test code = 13.5 % 12.1-15.4 788-0) PLT (test code = See_Comment [Automated 777-3) message] The system which generated this result transmit artem reference range : 150 - 328 10*3/ ?L. The reference range was not u sed to interpret th is result as normal/abnormal . MPV (test code = 13.0 fL 9.8-13 36834-0) NRBC/100 WBC (test See_Comment [Automat ed code = 6183923004) message] The system which generated this result transmit artem reference range : 0.0 - 10.0 /100 WBCs. The reference range was not used to interpret this result as normal/abnormal . NRBC x10^3 (test code See_Comment [Auto mated = 2192208494) message] The system which generated this result transmit artem reference range : 10*3/?L. The reference range was not used to interpret this result as normal/abnormal . GRAN MAT (NEUT) % 71.1 % (test code = 770-8) IMM GRAN % (test code 0.40 % = 4178868445) LYMPH % (test code = 17.6 % 736-9) MONO % (test code = 10.3 % 5905-5) EOS % (test code = 0.3 % 713-8) BASO % (test code = 0.3 % 706-2) GRAN MAT x10^3(ANC) 10.55 10*3/uL 1.99-6.95 H (test code = 2573663792) IMM GRAN x10^3 (test 0.06 10*3/uL 0-0.06 code = 0259517967) LYMPH x10^3 (test code 2.61 10*3/uL 1.09-3.23 = 731-0) MONO x10^3 (test code 1.53 10*3/uL 0.36-1.02 H = 742-7) EOS x10^3 (test code = 0.04 10*3/uL 0.06-0.53 L 711-2) BASO x10^3 (test code 0.04 10*3/uL 0.01-0.09 = 704-7) BANDS (test code = Increased A 2033108753) REACT LYMPHS (test Rare code = 4710673377) GIANT PLATELETS (test Present See_Comment A [Auto mated code = 5908-9) message] The system which generated this result transmit artem reference range : (none). The reference range was not used to interpret this result as normal/abnormal . Lab Interpretation Abnormal (test code = 75869-9) [facility] with Dekohvaflptr0628-61-96 14:58:14 Test Item Value Reference Range Interpretation Comments WBC (test code = See_Comment H [Automated 4236-2) message] The system which generated this result transmit artem reference range : 4.20 - 10.70 10*3/?L. The reference range was not used to interpret this result as normal/abnormal . RBC (test code = See_Comment [Automated 579-8) message] The system which generated this result [...] RDW-SD (test code = 46.4 fL 38.5-51.6 04349-6) RDW-CV (test code = 13.5 % 12.1-15.4 788-0) PLT (test code = See_Comment [Automated 777-3) message] The system which generated this result transmit artem reference range : 150 - 328 10*3/ ?L. The reference range was not u sed to interpret th is result as normal/abnormal . MPV (test code = 13.0 fL 9.8-13 65085-9) NRBC/100 WBC (test See_Comment [Automat ed code = 2585257399) message] The system which generated this result transmit artem reference range : 0.0 - 10.0 /100 WBCs. The reference range was not used to interpret this result as normal/abnormal . NRBC x10^3 (test code See_Comment [Auto mated = 8919748008) message] The system which generated this result transmit artem reference range : 10*3/?L. The reference range was not used to interpret this result as normal/abnormal . GRAN MAT (NEUT) % 71.1 % (test code = 770-8) IMM GRAN % (test code 0.40 % = 2536043559) LYMPH % (test code = 17.6 % 736-9) MONO % (test code = 10.3 % 5905-5) EOS % (test code = 0.3 % 713-8) BASO % (test code = 0.3 % 706-2) GRAN MAT x10^3(ANC) 10.55 10*3/uL 1.99-6.95 H (test code = 4275918669) IMM GRAN x10^3 (test 0.06 10*3/uL 0-0.06 code = 8680764023) LYMPH x10^3 (test code 2.61 10*3/uL 1.09-3.23 = 731-0) MONO x10^3 (test code 1.53 10*3/uL 0.36-1.02 H = 742-7) EOS x10^3 (test code = 0.04 10*3/uL 0.06-0.53 L 711-2) BASO x10^3 (test code 0.04 10*3/uL 0.01-0.09 = 704-7) BANDS (test code = Increased A 8312700272) REACT LYMPHS (test Rare code = 9548189855) GIANT PLATELETS (test Present See_Comment A [Auto mated code = 5908-9) message] The system which generated this result transmit artem reference range : (none). The reference range was not used to interpret this result as normal/abnormal . Lab Interpretation Abnormal (test code = 33865-7) [facility] GLUCOSE (AUTOMATED)2022-07-21 13:20:46 Test Item Value Reference Range Interpretation Comments POCT GLU (test code = 2667708461) 148 mg/dL 70-110 H Lab Interpretation (test code = Abnormal 74387-1) [facility] GLUCOSE (AUTOMATED)2022-07-21 13:20:46 Test Item Value Reference Range Interpretation Comments POCT GLU (test code = 9731782732) 148 mg/dL 70-110 H Lab Interpretation (test code = Abnormal 57337-9) [facility] Metabolic Panel (NA, K, CL, CO2, GLUCOSE, BUN, CREATININE, CA)2022-07-21 13:17:35 Test Item Value Reference Range Interpretation Comments NA (test code = 134 mmol/L 135-145 L 0336937863) K (test code = 4.1 mmol/L 3.5-5 1012981736) CL (test code = 99 mmol/L 98-108 4817715754) CO2 TOTAL (test code = 32 mmol/L 23-31 H 9482567284) AGAP (test code = 2-16 7603939533) BUN (test code = 17 mg/dL 7-23 1140951683) GLUCOSE (test code = 186 mg/dL 70-110 H 6759394952) CREATININE (test code = 0.65 mg/dL 0.6-1.25 3857038841) CALCIUM (test code = 8.2 mg/dL 8.6-10.6 L 5805047297) eGFR (test code = mL/min/1.73m2 4134810359) ROSLYN (test code = ROSLYN) Association of [...] tests). Lab Interpretation Abnormal (test code = 92473-6) [facility] Metabolic Panel (NA, K, CL, CO2, GLUCOSE, BUN, CREATININE, CA)2022-07-21 13:17:35 Test Item Value Reference Range Interpretation Comments NA (test code = 134 mmol/L 135-145 L 1961278822) K (test code = 4.1 mmol/L 3.5-5 0077629030) CL (test code = 99 mmol/L 98-108 6468705069) CO2 TOTAL (test code = 32 mmol/L 23-31 H 5454132707) AGAP (test code = 2-16 1023496796) BUN (test code = 17 mg/dL 7-23 0280805712) GLUCOSE (test code = 186 mg/dL 70-110 H 0424822942) CREATININE (test code = 0.65 mg/dL 0.6-1.25 7580326570) CALCIUM (test code = 8.2 mg/dL 8.6-10.6 L 0774059647) eGFR (test code = mL/min/1.73m2 7532665484) ROSLYN (test code = ROSLYN) Association of [...] tests). Lab Interpretation Abnormal (test code = 39403-7) [facility] [id number] 12:35:48 Test Item Value Reference Interpretation Comments Range TROPONIN I (test 0.032 ng/mL See_Comment [Automated code = 1122206506) message] The system which generated this result [...] biotin. Lab Interpretation Normal (test code = 70555-3) [id number] 12:35:48 Test Item Value Reference Interpretation Comments Range TROPONIN I (test 0.032 ng/mL See_Comment [Automated code = 9927820030) message] The system which generated this result [...] biotin. Lab Interpretation Normal (test code = 45862-5) [facility] [id number] 12:32:47 Test Item Value Reference Range Interpretation Comments NT-proBNP (test code 3830 pg/mL See_Comment H [Autom ated = 6493082837) message] The system which generated this result transmitted reference range : <=125. The reference range was not used to interpret this result as normal/abnormal . ROSLYN (test code = ROSLYN) Biotin has been reported to cause a negative bias, interpret results relative to patient's use of biotin. Lab Interpretation Abnormal (test code = 23641-7) [facility] [id number] 12:32:47 Test Item Value Reference Range Interpretation Comments NT-proBNP (test code 3830 pg/mL See_Comment H [Autom ated = 0202760350) message] The system which generated this result transmitted reference range : <=125. The reference range was not used to interpret this result as normal/abnormal . ROSLYN (test code = ROSLYN) Biotin has been reported to cause a negative bias, interpret results relative to patient's use of biotin. Lab Interpretation Abnormal (test code = 54955-2) [facility] [id number] 12:24:10 Test Item Value Reference Range Interpretation Comments MAGNESIUM (test code = 2159138245) 1.8 mg/dL 1.7-2.4 Lab Interpretation (test code = Normal 68267-0[id number] 12:24:10 Test Item Value Reference Range Interpretation Comments MAGNESIUM (test code = 3527916146) 1.8 mg/dL 1.7-2.4 Lab Interpretation (test code = Normal 37453-1) [facility] GLUCOSE (AUTOMATED)2022-07-21 04:19:16 Test Item Value Reference Range Interpretation Comments POCT GLU (test code = 3138650070) 169 mg/dL 70-110 H Lab Interpretation (test code = Abnormal 21921-8) [facility] GLUCOSE (AUTOMATED)2022-07-21 04:19:16 Test Item Value Reference Range Interpretation Comments POCT GLU (test code = 0106381732) 169 mg/dL 70-110 H Lab Interpretation (test code = Abnormal 93563-6) [facility] GLUCOSE (AUTOMATED)2022-07-21 02:03:28 Test Item Value Reference Range Interpretation Comments POCT GLU (test code = 9018662144) 242 mg/dL 70-110 H Lab Interpretation (test code = Abnormal 94939-5) [facility] GLUCOSE (AUTOMATED)2022-07-21 02:03:28 Test Item Value Reference Range Interpretation Comments POCT GLU (test code = 5596763441) 242 mg/dL 70-110 H Lab Interpretation (test code = Abnormal 45195-7) [facility]2022-07-21 00:46:20 Test Item Value Reference Range Interpretation Comments HGB A1C (test code = 11.1 % 4-5.7 H 4548-4) ROSLYN (test code = ROSLYN) Reference RangesNormal: <5.7%Prediabetes: 5.7 - 6.4%Diabetes: > 6.5% Lab Interpretation (test Abnormal code = 96494-1) [facility]2022-07-21 00:46:20 Test Item Value Reference Range Interpretation Comments HGB A1C (test code = 11.1 % 4-5.7 H 4548-4) ROSLYN (test code = ROSLYN) Reference RangesNormal: <5.7%Prediabetes: 5.7 - 6.4%Diabetes: > 6.5% Lab Interpretation (test Abnormal code = 76063-8) [facility] GLUCOSE (AUTOMATED)2022-07-20 22:27:55 Test Item Value Reference Range Interpretation Comments POCT GLU (test code = 2157792557) 234 mg/dL 70-110 H Lab Interpretation (test code = Abnormal 35002-3) [facility] GLUCOSE (AUTOMATED)2022-07-20 22:27:55 Test Item Value Reference Range Interpretation Comments POCT GLU (test code = 9165802603) 234 mg/dL 70-110 H Lab Interpretation (test code = Abnormal 84721-6) [facility] [id number] 17:21:08 Test Item Value Reference Range Interpretation Comments NT-proBNP (test code 3250 pg/mL See_Comment H [Autom ated = 1012001827) message] The system which generated this result transmitted reference range : <=125. The reference range was not used to interpret this result as normal/abnormal . ROSLYN (test code = ROSLYN) Biotin has been reported to cause a negative bias, interpret results relative to patient's use of biotin. Lab Interpretation Abnormal (test code = 42647-3) [facility] [id number] 17:21:08 Test Item Value Reference Range Interpretation Comments NT-proBNP (test code 3250 pg/mL See_Comment H [Autom ated = 7229858764) message] The system which generated this result transmitted reference range : <=125. The reference range was not used to interpret this result as normal/abnormal . ROSLYN (test code = ROSLYN) Biotin has been reported to cause a negative bias, interpret results relative to patient's use of biotin. Lab Interpretation Abnormal (test code = 69823-7) [facility] WITH [id number] 17:16:49 Test Item Value Reference Range Interpretation [...] RDW-SD (test code = 44.7 fL 38.5-51.6 20959-2) RDW-CV (test code = 13.7 % 12.1-15.4 788-0) PLT (test code = See_Comment [Automated 777-3) message] The system which generated this result transmit artem reference range : 150 - 328 10*3/ ?L. The reference range was not u sed to interpret th is result as normal/abnormal . MPV (test code = 12.5 fL 9.8-13 39956-5) NRBC/100 WBC (test See_Comment [Automat ed code = 2784964865) message] The system which generated this result transmit artem reference range : 0.0 - 10.0 /100 WBCs. The reference range was not used to interpret this result as normal/abnormal . NRBC x10^3 (test code See_Comment [Auto mated = 3750069557) message] The system which generated this result transmit artem reference range : 10*3/?L. The reference range was not used to interpret this result as normal/abnormal . GRAN MAT (NEUT) % 76.6 % (test code = 770-8) IMM GRAN % (test code 0.70 % = 8581267281) LYMPH % (test code = 13.8 % 736-9) MONO % (test code = 8.5 % 5905-5) EOS % (test code = 0.1 % 713-8) BASO % (test code = 0.3 % 706-2) GRAN MAT x10^3(ANC) 17.13 10*3/uL 1.99-6.95 H (test code = 9510259788) IMM GRAN x10^3 (test 0.16 10*3/uL 0-0.06 H code = 7233987549) LYMPH x10^3 (test code 3.10 10*3/uL 1.09-3.23 = 731-0) MONO x10^3 (test code 1.91 10*3/uL 0.36-1.02 H = 742-7) EOS x10^3 (test code = 0.06-0.53 L 711-2) BASO x10^3 (test code 0.07 10*3/uL 0.01-0.09 = 704-7) BANDS (test code = Increased A 3684242124) REACT LYMPHS (test Rare code = 4221174024) Lab Interpretation Abnormal (test code = 47180-2) [facility] WITH [id number] 17:16:49 Test Item Value Reference Range Interpretation [...] RDW-SD (test code = 44.7 fL 38.5-51.6 87671-0) RDW-CV (test code = 13.7 % 12.1-15.4 788-0) PLT (test code = See_Comment [Automated 777-3) message] The system which generated this result transmit artem reference range : 150 - 328 10*3/ ?L. The reference range was not u sed to interpret th is result as normal/abnormal . MPV (test code = 12.5 fL 9.8-13 30815-1) NRBC/100 WBC (test See_Comment [Automat ed code = 5520816001) message] The system which generated this result transmit artem reference range : 0.0 - 10.0 /100 WBCs. The reference range was not used to interpret this result as normal/abnormal . NRBC x10^3 (test code See_Comment [Auto mated = 3908466993) message] The system which generated this result transmit artem reference range : 10*3/?L. The reference range was not used to interpret this result as normal/abnormal . GRAN MAT (NEUT) % 76.6 % (test code = 770-8) IMM GRAN % (test code 0.70 % = 0930690186) LYMPH % (test code = 13.8 % 736-9) MONO % (test code = 8.5 % 5905-5) EOS % (test code = 0.1 % 713-8) BASO % (test code = 0.3 % 706-2) GRAN MAT x10^3(ANC) 17.13 10*3/uL 1.99-6.95 H (test code = 2092103818) IMM GRAN x10^3 (test 0.16 10*3/uL 0-0.06 H code = 1646434139) LYMPH x10^3 (test code 3.10 10*3/uL 1.09-3.23 = 731-0) MONO x10^3 (test code 1.91 10*3/uL 0.36-1.02 H = 742-7) EOS x10^3 (test code = 0.06-0.53 L 711-2) BASO x10^3 (test code 0.07 10*3/uL 0.01-0.09 = 704-7) BANDS (test code = Increased A 8659125241) REACT LYMPHS (test Rare code = 8220296951) Lab Interpretation Abnormal (test code = 75657-8) [facility] [id number] 16:42:04 Test Item Value Reference Interpretation Comments Range TROPONIN I (test 0.025 ng/mL See_Comment [Automated code = 6819573533) message] The system which generated this result [...] biotin. Lab Interpretation Normal (test code = 77322-7) [facility] [id number] 16:42:04 Test Item Value Reference Interpretation Comments Range TROPONIN I (test 0.025 ng/mL See_Comment [Automated code = 4278853503) message] The system which generated this result [...] biotin. Lab Interpretation Normal (test code = 59450-7) [facility] 16:31:19 Test Item Value Reference Range Interpretation Comments APTT Patient (test See_Comment [Automat ed code = 3173-2) message] The system which generated this result transmitted reference range : 23 - 38 Seconds . The reference range was not used to interpr et this result as normal/abnormal . ROSLYN (test code = ROSLYN) The [facility] patient population mean normal value for aPTT is 30 seconds. Lab Interpretation Normal (test code = 58796-9) [facility] 16:31:19 Test Item Value Reference Range Interpretation Comments APTT Patient (test See_Comment [Automat ed code = 3173-2) message] The system which generated this result transmitted reference range : 23 - 38 Seconds . The reference range was not used to interpr et this result as normal/abnormal . ROSLYN (test code = ROSLYN) The [facility] patient population mean normal value for aPTT is 30 seconds. Lab Interpretation Normal (test code = 54396-2) [facility] ([id number])2022-07-20 16:30:19 Test Item Value Reference Range Interpretation Comments NA (test code = 133 mmol/L 135-145 L 9407718613) K (test code = 5.3 mmol/L 3.5-5 H 7287826111) CL (test code = 98 mmol/L 98-108 2376361776) CO2 TOTAL (test code = 27 mmol/L 23-31 0445186116) AGAP (test code = 2-16 8835751676) BUN (test code = 13 mg/dL 7-23 5083795085) GLUCOSE (test code = 273 mg/dL 70-110 H 7373972761) CREATININE (test code = 0.62 mg/dL 0.6-1.25 0356406266) TOTAL BILI (test code = 2.1 mg/dL 0.1-1.1 H 0128893299) CALCIUM (test code = 8.6 mg/dL 8.6-10.6 7232073087) T PROTEIN (test code = 7.3 g/dL 6.3-8.2 2542489987) ALBUMIN (test code = 4.4 g/dL 3.5-5 4131449472) ALK PHOS (test code = 61 U/L 34-122 2198761619) ALTv (test code = 29 U/L 50 1742-6) AST(SGOT) (test code = 36 U/L 13-40 9268733983) eGFR (test code = mL/min/1.73m2 7281312614) ROSLYN (test code = ROSLYN) Association of [...] tests). Lab Interpretation Abnormal (test code = 21039-3) [facility]. METABOLIC PANEL (45563)2022-07-20 16:30:19 Test Item Value Reference Range Interpretation Comments NA (test code = 133 mmol/L 135-145 L 1173833458) K (test code = 5.3 mmol/L 3.5-5 H 3126820967) CL (test code = 98 mmol/L 98-108 0186994594) CO2 TOTAL (test code = 27 mmol/L 23-31 2941721368) AGAP (test code = 2-16 2942191634) BUN (test code = 13 mg/dL 7-23 1022706192) GLUCOSE (test code = 273 mg/dL 70-110 H 8778891943) CREATININE (test code = 0.62 mg/dL 0.6-1.25 1134404597) TOTAL BILI (test code = 2.1 mg/dL 0.1-1.1 H 8934593036) CALCIUM (test code = 8.6 mg/dL 8.6-10.6 1053285371) T PROTEIN (test code = 7.3 g/dL 6.3-8.2 1579138551) ALBUMIN (test code = 4.4 g/dL 3.5-5 7970253953) ALK PHOS (test code = 61 U/L 34-122 2763973753) ALTv (test code = 29 U/L 5-50 2-6) AST(SGOT) (test code = 36 U/L 13-40 9082380051) eGFR (test code = mL/min/1.73m2 8307186463) ROSLYN (test code = ROSLYN) Association of [...] tests). Lab Interpretation Abnormal (test code = 60806-2) [facility] / [id number] 16:29:23 Test Item Value Reference Range Interpretation Comments PROTIME PATIENT (test See_Comment [Auto mated message] code = 5964-2) The system [employer] generated this result transmitted ref erence range: 12.0 - 1 4.7 Seconds. The re ference range was not u sed to interpret this result as normal/abnor mal. INR (test code = 6301-6) Nor mal INR <1.1; Warfarin Therap eutic range 2.0 to 3. 0 or 2.5 to 3.5, dep ending upon the indica tions. Lab Interpretation (test Normal code = 01656-3) [facility] / [id number] 16:29:23 Test Item Value Reference Range Interpretation Comments PROTIME PATIENT (test See_Comment [Auto mated message] code = 5964-2) The system [employer] generated this result transmitted ref erence range: 12.0 - 1 4.7 Seconds. The re ference range was not u sed to interpret this result as normal/abnor mal. INR (test code = 6301-6) Nor mal INR <1.1; Warfarin Therap eutic range 2.0 to 3. 0 or 2.5 to 3.5, dep ending upon the indica tions. Lab Interpretation (test Normal code = 65122-9) [facility]"
--- NOTE | 2022-11-05 15:20 | RAD REPORT ---
EXAM DESCRIPTION: RAD - Chest Single View - 11/05/2022 3:11 pm CLINICAL HISTORY: CHEST PAIN COMPARISON: Chest Single View dated 10/26/2022; Chest Single View dated 10/23/2022; Chest Single Vie w dated 10/20/2022; Chest Single View dated 10/15/2022 FINDINGS: Lines: None. Lungs: No evidence of edema or pneumonia. Pleural: No significant pleural effusions or pneumothorax. Cardiac: The heart size is within normal limits. Mediastinum: Within normal limits. Bones: No acute fractures. Other: None IMPRESSION: No acute cardiopulmonary disease. No significant change compared with 10/26/2022.
[2022-11-05] MEDS ORDERED: ASPIRIN 81 MG CHEWABLE TABLET ONE (15:35)
[2022-11-05] MEDS ORDERED: FAMOTIDINE 20 MG/2 ML VIAL IV ONE (15:35)
[2022-11-05] MEDS ORDERED: NA CHLORIDE 0.9% 1,000 ML ONE (15:35)
[2022-11-05 15:36] LABS: Absolute Lymphocytes (CBC) 2.3 K/uL (0.7-4.9); Hematocrit 48.7 % (39.6-49.0); Lymphocytes % 14.2 % (15.3-44.8); MPV 10.2 fL (7.6-11.3); RBC Red Blood Cell Count 5.41 M/uL (4.33-5.43)
[2022-11-05 15:54] LABS: SARS-CoV-2 Antigen Rapid Res Negative (Negative)
[2022-11-05 16:25] LABS: Protime INR 1.11
[2022-11-05 16:41] LABS: Albumin 3.3 g/dL (3.4-5.0); Bilirubin Direct 0.1 mg/dL (0-0.2); Bilirubin Total 0.5 mg/dL (0.2-1.0); Magnesium 2.1 mg/dL (1.6-2.4); Troponin High Sensitivity 16.6 pg/mL (<58.9)
[2022-11-05] MEDS ORDERED: METHYLPREDNISOLONE 125 MG INJ ONE (17:05)
[2022-11-05] MEDS ORDERED: MORPHINE 2 MG/ML SYR ONE (17:05)
[2022-11-05] MEDS ORDERED: LEVALBUTEROL 1.25 MG/3 ML NEB ONE (17:05)
--- NOTE | 2022-11-05 17:05 | EDPHYS ---
Physician Documentation [facility] Name: José Pat Age: 72 yrs Sex: Male : 1950 Arrival Date: 11/05/2022 Time: 14:41 Bed 4 Private MD: ED Physician Feliberto Stokes HPI: 11/05 16:51 This 72 yrs old Male presents to ER via Ambulatory with complaints of Chest rosalva Pain. 16:51 The patient or guardian reports chest pain that is located primarily in the substernal rosalva area, epigastric area. Onset: just prior to arrival, this morning. The pain does not radiate. Associated signs and symptoms: Pertinent positives: shortness of breath. The chest pain is described as a pressure. Severity of pain: At its worst the pain was mild in the emergency department the pain is unchanged. The patient has experienced similar episodes in the past, multiple times. Historical: - Allergies: 14:44 No Known Allergies; ll1 - PMHx: 14:44 COPD; Diabetes - IDDM; Chronic Chest Pain; Myocardial infarction; CHF; Atrial ll1 fibrillation; Noncompliance with medications; - Immunization history:: Client reports receiving the 2nd dose of the Covid vaccine. - Social history:: Smoking status: Patient reports the use of cigarette tobacco products, smokes one-half pack cigarettes per day. - Family history:: not pertinent. ROS: 16:51 Constitutional: Negative for fever, chills, and weight loss, Eyes: Negative for injury, rosalva pain, redness, and discharge, ENT: Negative for injury, pain, and discharge, Neck: Negative for injury, pain, and swelling, Respiratory: Negative for shortness of breath, cough, wheezing, and pleuritic chest pain, Abdomen/GI: Negative for abdominal pain, nausea, vomiting, diarrhea, and constipation, Back: Negative for injury and pain, : Negative for injury, bleeding, discharge, and swelling, MS/Extremity: Negative for injury and deformity, Skin: Negative for injury, rash, and discoloration, Neuro: Negative for headache, weakness, numbness, tingling, and seizure, Psych: Negative for depression, anxiety, suicide ideation, homicidal ideation, and hallucinations, Allergy/Immunology: Negative for hives, rash, and allergies, Endocrine: Negative for neck swelling, polydipsia, polyuria, polyphagia, and marked weight changes, Hematologic/Lymphatic: Negative for swollen nodes, abnormal bleeding, and unusual bruising. 16:51 Cardiovascular: Positive for chest pain, of the chest. 16:51 Respiratory: Positive for shortness of breath, at rest. Exam: 16:54 Constitutional: This is a well developed, well nourished patient who is awake, alert, rosalva and in no acute distress. Head/Face: Normocephalic, atraumatic. Eyes: Pupils equal round and reactive to light, extra-ocular motions intact. Lids and lashes normal. Conjunctiva and sclera are non-icteric and not injected. Cornea within normal limits. Periorbital areas with no swelling, redness, or edema. ENT: Nares patent. No nasal discharge, no septal abnormalities noted. Tympanic membranes are normal and external auditory canals are clear. Oropharynx with no redness, swelling, or masses, exudates, or evidence of obstruction, uvula midline. Mucous membranes moist. Neck: Trachea midline, no thyromegaly or masses palpated, and no cervical lymphadenopathy. Supple, full range of motion without nuchal rigidity, or vertebral point tenderness. No Meningismus. Chest/axilla: Normal chest wall appearance and motion. Nontender with no deformity. No lesions are appreciated. Cardiovascular: Regular rate and rhythm with a normal S1 and S2. No gallops, murmurs, or rubs. Normal PMI, no JVD. No pulse deficits. Respiratory: Lungs have equal breath sounds bilaterally, clear to auscultation and percussion. No rales, rhonchi or wheezes noted. No increased work of breathing, no retractions or nasal flaring. Abdomen/GI: Soft, non-tender, with normal bowel sounds. No distension or tympany. No guarding or rebound. No evidence of tenderness throughout. Back: No spinal tenderness. No costovertebral tenderness. Full range of motion. Male : Normal genitalia with no discharge or lesions. Skin: Warm, dry with normal turgor. Normal color with no rashes, no lesions, and no evidence of cellulitis. MS/ Extremity: Pulses equal, no cyanosis. Neurovascular intact. Full, normal range of motion. Neuro: Awake and alert, GCS 15, oriented to person, place, time, and situation. Cranial nerves II-XII grossly intact. Motor strength 5/5 in all extremities. Sensory grossly intact. Cerebellar exam normal. Normal gait. Psych: Awake, alert, with orientation to person, place and time. Behavior, mood, and affect are within normal limits. 16:54 ECG was reviewed by the Attending Physician. Vital Signs: 14:44 BP 144 / 76; Pulse 40; Resp 18; Temp 97.8; Pulse Ox 91% ; Weight 94.35 kg; Height 5 ft. ll1 7 in. (170.18 cm); Pain 8/10; 15:30 BP 109 / 67; Pulse 102; Resp 18; Pulse Ox 93% on R/A; Pain 8/10; ld1 17:56 BP 124 / 75; Pulse 108; Resp 18; Pulse Ox 98% on R/A; ld1 18:46 BP 115 / 73; Pulse 106; Resp 14; Pulse Ox 95% on R/A; ld1 21:26 BP 131 / 93; Pulse 108; Resp 20 S; Pulse Ox 95% on R/A; as6 14:44 Body Mass Index 32.58 (94.35 kg, 170.18 cm) ll1 MDM: 14:47 Patient medically screened. rosalva 16:54 Differential diagnosis: abnormal EKG, acute myocardial infarction, anxiety, coronary rosalva artery disease esophagitis, gastritis, hiatal hernia, pericarditis, pneumonia, pneumothorax, pulmonary embolus, stable angina, unstable angina. HEART Score: History: Slightly Suspicious (0), ECG: Non specific repolarization disturbance / LBTB / PM (1), Age: > or = 65 years (2), Risk Factors: > or = 3 Risk factors for atherosclerotic disease (2), [Hypercholesterolemia] [Hypertension] [DM] [+ Family HX] [Obesity] Troponin: < or = 1 x Normal Limit (0). The patient was given aspirin in the Emergency Department. The patient's deep vein thrombosis risk score was calculated as follows: Total Score: 0. This patient was found to be at low risk for a deep vein thrombosis by using the Well's assessment criteria. The patient's pulmonary embolism risk score was calculated as follows: the patients heart rate is greater than 100 beats per minute (1.5 Pts) Total Score: 0-2 points. This patient was found to be at low risk for a pulmonary embolism by using the Well's assessment criteria. FLORENTIN Risk Score: 1 - patient's age is greater or equal to 65 years, 1 - Three or more CAD risk factors, 1 - Recent [<24hrs] Severe Angina, TOTAL SCORE = 3. Data reviewed: vital signs, nurses notes, EMS record, lab test result(s), EKG, radiologic studies, plain films. Data interpreted: saw repairer: rate is 102 beats/min, rhythm is regular, Pulse oximetry: on room air is 93 %. Test interpretation: by ED physician or midlevel provider: ECG, plain radiologic studies. Counseling: I had a detailed discussion with the patient and/or guardian regarding: the historical points, exam findings, and any diagnostic results supporting the discharge/admit diagnosis, lab results, radiology results, the need for further work-up and treatment in the hospital. 11/05 14:51 Order name: Basic Metabolic Panel; Complete Time: 16:50 rosalva 11/05 14:51 Order name: CBC with Diff [facility] 11/05 14:51 Order name: LFT's; Complete Time: 16:50 [facility] 11/05 14:51 Order name: Magnesium; Complete Time: 16:50 [facility] 11/05 14:51 Order name: NT PRO-BNP; Complete Time: 16:50 rosalva 11/05 14:51 Order name: PT-INR; Complete Time: 16:50 [facility] 11/05 14:51 Order name: Troponin HS; Complete Time: 16:50 rosalva 11/05 14:51 Order name: Lipase; Complete Time: 16:50 [facility] 11/05 14:51 Order name: SARS RAPID; Complete Time: 16:50 [facility] 11/05 15:30 Order name: D-Dimer; Complete Time: 16:50 [facility] 11/05 17:36 Order name: Urine Dipstick-Ancillary [facility] 11/05 18:01 Order name: Urinalysis [facility] 11/05 18:01 Order name: Basic Metabolic Panel [facility] 11/05 18:01 Order name: Basic Metabolic Panel [facility] 11/05 14:51 Order name: XRAY Chest (1 view); Complete Time: 16:50 [facility] 11/05 18:01 Order name: CBC with Automated Diff [facility] 11/05 18:01 Order name: CBC with Automated Diff [facility] 11/05 18:01 Order name: Troponin High Sensitivity [facility] 11/05 18:01 Order name: Troponin High Sensitivity [facility] 11/05 18:01 Order name: Troponin High Sensitivity [facility] 11/05 20:26 Order name: CBC Smear Scan [facility] 11/05 22:27 Order name: Glucose, Ancillary Testing [facility] 11/05 14:51 Order name: EKG; Complete Time: 14:52 [facility] 11/05 14:51 Order name: Cardiac monitoring; Complete Time: 15:26 [facility] 11/05 14:51 Order name: EKG - Nurse/Tech; Complete Time: 15:26 [facility] 11/05 14:51 Order name: IV Saline Lock; Complete Time: 15:26 [facility] 11/05 14:51 Order name: Labs collected and sent; Complete Time: 15:26 [facility] 11/05 14:51 Order name: O2 Per Protocol; Complete Time: 15: [facility] 11/05 14:51 Order name: O2 Sat Monitoring; Complete Time: 15: [facility] 11/05 16:50 Order name: Urine Dipstick-Ancillary (obtain specimen); Complete Time: 17:34 [facility] 11/05 18:01 Order name: 60g Consistent Carbohydrate (ADA 1800/2000) EDKS EC:54 Rate is 103 beats/min. Rhythm is regular. QRS [place] is Normal. [place] interval is normal. [facility] QRS interval is normal. QT interval is normal. No Q waves. T waves are Normal. No ST changes noted. Clinical impression: Abnormal EKG without significant change and No evidence of ischemia. Interpreted by me. Reviewed by me. Administered Medications: 15:39 Drug: NS 0.9% 1000 ml Route: IV; Rate: 125 ml/hr; Site: right wrist; ld1 21:56 Follow up: Response: No adverse reaction; IV Status: Completed infusion; IV Intake: as6 1000ml 15:39 Drug: Aspirin Chewable Tablet 162 mg Route: PO; ld1 15:39 Drug: Pepcid (famotidine) 20 mg Route: IVP; Site: right wrist; ld1 17:25 Drug: Xopenex (levalbuterol) 1.25 mg Route: Inhalation; ld1 17:25 Drug: AtroVENT (ipratropium) Aerosol 0.5 mg Route: Inhalation; ld1 17:25 Drug: SOLU-Medrol (methylPrednisoLONE) 125 mg Route: IVP; Site: right antecubital; ld1 21:56 Follow up: Response: No adverse reaction as6 17:26 Drug: NS 0.9% 500 ml Route: IV; Rate: bolus; Site: right antecubital; ld1 20:50 Follow up: Response: No adverse reaction; IV Status: Completed infusion; IV Intake: em6 500ml 17:26 Drug: Lovenox (enoxaparin) 90 mg Route: Sub-Q; Site: abdomen; ld1 17:26 Drug: morphine 2 mg Route: IVP; Infused Over: 4 mins; Site: right antecubital; ld1 17:26 Drug: Zofran (Ondansetron) 4 mg Route: IVP; Site: right antecubital; ld1 Disposition Summary: 11/05/22 17:04 Hospitalization Ordered Hospitalization Status: Observation rosalva Provider: Tim Chaidez cha Location: Telemetry/MedSurg (observation) rosalva Condition: Fair rosalva Problem: new rosalva Symptoms: have improved rosalva Bed/Room Type: Standard rosalva Room Assignment: 408(11/05/22 21:12) cg Diagnosis - Paroxysmal atrial fibrillation rosalva - Chest pain, unspecified rosalva - Systolic (congestive) heart failure - Chronic rosalva - Hyperlipidemia, unspecified rosalva - Essential (primary) hypertension rosalva - prison (current) use of anticoagulants - poorly compliant rosalva - COPD/ Chronic obstructive pulmonary disease, unspecified rosalva - Elevated white blood cell count rosalva Forms: - Medication Reconciliation Form rosalva - SBAR form rosalva Signatures: Dispatcher [employer] EDFeliberto Conner MD MD cha Garcia, Cindy, RN RN cg Gen Chaparro RN RN ll1 Melania Singer RN RN ana luisa1 Tiburcio Odell RN as6 Maria Gómez RN em6 Corrections: (The following items were deleted from the chart) 21:12 17:04 rosalva cg
--- NOTE | 2022-11-05 17:05 | ER ---
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 Coronavirus screen: Vaccine status: ll1 Patient reports receiving the 2nd dose of the covid vaccine. Client denies travel out of the [place] in the last 14 days. At this time, the client does not indicate any symptoms associated with coronavirus-19. Ebola Screen: Patient denies travel to an Ebola-affected area in the 21 days before illness onset. Initial Sepsis Screen: Does the patient meet any 2 criteria? No. Patient's initial sepsis screen is negative. Does the patient have a suspected source of infection? No. Patient's initial sepsis screen is negative. Risk Assessment: Do you want to hurt yourself or someone else? Patient reports no desire to harm self or others. Onset of symptoms was November 05, 2022. 14:44 Method Of Arrival: Ambulatory 1 14:44 Acuity: KIT 2 ll1 Historical: - Allergies: 14:44 No Known Allergies; ll1 - PMHx: 14:44 COPD; Diabetes - IDDM; Chronic Chest Pain; Myocardial infarction; CHF; Atrial ll1 fibrillation; Noncompliance with medications; - Immunization history:: Client reports receiving the 2nd dose of the Covid vaccine. - Social history:: Smoking status: Patient reports the use of cigarette tobacco products, smokes one-half pack cigarettes per day. - Family history:: not pertinent. Screenin:30 [facility] ED Fall Risk Assessment (Adult) History of falling in the last 3 months, ld1 including since admission No falls in past 3 months (0 pts) Confusion or Disorientation No (0 pts) Intoxicated or Sedated No (0 pts). Abuse screen: Denies threats or abuse. Denies injuries from another. Nutritional screening: No deficits noted. Tuberculosis screening: No symptoms or risk factors identified. Assessment: 15:30 General: Appears in no apparent distress. comfortable, Behavior is calm, cooperative, ld1 appropriate for age. Pain: Complains of pain in chest Pain does not radiate. Pain currently is 8 out of 10 on a pain scale. Quality of pain is described as throbbing, Pain began gradually, Is continuous. Neuro: Level of Consciousness is awake, alert, obeys commands, Oriented to person, place, time, situation. Cardiovascular: Capillary refill < 3 seconds Patient's skin is warm and dry. Rhythm is sinus rhythm. Respiratory: Airway is patent Respiratory effort is even, unlabored. GI: Abdomen is flat, non-distended. : No signs and/or symptoms were reported regarding the genitourinary system. EENT: No signs and/or symptoms were reported regarding the EENT system. Derm: No signs and/or symptoms reported regarding the dermatologic system. Musculoskeletal: No signs and/or symptoms reported regarding the musculoskeletal system. 17:56 Reassessment: Patient appears in no apparent distress at this time. No changes from ld1 previously documented assessment. Patient and/or family updated on plan of care and expected duration. Pain level reassessed. Vital Signs: 14:44 BP 144 / 76; Pulse 40; Resp 18; Temp 97.8; Pulse Ox 91% ; Weight 94.35 kg; Height 5 ft. ll1 7 in. (170.18 cm); Pain 8/10; 15:30 BP 109 / 67; Pulse 102; Resp 18; Pulse Ox 93% on R/A; Pain 8/10; ld1 17:56 BP 124 / 75; Pulse 108; Resp 18; Pulse Ox 98% on R/A; ld1 18:46 BP 115 / 73; Pulse 106; Resp 14; Pulse Ox 95% on R/A; ld1 21:26 BP 131 / 93; Pulse 108; Resp 20 S; Pulse Ox 95% on R/A; as6 14:44 Body Mass Index 32.58 (94.35 kg, 170.18 cm) ll1 ED Course: 14:41 Patient arrived in ED. as 14:45 Triage completed. ll1 14:45 Arm band placed on Patient placed in an exam room, on a stretcher. ll1 14:46 Feliberto Stokes MD is Attending Physician. [facility] 14:48 Melania Singer, MADELEINE is Primary Nurse. ld1 15:12 XRAY Chest (1 view) In Process Unspecified. EDMS 15:26 Initial lab(s) drawn, by ED staff, sent to lab. Inserted saline lock: 20 gauge in right em1 wrist, using aseptic technique. Blood collected. 15:27 EKG done, by ED staff, reviewed by Feliberto Stokes MD. em1 15:29 SARS RAPID Sent. ld1 15:30 Patient has correct armband on for positive identification. Placed in gown. Bed in low ld1 position. Call light in reach. Side rails up X2. private chef on. Pulse ox on. NIBP on. Door closed. Noise minimized. Warm blanket given. 15:30 No provider procedures requiring assistance completed. Patient maintains SpO2 ld1 saturation greater than 95% on room air. 15:40 SARS RAPID Sent. ld1 17:00 Tim Chaidez is Hospitalizing Provider. [facility] 21:30 Patient admitted, IV remains in place. as6 Administered Medications: 15:39 Drug: NS 0.9% 1000 ml Route: IV; Rate: 125 ml/hr; Site: right wrist; ld1 21:56 Follow up: Response: No adverse reaction; IV Status: Completed infusion; IV Intake: as6 1000ml 15:39 Drug: Aspirin Chewable Tablet 162 mg Route: PO; ld1 15:39 Drug: Pepcid (famotidine) 20 mg Route: IVP; Site: right wrist; ld1 17:25 Drug: Xopenex (levalbuterol) 1.25 mg Route: Inhalation; ld1 17:25 Drug: AtroVENT (ipratropium) Aerosol 0.5 mg Route: Inhalation; ld1 17:25 Drug: SOLU-Medrol (methylPrednisoLONE) 125 mg Route: IVP; Site: right antecubital; ld1 21:56 Follow up: Response: No adverse reaction as6 17:26 Drug: NS 0.9% 500 ml Route: IV; Rate: bolus; Site: right antecubital; ld1 20:50 Follow up: Response: No adverse reaction; IV Status: Completed infusion; IV Intake: em6 500ml 17:26 Drug: Lovenox (enoxaparin) 90 mg Route: Sub-Q; Site: abdomen; ld1 17:26 Drug: morphine 2 mg Route: IVP; Infused Over: 4 mins; Site: right antecubital; ld1 17:26 Drug: Zofran (Ondansetron) 4 mg Route: IVP; Site: right antecubital; ld1 Medication: 15:30 VIS not applicable for this client. ld1 Intake: 20:50 IV: 500ml; Total: 500ml. em6 21:56 IV: 1000ml; Total: 1500ml. as6 Outcome: 17:04 Decision to Hospitalize by Provider. rosalva 21:30 Admitted to Tele accompanied by dana, family with patient, room 409, with chart, Report as6 called to Jovani SALVADOR 21:30 Condition: stable 21:30 Instructed on the need for admit. 22:28 Patient left the ED. as6 Signatures: Dispatcher [employer] Feliberto Keller MD MD cha Martinez, Amelia as Martinez, Eric em1 Gen Chaparro RN RN ll1 Melania Singer RN RN ld1 Tiburcio Odell RN RN as6 Maria Gómez RN RN em6
[2022-11-05] MEDS ORDERED: ENOXAPARIN 100 MG/ML SYR SQ ONE (17:06)
[2022-11-05] MEDS ORDERED: ONDANSETRON 4 MG/2 ML VIAL ONE (17:06)
[2022-11-05] MEDS ORDERED: NA CHLORIDE 0.9% 500 ML ONE (17:06)
[2022-11-05] MEDS ORDERED: IPRATROPIUM BROM 0.5MG/2.5ML ONE (17:06)
[2022-11-05 17:36] LABS: Urine Blood Negative (Negative); Urine Glucose 3+ (Negative); Urine Protein Negative (Negative); Urine Specific Gravity 1.025 (1.005-1.030); Urine pH 5.5 (5.0-7.0)
[2022-11-05] MEDS ORDERED: ALBUTEROL 2.5 MG/3 ML NEB SOL NEB PRN (17:41)
[2022-11-05] MEDS ORDERED: ACETAMINOPHEN 500 MG TAB PO PRN (17:41)
--- NOTE | 2022-11-05 18:07 | P.HP ---
Certification for Inpatient Patient admitted to: Observation With expected LOS: <2 Midnights Patient will require the following post-hospital care: None Practitioner: I am a practitioner with admitting privileges, knowledge of patient current condition, hospital course, and medical plan of care. Services: Services provided to patient in accordance with Admission requirements found in Title 42 Section 412.3 of the Code of Federal Regulations Patient History Date of Service: 11/05/22 Reason for admission: Chest pain History of Present Illness: Patient is a 72-year-old male with a past medical history significant for CHF, A. fib on Eliquis and Digoxin, COPD, DM 2, PR, BPH, who presents to the emergency room with complaint of chest pain at rest that started today around noon. Patient reports chest pain located in the substernal chest/epigastric area, rated pain as 8/10 in severity and described pain as pinching in quality and non-radiating. He reportes taking 3 baby aspirin which improved the pain to 6/10. Patient reported associated signs and symptoms of shortness of breath. Patient denies any other signs and symptoms. Symptoms are aggravated by exertion and relieved by nothing. Patient will admitted for observation under Dr. Chaidez. We will work him up to rule out PR with cardiology consulted. Allergies No Known Allergies Allergy (Verified 06/10/22 22:17) Home medications list reviewed: Yes Home Medications: Aspirin [Aspirin EC 81 MG] 81 mg PO DAILY #30 tablet. 07/04/22 Apixaban [Eliquis] 5 mg PO BID #60 tab 10/09/22 Atorvastatin Calcium [Lipitor] 40 mg PO BEDTIME #30 tab 10/09/22 Digoxin 125 mcg PO DAILY #30 tab 10/09/22 Fluticasone/Umeclidin/Vilanter [Trelegy Ellipta 200-62.5-25] 1 each IH DAILY 30 Days #1 kit 10/24/22 Furosemide [Lasix] 40 mg PO DAILY #10 tab 10/24/22 predniSONE [Deltasone] 40 mg PO DAILY #30 tab 10/24/22 - Past Medical/Surgical History Has patient received pneumonia vaccine in the past: Yes Diabetic: Yes -: DIVERTICULITIS -: COPD -: A. fib -: Diastolic CHF -: Diabetes mellitus type 2 -: Hypertension -: Hyperlipidemia -: Colostomy and reversal Psychosocial/ Personal History: Patient lives at home with his - Family History Father Notes: mesothelioma Mother -: Heart disease, Hypertension - Social History Smoking Status: Current every day smoker Counseled patient to stop smoking for: less than 10 minutes Alcohol use: No CD- Drugs: No Caffeine use: Yes Place of Residence: Home Review of Systems 10-point ROS is otherwise unremarkable Respiratory: Shortness of Breath Cardiovascular: Chest Pain, Orthopnea Gastrointestinal: Diarrhea Physical Examination - Vital Signs Temperature: 97.8 F Blood Pressure: 144/78 Pulse: 102 Respirations: 22 Pulse Ox (%): 93 - Physical Exam General: Alert, Oriented x3 HEENT: Atraumatic, Normocephalic, PERRLA Neck: Supple, 2+ carotid pulse no bruit Respiratory: Diminished Cardiovascular: No edema, Normal pulses Capillary refill: <2 Seconds Gastrointestinal: Normal bowel sounds, No tenderness Musculoskeletal: No clubbing, No swelling Integumentary: No rashes Neurological: Normal speech, Normal strength at 5/5 x4 extr Lymphatics: No axilla or inguinal lymphadenopathy - Studies Laboratory Data (last 24 hrs) 11/05/22 16:13: PT 12.2, INR 1.11 11/05/22 16:13: Sodium 140, Potassium 4.0, BUN 13, Creatinine 1.01, Glucose 185 H, Magnesium 2.1, Total Bilirubin 0.5, AST 8 L, ALT 17, Alkaline Phosphatase 66, Lipase 131 11/05/22 15:23: WBC 16.00 H, Hgb 16.5, Hct 48.7, Plt Count 205 Assessment and Plan - Plan Assessment Chest pain rule out myocardial infarction Acute on Chronic COPD Exacerbation Acute on Chronic Systolic CHF Exacerbation DM2 Chronic Atrial Fibrilation Hx of PR HLD Plan Chest pain rule out myocardial infarction Serial troponins Cardiology consulted, recommendations appreciated Last cardiac cath on 10/23/22- Normal Continue telemetry, ASA, statin Acute on Chronic COPD Exacerbation CXR- No acute cardiopulmonary disease. No significant change compared with 10/26/2022 Continue steroids, nebulizer treatment with Atrovent\DuoNeb and O2 therapy. Acute on Chronic Systolic CHF Exacerbation ECHO (08/12/22) MODERATLEY DEPRESSED LEFT VENTRICULAR EJECTION FRACTION 30-35%. MODERATE GLOBAL HYPOKINESIS. LEFT ATRIAL ENLARGEMENT. MILD MITRAL AND TRICUSPID REGURGITATION BNP-2,105 Continue diuresis with Lasix. Daily weight and strict I/O. DM2 Blood glucose monitoring with sliding scale insulin Chronic Atrial Fibrillation Continue Eliquis Resume Digoxin when appropriate Hx of PR Continue aspirin, Eliquis and statin HLD Continue statin PPX- Eliquis, SCDs Discharge Plan: Home Plan to discharge in: 48 Hours - Advance Directives Does patient have a Living Will: No Does patient have a Durable POA for Healthcare: No - Code Status/Comfort Care Code Status Assessed: Yes (Full code) Critical Care: No Time Spent Managing Pts Care (In Minutes): 55
[2022-11-05 20:25] LABS: White Blood Cell Scan OK (OK)
[2022-11-05 20:26] LABS: Blood Morphology Comment NOT SEEN (NOT SEEN); Platelet Estimate ADEQ
[2022-11-05] MEDS ORDERED: ATORVASTATIN 40 MG TAB PO SCH (21:00)
[2022-11-05 22:21] VITALS: BMI 32.5
[2022-11-05] MEDS: APIXABAN 5 MG TABLET PO SCH (22:32)
[2022-11-05] MEDS: INSULIN -REGULAR HUMAN 50 UNIT/0.5 ML ML SQ SCH (22:32)
[2022-11-05] MEDS: carvediloL 6.25 MG TAB PO SCH (22:32)
[2022-11-06] MEDS: METHYLPREDNISOLONE 40 MG INJ IV SCH ×3 (00:32→16:06)
[2022-11-06 03:51] LABS: Absolute Lymphocytes (CBC) 0.8 K/uL (0.7-4.9); Hematocrit 45.3 % (39.6-49.0); Lymphocytes % 6.2 % (15.3-44.8); MCV 90.4 fL (80-100); MPV 10.4 fL (7.6-11.3); RBC Red Blood Cell Count 5.01 M/uL (4.33-5.43)
[2022-11-06 04:08] LABS: Potassium 4.9 mmol/L (3.5-5.1)
[2022-11-06 04:40] LABS: Blood Morphology Comment NOT SEEN (NOT SEEN); Platelet Estimate ADEQ
[2022-11-06] MEDS: INSULIN -REGULAR HUMAN 50 UNIT/0.5 ML ML SQ SCH ×3 (07:30→16:06)
[2022-11-06] MEDS: carvediloL 6.25 MG TAB PO SCH (09:00)
[2022-11-06] MEDS: APIXABAN 5 MG TABLET PO SCH (09:00)
[2022-11-06] MEDS: FUROSEMIDE 20 MG/ 2ML VIAL IV SCH ×2 (09:00→16:06)
[2022-11-06] MEDS ORDERED: ASPIRIN 81 MG CHEWABLE TABLET PO SCH (09:00)
--- NOTE | 2022-11-06 17:36 | P.PN ---
Subjective Date of Service: 11/06/22 Chief Complaint: Chest pain Patient stated he feels much better today. He states his shortness of breath has significantly improved. Physical Examination - Vital Signs Temperature: 97.7 F Blood Pressure: 100/56 Pulse: 101 Respirations: 19 Pulse Ox (%): 92 - Physical Exam General: Alert, In no apparent distress HEENT: Mucous membr. moist/pink Neck: JVD not distended Respiratory: Clear to auscultation bilaterally, Normal air movement Cardiovascular: No edema, Regular rate/rhythm, Normal S1 S2 Gastrointestinal: Soft and benign, Non-distended Musculoskeletal: No swelling Integumentary: No cyanosis Neurological: Normal strength at 5/5 x4 extr - Studies Laboratory Data (last 24 hrs) 11/05/22 15:23: WBC 16.00 H, Hgb 16.5, Hct 48.7, Plt Count 205 Assessment And Plan - Current Problems (Diagnosis) (1) Chest pain Current Visit: No Status: Acute Qualifiers: Chest pain type: unspecified Qualified Code(s): R07.9 - Chest pain, unspecified (2) Chronic systolic heart failure Current Visit: Yes Status: Acute (3) Afib Current Visit: No Status: Chronic Qualifiers: Atrial fibrillation type: paroxysmal Qualified Code(s): I48.0 - Paroxysmal atrial fibrillation (4) COPD (chronic obstructive pulmonary disease) Current Visit: No Status: Chronic Qualifiers: COPD type: unspecified COPD Qualified Code(s): J44.9 - Chronic obstructive pulmonary disease, unspecified (5) Type 2 diabetes mellitus Current Visit: No Status: Chronic Qualifiers: Diabetes mellitus 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 No ACS. Patient recently underwent cardiac catheterization and noted to have normal coronary arteries. Patient with detailed CAD work-up which is unremarkable. Chest pain is likely noncardiac. Chest x-ray shows no evidence of CHF. Continue home medications. Continue Eliquis. Treat for COPD exacerbation with steroids and bronchodilators. Clinically stable.
--- NOTE | 2022-11-06 18:38 | P.DS ---
Admission Date: 11/05/22 Discharge Date: 11/06/22 Disposition: AL HOME/HOME HEALTH CARE Discharge Condition: FAIR Reason for Admission: Chest pain - Problems (1) Chest pain Current Visit: No Status: Acute Qualifiers: Chest pain type: unspecified Qualified Code(s): R07.9 - Chest pain, unspecified (2) Chronic systolic heart failure Current Visit: Yes Status: Acute (3) Afib Current Visit: No Status: Chronic Qualifiers: Atrial fibrillation type: paroxysmal Qualified Code(s): I48.0 - Paroxysmal atrial fibrillation (4) COPD (chronic obstructive pulmonary disease) Current Visit: No Status: Chronic Qualifiers: COPD type: unspecified COPD Qualified Code(s): J44.9 - Chronic obstructive pulmonary disease, unspecified (5) Type 2 diabetes mellitus Current Visit: No Status: Chronic Qualifiers: 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 fib on Eliquis and Digoxin, COPD, DM 2, RI, BPH, who presents to the e mergency room with complaint of chest pain at rest that started today around noon. Patient reported chest pain located in the substernal chest/epigastric area, rated pain as 8/10 in severity and described pain as pinching in quality and non-radiating. He reported he took 3 baby aspirin which improved the pain to 6/10. Patient reported associated signs and symptoms of shortness of breath. Patient denies any other signs and symptoms. Symptoms are aggravated by exertion and relieved by nothing. Patient placed on observation for further evaluation. Hospital Course: Patient placed on observation on the medical floor. Troponin trended negative. He was complaining of some shortness of breath. He was treated for COPD exacerbation. He is currently asymptomatic. Noted his most recent cardiac cath showed normal coronary arteries. Chest pain likely noncardiac. Vitals are stable, patient is deemed clinically stable for discharge. He is prescribed oral prednisone and bronchodilators for COPD. Vital Signs/Physical Exam: Temp Pulse Resp BP Pulse Ox 97.7 F 101 H 19 100/56 L 92 11/06/22 17:44 11/06/22 17:44 11/06/22 17:44 11/06/22 17:44 11/06/22 17:44 General: Alert, In no apparent distress, Oriented x3 Neck: JVD not distended Respiratory: Clear to auscultation bilaterally, Diminished Cardiovascular: Normal S1 S2, Irregular heart rate/rhythm Gastrointestinal: Soft and benign, Non-distended Musculoskeletal: No swelling Integumentary: No cyanosis Neurological: Normal strength at 5/5 x4 extr Laboratory Data at Discharge: WBC 13.30 K/uL (4.3-10.9) H 11/06/22 03:00 Hgb 15.4 g/dL (13.6-17.9) 11/06/22 03:00 Hct 45.3 % (39.6-49.0) 11/06/22 03:00 Plt Count 200 K/uL (152-406) 11/06/22 03:00 PT 12.2 SECONDS (9.5-12.5) 11/05/22 16:13 INR 1.11 11/05/22 16:13 Sodium 138 mmol/L (136-145) 11/06/22 03:00 Potassium 4.9 mmol/L (3.5-5.1) D 11/06/22 03:00 BUN 13 mg/dL (7-18) 11/06/22 03:00 Creatinine 1.00 mg/dL (0.70-1.30) 11/06/22 03:00 Glucose 279 mg/dL (74-106) H 11/06/22 03:00 Magnesium 2.1 mg/dL (1.6-2.4) 11/05/22 16:13 Total Bilirubin 0.5 mg/dL (0.2-1.0) 11/05/22 16:13 AST 8 U/L (15-37) L 11/05/22 16:13 ALT 17 U/L (16-61) 11/05/22 16:13 Alkaline Phosphatase 66 U/L (45-117) 11/05/22 16:13 Lipase 131 U/L (73-393) 11/05/22 16:13 Home Medications: Aspirin [Aspirin EC 81 MG] 81 mg PO DAILY #30 tablet. 07/04/22 Apixaban [Eliquis] 5 mg PO BID #60 tab 10/09/22 Atorvastatin Calcium [Lipitor] 40 mg PO BEDTIME #30 tab 10/09/22 Digoxin 125 mcg PO DAILY #30 tab 10/09/22 Fluticasone/Umeclidin/Vilanter [Trelegy Ellipta 200-62.5-25] 1 each IH DAILY 30 Days #1 kit 10/24/22 Furosemide [Lasix*] 40 mg PO DAILY #10 tab 10/24/22 Albuterol Neb [Proventil 0.083% Neb Soln] 2.5 mg NEB [id number] PRN #120 amp 11/06/22 Ipratropium Neb [Atrovent*] 0.5 mg IH Q6H #120 amp 11/06/22 Nebulizer 1 each QID #1 kit 11/06/22 predniSONE [Prednisone*] 20 mg PO DAILY #5 tab 11/06/22 New Medications: Albuterol Neb [Proventil 0.083% Neb Soln] 2.5 mg NEB [id number] PRN #120 amp PRN Reason: Shortness Of Breath Ipratropium Neb [Atrovent*] 0.5 mg IH Q6H #120 amp Nebulizer 1 each QID #1 kit predniSONE [Prednisone*] 20 mg PO DAILY #5 tab Diet: ADA Activity: Fall precautions Followup: NONE,NONE [Primary Care Provider] -
--- NOTE | 2022-11-06 20:19 | CON ---
Date of Consultation: 11/06/2022 Reason For Consultation: Chest pain. 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 He was at rest, watching TV, left s ided, no radiation. Pain was 6/10. The patient had a coronary angiogram done by Dr. Yfn loza with totally normal arteries. Past Medical History: As outlined above in the HPI. Medications: Refer to reconciliation sheet for detailed list. Allergies: NO KNOWN DRUG ALLERGIES. Family History: No premature coronary artery disease or cancer. Social History: He smokes daily, about half a pack to 1 pack. Does not drink or use any drugs. Review of Systems: All systems reviewed and they were negative except as mentioned in HPI. Physical Examination: Vital Signs: Reviewed. Head And Neck: Pupils are equal and reactive to light. Intact eye movements. No JVD. No cervical lymphadenopathy. Neck is supple. Thyroid is not enlarged. Lungs: Clear to auscultation bilaterally. No rhonchi, wheezing, or crackles. No accessory muscle u se. Heart: Regular rate and rhythm. No extra sounds. Abdomen: Soft, nontender. Bowel sounds positive. No organomegaly. No masses or hernia. No rigidi ty or rebound. Extremities: No edema, clubbing, or cyanosis. Intact pulses. Skin: No rashes. Neuro: Alert, awake, and oriented x3. No acute focal deficits appreciated. Investigations: BUN 13, creatinine 1.0. Cardiac enzymes x3 are negative. Assessment/recommendations: 1.Chest pain. The patient had normal coronary angiogram recently. Coronary exams are negative. D- dimer is negative. This is noncardiac. Explained to the patient that unlikely that he will have a c ardiac event due to having normal coronary angiogram recently. From Cardiology standpoint, patient c an be released and follow up as an outpatient. 2.Active smoker. Patient was counseled against smoking in detail and explained that smoking can cau se coronary vasospasm that can produce chest pain and encouraged to quit. 3.Hypertension. Blood pressure is controlled. SR/MODL Voice ID: [id number] Report ID: [id number]
[2022-11-06 20:28] VITALS: O2SAT 92
--- NOTE | 2022-11-07 17:50 | EKG ---
Test Date: 2022-11-05 Test Time: 15:12:49 Ammonium Nitrate Crystallizer: ATIF MEASUREMENT RESULTS: Intervals: Rate: 103 VA: 208 QRSD: 140 QT: 352 QTc: 461 [place]: P: 98 VA: 208 QRS: 269 T: 52 INTERPRETIVE STATEMENTS: Suspect arm lead reversal, interpretation assumes no reversal Sinus tachycardia Right bundle branch block Inferior infarct, age undetermined Anterior infarct, age undetermined Abnormal ECG Compared to ECG 10/29/2022 17:02:24 No significant changes Electronically Signed On 11-07-22 17:46:01 [employer]ERSON [employer]ES by Gianluca Garcia
[2022-11-08 18:19] VITALS: BP 100/56; TEMP 97.7
== END 2022-11-06 20:45 | disposition home health service (06) ==
LOC: ER 14:40 → ERHOLD 17:40 → 4TH 21:29
PROVIDERS: ADMIT Internal Medicine; ATTEND Internal Medicine
DX: R07.9 Chest pain, unspecified (principal); J44.1 Chronic obstructive pulmonary disease with (acute) exacerbation; E11.9 Type 2 diabetes mellitus without complications; I48.0 Paroxysmal atrial fibrillation; Z79.01 Long term (current) use of anticoagulants; E78.5 Hyperlipidemia, unspecified; I50.22 Chronic systolic (congestive) heart failure; F17.210 Nicotine dependence, cigarettes, uncomplicated; I10 Essential (primary) hypertension
CPT/HCPCS: 36415; 71045; 80048; 80076; 81003; 82947; 83690; 83735; 83880; 84484; 85025; 85379; 85610; 87811; 93005; 96372; 99285; G0378; J1650; J1815; J1940; J2270; J2405; J2920; J2930; J7030; J7040; J7614; J7644

== ENCOUNTER 2022-11-07 18:39 | Inpatient (IN) | payer OTHER ==
--- OUTSIDE RECORDS SUMMARY | 2022-11-07 18:46 | XMS REPORT | Continuity of Care Document ---
:1950 Author Organization [facility] t Address [address] [place] [address] Care Team Providers Name Role Phone Pcp, Patient Does Not Have A Primary Care Physician [phone] Attending Clinician Unavailable Meghana Ayala Attending Clinician Unavailable Jose Kim Rahil Attending Clinician Unavailable Cristian SALVADOR, [place] Attending Clinician Unavailable Charlene Butt DO Attending Clinician Atul Stephens MD Attending Clinician Berna Alcantar MD Attending Clinician [phone] BERNA ALCANTAR Attending Clinician Unavailable Orlando Cannon MD Attending Clinician [id number] Admitting Clinician Unavailable Jose Kim Rahil Admitting Clinician Unavailable Berna Alcantar MD Admitting Clinician [phone] BERNA ALCANTAR Admitting Clinician Unavailable Payers Payer Name Policy Type Policy Number Effective Date Expiration Date S cindy [facility] [id number] Problems Condition Condition Condition Status Onset Resolution Last Treating Co mments Source Name Details Category Date Date Treatment Clinician Date Acute on Acute on Disease Active Unive rs chronic chronic 9-11 ity of combined combined 00:00: [place] systolic systolic 00 Medica l and and [...] diabetes 07-21 ity of mellitus mellitus 00:00: [place] without without 00 Medical complicati complicati Br [...] Added automatic ally from request for surgery [id number] CHF CHF Problem Active Common (congestiv (congestiv Sp anabela e heart e heart - [facility] failure) failure) [facility] Hypertensi Hypertensi Problem Active C ommon on on Spirit - [facility] Diabetes Diabetes Problem Active Commo n type 2, type 2, Spirit controlled controlled - [facility] COPD COPD Problem Active Common (chronic (chronic Spirit obstructiv obstructiv - [facility] e [facility] pulmonary pulmonary Sturgis s disease) disease) [facility] Nicotine Nicotine Problem Active Commo n dependence dependence Sp anabela - [facility] Seasonal Seasonal Problem Active Commo n allergic allergic Spirit rhinitis rhinitis - [facility] Adjustment Adjustment Problem Active C ommon disorder disorder Spirit with with - [facility] depressed depressed [facility] Chronic Chronic Problem Active Common fatigue fatigue Spirit - [facility] Type 2 Type 2 Problem Active Common [...] Active Univers ALLERGIE Class ity of S [facility] Social History Social Habit Start Date Stop Date Quantity Comments Source History of Cigarette Smoker Universi ty of tobacco use [place] [facility] History SDOH Food 2022-07-29 2022-07-29 1 Univers ity of Worry 00:00:00 00:00:00 [place] [facility] History SDOH Food 2022-07-29 2022-07-29 1 Univers ity of Scarcity 00:00:00 00:00:00 [place] [facility] History SDOH 2022-07-29 2022-07-29 2 University o f Transport Med 00:00:00 00:00:00 [place] Medic al Branch History [facility] 2022-07-29 2022-07-29 2 University o f Transport Non-Med 00:00:00 00:00:00 [facility] edical Branch Tobacco use and 2022-07-21 2022-07-21 Smokeless tobacco Un iversity of exposure 00:00:00 00:00:00 non-user [facility] Exposure to 2022-07-10 2022-07-20 Not sure University of SARS-CoV-2 00:00:00 10:56:00 [facility] (event) Branch Sex Ass[birth year] At [birth year] Universit y of 00:00:00 00:00:00 [facility] Smoking Status Start Date Stop Date Source Smokes tobacco daily 2022-07-21 00:00:00 Univers ity of [facility] Medications Ordered Filled Start Stop Current Ordering [...] Until Discontinu ed, Routine furosemide 2021-0 Yes [id number] 40mg Take 1 Univers 40 mg 9-18 tablet by ity of tablet 00:00: mouth in [place] 00 the Medical morning Branch and 1 tablet in the evening. metoprolol 2021-0 Yes [id number] 50mg Take 1 Univers succinate 9-18 tablet by ity o f XL 50 mg 24 00:00: mouth in [place] hr tablet 00 the Medical morning. Branch spironolact 2021-0 Yes [id number] 25mg Take 1 Univers one 25 mg 9-18 tablet by ity o f tablet 00:00: mouth in [place] 00 the Medical morning. Branch furosemide 2021-0 Yes [id number] 40mg Take 1 Univers 40 mg 9-18 tablet by ity of tablet 00:00: mouth in [place] 00 the Medical morning Branch and 1 tablet in the evening. metoprolol 2021-0 Yes [id number] 50mg Take 1 Univers succinate 9-18 tablet by ity o f XL 50 mg 24 00:00: mouth [place] hr tablet 00 the Medical morning. Branch spironolact 2021-0 Yes [id number] 25mg Take 1 Univers one 25 mg 9-18 tablet by ity o f tablet 00:00: mouth in [place] 00 the Medical morning. Branch furosemide 2021-0 Yes [id number] 40mg Take 1 Univers 40 mg 9-18 tablet by ity of tablet 00:00: mouth in [place] 00 the Medical morning Branch and 1 tablet in the evening. metoprolol 2021-0 Yes [id number] 50mg Take 1 Univers succinate 9-18 tablet by ity o f XL 50 mg 24 00:00: mouth in [place] hr tablet 00 the Medical morning. Branch spironolact 2021-0 Yes [id number] 25mg Take 1 Univers one 25 mg 9-18 tablet by ity o f tablet 00:00: mouth in [place] 00 the Medical morning. Branch aspirin 2021-0 Yes 81mg Take 81 mg Univ ers (ASPIR-LOW 9-17 by mouth 2 ity of ORAL) 21:46: (two) [place] 23 times Medical daily. Branch insulin 0 Yes 15U inject 15 Unive rs glargine,hu 9-17 Units ity of m.rec.anlog 21:46: under the [place] (LANTUS 23 skin. Medical U-100 Branch INSULIN SC) losartan 25 0 Yes 1{tbl} Take 1 Un rita mg tablet 9-17 tablet by ity o f 21:46: mouth in [place] 23 the Medical morning. Branch montelukast 0 Yes 1{tbl} Take 1 Un rita 10 mg 9-17 tablet by ity of tablet 21:46: mouth in [place] 23 the Medical morning. Branch albuterol Yes 2{puff} Take 2 Uni vers sulfate 9-17 Puffs by ity of (PROAIR 21:46: mouth as [place] RESPICLICK) 23 needed for Me dical 90 Cough. Branch mcg/actuati Cough, on AePB wheezing aspirin 0 Yes 81mg Take 81 mg Univ ers (ASPIR-LOW 9-17 by mouth 2 ity of ORAL) 21:46: (two) [place] [id number] times Medical daily. Branch insulin Yes 15U inject 15 Unive rs glargine,hu 9-17 Units ity of m.rec.anlog 21:46: under the [place] (LANTUS 23 skin. Medical U-100 Branch INSULIN SC) losartan 25 0 Yes 1{tbl} Take 1 Un rita mg tablet 9-17 tablet by ity o f 21:46: mouth in [place] 23 the Medical morning. Branch montelukast 0 Yes 1{tbl} Take 1 Un rita 10 mg 9-17 tablet by ity of tablet 21:46: mouth in [place] 23 the Medical morning. Branch albuterol 0 Yes 2{puff} Take 2 Uni vers sulfate 9-17 Puffs by ity of (PROAIR 21:46: mouth as [place] RESPICLICK) 23 needed for Me dical 90 Cough. Branch mcg/actuati Cough, on AePB wheezing aspirin 2021-0 Yes 81mg Take 81 mg Univ ers (ASPIR-LOW 9-17 by mouth 2 ity of ORAL) 21:46: (two) [place] 23 times Medical daily. Branch insulin 2022-0 Yes 15U inject 15 Unive rs glargine,hu 9-17 Units ity of m.rec.anlog 21:46: under the [place] (LANTUS 23 skin. Medical U-100 Branch INSULIN SC) losartan 25 Yes 1{tbl} Take 1 Un rita mg tablet 9-17 tablet by ity o f 21:46: mouth in [place] 23 the Medical morning. Branch montelukast Yes 1{tbl} Take 1 Un rita 10 mg 9-17 tablet by ity of tablet 21:46: mouth in [place] 23 the Medical morning. Branch albuterol Yes 2{puff} Take 2 Uni vers sulfate 9-17 Puffs by ity of (PROAIR 21:46: mouth as [place] RESPICLICK) 23 needed for Me dical 90 [...] Branch 07/26/22 at 2030, Routine atorvastati Yes [id number] 40mg Take 1 Univers n 40 mg 9-17 tablet by ity of tablet 00:00: mouth at [place] 00 bedtime. Medical Branch apixaban Yes 1358 5mg Take 1 Univers (ELIQUIS) 5 9-17 tablet by ity of mg tablet 00:00: [place] 00 the Medical morning Branch and 1 tablet in the evening. Indication s: atrial fibrillati on atorvastati Yes [id number] 40mg Take 1 Univers n 40 mg 9-17 tablet by ity of tablet 00:00: mouth at [place] 00 bedtime. Medical Branch apixaban Yes 1358 5mg Take 1 Univers (ELIQUIS) 5 9-17 tablet by ity of mg tablet 00:00: [place] 00 the Medical morning Branch and 1 tablet in the evening. Indication s: atrial fibrillati on atorvastati Yes [id number] 40mg Take 1 Univers n 40 mg 9-17 tablet by ity of tablet 00:00: mouth at [place] 00 bedtime. [facility] Branch apixaban Yes 1358 5mg Take 1 [...] ed insulin 2021- No 15U 15 Units, [facility] ers glargine 07-26 Subcutaneo ity of (LANTUS 14:00: 04:46 us, DAILY, [place] as U-100) 00 :24 First dose Medical injection (after Branch 15 Units last modificati on) on Fri07/26/22 at 0900, Until Discontinu ed KCL No 20meq 20 mEq, Univers (KLOR-CON 07-26 Oral, ity of M20) tablet 13:30: 14:05 ONCE, 1 [place] 20 mEq 00 :00 dose, On Medical Fri Branch 07/26/22 at 0830, Routine Sliding Yes Subcutaneo Univ ers Scale 07-26 us, Q6H, ity of Insulin - 01:00: First dose [place] Lispro 00 (after Medical (HumaLOG) + last Branch Fsbg modificati Testing on) on [facility] Branch 07/25/22 at 2000, Until Discontinu ed, Routine Sliding No Subcutaneo Uni vers Scale 07-26 us, Q6H, ity of Insulin - 01:00: 04:46 First dose [place] Lispro 00 :24 (after Medical (HumaLOG) + last Branch Fsbg modificati Testing on) on [facility] Branch 07/25/22 at 2000, Until Discontinu ed, Routine magnesium No 2g 2 g, IV [facility] ers sulfate in 07-26 Piggyback, it y of water 2 00:45: 03:11 Administer [place] as gram/50 mL 00 :00 over 60 Medica l (4 %) Minutes, Branch infusion 2 ONCE, 1 g dose, On [facility] Branch 07/25/22 at 1945, Routine metOLazone 2021- No 2.5mg 2.5 mg, Un rita (ZAROXOLYN) 07-25 Oral, ity of tablet 2.5 16:00: 15:24 DAILY, [place] mg 00 :46 First dose Medical on [place] Branch 07/25/22 at 1100, Until Discontinu ed, Routine furosemide 2022-0 2022- No 60mg 60 mg, IV U nivers [...] 3 (after Units last modificati on) on [place] 07/25/22 at 0800, Until Discontinu ed, Routine insulin 2021- No 3U 3 Units, Unive rs lispro 07-25 Subcutaneo ity of (human) 13:00: 04:46 us, TID [place] (HumaLOG 00 :24 MEALS, Medical U-100) First dose Branch injection 3 (after Units last modificati on) on [place]bi 07/25/22 at 0800, Until Discontinu ed, Routine Sliding [...] Oral, ity of XL (TOPROL 14:15: DAILY, [place] XL) tablet 00 First dose Med ical 50 mg on Fri Branch 07/24/22 at 0915, Until Discontinu ed, Routine metoprolol 2021- No 50mg 50 mg, Univ ers succinate 07-24 Oral, ity of XL (TOPROL 14:15: 04:46 DAILY, [facility] s XL) tablet 00 [...]
heparin Yes 1000U/h 1,000 Univer s 25,000 -14 Units/hr ity of Units/250 05:29: (10 [place] [...] Rang e, Dosing and Testing: &nbs p;[facility], AND [facility] ONLY - aPTT < [...] Rang e, Dosing and Testing: &nbs p;FOR [facility], [facility], AND C CAMPUSES ONLY - aPTT < [...] 53 Starting Medi jose tablet 1 on [facility] tablet 07/23/22 at 1031, Until Discontinu ed, Routine, Pain (scale 4-6) HYDROcodone 2021- No 1{tbl} 1 tablet, Univers -acetaminop 07-2318 Oral, ity of hen (NORCO 15:31: 04:46 Q6HPRN, [place] 5) 5-325 mg 53 :24 Starting Medi jose tablet 1 on [facility] tablet 07/23/22 at 1031, Until 07/27/22 [...] [place] mg 00 First dose Medical on [facility] 07/22/22 at 0900, Until Discontinu ed, Routine montelukast Yes 10mg 10 mg, Univ ers (SINGULAIR) 07-22 Oral, ity of tablet 10 14:00: DAILY, [place] mg 00 First dose Medical on [facility] 07/22/22 at 0900, Until Discontinu ed, Routine spironolact 2021- No 25mg 25 mg, Uni vers one 07-22 Oral, ity of (ALDACTONE) 14:00: 04:46 DAILY, [place] as tablet 25 00 :24 First dose Medi jose mg on [facility] 07/22/22 at 0900, Until Discontinu ed, Routine aspirin No 81mg 81 mg, Univers chewable 07-22 Oral, ity of tablet 81 14:00: 04:46 DAILY, [place] mg 00 :24 First dose Medical on [facility] 07/22/22 at 0900, Until Discontinu ed, Routine losartan 2021- No 25mg 25 mg, Univer s (COZAAR) 07-22 Oral, ity of tablet 25 14:00: 04:46 DAILY, [place] mg 00 :24 First dose Medical on [facility] 07/22/22 at 0900, Until Discontinu ed, Routine montelukast 2021- No 10mg 10 mg, Uni vers (SINGULAIR) 07-22 Oral, ity of tablet 10 14:00: 04:46 DAILY, [place] mg 00 :24 First dose Medical on [facility] 07/22/22 at 0900, Until Discontinu ed, Routine metoprolol 2021- No 50mg 50 mg, Univ ers tartrate 07-22 Oral, BID ity o f (LOPRESSOR) 13:00: 14:10 MEALS, [place] as tablet 50 00 :14 First dose Medi jose mg on [facility] 07/22/22 at 0800, Until Discontinu ed, Routine atorvastati Yes 40mg 40 mg, Univ ers n (LIPITOR) 07-22 Oral, QHS, it y of tablet 40 02:00: First dose [place] mg 00 on [facility] 07/21/22 at Branch 2100, Until Discontinu ed, Routine atorvastati 2021- No 40mg 40 mg, Uni vers n (LIPITOR) 07-22 Oral, QHS, i ty of tablet 40 02:00: 04:46 First dose [place] mg 00 :24 on [facility] 07/21/22 at Branch 2100, Until Discontinu ed, Routine morpHINE (2 2021- No 2mg 2 mg, Slow Univers mg/mL) 07-22 IV Push, ity of injection 2 01:29: 15:32 Q6HPRN, [place] mg 07 :[address] [facility] 07/21/22 at 2029, Until Tu07/23/22 at 1032, Routine, Chest pain furosemide 2021- No 20mg 20 mg, IV U nivers (LASIX) 07-22 Push, ity of injection 01:00: 05:27 Q12H, [place] 20 mg 00 :42 First dose Medical (after Branch last reorder) on [facility] 07/21/22 at 2000, Until Discontinu ed, LORI enoxaparin 2021- No 1mg/kg 100 mg Un rita (LOVENOX) 07-22 (rounded ity o f injection 01:00: 05:30 [place] 98.5 [place] 100 mg 00 :31 mg = 1 Medical mg/kg Branch ?98.5 kg), Subcutaneo us, Q12H, First dose (after last modificati on) on [facility] 07/21/22 at 2000, Until Discontinu ed, Routine sulfur 2021- No [id number] 5mL 5 mL, Unive rs hexafluorid 07-21 Intravenou i ty of e microsphr 15:45: 15:45 s, ONCE, 1 [place] (LUMASON) 00 :00 dose, On Medica l injection 5 [place] mL 07/21/22 at 1045, Routine
bioinformatics team member approving Restricted medication : ANA LUISA GRIMM insulin 2021- No 10U 10 Units, Univ ers glargine 07-21 Subcutaneo ity of (LANTUS 14:00: 14:09 us, DAILY, [place] as U-100) 00 :20 First dose Medical injection on [facility] Branch 10 Units 07/21/22 at 0900, Until Discontinu ed Sliding 2021- No Subcutaneo Uni vers Scale 07-2115 us, TID ity of Insulin - 13:00: 02:33 MEALS+HS, [place] Lispro 00 :10 First dose Medical (HumaLOG) + (after Branch Fsbg last Testing modificati on) on 07/21/22 at 0800, Until Discontinu ed, Routine Sliding 2021- No Subcutaneo Uni vers Scale 07-21 us, Q4H, ity of Insulin - 00:00: 06:27 First dose [place] Lispro 00 :26 on [facility] Medical (HumaLOG) + 07/20/22 at Br anch Fsbg 1900, Testing Until Discontinu ed, Routine glucagon Yes 1mg 1 mg, Univers (GLUCAGEN 07-20 Intramuscu ity of DIAGNOSTIC 23:48: lar, PRN, [place] KIT) 16 Starting Medical injection 1 on [facility] 07/20/22 at 1848, Until Discontinu ed, LORI, [...] status changes. metoprolol No 25mg 25 mg, [facility] ers tartrate 07-20 Oral, Q6H, ity of [...] Branch 07/20/22 at 1115, LORI Trelegy Trelegy 0 2020- No Meghana 1 puff Com mon Ellipta Ellipta 2-12 06-11 [place] Spirit 00:00: 00:00 - [facility] 00 :00 [facility] HydrOXYzine HydrOXYzine Yes Meghana 1 tablet Common HCl HCl 7 [place] as needed Spirit 00:00: - [facility] 00 [facility] Ozempic Ozempic 2020- No Meghana 0.5 mg Com mon 05-11 0824 [place] Spirit 00:00: 00:00 - CHI 00 :00 [facility] Januvia Januvia Yes Meghana as Common 1- [place] directed Spirit 00:00: - [facility]I 00 [facility] ProAir ProAir Yes Meghana 2 puffs as Comm on RespiClick RespiClick [place] needed [facility] Muscoda 3 Musc[place] 3 Yes Meghana 1 capsule Com mon [place] [facility] Montelukast Montelukast Yes Meghana 1 tablet Common Sodium Sodium [place] in the [facility] evening [facility] Lipitor Lipitor Yes Meghana 1 tablet Comm on [place] [facility] Losartan Losartan Yes Meghana 1 tablet Co mmon Potassium Potassium [place] Spir it [facility] Metoprolol Metoprolol Yes Meghana 1 tablet Common Tartrate Tartrate [place] with food S pirit [facility] Metformin Metformin Yes Meghana 1 tablet Common HCl HCl [place] with a [facility] meal [facility] Immunizations Ordered Immunization Filled Immunization Date Status Commen ts Source Name Name FLUZONE HIGH DOSE FLUZONE HIGH DOSE 2019-09-14 Completed [facility] Spirit OVER 65 OVER 65 00:00:00 [facility] Vital Signs Vital Name Observation Time Observation Value Comments Source Systolic blood 2022-07-28 01:43:00 99 mm[Hg] Univer sity of pressure [facility] Diastolic blood 2022-07-28 01:43:00 58 mm[Hg] Unive rsity of pressure [facility] Heart rate 2022-07-28 01:40:00 97 /min [facility] Body temperature 2022-07-28 01:40:00 36.56 Melvi [facility] Respiratory rate 2022-07-28 01:40:00 18 /min [facility] Oxygen saturation in 2022-07-28 01:40:00 90 /min [facility] blood by [facility] Pulse oximetry Branch Body height 2022-07-26 17:49:00 172.7 cm [facility] Body weight 2022-07-26 17:49:00 96.163 kg [facility] BMI 2022-07-26 17:49:00 32.23 kg/m2 [facility] Systolic blood 2022-07-26 23:31:00 102 mm[Hg] Univer sity of pressure [facility] Diastolic blood 2022-07-26 23:31:00 59 mm[Hg] [facility] Heart rate 2022-07-26 23:31:00 85 /min [facility] Body temperature 2022-07-26 23:31:00 36.56 Mel[place] [facility] Respiratory rate 2022-07-26 23:24:00 19 /min [facility] Oxygen saturation in 2022-07-26 23:24:00 93 /min [facility] Arterial blood by [facility] Pulse oximetry Branch Body height 2022-07-26 17:49:00 172.7 cm [facility] Body weight 2022-07-26 17:49:00 96.163 kg [facility] BMI 2022-07-26 17:49:00 32.23 kg/m2 [facility] Procedures Procedure Date / Time Performing Clinician Source Performed POCT GLUCOSE (AUTOMATED) 2022-07-27 16:45:00 Berna Alcantar [facility] POCT GLUCOSE (AUTOMATED) 2022-07-27 16:45:00 Berna Alcantar [facility] MAGNESIUM 2022-07-27 10:46:00 Flora Fox [facility] BASIC METABOLIC PANEL (NA, 2022-07-27 10:46:00 Flora Fox [facility] K, CL, CO2, GLUCOSE, BUN, Medica l Branch CREATININE, CA) N-TERMINAL PRO-BNP 2022-07-27 10:46:00 Flora Fox [facility] MAGNESIUM 2022-07-27 10:46:00 Colt Foxssica [facility] BASIC METABOLIC PANEL (NA, 2022-07-27 10:46:00 [facility], [facility], CO2, GLUCOSE, BUN, Medica l Branch CREATININE, CA) N-TERMINAL PRO-BNP 2022-07-27 10:46:00 [facility] POCT GLUCOSE (AUTOMATED) 2022-07-27 10:38:00 Berna Alcantar Uni versity of [facility] POCT GLUCOSE (AUTOMATED) 2022-07-27 10:38:00 KhKeo fernandezm Uni versity of [facility] POCT GLUCOSE (AUTOMATED) 2022-07-27 04:51:00 KhKeo fernandezm Uni versity of [facility] POCT GLUCOSE (AUTOMATED) 2022-07-27 04:51:00 Keo Alcantarm Uni versity of [facility] POCT GLUCOSE (AUTOMATED) 2022-07-27 01:10:00 Keo Alcantarm Uni versity of [facility] POCT GLUCOSE (AUTOMATED) 2022-07-27 01:10:00 KhKeo fernandezm Uni versity of [facility] POCT GLUCOSE (AUTOMATED) 2022-07-26 23:37:00 Berna Alcantar Uni versity of [facility] POCT GLUCOSE (AUTOMATED) 2022-07-26 23:37:00 Berna Alcantar Uni versity of [facility] ACTIVATED PARTIAL THRMPLAS 2022-07-26 23:10:00 [facility] ACTIVATED PARTIAL THRMPLAS 2022-07-26 23:10:00 Evelio Soni [facility] CARDIAC CATHETERIZATION 2022-07-26 21:16:04 [facility] CARDIAC CATHETERIZATION 2022-07-26 21:16:04 [facility] CARDIAC CATHETERIZATION 2022-07-26 21:16:04 [facility] CARDIAC CATHETERIZATION 2022-07-26 21:16:04 [facility] CARDIAC CATHETERIZATION 2022-07-26 21:16:04 [facility] ersity of [facility] CARDIAC CATHETERIZATION 2022-07-26 21:16:04 [facility] CARDIAC CATHETERIZATION 2022-07-26 21:16:04 [facility] ersity of [facility] CARDIAC CATHETERIZATION 2022-07-26 21:16:04 [facility] ersity of [facility] CATH PROCEDURE LOG 2022-07-26 20:55:[address] [facility] y of [facility] CATH PROCEDURE LOG 2022-07-26 20:55:04 [facility] POCT GLUCOSE (AUTOMATED) 2022-07-26 16:20:00 Berna Alcantar Uni versity of [facility] POCT GLUCOSE (AUTOMATED) 2022-07-26 16:20:00 Berna Alcantar Uni versity of [facility] POCT GLUCOSE (AUTOMATED) 2022-07-26 12:30:00 Berna Alcantar Uni versity of [facility] POCT GLUCOSE (AUTOMATED) 2022-07-26 12:30:00 Berna Alcantar Uni versity of [facility] POCT GLUCOSE (AUTOMATED) 2022-07-26 11:08:00 Berna Alcantar Uni versity of [facility] POCT GLUCOSE (AUTOMATED) 2022-07-26 11:08:00 Berna Alcantar Uni versity of [facility] POCT GLUCOSE (AUTOMATED) 2022-07-26 08:52:00 Berna Alcantar Uni versity of [facility] POCT GLUCOSE (AUTOMATED) 2022-07-26 08:52:00 Berna Alcantar Uni versity of [facility] MAGNESIUM 2022-07-26 05:35:00 [place], [facility] BASIC METABOLIC PANEL (NA, 2022-07-26 05:35:00 Tob[facility] K, CL, CO2, GLUCOSE, BUN, Medica l Branch CREATININE, CA) ACTIVATED PARTIAL THRMPLAS 2022-07-26 05:35:00 Evelio Soni [facility] EXTRA TUBE LAV 2022-07-26 05:35:00 [place] [facility] MAGNESIUM 2022-07-26 05:35:00 Tobias [facility] BASIC METABOLIC PANEL (NA, 2022-07-26 05:35:00 Tobias [facility] K, CL, CO2, GLUCOSE, BUN, Medica l Branch CREATININE, CA) ACTIVATED PARTIAL THRMPLAS 2022-07-26 05:35:00 [facility] 2022-07-26 05:35:00 [place] [facility] POCT GLUCOSE (AUTOMATED) 2022-07-26 05:20:00 Berna [facility]cantar [facility] PO[facility] GLU[facility]SE (AUTOMATED) 2022-07-26 05:20:00 Berna Alcantar [facility] POCT GLUCOSE (AUTOMATED) 2022-07-26 01:45:00 Berna Alcantar [facility] [facility] 2022-07-26 01:45:00 Berna Alcantar [facility] MAGNESIUM 2022-07-25 22:15:00 [facility] BASIC METABOLIC PANEL (NA, 2022-07-25 22:15:00 [facility] K, CL, CO2, GLUCOSE, BUN, Medica l Branch CREATININE, CA) ACTIVATED PARTIAL THRMPLAS 2022-07-25 22:15:00 Evelio Soni [facility] MAGNESIUM 2022-07-25 22:15:00 [facility] BASIC METABOLIC PANEL (NA, 2022-07-25 22:15:00 [facility] K, CL, CO2, GLUCOSE, BUN, Medica l Branch CREATININE, CA) ACTIVATED PARTIAL THRMPLAS 2022-07-25 22:15:00 Evelio Soni niversalberto [facility] POCT GLUCOSE (AUTOMATED) 2022-07-25 21:22:00 Berna Alcantar Uni versity [facility] POCT GLUCOSE (AUTOMATED) 2022-07-25 21:22:00 Berna Alcantar Uni versity of [facility] POCT GLUCOSE (AUTOMATED) 2022-07-25 20:46:00 Berna Alcantar Uni versity of [facility] POCT GLUCOSE (AUTOMATED) 2022-07-25 20:46:00 Berna Alcantar Uni versity of [facility] POCT GLUCOSE (AUTOMATED) 2022-07-25 17:09:00 Berna Alcantar Uni versity of [facility] POCT GLUCOSE (AUTOMATED) 2022-07-25 17:09:00 Berna Alcantar Uni versity [facility] HB ECG ROUTINE & RHYTHM 2022-07-25 14:53:13 Berna Collado Uni versity [facility] ACTIVATED PARTIAL THRMPLAS 2022-07-25 14:53:00 Evelio Snoi niversalberto [facility] ACTIVATED PARTIAL THRMPLAS 2022-07-25 14:53:00 Evelio Soniersalberto [facility] POCT GLUCOSE (AUTOMATED) 2022-07-25 13:12:00 Berna Alcantar Uni versity of [facility] POCT GLUCOSE (AUTOMATED) 2022-07-25 13:12:00 Berna Alcantar Uni versity of [facility] MAGNESIUM 2022-07-25 11:36:00 [facility] BASIC METABOLIC PANEL (NA, 2022-07-25 11:36:00 [facility] K, CL, CO2, GLUCOSE, BUN, Medica l Branch CREATININE, CA) CBC WITH DIFF 2022-07-25 11:36:00 [facility] MAGNESIUM 2022-07-25 11:36:00 [facility] BASIC METABOLIC PANEL (NA, 2022-07-25 11:36:00 [facility] K, CL, CO2, GLUCOSE, BUN, Medica l Branch CREATININE, CA) CBC WITH DIFF 2022-07-25 11:36:00 [facility] ACTIVATED PARTIAL THRMPLAS 2022-07-25 05:15:00 Evelio Soni [facility] ACTIVATED PARTIAL THRMPLAS 2022-07-25 05:15:00 Evelio Soni [facility] POCT GLUCOSE (AUTOMATED) 2022-07-25 01:58:00 [facility] 2022-07-25 01:58:00 Berna Alcantar [facility] MAGNESIUM 2022-07-24 22:34:00 [facility] BASIC METABOLIC PANEL (NA, 2022-07-24 22:34:00 [facility] K, CL, CO2, GLUCOSE, BUN, Medica l Branch CREATININE, CA) ACTIVATED PARTIAL THRMPLAS 2022-07-24 22:34:00 Evelio Soni [facility] MAGNESIUM 2022-07-24 22:34:00 [facility] BASIC METABOLIC PANEL (NA, 2022-07-24 22:34:00 [facility] K, CL, CO2, GLUCOSE, BUN, Medica l Branch CREATININE, CA) ACTIVATED PARTIAL THRMPLAS 2022-07-24 22:34:00 Evelio Soni [facility] POCT GLUCOSE (AUTOMATED) 2022-07-24 20:43:00 Berna Alcantar [facility] POCT GLUCOSE (AUTOMATED) 2022-07-24 20:43:00 Berna Alcantar Uni versity of [facility] POCT GLUCOSE (AUTOMATED) 2022-07-24 17:11:00 Berna Alcantar Uni versity of [facility] POCT GLUCOSE (AUTOMATED) 2022-07-24 17:11:00 Berna Alcantar Uni versity of [facility] POCT GLUCOSE (AUTOMATED) 2022-07-24 14:11:00 Berna Alcantar Uni versity of [facility] POCT GLUCOSE (AUTOMATED) 2022-07-24 14:11:00 [facility] ACTIVATED PARTIAL THRMPLAS 2022-07-24 11:37:00 [facility] ACTIVATED PARTIAL THRMPLAS 2022-07-24 11:37:00 Evelio Soni [facility] MAGNESIUM 2022-07-24 05:51:00 Evelio Soni [facility] BASIC METABOLIC PANEL (NA, 2022-07-24 05:51:00 Evelio [facility] K, CL, CO2, GLUCOSE, BUN, Medica l Branch CREATININE, CA) PROTHROMBIN TIME / INR 2022-07-24 05:51:00 Evelio Soni [facility] ACTIVATED PARTIAL THRMPLAS 2022-07-24 05:51:00 [facility]io [facility] MAGNESIUM 2022-07-24 05:51:00 Evelio Soni [facility] BASIC METABOLIC PANEL (NA, 2022-07-24 05:51:00 Evelio Soni [facility] K, CL, CO2, GLUCOSE, BUN, Medica l Branch CREATININE, CA) PROTHROMBIN TIME / INR 2022-07-24 05:51:00 [facility]RMPLAS 2022-07-24 05:51:00 Evelio Soni [facility] POCT GLUCOSE (AUTOMATED) 2022-07-24 01:53:00 Atul Stephens Rafaela [facility] POCT GLUCOSE (AUTOMATED) 2022-07-24 01:53:00 Atul Stephens [facility] 2022-07-23 21:31:00 Atul Stephens [facility] PO[facility]UCOSE (AUTOMATED) 2022-07-23 21:31:00 Atul Stephens [facility] PO[facility]UCOSE (AUTOMATED) 2022-07-23 17:08:00 Atul Stephens [facility] PO[facility] GLUCOSE (AUTOMATED) 2022-07-23 17:08:00 Atul Stephens Rafaela [facility] POCT GLUCOSE (AUTOMATED) 2022-07-23 12:46:00 Atul Stephens Rafaela [facility] POCT GLUCOSE (AUTOMATED) 2022-07-23 12:46:00 Atul Stephens Rafaela [facility] MAGNESIUM 2022-07-23 09:15:00 [facility]OLIC PANEL (NA, 2022-07-23 09:15:00 [facility], CL, CO2, GLUCOSE, BUN, Medica l Branch CREATININE, CA) CBC WITH DIFF 2022-07-23 09:15:00 [facility] N-[facility]MINAL PRO-BNP 2022-07-23 09:15:00 Goerge Vizcaino [facility] MAGNESIUM 2022-07-23 09:15:00 George Vizcaino [facility] BASIC METABOLIC PANEL (NA, 2022-07-23 09:15:00 [facility] K, CL, CO2, GLUCOSE, BUN, Medica l Branch CREATININE, CA) CBC WITH DIFF 2022-07-23 09:15:00 [facility] N-[facility]MINAL PRO-BNP 2022-07-23 09:15:00 George Vizcaino [facility] POCT GLUCOSE (AUTOMATED) 2022-07-23 02:12:00 Atul Stephens [facility] POCT GLUCOSE (AUTOMATED) 2022-07-23 02:12:00 Atul Stephens Rafaela [facility] POCT GLUCOSE (AUTOMATED) 2022-07-22 21:12:00 Atul Stephens Rafaela [facility] POCT GLUCOSE (AUTOMATED) 2022-07-22 21:12:00 Atul Stephens [facility] POCT GLUCOSE (AUTOMATED) 2022-07-22 16:30:00 Atul Stephens Rafaela [facility] POCT GLUCOSE (AUTOMATED) 2022-07-22 16:30:00 Atul Stephens [facility] POCT GLUCOSE (AUTOMATED) 2022-07-22 12:51:00 Atul Stephens [facility] POCT GLUCOSE (AUTOMATED) 2022-07-22 12:51:00 Atul Stephens [facility] PHOSPHORUS 2022-07-22 08:19:00 Atul Stephens [facility] MAGNESIUM 2022-07-22 08:19:00 [facility] HEPATIC FUNCTION PANEL 2022-07-22 08:19:00 Atul Stephens [facility] ([id number]) (ALB,T.PRO,BILI Medical Branch T,BU/BC,ALT,AST,ALK PHOS) BASIC METABOLIC PANEL (NA, 2022-07-22 08:19:00 Atul Stephens [facility] K, CL, CO2, GLUCOSE, BUN, Medica l Branch CREATININE, CA) CBC WITH DIFF 2022-07-22 08:19:00 Atul Stephens [facility] N-TERMINAL PRO-BNP 2022-07-22 08:19:00 Atul Stephens [facility] PHOSPHORUS 2022-07-22 08:19:00 Atul Stephens [facility] MAGNESIUM 2022-07-22 08:19:00 [facility] HEPATIC FUNCTION PANEL 2022-07-22 08:19:00 [id number] (ALB,T.PRO,BILI Medical Branch T,BU/BC,ALT,AST,ALK PHOS) BASIC METABOLIC PANEL (NA, 2022-07-22 08:19:00 Atul Stephens [facility] K, CL, CO2, GLUCOSE, BUN, Medica l Branch CREATININE, CA) CBC WITH DIFF 2022-07-22 08:19:00 Atul Stephens [facility] N-TERMINAL PRO-BNP 2022-07-22 08:19:00 Atul Stephens [facility] POCT GLUCOSE (AUTOMATED) 2022-07-22 01:44:00 Atul Stephens [facility] POCT GLUCOSE (AUTOMATED) 2022-07-22 01:44:00 Atul Stephens [facility] POCT GLUCOSE (AUTOMATED) 2022-07-21 21:52:00 Atul Stephens [facility] POCT GLUCOSE (AUTOMATED) 2022-07-21 21:52:00 Atul Stephens [facility] POCT GLUCOSE (AUTOMATED) 2022-07-21 16:43:00 tAul Stephens [facility] POCT GLUCOSE (AUTOMATED) 2022-07-21 16:43:00 Atul Stephens [facility] TRANSTHORACIC ECHO (TTE) 2022-07-21 15:28:00 Atlu Stephens [facility] W/ CONTRAST Medical [facility] TRANSTHORACIC ECHO (TTE) 2022-07-21 15:28:00 Atul Stephens [facility] COMPLETE W/ CONTRAST Medical [facility] POCT GLUCOSE (AUTOMATED) 2022-07-21 15:00:00 Atul Stephens [facility] POCT GLUCOSE (AUTOMATED) 2022-07-21 15:00:00 Atul Stephens [facility] POCT GLUCOSE (AUTOMATED) 2022-07-21 13:04:00 Atul Stephens [facility] POCT GLUCOSE (AUTOMATED) 2022-07-21 13:04:00 Atul Stephens [facility] MAGNESIUM 2022-07-21 09:41:00 [facility]22-07-21 09:41:00 [facility] BASIC METABOLIC PANEL (NA, 2022-07-21 09:41:00 Atul Stephens [facility] K, CL, CO2, GLUCOSE, BUN, Medica l Branch CREATININE, CA) LIPID PANEL ([id number])(TOTAL 2022-07-21 09:41:00 [facility]L [facility], [facility] TRIGLYCERIDES, HDL) CBC WITH DIFF 2022-07-21 09:41:00 Atul Stephens [facility] N-TERMINAL PRO-BNP 2022-07-21 09:41:00 Atul Stephens [facility] MAGNESIUM 2022-07-21 09:41:00 Atul Stephens [facility] TROPONIN I 2022-07-21 09:41:00 Atul Stephens [facility] BASIC METABOLIC PANEL (NA, 2022-07-21 09:41:00 Atul Stephens [facility] K, CL, CO2, GLUCOSE, BUN, Medica l Branch CREATININE, CA) LIPID PANEL (98789)(TOTAL 2022-07-21 09:41:00 Ana Luisa Grimm [facility] CHOLESTEROL, [facility] TRIGLYCERIDES, HDL) CBC WITH DIFF 2022-07-21 09:41:00 Atul Stephens [facility] N-TERMINAL PRO-BNP 2022-07-21 09:41:00 Atul Stephens [facility] POCT GLUCOSE (AUTOMATED) 2022-07-21 04:09:00 Atul Stephens [facility] POCT GLUCOSE (AUTOMATED) 2022-07-21 04:09:00 Atul Stephens [facility] BLOOD CULTURE SCREEN 2022-07-21 01:45:00 Atul Stephens [facility] BLOOD CULTURE WORKUP 2022-07-21 01:45:00 Atul Stephens [facility] GRAM POSITIVE BLOOD 2022-07-21 01:45:00 Atul Stephens [facility] PATHOGENS DNA [facility] PROBE-AEROBIC BLOOD CULTURE SCREEN 2022-07-21 01:45:00 Atul Stephens [facility] BLOOD CULTURE WORKUP 2022-07-21 01:45:00 Atul Stephens [facility] GRAM POSITIVE BLOOD 2022-07-21 01:45:00 Atul Stephens [facility] PATHOGENS DNA [facility] PROBE-AEROBIC POCT GLUCOSE (AUTOMATED) 2022-07-21 01:26:00 Atul Stephens [facility] POCT GLUCOSE (AUTOMATED) 2022-07-21 01:26:00 Atul Stephens [facility] BLOOD CULTURE SCREEN 2022-07-20 23:43:00 Atul Stephens [facility] BLOOD CULTURE SCREEN 2022-07-20 23:43:00 Atul Stephens [facility] POCT GLUCOSE (AUTOMATED) 2022-07-20 22:24:00 Atul Stephens [facility] POCT GLUCOSE (AUTOMATED) 2022-07-20 22:24:00 Atul Stephens [facility] URINALYSIS 2022-07-20 17:41:00 Charlene Butt [facility] URINALYSIS 2022-07-20 17:41:00 Charlene Butt [facility] XR CHEST 1 VW 2022-07-20 16:16:00 Charlene Butt [facility] XR CHEST 1 VW 2022-07-20 16:16:00 Charlene Butt [facility] TROPONIN I 2022-07-20 16:10:00 Charlene Butt [facility] COMP. METABOLIC PANEL 2022-07-20 16:10:00 Charlene Butt [facility] ([id number]) [facility] CBC WITH DIFF 2022-07-20 16:10:00 Charlene Butt [facility] GLYCOSYLATED HEMOGLOBIN 2022-07-20 16:10:00 Atul Stephens [facility] (A1[facility]) Medical Branch PROTHROMBIN TIME / INR 2022-07-20 16:10:00 Charlene Butt [facility] ACTIVATED PARTIAL THRMPLAS 2022-07-20 16:10:00 Saniya Butt [facility] N-TERMINAL PRO-BNP 2022-07-20 16:10:00 Charlene Butt [facility] COVID-19 (ID NOW RAPID 2022-07-20 16:10:00 Charlene Butt [facility] TESTING) Medical Branch LAB ONLY COVID 2022-07-20 16:10:00 Charlene Butt [facility] TROPONIN I 2022-07-20 16:10:00 Charlene Butt [facility] COMP. METABOLIC PANEL 2022-07-20 16:10:00 Charlene Butt [facility] ([id number]) Medical Branch CBC WITH DIFF 2022-07-20 16:10:00 Charlene Butt [facility] GLYCOSYLATED HEMOGLOBIN 2022-07-20 16:10:00 Atul Stephens [facility] (A1C) Medical Branch PROTHROMBIN TIME / INR 2022-07-20 16:10:00 Charlene Butt [facility] ACTIVATED PARTIAL THRMPLAS 2022-07-20 16:10:00 Saniya Butt [facility] N-TERMINAL PRO-BNP 2022-07-20 16:10:00 Charlene Butt [facility] COVID-19 (ID NOW RAPID 2022-07-20 16:10:00 Charlene Butt [facility] TESTING) Medical Branch LAB ONLY COVID 2022-07-20 16:10:00 Charlene Butt [facility] INTERPRETATION Medical Branch HB ECG ROUTINE & RHYTHM 2022-07-20 16:05:41 Charlene Butt [facility] HB ECG ROUTINE & RHYTHM 2022-07-20 16:05:41 Charlene Butt [facility] NOTICE OF PRIVACY 2022-07-20 15:52:39 [facility] NOTICE OF PRIVACY 2022-07-20 15:52:39 Doctor [facility] HOSPITAL ADMISSION 2022-07-20 05:01:00 Doctor Unassigned, [facility] HOSPITAL ADMISSION 2022-07-20 05:01:00 Doctor Unassigned, [facility] Name [facility] Encounters Start End Encounter Admission Attending Care Care Encounter Source Date/Time Date/Time Type Type Clinicians Facility Department ID 2022-09-03 Outpatient 3 [id number] [place] [id number] [facility] 08:24:57 [facility] [place] 2022-09-02 Outpatient 3 [id number] E[facility] REF [id number] [facility] 14:07:05 [facility] [place] 2021-12-05 [facility] [id number] [facility] 11:06:38 Meghana [address] [facility] 2022-08-15 2022-08-28 Inpatient 3 Julio ENCPL CRD [id number] [facility] 18:17:00 12:00:00 Jose [facility] [place] 2022-07-29 2022-07-29 Transition ARIANE FosterKhadar [id number] Univers 00:00:00 00:00:00 of Care [place] B[place] [id number] it y of ARSLANZA 4.2.7.2.686 [facility] [id number] [facility] 403 Branch 2022-07-20 2022-07-27 Hospital Charlene Butt 1.2.84 0.114 [id number] Univers 11:00:00 21:45:00 Encounter Atul Stephens [id number] [facility] 4.2.7.2 .686 [place] [id number] [facility] 089 Branch 2022-07-20 2022-07-27 [facility] [id number] Univers 11:00:00 21:45:00 [place] ity [facility] 2022-07-26 2022-07-26 Surgery JAMAL Cannon [id number] Univers 18:03:00 21:03:00 Orlando GORDON [id number] it y [facility] 4.2.7.2.686 Jonathan as [id number] [place] [id number] Branch 2020-04-04 2020-04-04 [facility] [id number] Common 13:00:00 13:00:[address] [facility] 2020-03-22 2020-03-22 [facility] [id number] Common 15:20:00 15:20:[address] [facility] 2019-12-22 2019-12-22 [facility] [id number] Common 10:40:00 10:40:[address] [facility] 2019-12-15 2019-12-15 [facility] [id number] Common 14:00:00 14:00:[address] [facility] 2019-09-14 2019-09-14 [facility] [id number] Common 13:20:00 13:20:[address] [facility] 2019-05-11 2019-05-11 [facility] [id number] Common 13:00:00 13:00:[address] [facility] 2018-11-11 2018-11-11 [facility] [id number] Common 13:00:00 13:00:[address] [facility] 2018-10-19 2018-10-19 [facility] [id number] Common 08:30:00 08:30:[address] [facility] 2018-04-22 2018-04-22 [facility] [id number] Common 14:00:00 14:00:00 [facility] it [facility] Results Test Description Test Time Test Comments Results Result Comments Source POCT GLUCOSE (AUTOMATED) 2022-07-27 17:05:15 Test Item Value Reference Range Interpretation Comme nts POCT GLU (test code = 4148068161) 264 mg/dL 70-110 H Lab Interpretation (test code = 69278-5) [facility]normal [facility]27 17:05:15 Test Item Value Reference Range Interpretation Comments POCT GLU (test code = 1279573057) 264 mg/dL 70-110 H Lab Interpretation (test code = Abnormal 08900-5) [facility] [id number] 15:17:32 Test Item Value Reference Range Interpretation Comments NT-proBNP (test code 1090 pg/mL See_Comment H [Autom ated = 1321774017) message] The system which generated this result transmitted reference range : <=125. The reference range was not used to interpret this result as normal/abnormal . ROSLYN (test code = ROSLYN) Biotin has been reported to cause a negative bias, interpret results relative to patient's use of biotin. Lab Interpretation Abnormal (test code = 09593-8) [facility] [id number] 15:17:32 Test Item Value Reference Range Interpretation Comments NT-proBNP (test code 1090 pg/mL See_Comment H [Autom ated = 3754943441) message] The system which generated this result transmitted reference range : <=125. The reference range was not used to interpret this result as normal/abnormal . ROSLYN (test code = ROSLYN) Biotin has been reported to cause a negative bias, interpret results relative to patient's use of biotin. Lab Interpretation Abnormal (test code = 27279-4) [facility]2022-09-17 11:45:45 Test Item Value Reference Range Interpretation Comments MAGNESIUM (test code = 8096288506) 1.9 mg/dL 1.7-2.4 Lab Interpretation (test code = Normal 38213-4) [facility] (NA, K, CL, CO2, GLUCOSE, BUN, CREATININE, CA)2022-07-27 11:45:45 Test Item Value Reference Range Interpretation Comments NA (test code = 130 mmol/L 135-145 L 9802136058) K (test code = 4.1 mmol/L 3.5-5 8833542449) CL (test code = 89 mmol/L 98-108 L 7791232065) CO2 TOTAL (test code = 37 mmol/L 23-31 H 2231199621) AGAP (test code = 2-16 1753996817) BUN (test code = 32 mg/dL 7-23 H 8998186323) GLUCOSE (test code = 180 mg/dL 70-110 H 3650039377) CREATININE (test code = 0.81 mg/dL 0.6-1.25 8187623965) CALCIUM (test code = 8.5 mg/dL 8.6-10.6 L 7005191021) eGFR (test code = mL/min/1.73m2 2428574141) ROSLYN (test code = ROSLYN) Association of [...] tests). Lab Interpretation Abnormal (test code = 95981-8) [facility]22-[facility]-17 11:45:45 Test Item Value Reference Range Interpretation Comments MAGNESIUM (test code = 3232824101) 1.9 mg/dL 1.7-2.4 Lab Interpretation (test code = Normal 64405-8) [facility] METABOLIC PANEL (NA, K, CL, CO2, GLUCOSE, BUN, CREATININE, CA)2022-07-27 11:45:45 Test Item Value Reference Range Interpretation Comments NA (test code = 130 mmol/L 135-145 L 7257333891) K (test code = 4.1 mmol/L 3.5-5 3061226815) CL (test code = 89 mmol/L 98-108 L 5163693034) CO2 TOTAL (test code = 37 mmol/L 23-31 H 4474714736) AGAP (test code = 2-16 6412922440) BUN (test code = 32 mg/dL 7-23 H 8375700047) GLUCOSE (test code = 180 mg/dL 70-110 H 9519130258) CREATININE (test code = 0.81 mg/dL 0.6-1.25 9639843651) CALCIUM (test code = 8.5 mg/dL 8.6-10.6 L 8164980319) eGFR (test code = mL/min/1.73m2 1686481497) ROSLYN (test code = ROSLYN) Association of [...] tests). Lab Interpretation Abnormal (test code = 76069-3) [facility] GLUCOSE (AUTOMATED)2022-07-27 10:39:46 Test Item Value Reference Range Interpretation Comments POCT GLU (test code = 8215768850) 198 mg/dL 70-110 H Lab Interpretation (test code = Abnormal 11511-2) [facility] GLUCOSE (AUTOMATED)2022-07-27 10:39:46 Test Item Value Reference Range Interpretation Comments POCT GLU (test code = 2189184769) 198 mg/dL 70-110 H Lab Interpretation (test code = Abnormal 07860-3) [facility] GLUCOSE (AUTOMATED)2022-07-27 04:52:50 Test Item Value Reference Range Interpretation Comments POCT GLU (test code = 0065631046) 213 mg/dL 70-110 H Lab Interpretation (test code = Abnormal 71220-8) [facility] GLUCOSE (AUTOMATED)2022-07-27 04:52:50 Test Item Value Reference Range Interpretation Comments POCT GLU (test code = 0770264634) 213 mg/dL 70-110 H Lab Interpretation (test code = Abnormal 55171-7) [facility] GLUCOSE (AUTOMATED)2022-07-27 01:10:58 Test Item Value Reference Range Interpretation Comments POCT GLU (test code = 3493195978) 284 mg/dL 70-110 H Lab Interpretation (test code = Abnormal 58213-4) [facility] GLUCOSE (AUTOMATED)2022-07-27 01:10:58 Test Item Value Reference Range Interpretation Comments POCT GLU (test code = 7690521281) 284 mg/dL 70-110 H Lab Interpretation (test code = Abnormal 62168-4) [facility] GLUCOSE (AUTOMATED)2022-07-26 23:39:10 Test Item Value Reference Range Interpretation Comments POCT GLU (test code = 1062146644) 199 mg/dL 70-110 H Lab Interpretation (test code = Abnormal 48459-0) [facility] GLUCOSE (AUTOMATED)2022-07-26 23:39:10 Test Item Value Reference Range Interpretation Comments POCT GLU (test code = 1854403925) 199 mg/dL 70-110 H Lab Interpretation (test code = Abnormal 24344-9) [facility]for use with [facility] Infusion)2022-07-26 23:32:33 Test Item Value Reference Range Interpretation Comments APTT Patient (test code = See_Comment [ Automated message] 3173-2) The system SANDOW generated this result transmitted ref erence range: 26 - 36 Seconds. The re ference range was not u sed to interpret this result as normal/abnor mal. Lab Interpretation (test Normal code = 39812-4) [facility] (for use with Heparin Infusion)2022-07-26 23:32:33 Test Item Value Reference Range Interpretation Comments APTT Patient (test code = See_Comment [ Automated message] 3173-2) The system SANDOW generated this result transmitted ref erence range: 26 - 36 Seconds. The re ference range was not u sed to interpret this result as normal/abnor mal. Lab Interpretation (test Normal code = 64865-0) [facility] GLUCOSE (AUTOMATED)2022-07-26 16:22:25 Test Item Value Reference Range Interpretation Comments POCT GLU (test code = 0835538198) 167 mg/dL 70-110 H Lab Interpretation (test code = Abnormal 15687-2) [facility] GLUCOSE (AUTOMATED)2022-07-26 16:22:25 Test Item Value Reference Range Interpretation Comments POCT GLU (test code = 5848706449) 167 mg/dL 70-110 H Lab Interpretation (test code = Abnormal 18923-6) [facility] GLUCOSE (AUTOMATED)2022-07-26 12:31:04 Test Item Value Reference Range Interpretation Comments POCT GLU (test code = 1764774494) 164 mg/dL 70-110 H Lab Interpretation (test code = Abnormal 61635-6) [facility] GLUCOSE (AUTOMATED)2022-07-26 12:31:04 Test Item Value Reference Range Interpretation Comments POCT GLU (test code = 6819030120) 164 mg/dL 70-110 H Lab Interpretation (test code = Abnormal 16128-2) [facility] GLUCOSE (AUTOMATED)2022-07-26 11:09:37 Test Item Value Reference Range Interpretation Comments POCT GLU (test code = 8692055864) 184 mg/dL 70-110 H Lab Interpretation (test code = Abnormal 03671-4) [facility] GLUCOSE (AUTOMATED)2022-07-26 11:09:37 Test Item Value Reference Range Interpretation Comments POCT GLU (test code = 5320614459) 184 mg/dL 70-110 H Lab Interpretation (test code = Abnormal 48190-9) [facility] GLUCOSE (AUTOMATED)2022-07-26 08:53:59 Test Item Value Reference Range Interpretation Comments POCT GLU (test code = 5677472862) 200 mg/dL 70-110 H Lab Interpretation (test code = Abnormal 68164-9) [facility] GLUCOSE (AUTOMATED)2022-07-26 08:53:59 Test Item Value Reference Range Interpretation Comments POCT GLU (test code = 8706228614) 200 mg/dL 70-110 H Lab Interpretation (test code = Abnormal 48570-3) [facility] GLUCOSE (AUTOMATED)2022-07-26 05:20:56 Test Item Value Reference Range Interpretation Comments POCT GLU (test code = 8667265750) 197 mg/dL 70-110 H Lab Interpretation (test code = Abnormal 75498-9) [facility] GLUCOSE (AUTOMATED)2022-07-26 05:20:56 Test Item Value Reference Range Interpretation Comments POCT GLU (test code = 3955866253) 197 mg/dL 70-110 H Lab Interpretation (test code = Abnormal 35206-5) [facility] [id number] 03:01:42 Test Item Value Reference Range Interpretation Comments Blood Culture-Aerobic No organisms No growth Previo us (test code = 93279-9) isolated prelim inary verified result was Culture [...] Culture-Anaerobic isolated preliminar y (test code = 69798-1) verifi ed result was Culture In Progress [...] CDT Lab Interpretation Normal (test code = 17999-2) [facility] CULTURE [id number] 03:01:42 Test Item Value Reference Range Interpretation Comments Blood Culture-Aerobic No organisms No growth Previo us (test code = 42707-5) isolated prelim inary verified result was Culture [...] Culture-Anaerobic isolated preliminar y (test code = 87364-1) verifi ed result was Culture In Progress [...] CDT Lab Interpretation Normal (test code = 88962-9) [facility] GLUCOSE (AUTOMATED)2022-07-26 01:46:28 Test Item Value Reference Range Interpretation Comments POCT GLU (test code = 7021709246) 142 mg/dL 70-110 H Lab Interpretation (test code = Abnormal 21376-0) [facility] 01:46:28 Test Item Value Reference Range Interpretation Comments POCT GLU (test code = 7080709407) 142 mg/dL 70-110 H Lab Interpretation (test code = Abnormal 34491-7) [facility] GLUCOSE (AUTOMATED)2022-07-25 21:23:27 Test Item Value Reference Range Interpretation Comments POCT GLU (test code = 2522204317) 159 mg/dL 70-110 H Lab Interpretation (test code = Abnormal 74893-2) [facility] GLUCOSE (AUTOMATED)2022-07-25 21:23:27 Test Item Value Reference Range Interpretation Comments POCT GLU (test code = 0704686515) 159 mg/dL 70-110 H Lab Interpretation (test code = Abnormal 53602-7) [facility] GLUCOSE (AUTOMATED)2022-07-25 20:47:32 Test Item Value Reference Range Interpretation Comments POCT GLU (test code = 2969249273) 151 mg/dL 70-110 H Lab Interpretation (test code = Abnormal 48155-9) [facility] GLUCOSE (AUTOMATED)2022-07-25 20:47:32 Test Item Value Reference Range Interpretation Comments POCT GLU (test code = 4620313120) 151 mg/dL 70-110 H Lab Interpretation (test code = Abnormal 32066-4) [facility] GLUCOSE (AUTOMATED)2022-07-25 17:16:01 Test Item Value Reference Range Interpretation Comments POCT GLU (test code = 5769893762) 389 mg/dL 70-110 H Lab Interpretation (test code = Abnormal 99277-7) [facility] GLUCOSE (AUTOMATED)2022-07-25 17:16:01 Test Item Value Reference Range Interpretation Comments POCT GLU (test code = 9853369817) 389 mg/dL 70-110 H Lab Interpretation (test code = Abnormal 03820-4) [facility]2022-07-25 15:08:51 Test Item Value Reference Range Interpretation Comments APTT Patient (test code = See_Comment [ Automated message] 3173-2) The system SANDOW generated this result transmitted ref erence range: 26 - 36 Seconds. The re ference range was not u sed to interpret this result as normal/abnor mal. Lab Interpretation (test Normal code = 26052-0) [facility]2022-07-25 15:08:51 Test Item Value Reference Range Interpretation Comments APTT Patient (test code = See_Comment [ Automated message] 3173-2) The system SANDOW generated this result transmitted ref erence range: 26 - 36 Seconds. The re ference range was not u sed to interpret this result as normal/abnor mal. Lab Interpretation (test Normal code = 99924-7) [facility] GLUCOSE (AUTOMATED)2022-07-25 13:22:34 Test Item Value Reference Range Interpretation Comments POCT GLU (test code = 0764663092) 168 mg/dL 70-110 H Lab Interpretation (test code = Abnormal 71013-1) [facility] GLUCOSE (AUTOMATED)2022-07-25 13:22:34 Test Item Value Reference Range Interpretation Comments POCT GLU (test code = 3042942289) 168 mg/dL 70-110 H Lab Interpretation (test code = Abnormal 66026-6) [facility] GLUCOSE (AUTOMATED)2022-07-25 01:59:34 Test Item Value Reference Range Interpretation Comments POCT GLU (test code = 5686902149) 202 mg/dL 70-110 H Lab Interpretation (test code = Abnormal 61055-7) [facility] GLUCOSE (AUTOMATED)2022-07-25 01:59:34 Test Item Value Reference Range Interpretation Comments POCT GLU (test code = 2502949379) 202 mg/dL 70-110 H Lab Interpretation (test code = Abnormal 80339-7) [facility] METABOLIC PANEL (NA, K, CL, CO2, GLUCOSE, BUN, CREATININE, CA)2022-07-24 23:06:12 Test Item Value Reference Range Interpretation Comments NA (test code = 135 mmol/L 135-145 4759852615) K (test code = 4.1 mmol/L 3.5-5 7300665567) CL (test code = 95 mmol/L 98-108 L 2199787466) CO2 TOTAL (test code = 39 mmol/L 23-31 H 4604730106) AGAP (test code = 2-16 L 6062314538) BUN (test code = 16 mg/dL 7-23 0749919617) GLUCOSE (test code = 140 mg/dL 70-110 H 2320748199) CREATININE (test code = 0.59 mg/dL 0.6-1.25 L 1744520832) CALCIUM (test code = 8.4 mg/dL 8.6-10.6 L 5103273356) eGFR (test code = mL/min/1.73m2 4791574755) ROSLYN (test code = ROSLYN) Association of [...] tests). Lab Interpretation Abnormal (test code = 31063-5) [facility]12 Test Item Value Reference Range Interpretation Comments MAGNESIUM (test code = 0430903989) 2.1 mg/dL 1.7-2.4 Lab Interpretation (test code = Normal 11567-7) [facility] METABOLIC PANEL (NA, K, CL, CO2, GLUCOSE, BUN, CREATININE, CA)2022-07-24 23:06:12 Test Item Value Reference Range Interpretation Comments NA (test code = 135 mmol/L 135-145 4014571114) K (test code = 4.1 mmol/L 3.5-5 9544905822) CL (test code = 95 mmol/L 98-108 L 9384884898) CO2 TOTAL (test code = 39 mmol/L 23-31 H 8395432032) AGAP (test code = 2-16 L 6601394418) BUN (test code = 16 mg/dL 7-23 3858573550) GLUCOSE (test code = 140 mg/dL 70-110 H 4309880457) CREATININE (test code = 0.59 mg/dL 0.6-1.25 L 0038266979) CALCIUM (test code = 8.4 mg/dL 8.6-10.6 L 7945090931) eGFR (test code = mL/min/1.73m2 2217882166) ROSLYN (test code = ROSLYN) Association of [...] tests). Lab Interpretation Abnormal (test code = 24364-8) [facility]GNESIUM2022-09-14 23:06:12 Test Item Value Reference Range Interpretation Comments MAGNESIUM (test code = 9967676781) 2.1 mg/dL 1.7-2.4 Lab Interpretation (test code = Normal 71282-7) [facility] (for use with Heparin Infusion)2022-07-24 23:00:29 Test Item Value Reference Range Interpretation Comments APTT Patient (test code See_Comment H [Au tomated message] = 3173-2) The system SANDOW generated this result transmitted ref erence range: 26 - 36 Seconds. The reference range was not used to int erpret this result as normal/abnormal . Lab Interpretation (test Abnormal code = 32031-1) [facility] (for use with Heparin Infusion)2022-07-24 23:00:29 Test Item Value Reference Range Interpretation Comments APTT Patient (test code See_Comment H [Au tomated message] = 3173-2) The system SANDOW generated this result transmitted ref erence range: 26 - 36 Seconds. The reference range was not used to int erpret this result as normal/abnormal . Lab Interpretation (test Abnormal code = 48151-4) [facility] GLUCOSE (AUTOMATED)2022-07-24 20:44:06 Test Item Value Reference Range Interpretation Comments POCT GLU (test code = 9409987250) 161 mg/dL 70-110 H Lab Interpretation (test code = Abnormal 04966-4) [facility] GLUCOSE (AUTOMATED)2022-07-24 20:44:06 Test Item Value Reference Range Interpretation Comments POCT GLU (test code = 4637286361) 161 mg/dL 70-110 H Lab Interpretation (test code = Abnormal 32465-6) [facility] GLUCOSE (AUTOMATED)2022-07-24 17:17:45 Test Item Value Reference Range Interpretation Comments POCT GLU (test code = 9415870533) 257 mg/dL 70-110 H Lab Interpretation (test code = Abnormal 00482-1) [facility] GLUCOSE (AUTOMATED)2022-07-24 17:17:45 Test Item Value Reference Range Interpretation Comments POCT GLU (test code = 7309314669) 257 mg/dL 70-110 H Lab Interpretation (test code = Abnormal 84116-7) [facility] GLUCOSE (AUTOMATED)2022-07-24 14:12:13 Test Item Value Reference Range Interpretation Comments POCT GLU (test code = 8950300905) 201 mg/dL 70-110 H Lab Interpretation (test code = Abnormal 45667-9) [facility] GLUCOSE (AUTOMATED)2022-07-24 14:12:13 Test Item Value Reference Range Interpretation Comments POCT GLU (test code = 1949690139) 201 mg/dL 70-110 H Lab Interpretation (test code = Abnormal 45815-7) [facility] GLUCOSE (AUTOMATED)2022-07-24 01:57:51 Test Item Value Reference Range Interpretation Comments POCT GLU (test code = 0910140938) 214 mg/dL 70-110 H Lab Interpretation (test code = Abnormal 82850-8) [facility] GLUCOSE (AUTOMATED)2022-07-24 01:57:51 Test Item Value Reference Range Interpretation Comments POCT GLU (test code = 2261036137) 214 mg/dL 70-110 H Lab Interpretation (test code = Abnormal 55501-6) [facility] GLUCOSE (AUTOMATED)2022-07-23 21:55:56 Test Item Value Reference Range Interpretation Comments POCT GLU (test code = 2621376803) 184 mg/dL 70-110 H Lab Interpretation (test code = Abnormal 81109-2) [facility] GLUCOSE (AUTOMATED)2022-07-23 21:55:56 Test Item Value Reference Range Interpretation Comments POCT GLU (test code = 6137590088) 184 mg/dL 70-110 H Lab Interpretation (test code = Abnormal 95079-9) [facility] GLUCOSE (AUTOMATED)2022-07-23 17:27:48 Test Item Value Reference Range Interpretation Comments POCT GLU (test code = 0521250571) 259 mg/dL 70-110 H Lab Interpretation (test code = Abnormal 59085-2) [facility] GLUCOSE (AUTOMATED)2022-07-23 17:27:48 Test Item Value Reference Range Interpretation Comments POCT GLU (test code = 5884567788) 259 mg/dL 70-110 H Lab Interpretation (test code = Abnormal 14698-5) [facility] GLUCOSE (AUTOMATED)2022-07-23 13:05:59 Test Item Value Reference Range Interpretation Comments POCT GLU (test code = 6563772914) 154 mg/dL 70-110 H Lab Interpretation (test code = Abnormal 78375-5) [facility] GLUCOSE (AUTOMATED)2022-07-23 13:05:59 Test Item Value Reference Range Interpretation Comments POCT GLU (test code = 6602411517) 154 mg/dL 70-110 H Lab Interpretation (test code = Abnormal 99580-7) [facility] GLUCOSE (AUTOMATED)2022-07-23 09:58:20 Test Item Value Reference Range Interpretation Comments POCT GLU (test code = 0362568789) 177 mg/dL 70-110 H Lab Interpretation (test code = Abnormal 29876-8) [facility] GLUCOSE (AUTOMATED)2022-07-23 09:58:20 Test Item Value Reference Range Interpretation Comments POCT GLU (test code = 3778430830) 177 mg/dL 70-110 H Lab Interpretation (test code = Abnormal 03537-2) [facility] GLUCOSE (AUTOMATED)2022-07-22 21:30:57 Test Item Value Reference Range Interpretation Comments POCT GLU (test code = 9558503181) 194 mg/dL 70-110 H Lab Interpretation (test code = Abnormal 63930-7) [facility] GLUCOSE (AUTOMATED)2022-07-22 21:30:57 Test Item Value Reference Range Interpretation Comments POCT GLU (test code = 0117480963) 194 mg/dL 70-110 H Lab Interpretation (test code = Abnormal 31555-0) [facility] GLUCOSE (AUTOMATED)2022-07-22 16:52:50 Test Item Value Reference Range Interpretation Comments POCT GLU (test code = 5171861088) 197 mg/dL 70-110 H Lab Interpretation (test code = Abnormal 32458-2) [facility] GLUCOSE (AUTOMATED)2022-07-22 16:52:50 Test Item Value Reference Range Interpretation Comments POCT GLU (test code = 2143634400) 197 mg/dL 70-110 H Lab Interpretation (test code = Abnormal 13699-5) [facility] GLUCOSE (AUTOMATED)2022-07-22 13:22:34 Test Item Value Reference Range Interpretation Comments POCT GLU (test code = 8454182777) 150 mg/dL 70-110 H Lab Interpretation (test code = Abnormal 18123-0) [facility] GLUCOSE (AUTOMATED)2022-07-22 13:22:34 Test Item Value Reference Range Interpretation Comments POCT GLU (test code = 5154110683) 150 mg/dL 70-110 H Lab Interpretation (test code = Abnormal 28060-6) [id number] 09:38:27 Test Item Value Reference Range Interpretation Comments NT-proBNP (test code 2160 pg/mL See_Comment H [Autom ated = 8229690496) message] The system which generated this result transmitted reference range : <=125. The reference range was not used to interpret this result as normal/abnormal . ROSLYN (test code = ROSLYN) Biotin has been reported to cause a negative bias, interpret results relative to patient's use of biotin. Lab Interpretation Abnormal (test code = 96446-6) [facility] [id number] 09:38:27 Test Item Value Reference Range Interpretation Comments NT-proBNP (test code 2160 pg/mL See_Comment H [Autom ated = 4205689684) message] The system which generated this result transmitted reference range : <=125. The reference range was not used to interpret this result as normal/abnormal . ROSLYN (test code = ROSLYN) Biotin has been reported to cause a negative bias, interpret results relative to patient's use of biotin. Lab Interpretation Abnormal (test code = 32553-4) [facility]29 Test Item Value Reference Range Interpretation Comments MAGNESIUM (test code = 1490993571) 1.8 mg/dL 1.7-2.4 Lab Interpretation (test code = Normal 23177-1) [facility] 09:31:29 Test Item Value Reference Range Interpretation Comments MAGNESIUM (test code = 5329716866) 1.8 mg/dL 1.7-2.4 Lab Interpretation (test code = Normal 31524-4) [facility] (NA, K, CL, CO2, GLUCOSE, BUN, CREATININE, CA)2022-07-22 09:31:09 Test Item Value Reference Range Interpretation Comments NA (test code = 137 mmol/L 135-145 0876201445) K (test code = 4.0 mmol/L 3.5-5 7378110851) CL (test code = 98 mmol/L 98-108 0590530354) CO2 TOTAL (test code = 34 mmol/L 23-31 H 2084572601) AGAP (test code = 2-16 0800803585) BUN (test code = 16 mg/dL 7-23 1392434065) GLUCOSE (test code = 177 mg/dL 70-110 H 4347737088) CREATININE (test code = 0.66 mg/dL 0.6-1.25 4234565590) CALCIUM (test code = 8.2 mg/dL 8.6-10.6 L 6115712372) eGFR (test code = mL/min/1.73m2 7175577302) ROSLYN (test code = ROSLYN) Association of [...] tests). Lab Interpretation Abnormal (test code = 75757-6) [facility] METABOLIC PANEL (NA, K, CL, CO2, GLUCOSE, BUN, CREATININE, CA)2022-07-22 09:31:09 Test Item Value Reference Range Interpretation Comments NA (test code = 137 mmol/L 135-145 3210145863) K (test code = 4.0 mmol/L 3.5-5 9336564427) CL (test code = 98 mmol/L 98-108 4388165852) CO2 TOTAL (test code = 34 mmol/L 23-31 H 3434575707) AGAP (test code = 2-16 7528790403) BUN (test code = 16 mg/dL 7-23 9656651716) GLUCOSE (test code = 177 mg/dL 70-110 H 2516420660) CREATININE (test code = 0.66 mg/dL 0.6-1.25 9201744033) CALCIUM (test code = 8.2 mg/dL 8.6-10.6 L 7779362714) eGFR (test code = mL/min/1.73m2 6039230355) ROSLYN (test code = ROSLYN) Association of [...] tests). Lab Interpretation Abnormal (test code = 25766-0) [facility]51726[facility] (ALB,T.PRO,BILI T,BU/BC,ALT,AST,ALK PHOS)2022-07-22 09:30:44 Test Item Value Reference Range Interpretation Comments TOTAL BILI (test code = 0139972154) 1.2 mg/dL 0.1-1.1 H BILI UNCON (test code = 9121759003) 0.9 mg/dL 0.1-1.1 BILI CONJ (test code = 6262929737) 0.0 mg/dL 0-0.3 T PROTEIN (test code = 3231245780) 6.5 g/dL 6.3-8.2 ALBUMIN (test code = 1451150220) 3.7 g/dL 3.5-5 ALK PHOS (test code = 0397778107) 67 U/L 34-122 ALTv (test code = 1742-6) 33 U/L 5-50 AST(SGOT) (test code = 0677690392) 30 U/L 13-40 Lab Interpretation (test code = Abnormal 37252-6) [facility]2022-[facility]-12 09:30:44 Test Item Value Reference Range Interpretation Comments PHOSPHORUS (test code = 2466009927) 3.6 mg/dL 2.5-5 Lab Interpretation (test code = Normal 70160-0) [facility] (77088) (ALB,T.PRO,BILI T,BU/BC,ALT,AST,ALK PHOS)2022-07-22 09:30:44 Test Item Value Reference Range Interpretation Comments TOTAL BILI (test code = 1164346065) 1.2 mg/dL 0.1-1.1 H BILI UNCON (test code = 8058877105) 0.9 mg/dL 0.1-1.1 BILI CONJ (test code = 5197938216) 0.0 mg/dL 0-0.3 T PROTEIN (test code = 9804822143) 6.5 g/dL 6.3-8.2 ALBUMIN (test code = 9795782938) 3.7 g/dL 3.5-5 ALK PHOS (test code = 1657890575) 67 U/L 34-122 ALTv (test code = 1742-6) 33 U/L 5-50 AST(SGOT) (test code = 0610310672) 30 U/L 13-40 Lab Interpretation (test code = Abnormal 50141-1) [facility]22[facility]12 09:30:44 Test Item Value Reference Range Interpretation Comments PHOSPHORUS (test code = 7168806364) 3.6 mg/dL 2.5-5 Lab Interpretation (test code = Normal 17693-9) [facility] WITH [id number] 09:23:08 Test Item Value Reference Range Interpretation Comments WBC (test code = See_Comment H [Automated 5453-2) message] The system which generated this result transmit artem reference range : 4.20 - 10.70 10*3/?L. The reference range was not used to interpret this result as normal/abnormal . RBC (test code = See_Comment [Automated 356-8) message] The system which generated this result [...] RDW-SD (test code = 46.6 fL 38.5-51.6 11302-7) RDW-CV (test code = 13.5 % 12.1-15.4 788-0) PLT (test code = See_Comment L [Automated 777-3) message] The system which generated this result transmit artem reference range : 150 - 328 10*3/ ?L. The reference range was not u sed to interpret th is result as normal/abnormal . MPV (test code = 12.7 fL 9.8-13 19469-6) NRBC/100 WBC (test See_Comment [Automat ed code = 2513857584) message] The system which generated this result transmit artem reference range : 0.0 - 10.0 /100 WBCs. The reference range was not used to interpret this result as normal/abnormal . NRBC x10^3 (test code See_Comment [Auto mated = 4452045643) message] The system which generated this result transmit artem reference range : 10*3/?L. The reference range was not used to interpret this result as normal/abnormal . GRAN MAT (NEUT) % 71.3 % (test code = 770-8) IMM GRAN % (test code 0.40 % = 4389844759) LYMPH % (test code = 17.4 % 736-9) MONO % (test code = 9.8 % 5905-5) EOS % (test code = 0.8 % 713-8) BASO % (test code = 0.3 % 706-2) GRAN MAT x10^3(ANC) 10.18 10*3/uL 1.99-6.95 H (test code = 3345397368) IMM GRAN x10^3 (test 0.06 10*3/uL 0-0.06 code = 9986834144) LYMPH x10^3 (test code 2.49 10*3/uL 1.09-3.23 = 731-0) MONO x10^3 (test code 1.40 10*3/uL 0.36-1.02 H = 742-7) EOS x10^3 (test code = 0.11 10*3/uL 0.06-0.53 711-2) BASO x10^3 (test code 0.04 10*3/uL 0.01-0.09 = 704-7) Lab Interpretation Abnormal (test code = 31702-8) [facility] WITH [id number] 09:23:08 Test Item Value Reference Range Interpretation [...] RDW-SD (test code = 46.6 fL 38.5-51.6 07108-9) RDW-CV (test code = 13.5 % 12.1-15.4 788-0) PLT (test code = See_Comment L [Automated 777-3) message] The system which generated this result transmit artem reference range : 150 - 328 10*3/ ?L. The reference range was not u sed to interpret th is result as normal/abnormal . MPV (test code = 12.7 fL 9.8-13 96911-5) NRBC/100 WBC (test See_Comment [Automat ed code = 7739085163) message] The system which generated this result transmit artem reference range : 0.0 - 10.0 /100 WBCs. The reference range was not used to interpret this result as normal/abnormal . NRBC x10^3 (test code See_Comment [Auto mated = 3508051072) message] The system which generated this result transmit artem reference range : 10*3/?L. The reference range was not used to interpret this result as normal/abnormal . GRAN MAT (NEUT) % 71.3 % (test code = 770-8) IMM GRAN % (test code 0.40 % = 4011458183) LYMPH % (test code = 17.4 % 736-9) MONO % (test code = 9.8 % 5905-5) EOS % (test code = 0.8 % 713-8) BASO % (test code = 0.3 % 706-2) GRAN MAT x10^3(ANC) 10.18 10*3/uL 1.99-6.95 H (test code = 8601246047) IMM GRAN x10^3 (test 0.06 10*3/uL 0-0.06 code = 0632133048) LYMPH x10^3 (test code 2.49 10*3/uL 1.09-3.23 = 731-0) MONO x10^3 (test code 1.40 10*3/uL 0.36-1.02 H = 742-7) EOS x10^3 (test code = 0.11 10*3/uL 0.06-0.53 711-2) BASO x10^3 (test code 0.04 10*3/uL 0.01-0.09 = 704-7) Lab Interpretation Abnormal (test code = 45418-4) [facility] GLUCOSE (AUTOMATED)2022-07-22 01:47:13 Test Item Value Reference Range Interpretation Comments POCT GLU (test code = 1336558605) 220 mg/dL 70-110 H Lab Interpretation (test code = Abnormal 66331-5) [facility] GLUCOSE (AUTOMATED)2022-07-22 01:47:13 Test Item Value Reference Range Interpretation Comments POCT GLU (test code = 0823392175) 220 mg/dL 70-110 H Lab Interpretation (test code = Abnormal 11832-5) [facility] (10673)(TOTAL CHOLESTEROL, TRIGLYCERIDES, HDL)2022-07-22 00:19:28 Test Item Value Reference Range Interpretation Comments CHOL (test code = 121 mg/dL 120-200 4021777205) HDL (test code = 28 mg/dL See_Comment L [Automated message] 8950053167) The system SANDOW generated this result transmit artem reference range : >=40. The refer ence range was not u sed to interpret th is result as normal/abnormal . HDLC RATIO (test code = See_Comment [Au tomated message] 9802926311) The system SANDOW generated this result transmit artem reference range : <=5.0. The refe rence range was not u sed to interpret th is result as normal/abnormal . TRIG (test code = 119 mg/dL 30-170 4824597649) LDL CHOL (test code = 69 mg/dL See_Comment [Auto mated message] 75521-9) The system SANDOW generated this result transmit artem reference range : <=160. The refe rence range was not u sed to interpret th is result as normal/abnormal . VLDL (test code = 24 mg/dL 5-60 6392880216) Lab Interpretation (test Abnormal code = 12436-0) [id number]TOTAL CHOLESTEROL, TRIGLYCERIDES, HDL)2022-07-22 00:19:28 Test Item Value Reference Range Interpretation Comments CHOL (test code = 121 mg/dL 120-200 9043013276) HDL (test code = 28 mg/dL See_Comment L [Automated message] 8286318856) The system SANDOW generated this result transmit artem reference range : >=40. The refer ence range was not u sed to interpret th is result as normal/abnormal . HDLC RATIO (test code = See_Comment [Au tomated message] 1101281915) The system SANDOW generated this result transmit artem reference range : <=5.0. The refe rence range was not u sed to interpret th is result as normal/abnormal . TRIG (test code = 119 mg/dL 30-170 1492462528) LDL CHOL (test code = 69 mg/dL See_Comment [Auto mated message] 70134-6) The system SANDOW generated this result transmit artem reference range : <=160. The refe rence range was not u sed to interpret th is result as normal/abnormal . VLDL (test code = 24 mg/dL 5-60 7883219332) Lab Interpretation (test Abnormal code = 49493-8) [facility]22-[facility]-22 00:00:55 Test Item Value Reference Range Interpretation Comments Height (test code = in 8717931762) Weight (test code = lbs 0126789245) Systolic BP (test code = mmHg 2231321618) Diastolic BP (test code mmHg = 4566234271) Heart Rate (test code = bpm 0032740760) BSA (test code = 2.04 m2 7843103677) Ao root annulus (test 3.5 cm code = 3488000850) Ao root diam (test code 3.50 cm = 1032876793) Aortic root (test code = 3.5 cm 6533502301) LVOT diameter (test code 2.19 cm = 8532405010) LVOT area (test code = 3.80 cm2 6752897454) LVIDD (test code = 5.30 cm 5124034254) Left Ventricular End 135.3 mL Diastolic Volume by Teichholz Method (test code = 4320166) IVS (test code = 1.26 cm 3229253758) Interventricular Septum 1.26 cm Diastolic Thickness by 2D (test code = 0539123) LVPWD (test code = 1.26 cm 9877529657) PW (test code = 1.26 cm 0.6-1.0 1552877432) EF(Teich) (test code = 16.40 % 1929902849) LVIDS (test code = 4.90 cm 1004883292) Left Ventricular End 113.1 mL Systolic Volume by Teichholz Method (test code = 6151354) FS (test code = 7 % 0537576444) EF - 2D (test code = 16.40 % 76725815) LA size (test code = 4.3 cm 8115189504) TR Peak Anthony (test code = 249.6 cm/s 3455045103) Triscuspid Valve mmHg Regurgitation Peak Gradient (test code = 2746116434) LAV(MOD-sp4) (test code 79.00 mL = 7486281187) E wave decelartion time 0.13 s (test code = 2461010343) MV Peak E Anthony (test code 82.3 cm/s = 3154876980) MV stenosis pressure 1/2 38.8 ms time (test code = 8090780924) MV Peak A Anthony (test code 40.8 cm/s = 8647583325) E/A ratio (test code = ratio 5631450754) MR max PG (test code = 61.50 mm[Hg] 7251998792) MR max anthony (test code = 392.20 cm/s 0937188347) Mr max anthony (test code = 392.2 m/s 6836636038) MV Prop V (test code = 33.40 cm/s 2522160958) MV E/e' septal (test 12.6 cm/s code = 8805708881) Tapse (test code = 1.17 cm 1659982852) LVOT stroke volume (test 52.20 cm3 code = 4189935262) LVOT peak anthony (test code 86.4 cm/s = 5285544931) LVOT mn grad (test code mmHg = 1893693292) AV LVOT peak gradient mmHg (test code = 0099719492) LVOT peak VTI (test code 13.9 cm = 7883983774) LV V1 mean (test code = 57.20 cm/s 9660620534) Aortic valve mean 94.3 cm/s velocity (test code = 8565604118) Ao peak anthony (test code = 125.8 cm/s 8622275150) Ao VTI (test code = 22.6 cm 9951868410) AV area by cont VTI 2.3 cm2 (test code = 4001932003) AV area peak anthony (test 2.6 cm2 code = 3309601995) Ao max PG (test code = 6.30 mm[Hg] 6939914675) AV peak gradient (test mmHg code = 5681606554) AV valve area (test code 2.31 cm2 = 8010163625) AV mean gradient (test mmHg code = 7489933856) Radiology Study observation (narrative) (test code = 75404-4) ROSLYN (test code = ROSLYN) ?Left?Ventricle: Left [...] mL of Lumason ultrasound enhancing agent used. [facility]2022-[facility]-22 00:00:55 Test Item Value Reference Range Interpretation Comments Height (test code = in 3374355896) Weight (test code = lbs 7466659940) Systolic BP (test code = mmHg 8069414252) Diastolic BP (test code mmHg = 6124044081) Heart Rate (test code = bpm 5844848248) BSA (test code = 2.04 m2 2390882550) Ao root annulus (test 3.5 cm code = 0365912957) Ao root diam (test code 3.50 cm = 3321892057) Aortic root (test code = 3.5 cm 7827196386) LVOT diameter (test code 2.19 cm = 6268343161) LVOT area (test code = 3.80 cm2 3587490937) LVIDD (test code = 5.30 cm 2562132545) Left Ventricular End 135.3 mL Diastolic Volume by Teichholz Method (test code = 5086519) IVS (test code = 1.26 cm 3235572597) Interventricular Septum 1.26 cm Diastolic Thickness by 2D (test code = 0872133) LVPWD (test code = 1.26 cm 1807856779) PW (test code = 1.26 cm 0.6-1.3 9923480519) EF(Teich) (test code = 16.40 % 2780400829) LVIDS (test code = 4.90 cm 7899186113) Left Ventricular End 113.1 mL Systolic Volume by Teichholz Method (test code = 6924887) FS (test code = 7 % 9596277640) EF - 2D (test code = 16.40 % 81576559) LA size (test code = 4.3 cm 9657141409) TR Peak Anthony (test code = 249.6 cm/s 8562665016) Triscuspid Valve mmHg Regurgitation Peak Gradient (test code = 6837900248) LAV(MOD-sp4) (test code 79.00 mL = 8698039643) E wave decelartion time 0.13 s (test code = 6849483031) MV Peak E Anthony (test code 82.3 cm/s = 9494593356) MV stenosis pressure 1/2 38.8 ms time (test code = 1803408136) MV Peak A Anthony (test code 40.8 cm/s = 7770337164) E/A ratio (test code = ratio 6877415772) MR max PG (test code = 61.50 mm[Hg] 5040359079) MR max anthony (test code = 392.20 cm/s 4138684911) Mr max anthony (test code = 392.2 m/s 5318910607) MV Prop V (test code = 33.40 cm/s 6784321533) MV E/e' septal (test 12.6 cm/s code = 4198309889) Tapse (test code = 1.17 cm 1712206741) LVOT stroke volume (test 52.20 cm3 code = 1871160213) LVOT peak anthony (test code 86.4 cm/s = 9386248310) LVOT mn grad (test code mmHg = 8586560969) AV LVOT peak gradient mmHg (test code = 5251363767) LVOT peak VTI (test code 13.9 cm = 7890326760) LV V1 mean (test code = 57.20 cm/s 1198519855) Aortic valve mean 94.3 cm/s velocity (test code = 8354726385) Ao peak anthony (test code = 125.8 cm/s 3854309383) Ao VTI (test code = 22.6 cm 6351437561) AV area by cont VTI 2.3 cm2 (test code = 5172391016) AV area peak anthony (test 2.6 cm2 code = 4625800948) Ao max PG (test code = 6.30 mm[Hg] 9499943047) AV peak gradient (test mmHg code = 5202916114) AV valve area (test code 2.31 cm2 = 5872303107) AV mean gradient (test mmHg code = 8950684983) Radiology Study observation (narrative) (test code = 91866-3) ROSLYN (test code = ROSLYN) ?Left?Ventricle: Left [...] mL of Lumason ultrasound enhancing agent used. [facility] GLUCOSE (AUTOMATED)2022-07-21 21:54:48 Test Item Value Reference Range Interpretation Comments POCT GLU (test code = 6896008034) 161 mg/dL 70-110 H Lab Interpretation (test code = Abnormal 36928-7) [facility] GLUCOSE (AUTOMATED)2022-07-21 21:54:48 Test Item Value Reference Range Interpretation Comments POCT GLU (test code = 5455278564) 161 mg/dL 70-110 H Lab Interpretation (test code = Abnormal 66467-9) [facility] GLUCOSE (AUTOMATED)2022-07-21 16:47:05 Test Item Value Reference Range Interpretation Comments POCT GLU (test code = 3622589587) 132 mg/dL 70-110 H Lab Interpretation (test code = Abnormal 20860-1) [facility] GLUCOSE (AUTOMATED)2022-07-21 16:47:05 Test Item Value Reference Range Interpretation Comments POCT GLU (test code = 0587290386) 132 mg/dL 70-110 H Lab Interpretation (test code = Abnormal 56943-9) [facility] GLUCOSE (AUTOMATED)2022-07-21 15:03:01 Test Item Value Reference Range Interpretation Comments POCT GLU (test code = 2356295589) 182 mg/dL 70-110 H Lab Interpretation (test code = Abnormal 69218-1) [facility] GLUCOSE (AUTOMATED)2022-07-21 15:03:01 Test Item Value Reference Range Interpretation Comments POCT GLU (test code = 4658688172) 182 mg/dL 70-110 H Lab Interpretation (test code = Abnormal 77619-2) [facility] with [id number] 14:58:14 Test Item Value Reference Range Interpretation Comments WBC (test code = See_Comment H [Automated 2490-2) message] The system which generated this result transmit artem reference range : 4.20 - 10.70 10*3/?L. The reference range was not used to interpret this result as normal/abnormal . RBC (test code = See_Comment [Automated 269-8) message] The system which generated this result [...] RDW-SD (test code = 46.4 fL 38.5-51.6 73371-0) RDW-CV (test code = 13.5 % 12.1-15.4 788-0) PLT (test code = See_Comment [Automated 777-3) message] The system which generated this result transmit artem reference range : 150 - 328 10*3/ ?L. The reference range was not u sed to interpret th is result as normal/abnormal . MPV (test code = 13.0 fL 9.8-13 67005-3) NRBC/100 WBC (test See_Comment [Automat ed code = 7454826888) message] The system which generated this result transmit artem reference range : 0.0 - 10.0 /100 WBCs. The reference range was not used to interpret this result as normal/abnormal . NRBC x10^3 (test code See_Comment [Auto mated = 3027855508) message] The system which generated this result transmit artem reference range : 10*3/?L. The reference range was not used to interpret this result as normal/abnormal . GRAN MAT (NEUT) % 71.1 % (test code = 770-8) IMM GRAN % (test code 0.40 % = 1412728063) LYMPH % (test code = 17.6 % 736-9) MONO % (test code = 10.3 % 5905-5) EOS % (test code = 0.3 % 713-8) BASO % (test code = 0.3 % 706-2) GRAN MAT x10^3(ANC) 10.55 10*3/uL 1.99-6.95 H (test code = 2560946528) IMM GRAN x10^3 (test 0.06 10*3/uL 0-0.06 code = 4295752756) LYMPH x10^3 (test code 2.61 10*3/uL 1.09-3.23 = 731-0) MONO x10^3 (test code 1.53 10*3/uL 0.36-1.02 H = 742-7) EOS x10^3 (test code = 0.04 10*3/uL 0.06-0.53 L 711-2) BASO x10^3 (test code 0.04 10*3/uL 0.01-0.09 = 704-7) BANDS (test code = Increased A 3451039566) REACT LYMPHS (test Rare code = 7143650675) GIANT PLATELETS (test Present See_Comment A [Auto mated code = 5908-9) message] The system which generated this result transmit artem reference range : (none). The reference range was not used to interpret this result as normal/abnormal . Lab Interpretation Abnormal (test code = 20232-9) [facility] with [id number] 14:58:14 Test Item Value Reference Range Interpretation [...] RDW-SD (test code = 46.4 fL 38.5-51.6 58764-0) RDW-CV (test code = 13.5 % 12.1-15.4 788-0) PLT (test code = See_Comment [Automated 777-3) message] The system which generated this result transmit artem reference range : 150 - 328 10*3/ ?L. The reference range was not u sed to interpret th is result as normal/abnormal . MPV (test code = 13.0 fL 9.8-13 66646-6) NRBC/100 WBC (test See_Comment [Automat ed code = 7718439417) message] The system which generated this result transmit artem reference range : 0.0 - 10.0 /100 WBCs. The reference range was not used to interpret this result as normal/abnormal . NRBC x10^3 (test code See_Comment [Auto mated = 4249254677) message] The system which generated this result transmit artem reference range : 10*3/?L. The reference range was not used to interpret this result as normal/abnormal . GRAN MAT (NEUT) % 71.1 % (test code = 770-8) IMM GRAN % (test code 0.40 % = 6274810624) LYMPH % (test code = 17.6 % 736-9) MONO % (test code = 10.3 % 5905-5) EOS % (test code = 0.3 % 713-8) BASO % (test code = 0.3 % 706-2) GRAN MAT x10^3(ANC) 10.55 10*3/uL 1.99-6.95 H (test code = 4892089017) IMM GRAN x10^3 (test 0.06 10*3/uL 0-0.06 code = 2315526745) LYMPH x10^3 (test code 2.61 10*3/uL 1.09-3.23 = 731-0) MONO x10^3 (test code 1.53 10*3/uL 0.36-1.02 H = 742-7) EOS x10^3 (test code = 0.04 10*3/uL 0.06-0.53 L 711-2) BASO x10^3 (test code 0.04 10*3/uL 0.01-0.09 = 704-7) BANDS (test code = Increased A 4827458528) REACT LYMPHS (test Rare code = 0229514918) GIANT PLATELETS (test Present See_Comment A [Auto mated code = 5908-9) message] The system which generated this result transmit artem reference range : (none). The reference range was not used to interpret this result as normal/abnormal . Lab Interpretation Abnormal (test code = 06304-0) [facility] GLUCOSE (AUTOMATED)2022-07-21 13:20:46 Test Item Value Reference Range Interpretation Comments POCT GLU (test code = 7009316003) 148 mg/dL 70-110 H Lab Interpretation (test code = Abnormal 08734-4) [facility] GLUCOSE (AUTOMATED)2022-07-21 13:20:46 Test Item Value Reference Range Interpretation Comments POCT GLU (test code = 0030808705) 148 mg/dL 70-110 H Lab Interpretation (test code = Abnormal 85026-1) [facility] Metabolic Panel (NA, K, CL, CO2, GLUCOSE, BUN, CREATININE, CA)2022-07-21 13:17:35 Test Item Value Reference Range Interpretation Comments NA (test code = 134 mmol/L 135-145 L 7523614407) K (test code = 4.1 mmol/L 3.5-5 3720527363) CL (test code = 99 mmol/L 98-108 3410917782) CO2 TOTAL (test code = 32 mmol/L 23-31 H 5899276902) AGAP (test code = 2-16 6962361436) BUN (test code = 17 mg/dL 7-23 0073157161) GLUCOSE (test code = 186 mg/dL 70-110 H 2934350409) CREATININE (test code = 0.65 mg/dL 0.6-1.25 6578505455) CALCIUM (test code = 8.2 mg/dL 8.6-10.6 L 5424218649) eGFR (test code = mL/min/1.73m2 0741520344) ROSLYN (test code = ROSLYN) Association of [...] tests). Lab Interpretation Abnormal (test code = 27493-9) [facility] Metabolic Panel (NA, K, CL, CO2, GLUCOSE, BUN, CREATININE, CA)2022-07-21 13:17:35 Test Item Value Reference Range Interpretation Comments NA (test code = 134 mmol/L 135-145 L 0095902413) K (test code = 4.1 mmol/L 3.5-5 8737117277) CL (test code = 99 mmol/L 98-108 2801769079) CO2 TOTAL (test code = 32 mmol/L 23-31 H 1570735818) AGAP (test code = 2-16 2901271705) BUN (test code = 17 mg/dL 7-23 5714339178) GLUCOSE (test code = 186 mg/dL 70-110 H 7384692105) CREATININE (test code = 0.65 mg/dL 0.6-1.25 3918966606) CALCIUM (test code = 8.2 mg/dL 8.6-10.6 L 1703790943) eGFR (test code = mL/min/1.73m2 9472233198) ROSLYN (test code = ROSLYN) Association of [...] tests). Lab Interpretation Abnormal (test code = 99677-9) [facility] [id number] 12:35:48 Test Item Value Reference Interpretation Comments Range TROPONIN I (test 0.032 ng/mL See_Comment [Automated code = 4281036402) message] The system which generated this result [...] biotin. Lab Interpretation Normal (test code = 80018-5) [facility] [id number] 12:35:48 Test Item Value Reference Interpretation Comments Range TROPONIN I (test 0.032 ng/mL See_Comment [Automated code = 6182837795) message] The system which generated this result [...] biotin. Lab Interpretation Normal (test code = 87251-7) [facility] [id number] 12:32:47 Test Item Value Reference Range Interpretation Comments NT-proBNP (test code 3830 pg/mL See_Comment H [Autom ated = 4706257556) message] The system which generated this result transmitted reference range : <=125. The reference range was not used to interpret this result as normal/abnormal . ROSLYN (test code = ROSLYN) Biotin has been reported to cause a negative bias, interpret results relative to patient's use of biotin. Lab Interpretation Abnormal (test code = 13162-2) [facility] [id number] 12:32:47 Test Item Value Reference Range Interpretation Comments NT-proBNP (test code 3830 pg/mL See_Comment H [Autom ated = 9472294416) message] The system which generated this result transmitted reference range : <=125. The reference range was not used to interpret this result as normal/abnormal . ROSLYN (test code = ROSLYN) Biotin has been reported to cause a negative bias, interpret results relative to patient's use of biotin. Lab Interpretation Abnormal (test code = 25266-8) [facility] [id number] 12:24:10 Test Item Value Reference Range Interpretation Comments MAGNESIUM (test code = 7506342114) 1.8 mg/dL 1.7-2.4 Lab Interpretation (test code = Normal 84127-4) [facility] [id number] 12:24:10 Test Item Value Reference Range Interpretation Comments MAGNESIUM (test code = 1565183504) 1.8 mg/dL 1.7-2.4 Lab Interpretation (test code = Normal 29255-9) [facility] GLUCOSE (AUTOMATED)2022-07-21 04:19:16 Test Item Value Reference Range Interpretation Comments POCT GLU (test code = 4366023155) 169 mg/dL 70-110 H Lab Interpretation (test code = Abnormal 69435-6) [facility] GLUCOSE (AUTOMATED)2022-07-21 04:19:16 Test Item Value Reference Range Interpretation Comments POCT GLU (test code = 0856084357) 169 mg/dL 70-110 H Lab Interpretation (test code = Abnormal 14332-3) [facility] GLUCOSE (AUTOMATED)2022-07-21 02:03:28 Test Item Value Reference Range Interpretation Comments POCT GLU (test code = 2751439799) 242 mg/dL 70-110 H Lab Interpretation (test code = Abnormal 73219-2) [facility] GLUCOSE (AUTOMATED)2022-07-21 02:03:28 Test Item Value Reference Range Interpretation Comments POCT GLU (test code = 7145124340) 242 mg/dL 70-110 H Lab Interpretation (test code = Abnormal 20999-4) [facility] Hemoglobin (A1C)2022-07-21 00:46:20 Test Item Value Reference Range Interpretation Comments HGB A1C (test code = 11.1 % 4-5.7 H 4548-4) ROSLYN (test code = ROSLYN) Reference RangesNormal: <5.7%Prediabetes: 5.7 - 6.4%Diabetes: > 6.5% Lab Interpretation (test Abnormal code = 05532-3) [facility] (A1C)2022-07-21 00:46:20 Test Item Value Reference Range Interpretation Comments HGB A1C (test code = 11.1 % 4-5.7 H 4548-4) ROSLYN (test code = ROSLYN) Reference RangesNormal: <5.7%Prediabetes: 5.7 - 6.4%Diabetes: > 6.5% Lab Interpretation (test Abnormal code = 62696-5) [facility] GLUCOSE (AUTOMATED)2022-07-20 22:27:55 Test Item Value Reference Range Interpretation Comments POCT GLU (test code = 1862228318) 234 mg/dL 70-110 H Lab Interpretation (test code = Abnormal 19500-3) [facility] GLUCOSE (AUTOMATED)2022-07-20 22:27:55 Test Item Value Reference Range Interpretation Comments POCT GLU (test code = 5433098046) 234 mg/dL 70-110 H Lab Interpretation (test code = Abnormal 57853-7) [facility] [id number] 17:21:08 Test Item Value Reference Range Interpretation Comments NT-proBNP (test code 3250 pg/mL See_Comment H [Autom ated = 4419448112) message] The system which generated this result transmitted reference range : <=125. The reference range was not used to interpret this result as normal/abnormal . ROSLYN (test code = ROSLYN) Biotin has been reported to cause a negative bias, interpret results relative to patient's use of biotin. Lab Interpretation Abnormal (test code = 11675-8) [facility] [id number] 17:21:08 Test Item Value Reference Range Interpretation Comments NT-proBNP (test code 3250 pg/mL See_Comment H [Autom ated = 8823804345) message] The system which generated this result transmitted reference range : <=125. The reference range was not used to interpret this result as normal/abnormal . ROSLYN (test code = ROSLYN) Biotin has been reported to cause a negative bias, interpret results relative to patient's use of biotin. Lab Interpretation Abnormal (test code = 81796-8) [facility] WITH [id number] 17:16:49 Test Item Value Reference Range Interpretation [...] RDW-SD (test code = 44.7 fL 38.5-51.6 42448-2) RDW-CV (test code = 13.7 % 12.1-15.4 788-0) PLT (test code = See_Comment [Automated 777-3) message] The system which generated this result transmit artem reference range : 150 - 328 10*3/ ?L. The reference range was not u sed to interpret th is result as normal/abnormal . MPV (test code = 12.5 fL 9.8-13 75543-6) NRBC/100 WBC (test See_Comment [Automat ed code = 3766359768) message] The system which generated this result transmit artem reference range : 0.0 - 10.0 /100 WBCs. The reference range was not used to interpret this result as normal/abnormal . NRBC x10^3 (test code See_Comment [Auto mated = 6066092345) message] The system which generated this result transmit artem reference range : 10*3/?L. The reference range was not used to interpret this result as normal/abnormal . GRAN MAT (NEUT) % 76.6 % (test code = 770-8) IMM GRAN % (test code 0.70 % = 7973457387) LYMPH % (test code = 13.8 % 736-9) MONO % (test code = 8.5 % 5905-5) EOS % (test code = 0.1 % 713-8) BASO % (test code = 0.3 % 706-2) GRAN MAT x10^3(ANC) 17.13 10*3/uL 1.99-6.95 H (test code = 0346669395) IMM GRAN x10^3 (test 0.16 10*3/uL 0-0.06 H code = 2004484613) LYMPH x10^3 (test code 3.10 10*3/uL 1.09-3.23 = 731-0) MONO x10^3 (test code 1.91 10*3/uL 0.36-1.02 H = 742-7) EOS x10^3 (test code = 0.06-0.53 L 711-2) BASO x10^3 (test code 0.07 10*3/uL 0.01-0.09 = 704-7) BANDS (test code = Increased A 2325527146) REACT LYMPHS (test Rare code = 7700950140) Lab Interpretation Abnormal (test code = 89595-8) [facility] WITH [id number] 17:16:49 Test Item Value Reference Range Interpretation [...] RDW-SD (test code = 44.7 fL 38.5-51.6 73661-6) RDW-CV (test code = 13.7 % 12.1-15.4 788-0) PLT (test code = See_Comment [Automated 777-3) message] The system which generated this result transmit artem reference range : 150 - 328 10*3/ ?L. The reference range was not u sed to interpret th is result as normal/abnormal . MPV (test code = 12.5 fL 9.8-13 96182-3) NRBC/100 WBC (test See_Comment [Automat ed code = 5618639942) message] The system which generated this result transmit artem reference range : 0.0 - 10.0 /100 WBCs. The reference range was not used to interpret this result as normal/abnormal . NRBC x10^3 (test code See_Comment [Auto mated = 0764482564) message] The system which generated this result transmit artem reference range : 10*3/?L. The reference range was not used to interpret this result as normal/abnormal . GRAN MAT (NEUT) % 76.6 % (test code = 770-8) IMM GRAN % (test code 0.70 % = 0671234086) LYMPH % (test code = 13.8 % 736-9) MONO % (test code = 8.5 % 5905-5) EOS % (test code = 0.1 % 713-8) BASO % (test code = 0.3 % 706-2) GRAN MAT x10^3(ANC) 17.13 10*3/uL 1.99-6.95 H (test code = 8025968988) IMM GRAN x10^3 (test 0.16 10*3/uL 0-0.06 H code = 9125428964) LYMPH x10^3 (test code 3.10 10*3/uL 1.09-3.23 = 731-0) MONO x10^3 (test code 1.91 10*3/uL 0.36-1.02 H = 742-7) EOS x10^3 (test code = 0.06-0.53 L 711-2) BASO x10^3 (test code 0.07 10*3/uL 0.01-0.09 = 704-7) BANDS (test code = Increased A 1157703474) REACT LYMPHS (test Rare code = 5974002792) Lab Interpretation Abnormal (test code = 46142-6) [facility] [id number] 16:42:04 Test Item Value Reference Interpretation Comments Range TROPONIN I (test 0.025 ng/mL See_Comment [Automated code = 1115354521) message] The system which generated this result transmitted reference range : <=0.034. The reference range was not used to interpret this result as normal/abnormal . ROLSYN (test code = Reference (Normal) ROSLYN) Range [...] biotin. Lab Interpretation Normal (test code = 48011-0) [facility] [id number] 16:42:04 Test Item Value Reference Interpretation Comments Range TROPONIN I (test 0.025 ng/mL See_Comment [Automated code = 7895964367) message] The system which generated this result [...] biotin. Lab Interpretation Normal (test code = 21061-4) [facility] Test Item Value Reference Range Interpretation Comments APTT Patient (test See_Comment [Automat ed code = 3173-2) message] The system which generated this result transmitted reference range : 23 - 38 Seconds . The reference range was not used to interpr et this result as normal/abnormal . ROSLYN (test code = ROSLYN) The [facility] patient population mean normal value for aPTT is 30 seconds. Lab Interpretation Normal (test code = 77402-1) [facility] 16:31:19 Test Item Value Reference Range Interpretation Comments APTT Patient (test See_Comment [Automat ed code = 3173-2) message] The system which generated this result transmitted reference range : 23 - 38 Seconds . The reference range was not used to interpr et this result as normal/abnormal . ROSLYN (test code = ROSLYN) The [facility] patient population mean normal value for aPTT is 30 seconds. Lab Interpretation Normal (test code = 00159-0) [facility] MET[facility]OLIC PANEL ([id number])2022-07-20 16:30:19 Test Item Value Reference Range Interpretation Comments NA (test code = 133 mmol/L 135-145 L 2494955523) K (test code = 5.3 mmol/L 3.5-5 H 8005836552) CL (test code = 98 mmol/L 98-108 4774765255) CO2 TOTAL (test code = 27 mmol/L 23-31 4826241893) AGAP (test code = 2-16 1175131727) BUN (test code = 13 mg/dL 7-23 9022995165) GLUCOSE (test code = 273 mg/dL 70-110 H 5737818426) CREATININE (test code = 0.62 mg/dL 0.6-1.25 3781712541) TOTAL BILI (test code = 2.1 mg/dL 0.1-1.1 H 8215390359) CALCIUM (test code = 8.6 mg/dL 8.6-10.6 8321988910) T PROTEIN (test code = 7.3 g/dL 6.3-8.2 2405101148) ALBUMIN (test code = 4.4 g/dL 3.5-5 5029419113) ALK PHOS (test code = 61 U/L 34-122 7359220005) ALTv (test code = 29 U/L 5-50 1742-6) AST(SGOT) (test code = 36 U/L 13-40 1265121345) eGFR (test code = mL/min/1.73m2 4657163540) ROSLYN (test code = ROSLYN) Association of [...] tests). Lab Interpretation Abnormal (test code = 93158-1) [facility]. METABOLIC PANEL ([id number])2022-07-20 16:30:19 Test Item Value Reference Range Interpretation Comments NA (test code = 133 mmol/L 135-145 L 8586279822) K (test code = 5.3 mmol/L 3.5-5 H 7811009310) CL (test code = 98 mmol/L 98-108 5829964936) CO2 TOTAL (test code = 27 mmol/L 23-31 6358510142) AGAP (test code = 2-16 7816831943) BUN (test code = 13 mg/dL 7-23 8861529062) GLUCOSE (test code = 273 mg/dL 70-110 H 6656681381) CREATININE (test code = 0.62 mg/dL 0.6-1.25 3353624783) TOTAL BILI (test code = 2.1 mg/dL 0.1-1.1 H 8996823680) CALCIUM (test code = 8.6 mg/dL 8.6-10.6 7689266935) T PROTEIN (test code = 7.3 g/dL 6.3-8.2 0966287331) ALBUMIN (test code = 4.4 g/dL 3.5-5 1534666108) ALK PHOS (test code = 61 U/L 34-122 4559115506) ALTv (test code = 29 U/L 5-50 2-6) AST(SGOT) (test code = 36 U/L 13-40 0099900837) eGFR (test code = mL/min/1.73m2 6071683020) ROSLYN (test code = ROSLYN) Association of [...] tests). Lab Interpretation Abnormal (test code = 79156-3) [facility] / [id number] 16:29:23 Test Item Value Reference Range Interpretation Comments PROTIME PATIENT (test See_Comment [Auto mated message] code = 5964-2) The system [employer] generated this result transmitted ref erence range: 12.0 - 1 4.7 Seconds. The re ference range was not u sed to interpret this result as normal/abnor mal. INR (test code = 6301-6) Nor mal INR <1.1; Warfarin Therap eutic range 2.0 to 3. 0 or 2.5 to 3.5, dep ending upon the indica tions. Lab Interpretation (test Normal code = 76242-5) [facility] / [id number] 16:29:23 Test Item Value Reference Range Interpretation Comments PROTIME PATIENT (test See_Comment [Auto mated message] code = 5964-2) The system [employer] generated this result transmitted ref erence range: 12.0 - 1 4.7 Seconds. The re ference range was not u sed to interpret this result as normal/abnor mal. INR (test code = 6301-6) Nor mal INR <1.1; Warfarin Therap eutic range 2.0 to 3. 0 or 2.5 to 3.5, dep ending upon the indica tions. Lab Interpretation (test Normal code = 17508-7) [facility]"
[2022-11-07 20:54] LABS: Absolute Lymphocytes (CBC) 3.3 K/uL (0.7-4.9); Hematocrit 46.8 % (39.6-49.0); Lymphocytes % 14.9 % (15.3-44.8); MPV 9.9 fL (7.6-11.3)
[2022-11-07 20:59] LABS: Protime INR 0.99
[2022-11-07 21:13] LABS: Albumin 3.6 g/dL (3.4-5.0); Bilirubin Direct 0.1 mg/dL (0-0.2); Bilirubin Total 0.4 mg/dL (0.2-1.0); Potassium 3.6 mmol/L (3.5-5.1); Protein, Total 7.5 g/dL (6.4-8.2)
--- NOTE | 2022-11-07 21:29 | RAD REPORT ---
EXAM DESCRIPTION: CT - Head C Spine Mpr Wo Con - 11/07/2022 9:03 pm CLINICAL HISTORY: Head and neck injury status post fall. Head and neck pain COMPARISON: None. TECHNIQUE: Computed axial tomography of the head and cervical spine was obtained. Sagittal and coronal reconstruction was performed. All CT scans are performed using dose optimization technique as appropriate and may include automated exposure control or mA/KV adjustment according to patient size. FINDINGS: An intracranial bleed is not seen. The ventricles are normal in caliber. An extra-axial fl uid collection is not noted.Fluid within the visualized sinuses and mastoids is not seen A cervical fracture is not visualized. No dislocation is noted. Large left posterolateral osteophytes C5-6 result in marked compression of the spinal cord IMPRESSION: No acute intracranial abnormality is seen. A cervical fracture is not visualized. If the patient continues to have symptoms to suggest intracra nial /spinal cord pathology then MRI would be recommended
[2022-11-07 21:36] LABS: Blood Morphology Comment NOT SEEN (NOT SEEN); Platelet Estimate ADEQ
--- NOTE | 2022-11-07 21:41 | RAD REPORT ---
EXAM DESCRIPTION: CT - Angio Aorta For Dissection - 11/07/2022 9:06 pm CLINICAL HISTORY: . Chest and abd pain lower extremity weakness COMPARISON: October 23, 2022 and August 2022 TECHNIQUE: Computed tomography angiography of the chest, abdomen pelvis were obtained. 100 cc Isovue 370 was administered intravenously. Coronal and sagittal reconstruction were performed. MIP 3D reconstruction was performed All CT scans are performed using dose optimization technique as appropriate and may include automated exposure control or mA/KV adjustment according to patient size. FINDINGS: An aortic dissection is not seen. An aortic aneurysm is not displayed. The celiac, SMA and HEAVENLY are patent . A lung consolidation is not present. A pericardial effusion is not seen. A pleural effusion is not no artem. Chronic appearing interstitial opacities left lower lobe. Centrilobular emphysema. The liver,spleen, pancreas,adrenals and kidneys demonstrate no significant abnormality. There no evidence diverticulitis. Normal appendix Mild gastric distention Mild anterior subluxation of L5 on S1. Spondylosis L5 IMPRESSION: Negative for an aortic dissection. Mild gastric distention
[2022-11-07 22:13] LABS: Urine Blood Negative (Negative); Urine Glucose 2+ (Negative); Urine Protein Negative (Negative); Urine pH 5.5 (5.0-7.0)
[2022-11-07 22:24] LABS: Urine Bacteria <20 /HPF (<20); Urine Mucus Slight /HPF (None Seen)
--- NOTE | 2022-11-07 22:50 | EDPHYS ---
Physician Documentation [facility] Name: José Pat Age: 72 yrs Sex: Male : 1950 Arrival Date: 11/07/2022 Time: 18:47 Bed 6 Private MD: ED Physician Denny Vaughan HPI: 11/07 19:58 This 72 yrs old Male presents to ER via Ambulatory with complaints of NUMBNESS OF LOWER sp3 EXT. 19:58 72-year-old male with history of atrial fibrillation, CHF, chronic chest pain, COPD, sp3 diabetes who was just discharged from the hospital yesterday now presents again for lower extremity weakness and is causing fall with possible head injury x2. Patient states on the second fall he was on the ground for "an hour". He denies any back pain, chest pain currently, abdominal pain and has no history of AAA or other vascular compromise. On review of systems, he denies headache, neck pain nausea, vomiting, diarrhea, focal neurodeficit, speech problems, memory problems, travel history, known sick contacts, any other aspect at this time.. Historical: - Allergies: 21:52 No Known Allergies; ha1 - PMHx: 19:23 Atrial fibrillation; CHF; Chronic Chest Pain; COPD; Diabetes - IDDM; Myocardial ll3 infarction; Noncompliance with medications; - Immunization history:: Client reports receiving the 2nd dose of the Covid vaccine. - Social history:: Smoking status: Patient reports the use of cigarette tobacco products, smokes one-half pack cigarettes per day. ROS: 20:00 Constitutional: Negative for fever, chills, and weight loss, Eyes: Negative for injury, sp3 pain, redness, and discharge, Neck: Negative for injury, pain, and swelling, Respiratory: Negative for shortness of breath, cough, wheezing, and pleuritic chest pain, Abdomen/GI: Negative for abdominal pain, nausea, vomiting, diarrhea, and constipation, Back: Negative for injury and pain, Skin: Negative for injury, rash, and discoloration, Psych: Negative for depression, anxiety, suicide ideation, homicidal ideation, and hallucinations, Allergy/Immunology: Negative for hives, rash, and allergies, Endocrine: Negative for neck swelling, polydipsia, polyuria, polyphagia, and marked weight changes, Hematologic/Lymphatic: Negative for swollen nodes, abnormal bleeding, and unusual bruising. 20:00 All other systems are negative. Exam: 20:00 Constitutional: This is a well developed, well nourished patient who is awake, alert, sp3 and in no acute distress. Head/Face: Normocephalic, atraumatic. Eyes: Pupils equal round and reactive to light, extra-ocular motions intact. Lids and lashes normal. Conjunctiva and sclera are non-icteric and not injected. Cornea within normal limits. Periorbital areas with no swelling, redness, or edema. Neck: Trachea midline, no thyromegaly or masses palpated, and no cervical lymphadenopathy. Supple, full range of motion without nuchal rigidity, or vertebral point tenderness. No Meningismus. Chest/axilla: Normal chest wall appearance and motion. Nontender with no deformity. No lesions are appreciated. Respiratory: Lungs have equal breath sounds bilaterally, clear to auscultation and percussion. No rales, rhonchi or wheezes noted. No increased work of breathing, no retractions or nasal flaring. Abdomen/GI: Soft, non-tender, with normal bowel sounds. No distension or tympany. No guarding or rebound. No evidence of tenderness throughout. Back: No spinal tenderness. No costovertebral tenderness. Full range of motion. Skin: Warm, dry with normal turgor. Normal color with no rashes, no lesions, and no evidence of cellulitis. MS/ Extremity: Pulses equal, no cyanosis. Neurovascular intact. Full, normal range of motion. Neuro: Awake and alert, GCS 15, oriented to person, place, time, and situation. Cranial nerves II-XII grossly intact. Motor strength 5/5 in all extremities. Sensory grossly intact. Cerebellar exam normal. Normal gait. Psych: Awake, alert, with orientation to person, place and time. Behavior, mood, and affect are within normal limits. 20:00 Cardiovascular: Rate: tachycardic, Rhythm: irregularly irregular. 20:00 ECG was reviewed by the Attending Physician. KG demonstrates atrial fibrillation at a rate of 110 bpm with known old left bundle branch block without any concordance sgarbossa criteria are negative. Vital Signs: 19:19 BP 123 / 87; Pulse 77; Resp 24; Temp 97.9(O); Pulse Ox 94% on R/A; Weight 94.35 kg (R); ll3 Height 5 ft. 7 in. (170.18 cm) (R); Pain 6/10; 19:25 BP 107 / 72; Pulse 110; Resp 19 S; Pulse Ox 94% on R/A; ha1 21:40 BP 120 / 80; Pulse 109; Resp 19 S; Pulse Ox 92% on R/A; as6 23:00 BP 114 / 72; Pulse 92; Resp 19 S; Pulse Ox 95% on R/A; as6 11/08 00:23 BP 113 / 72; Pulse 100; Resp 22 S; Pulse Ox 94% on R/A; as6 11/07 19:19 Body Mass Index 32.58 (94.35 kg, 170.18 cm) ll3 MDM: 11/07 19:36 Patient medically screened. sp3 20:01 Data reviewed: vital signs, nurses notes. ED course: 72-year-old male with complex sp3 medical history now presents with lower extremity weakness. Diagnosis includes AAA, aortic dissection, CVA metabolic disorder, functional musculoskeletal weakness. Work-up to include laboratory values, CT scan of the head and C-spine secondary to his fall from a trauma standpoint, CT of the abdomen assessing aorta, EKG and chest x-ray. If work-up is negative, will let patient go home. Currently his neurological exam demonstrates no significant abnormality other than possible 4/5 strength in his lower extremities which is likely his baseline.. 22:48 ED course: CT scans are negative. Urine shows UTI/pyelonephritis. WBC count is 23,000. sp3 Pt readmitted. . 11/07 19:35 Order name: Basic Metabolic Panel; Complete Time: 21:20 sp3 11/07 19:35 Order name: CBC with Diff; Complete Time: 21:58 sp3 11/07 19:35 Order name: LFT's; Complete Time: 21:20 sp3 11/07 19:35 Order name: NT PRO-BNP; Complete Time: 21:20 sp3 11/07 19:35 Order name: PT-INR; Complete Time: 21:01 sp3 11/07 19:35 Order name: Troponin HS; Complete Time: 21:20 sp3 11/07 21:36 Order name: Manual Differential; Complete Time: 21:58 EDMS 11/07 21:59 Order name: Urine Microscopic Only; Complete Time: 22:46 [facility] 11/07 22:13 Order name: Urine Dipstick-Ancillary; Complete Time: 22:25 EDSD 11/07 22:29 Order name: Urine Culture [facility] 11/07 22:47 Order name: Blood Culture Adult (2) [facility] 11/07 22:47 Order name: Urine Culture [facility] 11/07 23:24 Order name: SARS-COV-2 Antigen Rapid 11/08 00:26 Order name: SARS-COV-2 Antigen Rapid [facility] 11/07 19:35 Order name: XRAY Chest (1 view) [facility] 11/07 19:35 Order name: EKG; Complete Time: 19:36 [facility] 11/07 19:35 Order name: Cardiac monitoring; Complete Time: 20:05 [facility] 11/07 19:35 Order name: EKG - Nurse/Tech; Complete Time: 20:05 [facility] 11/07 19:35 Order name: IV Saline Lock; Complete Time: 20:55 [facility] 11/07 19:35 Order name: Labs collected and sent; Complete Time: 20:55 [facility] 11/07 19:35 Order name: O2 Per Protocol; Complete Time: 20:05 [facility] 11/07 19:35 Order name: O2 Sat Monitoring; Complete Time: 20:05 [facility] 11/07 19:35 Order name: CT Head C Spine; Complete Time: 21:58 [facility] 11/07 19:39 Order name: CT Aorta for Dissection [facility] 11/07 19:43 Order name: Angio Aorta For Dissection; Complete Time: 21:58 [facility] 11/07 21:59 Order name: Urine Dipstick-Ancillary (obtain specimen); Complete Time: 22:13 [facility] Administered Medications: 11/08 00:22 Drug: Rocephin (cefTRIAXone) 1 grams Route: IV; Rate: calculated rate; Site: left as6 antecubital; 00:48 Follow up: Response: No adverse reaction; IV Status: Completed infusion; IV Intake: [id number] Disposition Summary: 11/07/22 22:49 Hospitalization Ordered Hospitalization Status: Inpatient Admission sp3 Provider: Tim Chaidez sp3 Location: Telemetry/MedSur (Inpatient) sp3 Condition: Stable sp3 Problem: an acute exacerbation sp3 Symptoms: are unchanged sp3 Bed/Room Type: Standard sp3 Room Assignment: 216(11/08/22 00:47) norma Diagnosis - Pyelonephritis acute sp3 Forms: - Medication Reconciliation Form sp3 - SBAR form sp3 Signatures: Dispatcher [employer] EDMaru Ontiveros RN RN mw Patel, Setul, MD MD sp3 Tiburcio Odell RN RN as6 Katerin Live RN RN ll3 Maxine Coronel RN RN ha1 Corrections: (The following items were deleted from the chart) 00:47 11/07 22:49 sp3 norma
--- NOTE | 2022-11-07 22:50 | ER ---
Nurse's Notes [facility] Name: José Pat Age: 72 yrs Sex: Male : 1950 Arrival Date: 11/07/2022 Time: 18:47 Bed 6 Private MD: Diagnosis: Pyelonephritis acute Presentation: 11/07 19:19 Chief complaint: Patient states: C/o bilateral leg weakness, states fell twice today, ll3 denies hitting head, + LOC both times, states got discharged from the hospital yesterday, pt c/o neck pain 04/19. Coronavirus screen: Vaccine status: Patient reports receiving the 2nd dose of the covid vaccine. At this time, the client does not indicate any symptoms associated with coronavirus-19. Ebola Screen: No symptoms or risks identified at this time. Initial Sepsis Screen: Does the patient meet any 2 criteria? RR > 20 per min. HR > 90 bpm. Yes Does the patient have a suspected source of infection? No. Patient's initial sepsis screen is negative. Risk Assessment: Do you want to hurt yourself or someone else? Patient reports no desire to harm self or others. Onset of symptoms was November 07, 2022. 19:19 Method Of Arrival: Ambulatory ll3 19:19 Acuity: KIT 3 ll3 Historical: - Allergies: 21:52 No Known Allergies; ha1 - PMHx: 19:23 Atrial fibrillation; CHF; Chronic Chest Pain; COPD; Diabetes - IDDM; Myocardial ll3 infarction; Noncompliance with medications; - Immunization history:: Client reports receiving the 2nd dose of the Covid vaccine. - Social history:: Smoking status: Patient reports the use of cigarette tobacco products, smokes one-half pack cigarettes per day. Screenin:12 Abuse screen: Denies threats or abuse. Denies injuries from another. Nutritional ha1 screening: No deficits noted. Tuberculosis screening: No symptoms or risk factors identified. 11/08 00:24 [facility] ED Fall Risk Assessment (Adult) History of falling in the last 3 months, as6 including since admission Yes- fall prone (multiple falls) (3 pts) Confusion or Disorientation No (0 pts) Intoxicated or Sedated No (0 pts) Impaired Gait Yes (1 pt) Mobility Assist Device Used Yes (1 pt) Altered Elimination No (0 pt) Score/Fall Risk Level 3 or more points = High Risk Oriented to surroundings, Maintained a safe environment, Educated pt \T\ family on fall prevention, incl call for assistance when getting out of bed, Hourly rounding (assess needs \T\ fall precautionary measures) done, Used ambulatory aids as needed (educated on \T\ assisted with). Assessment: 11/07 19:25 General: Appears uncomfortable, Behavior is cooperative. Pain: Denies pain. Pain: ha1 Complains of pain in back of neck Pain does not radiate. Pain currently is 6 out of 10 on a pain scale. Quality of pain is described as throbbing. Neuro: Level of Consciousness is awake, alert, obeys commands, Oriented to person, place, time, situation. Cardiovascular: Capillary refill < 3 seconds Patient's skin is warm and dry. Respiratory: Airway is patent Respiratory effort is even, unlabored, Respiratory pattern is regular, symmetrical. GI: No signs and/or symptoms were reported involving the gastrointestinal system. Abdomen is non-distended, obese. : No signs and/or symptoms were reported regarding the genitourinary system. EENT: No signs and/or symptoms were reported regarding the EENT system. Derm: Skin is pink, warm \T\ dry. Musculoskeletal: Reports numbness in right leg and left leg. 20:25 Reassessment: Patient and/or family updated on plan of care and expected duration. Pain ha1 level reassessed. Patient is alert, oriented x 3, equal unlabored respirations, skin warm/dry/pink. 21:40 Reassessment: Patient appears in no apparent distress at this time. as6 Vital Signs: 19:19 BP 123 / 87; Pulse 77; Resp 24; Temp 97.9(O); Pulse Ox 94% on R/A; Weight 94.35 kg (R); ll3 Height 5 ft. 7 in. (170.18 cm) (R); Pain 6/10; 19:25 BP 107 / 72; Pulse 110; Resp 19 S; Pulse Ox 94% on R/A; ha1 21:40 BP 120 / 80; Pulse 109; Resp 19 S; Pulse Ox 92% on R/A; as6 23:00 BP 114 / 72; Pulse 92; Resp 19 S; Pulse Ox 95% on R/A; as6 11/08 00:23 BP 113 / 72; Pulse 100; Resp 22 S; Pulse Ox 94% on R/A; as6 11/07 19:19 Body Mass Index 32.58 (94.35 kg, 170.18 cm) ll3 ED Course: 11/07 18:47 Patient arrived in ED. jj6 19:23 Triage completed. ll3 19:23 Arm band placed on. ll3 19:31 Denny Vaughan MD is Attending Physician. sp3 19:35 Tiburcio Odell, RN is Primary Nurse. as6 20:00 XRAY Chest (1 view) In Process Unspecified. EDMS 20:46 Initial lab(s) drawn, by me, sent to lab. Inserted saline lock: 20 gauge in left tw5 antecubital area, using aseptic technique. Blood collected. 21:05 CT Head C Spine In Process Unspecified. EDMS 21:08 Angio Aorta For Dissection In Process Unspecified. EDMS 22:13 Urine Microscopic Only Sent. as6 22:49 Tim Chaidez is Hospitalizing Provider. sp3 11/08 00:24 Placed in gown. Bed in low position. Call light in reach. Side rails up X 1. as6 00:47 No provider procedures requiring assistance completed. Patient admitted, IV remains in as6 place. Administered Medications: 00:22 Drug: Rocephin (cefTRIAXone) 1 grams Route: IV; Rate: calculated rate; Site: left as6 antecubital; 00:48 Follow up: Response: No adverse reaction; IV Status: Completed infusion; IV Intake: [id number] Medication: 00:24 VIS not applicable for this client. as6 Intake: 00:48 IV: 50ml; Total: 50ml. as6 Outcome: 11/07 22:49 Decision to Hospitalize by Provider. sp3 11/08 00:47 Condition: stable as6 Instructed on the need for admit. 01:29 Admitted to Med/surg accompanied by nurse, accompanied by tech, family with patient, as6 via stretcher, with chart, Report called to Tamika SALVADOR 01:34 Patient left the ED. as6 Signatures: Dispatcher [employer] EDMS Denny Vaughan MD MD sp3 Maday Hawk tw5 Tatianna Dowd jj6 Tiburcio Odell, RN RN as6 Katerin Live RN RN 3 Maxine Coronel RN RN ha1 Corrections: (The following items were deleted from the chart) 11/07 19:24 19:19 BP 123 / 87; Pulse 114bpm; Resp 24bpm; Pulse Ox 94% RA; Temp 97.9F Oral; 94.35 kg ll3 Reported; Height 5 ft. 7 in. Reported; BMI: 32.5; Pain 6/10; ll3
--- NOTE | 2022-11-07 23:14 | P.HP ---
Certification for Inpatient Patient admitted to: Inpatient With expected LOS: <2 Midnights Patient will require the following post-hospital care: None Practitioner: I am a practitioner with admitting privileges, knowledge of patient current condition, hospital course, and medical plan of care. Services: Services provided to patient in accordance with Admission requirements found in Title 42 Section 412.3 of the Code of Federal Regulations Patient History Date of Service: 11/08/22 Reason for admission: UTI, Weakness History of Present Illness: Patient is a 72-year-old male with history of chronic diastolic CHF, atrial fibrillation on chronic anticoagulation, diabetes mellitus type 2insulin- dependent, COPD, and tobacco abuse presents emergency department with complaints of falls secondary to bilateral leg weakness. Patient was just discharged from this facility 2 days ago after ACS rule out. His labs are significant for WBC 22.4, CO2 33, BUN 22, BNP 844. Urine positive for UTI. CT head/spine/chest negative for acute findings except mild gastric distension. He was started on Rocephin in emergency department. ED provider wishes admit patient for further management of UTI given significant leukocytosis. Allergies No Known Allergies Allergy (Verified 06/10/22 22:17) Home medications list reviewed: Yes Home Medications: Aspirin [Aspirin EC 81 MG] 81 mg PO DAILY #30 tablet. 07/04/22 Apixaban [Eliquis] 5 mg PO BID #60 tab 10/09/22 Atorvastatin Calcium [Lipitor] 40 mg PO BEDTIME #30 tab 10/09/22 Digoxin 125 mcg PO DAILY #30 tab 10/09/22 Fluticasone/Umeclidin/Vilanter [Trelegy Ellipta 200-62.5-25] 1 each IH DAILY 30 Days #1 kit 10/24/22 Furosemide [Lasix*] 40 mg PO DAILY #10 tab 10/24/22 Albuterol Neb [Proventil 0.083% Neb Soln] 2.5 mg NEB [id number] PRN #120 amp 11/06/22 Ipratropium Neb [Atrovent*] 0.5 mg IH Q6H #120 amp 11/06/22 Nebulizer 1 each QID #1 kit 11/06/22 predniSONE [Prednisone*] 20 mg PO DAILY #5 tab 11/06/22 - Past Medical/Surgical History Diabetic: Yes -: DIVERTICULITIS -: COPD -: A. fib -: Diastolic CHF -: Diabetes mellitus type 2 -: Hypertension -: Hyperlipidemia -: Colostomy and reversal Psychosocial/ Personal History: Patient lives at home with his - Family History Father Notes: mesothelioma Mother -: Heart disease, Hypertension - Social History Smoking Status: Current every day smoker Alcohol use: No CD- Drugs: No Caffeine use: Yes Place of Residence: Home Review of Systems General: Weakness Physical Examination - Physical Exam General: Alert, In no apparent distress HEENT: Atraumatic, PERRLA, EOMI, Sclerae nonicteric Neck: Supple, 2+ carotid pulse no bruit, No LAD, Without JVD or thyroid abnormality Respiratory: Clear to auscultation bilaterally, Normal air movement Cardiovascular: Regular rate/rhythm, Normal S1 S2 Gastrointestinal: Normal bowel sounds, No tenderness Musculoskeletal: No tenderness Integumentary: No rashes Neurological: Normal speech, Normal affect, Abnormal strength - Studies Laboratory Data (last 24 hrs) 11/07/22 20:40: PT 10.9, INR 0.99 11/07/22 20:40: WBC 22.40 H*, Hgb 15.6, Hct 46.8, Plt Count 215 11/07/22 20:40: Sodium 141, Potassium 3.6, BUN 22 H, Creatinine 0.99, Glucose 1 91 H, Total Bilirubin 0.4, AST 7 L, ALT 19, Alkaline Phosphatase 76 Assessment and Plan - Problems (Diagnosis) (1) UTI (urinary tract infection) Current Visit: Yes Status: Acute Qualifiers: Urinary tract infection type: acute cystitis Hematuria presence: without hematuria Qualified Code(s): N30.00 - Acute cystitis without hematuria (2) Generalized weakness Current Visit: Yes Status: Acute (3) Afib Current Visit: Yes Status: Chronic Qualifiers: Atrial fibrillation type: paroxysmal Qualified Code(s): I48.0 - Paroxysmal atrial fibrillation (4) CHF (congestive heart failure) Current Visit: Yes Status: Chronic Qualifiers: Heart failure type: systolic Heart failure chronicity: chronic Qualified Code(s): I50.22 - Chronic systolic (congestive) heart failure (5) COPD (chronic obstructive pulmonary disease) Current Visit: Yes Status: Chronic Qualifiers: COPD type: emphysema Emphysema type: unspecified Qualified Code(s): J43.9 - Emphysema, unspecified (6) Type 2 diabetes mellitus Current Visit: Yes Status: Chronic Qualifiers: Diabetes mellitus penitentiary insulin use: with adjunct faculty for medical terminology use Diabetes mellitus complication status: with hyperglycemia Qualified Code(s): E11.65 - Type 2 diabetes mellitus with hyperglycemia; 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 He meets sepsis criteria with source + leukocytosis + tachycardia, although patient has been in and out of afib (chronic). Continue rocephin for UTI. Urine and blood cultures obtained. Previous cultures of group b strep and ecoli with pansensitivity. Physical therapy consult to further assess weakness. Imaging negative. ACHS accu checks with mild sliding scale and diabetic diet. Monitor and replete electrolytes per protocol. Reconcile and continue home medications. Eliquis for VTE ppx. Full code. Discharge Plan: Home Plan to discharge in: 48 Hours - Advance Directives Does patient have a Living Will: No Does patient have a Durable POA for Healthcare: No - Code Status/Comfort Care Code Status Assessed: Yes Code Status: Full Code Physician Review: Patient Assessed, Agree with Above Assessment and Plan Critical Care: No Time Spent Managing Pts Care (In Minutes): 50
[2022-11-07] MEDS ORDERED: NA CHLORIDE 0.9% 1,000 ML IV SCH (23:45)
[2022-11-08] MEDS ORDERED: NA CHLORIDE 0.9% 50 ML IV ONE (00:22)
[2022-11-08] MEDS ORDERED: CEFTRIAXONE 1000 MG/VIAL ONE (00:22)
[2022-11-08 00:26] LABS: SARS-CoV-2 Antigen Rapid Res Negative (Negative)
[2022-11-08] MEDS ORDERED: ONDANSETRON 4 MG/2 ML VIAL IV PRN (01:53)
[2022-11-08] MEDS ORDERED: ALBUTEROL 2.5 MG/3 ML NEB SOL NEB PRN ×2 (01:53→14:14)
[2022-11-08] MEDS ORDERED: ACETAMINOPHEN 500 MG TAB PO PRN (01:53)
[2022-11-08 03:38] LABS: Absolute Lymphocytes (CBC) 3.4 K/uL (0.7-4.9); Hematocrit 43.5 % (39.6-49.0); Lymphocytes % 20.4 % (15.3-44.8); MCV 90.9 fL (80-100); MPV 9.6 fL (7.6-11.3); RBC Red Blood Cell Count 4.78 M/uL (4.33-5.43)
[2022-11-08 03:53] LABS: Magnesium 2.1 mg/dL (1.6-2.4); Phosphorus 2.9 mg/dL (2.5-4.9); Potassium 3.9 mmol/L (3.5-5.1)
[2022-11-08 04:44] VITALS: BMI 33.3
[2022-11-08] MEDS: INSULIN -REGULAR HUMAN 50 UNIT/0.5 ML ML SQ SCH ×4 (09:37→20:37)
[2022-11-08] MEDS: CEFTRIAXONE 1,000 MG in NA CHLORIDE 0.9% 50 ML IVPB SCH ×2 (09:38→09:39)
[2022-11-08] MEDS: APIXABAN 5 MG TABLET PO SCH ×2 (09:43→20:37)
[2022-11-08 11:22] LABS: Urine Bacteria <20 /HPF (<20); Urine Bilirubin NEGATIVE (Negative); Urine Blood Negative (Negative); Urine Clarity Clear (Clear); Urine Color Colorless (Yellow); Urine Glucose NEGATIVE (Negative); Urine Protein NEGATIVE (Negative); Urine RBC <5 /HPF (None Seen); Urine Urobilinogen Normal (Normal); Urine Yeast with Hyphae Trace /HPF (None Seen); Urine pH 6.5 (5.0-7.0)
--- NOTE | 2022-11-08 14:14 | P.PN ---
Subjective Date of Service: 11/08/22 Chief Complaint: UTI, Weakness Patient states he feels much better today. Leukocytosis trended down. No recorded fever. He denies shortness of breath. He finished his breakfast. Physical Examination - Vital Signs Temperature: 97.6 F Blood Pressure: 119/75 Pulse: 92 Respirations: 14 Pulse Ox (%): 93 - Physical Exam General: Alert, In no apparent distress, Oriented x3 HEENT: Mucous membr. moist/pink, Sclerae nonicteric Neck: Supple, JVD not distended Respiratory: Normal air movement, Expiratory wheezes (Mild scattered wheezes) Cardiovascular: Normal S1 S2, Edema (Bilateral lower extremities), Irregular heart rate/rhythm Gastrointestinal: Soft and benign, Non-distended Musculoskeletal: No swelling Integumentary: No cyanosis Neurological: Normal strength at 5/5 x4 extr - Studies Laboratory Data (last 24 hrs) 11/07/22 20:40: PT 10.9, INR 0.99 11/07/22 20:40: WBC 22.40 H*, Hgb 15.6, Hct 46.8, Plt Count 215 11/07/22 20:40: Sodium 141, Potassium 3.6, BUN 22 H, Creatinine 0.99, Glucose 191 H, Total Bilirubin 0.4, AST 7 L, ALT 19, Alkaline Phosphatase 76 Assessment And Plan - Current Problems (Diagnosis) (1) Generalized weakness Current Visit: Yes Status: Acute (2) Sepsis Current Visit: Yes Status: Acute Qualifiers: Sepsis type: sepsis due to unspecified organism Sepsis acute organ dysfunction status: without acute organ dysfunction Qualified Code(s): A41.9 - Sepsis, unspecified organism (3) UTI (urinary tract infection) Current Visit: Yes Status: Acute Qualifiers: Urinary tract infection type: acute cystitis Hematuria presence: without hematuria Qualified Code(s): N30.00 - Acute cystitis without hematuria (4) Afib Current Visit: Yes Status: Chronic Qualifiers: Atrial fibrillation type: paroxysmal Qualified Code(s): I48.0 - Paroxysmal atrial fibrillation (5) COPD (chronic obstructive pulmonary disease) Current Visit: Yes Status: Chronic Qualifiers: COPD type: emphysema Emphysema type: unspecified Qualified Code(s): J43.9 - Emphysema, unspecified (6) Type 2 diabetes mellitus Current Visit: Yes Status: Chronic Qualifiers: Diabetes mellitus termite inspector insulin use: with skilled nursing use Diabetes mellitus complication status: with hyperglycemia Qualified Code(s): E11.65 - Type 2 diabetes mellitus with hyperglycemia; 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 Continue antibiotics. Leukocytosis is trending down. Follow blood cultures and urine culture Bronchodilators for COPD. Continue home dose Lasix for systolic heart failure. Insulin sliding scale for glucose management. PT evaluation. Physician Review: Patient Assessed, Agree with Above Assessment and Plan
--- NOTE | 2022-11-08 14:51 | EKG ---
Test Date: 2022-11-07 Test Time: 19:45:44 Pharmacy Manager: RV MEASUREMENT RESULTS: Intervals: Rate: 110 OK: 196 QRSD: 150 QT: 392 QTc: 530 [place]: P: -26 OK: 196 QRS: -88 T: 70 INTERPRETIVE STATEMENTS: Sinus tachycardia Left axis deviation Right bundle branch block Inferior infarct, age undetermined Anteroseptal infarct, age undetermined Abnormal ECG Compared to ECG 11/05/2022 15:12:49 Left-axis deviation now present Myocardial infarct finding still present Electronically Signed On 11-08-22 14:50:24 NATURALIST by Gianluca Garcia
[2022-11-08] MEDS: IPRATROPIUM BROM 0.5MG/2.5ML NEB SCH ×2 (15:00→20:00)
[2022-11-08] MEDS ORDERED: ATORVASTATIN 40 MG TAB PO SCH (21:00)
[2022-11-09] MEDS: IPRATROPIUM BROM 0.5MG/2.5ML NEB SCH ×2 (01:55→08:20)
[2022-11-09 06:30] LABS: Absolute Lymphocytes (CBC) 2.2 K/uL (0.7-4.9); Hematocrit 46.2 % (39.6-49.0); Lymphocytes % 18.3 % (15.3-44.8); MCV 90.3 fL (80-100); MPV 9.8 fL (7.6-11.3); RBC Red Blood Cell Count 5.12 M/uL (4.33-5.43)
[2022-11-09 06:48] LABS: Potassium 3.9 mmol/L (3.5-5.1)
[2022-11-09] MEDS: APIXABAN 5 MG TABLET PO SCH (08:50)
[2022-11-09] MEDS: INSULIN -REGULAR HUMAN 50 UNIT/0.5 ML ML SQ SCH ×2 (08:54→12:15)
[2022-11-09] MEDS ORDERED: DIGOXIN 0.125 MG TABLET PO SCH (09:00)
[2022-11-09] MEDS ORDERED: ASPIRIN EC 81 MG TAB PO SCH (09:00)
[2022-11-09] MEDS ORDERED: FUROSEMIDE 40 MG TABLET PO SCH (09:00)
[2022-11-09] MEDS ORDERED: HOME MED 1 EA UNK (Fluticasone/Umeclidin/Vilanter [Trelegy Ellipta 200-62.5-25] Blst.W.Dev IH SCH (09:00)
[2022-11-09 09:50] VITALS: O2SAT 97
--- NOTE | 2022-11-09 11:27 | P.DS ---
Admission Date: 11/07/22 Discharge Date: 11/09/22 Disposition: DC HOME/HOME HEALTH CARE Discharge Condition: FAIR Reason for Admission: UTI, Weakness - Problems (1) Generalized weakness Current Visit: Yes Status: Acute (2) Sepsis Current Visit: Yes Status: Acute Qualifiers: Sepsis type: sepsis due to unspecified organism Sepsis acute organ dysfunction status: without acute organ dysfunction Qualified Code(s): A41.9 - Sepsis, unspecified organism (3) UTI (urinary tract infection) Current Visit: Yes Status: Acute Qualifiers: Urinary tract infection type: acute cystitis Hematuria presence: without hematuria Qualified Code(s): N30.00 - Acute cystitis without hematuria (4) Afib Current Visit: Yes Status: Chronic Qualifiers: Atrial fibrillation type: paroxysmal Qualified Code(s): I48.0 - Paroxysmal atrial fibrillation (5) COPD (chronic obstructive pulmonary disease) Current Visit: Yes Status: Chronic Qualifiers: COPD type: emphysema Emphysema type: unspecified Qualified Code(s): J43.9 - Emphysema, unspecified (6) Type 2 diabetes mellitus Current Visit: Yes Status: Chronic Qualifiers: Diabetes mellitus long distance operator insulin use: with long distance operator use Diabetes mellitus complication status: with hyperglycemia Qualified Code(s): E11.65 - Type 2 diabetes mellitus with hyperglycemia; Z79.4 - exterminator (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 Patient was just disch arged from this facility 2 days ago after ACS rule out. His labs are significant for WBC 22.4, CO2 33, BUN 22, BNP 844. Urine positive for UTI. CT head/spine/chest negative for acute findings except mild gastric distension. He was started on Rocephin in emergency department and patient admitted for further management. Hospital Course: Patient admitted to the medical floor and treated with IV Rocephin for UTI. His leukocytosis resolved. Patient was asymptomatic during the hospital stay. Urine culture grew yeast. He was seen and evaluated by physical therapy, p atient ambulated about 200 feet with assistance. He tolerated his diet. He also denied any shortness of breath. He was maintained on his home oxygen. Patient currently asymptomatic, clinically improved and deemed stable for discharge. Antibiotic and antifungal prescribed on discharge. Please see discharge medications below. Vital Signs/Physical Exam: Temp Pulse Resp BP Pulse Ox 97.1 F 105 H 18 110/75 93 11/09/22 08:00 11/09/22 08:49 11/09/22 08:00 11/09/22 08:49 11/09/22 08:00 General: Alert, In no apparent distress, Oriented x3 HEENT: Mucous membr. moist/pink Neck: JVD not distended Respiratory: Clear to auscultation bilaterally, Normal air movement Cardiovascular: No edema, Normal S1 S2, Irregular heart rate/rhythm Gastrointestinal: Soft and benign, Non-distended, No tenderness Musculoskeletal: No swelling Neurological: Normal strength at 5/5 x4 extr Laboratory Data at Discharge: WBC 11.80 K/uL (4.3-10.9) H 11/09/22 06:11 Hgb 15.6 g/dL (13.6-17.9) 11/09/22 06:11 Hct 46.2 % (39.6-49.0) 11/09/22 06:11 Plt Count 178 K/uL (152-406) 11/09/22 06:11 PT 10.9 SECONDS (9.5-12.5) 11/07/22 20:40 INR 0.99 11/07/22 20:40 Sodium 139 mmol/L (136-145) 11/09/22 06:11 Potassium 3.9 mmol/L (3.5-5.1) 11/09/22 06:11 BUN 13 mg/dL (7-18) 11/09/22 06:11 Creatinine 0.83 mg/dL (0.70-1.30) 11/09/22 06:11 Glucose 192 mg/dL (74-106) H 11/09/22 06:11 Phosphorus 2.9 mg/dL (2.5-4.9) 11/08/22 03:09 Magnesium 2.1 mg/dL (1.6-2.4) 11/08/22 03:09 Total Bilirubin 0.4 mg/dL (0.2-1.0) 11/07/22 20:40 AST 7 U/L (15-37) L 11/07/22 20:40 ALT 19 U/L (16-61) 11/07/22 20:40 Alkaline Phosphatase 76 U/L (45-117) 11/07/22 20:40 Home Medications: Aspirin [Aspirin EC 81 MG] 81 mg PO DAILY #30 tablet. 07/04/22 Apixaban [Eliquis] 5 mg PO BID #60 tab 10/09/22 Atorvastatin Calcium [Lipitor] 40 mg PO BEDTIME #30 tab 10/09/22 Digoxin 125 mcg PO DAILY #30 tab 10/09/22 Fluticasone/Umeclidin/Vilanter [Trelegy Ellipta 200-62.5-25] 1 each IH DAILY 30 Days #1 kit 10/24/22 Furosemide [Lasix*] 40 mg PO DAILY #10 tab 10/24/22 Albuterol Neb [Proventil 0.083% Neb Soln] 2.5 mg NEB [id number] PRN #120 amp 11/06/22 Ipratropium Neb [Atrovent*] 0.5 mg IH Q6H #120 amp 11/06/22 predniSONE [Prednisone*] 20 mg PO DAILY #5 tab 11/06/22 Cefpodoxime Proxetil 200 mg PO BID #24 tab 11/09/22 Fluconazole [Diflucan] 200 mg PO DAILY #14 tab 11/09/22 Nebulizer 1 each QID #1 kit 11/09/22 New Medications: Cefpodoxime Proxetil 200 mg PO BID #24 tab Fluconazole [Diflucan] 200 mg PO DAILY #14 tab Nebulizer 1 each QID #1 kit Diet: AHA Activity: Fall precautions Followup: NONE,NONE [Primary Care Provider] - Time spent managing pt's care (in minutes): 32
[2022-11-09 12:42] VITALS: BP 117/59; TEMP 97.7
== END 2022-11-09 12:18 | disposition home health service (06) | DRG 872 ==
LOC: ER 18:39 → ERHOLD 23:05 → 2ND 11-08 01:16
PROVIDERS: ADMIT Internal Medicine; ATTEND Internal Medicine
DX: A41.9 Sepsis, unspecified organism (principal); B37.41 Candidal cystitis and urethritis; I50.22 Chronic systolic (congestive) heart failure; J43.9 Emphysema, unspecified; Z72.0 Tobacco use; I48.91 Unspecified atrial fibrillation; Z79.01 Long term (current) use of anticoagulants; E11.65 Type 2 diabetes mellitus with hyperglycemia; Z79.4 Long term (current) use of insulin; I25.2 Old myocardial infarction; E78.5 Hyperlipidemia, unspecified; I11.0 Hypertensive heart disease with heart failure
CPT/HCPCS: 36415; 70450; 71045; 71275; 72125; 74175; 80048; 80076; 81001; 81003; 81015; 82947; 83690; 83735; 83880; 84100; 84484; 85025; 85379; 85610; 87040; 87086; 87088; 87811; 93005; 94760; 96365; 96372; 97116; 97161; 99285; G0378; J1650; J1815; J1940; J2270; J2405; J2920; J2930; J7030; J7040; J7614; J7644; Q9967

== ENCOUNTER 2022-11-16 16:07 | Observation (INO) | payer OTHER ==
--- OUTSIDE RECORDS SUMMARY | 2022-11-16 16:15 | XMS REPORT | Continuity of Care Document ---
:1950 Author Organization [facility] t Address [address] [place] [address] Care Team Providers Name Role Phone Pcp, Patient Does Not Have A Primary Care Physician [phone] Attending Clinician Unavailable Meghana Ayala Attending Clinician Unavailable Jose Kim Rahil Attending Clinician Unavailable Cristian SALVADOR, [place] Attending Clinician Unavailable Charlene Butt DO Attending Clinician Atul Stephens MD Attending Clinician Berna Alcantar MD Attending Clinician [phone] BERNA ALCANTAR Attending Clinician Unavailable Orlando Cannon MD Attending Clinician [id number] Admitting Clinician Unavailable Jose Kim Rahil Admitting Clinician Unavailable Berna Alcantar MD Admitting Clinician [phone] BERNA ALCANTAR Admitting Clinician Unavailable Payers Payer Name Policy Type Policy Number Effective Date Expiration Date S cindy [facility] [id number] Problems Condition Condition Condition Status Onset Resolution Last Treating Co mments Source Name Details Category Date Date Treatment Clinician Date Acute on Acute on Disease Active Unive rs chronic chronic 9-11 ity of combined combined 00:00: [place] systolic systolic 00 Medica l and and [...] diabetes 07-21 ity of mellitus mellitus 00:00: [place] without without 00 Medical complicati complicati Br [...] Added automatic ally from request for surgery [id number] CHF CHF Problem Active Common (congestiv (congestiv Sp anabela e heart e heart - [facility]I failure) failure) [facility] Hypertensi Hypertensi Problem Active C ommon on on Spirit - [facility] Diabetes Diabetes Problem Active Commo n type 2, type 2, Spirit controlled controlled - [facility] COPD COPD Problem Active Common (chronic (chronic Spirit obstructiv obstructiv - [facility] e e St pulmonary pulmonary [place] s disease) disease) [facility] Nicotine Nicotine Problem Active Commo n dependence dependence Sp anabela - [facility] Seasonal Seasonal Problem Active Commo n allergic allergic Spirit rhinitis rhinitis - [facility] Adjustment Adjustment Problem Active C ommon disorder disorder Spirit with with - [facility] depressed depressed [facility] Chronic Chronic Problem Active Common fatigue fatigue Spirit - [facility] Type 2 Type 2 Problem Active [...] Active Univers ALLERGIE Class ity of S [facility] Social History Social Habit Start Date Stop Date Quantity Comments Source History of Cigarette Smoker Universi ty of tobacco use [place] [facility] History SDOH Food 2022-07-29 2022-07-29 1 Univers ity of Worry 00:00:00 00:00:00 [place] [facility] History SDOH Food 2022-07-29 2022-07-29 1 Univers ity of Scarcity 00:00:00 00:00:00 [place] [facility] History SDOH 2022-07-29 2022-07-29 2 University o f Transport Med 00:00:00 00:00:00 [place] Medic al Branch History [facility] 2022-07-29 2022-07-29 2 University o f Transport Non-Med 00:00:00 00:00:00 [facility] edical Branch Tobacco use and 2022-07-21 2022-07-21 Smokeless tobacco Un iversity of exposure 00:00:00 00:00:00 non-user [facility] Exposure to 2022-07-10 2022-07-20 Not sure University of SARS-CoV-2 00:00:00 10:56:00 [facility] (event) Branch Sex Ass[birth year] At [birth year] Universit y of 00:00:00 00:00:00 [facility] Smoking Status Start Date Stop Date Source Smokes tobacco daily 2022-07-21 00:00:00 Univers ity of [facility] Medications Ordered Filled Start Stop Current [...] Until Discontinu ed, Routine furosemide 2021-0 Yes [id number] 40mg Take 1 Univers 40 mg 9-18 tablet by ity of tablet 00:00: mouth in [place] 00 the Medical morning Branch and 1 tablet in the evening. metoprolol 2021-0 Yes [id number] 50mg Take 1 Univers succinate 9-18 tablet by ity o f XL 50 mg 24 00:00: mouth in [place] hr tablet 00 the Medical morning. Branch spironolact 2021-0 Yes [id number] 25mg Take 1 Univers one 25 mg 9-18 tablet by ity o f tablet 00:00: mouth in [place] 00 the Medical morning. Branch furosemide 2021-0 Yes [id number] 40mg Take 1 Univers 40 mg 9-18 tablet by ity of tablet 00:00: mouth in [place] 00 the Medical morning Branch and 1 tablet in the evening. metoprolol 2021-0 Yes [id number] 50mg Take 1 Univers succinate 9-18 tablet by ity o f XL 50 mg 24 00:00: [place] hr tablet 00 the Medical morning. Branch spironolact 2021-0 Yes [id number] 25mg Take 1 Univers one 25 mg 9-18 tablet by ity o f tablet 00:00: mouth in [place] 00 the Medical morning. Branch furosemide 2021-0 Yes [id number] 40mg Take 1 Univers 40 mg 9-18 tablet by ity of tablet 00:00: mouth in [place] 00 the Medical morning Branch and 1 tablet in the evening. metoprolol 2021-0 Yes [id number] 50mg Take 1 Univers succinate 9-18 tablet by ity o f XL 50 mg 24 00:00: [place] hr tablet 00 the Medical morning. Branch spironolact 2021-0 Yes [id number] 25mg Take 1 Univers one 25 mg 9-18 tablet by ity o f tablet 00:00: mouth in [place] 00 the Medical morning. Branch aspirin 2021-0 [...] by ity o f 21:46: mouth in [place] 23 the Medical morning. Branch montelukast 0 Yes 1{tbl} Take 1 Un rita 10 mg 9-17 tablet by ity of tablet 21:46: mouth in [place] 23 the Medical morning. Branch albuterol Yes 2{puff} Take 2 Uni vers sulfate 9-17 Puffs by ity of (PROAIR 21:46: mouth as [place] RESPICLICK) 23 needed for Me dical 90 Cough. Branch mcg/actuati Cough, on AePB wheezing aspirin 0 Yes 81mg Take 81 mg Univ ers (ASPIR-LOW 9-17 by mouth 2 ity of ORAL) 21:46: (two) [place] [id number] times Medical daily. Branch insulin Yes 15U inject 15 Unive rs glargine,hu 9-17 Units ity of m.rec.anlog 21:46: under the [place] (LANTUS 23 skin. Medical U-100 Branch INSULIN SC) losartan 25 0 Yes 1{tbl} Take 1 Un rita mg tablet 9-17 tablet by ity o f 21:46: mouth in [place] 23 the Medical morning. Branch montelukast 0 Yes 1{tbl} Take 1 Un rita 10 mg 9-17 tablet by ity of tablet 21:46: mouth in [place] 23 the Medical morning. Branch albuterol 0 Yes 2{puff} Take 2 Uni vers sulfate 9-17 Puffs by ity of (PROAIR 21:46: mouth as [place] RESPICLICK) 23 needed for Me dical 90 Cough. Branch mcg/actuati Cough, on AePB wheezing aspirin 2021-0 Yes 81mg Take 81 mg Univ ers (ASPIR-LOW 9-17 by mouth 2 ity of ORAL) 21:46: (two) [place] 23 times Medical daily. Branch insulin 2022-0 Yes 15U inject 15 Unive rs glargine,hu 9-17 Units ity of m.rec.anlog 21:46: under the [place] (LANTUS 23 skin. Medical U-100 Branch INSULIN SC) losartan 25 Yes 1{tbl} Take 1 Un rita mg tablet 9-17 tablet by ity o f 21:46: mouth in [place] 23 the Medical morning. Branch montelukast Yes 1{tbl} Take 1 Un rita 10 mg 9-17 tablet by ity of tablet 21:46: mouth in [place] 23 the Medical morning. Branch albuterol Yes 2{puff} Take 2 Uni vers sulfate 9-17 Puffs by ity of (PROAIR 21:46: mouth as [place] RESPICLICK) 23 needed for Me dical 90 [...] Branch 07/26/22 at 2030, Routine atorvastati Yes [id number] 40mg Take 1 Univers n 40 mg 9-17 tablet by ity of tablet 00:00: mouth at [place] 00 bedtime. Medical Branch apixaban Yes 1358 5mg Take 1 Univers (ELIQUIS) 5 9-17 tablet by ity of mg tablet 00:00: [place] 00 the Medical morning Branch and 1 tablet in the evening. Indication s: atrial fibrillati on atorvastati Yes [id number] 40mg Take 1 Univers n 40 mg 9-17 tablet by ity of tablet 00:00: mouth at [place] 00 bedtime. Medical Branch apixaban Yes 1358 5mg Take 1 Univers (ELIQUIS) 5 9-17 tablet by ity of mg tablet 00:00: [place] 00 the Medical morning Branch and 1 tablet in the evening. Indication s: atrial fibrillati on atorvastati Yes [id number] 40mg Take 1 Univers n 40 mg 9-17 tablet by ity of tablet 00:00: mouth at [place] 00 bedtime. [facility] Branch apixaban Yes 1358 5mg Take [...] ed insulin 2021- No 15U 15 Units, [facility] ers glargine 07-26 Subcutaneo [...] last Branch Fsbg modificati Testing on) on [facility] 07/25/22 at 2000, Until Discontinu ed, Routine Sliding No Subcutaneo Uni vers Scale 07-26 us, Q6H, ity of Insulin - 01:00: 04:46 First dose [place] Lispro 00 :24 (after Medical (HumaLOG) + last Branch Fsbg modificati Testing on) on [facility] 07/25/22 at 2000, Until Discontinu ed, Routine magnesium No 2g 2 g, IV [facility] ers sulfate in 07-26 Piggyback, it y of water 2 00:45: 03:11 Administer [place] as gram/50 mL 00 :00 over 60 Medica l (4 %) Minutes, Branch infusion 2 ONCE, 1 g dose, On [facility] 07/25/22 at 1945, Routine metOLazone 2021- No [...] Oral, ity of XL (TOPROL 14:15: DAILY, [place] XL) tablet 00 First dose Med ical 50 mg on Fri Branch 07/24/22 at 0915, Until Discontinu ed, Routine metoprolol 2021- No 50mg 50 mg, Univ ers succinate 07-24 Oral, ity of XL (TOPROL 14:15: 04:46 DAILY, [facility] s XL) tablet 00 :24 First [...] Rang e, Dosing and Testing: &nbs p;[facility] ONLY - aPTT [...] Rang e, Dosing and Testing: &nbs p;FOR [facility] ONLY - aPTT [...] 53 Starting Medi jose tablet 1 on [facility] tablet 07/23/22 at 1031, Until Discontinu ed, Routine, Pain (scale 4-6) HYDROcodone 2021- No 1{tbl} 1 tablet, Univers -acetaminop 07-2318 Oral, ity of hen (NORCO 15:31: 04:46 Q6HPRN, [place] as 5) 5-325 mg 53 :24 Starting Medi jose tablet 1 on [facility] tablet 07/23/22 at 1031, Until 07/27/22 [...] [place] mg 00 First dose Medical on [facility] 07/22/22 at 0900, Until Discontinu ed, Routine montelukast Yes 10mg 10 mg, Univ ers (SINGULAIR) 07-22 Oral, ity of tablet 10 14:00: DAILY, [place] mg 00 First dose Medical on [facility] 07/22/22 at 0900, Until Discontinu ed, Routine spironolact 2021- No 25mg 25 mg, Uni vers one 07-22 Oral, ity of (ALDACTONE) 14:00: 04:46 DAILY, [place] as tablet 25 00 :24 First dose Medi jose mg on [facility] 07/22/22 at 0900, Until Discontinu ed, Routine aspirin No 81mg 81 mg, Univers chewable 07-22 Oral, ity of tablet 81 14:00: 04:46 DAILY, [place] mg 00 :24 First dose Medical on [facility] 07/22/22 at 0900, Until Discontinu ed, Routine losartan 2021- No 25mg 25 mg, Univer s (COZAAR) 07-22 Oral, ity of tablet 25 14:00: 04:46 DAILY, [place] mg 00 :24 First dose Medical on [facility] 07/22/22 at 0900, Until Discontinu ed, Routine montelukast 2021- No 10mg 10 mg, Uni vers (SINGULAIR) 07-22 Oral, ity of tablet 10 14:00: 04:46 DAILY, [place] mg 00 :24 First dose Medical on [facility] 07/22/22 at 0900, Until Discontinu ed, Routine metoprolol 2021- No 50mg 50 mg, Univ ers tartrate 07-22 Oral, BID ity o f (LOPRESSOR) 13:00: 14:10 MEALS, [place] as tablet 50 00 :14 First dose Medi jose mg on [facility] 07/22/22 at 0800, Until Discontinu ed, Routine atorvastati Yes 40mg 40 mg, Univ ers n (LIPITOR) 07-22 Oral, QHS, it y of tablet 40 02:00: First dose [place] mg 00 on [facility] 07/21/22 at Branch 2100, Until Discontinu ed, Routine atorvastati 2021- No 40mg 40 mg, Uni vers n (LIPITOR) 07-22 Oral, QHS, i ty of tablet 40 02:00: 04:46 First dose [place] mg 00 :24 on [facility] 07/21/22 at Branch 2100, Until Discontinu ed, Routine morpHINE (2 2021- No 2mg 2 mg, Slow Univers mg/mL) 07-22 IV Push, ity of injection 2 01:29: 15:32 Q6HPRN, [place] mg 07 :09 Starting Medical on [facility] 07/21/22 at 2029, Until Tu07/23/22 at 1032, Routine, Chest pain furosemide 2021- No 20mg 20 mg, IV U nivers (LASIX) 07-22 Push, ity of injection 01:00: 05:27 Q12H, [place] 20 mg 00 :42 First dose Medical (after Branch last reorder) on [facility] 07/21/22 at 2000, Until Discontinu ed, LORI enoxaparin 2021- No 1mg/kg 100 mg Un rita (LOVENOX) 07-22 (rounded ity o f injection 01:00: 05:30 from 98.5 [place] 100 mg 00 :31 mg = 1 Medical mg/kg Branch ?98.5 kg), Subcutaneo us, Q12H, First dose (after last modificati on) on [facility] 07/21/22 at 2000, Until Discontinu ed, Routine sulfur 2021- No [id number] 5mL 5 mL, Unive rs hexafluorid 07-21 Intravenou i ty of e microsphr 15:45: 15:45 s, ONCE, 1 [place] (LUMASON) 00 :00 dose, On Medica l injection 5 [place] mL 07/21/22 at 1045, Routine
delivery crew member approving Restricted medication : ANA LUISA GRIMM insulin 2021- No 10U 10 Units, Univ ers glargine 07-21 Subcutaneo ity of (LANTUS 14:00: 14:09 us, DAILY, [place] as U-100) 00 :20 First dose Medical injection on [facility] Branch 10 Units 07/21/22 at 0900, Until [...] dose [place] Lispro 00 :26 on [facility] Medical (HumaLOG) + 07/20/22 at Br anch Fsbg 1900, Testing Until Discontinu ed, Routine glucagon Yes 1mg 1 mg, Univers (GLUCAGEN 07-20 Intramuscu ity of DIAGNOSTIC 23:48: lar, PRN, [place] KIT) 16 Starting Medical injection 1 on [facility] 07/20/22 at 1848, Until Discontinu ed, LORI, Blood Glucose < or = 70 mg/dL and patient is unable to swallow or has mental changes. dextrose 50 Yes 25mL 25 mL, Univ ers % in water 07-20 Slow IV ity of (D50W) 23:48: Push, PRN, [place] injection 16 Starting Medica l 25 mL on [facility] Branch 07/20/22 at 1848, Until Discontinu ed, LORI, Blood Glucose < or = 70 mg/dL and patient is unable to swallow or has mental status changes. glucagon 2021- No 1mg 1 mg, Univers (GLUCAGEN 07-2018 Intramuscu ity of DIAGNOSTIC 23:48: 04:46 lar, PRN, [place] KIT) 16 :24 Starting Medical injection 1 on [facility] Branch mg 07/20/22 at 1848, Until [...] status changes. metoprolol No 25mg 25 mg, [facility] ers tartrate 07-20 Oral, [...] 00 :00 dose, On Medica l mg [facility] Branch 07/20/22 at 1300, LORI furosemide 2021- No 20mg 20 mg, IV U nivers (LASIX) 07-20 Push, ity of injection 17:58: 18:02 ONCE, 1 [place] 20 mg 00 :00 dose, On Medical [facility] Branch 07/20/22 at 1300, LORI NaCl 0.9% 2021- No 500mL at 999 Univ ers (NS) bolus 07-20 mL/hr, 500 it y of infusion 17:00: 17:15 mL, IV [place] 500 mL 00 :00 Piggyback, Medical ONCE, 1 Branch dose, On [facility] 07/20/22 at 1200, STAT metoprolol 2021- No 5mg 5 mg, Slow Univers (LOPRESSOR) 07-20 IV Push, ity of injection 5 16:15: 16:16 ONCE, 1 [place] mg 00 :00 dose, On Medical [facility] Branch 07/20/22 at 1115, LORI Trelegy Trelegy 0 2020- No Meghana 1 puff Com mon Ellipta Ellipta 2-12 06-11 [place] [facility] 00:00: 00:00 - [facility] 00 :00 [facility] HydrOXYzine HydrOXYzine Yes Meghana 1 tablet Common HCl HCl 7 [place] as needed Spirit 00:00: - [facility] 00 [facility] Ozempic Ozempic 2020- No Meghana 0.5 mg Com mon 05-11 0824 [place] [facility] 00:00: 00:00 - [facility]I 00 :00 [facility] Januvia Januvia Yes Meghana as Common 1- [place] directed Spirit 00:00: - [facility]I 00 [facility] ProAir ProAir Yes Meghana 2 puffs as Comm on RespiClick RespiClick [place] needed [facility] [place] 3 [place] 3 Yes Meghana 1 capsule Com mon [facility] Montelukast Montelukast Yes Meghana 1 tablet Common Sodium Sodium [place] in the [facility] evening [facility] Lipitor Lipitor Yes Meghana 1 tablet Comm on [facility] Losartan Losartan Yes Meghana 1 tablet Co mmon Potassium Potassium [place] [facility] it [facility] Metoprolol Metoprolol Yes Meghana 1 tablet Common Tartrate Tartrate [place] with food S pirit [facility] Metformin Metformin Yes Meghana 1 tablet Common HCl HCl [place] with a [facility] meal [facility] Immunizations Ordered Immunization Filled Immunization Date Status Commen ts Source Name Name FLUZONE HIGH DOSE FLUZONE HIGH DOSE 2019-09-14 Completed [facility] OVER 65 OVER 65 00:00:00 [facility] Vital Signs Vital Name Observation Time Observation Value Comments Source Systolic blood 2022-07-28 01:43:00 99 mm[Hg] Univer sity of pressure [facility] Diastolic blood 2022-07-28 01:43:00 58 mm[Hg] Unive rsity of pressure [facility] Heart rate 2022-07-28 01:40:00 97 /min [facility] Body temperature 2022-07-28 01:40:00 36.56 Melvi [facility] Res[facility] rate 2022-07-28 01:40:00 18 /min [facility] Oxygen saturation in 2022-07-28 01:40:00 90 /min [facility] blood by [facility] Pulse oximetry Branch Body height 2022-07-26 17:49:00 172.7 cm [facility] Body weight 2022-07-26 17:49:00 96.163 kg [facility] BMI 2022-07-26 17:49:00 32.23 kg/m2 [facility] Systolic blood 2022-07-26 23:31:00 102 mm[Hg] Univer sity of pressure [facility] Diastolic blood 2022-07-26 23:31:00 59 mm[Hg] [facility] Heart rate 2022-07-26 23:31:00 85 /min [facility] Body temperature 2022-07-26 23:31:00 36.56 Melvi [facility] Respiratory rate 2022-07-26 23:24:00 19 /min [facility] Oxygen saturation in 2022-07-26 23:24:00 93 /min [facility] Arterial blood by [facility] Pulse oximetry Branch Body height 2022-07-26 17:49:00 172.7 cm [facility] Body weight 2022-07-26 17:49:00 96.163 kg [facility] BMI 2022-07-26 17:49:00 32.23 kg/m2 [facility] Procedures Procedure Date / Time Performing Clinician Source Performed POCT GLUCOSE (AUTOMATED) 2022-07-27 16:45:00 Berna Alcantar [facility] POCT GLUCOSE (AUTOMATED) 2022-07-27 16:45:00 Berna Alcantar [facility] MAGNESIUM 2022-07-27 10:46:00 Flora Fox [facility] BASIC METABOLIC PANEL (NA, 2022-07-27 10:46:00 Flora Fox [facility] K, CL, CO2, GLUCOSE, BUN, Medica l Branch CREATININE, CA) N-TERMINAL PRO-BNP 2022-07-27 10:46:00 Flora Fox [facility] MAGNESIUM 2022-07-27 10:46:00 Colt Foxssica [facility] BASIC METABOLIC PANEL (NA, 2022-07-27 10:46:00 [facility], CO2, GLUCOSE, BUN, Medica l Branch CREATININE, CA) N-TERMINAL PRO-BNP 2022-07-27 10:46:00 [facility] POCT GLUCOSE (AUTOMATED) 2022-07-27 10:38:00 Berna Alcantar Uni versity of [facility] POCT GLUCOSE (AUTOMATED) 2022-07-27 10:38:00 KhKeo fernandezm Uni versity of [facility] POCT GLUCOSE (AUTOMATED) 2022-07-27 04:51:00 KhKeo fernandezm Uni versity of [facility] POCT GLUCOSE (AUTOMATED) 2022-07-27 04:51:00 Keo Alcantarm Uni versity of [facility] POCT GLUCOSE (AUTOMATED) 2022-07-27 01:10:00 Keo Alcantarm Uni versity of [facility] POCT GLUCOSE (AUTOMATED) 2022-07-27 01:10:00 KhKeo fernandezm Uni versity of [facility] POCT GLUCOSE (AUTOMATED) 2022-07-26 23:37:00 Berna Alcantar Uni versity of [facility] POCT GLUCOSE (AUTOMATED) 2022-07-26 23:37:00 Berna Alcantar Uni versity of [facility] ACTIVATED PARTIAL THRMPLAS 2022-07-26 23:10:00 [facility] ACTIVATED PARTIAL THRMPLAS 2022-07-26 23:10:00 [facility] CARDIAC CATHETERIZATION 2022-07-26 21:16:04 [facility] CARDIAC CATHETERIZATION 2022-07-26 21:16:04 [facility] CARDIAC CATHETERIZATION 2022-07-26 21:16:04 [facility] CARDIAC CATHETERIZATION 2022-07-26 21:16:04 [facility] CARDIAC CATHETERIZATION 2022-07-26 21:16:04 [facility] ersity of [facility] CARDIAC CATHETERIZATION 2022-07-26 21:16:04 [facility] CARDIAC CATHETERIZATION 2022-07-26 21:16:04 [place] [facility] ersity of [facility] CARDIAC CATHETERIZATION 2022-07-26 21:16:04 [place] [facility] ersity of [facility] CATH PROCEDURE LOG 2022-07-26 20:55:04 [place] [facility] y of [facility] CATH PROCEDURE LOG 2022-07-26 20:55:04 [facility] POCT GLUCOSE (AUTOMATED) 2022-07-26 16:20:00 Berna Alcantar Uni versity of [facility] POCT GLUCOSE (AUTOMATED) 2022-07-26 16:20:00 Berna Alcantar Uni versity of [facility] POCT GLUCOSE (AUTOMATED) 2022-07-26 12:30:00 Berna Alcantar Uni versity of [facility] POCT GLUCOSE (AUTOMATED) 2022-07-26 12:30:00 Berna Alcantar Uni versity of [facility] POCT GLUCOSE (AUTOMATED) 2022-07-26 11:08:00 Berna Alcantar Uni versity of [facility] POCT GLUCOSE (AUTOMATED) 2022-07-26 11:08:00 Berna Alcantar Uni versity of [facility] POCT GLUCOSE (AUTOMATED) 2022-07-26 08:52:00 Berna Alcantar Uni versity of [facility] POCT GLUCOSE (AUTOMATED) 2022-07-26 08:52:00 Berna Alcantar Uni versity of [facility] MAGNESIUM 2022-07-26 05:35:00 [place], [facility] BASIC METABOLIC PANEL (NA, 2022-07-26 05:35:[address] [facility] K, CL, CO2, GLUCOSE, BUN, Medica l Branch CREATININE, CA) ACTIVATED PARTIAL THRMPLAS 2022-07-26 05:35:[address] [facility] EXTRA TUBE LAV 2022-07-26 05:35:00 [place] [facility] MAGNESIUM 2022-07-26 05:35:[address] [facility] BASIC METABOLIC PANEL (NA, 2022-07-26 05:35:[address] [facility] K, CL, CO2, GLUCOSE, BUN, Medica l Branch CREATININE, CA) ACTIVATED PARTIAL THRMPLAS 2022-07-26 05:35:00 [facility] 2022-07-26 05:35:00 [place] [facility] POCT GLUCOSE (AUTOMATED) 2022-07-26 05:20:00 [facility] ([facility]OM[facility]) 2022-07-26 05:20:00 Berna Alcantar [facility] POCT GLUCOSE (AUTOMATED) 2022-07-26 01:45:00 Berna [facility]cantar [facility] PO[facility]UCOSE (AUTOMATED) 2022-07-26 01:45:00 [facility]ar [facility] 2022-07-25 22:15:[address] [facility] BASIC METABOLIC PANEL (NA, 2022-07-25 22:15:[address] [facility] K, CL, CO2, GLUCOSE, BUN, Medica l Branch CREATININE, CA) ACTIVATED PARTIAL THRMPLAS 2022-07-25 22:15:[address] [facility] MAGNESIUM 2022-07-25 22:15:[address] [facility] BASIC METABOLIC PANEL (NA, 2022-07-25 22:15:[address] [facility] K, CL, CO2, GLUCOSE, BUN, Medica l Branch CREATININE, CA) ACTIVATED PARTIAL THRMPLAS 2022-07-25 22:15:00 Evelio Soni niversalberto [facility] POCT GLUCOSE (AUTOMATED) 2022-07-25 21:22:00 Berna Alcantar Uni versity of [facility] POCT GLUCOSE (AUTOMATED) 2022-07-25 21:22:00 Berna Alcantar Uni versity of [facility] POCT GLUCOSE (AUTOMATED) 2022-07-25 20:46:00 Berna Alcantar Uni versity of [facility] POCT GLUCOSE (AUTOMATED) 2022-07-25 20:46:00 Berna Alcantar Uni versity of [facility] POCT GLUCOSE (AUTOMATED) 2022-07-25 17:09:00 Berna Alcantar Uni versity of [facility] POCT GLUCOSE (AUTOMATED) 2022-07-25 17:09:00 Berna Alcantar Uni versity [facility] HB ECG ROUTINE & RHYTHM 2022-07-25 14:53:13 Berna Collado Uni versity [facility] ACTIVATED PARTIAL THRMPLAS 2022-07-25 14:53:00 Evelio Soni niversalberto [facility] ACTIVATED PARTIAL THRMPLAS 2022-07-25 14:53:[address] [facility] POCT GLUCOSE (AUTOMATED) 2022-07-25 13:12:00 Berna Alcantar Uni versity of [facility] POCT GLUCOSE (AUTOMATED) 2022-07-25 13:12:00 Berna Alcantar Uni versity of [facility] MAGNESIUM 2022-07-25 11:36:[address] [facility] BASIC METABOLIC PANEL (NA, 2022-07-25 11:36:[address] [facility] K, CL, CO2, GLUCOSE, BUN, Medica l Branch CREATININE, CA) CBC WITH DIFF 2022-07-25 11:36:[address] [facility] MAGNESIUM 2022-07-25 11:36:[address] [facility] BASIC METABOLIC PANEL (NA, 2022-07-25 11:36:[address] [facility] K, CL, CO2, GLUCOSE, BUN, Medica l Branch CREATININE, CA) CBC WITH DIFF 2022-07-25 11:36:[address] [facility] ACTIVATED PARTIAL THRMPLAS 2022-07-25 05:15:[address] [facility] ACTIVATED PARTIAL THRMPLAS 2022-07-25 05:15:[address] [facility] POCT GLUCOSE (AUTOMATED) 2022-07-25 01:58:00 [facility] 2022-07-25 01:58:00 Berna Alcantar [facility] MAGNESIUM 2022-07-24 22:34:[address] [facility] BASIC METABOLIC PANEL (NA, 2022-07-24 22:34:[address] [facility] K, CL, CO2, GLUCOSE, BUN, Medica l Branch CREATININE, CA) ACTIVATED PARTIAL THRMPLAS 2022-07-24 22:34:[address] [facility] MAGNESIUM 2022-07-24 22:34:[address] [facility] BASIC METABOLIC PANEL (NA, 2022-07-24 22:34:[address] [facility] K, CL, CO2, GLUCOSE, BUN, Medica l Branch CREATININE, CA) ACTIVATED PARTIAL THRMPLAS 2022-07-24 22:34:[address] [facility] POCT GLUCOSE (AUTOMATED) 2022-07-24 20:43:00 Berna Alcantar [facility] POCT GLUCOSE (AUTOMATED) 2022-07-24 20:43:00 Berna Alcantar Uni versity of [facility] POCT GLUCOSE (AUTOMATED) 2022-07-24 17:11:00 Berna Alcantar Uni versity of [facility] POCT GLUCOSE (AUTOMATED) 2022-07-24 17:11:00 Berna Alcantar Uni versity of [facility] POCT GLUCOSE (AUTOMATED) 2022-07-24 14:11:00 Berna Alcantar Uni versity of [facility] POCT GLUCOSE (AUTOMATED) 2022-07-24 14:11:00 Berna [facility] ACTIVATED PARTIAL THRMPLAS 2022-07-24 11:37:00 [facility] ACTIVATED PARTIAL THRMPLAS 2022-07-24 11:37:[address] [facility] MAGNESIUM 2022-07-24 05:51:00 Evelio Soni [facility] BASIC METABOLIC PANEL (NA, 2022-07-24 05:51:00 [facility] K, CL, CO2, GLUCOSE, BUN, Medica l Branch CREATININE, CA) PROTHROMBIN TIME / INR 2022-07-24 05:51:00 Evelio Soni [facility] ACTIVATED PARTIAL THRMPLAS 2022-07-24 05:51:00 [facility] MAGNESIUM 2022-07-24 05:51:00 Evelio Soni [facility] BASIC METABOLIC PANEL (NA, 2022-07-24 05:51:00 Evelio Soni [facility] K, CL, CO2, GLUCOSE, BUN, Medica l Branch CREATININE, CA) PROTHROMBIN TIME / INR 2022-07-24 05:51:00 [facility] PARTIAL THRMPLAS 2022-07-24 05:51:00 Evelio Soni [facility] POCT GLUCOSE (AUTOMATED) 2022-07-24 01:53:00 Atul Stephens Rafaela [facility] POCT GLUCOSE (AUTOMATED) 2022-07-24 01:53:00 [facility]) 2022-07-23 21:31:00 [facility] Stephens [facility]SE (AUTOMATED) 2022-07-23 21:31:00 [facility]SE (AUTOMATED) 2022-07-23 17:08:00 [facility]ul Stephens [facility]SE (AUTOMATED) 2022-07-23 17:08:00 Atul Stephens Rafaela [facility] POCT GLUCOSE (AUTOMATED) 2022-07-23 12:46:00 Atul Stephens Rafaela [facility] POCT GLUCOSE (AUTOMATED) 2022-07-23 12:46:00 Atul Stephens Rafaela [facility] MAGNESIUM 2022-07-23 09:15:00 [facility]OLIC PANEL (NA, 2022-07-23 09:15:00 [facility], [facility], CO2, GLUCOSE, BUN, Medica l Branch CREATININE, CA) CBC WITH DIFF 2022-07-23 09:15:00 [facility] N-TERMINAL PRO-BNP 2022-07-23 09:15:00 George Vizcaino [facility] MAGNESIUM 2022-07-23 09:15:00 George Vizcaino [facility] BASIC METABOLIC PANEL (NA, 2022-07-23 09:15:00 [facility] K, CL, CO2, GLUCOSE, BUN, Medica l Branch CREATININE, CA) CBC WITH DIFF 2022-07-23 09:15:00 [facility] N-TERMINAL PRO-BNP 2022-07-23 09:15:00 George Vizcaino [facility] POCT GLUCOSE (AUTOMATED) 2022-07-23 02:12:00 Atul Stephens [facility] POCT GLUCOSE (AUTOMATED) 2022-07-23 02:12:00 Atul Setphens Rafaela [facility] POCT GLUCOSE (AUTOMATED) 2022-07-22 21:12:00 Atul Stephens Rafaela [facility] POCT GLUCOSE (AUTOMATED) 2022-07-22 21:12:00 Atul Stephens [facility] POCT GLUCOSE (AUTOMATED) 2022-07-22 16:30:00 Atul Stephens Rafaela [facility] POCT GLUCOSE (AUTOMATED) 2022-07-22 16:30:00 Atul Stephens [facility] POCT GLUCOSE (AUTOMATED) 2022-07-22 12:51:00 Atul Stephens [facility] POCT GLUCOSE (AUTOMATED) 2022-07-22 12:51:00 Atul Stephens [facility] PHOSPHORUS 2022-07-22 08:19:00 Atul Stephens [facility] MAGNESIUM 2022-07-22 08:19:00 Angelo [facility] HEPATIC FUNCTION PANEL 2022-07-22 08:19:00 Atul Stephens [facility] ([id number]) (ALB,T.PRO,BILI Medical Branch T,BU/BC,ALT,AST,ALK PHOS) BASIC METABOLIC PANEL (NA, 2022-07-22 08:19:00 Atul Stephens [facility] K, CL, CO2, GLUCOSE, BUN, Medica l Branch CREATININE, CA) CBC WITH DIFF 2022-07-22 08:19:00 Atul Stephens [facility] N-TERMINAL PRO-BNP 2022-07-22 08:19:00 Atul Stephens [facility] PHOSPHORUS 2022-07-22 08:19:00 Atul Stephens [facility] MAGNESIUM 2022-07-22 08:19:00 Angelo [facility] HEPATIC FUNCTION PANEL 2022-07-22 08:19:00 [id number] (ALB,T.PRO,BILI Medical Branch T,BU/BC,ALT,AST,ALK PHOS) BASIC METABOLIC PANEL (NA, 2022-07-22 08:19:00 Atul Stephens [facility] K, CL, CO2, GLUCOSE, BUN, Medica l Branch CREATININE, CA) CBC WITH DIFF 2022-07-22 08:19:00 Atul Stephens [facility] N-TERMINAL PRO-BNP 2022-07-22 08:19:00 Atul Stephens [facility] POCT GLUCOSE (AUTOMATED) 2022-07-22 01:44:00 Atul Stephens [facility] POCT GLUCOSE (AUTOMATED) 2022-07-22 01:44:00 Atul Stephens [facility] POCT GLUCOSE (AUTOMATED) 2022-07-21 21:52:00 Atul Stephens [facility] POCT GLUCOSE (AUTOMATED) 2022-07-21 21:52:00 Atul Stephens [facility] POCT GLUCOSE (AUTOMATED) 2022-07-21 16:43:00 Atul Stephens [facility] POCT GLUCOSE (AUTOMATED) 2022-07-21 16:43:00 Atul Stephens [facility] TRANSTHORACIC ECHO (TTE) 2022-07-21 15:28:00 Atul Stephens [facility] W/ CONTRAST Medical [facility] TRANSTHORACIC ECHO (TTE) 2022-07-21 15:28:00 Atul Stephens [facility] COMPLETE W/ CONTRAST Medical [facility] POCT GLUCOSE (AUTOMATED) 2022-07-21 15:00:00 Atul Stephens [facility] POCT GLUCOSE (AUTOMATED) 2022-07-21 15:00:00 Atul Stephens [facility] POCT GLUCOSE (AUTOMATED) 2022-07-21 13:04:00 Atul Stephens [facility] POCT GLUCOSE (AUTOMATED) 2022-07-21 13:04:00 Atul Stephens [facility] MAGNESIUM 2022-07-21 09:41:00 [facility] 2022-07-21 09:41:00 [facility] BASIC METABOLIC PANEL (NA, 2022-07-21 09:41:00 [facility]ul [facility] K, CL, CO2, GLUCOSE, BUN, Medica l Branch CREATININE, CA) LIPID PANEL ([id number])(TOTAL 2022-07-21 09:41:00 [facility] TRIGLYCERIDES, HDL) CBC WITH DIFF 2022-07-21 09:41:00 Atul Stephens [facility] N-TERMINAL PRO-BNP 2022-07-21 09:41:00 Atul Stephens [facility] MAGNESIUM 2022-07-21 09:41:00 Atul Stephens [facility] TROPONIN I 2022-07-21 09:41:00 Atul Stephens [facility] BASIC METABOLIC PANEL (NA, 2022-07-21 09:41:00 Atul Stephens [facility] K, CL, CO2, GLUCOSE, BUN, Medica l Branch CREATININE, CA) LIPID PANEL ([id number])(TOTAL 2022-07-21 09:41:00 Ana Luisa Grimm [facility] CHOLESTEROL, [facility] [place] TRIGLYCERIDES, HDL) CBC WITH DIFF 2022-07-21 09:41:00 Atul Stephens [facility] N-TERMINAL PRO-BNP 2022-07-21 09:41:00 Atul Stephens [facility] POCT GLUCOSE (AUTOMATED) 2022-07-21 04:09:00 Atul Stephens [facility] POCT GLUCOSE (AUTOMATED) 2022-07-21 04:09:00 Atul Stephens [facility] BLOOD CULTURE SCREEN 2022-07-21 01:45:00 Atul Stephens [facility] BLOOD CULTURE WORKUP 2022-07-21 01:45:00 Atul Stephens [facility] GRAM POSITIVE BLOOD 2022-07-21 01:45:00 Atul Stephens [facility] PATHOGENS DNA [facility] PROBE-AEROBIC BLOOD CULTURE SCREEN 2022-07-21 01:45:00 Atul Stephens [facility] BLOOD CULTURE WORKUP 2022-07-21 01:45:00 Atul Stephens [facility] GRAM POSITIVE BLOOD 2022-07-21 01:45:00 Atul Stephens [facility] PATHOGENS DNA [facility] PROBE-AEROBIC POCT GLUCOSE (AUTOMATED) 2022-07-21 01:26:00 Atul Stephens [facility] POCT GLUCOSE (AUTOMATED) 2022-07-21 01:26:00 Atul Stephens [facility] BLOOD CULTURE SCREEN 2022-07-20 23:43:00 Atul Stephens [facility] BLOOD CULTURE SCREEN 2022-07-20 23:43:00 Atul Stephens [facility] POCT GLUCOSE (AUTOMATED) 2022-07-20 22:24:00 Atul Stephens [facility] POCT GLUCOSE (AUTOMATED) 2022-07-20 22:24:00 Atul Stephens [facility] URINALYSIS 2022-07-20 17:41:00 Charlene Butt [facility] URINALYSIS 2022-07-20 17:41:00 Charlene Butt [facility] XR CHEST 1 VW 2022-07-20 16:16:00 Charlene Butt [facility] XR CHEST 1 VW 2022-07-20 16:16:00 Charlene Butt [facility] TROPONIN I 2022-07-20 16:10:00 Charlene Butt [facility] COMP. METABOLIC PANEL 2022-07-20 16:10:00 Charlene Butt [facility] ([id number]) [facility] CBC WITH DIFF 2022-07-20 16:10:00 Charlene Butt [facility] GLYCOSYLATED HEMOGLOBIN 2022-07-20 16:10:00 Atul Stephens [facility] (A1C) Medical Branch PROTHROMBIN TIME / INR 2022-07-20 16:10:00 Charlene Butt [facility] ACTIVATED PARTIAL THRMPLAS 2022-07-20 16:10:00 Saniya Butt [facility] N-TERMINAL PRO-BNP 2022-07-20 16:10:00 Charlene Butt [facility] COVID-19 (ID NOW RAPID 2022-07-20 16:10:00 Charlene Butt [facility] TESTING) Medical Branch LAB ONLY COVID 2022-07-20 16:10:00 Charlene Butt [facility] TROPONIN I 2022-07-20 16:10:00 Charlene Butt [facility] COMP. METABOLIC PANEL 2022-07-20 16:10:00 Charlene Butt [facility] ([id number]) Medical Branch CBC WITH DIFF 2022-07-20 16:10:00 Charlene Butt [facility] GLYCOSYLATED HEMOGLOBIN 2022-07-20 16:10:00 Atul Stephens [facility] (A1C) Medical Branch PROTHROMBIN TIME / INR 2022-07-20 16:10:00 Charlene Butt [facility] ACTIVATED PARTIAL THRMPLAS 2022-07-20 16:10:00 Saniya Butt [facility] N-TERMINAL PRO-BNP 2022-07-20 16:10:00 Charlene Butt [facility] COVID-19 (ID NOW RAPID 2022-07-20 16:10:00 Charlene Butt [facility] TESTING) Medical Branch LAB ONLY COVID 2022-07-20 16:10:00 Charlene Butt [facility] INTERPRETATION Medical Branch HB ECG ROUTINE & RHYTHM 2022-07-20 16:05:41 Charlene Butt [facility] HB ECG ROUTINE & RHYTHM 2022-07-20 16:05:41 Charlene Butt [facility] NOTICE OF PRIVACY 2022-07-20 15:52:39 Doctor Unassigned, [facility] [place] [facility] [place] NOTICE OF PRIVACY 2022-07-20 15:52:39 Doctor Unassigned, [facility] [place] HOSPITAL ADMISSION 2022-07-20 05:01:00 Doctor Unassigned, [facility] [place] Medical Branch HOSPITAL ADMISSION 2022-07-20 05:01:00 Doctor Unassigned, [facility] Name Medical [place] Encounters Start End Encounter Admission Attending Care Care Encounter Source Date/Time Date/Time Type Type Clinicians Facility Department ID 2022-09-03 Outpatient 3 [id number] [id number] [facility] 08:24:57 [facility] [place] 2022-09-02 Outpatient 3 [id number] [facility] REF [id number] [facility] 14:07:05 [facility] [place] 2021-12-05 [facility] [id number] [facility] 11:06:38 Meghana [address] [facility] 2022-08-15 2022-08-28 Inpatient 3 Julio ENCPL CRD [id number] [facility] 18:17:00 12:00:00 Jose [facility] [place] 2022-07-29 2022-07-29 Transition ARIANE FosterKhadar [id number] Univers 00:00:00 00:00:00 of Care La BUSH [id number] it y of ARSLANZA 4.2.7.2.686 [facility] [id number] [facility] 403 Branch 2022-07-20 2022-07-27 Hospital Charlene Butt 1.2.84 [id number] [id number] Univers 11:00:00 21:45:00 Encounter Atul Stephens [id number] [facility] 4.2.7.2 .686 [place] [id number] [facility] 089 Branch 2022-07-20 2022-07-27 [facility] [id number] Univers 11:00:00 21:45:00 [place] ity [facility] 2022-07-26 2022-07-26 Surgery JAMAL Cannon [id number] Univers 18:03:00 21:03:00 Orlando GORDON [id number] [facility] 4.2.7.2.686 Jonathan as [id number] [place] [id number] Branch 2020-04-04 2020-04-04 [facility] [id number] Common 13:00:00 13:00:[address] [facility] 2020-03-22 2020-03-22 [facility] [id number] Common 15:20:00 15:20:[address] [facility] 2019-12-22 2019-12-22 [facility] [id number] Common 10:40:00 10:40:[address] [facility] 2019-12-15 2019-12-15 [facility] [id number] Common 14:00:00 14:00:[address] [facility] 2019-09-14 2019-09-14 [facility] [id number] Common 13:20:00 13:20:[address] [facility] 2019-05-11 2019-05-11 [facility] [id number] Common 13:00:00 13:00:[address] [facility] 2018-11-11 2018-11-11 [facility] [id number] Common 13:00:00 13:00:[address] [facility] 2018-10-19 2018-10-19 [facility] [id number] Common 08:30:00 08:30:[address] [facility] 2018-04-22 2018-04-22 [facility] [id number] Common 14:00:00 14:00:00 [facility] it [facility] Results Test Description Test Time Test Comments Results Result Comments Source POCT GLUCOSE (AUTOMATED) 2022-07-27 17:05:15 Test Item Value Reference Range Interpretation Comme nts POCT GLU (test code = 3050667043) 264 mg/dL 70-110 H Lab Interpretation (test code = 27461-5) [facility]normal [facility]20[facility]-07[facility]27 17:05:15 Test Item Value Reference Range Interpretation Comments POCT GLU (test code = 5401147448) 264 mg/dL 70-110 H Lab Interpretation (test code = Abnormal 86469-2) [facility] [id number] 15:17:32 Test Item Value Reference Range Interpretation Comments NT-proBNP (test code 1090 pg/mL See_Comment H [Autom ated = 8353342850) message] The system which generated this result transmitted reference range : <=125. The reference range was not used to interpret this result as normal/abnormal . ROSLYN (test code = ROSLYN) Biotin has been reported to cause a negative bias, interpret results relative to patient's use of biotin. Lab Interpretation Abnormal (test code = 65197-1) [facility] [id number] 15:17:32 Test Item Value Reference Range Interpretation Comments NT-proBNP (test code 1090 pg/mL See_Comment H [Autom ated = [id number]) message] The system which generated this result transmitted reference range : <=125. The reference range was not used to interpret this result as normal/abnormal . ROSLYN (test code = ROSLYN) Biotin has been reported to cause a negative bias, interpret results relative to patient's use of biotin. Lab Interpretation Abnormal (test code = 65633-4) [facility]2022-09-17 11:45:45 Test Item Value Reference Range Interpretation Comments MAGNESIUM (test code = 3368499869) 1.9 mg/dL 1.7-2.4 Lab Interpretation (test code = Normal 74932-5) [facility] (NA, K, CL, CO2, GLUCOSE, BUN, CREATININE, CA)2022-07-27 11:45:45 Test Item Value Reference Range Interpretation Comments NA (test code = 130 mmol/L 135-145 L 8536503810) K (test code = 4.1 mmol/L 3.5-5 6320908004) CL (test code = 89 mmol/L 98-108 L 5289059672) CO2 TOTAL (test code = 37 mmol/L 23-31 H 4385984975) AGAP (test code = 2-16 0078677437) BUN (test code = 32 mg/dL 7-23 H 7318629122) GLUCOSE (test code = 180 mg/dL 70-110 H 9367567452) CREATININE (test code = 0.81 mg/dL 0.6-1.25 3723635856) CALCIUM (test code = 8.5 mg/dL 8.6-10.6 L 2582675293) eGFR (test code = mL/min/1.73m2 8684699665) ROSLYN (test code = ROSLYN) Association of [...] tests). Lab Interpretation Abnormal (test code = 60013-2) [facility]2022-09-17 11:45:45 Test Item Value Reference Range Interpretation Comments MAGNESIUM (test code = 6074586838) 1.9 mg/dL 1.7-2.4 Lab Interpretation (test code = Normal 94800-5) [facility] METABOLIC PANEL (NA, K, CL, CO2, GLUCOSE, BUN, CREATININE, CA)2022-07-27 11:45:45 Test Item Value Reference Range Interpretation Comments NA (test code = 130 mmol/L 135-145 L 1966117274) K (test code = 4.1 mmol/L 3.5-5 6796696431) CL (test code = 89 mmol/L 98-108 L 9991989681) CO2 TOTAL (test code = 37 mmol/L 23-31 H 7008329473) AGAP (test code = 2-16 2234336981) BUN (test code = 32 mg/dL 7-23 H 5499435728) GLUCOSE (test code = 180 mg/dL 70-110 H 0861935004) CREATININE (test code = 0.81 mg/dL 0.6-1.25 7862052829) CALCIUM (test code = 8.5 mg/dL 8.6-10.6 L 9329909762) eGFR (test code = mL/min/1.73m2 0463594477) ROSLYN (test code = ROSLYN) Association of [...] tests). Lab Interpretation Abnormal (test code = 61825-8) [facility] GLUCOSE (AUTOMATED)2022-07-27 10:39:46 Test Item Value Reference Range Interpretation Comments POCT GLU (test code = 4554234934) 198 mg/dL 70-110 H Lab Interpretation (test code = Abnormal 14586-8) [facility] GLUCOSE (AUTOMATED)2022-07-27 10:39:46 Test Item Value Reference Range Interpretation Comments POCT GLU (test code = 0302648853) 198 mg/dL 70-110 H Lab Interpretation (test code = Abnormal 14902-4) [facility] GLUCOSE (AUTOMATED)2022-07-27 04:52:50 Test Item Value Reference Range Interpretation Comments POCT GLU (test code = 9546037818) 213 mg/dL 70-110 H Lab Interpretation (test code = Abnormal 51940-1) [facility] GLUCOSE (AUTOMATED)2022-07-27 04:52:50 Test Item Value Reference Range Interpretation Comments POCT GLU (test code = 0553142482) 213 mg/dL 70-110 H Lab Interpretation (test code = Abnormal 87067-2) [facility] GLUCOSE (AUTOMATED)2022-07-27 01:10:58 Test Item Value Reference Range Interpretation Comments POCT GLU (test code = 7182060124) 284 mg/dL 70-110 H Lab Interpretation (test code = Abnormal 48982-6) [facility] GLUCOSE (AUTOMATED)2022-07-27 01:10:58 Test Item Value Reference Range Interpretation Comments POCT GLU (test code = 7234900351) 284 mg/dL 70-110 H Lab Interpretation (test code = Abnormal 55927-6) [facility] GLUCOSE (AUTOMATED)2022-07-26 23:39:10 Test Item Value Reference Range Interpretation Comments POCT GLU (test code = 1967128492) 199 mg/dL 70-110 H Lab Interpretation (test code = Abnormal 75874-4) [facility] GLUCOSE (AUTOMATED)2022-07-26 23:39:10 Test Item Value Reference Range Interpretation Comments POCT GLU (test code = 5260358340) 199 mg/dL 70-110 H Lab Interpretation (test code = Abnormal 49511-7) [facility]for use with [facility]arin Infusion)2022-07-26 23:32:33 Test Item Value Reference Range Interpretation Comments APTT Patient (test code = See_Comment [ Automated message] 3173-2) The system [employer] generated this result transmitted ref erence range: 26 - 36 Seconds. The re ference range was not u sed to interpret this result as normal/abnor mal. Lab Interpretation (test Normal code = 38189-0) [facility]2022-07-26 23:32:33 Test Item Value Reference Range Interpretation Comments APTT Patient (test code = See_Comment [ Automated message] 3173-2) The system [employer] generated this result transmitted ref erence range: 26 - 36 Seconds. The re ference range was not u sed to interpret this result as normal/abnor mal. Lab Interpretation (test Normal code = 08311-6) [facility] GLUCOSE (AUTOMATED)2022-07-26 16:22:25 Test Item Value Reference Range Interpretation Comments POCT GLU (test code = 4052945739) 167 mg/dL 70-110 H Lab Interpretation (test code = Abnormal 77741-4) [facility] GLUCOSE (AUTOMATED)2022-07-26 16:22:25 Test Item Value Reference Range Interpretation Comments POCT GLU (test code = 8372613466) 167 mg/dL 70-110 H Lab Interpretation (test code = Abnormal 56262-8) [facility] GLUCOSE (AUTOMATED)2022-07-26 12:31:04 Test Item Value Reference Range Interpretation Comments POCT GLU (test code = 7993890303) 164 mg/dL 70-110 H Lab Interpretation (test code = Abnormal 85991-9) [facility] GLUCOSE (AUTOMATED)2022-07-26 12:31:04 Test Item Value Reference Range Interpretation Comments POCT GLU (test code = 5890504094) 164 mg/dL 70-110 H Lab Interpretation (test code = Abnormal 92117-3) [facility] GLUCOSE (AUTOMATED)2022-07-26 11:09:37 Test Item Value Reference Range Interpretation Comments POCT GLU (test code = 2425884698) 184 mg/dL 70-110 H Lab Interpretation (test code = Abnormal 98941-5) [facility] GLUCOSE (AUTOMATED)2022-07-26 11:09:37 Test Item Value Reference Range Interpretation Comments POCT GLU (test code = 6737592291) 184 mg/dL 70-110 H Lab Interpretation (test code = Abnormal 22454-2) [facility] GLUCOSE (AUTOMATED)2022-07-26 08:53:59 Test Item Value Reference Range Interpretation Comments POCT GLU (test code = 9129728780) 200 mg/dL 70-110 H Lab Interpretation (test code = Abnormal 43587-8) [facility] GLUCOSE (AUTOMATED)2022-07-26 08:53:59 Test Item Value Reference Range Interpretation Comments POCT GLU (test code = 9318137925) 200 mg/dL 70-110 H Lab Interpretation (test code = Abnormal 48690-9) [facility] GLUCOSE (AUTOMATED)2022-07-26 05:20:56 Test Item Value Reference Range Interpretation Comments POCT GLU (test code = 8533348398) 197 mg/dL 70-110 H Lab Interpretation (test code = Abnormal 62444-2) [facility] GLUCOSE (AUTOMATED)2022-07-26 05:20:56 Test Item Value Reference Range Interpretation Comments POCT GLU (test code = 8826116108) 197 mg/dL 70-110 H Lab Interpretation (test code = Abnormal 23647-9) [id number] 03:01:42 Test Item Value Reference Range Interpretation Comments Blood Culture-Aerobic No organisms No growth Previo us (test code = 41595-6) isolated prelim inary verified result was Culture [...] Culture-Anaerobic isolated preliminar y (test code = 22573-8) verifi ed result was Culture In Progress [...] CDT Lab Interpretation Normal (test code = 84430-4) [facility] CULTURE [id number] 03:01:42 Test Item Value Reference Range Interpretation Comments Blood Culture-Aerobic No organisms No growth Previo us (test code = 44419-3) isolated prelim inary verified result was Culture [...] Culture-Anaerobic isolated preliminar y (test code = 66611-7) verifi ed result was Culture In Progress [...] CDT Lab Interpretation Normal (test code = 07320-7) [facility] GLUCOSE (AUTOMATED)2022-07-26 01:46:28 Test Item Value Reference Range Interpretation Comments POCT GLU (test code = 3608382596) 142 mg/dL 70-110 H Lab Interpretation (test code = Abnormal 36739-3) [facility] 01:46:28 Test Item Value Reference Range Interpretation Comments POCT GLU (test code = 6110867393) 142 mg/dL 70-110 H Lab Interpretation (test code = Abnormal 10774-6) [facility] GLUCOSE (AUTOMATED)2022-07-25 21:23:27 Test Item Value Reference Range Interpretation Comments POCT GLU (test code = 6503133307) 159 mg/dL 70-110 H Lab Interpretation (test code = Abnormal 94626-2) [facility] GLUCOSE (AUTOMATED)2022-07-25 21:23:27 Test Item Value Reference Range Interpretation Comments POCT GLU (test code = 7981680027) 159 mg/dL 70-110 H Lab Interpretation (test code = Abnormal 76441-9) [facility] GLUCOSE (AUTOMATED)2022-07-25 20:47:32 Test Item Value Reference Range Interpretation Comments POCT GLU (test code = 7792403165) 151 mg/dL 70-110 H Lab Interpretation (test code = Abnormal 08257-9) [facility] GLUCOSE (AUTOMATED)2022-07-25 20:47:32 Test Item Value Reference Range Interpretation Comments POCT GLU (test code = 1913008437) 151 mg/dL 70-110 H Lab Interpretation (test code = Abnormal 17624-1) [facility] GLUCOSE (AUTOMATED)2022-07-25 17:16:01 Test Item Value Reference Range Interpretation Comments POCT GLU (test code = 7564244686) 389 mg/dL 70-110 H Lab Interpretation (test code = Abnormal 89381-8) [facility] GLUCOSE (AUTOMATED)2022-07-25 17:16:01 Test Item Value Reference Range Interpretation Comments POCT GLU (test code = 5249475628) 389 mg/dL 70-110 H Lab Interpretation (test code = Abnormal 43055-6) [facility]2022-07-25 15:08:51 Test Item Value Reference Range Interpretation Comments APTT Patient (test code = See_Comment [ Automated message] 3173-2) The system [employer] generated this result transmitted ref erence range: 26 - 36 Seconds. The re ference range was not u sed to interpret this result as normal/abnor mal. Lab Interpretation (test Normal code = 75710-3) [facility]2022-07-25 15:08:51 Test Item Value Reference Range Interpretation Comments APTT Patient (test code = See_Comment [ Automated message] 3173-2) The system [employer] generated this result transmitted ref erence range: 26 - 36 Seconds. The re ference range was not u sed to interpret this result as normal/abnor mal. Lab Interpretation (test Normal code = 63630-1) [facility] GLUCOSE (AUTOMATED)2022-07-25 13:22:34 Test Item Value Reference Range Interpretation Comments POCT GLU (test code = 1348328571) 168 mg/dL 70-110 H Lab Interpretation (test code = Abnormal 17979-5) [facility] GLUCOSE (AUTOMATED)2022-07-25 13:22:34 Test Item Value Reference Range Interpretation Comments POCT GLU (test code = 1683637826) 168 mg/dL 70-110 H Lab Interpretation (test code = Abnormal 91137-7) [facility] GLUCOSE (AUTOMATED)2022-07-25 01:59:34 Test Item Value Reference Range Interpretation Comments POCT GLU (test code = 4128256068) 202 mg/dL 70-110 H Lab Interpretation (test code = Abnormal 64114-0) [facility] GLUCOSE (AUTOMATED)2022-07-25 01:59:34 Test Item Value Reference Range Interpretation Comments POCT GLU (test code = 3627533349) 202 mg/dL 70-110 H Lab Interpretation (test code = Abnormal 52313-8) [facility] METABOLIC PANEL (NA, K, CL, CO2, GLUCOSE, BUN, CREATININE, CA)2022-07-24 23:06:12 Test Item Value Reference Range Interpretation Comments NA (test code = 135 mmol/L 135-145 8494444045) K (test code = 4.1 mmol/L 3.5-5 6937932363) CL (test code = 95 mmol/L 98-108 L 5732728297) CO2 TOTAL (test code = 39 mmol/L 23-31 H 1581792063) AGAP (test code = 2-16 L 4337396234) BUN (test code = 16 mg/dL 7-23 2948490570) GLUCOSE (test code = 140 mg/dL 70-110 H 8778598699) CREATININE (test code = 0.59 mg/dL 0.6-1.25 L 9020510404) CALCIUM (test code = 8.4 mg/dL 8.6-10.6 L 5923977115) eGFR (test code = mL/min/1.73m2 5171474177) ROSLYN (test code = ROSLYN) Association of [...] tests). Lab Interpretation Abnormal (test code = 53176-5) [facility] Test Item Value Reference Range Interpretation Comments MAGNESIUM (test code = 7821810700) 2.1 mg/dL 1.7-2.4 Lab Interpretation (test code = Normal 89252-4) [facility] METABOLIC PANEL (NA, K, CL, CO2, GLUCOSE, BUN, CREATININE, CA)2022-07-24 23:06:12 Test Item Value Reference Range Interpretation Comments NA (test code = 135 mmol/L 135-145 7576956748) K (test code = 4.1 mmol/L 3.5-5 6082916063) CL (test code = 95 mmol/L 98-108 L 2341556974) CO2 TOTAL (test code = 39 mmol/L 23-31 H 3781132327) AGAP (test code = 2-16 L 6258415014) BUN (test code = 16 mg/dL 7-23 8926255145) GLUCOSE (test code = 140 mg/dL 70-110 H 7840069856) CREATININE (test code = 0.59 mg/dL 0.6-1.25 L 8455997705) CALCIUM (test code = 8.4 mg/dL 8.6-10.6 L 3959786904) eGFR (test code = mL/min/1.73m2 2220145336) ROSLYN (test code = ROSLYN) Association of [...] tests). Lab Interpretation Abnormal (test code = 06200-1) [facility] Test Item Value Reference Range Interpretation Comments MAGNESIUM (test code = 8410797263) 2.1 mg/dL 1.7-2.4 Lab Interpretation (test code = Normal 80515-3) [facility] (for use with [facility] Infusion)2022-07-24 23:00:29 Test Item Value Reference Range Interpretation Comments APTT Patient (test code See_Comment H [Au tomated message] = 3173-2) The system [employer] generated this result transmitted ref erence range: 26 - 36 Seconds. The reference range was not used to int erpret this result as normal/abnormal . Lab Interpretation (test Abnormal code = 47369-4) [facility] (for use with Heparin Infusion)2022-07-24 23:00:29 Test Item Value Reference Range Interpretation Comments APTT Patient (test code See_Comment H [Au tomated message] = 3173-2) The system [employer] generated this result transmitted ref erence range: 26 - 36 Seconds. The reference range was not used to int erpret this result as normal/abnormal . Lab Interpretation (test Abnormal code = 49768-6) [facility] GLUCOSE (AUTOMATED)2022-07-24 20:44:06 Test Item Value Reference Range Interpretation Comments POCT GLU (test code = 5822080468) 161 mg/dL 70-110 H Lab Interpretation (test code = Abnormal 20351-4) [facility] GLUCOSE (AUTOMATED)2022-07-24 20:44:06 Test Item Value Reference Range Interpretation Comments POCT GLU (test code = 7832294817) 161 mg/dL 70-110 H Lab Interpretation (test code = Abnormal 48130-6) [facility] GLUCOSE (AUTOMATED)2022-07-24 17:17:45 Test Item Value Reference Range Interpretation Comments POCT GLU (test code = 8337035107) 257 mg/dL 70-110 H Lab Interpretation (test code = Abnormal 35214-2) [facility] GLUCOSE (AUTOMATED)2022-07-24 17:17:45 Test Item Value Reference Range Interpretation Comments POCT GLU (test code = 1452936800) 257 mg/dL 70-110 H Lab Interpretation (test code = Abnormal 61034-4) [facility] GLUCOSE (AUTOMATED)2022-07-24 14:12:13 Test Item Value Reference Range Interpretation Comments POCT GLU (test code = 7191010753) 201 mg/dL 70-110 H Lab Interpretation (test code = Abnormal 32962-2) [facility] GLUCOSE (AUTOMATED)2022-07-24 14:12:13 Test Item Value Reference Range Interpretation Comments POCT GLU (test code = 4059490330) 201 mg/dL 70-110 H Lab Interpretation (test code = Abnormal 10276-4) [facility] GLUCOSE (AUTOMATED)2022-07-24 01:57:51 Test Item Value Reference Range Interpretation Comments POCT GLU (test code = 7571087256) 214 mg/dL 70-110 H Lab Interpretation (test code = Abnormal 45957-0) [facility] GLUCOSE (AUTOMATED)2022-07-24 01:57:51 Test Item Value Reference Range Interpretation Comments POCT GLU (test code = 9364995599) 214 mg/dL 70-110 H Lab Interpretation (test code = Abnormal 82151-6) [facility] GLUCOSE (AUTOMATED)2022-07-23 21:55:56 Test Item Value Reference Range Interpretation Comments POCT GLU (test code = 8888094770) 184 mg/dL 70-110 H Lab Interpretation (test code = Abnormal 83033-1) [facility] GLUCOSE (AUTOMATED)2022-07-23 21:55:56 Test Item Value Reference Range Interpretation Comments POCT GLU (test code = 0810549770) 184 mg/dL 70-110 H Lab Interpretation (test code = Abnormal 75333-0) [facility] GLUCOSE (AUTOMATED)2022-07-23 17:27:48 Test Item Value Reference Range Interpretation Comments POCT GLU (test code = 5775023505) 259 mg/dL 70-110 H Lab Interpretation (test code = Abnormal 57963-8) [facility] GLUCOSE (AUTOMATED)2022-07-23 17:27:48 Test Item Value Reference Range Interpretation Comments POCT GLU (test code = 5238410235) 259 mg/dL 70-110 H Lab Interpretation (test code = Abnormal 71597-4) [facility] GLUCOSE (AUTOMATED)2022-07-23 13:05:59 Test Item Value Reference Range Interpretation Comments POCT GLU (test code = 1772183537) 154 mg/dL 70-110 H Lab Interpretation (test code = Abnormal 26938-1) [facility] GLUCOSE (AUTOMATED)2022-07-23 13:05:59 Test Item Value Reference Range Interpretation Comments POCT GLU (test code = 2160309432) 154 mg/dL 70-110 H Lab Interpretation (test code = Abnormal 98389-8) [facility] GLUCOSE (AUTOMATED)2022-07-23 09:58:20 Test Item Value Reference Range Interpretation Comments POCT GLU (test code = 8123640336) 177 mg/dL 70-110 H Lab Interpretation (test code = Abnormal 78872-8) [facility] GLUCOSE (AUTOMATED)2022-07-23 09:58:20 Test Item Value Reference Range Interpretation Comments POCT GLU (test code = 4068626975) 177 mg/dL 70-110 H Lab Interpretation (test code = Abnormal 18173-2) [facility] GLUCOSE (AUTOMATED)2022-07-22 21:30:57 Test Item Value Reference Range Interpretation Comments POCT GLU (test code = 3005916086) 194 mg/dL 70-110 H Lab Interpretation (test code = Abnormal 11298-2) [facility] GLUCOSE (AUTOMATED)2022-07-22 21:30:57 Test Item Value Reference Range Interpretation Comments POCT GLU (test code = 6462571886) 194 mg/dL 70-110 H Lab Interpretation (test code = Abnormal 51773-6) [facility] GLUCOSE (AUTOMATED)2022-07-22 16:52:50 Test Item Value Reference Range Interpretation Comments POCT GLU (test code = 6390863915) 197 mg/dL 70-110 H Lab Interpretation (test code = Abnormal 44791-6) [facility] GLUCOSE (AUTOMATED)2022-07-22 16:52:50 Test Item Value Reference Range Interpretation Comments POCT GLU (test code = 1800189275) 197 mg/dL 70-110 H Lab Interpretation (test code = Abnormal 86367-0) [facility] GLUCOSE (AUTOMATED)2022-07-22 13:22:34 Test Item Value Reference Range Interpretation Comments POCT GLU (test code = 1576762507) 150 mg/dL 70-110 H Lab Interpretation (test code = Abnormal 82806-6) [facility] GLUCOSE (AUTOMATED)2022-07-22 13:22:34 Test Item Value Reference Range Interpretation Comments POCT GLU (test code = 5795027579) 150 mg/dL 70-110 H Lab Interpretation (test code = Abnormal 25823-6) [facility] [id number] 09:38:27 Test Item Value Reference Range Interpretation Comments NT-proBNP (test code 2160 pg/mL See_Comment H [Autom ated = 8765738670) message] The system which generated this result transmitted reference range : <=125. The reference range was not used to interpret this result as normal/abnormal . ROSLYN (test code = ROSLYN) Biotin has been reported to cause a negative bias, interpret results relative to patient's use of biotin. Lab Interpretation Abnormal (test code = 57597-5) [facility] [id number] 09:38:27 Test Item Value Reference Range Interpretation Comments NT-proBNP (test code 2160 pg/mL See_Comment H [Autom ated = 0877529142) message] The system which generated this result transmitted reference range : <=125. The reference range was not used to interpret this result as normal/abnormal . ROSLYN (test code = ROSLYN) Biotin has been reported to cause a negative bias, interpret results relative to patient's use of biotin. Lab Interpretation Abnormal (test code = 23229-1) [facility] Test Item Value Reference Range Interpretation Comments MAGNESIUM (test code = 7566217753) 1.8 mg/dL 1.7-2.4 Lab Interpretation (test code = Normal 31523-5) [facility] 09:31[facility]29 Test Item Value Reference Range Interpretation Comments MAGNESIUM (test code = 2493782928) 1.8 mg/dL 1.7-2.4 Lab Interpretation (test code = Normal 39183-7) [facility] (NA, K, CL, CO2, GLUCOSE, BUN, CREATININE, CA)2022-07-22 09:31:09 Test Item Value Reference Range Interpretation Comments NA (test code = 137 mmol/L 135-145 4389681321) K (test code = 4.0 mmol/L 3.5-5 0432269001) CL (test code = 98 mmol/L 98-108 8510412064) CO2 TOTAL (test code = 34 mmol/L 23-31 H 7049043292) AGAP (test code = 2-16 4056069043) BUN (test code = 16 mg/dL 7-23 5144105573) GLUCOSE (test code = 177 mg/dL 70-110 H 2721463439) CREATININE (test code = 0.66 mg/dL 0.6-1.25 6346806668) CALCIUM (test code = 8.2 mg/dL 8.6-10.6 L 5726299673) eGFR (test code = mL/min/1.73m2 2448377001) ROSLYN (test code = ROSLYN) Association of [...] tests). Lab Interpretation Abnormal (test code = 46855-5) [facility] METABOLIC PANEL (NA, K, CL, CO2, GLUCOSE, BUN, CREATININE, CA)2022-07-22 09:31:09 Test Item Value Reference Range Interpretation Comments NA (test code = 137 mmol/L 135-145 9162843143) K (test code = 4.0 mmol/L 3.5-5 9907931323) CL (test code = 98 mmol/L 98-108 5529072254) CO2 TOTAL (test code = 34 mmol/L 23-31 H 5288540410) AGAP (test code = 2-16 0169329364) BUN (test code = 16 mg/dL 7-23 1498888216) GLUCOSE (test code = 177 mg/dL 70-110 H 0433830738) CREATININE (test code = 0.66 mg/dL 0.6-1.25 7432413889) CALCIUM (test code = 8.2 mg/dL 8.6-10.6 L 8559112684) eGFR (test code = mL/min/1.73m2 6010227594) ROSLYN (test code = ROSLYN) Association of [...] tests). Lab Interpretation Abnormal (test code = 99134-5) [facility]87211[facility] (ALB,T.PRO,BILI T,BU/BC,ALT,AST,ALK PHOS)2022-07-22 09:30:44 Test Item Value Reference Range Interpretation Comments TOTAL BILI (test code = 6521134138) 1.2 mg/dL 0.1-1.1 H BILI UNCON (test code = 7536811745) 0.9 mg/dL 0.1-1.1 BILI CONJ (test code = 7723810393) 0.0 mg/dL 0-0.3 T PROTEIN (test code = 3354411835) 6.5 g/dL 6.3-8.2 ALBUMIN (test code = 0438636199) 3.7 g/dL 3.5-5 ALK PHOS (test code = 9030555007) 67 U/L 34-122 ALTv (test code = 1742-6) 33 U/L 5-50 AST(SGOT) (test code = 8618053170) 30 U/L 13-40 Lab Interpretation (test code = Abnormal 89998-5) [facility]2022-[facility]-12 09:30:44 Test Item Value Reference Range Interpretation Comments PHOSPHORUS (test code = 2998616755) 3.6 mg/dL 2.5-5 Lab Interpretation (test code = Normal 82157-5) [facility] (67311) (ALB,T.PRO,BILI T,BU/BC,ALT,AST,ALK PHOS)2022-07-22 09:30:44 Test Item Value Reference Range Interpretation Comments TOTAL BILI (test code = 3275102352) 1.2 mg/dL 0.1-1.1 H BILI UNCON (test code = 8975164065) 0.9 mg/dL 0.1-1.1 BILI CONJ (test code = 8569013749) 0.0 mg/dL 0-0.3 T PROTEIN (test code = 0491402764) 6.5 g/dL 6.3-8.2 ALBUMIN (test code = 0414951572) 3.7 g/dL 3.5-5 ALK PHOS (test code = 5860423398) 67 U/L 34-122 ALTv (test code = 1742-6) 33 U/L 5-50 AST(SGOT) (test code = 0777692215) 30 U/L 13-40 Lab Interpretation (test code = Abnormal 70895-6) [facility]22-[facility]12 09:30:44 Test Item Value Reference Range Interpretation Comments PHOSPHORUS (test code = 3010244658) 3.6 mg/dL 2.5-5 Lab Interpretation (test code = Normal 62095-2) [facility] WITH [id number] 09:23:08 Test Item Value Reference Range Interpretation Comments WBC (test code = See_Comment H [Automated 5046-2) message] The system which generated this result transmit artem reference range : 4.20 - 10.70 10*3/?L. The reference range was not used to interpret this result as normal/abnormal . RBC (test code = See_Comment [Automated 446-8) message] The system which generated this result [...] RDW-SD (test code = 46.6 fL 38.5-51.6 99937-5) RDW-CV (test code = 13.5 % 12.1-15.4 788-0) PLT (test code = See_Comment L [Automated 777-3) message] The system which generated this result transmit artem reference range : 150 - 328 10*3/ ?L. The reference range was not u sed to interpret th is result as normal/abnormal . MPV (test code = 12.7 fL 9.8-13 07764-3) NRBC/100 WBC (test See_Comment [Automat ed code = 8348610274) message] The system which generated this result transmit artem reference range : 0.0 - 10.0 /100 WBCs. The reference range was not used to interpret this result as normal/abnormal . NRBC x10^3 (test code See_Comment [Auto mated = 9268059644) message] The system which generated this result transmit artem reference range : 10*3/?L. The reference range was not used to interpret this result as normal/abnormal . GRAN MAT (NEUT) % 71.3 % (test code = 770-8) IMM GRAN % (test code 0.40 % = 7820681734) LYMPH % (test code = 17.4 % 736-9) MONO % (test code = 9.8 % 5905-5) EOS % (test code = 0.8 % 713-8) BASO % (test code = 0.3 % 706-2) GRAN MAT x10^3(ANC) 10.18 10*3/uL 1.99-6.95 H (test code = 1552407950) IMM GRAN x10^3 (test 0.06 10*3/uL 0-0.06 code = 5573069974) LYMPH x10^3 (test code 2.49 10*3/uL 1.09-3.23 = 731-0) MONO x10^3 (test code 1.40 10*3/uL 0.36-1.02 H = 742-7) EOS x10^3 (test code = 0.11 10*3/uL 0.06-0.53 711-2) BASO x10^3 (test code 0.04 10*3/uL 0.01-0.09 = 704-7) Lab Interpretation Abnormal (test code = 40187-5) [facility] WITH [id number] 09:23:08 Test Item Value Reference Range Interpretation [...] RDW-SD (test code = 46.6 fL 38.5-51.6 24144-0) RDW-CV (test code = 13.5 % 12.1-15.4 788-0) PLT (test code = See_Comment L [Automated 777-3) message] The system which generated this result transmit artem reference range : 150 - 328 10*3/ ?L. The reference range was not u sed to interpret th is result as normal/abnormal . MPV (test code = 12.7 fL 9.8-13 88861-0) NRBC/100 WBC (test See_Comment [Automat ed code = 4126001695) message] The system which generated this result transmit artem reference range : 0.0 - 10.0 /100 WBCs. The reference range was not used to interpret this result as normal/abnormal . NRBC x10^3 (test code See_Comment [Auto mated = 7038820044) message] The system which generated this result transmit artem reference range : 10*3/?L. The reference range was not used to interpret this result as normal/abnormal . GRAN MAT (NEUT) % 71.3 % (test code = 770-8) IMM GRAN % (test code 0.40 % = 9449196541) LYMPH % (test code = 17.4 % 736-9) MONO % (test code = 9.8 % 5905-5) EOS % (test code = 0.8 % 713-8) BASO % (test code = 0.3 % 706-2) GRAN MAT x10^3(ANC) 10.18 10*3/uL 1.99-6.95 H (test code = 7644545451) IMM GRAN x10^3 (test 0.06 10*3/uL 0-0.06 code = 9226854790) LYMPH x10^3 (test code 2.49 10*3/uL 1.09-3.23 = 731-0) MONO x10^3 (test code 1.40 10*3/uL 0.36-1.02 H = 742-7) EOS x10^3 (test code = 0.11 10*3/uL 0.06-0.53 711-2) BASO x10^3 (test code 0.04 10*3/uL 0.01-0.09 = 704-7) Lab Interpretation Abnormal (test code = 58596-0) [facility] GLUCOSE (AUTOMATED)2022-07-22 01:47:13 Test Item Value Reference Range Interpretation Comments POCT GLU (test code = 4462996027) 220 mg/dL 70-110 H Lab Interpretation (test code = Abnormal 17291-1) [facility] GLUCOSE (AUTOMATED)2022-07-22 01:47:13 Test Item Value Reference Range Interpretation Comments POCT GLU (test code = 4133561196) 220 mg/dL 70-110 H Lab Interpretation (test code = Abnormal 83394-6) [facility]66403)(TOTAL CHOLESTEROL, TRIGLYCERIDES, HDL)2022-07-22 00:19:28 Test Item Value Reference Range Interpretation Comments CHOL (test code = 121 mg/dL 120-200 6007412816) HDL (test code = 28 mg/dL See_Comment L [Automated message] 7377370697) The system [employer] generated this result transmit artem reference range : >=40. The refer ence range was not u sed to interpret th is result as normal/abnormal . HDLC RATIO (test code = See_Comment [Au tomated message] 1081427748) The system [employer] generated this result transmit artem reference range : <=5.0. The refe rence range was not u sed to interpret th is result as normal/abnormal . TRIG (test code = 119 mg/dL 30-170 9090134856) LDL CHOL (test code = 69 mg/dL See_Comment [Auto mated message] 30424-7) The system [employer] generated this result transmit artem reference range : <=160. The refe rence range was not u sed to interpret th is result as normal/abnormal . VLDL (test code = 24 mg/dL 5-60 1263486830) Lab Interpretation (test Abnormal code = 16476-9) [facility] PANEL (16120)(TOTAL CHOLESTEROL, TRIGLYCERIDES, HDL)2022-07-22 00:19:28 Test Item Value Reference Range Interpretation Comments CHOL (test code = 121 mg/dL 120-200 7840101611) HDL (test code = 28 mg/dL See_Comment L [Automated message] 2114798572) The system [employer] generated this result transmit artem reference range : >=40. The refer ence range was not u sed to interpret th is result as normal/abnormal . HDLC RATIO (test code = See_Comment [Au tomated message] 7365479545) The system [employer] generated this result transmit artem reference range : <=5.0. The refe rence range was not u sed to interpret th is result as normal/abnormal . TRIG (test code = 119 mg/dL 30-170 5528091764) LDL CHOL (test code = 69 mg/dL See_Comment [Auto mated message] 05712-6) The system [employer] generated this result transmit artem reference range : <=160. The refe rence range was not u sed to interpret th is result as normal/abnormal . VLDL (test code = 24 mg/dL 5-60 9756456280) Lab Interpretation (test Abnormal code = 01712-9) [facility] 00:00:55 Test Item Value Reference Range Interpretation Comments Height (test code = in 0112119092) Weight (test code = lbs 1076584622) Systolic BP (test code = mmHg 2838634546) Diastolic BP (test code mmHg = 4060731523) Heart Rate (test code = bpm 6878225269) BSA (test code = 2.04 m2 6765924157) Ao root annulus (test 3.5 cm code = 1261680347) Ao root diam (test code 3.50 cm = 4877900575) Aortic root (test code = 3.5 cm 3448783841) LVOT diameter (test code 2.19 cm = 3655099131) LVOT area (test code = 3.80 cm2 7084124790) LVIDD (test code = 5.30 cm 9851568806) Left Ventricular End 135.3 mL Diastolic Volume by Teichholz Method (test code = 7259015) IVS (test code = 1.26 cm 0697425512) Interventricular Septum 1.26 cm Diastolic Thickness by 2D (test code = 2848199) LVPWD (test code = 1.26 cm 5018245503) PW (test code = 1.26 cm 0.6-1.0 8424905170) EF(Teich) (test code = 16.40 % 2531793848) LVIDS (test code = 4.90 cm 8523095506) Left Ventricular End 113.1 mL Systolic Volume by Teichholz Method (test code = 8592932) FS (test code = 7 % 0286016347) EF - 2D (test code = 16.40 % 64320745) LA size (test code = 4.3 cm 9276950960) TR Peak Anthony (test code = 249.6 cm/s 3344516021) Triscuspid Valve mmHg Regurgitation Peak Gradient (test code = 1293058223) LAV(MOD-sp4) (test code 79.00 mL = 6357805301) E wave decelartion time 0.13 s (test code = 3131024094) MV Peak E Anthony (test code 82.3 cm/s = 6149290377) MV stenosis pressure 1/2 38.8 ms time (test code = 0876903301) MV Peak A Anthony (test code 40.8 cm/s = 8410219066) E/A ratio (test code = ratio 5796285910) MR max PG (test code = 61.50 mm[Hg] 9392744341) MR max anthony (test code = 392.20 cm/s 2488419566) Mr max anthony (test code = 392.2 m/s 4151368648) MV Prop V (test code = 33.40 cm/s 1562563835) MV E/e' septal (test 12.6 cm/s code = 8418747516) Tapse (test code = 1.17 cm 0294834488) LVOT stroke volume (test 52.20 cm3 code = 4045447076) LVOT peak anthony (test code 86.4 cm/s = 0108512147) LVOT mn grad (test code mmHg = 0949485145) AV LVOT peak gradient mmHg (test code = 3023499231) LVOT peak VTI (test code 13.9 cm = 0212036543) LV V1 mean (test code = 57.20 cm/s 7635093869) Aortic valve mean 94.3 cm/s velocity (test code = 8500588284) Ao peak anthony (test code = 125.8 cm/s 3295580384) Ao VTI (test code = 22.6 cm 9722487176) AV area by cont VTI 2.3 cm2 (test code = 6718270686) AV area peak anthony (test 2.6 cm2 code = 6197141576) Ao max PG (test code = 6.30 mm[Hg] 9784355785) AV peak gradient (test mmHg code = 7219124269) AV valve area (test code 2.31 cm2 = 4648497012) AV mean gradient (test mmHg code = 5033785406) Radiology Study observation (narrative) (test code = 67358-9) ROSLYN (test code = ROSLYN) ?Left?Ventricle: Left [...] Interpretation Comments Height (test code = in 6567381920) Weight (test code = lbs 5435668816) Systolic BP (test code = mmHg 9711716004) Diastolic BP (test code mmHg = 0583872100) Heart Rate (test code = bpm 1063942625) BSA (test code = 2.04 m2 5949973780) Ao root annulus (test 3.5 cm code = 1711415837) Ao root diam (test code 3.50 cm = 7210692094) Aortic root (test code = 3.5 cm 0173018923) LVOT diameter (test code 2.19 cm = 1415038119) LVOT area (test code = 3.80 cm2 0024339489) LVIDD (test code = 5.30 cm 5501662526) Left Ventricular End 135.3 mL Diastolic Volume by Teichholz Method (test code = 4530198) IVS (test code = 1.26 cm 0966084706) Interventricular Septum 1.26 cm Diastolic Thickness by 2D (test code = 2161950) LVPWD (test code = 1.26 cm 1757530549) PW (test code = 1.26 cm 0.6-1.0 3911169781) EF(Teich) (test code = 16.40 % 8841840519) LVIDS (test code = 4.90 cm 1093953834) Left Ventricular End 113.1 mL Systolic Volume by Teichholz Method (test code = 3368046) FS (test code = 7 % 7432386856) EF - 2D (test code = 16.40 % 10257893) LA size (test code = 4.3 cm 8925194933) TR Peak Anthony (test code = 249.6 cm/s 7340677627) Triscuspid Valve mmHg Regurgitation Peak Gradient (test code = 3755130058) LAV(MOD-sp4) (test code 79.00 mL = 1639722810) E wave decelartion time 0.13 s (test code = 7199302903) MV Peak E Anthony (test code 82.3 cm/s = 2342550667) MV stenosis pressure 1/2 38.8 ms time (test code = 7239413751) MV Peak A Anthony (test code 40.8 cm/s = 7218539360) E/A ratio (test code = ratio 4582465519) MR max PG (test code = 61.50 mm[Hg] 4929751112) MR max anthony (test code = 392.20 cm/s 8695434674) Mr max anthony (test code = 392.2 m/s 5985625111) MV Prop V (test code = 33.40 cm/s 7397976644) MV E/e' septal (test 12.6 cm/s code = 6784664971) Tapse (test code = 1.17 cm 0110573383) LVOT stroke volume (test 52.20 cm3 code = 9330635966) LVOT peak anthony (test code 86.4 cm/s = 6662448029) LVOT mn grad (test code mmHg = 1351075365) AV LVOT peak gradient mmHg (test code = 2253953970) LVOT peak VTI (test code 13.9 cm = 5939098980) LV V1 mean (test code = 57.20 cm/s 1603820113) Aortic valve mean 94.3 cm/s velocity (test code = 0862458349) Ao peak anthony (test code = 125.8 cm/s 3385148602) Ao VTI (test code = 22.6 cm 9010748332) AV area by cont VTI 2.3 cm2 (test code = 0409087133) AV area peak anthony (test 2.6 cm2 code = 0860751189) Ao max PG (test code = 6.30 mm[Hg] 9564195671) AV peak gradient (test mmHg code = 4615311180) AV valve area (test code 2.31 cm2 = 6127771111) AV mean gradient (test mmHg code = 4138165547) Radiology Study observation (narrative) (test code = 16023-6) ROSLYN (test code = ROSLYN) ?Left?Ventricle: Left [...] mL of Lumason ultrasound enhancing agent used. [facility] GLUCOSE (AUTOMATED)2022-07-21 21:54:48 Test Item Value Reference Range Interpretation Comments POCT GLU (test code = 6784198235) 161 mg/dL 70-110 H Lab Interpretation (test code = Abnormal 34302-9) [facility] GLUCOSE (AUTOMATED)2022-07-21 21:54:48 Test Item Value Reference Range Interpretation Comments POCT GLU (test code = 9784365518) 161 mg/dL 70-110 H Lab Interpretation (test code = Abnormal 48781-6) [facility] GLUCOSE (AUTOMATED)2022-07-21 16:47:05 Test Item Value Reference Range Interpretation Comments POCT GLU (test code = 7521142922) 132 mg/dL 70-110 H Lab Interpretation (test code = Abnormal 73033-3) [facility] GLUCOSE (AUTOMATED)2022-07-21 16:47:05 Test Item Value Reference Range Interpretation Comments POCT GLU (test code = 6492409174) 132 mg/dL 70-110 H Lab Interpretation (test code = Abnormal 14037-9) [facility] GLUCOSE (AUTOMATED)2022-07-21 15:03:01 Test Item Value Reference Range Interpretation Comments POCT GLU (test code = 0110615910) 182 mg/dL 70-110 H Lab Interpretation (test code = Abnormal 30488-9) [facility] GLUCOSE (AUTOMATED)2022-07-21 15:03:01 Test Item Value Reference Range Interpretation Comments POCT GLU (test code = 5388447684) 182 mg/dL 70-110 H Lab Interpretation (test code = Abnormal 34788-4) [facility] with [id number] 14:58:14 Test Item Value Reference Range Interpretation Comments WBC (test code = See_Comment H [Automated 8590-2) message] The system which generated this result transmit artem reference range : 4.20 - 10.70 10*3/?L. The reference range was not used to interpret this result as normal/abnormal . RBC (test code = See_Comment [Automated 019-8) message] The system which generated this result [...] RDW-SD (test code = 46.4 fL 38.5-51.6 26084-2) RDW-CV (test code = 13.5 % 12.1-15.4 788-0) PLT (test code = See_Comment [Automated 777-3) message] The system which generated this result transmit artem reference range : 150 - 328 10*3/ ?L. The reference range was not u sed to interpret th is result as normal/abnormal . MPV (test code = 13.0 fL 9.8-13 41327-9) NRBC/100 WBC (test See_Comment [Automat ed code = 2155208935) message] The system which generated this result transmit artem reference range : 0.0 - 10.0 /100 WBCs. The reference range was not used to interpret this result as normal/abnormal . NRBC x10^3 (test code See_Comment [Auto mated = 4230464388) message] The system which generated this result transmit artem reference range : 10*3/?L. The reference range was not used to interpret this result as normal/abnormal . GRAN MAT (NEUT) % 71.1 % (test code = 770-8) IMM GRAN % (test code 0.40 % = 8641107996) LYMPH % (test code = 17.6 % 736-9) MONO % (test code = 10.3 % 5905-5) EOS % (test code = 0.3 % 713-8) BASO % (test code = 0.3 % 706-2) GRAN MAT x10^3(ANC) 10.55 10*3/uL 1.99-6.95 H (test code = 2992586191) IMM GRAN x10^3 (test 0.06 10*3/uL 0-0.06 code = 3666531130) LYMPH x10^3 (test code 2.61 10*3/uL 1.09-3.23 = 731-0) MONO x10^3 (test code 1.53 10*3/uL 0.36-1.02 H = 742-7) EOS x10^3 (test code = 0.04 10*3/uL 0.06-0.53 L 711-2) BASO x10^3 (test code 0.04 10*3/uL 0.01-0.09 = 704-7) BANDS (test code = Increased A 3126549461) REACT LYMPHS (test Rare code = 1451793202) GIANT PLATELETS (test Present See_Comment A [Auto mated code = 5908-9) message] The system which generated this result transmit artem reference range : (none). The reference range was not used to interpret this result as normal/abnormal . Lab Interpretation Abnormal (test code = 04636-4) [facility] with [id number] 14:58:14 Test Item Value Reference Range Interpretation [...] RDW-SD (test code = 46.4 fL 38.5-51.6 40755-9) RDW-CV (test code = 13.5 % 12.1-15.4 788-0) PLT (test code = See_Comment [Automated 777-3) message] The system which generated this result transmit artem reference range : 150 - 328 10*3/ ?L. The reference range was not u sed to interpret th is result as normal/abnormal . MPV (test code = 13.0 fL 9.8-13 79793-4) NRBC/100 WBC (test See_Comment [Automat ed code = 3664487443) message] The system which generated this result transmit artem reference range : 0.0 - 10.0 /100 WBCs. The reference range was not used to interpret this result as normal/abnormal . NRBC x10^3 (test code See_Comment [Auto mated = 1114927146) message] The system which generated this result transmit artem reference range : 10*3/?L. The reference range was not used to interpret this result as normal/abnormal . GRAN MAT (NEUT) % 71.1 % (test code = 770-8) IMM GRAN % (test code 0.40 % = 1114002996) LYMPH % (test code = 17.6 % 736-9) MONO % (test code = 10.3 % 5905-5) EOS % (test code = 0.3 % 713-8) BASO % (test code = 0.3 % 706-2) GRAN MAT x10^3(ANC) 10.55 10*3/uL 1.99-6.95 H (test code = 9207478831) IMM GRAN x10^3 (test 0.06 10*3/uL 0-0.06 code = 7947834410) LYMPH x10^3 (test code 2.61 10*3/uL 1.09-3.23 = 731-0) MONO x10^3 (test code 1.53 10*3/uL 0.36-1.02 H = 742-7) EOS x10^3 (test code = 0.04 10*3/uL 0.06-0.53 L 711-2) BASO x10^3 (test code 0.04 10*3/uL 0.01-0.09 = 704-7) BANDS (test code = Increased A 4732155496) REACT LYMPHS (test Rare code = 5455331956) GIANT PLATELETS (test Present See_Comment A [Auto mated code = 5908-9) message] The system which generated this result transmit artem reference range : (none). The reference range was not used to interpret this result as normal/abnormal . Lab Interpretation Abnormal (test code = 91969-4) [facility] GLUCOSE (AUTOMATED)2022-07-21 13:20:46 Test Item Value Reference Range Interpretation Comments POCT GLU (test code = 1426282271) 148 mg/dL 70-110 H Lab Interpretation (test code = Abnormal 47212-6) [facility] GLUCOSE (AUTOMATED)2022-07-21 13:20:46 Test Item Value Reference Range Interpretation Comments POCT GLU (test code = 5366611328) 148 mg/dL 70-110 H Lab Interpretation (test code = Abnormal 30574-5) [facility] Metabolic Panel (NA, K, CL, CO2, GLUCOSE, BUN, CREATININE, CA)2022-07-21 13:17:35 Test Item Value Reference Range Interpretation Comments NA (test code = 134 mmol/L 135-145 L 2149507743) K (test code = 4.1 mmol/L 3.5-5 5627064690) CL (test code = 99 mmol/L 98-108 6948756371) CO2 TOTAL (test code = 32 mmol/L 23-31 H 5115189916) AGAP (test code = 2-16 9215334964) BUN (test code = 17 mg/dL 7-23 9907492034) GLUCOSE (test code = 186 mg/dL 70-110 H 5368431229) CREATININE (test code = 0.65 mg/dL 0.6-1.25 8214412794) CALCIUM (test code = 8.2 mg/dL 8.6-10.6 L 6240673314) eGFR (test code = mL/min/1.73m2 2292642105) ROSLYN (test code = ROSLYN) Association of [...] tests). Lab Interpretation Abnormal (test code = 15653-4) [facility] Metabolic Panel (NA, K, CL, CO2, GLUCOSE, BUN, CREATININE, CA)2022-07-21 13:17:35 Test Item Value Reference Range Interpretation Comments NA (test code = 134 mmol/L 135-145 L 8102725812) K (test code = 4.1 mmol/L 3.5-5 3360923819) CL (test code = 99 mmol/L 98-108 6041405245) CO2 TOTAL (test code = 32 mmol/L 23-31 H 6318763029) AGAP (test code = 2-16 1455471116) BUN (test code = 17 mg/dL 7-23 9554056208) GLUCOSE (test code = 186 mg/dL 70-110 H 1671591779) CREATININE (test code = 0.65 mg/dL 0.6-1.25 9341083363) CALCIUM (test code = 8.2 mg/dL 8.6-10.6 L 7265540014) eGFR (test code = mL/min/1.73m2 8085372627) ROSLYN (test code = ROSLYN) Association of [...] tests). Lab Interpretation Abnormal (test code = 00781-6) [facility]AM[facility] [id number] 12:35:48 Test Item Value Reference Interpretation Comments Range TROPONIN I (test 0.032 ng/mL See_Comment [Automated code = 5488788437) message] The system which generated this result [...] biotin. Lab Interpretation Normal (test code = 25416-3) [facility] [id number] 12:35:48 Test Item Value Reference Interpretation Comments Range TROPONIN I (test 0.032 ng/mL See_Comment [Automated code = 1289884486) message] The system which generated this result [...] biotin. Lab Interpretation Normal (test code = 85000-7) [facility] [id number] 12:32:47 Test Item Value Reference Range Interpretation Comments NT-proBNP (test code 3830 pg/mL See_Comment H [Autom ated = 8238274404) message] The system which generated this result transmitted reference range : <=125. The reference range was not used to interpret this result as normal/abnormal . ROSLYN (test code = ROSLYN) Biotin has been reported to cause a negative bias, interpret results relative to patient's use of biotin. Lab Interpretation Abnormal (test code = 50456-4) [facility] [id number] 12:32:47 Test Item Value Reference Range Interpretation Comments NT-proBNP (test code 3830 pg/mL See_Comment H [Autom ated = 8468298063) message] The system which generated this result transmitted reference range : <=125. The reference range was not used to interpret this result as normal/abnormal . ROSLYN (test code = ROSLYN) Biotin has been reported to cause a negative bias, interpret results relative to patient's use of biotin. Lab Interpretation Abnormal (test code = 72587-0) [facility] [id number] 12:24:10 Test Item Value Reference Range Interpretation Comments MAGNESIUM (test code = 0478083355) 1.8 mg/dL 1.7-2.4 Lab Interpretation (test code = Normal 58164-4) [facility] [id number] 12:24:10 Test Item Value Reference Range Interpretation Comments MAGNESIUM (test code = 9548837756) 1.8 mg/dL 1.7-2.4 Lab Interpretation (test code = Normal 73196-1) [facility] GLUCOSE (AUTOMATED)2022-07-21 04:19:16 Test Item Value Reference Range Interpretation Comments POCT GLU (test code = 3685779448) 169 mg/dL 70-110 H Lab Interpretation (test code = Abnormal 38899-9) [facility] GLUCOSE (AUTOMATED)2022-07-21 04:19:16 Test Item Value Reference Range Interpretation Comments POCT GLU (test code = 2635034974) 169 mg/dL 70-110 H Lab Interpretation (test code = Abnormal 54555-9) [facility] GLUCOSE (AUTOMATED)2022-07-21 02:03:28 Test Item Value Reference Range Interpretation Comments POCT GLU (test code = 1960371407) 242 mg/dL 70-110 H Lab Interpretation (test code = Abnormal 90179-8) [facility] GLUCOSE (AUTOMATED)2022-07-21 02:03:28 Test Item Value Reference Range Interpretation Comments POCT GLU (test code = 4636465409) 242 mg/dL 70-110 H Lab Interpretation (test code = Abnormal 34659-2) [facility]cos[facility] Hemoglobin (A1C)2022-07-21 00:46:20 Test Item Value Reference Range Interpretation Comments HGB A1C (test code = 11.1 % 4-5.7 H 4548-4) ROSLYN (test code = ROSLYN) Reference RangesNormal: <5.7%Prediabetes: 5.7 - 6.4%Diabetes: > 6.5% Lab Interpretation (test Abnormal code = 96531-9) [facility] Hem[facility] (A1C)2022-07-21 00:46:20 Test Item Value Reference Range Interpretation Comments HGB A1C (test code = 11.1 % 4-5.7 H 4548-4) ROSLYN (test code = ROSLYN) Reference RangesNormal: <5.7%Prediabetes: 5.7 - 6.4%Diabetes: > 6.5% Lab Interpretation (test Abnormal code = 61646-9) [facility] GLUCOSE (AUTOMATED)2022-07-20 22:27:55 Test Item Value Reference Range Interpretation Comments POCT GLU (test code = 8154992944) 234 mg/dL 70-110 H Lab Interpretation (test code = Abnormal 51916-3) [facility] GLUCOSE (AUTOMATED)2022-07-20 22:27:55 Test Item Value Reference Range Interpretation Comments POCT GLU (test code = 3429484902) 234 mg/dL 70-110 H Lab Interpretation (test code = Abnormal 92275-8) [facility] [id number] 17:21:08 Test Item Value Reference Range Interpretation Comments NT-proBNP (test code 3250 pg/mL See_Comment H [Autom ated = 2965527547) message] The system which generated this result transmitted reference range : <=125. The reference range was not used to interpret this result as normal/abnormal . ROSLYN (test code = ROSLYN) Biotin has been reported to cause a negative bias, interpret results relative to patient's use of biotin. Lab Interpretation Abnormal (test code = 94912-7) [facility] [id number] 17:21:08 Test Item Value Reference Range Interpretation Comments NT-proBNP (test code 3250 pg/mL See_Comment H [Autom ated = 1705147818) message] The system which generated this result transmitted reference range : <=125. The reference range was not used to interpret this result as normal/abnormal . ROSLYN (test code = ROSLYN) Biotin has been reported to cause a negative bias, interpret results relative to patient's use of biotin. Lab Interpretation Abnormal (test code = 88175-9) [facility] WITH [id number] 17:16:49 Test Item Value Reference Range Interpretation [...] RDW-SD (test code = 44.7 fL 38.5-51.6 64884-9) RDW-CV (test code = 13.7 % 12.1-15.4 788-0) PLT (test code = See_Comment [Automated 777-3) message] The system which generated this result transmit artem reference range : 150 - 328 10*3/ ?L. The reference range was not u sed to interpret th is result as normal/abnormal . MPV (test code = 12.5 fL 9.8-13 16576-8) NRBC/100 WBC (test See_Comment [Automat ed code = 0962450720) message] The system which generated this result transmit artem reference range : 0.0 - 10.0 /100 WBCs. The reference range was not used to interpret this result as normal/abnormal . NRBC x10^3 (test code See_Comment [Auto mated = 8710123161) message] The system which generated this result transmit artem reference range : 10*3/?L. The reference range was not used to interpret this result as normal/abnormal . GRAN MAT (NEUT) % 76.6 % (test code = 770-8) IMM GRAN % (test code 0.70 % = 5882383412) LYMPH % (test code = 13.8 % 736-9) MONO % (test code = 8.5 % 5905-5) EOS % (test code = 0.1 % 713-8) BASO % (test code = 0.3 % 706-2) GRAN MAT x10^3(ANC) 17.13 10*3/uL 1.99-6.95 H (test code = 7348096568) IMM GRAN x10^3 (test 0.16 10*3/uL 0-0.06 H code = 1929981823) LYMPH x10^3 (test code 3.10 10*3/uL 1.09-3.23 = 731-0) MONO x10^3 (test code 1.91 10*3/uL 0.36-1.02 H = 742-7) EOS x10^3 (test code = 0.06-0.53 L 711-2) BASO x10^3 (test code 0.07 10*3/uL 0.01-0.09 = 704-7) BANDS (test code = Increased A 3204502238) REACT LYMPHS (test Rare code = 4171226944) Lab Interpretation Abnormal (test code = 71458-5) [facility] WITH [id number] 17:16:49 Test Item Value Reference Range Interpretation [...] RDW-SD (test code = 44.7 fL 38.5-51.6 29959-0) RDW-CV (test code = 13.7 % 12.1-15.4 788-0) PLT (test code = See_Comment [Automated 777-3) message] The system which generated this result transmit artem reference range : 150 - 328 10*3/ ?L. The reference range was not u sed to interpret th is result as normal/abnormal . MPV (test code = 12.5 fL 9.8-13 88329-3) NRBC/100 WBC (test See_Comment [Automat ed code = 1529268081) message] The system which generated this result transmit artem reference range : 0.0 - 10.0 /100 WBCs. The reference range was not used to interpret this result as normal/abnormal . NRBC x10^3 (test code See_Comment [Auto mated = 5870832699) message] The system which generated this result transmit artem reference range : 10*3/?L. The reference range was not used to interpret this result as normal/abnormal . GRAN MAT (NEUT) % 76.6 % (test code = 770-8) IMM GRAN % (test code 0.70 % = 4289606344) LYMPH % (test code = 13.8 % 736-9) MONO % (test code = 8.5 % 5905-5) EOS % (test code = 0.1 % 713-8) BASO % (test code = 0.3 % 706-2) GRAN MAT x10^3(ANC) 17.13 10*3/uL 1.99-6.95 H (test code = 6642580181) IMM GRAN x10^3 (test 0.16 10*3/uL 0-0.06 H code = 4086828622) LYMPH x10^3 (test code 3.10 10*3/uL 1.09-3.23 = 731-0) MONO x10^3 (test code 1.91 10*3/uL 0.36-1.02 H = 742-7) EOS x10^3 (test code = 0.06-0.53 L 711-2) BASO x10^3 (test code 0.07 10*3/uL 0.01-0.09 = 704-7) BANDS (test code = Increased A 8389143489) REACT LYMPHS (test Rare code = 5776734143) Lab Interpretation Abnormal (test code = 28773-2) [facility] [id number] 16:42:04 Test Item Value Reference Interpretation Comments Range TROPONIN I (test 0.025 ng/mL See_Comment [Automated code = 8592205079) message] The system which generated this result [...] biotin. Lab Interpretation Normal (test code = 53791-2) [facility] [id number] 16:42:04 Test Item Value Reference Interpretation Comments Range TROPONIN I (test 0.025 ng/mL See_Comment [Automated code = 8990666174) message] The system which generated this result [...] biotin. Lab Interpretation Normal (test code = 40249-9) [facility] 16:31:19 Test Item Value Reference Range Interpretation Comments APTT Patient (test See_Comment [Automat ed code = 3173-2) message] The system which generated this result transmitted reference range : 23 - 38 Seconds . The reference range was not used to interpr et this result as normal/abnormal . ROSLYN (test code = ROSLYN) [facility] patient population mean normal value for aPTT is 30 seconds. Lab Interpretation Normal (test code = 06760-8) [facility] 16:31:19 Test Item Value Reference Range Interpretation Comments APTT Patient (test See_Comment [Automat ed code = 3173-2) message] The system which generated this result transmitted reference range : 23 - 38 Seconds . The reference range was not used to interpr et this result as normal/abnormal . ROSLYN (test code = ROSLYN) [facility] patient population mean normal value for aPTT is 30 seconds. Lab Interpretation Normal (test code = 08500-0) [facility]OLIC [facility] ([id number])2022-07-20 16:30:19 Test Item Value Reference Range Interpretation Comments NA (test code = 133 mmol/L 135-145 L 8128580904) K (test code = 5.3 mmol/L 3.5-5 H 1971738991) CL (test code = 98 mmol/L 98-108 1176216696) CO2 TOTAL (test code = 27 mmol/L 23-31 5932521948) AGAP (test code = 2-16 1109990556) BUN (test code = 13 mg/dL 7-23 4826055111) GLUCOSE (test code = 273 mg/dL 70-110 H 2665387671) CREATININE (test code = 0.62 mg/dL 0.6-1.25 0671323330) TOTAL BILI (test code = 2.1 mg/dL 0.1-1.1 H 1870148129) CALCIUM (test code = 8.6 mg/dL 8.6-10.6 0126867330) T PROTEIN (test code = 7.3 g/dL 6.3-8.2 4486374443) ALBUMIN (test code = 4.4 g/dL 3.5-5 0995868321) ALK PHOS (test code = 61 U/L 34-122 8880093324) ALTv (test code = 29 U/L 5-50 1742-6) AST(SGOT) (test code = 36 U/L 13-40 5621471996) eGFR (test code = mL/min/1.73m2 6317187744) ROSLYN (test code = ROSLYN) Association of [...] tests). Lab Interpretation Abnormal (test code = 33567-3) [facility]. METABOLIC PANEL ([id number])2022-07-20 16:30:19 Test Item Value Reference Range Interpretation Comments NA (test code = 133 mmol/L 135-145 L 5558431473) K (test code = 5.3 mmol/L 3.5-5 H 5695983491) CL (test code = 98 mmol/L 98-108 8364580152) CO2 TOTAL (test code = 27 mmol/L 23-31 1076967595) AGAP (test code = 2-16 4081343985) BUN (test code = 13 mg/dL 7-23 1599983978) GLUCOSE (test code = 273 mg/dL 70-110 H 9731047946) CREATININE (test code = 0.62 mg/dL 0.6-1.25 3382649641) TOTAL BILI (test code = 2.1 mg/dL 0.1-1.1 H 3587468761) CALCIUM (test code = 8.6 mg/dL 8.6-10.6 7460947321) T PROTEIN (test code = 7.3 g/dL 6.3-8.2 1684793450) ALBUMIN (test code = 4.4 g/dL 3.5-5 8337000734) ALK PHOS (test code = 61 U/L 34-122 1792388357) ALTv (test code = 29 U/L 5-50 2-6) AST(SGOT) (test code = 36 U/L 13-40 0250235889) eGFR (test code = mL/min/1.73m2 5645889796) ROSLYN (test code = ROSLYN) Association of [...] tests). Lab Interpretation Abnormal (test code = 57776-8) [facility] / [id number] 16:29:23 Test Item Value Reference Range Interpretation Comments PROTIME PATIENT (test See_Comment [Auto mated message] code = 5964-2) The system [employer] generated this result transmitted ref erence range: 12.0 - 1 4.7 Seconds. The re ference range was not u sed to interpret this result as normal/abnor mal. INR (test code = 6301-6) Nor mal INR <1.1; Warfarin Therap eutic range 2.0 to 3. 0 or 2.5 to 3.5, dep ending upon the indica tions. Lab Interpretation (test Normal code = 80088-2) [facility] / [id number] 16:29:23 Test Item Value Reference Range Interpretation Comments PROTIME PATIENT (test See_Comment [Auto mated message] code = 5964-2) The system [employer] generated this result transmitted ref erence range: 12.0 - 1 4.7 Seconds. The re ference range was not u sed to interpret this result as normal/abnor mal. INR (test code = 6301-6) Nor mal INR <1.1; Warfarin Therap eutic range 2.0 to 3. 0 or 2.5 to 3.5, dep ending upon the indica tions. Lab Interpretation (test Normal code = 12017-4) [facility]"
[2022-11-16 16:59] LABS: Absolute Lymphocytes (CBC) 2.4 K/uL (0.7-4.9); Hematocrit 47.7 % (39.6-49.0); Lymphocytes % 17.2 % (15.3-44.8); MCV 89.8 fL (80-100); MPV 9.7 fL (7.6-11.3); RBC Red Blood Cell Count 5.31 M/uL (4.33-5.43)
[2022-11-16 17:02] LABS: Protime INR 1.13
[2022-11-16 17:19] LABS: Albumin 3.5 g/dL (3.4-5.0); Bilirubin Direct 0.3 mg/dL (0-0.2); Bilirubin Total 1.1 mg/dL (0.2-1.0); Magnesium 2.2 mg/dL (1.6-2.4); Potassium 3.7 mmol/L (3.5-5.1); Protein, Total 7.3 g/dL (6.4-8.2); Troponin High Sensitivity 14.6 pg/mL (<58.9)
--- NOTE | 2022-11-16 17:25 | RAD REPORT ---
EXAM DESCRIPTION: CT - Head Brain Wo Cont - 11/16/2022 5:13 pm CLINICAL HISTORY: syncope COMPARISON: No comparisons TECHNIQUE: All CT scans are performed using dose optimization technique as appropriate and may inclu de automated exposure control or mA/KV adjustment according to patient size. FINDINGS: No intracranial hemorrhage, hydrocephalus or extra-axial fluid collection.No areas of brai n edema or evidence of midline shift. Mild chronic small vessel ischemic changes. The paranasal sinuses and mastoids are clear. The calvarium is intact. IMPRESSION: No acute intracranial abnormality.
--- NOTE | 2022-11-16 17:33 | RAD REPORT ---
EXAM DESCRIPTION: RAD - Chest Single View - 11/16/2022 5:25 pm CLINICAL HISTORY: syncope COMPARISON: Chest Single View dated 11/07/2022; Chest Single View dated 11/05/2022; Chest Single Vie w dated 10/26/2022; Chest Single View dated 10/23/2022 FINDINGS: Lines: None. Lungs: No evidence of edema or pneumonia. Pleural: No significant pleural effusions or pneumothorax. Cardiac: The heart size is within normal limits. Mediastinum: Within normal limits. Bones: No acute fractures. Other: None IMPRESSION: No acute cardiopulmonary disease.
--- NOTE | 2022-11-16 18:02 | RAD REPORT ---
EXAM DESCRIPTION: CT - Neck Angio - 11/16/2022 5:53 pm CLINICAL HISTORY: dizziness COMPARISON: 11/07/2022 TECHNIQUE: CT angiography of the neck vessels was performed with MIPs. All CT scans are performed using dose optimization technique as appropriate and may include automated exposure control or mA/KV adjustment according to patient size. FINDINGS: A left aortic arch is identified with normal three vessel configuration of the great vesse ls. No significant flow abnormality is seen of the common carotid bilaterally. No significant stenosis is identified involving the cervical segments of both internal carotid arteri es. Normal flow is seen within both vertebral arteries. Emphysema at the lung apices. Posterior disc osteophyte complex present at C4-5 and C5-6. There is li marnie at least moderate central spinal stenosis and severe left neural foraminal narrowing is noted. IMPRESSION: No significant flow abnormality of the neck vessels is identified.
--- NOTE | 2022-11-16 18:03 | RAD REPORT ---
EXAM DESCRIPTION: CT - Head angio - 11/16/2022 5:53 pm CLINICAL HISTORY: dizziness COMPARISON: Head Brain Wo Cont dated 11/16/2022 TECHNIQUE: CT angiography of the head was performed with MIPs. All CT scans are performed using dose optimization technique as appropriate and may include automated exposure control or mA/KV adjustment according to patient size. FINDINGS: Anterior circulation: No aneurysm or large vessel occlusion. No hemodynamically significant stenosis. No arteriovenous malf ormation identified. Calcified plaque involving both of the cavernous carotids. Posterior circulation: No aneurysm or large vessel occlusion. No hemodynamically significant stenosis. No arteriovenous malf ormation identified. IMPRESSION: No significant flow abnormality is detected.
--- NOTE | 2022-11-16 18:38 | EDPHYS ---
Physician Documentation [facility] Name: José Pat Age: 72 yrs Sex: Male : 1950 Arrival Date: 11/16/2022 Time: 16:12 Bed 17 Private MD: ED Physician Jayme Rao HPI: 11/16 16:21 This 72 yrs old Male presents to ER via EMS with complaints of Dizziness. jmm 16:21 The patient presents with dizziness. Onset: The symptoms/episode began/occurred jmm acutely, today. Modifying factors: The symptoms are alleviated by nothing, the symptoms are aggravated by nothing. This is a 72-year-old male with history of atrial fibrillation, CHF, COPD, diabetes mellitus the presents emerged part with complaints of a syncopal episode which occurred prior to arrival. Patient states he has been having progressively worsening dizziness since yesterday. Symptoms are not alleviated or worsen with change in position. Patient does have some shortness of breath. Denies chest pain. States the symptoms have happened previously without diagnosis.. Historical: - Allergies: 16:17 No Known Allergies; jl7 - Home Meds: 16:17 Eliquis Oral [Active]; tamsulosin 0.4 mg Oral cap [Active]; Insulin: Lantus Sub-Q jl7 [Active]; - PMHx: 16:17 Atrial fibrillation; CHF; Chronic Chest Pain; COPD; Diabetes - IDDM; Myocardial jl7 infarction; Noncompliance with medications; - Immunization history:: Client reports receiving the 2nd dose of the Covid vaccine. - Social history:: Smoking status: Patient reports the use of cigarette tobacco products, smokes one-half pack cigarettes per day. ROS: 16:21 Constitutional: Negative for fever, chills, and weight loss, Cardiovascular: Negative jmm for chest pain, palpitations, and edema. 16:21 Respiratory: Positive for shortness of breath. 16:21 Neuro: Positive for dizziness, syncope. 16:21 All other systems are negative. Exam: 16:21 Constitutional: This is a well developed, well nourished patient who is awake, alert, jmm and in no acute distress. Head/Face: atraumatic. Eyes: EOMI, no conjunctival erythema appreciated ENT: Moist Mucus Membranes Neck: Trachea midline, Supple Chest/axilla: Normal chest wall appearance and motion. Cardiovascular: Regular rate and rhythm. No edema appreciated Respiratory: Normal respirations, no respiratory distress appreciated Abdomen/GI: Non distended Back: Normal ROM Skin: General appearance color normal MS/ Extremity: Moves all extremities, no obvious deformities appreciated, no edema noted to the lower extremities Psych: Behavior is normal, Mood is normal, Patient is cooperative and pleasant 16:21 Neuro: Orientation: is normal, Mentation: is normal, Memory: is normal, Cerebellar function: normal finger to nose testing. 16:21 Psych: Behavior/mood is pleasant, cooperative. Vital Signs: 16:12 BP 101 / 78; Pulse 104; Resp 17; Temp 97.1(O); Pulse Ox 91% on R/A; Weight 107.95 kg; jl7 Height 5 ft. 7 in. (170.18 cm); Pain 0/10; 16:59 BP 107 / 70; Pulse 104; Resp 20; Pulse Ox 91% on R/A; mb9 18:18 BP 136 / 84; Pulse 98; Resp 20; Pulse Ox 92% on R/A; Pain 6/10; mb9 18:38 BP 108 / 72 Supine; Pulse 95; mb9 18:38 BP 121 / 87 Sitting; Pulse 98; mb9 18:38 BP 105 / 87; Pulse 113; mb9 20:11 BP 123 / 68; Pulse 79; Resp 18; Pulse Ox 96% on R/A; mb9 21:00 BP 104 / 65; Pulse 83; Resp 20; Pulse Ox 96% on 1 lpm NC; mb9 16:12 Body Mass Index 37.28 (107.95 kg, 170.18 cm) jl7 MDM: 16:21 Patient medically screened. [facility] 18:53 Data reviewed: vital signs, nurses notes. Counseling: I had a detailed discussion with miri the patient and/or guardian regarding: the historical points, exam findings, and any diagnostic results supporting the discharge/admit diagnosis, lab results, radiology results, the need for further work-up and treatment in the hospital. ED course: I discussed the patient with Fausto Cochran whom accepted the patient to Dr. Rinku jones. 11/16 16:26 Order name: Basic Metabolic Panel; Complete Time: 17:25 [facility] 11/16 16:26 Order name: CBC with Diff; Complete Time: 17:06 [facility] 11/16 16:26 Order name: LFT's; Complete Time: 17:25 [facility] 11/16 16:26 Order name: Magnesium; Complete Time: 17:25 [facility] 11/16 16:26 Order name: NT PRO-BNP; Complete Time: 17:25 [facility] 11/16 16:26 Order name: PT-INR; Complete Time: 17:06 [facility] 11/16 16:26 Order name: Troponin HS; Complete Time: 17:25 [facility] 11/16 16:26 Order name: XRAY Chest (1 view); Complete Time: 17:58 [facility] 11/16 16:26 Order name: EKG; Complete Time: 16:27 [facility] 11/16 16:26 Order name: CT Head Brain wo Cont; Complete Time: 17:30 [facility] 11/16 17:31 Order name: CT Head Angio; Complete Time: 18:06 [facility] 11/16 17:31 Order name: CT Neck Angio; Complete Time: 18:06 [facility] 11/16 18:27 Order name: SARS RAPID; Complete Time: 19:01 [facility] 11/16 18:53 Order name: DD; Complete Time: 19:04 [facility] 11/16 16:26 Order name: Cardiac monitoring; Complete Time: 16:34 [facility] 11/16 16:26 Order name: EKG - Nurse/Tech; Complete Time: 17:39 [facility] 11/16 16:26 Order name: IV Saline Lock; Complete Time: 16:55 [facility] 11/16 16:26 Order name: Labs collected and sent; Complete Time: 16:55 [facility] 11/16 16:26 Order name: O2 Per Protocol; Complete Time: 16:34 [facility] 11/16 16:26 Order name: O2 Sat Monitoring; Complete Time: 16:34 [facility] 11/16 18:12 Order name: Orthostatic Blood Pressure; Complete Time: 18:38 [facility] Administered Medications: No medications were administered Disposition: 11/17 15:08 Co-signature as Attending Physician, Jayme Rao MD. rn Disposition Summary: 11/16/22 18:38 Hospitalization Ordered Hospitalization Status: Observation [facility] Provider: Rl Dobbs Location: Telemetry/MedSurg (observation) [facility] Condition: Stable [facility] Problem: new [facility] Symptoms: are unchanged [facility] Bed/Room Type: Standard [facility] Room Assignment: 402(11/16/22 20:10) isiah Diagnosis - Syncope [facility] Forms: - Medication Reconciliation Form [facility] - SBAR form [facility] Signatures: Dispatcher [employer] Juan José Villarreal PA PA jmm Nieto, Roman, MD MD rn Fausto Cochran, TRUCK AND TRANSPORT MECHANIC-C [employer] AND [employer]SPORT MECHANIC-Cla1 Marielena Ervin RN RN cg Leal, Jahala, RN RN jl7 Corrections: (The following items were deleted from the chart) 11/16 20:10 18:38 miri cg
--- NOTE | 2022-11-16 18:38 | ER ---
Nurse's Notes [facility] Name: José Pat Age: 72 yrs Sex: Male : 1950 Arrival Date: 11/16/2022 Time: 16:12 Bed 17 Private MD: Diagnosis: Syncope Presentation: 11/16 16:12 Chief complaint: EMS states: Pt reports dizziness and syncope, denies injuries, wants jl7 to be checked out why he keeps getting dizzy. Coronavirus screen: At this time, the client does not indicate any symptoms associated with coronavirus-19. Ebola Screen: No symptoms or risks identified at this time. Initial Sepsis Screen: Does the patient meet any 2 criteria? No. Patient's initial sepsis screen is negative. Does the patient have a suspected source of infection? No. Patient's initial sepsis screen is negative. Risk Assessment: Do you want to hurt yourself or someone else? Patient reports no desire to harm self or others. Onset of symptoms is unknown. 16:12 Method Of Arrival: Ambulatory [facility] 16:12 Method Of Arrival: EMS: [facility] 7 16:12 Acuity: KIT 3 jl7 Triage Assessment: 16:17 General: Appears in no apparent distress. uncomfortable, Behavior is calm, cooperative, jl7 appropriate for age. Pain: Denies pain. Historical: - Allergies: 16:17 No Known Allergies; jl7 - Home Meds: 16:17 Eliquis Oral [Active]; tamsulosin 0.4 mg Oral cap [Active]; Insulin: Lantus Sub-Q jl7 [Active]; - PMHx: 16:17 Atrial fibrillation; CHF; Chronic Chest Pain; COPD; Diabetes - IDDM; Myocardial jl7 infarction; Noncompliance with medications; - Immunization history:: Client reports receiving the 2nd dose of the Covid vaccine. - Social history:: Smoking status: Patient reports the use of cigarette tobacco products, smokes one-half pack cigarettes per day. Screenin:00 [facility] ED Fall Risk Assessment (Adult) History of falling in the last 3 months, mb9 including since admission Yes- physiologic fall (2 pts) Confusion or Disorientation No (0 pts) Intoxicated or Sedated No (0 pts) Impaired Gait No (0 pts) Mobility Assist Device Used No (0 pt) Altered Elimination No (0 pt) Score/Fall Risk Level 0 - 2 = Low Risk Oriented to surroundings, Maintained a safe environment, Educated pt \T\ family on fall prevention, incl call for assistance when getting out of bed. Abuse screen: Denies threats or abuse. Nutritional screening: No deficits noted. Tuberculosis screening: No symptoms or risk factors identified. Assessment: 16:19 General: Appears comfortable, Behavior is cooperative, appropriate for age, crying. mb9 Pain: Complains of pain in head and left shoulder Pain does not radiate. Pain currently is 6 out of 10 on a pain scale. Quality of pain is described as throbbing. Neuro: Level of Consciousness is awake, alert, obeys commands, Oriented to person, place, time, situation, Appropriate for age Pupils are Pupil Size: 2mm non-reactive, Reports dizziness, headache Denies blurred vision. Cardiovascular: Heart tones S1 S2 present Rhythm is atrial fibrillation. Respiratory: Airway is patent Respiratory effort is even, unlabored, Respiratory pattern is regular, symmetrical, Breath sounds are clear bilaterally. GI: Abdomen is round non-distended, Bowel sounds present X 4 quads. Abd is soft and non tender X 4 quads. : No signs and/or symptoms were reported regarding the genitourinary system. EENT: No signs and/or symptoms were reported regarding the EENT system. Derm: Skin is pink, warm \T\ dry. Musculoskeletal: Capillary refill < 3 seconds, Range of motion: intact in all extremities. 17:08 Reassessment: pt taken to CT via stretcher. mb9 17:28 Reassessment: No changes from previously documented assessment. Neuro: Level of mb9 Consciousness is awake, alert, obeys commands, Oriented to person, place, time, situation, Appropriate for age. Cardiovascular: Rhythm is atrial fibrillation. Respiratory: Airway is patent Respiratory effort is even, unlabored, Respiratory pattern is regular, symmetrical. Derm: Skin is pink, warm \T\ dry. 18:45 Reassessment: No changes from previously documented assessment. Neuro: Level of mb9 Consciousness is awake, alert, obeys commands, Oriented to person, place, time, situation, Appropriate for age. 18:45 Cardiovascular: Rhythm is atrial fibrillation. Respiratory: Airway is patent mb9 Respiratory effort is even, unlabored. Derm: Skin is pink, warm \T\ dry. 19:45 General: Appears in no apparent distress. comfortable, Behavior is calm, cooperative, mb9 appropriate for age. Neuro: Level of Consciousness is awake, alert, obeys commands. Cardiovascular: Rhythm is atrial fibrillation. Respiratory: Airway is patent Respiratory effort is even, unlabored, Respiratory pattern is regular, symmetrical. Derm: Skin is pink, warm \T\ dry. 21:01 Reassessment: No changes from previously documented assessment. Neuro: Level of mb9 Consciousness is awake, alert, obeys commands, Oriented to person, place, time, situation, Appropriate for age. Cardiovascular: Rhythm is atrial fibrillation. Respiratory: Airway is patent. Derm: Skin is pink, warm \T\ dry. Vital Signs: 16:12 BP 101 / 78; Pulse 104; Resp 17; Temp 97.1(O); Pulse Ox 91% on R/A; Weight 107.95 kg; jl7 Height 5 ft. 7 in. (170.18 cm); Pain 0/10; 16:59 BP 107 / 70; Pulse 104; Resp 20; Pulse Ox 91% on R/A; mb9 18:18 BP 136 / 84; Pulse 98; Resp 20; Pulse Ox 92% on R/A; Pain 6/10; mb9 18:38 BP 108 / 72 Supine; Pulse 95; mb9 18:38 BP 121 / 87 Sitting; Pulse 98; mb9 18:38 BP 105 / 87; Pulse 113; mb9 20:11 BP 123 / 68; Pulse 79; Resp 18; Pulse Ox 96% on R/A; mb9 21:00 BP 104 / 65; Pulse 83; Resp 20; Pulse Ox 96% on 1 lpm NC; mb9 16:12 Body Mass Index 37.28 (107.95 kg, 170.18 cm) 7 ED Course: 16:12 Patient arrived in ED. jl7 16:16 Lizz Olsen, MADELEINE is Primary Nurse. mb9 16:16 Triage completed. 7 16:17 Juan José Raines PA is PHCP. [facility] 16:17 Jayme Rao MD is Attending Physician. m 16:17 Arm band placed on right wrist. jl7 16:17 Placed in gown. Bed in low position. Call light in reach. Side rails up X 1. Client mb9 placed on continuous cardiac and pulse oximetry monitoring. NIBP monitoring applied. director of accreditation on. Door closed. Noise minimized. Warm blanket given. 16:55 Basic Metabolic Panel Sent. mb9 16:55 CBC with Diff Sent. mb9 16:55 LFT's Sent. mb9 16:55 Magnesium Sent. mb9 16:55 Troponin HS Sent. mb9 16:55 PT-INR Sent. mb9 16:55 NT PRO-BNP Sent. mb9 16:55 No provider procedures requiring assistance completed. Inserted saline lock: 20 gauge mb9 in left antecubital area, using aseptic technique. Blood collected. 17:15 CT Head Brain wo Cont In Process Unspecified. EDMS 17:20 EKG done, by ED staff, reviewed by Juan José XIONG. mb9 17:27 XRAY Chest (1 view) In Process Unspecified. EDMS 17:55 CT Head Angio In Process Unspecified. EDMS 17:55 CT Neck Angio In Process Unspecified. EDMS 18:38 Rl Dobbs MD is Hospitalizing Provider. jmm 18:38 SARS RAPID Sent. mb9 21:00 Patient admitted, IV remains in place. mb9 Administered Medications: No medications were administered Medication: 20:12 VIS not applicable for this client. mb9 Outcome: 18:38 Decision to Hospitalize by Provider. armaan 21:00 Admitted to Tele accompanied by tech, via stretcher, room 402, with oxygen, with chart, mb9 Report called to MADELEINE Baez 21:00 Condition: stable 21:00 Instructed on the need for admit. 21:01 Patient left the ED. mb9 Signatures: Dispatcher [employer] EDJuan José Abbasi PA PA jmm Leal, Jahala, RN RN jl7 Lizz Olsen RN RN mb9 Corrections: (The following items were deleted from the chart) 16:56 16:19 Respiratory: Airway is patent Respiratory effort is even, unlabored, Respiratory mb9 pattern is regular, symmetrical, Breath sounds are clear bilaterally. 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 Bruit and thrill noted mb9 mb9 17:39 17:20 EKG done, mb9 mb9
[2022-11-16 19:00] LABS: SARS-CoV-2 Antigen Rapid Res Negative (Negative)
--- NOTE | 2022-11-16 19:23 | P.HP ---
Certification for Inpatient Patient admitted to: Observation With expected LOS: <2 Midnights Patient will require the following post-hospital care: None Practitioner: I am a practitioner with admitting privileges, knowledge of patient current condition, hospital course, and medical plan of care. Services: Services provided to patient in accordance with Admission requirements found in Title 42 Section 412.3 of the Code of Federal Regulations <Fausto Cochran - Last Filed: 11/16/22 19:19> Patient History Date of Service: 11/16/22 Reason for admission: Syncope History of Present Illness: 72-year-old male with history of chronic diastolic congestive heart failure, atrial fibrillation on chronic anticoagulation therapy, diabetes type 2insulin- dependent with medical noncompliance who reports he is only taking aspirin at home daily presents to the emergency department for syncope. He reports that he was outside on his patio walking towards his house when he began to feel short of breath, lightheaded and then lost consciousness, the next thing he knew he was waking up on the ground. He reports he believes he was on the ground for a total of 30 minutes but cannot be sure. He denied any chest pain, palpitations or headache. He was evaluated here in the emergency department his labs were significant for mild leukocytosis white blood cell count 13.8 glucose [address] head without contrast negative for acute findings CT head and neck angio negative for large vessel occlusion. Chest x-ray was negative for any acute cardiopulmonary process. EKG showed sinus rhythm with first-degree AV block, right bundle branch block. Will admit for further evaluation and management of syncope. - Past Medical/Surgical History Diabetic: Yes -: DIVERTICULITIS -: COPD-on home O2 -: A. fib-noncompliant with Eliquis -: Diastolic CHF -: Diabetes mellitus type 2 -: Hypertension -: Hyperlipidemia -: Colostomy and reversal Psychosocial/ Personal History: Patient lives at home with his - Family History Father Notes: mesothelioma Mother -: Heart disease, Hypertension - Social History Smoking Status: Current every day smoker Counseled patient to stop smoking for: less than 10 minutes Alcohol use: No CD- Drugs: No Caffeine use: Yes Place of Residence: Home <Fausto Cochran - Last Filed: 11/16/22 19:19> Date of Service: 11/17/22 <Rl Dobbs - Last Filed: 11/17/22 11:00> Allergies No Known Allergies Allergy (Verified 11/08/22 01:58) Home Medications: Aspirin [Aspirin EC 81 MG] 81 mg PO DAILY #30 tablet. 07/04/22 Apixaban [Eliquis] 5 mg PO BID #60 tab 10/09/22 Atorvastatin Calcium [Lipitor] 40 mg PO BEDTIME #30 tab 10/09/22 Digoxin 125 mcg PO DAILY #30 tab 10/09/22 Fluticasone/Umeclidin/Vilanter [Trelegy Ellipta 200-62.5-25] 1 each IH DAILY 30 Days #1 kit 10/24/22 Furosemide [Lasix*] 40 mg PO DAILY #10 tab 10/24/22 Albuterol Neb [Proventil 0.083% Neb Soln] 2.5 mg NEB [id number] PRN #120 amp 11/06/22 Ipratropium Neb [Atrovent*] 0.5 mg IH Q6H #120 amp 11/06/22 predniSONE [Prednisone*] 20 mg PO DAILY #5 tab 11/06/22 Cefpodoxime Proxetil 200 mg PO BID #24 tab 11/09/22 Fluconazole [Diflucan] 200 mg PO DAILY #14 tab 11/09/22 Nebulizer 1 each QID #1 kit 11/09/22 Review of Systems 10-point ROS is otherwise unremarkable Respiratory: Shortness of Breath Cardiovascular: Light Headedness <Fausto Cochran - Last Filed: 11/16/22 19:19> Physical Examination - Physical Exam General: Alert, In no apparent distress, Oriented x3 HEENT: Atraumatic, PERRLA, Mucous membr. moist/pink, EOMI, Sclerae nonicteric Neck: Supple, 2+ carotid pulse no bruit, No LAD, Without JVD or thyroid abnormality Respiratory: Clear to auscultation bilaterally, Normal air movement Cardiovascular: No edema, Regular rate/rhythm, Normal S1 S2 Capillary refill: <2 Seconds Gastrointestinal: Normal bowel sounds, No tenderness Musculoskeletal: No tenderness Integumentary: No rashes Neurological: Normal speech, Normal strength at 5/5 x4 extr, Normal tone, Normal affect - Studies Laboratory Data (last 24 hrs) 11/16/22 16:50: PT 12.4, INR 1.13 11/16/22 16:50: WBC 13.80 H, Hgb 16.1, Hct 47.7, Plt Count 208 11/16/22 16:50: Sodium 139, Potassium 3.7, BUN 11, Creatinine 0.81, Glucose 149 H, Magnesium 2.2, Total Bilirubin 1.1 H, AST 11 L, ALT 20, Alkaline Phosphatase 61 <Fausto Cochran - Last Filed: 11/16/22 19:19> - Studies Laboratory Data (last 24 hrs) 11/16/22 16:50: PT 12.4, INR 1.13 11/16/22 16:50: WBC 13.80 H, Hgb 16.1, Hct 47.7, Plt Count 208 11/16/22 16:50: Sodium 139, Potassium 3.7, BUN 11, Creatinine 0.81, Glucose 149 H, Magnesium 2.2, Total Bilirubin 1.1 H, AST 11 L, ALT 20, Alkaline Phosphatase 61 <Rl Dobbs - Last Filed: 11/17/22 11:00> Assessment and Plan - Plan Assessment: Syncope COPD on chronic O24.5 L Atrial fibrillation on chronic anticoagulation therapy-noncompliant Diabetes mellitus type [id number] Hypertension Hyperlipidemia Plan: Syncope: Trend troponins, cardiology consult in place, echocardiogram ordered. D-dimer negative, CT head negative. Will obtain orthostatic vital signs and have PT consult placed. COPD on chronic O24.5 L: Continue home oxygen, no exacerbation currently. As needed breathing treatments. Atrial fibrillation on chronic anticoagulation therapy-noncompliant: Restart Eliquis, monitor on telemetry. Diabetes mellitus type [id number]: Patient reports he is not take any medications currently for his diabetes blood sugar 149, ACH S Accu-Chek, mild sliding scale insulin. Hypertension: Continue home meds Hyperlipidemia: Continue home meds DVT PPX: Continue eliquis Code status: Full Discharge Plan: Home Plan to discharge in: 24 Hours - Advance Directives Does patient have a Living Will: No Does patient have a Durable POA for Healthcare: No - Code Status/Comfort Care Code Status Assessed: Yes (Full code) Critical Care: No Time Spent Managing Pts Care (In Minutes): 55 <Fausto Cochran - Last Filed: 11/16/22 19:19> Physician Review: Patient Assessed, Agree with Above Assessment and Plan <Rl Dobbs - Last Filed: 11/17/22 11:00>
[2022-11-16] MEDS ORDERED: NA CHLORIDE 0.9% 500 ML IV ONE (21:36)
[2022-11-16] MEDS: INSULIN -REGULAR HUMAN 50 UNIT/0.5 ML ML SQ SCH (21:44)
[2022-11-16] MEDS ORDERED: ALBUTEROL 2.5 MG/3 ML NEB SOL NEB PRN (21:44)
[2022-11-16] MEDS ORDERED: ATORVASTATIN 40 MG TAB PO SCH (21:44)
[2022-11-16] MEDS ORDERED: ONDANSETRON 4 MG/2 ML VIAL IV PRN (21:44)
[2022-11-16 22:05] VITALS: BMI 31.8
[2022-11-16 22:28] VITALS: O2SAT 92
[2022-11-16] MEDS: APIXABAN 5 MG TABLET PO SCH (23:11)
[2022-11-17 04:37] LABS: Absolute Lymphocytes (CBC) 2.9 K/uL (0.7-4.9); Hematocrit 42.3 % (39.6-49.0); Lymphocytes % 26.3 % (15.3-44.8); MPV 9.7 fL (7.6-11.3)
[2022-11-17 05:03] LABS: Magnesium 2.1 mg/dL (1.6-2.4); Potassium 3.3 mmol/L (3.5-5.1); Thyroid Stimulating Hormone 1.51 uIU/mL (0.358-3.740); Troponin High Sensitivity 18.8 pg/mL (<58.9)
[2022-11-17] MEDS ORDERED: POTASSIUM 25 MEQ EFFERV TAB PO ONE (05:13)
[2022-11-17] MEDS: INSULIN -REGULAR HUMAN 50 UNIT/0.5 ML ML SQ SCH (07:30)
--- NOTE | 2022-11-17 08:19 | P.DS ---
Admission Date: 11/16/22 Discharge Date: 11/17/22 Disposition: ROUTINE DISCHARGE Discharge Condition: GOOD Reason for Admission: Syncope Hospital Course: DIAGNOSES: # Syncope secondary to Orthostatic Hypotension # Chronic Respiratory Failure secondary to Chronic Obstructive Pulmonary Disease on home oxygen # Pulmonary Arterial Hypertension # Paroxysmal Atrial Fibrillation/Flutter # Chronic Compensated Systolic Congestive Heart Failure with Reduced Ejection Fraction (LVEF 30-35 %) # Type II Diabetes Mellitus # Hypertension # Hyperlipidemia # Tobacco Use Disorder HOSPITAL COURSE: Mr. José Pat is a pleasant 72-year-old male with a past medical history significant for chronic respiratory failure secondary to chronic obstructive pulmonary disease, pulmonary arterial hypertension, paroxysmal atrial fibrillation/flutter, chronic diastolic congestive heart failure, type 2 diabetes mellitus, hypertension, and hyperlipidemia who was admitted to the [facility] on 11/16/2022 for syncope. He was admitted to the Medicine service. His EKG was without STEMI criteria. His troponin trend was flat. His CT head revealed, "no acute intracranial abnorm ality." His CT head angiogram revealed, "no significant flow abnormality is detected." His CT neck angiogram, "no significant flow abnormality of the neck vessels is identified." He was found to have orthostatic hypotension. He was treated with a 500 mL bolus of Normal Saline with resolution of his orthostatic hypotension. Orthostatic vital signs taken during rounds this morning were: Lying HR 93, BP 122/82, Sitting HR 94, BP 127/78, and Standing HR 97, BP 112/78. I ambulated with him around the nursing station, without any signs of shortness of breath or dizziness. He stated that he felt well and would like to be discharged home. I advised that he maintain adequate hydration to avoid any further episodes of orthostasis. On 11/17/2022, he was seen on morning rounds and deemed medically stable for discharge. He was discharged with instructions to schedule follow-up appointments with his PCP and with Cardiology (Dr. Coulter). He was given the opportunity to ask questions and reported no further questions. Furthermore, all questions were answered to the best of my ability. A copy of this discharge summary will be sent to the above providers to facilitate continuity of care. Today, I personally spent 25 minutes on his case, of which greater than 50% of the time was spent in patient education, counseling, and coordination of care as described above. Vital Signs/Physical Exam: Temp Pulse Resp BP Pulse Ox 97.3 F 83 18 122/75 93 11/17/22 04:00 11/17/22 04:00 11/17/22 04:00 11/17/22 04:00 11/17/22 04:00 General: Alert, In no apparent distress, Oriented x3 HEENT: Atraumatic, PERRLA, Mucous membr. moist/pink, EOMI, Sclerae nonicteric Neck: JVD not distended Respiratory: Clear to auscultation bilaterally, Normal air movement Cardiovascular: Regular rate/rhythm, Normal S1 S2, No gallops, No rubs, No mur murs, Edema (trace BLE) Gastrointestinal: Normal bowel sounds, Soft and benign, Non-distended, No tenderness, No rebound, No guarding Musculoskeletal: No clubbing Integumentary: No rashes Neurological: Normal gait, Normal speech, Normal strength at 5/5 x4 extr, Cranial nerves 3-12 intact, Normal affect Laboratory Data at Discharge: WBC 10.90 K/uL (4.3-10.9) 11/17/22 04:20 Hgb 14.4 g/dL (13.6-17.9) D 11/17/22 04:20 Hct 42.3 % (39.6-49.0) 11/17/22 04:20 Plt Count 172 K/uL (152-406) 11/17/22 04:20 PT 12.4 SECONDS (9.5-12.5) 11/16/22 16:50 INR 1.13 11/16/22 16:50 Sodium 138 mmol/L (136-145) 11/17/22 04:20 Potassium Cancelled 11/17/22 Unknown BUN 9 mg/dL (7-18) 11/17/22 04:20 Creatinine 0.73 mg/dL (0.70-1.30) 11/17/22 04:20 Glucose 198 mg/dL (74-106) H 11/17/22 04:20 Magnesium 2.1 mg/dL (1.6-2.4) 11/17/22 04:20 Total Bilirubin 1.1 mg/dL (0.2-1.0) H 11/16/22 16:50 AST 11 U/L (15-37) L 11/16/22 16:50 ALT 20 U/L (16-61) 11/16/22 16:50 Alkaline Phosphatase 61 U/L (45-117) 11/16/22 16:50 Triglycerides 157 mg/dL (<150) H 11/17/22 04:20 Cholesterol 117 mg/dL (<200) 11/17/22 04:20 HDL Cholesterol 36 mg/dL (40-60) L 11/17/22 04:20 Cholesterol/HDL Ratio 3.25 11/17/22 04:20 Home Medications: Aspirin [Aspirin EC 81 MG] 81 mg PO DAILY #30 tablet.dr 07/04/22 Apixaban [Eliquis] 5 mg PO BID #60 tab 10/09/22 Atorvastatin Calcium [Lipitor] 40 mg PO BEDTIME #30 tab 10/09/22 Digoxin 125 mcg PO DAILY #30 tab 10/09/22 Fluticasone/Umeclidin/Vilanter [Trelegy Ellipta 200-62.5-25] 1 each IH DAILY 30 Days #1 kit 10/24/22 Furosemide [Lasix*] 40 mg PO DAILY #10 tab 10/24/22 Albuterol Neb [Proventil 0.083% Neb Soln] 2.5 mg NEB [id number] PRN #120 amp 11/06/22 Ipratropium Neb [Atrovent*] 0.5 mg IH Q6H #120 amp 11/06/22 predniSONE [Prednisone*] 20 mg PO DAILY #5 tab 11/06/22 Cefpodoxime Proxetil 200 mg PO BID #24 tab 11/09/22 Fluconazole [Diflucan] 200 mg PO DAILY #14 tab 11/09/22 Nebulizer 1 each QID #1 kit 11/09/22 Physician Discharge Instructions: 1. Please call and schedule a follow-up appointment with your PCP in 3-5 days 2. Please call and schedule a follow-up appointment with your Bit Sharpener (Dr. Coulter) in 5-7 days Diet: AHA Activity: Ad clive Followup: Nick Coulter MD [ACTIVE - CAN ADMIT] - 1 Week (Call for appointment.) Time spent managing pt's care (in minutes): 25
[2022-11-17] MEDS: APIXABAN 5 MG TABLET PO SCH (08:27)
[2022-11-17 08:42] VITALS: BP 114/75; TEMP 97.9
--- NOTE | 2022-11-17 16:48 | EKG ---
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: MB MEASUREMENT RESULTS: Intervals: Rate: 96 [place]: 212 QRSD: 146 QT: 430 QTc: 543 [place]: P: 76 [place]: 212 QRS: -87 T: 60 INTERPRETIVE STATEMENTS: Sinus rhythm with 1st degree AV block with premature atrial complexes Left axis deviation Right bundle branch block Inferior infarct, age undetermined Anterior infarct, age undetermined Abnormal ECG Compared to ECG 11/07/2022 19:45:44 Atrial premature complex(es) now present First degree AV block now present Sinus tachycardia no longer present Myocardial infarct finding still present Electronically Signed On 11-17-22 16:47:34 ASSISTANT PRINCIPAL by Gianluca Garcia
== END 2022-11-17 09:35 | disposition home or self-care (01) ==
LOC: ER 16:07 → ERHOLD 19:04 → 4TH 20:19
PROVIDERS: ADMIT Internal Medicine; ATTEND Internal Medicine
DX: I95.1 Orthostatic hypotension (principal); J96.10 Chronic respiratory failure, unspecified whether with hypoxia or hypercapnia; J44.9 Chronic obstructive pulmonary disease, unspecified; I27.21 Secondary pulmonary arterial hypertension; I50.32 Chronic diastolic (congestive) heart failure; I48.11 Longstanding persistent atrial fibrillation; I48.0 Paroxysmal atrial fibrillation; E11.9 Type 2 diabetes mellitus without complications; I10 Essential (primary) hypertension; E78.5 Hyperlipidemia, unspecified; Z99.81 Dependence on supplemental oxygen; Z91.14 Patient's other noncompliance with medication regimen; Z79.01 Long term (current) use of anticoagulants; Z72.0 Tobacco use; Z20.822 Contact with and (suspected) exposure to COVID-19
CPT/HCPCS: 93005; 85025 ×2; 80048 ×2; 36415; 83735 ×2; 85610; 80061; 82947 ×2; 85379; 80076; 84443; 84484 ×3; 84439; 83880; 70450; 70496; 70498; 71045; 99285; 87811; Q9967; J7040; G0378 ×3

== ENCOUNTER 2022-11-30 07:57 | Emergency (ER) | payer OTHER ==
--- OUTSIDE RECORDS SUMMARY | 2022-11-30 08:06 | XMS REPORT | Continuity of Care Document ---
:1950 Author Organization [facility] t Address [address] [place] [address] Care Team Providers Name Role Phone Pcp, Patient Does Not Have A Primary Care Physician [phone] Attending Clinician Unavailable Meghana Ayala Attending Clinician Unavailable Jose Kim Rahil Attending Clinician Unavailable Cristian SALVADOR, [place] Attending Clinician Unavailable Charlene Butt DO Attending Clinician Atul Stephens MD Attending Clinician Berna Alcantar MD Attending Clinician [phone] BERNA ALCANTAR Attending Clinician Unavailable Orlando Cannon MD Attending Clinician [id number] Admitting Clinician Unavailable Jose Kim Rahil Admitting Clinician Unavailable Berna Alcantar MD Admitting Clinician [phone] BERNA ALCANTAR Admitting Clinician Unavailable Payers Payer Name Policy Type Policy Number Effective Date Expiration Date S cindy [facility] [id number] Problems Condition Condition Condition Status Onset Resolution Last Treating Co mments Source Name Details Category Date Date Treatment Clinician Date Acute on Acute on Disease Active Unive rs chronic chronic 9-11 ity of combined combined 00:00: [place] systolic systolic 00 Medica l and and [...] Added automatic ally from request for surgery [id number] CHF CHF Problem Active Common (congestiv (congestiv Sp anabela e heart e heart - CHI failure) failure) [facility] Hypertensi Hypertensi Problem Active C ommon on on Spirit - CH[facility] Diabetes Diabetes Problem Active Commo n type 2, type 2, Spirit controlled controlled - [facility] COPD COPD Problem Active Common (chronic (chronic Spirit obstructiv obstructiv - CHI e e St pulmonary pulmonary [place] s disease) disease) [facility] Nicotine Nicotine Problem Active Commo n dependence dependence Sp anabela - [facility] Seasonal Seasonal Problem Active Commo n allergic allergic Spirit rhinitis rhinitis - [facility] Adjustment Adjustment Problem Active C ommon disorder disorder Spirit with with - [facility]I depressed depressed [facility] Chronic Chronic Problem Active Common fatigue fatigue Spirit - [facility] Type 2 Type 2 Problem [...] Active Univers ALLERGIE Class ity of S [facility] Social History Social Habit Start Date Stop Date Quantity Comments Source History of Cigarette Smoker Universi ty of tobacco use [place] [facility] History SDOH Food 2022-07-29 2022-07-29 1 Univers ity of Worry 00:00:00 00:00:00 [place] [facility] History SDOH Food 2022-07-29 2022-07-29 1 Univers ity of Scarcity 00:00:00 00:00:00 [place] [facility] History SDOH 2022-07-29 2022-07-29 2 University o f Transport Med 00:00:00 00:00:00 [place] Medic al Branch History [facility] 2022-07-29 2022-07-29 2 University o f Transport Non-Med 00:00:00 00:00:00 [facility] edical Branch Tobacco use and 2022-07-21 2022-07-21 Smokeless tobacco Un iversity of exposure 00:00:00 00:00:00 non-user [facility] Exposure to 2022-07-10 2022-07-20 Not sure University of SARS-CoV-2 00:00:00 10:56:00 [facility] (event) Branch Sex Ass[birth year] At [birth year] Universit y of 00:00:00 00:00:00 [facility] Smoking Status Start Date Stop Date Source Smokes tobacco daily 2022-07-21 00:00:00 Univers ity of [facility] Medications Ordered Filled Start Stop Current Ordering [...] Until Discontinu ed, Routine furosemide 2021-0 Yes [id number] 40mg Take 1 Univers 40 mg 9-18 tablet by ity of tablet 00:00: mouth in [place] 00 the Medical morning Branch and 1 tablet in the evening. metoprolol 2021-0 Yes [id number] 50mg Take 1 Univers succinate 9-18 tablet by ity o f XL 50 mg 24 00:00: mouth in [place] hr tablet 00 the Medical morning. Branch spironolact 2021-0 Yes [id number] 25mg Take 1 Univers one 25 mg 9-18 tablet by ity o f tablet 00:00: mouth in [place] 00 the Medical morning. Branch furosemide 2021-0 Yes [id number] 40mg Take 1 Univers 40 mg 9-18 tablet by ity of tablet 00:00: mouth in [place] 00 the Medical morning Branch and 1 tablet in the evening. metoprolol 2021-0 Yes [id number] 50mg Take 1 Univers succinate 9-18 tablet by ity o f XL 50 mg 24 00:00: [place] hr tablet 00 the Medical morning. Branch spironolact 2021-0 Yes [id number] 25mg Take 1 Univers one 25 mg 9-18 tablet by ity o f tablet 00:00: mouth in [place] 00 the Medical morning. Branch furosemide 2021-0 Yes [id number] 40mg Take 1 Univers 40 mg 9-18 tablet by ity of tablet 00:00: mouth in [place] 00 the Medical morning Branch and 1 tablet in the evening. metoprolol 2021-0 Yes [id number] 50mg Take 1 Univers succinate 9-18 tablet by ity o f XL 50 mg 24 00:00: [place] in [place] hr tablet 00 the Medical morning. Branch spironolact 2021-0 Yes [id number] 25mg Take 1 Univers one 25 mg [...] [place] 23 the Medical morning. Branch montelukast 0 [...] mouth 2 ity of ORAL) 21:46: (two) [place] [id number] times Medical daily. Branch insulin Yes 15U inject 15 Unive rs glargine,hu 9-17 Units ity of m.rec.anlog 21:46: under the [place] (LANTUS 23 skin. Medical U-100 Branch INSULIN SC) losartan 25 0 Yes 1{tbl} Take 1 Un rita mg tablet 9-17 tablet by ity o f 21:46: mouth in [place] 23 the Medical morning. Branch montelukast 0 Yes 1{tbl} Take 1 Un rita 10 mg 9-17 tablet by ity of tablet 21:46: mouth in [place] 23 the Medical morning. Branch albuterol 0 [...] [place] 23 times Medical daily. Branch insulin 2022-0 Yes 15U inject 15 Unive rs glargine,hu 9-17 Units ity of m.rec.anlog 21:46: under the [place] (LANTUS 23 skin. Medical U-100 Branch INSULIN SC) losartan 25 Yes 1{tbl} Take 1 Un riat mg tablet 9-17 tablet by ity o f 21:46: mouth in [place] 23 the Medical morning. Branch montelukast Yes 1{tbl} Take 1 Un rita 10 mg 9-17 tablet by ity of tablet 21:46: mouth in [place] 23 the Medical morning. Branch albuterol Yes 2{puff} Take 2 Uni vers sulfate 9-17 Puffs by ity of (PROAIR 21:46: mouth as [place] RESPICLICK) 23 needed for Me dical 90 [...] Branch 07/26/22 at 2030, Routine atorvastati Yes [id number] 40mg Take 1 Univers n 40 mg 9-17 tablet by ity of tablet 00:00: mouth at [place] 00 bedtime. Medical Branch apixaban Yes 1358 5mg Take 1 Univers (ELIQUIS) 5 9-17 tablet by ity of mg tablet 00:00: [place] 00 the Medical morning Branch and 1 tablet in the evening. Indication s: atrial fibrillati on atorvastati Yes [id number] 40mg Take 1 Univers n 40 mg 9-17 tablet by ity of tablet 00:00: mouth at [place] 00 bedtime. Medical Branch apixaban Yes 1358 5mg Take 1 Univers (ELIQUIS) 5 9-17 tablet by ity of mg tablet 00:00: [place] 00 the Medical morning Branch and 1 tablet in the evening. Indication s: atrial fibrillati on atorvastati Yes [id number] 40mg Take 1 Univers n 40 mg 9-17 tablet by ity of tablet 00:00: mouth at [place] 00 bedtime. [facility] Branch apixaban Yes 1358 5mg Take [...] ed insulin 2021- No 15U 15 Units, [facility] ers glargine 07-26 Subcutaneo ity [...] last Branch Fsbg modificati Testing on) on [facility] 07/25/22 at 2000, Until Discontinu ed, Routine Sliding No Subcutaneo Uni vers Scale 07-26 us, Q6H, ity of Insulin - 01:00: 04:46 First dose [place] Lispro 00 :24 (after Medical (HumaLOG) + last Branch Fsbg modificati Testing on) on [facility] 07/25/22 at 2000, Until Discontinu ed, Routine magnesium No 2g 2 g, IV [facility] ers sulfate in 07-26 Piggyback, it y of water 2 00:45: 03:11 Administer [place] as gram/50 mL 00 :00 over 60 Medica l (4 %) Minutes, Branch infusion 2 ONCE, 1 g dose, On [facility] 07/25/22 at 1945, Routine metOLazone 2021- [...] Oral, ity of XL (TOPROL 14:15: DAILY, [place] XL) tablet 00 First dose Med ical 50 mg on Fri Branch 07/24/22 at 0915, Until Discontinu ed, Routine metoprolol 2021- No 50mg 50 mg, Univ ers succinate 07-24 Oral, ity of XL (TOPROL 14:15: 04:46 DAILY, [facility] s XL) tablet 00 :24 First [...] Rang e, Dosing and Testing: &nbs p;FOR [facility] ONLY - aPTT < [...] Rang e, Dosing and Testing: &nbs p;FOR [facility] ONLY - aPTT < [...] 53 Starting Medi jose tablet 1 on [facility] tablet 07/23/22 at 1031, Until Discontinu ed, Routine, Pain (scale 4-6) HYDROcodone 2021- No 1{tbl} 1 tablet, Univers -acetaminop 07-2318 Oral, ity of hen (NORCO 15:31: 04:46 Q6HPRN, [place] as 5) 5-325 mg 53 :24 Starting Medi jose tablet 1 on [facility] tablet 07/23/22 at 1031, Until 07/27/22 [...] [place] mg 00 First dose Medical on [facility] 07/22/22 at 0900, Until Discontinu ed, Routine montelukast Yes 10mg 10 mg, Univ ers (SINGULAIR) 07-22 Oral, ity of tablet 10 14:00: DAILY, [place] mg 00 First dose Medical on [facility] 07/22/22 at 0900, Until Discontinu ed, Routine spironolact 2021- No 25mg 25 mg, Uni vers one 07-22 Oral, ity of (ALDACTONE) 14:00: 04:46 DAILY, [place] as tablet 25 00 :24 First dose Medi jose mg on [facility] 07/22/22 at 0900, Until Discontinu ed, Routine aspirin No 81mg 81 mg, Univers chewable 07-22 Oral, ity of tablet 81 14:00: 04:46 DAILY, [place] mg 00 :24 First dose Medical on [facility] 07/22/22 at 0900, Until Discontinu ed, Routine losartan 2021- No 25mg 25 mg, Univer s (COZAAR) 07-22 Oral, ity of tablet 25 14:00: 04:46 DAILY, [place] mg 00 :24 First dose Medical on [facility] 07/22/22 at 0900, Until Discontinu ed, Routine montelukast 2021- No 10mg 10 mg, Uni vers (SINGULAIR) 07-22 Oral, ity of tablet 10 14:00: 04:46 DAILY, [place] mg 00 :24 First dose Medical on [facility] 07/22/22 at 0900, Until Discontinu ed, Routine metoprolol 2021- No 50mg 50 mg, Univ ers tartrate 07-22 Oral, BID ity o f (LOPRESSOR) 13:00: 14:10 MEALS, [place] as tablet 50 00 :14 First dose Medi jose mg on [facility] 07/22/22 at 0800, Until Discontinu ed, Routine atorvastati Yes 40mg 40 mg, Univ ers n (LIPITOR) 07-22 Oral, QHS, it y of tablet 40 02:00: First dose [place] mg 00 on [facility] 07/21/22 at Branch 2100, Until Discontinu ed, Routine atorvastati 2021- No 40mg 40 mg, Uni vers n (LIPITOR) 07-22 Oral, QHS, i ty of tablet 40 02:00: 04:46 First dose [place] mg 00 :24 on [facility] 07/21/22 at Branch 2100, Until Discontinu ed, Routine morpHINE (2 2021- No 2mg 2 mg, Slow Univers mg/mL) 07-22 IV Push, ity of injection 2 01:29: 15:32 Q6HPRN, [place] mg 07 :09 Starting Medical on [facility] 07/21/22 at 2029, Until Tu07/23/22 at 1032, Routine, Chest pain furosemide 2021- No 20mg 20 mg, IV U nivers (LASIX) 07-22 Push, ity of injection 01:00: 05:27 Q12H, [place] 20 mg 00 :42 First dose Medical (after Branch last reorder) on [place] 07/21/22 at 2000, Until Discontinu ed, LORI enoxaparin 2021- No 1mg/kg 100 mg Un rita (LOVENOX) 07-22 (rounded ity o f injection 01:00: 05:30 from 98.5 [place] 100 mg 00 :31 mg = 1 Medical mg/kg Branch ?98.5 kg), Subcutaneo us, Q12H, First dose (after last modificati on) on [place] 07/21/22 at 2000, Until Discontinu ed, Routine sulfur 2021- No [id number] 5mL 5 mL, Unive rs hexafluorid 07-21 Intravenou i ty of e microsphr 15:45: 15:45 s, ONCE, 1 [place] (LUMASON) 00 :00 dose, On Medica l injection 5 [place] mL 07/21/22 at 1045, Routine
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 approving Restricted medication : ANA LUISA GRIMM insulin 2021- No 10U 10 Units, Univ ers glargine 07-21 Subcutaneo ity of (LANTUS 14:00: 14:09 us, DAILY, [place] as U-100) 00 :20 First dose Medical injection on [place] Branch 10 Units 07/21/22 at 0900, Until [...] dose [place] Lispro 00 :26 on [facility] Medical (HumaLOG) + 07/20/22 at Br anch Fsbg 1900, Testing Until Discontinu ed, Routine glucagon Yes 1mg 1 mg, Univers (GLUCAGEN 07-20 Intramuscu ity of DIAGNOSTIC 23:48: lar, PRN, [place] KIT) 16 Starting Medical injection 1 on [facility] 07/20/22 at 1848, Until Discontinu ed, LORI, Blood Glucose < or = 70 mg/dL and patient is unable to swallow or has mental changes. dextrose 50 Yes 25mL 25 mL, Univ ers % in water 07-20 Slow IV ity of (D50W) 23:48: Push, PRN, [place] injection 16 Starting Medica l 25 mL on [facility] Branch 07/20/22 at 1848, Until Discontinu ed, LORI, Blood Glucose < or = 70 mg/dL and patient is unable to swallow or has mental status changes. glucagon 2021- No 1mg 1 mg, Univers (GLUCAGEN 07-2018 Intramuscu ity of DIAGNOSTIC 23:48: 04:46 lar, PRN, [place] KIT) 16 :24 Starting Medical injection 1 on [facility] Branch mg 07/20/22 at 1848, [...] status changes. metoprolol No 25mg 25 mg, [facility] ers tartrate 07-20 Oral, Q6H, [...] 00 :00 dose, On Medica l mg [facility] Branch 07/20/22 at 1300, LORI furosemide 2021- No 20mg 20 mg, IV U nivers (LASIX) 07-20 Push, ity of injection 17:58: 18:02 ONCE, 1 [place] 20 mg 00 :00 dose, On Medical [facility] Branch 07/20/22 at 1300, LORI NaCl 0.9% 2021- No 500mL at 999 Univ ers (NS) bolus 07-20 mL/hr, 500 it y of infusion 17:00: 17:15 mL, IV [place] 500 mL 00 :00 Piggyback, Medical ONCE, 1 Branch dose, On [facility] 07/20/22 at 1200, STAT metoprolol 2021- No 5mg 5 mg, Slow Univers (LOPRESSOR) 07-20 IV Push, ity of injection 5 16:15: 16:16 ONCE, 1 [place] mg 00 :00 dose, On Medical [facility] Branch 07/20/22 at 1115, LORI Trelegy Trelegy 0 2020- No Meghana 1 puff Com mon Ellipta Ellipta 2-12 06-11 [place] Spirit 00:00: 00:00 - CHI 00 :00 [facility] HydrOXYzine HydrOXYzine Yes Meghana 1 tablet Common HCl HCl 7 [place] as needed Spirit 00:00: - CHI 00 [facility] Ozempic Ozempic 2020- No Meghana 0.5 mg Com mon 05-11 0824 [place] Spirit 00:00: 00:00 - CHI 00 :00 [facility] Januvia Januvia Yes Meghana as Common 1- [place] directed Spirit 00:00: - CHI 00 [facility] ProAir ProAir Yes Meghana 2 puffs as Comm on RespiClick RespiClick [place] needed [facility] [place] 3 [place] 3 Yes Meghana 1 capsule Com mon [place] [facility] Montelukast Montelukast Yes Meghana 1 tablet Common Sodium Sodium [place] in the [facility] evening [facility] Lipitor Lipitor Yes Meghana 1 tablet Comm on [place] [facility] Losartan Losartan Yes Meghana 1 tablet Co mmon Potassium Potassium [place] Spir it [facility] Metoprolol Metoprolol Yes Meghana 1 tablet Common Tartrate Tartrate [place] with food S pirit [facility] Metformin Metformin Yes Meghana 1 tablet Common HCl HCl [place] with a [facility] meal [facility] Immunizations Ordered Immunization Filled Immunization Date Status Commen ts Source Name Name FLUZONE HIGH DOSE FLUZONE HIGH DOSE 2019-09-14 Completed Common Spirit OVER 65 OVER 65 00:00:00 [facility] Vital Signs Vital Name Observation Time Observation Value Comments Source Systolic blood 2022-07-28 01:43:00 99 mm[Hg] Univer sity of pressure [facility] Diastolic blood 2022-07-28 01:43:00 58 mm[Hg] Unive rsity of pressure [facility] Heart rate 2022-07-28 01:40:00 97 /min [facility] Body temperature 2022-07-28 01:40:00 36.56 Melvi [facility] [place] [facility] Respiratory rate 2022-07-28 01:40:00 18 /min [facility] Oxygen saturation in 2022-07-28 01:40:00 90 /min [facility] blood by [facility] Pulse oximetry Branch Body height 2022-07-26 17:49:00 172.7 cm [facility] Body weight 2022-07-26 17:49:00 96.163 kg [facility] BMI 2022-07-26 17:49:00 32.23 kg/m2 [facility] Systolic blood 2022-07-26 23:31:00 102 mm[Hg] Univer sity of pressure [facility] Diastolic blood 2022-07-26 23:31:00 59 mm[Hg] [facility] Heart rate 2022-07-26 23:31:00 85 /min [facility] Body temperature 2022-07-26 23:31:00 36.56 Melvi [facility] [place] [facility] Respiratory rate 2022-07-26 23:24:00 19 /min [facility] Oxygen saturation in 2022-07-26 23:24:00 93 /min [facility] Arterial blood by [facility] Pulse oximetry Branch Body height 2022-07-26 17:49:00 172.7 cm [facility] Body weight 2022-07-26 17:49:00 96.163 kg [facility] BMI 2022-07-26 17:49:00 32.23 kg/m2 [facility] Procedures Procedure Date / Time Performing Clinician Source Performed POCT GLUCOSE (AUTOMATED) 2022-07-27 16:45:00 Berna Alcantar [facility] POCT GLUCOSE (AUTOMATED) 2022-07-27 16:45:00 Berna Alcantar [facility] MAGNESIUM 2022-07-27 10:46:00 Flora Fox [facility] BASIC METABOLIC PANEL (NA, 2022-07-27 10:46:00 Flora Fox [facility] K, CL, CO2, GLUCOSE, BUN, Medica l Branch CREATININE, CA) N-TERMINAL PRO-BNP 2022-07-27 10:46:00 Flora Fox [facility] MAGNESIUM 2022-07-27 10:46:00 Colt Foxssica [facility] BASIC METABOLIC PANEL (NA, 2022-07-27 10:46:00 [facility], CL, CO2, GLUCOSE, BUN, Medica l Branch CREATININE, CA) N-TERMINAL PRO-BNP 2022-07-27 10:46:00 [facility] POCT GLUCOSE (AUTOMATED) 2022-07-27 10:38:00 Berna Alcantar Uni versity of [facility] POCT GLUCOSE (AUTOMATED) 2022-07-27 10:38:00 KhKeo fernandezm Uni versity of [facility] POCT GLUCOSE (AUTOMATED) 2022-07-27 04:51:00 KhKeo fernandezm Uni versity of [facility] POCT GLUCOSE (AUTOMATED) 2022-07-27 04:51:00 Keo Alcantarm Uni versity of [facility] POCT GLUCOSE (AUTOMATED) 2022-07-27 01:10:00 Keo Alcantarm Uni versity of [facility] POCT GLUCOSE (AUTOMATED) 2022-07-27 01:10:00 KhKeo fernandezm Uni versity of [facility] POCT GLUCOSE (AUTOMATED) 2022-07-26 23:37:00 Berna Alcantar Uni versity of [facility] POCT GLUCOSE (AUTOMATED) 2022-07-26 23:37:00 Berna Alcantar Uni versity of [facility] ACTIVATED PARTIAL THRMPLAS 2022-07-26 23:10:00 [facility]io [facility] [place] [facility] ACTIVATED PARTIAL THRMPLAS 2022-07-26 23:10:00 [facility]velio Son[facility] [place] [facility] CARDIAC CATHETERIZATION 2022-07-26 21:16:04 [facility] CARDIAC CATHETERIZATION 2022-07-26 21:16:04 [facility] CARDIAC CATHETERIZATION 2022-07-26 21:16:04 [facility] ers[facility] CARDIAC CATHETERIZATION 2022-07-26 21:16:04 [facility] CARDIAC CATHETERIZATION 2022-07-26 21:16:04 [facility] ersity of [facility] CARDIAC CATHETERIZATION 2022-07-26 21:16:04 [facility] ersity [facility] CARDIAC CATHETERIZATION 2022-07-26 21:16:04 [place] [facility] ersity of [facility] CARDIAC CATHETERIZATION 2022-07-26 21:16:04 [place] [facility] ersity of [facility] CATH PROCEDURE LOG 2022-07-26 20:55:04 [facility] y of [facility] CATH PROCEDURE LOG 2022-07-26 20:55:04 [facility] POCT GLUCOSE (AUTOMATED) 2022-07-26 16:20:00 Berna Alcantar Uni versity of [facility] POCT GLUCOSE (AUTOMATED) 2022-07-26 16:20:00 Berna Alcantar Uni versity of [facility] POCT GLUCOSE (AUTOMATED) 2022-07-26 12:30:00 Berna Alcantar Uni versity of [facility] POCT GLUCOSE (AUTOMATED) 2022-07-26 12:30:00 Berna Alcantar Uni versity of [facility] POCT GLUCOSE (AUTOMATED) 2022-07-26 11:08:00 Berna Alcantar Uni versity of [facility] POCT GLUCOSE (AUTOMATED) 2022-07-26 11:08:00 Berna Alcantar Uni versity of [facility] POCT GLUCOSE (AUTOMATED) 2022-07-26 08:52:00 Berna Alcantar Uni versity of [facility] POCT GLUCOSE (AUTOMATED) 2022-07-26 08:52:00 Berna Alcantar Uni versity of [facility] MAGNESIUM 2022-07-26 05:35:00 [place], [facility] BASIC METABOLIC PANEL (NA, 2022-07-26 05:35:00 [facility] K, CL, CO2, GLUCOSE, BUN, Medica l Branch CREATININE, CA) ACTIVATED PARTIAL THRMPLAS 2022-07-26 05:35:00 Evelio Soni [facility] EXTRA TUBE LAV 2022-07-26 05:35:00 [place] [facility] MAGNESIUM 2022-07-26 05:35:00 Tobias [facility] BASIC METABOLIC PANEL (NA, 2022-07-26 05:35:00 [facility] K, CL, CO2, GLUCOSE, BUN, Medica l Branch CREATININE, CA) ACTIVATED PARTIAL THRMPLAS 2022-07-26 05:35:00 [facility] TU[facility]AV 2022-07-26 05:35:00 [place] [facility] POCT GLUCOSE (AUTOMATED) 2022-07-26 05:20:[address] [facility] PO[facility] GLUCOSE (AUTOMATED) 2022-07-26 05:20:00 Berna Alcantar [facility] POCT GLUCOSE (AUTOMATED) 2022-07-26 01:45:[address] [facility] POCT GLUCOSE (AUTOMATED) 2022-07-26 01:45:00 [facility]antar [facility] MAG[facility]UM 2022-07-25 22:15:00 Tobias [facility] BASIC METABOLIC PANEL (NA, 2022-07-25 22:15:00 [facility] K, CL, CO2, GLUCOSE, BUN, Medica l Branch CREATININE, CA) ACTIVATED PARTIAL THRMPLAS 2022-07-25 22:15:00 Evelio Soni [facility] MAGNESIUM 2022-07-25 22:15:00 Tobias [facility] BASIC METABOLIC PANEL (NA, 2022-07-25 22:15:00 [facility] K, CL, CO2, GLUCOSE, BUN, Medica l Branch CREATININE, CA) ACTIVATED PARTIAL THRMPLAS 2022-07-25 22:15:00 Evelio Soni niversalberto [facility] POCT GLUCOSE (AUTOMATED) 2022-07-25 21:22:00 Berna Alcantar Uni versity of [facility] POCT GLUCOSE (AUTOMATED) 2022-07-25 21:22:00 Berna Alcantar Uni versity of [facility] POCT GLUCOSE (AUTOMATED) 2022-07-25 20:46:00 Berna Alcantar Uni versity of [facility] POCT GLUCOSE (AUTOMATED) 2022-07-25 20:46:00 Berna Alcantar [facility] versity of [facility] POCT GLUCOSE (AUTOMATED) 2022-07-25 17:09:00 Berna Alcantar Uni versity of [facility] POCT GLUCOSE (AUTOMATED) 2022-07-25 17:09:00 Berna Alcantar Uni versity [facility] HB ECG ROUTINE & RHYTHM 2022-07-25 14:53:13 Berna Collado Uni versity [facility] ACTIVATED PARTIAL THRMPLAS 2022-07-25 14:53:00 Evelio Soni niversalberto [facility] ACTIVATED PARTIAL THRMPLAS 2022-07-25 14:53:00 Evelio Soniersalberto [facility] POCT GLUCOSE (AUTOMATED) 2022-07-25 13:12:00 Berna Alcantar Uni versity of [facility] POCT GLUCOSE (AUTOMATED) 2022-07-25 13:12:00 Berna Alcantar Uni versity of [facility] MAGNESIUM 2022-07-25 11:36:00 [facility] BASIC METABOLIC PANEL (NA, 2022-07-25 11:36:00 Tobias [facility] K, CL, CO2, GLUCOSE, BUN, Medica l Branch CREATININE, CA) CBC WITH DIFF 2022-07-25 11:36:00 [facility] MAGNESIUM 2022-07-25 11:36:00 [facility] BASIC METABOLIC PANEL (NA, 2022-07-25 11:36:00 Tobias [facility] K, CL, CO2, GLUCOSE, BUN, Medica l Branch CREATININE, CA) CBC WITH DIFF 2022-07-25 11:36:00 [facility] ACTIVATED PARTIAL THRMPLAS 2022-07-25 05:15:00 Evelio Soni [facility] ACTIVATED PARTIAL THRMPLAS 2022-07-25 05:15:00 Evelio Soni [facility] POCT GLUCOSE (AUTOMATED) 2022-07-25 01:58:00 [facility]) 2022-07-25 01:58:00 Berna Alcantar [facility] MAGNESIUM 2022-07-24 22:34:00 [facility] BASIC METABOLIC PANEL (NA, 2022-07-24 22:34:00 Tobias [facility] K, CL, CO2, GLUCOSE, BUN, Medica l Branch CREATININE, CA) ACTIVATED PARTIAL THRMPLAS 2022-07-24 22:34:00 Evelio Soni [facility] MAGNESIUM 2022-07-24 22:34:00 [facility] BASIC METABOLIC PANEL (NA, 2022-07-24 22:34:00 Tobias [facility] K, CL, CO2, GLUCOSE, BUN, Medica l Branch CREATININE, CA) ACTIVATED PARTIAL THRMPLAS 2022-07-24 22:34:00 Evelio Soni [facility] POCT GLUCOSE (AUTOMATED) 2022-07-24 20:43:00 Berna Alcantar [facility] POCT GLUCOSE (AUTOMATED) 2022-07-24 20:43:00 Berna Alcantar Uni versity of [facility] POCT GLUCOSE (AUTOMATED) 2022-07-24 17:11:00 Berna Alcantar Uni versity of [facility] POCT GLUCOSE (AUTOMATED) 2022-07-24 17:11:00 Berna Alcantar Uni versity of [facility] POCT GLUCOSE (AUTOMATED) 2022-07-24 14:11:00 Berna Alcantar Uni versity of [facility] POCT GLUCOSE (AUTOMATED) 2022-07-24 14:11:00 [facility] ACTIVATED PARTIAL THRMPLAS 2022-07-24 11:37:00 [facility] ACTIVATED PARTIAL THRMPLAS 2022-07-24 11:37:00 Evelio Soni [facility] MAGNESIUM 2022-07-24 05:51:00 Evelio Soni [facility] BASIC METABOLIC PANEL (NA, 2022-07-24 05:51:00 [facility]io [facility] K, CL, CO2, GLUCOSE, BUN, Medica l Branch CREATININE, CA) PROTHROMBIN TIME / INR 2022-07-24 05:51:00 Evelio Soni [facility] ACTIVATED PARTIAL THRMPLAS 2022-07-24 05:51:00 Evelio [facility] MAGNESIUM 2022-07-24 05:51:00 Evelio Soni [facility] BASIC METABOLIC PANEL (NA, 2022-07-24 05:51:00 Evelio Soni [facility] K, CL, CO2, GLUCOSE, BUN, Medica l Branch CREATININE, CA) PROTHROMBIN TIME / INR 2022-07-24 05:51:00 [facility] PARTIAL THRMPLAS 2022-07-24 05:51:00 Evelio Soni [facility] POCT GLUCOSE (AUTOMATED) 2022-07-24 01:53:[address] [facility] POCT GLUCOSE (AUTOMATED) 2022-07-24 01:53:00 Atul Stephens [facility] (AUTOMATED) 2022-07-23 21:31:00 Atul Stephens [facility] PO[facility]UCOSE (AUTOMATED) 2022-07-23 21:31:00 Atul Stephens Rafael[facility] PO[facility]UCOSE (AUTOMATED) 2022-07-23 17:08:00 Atul Stephens [facility] PO[facility]UCOSE (AUTOMATED) 2022-07-23 17:08:[address] [facility] POCT GLUCOSE (AUTOMATED) 2022-07-23 12:46:[address] [facility] POCT GLUCOSE (AUTOMATED) 2022-07-23 12:46:[address] [facility] MAGNESIUM 2022-07-23 09:15:00 [facility]OLIC PANEL (NA, 2022-07-23 09:15:00 [facility], CL, CO2, GLUCOSE, BUN, Medica l Branch CREATININE, CA) CBC WITH DIFF 2022-07-23 09:15:00 [facility]MINAL PRO-BNP 2022-07-23 09:15:00 George Vizcaino [facility] MAGNESIUM 2022-07-23 09:15:00 George Vizcaino [facility] BASIC METABOLIC PANEL (NA, 2022-07-23 09:15:00 [facility], CL, CO2, GLUCOSE, BUN, Medica l Branch CREATININE, CA) CBC WITH DIFF 2022-07-23 09:15:00 [facility] N-TERMINAL PRO-BNP 2022-07-23 09:15:00 George [facility]caino [facility] POCT GLUCOSE (AUTOMATED) 2022-07-23 02:12:[address] [facility] POCT GLUCOSE (AUTOMATED) 2022-07-23 02:12:[address] [facility] POCT GLUCOSE (AUTOMATED) 2022-07-22 21:12:[address] [facility] POCT GLUCOSE (AUTOMATED) 2022-07-22 21:12:00 Atul Stephens [facility] POCT GLUCOSE (AUTOMATED) 2022-07-22 16:30:[address] [facility] POCT GLUCOSE (AUTOMATED) 2022-07-22 16:30:00 Atul Stephens [facility] POCT GLUCOSE (AUTOMATED) 2022-07-22 12:51:00 Atul Stephens [facility] POCT GLUCOSE (AUTOMATED) 2022-07-22 12:51:00 Atul Stephens [facility] PHOSPHORUS 2022-07-22 08:19:00 Atul Stephens [facility] MAGNESIUM 2022-07-22 08:19:00 Angelo [facility] HEPATIC FUNCTION PANEL 2022-07-22 08:19:00 Atul Stephens [facility] ([id number]) (ALB,T.PRO,BILI Medical Branch T,BU/BC,ALT,AST,ALK PHOS) BASIC METABOLIC PANEL (NA, 2022-07-22 08:19:00 Atul Stephens [facility] K, CL, CO2, GLUCOSE, BUN, Medica l Branch CREATININE, CA) CBC WITH DIFF 2022-07-22 08:19:00 Atul Stephens [facility] N-TERMINAL PRO-BNP 2022-07-22 08:19:00 Atul Stephens [facility] PHOSPHORUS 2022-07-22 08:19:00 Atul Stephens [facility] MAGNESIUM 2022-07-22 08:19:00 Angelo [facility] HEPATIC FUNCTION PANEL 2022-07-22 08:19:00 [id number] (ALB,T.PRO,BILI Medical Branch T,BU/BC,ALT,AST,ALK PHOS) BASIC METABOLIC PANEL (NA, 2022-07-22 08:19:00 Atul Stephens [facility] K, CL, CO2, GLUCOSE, BUN, Medica l Branch CREATININE, CA) CBC WITH DIFF 2022-07-22 08:19:00 Atul Stephens [place] [facility] N-TERMINAL PRO-BNP 2022-07-22 08:19:00 Atul Stephens [facility] POCT GLUCOSE (AUTOMATED) 2022-07-22 01:44:[address] [facility] POCT GLUCOSE (AUTOMATED) 2022-07-22 01:44:[address] [facility] POCT GLUCOSE (AUTOMATED) 2022-07-21 21:52:[address] [facility] POCT GLUCOSE (AUTOMATED) 2022-07-21 21:52:[address] [facility] POCT GLUCOSE (AUTOMATED) 2022-07-21 16:43:[address] [facility] POCT GLUCOSE (AUTOMATED) 2022-07-21 16:43:[address] [facility] TRANSTHORACIC ECHO (TTE) 2022-07-21 15:28:00 Atul Stephens [facility] W/ CONTRAST Medical [facility] TRANSTHORACIC ECHO (TTE) 2022-07-21 15:28:00 Atul Stephens [facility] COMPLETE W/ CONTRAST Medical [facility] POCT GLUCOSE (AUTOMATED) 2022-07-21 15:00:[address] [facility] POCT GLUCOSE (AUTOMATED) 2022-07-21 15:00:[address] [facility] POCT GLUCOSE (AUTOMATED) 2022-07-21 13:04:[address] [facility] POCT GLUCOSE (AUTOMATED) 2022-07-21 13:04:[address] [facility] MAGNESIUM 2022-07-21 09:41:00 [facility]22-07-21 09:41:00 [facility] BASIC METABOLIC PANEL (NA, 2022-07-21 09:41:00 Atul Stephens [facility] K, CL, CO2, GLUCOSE, BUN, Medica l Branch CREATININE, CA) LIPID PANEL ([id number])(TOTAL 2022-07-21 09:41:00 [facility], [facility] TRIGLYCERIDES, HDL) CBC WITH DIFF 2022-07-21 09:41:00 Atul Stephens [facility] N-TERMINAL PRO-BNP 2022-07-21 09:41:00 Atul Stephens [facility] MAGNESIUM 2022-07-21 09:41:00 Atul Stephens [facility] TROPONIN I 2022-07-21 09:41:00 Atul Stephens [facility] BASIC METABOLIC PANEL (NA, 2022-07-21 09:41:00 Atul Stephens [facility] K, CL, CO2, GLUCOSE, BUN, Medica l Branch CREATININE, CA) LIPID PANEL ([id number])(TOTAL 2022-07-21 09:41:00 Ana Luisa Grimm [facility] CHOLESTEROL, [facility] TRIGLYCERIDES, HDL) CBC WITH DIFF 2022-07-21 09:41:00 Atul Stephens [facility] N-TERMINAL PRO-BNP 2022-07-21 09:41:00 Atul Stephens [facility] POCT GLUCOSE (AUTOMATED) 2022-07-21 04:09:00 Atul Stephens [facility] POCT GLUCOSE (AUTOMATED) 2022-07-21 04:09:00 Atul Stephens [facility] BLOOD CULTURE SCREEN 2022-07-21 01:45:00 Atul Stephens [facility] BLOOD CULTURE WORKUP 2022-07-21 01:45:00 Atul Stephens [facility] GRAM POSITIVE BLOOD 2022-07-21 01:45:00 Atul Stephens [facility] PATHOGENS DNA [facility] PROBE-AEROBIC BLOOD CULTURE SCREEN 2022-07-21 01:45:00 Atul Stephens [facility] BLOOD CULTURE WORKUP 2022-07-21 01:45:00 Atul Stephens [facility] GRAM POSITIVE BLOOD 2022-07-21 01:45:00 Atul Stephens [facility] PATHOGENS DNA [facility] PROBE-AEROBIC POCT GLUCOSE (AUTOMATED) 2022-07-21 01:26:00 Atul Stephens [facility] POCT GLUCOSE (AUTOMATED) 2022-07-21 01:26:00 Atul Stephens [facility] BLOOD CULTURE SCREEN 2022-07-20 23:43:00 Atul Stephens [facility] BLOOD CULTURE SCREEN 2022-07-20 23:43:00 Atul Stephens [facility] POCT GLUCOSE (AUTOMATED) 2022-07-20 22:24:00 Atul Stephens [facility] POCT GLUCOSE (AUTOMATED) 2022-07-20 22:24:00 Atul Stephens [facility] URINALYSIS 2022-07-20 17:41:00 Charlene Butt [facility] URINALYSIS 2022-07-20 17:41:00 Charlene Butt [facility] XR CHEST 1 VW 2022-07-20 16:16:00 Charlene Butt [facility] XR CHEST 1 VW 2022-07-20 16:16:00 Charlene Butt [facility] TROPONIN I 2022-07-20 16:10:00 Charlene Butt [facility] COMP. METABOLIC PANEL 2022-07-20 16:10:00 Charlene Butt [facility] ([id number]) [facility] CBC WITH DIFF 2022-07-20 16:10:00 Charlene Butt [facility] GLYCOSYLATED HEMOGLOBIN 2022-07-20 16:10:[address] [facility] (A1C) Medical Branch PROTHROMBIN TIME / INR 2022-07-20 16:10:00 Charlene Butt [facility] ACTIVATED PARTIAL THRMPLAS 2022-07-20 16:10:00 Saniya Butt [facility] N-TERMINAL PRO-BNP 2022-07-20 16:10:00 Charlene Butt [facility] COVID-19 (ID NOW RAPID 2022-07-20 16:10:00 Charlene Butt [facility] TESTING) Medical Branch LAB ONLY COVID 2022-07-20 16:10:[address] [facility] TROPONIN I 2022-07-20 16:10:00 Charlene Butt [facility] COMP. METABOLIC PANEL 2022-07-20 16:10:00 Charlene Butt [facility] ([id number]) Medical Branch CBC WITH DIFF 2022-07-20 16:10:00 Chalrene Butt [facility] GLYCOSYLATED HEMOGLOBIN 2022-07-20 16:10:[address] [facility] (A1C) Medical Branch PROTHROMBIN TIME / INR 2022-07-20 16:10:00 Charlene Butt [facility] ACTIVATED PARTIAL THRMPLAS 2022-07-20 16:10:00 Saniya Butt [facility] N-TERMINAL PRO-BNP 2022-07-20 16:10:00 Charlene Butt [facility] COVID-19 (ID NOW RAPID 2022-07-20 16:10:00 Charlene Butt [facility] TESTING) Medical Branch LAB ONLY COVID 2022-07-20 16:10:00 Charlene Butt [facility] INTERPRETATION Medical Branch HB ECG ROUTINE & RHYTHM 2022-07-20 16:05:41 Charlene Butt [facility] HB ECG ROUTINE & RHYTHM 2022-07-20 16:05:41 Charlene Butt [facility] [place] NOTICE OF PRIVACY 2022-07-20 15:52:39 Doctor Unassigned, [facility] NOTICE OF PRIVACY 2022-07-20 15:52:39 Doctor Unassigned, [facility] HOSPITAL ADMISSION 2022-07-20 05:01:00 Doctor Unassigned, [facility] HOSPITAL ADMISSION 2022-07-20 05:01:00 Doctor Unassigned, [facility] Name [facility] Encounters Start End Encounter Admission Attending Care Care Encounter Source Date/Time Date/Time Type Type Clinicians Facility Department ID 2022-09-03 Outpatient 3 [id number] [place] [id number] [facility] 08:24:57 [facility] [place] [facility] 2022-09-02 Outpatient 3 [id number] [facility] REF [id number] [facility] 14:07:05 [facility] [place] 2021-12-05 [facility] [id number] [facility] 11:06:38 Meghana [address] [facility] 2022-08-15 2022-08-28 Inpatient 3 Julio ENCPL CRD [id number] [facility] 18:17:00 12:00:00 Jose [facility] [place] 2022-07-29 2022-07-29 Transition ARIANE FosterKhadar [id number] Univers 00:00:00 00:00:00 of Care La BUSH [id number] it y of ARSLANZA 4.2.7.2.686 [facility] [id number] [facility] 403 Branch 2022-07-20 2022-07-27 Hospital Charlene Butt 1.2.84 [id number] Univers 11:00:00 21:45:00 Encounter Atul Stephens [id number] [facility] 4.2.7.2 .686 [place] [id number] [facility] 089 Branch 2022-07-20 2022-07-27 [facility] [id number] Univers 11:00:00 21:45:00 [place] ity [facility] 2022-07-26 2022-07-26 Surgery JAMAL Cannon [id number] Univers 18:03:00 21:03:00 Orlando GORDON [id number] it y [facility] 4.2.7.2.686 Jonathan as [id number] [place] [id number] Branch 2020-04-04 2020-04-04 [id number] Common 13:00:00 13:00:[address] [facility] 2020-03-22 2020-03-22 [facility] [id number] Common 15:20:00 15:20:[address] [facility] 2019-12-22 2019-12-22 [facility] [id number] Common 10:40:00 10:40:[address] [facility] 2019-12-15 2019-12-15 [facility] [id number] Common 14:00:00 14:00:[address] [facility] 2019-09-14 2019-09-14 [facility] [id number] Common 13:20:00 13:20:[address] [facility] 2019-05-11 2019-05-11 [facility] [id number] Common 13:00:00 13:00:[address] [facility] 2018-11-11 2018-11-11 [facility] [id number] Common 13:00:00 13:00:[address] [facility] 2018-10-19 2018-10-19 [facility] [id number] Common 08:30:00 08:30:[address] [facility] 2018-04-22 2018-04-22 [facility] [id number] Common 14:00:00 14:00:00 [facility] it [facility] Results Test Description Test Time Test Comments Results Result Comments Source POCT GLUCOSE (AUTOMATED) 2022-07-27 17:05:15 Test Item Value Reference Range Interpretation Comme nts POCT GLU (test code = 1101906739) 264 mg/dL 70-110 H Lab Interpretation (test code = 49002-4) [facility] 17:05:15 Test Item Value Reference Range Interpretation Comments POCT GLU (test code = 3290811153) 264 mg/dL 70-110 H Lab Interpretation (test code = Abnormal 56359-0) [facility] [id number] 15:17:32 Test Item Value Reference Range Interpretation Comments NT-proBNP (test code 1090 pg/mL See_Comment H [Autom ated = 1532394053) message] The system which generated this result transmitted reference range : <=125. The reference range was not used to interpret this result as normal/abnormal . ROSLYN (test code = ROSLYN) Biotin has been reported to cause a negative bias, interpret results relative to patient's use of biotin. Lab Interpretation Abnormal (test code = 99714-3) [facility] [id number] 15:17:32 Test Item Value Reference Range Interpretation Comments NT-proBNP (test code 1090 pg/mL See_Comment H [Autom ated = 7310006398) message] The system which generated this result transmitted reference range : <=125. The reference range was not used to interpret this result as normal/abnormal . ROSLYN (test code = ROSLYN) Biotin has been reported to cause a negative bias, interpret results relative to patient's use of biotin. Lab Interpretation Abnormal (test code = 69149-4) [facility] 11:45:45 Test Item Value Reference Range Interpretation Comments MAGNESIUM (test code = 0871613336) 1.9 mg/dL 1.7-2.4 Lab Interpretation (test code = Normal 98433-9) [facility] (NA, K, CL, CO2, GLUCOSE, BUN, CREATININE, CA)2022-07-27 11:45:45 Test Item Value Reference Range Interpretation Comments NA (test code = 130 mmol/L 135-145 L 4329038786) K (test code = 4.1 mmol/L 3.5-5 9197998360) CL (test code = 89 mmol/L 98-108 L 4270733349) CO2 TOTAL (test code = 37 mmol/L 23-31 H 9628635821) AGAP (test code = 2-16 2142644894) BUN (test code = 32 mg/dL 7-23 H 3270523964) GLUCOSE (test code = 180 mg/dL 70-110 H 5852876502) CREATININE (test code = 0.81 mg/dL 0.6-1.25 5564460888) CALCIUM (test code = 8.5 mg/dL 8.6-10.6 L 4731428449) eGFR (test code = mL/min/1.73m2 5711552773) ROSLYN (test code = ROSLYN) Association of [...] tests). Lab Interpretation Abnormal (test code = 81820-6) [facility] 11:45:45 Test Item Value Reference Range Interpretation Comments MAGNESIUM (test code = 3094894595) 1.9 mg/dL 1.7-2.4 Lab Interpretation (test code = Normal 44172-1) [facility] METABOLIC PANEL (NA, K, CL, CO2, GLUCOSE, BUN, CREATININE, CA)2022-07-27 11:45:45 Test Item Value Reference Range Interpretation Comments NA (test code = 130 mmol/L 135-145 L 2108252829) K (test code = 4.1 mmol/L 3.5-5 7122215074) CL (test code = 89 mmol/L 98-108 L 1335638214) CO2 TOTAL (test code = 37 mmol/L 23-31 H 3721514868) AGAP (test code = 2-16 8477026851) BUN (test code = 32 mg/dL 7-23 H 6612634279) GLUCOSE (test code = 180 mg/dL 70-110 H 3458790750) CREATININE (test code = 0.81 mg/dL 0.6-1.25 6283441569) CALCIUM (test code = 8.5 mg/dL 8.6-10.6 L 4378448180) eGFR (test code = mL/min/1.73m2 5448178777) ROSLYN (test code = ROSLYN) Association of [...] tests). Lab Interpretation Abnormal (test code = 44097-5) [facility] GLUCOSE (AUTOMATED)2022-07-27 10:39:46 Test Item Value Reference Range Interpretation Comments POCT GLU (test code = 6642416718) 198 mg/dL 70-110 H Lab Interpretation (test code = Abnormal 30705-2) [facility] GLUCOSE (AUTOMATED)2022-07-27 10:39:46 Test Item Value Reference Range Interpretation Comments POCT GLU (test code = 4145872290) 198 mg/dL 70-110 H Lab Interpretation (test code = Abnormal 65407-2) [facility] GLUCOSE (AUTOMATED)2022-07-27 04:52:50 Test Item Value Reference Range Interpretation Comments POCT GLU (test code = 0336121009) 213 mg/dL 70-110 H Lab Interpretation (test code = Abnormal 64780-4) [facility] GLUCOSE (AUTOMATED)2022-07-27 04:52:50 Test Item Value Reference Range Interpretation Comments POCT GLU (test code = 0690366742) 213 mg/dL 70-110 H Lab Interpretation (test code = Abnormal 66372-7) [facility] GLUCOSE (AUTOMATED)2022-07-27 01:10:58 Test Item Value Reference Range Interpretation Comments POCT GLU (test code = 1901520923) 284 mg/dL 70-110 H Lab Interpretation (test code = Abnormal 27166-3) [facility] GLUCOSE (AUTOMATED)2022-07-27 01:10:58 Test Item Value Reference Range Interpretation Comments POCT GLU (test code = 7462287030) 284 mg/dL 70-110 H Lab Interpretation (test code = Abnormal 80876-2) [facility] GLUCOSE (AUTOMATED)2022-07-26 23:39:10 Test Item Value Reference Range Interpretation Comments POCT GLU (test code = 9417236856) 199 mg/dL 70-110 H Lab Interpretation (test code = Abnormal 52315-8) [facility] GLUCOSE (AUTOMATED)2022-07-26 23:39:10 Test Item Value Reference Range Interpretation Comments POCT GLU (test code = 5962760071) 199 mg/dL 70-110 H Lab Interpretation (test code = Abnormal 19298-9) [facility] use with [facility] In[facility]2022-07-26 23:32:33 Test Item Value Reference Range Interpretation Comments APTT Patient (test code = See_Comment [ Automated message] 3173-2) The system [employer] generated this result transmitted ref erence range: 26 - 36 Seconds. The re ference range was not u sed to interpret this result as normal/abnor mal. Lab Interpretation (test Normal code = 46115-4) [facility] (for use with Heparin Infusion)2022-07-26 23:32:33 Test Item Value Reference Range Interpretation Comments APTT Patient (test code = See_Comment [ Automated message] 3173-2) The system [employer] generated this result transmitted ref erence range: 26 - 36 Seconds. The re ference range was not u sed to interpret this result as normal/abnor mal. Lab Interpretation (test Normal code = 47932-0) [facility] GLUCOSE (AUTOMATED)2022-07-26 16:22:25 Test Item Value Reference Range Interpretation Comments POCT GLU (test code = 7910348966) 167 mg/dL 70-110 H Lab Interpretation (test code = Abnormal 72675-0) [facility] GLUCOSE (AUTOMATED)2022-07-26 16:22:25 Test Item Value Reference Range Interpretation Comments POCT GLU (test code = 3861087833) 167 mg/dL 70-110 H Lab Interpretation (test code = Abnormal 79433-4) [facility] [facility] 12:31:04 Test Item Value Reference Range Interpretation Comments POCT GLU (test code = 8688413619) 164 mg/dL 70-110 H Lab Interpretation (test code = Abnormal 02304-0) [facility] GLUCOSE (AUTOMATED)2022-07-26 12:31:04 Test Item Value Reference Range Interpretation Comments POCT GLU (test code = 1878472525) 164 mg/dL 70-110 H Lab Interpretation (test code = Abnormal 36802-6) [facility] GLUCOSE (AUTOMATED)2022-07-26 11:09:37 Test Item Value Reference Range Interpretation Comments POCT GLU (test code = 1866703796) 184 mg/dL 70-110 H Lab Interpretation (test code = Abnormal 93986-2) [facility] GLUCOSE (AUTOMATED)2022-07-26 11:09:37 Test Item Value Reference Range Interpretation Comments POCT GLU (test code = 9050324032) 184 mg/dL 70-110 H Lab Interpretation (test code = Abnormal 07564-7) [facility] GLUCOSE (AUTOMATED)2022-07-26 08:53:59 Test Item Value Reference Range Interpretation Comments POCT GLU (test code = 9231626897) 200 mg/dL 70-110 H Lab Interpretation (test code = Abnormal 98283-3) [facility] GLUCOSE (AUTOMATED)2022-07-26 08:53:59 Test Item Value Reference Range Interpretation Comments POCT GLU (test code = 6286690535) 200 mg/dL 70-110 H Lab Interpretation (test code = Abnormal 95746-2) [facility] GLUCOSE (AUTOMATED)2022-07-26 05:20:56 Test Item Value Reference Range Interpretation Comments POCT GLU (test code = 2132715991) 197 mg/dL 70-110 H Lab Interpretation (test code = Abnormal 22215-8) [facility] GLUCOSE (AUTOMATED)2022-07-26 05:20:56 Test Item Value Reference Range Interpretation Comments POCT GLU (test code = 9527703800) 197 mg/dL 70-110 H Lab Interpretation (test code = Abnormal 94753-8) [id number] 03:01:42 Test Item Value Reference Range Interpretation Comments Blood Culture-Aerobic No organisms No growth Previo us (test code = 66699-0) isolated prelim inary verified result was Culture [...] Culture-Anaerobic isolated preliminar y (test code = 41047-1) verifi ed result was Culture In Progress [...] CDT Lab Interpretation Normal (test code = 83678-5) [facility] CULTURE [id number] 03:01:42 Test Item Value Reference Range Interpretation Comments Blood Culture-Aerobic No organisms No growth Previo us (test code = 01832-5) isolated prelim inary verified result was Culture [...] Culture-Anaerobic isolated preliminar y (test code = 26133-8) verifi ed result was Culture In Progress [...] CDT Lab Interpretation Normal (test code = 57897-3) [facility] GLUCOSE (AUTOMATED)2022-07-26 01:46:28 Test Item Value Reference Range Interpretation Comments POCT GLU (test code = 5153955830) 142 mg/dL 70-110 H Lab Interpretation (test code = Abnormal 83037-2[facility]28 Test Item Value Reference Range Interpretation Comments POCT GLU (test code = 7826869948) 142 mg/dL 70-110 H Lab Interpretation (test code = Abnormal 75052-8) [facility] GLUCOSE (AUTOMATED)2022-07-25 21:23:27 Test Item Value Reference Range Interpretation Comments POCT GLU (test code = 3941315570) 159 mg/dL 70-110 H Lab Interpretation (test code = Abnormal 47780-6) [facility] GLUCOSE (AUTOMATED)2022-07-25 21:23:27 Test Item Value Reference Range Interpretation Comments POCT GLU (test code = 6780152551) 159 mg/dL 70-110 H Lab Interpretation (test code = Abnormal 64895-4) [facility] GLUCOSE (AUTOMATED)2022-07-25 20:47:32 Test Item Value Reference Range Interpretation Comments POCT GLU (test code = 2850152837) 151 mg/dL 70-110 H Lab Interpretation (test code = Abnormal 69965-6) [facility] GLUCOSE (AUTOMATED)2022-07-25 20:47:32 Test Item Value Reference Range Interpretation Comments POCT GLU (test code = 1408773914) 151 mg/dL 70-110 H Lab Interpretation (test code = Abnormal 70922-6) [facility] GLUCOSE (AUTOMATED)2022-07-25 17:16:01 Test Item Value Reference Range Interpretation Comments POCT GLU (test code = 0453865885) 389 mg/dL 70-110 H Lab Interpretation (test code = Abnormal 37605-5) [facility] GLUCOSE (AUTOMATED)2022-07-25 17:16:01 Test Item Value Reference Range Interpretation Comments POCT GLU (test code = 5160469737) 389 mg/dL 70-110 H Lab Interpretation (test code = Abnormal 10509-2) [facility] 15:08:51 Test Item Value Reference Range Interpretation Comments APTT Patient (test code = See_Comment [ Automated message] 3173-2) The system [employer] generated this result transmitted ref erence range: 26 - 36 Seconds. The re ference range was not u sed to interpret this result as normal/abnor mal. Lab Interpretation (test Normal code = 60961-0) [facility]22-[facility]-25 15:08:51 Test Item Value Reference Range Interpretation Comments APTT Patient (test code = See_Comment [ Automated message] 3173-2) The system [employer] generated this result transmitted ref erence range: 26 - 36 Seconds. The re ference range was not u sed to interpret this result as normal/abnor mal. Lab Interpretation (test Normal code = 96435-3) [facility] GLUCOSE (AUTOMATED)2022-07-25 13:22:34 Test Item Value Reference Range Interpretation Comments POCT GLU (test code = 6198720355) 168 mg/dL 70-110 H Lab Interpretation (test code = Abnormal 36966-0) [facility] GLUCOSE (AUTOMATED)2022-07-25 13:22:34 Test Item Value Reference Range Interpretation Comments POCT GLU (test code = 2112437545) 168 mg/dL 70-110 H Lab Interpretation (test code = Abnormal 34753-3) [facility] GLUCOSE (AUTOMATED)2022-07-25 01:59:34 Test Item Value Reference Range Interpretation Comments POCT GLU (test code = 1124977413) 202 mg/dL 70-110 H Lab Interpretation (test code = Abnormal 92093-2) [facility] GLUCOSE (AUTOMATED)2022-07-25 01:59:34 Test Item Value Reference Range Interpretation Comments POCT GLU (test code = 3445960263) 202 mg/dL 70-110 H Lab Interpretation (test code = Abnormal 55306-6) [facility] METABOLIC PANEL (NA, K, CL, CO2, GLUCOSE, BUN, CREATININE, CA)2022-07-24 23:06:12 Test Item Value Reference Range Interpretation Comments NA (test code = 135 mmol/L 135-145 4789002433) K (test code = 4.1 mmol/L 3.5-5 9221272602) CL (test code = 95 mmol/L 98-108 L 3669969009) CO2 TOTAL (test code = 39 mmol/L 23-31 H 2506515909) AGAP (test code = 2-16 L 8083159710) BUN (test code = 16 mg/dL 7-23 2579696749) GLUCOSE (test code = 140 mg/dL 70-110 H 2249471578) CREATININE (test code = 0.59 mg/dL 0.6-1.25 L 8886867943) CALCIUM (test code = 8.4 mg/dL 8.6-10.6 L 9304276947) eGFR (test code = mL/min/1.73m2 3343135735) ROSLYN (test code = ROSLYN) Association of [...] tests). Lab Interpretation Abnormal (test code = 47053-3) [facility] Test Item Value Reference Range Interpretation Comments MAGNESIUM (test code = 7807670428) 2.1 mg/dL 1.7-2.4 Lab Interpretation (test code = Normal 10462-3) [facility] METABOLIC PANEL (NA, K, CL, CO2, GLUCOSE, BUN, CREATININE, CA)2022-07-24 23:06:12 Test Item Value Reference Range Interpretation Comments NA (test code = 135 mmol/L 135-145 0442224356) K (test code = 4.1 mmol/L 3.5-5 4811652529) CL (test code = 95 mmol/L 98-108 L 8972510539) CO2 TOTAL (test code = 39 mmol/L 23-31 H 7696330413) AGAP (test code = 2-16 L 6766432196) BUN (test code = 16 mg/dL 7-23 7753143282) GLUCOSE (test code = 140 mg/dL 70-110 H 0533762806) CREATININE (test code = 0.59 mg/dL 0.6-1.25 L 0915580291) CALCIUM (test code = 8.4 mg/dL 8.6-10.6 L 3330122255) eGFR (test code = mL/min/1.73m2 7370978763) ROSLYN (test code = ROSLYN) Association of [...] tests). Lab Interpretation Abnormal (test code = 50035-0) [facility] Test Item Value Reference Range Interpretation Comments MAGNESIUM (test code = 6587043671) 2.1 mg/dL 1.7-2.4 Lab Interpretation (test code = Normal 72449-0) [facility] (for use with Heparin Infusion)2022-07-24 23:00:29 Test Item Value Reference Range Interpretation Comments APTT Patient (test code See_Comment H [Au tomated message] = 3173-2) The system [employer] generated this result transmitted ref erence range: 26 - 36 Seconds. The reference range was not used to int erpret this result as normal/abnormal . Lab Interpretation (test Abnormal code = 57574-5) [facility] (for use with Heparin Infusion)2022-07-24 23:00:29 Test Item Value Reference Range Interpretation Comments APTT Patient (test code See_Comment H [Au tomated message] = 3173-2) The system [employer] generated this result transmitted ref erence range: 26 - 36 Seconds. The reference range was not used to int erpret this result as normal/abnormal . Lab Interpretation (test Abnormal code = 93065-7) [facility] GLUCOSE (AUTOMATED)2022-07-24 20:44:06 Test Item Value Reference Range Interpretation Comments POCT GLU (test code = 4424990142) 161 mg/dL 70-110 H Lab Interpretation (test code = Abnormal 90074-3) [facility] GLUCOSE (AUTOMATED)2022-07-24 20:44:06 Test Item Value Reference Range Interpretation Comments POCT GLU (test code = 2069695522) 161 mg/dL 70-110 H Lab Interpretation (test code = Abnormal 61329-0) [facility] GLUCOSE (AUTOMATED)2022-07-24 17:17:45 Test Item Value Reference Range Interpretation Comments POCT GLU (test code = 5785546760) 257 mg/dL 70-110 H Lab Interpretation (test code = Abnormal 44469-3) [facility] GLUCOSE (AUTOMATED)2022-07-24 17:17:45 Test Item Value Reference Range Interpretation Comments POCT GLU (test code = 0812870337) 257 mg/dL 70-110 H Lab Interpretation (test code = Abnormal 27957-0) [facility] GLUCOSE (AUTOMATED)2022-07-24 14:12:13 Test Item Value Reference Range Interpretation Comments POCT GLU (test code = 6759865741) 201 mg/dL 70-110 H Lab Interpretation (test code = Abnormal 63136-1) [facility] GLUCOSE (AUTOMATED)2022-07-24 14:12:13 Test Item Value Reference Range Interpretation Comments POCT GLU (test code = 9507889034) 201 mg/dL 70-110 H Lab Interpretation (test code = Abnormal 42742-6) [facility] GLUCOSE (AUTOMATED)2022-07-24 01:57:51 Test Item Value Reference Range Interpretation Comments POCT GLU (test code = 4523439487) 214 mg/dL 70-110 H Lab Interpretation (test code = Abnormal 13128-2) [facility] GLUCOSE (AUTOMATED)2022-07-24 01:57:51 Test Item Value Reference Range Interpretation Comments POCT GLU (test code = 3888558216) 214 mg/dL 70-110 H Lab Interpretation (test code = Abnormal 60238-7) [facility] GLUCOSE (AUTOMATED)2022-07-23 21:55:56 Test Item Value Reference Range Interpretation Comments POCT GLU (test code = 4533793763) 184 mg/dL 70-110 H Lab Interpretation (test code = Abnormal 93482-3) [facility] GLUCOSE (AUTOMATED)2022-07-23 21:55:56 Test Item Value Reference Range Interpretation Comments POCT GLU (test code = 7977352230) 184 mg/dL 70-110 H Lab Interpretation (test code = Abnormal 97734-8) [facility] GLUCOSE (AUTOMATED)2022-07-23 17:27:48 Test Item Value Reference Range Interpretation Comments POCT GLU (test code = 8441615484) 259 mg/dL 70-110 H Lab Interpretation (test code = Abnormal 47020-3) [facility] GLUCOSE (AUTOMATED)2022-07-23 17:27:48 Test Item Value Reference Range Interpretation Comments POCT GLU (test code = 2958392403) 259 mg/dL 70-110 H Lab Interpretation (test code = Abnormal 76430-0) [facility] GLUCOSE (AUTOMATED)2022-07-23 13:05:59 Test Item Value Reference Range Interpretation Comments POCT GLU (test code = 6044740083) 154 mg/dL 70-110 H Lab Interpretation (test code = Abnormal 74030-3) [facility] GLUCOSE (AUTOMATED)2022-07-23 13:05:59 Test Item Value Reference Range Interpretation Comments POCT GLU (test code = 9857820004) 154 mg/dL 70-110 H Lab Interpretation (test code = Abnormal 62035-8) [facility] GLUCOSE (AUTOMATED)2022-07-23 09:58:20 Test Item Value Reference Range Interpretation Comments POCT GLU (test code = 6500387474) 177 mg/dL 70-110 H Lab Interpretation (test code = Abnormal 34729-3) [facility] GLUCOSE (AUTOMATED)2022-07-23 09:58:20 Test Item Value Reference Range Interpretation Comments POCT GLU (test code = 5486688435) 177 mg/dL 70-110 H Lab Interpretation (test code = Abnormal 21251-3) [facility] GLUCOSE (AUTOMATED)2022-07-22 21:30:57 Test Item Value Reference Range Interpretation Comments POCT GLU (test code = 9502450141) 194 mg/dL 70-110 H Lab Interpretation (test code = Abnormal 57970-6) [facility] GLUCOSE (AUTOMATED)2022-07-22 21:30:57 Test Item Value Reference Range Interpretation Comments POCT GLU (test code = 4855288674) 194 mg/dL 70-110 H Lab Interpretation (test code = Abnormal 39857-4) [facility] GLUCOSE (AUTOMATED)2022-07-22 16:52:50 Test Item Value Reference Range Interpretation Comments POCT GLU (test code = 6594862341) 197 mg/dL 70-110 H Lab Interpretation (test code = Abnormal 96026-4) [facility] GLUCOSE (AUTOMATED)2022-07-22 16:52:50 Test Item Value Reference Range Interpretation Comments POCT GLU (test code = 6340803085) 197 mg/dL 70-110 H Lab Interpretation (test code = Abnormal 97994-8) [facility] GLUCOSE (AUTOMATED)2022-07-22 13:22:34 Test Item Value Reference Range Interpretation Comments POCT GLU (test code = 5299319957) 150 mg/dL 70-110 H Lab Interpretation (test code = Abnormal 44667-9) [facility] GLUCOSE (AUTOMATED)2022-07-22 13:22:34 Test Item Value Reference Range Interpretation Comments POCT GLU (test code = 7329878798) 150 mg/dL 70-110 H Lab Interpretation (test code = Abnormal 81061-6) [id number] 09:38:27 Test Item Value Reference Range Interpretation Comments NT-proBNP (test code 2160 pg/mL See_Comment H [Autom ated = 4772371276) message] The system which generated this result transmitted reference range : <=125. The reference range was not used to interpret this result as normal/abnormal . ROSLYN (test code = ROSLYN) Biotin has been reported to cause a negative bias, interpret results relative to patient's use of biotin. Lab Interpretation Abnormal (test code = 98870-1) [id number] 09:38:27 Test Item Value Reference Range Interpretation Comments NT-proBNP (test code 2160 pg/mL See_Comment H [Autom ated = 7748048300) message] The system which generated this result transmitted reference range : <=125. The reference range was not used to interpret this result as normal/abnormal . ROSLYN (test code = ROSLYN) Biotin has been reported to cause a negative bias, interpret results relative to patient's use of biotin. Lab Interpretation Abnormal (test code = 65732-2) [facility] Test Item Value Reference Range Interpretation Comments MAGNESIUM (test code = 5099449177) 1.8 mg/dL 1.7-2.4 Lab Interpretation (test code = Normal 75283-5) [facility] 09:31:29 Test Item Value Reference Range Interpretation Comments MAGNESIUM (test code = 3549903151) 1.8 mg/dL 1.7-2.4 Lab Interpretation (test code = Normal 54569-4) [facility] (NA, K, CL, CO2, GLUCOSE, BUN, CREATININE, CA)2022-07-22 09:31:09 Test Item Value Reference Range Interpretation Comments NA (test code = 137 mmol/L 135-145 7670974503) K (test code = 4.0 mmol/L 3.5-5 2083301928) CL (test code = 98 mmol/L 98-108 0845794081) CO2 TOTAL (test code = 34 mmol/L 23-31 H 0837175621) AGAP (test code = 2-16 7008551005) BUN (test code = 16 mg/dL 7-23 7139086681) GLUCOSE (test code = 177 mg/dL 70-110 H 4441437315) CREATININE (test code = 0.66 mg/dL 0.6-1.25 8067981015) CALCIUM (test code = 8.2 mg/dL 8.6-10.6 L 3162088003) eGFR (test code = mL/min/1.73m2 9273428608) ROSLYN (test code = ROSLYN) Association of [...] tests). Lab Interpretation Abnormal (test code = 74217-0) [facility] METABOLIC PANEL (NA, K, CL, CO2, GLUCOSE, BUN, CREATININE, CA)2022-07-22 09:31:09 Test Item Value Reference Range Interpretation Comments NA (test code = 137 mmol/L 135-145 4396534714) K (test code = 4.0 mmol/L 3.5-5 4964527240) CL (test code = 98 mmol/L 98-108 7316064928) CO2 TOTAL (test code = 34 mmol/L 23-31 H 5888989983) AGAP (test code = 2-16 7874049289) BUN (test code = 16 mg/dL 7-23 7067952550) GLUCOSE (test code = 177 mg/dL 70-110 H 8743938246) CREATININE (test code = 0.66 mg/dL 0.6-1.25 6167076213) CALCIUM (test code = 8.2 mg/dL 8.6-10.6 L 5500882569) eGFR (test code = mL/min/1.73m2 7801628035) ROSLYN (test code = ROSLYN) Association of [...] tests). Lab Interpretation Abnormal (test code = 95415-7) [id number] (ALB,T.PRO,BILI T,BU/BC,ALT,AST,ALK PHOS)2022-07-22 09:30:44 Test Item Value Reference Range Interpretation Comments TOTAL BILI (test code = 7486935818) 1.2 mg/dL 0.1-1.1 H BILI UNCON (test code = 7797297756) 0.9 mg/dL 0.1-1.1 BILI CONJ (test code = 4758629242) 0.0 mg/dL 0-0.3 T PROTEIN (test code = 9797377381) 6.5 g/dL 6.3-8.2 ALBUMIN (test code = 8820303785) 3.7 g/dL 3.5-5 ALK PHOS (test code = 8935440309) 67 U/L 34-122 ALTv (test code = 1742-6) 33 U/L 5-50 AST(SGOT) (test code = 5794700630) 30 U/L 13-40 Lab Interpretation (test code = Abnormal 59548-4) [facility] 09:30:44 Test Item Value Reference Range Interpretation Comments PHOSPHORUS (test code = 3113200110) 3.6 mg/dL 2.5-5 Lab Interpretation (test code = Normal 78179-0) [facility][id number][facility] (ALB,T.PRO,BILI T,BU/BC,ALT,AST,ALK PHOS)2022-07-22 09:30:44 Test Item Value Reference Range Interpretation Comments TOTAL BILI (test code = 8772508869) 1.2 mg/dL 0.1-1.1 H BILI UNCON (test code = 6737798401) 0.9 mg/dL 0.1-1.1 BILI CONJ (test code = 0505509889) 0.0 mg/dL 0-0.3 T PROTEIN (test code = 6539719821) 6.5 g/dL 6.3-8.2 ALBUMIN (test code = 0315665836) 3.7 g/dL 3.5-5 ALK PHOS (test code = 6700274190) 67 U/L 34-122 ALTv (test code = 1742-6) 33 U/L 5-50 AST(SGOT) (test code = 7648986880) 30 U/L 13-40 Lab Interpretation (test code = Abnormal 51615-9) [facility] 09:30:44 Test Item Value Reference Range Interpretation Comments PHOSPHORUS (test code = 4051590548) 3.6 mg/dL 2.5-5 Lab Interpretation (test code = Normal 85027-2) [facility] WITH [id number] 09:23:08 Test Item Value Reference Range Interpretation Comments WBC (test code = See_Comment H [Automated 8770-2) message] The system which generated this result transmit artem reference range : 4.20 - 10.70 10*3/?L. The reference range was not used to interpret this result as normal/abnormal . RBC (test code = See_Comment [Automated 334-8) message] The system which generated this result [...] RDW-SD (test code = 46.6 fL 38.5-51.6 78596-8) RDW-CV (test code = 13.5 % 12.1-15.4 788-0) PLT (test code = See_Comment L [Automated 777-3) message] The system which generated this result transmit artem reference range : 150 - 328 10*3/ ?L. The reference range was not u sed to interpret th is result as normal/abnormal . MPV (test code = 12.7 fL 9.8-13 92366-4) NRBC/100 WBC (test See_Comment [Automat ed code = 5657878385) message] The system which generated this result transmit artem reference range : 0.0 - 10.0 /100 WBCs. The reference range was not used to interpret this result as normal/abnormal . NRBC x10^3 (test code See_Comment [Auto mated = 2694206519) message] The system which generated this result transmit artem reference range : 10*3/?L. The reference range was not used to interpret this result as normal/abnormal . GRAN MAT (NEUT) % 71.3 % (test code = 770-8) IMM GRAN % (test code 0.40 % = 9887705285) LYMPH % (test code = 17.4 % 736-9) MONO % (test code = 9.8 % 5905-5) EOS % (test code = 0.8 % 713-8) BASO % (test code = 0.3 % 706-2) GRAN MAT x10^3(ANC) 10.18 10*3/uL 1.99-6.95 H (test code = 6790786289) IMM GRAN x10^3 (test 0.06 10*3/uL 0-0.06 code = 2501283957) LYMPH x10^3 (test code 2.49 10*3/uL 1.09-3.23 = 731-0) MONO x10^3 (test code 1.40 10*3/uL 0.36-1.02 H = 742-7) EOS x10^3 (test code = 0.11 10*3/uL 0.06-0.53 711-2) BASO x10^3 (test code 0.04 10*3/uL 0.01-0.09 = 704-7) Lab Interpretation Abnormal (test code = 91804-3) [facility] WITH [id number] 09:23:08 Test Item Value Reference Range Interpretation [...] RDW-SD (test code = 46.6 fL 38.5-51.6 15035-1) RDW-CV (test code = 13.5 % 12.1-15.4 788-0) PLT (test code = See_Comment L [Automated 777-3) message] The system which generated this result transmit artem reference range : 150 - 328 10*3/ ?L. The reference range was not u sed to interpret th is result as normal/abnormal . MPV (test code = 12.7 fL 9.8-13 17293-6) NRBC/100 WBC (test See_Comment [Automat ed code = 5345757042) message] The system which generated this result transmit artem reference range : 0.0 - 10.0 /100 WBCs. The reference range was not used to interpret this result as normal/abnormal . NRBC x10^3 (test code See_Comment [Auto mated = 4388917018) message] The system which generated this result transmit artem reference range : 10*3/?L. The reference range was not used to interpret this result as normal/abnormal . GRAN MAT (NEUT) % 71.3 % (test code = 770-8) IMM GRAN % (test code 0.40 % = 1610765096) LYMPH % (test code = 17.4 % 736-9) MONO % (test code = 9.8 % 5905-5) EOS % (test code = 0.8 % 713-8) BASO % (test code = 0.3 % 706-2) GRAN MAT x10^3(ANC) 10.18 10*3/uL 1.99-6.95 H (test code = 4580724913) IMM GRAN x10^3 (test 0.06 10*3/uL 0-0.06 code = 8257022124) LYMPH x10^3 (test code 2.49 10*3/uL 1.09-3.23 = 731-0) MONO x10^3 (test code 1.40 10*3/uL 0.36-1.02 H = 742-7) EOS x10^3 (test code = 0.11 10*3/uL 0.06-0.53 711-2) BASO x10^3 (test code 0.04 10*3/uL 0.01-0.09 = 704-7) Lab Interpretation Abnormal (test code = 72050-1) [facility] GLUCOSE (AUTOMATED)2022-07-22 01:47:13 Test Item Value Reference Range Interpretation Comments POCT GLU (test code = 2623049472) 220 mg/dL 70-110 H Lab Interpretation (test code = Abnormal 87623-7) [facility] GLUCOSE (AUTOMATED)2022-07-22 01:47:13 Test Item Value Reference Range Interpretation Comments POCT GLU (test code = 0124326888) 220 mg/dL 70-110 H Lab Interpretation (test code = Abnormal 50230-8) [facility]TOTAL CHOLESTEROL, TRIGLYCERIDES, HDL)2022-07-22 00:19:28 Test Item Value Reference Range Interpretation Comments CHOL (test code = 121 mg/dL 120-200 8911038430) HDL (test code = 28 mg/dL See_Comment L [Automated message] 2155545790) The system [employer] generated this result transmit artem reference range : >=40. The refer ence range was not u sed to interpret th is result as normal/abnormal . HDLC RATIO (test code = See_Comment [Au tomated message] 4484541117) The system [employer] generated this result transmit artem reference range : <=5.0. The refe rence range was not u sed to interpret th is result as normal/abnormal . TRIG (test code = 119 mg/dL 30-170 6006092896) LDL CHOL (test code = 69 mg/dL See_Comment [Auto mated message] 77526-2) The system [employer] generated this result transmit artem reference range : <=160. The refe rence range was not u sed to interpret th is result as normal/abnormal . VLDL (test code = 24 mg/dL 5-60 8000924314) Lab Interpretation (test Abnormal code = 07845-1) [facility]TOTAL CHOLESTEROL, TRIGLYCERIDES, HDL)2022-07-22 00:19:28 Test Item Value Reference Range Interpretation Comments CHOL (test code = 121 mg/dL 120-200 9376702537) HDL (test code = 28 mg/dL See_Comment L [Automated message] 9067901096) The system [employer] generated this result transmit artem reference range : >=40. The refer ence range was not u sed to interpret th is result as normal/abnormal . HDLC RATIO (test code = See_Comment [Au tomated message] 2962065602) The system [employer] generated this result transmit artem reference range : <=5.0. The refe rence range was not u sed to interpret th is result as normal/abnormal . TRIG (test code = 119 mg/dL 30-170 0158038827) LDL CHOL (test code = 69 mg/dL See_Comment [Auto mated message] 99769-8) The system LV Sensors generated this result transmit artem reference range : <=160. The refe rence range was not u sed to interpret th is result as normal/abnormal . VLDL (test code = 24 mg/dL 5-60 8137516265) Lab Interpretation (test Abnormal code = 60096-5) [facility]:55 Test Item Value Reference Range Interpretation Comments Height (test code = in 7559220723) Weight (test code = lbs 0696694939) Systolic BP (test code = mmHg 7406812091) Diastolic BP (test code mmHg = 7042146804) Heart Rate (test code = bpm 3444719077) BSA (test code = 2.04 m2 0688680792) Ao root annulus (test 3.5 cm code = 0325591231) Ao root diam (test code 3.50 cm = 0423461777) Aortic root (test code = 3.5 cm 3829154111) LVOT diameter (test code 2.19 cm = 6094063196) LVOT area (test code = 3.80 cm2 1418628202) LVIDD (test code = 5.30 cm 7201275290) Left Ventricular End 135.3 mL Diastolic Volume by Teichholz Method (test code = 9013413) IVS (test code = 1.26 cm 3105499001) Interventricular Septum 1.26 cm Diastolic Thickness by 2D (test code = 6737295) LVPWD (test code = 1.26 cm 3840547894) PW (test code = 1.26 cm 0.6-1.4 3772270989) EF(Teich) (test code = 16.40 % 7091023353) LVIDS (test code = 4.90 cm 8878954849) Left Ventricular End 113.1 mL Systolic Volume by Teichholz Method (test code = 8740889) FS (test code = 7 % 6734444265) EF - 2D (test code = 16.40 % 05418988) LA size (test code = 4.3 cm 4685398975) TR Peak Anthony (test code = 249.6 cm/s 6002564394) Triscuspid Valve mmHg Regurgitation Peak Gradient (test code = 7857746429) LAV(MOD-sp4) (test code 79.00 mL = 2375048503) E wave decelartion time 0.13 s (test code = 5409047192) MV Peak E Anthony (test code 82.3 cm/s = 2500840193) MV stenosis pressure 1/2 38.8 ms time (test code = 0839193744) MV Peak A Anthony (test code 40.8 cm/s = 6000573414) E/A ratio (test code = ratio 7042405947) MR max PG (test code = 61.50 mm[Hg] 8946941787) MR max anthony (test code = 392.20 cm/s 0077442744) Mr max anthony (test code = 392.2 m/s 2629367870) MV Prop V (test code = 33.40 cm/s 5458431424) MV E/e' septal (test 12.6 cm/s code = 0423597332) Tapse (test code = 1.17 cm 1225410749) LVOT stroke volume (test 52.20 cm3 code = 8049387398) LVOT peak anthony (test code 86.4 cm/s = 3755791409) LVOT mn grad (test code mmHg = 8356242946) AV LVOT peak gradient mmHg (test code = 6449708635) LVOT peak VTI (test code 13.9 cm = 4145036807) LV V1 mean (test code = 57.20 cm/s 6544837902) Aortic valve mean 94.3 cm/s velocity (test code = 6067410480) Ao peak anthony (test code = 125.8 cm/s 6361386463) Ao VTI (test code = 22.6 cm 0766274321) AV area by cont VTI 2.3 cm2 (test code = 6487984507) AV area peak anthony (test 2.6 cm2 code = 9594474479) Ao max PG (test code = 6.30 mm[Hg] 9472110926) AV peak gradient (test mmHg code = 3390343655) AV valve area (test code 2.31 cm2 = 0528101562) AV mean gradient (test mmHg code = 1994222822) Radiology Study observation (narrative) (test code = 42379-1) ROSLYN (test code = ROSLYN) ?Left?Ventricle: Left [...] mL of Lumason ultrasound enhancing agent used. [facility] 00:00:55 Test Item Value Reference Range Interpretation Comments Height (test code = in 2081955087) Weight (test code = lbs 5062856679) Systolic BP (test code = mmHg 0057271271) Diastolic BP (test code mmHg = 6630043697) Heart Rate (test code = bpm 4570854554) BSA (test code = 2.04 m2 3411294953) Ao root annulus (test 3.5 cm code = 0707169735) Ao root diam (test code 3.50 cm = 7841371496) Aortic root (test code = 3.5 cm 2114067922) LVOT diameter (test code 2.19 cm = 8661695701) LVOT area (test code = 3.80 cm2 4095487009) LVIDD (test code = 5.30 cm 3830026423) Left Ventricular End 135.3 mL Diastolic Volume by Teichholz Method (test code = 3742336) IVS (test code = 1.26 cm 2830765687) Interventricular Septum 1.26 cm Diastolic Thickness by 2D (test code = 4172996) LVPWD (test code = 1.26 cm 4807720570) PW (test code = 1.26 cm 0.6-1.5 9026267870) EF(Teich) (test code = 16.40 % 3873778951) LVIDS (test code = 4.90 cm 1982317631) Left Ventricular End 113.1 mL Systolic Volume by Teichholz Method (test code = 6083135) FS (test code = 7 % 7138703619) EF - 2D (test code = 16.40 % 97064058) LA size (test code = 4.3 cm 2311457070) TR Peak Anthony (test code = 249.6 cm/s 4373195926) Triscuspid Valve mmHg Regurgitation Peak Gradient (test code = 0076612206) LAV(MOD-sp4) (test code 79.00 mL = 9032904502) E wave decelartion time 0.13 s (test code = 2245224382) MV Peak E Anthony (test code 82.3 cm/s = 8502796287) MV stenosis pressure 1/2 38.8 ms time (test code = 6336233506) MV Peak A Anthony (test code 40.8 cm/s = 1172262066) E/A ratio (test code = ratio 3299481675) MR max PG (test code = 61.50 mm[Hg] 0562044957) MR max anthony (test code = 392.20 cm/s 4370922139) Mr max anthony (test code = 392.2 m/s 6685587864) MV Prop V (test code = 33.40 cm/s 3981701629) MV E/e' septal (test 12.6 cm/s code = 3262852928) Tapse (test code = 1.17 cm 3720320229) LVOT stroke volume (test 52.20 cm3 code = 5279839075) LVOT peak anthony (test code 86.4 cm/s = 6093672033) LVOT mn grad (test code mmHg = 2125128098) AV LVOT peak gradient mmHg (test code = 6028805768) LVOT peak VTI (test code 13.9 cm = 1357328648) LV V1 mean (test code = 57.20 cm/s 6467358983) Aortic valve mean 94.3 cm/s velocity (test code = 8469003673) Ao peak anthony (test code = 125.8 cm/s 9388150507) Ao VTI (test code = 22.6 cm 6062344842) AV area by cont VTI 2.3 cm2 (test code = 6167345938) AV area peak anthony (test 2.6 cm2 code = 3887279988) Ao max PG (test code = 6.30 mm[Hg] 5038908586) AV peak gradient (test mmHg code = 0782710394) AV valve area (test code 2.31 cm2 = 8497900744) AV mean gradient (test mmHg code = 5348881342) Radiology Study observation (narrative) (test code = 24380-2) ROSLYN (test code = ROSLYN) ?Left?Ventricle: Left [...] mL of Lumason ultrasound enhancing agent used. [facility] GLUCOSE (AUTOMATED)2022-07-21 21:54:48 Test Item Value Reference Range Interpretation Comments POCT GLU (test code = 3828364344) 161 mg/dL 70-110 H Lab Interpretation (test code = Abnormal 06237-3) [facility] GLUCOSE (AUTOMATED)2022-07-21 21:54:48 Test Item Value Reference Range Interpretation Comments POCT GLU (test code = 4736414268) 161 mg/dL 70-110 H Lab Interpretation (test code = Abnormal 52846-1) [facility] GLUCOSE (AUTOMATED)2022-07-21 16:47:05 Test Item Value Reference Range Interpretation Comments POCT GLU (test code = 0917535870) 132 mg/dL 70-110 H Lab Interpretation (test code = Abnormal 60460-6) [facility] GLUCOSE (AUTOMATED)2022-07-21 16:47:05 Test Item Value Reference Range Interpretation Comments POCT GLU (test code = 5202587904) 132 mg/dL 70-110 H Lab Interpretation (test code = Abnormal 62883-1) [facility] GLUCOSE (AUTOMATED)2022-07-21 15:03:01 Test Item Value Reference Range Interpretation Comments POCT GLU (test code = 5608814077) 182 mg/dL 70-110 H Lab Interpretation (test code = Abnormal 31241-3) [facility] GLUCOSE (AUTOMATED)2022-07-21 15:03:01 Test Item Value Reference Range Interpretation Comments POCT GLU (test code = 8126640491) 182 mg/dL 70-110 H Lab Interpretation (test code = Abnormal 95891-9) [facility] with [id number] 14:58:14 Test Item Value Reference Range Interpretation Comments WBC (test code = See_Comment H [Automated 6990-2) message] The system which generated this result transmit artem reference range : 4.20 - 10.70 10*3/?L. The reference range was not used to interpret this result as normal/abnormal . RBC (test code = See_Comment [Automated 289-8) message] The system which generated this result [...] RDW-SD (test code = 46.4 fL 38.5-51.6 19994-7) RDW-CV (test code = 13.5 % 12.1-15.4 788-0) PLT (test code = See_Comment [Automated 777-3) message] The system which generated this result transmit artem reference range : 150 - 328 10*3/ ?L. The reference range was not u sed to interpret th is result as normal/abnormal . MPV (test code = 13.0 fL 9.8-13 28540-9) NRBC/100 WBC (test See_Comment [Automat ed code = 5350090623) message] The system which generated this result transmit artem reference range : 0.0 - 10.0 /100 WBCs. The reference range was not used to interpret this result as normal/abnormal . NRBC x10^3 (test code See_Comment [Auto mated = 0027351504) message] The system which generated this result transmit artem reference range : 10*3/?L. The reference range was not used to interpret this result as normal/abnormal . GRAN MAT (NEUT) % 71.1 % (test code = 770-8) IMM GRAN % (test code 0.40 % = 6219767064) LYMPH % (test code = 17.6 % 736-9) MONO % (test code = 10.3 % 5905-5) EOS % (test code = 0.3 % 713-8) BASO % (test code = 0.3 % 706-2) GRAN MAT x10^3(ANC) 10.55 10*3/uL 1.99-6.95 H (test code = 4443555759) IMM GRAN x10^3 (test 0.06 10*3/uL 0-0.06 code = 1234016611) LYMPH x10^3 (test code 2.61 10*3/uL 1.09-3.23 = 731-0) MONO x10^3 (test code 1.53 10*3/uL 0.36-1.02 H = 742-7) EOS x10^3 (test code = 0.04 10*3/uL 0.06-0.53 L 711-2) BASO x10^3 (test code 0.04 10*3/uL 0.01-0.09 = 704-7) BANDS (test code = Increased A 9406022709) REACT LYMPHS (test Rare code = 3495844095) GIANT PLATELETS (test Present See_Comment A [Auto mated code = 5908-9) message] The system which generated this result transmit artem reference range : (none). The reference range was not used to interpret this result as normal/abnormal . Lab Interpretation Abnormal (test code = 99001-3) [facility] with Ekihcmcfghiz3786-93-26 14:58:14 Test Item Value Reference Range Interpretation [...] RDW-SD (test code = 46.4 fL 38.5-51.6 50007-0) RDW-CV (test code = 13.5 % 12.1-15.4 788-0) PLT (test code = See_Comment [Automated 777-3) message] The system which generated this result transmit artem reference range : 150 - 328 10*3/ ?L. The reference range was not u sed to interpret th is result as normal/abnormal . MPV (test code = 13.0 fL 9.8-13 45895-8) NRBC/100 WBC (test See_Comment [Automat ed code = 6295933076) message] The system which generated this result transmit artem reference range : 0.0 - 10.0 /100 WBCs. The reference range was not used to interpret this result as normal/abnormal . NRBC x10^3 (test code See_Comment [Auto mated = 1251955592) message] The system which generated this result transmit artem reference range : 10*3/?L. The reference range was not used to interpret this result as normal/abnormal . GRAN MAT (NEUT) % 71.1 % (test code = 770-8) IMM GRAN % (test code 0.40 % = 0522352133) LYMPH % (test code = 17.6 % 736-9) MONO % (test code = 10.3 % 5905-5) EOS % (test code = 0.3 % 713-8) BASO % (test code = 0.3 % 706-2) GRAN MAT x10^3(ANC) 10.55 10*3/uL 1.99-6.95 H (test code = 0944346540) IMM GRAN x10^3 (test 0.06 10*3/uL 0-0.06 code = 4593970566) LYMPH x10^3 (test code 2.61 10*3/uL 1.09-3.23 = 731-0) MONO x10^3 (test code 1.53 10*3/uL 0.36-1.02 H = 742-7) EOS x10^3 (test code = 0.04 10*3/uL 0.06-0.53 L 711-2) BASO x10^3 (test code 0.04 10*3/uL 0.01-0.09 = 704-7) BANDS (test code = Increased A 9040924984) REACT LYMPHS (test Rare code = 8087831090) GIANT PLATELETS (test Present See_Comment A [Auto mated code = 5908-9) message] The system which generated this result transmit artem reference range : (none). The reference range was not used to interpret this result as normal/abnormal . Lab Interpretation Abnormal (test code = 07222-3) [facility] GLUCOSE (AUTOMATED)2022-07-21 13:20:46 Test Item Value Reference Range Interpretation Comments POCT GLU (test code = 1555500273) 148 mg/dL 70-110 H Lab Interpretation (test code = Abnormal 24554-5) [facility] GLUCOSE (AUTOMATED)2022-07-21 13:20:46 Test Item Value Reference Range Interpretation Comments POCT GLU (test code = 8867965886) 148 mg/dL 70-110 H Lab Interpretation (test code = Abnormal 48652-2) [facility] Metabolic Panel (NA, K, CL, CO2, GLUCOSE, BUN, CREATININE, CA)2022-07-21 13:17:35 Test Item Value Reference Range Interpretation Comments NA (test code = 134 mmol/L 135-145 L 7686253581) K (test code = 4.1 mmol/L 3.5-5 9720915596) CL (test code = 99 mmol/L 98-108 9703648372) CO2 TOTAL (test code = 32 mmol/L 23-31 H 9809669431) AGAP (test code = 2-16 3866565058) BUN (test code = 17 mg/dL 7-23 0562215729) GLUCOSE (test code = 186 mg/dL 70-110 H 6310572747) CREATININE (test code = 0.65 mg/dL 0.6-1.25 4777390178) CALCIUM (test code = 8.2 mg/dL 8.6-10.6 L 2182499439) eGFR (test code = mL/min/1.73m2 6842872235) ROSLYN (test code = ROSLYN) Association of [...] tests). Lab Interpretation Abnormal (test code = 26333-1) [facility] Metabolic Panel (NA, K, CL, CO2, GLUCOSE, BUN, CREATININE, CA)2022-07-21 13:17:35 Test Item Value Reference Range Interpretation Comments NA (test code = 134 mmol/L 135-145 L 7096706975) K (test code = 4.1 mmol/L 3.5-5 2437531118) CL (test code = 99 mmol/L 98-108 1810595790) CO2 TOTAL (test code = 32 mmol/L 23-31 H 3574485100) AGAP (test code = 2-16 8636723672) BUN (test code = 17 mg/dL 7-23 2040125584) GLUCOSE (test code = 186 mg/dL 70-110 H 5040380801) CREATININE (test code = 0.65 mg/dL 0.6-1.25 3549150049) CALCIUM (test code = 8.2 mg/dL 8.6-10.6 L 9068306480) eGFR (test code = mL/min/1.73m2 7310458943) ROSLYN (test code = ROSLYN) Association of [...] tests). Lab Interpretation Abnormal (test code = 71907-9) [facility] [id number] 12:35:48 Test Item Value Reference Interpretation Comments Range TROPONIN I (test 0.032 ng/mL See_Comment [Automated code = 1747765396) message] The system which generated this result [...] biotin. Lab Interpretation Normal (test code = 64806-8) [facility] [id number] 12:35:48 Test Item Value Reference Interpretation Comments Range TROPONIN I (test 0.032 ng/mL See_Comment [Automated code = 0152510652) message] The system which generated this result [...] biotin. Lab Interpretation Normal (test code = 52515-4) [facility] [id number] 12:32:47 Test Item Value Reference Range Interpretation Comments NT-proBNP (test code 3830 pg/mL See_Comment H [Autom ated = 2269935171) message] The system which generated this result transmitted reference range : <=125. The reference range was not used to interpret this result as normal/abnormal . ROSLYN (test code = ROSLYN) Biotin has been reported to cause a negative bias, interpret results relative to patient's use of biotin. Lab Interpretation Abnormal (test code = 96518-1) [facility] [id number] 12:32:47 Test Item Value Reference Range Interpretation Comments NT-proBNP (test code 3830 pg/mL See_Comment H [Autom ated = 6987436141) message] The system which generated this result transmitted reference range : <=125. The reference range was not used to interpret this result as normal/abnormal . ROSLYN (test code = ROSLYN) Biotin has been reported to cause a negative bias, interpret results relative to patient's use of biotin. Lab Interpretation Abnormal (test code = 03009-5) [facility] [id number] 12:24:10 Test Item Value Reference Range Interpretation Comments MAGNESIUM (test code = 5756930273) 1.8 mg/dL 1.7-2.4 Lab Interpretation (test code = Normal 17694-3) [facility] [id number] 12:24:10 Test Item Value Reference Range Interpretation Comments MAGNESIUM (test code = 0650241693) 1.8 mg/dL 1.7-2.4 Lab Interpretation (test code = Normal 29930-3) [facility] GLUCOSE (AUTOMATED)2022-07-21 04:19:16 Test Item Value Reference Range Interpretation Comments POCT GLU (test code = 1417942957) 169 mg/dL 70-110 H Lab Interpretation (test code = Abnormal 52887-3) [facility] GLUCOSE (AUTOMATED)2022-07-21 04:19:16 Test Item Value Reference Range Interpretation Comments POCT GLU (test code = 1129233038) 169 mg/dL 70-110 H Lab Interpretation (test code = Abnormal 60860-8) [facility] GLUCOSE (AUTOMATED)2022-07-21 02:03:28 Test Item Value Reference Range Interpretation Comments POCT GLU (test code = 2084190310) 242 mg/dL 70-110 H Lab Interpretation (test code = Abnormal 13152-0) [facility] GLUCOSE (AUTOMATED)2022-07-21 02:03:28 Test Item Value Reference Range Interpretation Comments POCT GLU (test code = 3738034992) 242 mg/dL 70-110 H Lab Interpretation (test code = Abnormal 56923-8) [facility]22-[facility]-21 00:46:20 Test Item Value Reference Range Interpretation Comments HGB A1C (test code = 11.1 % 4-5.7 H 4548-4) ROSLYN (test code = ROSLYN) Reference RangesNormal: <5.7%Prediabetes: 5.7 - 6.4%Diabetes: > 6.5% Lab Interpretation (test Abnormal code = 70279-1) [facility]22-[facility]-21 00:46:20 Test Item Value Reference Range Interpretation Comments HGB A1C (test code = 11.1 % 4-5.7 H 4548-4) ROSLYN (test code = ROSLYN) Reference RangesNormal: <5.7%Prediabetes: 5.7 - 6.4%Diabetes: > 6.5% Lab Interpretation (test Abnormal code = 07880-0) [facility] GLUCOSE (AUTOMATED)2022-07-20 22:27:55 Test Item Value Reference Range Interpretation Comments POCT GLU (test code = 3452407715) 234 mg/dL 70-110 H Lab Interpretation (test code = Abnormal 60218-4) [facility] GLUCOSE (AUTOMATED)2022-07-20 22:27:55 Test Item Value Reference Range Interpretation Comments POCT GLU (test code = 8465350454) 234 mg/dL 70-110 H Lab Interpretation (test code = Abnormal 61919-7) [facility] [id number] 17:21:08 Test Item Value Reference Range Interpretation Comments NT-proBNP (test code 3250 pg/mL See_Comment H [Autom ated = 9020592343) message] The system which generated this result transmitted reference range : <=125. The reference range was not used to interpret this result as normal/abnormal . ROSLYN (test code = ROSLYN) Biotin has been reported to cause a negative bias, interpret results relative to patient's use of biotin. Lab Interpretation Abnormal (test code = 12003-8) [facility] [id number] 17:21:08 Test Item Value Reference Range Interpretation Comments NT-proBNP (test code 3250 pg/mL See_Comment H [Autom ated = 8244451044) message] The system which generated this result transmitted reference range : <=125. The reference range was not used to interpret this result as normal/abnormal . ROSLYN (test code = ROSLYN) Biotin has been reported to cause a negative bias, interpret results relative to patient's use of biotin. Lab Interpretation Abnormal (test code = 72668-3) [facility] WITH [id number] 17:16:49 Test Item Value Reference Range Interpretation [...] RDW-SD (test code = 44.7 fL 38.5-51.6 48633-5) RDW-CV (test code = 13.7 % 12.1-15.4 788-0) PLT (test code = See_Comment [Automated 777-3) message] The system which generated this result transmit artem reference range : 150 - 328 10*3/ ?L. The reference range was not u sed to interpret th is result as normal/abnormal . MPV (test code = 12.5 fL 9.8-13 40463-1) NRBC/100 WBC (test See_Comment [Automat ed code = 0887648291) message] The system which generated this result transmit artem reference range : 0.0 - 10.0 /100 WBCs. The reference range was not used to interpret this result as normal/abnormal . NRBC x10^3 (test code See_Comment [Auto mated = 9669166481) message] The system which generated this result transmit artem reference range : 10*3/?L. The reference range was not used to interpret this result as normal/abnormal . GRAN MAT (NEUT) % 76.6 % (test code = 770-8) IMM GRAN % (test code 0.70 % = 3825471414) LYMPH % (test code = 13.8 % 736-9) MONO % (test code = 8.5 % 5905-5) EOS % (test code = 0.1 % 713-8) BASO % (test code = 0.3 % 706-2) GRAN MAT x10^3(ANC) 17.13 10*3/uL 1.99-6.95 H (test code = 0796477166) IMM GRAN x10^3 (test 0.16 10*3/uL 0-0.06 H code = 2496134391) LYMPH x10^3 (test code 3.10 10*3/uL 1.09-3.23 = 731-0) MONO x10^3 (test code 1.91 10*3/uL 0.36-1.02 H = 742-7) EOS x10^3 (test code = 0.06-0.53 L 711-2) BASO x10^3 (test code 0.07 10*3/uL 0.01-0.09 = 704-7) BANDS (test code = Increased A 7628397989) REACT LYMPHS (test Rare code = 5004716750) Lab Interpretation Abnormal (test code = 56959-2) [facility] WITH [id number] 17:16:49 Test Item Value Reference Range Interpretation [...] RDW-SD (test code = 44.7 fL 38.5-51.6 82446-0) RDW-CV (test code = 13.7 % 12.1-15.4 788-0) PLT (test code = See_Comment [Automated 777-3) message] The system which generated this result transmit artem reference range : 150 - 328 10*3/ ?L. The reference range was not u sed to interpret th is result as normal/abnormal . MPV (test code = 12.5 fL 9.8-13 63461-5) NRBC/100 WBC (test See_Comment [Automat ed code = 3659120106) message] The system which generated this result transmit artem reference range : 0.0 - 10.0 /100 WBCs. The reference range was not used to interpret this result as normal/abnormal . NRBC x10^3 (test code See_Comment [Auto mated = 6262598102) message] The system which generated this result transmit artem reference range : 10*3/?L. The reference range was not used to interpret this result as normal/abnormal . GRAN MAT (NEUT) % 76.6 % (test code = 770-8) IMM GRAN % (test code 0.70 % = 8498593652) LYMPH % (test code = 13.8 % 736-9) MONO % (test code = 8.5 % 5905-5) EOS % (test code = 0.1 % 713-8) BASO % (test code = 0.3 % 706-2) GRAN MAT x10^3(ANC) 17.13 10*3/uL 1.99-6.95 H (test code = 1202017183) IMM GRAN x10^3 (test 0.16 10*3/uL 0-0.06 H code = 3940679771) LYMPH x10^3 (test code 3.10 10*3/uL 1.09-3.23 = 731-0) MONO x10^3 (test code 1.91 10*3/uL 0.36-1.02 H = 742-7) EOS x10^3 (test code = 0.06-0.53 L 711-2) BASO x10^3 (test code 0.07 10*3/uL 0.01-0.09 = 704-7) BANDS (test code = Increased A 6530620771) REACT LYMPHS (test Rare code = 9793872535) Lab Interpretation Abnormal (test code = 51824-4) [facility] [id number] 16:42:04 Test Item Value Reference Interpretation Comments Range TROPONIN I (test 0.025 ng/mL See_Comment [Automated code = 0071066195) message] The system which generated this result [...] biotin. Lab Interpretation Normal (test code = 77094-7) [facility] [id number] 16:42:04 Test Item Value Reference Interpretation Comments Range TROPONIN I (test 0.025 ng/mL See_Comment [Automated code = 0117889347) message] The system which generated this result [...] biotin. Lab Interpretation Normal (test code = 43111-6) [facility] 16:[facility]19 Test Item Value Reference Range Interpretation Comments APTT Patient (test See_Comment [Automat ed code = 3173-2) message] The system which generated this result transmitted reference range : 23 - 38 Seconds . The reference range was not used to interpr et this result as normal/abnormal . ROSLYN (test code = ROSLYN) The [facility] patient population mean normal value for aPTT is 30 seconds. Lab Interpretation Normal (test code = 48198-9) [facility] 16:31:19 Test Item Value Reference Range Interpretation Comments APTT Patient (test See_Comment [Automat ed code = 3173-2) message] The system which generated this result transmitted reference range : 23 - 38 Seconds . The reference range was not used to interpr et this result as normal/abnormal . ROSLYN (test code = ROSLYN) The [facility] patient population mean normal value for aPTT is 30 seconds. Lab Interpretation Normal (test code = 06924-6) [facility] (30471)2022-07-20 16:30:19 Test Item Value Reference Range Interpretation Comments NA (test code = 133 mmol/L 135-145 L 2419895078) K (test code = 5.3 mmol/L 3.5-5 H 2679611173) CL (test code = 98 mmol/L 98-108 0545325245) CO2 TOTAL (test code = 27 mmol/L 23-31 3674095760) AGAP (test code = 2-16 1698897726) BUN (test code = 13 mg/dL 7-23 [id number]) GLUCOSE (test code = 273 mg/dL 70-110 H 5605124466) CREATININE (test code = 0.62 mg/dL 0.6-1.25 0060807681) TOTAL BILI (test code = 2.1 mg/dL 0.1-1.1 H 3087414654) CALCIUM (test code = 8.6 mg/dL 8.6-10.6 7577858998) T PROTEIN (test code = 7.3 g/dL 6.3-8.2 4544862398) ALBUMIN (test code = 4.4 g/dL 3.5-5 3065861487) ALK PHOS (test code = 61 U/L 34-122 1572727238) ALTv (test code = 29 U/L 5-50 1742-6) AST(SGOT) (test code = 36 U/L 13-40 5888266661) eGFR (test code = mL/min/1.73m2 6947980301) ROSLYN (test code = ROSLYN) Association of [...] tests). Lab Interpretation Abnormal (test code = 26474-2) [facility]. METABOLIC PANEL (02140)2022-07-20 16:30:19 Test Item Value Reference Range Interpretation Comments NA (test code = 133 mmol/L 135-145 L 6279092150) K (test code = 5.3 mmol/L 3.5-5 H 4431746978) CL (test code = 98 mmol/L 98-108 4181066642) CO2 TOTAL (test code = 27 mmol/L 23-31 4775302853) AGAP (test code = 2-16 7833412962) BUN (test code = 13 mg/dL 7-23 8335919176) GLUCOSE (test code = 273 mg/dL 70-110 H 8355915732) CREATININE (test code = 0.62 mg/dL 0.6-1.25 6863144478) TOTAL BILI (test code = 2.1 mg/dL 0.1-1.1 H 0325563619) CALCIUM (test code = 8.6 mg/dL 8.6-10.6 3923172120) T PROTEIN (test code = 7.3 g/dL 6.3-8.2 0641894773) ALBUMIN (test code = 4.4 g/dL 3.5-5 2977779190) ALK PHOS (test code = 61 U/L 34-122 3007355095) ALTv (test code = 29 U/L 5-50 2-6) AST(SGOT) (test code = 36 U/L 13-40 9806807224) eGFR (test code = mL/min/1.73m2 2242405109) ROSLYN (test code = ROSLYN) Association of [...] tests). Lab Interpretation Abnormal (test code = 77277-2) [facility] [id number] 16:29:23 Test Item Value Reference Range Interpretation Comments PROTIME PATIENT (test See_Comment [Auto mated message] code = 5964-2) The system [employer] generated this result transmitted ref erence range: 12.0 - 1 4.7 Seconds. The re ference range was not u sed to interpret this result as normal/abnor mal. INR (test code = 6301-6) Nor mal INR <1.1; Warfarin Therap eutic range 2.0 to 3. 0 or 2.5 to 3.5, dep ending upon the indica tions. Lab Interpretation (test Normal code = 63898-4) [facility] [id number] 16:29:23 Test Item Value Reference Range Interpretation Comments PROTIME PATIENT (test See_Comment [Auto mated message] code = 5964-2) The system [employer] generated this result transmitted ref erence range: 12.0 - 1 4.7 Seconds. The re ference range was not u sed to interpret this result as normal/abnor mal. INR (test code = 6301-6) Nor mal INR <1.1; Warfarin Therap eutic range 2.0 to 3. 0 or 2.5 to 3.5, dep ending upon the indica tions. Lab Interpretation (test Normal code = 68247-8) [facility]"
[2022-11-30 08:44] LABS: Absolute Lymphocytes (CBC) 2.5 K/uL (0.7-4.9); Hematocrit 47.8 % (39.6-49.0); Lymphocytes % 23.4 % (15.3-44.8); MCV 89.8 fL (80-100); MPV 9.9 fL (7.6-11.3); RBC Red Blood Cell Count 5.32 M/uL (4.33-5.43)
[2022-11-30 08:51] LABS: Protime INR 0.99
[2022-11-30 08:54] LABS: SARS-CoV-2 Antigen Rapid Res Negative (Negative)
[2022-11-30 09:01] LABS: Albumin 3.4 g/dL (3.4-5.0); Bilirubin Direct 0.1 mg/dL (0-0.2); Bilirubin Total 0.5 mg/dL (0.2-1.0); Magnesium 2.3 mg/dL (1.6-2.4); Potassium 4.1 mmol/L (3.5-5.1); Protein, Total 7.4 g/dL (6.4-8.2)
[2022-11-30 09:03] LABS: Troponin High Sensitivity 17.4 pg/mL (<58.9)
--- NOTE | 2022-11-30 09:39 | RAD REPORT ---
EXAM DESCRIPTION: RAD - Chest Single View - 11/30/2022 9:26 am CLINICAL HISTORY: CHEST PAIN COMPARISON: 11/16/2022 FINDINGS: Lines: None. Lungs: Mildly increased opacities in the medial right lower lobe. Aeration of the left lung is simila r. Pleural: No significant pleural effusions or pneumothorax. Cardiac: Similar size and configuration Mediastinum: Within normal limits. Bones: No acute fractures. Other: None IMPRESSION: Mild increased opacities medially within the right lung base probably some atelectasis b ut difficult to exclude pneumonia/pneumonitis.
--- NOTE | 2022-11-30 10:47 | RAD REPORT ---
EXAM DESCRIPTION: CT - Chest For Pe Angio - 11/30/2022 10:34 am CLINICAL HISTORY: chest pain COMPARISON: Thorax Wo Con dated 10/23/2022; Chest For Pe Angio dated 10/20/2022; Thorax Wo Con dated 10/16/2022; Chest For Pe Angio dated 07/03/2022 TECHNIQUE: Dynamically enhanced axial 3 mm thick images of the chest were obtained during administra tion of <100> mL Isovue 370 IV contrast. Coronal and oblique reconstruction images were generated and reviewed. Exam utilizes a protocol for optimal evaluation of pulmonary arterial tree. Maximum intensity projections 3D imaging was utilized All CT scans are performed using dose optimization technique as appropriate and may include automated exposure control or mA/KV adjustment according to patient size. FINDINGS: Chest Wall: No suspicious thyroid nodules or pathologic lymphadenopathy. Lungs: Emphysema. Motion artifact. Pleura: No significant effusions or pneumothorax. Mediastinum/deb: No pathologic lymphadenopathy. Pulmonary arteries/Aorta: No central pulmonary embolus. Note that the segmental and subsegmental pulm onary arteries are not well evaluated due to the degree of motion. No aortic aneurysm. Heart: No significant pericardial effusion. Mild cardiomegaly. Upper abdomen: No acute abnormality.Mild nonspecific adrenal thickening. This is unchanged. Bones: No acute abnormality. Bridging osteophytes in the spine. IMPRESSION: No definite evidence of pulmonary embolism. Note that the segmental and subsegmental pul monary arteries cannot be evaluated due to motion artifact. Emphysema. No acute process otherwise joanie ntified.
--- NOTE | 2022-11-30 12:59 | EDPHYS ---
Physician Documentation [facility] Name: José Pat Age: 72 yrs Sex: Male : 1950 Arrival Date: 11/30/2022 Time: 08:00 Bed 6 Private MD: ED Physician Jayme Rao HPI: 11/30 08:03 This 72 yrs old Male presents to ER via EMS with complaints of Chest Pain > 30 y/o. [facility] 08:03 The patient or guardian reports chest pain that is located primarily in the substernal [facility] area. Onset: gradually, this morning. The pain does not radiate. Is a 72-year-old male with history of atrial fibrillation, CHF, chronic chest pain, COPD, diabetes mellitus the presents emerged part with complaints of substernal chest pain which awoke him this morning. Denies vomiting. Denies shortness of breath.. Historical: - Allergies: 08:08 No Known Allergies; db - Home Meds: 08:08 Eliquis Oral [Active]; Insulin: Lantus Sub-Q [Active]; tamsulosin 0.4 mg Oral cap db [Active]; Albuterol Inhl [Active]; - PMHx: 08:08 Atrial fibrillation; CHF; Chronic Chest Pain; COPD; Diabetes - IDDM; Myocardial db infarction; Noncompliance with medications; - Immunization history:: Adult Immunizations unknown, Client reports receiving the 2nd dose of the Covid vaccine. - Social history:: Smoking status: unknown. ROS: 08:03 Constitutional: Negative for fever, chills, and weight loss. jmm 08:03 Respiratory: Negative for shortness of breath, cough, wheezing, and pleuritic chest pain. 08:03 Cardiovascular: Positive for chest pain. 08:03 All other systems are negative. Exam: 08:03 Constitutional: This is a well developed, well nourished patient who is awake, alert, jmm and in no acute distress. Head/Face: atraumatic. Eyes: EOMI, no conjunctival erythema appreciated ENT: Moist Mucus Membranes Neck: Trachea midline, Supple Chest/axilla: Normal chest wall appearance and motion. Cardiovascular: Regular rate and rhythm. No edema appreciated Respiratory: Normal respirations, no respiratory distress appreciated Abdomen/GI: Non distended Back: Normal ROM Skin: General appearance color normal 08:03 Musculoskeletal/extremity: ROM: intact in all extremities. 08:03 Skin: Appearance: Color: normal in color. 08:03 Neuro: Motor: is normal. 08:03 Psych: Behavior/mood is pleasant, cooperative. 11:40 ECG was reviewed by the Attending Physician. [facility] Vital Signs: 07:57 BP 140 / 119; Pulse 93; Resp 20; Temp 97.9(O); Pulse Ox 95% on R/A; Weight 107.95 kg; db Height 5 ft. 7 in. (170.18 cm); Pain 4/10; 10:01 BP 132 / 91; Pulse 92; Resp 16; Pulse Ox 95% ; bp 10:30 BP 127 / 90; Pulse 90; Resp 16; Pulse Ox 95% on R/A; db 11:15 BP 127 / 87; Pulse 91; Resp 16; Pulse Ox 95% ; bp 12:00 BP 128 / 82; Pulse 91; Resp 18; Pulse Ox 95% on R/A; db 13:25 BP 141 / 86; Pulse 98; Resp 22; Pulse Ox 95% ; bp 07:57 Body Mass Index 37.28 (107.95 kg, 170.18 cm) db MDM: 08:03 Patient medically screened. [facility] 12:57 HEART Score: History: Slightly Suspicious (0), ECG: Non specific repolarization [facility] disturbance / LBTB / PM (1), Age: > or = 65 years (2), Risk Factors: 1 or 2 risk factors (1), [Hypertension] [DM] Troponin: < or = 1 x Normal Limit (0). Data reviewed: vital signs, nurses notes. Management of patient was discussed with the following: Hospitalist: Dr. Rao. Care significantly affected by the following chronic conditions: Diabetes, Congestive Heart Failure. Counseling: I had a detailed discussion with the patient and/or guardian regarding: the historical points, exam findings, and any diagnostic results supporting the discharge/admit diagnosis, lab results, radiology results, to return to the emergency department if symptoms worsen or persist or if there are any questions or concerns that arise at home. 11/30 08:04 Order name: Basic Metabolic Panel; Complete Time: 09:03 [facility] 11/30 08:04 Order name: CBC with Diff; Complete Time: 08:45 [facility] 11/30 08:04 Order name: LFT's; Complete Time: 09:03 [facility] 11/30 08:04 Order name: Magnesium; Complete Time: 09:03 [facility] 11/30 08:04 Order name: NT PRO-BNP; Complete Time: 09:03 [facility] 11/30 08:04 Order name: PT-INR; Complete Time: 08:59 [facility] 11/30 08:04 Order name: Troponin HS; Complete Time: 09:03 [facility] 11/30 08:04 Order name: XRAY Chest (1 view); Complete Time: 09:54 [facility] 11/30 08:04 Order name: EKG; Complete Time: 08:05 [facility] 11/30 08:04 Order name: Cardiac monitoring; Complete Time: 08:11 [facility] 11/30 08:04 Order name: EKG - Nurse/Tech; Complete Time: 08:17 [facility] 11/30 08:04 Order name: SARS RAPID; Complete Time: 08:59 [facility] 11/30 09:55 Order name: CT Chest For PE Angio; Complete Time: 10:48 [facility] 11/30 11:03 Order name: Troponin High Sensitivity: redraw; Complete Time: 12:55 [facility] 11/30 08:04 Order name: IV Saline Lock; Complete Time: 08:30 [facility] 11/30 08:04 Order name: Labs collected and sent; Complete Time: 08:30 [facility] 11/30 08:04 Order name: O2 Per Protocol; Complete Time: 08:11 [facility] 11/30 08:04 Order name: O2 Sat Monitoring; Complete Time: 08:11 [facility] EC:40 Rate is 97 beats/min. MS interval is normal. No ST changes noted. Reviewed by me. [facility] Administered Medications: No medications were administered Disposition: 12/01 13:30 Co-signature as Attending Physician, Jayme Rao MD I reviewed the patient's care rn provided by the Advanced Practice Provider and agree with the diagnosis and treatment plan. Disposition Summary: 11/30/22 12:58 Discharge Ordered Location: Home [facility] Condition: Stable [facility] Diagnosis - Chest pain, unspecified [facility] Followup: m - With: Private Physician - When: 2 - 3 days - Reason: Recheck today's complaints, Continuance of care, Re-evaluation by your physician Discharge Instructions: - Discharge Summary Sheet [facility] - Nonspecific Chest Pain, Adult [facility] Forms: - Medication Reconciliation Form jmm - Thank You Letter jmm - Antibiotic Education jmm - Prescription Opioid Use shalini Signatures: Dispatcher [employer] Juan José Villarreal PA PA jmm Nieto, Roman, MD MD rn Benton, Danielle, RN RN db
--- NOTE | 2022-11-30 12:59 | ER ---
Nurse's Notes [facility] Name: José Pat Age: 72 yrs Sex: Male : 1950 Arrival Date: 11/30/2022 Time: 08:00 Bed 6 Private MD: Diagnosis: Chest pain, unspecified Presentation: 11/30 07:57 Chief complaint: Patient states: WOKEUP WITH CHEST PAIN THIS AM AND CALLED EMS. PAIN db WAS 10/10 HX OF HEART ATTACK EMS states: PATIENT IN AFIB RHYTHM UPON ARRIVAL. PATIENT GIVEN 324MG ASPIRIN. GLUCOSE 169. PATIENT STATES HAS BEEN COMPLIANT WITH MEDICATIONS. Coronavirus screen: Vaccine status: Client denies travel out of the [place] in the last 14 days. Ebola Screen: Patient negative for fever greater than or equal to 101.5 degrees Fahrenheit, and additional compatible Ebola Virus Disease symptoms Patient denies exposure to infectious person. Patient denies travel to an Ebola-affected area in the 21 days before illness onset. No symptoms or risks identified at this time. Initial Sepsis Screen: Does the patient meet any 2 criteria? No. Patient's initial sepsis screen is negative. Does the patient have a suspected source of infection? No. Patient's initial sepsis screen is negative. Risk Assessment: Do you want to hurt yourself or someone else? Patient reports no desire to harm self or others. Onset of symptoms was November 30, 2022. 07:57 Method Of Arrival: EMS: [facility] db 07:57 Acuity: KIT 2 db Triage Assessment: 08:08 General: Appears in no apparent distress. comfortable, Behavior is calm, cooperative. db Pain: Complains of pain in chest. Neuro: No deficits noted. Level of Consciousness is awake, alert, obeys commands, Oriented to person, place, time, situation, Speech is normal. Cardiovascular: Reports chest pain, palpitations, Rhythm is atrial fibrillation. Respiratory: Airway is patent Respiratory effort is even, unlabored, Respiratory pattern is regular, symmetrical. GI: No deficits noted. No signs and/or symptoms were reported involving the gastrointestinal system. : No deficits noted. No signs and/or symptoms were reported regarding the genitourinary system. : No deficits noted. No signs and/or symptoms were reported regarding the genitourinary system. Derm: No deficits noted. No signs and/or symptoms reported regarding the dermatologic system. Musculoskeletal: No deficits noted. No signs and/or symptoms reported regarding the musculoskeletal system. Historical: - Allergies: 08:08 No Known Allergies; db - Home Meds: 08:08 Eliquis Oral [Active]; Insulin: Lantus Sub-Q [Active]; tamsulosin 0.4 mg Oral cap db [Active]; Albuterol Inhl [Active]; - PMHx: 08:08 Atrial fibrillation; CHF; Chronic Chest Pain; COPD; Diabetes - IDDM; Myocardial db infarction; Noncompliance with medications; - Immunization history:: Adult Immunizations unknown, Client reports receiving the 2nd dose of the Covid vaccine. - Social history:: Smoking status: unknown. Screenin:31 [facility] ED Fall Risk Assessment (Adult) History of falling in the last 3 months, db including since admission No falls in past 3 months (0 pts) Confusion or Disorientation No (0 pts) Intoxicated or Sedated No (0 pts) Impaired Gait No (0 pts) Mobility Assist Device Used No (0 pt) Altered Elimination No (0 pt) Score/Fall Risk Level 0 - 2 = Low Risk Oriented to surroundings, Maintained a safe environment, Educated pt \T\ family on fall prevention, incl call for assistance when getting out of bed. 08:31 Abuse screen: Denies threats or abuse. Denies injuries from another. Nutritional db screening: No deficits noted. Tuberculosis screening: No symptoms or risk factors identified. Assessment: 08:10 Reassessment: Patient appears in no apparent distress at this time. Patient and/or db family updated on plan of care and expected duration. Pain level reassessed. Patient is alert, oriented x 3, equal unlabored respirations, skin warm/dry/pink. SEE TRIAGE FOR INITIAL ASSESSMENT. Pain: Complains of pain in chest Pain does not radiate. Pain began suddenly. 10:01 Reassessment: No changes from previously documented assessment. Patient and/or family bp updated on plan of care and expected duration. Pain level reassessed. 11:02 Reassessment: Patient appears in no apparent distress at this time. No changes from db previously documented assessment. Patient and/or family updated on plan of care and expected duration. Pain level reassessed. Patient is alert, oriented x 3, equal unlabored respirations, skin warm/dry/pink. 12:22 Reassessment: Patient appears in no apparent distress at this time. No changes from db previously documented assessment. Patient and/or family updated on plan of care and expected duration. Pain level reassessed. Patient is alert, oriented x 3, equal unlabored respirations, skin warm/dry/pink. 12:23 Reassessment: No changes from previously documented assessment. NURSE AT BEDSIDE db COLLECTING TROPONIN. Vital Signs: 07:57 BP 140 / 119; Pulse 93; Resp 20; Temp 97.9(O); Pulse Ox 95% on R/A; Weight 107.95 kg; db Height 5 ft. 7 in. (170.18 cm); Pain 4/10; 10:01 BP 132 / 91; Pulse 92; Resp 16; Pulse Ox 95% ; bp 10:30 BP 127 / 90; Pulse 90; Resp 16; Pulse Ox 95% on R/A; db 11:15 BP 127 / 87; Pulse 91; Resp 16; Pulse Ox 95% ; bp 12:00 BP 128 / 82; Pulse 91; Resp 18; Pulse Ox 95% on R/A; db 13:25 BP 141 / 86; Pulse 98; Resp 22; Pulse Ox 95% ; bp 07:57 Body Mass Index 37.28 (107.95 kg, 170.18 cm) db ED Course: 08:00 Patient arrived in ED. eb 08:02 Juan José Raines PA is PHCP. [facility] 08:02 Jayme Rao MD is Attending Physician. [facility] 08:04 Collins Monte, RN is Primary Nurse. bp 08:08 Triage completed. db 08:08 Arm band placed on right wrist. db 08:15 Patient has correct armband on for positive identification. Placed in gown. Bed in low bp position. Call light in reach. Side rails up X2. Client placed on continuous cardiac and pulse oximetry monitoring. NIBP monitoring applied. 08:31 Inserted saline lock: 20 gauge in right wrist, using aseptic technique. ,using aseptic db technique. BY COLLINS. Patient maintains SpO2 saturation greater than 95% on room air. 09:28 XRAY Chest (1 view) In Process Unspecified. EDMS 10:36 CT Chest For PE Angio In Process Unspecified. EDMS Administered Medications: No medications were administered Medication: 11:04 VIS not applicable for this client. db Outcome: 12:58 Discharge ordered by MD. chery 13:46 Patient left the ED. bc6 Signatures: Dispatcher [employer] EDMS Juan José Raines PA PA jmm Peltier, Brian, RN RN Virginie Coates Danielle RN RN Tawny Leong [facility]
[2022-11-30 13:54] VITALS: TEMP 97.9; O2SAT 95
[2022-11-30 14:00] VITALS: BP 141/86
--- NOTE | 2022-12-02 16:58 | EKG ---
Test Date: 2022-11-30 Test Time: 08:11:41 Space Scheduler: HAYDEE MEASUREMENT RESULTS: Intervals: Rate: 97 MD: 212 QRSD: 138 QT: 422 QTc: 535 [place]: P: 24 MD: 212 QRS: 269 T: -6 INTERPRETIVE STATEMENTS: Sinus rhythm with 1st degree AV block with premature atrial complexes Right bundle branch block Inferior infarct, age undetermined Anterior infarct, age undetermined Abnormal ECG Compared to ECG 11/16/2022 17:33:12 Left-axis deviation no longer present Myocardial infarct finding still present Electronically Signed On 12-02-22 16:55:12 [employer] by Gianluca Garcia
== END 2022-11-30 13:46 | disposition home or self-care (01) ==
LOC: ER 07:57
DX: R07.9 Chest pain, unspecified (principal); E11.9 Type 2 diabetes mellitus without complications; Z79.4 Long term (current) use of insulin; I50.9 Heart failure, unspecified; I48.91 Unspecified atrial fibrillation; Z79.01 Long term (current) use of anticoagulants; Z20.822 Contact with and (suspected) exposure to COVID-19
CPT/HCPCS: 93005; 85025; 80048; 36415; 83735; 85610; 80076; 84484 ×2; 83880; 71275; 71045; 99285; 87811; Q9967

== ENCOUNTER 2022-12-11 18:38 | Observation (INO) | payer OTHER ==
--- OUTSIDE RECORDS SUMMARY | 2022-12-11 18:44 | XMS REPORT | Continuity of Care Document ---
:1950 Author Organization [facility] t Address [address] [place] [address] Care Team Providers Name Role Phone Pcp, Patient Does Not Have A Primary Care Physician [phone] Attending Clinician Unavailable Meghana Ayala Attending Clinician Unavailable Jose Kim Rahil Attending Clinician Unavailable Cristian SALVADOR, [place] Attending Clinician Unavailable Charlene Butt DO Attending Clinician Atul Stephens MD Attending Clinician Berna Alcantar MD Attending Clinician [phone] BERNA ALCANTAR Attending Clinician Unavailable Orlando Cannon MD Attending Clinician [id number] Admitting Clinician Unavailable Jose Kim Rahil Admitting Clinician Unavailable Berna Alcantar MD Admitting Clinician [phone] BERNA ALCANTAR Admitting Clinician Unavailable Payers Payer Name Policy Type Policy Number Effective Date Expiration Date S cindy [facility] [id number] Problems Condition Condition Condition Status Onset Resolution Last Treating Co mments Source Name Details Category Date Date Treatment Clinician Date Acute on Acute on Disease Active Unive rs chronic chronic 9-11 ity of combined combined 00:00: [place] systolic systolic 00 Medica l and and [...] vers smoker smoker 07-21 ity of 00:00: [place] 00 Medical Branch Type 2 Type 2 Disease Active Univers diabetes diabetes 07-21 ity of mellitus mellitus 00:00: [place] without without 00 Medical complicati complicati Br [...] Added automatic ally from request for surgery [id number] CHF CHF Problem Active Common (congestiv (congestiv Sp anabela e heart e heart - [facility] failure) failure) [facility] Hypertensi Hypertensi Problem Active C ommon on on Spirit - [facility] Diabetes Diabetes Problem Active Commo n type 2, type 2, Spirit controlled controlled - [facility] COPD COPD Problem Active Common (chronic (chronic Spirit obstructiv obstructiv - [facility] e e St pulmonary pulmonary [place] disease) disease) [facility] Nicotine Nicotine Problem Active Commo n dependence dependence Sp anabela - [facility] Seasonal Seasonal Problem Active Commo n allergic allergic Spirit rhinitis rhinitis - [facility] Adjustment Adjustment Problem Active C ommon disorder disorder Spirit with with - [facility] depressed depressed [facility] Chronic Chronic Problem Active Common fatigue fatigue Spirit - [facility] Type 2 Type 2 Problem [...] Active Univers ALLERGIE Class ity of S [facility] Social History Social Habit Start Date Stop Date Quantity Comments Source History of Cigarette Smoker Universi ty of tobacco use [place] [facility] History SDOH Food 2022-07-29 2022-07-29 1 Univers ity of Worry 00:00:00 00:00:00 [place] [facility] History SDOH Food 2022-07-29 2022-07-29 1 Univers ity of Scarcity 00:00:00 00:00:00 [place] [facility] History SDOH 2022-07-29 2022-07-29 2 University o f Transport Med 00:00:00 00:00:00 [place] Medic al Branch History [facility] 2022-07-29 2022-07-29 2 University o f Transport Non-Med 00:00:00 00:00:00 [facility] edical Branch Tobacco use and 2022-07-21 2022-07-21 Smokeless tobacco Un iversity of exposure 00:00:00 00:00:00 non-user [facility] Exposure to 2022-07-10 2022-07-20 Not sure University of SARS-CoV-2 00:00:00 10:56:00 [facility] (event) Branch Sex Ass[birth year] At [birth year] Universit y of 00:00:00 00:00:00 [facility] Smoking Status Start Date Stop Date Source Smokes tobacco daily 2022-07-21 00:00:00 Univers ity of [facility] Medications Ordered Filled Start [...] Until Discontinu ed, Routine furosemide 2021-0 Yes [id number] 40mg Take 1 Univers 40 mg 9-18 tablet by ity of tablet 00:00: mouth in [place] 00 the Medical morning Branch and 1 tablet in the evening. metoprolol 2021-0 Yes [id number] 50mg Take 1 Univers succinate 9-18 tablet by ity o f XL 50 mg 24 00:00: [place] hr tablet 00 the Medical morning. Branch spironolact 2021-0 Yes [id number] 25mg Take 1 Univers one 25 mg 9-18 tablet by ity o f tablet 00:00: mouth in [place] 00 the Medical morning. Branch furosemide 2021-0 Yes [id number] 40mg Take 1 Univers 40 mg 9-18 tablet by ity of tablet 00:00: mouth in [place] 00 the Medical morning Branch and 1 tablet in the evening. metoprolol 2021-0 Yes [id number] 50mg Take 1 Univers succinate 9-18 tablet by ity o f XL 50 mg 24 00:00: [place] hr tablet 00 the Medical morning. Branch spironolact 2021-0 Yes [id number] 25mg Take 1 Univers one 25 mg 9-18 tablet by ity o f tablet 00:00: mouth in [place] 00 the Medical morning. Branch furosemide 2021-0 Yes [id number] 40mg Take 1 Univers 40 mg 9-18 tablet by ity of tablet 00:00: mouth in [place] 00 the Medical morning Branch and 1 tablet in the evening. metoprolol 2021-0 Yes [id number] 50mg Take 1 Univers succinate 9-18 tablet by ity o f XL 50 mg 24 00:00: [place] hr tablet 00 the Medical morning. Branch spironolact 2021-0 Yes [id number] 25mg Take 1 Univers one 25 mg 9-18 tablet by ity o f tablet 00:00: mouth in [place] 00 the Medical morning. Branch aspirin 2021-0 [...] by ity o f 21:46: mouth in [place] 23 the Medical morning. Branch montelukast 0 Yes 1{tbl} Take 1 Un rita 10 mg 9-17 tablet by ity of tablet 21:46: mouth in [place] 23 the Medical morning. Branch albuterol Yes 2{puff} Take 2 Uni vers sulfate 9-17 Puffs by ity of (PROAIR 21:46: mouth as [place] RESPICLICK) 23 needed for Me dical 90 Cough. Branch mcg/actuati Cough, on AePB wheezing aspirin Yes 81mg Take 81 mg Univ ers (ASPIR-LOW 9-17 by mouth 2 ity of ORAL) 21:46: (two) [place] [id number] times Medical daily. Branch insulin Yes 15U inject 15 Unive rs glargine,hu 9-17 Units ity of m.rec.anlog 21:46: under the [place] (LANTUS 23 skin. Medical U-100 Branch INSULIN SC) losartan 25 Yes 1{tbl} Take 1 Un rita mg tablet 9-17 tablet by ity o f 21:46: mouth in [place] 23 the Medical morning. Branch montelukast Yes 1{tbl} Take 1 Un rita 10 mg 9-17 tablet by ity of tablet 21:46: mouth in [place] 23 the Medical morning. Branch albuterol Yes 2{puff} Take 2 Uni vers sulfate 9-17 Puffs by ity of (PROAIR 21:46: mouth as [place] RESPICLICK) 23 needed for Me dical 90 Cough. Branch mcg/actuati Cough, on AePB wheezing aspirin 2021-0 Yes 81mg Take 81 mg Univ ers (ASPIR-LOW 9-17 by mouth 2 ity of ORAL) 21:46: (two) [place] 23 times Medical daily. Branch insulin 2022-0 Yes 15U inject 15 Unive rs glargine,hu 9-17 Units ity of m.rec.anlog 21:46: under the [place] (LANTUS 23 skin. Medical U-100 Branch INSULIN SC) losartan 25 Yes 1{tbl} Take 1 Un rita mg tablet 9-17 tablet by ity o f 21:46: mouth in [place] 23 the Medical morning. Branch montelukast Yes 1{tbl} Take 1 Un rita 10 mg 9-17 tablet by ity of tablet 21:46: mouth in [place] 23 the Medical morning. Branch albuterol Yes 2{puff} Take 2 Uni vers sulfate 9-17 Puffs by ity of (PROAIR 21:46: mouth as [place] RESPICLICK) 23 needed for Me dical 90 [...] Branch 07/26/22 at 2030, Routine atorvastati Yes [id number] 40mg Take 1 Univers n 40 mg 9-17 tablet by ity of tablet 00:00: mouth at [place] 00 bedtime. Medical Branch apixaban Yes 1358 5mg Take 1 Univers (ELIQUIS) 5 9-17 tablet by ity of mg tablet 00:00: [place] 00 the Medical morning Branch and 1 tablet in the evening. Indication s: atrial fibrillati on atorvastati Yes [id number] 40mg Take 1 Univers n 40 mg 9-17 tablet by ity of tablet 00:00: mouth at [place] 00 bedtime. Medical Branch apixaban Yes 1358 5mg Take 1 Univers (ELIQUIS) 5 9-17 tablet by ity of mg tablet 00:00: [place] 00 the Medical morning Branch and 1 tablet in the evening. Indication s: atrial fibrillati on atorvastati Yes [id number] 40mg Take 1 Univers n 40 mg 9-17 tablet by ity of tablet 00:00: mouth at [place] 00 bedtime. [facility] Branch apixaban Yes 1358 5mg Take 1 [...] last Branch Fsbg modificati Testing on) on [facility] 07/25/22 at 2000, Until Discontinu ed, Routine Sliding No Subcutaneo Uni vers Scale 07-26 us, Q6H, ity of Insulin - 01:00: 04:46 First dose [place] Lispro 00 :24 (after Medical (HumaLOG) + last Branch Fsbg modificati Testing on) on [place] 07/25/22 at 2000, Until Discontinu ed, Routine magnesium No 2g 2 g, IV Univ ers sulfate in 07-26 Piggyback, it y of water 2 00:45: 03:11 Administer Jonathan as gram/50 mL 00 :00 over 60 Medica l (4 %) Minutes, Branch infusion 2 ONCE, 1 g dose, On [facility] 07/25/22 at 1945, Routine metOLazone 2021- No [...] Oral, ity of XL (TOPROL 14:15: DAILY, [place] XL) tablet 00 First dose Med ical 50 mg on Fri Branch 07/24/22 at 0915, Until Discontinu ed, Routine metoprolol 2021- No 50mg 50 mg, Univ ers succinate 07-24 Oral, ity of XL (TOPROL 14:15: 04:46 DAILY[facility] tablet 00 :24 First dose Med ical 50 mg on Fri Branch 07/24/22 at 0915, Until Discontinu ed, Routine furosemide No 20mg 20 mg, Univ ers (LASIX) [...] e, Dosing and Testing: &nbs p;FOR [facility], [facility], AND [facility] ONLY - aPTT < [...] Rang e, Dosing and Testing: &nbs p;FOR [facility], [facility], AND [facility] ONLY - aPTT < [...] 53 Starting Medi jose tablet 1 on [facility] tablet 07/23/22 at 1031, Until Discontinu ed, Routine, Pain (scale 4-6) HYDROcodone 2021- No 1{tbl} 1 tablet, Univers -acetaminop 07-2318 Oral, ity of hen (NORCO 15:31: 04:46 Q6HPRN, [place] as 5) 5-325 mg 53 :24 Starting Medi jose tablet 1 on Fri [place] tablet 07/23/22 at 1031, Until 07/27/22 at [...] [place] mg 00 First dose Medical on [facility] 07/22/22 at 0900, Until Discontinu ed, Routine montelukast Yes 10mg 10 mg, Univ ers (SINGULAIR) 07-22 Oral, ity of tablet 10 14:00: DAILY, [place] mg 00 First dose Medical on [facility] 07/22/22 at 0900, Until Discontinu ed, Routine spironolact 2021- No 25mg 25 mg, Uni vers one 07-22 Oral, ity of (ALDACTONE) 14:00: 04:46 DAILY, [place] as tablet 25 00 :24 First dose Medi jose mg on [facility] 07/22/22 at 0900, Until Discontinu ed, Routine aspirin No 81mg 81 mg, Univers chewable 07-22 Oral, ity of tablet 81 14:00: 04:46 DAILY, [place] mg 00 :24 First dose Medical on [facility] 07/22/22 at 0900, Until Discontinu ed, Routine losartan 2021- No 25mg 25 mg, Univer s (COZAAR) 07-22 Oral, ity of tablet 25 14:00: 04:46 DAILY, [place] mg 00 :24 First dose Medical on [facility] 07/22/22 at 0900, Until Discontinu ed, Routine montelukast 2021- No 10mg 10 mg, Uni vers (SINGULAIR) 07-22 Oral, ity of tablet 10 14:00: 04:46 DAILY, [place] mg 00 :24 First dose Medical on [facility] 07/22/22 at 0900, Until Discontinu ed, Routine metoprolol 2021- No 50mg 50 mg, Univ ers tartrate 07-22 Oral, BID ity o f (LOPRESSOR) 13:00: 14:10 MEALS, [place] as tablet 50 00 :14 First dose Medi jose mg on [facility] 07/22/22 at 0800, Until Discontinu ed, Routine atorvastati Yes 40mg 40 mg, Univ ers n (LIPITOR) 07-22 Oral, QHS, it y of tablet 40 02:00: First dose [place] mg 00 on [facility] 07/21/22 at Branch 2100, Until Discontinu ed, Routine atorvastati 2021- No 40mg 40 mg, Uni vers n (LIPITOR) 07-22 Oral, QHS, i ty of tablet 40 02:00: 04:46 First dose [place] mg 00 :24 on [facility] 07/21/22 at Branch 2100, Until Discontinu ed, Routine morpHINE (2 2021- No 2mg 2 mg, Slow Univers mg/mL) 07-22 IV Push, ity of injection 2 01:29: 15:32 Q6HPRN, [place] mg 07 :09 Starting Medical on [facility] 07/21/22 at 2029, Until Tu07/23/22 at 1032, Routine, Chest pain furosemide 2021- No 20mg 20 mg, IV U nivers (LASIX) 07-22 Push, ity of injection 01:00: 05:27 Q12H, [place] 20 mg 00 :42 First dose Medical (after Branch last reorder) on [place] 07/21/22 at 2000, Until Discontinu ed, LORI enoxaparin 2021- No 1mg/kg 100 mg Un rita (LOVENOX) 07-22 (rounded ity o f injection 01:00: 05:30 [place] 98.5 [place] 100 mg 00 :31 mg = 1 Medical mg/kg Branch ?98.5 kg), Subcutaneo us, Q12H, First dose (after last modificati on) on [place] 07/21/22 at 2000, Until Discontinu ed, Routine sulfur 2021- No [id number] 5mL 5 mL, Unive rs hexafluorid 07-21 Intravenou i ty of e microsphr 15:45: 15:45 s, ONCE, 1 [place] (LUMASON) 00 :00 dose, On Medica l injection 5 [place] Branch mL 07/21/22 at 1045, Routine
seafood service team member approving Restricted medication : ANA [...] dose [place] Lispro 00 :26 on [facility] Medical (HumaLOG) + 07/20/22 at Br anch Fsbg 1900, Testing Until Discontinu ed, Routine glucagon Yes 1mg 1 mg, Univers (GLUCAGEN 07-20 Intramuscu ity of DIAGNOSTIC 23:48: lar, PRN, [place] KIT) 16 Starting Medical injection 1 on [facility] 07/20/22 at 1848, Until Discontinu ed, LORI, Blood Glucose < or = 70 mg/dL and patient is unable to swallow or has mental changes. dextrose 50 Yes 25mL 25 mL, Univ ers % in water 07-20 Slow IV ity of (D50W) 23:48: Push, PRN, [place] injection 16 Starting Medica l 25 mL on [facility] Branch 07/20/22 at 1848, Until Discontinu ed, LORI, Blood Glucose < or = 70 mg/dL and patient is unable to swallow or has mental status changes. glucagon 2021- No 1mg 1 mg, Univers (GLUCAGEN 07-2018 Intramuscu ity of DIAGNOSTIC 23:48: 04:46 lar, PRN, [place] KIT) 16 :24 Starting Medical injection 1 on [facility] Branch mg 07/20/22 at 1848, Until [...] [facility] ers tartrate 07-20 Oral, Q6H, ity of [...] at 1700, Until Discontinu ed, Routine metoprolol 2021- No 5mg 5 mg, [...] On Branch 07/20/22 at 1500, Routine acetaminoph 2022-0 Yes 650mg 650 mg, Un rita en [...] 00 :00 dose, On Medica l mg [facility] Branch 07/20/22 at 1300, LORI furosemide 2021- No 20mg 20 mg, IV U nivers (LASIX) 07-20 Push, ity of injection 17:58: 18:02 ONCE, 1 [place] 20 mg 00 :00 dose, On Medical [facility] Branch 07/20/22 at 1300, LORI NaCl [...] [place] mg 00 :00 dose, On Medical [facility] Branch 07/20/22 at 1115, LORI Trelegy Trelegy 0 2020- No Meghana 1 puff Com mon Ellipta Ellipta 2-12 06-11 [place] Spirit 00:00: 00:00 - [facility] 00 :00 [facility] HydrOXYzine HydrOXYzine Yes Meghana 1 tablet Common HCl HCl 7 [place] as needed Spirit 00:00: - [facility]I 00 [facility] Ozempic Ozempic 2018- 2020- No Meghana 0.5 mg Com mon 05-11 0824 [facility] Spirit 00:00: 00:00 - [facility]I 00 :00 [facility] Januvia Januvia Yes Meghana as Common 1- [place] directed Spirit 00:00: - [facility]I 00 [facility] ProAir ProAir Yes Meghana 2 puffs as Comm on RespiClick RespiClick [place] needed [facility] [place] 3 [place] 3 Yes Meghana 1 capsule Com mon Schley [facility] Montelukast Montelukast Yes Meghana 1 tablet Common Sodium Sodium [facility] in the [facility] evening [facility] Lipitor Lipitor Yes Meghana 1 tablet Comm on Schley [facility] Losartan Losartan Yes Meghana 1 tablet Co mmon Potassium Potassium [facility] Spir it [facility] Metoprolol Metoprolol Yes Meghana 1 tablet Common Tartrate Tartrate [place] with food S pirit [facility] Metformin Metformin Yes Meghana 1 tablet Common HCl HCl [facility] with a [facility] meal [facility] Immunizations Ordered Immunization Filled Immunization Date Status Commen ts Source Name Name FLUZONE HIGH DOSE FLUZONE HIGH DOSE 2019-09-14 Completed Common Spirit OVER 65 OVER 65 00:00:00 - [facility] Vital Signs Vital Name Observation Time Observation Value Comments Source Systolic blood 2022-07-28 01:43:00 99 mm[Hg] Univer sity of pressure [facility] Diastolic blood 2022-07-28 01:43:00 58 mm[Hg] Unive rsity of pressure [facility] Heart rate 2022-07-28 01:40:00 97 /min [facility] Body temperature 2022-07-28 01:40:00 36.56 Melvi [facility] Respiratory rate 2022-07-28 01:40:00 18 /min [facility] Oxygen saturation in 2022-07-28 01:40:00 90 /min [facility] Arterial blood by [facility] Pulse oximetry Branch Body height 2022-07-26 17:49:00 172.7 cm [facility] Body weight 2022-07-26 17:49:00 96.163 kg [facility] BMI 2022-07-26 17:49:00 32.23 kg/m2 [facility] Systolic blood 2022-07-26 23:31:00 102 mm[Hg] Univer sity of pressure [facility] Diastolic blood 2022-07-26 23:31:00 59 mm[Hg] Unive rsity of [facility] Heart rate 2022-07-26 23:31:00 85 /min [facility] Body temperature 2022-07-26 23:31:00 36.56 Melvi [facility] Respiratory rate 2022-07-26 23:24:00 19 /min [facility] Oxygen saturation in 2022-07-26 23:24:00 93 /min [facility] Arterial blood by [facility] Pulse oximetry Branch Body height 2022-07-26 17:49:00 172.7 cm [facility] Body weight 2022-07-26 17:49:00 96.163 kg [facility] BMI 2022-07-26 17:49:00 32.23 kg/m2 [facility] Procedures Procedure Date / Time Performing Clinician Source Performed POCT GLUCOSE (AUTOMATED) 2022-07-27 16:45:00 Berna Alcantar [facility] POCT GLUCOSE (AUTOMATED) 2022-07-27 16:45:00 Berna Alcantar [facility] MAGNESIUM 2022-07-27 10:46:00 Flora Fox [facility] BASIC METABOLIC PANEL (NA, 2022-07-27 10:46:00 Flora Fox [facility] K, CL, CO2, GLUCOSE, BUN, Medica l Branch CREATININE, CA) N-TERMINAL PRO-BNP 2022-07-27 10:46:00 Flora Fox [facility] MAGNESIUM 2022-07-27 10:46:00 Colt Foxssica [facility] BASIC METABOLIC PANEL (NA, 2022-07-27 10:46:00 Flora Fox [facility] K, CL, CO2, GLUCOSE, BUN, Medica l Branch CREATININE, CA) N-TERMINAL PRO-BNP 2022-07-27 10:46:00 [facility] PO[facility]SE (AUTOMATED) 2022-07-27 10:38:00 Berna Alcantar Uni versity of [facility] POCT GLUCOSE (AUTOMATED) 2022-07-27 10:38:00 KhKeo fernandezm Uni versity of [facility] POCT GLUCOSE (AUTOMATED) 2022-07-27 04:51:00 KhKeo fernandezm Uni versity of [facility] POCT GLUCOSE (AUTOMATED) 2022-07-27 04:51:00 Keo Alcantarm Uni versity of [facility] POCT GLUCOSE (AUTOMATED) 2022-07-27 01:10:00 Keo Alcantarm Uni versity of [facility] POCT GLUCOSE (AUTOMATED) 2022-07-27 01:10:00 Keo Alcantarm Uni versity of [facility] POCT GLUCOSE (AUTOMATED) 2022-07-26 23:37:00 Berna Alcantar Uni versity of [facility] POCT GLUCOSE (AUTOMATED) 2022-07-26 23:37:00 Berna Alcantar Uni versity of [facility] ACTIVATED PARTIAL THRMPLAS 2022-07-26 23:10:00 Evelio Soni [facility] of [facility] ACTIVATED PARTIAL THRMPLAS 2022-07-26 23:10:00 [facility] CARDIAC CATHETERIZATION 2022-07-26 21:16:04 [facility] CARDIAC CATHETERIZATION 2022-07-26 21:16:04 [facility] ersity of [facility] CARDIAC CATHETERIZATION 2022-07-26 21:16:04 [facility] of [place] [facility] CARDIAC CATHETERIZATION 2022-07-26 21:16:04 [facility] CARDIAC CATHETERIZATION 2022-07-26 21:16:04 [facility] ersity of [facility] CARDIAC CATHETERIZATION 2022-07-26 21:16:04 [facility] CARDIAC CATHETERIZATION 2022-07-26 21:16:04 [facility] ersity of [facility] CARDIAC CATHETERIZATION 2022-07-26 21:16:04 [facility] ersity of [facility] CATH PROCEDURE LOG 2022-07-26 20:55:04 Sherman [facility] y of [facility] CATH PROCEDURE LOG 2022-07-26 20:55:04 Sherman [facility] of [facility] POCT GLUCOSE (AUTOMATED) 2022-07-26 16:20:00 Berna Alcantar Uni versity of [facility] POCT GLUCOSE (AUTOMATED) 2022-07-26 16:20:00 Berna Alcantar Uni versity of [facility] POCT GLUCOSE (AUTOMATED) 2022-07-26 12:30:00 Berna Alcantar Uni versity of [facility] POCT GLUCOSE (AUTOMATED) 2022-07-26 12:30:00 Berna Alcantar Uni versity of [facility] POCT GLUCOSE (AUTOMATED) 2022-07-26 11:08:00 Berna Alcantar Uni versity of [facility] POCT GLUCOSE (AUTOMATED) 2022-07-26 11:08:00 Berna Alcantar Uni versity of [facility] POCT GLUCOSE (AUTOMATED) 2022-07-26 08:52:00 Berna Alcantar Uni versity of [facility] POCT GLUCOSE (AUTOMATED) 2022-07-26 08:52:00 Berna Alcantar Uni versity of [facility] MAGNESIUM 2022-07-26 05:35:00 [place], [facility] BASIC METABOLIC PANEL (NA, 2022-07-26 05:35:00 Tobias [facility] K, CL, CO2, GLUCOSE, BUN, Medica l Branch CREATININE, CA) ACTIVATED PARTIAL THRMPLAS 2022-07-26 05:35:00 Evelio Soni [facility] [place] EXTRA TUBE LAV 2022-07-26 05:35:00 Sherman [facility] MAGNESIUM 2022-07-26 05:35:00 Tobias [facility] BASIC METABOLIC PANEL (NA, 2022-07-26 05:35:00 [facility], CO2, GLUCOSE, BUN, Medica l Branch CREATININE, CA) ACTIVATED PARTIAL THRMPLAS 2022-07-26 05:35:00 [facility]TRA TUBE LAV 2022-07-26 05:35:00 [facility] POCT GLUCOSE (AUTOMATED) 2022-07-26 05:20:00 [facility]SE (AUTOMATED) 2022-07-26 05:20:00 Berna Alcantar [facility] POCT GLUCOSE (AUTOMATED) 2022-07-26 01:45:00 Berna Alcantar [facility] PO[facility] GLUCOSE (AUTOMATED) 2022-07-26 01:45:00 Berna Alcantar [facility] MAGNESIUM 2022-07-25 22:15:00 Tobias [facility] BASIC METABOLIC PANEL (NA, 2022-07-25 22:15:00 Tobias [facility] K, CL, CO2, GLUCOSE, BUN, Medica l Branch CREATININE, CA) ACTIVATED PARTIAL THRMPLAS 2022-07-25 22:15:00 [facility] 2022-07-25 22:15:00 Tobias [facility] BASIC METABOLIC PANEL (NA, 2022-07-25 22:15:00 Tobias [facility] K, CL, CO2, GLUCOSE, BUN, Medica l Branch CREATININE, CA) ACTIVATED PARTIAL THRMPLAS 2022-07-25 22:15:00 Evelio Soni niversalberto [facility] [place] POCT GLUCOSE (AUTOMATED) 2022-07-25 21:22:00 Berna Alcantar Uni versity of [facility] POCT GLUCOSE (AUTOMATED) 2022-07-25 21:22:00 Berna Alcantar Uni versity of [facility] POCT GLUCOSE (AUTOMATED) 2022-07-25 20:46:00 Berna Alcantar Uni versity of [facility] POCT GLUCOSE (AUTOMATED) 2022-07-25 20:46:00 Berna Alcantar Uni versity of [facility] POCT GLUCOSE (AUTOMATED) 2022-07-25 17:09:00 Berna Alcantar Uni versity of [facility] POCT GLUCOSE (AUTOMATED) 2022-07-25 17:09:00 Berna Alcantar Uni versity [facility] HB ECG ROUTINE & RHYTHM 2022-07-25 14:53:13 Berna Collado Uni versity [facility] ACTIVATED PARTIAL THRMPLAS 2022-07-25 14:53:00 Evelio Soni niversalberto [facility] ACTIVATED PARTIAL THRMPLAS 2022-07-25 14:53:00 Evelio Soniersalberto [facility] POCT GLUCOSE (AUTOMATED) 2022-07-25 13:12:00 Berna Alcantar [facility] POCT GLUCOSE (AUTOMATED) 2022-07-25 13:12:00 Berna Alcantar [facility] MAGNESIUM 2022-07-25 11:36:00 [facility] BAS[facility]OLIC PANEL (NA, 2022-07-25 11:36:00 [facility] CL, CO2, GLUCOSE, BUN, [...] PARTIAL THRMPLAS 2022-07-25 05:15:00 Evelio Soni [facility] ACTIVATED PARTIAL THRMPLAS 2022-07-25 05:15:00 Evelio Soni [facility] POCT GLUCOSE (AUTOMATED) 2022-07-25 01:58:00 [facility]) 2022-07-25 01:58:00 Berna Alcantar [facility] MAGNESIUM 2022-07-24 22:34:00 Tobias [facility] BASIC METABOLIC PANEL (NA, 2022-07-24 22:34:00 Tobias [facility] K, CL, CO2, GLUCOSE, BUN, Medica l Branch CREATININE, CA) ACTIVATED PARTIAL THRMPLAS 2022-07-24 22:34:00 Evelio Soni [facility] MAGNESIUM 2022-07-24 22:34:00 Tobias [facility] BASIC METABOLIC PANEL (NA, 2022-07-24 22:34:00 Tobias [facility] K, CL, CO2, GLUCOSE, BUN, Medica l Branch CREATININE, CA) ACTIVATED PARTIAL THRMPLAS 2022-07-24 22:34:00 Evelio Soni [facility] POCT GLUCOSE (AUTOMATED) 2022-07-24 20:43:00 Berna Alcantar [facility] POCT GLUCOSE (AUTOMATED) 2022-07-24 20:43:00 Berna Alcantar Uni versity [facility] POCT GLUCOSE (AUTOMATED) 2022-07-24 17:11:00 Berna Alcantar [facility] POCT GLUCOSE (AUTOMATED) 2022-07-24 17:11:00 Berna Alcantar [facility] POCT GLUCOSE (AUTOMATED) 2022-07-24 14:11:00 Berna Alcantar [facility] POCT GLUCOSE (AUTOMATED) 2022-07-24 14:11:00 [facility] THRMPLAS 2022-07-24 11:37:00 Evelio Soni [facility] ACTIVATED PARTIAL THRMPLAS 2022-07-24 11:37:00 [facility] 2022-07-24 05:51:00 Evelio Soni [facility] BASIC METABOLIC PANEL (NA, 2022-07-24 05:51:00 [facility], [facility], CO2, GLUCOSE, BUN, Medica l Branch CREATININE, CA) PROTHROMBIN TIME / INR 2022-07-24 05:51:00 [facility] ACTIVATED PARTIAL THRMPLAS 2022-07-24 05:51:00 [facility]io [facility] MAGNESIUM 2022-07-24 05:51:00 Evelio Soni [facility] BASIC METABOLIC PANEL (NA, 2022-07-24 05:51:00 [facility], CL, CO2, GLUCOSE, BUN, Medica l Branch CREATININE, CA) PROTHROMBIN TIME / INR 2022-07-24 05:51:00 Evelio Soni [facility] ACTIVATED PARTIAL THRMPLAS 2022-07-24 05:51:00 Evelio Soni [facility] POCT GLUCOSE (AUTOMATED) 2022-07-24 01:53:00 Atul Stephens Rafaela [facility] POCT GLUCOSE (AUTOMATED) 2022-07-24 01:53:00 [facility]ul Stephens [facility]) 2022-07-23 21:31:00 Atul Stephens [facility] PO[facility]SE (AUTOMATED) 2022-07-23 21:31:00 Atul Stephens [facility] PO[facility]SE (AUTOMATED) 2022-07-23 17:08:00 Atul Stephens [facility] PO[facility]UCOSE (AUTOMATED) 2022-07-23 17:08:00 Atul Stephens Rafaela [facility] POCT GLUCOSE (AUTOMATED) 2022-07-23 12:46:00 Atul Stephens Rafaela [facility] POCT GLUCOSE (AUTOMATED) 2022-07-23 12:46:00 Atul Stephens Rafaela [facility] MAGNESIUM 2022-07-23 09:15:00 George Vizcaino [facility] BASIC METABOLIC PANEL (NA, 2022-07-23 09:15:00 [facility], CL, CO2, GLUCOSE, BUN, Medica l Branch CREATININE, CA) CBC WITH DIFF 2022-07-23 09:15:00 [facility]NP 2022-07-23 09:15:00 George Vizcaino [facility] MAGNESIUM 2022-07-23 09:15:00 George Vizcaino [facility] BASIC METABOLIC PANEL (NA, 2022-07-23 09:15:00 [facility] K, CL, CO2, GLUCOSE, BUN, Medica l [place] CREATININE, CA) CBC WITH DIFF 2022-07-23 09:15:00 [facility] PRO-BNP 2022-07-23 09:15:00 George Vizcaino [facility] POCT GLUCOSE (AUTOMATED) 2022-07-23 02:12:00 Atul Stephens [facility] POCT GLUCOSE (AUTOMATED) 2022-07-23 02:12:00 Atul Stephens [facility] POCT GLUCOSE (AUTOMATED) 2022-07-22 21:12:00 Atul Stephens Rafaela [facility] POCT GLUCOSE (AUTOMATED) 2022-07-22 21:12:00 Atul Stephens [facility] POCT GLUCOSE (AUTOMATED) 2022-07-22 16:30:00 Atul Stephens Rafaela [facility] POCT GLUCOSE (AUTOMATED) 2022-07-22 16:30:00 Atul Stephens [facility] POCT GLUCOSE (AUTOMATED) 2022-07-22 12:51:00 Atul Stephens Rafaela [facility] POCT GLUCOSE (AUTOMATED) 2022-07-22 12:51:00 Atul Stephens [facility] PHOSPHORUS 2022-07-22 08:19:00 Atul Stephens [facility] MAGNESIUM 2022-07-22 08:19:00 [facility] HEPATIC FUNCTION PANEL 2022-07-22 08:19:00 Atul Stephens [facility] ([id number]) (ALB,T.PRO,BILI Medical Branch T,BU/BC,ALT,AST,ALK PHOS) BASIC METABOLIC PANEL (NA, 2022-07-22 08:19:00 Atul Stephens [facility] K, CL, CO2, GLUCOSE, BUN, Medica l Branch CREATININE, CA) CBC WITH DIFF 2022-07-22 08:19:00 Atul Stephens [facility] N-TERMINAL PRO-BNP 2022-07-22 08:19:00 Atul Stephens [facility] PHOSPHORUS 2022-07-22 08:19:00 Atul Stephens [facility] MAGNESIUM 2022-07-22 08:19:00 [facility] HEPATIC FUNCTION PANEL 2022-07-22 08:19:00 Atul Stephens [facility] ([id number]) (ALB,T.PRO,BILI Medical Branch T,BU/BC,ALT,AST,ALK PHOS) BASIC METABOLIC PANEL (NA, 2022-07-22 08:19:00 Atul Stephens [facility] K, CL, CO2, GLUCOSE, BUN, Medica l Branch CREATININE, CA) CBC WITH DIFF 2022-07-22 08:19:00 Atul Stephens o f [facility] N-TERMINAL PRO-BNP 2022-07-22 08:19:00 Atul Stephens [facility] POCT GLUCOSE (AUTOMATED) 2022-07-22 01:44:00 Atul Stephens [facility] POCT GLUCOSE (AUTOMATED) 2022-07-22 01:44:00 Atul Stephens [facility] POCT GLUCOSE (AUTOMATED) 2022-07-21 21:52:00 Atul Stephens [facility] POCT GLUCOSE (AUTOMATED) 2022-07-21 21:52:00 Atul Stephens [facility] POCT GLUCOSE (AUTOMATED) 2022-07-21 16:43:00 Atul Stephens [facility] POCT GLUCOSE (AUTOMATED) 2022-07-21 16:43:00 Atul Stephens [facility] TRANSTHORACIC ECHO (TTE) 2022-07-21 15:28:00 [facility]/ CONTRAST Medical [facility] TRANSTHORACIC ECHO (TTE) 2022-07-21 15:28:00 Atul Stephens [facility] COMPLETE W/ CONTRAST Medical [facility] POCT GLUCOSE (AUTOMATED) 2022-07-21 15:00:00 Atul Stephens [facility] POCT GLUCOSE (AUTOMATED) 2022-07-21 15:00:00 Atul Stephens [facility] POCT GLUCOSE (AUTOMATED) 2022-07-21 13:04:00 Atul Stephens [facility] POCT GLUCOSE (AUTOMATED) 2022-07-21 13:04:00 Abdullah, Atul [facility] MAGNESIUM 2022-07-21 09:41:00 [facility] 2022-07-21 09:41:00 [facility] BASIC METABOLIC PANEL (NA, 2022-07-21 09:41:00 Atul Stephens [facility] K, CL, CO2, GLUCOSE, BUN, Medica l Branch CREATININE, CA) LIPID PANEL ([id number])(TOTAL 2022-07-21 09:41:00 Ana Luisa Grimm [facility] CHOLESTEROL, [facility] TRIGLYCERIDES, HDL) CBC WITH DIFF 2022-07-21 09:41:00 [facility] N-TERMINAL PRO-BNP 2022-07-21 09:41:00 Atul Stephens [facility] MAGNESIUM 2022-07-21 09:41:00 [facility]OP[facility] 2022-07-21 09:41:00 Atul Stephens [facility] BASIC METABOLIC PANEL (NA, 2022-07-21 09:41:00 Atul Stephens [facility] [place] K, CL, CO2, GLUCOSE, BUN, Medica l Branch CREATININE, CA) LIPID PANEL (06630)(TOTAL 2022-07-21 09:41:00 Ana Luisa Grimm [facility] CHOLESTEROL, Medical Branch TRIGLYCERIDES, HDL) CBC WITH DIFF 2022-07-21 09:41:00 Atul Stephens [facility] N-TERMINAL PRO-BNP 2022-07-21 09:41:00 Atul Stephens [facility] POCT GLUCOSE (AUTOMATED) 2022-07-21 04:09:00 Atul Stephens [facility] POCT GLUCOSE (AUTOMATED) 2022-07-21 04:09:00 Atul Stephens [facility] BLOOD CULTURE SCREEN 2022-07-21 01:45:00 Atul Stephens [facility] BLOOD CULTURE WORKUP 2022-07-21 01:45:00 Atul Stephens [facility] GRAM POSITIVE BLOOD 2022-07-21 01:45:00 Atul Stephens [facility] PATHOGENS DNA [facility] PROBE-AEROBIC BLOOD CULTURE SCREEN 2022-07-21 01:45:00 Atul Stephens [facility] BLOOD CULTURE WORKUP 2022-07-21 01:45:00 Atul Stephens [facility] GRAM POSITIVE BLOOD 2022-07-21 01:45:00 Atul Stephens [facility] PATHOGENS DNA [facility] PROBE-AEROBIC POCT GLUCOSE (AUTOMATED) 2022-07-21 01:26:00 Atul Stephens [facility] POCT GLUCOSE (AUTOMATED) 2022-07-21 01:26:00 Atul Stephens [facility] BLOOD CULTURE SCREEN 2022-07-20 23:43:00 Atul Stephens [facility] BLOOD CULTURE SCREEN 2022-07-20 23:43:00 Atul Stephens [facility] POCT GLUCOSE (AUTOMATED) 2022-07-20 22:24:00 Atul Stephens [facility] POCT GLUCOSE (AUTOMATED) 2022-07-20 22:24:00 Atul Stephens [facility] URINALYSIS 2022-07-20 17:41:00 Charlene Butt [facility] URINALYSIS 2022-07-20 17:41:00 Charlene Butt [facility] XR CHEST 1 VW 2022-07-20 16:16:00 Charlene Butt [facility] XR CHEST 1 VW 2022-07-20 16:16:00 Charlene Butt [facility] TROPONIN I 2022-07-20 16:10:00 Filomena [facility] COMP. METABOLIC PANEL 2022-07-20 16:10:00 Charlene Butt [facility] ([id number]) [facility] CBC WITH DIFF 2022-07-20 16:10:00 Charlene Butt [facility] GLYCOSYLATED HEMOGLOBIN 2022-07-20 16:10:00 Atul tSephens [facility] (A1C) Medical Branch PROTHROMBIN TIME / INR 2022-07-20 16:10:[address] [facility] ACTIVATED PARTIAL THRMPLAS 2022-07-20 16:10:00 Saniya Butt [facility] N-TERMINAL PRO-BNP 2022-07-20 16:10:00 Charlene Butt [facility] COVID-19 (ID NOW RAPID 2022-07-20 16:10:00 Charlene Butt [facility] TESTING) Medical Branch LAB ONLY COVID 2022-07-20 16:10:00 Charlene Butt [facility] TROPONIN I 2022-07-20 16:10:00 Charlene Butt [facility] COMP. METABOLIC PANEL 2022-07-20 16:10:00 Charlene Butt [facility] ([id number]) Medical Branch CBC WITH DIFF 2022-07-20 16:10:00 Charlene Butt [facility] GLYCOSYLATED HEMOGLOBIN 2022-07-20 16:10:00 Atul Stephens [facility] (A1C) Medical Branch PROTHROMBIN TIME / INR 2022-07-20 16:10:[address] [facility] ACTIVATED PARTIAL THRMPLAS 2022-07-20 16:10:00 Saniya Butt [facility] N-TERMINAL PRO-BNP 2022-07-20 16:10:00 Charlene Butt [facility] COVID-19 (ID NOW RAPID 2022-07-20 16:10:00 Charlene Butt [facility] TESTING) Medical Branch LAB ONLY COVID 2022-07-20 16:10:00 Charlene Butt [facility] INTERPRETATION Medical Branch HB ECG ROUTINE & RHYTHM 2022-07-20 16:05:41 Charlene Butt [facility] HB ECG ROUTINE & RHYTHM 2022-07-20 16:05:41 Charlene Butt [facility] NOTICE OF PRIVACY 2022-07-20 15:52:39 Doctor Unassigned, [facility] NOTICE OF PRIVACY 2022-07-20 15:52:39 Doctor Unassigned, [facility] HOSPITAL ADMISSION 2022-07-20 05:01:00 Doctor Unassigned, [facility] HOSPITAL ADMISSION 2022-07-20 05:01:00 Doctor Unassigned, [facility] Encounters Start End Encounter Admission Attending Care Care Encounter Source Date/Time Date/Time Type Type Clinicians Facility Department ID 2022-09-03 Outpatient 3 [id number] [place] [id number] [facility] 08:24:57 [facility] [place] 2022-09-02 Outpatient 3 [id number] [facility] REF [id number] [facility] 14:07:05 [facility] [place] 2021-12-05 [facility] [id number] [facility] 11:06:38 Meghana [address] [facility] 2022-08-15 2022-08-28 Inpatient 3 Julio ENCPL CRD [id number] [facility] 18:17:00 12:00:00 Jose [facility] [place] 2022-07-29 2022-07-29 Transition ARIANE FosterKhadar [id number] Univers 00:00:00 00:00:00 of Care La BUSH [id number] it y of ARSLANZA 4.2.7.2.[address] [id number] [facility] 403 Branch 2022-07-20 2022-07-27 Hospital Charlene Butt [id number] Univers 11:00:00 21:45:00 Encounter Atul Stephens [id number] [facility] 4.2.7.2 .686 [place] [id number] [facility] 089 Branch 2022-07-20 2022-07-27 [facility] [id number] Univers 11:00:00 21:45:00 [place] ity [facility] 2022-07-26 2022-07-26 Surgery JAMAL Cannon [id number] Univers 18:03:00 21:03:00 Orlando GORDON 350.1.13.10 it y [facility] 4.2.7.2.686 Jonathan as [phone] [place] [id number] Branch 2020-04-04 2020-04-04 [id number] Common 13:00:00 13:00:[address] [facility] ED 2020-03-22 2020-03-22 [facility] [id number] Common 15:20:00 15:20:[address] [facility] 2019-12-22 2019-12-22 [facility] [id number] Common 10:40:00 10:40:[address] [facility] 2019-12-15 2019-12-15 [facility] [id number] Common 14:00:00 14:00:[address] [facility] 2019-09-14 2019-09-14 [facility] [id number] Common 13:20:00 13:20:[address] [facility] 2019-05-11 2019-05-11 [facility] [id number] Common 13:00:00 13:00:[address] [facility] 2018-11-11 2018-11-11 [facility] [id number] Common 13:00:00 13:00:[address] [facility] 2018-10-19 2018-10-19 [facility] [id number] Common 08:30:00 08:30:[address] [facility] 2018-04-22 2018-04-22 [facility] [id number] Common 14:00:00 14:00:00 [facility] it [facility] Results Test Description Test Time Test Comments Results Result Comments Source POCT GLUCOSE (AUTOMATED) 2022-07-27 17:05:15 Test Item Value Reference Range Interpretation Comme nts POCT GLU (test code = 4059699594) 264 mg/dL 70-110 H Lab Interpretation (test code = 50214-0) [facility] [place] [facility]27 17:05:15 Test Item Value Reference Range Interpretation Comments POCT GLU (test code = 4693015319) 264 mg/dL 70-110 H Lab Interpretation (test code = Abnormal 10533-5) [place] [facility] [id number] 15:17:32 Test Item Value Reference Range Interpretation Comments NT-proBNP (test code 1090 pg/mL See_Comment H [Autom ated = 7370052966) message] The system which generated this result transmitted reference range : <=125. The reference range was not used to interpret this result as normal/abnormal . ROSLYN (test code = ROSLYN) Biotin has been reported to cause a negative bias, interpret results relative to patient's use of biotin. Lab Interpretation Abnormal (test code = 01850-8) [place] [facility] [id number] 15:17:32 Test Item Value Reference Range Interpretation Comments NT-proBNP (test code 1090 pg/mL See_Comment H [Autom ated = [id number]) message] The system which generated this result transmitted reference range : <=125. The reference range was not used to interpret this result as normal/abnormal . ROSLYN (test code = ROSLYN) Biotin has been reported to cause a negative bias, interpret results relative to patient's use of biotin. Lab Interpretation Abnormal (test code = 99422-6) [place] [facility] 11:45:45 Test Item Value Reference Range Interpretation Comments MAGNESIUM (test code = 9082287952) 1.9 mg/dL 1.7-2.4 Lab Interpretation (test code = Normal 70912-3) [facility] METABOLIC PANEL (NA, K, CL, CO2, GLUCOSE, BUN, CREATININE, CA)2022-07-27 11:45:45 Test Item Value Reference Range Interpretation Comments NA (test code = 130 mmol/L 135-145 L 0006944064) K (test code = 4.1 mmol/L 3.5-5 7385339928) CL (test code = 89 mmol/L 98-108 L 0524385445) CO2 TOTAL (test code = 37 mmol/L 23-31 H 9845566443) AGAP (test code = 2-16 8561285700) BUN (test code = 32 mg/dL 7-23 H 4090921732) GLUCOSE (test code = 180 mg/dL 70-110 H 1909270366) CREATININE (test code = 0.81 mg/dL 0.6-1.25 6576045162) CALCIUM (test code = 8.5 mg/dL 8.6-10.6 L 4794250339) eGFR (test code = mL/min/1.73m2 9888056062) ROSLYN (test code = ROSLYN) Association of [...] tests). Lab Interpretation Abnormal (test code = 61194-5) [place] [facility] 11:45:45 Test Item Value Reference Range Interpretation Comments MAGNESIUM (test code = 7884209367) 1.9 mg/dL 1.7-2.4 Lab Interpretation (test code = Normal 14532-0) [facility] METABOLIC PANEL (NA, K, CL, CO2, GLUCOSE, BUN, CREATININE, CA)2022-07-27 11:45:45 Test Item Value Reference Range Interpretation Comments NA (test code = 130 mmol/L 135-145 L 9086147733) K (test code = 4.1 mmol/L 3.5-5 5121463445) CL (test code = 89 mmol/L 98-108 L 1205288450) CO2 TOTAL (test code = 37 mmol/L 23-31 H 4942629149) AGAP (test code = 2-16 5186289619) BUN (test code = 32 mg/dL 7-23 H 9346830356) GLUCOSE (test code = 180 mg/dL 70-110 H 1671790199) CREATININE (test code = 0.81 mg/dL 0.6-1.25 9432749095) CALCIUM (test code = 8.5 mg/dL 8.6-10.6 L 7644881529) eGFR (test code = mL/min/1.73m2 1800474379) ROSLYN (test code = ROSLYN) Association of [...] tests). Lab Interpretation Abnormal (test code = 06612-2) [facility] GLUCOSE (AUTOMATED)2022-07-27 10:39:46 Test Item Value Reference Range Interpretation Comments POCT GLU (test code = 6655669805) 198 mg/dL 70-110 H Lab Interpretation (test code = Abnormal 54473-4) [facility] GLUCOSE (AUTOMATED)2022-07-27 10:39:46 Test Item Value Reference Range Interpretation Comments POCT GLU (test code = 9671436182) 198 mg/dL 70-110 H Lab Interpretation (test code = Abnormal 17316-6) [facility] GLUCOSE (AUTOMATED)2022-07-27 04:52:50 Test Item Value Reference Range Interpretation Comments POCT GLU (test code = 9650966905) 213 mg/dL 70-110 H Lab Interpretation (test code = Abnormal 76644-5) [facility] GLUCOSE (AUTOMATED)2022-07-27 04:52:50 Test Item Value Reference Range Interpretation Comments POCT GLU (test code = 9549164293) 213 mg/dL 70-110 H Lab Interpretation (test code = Abnormal 86505-2) [facility] GLUCOSE (AUTOMATED)2022-07-27 01:10:58 Test Item Value Reference Range Interpretation Comments POCT GLU (test code = 3749803487) 284 mg/dL 70-110 H Lab Interpretation (test code = Abnormal 10612-8) [facility] GLUCOSE (AUTOMATED)2022-07-27 01:10:58 Test Item Value Reference Range Interpretation Comments POCT GLU (test code = 9325513004) 284 mg/dL 70-110 H Lab Interpretation (test code = Abnormal 87660-5) [facility] GLUCOSE (AUTOMATED)2022-07-26 23:39:10 Test Item Value Reference Range Interpretation Comments POCT GLU (test code = 6958164595) 199 mg/dL 70-110 H Lab Interpretation (test code = Abnormal 84954-3) [facility] GLUCOSE (AUTOMATED)2022-07-26 23:39:10 Test Item Value Reference Range Interpretation Comments POCT GLU (test code = 1152198355) 199 mg/dL 70-110 H Lab Interpretation (test code = Abnormal 68396-3) [place] [facility] use with [facility] Infusion)2022-07-26 23:32:33 Test Item Value Reference Range Interpretation Comments APTT Patient (test code = See_Comment [ Automated message] 3173-2) The system [employer] generated this result transmitted ref erence range: 26 - 36 Seconds. The re ference range was not u sed to interpret this result as normal/abnor mal. Lab Interpretation (test Normal code = 12401-6) [facility] (for use with Heparin Infusion)2022-07-26 23:32:33 Test Item Value Reference Range Interpretation Comments APTT Patient (test code = See_Comment [ Automated message] 3173-2) The system [employer] generated this result transmitted ref erence range: 26 - 36 Seconds. The re ference range was not u sed to interpret this result as normal/abnor mal. Lab Interpretation (test Normal code = 73951-7) [facility] GLUCOSE (AUTOMATED)2022-07-26 16:22:25 Test Item Value Reference Range Interpretation Comments POCT GLU (test code = 7694270977) 167 mg/dL 70-110 H Lab Interpretation (test code = Abnormal 30061-7) [facility] GLUCOSE (AUTOMATED)2022-07-26 16:22:25 Test Item Value Reference Range Interpretation Comments POCT GLU (test code = 5050391748) 167 mg/dL 70-110 H Lab Interpretation (test code = Abnormal 23813-7) [facility] GLUCOSE (AUTOMATED)2022-07-26 12:31:04 Test Item Value Reference Range Interpretation Comments POCT GLU (test code = 5043966041) 164 mg/dL 70-110 H Lab Interpretation (test code = Abnormal 65109-0) [facility] GLUCOSE (AUTOMATED)2022-07-26 12:31:04 Test Item Value Reference Range Interpretation Comments POCT GLU (test code = 9393298969) 164 mg/dL 70-110 H Lab Interpretation (test code = Abnormal 56773-7) [facility] GLUCOSE (AUTOMATED)2022-07-26 11:09:37 Test Item Value Reference Range Interpretation Comments POCT GLU (test code = 6476056894) 184 mg/dL 70-110 H Lab Interpretation (test code = Abnormal 89220-9) [facility] GLUCOSE (AUTOMATED)2022-07-26 11:09:37 Test Item Value Reference Range Interpretation Comments POCT GLU (test code = 3982018901) 184 mg/dL 70-110 H Lab Interpretation (test code = Abnormal 82667-5) [facility] GLUCOSE (AUTOMATED)2022-07-26 08:53:59 Test Item Value Reference Range Interpretation Comments POCT GLU (test code = 1918201433) 200 mg/dL 70-110 H Lab Interpretation (test code = Abnormal 29455-5) [facility] GLUCOSE (AUTOMATED)2022-07-26 08:53:59 Test Item Value Reference Range Interpretation Comments POCT GLU (test code = 9901171399) 200 mg/dL 70-110 H Lab Interpretation (test code = Abnormal 74962-7) [facility] GLUCOSE (AUTOMATED)2022-07-26 05:20:56 Test Item Value Reference Range Interpretation Comments POCT GLU (test code = 4958981302) 197 mg/dL 70-110 H Lab Interpretation (test code = Abnormal 66180-9) [facility] GLUCOSE (AUTOMATED)2022-07-26 05:20:56 Test Item Value Reference Range Interpretation Comments POCT GLU (test code = 2411494732) 197 mg/dL 70-110 H Lab Interpretation (test code = Abnormal 33077-4) [id number] 03:01:42 Test Item Value Reference Range Interpretation Comments Blood Culture-Aerobic No organisms No growth Previo us (test code = 56377-0) isolated prelim inary verified result was Culture [...] Culture-Anaerobic isolated preliminar y (test code = 78677-5) verifi ed result was Culture In Progress [...] CDT Lab Interpretation Normal (test code = 68741-2) [facility] CULTURE [id number] 03:01:42 Test Item Value Reference Range Interpretation Comments Blood Culture-Aerobic No organisms No growth Previo us (test code = 57754-0) isolated prelim inary verified result was Culture [...] Culture-Anaerobic isolated preliminar y (test code = 42842-2) verifi ed result was Culture In Progress [...] CDT Lab Interpretation Normal (test code = 90595-4) [facility]-26 01:46:28 Test Item Value Reference Range Interpretation Comments POCT GLU (test code = 9418627117) 142 mg/dL 70-110 H Lab Interpretation (test code = Abnormal 14313-8) [facility] GLUCOSE (AUTOMATED)2022-07-26 01:46:28 Test Item Value Reference Range Interpretation Comments POCT GLU (test code = 0325958798) 142 mg/dL 70-110 H Lab Interpretation (test code = Abnormal 31744-8) [facility] GLUCOSE (AUTOMATED)2022-07-25 21:23:27 Test Item Value Reference Range Interpretation Comments POCT GLU (test code = 5240634384) 159 mg/dL 70-110 H Lab Interpretation (test code = Abnormal 06020-5) [facility] GLUCOSE (AUTOMATED)2022-07-25 21:23:27 Test Item Value Reference Range Interpretation Comments POCT GLU (test code = 1490876466) 159 mg/dL 70-110 H Lab Interpretation (test code = Abnormal 19910-8) [facility] GLUCOSE (AUTOMATED)2022-07-25 20:47:32 Test Item Value Reference Range Interpretation Comments POCT GLU (test code = 9295975070) 151 mg/dL 70-110 H Lab Interpretation (test code = Abnormal 07797-1) [facility] GLUCOSE (AUTOMATED)2022-07-25 20:47:32 Test Item Value Reference Range Interpretation Comments POCT GLU (test code = 1236511382) 151 mg/dL 70-110 H Lab Interpretation (test code = Abnormal 69911-2) [facility] GLUCOSE (AUTOMATED)2022-07-25 17:16:01 Test Item Value Reference Range Interpretation Comments POCT GLU (test code = 6333863674) 389 mg/dL 70-110 H Lab Interpretation (test code = Abnormal 13369-5) [facility] GLUCOSE (AUTOMATED)2022-07-25 17:16:01 Test Item Value Reference Range Interpretation Comments POCT GLU (test code = 9710550359) 389 mg/dL 70-110 H Lab Interpretation (test code = Abnormal 22091-6) [facility]-25 15:08:51 Test Item Value Reference Range Interpretation Comments APTT Patient (test code = See_Comment [ Automated message] 3173-2) The system [employer] generated this result transmitted ref erence range: 26 - 36 Seconds. The re ference range was not u sed to interpret this result as normal/abnor mal. Lab Interpretation (test Normal code = 90718-8) [facility]2022-07-25 15:08:51 Test Item Value Reference Range Interpretation Comments APTT Patient (test code = See_Comment [ Automated message] 3173-2) The system [employer] generated this result transmitted ref erence range: 26 - 36 Seconds. The re ference range was not u sed to interpret this result as normal/abnor mal. Lab Interpretation (test Normal code = 30134-6) [facility] GLUCOSE (AUTOMATED)2022-07-25 13:22:34 Test Item Value Reference Range Interpretation Comments POCT GLU (test code = 1331886772) 168 mg/dL 70-110 H Lab Interpretation (test code = Abnormal 88491-7) [facility] GLUCOSE (AUTOMATED)2022-07-25 13:22:34 Test Item Value Reference Range Interpretation Comments POCT GLU (test code = 2203018503) 168 mg/dL 70-110 H Lab Interpretation (test code = Abnormal 46979-7) [facility] GLUCOSE (AUTOMATED)2022-07-25 01:59:34 Test Item Value Reference Range Interpretation Comments POCT GLU (test code = 6950898920) 202 mg/dL 70-110 H Lab Interpretation (test code = Abnormal 85460-8) [facility] GLUCOSE (AUTOMATED)2022-07-25 01:59:34 Test Item Value Reference Range Interpretation Comments POCT GLU (test code = 7402117402) 202 mg/dL 70-110 H Lab Interpretation (test code = Abnormal 58327-8) [facility] METABOLIC PANEL (NA, K, CL, CO2, GLUCOSE, BUN, CREATININE, CA)2022-07-24 23:06:12 Test Item Value Reference Range Interpretation Comments NA (test code = 135 mmol/L 135-145 3006828234) K (test code = 4.1 mmol/L 3.5-5 2526610833) CL (test code = 95 mmol/L 98-108 L 8867113082) CO2 TOTAL (test code = 39 mmol/L 23-31 H 3290796509) AGAP (test code = 2-16 L 8605606593) BUN (test code = 16 mg/dL 7-23 6461345866) GLUCOSE (test code = 140 mg/dL 70-110 H 8580081769) CREATININE (test code = 0.59 mg/dL 0.6-1.25 L 7094304972) CALCIUM (test code = 8.4 mg/dL 8.6-10.6 L 0145736336) eGFR (test code = mL/min/1.73m2 6243655725) ROSLYN (test code = ROSLYN) Association of [...] tests). Lab Interpretation Abnormal (test code = 91786-9) [facility] Test Item Value Reference Range Interpretation Comments MAGNESIUM (test code = 2006707836) 2.1 mg/dL 1.7-2.4 Lab Interpretation (test code = Normal 65485-6) [facility] METABOLIC PANEL (NA, K, CL, CO2, GLUCOSE, BUN, CREATININE, CA)2022-07-24 23:06:12 Test Item Value Reference Range Interpretation Comments NA (test code = 135 mmol/L 135-145 0374234623) K (test code = 4.1 mmol/L 3.5-5 8375459883) CL (test code = 95 mmol/L 98-108 L 1715494174) CO2 TOTAL (test code = 39 mmol/L 23-31 H 1157295959) AGAP (test code = 2-16 L 9687612745) BUN (test code = 16 mg/dL 7-23 0026131499) GLUCOSE (test code = 140 mg/dL 70-110 H 8462618809) CREATININE (test code = 0.59 mg/dL 0.6-1.25 L 5087421224) CALCIUM (test code = 8.4 mg/dL 8.6-10.6 L 1751407677) eGFR (test code = mL/min/1.73m2 2129323574) ROSLYN (test code = ROSLYN) Association of [...] tests). Lab Interpretation Abnormal (test code = 78352-0) [facility] Test Item Value Reference Range Interpretation Comments MAGNESIUM (test code = 8080703685) 2.1 mg/dL 1.7-2.4 Lab Interpretation (test code = Normal 07074-1) [facility] (for use with Heparin Infusion)2022-07-24 23:00:29 Test Item Value Reference Range Interpretation Comments APTT Patient (test code See_Comment H [Au tomated message] = 3173-2) The system [employer] generated this result transmitted ref erence range: 26 - 36 Seconds. The reference range was not used to int erpret this result as normal/abnormal . Lab Interpretation (test Abnormal code = 25233-1) [facility] (for use with Heparin Infusion)2022-07-24 23:00:29 Test Item Value Reference Range Interpretation Comments APTT Patient (test code See_Comment H [Au tomated message] = 3173-2) The system [employer] generated this result transmitted ref erence range: 26 - 36 Seconds. The reference range was not used to int erpret this result as normal/abnormal . Lab Interpretation (test Abnormal code = 08330-8) [facility] GLUCOSE (AUTOMATED)2022-07-24 20:44:06 Test Item Value Reference Range Interpretation Comments POCT GLU (test code = 9016541903) 161 mg/dL 70-110 H Lab Interpretation (test code = Abnormal 16890-6) [facility] GLUCOSE (AUTOMATED)2022-07-24 20:44:06 Test Item Value Reference Range Interpretation Comments POCT GLU (test code = 8364361746) 161 mg/dL 70-110 H Lab Interpretation (test code = Abnormal 71904-8) [facility] GLUCOSE (AUTOMATED)2022-07-24 17:17:45 Test Item Value Reference Range Interpretation Comments POCT GLU (test code = 6573878791) 257 mg/dL 70-110 H Lab Interpretation (test code = Abnormal 86494-9) [facility] GLUCOSE (AUTOMATED)2022-07-24 17:17:45 Test Item Value Reference Range Interpretation Comments POCT GLU (test code = 6316937157) 257 mg/dL 70-110 H Lab Interpretation (test code = Abnormal 81277-7) [facility] GLUCOSE (AUTOMATED)2022-07-24 14:12:13 Test Item Value Reference Range Interpretation Comments POCT GLU (test code = 0222237276) 201 mg/dL 70-110 H Lab Interpretation (test code = Abnormal 76927-6) [facility] GLUCOSE (AUTOMATED)2022-07-24 14:12:13 Test Item Value Reference Range Interpretation Comments POCT GLU (test code = 8509001299) 201 mg/dL 70-110 H Lab Interpretation (test code = Abnormal 35120-0) [facility] GLUCOSE (AUTOMATED)2022-07-24 01:57:51 Test Item Value Reference Range Interpretation Comments POCT GLU (test code = 9205195304) 214 mg/dL 70-110 H Lab Interpretation (test code = Abnormal 12799-1) [facility] GLUCOSE (AUTOMATED)2022-07-24 01:57:51 Test Item Value Reference Range Interpretation Comments POCT GLU (test code = 7335778649) 214 mg/dL 70-110 H Lab Interpretation (test code = Abnormal 81697-9) [facility] GLUCOSE (AUTOMATED)2022-07-23 21:55:56 Test Item Value Reference Range Interpretation Comments POCT GLU (test code = 7935278095) 184 mg/dL 70-110 H Lab Interpretation (test code = Abnormal 55629-0) [facility] GLUCOSE (AUTOMATED)2022-07-23 21:55:56 Test Item Value Reference Range Interpretation Comments POCT GLU (test code = 2173666929) 184 mg/dL 70-110 H Lab Interpretation (test code = Abnormal 99222-3) [facility] GLUCOSE (AUTOMATED)2022-07-23 17:27:48 Test Item Value Reference Range Interpretation Comments POCT GLU (test code = 1546068428) 259 mg/dL 70-110 H Lab Interpretation (test code = Abnormal 36528-9) [facility] GLUCOSE (AUTOMATED)2022-07-23 17:27:48 Test Item Value Reference Range Interpretation Comments POCT GLU (test code = 9474792340) 259 mg/dL 70-110 H Lab Interpretation (test code = Abnormal 54717-8) [facility] GLUCOSE (AUTOMATED)2022-07-23 13:05:59 Test Item Value Reference Range Interpretation Comments POCT GLU (test code = 4496531707) 154 mg/dL 70-110 H Lab Interpretation (test code = Abnormal 86725-9) [facility] GLUCOSE (AUTOMATED)2022-07-23 13:05:59 Test Item Value Reference Range Interpretation Comments POCT GLU (test code = 2097089141) 154 mg/dL 70-110 H Lab Interpretation (test code = Abnormal 26018-4) [facility] GLUCOSE (AUTOMATED)2022-07-23 09:58:20 Test Item Value Reference Range Interpretation Comments POCT GLU (test code = 3884182133) 177 mg/dL 70-110 H Lab Interpretation (test code = Abnormal 84584-0) [facility] GLUCOSE (AUTOMATED)2022-07-23 09:58:20 Test Item Value Reference Range Interpretation Comments POCT GLU (test code = 5992957055) 177 mg/dL 70-110 H Lab Interpretation (test code = Abnormal 62289-2) [facility] GLUCOSE (AUTOMATED)2022-07-22 21:30:57 Test Item Value Reference Range Interpretation Comments POCT GLU (test code = 3853386534) 194 mg/dL 70-110 H Lab Interpretation (test code = Abnormal 19121-8) [facility] GLUCOSE (AUTOMATED)2022-07-22 21:30:57 Test Item Value Reference Range Interpretation Comments POCT GLU (test code = 0763969644) 194 mg/dL 70-110 H Lab Interpretation (test code = Abnormal 19952-2) [facility] GLUCOSE (AUTOMATED)2022-07-22 16:52:50 Test Item Value Reference Range Interpretation Comments POCT GLU (test code = 4886620921) 197 mg/dL 70-110 H Lab Interpretation (test code = Abnormal 69771-1) [facility] GLUCOSE (AUTOMATED)2022-07-22 16:52:50 Test Item Value Reference Range Interpretation Comments POCT GLU (test code = 9766604436) 197 mg/dL 70-110 H Lab Interpretation (test code = Abnormal 71649-5) [facility] GLUCOSE (AUTOMATED)2022-07-22 13:22:34 Test Item Value Reference Range Interpretation Comments POCT GLU (test code = 7450597659) 150 mg/dL 70-110 H Lab Interpretation (test code = Abnormal 68795-1) [facility] GLUCOSE (AUTOMATED)2022-07-22 13:22:34 Test Item Value Reference Range Interpretation Comments POCT GLU (test code = 1843512496) 150 mg/dL 70-110 H Lab Interpretation (test code = Abnormal 63009-5) [id number] 09:38:27 Test Item Value Reference Range Interpretation Comments NT-proBNP (test code 2160 pg/mL See_Comment H [Autom ated = 2871375392) message] The system which generated this result transmitted reference range : <=125. The reference range was not used to interpret this result as normal/abnormal . ROSLYN (test code = ROSLYN) Biotin has been reported to cause a negative bias, interpret results relative to patient's use of biotin. Lab Interpretation Abnormal (test code = 48353-9) [id number] 09:38:27 Test Item Value Reference Range Interpretation Comments NT-proBNP (test code 2160 pg/mL See_Comment H [Autom ated = 2134462715) message] The system which generated this result transmitted reference range : <=125. The reference range was not used to interpret this result as normal/abnormal . ROSLYN (test code = ROSLYN) Biotin has been reported to cause a negative bias, interpret results relative to patient's use of biotin. Lab Interpretation Abnormal (test code = 77476-4) [facility] Test Item Value Reference Range Interpretation Comments MAGNESIUM (test code = 5628535992) 1.8 mg/dL 1.7-2.4 Lab Interpretation (test code = Normal 14157-4) [facility] 09:31:29 Test Item Value Reference Range Interpretation Comments MAGNESIUM (test code = 8599736600) 1.8 mg/dL 1.7-2.4 Lab Interpretation (test code = Normal 14273-9) [facility] METABOLIC PANEL (NA, K, CL, CO2, GLUCOSE, BUN, CREATININE, CA)2022-07-22 09:31:09 Test Item Value Reference Range Interpretation Comments NA (test code = 137 mmol/L 135-145 2731611077) K (test code = 4.0 mmol/L 3.5-5 7220384792) CL (test code = 98 mmol/L 98-108 5082817837) CO2 TOTAL (test code = 34 mmol/L 23-31 H 7758946101) AGAP (test code = 2-16 6517717071) BUN (test code = 16 mg/dL 7-23 6584829365) GLUCOSE (test code = 177 mg/dL 70-110 H 3694999548) CREATININE (test code = 0.66 mg/dL 0.6-1.25 5866974819) CALCIUM (test code = 8.2 mg/dL 8.6-10.6 L 9841345982) eGFR (test code = mL/min/1.73m2 9037271878) ROSLYN (test code = ROSLYN) Association of [...] tests). Lab Interpretation Abnormal (test code = 36435-7) [facility] METABOLIC PANEL (NA, K, CL, CO2, GLUCOSE, BUN, CREATININE, CA)2022-07-22 09:31:09 Test Item Value Reference Range Interpretation Comments NA (test code = 137 mmol/L 135-145 0737778690) K (test code = 4.0 mmol/L 3.5-5 3379974300) CL (test code = 98 mmol/L 98-108 9553585084) CO2 TOTAL (test code = 34 mmol/L 23-31 H 1999025254) AGAP (test code = 2-16 5367627316) BUN (test code = 16 mg/dL 7-23 2658324646) GLUCOSE (test code = 177 mg/dL 70-110 H 5837814284) CREATININE (test code = 0.66 mg/dL 0.6-1.25 6269998619) CALCIUM (test code = 8.2 mg/dL 8.6-10.6 L 4964290590) eGFR (test code = mL/min/1.73m2 8120663398) ROSLYN (test code = ROSLYN) Association of [...] tests). Lab Interpretation Abnormal (test code = 06839-7) [facility]24[facility] (ALB,T.PRO,BILI T,BU/BC,ALT,AST,ALK PHOS)2022-07-22 09:30:44 Test Item Value Reference Range Interpretation Comments TOTAL BILI (test code = 0271566247) 1.2 mg/dL 0.1-1.1 H BILI UNCON (test code = 4944098986) 0.9 mg/dL 0.1-1.1 BILI CONJ (test code = 0638548812) 0.0 mg/dL 0-0.3 T PROTEIN (test code = 4740908741) 6.5 g/dL 6.3-8.2 ALBUMIN (test code = 2400391340) 3.7 g/dL 3.5-5 ALK PHOS (test code = 8572011908) 67 U/L 34-122 ALTv (test code = 1742-6) 33 U/L 5-50 AST(SGOT) (test code = 3629382308) 30 U/L 13-40 Lab Interpretation (test code = Abnormal 83179-8) [facility] 09:30:44 Test Item Value Reference Range Interpretation Comments PHOSPHORUS (test code = 5238767859) 3.6 mg/dL 2.5-5 Lab Interpretation (test code = Normal 04954-3) [facility]76537[facility] (ALB,T.PRO,BILI T,BU/BC,ALT,AST,ALK PHOS)2022-07-22 09:30:44 Test Item Value Reference Range Interpretation Comments TOTAL BILI (test code = 1804343899) 1.2 mg/dL 0.1-1.1 H BILI UNCON (test code = 3881170975) 0.9 mg/dL 0.1-1.1 BILI CONJ (test code = 0334219752) 0.0 mg/dL 0-0.3 T PROTEIN (test code = 8182909786) 6.5 g/dL 6.3-8.2 ALBUMIN (test code = 0932630125) 3.7 g/dL 3.5-5 ALK PHOS (test code = 9033753813) 67 U/L 34-122 ALTv (test code = 1742-6) 33 U/L 5-50 AST(SGOT) (test code = 7674486462) 30 U/L 13-40 Lab Interpretation (test code = Abnormal 46688-0) [facility] 09:30:44 Test Item Value Reference Range Interpretation Comments PHOSPHORUS (test code = 3128912176) 3.6 mg/dL 2.5-5 Lab Interpretation (test code = Normal 77445-8) [facility] WITH [id number] 09:23:08 Test Item Value Reference Range Interpretation Comments WBC (test code = See_Comment H [Automated 7474-2) message] The system which generated this result transmit artem reference range : 4.20 - 10.70 10*3/?L. The reference range was not used to interpret this result as normal/abnormal . RBC (test code = See_Comment [Automated 470-8) message] The system which generated this result [...] RDW-SD (test code = 46.6 fL 38.5-51.6 51502-8) RDW-CV (test code = 13.5 % 12.1-15.4 788-0) PLT (test code = See_Comment L [Automated 777-3) message] The system which generated this result transmit artem reference range : 150 - 328 10*3/ ?L. The reference range was not u sed to interpret th is result as normal/abnormal . MPV (test code = 12.7 fL 9.8-13 81973-6) NRBC/100 WBC (test See_Comment [Automat ed code = 6439017310) message] The system which generated this result transmit artem reference range : 0.0 - 10.0 /100 WBCs. The reference range was not used to interpret this result as normal/abnormal . NRBC x10^3 (test code See_Comment [Auto mated = 7091569751) message] The system which generated this result transmit artem reference range : 10*3/?L. The reference range was not used to interpret this result as normal/abnormal . GRAN MAT (NEUT) % 71.3 % (test code = 770-8) IMM GRAN % (test code 0.40 % = 6728142185) LYMPH % (test code = 17.4 % 736-9) MONO % (test code = 9.8 % 5905-5) EOS % (test code = 0.8 % 713-8) BASO % (test code = 0.3 % 706-2) GRAN MAT x10^3(ANC) 10.18 10*3/uL 1.99-6.95 H (test code = 7619953501) IMM GRAN x10^3 (test 0.06 10*3/uL 0-0.06 code = 6518572160) LYMPH x10^3 (test code 2.49 10*3/uL 1.09-3.23 = 731-0) MONO x10^3 (test code 1.40 10*3/uL 0.36-1.02 H = 742-7) EOS x10^3 (test code = 0.11 10*3/uL 0.06-0.53 711-2) BASO x10^3 (test code 0.04 10*3/uL 0.01-0.09 = 704-7) Lab Interpretation Abnormal (test code = 16784-2) [facility] WITH [id number] 09:23:08 Test Item Value Reference Range Interpretation [...] RDW-SD (test code = 46.6 fL 38.5-51.6 04940-1) RDW-CV (test code = 13.5 % 12.1-15.4 788-0) PLT (test code = See_Comment L [Automated 777-3) message] The system which generated this result transmit artem reference range : 150 - 328 10*3/ ?L. The reference range was not u sed to interpret th is result as normal/abnormal . MPV (test code = 12.7 fL 9.8-13 13958-6) NRBC/100 WBC (test See_Comment [Automat ed code = 1253102072) message] The system which generated this result transmit artem reference range : 0.0 - 10.0 /100 WBCs. The reference range was not used to interpret this result as normal/abnormal . NRBC x10^3 (test code See_Comment [Auto mated = 5583353456) message] The system which generated this result transmit artem reference range : 10*3/?L. The reference range was not used to interpret this result as normal/abnormal . GRAN MAT (NEUT) % 71.3 % (test code = 770-8) IMM GRAN % (test code 0.40 % = 2260512797) LYMPH % (test code = 17.4 % 736-9) MONO % (test code = 9.8 % 5905-5) EOS % (test code = 0.8 % 713-8) BASO % (test code = 0.3 % 706-2) GRAN MAT x10^3(ANC) 10.18 10*3/uL 1.99-6.95 H (test code = 0374439282) IMM GRAN x10^3 (test 0.06 10*3/uL 0-0.06 code = 4500854038) LYMPH x10^3 (test code 2.49 10*3/uL 1.09-3.23 = 731-0) MONO x10^3 (test code 1.40 10*3/uL 0.36-1.02 H = 742-7) EOS x10^3 (test code = 0.11 10*3/uL 0.06-0.53 711-2) BASO x10^3 (test code 0.04 10*3/uL 0.01-0.09 = 704-7) Lab Interpretation Abnormal (test code = 80673-8) [facility] GLUCOSE (AUTOMATED)2022-07-22 01:47:13 Test Item Value Reference Range Interpretation Comments POCT GLU (test code = 0530528009) 220 mg/dL 70-110 H Lab Interpretation (test code = Abnormal 85239-1) [facility] GLUCOSE (AUTOMATED)2022-07-22 01:47:13 Test Item Value Reference Range Interpretation Comments POCT GLU (test code = 0272167474) 220 mg/dL 70-110 H Lab Interpretation (test code = Abnormal 83567-2) [facility]90[facility]TOTAL CHOLESTEROL, TRIGLYCERIDES, HDL)2022-07-22 00:19:28 Test Item Value Reference Range Interpretation Comments CHOL (test code = 121 mg/dL 120-200 9012730940) HDL (test code = 28 mg/dL See_Comment L [Automated message] 0600516029) The system [employer] generated this result transmit artem reference range : >=40. The refer ence range was not u sed to interpret th is result as normal/abnormal . HDLC RATIO (test code = See_Comment [Au tomated message] 9111026249) The system [employer] generated this result transmit artem reference range : <=5.0. The refe rence range was not u sed to interpret th is result as normal/abnormal . TRIG (test code = 119 mg/dL 30-170 4274273144) LDL CHOL (test code = 69 mg/dL See_Comment [Auto mated message] 85978-9) The system [employer] generated this result transmit artem reference range : <=160. The refe rence range was not u sed to interpret th is result as normal/abnormal . VLDL (test code = 24 mg/dL 5-60 3865906503) Lab Interpretation (test Abnormal code = 38308-8) [facility] (49469)(TOTAL CHOLESTEROL, TRIGLYCERIDES, HDL)2022-07-22 00:19:28 Test Item Value Reference Range Interpretation Comments CHOL (test code = 121 mg/dL 120-200 5538159650) HDL (test code = 28 mg/dL See_Comment L [Automated message] 4993875810) The system [employer] generated this result transmit artem reference range : >=40. The refer ence range was not u sed to interpret th is result as normal/abnormal . HDLC RATIO (test code = See_Comment [Au tomated message] 7622150436) The system [employer] generated this result transmit artem reference range : <=5.0. The refe rence range was not u sed to interpret th is result as normal/abnormal . TRIG (test code = 119 mg/dL 30-170 6163416931) LDL CHOL (test code = 69 mg/dL See_Comment [Auto mated message] 13333-5) The system [employer] generated this result transmit artem reference range : <=160. The refe rence range was not u sed to interpret th is result as normal/abnormal . VLDL (test code = 24 mg/dL 5-60 4583495304) Lab Interpretation (test Abnormal code = 16225-5) [facility] 00:00:55 Test Item Value Reference Range Interpretation Comments Height (test code = in 5912617287) Weight (test code = lbs 3308716302) Systolic BP (test code = mmHg 5850208024) Diastolic BP (test code mmHg = 4806447175) Heart Rate (test code = bpm 4125197237) BSA (test code = 2.04 m2 0148038720) Ao root annulus (test 3.5 cm code = 8746352935) Ao root diam (test code 3.50 cm = 2581424211) Aortic root (test code = 3.5 cm 3631880948) LVOT diameter (test code 2.19 cm = 1998555311) LVOT area (test code = 3.80 cm2 5075729709) LVIDD (test code = 5.30 cm 6695581829) Left Ventricular End 135.3 mL Diastolic Volume by Teichholz Method (test code = 4854225) IVS (test code = 1.26 cm 2729982637) Interventricular Septum 1.26 cm Diastolic Thickness by 2D (test code = 2156196) LVPWD (test code = 1.26 cm 2458667090) PW (test code = 1.26 cm 0.6-1.4 5360443126) EF(Teich) (test code = 16.40 % 1469117236) LVIDS (test code = 4.90 cm 1690092668) Left Ventricular End 113.1 mL Systolic Volume by Teichholz Method (test code = 5970046) FS (test code = 7 % 1258663582) EF - 2D (test code = 16.40 % 04232533) LA size (test code = 4.3 cm 2438156450) TR Peak Anthony (test code = 249.6 cm/s 8281248504) Triscuspid Valve mmHg Regurgitation Peak Gradient (test code = 7927100059) LAV(MOD-sp4) (test code 79.00 mL = 9977566901) E wave decelartion time 0.13 s (test code = 4740839522) MV Peak E Anthony (test code 82.3 cm/s = 8025818889) MV stenosis pressure 1/2 38.8 ms time (test code = 4807411370) MV Peak A Anthony (test code 40.8 cm/s = 2489638029) E/A ratio (test code = ratio 5983963495) MR max PG (test code = 61.50 mm[Hg] 2372288623) MR max anthony (test code = 392.20 cm/s 3260149836) Mr max anthony (test code = 392.2 m/s 4680476790) MV Prop V (test code = 33.40 cm/s 0238627134) MV E/e' septal (test 12.6 cm/s code = 8396632532) Tapse (test code = 1.17 cm 1598103140) LVOT stroke volume (test 52.20 cm3 code = 7856616252) LVOT peak anthony (test code 86.4 cm/s = 7888763306) LVOT mn grad (test code mmHg = 7276220539) AV LVOT peak gradient mmHg (test code = 7692803332) LVOT peak VTI (test code 13.9 cm = 0385409136) LV V1 mean (test code = 57.20 cm/s 6021832303) Aortic valve mean 94.3 cm/s velocity (test code = 4937604497) Ao peak anthony (test code = 125.8 cm/s 3221380412) Ao VTI (test code = 22.6 cm 3184652319) AV area by cont VTI 2.3 cm2 (test code = 3831950472) AV area peak anthony (test 2.6 cm2 code = 7406476309) Ao max PG (test code = 6.30 mm[Hg] 1657669617) AV peak gradient (test mmHg code = 1501021521) AV valve area (test code 2.31 cm2 = 9701683399) AV mean gradient (test mmHg code = 9810511305) Radiology Study observation (narrative) (test code = 82066-5) ROSLYN (test code = ROSLYN) ?Left?Ventricle: Left [...] Lumason ultrasound enhancing agent used. [facility] 00:00:55 Test Item Value Reference Range Interpretation Comments Height (test code = in 4814744795) Weight (test code = lbs 8275750004) Systolic BP (test code = mmHg 3611496584) Diastolic BP (test code mmHg = 1552622767) Heart Rate (test code = bpm 5369700276) BSA (test code = 2.04 m2 4382117873) Ao root annulus (test 3.5 cm code = 2823156686) Ao root diam (test code 3.50 cm = 3012719920) Aortic root (test code = 3.5 cm 7536675926) LVOT diameter (test code 2.19 cm = 0179772001) LVOT area (test code = 3.80 cm2 6885501027) LVIDD (test code = 5.30 cm 8024245026) Left Ventricular End 135.3 mL Diastolic Volume by Teichholz Method (test code = 9584576) IVS (test code = 1.26 cm 4981837114) Interventricular Septum 1.26 cm Diastolic Thickness by 2D (test code = 5376043) LVPWD (test code = 1.26 cm 6762356245) PW (test code = 1.26 cm 0.6-1.8 7416830886) EF(Teich) (test code = 16.40 % 7565126840) LVIDS (test code = 4.90 cm 1725876912) Left Ventricular End 113.1 mL Systolic Volume by Teichholz Method (test code = 8725996) FS (test code = 7 % 8653592619) EF - 2D (test code = 16.40 % 67732824) LA size (test code = 4.3 cm 1187616168) TR Peak Anthony (test code = 249.6 cm/s 2013909372) Triscuspid Valve mmHg Regurgitation Peak Gradient (test code = 7071876214) LAV(MOD-sp4) (test code 79.00 mL = 5192523800) E wave decelartion time 0.13 s (test code = 9971856376) MV Peak E Anthony (test code 82.3 cm/s = 4332261046) MV stenosis pressure 1/2 38.8 ms time (test code = 6103758400) MV Peak A Anthony (test code 40.8 cm/s = 7170277349) E/A ratio (test code = ratio 0566322474) MR max PG (test code = 61.50 mm[Hg] 6446602810) MR max anthony (test code = 392.20 cm/s 8902526722) Mr max anthony (test code = 392.2 m/s 3840316199) MV Prop V (test code = 33.40 cm/s 7211688050) MV E/e' septal (test 12.6 cm/s code = 1352031361) Tapse (test code = 1.17 cm 5237558109) LVOT stroke volume (test 52.20 cm3 code = 7858694283) LVOT peak anthony (test code 86.4 cm/s = 2923462754) LVOT mn grad (test code mmHg = 5623076379) AV LVOT peak gradient mmHg (test code = 6045658774) LVOT peak VTI (test code 13.9 cm = 9383070233) LV V1 mean (test code = 57.20 cm/s 3068603879) Aortic valve mean 94.3 cm/s velocity (test code = 7506632326) Ao peak anthony (test code = 125.8 cm/s 9949916367) Ao VTI (test code = 22.6 cm 2005404538) AV area by cont VTI 2.3 cm2 (test code = 9361032165) AV area peak anthony (test 2.6 cm2 code = 7739313177) Ao max PG (test code = 6.30 mm[Hg] 0476784893) AV peak gradient (test mmHg code = 0199446883) AV valve area (test code 2.31 cm2 = 5000265282) AV mean gradient (test mmHg code = 9055964477) Radiology Study observation (narrative) (test code = 56247-1) ROSLYN (test code = ROSLYN) ?Left?Ventricle: Left [...] Interpretation Comments POCT GLU (test code = 4890858509) 161 mg/dL 70-110 H Lab Interpretation (test code = Abnormal 70280-8) [facility] GLUCOSE (AUTOMATED)2022-07-21 21:54:48 Test Item Value Reference Range Interpretation Comments POCT GLU (test code = 8589419475) 161 mg/dL 70-110 H Lab Interpretation (test code = Abnormal 92201-0) [facility] GLUCOSE (AUTOMATED)2022-07-21 16:47:05 Test Item Value Reference Range Interpretation Comments POCT GLU (test code = 7609246669) 132 mg/dL 70-110 H Lab Interpretation (test code = Abnormal 12393-4) [facility] GLUCOSE (AUTOMATED)2022-07-21 16:47:05 Test Item Value Reference Range Interpretation Comments POCT GLU (test code = 6533263634) 132 mg/dL 70-110 H Lab Interpretation (test code = Abnormal 18418-1) [facility] GLUCOSE (AUTOMATED)2022-07-21 15:03:01 Test Item Value Reference Range Interpretation Comments POCT GLU (test code = 5167121249) 182 mg/dL 70-110 H Lab Interpretation (test code = Abnormal 33004-0) [facility] GLUCOSE (AUTOMATED)2022-07-21 15:03:01 Test Item Value Reference Range Interpretation Comments POCT GLU (test code = 9513062110) 182 mg/dL 70-110 H Lab Interpretation (test code = Abnormal 72927-0) [facility] with Ljhqmsqqhwjx5374-15-09 14:58:14 Test Item Value Reference Range Interpretation Comments WBC (test code = See_Comment H [Automated 1190-2) message] The system which generated this result transmit artem reference range : 4.20 - 10.70 10*3/?L. The reference range was not used to interpret this result as normal/abnormal . RBC (test code = See_Comment [Automated 239-8) message] The system which generated this result [...] RDW-SD (test code = 46.4 fL 38.5-51.6 69882-0) RDW-CV (test code = 13.5 % 12.1-15.4 788-0) PLT (test code = See_Comment [Automated 777-3) message] The system which generated this result transmit artem reference range : 150 - 328 10*3/ ?L. The reference range was not u sed to interpret th is result as normal/abnormal . MPV (test code = 13.0 fL 9.8-13 22425-4) NRBC/100 WBC (test See_Comment [Automat ed code = 6701502127) message] The system which generated this result transmit artem reference range : 0.0 - 10.0 /100 WBCs. The reference range was not used to interpret this result as normal/abnormal . NRBC x10^3 (test code See_Comment [Auto mated = 4108421265) message] The system which generated this result transmit artem reference range : 10*3/?L. The reference range was not used to interpret this result as normal/abnormal . GRAN MAT (NEUT) % 71.1 % (test code = 770-8) IMM GRAN % (test code 0.40 % = 4481537616) LYMPH % (test code = 17.6 % 736-9) MONO % (test code = 10.3 % 5905-5) EOS % (test code = 0.3 % 713-8) BASO % (test code = 0.3 % 706-2) GRAN MAT x10^3(ANC) 10.55 10*3/uL 1.99-6.95 H (test code = 3509469193) IMM GRAN x10^3 (test 0.06 10*3/uL 0-0.06 code = 7667021764) LYMPH x10^3 (test code 2.61 10*3/uL 1.09-3.23 = 731-0) MONO x10^3 (test code 1.53 10*3/uL 0.36-1.02 H = 742-7) EOS x10^3 (test code = 0.04 10*3/uL 0.06-0.53 L 711-2) BASO x10^3 (test code 0.04 10*3/uL 0.01-0.09 = 704-7) BANDS (test code = Increased A 1677127405) REACT LYMPHS (test Rare code = 0341042933) GIANT PLATELETS (test Present See_Comment A [Auto mated code = 5908-9) message] The system which generated this result transmit artem reference range : (none). The reference range was not used to interpret this result as normal/abnormal . Lab Interpretation Abnormal (test code = 65185-8) [facility] with Lzxskczksazj1856-76-11 14:58:14 Test Item Value Reference Range Interpretation Comments WBC (test code = See_Comment H [Automated 5190-2) message] The system which generated this result transmit artem reference range : 4.20 - 10.70 10*3/?L. The reference range was not used to interpret this result as normal/abnormal . RBC (test code = See_Comment [Automated 009-8) message] The system which generated [...] RDW-SD (test code = 46.4 fL 38.5-51.6 27551-2) RDW-CV (test code = 13.5 % 12.1-15.4 788-0) PLT (test code = See_Comment [Automated 777-3) message] The system which generated this result transmit artem reference range : 150 - 328 10*3/ ?L. The reference range was not u sed to interpret th is result as normal/abnormal . MPV (test code = 13.0 fL 9.8-13 66843-2) NRBC/100 WBC (test See_Comment [Automat ed code = 8301718249) message] The system which generated this result transmit artem reference range : 0.0 - 10.0 /100 WBCs. The reference range was not used to interpret this result as normal/abnormal . NRBC x10^3 (test code See_Comment [Auto mated = 8065074636) message] The system which generated this result transmit artem reference range : 10*3/?L. The reference range was not used to interpret this result as normal/abnormal . GRAN MAT (NEUT) % 71.1 % (test code = 770-8) IMM GRAN % (test code 0.40 % = 8260368380) LYMPH % (test code = 17.6 % 736-9) MONO % (test code = 10.3 % 5905-5) EOS % (test code = 0.3 % 713-8) BASO % (test code = 0.3 % 706-2) GRAN MAT x10^3(ANC) 10.55 10*3/uL 1.99-6.95 H (test code = 8455404925) IMM GRAN x10^3 (test 0.06 10*3/uL 0-0.06 code = 6444888481) LYMPH x10^3 (test code 2.61 10*3/uL 1.09-3.23 = 731-0) MONO x10^3 (test code 1.53 10*3/uL 0.36-1.02 H = 742-7) EOS x10^3 (test code = 0.04 10*3/uL 0.06-0.53 L 711-2) BASO x10^3 (test code 0.04 10*3/uL 0.01-0.09 = 704-7) BANDS (test code = Increased A 8971135040) REACT LYMPHS (test Rare code = 6202753279) GIANT PLATELETS (test Present See_Comment A [Auto mated code = 5908-9) message] The system which generated this result transmit artem reference range : (none). The reference range was not used to interpret this result as normal/abnormal . Lab Interpretation Abnormal (test code = 15527-4) [facility] GLUCOSE (AUTOMATED)2022-07-21 13:20:46 Test Item Value Reference Range Interpretation Comments POCT GLU (test code = 9675360566) 148 mg/dL 70-110 H Lab Interpretation (test code = Abnormal 71511-6) [facility] GLUCOSE (AUTOMATED)2022-07-21 13:20:46 Test Item Value Reference Range Interpretation Comments POCT GLU (test code = 5052962574) 148 mg/dL 70-110 H Lab Interpretation (test code = Abnormal 57756-2) [facility] Metabolic Panel (NA, K, CL, CO2, GLUCOSE, BUN, CREATININE, CA)2022-07-21 13:17:35 Test Item Value Reference Range Interpretation Comments NA (test code = 134 mmol/L 135-145 L 7334684042) K (test code = 4.1 mmol/L 3.5-5 7503445337) CL (test code = 99 mmol/L 98-108 6048838736) CO2 TOTAL (test code = 32 mmol/L 23-31 H 6107244777) AGAP (test code = 2-16 8542113067) BUN (test code = 17 mg/dL 7-23 4511578164) GLUCOSE (test code = 186 mg/dL 70-110 H 1998269039) CREATININE (test code = 0.65 mg/dL 0.6-1.25 9015047620) CALCIUM (test code = 8.2 mg/dL 8.6-10.6 L 8667990674) eGFR (test code = mL/min/1.73m2 3211786766) ROSLYN (test code = ROSLYN) Association of [...] tests). Lab Interpretation Abnormal (test code = 62495-3) [facility] Metabolic Panel (NA, K, CL, CO2, GLUCOSE, BUN, CREATININE, CA)2022-07-21 13:17:35 Test Item Value Reference Range Interpretation Comments NA (test code = 134 mmol/L 135-145 L 4390784399) K (test code = 4.1 mmol/L 3.5-5 4335932512) CL (test code = 99 mmol/L 98-108 9008266957) CO2 TOTAL (test code = 32 mmol/L 23-31 H 0329309552) AGAP (test code = 2-16 9647051121) BUN (test code = 17 mg/dL 7-23 6867862454) GLUCOSE (test code = 186 mg/dL 70-110 H 2424035306) CREATININE (test code = 0.65 mg/dL 0.6-1.25 0229155125) CALCIUM (test code = 8.2 mg/dL 8.6-10.6 L 0348770143) eGFR (test code = mL/min/1.73m2 7321898361) ROSLYN (test code = ROSLYN) Association of [...] tests). Lab Interpretation Abnormal (test code = 37738-0) [facility] [id number] 12:35:48 Test Item Value Reference Interpretation Comments Range TROPONIN I (test 0.032 ng/mL See_Comment [Automated code = 6177262401) message] The system which generated this result [...] biotin. Lab Interpretation Normal (test code = 13302-3) [facility] [id number] 12:35:48 Test Item Value Reference Interpretation Comments Range TROPONIN I (test 0.032 ng/mL See_Comment [Automated code = 5175328088) message] The system which generated this result [...] biotin. Lab Interpretation Normal (test code = 00346-7) [facility] [id number] 12:32:47 Test Item Value Reference Range Interpretation Comments NT-proBNP (test code 3830 pg/mL See_Comment H [Autom ated = 6027581499) message] The system which generated this result transmitted reference range : <=125. The reference range was not used to interpret this result as normal/abnormal . ROSLYN (test code = ROSLYN) Biotin has been reported to cause a negative bias, interpret results relative to patient's use of biotin. Lab Interpretation Abnormal (test code = 41349-2) [facility] [id number] 12:32:47 Test Item Value Reference Range Interpretation Comments NT-proBNP (test code 3830 pg/mL See_Comment H [Autom ated = 8813112190) message] The system which generated this result transmitted reference range : <=125. The reference range was not used to interpret this result as normal/abnormal . ROSLYN (test code = ROSLYN) Biotin has been reported to cause a negative bias, interpret results relative to patient's use of biotin. Lab Interpretation Abnormal (test code = 93432-9) [facility] [id number] 12:24:10 Test Item Value Reference Range Interpretation Comments MAGNESIUM (test code = 4758767682) 1.8 mg/dL 1.7-2.4 Lab Interpretation (test code = Normal 16757-4) [id number] 12:24:10 Test Item Value Reference Range Interpretation Comments MAGNESIUM (test code = 6523331797) 1.8 mg/dL 1.7-2.4 Lab Interpretation (test code = Normal 62833-3) [facility] GLUCOSE (AUTOMATED)2022-07-21 04:19:16 Test Item Value Reference Range Interpretation Comments POCT GLU (test code = 6246396874) 169 mg/dL 70-110 H Lab Interpretation (test code = Abnormal 14695-0) [facility] GLUCOSE (AUTOMATED)2022-07-21 04:19:16 Test Item Value Reference Range Interpretation Comments POCT GLU (test code = 2785467984) 169 mg/dL 70-110 H Lab Interpretation (test code = Abnormal 36994-3) [facility] GLUCOSE (AUTOMATED)2022-07-21 02:03:28 Test Item Value Reference Range Interpretation Comments POCT GLU (test code = 3703468420) 242 mg/dL 70-110 H Lab Interpretation (test code = Abnormal 20019-3) [facility] GLUCOSE (AUTOMATED)2022-07-21 02:03:28 Test Item Value Reference Range Interpretation Comments POCT GLU (test code = 9451636598) 242 mg/dL 70-110 H Lab Interpretation (test code = Abnormal 92659-5) [facility]22-07-21 00:46:20 Test Item Value Reference Range Interpretation Comments HGB A1C (test code = 11.1 % 4-5.7 H 4548-4) ROSLYN (test code = ROSLYN) Reference RangesNormal: <5.7%Prediabetes: 5.7 - 6.4%Diabetes: > 6.5% Lab Interpretation (test Abnormal code = 80691-3) [facility]2022-07-21 00:46:20 Test Item Value Reference Range Interpretation Comments HGB A1C (test code = 11.1 % 4-5.7 H 4548-4) ROSLYN (test code = ROSLYN) Reference RangesNormal: <5.7%Prediabetes: 5.7 - 6.4%Diabetes: > 6.5% Lab Interpretation (test Abnormal code = 60001-5) [facility] GLUCOSE (AUTOMATED)2022-07-20 22:27:55 Test Item Value Reference Range Interpretation Comments POCT GLU (test code = 7482893774) 234 mg/dL 70-110 H Lab Interpretation (test code = Abnormal 07460-7) [facility] GLUCOSE (AUTOMATED)2022-07-20 22:27:55 Test Item Value Reference Range Interpretation Comments POCT GLU (test code = 2417330018) 234 mg/dL 70-110 H Lab Interpretation (test code = Abnormal 69586-5) [facility] [id number] 17:21:08 Test Item Value Reference Range Interpretation Comments NT-proBNP (test code 3250 pg/mL See_Comment H [Autom ated = 2310129986) message] The system which generated this result transmitted reference range : <=125. The reference range was not used to interpret this result as normal/abnormal . ROSLYN (test code = ROSLYN) Biotin has been reported to cause a negative bias, interpret results relative to patient's use of biotin. Lab Interpretation Abnormal (test code = 95305-3) [facility] [id number] 17:21:08 Test Item Value Reference Range Interpretation Comments NT-proBNP (test code 3250 pg/mL See_Comment H [Autom ated = 4566186055) message] The system which generated this result transmitted reference range : <=125. The reference range was not used to interpret this result as normal/abnormal . ROSLYN (test code = ROSLYN) Biotin has been reported to cause a negative bias, interpret results relative to patient's use of biotin. Lab Interpretation Abnormal (test code = 51050-1) [facility] WITH [id number] 17:16:49 Test Item Value Reference Range Interpretation [...] RDW-SD (test code = 44.7 fL 38.5-51.6 90107-2) RDW-CV (test code = 13.7 % 12.1-15.4 788-0) PLT (test code = See_Comment [Automated 777-3) message] The system which generated this result transmit artem reference range : 150 - 328 10*3/ ?L. The reference range was not u sed to interpret th is result as normal/abnormal . MPV (test code = 12.5 fL 9.8-13 22558-5) NRBC/100 WBC (test See_Comment [Automat ed code = 3482126141) message] The system which generated this result transmit artem reference range : 0.0 - 10.0 /100 WBCs. The reference range was not used to interpret this result as normal/abnormal . NRBC x10^3 (test code See_Comment [Auto mated = 7126801068) message] The system which generated this result transmit artem reference range : 10*3/?L. The reference range was not used to interpret this result as normal/abnormal . GRAN MAT (NEUT) % 76.6 % (test code = 770-8) IMM GRAN % (test code 0.70 % = 1651505459) LYMPH % (test code = 13.8 % 736-9) MONO % (test code = 8.5 % 5905-5) EOS % (test code = 0.1 % 713-8) BASO % (test code = 0.3 % 706-2) GRAN MAT x10^3(ANC) 17.13 10*3/uL 1.99-6.95 H (test code = 6254063344) IMM GRAN x10^3 (test 0.16 10*3/uL 0-0.06 H code = 0586088373) LYMPH x10^3 (test code 3.10 10*3/uL 1.09-3.23 = 731-0) MONO x10^3 (test code 1.91 10*3/uL 0.36-1.02 H = 742-7) EOS x10^3 (test code = 0.06-0.53 L 711-2) BASO x10^3 (test code 0.07 10*3/uL 0.01-0.09 = 704-7) BANDS (test code = Increased A 7799441760) REACT LYMPHS (test Rare code = 8893869850) Lab Interpretation Abnormal (test code = 17266-3) [facility] WITH [id number] 17:16:49 Test Item Value Reference Range Interpretation [...] RDW-SD (test code = 44.7 fL 38.5-51.6 38137-9) RDW-CV (test code = 13.7 % 12.1-15.4 788-0) PLT (test code = See_Comment [Automated 777-3) message] The system which generated this result transmit artem reference range : 150 - 328 10*3/ ?L. The reference range was not u sed to interpret th is result as normal/abnormal . MPV (test code = 12.5 fL 9.8-13 28900-7) NRBC/100 WBC (test See_Comment [Automat ed code = 2869721792) message] The system which generated this result transmit artem reference range : 0.0 - 10.0 /100 WBCs. The reference range was not used to interpret this result as normal/abnormal . NRBC x10^3 (test code See_Comment [Auto mated = 4524977363) message] The system which generated this result transmit artem reference range : 10*3/?L. The reference range was not used to interpret this result as normal/abnormal . GRAN MAT (NEUT) % 76.6 % (test code = 770-8) IMM GRAN % (test code 0.70 % = 7992837388) LYMPH % (test code = 13.8 % 736-9) MONO % (test code = 8.5 % 5905-5) EOS % (test code = 0.1 % 713-8) BASO % (test code = 0.3 % 706-2) GRAN MAT x10^3(ANC) 17.13 10*3/uL 1.99-6.95 H (test code = 8194516324) IMM GRAN x10^3 (test 0.16 10*3/uL 0-0.06 H code = 3686733066) LYMPH x10^3 (test code 3.10 10*3/uL 1.09-3.23 = 731-0) MONO x10^3 (test code 1.91 10*3/uL 0.36-1.02 H = 742-7) EOS x10^3 (test code = 0.06-0.53 L 711-2) BASO x10^3 (test code 0.07 10*3/uL 0.01-0.09 = 704-7) BANDS (test code = Increased A 1382685481) REACT LYMPHS (test Rare code = 6716869487) Lab Interpretation Abnormal (test code = 89411-9) [facility] [id number] 16:42:04 Test Item Value Reference Interpretation Comments Range TROPONIN I (test 0.025 ng/mL See_Comment [Automated code = 3143113887) message] The system which generated this result [...] biotin. Lab Interpretation Normal (test code = 37626-8) [facility] [id number] 16:42:04 Test Item Value Reference Interpretation Comments Range TROPONIN I (test 0.025 ng/mL See_Comment [Automated code = 1833401197) message] The system which generated this result [...] biotin. Lab Interpretation Normal (test code = 12392-0) [facility] 16:31:19 Test Item Value Reference Range Interpretation Comments APTT Patient (test See_Comment [Automat ed code = 3173-2) message] The system which generated this result transmitted reference range : 23 - 38 Seconds . The reference range was not used to interpr et this result as normal/abnormal . ROSLYN (test code = ROSLYN) The [facility] patient population mean normal value for aPTT is 30 seconds. Lab Interpretation Normal (test code = 93535-3) [facility] 16:31:19 Test Item Value Reference Range Interpretation Comments APTT Patient (test See_Comment [Automat ed code = 3173-2) message] The system which generated this result transmitted reference range : 23 - 38 Seconds . The reference range was not used to interpr et this result as normal/abnormal . ROSLYN (test code = ROSLYN) The [facility] patient population mean normal value for aPTT is 30 seconds. Lab Interpretation Normal (test code = 50481-8) [facility] (77318)2022-07-20 16:30:19 Test Item Value Reference Range Interpretation Comments NA (test code = 133 mmol/L 135-145 L 8301337930) K (test code = 5.3 mmol/L 3.5-5 H 8656477811) CL (test code = 98 mmol/L 98-108 6655933982) CO2 TOTAL (test code = 27 mmol/L 23-31 6086139457) AGAP (test code = 2-16 4418430121) BUN (test code = 13 mg/dL 7-23 5637322127) GLUCOSE (test code = 273 mg/dL 70-110 H 0178584176) CREATININE (test code = 0.62 mg/dL 0.6-1.25 0923643473) TOTAL BILI (test code = 2.1 mg/dL 0.1-1.1 H 9049805209) CALCIUM (test code = 8.6 mg/dL 8.6-10.6 8701317667) T PROTEIN (test code = 7.3 g/dL 6.3-8.2 0506131915) ALBUMIN (test code = 4.4 g/dL 3.5-5 1635195385) ALK PHOS (test code = 61 U/L 34-122 2455653829) ALTv (test code = 29 U/L 5-50 1742-6) AST(SGOT) (test code = 36 U/L 13-40 9874583967) eGFR (test code = mL/min/1.73m2 6842836069) RSOLYN (test code = ROSLYN) Association of Glomerular [...] tests). Lab Interpretation Abnormal (test code = 74509-2) [facility]. METABOLIC PANEL ([id number])2022-07-20 16:30:19 Test Item Value Reference Range Interpretation Comments NA (test code = 133 mmol/L 135-145 L 8024733255) K (test code = 5.3 mmol/L 3.5-5 H 1826481710) CL (test code = 98 mmol/L 98-108 5644604138) CO2 TOTAL (test code = 27 mmol/L 23-31 1161333414) AGAP (test code = 2-16 9198092936) BUN (test code = 13 mg/dL 7-23 9816848091) GLUCOSE (test code = 273 mg/dL 70-110 H 5613229855) CREATININE (test code = 0.62 mg/dL 0.6-1.25 6606852390) TOTAL BILI (test code = 2.1 mg/dL 0.1-1.1 H 2596417214) CALCIUM (test code = 8.6 mg/dL 8.6-10.6 3167516078) T PROTEIN (test code = 7.3 g/dL 6.3-8.2 9774058451) ALBUMIN (test code = 4.4 g/dL 3.5-5 6758977913) ALK PHOS (test code = 61 U/L 34-122 1928165710) ALTv (test code = 29 U/L 5-50 2-6) AST(SGOT) (test code = 36 U/L 13-40 7500390705) eGFR (test code = mL/min/1.73m2 3716478161) ROSLYN (test code = ROSLYN) Association of [...] tests). Lab Interpretation Abnormal (test code = 69985-0) [id number] 16:29:23 Test Item Value Reference Range Interpretation Comments PROTIME PATIENT (test See_Comment [Auto mated message] code = 5964-2) The system [employer] generated this result transmitted ref erence range: 12.0 - 1 4.7 Seconds. The re ference range was not u sed to interpret this result as normal/abnor mal. INR (test code = 6301-6) Nor mal INR <1.1; Warfarin Therap eutic range 2.0 to 3. 0 or 2.5 to 3.5, dep ending upon the indica tions. Lab Interpretation (test Normal code = 68475-0) [facility] [id number] 16:29:23 Test Item Value Reference Range Interpretation Comments PROTIME PATIENT (test See_Comment [Auto mated message] code = 5964-2) The system [employer] generated this result transmitted ref erence range: 12.0 - 1 4.7 Seconds. The re ference range was not u sed to interpret this result as normal/abnor mal. INR (test code = 6301-6) Nor mal INR <1.1; Warfarin Therap eutic range 2.0 to 3. 0 or 2.5 to 3.5, dep ending upon the indica tions. Lab Interpretation (test Normal code = 85151-2) [facility]"
[2022-12-11 20:07] LABS: Absolute Lymphocytes (CBC) 2.7 K/uL (0.7-4.9); Hematocrit 44.9 % (39.6-49.0); Lymphocytes % 20.8 % (15.3-44.8); MCV 89.9 fL (80-100); MPV 9.6 fL (7.6-11.3); RBC Red Blood Cell Count 4.99 M/uL (4.33-5.43)
[2022-12-11] MEDS ORDERED: dilTIAZem HCL 25 MG/5 ML VIAL IV ONE (20:09)
--- NOTE | 2022-12-11 20:27 | RAD REPORT ---
EXAM DESCRIPTION: Billy Single View12/11/2022 8:00 pm CLINICAL HISTORY: Chest pain/syncope COMPARISON: November 30, 2020 FINDINGS: Lungs are mildly hyperaerated. The lungs appear clear of acute infiltrate. The heart is mildly enlarged. IMPRESSION: No acute abnormalities displayed
[2022-12-11 20:36] LABS: Albumin 3.4 g/dL (3.4-5.0); Bilirubin Total 0.5 mg/dL (0.2-1.0); Magnesium 2.2 mg/dL (1.6-2.4); Potassium 3.9 mmol/L (3.5-5.1); Protein, Total 7.4 g/dL (6.4-8.2); Thyroid Stimulating Hormone 1.19 uIU/mL (0.358-3.740)
--- NOTE | 2022-12-11 20:38 | RAD REPORT ---
EXAM DESCRIPTION: CT - Head C Spine Mpr Wo Con - 12/11/2022 8:21 pm CLINICAL HISTORY: Head and neck injury status post fall. Head and neck pain COMPARISON: October 2022 TECHNIQUE: Computed axial tomography of the head and cervical spine was obtained. Sagittal and coronal reconstruction was performed. All CT scans are performed using dose optimization technique as appropriate and may include automated exposure control or mA/KV adjustment according to patient size. FINDINGS: An intracranial bleed is not seen. The ventricles are normal in caliber. Mild low-density areas within periventricular, deep and subcortical white matter bilaterally probably ischemic changes secondary to small vessel disease. An extra-axial fluid collection is not noted. Fluid within the sphenoid sinus A cervical fracture is not visualized. No dislocation is noted. Large left posterolateral osteophytes C5-6 result in marked compression of the spinal cord IMPRESSION: No acute intracranial abnormality is seen. A cervical fracture is not visualized. If the patient continues to have symptoms to suggest intracranial /spinal cord pathology then MRI wou ld be recommended
[2022-12-11] MEDS ORDERED: NA CHLORIDE 0.9% 1,000 ML ONE (20:57)
--- NOTE | 2022-12-11 21:28 | EDPHYS ---
Physician Documentation [facility] Name: José Pat Age: 72 yrs Sex: Male : 1950 Arrival Date: 12/11/2022 Time: 18:39 Bed 19 Private MD: ED Physician Jose Miguel Gallegos HPI: 12/11 20:53 This 72 yrs old Male presents to ER via EMS with complaints of Dizziness. rt 20:53 Patient presents to the ED with a syncopal event starting today. Patient states that he rt felt acutely lightheaded, losing consciousness and hitting his head. The patient denies any chest pain, reports some mild shortness of breath. Patient denies other acute complaints at this time. Symptoms are moderate in severity, no other aggravating or alleviating factors.. Historical: - Allergies: 18:47 No Known Allergies; ll1 - PMHx: 18:47 Atrial fibrillation; CHF; Chronic Chest Pain; COPD; Diabetes - IDDM; Myocardial ll1 infarction; Noncompliance with medications; - Immunization history:: Client reports receiving the 2nd dose of the Covid vaccine. - Social history:: Smoking status: Patient reports the use of cigarette tobacco products, smokes one-half pack cigarettes per day. - Family history:: not pertinent. ROS: 20:53 Constitutional: Negative for fever, chills, and weight loss, Eyes: Negative for injury, rt pain, redness, and discharge, ENT: Negative for injury, pain, and discharge, Cardiovascular: Negative for chest pain, palpitations, and edema, Abdomen/GI: Negative for abdominal pain, nausea, vomiting, diarrhea, and constipation, MS/Extremity: Negative for injury and deformity, Skin: Negative for injury, rash, and discoloration, Psych: Negative for depression, anxiety, suicide ideation, homicidal ideation, and hallucinations. 20:53 Respiratory: Positive for shortness of breath, Negative for cough. 20:53 Neuro: Positive for syncope, Negative for altered mental status. Exam: 20:53 Constitutional: This is a well developed, well nourished patient who is awake, alert, rt and in no acute distress. Head/Face: Normocephalic, atraumatic. Neck: Trachea midline, no thyromegaly or masses palpated, and no cervical lymphadenopathy. Supple, full range of motion without nuchal rigidity, or vertebral point tenderness. No Meningismus. Chest/axilla: Normal chest wall appearance and motion. Nontender with no deformity. No lesions are appreciated. Cardiovascular: Regular rate and rhythm with a normal S1 and S2. No gallops, murmurs, or rubs. Normal PMI, no JVD. No pulse deficits. Respiratory: Lungs have equal breath sounds bilaterally, clear to auscultation and percussion. No rales, rhonchi or wheezes noted. No increased work of breathing, no retractions or nasal flaring. Abdomen/GI: Soft, non-tender, with normal bowel sounds. No distension or tympany. No guarding or rebound. No evidence of tenderness throughout. Skin: Warm, dry with normal turgor. Normal color with no rashes, no lesions, and no evidence of cellulitis. MS/ Extremity: Pulses equal, no cyanosis. Neurovascular intact. Full, normal range of motion. Neuro: Awake and alert, GCS 15, oriented to person, place, time, and situation. Cranial nerves II-XII grossly intact. Motor strength 5/5 in all extremities. Sensory grossly intact. Cerebellar exam normal. Normal gait. Psych: Awake, alert, with orientation to person, place and time. Behavior, mood, and affect are within normal limits. 21:24 ECG was reviewed by the Attending Physician. rt Vital Signs: 18:46 BP 118 / 75; Pulse 105; Resp 18; Temp 98.5; Pulse Ox 92% ; Weight 107.95 kg; Height 5 ll1 ft. 7 in. (170.18 cm); Pain 6/10; 20:10 BP 116 / 69; Pulse 103; Resp 20 S; Pulse Ox 98% on 2 lpm NC; ha1 21:04 BP 122 / 66; Pulse 102; Resp 16 S; Pulse Ox 98% on 2 lpm NC; ha1 22:10 BP 117 / 90 Supine; Pulse 95; ha1 22:12 BP 119 / 95 Sitting; Pulse 105; ha1 22:14 BP 139 / 101 Standing; Pulse 108; Resp 20; Pulse Ox 95% on 2 lpm NC; ha1 18:46 Body Mass Index 37.28 (107.95 kg, 170.18 cm) ll1 MDM: 19:23 Patient medically screened. rt 20:53 Differential diagnosis: cardiac arrhythmia, CVA, generalized weakness, head injury, rt hypovolemia, idiopathic dizziness, syncope. Data reviewed: vital signs, nurses notes. Consideration of Admission/Observation Patient was admitted/placed on observation. Management of patient was discussed with the following: Hospitalist: agrees to admit. I considered the following discharge prescriptions or medication management in the emergency department Medications were administered in the Emergency Department. See MAR. Independent interpretation of the following test(s) in the Emergency Department CT Scan: My interpretation is no bleed. External Records Reviewed: Inpatient record: reviewed prior admission. Care significantly affected by the following chronic conditions: Congestive Heart Failure, afib. Response to treatment: the patient's symptoms have markedly improved after treatment. 12/11 19:29 Order name: CMP; Complete Time: 20:40 rt 12/11 19:29 Order name: CBC with Diff; Complete Time: 20:40 rt 12/11 19:29 Order name: Troponin High Sensitivity; Complete Time: 20:40 rt 12/11 19:29 Order name: Magnesium; Complete Time: 20:40 rt 12/11 19:29 Order name: TSH; Complete Time: 20:40 rt 12/11 21:32 Order name: SARS RAPID; Complete Time: 22:28 rt 12/11 19:29 Order name: EKG; Complete Time: 19:30 rt 12/11 19:29 Order name: EKG - Nurse/Tech; Complete Time: 20:35 rt 12/11 19:29 Order name: CT Head C Spine; Complete Time: 20:40 rt 12/11 19:29 Order name: Chest Single View XRAY; Complete Time: 20:40 rt EC:24 Rate is 104 beats/min. Rhythm is regular, Sinus tachycardia with No ectopy, Right rt bundle branch block. Left axis deviation noted. [place] interval is normal. QT interval is prolonged at 547 msec. No Q waves. Administered Medications: 20:14 Drug: Cardizem (diltiazem) 10 mg Route: IVP; Site: left forearm; ha1 21:03 Drug: NS 0.9% 1000 ml Route: IV; Rate: 1 bolus; Site: left forearm; ha1 Disposition Summary: 12/11/22 21:28 Hospitalization Ordered Hospitalization Status: Observation rt Provider: Rl Dobbs rt Location: Telemetry/MedSurg (observation) rt Condition: Stable rt Problem: an acute exacerbation rt Symptoms: have improved rt Bed/Room Type: Standard rt Room Assignment: 413(12/11/22 22:44) eb1 Diagnosis - Syncope rt - Unspecified atrial fibrillation rt Forms: - Medication Reconciliation Form rt - SBAR form rt Signatures: Dispatcher [employer] Yanira Smith RN RN eb1 Gen Chaparro RN RN ll1 Maxine Coronel RN RN ha1 Jose Miguel Gallegos MD MD rt Corrections: (The following items were deleted from the chart) 44 21:28 rt eb1
--- NOTE | 2022-12-11 21:28 | ER ---
Nurse's Notes [facility] Name: José Pat Age: 72 yrs Sex: Male : 1950 Arrival Date: 12/11/2022 Time: 18:39 Bed 19 Private MD: Diagnosis: Syncope;Unspecified atrial fibrillation Presentation: 12/11 18:46 Chief complaint: Patient states: Dizziness, fell just [employer] and hit head. No LOC, aspirin ll1 daily. Coronavirus screen: Vaccine status: Patient reports receiving the 2nd dose of the covid vaccine. Client denies travel out of the [place] in the last 14 days. At this time, the client does not indicate any symptoms associated with coronavirus-19. Ebola Screen: Patient denies travel to an Ebola-affected area in the 21 days before illness onset. Initial Sepsis Screen: Does the patient meet any 2 criteria? No. Patient's initial sepsis screen is negative. Does the patient have a suspected source of infection? No. Patient's initial sepsis screen is negative. Risk Assessment: Do you want to hurt yourself or someone else? Patient reports no desire to harm self or others. Onset of symptoms was December 11, 2022. 18:46 Method Of Arrival: EMS ll1 18:46 Acuity: KIT 3 ll1 18:48 Chief complaint: EMS states: VSS. ll1 Historical: - Allergies: 18:47 No Known Allergies; ll1 - PMHx: 18:47 Atrial fibrillation; CHF; Chronic Chest Pain; COPD; Diabetes - IDDM; Myocardial ll1 infarction; Noncompliance with medications; - Immunization history:: Client reports receiving the 2nd dose of the Covid vaccine. - Social history:: Smoking status: Patient reports the use of cigarette tobacco products, smokes one-half pack cigarettes per day. - Family history:: not pertinent. Screenin:18 Abuse screen: Denies threats or abuse. Denies injuries from another. Nutritional ha1 screening: No deficits noted. Tuberculosis screening: No symptoms or risk factors identified. 23:34 [facility] ED Fall Risk Assessment (Adult) History of falling in the last 3 months, ll3 including since admission Yes- single mechanical fall (1 pt) Confusion or Disorientation No (0 pts) Intoxicated or Sedated No (0 pts) Impaired Gait No (0 pts) Mobility Assist Device Used No (0 pt) Altered Elimination No (0 pt) Score/Fall Risk Level 0 - 2 = Low Risk Oriented to surroundings, Maintained a safe environment, Educated pt \T\ family on fall prevention, incl call for assistance when getting out of bed, Provided non-skid footwear. Assessment: 19:50 General: Appears comfortable, Behavior is calm, cooperative. Pain: Denies pain. Neuro: ha1 Level of Consciousness is awake, alert, obeys commands, Oriented to person, place, time, situation. Cardiovascular: Reports syncope, Heart tones S1 S2 present Patient's skin is warm and dry. Rhythm is sinus tachycardia. Respiratory: Airway is patent Respiratory effort is even, unlabored, Respiratory pattern is regular, symmetrical. GI: No signs and/or symptoms were reported involving the gastrointestinal system. : No signs and/or symptoms were reported regarding the genitourinary system. EENT: No deficits noted. No signs and/or symptoms were reported regarding the EENT system. Derm: Skin is fragile, Skin is dry, Skin is normal. Musculoskeletal: Circulation, motion, and sensation intact. 21:04 Reassessment: Patient and/or family updated on plan of care and expected duration. Pain ha1 level reassessed. Patient is alert, oriented x 3, equal unlabored respirations, skin warm/dry/pink. Patient denies pain at this time. Vital Signs: 18:46 BP 118 / 75; Pulse 105; Resp 18; Temp 98.5; Pulse Ox 92% ; Weight 107.95 kg; Height 5 ll1 ft. 7 in. (170.18 cm); Pain 6/10; 20:10 BP 116 / 69; Pulse 103; Resp 20 S; Pulse Ox 98% on 2 lpm NC; ha1 21:04 BP 122 / 66; Pulse 102; Resp 16 S; Pulse Ox 98% on 2 lpm NC; ha1 22:10 BP 117 / 90 Supine; Pulse 95; ha1 22:12 BP 119 / 95 Sitting; Pulse 105; ha1 22:14 BP 139 / 101 Standing; Pulse 108; Resp 20; Pulse Ox 95% on 2 lpm NC; ha1 18:46 Body Mass Index 37.28 (107.95 kg, 170.18 cm) ll1 ED Course: 18:39 Patient arrived in ED. as 18:47 Triage completed. ll1 18:48 Arm band placed on. ll1 19:21 Jose Miguel Gallegos MD is Attending Physician. rt 19:22 Maxine Coronel, RN is Primary Nurse. ha1 20:02 Chest Single View XRAY In Process Unspecified. EDMS 20:02 TSH Sent. ha1 20:02 Magnesium Sent. ha1 20:02 Troponin High Sensitivity Sent. ha1 20:02 CBC with Diff Sent. ha1 20:02 CMP Sent. ha1 20:23 CT Head C Spine In Process Unspecified. EDMS 21:28 Rl Dobbs MD is Hospitalizing Provider. rt 21:54 SARS RAPID Sent. bc6 23:34 Patient has correct armband on for positive identification. Placed in gown. Bed in low ll3 position. Call light in reach. Side rails up X 1. Client placed on continuous cardiac and pulse oximetry monitoring. NIBP monitoring applied. 23:34 No provider procedures requiring assistance completed. Patient admitted, IV remains in ll3 place. Oxygen administration via nasal cannula \T\ 2L/min. Administered Medications: 20:14 Drug: Cardizem (diltiazem) 10 mg Route: IVP; Site: left forearm; ha1 21:03 Drug: NS 0.9% 1000 ml Route: IV; Rate: 1 bolus; Site: left forearm; ha1 Medication: 23:34 VIS not applicable for this client. ll3 Outcome: 21:28 Decision to Hospitalize by Provider. rt 23:33 Admitted to Tele accompanied by nurse, via wheelchair, room 413, with oxygen, with ll3 chart, Report called to MADELEINE Rodriguez 23:33 Condition: stable 23:33 Discharge instructions given to patient, Instructed on the need for admit, Demonstrated understanding of instructions. 23:35 Patient left the ED. ll3 Signatures: Dispatcher [employer] Cass Regalado Lynsay, RN RN 1 Katerin Live RN RN 3 Maxine Coronel RN RN 1 Jose Miguel Gallegos MD MD rt Tawny Fofana 6
[2022-12-11 22:18] LABS: SARS-CoV-2 Antigen Rapid Res Negative (Negative)
--- NOTE | 2022-12-11 22:27 | P.HP ---
Certification for Inpatient Patient admitted to: Observation With expected LOS: <2 Midnights Patient will require the following post-hospital care: None Practitioner: I am a practitioner with admitting privileges, knowledge of patient current condition, hospital course, and medical plan of care. Services: Services provided to patient in accordance with Admission requirements found in Title 42 Section 412.3 of the Code of Federal Regulations <Fausto Cochran - Last Filed: 12/11/22 22:19> Patient History Date of Service: 12/11/22 Reason for admission: AFIB RVR, syncope History of Present Illness: 72-year-old male with history of chronic respiratory failure secondary to COPD on home O2, paroxysmal atrial fibrillation, chronic systolic congestive heart failure, diabetes mellitus type 2, hypertension, hyperlipidemia presented to the emergency department today for syncope, fall x2. He reports he was walking around his house when he began to have palpitations, dizziness followed by syncope with loss of consciousness for "a couple of minutes". He reports this happened twice. He was evaluated here in the emergency department CT of the head and C-spine were negative for acute findings chest x-ray is unremarkable. His labs were significant for mild leukocytosis with white blood cell count of 13.2 troponin HS 17 EKG with Sinus tach at around 100. He did have a run of AF RVR in ED with rate in the 120s-130s which he was given cardizem for. HR has improved. - Past Medical/Surgical History Diabetic: Yes -: DIVERTICULITIS -: COPD-on home O2 -: A. fib-noncompliant with Eliquis -: Systolic CHF -: Diabetes mellitus type 2 -: Hypertension -: Hyperlipidemia -: Colostomy and reversal Psychosocial/ Personal History: Patient lives at home with his - Family History Father Notes: mesothelioma Mother -: Heart disease, Hypertension - Social History Smoking Status: Current every day smoker Alcohol use: No CD- Drugs: No Caffeine use: Yes Place of Residence: Home <Fausto Cochran - Last Filed: 12/11/22 22:19> Date of Service: 12/12/22 <Rl Dobbs - Last Filed: 12/12/22 18:47> Allergies No Known Allergies Allergy (Verified 11/08/22 01:58) Home Medications: RX: Aspirin [Aspirin EC 81 MG] 81 mg PO DAILY #30 tablet. 07/04/22 RX: Apixaban [Eliquis] 5 mg PO BID #60 tab 10/09/22 RX: Atorvastatin Calcium [Lipitor] 40 mg PO BEDTIME #30 tab 10/09/22 RX: Digoxin 125 mcg PO DAILY #30 tab 10/09/22 RX: Fluticasone/Umeclidin/Vilanter [Trelegy Ellipta 200-62.5-25] 1 each IH DAILY 30 Days #1 kit 10/24/22 RX: Furosemide [Lasix*] 40 mg PO DAILY #10 tab 10/24/22 RX: Albuterol Neb [Proventil 0.083% Neb Soln] 2.5 mg NEB [id number] PRN #120 amp 11/06/22 RX: Ipratropium Neb [Atrovent*] 0.5 mg IH Q6H #120 amp 11/06/22 RX: predniSONE [Prednisone*] 20 mg PO DAILY #5 tab 11/06/22 RX: Cefpodoxime Proxetil 200 mg PO BID #24 tab 11/09/22 RX: Fluconazole [Diflucan] 200 mg PO DAILY #14 tab 11/09/22 RX: Nebulizer 1 each QID #1 kit 11/09/22 RX: Sotalol HCl [Betapace*] 80 mg PO BID 6AM 6PM #60 tab 12/12/22 Review of Systems 10-point ROS is otherwise unremarkable Cardiovascular: Palpitations Neurological: Other (syncope) <Fausto Cochran - Last Filed: 12/11/22 22:19> Physical Examination - Physical Exam General: Alert, In no apparent distress, Oriented x3 HEENT: Atraumatic, PERRLA, Mucous membr. moist/pink, EOMI, Sclerae nonicteric Neck: Supple, 2+ carotid pulse no bruit, No LAD, Without JVD or thyroid abnormality Respiratory: Clear to auscultation bilaterally, Normal air movement Cardiovascular: Regular rate/rhythm, Normal S1 S2 Capillary refill: <2 Seconds Gastrointestinal: Normal bowel sounds, No tenderness Musculoskeletal: No tenderness Integumentary: No rashes Neurological: Normal speech, Normal strength at 5/5 x4 extr, Normal tone, Normal affect - Studies Laboratory Data (last 24 hrs) 12/11/22 19:50: WBC 13.20 H, Hgb 15.0, Hct 44.9, Plt Count 219 12/11/22 19:50: Sodium 139, Potassium 3.9, BUN 12, Creatinine 1.04, Glucose 247 H, Magnesium 2.2, Total Bilirubin 0.5, AST 7 L, ALT 16, Alkaline Phosphatase 78 <Fausto Cochran - Last Filed: 12/11/22 22:19> - Studies Laboratory Data (last 24 hrs) 12/11/22 19:50: WBC 13.20 H, Hgb 15.0, Hct 44.9, Plt Count 219 12/11/22 19:50: Sodium 139, Potassium 3.9, BUN 12, Creatinine 1.04, Glucose 247 H, Magnesium 2.2, Total Bilirubin 0.5, AST 7 L, ALT 16, Alkaline Phosphatase 78 <Rl Dobbs - Last Filed: 12/12/22 18:47> Assessment and Plan - Plan Assessment: Syncope paroxysmal atrial fibrillation with rapid ventricular response noncompliant with medications/anticoagulation- COPD on chronic home O2 Chronic systolic congestive heart failure Diabetes mellitus type [id number]-hyptnvw-eujygceci with hyperglycemia Hypertension Hyperlipidemia Tobacco use disorder Plan: Syncope: Patient reports palpitations, dizziness prior to syncopal event, had episode of A-fib RVR in ED possibly related to arrhythmia. Will obtain orthostatic vitals as well. Patient has had extensive work-up for syncope including CT of the chest on 11/26/2022 which is negative for pulmonary embolism, heart catheterization on 10/22/2022 which showed normal coronaries, echocardiogram on 08/12/2022 which showed EF of 30 to 35%. He also had CTA of the head and neck angio on 11/16/2022 which was negative for any large vessel occlusions. We will obtain orthostatic vital signs, admit under observation on telemetry. paroxysmal atrial fibrillation with rapid ventricular response noncompliant with medications/anticoagulation: List, monitor on telemetry. Currently rate controlled. Cardiology consulted. COPD on chronic home O2: Continue supplemental oxygen, as needed nebulizer treatments. Chronic systolic congestive heart failure: Currently compensated, continue home medications Diabetes mellitus type [id number]-harndbmxj with hyperglycemia: ACHS Accu- Chek, sliding scale insulin. A1c in the morning. Hypertension: Continue home medications Hyperlipidemia:Continue home medications Tobacco use disorder: Counseled on need for tobacco cessation. DVT PPX: Eliquis Code status: Full Discharge Plan: Home - Advance Directives Does patient have a Living Will: No Does patient have a Durable POA for Healthcare: No Critical Care: No Time Spent Managing Pts Care (In Minutes): 55 <Fausto Cochran - Last Filed: 12/11/22 22:19> Physician Review: Patient Assessed, Agree with Above Assessment and Plan <Rl Dobbs - Last Filed: 12/12/22 18:47>
[2022-12-11] MEDS ORDERED: ACETAMINOPHEN 500 MG TAB PO PRN (22:57)
[2022-12-11] MEDS ORDERED: ONDANSETRON 4 MG/2 ML VIAL IV PRN (22:57)
[2022-12-11 23:43] VITALS: BMI 33.0
[2022-12-12 04:33] VITALS: O2SAT 94
[2022-12-12 06:06] LABS: Magnesium 2.2 mg/dL (1.6-2.4); Potassium 3.9 mmol/L (3.5-5.1); Troponin High Sensitivity 19.6 pg/mL (<58.9)
[2022-12-12 07:22] LABS: Absolute Lymphocytes (CBC) 2.6 K/uL (0.7-4.9); Lymphocytes % 22.8 % (15.3-44.8); MCV 90.1 fL (80-100); MPV 9.8 fL (7.6-11.3); RBC Red Blood Cell Count 4.88 M/uL (4.33-5.43)
[2022-12-12] MEDS: INSULIN -REGULAR HUMAN 50 UNIT/0.5 ML ML SQ SCH ×3 (07:30→16:28)
[2022-12-12] MEDS ORDERED: POTASSIUM CL SA 10 MEQ TAB PO ONE (09:00)
[2022-12-12] MEDS ORDERED: carvediloL 6.25 MG TAB PO SCH (09:00)
[2022-12-12] MEDS ORDERED: APIXABAN 5 MG TABLET PO SCH (09:00)
[2022-12-12 16:25] VITALS: BP 118/75; TEMP 97.6
[2022-12-12] MEDS ORDERED: SOTALOL HCL 80 MG TAB PO SCH (18:00)
--- NOTE | 2022-12-12 18:50 | P.DS ---
Admission Date: 12/11/22 Discharge Date: 12/12/22 Disposition: ROUTINE DISCHARGE Discharge Condition: GOOD Reason for Admission: AFIB RVR, syncope Consultations: 1. 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 José Pat is a pleasant 72-year-old male with a past medical history significant for chronic respiratory failure secondary to chronic obstructive pulmonary disease, pulmonary arterial hypertension, paroxysmal atrial fibrillation/flutter, chronic diastolic congestive heart failure, type 2 diabetes mellitus, hypertension, and hyperlipidemia who was admitted to the [facility] on 12/11/2022 for syncope. He was admitted to the Medicine service. His EKG was without STEMI criteria. His troponin trend was flat. His chest x-ray revealed, "no acute abnormalities displayed." His CT head/cervical spine revealed, "no acute intracranial abnormality is seen. A cervical fracture is not visualized." His orthostatic vital signs were checked and were: Lying BP 107/65, Sitting BP 111/73, and Standing BP 101/61. I ambulated with him around the nursing station, without any signs of shortness of breath or dizziness. He stated that he felt well and would like to be discharged home. I advised that he maintain adequate hydration. Cardiology was consulted and he was evaluated by Dr. Garcia. He has cleared him for discharge with sotalol and outpatient follow-up. Of note, he was found to have, "large left posterolateral osteophytes C5-6 result in marked compression of the spinal cord." He denied any alarm symptoms (i.e. no unilateral weakness, saddle anesthesia, or urinary/bowel incontinence). I discussed this with Dr. Hoover, who recommended that he schedule a follow-up appointment with Dr. Nathan (Neurosurgery). On 12/12/2022, he was seen on rounds and deemed medically stable for discharge. He was discharged with instructions to schedule follow-up appointments with his PCP, with Neurosurgery (Dr. Nathan), and with Cardiology (Dr. Garcia). He was given a prescription for sotalol. He was given the opportunity to ask questions and reported no further questions. Furthermore, all questions were answered to the best of my ability. A copy of this discharge summary will be sent to the above providers to facilitate continuity of care. Today, I personally spent 25 minutes on his case, of which greater than 50% of the time was spent in patient education, counseling, and coordination of care as described above. General: Alert, In no apparent distress, Oriented x3 HEENT: Atraumatic, PERRLA, Mucous membr. moist/pink, Sclerae nonicteric Neck: JVD not distended Respiratory: Clear to auscultation bilaterally, Normal air movement Cardiovascular: Regular rate/rhythm, No gallops, No rubs, No murmurs, No edema Gastrointestinal: Normal bowel sounds, Soft, Non-distended, No tenderness Musculoskeletal: No clubbing Integumentary: No rashes Neurological: Normal gait, Normal speech, Normal strength at 5/5 x4 extr, Cranial nerves 3-12 intact, Normal affect Vital Signs/Physical Exam: Temp Pulse Resp BP Pulse Ox 97.6 F 89 16 118/75 95 12/12/22 16:00 12/12/22 16:00 12/12/22 16:00 12/12/22 16:00 12/12/22 16:00 Laboratory Data at Discharge: WBC 11.30 K/uL (4.3-10.9) H 12/12/22 07:07 Hgb 14.4 g/dL (13.6-17.9) 12/12/22 07:07 Hct 44.0 % (39.6-49.0) 12/12/22 07:07 Plt Count 192 K/uL (152-406) 12/12/22 07:07 Sodium 141 mmol/L (136-145) 12/12/22 05:33 Potassium 3.9 mmol/L (3.5-5.1) 12/12/22 05:33 BUN 10 mg/dL (7-18) 12/12/22 05:33 Creatinine 0.72 mg/dL (0.70-1.30) 12/12/22 05:33 Glucose 222 mg/dL (74-106) H 12/12/22 05:33 Magnesium 2.2 mg/dL (1.6-2.4) 12/12/22 05:33 Total Bilirubin 0.5 mg/dL (0.2-1.0) 12/11/22 19:50 AST 7 U/L (15-37) L 12/11/22 19:50 ALT 16 U/L (16-61) 12/11/22 19:50 Alkaline Phosphatase 78 U/L (45-117) 12/11/22 19:50 Home Medications: Aspirin [Aspirin EC 81 MG] 81 mg PO DAILY #30 tablet.dr 07/04/22 Apixaban [Eliquis] 5 mg PO BID #60 tab 10/09/22 Atorvastatin Calcium [Lipitor] 40 mg PO BEDTIME #30 tab 10/09/22 Digoxin 125 mcg PO DAILY #30 tab 10/09/22 Fluticasone/Umeclidin/Vilanter [Trelegy Ellipta 200-62.5-25] 1 each IH DAILY 30 Days #1 kit 10/24/22 Furosemide [Lasix*] 40 mg PO DAILY #10 tab 10/24/22 Albuterol Neb [Proventil 0.083% Neb Soln] 2.5 mg NEB [id number] PRN #120 amp 11/06/22 Ipratropium Neb [Atrovent*] 0.5 mg IH Q6H #120 amp 11/06/22 predniSONE [Prednisone*] 20 mg PO DAILY #5 tab 11/06/22 Cefpodoxime Proxetil 200 mg PO BID #24 tab 11/09/22 Fluconazole [Diflucan] 200 mg PO DAILY #14 tab 11/09/22 Nebulizer 1 each QID #1 kit 11/09/22 Sotalol HCl [Betapace*] 80 mg PO BID 6AM 6PM #60 tab 12/12/22 New Medications: Sotalol HCl [Betapace*] 80 mg PO BID 6AM 6PM #60 tab Physician Discharge Instructions: 1. Please call and schedule a follow-up appointment with your PCP in 3-5 days 2. Please call and schedule a follow-up appointment with Neurosurgery (Dr. Nathan) in 3-5 days 3. Please call and schedule a follow-up appointment with Cardiology (Dr. Garcia) in 5-7 days Diet: AHA Activity: Ad clive Followup: ANY NATHAN [Other] Gianluca Garcia MD [ACTIVE - CAN ADMIT] - Time spent managing pt's care (in minutes): 25
--- NOTE | 2022-12-12 19:40 | CON ---
Date of Consultation: 12/12/2022 Reason For Consultation: Atrial fibrillation and syncopal episode. History Of Present Illness: This is a 72-year-old male with history of COPD on home oxygen, paroxysm al atrial fibrillation, congestive heart failure, diabetes, hypertension, and dyslipidemia who presen artem after he had a fall. Apparently started feeling palpitations, heart rate was very fast and he fe lt dizzy and then he passed out. He did not hit his head. Denies having any chest pain or shortness of breath. Upon arrival, he was found to be in atrial fibrillation with rapid ventricular response, which are controlled with AV node blockers. Past Medical History: As outlined above in HPI. Medications: Refer to reconciliation sheet for detailed list. Allergies: NO KNOWN DRUG ALLERGIES. Family History: No premature coronary artery disease or cancer. Social History: He is an active smoker. Does not drink or use drugs. Review of Systems: All systems reviewed and they are negative except for mentioned in HPI. Physical Examination: Vital Signs: Reviewed. Head And Neck: Pupils are equal and reactive to light. Intact eye movements. No JVD. No cervical lymphadenopathy. Neck is supple. Thyroid is not enlarged. Lungs: Clear to auscultation bilaterally. No rhonchi, wheezing, or crackles. No accessory muscle u se. Heart: Irregularly irregular. No extra sounds. Abdomen: Soft, nontender. Bowel sounds positive. No organomegaly. No masses or hernia. No rigidi ty or rebound. Extremities: No edema, clubbing, or cyanosis. Intact pulses. Skin: No rash. Neurologic: Alert, awake, and oriented x3. No acute focal deficits appreciated. Investigations: BUN is 10, creatinine 0.74, and his hemoglobin 14.4. Assessment/recommendation: 1.Atrial fibrillation with rapid ventricular response. Recommend to start sotalol 80 mg by mouth tw ice a day and with third dose to monitor EKG to evaluate the QTc interval and he can use metoprolol 5 mg IV as needed for heart rate control. Continue Eliquis as well. 2.Dyslipidemia. Continue statin. 3.Hypertension. The patient's blood pressure is controlled. SR/MODL Voice ID: [id number] Report ID: [id number]
[2022-12-12] MEDS ORDERED: ATORVASTATIN 40 MG TAB PO SCH (21:00)
== END 2022-12-12 21:10 | disposition home or self-care (01) ==
LOC: ER 18:38 → ERHOLD 21:56 → 4TH 22:46
PROVIDERS: ADMIT Internal Medicine; ATTEND Internal Medicine
DX: I95.1 Orthostatic hypotension (principal); I48.0 Paroxysmal atrial fibrillation; I48.92 Unspecified atrial flutter; J96.10 Chronic respiratory failure, unspecified whether with hypoxia or hypercapnia; J44.9 Chronic obstructive pulmonary disease, unspecified; I27.21 Secondary pulmonary arterial hypertension; I50.22 Chronic systolic (congestive) heart failure; M48.52XA Collapsed vertebra, not elsewhere classified, cervical region, initial encounter for fracture; M25.78 Osteophyte, vertebrae; E11.65 Type 2 diabetes mellitus with hyperglycemia; I10 Essential (primary) hypertension; E78.5 Hyperlipidemia, unspecified; Z72.0 Tobacco use; Z99.81 Dependence on supplemental oxygen; Z91.14 Patient's other noncompliance with medication regimen; Z20.822 Contact with and (suspected) exposure to COVID-19
CPT/HCPCS: 36415; 70450; 71045; 72125; 80048; 80053; 82947; 83036; 83735; 84443; 84484; 85025; 87811; 93005; 96374; 97116; 97161; 99285; G0378; J1815; J7030

== ENCOUNTER 2023-03-07 17:52 | Emergency (ER) | payer OTHER ==
--- OUTSIDE RECORDS SUMMARY | 2023-03-07 18:00 | XMS REPORT | Continuity of Care Document ---
:1950 Author Organization [facility] t Address [address] [place] [address] [address] [place] [address] Care Team Providers Name Role Phone Pcp, Patient Does Not Have A Primary Care Physician [phone] Attending Clinician Unavailable Meghana Ayala Attending Clinician Unavailable Jose Kim Rahil Attending Clinician Unavailable Cristian SALVADOR, [place] Attending Clinician Unavailable Charlene Butt DO Attending Clinician Atul Stephens MD Attending Clinician Berna Alcantar MD Attending Clinician [phone] BERNA ALCANTAR Attending Clinician Unavailable Orlando Cannon MD Attending Clinician [id number] Admitting Clinician Unavailable Jose Kim Rahil Admitting Clinician Unavailable Berna Alcantar MD Admitting Clinician [phone] BERNA ALCANTAR Admitting Clinician Unavailable Payers Payer Name Policy Type Policy Number Effective Date Expiration Date S cindy [facility] [id number] Problems Condition Condition Condition Status Onset Resolution Last Treating Co mments Source Name Details Category Date Date Treatment Clinician Date Acute on Acute on Disease Active Unive rs chronic chronic 9-11 ity of combined combined 00:00: [place] systolic systolic 00 Medica l and and [...] vers smoker smoker 07-21 ity of 00:00: [place] 00 Medical Branch Type 2 Type 2 Disease Active Univers diabetes diabetes 07-21 ity of mellitus mellitus 00:00: [place] without without 00 Medical complicati complicati Br [...] Added automatic ally from request for surgery [id number] CHF CHF Problem Active Common (congestiv (congestiv Sp anabela e heart e heart - [facility]I failure) failure) [facility] Hypertensi Hypertensi Problem Active C ommon on on Spirit - [facility] Diabetes Diabetes Problem Active Commo n type 2, type 2, Spirit controlled controlled - [facility] COPD COPD Problem Active Common (chronic (chronic Spirit obstructiv obstructiv - CHI e e St pulmonary pulmonary Saxton s disease) disease) Medica l Center Nicotine Nicotine Problem Active Commo n dependence dependence Sp anabela - [facility] Seasonal Seasonal Problem Active Commo n allergic allergic Spirit rhinitis rhinitis - [facility] Adjustment Adjustment Problem Active C ommon disorder disorder Spirit with with - [facility]I depressed depressed [facility] Chronic Chronic Problem Active Common fatigue fatigue Spirit - [facility] Type 2 Type 2 Problem Active Common diabetes diabetes Spirit mellitus mellitus - [facility]I with with St hypergly hyperglyce Anupama kes marci, marci, Medical without without Center long-term long-term current current use of use of insulin insulin Allergies, Adverse Reactions, Alerts Allergy Allergy Status Severity Reaction(s) Onset Inactive Treating Comm ents Source Name Type Date Date Clinician NO KNOWN Drug Active Univers ALLERGIE Class ity of S [facility] Social History Social Habit Start Date Stop Date Quantity Comments Source History of Cigarette Smoker Universi ty of tobacco use [place] [facility] History SDOH Food 2022-07-29 2022-07-29 1 Univers ity of Worry 00:00:00 00:00:00 [place] [facility] History SDOH Food 2022-07-29 2022-07-29 1 Univers ity of Scarcity 00:00:00 00:00:00 [place] [facility] History SDOH 2022-07-29 2022-07-29 2 University o f Transport Med 00:00:00 00:00:00 [place] Medic al Branch History [facility] 2022-07-29 2022-07-29 2 University o f Transport Non-Med 00:00:00 00:00:00 [facility] edical Branch Tobacco use and 2022-07-21 2022-07-21 Smokeless tobacco Un iversity of exposure 00:00:00 00:00:00 non-user [facility] Exposure to 2022-07-10 2022-07-20 Not sure University of SARS-CoV-2 00:00:00 10:56:00 [facility] (event) Branch Sex [birth year] At [birth year] Universit y of 00:00:00 00:00:00 [facility] Smoking Status Start Date Stop Date Source Smokes tobacco daily 2022-07-21 00:00:00 Univers ity of [facility] Medications Ordered Filled Start Stop Current Ordering [...] Until Discontinu ed, Routine furosemide 2021-0 Yes [id number] 40mg Take 1 Univers 40 mg 9-18 tablet by ity of tablet 00:00: mouth in [place] 00 the Medical morning Branch and 1 tablet in the evening. metoprolol 2021-0 Yes [id number] 50mg Take 1 Univers succinate 9-18 tablet by ity o f XL 50 mg 24 00:00: [place] hr tablet 00 the Medical morning. Branch spironolact 2021-0 Yes [id number] 25mg Take 1 Univers one 25 mg 9-18 tablet by ity o f tablet 00:00: mouth in [place] 00 the Medical morning. Branch furosemide 2021-0 Yes [id number] 40mg Take 1 Univers 40 mg 9-18 tablet by ity of tablet 00:00: mouth in [place] 00 the Medical morning Branch and 1 tablet in the evening. metoprolol 2021-0 Yes [id number] 50mg Take 1 Univers succinate 9-18 tablet by ity o f XL 50 mg 24 00:00: [place] tablet 00 the Medical morning. Branch spironolact 2021-0 Yes [id number] 25mg Take 1 Univers one 25 mg 9-18 tablet by ity o f tablet 00:00: mouth in [place] 00 the Medical morning. Branch furosemide 2021-0 Yes [id number] 40mg Take 1 Univers 40 mg 9-18 tablet by ity of tablet 00:00: mouth in [place] 00 the Medical morning Branch and 1 tablet in the evening. metoprolol 2021-0 Yes [id number] 50mg Take 1 Univers succinate 9-18 tablet by ity o f XL 50 mg 24 00:00: [place] hr tablet 00 the Medical morning. Branch spironolact 2021-0 Yes [id number] 25mg Take 1 Univers one 25 mg 9-18 tablet by ity o f tablet 00:00: mouth in [place] 00 the Medical morning. Branch aspirin 2021-0 [...] by ity o f 21:46: mouth in [place] 23 the Medical morning. Branch montelukast 0 Yes 1{tbl} Take 1 Un rita 10 mg 9-17 tablet by ity of tablet 21:46: mouth in [place] 23 the Medical morning. Branch albuterol 0 Yes 2{puff} Take 2 Uni vers sulfate 9-17 Puffs by ity of (PROAIR 21:46: mouth as [place] RESPICLICK) 23 needed for Me dical 90 Cough. Branch mcg/actuati Cough, on AePB wheezing aspirin 0 Yes 81mg Take 81 mg Univ ers (ASPIR-LOW 9-17 by mouth 2 ity of ORAL) 21:46: (two) [place] [id number] times Medical daily. Branch insulin Yes 15U inject 15 Unive rs glargine,hu 9-17 Units ity of m.rec.anlog 21:46: under the [place] (LANTUS 23 skin. Medical U-100 Branch INSULIN SC) losartan 25 0 Yes 1{tbl} Take 1 Un rita mg tablet 9-17 tablet by ity o f 21:46: mouth in [place] 23 the Medical morning. Branch montelukast 0 Yes 1{tbl} Take 1 Un rita 10 mg 9-17 tablet by ity of tablet 21:46: mouth in [place] 23 the Medical morning. Branch albuterol 0 Yes 2{puff} Take 2 Uni vers sulfate 9-17 Puffs by ity of (PROAIR 21:46: mouth as [place] RESPICLICK) 23 needed for Me dical 90 Cough. Branch mcg/actuati Cough, on AePB wheezing aspirin 2021-0 Yes 81mg Take 81 mg Univ ers (ASPIR-LOW 9-17 by mouth 2 ity of ORAL) 21:46: (two) [place] 23 times Medical daily. Branch insulin 2022-0 Yes 15U inject 15 Unive rs glargine,hu 9-17 Units ity of m.rec.anlog 21:46: under the [place] (LANTUS 23 skin. Medical U-100 Branch INSULIN SC) losartan 25 Yes 1{tbl} Take 1 Un rita mg tablet 9-17 tablet by ity o f 21:46: mouth in [place] 23 the Medical morning. Branch montelukast Yes 1{tbl} Take 1 Un rita 10 mg 9-17 tablet by ity of tablet 21:46: mouth in [place] 23 the Medical morning. Branch albuterol Yes 2{puff} Take 2 Uni vers sulfate 9-17 Puffs by ity of (PROAIR 21:46: mouth as [place] RESPICLICK) 23 needed for Me dical 90 [...] Branch 07/26/22 at 2030, Routine atorvastati Yes [id number] 40mg Take 1 Univers n 40 mg 9-17 tablet by ity of tablet 00:00: mouth at [place] 00 bedtime. Medical Branch apixaban Yes 1358 5mg Take 1 Univers (ELIQUIS) 5 9-17 tablet by ity of mg tablet 00:00: [place] 00 the Medical morning Branch and 1 tablet in the evening. Indication s: atrial fibrillati on atorvastati Yes [id number] 40mg Take 1 Univers n 40 mg 9-17 tablet by ity of tablet 00:00: mouth at [place] 00 bedtime. Medical Branch apixaban Yes 1358 5mg Take 1 Univers (ELIQUIS) 5 9-17 tablet by ity of mg tablet 00:00: [place] 00 the Medical morning Branch and 1 tablet in the evening. Indication s: atrial fibrillati on atorvastati Yes [id number] 40mg Take 1 Univers n 40 mg 9-17 tablet by ity of tablet 00:00: mouth at [place] 00 bedtime. Medical Branch apixaban Yes 1358 [...] ed insulin 2021- No 15U 15 Units, [facility] ers glargine 07-26 Subcutaneo ity of (LANTUS 14:00: 04:46 us, DAILY, [place] as U-100) 00 :24 First dose Medical injection (after Branch 15 Units last modificati on) on Fri07/26/22 at 0900, Until Discontinu ed KCL 2021- No 20meq 20 mEq, Univers (KLOR-CON 07-26 Oral, ity of M20) tablet 13:30: 14:05 ONCE, 1 [place] 20 mEq 00 :00 dose, On Medical Fri07/26/22 at 0830, Routine Sliding Yes Subcutaneo Univ [...] last Branch Fsbg modificati Testing on) on [facility] 07/25/22 at 2000, Until Discontinu ed, Routine magnesium 2021- No 2g 2 g, IV [facility] ers sulfate in 07-26 Piggyback, it y [...] mg 00 :46 First dose Medical on [facility] Branch 07/25/22 at 1100, Until Discontinu [...] Oral, ity of XL (TOPROL 14:15: DAILY, [place] XL) tablet 00 First dose Med ical 50 mg on Fri Branch 07/24/22 at 0915, Until Discontinu ed, Routine metoprolol 2021- No 50mg 50 mg, Univ ers succinate 07-24 Oral, ity of XL (TOPROL 14:15: 04:46 DAILY, [facility] s XL) tablet 00 :24 First [...] Rang e, Dosing and Testing: &nbs p;[facility], AND [facility] ONLY - aPTT < [...] Rang e, Dosing and Testing: &nbs p;FOR [facility], AND [facility] CAMPUSES ONLY - aPTT < [...] 53 Starting Medi jose tablet 1 on [facility] tablet 07/23/22 at 1031, Until Discontinu ed, Routine, Pain (scale 4-6) HYDROcodone 0 2021- No 1{tbl} 1 tablet, Univers -acetaminop 07-2318 Oral, ity of hen (NORCO 15:31: 04:46 Q6HPRN, [place] 5) 5-325 mg 53 :24 Starting Medi jose tablet 1 on [facility] tablet 07/23/22 at 1031, Until 07/27/22 [...] [place] mg 00 First dose Medical on [facility] 07/22/22 at 0900, Until Discontinu ed, Routine montelukast Yes 10mg 10 mg, Univ ers (SINGULAIR) 07-22 Oral, ity of tablet 10 14:00: DAILY, [place] mg 00 First dose Medical on [facility] 07/22/22 at 0900, Until Discontinu ed, Routine spironolact 2021- No 25mg 25 mg, Uni vers one 07-22 Oral, ity of (ALDACTONE) 14:00: 04:46 DAILY, [place] tablet 25 00 :24 First dose Medi jose mg on [facility] 07/22/22 at 0900, Until Discontinu ed, Routine aspirin No 81mg 81 mg, Univers chewable 07-22 Oral, ity of tablet 81 14:00: 04:46 DAILY, [place] mg 00 :24 First dose Medical on [facility] 07/22/22 at 0900, Until Discontinu ed, Routine losartan 2021- No 25mg 25 mg, Univer s (COZAAR) 07-22 Oral, ity of tablet 25 14:00: 04:46 DAILY, [place] mg 00 :24 First dose Medical on [facility] 07/22/22 at 0900, Until Discontinu ed, Routine montelukast 2021- No 10mg 10 mg, Uni vers (SINGULAIR) 07-22 Oral, ity of tablet 10 14:00: 04:46 DAILY, [place] mg 00 :24 First dose Medical on [facility] 07/22/22 at 0900, Until Discontinu ed, Routine metoprolol 2021- No 50mg 50 mg, Univ ers tartrate 07-22 Oral, BID ity o f (LOPRESSOR) 13:00: 14:10 MEALS, [place] as tablet 50 00 :14 First dose Medi jose mg on [facility] 07/22/22 at 0800, Until Discontinu ed, Routine atorvastati Yes 40mg 40 mg, Univ ers n (LIPITOR) 07-22 Oral, QHS, it y of tablet 40 02:00: First dose [place] mg 00 on [facility] 07/21/22 at Branch 2100, Until Discontinu ed, Routine atorvastati 2021- No 40mg 40 mg, Uni vers n (LIPITOR) 07-22 Oral, QHS, i ty of tablet 40 02:00: 04:46 First dose [place] mg 00 :24 on [facility] 07/21/22 at Branch 2100, Until Discontinu ed, Routine morpHINE (2 2021- No 2mg 2 mg, Slow Univers mg/mL) 07-22 IV Push, ity of injection 2 01:29: 15:32 Q6HPRN, [place] mg 07 :09 Starting Medical on [facility] 07/21/22 at 2029, Until Tu07/23/22 at 1032, Routine, Chest pain furosemide 2021- No 20mg 20 mg, IV U nivers (LASIX) 07-22 Push, ity of injection 01:00: 05:27 Q12H, [place] 20 mg 00 :42 First dose Medical (after Branch last reorder) on [place] 07/21/22 at 2000, Until Discontinu ed, LORI enoxaparin 2021- No 1mg/kg 100 mg Un rita (LOVENOX) 07-22 (rounded ity o f injection 01:00: 05:30 [place] 98.5 [place] 100 mg 00 :31 mg = 1 Medical mg/kg Branch ?98.5 kg), Subcutaneo us, Q12H, First dose (after last modificati on) on [place] 07/21/22 at 2000, Until Discontinu ed, Routine sulfur 2021- No [id number] 5mL 5 mL, Unive rs hexafluorid 07-21 Intravenou i ty of e microsphr 15:45: 15:45 s, ONCE, 1 [place] (LUMASON) 00 :00 dose, On Medica l injection 5 [place] mL 07/21/22 at 1045, Routine
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 Restricted medication : ANA LUISA GRIMM insulin 2021- No 10U 10 Units, Univ ers glargine 07-21 Subcutaneo ity of (LANTUS 14:00: 14:09 us, DAILY, [place] U-100) 00 :20 First dose Medical injection on [place] Branch 10 Units 07/21/22 at 0900, Until Discontinu ed Sliding No Subcutaneo Uni vers Scale 07-2115 us, TID ity of Insulin - 13:00: 02:33 MEALS+HS, [place] Lispro 00 :10 First dose Medical (HumaLOG) + (after Branch Fsbg last Testing modificati on) on 07/21/22 at 0800, Until Discontinu ed, Routine Sliding Subcutaneo Uni vers Scale 07-21 us, Q4H, ity of Insulin - 00:00: 06:27 First dose [place] Lispro 00 :26 on [facility] Medical (HumaLOG) + 07/20/22 at Br [...] 16 Starting Medica l 25 mL on [facility] Branch 07/20/22 at 1848, Until Discontinu ed, LORI, Blood Glucose < or = 70 mg/dL and patient is unable to swallow or has mental status changes. glucagon 2021- No 1mg 1 mg, Univers (GLUCAGEN 07-2018 Intramuscu ity of DIAGNOSTIC 23:48: 04:46 lar, PRN, [place] KIT) 16 :24 Starting Medical injection 1 on [facility] Branch mg 07/20/22 at 1848, Until [...] status changes. metoprolol No 25mg 25 mg, [facility] ers tartrate 07-20 Oral, Q6H, ity of [...] 00 :00 dose, On Medica l mg [facility] Branch 07/20/22 at 1300, LORI furosemide 2021- No 20mg 20 mg, IV U nivers (LASIX) 07-20 Push, ity of injection 17:58: 18:02 ONCE, 1 [place] 20 mg 00 :00 dose, On Medical [facility] Branch 07/20/22 at 1300, LORI NaCl 0.9% 2021- No 500mL at 999 Univ ers (NS) bolus 07-20 mL/hr, 500 it y of infusion 17:00: 17:15 mL, IV [place] 500 mL 00 :00 Piggyback, Medical ONCE, 1 Branch dose, On [facility] 07/20/22 at 1200, STAT metoprolol 2021- No 5mg 5 mg, Slow Univers (LOPRESSOR) 07-20 IV Push, ity of injection 5 16:15: 16:16 ONCE, 1 [place] mg 00 :00 dose, On Medical [facility] Branch 07/20/22 at 1115, LORI Trelegy Trelegy 0 2020- No Meghana 1 puff Com mon Ellipta Ellipta 2-12 06-11 Bertie Spirit 00:00: 00:00 - [facility]I 00 :00 [facility] HydrOXYzine HydrOXYzine Yes Meghana 1 tablet Common HCl HCl 7 Bertie as needed Spirit 00:00: - CHI 00 [facility] Ozempic Ozempic 2020- No Meghana 0.5 mg Com mon 05-11 0824 Bertie Spirit 00:00: 00:00 - CHI 00 :00 [facility] Januvia Januvia Yes Meghana as Common 1- Bertie directed Spirit 00:00: - CHI 00 [facility] ProAir ProAir Yes Meghana 2 puffs as Comm on RespiClick RespiClick Bertie needed [facility] [place] 3 [place] 3 Yes Meghana 1 capsule Com mon Bertie [facility] Montelukast Montelukast Yes Meghana 1 tablet Common Sodium Sodium Bertie in the [facility] evening [facility] Lipitor Lipitor Yes Meghana 1 tablet Comm on Bertie [facility] Losartan Losartan Yes Meghana 1 tablet Co mmon Potassium Potassium Bertie Spir it [facility] Metoprolol Metoprolol Yes Meghana 1 tablet Common Tartrate Tartrate Bertie with food S pirit [facility] Metformin Metformin Yes Meghana 1 tablet Common HCl HCl Bertie with a [facility] meal [facility] Immunizations Ordered Immunization Filled Immunization Date Status Commen ts Source Name Name FLUZONE HIGH DOSE FLUZONE HIGH DOSE 2019-09-14 Completed Common Spirit OVER 65 OVER 65 00:00:00 [facility] Vital Signs Vital Name Observation Time Observation Value Comments Source Systolic blood 2022-07-28 01:43:00 99 mm[Hg] Univer sity [facility] Diastolic blood 2022-07-28 01:43:00 58 mm[facility]Hg[facility] 2022-07-28 01:40:00 97 /min [facility] Body temperature 2022-07-28 01:40:00 36.56 Melvi [facility] Respiratory rate 2022-07-28 01:40:00 18 /min [facility] Oxygen saturation in 2022-07-28 01:40:00 90 /min [facility] blood by [facility] Pulse oximetry Branch Body height 2022-07-26 17:49:00 172.7 cm [facility] Body weight 2022-07-26 17:49:00 96.163 kg [facility] BMI 2022-07-26 17:49:00 32.23 kg/m2 [facility] Systolic blood 2022-07-26 23:31:00 102 mm[Hg] Univer sity of pressure [facility] Diastolic blood 2022-07-26 23:31:00 59 mm[Hg] Unive rsity of [facility] Heart rate 2022-07-26 23:31:00 85 /min [facility] Body temperature 2022-07-26 23:31:00 36.56 Melvi [facility] Respiratory rate 2022-07-26 23:24:00 19 /min [facility] Oxygen saturation in 2022-07-26 23:24:00 93 /min [facility] Arterial blood by [facility] Pulse oximetry Branch Body height 2022-07-26 17:49:00 172.7 cm [facility] Body weight 2022-07-26 17:49:00 96.163 kg [facility] BMI 2022-07-26 17:49:00 32.23 kg/m2 [facility] Procedures Procedure Date / Time Performing Clinician Source Performed POCT GLUCOSE (AUTOMATED) 2022-07-27 16:45:00 Berna Alcantar [facility] POCT GLUCOSE (AUTOMATED) 2022-07-27 16:45:00 Berna Alcantar [facility] MAGNESIUM 2022-07-27 10:46:00 Flora Fox [facility] BASIC METABOLIC PANEL (NA, 2022-07-27 10:46:00 Flora Fox [facility] K, CL, CO2, GLUCOSE, BUN, Medica l Branch CREATININE, CA) N-TERMINAL PRO-BNP 2022-07-27 10:46:[address] [facility] MAGNESIUM 2022-07-27 10:46:00 [facility] (NA, 2022-07-27 10:46:00 [facility], CL, CO2, GLUCOSE, BUN, Medica l Branch CREATININE, CA) N-TERMINAL PRO-BNP 2022-07-27 10:46:00 [facility] POCT GLUCOSE (AUTOMATED) 2022-07-27 10:38:00 Berna Alcantar Uni versity of [facility] POCT GLUCOSE (AUTOMATED) 2022-07-27 10:38:00 KhKeo fernandezm Uni versity of [facility] POCT GLUCOSE (AUTOMATED) 2022-07-27 04:51:00 KhKeo fernandezm Uni versity of [facility] POCT GLUCOSE (AUTOMATED) 2022-07-27 04:51:00 Keo Alcantarm Uni versity of [facility] POCT GLUCOSE (AUTOMATED) 2022-07-27 01:10:00 Keo Alcantarm Uni versity of [facility] POCT GLUCOSE (AUTOMATED) 2022-07-27 01:10:00 KhKeo fernandezm Uni versity of [facility] POCT GLUCOSE (AUTOMATED) 2022-07-26 23:37:00 Keo Alcantarm Uni versity of [facility] POCT GLUCOSE (AUTOMATED) 2022-07-26 23:37:00 Berna Alcantar Uni versity of [facility] ACTIVATED PARTIAL THRMPLAS 2022-07-26 23:10:00 [facility] ACTIVATED PARTIAL THRMPLAS 2022-07-26 23:10:00 [facility] [place] [facility] CARDIAC CATHETERIZATION 2022-07-26 21:16:04 [facility] ersity of [facility] CARDIAC CATHETERIZATION 2022-07-26 21:16:04 [facility] CARDIAC CATHETERIZATION 2022-07-26 21:16:04 [facility] CARDIAC CATHETERIZATION 2022-07-26 21:16:04 [facility] ersity of [facility] CARDIAC CATHETERIZATION 2022-07-26 21:16:04 Katharine [facility] ersity of [facility] CARDIAC CATHETERIZATION 2022-07-26 21:16:04 [facility] CARDIAC CATHETERIZATION 2022-07-26 21:16:04 Katharine [facility] ersity of [facility] CARDIAC CATHETERIZATION 2022-07-26 21:16:04 Katharine [facility] ersity of [facility] CATH PROCEDURE LOG 2022-07-26 20:55:04 Katharine [facility] y of [facility] CATH PROCEDURE LOG 2022-07-26 20:55:04 Katharine [facility] POCT GLUCOSE (AUTOMATED) 2022-07-26 16:20:00 Berna Alcantar Uni versity of [facility] POCT GLUCOSE (AUTOMATED) 2022-07-26 16:20:00 Berna Alcantar Uni versity of [facility] POCT GLUCOSE (AUTOMATED) 2022-07-26 12:30:00 Berna Alcantar Uni versity of [facility] POCT GLUCOSE (AUTOMATED) 2022-07-26 12:30:00 Berna Alcantar Uni versity of [facility] POCT GLUCOSE (AUTOMATED) 2022-07-26 11:08:00 Berna Alcantar Uni versity of [facility] POCT GLUCOSE (AUTOMATED) 2022-07-26 11:08:00 Berna Alcantar Uni versity of [facility] POCT GLUCOSE (AUTOMATED) 2022-07-26 08:52:00 Berna Alcantar Uni versity of [facility] POCT GLUCOSE (AUTOMATED) 2022-07-26 08:52:00 Berna Alcantar Uni versity of [facility] MAGNESIUM 2022-07-26 05:35:00 [place], [facility] acute hospital BASIC METABOLIC PANEL (NA, 2022-07-26 05:35:00 Tobias [facility] K, CL, CO2, GLUCOSE, BUN, Medica l Branch CREATININE, CA) ACTIVATED PARTIAL THRMPLAS 2022-07-26 05:35:00 Evelio Soni [facility] [place] EXTRA TUBE LAV 2022-07-26 05:35:00 Katharine [facility] MAGNESIUM 2022-07-26 05:35:00 Tobias [facility] acute hospital BASIC METABOLIC PANEL (NA, 2022-07-26 05:35:00 Tobias [facility] K, CL, CO2, GLUCOSE, BUN, Medica l Branch CREATININE, CA) ACTIVATED PARTIAL THRMPLAS 2022-07-26 05:35:00 [facility] TUBE LAV 2022-07-26 05:35:00 Katharine [facility] [place] POCT GLUCOSE (AUTOMATED) 2022-07-26 05:20:00 [facility]) 2022-07-26 05:20:00 [facility] PO[facility]SE (AUTOMATED) 2022-07-26 01:45:00 Berna Alcantar Uni versity [facility] POCT GLUCOSE (AUTOMATED) 2022-07-26 01:45:00 [facility] MAG[facility] 2022-07-25 22:15:00 Tobias [facility] acute hospital BASIC METABOLIC PANEL (NA, 2022-07-25 22:15:00 Tobias [facility] K, CL, CO2, GLUCOSE, BUN, Medica l Branch CREATININE, CA) ACTIVATED PARTIAL THRMPLAS 2022-07-25 22:15:00 Evelio Soni [facility] [place] MAGNESIUM 2022-07-25 22:15:00 Tobias [facility] acute hospital BASIC METABOLIC PANEL (NA, 2022-07-25 22:15:00 Tobias [facility] K, CL, CO2, GLUCOSE, BUN, Medica l Branch CREATININE, CA) ACTIVATED PARTIAL THRMPLAS 2022-07-25 22:15:00 Evelio Soni niversalberto [facility] [place] POCT GLUCOSE (AUTOMATED) 2022-07-25 21:22:00 Berna Alcantar [facility] POCT GLUCOSE (AUTOMATED) 2022-07-25 21:22:00 Berna Alcantar [facility] POCT GLUCOSE (AUTOMATED) 2022-07-25 20:46:00 Berna Alcantar [facility] POCT GLUCOSE (AUTOMATED) 2022-07-25 20:46:00 Berna Alcantar [facility] POCT GLUCOSE (AUTOMATED) 2022-07-25 17:09:00 Berna Alcantar [facility] POCT GLUCOSE (AUTOMATED) 2022-07-25 17:09:00 Berna Alcantar Uni versity [facility] HB ECG ROUTINE & RHYTHM 2022-07-25 14:53:13 Berna Collado Uni versity [facility] ACTIVATED PARTIAL THRMPLAS 2022-07-25 14:53:00 Evelio Soni niversalberto [facility] [place] ACTIVATED PARTIAL THRMPLAS 2022-07-25 14:53:00 Evelio Soni niversalberto [facility] [place] POCT GLUCOSE (AUTOMATED) 2022-07-25 13:12:00 Berna Alcantar [facility] POCT GLUCOSE (AUTOMATED) 2022-07-25 13:12:00 Berna Alcantar [facility] MAGNESIUM 2022-07-25 11:36:00 [facility] BASIC METABOLIC PANEL (NA, 2022-07-25 11:36:00 Tobias [facility] K, CL, CO2, GLUCOSE, BUN, Medica l Branch CREATININE, CA) CBC WITH DIFF 2022-07-25 11:36:00 [facility]ias [facility] MAGNESIUM 2022-07-25 11:36:00 [facility]ias [facility] BASIC METABOLIC PANEL (NA, 2022-07-25 11:36:00 Tobias [facility] K, CL, CO2, GLUCOSE, BUN, Medica l Branch CREATININE, CA) CBC WITH DIFF 2022-07-25 11:36:00 [facility]ias [facility] ACTIVATED PARTIAL THRMPLAS 2022-07-25 05:15:00 Evelio Soni [facility] [place] ACTIVATED PARTIAL THRMPLAS 2022-07-25 05:15:00 [facility]) 2022-07-25 01:58:00 Berna Alcantar [facility] POCT GLUCOSE (AUTOMATED) 2022-07-25 01:58:00 Berna Alcantar Uni [facility] MAGNESIUM 2022-07-24 22:34:00 [facility]ias [facility] BASIC METABOLIC PANEL (NA, 2022-07-24 22:34:00 Tobias [facility] K, CL, CO2, GLUCOSE, BUN, Medica l Branch CREATININE, CA) ACTIVATED PARTIAL THRMPLAS 2022-07-24 22:34:00 Evelio Soni [facility] [place] MAGNESIUM 2022-07-24 22:34:00 [facility]ias [facility] BASIC METABOLIC PANEL (NA, 2022-07-24 22:34:00 Tobias [facility] K, CL, CO2, GLUCOSE, BUN, Medica l Branch CREATININE, CA) ACTIVATED PARTIAL THRMPLAS 2022-07-24 22:34:00 Evelio Soni [facility] [place] POCT GLUCOSE (AUTOMATED) 2022-07-24 20:43:00 Berna Alcantar [facility] POCT GLUCOSE (AUTOMATED) 2022-07-24 20:43:00 Berna Alcantar [facility] POCT GLUCOSE (AUTOMATED) 2022-07-24 17:11:00 Berna Alcantar [facility] POCT GLUCOSE (AUTOMATED) 2022-07-24 17:11:00 Berna Alcantar [facility] POCT GLUCOSE (AUTOMATED) 2022-07-24 14:11:00 AvinashaliBerna rodriguez [facility] POCT GLUCOSE (AUTOMATED) 2022-07-24 14:11:00 [facility]ar [facility] ACTIVATED PARTIAL THRMPLAS 2022-07-24 11:37:00 Evelio Soni [facility] ACTIVATED PARTIAL THRMPLAS 2022-07-24 11:37:00 Evleio Soni [facility] [place] MAGNESIUM 2022-07-24 05:51:00 Evelio Soni [facility] BASIC METABOLIC PANEL (NA, 2022-07-24 05:51:00 [facility] K, CL, CO2, GLUCOSE, BUN, Medica l Branch CREATININE, CA) PROTHROMBIN TIME / INR 2022-07-24 05:51:00 Evelio Soni [facility] ACTIVATED PARTIAL THRMPLAS 2022-07-24 05:51:00 [facility] 2022-07-24 05:51:00 Evelio Soni [facility] BASIC METABOLIC PANEL (NA, 2022-07-24 05:51:00 Evelio Soni [facility] K, CL, CO2, GLUCOSE, BUN, Medica l Branch CREATININE, CA) PROTHROMBIN TIME / INR 2022-07-24 05:51:00 Evelio Soni [facility] ACTIVATED PARTIAL THRMPLAS 2022-07-24 05:51:00 Evelio Soni [facility] POCT GLUCOSE (AUTOMATED) 2022-07-24 01:53:00 Atul Stephens Rafaela [facility] POCT GLUCOSE (AUTOMATED) 2022-07-24 01:53:00 [facility]ul Stephens [facility]) 2022-07-23 21:31:00 Atul Stephens [facility]SE (AUTOMATED) 2022-07-23 21:31:00 Atul Stephens [facility]UCOSE (AUTOMATED) 2022-07-23 17:08:00 Atul Stephens [facility]SE (AUTOMATED) 2022-07-23 17:08:00 Atul Stephens Rafaela [facility] POCT GLUCOSE (AUTOMATED) 2022-07-23 12:46:00 Atul Stephens Rafaela [facility] POCT GLUCOSE (AUTOMATED) 2022-07-23 12:46:00 Atul Stephens Rafaela [facility] MAGNESIUM 2022-07-23 09:15:00 [facility] (NA, 2022-07-23 09:15:00 [facility], [facility], CO2, GLUCOSE, BUN, Medica l Branch CREATININE, CA) CBC WITH DIFF 2022-07-23 09:15:00 [facility] N-[facility]MINAL PRO-BNP 2022-07-23 09:15:00 George Vizcaino [facility] MAGNESIUM 2022-07-23 09:15:00 [facility] BASIC METABOLIC PANEL (NA, 2022-07-23 09:15:00 [facility] K, CL, CO2, GLUCOSE, BUN, Medica l Branch CREATININE, CA) CBC WITH DIFF 2022-07-23 09:15:00 [facility] N-TERMINAL PRO-BNP 2022-07-23 09:15:00 George Vizcaino [facility] POCT GLUCOSE (AUTOMATED) 2022-07-23 02:12:00 Atul Stephens [facility] POCT GLUCOSE (AUTOMATED) 2022-07-23 02:12:00 Atul Stephens [facility] POCT GLUCOSE (AUTOMATED) 2022-07-22 21:12:00 Atul Stephens Rafaela [facility] POCT GLUCOSE (AUTOMATED) 2022-07-22 21:12:00 Atul Stephens [facility] POCT GLUCOSE (AUTOMATED) 2022-07-22 16:30:00 Atul Stephens Rafaela [facility] POCT GLUCOSE (AUTOMATED) 2022-07-22 16:30:00 Atul Stephens [facility] POCT GLUCOSE (AUTOMATED) 2022-07-22 12:51:00 Atul Stephens [facility] POCT GLUCOSE (AUTOMATED) 2022-07-22 12:51:00 Atul Stephens [facility] PHOSPHORUS 2022-07-22 08:19:00 Atul Stephens [facility] MAGNESIUM 2022-07-22 08:19:00 [facility] HEPATIC FUNCTION PANEL 2022-07-22 08:19:00 Atul Stephens [facility] ([id number]) (ALB,T.PRO,BILI Medical Branch T,BU/BC,ALT,AST,ALK PHOS) BASIC METABOLIC PANEL (NA, 2022-07-22 08:19:00 Atul Stephens [facility] K, CL, CO2, GLUCOSE, BUN, Medica l Branch CREATININE, CA) CBC WITH DIFF 2022-07-22 08:19:00 [facility] PRO-BNP 2022-07-22 08:19:[address] [facility] PHOSPHORUS 2022-07-22 08:19:00 Atul Stephens [facility] MAGNESIUM 2022-07-22 08:19:00 [facility] HEPATIC FUNCTION PANEL 2022-07-22 08:19:00 Atul Stephens [facility] ([id number]) (ALB,T.PRO,BILI Medical Branch T,BU/BC,ALT,AST,ALK PHOS) BASIC METABOLIC PANEL (NA, 2022-07-22 08:19:00 Atul Stephens [facility] K, CL, CO2, GLUCOSE, BUN, Medica l Branch CREATININE, CA) CBC WITH DIFF 2022-07-22 08:19:00 Atul Stephens o f [facility] N-TERMINAL PRO-BNP 2022-07-22 08:19:[address] [facility] POCT GLUCOSE (AUTOMATED) 2022-07-22 01:44:00 Atul Stephens [facility] POCT GLUCOSE (AUTOMATED) 2022-07-22 01:44:00 Atul Stephens [facility] POCT GLUCOSE (AUTOMATED) 2022-07-21 21:52:00 Atul Stephens [facility] POCT GLUCOSE (AUTOMATED) 2022-07-21 21:52:00 Atul Stephens [facility] POCT GLUCOSE (AUTOMATED) 2022-07-21 16:43:00 Atul Stephens [facility] POCT GLUCOSE (AUTOMATED) 2022-07-21 16:43:00 Atul Stephens [facility] TRANSTHORACIC ECHO (TTE) 2022-07-21 15:28:00 [facility] COMPLETE W/ CONTRAST [facility] TRANSTHORACIC ECHO (TTE) 2022-07-21 15:28:00 [facility] COMPLETE W/ CONTRAST [facility] POCT GLUCOSE (AUTOMATED) 2022-07-21 15:00:00 Atul Stephens [facility] POCT GLUCOSE (AUTOMATED) 2022-07-21 15:00:00 Atul Stephens [facility] POCT GLUCOSE (AUTOMATED) 2022-07-21 13:04:00 Atul Stephens [facility] POCT GLUCOSE (AUTOMATED) 2022-07-21 13:04:00 Atul Stephens [facility] MAGNESIUM 2022-07-21 09:41:00 Atul Stephens [facility] TROPONIN I 2022-07-21 09:41:00 Atul Stephens [facility] BASIC METABOLIC PANEL (NA, 2022-07-21 09:41:00 Atul Stephens [facility] K, CL, CO2, GLUCOSE, BUN, Medica l Branch CREATININE, CA) LIPID PANEL ([id number])(TOTAL 2022-07-21 09:41:00 [facility], [facility] TRIGLYCERIDES, HDL) CBC WITH DIFF 2022-07-21 09:41:00 Atul Stephens [facility] N-TERMINAL PRO-BNP 2022-07-21 09:41:[address] [facility] MAGNESIUM 2022-07-21 09:41:00 Atul Stephens [facility] TROPONIN I 2022-07-21 09:41:00 Atul Stephens [facility] BASIC METABOLIC PANEL (NA, 2022-07-21 09:41:00 Atul Stephens [facility] K, CL, CO2, GLUCOSE, BUN, Medica l Branch CREATININE, CA) LIPID PANEL (04183)(TOTAL 2022-07-21 09:41:00 Ana Luisa Grimm [facility] CHOLESTEROL, Medical [place] TRIGLYCERIDES, HDL) CBC WITH DIFF 2022-07-21 09:41:00 Atul Stephens [facility] N-TERMINAL PRO-BNP 2022-07-21 09:41:[address] [facility] POCT GLUCOSE (AUTOMATED) 2022-07-21 04:09:00 Atul Stephens [facility] POCT GLUCOSE (AUTOMATED) 2022-07-21 04:09:00 Atul Stephens [facility] BLOOD CULTURE SCREEN 2022-07-21 01:45:00 Atul Stephens [facility] BLOOD CULTURE WORKUP 2022-07-21 01:45:00 Atul Stephens [facility] GRAM POSITIVE BLOOD 2022-07-21 01:45:00 Atul Stephens [facility] PATHOGENS DNA [facility] PROBE-AEROBIC BLOOD CULTURE SCREEN 2022-07-21 01:45:00 Atul Stephens [facility] BLOOD CULTURE WORKUP 2022-07-21 01:45:00 Atul Stephens [facility] GRAM POSITIVE BLOOD 2022-07-21 01:45:00 Atul Stephens [facility] PATHOGENS DNA [facility] PROBE-AEROBIC POCT GLUCOSE (AUTOMATED) 2022-07-21 01:26:00 Atul Stephens [facility] POCT GLUCOSE (AUTOMATED) 2022-07-21 01:26:00 Atul Stephens [facility] BLOOD CULTURE SCREEN 2022-07-20 23:43:00 Atul Stephens [facility] BLOOD CULTURE SCREEN 2022-07-20 23:43:00 Atul Stephens [facility] POCT GLUCOSE (AUTOMATED) 2022-07-20 22:24:00 Atul Stephens [facility] POCT GLUCOSE (AUTOMATED) 2022-07-20 22:24:00 Atul Stephens [facility] URINALYSIS 2022-07-20 17:41:[address] [facility] URINALYSIS 2022-07-20 17:41:[address] [facility] XR CHEST 1 VW 2022-07-20 16:16:[address] [facility] XR CHEST 1 VW 2022-07-20 16:16:[address] [facility] TROPONIN I 2022-07-20 16:10:[address] [facility] COMP. METABOLIC PANEL 2022-07-20 16:10:00 [facility]t [facility] ([id number]) [facility] CBC WITH DIFF 2022-07-20 16:10:[address] [facility] GLYCOSYLATED HEMOGLOBIN 2022-07-20 16:10:00 Atul Stephens [facility] (A1C) Medical Branch PROTHROMBIN TIME / INR 2022-07-20 16:10:00 Charlene Butt [facility] ACTIVATED PARTIAL THRMPLAS 2022-07-20 16:10:00 Saniya Butt [facility] N-TERMINAL PRO-BNP 2022-07-20 16:10:00 Charlene Butt [facility] acute hospital COVID-19 (ID NOW RAPID 2022-07-20 16:10:00 Charlene Butt [facility] TESTING) Medical Branch LAB ONLY COVID 2022-07-20 16:10:[address] [facility] TROPONIN I 2022-07-20 16:10:[address] [facility] COMP. METABOLIC PANEL 2022-07-20 16:10:00 Charlene Butt [facility] ([id number]) Medical Branch CBC WITH DIFF 2022-07-20 16:10:[address] [facility] GLYCOSYLATED HEMOGLOBIN 2022-07-20 16:10:00 Atul Stephens [facility] (A1C) Medical Branch PROTHROMBIN TIME / INR 2022-07-20 16:10:00 Charlene Butt [facility] ACTIVATED PARTIAL THRMPLAS 2022-07-20 16:10:00 Saniya Butt [facility] N-TERMINAL PRO-BNP 2022-07-20 16:10:00 Charlene Butt [facility] acute hospital COVID-19 (ID NOW RAPID 2022-07-20 16:10:00 Charlene Butt [facility] TESTING) Medical Branch LAB ONLY COVID 2022-07-20 16:10:00 Charlene Butt [facility] INTERPRETATION Medical Branch HB ECG ROUTINE & RHYTHM 2022-07-20 16:05:41 Charlene Butt [facility] HB ECG ROUTINE & RHYTHM 2022-07-20 16:05:41 Charlene Butt [facility] NOTICE OF PRIVACY 2022-07-20 15:52:39 Doctor Unassigned, [facility] [place] NOTICE OF PRIVACY 2022-07-20 15:52:39 Doctor Unassigned, [facility] [place] HOSPITAL ADMISSION 2022-07-20 05:01:00 Doctor Unassigned, [facility] HOSPITAL ADMISSION 2022-07-20 05:01:00 Doctor Unassigned, [facility] [place] Encounters Start End Encounter Admission Attending Care Care Encounter Source Date/Time Date/Time Type Type Clinicians Facility Department ID 2022-09-03 Outpatient [id number] [place] [id number] [facility] 08:24:57 [facility] [place] 2022-09-02 Outpatient 3 [id number] [facility] REF [id number] [facility] 14:07:05 [facility] [place] 2021-12-05 Outpatient [facility]ILAGROS [facility] [id number] [facility] 11:06:38 Meghana [address] [facility] 2022-08-15 2022-08-28 Inpatient 3 Julio, ENC[facility] CRD [id number] [facility] 18:17:00 12:00:00 Jose [facility] [place] 2022-07-29 2022-07-29 Transition ARIANE FosterKhadar [id number] Univers 00:00:00 00:00:00 of Care La BUSH [id number] it y of ARSLANZA 4.2.7.2.686 [facility] [id number] [facility] 403 Branch 2022-07-20 2022-07-27 Hospital Charlene Butt 1.2.84 [id number] [id number] Univers 11:00:00 21:45:00 Encounter Atul Stephens [id number] [facility] 4.2.7.2 .686 [place] [id number] [facility] 089 Branch 2022-07-20 2022-07-27 Inpatient X KATHARINE LAUREL [facility] [id number] Univers 11:00:00 21:45:00 [place] ity [facility] 2022-07-26 2022-07-26 Surgery JAMAL Cannon [id number] Univers 18:03:00 21:03:00 [place] GORDON [id number] it y [facility] 4.2.7.2.686 Jonathan as [id number] [facility] 840 Branch 2020-04-04 2020-04-04 [facility] [id number] Common 13:00:00 13:00:[address] [facility] 2020-03-22 2020-03-22 [facility] [id number] Common 15:20:00 15:20:[address] [facility] 2019-12-22 2019-12-22 [facility] [id number] Common 10:40:00 10:40:[address] [facility] 2019-12-15 2019-12-15 [facility] [id number] Common 14:00:00 14:00:[address] [facility] 2019-09-14 2019-09-14 [facility] [id number] Common 13:20:00 13:20:[address] [facility] 2019-05-11 2019-05-11 [facility] [id number] Common 13:00:00 13:00:[address] [facility] 2018-11-11 2018-11-11 [facility] [id number] Common 13:00:00 13:00:[address] [facility] 2018-10-19 2018-10-19 [facility] [id number] Common 08:30:00 08:30:[address] [facility] 2018-04-22 2018-04-22 Outpatient Lynsey Velez [id number] Common 14:00:00 14:00:00 [facility] it [facility]ly [facility] Results Test Description Test Time Test Comments Results Result Comments Source POCT GLUCOSE (AUTOMATED) 2022-07-27 17:05:15 Test Item Value Reference Range Interpretation Comme nts POCT GLU (test code = 3300310584) 264 mg/dL 70-110 H Lab Interpretation (test code = 75504-1) [facility] 17:05:15 Test Item Value Reference Range Interpretation Comments POCT GLU (test code = 2994535576) 264 mg/dL 70-110 H Lab Interpretation (test code = Abnormal 28482-5) [facility] [id number] 15:17:32 Test Item Value Reference Range Interpretation Comments NT-proBNP (test code 1090 pg/mL See_Comment H [Autom ated = 5183046432) message] The system which generated this result transmitted reference range : <=125. The reference range was not used to interpret this result as normal/abnormal . ROSLYN (test code = ROSLYN) Biotin has been reported to cause a negative bias, interpret results relative to patient's use of biotin. Lab Interpretation Abnormal (test code = 22659-9) [facility] [id number] 15:17:32 Test Item Value Reference Range Interpretation Comments NT-proBNP (test code 1090 pg/mL See_Comment H [Autom ated = 8038339819) message] The system which generated this result transmitted reference range : <=125. The reference range was not used to interpret this result as normal/abnormal . ROSLYN (test code = ROSLYN) Biotin has been reported to cause a negative bias, interpret results relative to patient's use of biotin. Lab Interpretation Abnormal (test code = 04696-2) [facility] 11:45:45 Test Item Value Reference Range Interpretation Comments MAGNESIUM (test code = 7782211933) 1.9 mg/dL 1.7-2.4 Lab Interpretation (test code = Normal 95587-2) [facility] (NA, K, CL, CO2, GLUCOSE, BUN, CREATININE, CA)2022-07-27 11:45:45 Test Item Value Reference Range Interpretation Comments NA (test code = 130 mmol/L 135-145 L 3807339796) K (test code = 4.1 mmol/L 3.5-5 8213582462) CL (test code = 89 mmol/L 98-108 L 9110841217) CO2 TOTAL (test code = 37 mmol/L 23-31 H 3915204149) AGAP (test code = 2-16 5691683652) BUN (test code = 32 mg/dL 7-23 H 9292238491) GLUCOSE (test code = 180 mg/dL 70-110 H 5652252681) CREATININE (test code = 0.81 mg/dL 0.6-1.25 8107135391) CALCIUM (test code = 8.5 mg/dL 8.6-10.6 L 7461794206) eGFR (test code = mL/min/1.73m2 7980160672) ROSLYN (test code = ROSLYN) Association of [...] tests). Lab Interpretation Abnormal (test code = 23485-4) [facility]17 11:45:45 Test Item Value Reference Range Interpretation Comments MAGNESIUM (test code = 5252087301) 1.9 mg/dL 1.7-2.4 Lab Interpretation (test code = Normal 07163-6) [facility] METABOLIC PANEL (NA, K, CL, CO2, GLUCOSE, BUN, CREATININE, CA)2022-07-27 11:45:45 Test Item Value Reference Range Interpretation Comments NA (test code = 130 mmol/L 135-145 L 7170413423) K (test code = 4.1 mmol/L 3.5-5 2669671133) CL (test code = 89 mmol/L 98-108 L 5739028889) CO2 TOTAL (test code = 37 mmol/L 23-31 H 1163895546) AGAP (test code = 2-16 1103022979) BUN (test code = 32 mg/dL 7-23 H 6663678469) GLUCOSE (test code = 180 mg/dL 70-110 H 4871524600) CREATININE (test code = 0.81 mg/dL 0.6-1.25 8460850018) CALCIUM (test code = 8.5 mg/dL 8.6-10.6 L 8550249015) eGFR (test code = mL/min/1.73m2 6368014407) ROSLYN (test code = ROSLYN) Association of [...] tests). Lab Interpretation Abnormal (test code = 83157-5) [facility] GLUCOSE (AUTOMATED)2022-07-27 10:39:46 Test Item Value Reference Range Interpretation Comments POCT GLU (test code = 0734478799) 198 mg/dL 70-110 H Lab Interpretation (test code = Abnormal 63922-2) [facility] GLUCOSE (AUTOMATED)2022-07-27 10:39:46 Test Item Value Reference Range Interpretation Comments POCT GLU (test code = 3172297421) 198 mg/dL 70-110 H Lab Interpretation (test code = Abnormal 67952-0) [facility] GLUCOSE (AUTOMATED)2022-07-27 04:52:50 Test Item Value Reference Range Interpretation Comments POCT GLU (test code = 1975587696) 213 mg/dL 70-110 H Lab Interpretation (test code = Abnormal 51433-0) [facility] GLUCOSE (AUTOMATED)2022-07-27 04:52:50 Test Item Value Reference Range Interpretation Comments POCT GLU (test code = 1231062076) 213 mg/dL 70-110 H Lab Interpretation (test code = Abnormal 80404-9) [facility] GLUCOSE (AUTOMATED)2022-07-27 01:10:58 Test Item Value Reference Range Interpretation Comments POCT GLU (test code = 2508847487) 284 mg/dL 70-110 H Lab Interpretation (test code = Abnormal 55264-8) [facility] GLUCOSE (AUTOMATED)2022-07-27 01:10:58 Test Item Value Reference Range Interpretation Comments POCT GLU (test code = 8256486410) 284 mg/dL 70-110 H Lab Interpretation (test code = Abnormal 28189-3) [facility] GLUCOSE (AUTOMATED)2022-07-26 23:39:10 Test Item Value Reference Range Interpretation Comments POCT GLU (test code = 6740021026) 199 mg/dL 70-110 H Lab Interpretation (test code = Abnormal 19338-2) [facility] GLUCOSE (AUTOMATED)2022-07-26 23:39:10 Test Item Value Reference Range Interpretation Comments POCT GLU (test code = 9904123855) 199 mg/dL 70-110 H Lab Interpretation (test code = Abnormal 86694-8) [facility]2022-07-26 23:32:33 Test Item Value Reference Range Interpretation Comments APTT Patient (test code = See_Comment [ Automated message] 3173-2) The system [employer] generated this result transmitted ref erence range: 26 - 36 Seconds. The re ference range was not u sed to interpret this result as normal/abnor mal. Lab Interpretation (test Normal code = 58270-9) [facility]2022-07-26 23:32:33 Test Item Value Reference Range Interpretation Comments APTT Patient (test code = See_Comment [ Automated message] 3173-2) The system [employer] generated this result transmitted ref erence range: 26 - 36 Seconds. The re ference range was not u sed to interpret this result as normal/abnor mal. Lab Interpretation (test Normal code = 03803-4) [facility] GLUCOSE (AUTOMATED)2022-07-26 16:22:25 Test Item Value Reference Range Interpretation Comments POCT GLU (test code = 2217410431) 167 mg/dL 70-110 H Lab Interpretation (test code = Abnormal 78206-6) [facility] GLUCOSE (AUTOMATED)2022-07-26 16:22:25 Test Item Value Reference Range Interpretation Comments POCT GLU (test code = 5264337889) 167 mg/dL 70-110 H Lab Interpretation (test code = Abnormal 50380-6) [facility] GLUCOSE (AUTOMATED)2022-07-26 12:31:04 Test Item Value Reference Range Interpretation Comments POCT GLU (test code = 6716554175) 164 mg/dL 70-110 H Lab Interpretation (test code = Abnormal 14596-0) [facility] GLUCOSE (AUTOMATED)2022-07-26 12:31:04 Test Item Value Reference Range Interpretation Comments POCT GLU (test code = 0834713759) 164 mg/dL 70-110 H Lab Interpretation (test code = Abnormal 70038-2) [facility] GLUCOSE (AUTOMATED)2022-07-26 11:09:37 Test Item Value Reference Range Interpretation Comments POCT GLU (test code = 2537975633) 184 mg/dL 70-110 H Lab Interpretation (test code = Abnormal 45678-3) [facility] GLUCOSE (AUTOMATED)2022-07-26 11:09:37 Test Item Value Reference Range Interpretation Comments POCT GLU (test code = 3600751409) 184 mg/dL 70-110 H Lab Interpretation (test code = Abnormal 97907-1) [facility] GLUCOSE (AUTOMATED)2022-07-26 08:53:59 Test Item Value Reference Range Interpretation Comments POCT GLU (test code = 0455847513) 200 mg/dL 70-110 H Lab Interpretation (test code = Abnormal 45879-1) [facility] GLUCOSE (AUTOMATED)2022-07-26 08:53:59 Test Item Value Reference Range Interpretation Comments POCT GLU (test code = 9784094749) 200 mg/dL 70-110 H Lab Interpretation (test code = Abnormal 43696-5) [facility] GLUCOSE (AUTOMATED)2022-07-26 05:20:56 Test Item Value Reference Range Interpretation Comments POCT GLU (test code = 0097241970) 197 mg/dL 70-110 H Lab Interpretation (test code = Abnormal 97152-1) [facility] GLUCOSE (AUTOMATED)2022-07-26 05:20:56 Test Item Value Reference Range Interpretation Comments POCT GLU (test code = 8595707698) 197 mg/dL 70-110 H Lab Interpretation (test code = Abnormal 27862-0) [id number]:01:42 Test Item Value Reference Range Interpretation Comments Blood Culture-Aerobic No organisms No growth Previo us (test code = 05525-9) isolated prelim inary verified result was Culture [...] Culture-Anaerobic isolated preliminar y (test code = 09234-7) verifi ed result was Culture In Progress [...] CDT Lab Interpretation Normal (test code = 64237-7) [facility] CULTURE [id number] 03:01:42 Test Item Value Reference Range Interpretation Comments Blood Culture-Aerobic No organisms No growth Previo us (test code = 19632-6) isolated prelim inary verified result was Culture [...] Culture-Anaerobic isolated preliminar y (test code = 32588-7) verifi ed result was Culture In Progress [...] CDT Lab Interpretation Normal (test code = 04139-8) [facility] GLUCOSE (AUTOMATED)2022-07-26 01:46:28 Test Item Value Reference Range Interpretation Comments POCT GLU (test code = 1402615827) 142 mg/dL 70-110 H Lab Interpretation (test code = Abnormal 16602-7) [facility] GLUCOSE (AUTOMATED)2022-07-26 01:46:28 Test Item Value Reference Range Interpretation Comments POCT GLU (test code = 9639476319) 142 mg/dL 70-110 H Lab Interpretation (test code = Abnormal 55488-0) [facility] GLUCOSE (AUTOMATED)2022-07-25 21:23:27 Test Item Value Reference Range Interpretation Comments POCT GLU (test code = 7924166162) 159 mg/dL 70-110 H Lab Interpretation (test code = Abnormal 82960-3) [facility] GLUCOSE (AUTOMATED)2022-07-25 21:23:27 Test Item Value Reference Range Interpretation Comments POCT GLU (test code = 8223308968) 159 mg/dL 70-110 H Lab Interpretation (test code = Abnormal 09568-7) [facility] GLUCOSE (AUTOMATED)2022-07-25 20:47:32 Test Item Value Reference Range Interpretation Comments POCT GLU (test code = 5749535456) 151 mg/dL 70-110 H Lab Interpretation (test code = Abnormal 81688-2) [facility] GLUCOSE (AUTOMATED)2022-07-25 20:47:32 Test Item Value Reference Range Interpretation Comments POCT GLU (test code = 4208546660) 151 mg/dL 70-110 H Lab Interpretation (test code = Abnormal 67053-8) [facility] GLUCOSE (AUTOMATED)2022-07-25 17:16:01 Test Item Value Reference Range Interpretation Comments POCT GLU (test code = 9844389068) 389 mg/dL 70-110 H Lab Interpretation (test code = Abnormal 68765-4) [facility] GLUCOSE (AUTOMATED)2022-07-25 17:16:01 Test Item Value Reference Range Interpretation Comments POCT GLU (test code = 1997691979) 389 mg/dL 70-110 H Lab Interpretation (test code = Abnormal 52506-0) [facility] 15:08:51 Test Item Value Reference Range Interpretation Comments APTT Patient (test code = See_Comment [ Automated message] 3173-2) The system [employer] generated this result transmitted ref erence range: 26 - 36 Seconds. The re ference range was not u sed to interpret this result as normal/abnor mal. Lab Interpretation (test Normal code = 82656-6) [facility]22-[facility]-25 15:08:51 Test Item Value Reference Range Interpretation Comments APTT Patient (test code = See_Comment [ Automated message] 3173-2) The system [employer] generated this result transmitted ref erence range: 26 - 36 Seconds. The re ference range was not u sed to interpret this result as normal/abnor mal. Lab Interpretation (test Normal code = 47357-2) [facility] GLUCOSE (AUTOMATED)2022-07-25 13:22:34 Test Item Value Reference Range Interpretation Comments POCT GLU (test code = 9349047217) 168 mg/dL 70-110 H Lab Interpretation (test code = Abnormal 20978-1) [facility] GLUCOSE (AUTOMATED)2022-07-25 13:22:34 Test Item Value Reference Range Interpretation Comments POCT GLU (test code = 7643105044) 168 mg/dL 70-110 H Lab Interpretation (test code = Abnormal 99695-3) [facility] GLUCOSE (AUTOMATED)2022-07-25 01:59:34 Test Item Value Reference Range Interpretation Comments POCT GLU (test code = 6707997002) 202 mg/dL 70-110 H Lab Interpretation (test code = Abnormal 96588-6) [facility] GLUCOSE (AUTOMATED)2022-07-25 01:59:34 Test Item Value Reference Range Interpretation Comments POCT GLU (test code = 7075757324) 202 mg/dL 70-110 H Lab Interpretation (test code = Abnormal 80816-2) [facility] METABOLIC PANEL (NA, K, CL, CO2, GLUCOSE, BUN, CREATININE, CA)2022-07-24 23:06:12 Test Item Value Reference Range Interpretation Comments NA (test code = 135 mmol/L 135-145 2736578609) K (test code = 4.1 mmol/L 3.5-5 1008097168) CL (test code = 95 mmol/L 98-108 L 0381675517) CO2 TOTAL (test code = 39 mmol/L 23-31 H 6208934925) AGAP (test code = 2-16 L 0933379403) BUN (test code = 16 mg/dL 7-23 9313916790) GLUCOSE (test code = 140 mg/dL 70-110 H 5495523318) CREATININE (test code = 0.59 mg/dL 0.6-1.25 L 5088742154) CALCIUM (test code = 8.4 mg/dL 8.6-10.6 L 0271368044) eGFR (test code = mL/min/1.73m2 3628463182) ROSLYN (test code = ROSLYN) Association of [...] tests). Lab Interpretation Abnormal (test code = 78693-6) [facility] Test Item Value Reference Range Interpretation Comments MAGNESIUM (test code = 4327584539) 2.1 mg/dL 1.7-2.4 Lab Interpretation (test code = Normal 60146-3) [facility] METABOLIC PANEL (NA, K, CL, CO2, GLUCOSE, BUN, CREATININE, CA)2022-07-24 23:06:12 Test Item Value Reference Range Interpretation Comments NA (test code = 135 mmol/L 135-145 3250745275) K (test code = 4.1 mmol/L 3.5-5 7629170239) CL (test code = 95 mmol/L 98-108 L 7845225745) CO2 TOTAL (test code = 39 mmol/L 23-31 H 1399794053) AGAP (test code = 2-16 L 8880967885) BUN (test code = 16 mg/dL 7-23 8965108081) GLUCOSE (test code = 140 mg/dL 70-110 H 9430897079) CREATININE (test code = 0.59 mg/dL 0.6-1.25 L 6651934647) CALCIUM (test code = 8.4 mg/dL 8.6-10.6 L 7083641009) eGFR (test code = mL/min/1.73m2 8517275984) ROSLYN (test code = ROSLYN) Association of [...] tests). Lab Interpretation Abnormal (test code = 92964-1) [facility]12 Test Item Value Reference Range Interpretation Comments MAGNESIUM (test code = 9672015401) 2.1 mg/dL 1.7-2.4 Lab Interpretation (test code = Normal 31026-8) [facility] (for use with Heparin Infusion)2022-07-24 23:00:29 Test Item Value Reference Range Interpretation Comments APTT Patient (test code See_Comment H [Au tomated message] = 3173-2) The system [employer] generated this result transmitted ref erence range: 26 - 36 Seconds. The reference range was not used to int erpret this result as normal/abnormal . Lab Interpretation (test Abnormal code = 81629-0) [facility] (for use with Heparin Infusion)2022-07-24 23:00:29 Test Item Value Reference Range Interpretation Comments APTT Patient (test code See_Comment H [Au tomated message] = 3173-2) The system [employer] generated this result transmitted ref erence range: 26 - 36 Seconds. The reference range was not used to int erpret this result as normal/abnormal . Lab Interpretation (test Abnormal code = 75790-6) [facility] GLUCOSE (AUTOMATED)2022-07-24 20:44:06 Test Item Value Reference Range Interpretation Comments POCT GLU (test code = 6769262008) 161 mg/dL 70-110 H Lab Interpretation (test code = Abnormal 76169-6) [facility] GLUCOSE (AUTOMATED)2022-07-24 20:44:06 Test Item Value Reference Range Interpretation Comments POCT GLU (test code = 7017054064) 161 mg/dL 70-110 H Lab Interpretation (test code = Abnormal 18696-0) [facility] GLUCOSE (AUTOMATED)2022-07-24 17:17:45 Test Item Value Reference Range Interpretation Comments POCT GLU (test code = 2926869281) 257 mg/dL 70-110 H Lab Interpretation (test code = Abnormal 03296-0) [facility] GLUCOSE (AUTOMATED)2022-07-24 17:17:45 Test Item Value Reference Range Interpretation Comments POCT GLU (test code = 3813731115) 257 mg/dL 70-110 H Lab Interpretation (test code = Abnormal 48396-1) [facility] GLUCOSE (AUTOMATED)2022-07-24 14:12:13 Test Item Value Reference Range Interpretation Comments POCT GLU (test code = 8217196508) 201 mg/dL 70-110 H Lab Interpretation (test code = Abnormal 18939-1) [facility] GLUCOSE (AUTOMATED)2022-07-24 14:12:13 Test Item Value Reference Range Interpretation Comments POCT GLU (test code = 8345648593) 201 mg/dL 70-110 H Lab Interpretation (test code = Abnormal 40761-3) [facility] GLUCOSE (AUTOMATED)2022-07-24 01:57:51 Test Item Value Reference Range Interpretation Comments POCT GLU (test code = 5534864249) 214 mg/dL 70-110 H Lab Interpretation (test code = Abnormal 97613-0) [facility] GLUCOSE (AUTOMATED)2022-07-24 01:57:51 Test Item Value Reference Range Interpretation Comments POCT GLU (test code = 4068227707) 214 mg/dL 70-110 H Lab Interpretation (test code = Abnormal 06217-4) [facility] GLUCOSE (AUTOMATED)2022-07-23 21:55:56 Test Item Value Reference Range Interpretation Comments POCT GLU (test code = 0279953968) 184 mg/dL 70-110 H Lab Interpretation (test code = Abnormal 65073-8) [facility] GLUCOSE (AUTOMATED)2022-07-23 21:55:56 Test Item Value Reference Range Interpretation Comments POCT GLU (test code = 1551504158) 184 mg/dL 70-110 H Lab Interpretation (test code = Abnormal 08240-7) [facility] GLUCOSE (AUTOMATED)2022-07-23 17:27:48 Test Item Value Reference Range Interpretation Comments POCT GLU (test code = 0409571704) 259 mg/dL 70-110 H Lab Interpretation (test code = Abnormal 91290-3) [facility] GLUCOSE (AUTOMATED)2022-07-23 17:27:48 Test Item Value Reference Range Interpretation Comments POCT GLU (test code = 7704751441) 259 mg/dL 70-110 H Lab Interpretation (test code = Abnormal 11641-1) [facility] GLUCOSE (AUTOMATED)2022-07-23 13:05:59 Test Item Value Reference Range Interpretation Comments POCT GLU (test code = 4313611797) 154 mg/dL 70-110 H Lab Interpretation (test code = Abnormal 30717-9) [facility] GLUCOSE (AUTOMATED)2022-07-23 13:05:59 Test Item Value Reference Range Interpretation Comments POCT GLU (test code = 8460584366) 154 mg/dL 70-110 H Lab Interpretation (test code = Abnormal 00040-4) [facility] GLUCOSE (AUTOMATED)2022-07-23 09:58:20 Test Item Value Reference Range Interpretation Comments POCT GLU (test code = 2760718068) 177 mg/dL 70-110 H Lab Interpretation (test code = Abnormal 39599-7) [facility] GLUCOSE (AUTOMATED)2022-07-23 09:58:20 Test Item Value Reference Range Interpretation Comments POCT GLU (test code = 5304740869) 177 mg/dL 70-110 H Lab Interpretation (test code = Abnormal 98866-1) [facility] GLUCOSE (AUTOMATED)2022-07-22 21:30:57 Test Item Value Reference Range Interpretation Comments POCT GLU (test code = 1201920878) 194 mg/dL 70-110 H Lab Interpretation (test code = Abnormal 11261-5) [facility] GLUCOSE (AUTOMATED)2022-07-22 21:30:57 Test Item Value Reference Range Interpretation Comments POCT GLU (test code = 6016006875) 194 mg/dL 70-110 H Lab Interpretation (test code = Abnormal 12403-5) [facility] GLUCOSE (AUTOMATED)2022-07-22 16:52:50 Test Item Value Reference Range Interpretation Comments POCT GLU (test code = 2509175891) 197 mg/dL 70-110 H Lab Interpretation (test code = Abnormal 71301-4) [facility] GLUCOSE (AUTOMATED)2022-07-22 16:52:50 Test Item Value Reference Range Interpretation Comments POCT GLU (test code = 8581971643) 197 mg/dL 70-110 H Lab Interpretation (test code = Abnormal 75629-7) [facility] GLUCOSE (AUTOMATED)2022-07-22 13:22:34 Test Item Value Reference Range Interpretation Comments POCT GLU (test code = 8467669918) 150 mg/dL 70-110 H Lab Interpretation (test code = Abnormal 72071-9) [facility] GLUCOSE (AUTOMATED)2022-07-22 13:22:34 Test Item Value Reference Range Interpretation Comments POCT GLU (test code = 8664519697) 150 mg/dL 70-110 H Lab Interpretation (test code = Abnormal 25460-1) [id number] 09:38:27 Test Item Value Reference Range Interpretation Comments NT-proBNP (test code 2160 pg/mL See_Comment H [Autom ated = 7540137604) message] The system which generated this result transmitted reference range : <=125. The reference range was not used to interpret this result as normal/abnormal . ROSLYN (test code = ROSLYN) Biotin has been reported to cause a negative bias, interpret results relative to patient's use of biotin. Lab Interpretation Abnormal (test code = 74383-0) [id number] 09:38:27 Test Item Value Reference Range Interpretation Comments NT-proBNP (test code 2160 pg/mL See_Comment H [Autom ated = 7911545701) message] The system which generated this result transmitted reference range : <=125. The reference range was not used to interpret this result as normal/abnormal . ROSLYN (test code = ROSLYN) Biotin has been reported to cause a negative bias, interpret results relative to patient's use of biotin. Lab Interpretation Abnormal (test code = 37978-2) [facility] Test Item Value Reference Range Interpretation Comments MAGNESIUM (test code = 8458600370) 1.8 mg/dL 1.7-2.4 Lab Interpretation (test code = Normal 84282-5) [facility] 09:31:29 Test Item Value Reference Range Interpretation Comments MAGNESIUM (test code = 9711693152) 1.8 mg/dL 1.7-2.4 Lab Interpretation (test code = Normal 32070-1) [facility] METABOLIC PANEL (NA, K, CL, CO2, GLUCOSE, BUN, CREATININE, CA)2022-07-22 09:31:09 Test Item Value Reference Range Interpretation Comments NA (test code = 137 mmol/L 135-145 8765418445) K (test code = 4.0 mmol/L 3.5-5 1590644133) CL (test code = 98 mmol/L 98-108 6154145053) CO2 TOTAL (test code = 34 mmol/L 23-31 H 1376020043) AGAP (test code = 2-16 2885662393) BUN (test code = 16 mg/dL 7-23 8948681232) GLUCOSE (test code = 177 mg/dL 70-110 H 8460122022) CREATININE (test code = 0.66 mg/dL 0.6-1.25 4674707329) CALCIUM (test code = 8.2 mg/dL 8.6-10.6 L 3584066368) eGFR (test code = mL/min/1.73m2 2912595245) ROSLYN (test code = ROSLYN) Association of [...] tests). Lab Interpretation Abnormal (test code = 01522-9) [facility] METABOLIC PANEL (NA, K, CL, CO2, GLUCOSE, BUN, CREATININE, CA)2022-07-22 09:31:09 Test Item Value Reference Range Interpretation Comments NA (test code = 137 mmol/L 135-145 1592777231) K (test code = 4.0 mmol/L 3.5-5 9639939517) CL (test code = 98 mmol/L 98-108 0541200830) CO2 TOTAL (test code = 34 mmol/L 23-31 H 8723202765) AGAP (test code = 2-16 2248148303) BUN (test code = 16 mg/dL 7-23 6004055130) GLUCOSE (test code = 177 mg/dL 70-110 H 8175292068) CREATININE (test code = 0.66 mg/dL 0.6-1.25 3757575399) CALCIUM (test code = 8.2 mg/dL 8.6-10.6 L 0642214753) eGFR (test code = mL/min/1.73m2 1462279147) ROSLYN (test code = ROSLYN) Association of [...] tests). Lab Interpretation Abnormal (test code = 10723-5) [facility] (ALB,T.PRO,BILI T,BU/BC,ALT,AST,ALK PHOS)2022-07-22 09:30:44 Test Item Value Reference Range Interpretation Comments TOTAL BILI (test code = 3943483228) 1.2 mg/dL 0.1-1.1 H BILI UNCON (test code = 3256946217) 0.9 mg/dL 0.1-1.1 BILI CONJ (test code = 4554015174) 0.0 mg/dL 0-0.3 T PROTEIN (test code = 1329072355) 6.5 g/dL 6.3-8.2 ALBUMIN (test code = 2467223216) 3.7 g/dL 3.5-5 ALK PHOS (test code = 0779025143) 67 U/L 34-122 ALTv (test code = 1742-6) 33 U/L 5-50 AST(SGOT) (test code = 2545315421) 30 U/L 13-40 Lab Interpretation (test code = Abnormal 82569-4) [facility] 09:30:44 Test Item Value Reference Range Interpretation Comments PHOSPHORUS (test code = 2270602790) 3.6 mg/dL 2.5-5 Lab Interpretation (test code = Normal 53352-5) [facility]91017[facility] (ALB,T.PRO,BILI T,BU/BC,ALT,AST,ALK PHOS)2022-07-22 09:30:44 Test Item Value Reference Range Interpretation Comments TOTAL BILI (test code = 7062534475) 1.2 mg/dL 0.1-1.1 H BILI UNCON (test code = 7729455489) 0.9 mg/dL 0.1-1.1 BILI CONJ (test code = 6512154309) 0.0 mg/dL 0-0.3 T PROTEIN (test code = 2615549021) 6.5 g/dL 6.3-8.2 ALBUMIN (test code = 9147598200) 3.7 g/dL 3.5-5 ALK PHOS (test code = 5864096313) 67 U/L 34-122 ALTv (test code = 1742-6) 33 U/L 5-50 AST(SGOT) (test code = 3305512534) 30 U/L 13-40 Lab Interpretation (test code = Abnormal 60725-9) [facility] 09:30:44 Test Item Value Reference Range Interpretation Comments PHOSPHORUS (test code = 6171560655) 3.6 mg/dL 2.5-5 Lab Interpretation (test code = Normal 06666-8) [facility] WITH [id number] 09:23:08 Test Item Value Reference Range Interpretation Comments WBC (test code = See_Comment H [Automated 9280-2) message] The system which generated this result transmit artem reference range : 4.20 - 10.70 10*3/?L. The reference range was not used to interpret this result as normal/abnormal . RBC (test code = See_Comment [Automated 946-8) message] The system which generated this result [...] RDW-SD (test code = 46.6 fL 38.5-51.6 65227-0) RDW-CV (test code = 13.5 % 12.1-15.4 788-0) PLT (test code = See_Comment L [Automated 777-3) message] The system which generated this result transmit artem reference range : 150 - 328 10*3/ ?L. The reference range was not u sed to interpret th is result as normal/abnormal . MPV (test code = 12.7 fL 9.8-13 24172-4) NRBC/100 WBC (test See_Comment [Automat ed code = 6095642493) message] The system which generated this result transmit artem reference range : 0.0 - 10.0 /100 WBCs. The reference range was not used to interpret this result as normal/abnormal . NRBC x10^3 (test code See_Comment [Auto mated = 1328160632) message] The system which generated this result transmit artem reference range : 10*3/?L. The reference range was not used to interpret this result as normal/abnormal . GRAN MAT (NEUT) % 71.3 % (test code = 770-8) IMM GRAN % (test code 0.40 % = 6355466542) LYMPH % (test code = 17.4 % 736-9) MONO % (test code = 9.8 % 5905-5) EOS % (test code = 0.8 % 713-8) BASO % (test code = 0.3 % 706-2) GRAN MAT x10^3(ANC) 10.18 10*3/uL 1.99-6.95 H (test code = 6155194195) IMM GRAN x10^3 (test 0.06 10*3/uL 0-0.06 code = 6052865125) LYMPH x10^3 (test code 2.49 10*3/uL 1.09-3.23 = 731-0) MONO x10^3 (test code 1.40 10*3/uL 0.36-1.02 H = 742-7) EOS x10^3 (test code = 0.11 10*3/uL 0.06-0.53 711-2) BASO x10^3 (test code 0.04 10*3/uL 0.01-0.09 = 704-7) Lab Interpretation Abnormal (test code = 31152-0) [facility] WITH [id number] 09:23:08 Test Item Value Reference Range Interpretation [...] RDW-SD (test code = 46.6 fL 38.5-51.6 84318-9) RDW-CV (test code = 13.5 % 12.1-15.4 788-0) PLT (test code = See_Comment L [Automated 777-3) message] The system which generated this result transmit artem reference range : 150 - 328 10*3/ ?L. The reference range was not u sed to interpret th is result as normal/abnormal . MPV (test code = 12.7 fL 9.8-13 43033-5) NRBC/100 WBC (test See_Comment [Automat ed code = 2816956838) message] The system which generated this result transmit artem reference range : 0.0 - 10.0 /100 WBCs. The reference range was not used to interpret this result as normal/abnormal . NRBC x10^3 (test code See_Comment [Auto mated = 1487471647) message] The system which generated this result transmit artem reference range : 10*3/?L. The reference range was not used to interpret this result as normal/abnormal . GRAN MAT (NEUT) % 71.3 % (test code = 770-8) IMM GRAN % (test code 0.40 % = 6489183245) LYMPH % (test code = 17.4 % 736-9) MONO % (test code = 9.8 % 5905-5) EOS % (test code = 0.8 % 713-8) BASO % (test code = 0.3 % 706-2) GRAN MAT x10^3(ANC) 10.18 10*3/uL 1.99-6.95 H (test code = 4930474188) IMM GRAN x10^3 (test 0.06 10*3/uL 0-0.06 code = 5651405444) LYMPH x10^3 (test code 2.49 10*3/uL 1.09-3.23 = 731-0) MONO x10^3 (test code 1.40 10*3/uL 0.36-1.02 H = 742-7) EOS x10^3 (test code = 0.11 10*3/uL 0.06-0.53 711-2) BASO x10^3 (test code 0.04 10*3/uL 0.01-0.09 = 704-7) Lab Interpretation Abnormal (test code = 19997-9) [facility] GLUCOSE (AUTOMATED)2022-07-22 01:47:13 Test Item Value Reference Range Interpretation Comments POCT GLU (test code = 4743974815) 220 mg/dL 70-110 H Lab Interpretation (test code = Abnormal 92849-7) [facility] GLUCOSE (AUTOMATED)2022-07-22 01:47:13 Test Item Value Reference Range Interpretation Comments POCT GLU (test code = 4219464008) 220 mg/dL 70-110 H Lab Interpretation (test code = Abnormal 19920-4) [facility]TOTAL CHOLESTEROL, TRIGLYCERIDES, HDL)2022-07-22 00:19:28 Test Item Value Reference Range Interpretation Comments CHOL (test code = 121 mg/dL 120-200 0364248033) HDL (test code = 28 mg/dL See_Comment L [Automated message] 2161455108) The system [employer] generated this result transmit artem reference range : >=40. The refer ence range was not u sed to interpret th is result as normal/abnormal . HDLC RATIO (test code = See_Comment [Au tomated message] 0509424416) The system [employer] generated this result transmit artem reference range : <=5.0. The refe rence range was not u sed to interpret th is result as normal/abnormal . TRIG (test code = 119 mg/dL 30-170 8653079946) LDL CHOL (test code = 69 mg/dL See_Comment [Auto mated message] 46722-3) The system [employer] generated this result transmit artem reference range : <=160. The refe rence range was not u sed to interpret th is result as normal/abnormal . VLDL (test code = 24 mg/dL 5-60 8691098441) Lab Interpretation (test Abnormal code = 48805-5) [facility]69750)(TOTAL CHOLESTEROL, TRIGLYCERIDES, HDL)2022-07-22 00:19:28 Test Item Value Reference Range Interpretation Comments CHOL (test code = 121 mg/dL 120-200 7578127971) HDL (test code = 28 mg/dL See_Comment L [Automated message] 5928646036) The system [employer] generated this result transmit artem reference range : >=40. The refer ence range was not u sed to interpret th is result as normal/abnormal . HDLC RATIO (test code = See_Comment [Au tomated message] 8418905137) The system [employer] generated this result transmit artem reference range : <=5.0. The refe rence range was not u sed to interpret th is result as normal/abnormal . TRIG (test code = 119 mg/dL 30-170 5588039587) LDL CHOL (test code = 69 mg/dL See_Comment [Auto mated message] 38174-4) The system [employer] generated this result transmit artem reference range : <=160. The refe rence range was not u sed to interpret th is result as normal/abnormal . VLDL (test code = 24 mg/dL 5-60 0944749012) Lab Interpretation (test Abnormal code = 28949-6) [facility]:55 Test Item Value Reference Range Interpretation Comments Height (test code = in 7783225334) Weight (test code = lbs 8655443516) Systolic BP (test code = mmHg 3003104280) Diastolic BP (test code mmHg = 5559566910) Heart Rate (test code = bpm 1744393302) BSA (test code = 2.04 m2 5017427883) Ao root annulus (test 3.5 cm code = 1389443313) Ao root diam (test code 3.50 cm = 7642041529) Aortic root (test code = 3.5 cm 7766020974) LVOT diameter (test code 2.19 cm = 7090954136) LVOT area (test code = 3.80 cm2 2405416101) LVIDD (test code = 5.30 cm 3161971520) Left Ventricular End 135.3 mL Diastolic Volume by Teichholz Method (test code = 3951033) IVS (test code = 1.26 cm 0051055565) Interventricular Septum 1.26 cm Diastolic Thickness by 2D (test code = 8680871) LVPWD (test code = 1.26 cm 4773514773) PW (test code = 1.26 cm 0.6-1.7 7613712526) EF(Teich) (test code = 16.40 % 7580769448) LVIDS (test code = 4.90 cm 8582424927) Left Ventricular End 113.1 mL Systolic Volume by Teichholz Method (test code = 0213882) FS (test code = 7 % 6510906122) EF - 2D (test code = 16.40 % 50327876) LA size (test code = 4.3 cm 5082410600) TR Peak Anthony (test code = 249.6 cm/s 1974327762) Triscuspid Valve mmHg Regurgitation Peak Gradient (test code = 0146948689) LAV(MOD-sp4) (test code 79.00 mL = 3894676387) E wave decelartion time 0.13 s (test code = 4955759701) MV Peak E Anthony (test code 82.3 cm/s = 1281703594) MV stenosis pressure 1/2 38.8 ms time (test code = 0333887575) MV Peak A Anthony (test code 40.8 cm/s = 0601452055) E/A ratio (test code = ratio 3031037781) MR max PG (test code = 61.50 mm[Hg] 3064705674) MR max anthony (test code = 392.20 cm/s 4526406487) Mr max anthony (test code = 392.2 m/s 6965608672) MV Prop V (test code = 33.40 cm/s 3154058768) MV E/e' septal (test 12.6 cm/s code = 3830801076) Tapse (test code = 1.17 cm 9300730576) LVOT stroke volume (test 52.20 cm3 code = 3277651584) LVOT peak anthony (test code 86.4 cm/s = 7453491397) LVOT mn grad (test code mmHg = 3306662303) AV LVOT peak gradient mmHg (test code = 9640395414) LVOT peak VTI (test code 13.9 cm = 1039599853) LV V1 mean (test code = 57.20 cm/s 3340480089) Aortic valve mean 94.3 cm/s velocity (test code = 6551785132) Ao peak anthony (test code = 125.8 cm/s 8109889466) Ao VTI (test code = 22.6 cm 0956793811) AV area by cont VTI 2.3 cm2 (test code = 0693289728) AV area peak anthony (test 2.6 cm2 code = 6350465964) Ao max PG (test code = 6.30 mm[Hg] 8870348069) AV peak gradient (test mmHg code = 5871189490) AV valve area (test code 2.31 cm2 = 6478426313) AV mean gradient (test mmHg code = 4031321664) Radiology Study observation (narrative) (test code = 47502-4) ROSLYN (test code = ROSLYN) ?Left?Ventricle: Left [...] mL of Lumason ultrasound enhancing agent used. [facility] 00:00:55 Test Item Value Reference Range Interpretation Comments Height (test code = in 5274230889) Weight (test code = lbs 8566833124) Systolic BP (test code = mmHg 0485126881) Diastolic BP (test code mmHg = 7995862213) Heart Rate (test code = bpm 8231475802) BSA (test code = 2.04 m2 5963005469) Ao root annulus (test 3.5 cm code = 7758769031) Ao root diam (test code 3.50 cm = 2287675083) Aortic root (test code = 3.5 cm 5121879289) LVOT diameter (test code 2.19 cm = 4831924383) LVOT area (test code = 3.80 cm2 6857983544) LVIDD (test code = 5.30 cm 4703778880) Left Ventricular End 135.3 mL Diastolic Volume by Teichholz Method (test code = 5712195) IVS (test code = 1.26 cm 8506688386) Interventricular Septum 1.26 cm Diastolic Thickness by 2D (test code = 7168767) LVPWD (test code = 1.26 cm 1215539141) PW (test code = 1.26 cm 0.6-1.7 9786746158) EF(Teich) (test code = 16.40 % 7552783055) LVIDS (test code = 4.90 cm 8851841365) Left Ventricular End 113.1 mL Systolic Volume by Teichholz Method (test code = 6267998) FS (test code = 7 % 6955282642) EF - 2D (test code = 16.40 % 48757136) LA size (test code = 4.3 cm 5377965530) TR Peak Anthony (test code = 249.6 cm/s 5340924723) Triscuspid Valve mmHg Regurgitation Peak Gradient (test code = 9312139073) LAV(MOD-sp4) (test code 79.00 mL = 7501255459) E wave decelartion time 0.13 s (test code = 4900879663) MV Peak E Anthony (test code 82.3 cm/s = 1670659738) MV stenosis pressure 1/2 38.8 ms time (test code = 9086804278) MV Peak A Anthony (test code 40.8 cm/s = 7521839361) E/A ratio (test code = ratio 2308544117) MR max PG (test code = 61.50 mm[Hg] 1384833010) MR max anthony (test code = 392.20 cm/s 0025512995) Mr max anthony (test code = 392.2 m/s 3838915085) MV Prop V (test code = 33.40 cm/s 0170633520) MV E/e' septal (test 12.6 cm/s code = 4383809183) Tapse (test code = 1.17 cm 5944863272) LVOT stroke volume (test 52.20 cm3 code = 4447890827) LVOT peak anthony (test code 86.4 cm/s = 3738592329) LVOT mn grad (test code mmHg = 1222053323) AV LVOT peak gradient mmHg (test code = 1080401589) LVOT peak VTI (test code 13.9 cm = 3492188310) LV V1 mean (test code = 57.20 cm/s 9859104996) Aortic valve mean 94.3 cm/s velocity (test code = 1247473912) Ao peak anthony (test code = 125.8 cm/s 1495954256) Ao VTI (test code = 22.6 cm 5212487259) AV area by cont VTI 2.3 cm2 (test code = 5360884475) AV area peak anthony (test 2.6 cm2 code = 3346009394) Ao max PG (test code = 6.30 mm[Hg] 1353279001) AV peak gradient (test mmHg code = 0582661113) AV valve area (test code 2.31 cm2 = 5557570787) AV mean gradient (test mmHg code = 7305266295) Radiology Study observation (narrative) (test code = 22991-5) ROSLYN (test code = ROSLYN) ?Left?Ventricle: Left [...] mL of Lumason ultrasound enhancing agent used. [facility] 21:54:48 Test Item Value Reference Range Interpretation Comments POCT GLU (test code = 3049934706) 161 mg/dL 70-110 H Lab Interpretation (test code = Abnormal 59849-6) [facility] GLUCOSE (AUTOMATED)2022-07-21 21:54:48 Test Item Value Reference Range Interpretation Comments POCT GLU (test code = 8180123510) 161 mg/dL 70-110 H Lab Interpretation (test code = Abnormal 54753-2) [facility] GLUCOSE (AUTOMATED)2022-07-21 16:47:05 Test Item Value Reference Range Interpretation Comments POCT GLU (test code = 6587981021) 132 mg/dL 70-110 H Lab Interpretation (test code = Abnormal 26642-1) [facility] GLUCOSE (AUTOMATED)2022-07-21 16:47:05 Test Item Value Reference Range Interpretation Comments POCT GLU (test code = 2821305521) 132 mg/dL 70-110 H Lab Interpretation (test code = Abnormal 59400-8) [facility] GLUCOSE (AUTOMATED)2022-07-21 15:03:01 Test Item Value Reference Range Interpretation Comments POCT GLU (test code = 7385302742) 182 mg/dL 70-110 H Lab Interpretation (test code = Abnormal 80164-5) [facility] GLUCOSE (AUTOMATED)2022-07-21 15:03:01 Test Item Value Reference Range Interpretation Comments POCT GLU (test code = 9649676990) 182 mg/dL 70-110 H Lab Interpretation (test code = Abnormal 39606-7) [facility] Oprckisbbmap5736-73-27 14:58:14 Test Item Value Reference Range Interpretation Comments WBC (test code = See_Comment H [Automated 3990-2) message] The system which generated this result transmit artem reference range : 4.20 - 10.70 10*3/?L. The reference range was not used to interpret this result as normal/abnormal . RBC (test code = See_Comment [Automated 769-8) message] The system which generated this result [...] RDW-SD (test code = 46.4 fL 38.5-51.6 00908-0) RDW-CV (test code = 13.5 % 12.1-15.4 788-0) PLT (test code = See_Comment [Automated 777-3) message] The system which generated this result transmit artem reference range : 150 - 328 10*3/ ?L. The reference range was not u sed to interpret th is result as normal/abnormal . MPV (test code = 13.0 fL 9.8-13 33342-8) NRBC/100 WBC (test See_Comment [Automat ed code = 4771198914) message] The system which generated this result transmit artem reference range : 0.0 - 10.0 /100 WBCs. The reference range was not used to interpret this result as normal/abnormal . NRBC x10^3 (test code See_Comment [Auto mated = 3812319289) message] The system which generated this result transmit artem reference range : 10*3/?L. The reference range was not used to interpret this result as normal/abnormal . GRAN MAT (NEUT) % 71.1 % (test code = 770-8) IMM GRAN % (test code 0.40 % = 5729483055) LYMPH % (test code = 17.6 % 736-9) MONO % (test code = 10.3 % 5905-5) EOS % (test code = 0.3 % 713-8) BASO % (test code = 0.3 % 706-2) GRAN MAT x10^3(ANC) 10.55 10*3/uL 1.99-6.95 H (test code = 2445979834) IMM GRAN x10^3 (test 0.06 10*3/uL 0-0.06 code = 3092149230) LYMPH x10^3 (test code 2.61 10*3/uL 1.09-3.23 = 731-0) MONO x10^3 (test code 1.53 10*3/uL 0.36-1.02 H = 742-7) EOS x10^3 (test code = 0.04 10*3/uL 0.06-0.53 L 711-2) BASO x10^3 (test code 0.04 10*3/uL 0.01-0.09 = 704-7) BANDS (test code = Increased A 3927714011) REACT LYMPHS (test Rare code = 6309783635) GIANT PLATELETS (test Present See_Comment A [Auto mated code = 5908-9) message] The system which generated this result transmit artem reference range : (none). The reference range was not used to interpret this result as normal/abnormal . Lab Interpretation Abnormal (test code = 34598-2) [facility] Dafafapfeltw0989-47-79 14:58:14 Test Item Value Reference Range Interpretation [...] RDW-SD (test code = 46.4 fL 38.5-51.6 55565-4) RDW-CV (test code = 13.5 % 12.1-15.4 788-0) PLT (test code = See_Comment [Automated 777-3) message] The system which generated this result transmit artem reference range : 150 - 328 10*3/ ?L. The reference range was not u sed to interpret th is result as normal/abnormal . MPV (test code = 13.0 fL 9.8-13 40162-9) NRBC/100 WBC (test See_Comment [Automat ed code = 1188413722) message] The system which generated this result transmit artem reference range : 0.0 - 10.0 /100 WBCs. The reference range was not used to interpret this result as normal/abnormal . NRBC x10^3 (test code See_Comment [Auto mated = 6323134189) message] The system which generated this result transmit artem reference range : 10*3/?L. The reference range was not used to interpret this result as normal/abnormal . GRAN MAT (NEUT) % 71.1 % (test code = 770-8) IMM GRAN % (test code 0.40 % = 5957282873) LYMPH % (test code = 17.6 % 736-9) MONO % (test code = 10.3 % 5905-5) EOS % (test code = 0.3 % 713-8) BASO % (test code = 0.3 % 706-2) GRAN MAT x10^3(ANC) 10.55 10*3/uL 1.99-6.95 H (test code = 9102555929) IMM GRAN x10^3 (test 0.06 10*3/uL 0-0.06 code = 0099253609) LYMPH x10^3 (test code 2.61 10*3/uL 1.09-3.23 = 731-0) MONO x10^3 (test code 1.53 10*3/uL 0.36-1.02 H = 742-7) EOS x10^3 (test code = 0.04 10*3/uL 0.06-0.53 L 711-2) BASO x10^3 (test code 0.04 10*3/uL 0.01-0.09 = 704-7) BANDS (test code = Increased A 2191514374) REACT LYMPHS (test Rare code = 7594885901) GIANT PLATELETS (test Present See_Comment A [Auto mated code = 5908-9) message] The system which generated this result transmit artem reference range : (none). The reference range was not used to interpret this result as normal/abnormal . Lab Interpretation Abnormal (test code = 14729-4) [facility] GLUCOSE (AUTOMATED)2022-07-21 13:20:46 Test Item Value Reference Range Interpretation Comments POCT GLU (test code = 0454617603) 148 mg/dL 70-110 H Lab Interpretation (test code = Abnormal 70926-1) [facility] GLUCOSE (AUTOMATED)2022-07-21 13:20:46 Test Item Value Reference Range Interpretation Comments POCT GLU (test code = 9532537492) 148 mg/dL 70-110 H Lab Interpretation (test code = Abnormal 11488-8) [facility] Metabolic Panel (NA, K, CL, CO2, GLUCOSE, BUN, CREATININE, CA)2022-07-21 13:17:35 Test Item Value Reference Range Interpretation Comments NA (test code = 134 mmol/L 135-145 L 9766278927) K (test code = 4.1 mmol/L 3.5-5 6788887433) CL (test code = 99 mmol/L 98-108 3716508997) CO2 TOTAL (test code = 32 mmol/L 23-31 H 8884834833) AGAP (test code = 2-16 6022623135) BUN (test code = 17 mg/dL 7-23 1380247219) GLUCOSE (test code = 186 mg/dL 70-110 H 6113013780) CREATININE (test code = 0.65 mg/dL 0.6-1.25 8490641873) CALCIUM (test code = 8.2 mg/dL 8.6-10.6 L 0503631490) eGFR (test code = mL/min/1.73m2 3636729535) ROSLYN (test code = ROSLYN) Association of [...] tests). Lab Interpretation Abnormal (test code = 25913-1) [facility] Metabolic Panel (NA, K, CL, CO2, GLUCOSE, BUN, CREATININE, CA)2022-07-21 13:17:35 Test Item Value Reference Range Interpretation Comments NA (test code = 134 mmol/L 135-145 L 1727567103) K (test code = 4.1 mmol/L 3.5-5 6620211833) CL (test code = 99 mmol/L 98-108 1277209870) CO2 TOTAL (test code = 32 mmol/L 23-31 H 4886851303) AGAP (test code = 2-16 8697290406) BUN (test code = 17 mg/dL 7-23 8735762123) GLUCOSE (test code = 186 mg/dL 70-110 H 7153900727) CREATININE (test code = 0.65 mg/dL 0.6-1.25 4664463433) CALCIUM (test code = 8.2 mg/dL 8.6-10.6 L 9589042556) eGFR (test code = mL/min/1.73m2 3004576406) ROSLYN (test code = ROSLYN) Association of [...] tests). Lab Interpretation Abnormal (test code = 08384-4) [id number] 12:35:48 Test Item Value Reference Interpretation Comments Range TROPONIN I (test 0.032 ng/mL See_Comment [Automated code = 9538952375) message] The system which generated this result [...] biotin. Lab Interpretation Normal (test code = 16308-7) [facility] [id number] 12:35:48 Test Item Value Reference Interpretation Comments Range TROPONIN I (test 0.032 ng/mL See_Comment [Automated code = 6114495013) message] The system which generated this result [...] biotin. Lab Interpretation Normal (test code = 00274-4) [facility] [id number] 12:32:47 Test Item Value Reference Range Interpretation Comments NT-proBNP (test code 3830 pg/mL See_Comment H [Autom ated = 6993569220) message] The system which generated this result transmitted reference range : <=125. The reference range was not used to interpret this result as normal/abnormal . ROSLYN (test code = ROSLYN) Biotin has been reported to cause a negative bias, interpret results relative to patient's use of biotin. Lab Interpretation Abnormal (test code = 30153-7) [facility] [id number]-[id number] 12:32:47 Test Item Value Reference Range Interpretation Comments NT-proBNP (test code 3830 pg/mL See_Comment H [Autom ated = 2573067424) message] The system which generated this result transmitted reference range : <=125. The reference range was not used to interpret this result as normal/abnormal . ROSLYN (test code = ROSLYN) Biotin has been reported to cause a negative bias, interpret results relative to patient's use of biotin. Lab Interpretation Abnormal (test code = 62350-2) [id number] 12:24:10 Test Item Value Reference Range Interpretation Comments MAGNESIUM (test code = 5805376990) 1.8 mg/dL 1.7-2.4 Lab Interpretation (test code = Normal 26258-7) [facility] [id number] 12:24:10 Test Item Value Reference Range Interpretation Comments MAGNESIUM (test code = 4388488309) 1.8 mg/dL 1.7-2.4 Lab Interpretation (test code = Normal 94360-3) [facility] GLUCOSE (AUTOMATED)2022-07-21 04:19:16 Test Item Value Reference Range Interpretation Comments POCT GLU (test code = 5843752370) 169 mg/dL 70-110 H Lab Interpretation (test code = Abnormal 43709-5) [facility] GLUCOSE (AUTOMATED)2022-07-21 04:19:16 Test Item Value Reference Range Interpretation Comments POCT GLU (test code = 0613206931) 169 mg/dL 70-110 H Lab Interpretation (test code = Abnormal 00484-7) [facility] GLUCOSE (AUTOMATED)2022-07-21 02:03:28 Test Item Value Reference Range Interpretation Comments POCT GLU (test code = 0761378399) 242 mg/dL 70-110 H Lab Interpretation (test code = Abnormal 79783-5) [facility] GLUCOSE (AUTOMATED)2022-07-21 02:03:28 Test Item Value Reference Range Interpretation Comments POCT GLU (test code = 2348938189) 242 mg/dL 70-110 H Lab Interpretation (test code = Abnormal 26545-2) [facility]-21 00:46:20 Test Item Value Reference Range Interpretation Comments HGB A1C (test code = 11.1 % 4-5.7 H 4548-4) ROSLYN (test code = ROSLYN) Reference RangesNormal: <5.7%Prediabetes: 5.7 - 6.4%Diabetes: > 6.5% Lab Interpretation (test Abnormal code = 03046-7) [facility]-21 00:46:20 Test Item Value Reference Range Interpretation Comments HGB A1C (test code = 11.1 % 4-5.7 H 4548-4) ROSLYN (test code = ROSLYN) Reference RangesNormal: <5.7%Prediabetes: 5.7 - 6.4%Diabetes: > 6.5% Lab Interpretation (test Abnormal code = 58620-4) [facility] GLUCOSE (AUTOMATED)2022-07-20 22:27:55 Test Item Value Reference Range Interpretation Comments POCT GLU (test code = 9036738742) 234 mg/dL 70-110 H Lab Interpretation (test code = Abnormal 25646-2) [facility] GLUCOSE (AUTOMATED)2022-07-20 22:27:55 Test Item Value Reference Range Interpretation Comments POCT GLU (test code = 6693505041) 234 mg/dL 70-110 H Lab Interpretation (test code = Abnormal 20706-1) [facility] [id number] 17:21:08 Test Item Value Reference Range Interpretation Comments NT-proBNP (test code 3250 pg/mL See_Comment H [Autom ated = 3457709613) message] The system which generated this result transmitted reference range : <=125. The reference range was not used to interpret this result as normal/abnormal . ROSLYN (test code = ROSLYN) Biotin has been reported to cause a negative bias, interpret results relative to patient's use of biotin. Lab Interpretation Abnormal (test code = 57903-2) [facility] [id number] 17:21:08 Test Item Value Reference Range Interpretation Comments NT-proBNP (test code 3250 pg/mL See_Comment H [Autom ated = 1738401496) message] The system which generated this result transmitted reference range : <=125. The reference range was not used to interpret this result as normal/abnormal . ROSLYN (test code = ROSLYN) Biotin has been reported to cause a negative bias, interpret results relative to patient's use of biotin. Lab Interpretation Abnormal (test code = 75244-9) [facility] [id number] 17:16:49 Test Item Value Reference Range Interpretation [...] RDW-SD (test code = 44.7 fL 38.5-51.6 70964-5) RDW-CV (test code = 13.7 % 12.1-15.4 788-0) PLT (test code = See_Comment [Automated 777-3) message] The system which generated this result transmit artem reference range : 150 - 328 10*3/ ?L. The reference range was not u sed to interpret th is result as normal/abnormal . MPV (test code = 12.5 fL 9.8-13 67706-9) NRBC/100 WBC (test See_Comment [Automat ed code = 9815776953) message] The system which generated this result transmit artem reference range : 0.0 - 10.0 /100 WBCs. The reference range was not used to interpret this result as normal/abnormal . NRBC x10^3 (test code See_Comment [Auto mated = 9353159354) message] The system which generated this result transmit artem reference range : 10*3/?L. The reference range was not used to interpret this result as normal/abnormal . GRAN MAT (NEUT) % 76.6 % (test code = 770-8) IMM GRAN % (test code 0.70 % = 1298237642) LYMPH % (test code = 13.8 % 736-9) MONO % (test code = 8.5 % 5905-5) EOS % (test code = 0.1 % 713-8) BASO % (test code = 0.3 % 706-2) GRAN MAT x10^3(ANC) 17.13 10*3/uL 1.99-6.95 H (test code = 6632040481) IMM GRAN x10^3 (test 0.16 10*3/uL 0-0.06 H code = 6336395535) LYMPH x10^3 (test code 3.10 10*3/uL 1.09-3.23 = 731-0) MONO x10^3 (test code 1.91 10*3/uL 0.36-1.02 H = 742-7) EOS x10^3 (test code = 0.06-0.53 L 711-2) BASO x10^3 (test code 0.07 10*3/uL 0.01-0.09 = 704-7) BANDS (test code = Increased A 5269220028) REACT LYMPHS (test Rare code = 6040960350) Lab Interpretation Abnormal (test code = 25323-7) [facility] WITH [id number] 17:16:49 Test Item Value Reference Range Interpretation [...] RDW-SD (test code = 44.7 fL 38.5-51.6 42968-4) RDW-CV (test code = 13.7 % 12.1-15.4 788-0) PLT (test code = See_Comment [Automated 777-3) message] The system which generated this result transmit artem reference range : 150 - 328 10*3/ ?L. The reference range was not u sed to interpret th is result as normal/abnormal . MPV (test code = 12.5 fL 9.8-13 24177-3) NRBC/100 WBC (test See_Comment [Automat ed code = 1025870171) message] The system which generated this result transmit artem reference range : 0.0 - 10.0 /100 WBCs. The reference range was not used to interpret this result as normal/abnormal . NRBC x10^3 (test code See_Comment [Auto mated = 6665958962) message] The system which generated this result transmit artem reference range : 10*3/?L. The reference range was not used to interpret this result as normal/abnormal . GRAN MAT (NEUT) % 76.6 % (test code = 770-8) IMM GRAN % (test code 0.70 % = 9932415256) LYMPH % (test code = 13.8 % 736-9) MONO % (test code = 8.5 % 5905-5) EOS % (test code = 0.1 % 713-8) BASO % (test code = 0.3 % 706-2) GRAN MAT x10^3(ANC) 17.13 10*3/uL 1.99-6.95 H (test code = 6775094709) IMM GRAN x10^3 (test 0.16 10*3/uL 0-0.06 H code = 0311639130) LYMPH x10^3 (test code 3.10 10*3/uL 1.09-3.23 = 731-0) MONO x10^3 (test code 1.91 10*3/uL 0.36-1.02 H = 742-7) EOS x10^3 (test code = 0.06-0.53 L 711-2) BASO x10^3 (test code 0.07 10*3/uL 0.01-0.09 = 704-7) BANDS (test code = Increased A 6598254054) REACT LYMPHS (test Rare code = 0512695617) Lab Interpretation Abnormal (test code = 82996-3) [facility] [id number] 16:42:04 Test Item Value Reference Interpretation Comments Range TROPONIN I (test 0.025 ng/mL See_Comment [Automated code = 0673104770) message] The system which generated this result [...] biotin. Lab Interpretation Normal (test code = 08617-0) [facility] [id number] 16:42:04 Test Item Value Reference Interpretation Comments Range TROPONIN I (test 0.025 ng/mL See_Comment [Automated code = 3482505968) message] The system which generated this result [...] biotin. Lab Interpretation Normal (test code = 35497-3) [facility] 16:31:19 Test Item Value Reference Range Interpretation Comments APTT Patient (test See_Comment [Automat ed code = 3173-2) message] The system which generated this result transmitted reference range : 23 - 38 Seconds . The reference range was not used to interpr et this result as normal/abnormal . ROSLYN (test code = ROSLYN) The [facility] patient population mean normal value for aPTT is 30 seconds. Lab Interpretation Normal (test code = 73189-4) [facility] 16:31:19 Test Item Value Reference Range Interpretation Comments APTT Patient (test See_Comment [Automat ed code = 3173-2) message] The system which generated this result transmitted reference range : 23 - 38 Seconds . The reference range was not used to interpr et this result as normal/abnormal . ROSLYN (test code = ROSLYN) The [facility] patient population mean normal value for aPTT is 30 seconds. Lab Interpretation Normal (test code = 95571-3) [facility] (88708)2022-07-20 16:30:19 Test Item Value Reference Range Interpretation Comments NA (test code = 133 mmol/L 135-145 L 6816410174) K (test code = 5.3 mmol/L 3.5-5 H 0547292532) CL (test code = 98 mmol/L 98-108 4121129755) CO2 TOTAL (test code = 27 mmol/L 23-31 2371133410) AGAP (test code = 2-16 5699834114) BUN (test code = 13 mg/dL 7-23 8922049303) GLUCOSE (test code = 273 mg/dL 70-110 H 4347389667) CREATININE (test code = 0.62 mg/dL 0.6-1.25 8052692989) TOTAL BILI (test code = 2.1 mg/dL 0.1-1.1 H 6392920376) CALCIUM (test code = 8.6 mg/dL 8.6-10.6 4091064553) T PROTEIN (test code = 7.3 g/dL 6.3-8.2 5822335490) ALBUMIN (test code = 4.4 g/dL 3.5-5 4208978943) ALK PHOS (test code = 61 U/L 34-122 1607458852) ALTv (test code = 29 U/L 5-50 1742-6) AST(SGOT) (test code = 36 U/L 13-40 0502292350) eGFR (test code = mL/min/1.73m2 6803074267) ROSLYN (test code = ROSLYN) Association of [...] tests). Lab Interpretation Abnormal (test code = 77881-2) [facility]. METABOLIC PANEL (23071)2022-07-20 16:30:19 Test Item Value Reference Range Interpretation Comments NA (test code = 133 mmol/L 135-145 L 8858905129) K (test code = 5.3 mmol/L 3.5-5 H 5720392328) CL (test code = 98 mmol/L 98-108 6122951442) CO2 TOTAL (test code = 27 mmol/L 23-31 8655598960) AGAP (test code = 2-16 6019579897) BUN (test code = 13 mg/dL 7-23 4379599129) GLUCOSE (test code = 273 mg/dL 70-110 H 3697635965) CREATININE (test code = 0.62 mg/dL 0.6-1.25 7516552110) TOTAL BILI (test code = 2.1 mg/dL 0.1-1.1 H 8935027084) CALCIUM (test code = 8.6 mg/dL 8.6-10.6 6505963987) T PROTEIN (test code = 7.3 g/dL 6.3-8.2 0717076047) ALBUMIN (test code = 4.4 g/dL 3.5-5 6162537968) ALK PHOS (test code = 61 U/L 34-122 5652641914) ALTv (test code = 29 U/L 5-50 1742-6) AST(SGOT) (test code = 36 U/L 13-40 5388475058) eGFR (test code = mL/min/1.73m2 3187574975) ROSLYN (test code = ROSLYN) Association of [...] tests). Lab Interpretation Abnormal (test code = 42419-2) [id number] 16:29:23 Test Item Value Reference Range Interpretation Comments PROTIME PATIENT (test See_Comment [Auto mated message] code = 5964-2) The system [employer] generated this result transmitted ref erence range: 12.0 - 1 4.7 Seconds. The re ference range was not u sed to interpret this result as normal/abnor mal. INR (test code = 6301-6) Nor mal INR <1.1; Warfarin Therap eutic range 2.0 to 3. 0 or 2.5 to 3.5, dep ending upon the indica tions. Lab Interpretation (test Normal code = 62300-8) [facility] [id number] 16:29:23 Test Item Value Reference Range Interpretation Comments PROTIME PATIENT (test See_Comment [Auto mated message] code = 5964-2) The system [employer] generated this result transmitted ref erence range: 12.0 - 1 4.7 Seconds. The re ference range was not u sed to interpret this result as normal/abnor mal. INR (test code = 6301-6) Nor mal INR <1.1; Warfarin Therap eutic range 2.0 to 3. 0 or 2.5 to 3.5, dep ending upon the indica tions. Lab Interpretation (test Normal code = 71150-8) [facility]"
[2023-03-07] MEDS ORDERED: AMIODARONE HCL 150 MG/3 ML INJ IV ONE (18:54)
[2023-03-07] MEDS ORDERED: MAGNESIUM SULFATE 1 gm IVPB 1 GM/100 ML BAG IV ONE ×2 (18:54→18:55)
[2023-03-07] MEDS ORDERED: D5W 100 ML IV ONE (18:55)
[2023-03-07] MEDS ORDERED: CALCIUM GLUCONATE 1 GM IVPB 1 GM/50 ML BAG IV ONE (18:55)
--- NOTE | 2023-03-07 19:02 | RAD REPORT ---
EXAM DESCRIPTION: Billy Single View03/07/2023 6:44 pm CLINICAL HISTORY: Chest pain COMPARISON: December 2002 FINDINGS: The lungs appear clear of acute infiltrate. The heart is mildly to moderately enlarged Pulmonary vascular congestion is present.
[2023-03-07 19:03] LABS: Absolute Lymphocytes (CBC) 1.9 K/uL (0.7-4.9); Hematocrit 47.7 % (39.6-49.0); Lymphocytes % 15.3 % (15.3-44.8); MCV 88.6 fL (80-100); MPV 9.9 fL (7.6-11.3); RBC Red Blood Cell Count 5.38 M/uL (4.33-5.43)
[2023-03-07 19:06] LABS: Protime INR 1.15
[2023-03-07 19:18] LABS: Potassium 4.6 mEq/L (3.5-5.1); Troponin High Sensitivity 33.3 pg/mL (<58.9)
[2023-03-07] MEDS ORDERED: DOBUTAMINE 250 MG/250 ML BAG IV ONE (20:55)
--- NOTE | 2023-03-07 21:19 | RAD REPORT ---
[facility] CLINICAL HISTORY: Device placement/central venous catheter placement IMPRESSION: Central venous catheter has been placed into the superior vena cava. No pneumothorax
--- NOTE | 2023-03-07 22:17 | EDPHYS ---
Physician Documentation [facility] Name: José Pat Age: 72 yrs Sex: Male : 1950 Arrival Date: 03/07/2023 Time: 17:52 Bed 3 Private MD: ED Physician Raymond Dimas HPI: 03/07 18:27 This 72 yrs old Male presents to ER via Ambulatory with complaints of Breathing snw Difficulty. 18:27 The patient has shortness of breath at rest. Onset: The symptoms/episode began/occurred snw 3 day(s) ago, and became persistent. Duration: The symptoms are continuous. Associated signs and symptoms: Pertinent positives: chest pain, x 1 hour. Severity of symptoms: At their worst the symptoms were moderate. The patient has experienced similar episodes in the past. Pt states he sees Dr. Coulter and only takes aspirin. Pt uses 4.5L O2 at home. Historical: - Allergies: 17:58 No Known Allergies; ld1 - PMHx: 17:58 Atrial fibrillation; CHF; Chronic Chest Pain; COPD; Diabetes - IDDM; Myocardial ld1 infarction; Noncompliance with medications; - PSHx: 17:58 None; ld1 - Immunization history:: Adult Immunizations up to date, Client reports receiving the 2nd dose of the Covid vaccine. - Social history:: Smoking status: Patient reports the use of cigarette tobacco products, smokes one-half pack cigarettes per day, Patient/guardian denies using alcohol. ROS: 18:26 Eyes: Negative for injury, pain, redness, and discharge, ENT: Negative for injury, snw pain, and discharge, Neck: Negative for injury, pain, and swelling. 18:26 Abdomen/GI: Negative for abdominal pain, nausea, vomiting, diarrhea, and constipation, Back: Negative for injury and pain, : Negative for injury, bleeding, discharge, and swelling, MS/Extremity: Negative for injury and deformity, Skin: Negative for injury, rash, and discoloration, Neuro: Negative for headache, weakness, numbness, tingling, and seizure, Psych: Negative for depression, anxiety, suicide ideation, homicidal ideation, and hallucinations. 18:26 Constitutional: Positive for malaise. 18:26 Cardiovascular: Positive for chest pain, of the chest. 18:26 Respiratory: Positive for shortness of breath. Exam: 18:12 Head/Face: Normocephalic, atraumatic. Eyes: Pupils equal round and reactive to light, snw extra-ocular motions intact. Lids and lashes normal. Conjunctiva and sclera are non-icteric and not injected. Cornea within normal limits. Periorbital areas with no swelling, redness, or edema. ENT: Nares patent. No nasal discharge, no septal abnormalities noted. Tympanic membranes are normal and external auditory canals are clear. Oropharynx with no redness, swelling, or masses, exudates, or evidence of obstruction, uvula midline. Mucous membranes moist. Neck: Trachea midline, no thyromegaly or masses palpated, and no cervical lymphadenopathy. Supple, full range of motion without nuchal rigidity, or vertebral point tenderness. No Meningismus. Chest/axilla: Normal chest wall appearance and motion. Nontender with no deformity. No lesions are appreciated. 18:12 Back: No spinal tenderness. No costovertebral tenderness. Full range of motion. Skin: Warm, dry with normal turgor. Normal color with no rashes, no lesions, and no evidence of cellulitis. MS/ Extremity: Pulses equal, no cyanosis. Neurovascular intact. Full, normal range of motion. Neuro: Awake and alert, GCS 15, oriented to person, place, time, and situation. Cranial nerves II-XII grossly intact. Motor strength 5/5 in all extremities. Sensory grossly intact. Cerebellar exam normal. Normal gait. Psych: Awake, alert, with orientation to person, place and time. Behavior, mood, and affect are within normal limits. 18:12 Constitutional: The patient appears alert, listless, uncomfortable. 18:12 Cardiovascular: Rate: tachycardic, Heart sounds: murmur, Edema: 3+ edema to level of left midcalf, left ankle, left foot, right midcalf, right ankle and right foot, JVD: is noted bilaterally, to 3 cm. 18:12 Respiratory: moderate respiratory distress is noted, Respirations: shallow respirations, that is moderate, tachypnea, that is mild. 18:12 Abdomen/GI: Inspection: distension, Bowel sounds: normal, Palpation: nontender. Vital Signs: 17:57 BP 106 / 75; Pulse 57; Resp 18; Temp 97.9(TE); Weight 80.74 kg; Height 5 ft. 7 in. ; ld1 Pain 5/10; 19:06 BP 140 / 122; Pulse 123; Resp 19; Pulse Ox 98% on R/A; ph 19:22 BP 96 / 70; Pulse 133; Resp 16 S; Pulse Ox 99% on BiPAP; as6 20:16 BP 100 / 85; Pulse 102; Resp 19 S; Pulse Ox 100% on BiPAP; as6 20:59 BP 101 / 77; Pulse 103; Resp 18 S; Pulse Ox 96% on 3 lpm NC; as6 21:24 BP 118 / 77; Pulse 103; Resp 19 S; Pulse Ox 95% on 3 lpm NC; as6 21:59 BP 120 / 74; Pulse 103; Resp 18 S; Pulse Ox 96% on 3 lpm NC; as6 17:57 Body Mass Index 27.88 (80.74 kg, 170.18 cm) ld1 17:57 Pain Scale: Adult ld1 Procedures: 20:23 Central Line: Dr. Dimas placing at this time. snw 20:36 Central Line: the site was prepped with in sterile fashion, Chlorhexidine, a triple sp4 lumen catheter was inserted, in the left internal jugular vein, in 1 attempts. placement was verified, by CXR, by blood return, the site was dressed with Tegaderm, using sterile technique, the patient tolerated the procedure, well, Triple-lumen left internal jugular venous line was placed, without complications for dobutamine infusion. MDM: 17:59 Patient medically screened. snw 18:53 Differential diagnosis: Anxiety Reaction Bronchitis CHF exacerbation, Chronic snw Obstructive Pulmonary Disease Myocardial Infarction pulmonary edema. Data interpreted: Pulse oximetry: on room air is 88 %. Interpretation: hypoxia. Plan: O2 by NC applied. Data reviewed: vital signs, nurses notes. ED course: Pt to ED room #3 and rate and rhythm changed to V. tach. As the complexes were widening on monitor. Repeat EKG, calcium, magnesium, and amiodarone ordered. Repeat EKG performed just after pt moved off of x-ray plate. Rate and rhythm changed on 2nd EKG to undetermined irregular rhythm with p waves evident. 19:14 Counseling: I had a detailed discussion with the patient and/or guardian regarding: the snw historical points, exam findings, and any diagnostic results supporting the discharge/admit diagnosis, lab results, radiology results, the need for further work-up and treatment in the hospital. Response to treatment: the patient's symptoms have markedly improved after treatment. ED course: Pt relaxed, bi-pap on, vitals stable, erroneous bp of 140/122 documented. 19:41 ED course: Pt bp 82/50. Reached out to Cardiology for recommendations. Dr. Dimas snw seeing patient with me and consenting pt for IJ for dobutamine prn. Pt voices understanding and gives verbal consent. Awaiting recommendations per Dr. Garcia. 20:07 Management of patient was discussed with the following: Dr. Schmitt, Dr. Dimas, Dr. giulia Garcia. Dr. Garcia requests pt be transferred out for Cardiogenic shock. Transfer initiated to [facility]. 20:14 Transition of care: After a detail discussion of the patient's case, care is snw transferred to Raymond Dimas MD. 20:30 ED course: Pt requested bi-pap be removed for a while. Dr. Dimas at bedside, bi-pap snw off, triple lumen left IJ line placed per community development technician per Dr. Dimas. Pt requests staying at this facility, does not wish transfer. Will confer with Dr. Garcia. Dobutamine ordered. Pt currently stable with BP 100/80, 102 HR, 98% on 4L. 21:07 ED course: Patient was accepted by Dr. Toure to cardiac care unit at [address] at [facility]. ED course: Awaiting on COVID swab result. 22:19 ED course: Past medical history includes paroxysmal atrial fibrillation, spinal sp4 compression fractures, chronic respiratory failure, COPD, pulmonary arterial hypertension, systolic congestive heart failure with reduced ejection fraction 30 to 35%, type 2 diabetes, hypertension, hyperlipidemia, tobacco use disorder. Medications include among other things aspirin 81 mg daily and Eliquis 5 mg p.o. twice daily,. Patient at this time is properly anticoagulated and he does not require additional blood thinners prior to transfer. Additional medications include digoxin, fluticasone, atorvastatin, furosemide, albuterol, ipratropium, prednisone, cefpodoxime, fluconazole, nebulizer albuterol, sotalol.. 03/07 18:00 Order name: Basic Metabolic Panel; Complete Time: 19:19 ld03/07 18:00 Order name: CBC with Diff; Complete Time: 19:46 ld03/07 18:00 Order name: Troponin HS; Complete Time: 19:19 ld03/07 18:06 Order name: PT-INR; Complete Time: 19:11 snw 03/07 18:06 Order name: Ptt, Activated; Complete Time: 19:11 snw 03/07 18:06 Order name: BNP; Complete Time: 19:19 snw 03/07 19:47 Order name: Add On-Lab snw 03/07 20:27 Order name: SARS-COV-2 RT PCR; Complete Time: 21:50 wm 03/07 18:00 Order name: XRAY Chest (1 view); Complete Time: 19:03 03/07 18:14 Order name: BIPAP snw 03/07 20:39 Order name: Chest Single View XRAY; Complete Time: 09:31 sp4 03/07 18:00 Order name: EKG; Complete Time: 18:01 03/07 18:00 Order name: Cardiac monitoring; Complete Time: 19:06 03/07 18:00 Order name: EKG - Nurse/Tech; Complete Time: 18:05 03/07 18:00 Order name: IV Saline Lock; Complete Time: 19:06 03/07 18:00 Order name: Labs collected and sent; Complete Time: 19:06 03/07 18:00 Order name: O2 Per Protocol; Complete Time: 18:04 03/07 18:00 Order name: O2 Sat Monitoring; Complete Time: 18:04 ld1 EC:10 Rate is 155 beats/min. Rhythm is regular. QRS [place] is Normal. [place] interval is normal. snw QRS interval is normal. Clinical impression: PSVT. Administered Medications: 18:11 CANCELLED (Other Intervention Used): Metoprolol IVP 5 mg IVP every 5 minutes; Hold for snw SBP < 100 or HR < 60. x3 18:42 CANCELLED (Physician Discretion): Furosemide IVP 40 mg IVP once; give over 2 minutes snw 18:42 CANCELLED (Other Intervention Used): Diltiazem IVP 10 mg IVP once; Over 2 minutes snw 19:05 Drug: Calcium Gluconate IVPB 1 grams Route: IVPB; Infused Over: 60 mins; Site: left ph antecubital; 19:05 Drug: Magnesium Sulfate IVPB 1 grams Route: IVPB; Infused Over: 1 hrs; Site: left ph antecubital; 19:18 Drug: amiodarone IVPB 150 mg Volume: 100 ml; Route: IVPB; Infused Over: 10 mins; Site: as6 left antecubital; 20:58 Drug: DOBUTamine IV (500 mg/250mL premix) 2.5 mcg/kg/min Route: IV; Rate: calculated as6 rate; Site: left jugular; 22:27 Drug: amiodarone IVPB 900 mg, D5W IV 500 ml Route: IVPB; Rate: 1 mg/min; Site: left as6 jugular; Disposition: 19:29 Co-signature as Attending Physician, Tate MENDEZ was immediately available on-site ms3 in the Emergency Department for consultation in the care of the patient. 03/08 09:33 Critical Care:. Chart complete. snw Disposition Summary: 03/07/23 22:16 Transfer Ordered Transfer Location: [facility] sp4 Reason: Higher level of care sp4 Condition: Serious sp4 Problem: new sp4 Symptoms: have improved sp4 Accepting Physician: [facility]'s acute care registered nurse Dr. Spencer (03/07/23 23:26) jb4 Diagnosis - Acute combined systolic and diastolic heart failure sp4 - Acute systolic heart failure, cardiogenic shock, hyperglycemia with uncontrolled sp4 diabetes mellitus type 2, acute coronary syndrome Forms: - Medication Reconciliation Form sp4 - SBAR form sp4 Critical care time excluding procedures: 09:33 Critical care time: Bedside Care: 15 minutes, Consultation: 15 minutes. Total time: 30 snw minutes Signatures: Dispatcher [employer] Julita Mcguire FNP-C TYRE BUILDER-CsnLisa Cisse RN RN ph Bryson, James, RN RN jb4 Tate Schmitt DO DO ms3 Melania Schmitt RN RN ana luisa1 Tiburcio Odell RN RN as6 Raymond Dimas MD MD sp4 Corrections: (The following items were deleted from the chart) 03/07 18:11 18:09 Metoprolol IVP 5 mg IVP every 5 minutes; Hold for SBP < 100 or HR < 60. x3 snw ordered. snw 18:42 18:09 Furosemide IVP 40 mg IVP once; give over 2 minutes ordered. snw snw 18:42 18:12 Diltiazem IVP 10 mg IVP once; Over 2 minutes ordered. snw snw 19:49 18:53 ED course: Pt to ED room #3 and rate and rhythm changed to V. tach. As the snw complexes were widening on monitor. Repeat EKG, calcium, magnesium, and amiodarone ordered. Repeat EKG performed just after pt moved off of x-ray plate. Rate and rhythm changed on 2nd EKG to a. fib.. snw 19:50 19:41 ED course: Pt bp 82/50. Reached out to Cardiology for recommendations. Dr. giulia Dimas seeing patient with me and consenting pt for IJ for doputamine prn. Pt voices understanding and gives verbal consent. Awaiting recommendations per Dr. Garcia. [facility] 20:25 20:07 Management of patient was discussed with the following: Dr. Schmitt, Dr. Valentin, snw Dr. Garcia. Dr. Garcia requests pt be transferred out for Cardiogenic shock. Transfer initiated to [facility]. [facility] 20:31 20:10 SARS-COV-2 Antigen Rapid+I.LAB.BRZ ordered. EDMS EDMS 23:26 22:16 [facility] acute care registered nurse Dr. Spencer sp4 jb4
--- NOTE | 2023-03-07 22:17 | ER ---
[facility] Name: José Pat Age: 72 yrs Sex: Male : 1950 Arrival Date: 03/07/2023 Time: 17:52 Bed 3 Private MD: Diagnosis: Acute combined systolic and diastolic heart failure;Acute systolic heart failure, cardiogenic shock, hyperglycemia with uncontrolled diabetes mellitus type 2, acute coronary syndrome Presentation: 03/07 17:57 Chief complaint: Patient states: Chest pain X 1 hour. Coronavirus screen: At this time, ld1 the client does not indicate any symptoms associated with coronavirus-19. Ebola Screen: No symptoms or risks identified at this time. Initial Sepsis Screen: Does the patient meet any 2 criteria? No. Patient's initial sepsis screen is negative. Does the patient have a suspected source of infection? No. Patient's initial sepsis screen is negative. Risk Assessment: Do you want to hurt yourself or someone else? Patient reports no desire to harm self or others. Onset of symptoms was March 07, 2023. 17:57 Method Of Arrival: Ambulatory ld1 17:57 Acuity: KIT 3 ld1 18:17 Acuity: KIT 2 ph Triage Assessment: 17:58 General: Appears in no apparent distress. comfortable, Behavior is calm, cooperative, ld1 appropriate for age. Pain: Complains of pain in chest Pain does not radiate. Pain currently is 7 out of 10 on a pain scale. Quality of pain is described as squeezing. EENT: No signs and/or symptoms were reported regarding the EENT system. Neuro: Level of Consciousness is awake, alert, obeys commands, Oriented to person, place, time, situation. Cardiovascular: Reports chest pain, Capillary refill < 3 seconds Patient's skin is warm and dry. Rhythm is sinus rhythm. Respiratory: Reports shortness of breath Airway is patent Respiratory effort is even, unlabored, Onset: The symptoms/episode began/occurred suddenly, the patient has moderate shortness of breath. GI: Abdomen is round non-distended. : No signs and/or symptoms were reported regarding the genitourinary system. Derm: No signs and/or symptoms reported regarding the dermatologic system. Musculoskeletal: No signs and/or symptoms reported regarding the musculoskeletal system. Historical: - Allergies: 17:58 No Known Allergies; ld1 - PMHx: 17:58 Atrial fibrillation; CHF; Chronic Chest Pain; COPD; Diabetes - IDDM; Myocardial ld1 infarction; Noncompliance with medications; - PSHx: 17:58 None; ld1 - Immunization history:: Adult Immunizations up to date, Client reports receiving the 2nd dose of the Covid vaccine. - Social history:: Smoking status: Patient reports the use of cigarette tobacco products, smokes one-half pack cigarettes per day, Patient/guardian denies using alcohol. Screenin:59 [facility] ED Fall Risk Assessment (Adult) Score/Fall Risk Level 0 - 2 = Low Risk. Abuse as6 screen: Denies threats or abuse. Denies injuries from another. Nutritional screening: No deficits noted. Tuberculosis screening: No symptoms or risk factors identified. Assessment: 20:59 General: pt now on NC, Dobutitmine started at 5 mcg/kg/hr per provider orders . as6 22:02 General: attempted to call report. no answer . as6 Vital Signs: 17:57 BP 106 / 75; Pulse 57; Resp 18; Temp 97.9(TE); Weight 80.74 kg; Height 5 ft. 7 in. ; ld1 Pain 5/10; 19:06 BP 140 / 122; Pulse 123; Resp 19; Pulse Ox 98% on R/A; ph 19:22 BP 96 / 70; Pulse 133; Resp 16 S; Pulse Ox 99% on BiPAP; as6 20:16 BP 100 / 85; Pulse 102; Resp 19 S; Pulse Ox 100% on BiPAP; as6 20:59 BP 101 / 77; Pulse 103; Resp 18 S; Pulse Ox 96% on 3 lpm NC; as6 21:24 BP 118 / 77; Pulse 103; Resp 19 S; Pulse Ox 95% on 3 lpm NC; as6 21:59 BP 120 / 74; Pulse 103; Resp 18 S; Pulse Ox 96% on 3 lpm NC; as6 17:57 Body Mass Index 27.88 (80.74 kg, 170.18 cm) ld1 17:57 Pain Scale: Adult ld1 ED Course: 17:53 Patient arrived in ED. mr 17:58 Triage completed. ld1 17:58 Arm band placed on right wrist. ld1 17:59 Julita Cheney FNP-C is PHCP. snw 17:59 Tate Schmitt DO is Attending Physician. snw 18:22 Collins Monte, RN is Primary Nurse. bp 18:45 Initial lab(s) drawn, by me, sent to lab. Inserted saline lock: 22 gauge in left ph antecubital area, using aseptic technique. Blood collected. 18:46 XRAY Chest (1 view) In Process Unspecified. EDMS 19:25 Primary Nurse role handed off by Collins Monte, MADELEINE 20:16 Tiburcio Odell, MADELEINE is Primary Nurse. as6 20:20 Initiated transfer to [facility], spoke with Margo. wm 20:25 Assisted provider with central line placement. Set up central line tray. Triple lumen as6 line placed in left internal jugular. Line placed by Raymond Dimas MD Placement verified by blood return, Dressed with 4X4s, Tegaderm, Patient tolerated well. 20:36 Attending Physician role handed off by Tate Schmitt DO sp4 20:36 Raymond Dimas MD is Attending Physician. sp4 20:48 SARS-COV-2 RT PCR Sent. as7 21:11 Chest Single View XRAY In Process Unspecified. EDMS 21:36 Pt accepted for transfer by Dr. Spencer \T\ 2105 per Alba Haque. wm Administered Medications: 18:11 CANCELLED (Other Intervention Used): Metoprolol IVP 5 mg IVP every 5 minutes; Hold for snw SBP < 100 or HR < 60. x3 18:42 CANCELLED (Physician Discretion): Furosemide IVP 40 mg IVP once; give over 2 minutes snw 18:42 CANCELLED (Other Intervention Used): Diltiazem IVP 10 mg IVP once; Over 2 minutes snw 19:05 Drug: Calcium Gluconate IVPB 1 grams Route: IVPB; Infused Over: 60 mins; Site: left ph antecubital; 19:05 Drug: Magnesium Sulfate IVPB 1 grams Route: IVPB; Infused Over: 1 hrs; Site: left ph antecubital; 19:18 Drug: amiodarone IVPB 150 mg Volume: 100 ml; Route: IVPB; Infused Over: 10 mins; Site: as6 left antecubital; 20:58 Drug: DOBUTamine IV (500 mg/250mL premix) 2.5 mcg/kg/min Route: IV; Rate: calculated as6 rate; Site: left jugular; 22:27 Drug: amiodarone IVPB 900 mg, D5W IV 500 ml Route: IVPB; Rate: 1 mg/min; Site: left as6 jugular; Outcome: 22:16 ER care complete, transfer ordered by MD. hickey 23:26 Patient left the ED. jb4 Signatures: Dispatcher [employer] EDMS Julita Cheney, ASSESSMENT SERVICES MANAGER-C ASSESSMENT SERVICES MANAGER-Csnw Lizz Longo Lisa Rojas, RN RN Tam Carter, RN RN jb4 Collins Monte, RN RN Melania Oliveira RN RN ld1 Carrie Ramirez Ashby, RN RN as6 Paige Kingsley as7 Raymond Dimas MD MD sp4
[2023-03-07] MEDS ORDERED: AMIODARONE IN DEXTROSE,ISO-OSM 360 MG/200 ML BAG IV ONE (22:27)
[2023-03-07 23:41] VITALS: TEMP 97.9
[2023-03-07 23:58] VITALS: BP 120/74; O2SAT 96
--- NOTE | 2023-03-08 15:18 | EKG ---
Test Date: 2023-03-07 Test Time: 18:48:17 Pull Worker: BP MEASUREMENT RESULTS: Intervals: Rate: 103 GA: QRSD: 136 QT: 388 QTc: 508 [place]: P: GA: QRS: -87 T: 63 INTERPRETIVE STATEMENTS: Atrial fibrillation with rapid ventricular response Left axis deviation Right bundle branch block Inferior infarct, age undetermined Anteroseptal infarct, age undetermined Abnormal ECG Compared to ECG 12/11/2022 20:59:22 Sinus tachycardia no longer present T-wave abnormality no longer present Possible ischemia no longer present Myocardial infarct finding still present Electronically Signed On 03-08-23 15:18:04 CDT by Gianluca Garcia
--- NOTE | 2023-03-10 12:44 | EKG ---
Test Date: 2023-03-07 Test Time: 18:07:16 Inclusion Special Educator: RUI MEASUREMENT RESULTS: Intervals: Rate: 155 DE: 80 QRSD: 126 QT: 324 QTc: 520 [place]: P: DE: 80 QRS: 269 T: 60 INTERPRETIVE STATEMENTS: Sinus tachycardia with short DE Right bundle branch block Inferior infarct, age undetermined Anterior infarct, age undetermined Abnormal ECG Compared to ECG 12/11/2022 20:59:22 Short DE interval now present Left-axis deviation no longer present T-wave abnormality no longer present Possible ischemia no longer present Myocardial infarct finding still present Electronically Signed On 03-10-23 12:37:44 CDT by Nick Coulter
== END 2023-03-07 23:26 | disposition short-term general hospital (02) ==
LOC: ER 17:52
PROC: 05HN33Z Insertion of Infusion Device into Left Internal Jugular Vein, Percutaneous Approach (ICD-10-PCS; principal; 2023-03-07)
DX: I50.41 Acute combined systolic (congestive) and diastolic (congestive) heart failure (principal); R57.0 Cardiogenic shock; I24.9 Acute ischemic heart disease, unspecified; E11.65 Type 2 diabetes mellitus with hyperglycemia; I48.91 Unspecified atrial fibrillation; J44.9 Chronic obstructive pulmonary disease, unspecified; Z20.822 Contact with and (suspected) exposure to COVID-19
CPT/HCPCS: 93005; 85025; 80048; 36415; 85610; 85730; 84484; 83880; 71045 ×2; 36556; U0003; J3475 ×2; J0610; J0282 ×2; J1250; 94660

== ENCOUNTER 2023-03-26 20:26 | Emergency (ER) | payer OTHER ==
--- OUTSIDE RECORDS SUMMARY | 2023-03-26 20:35 | XMS REPORT | Continuity of Care Document ---
:1950 Author Organization [facility] [place] t Address [address] [place] [address] Care Team Providers Name Role Phone Pcp, Patient Does Not Have A Primary Care Physician [phone] Attending Clinician Unavailable Meghana Ayala Attending Clinician Unavailable MARIJA SUTTON Attending Clinician Unavailable YO HERRERA Attending Clinician Unavailable SVETLANA ALVAREZ Attending Clinician Unavailable Jose Kim Rahil Attending Clinician Unavailable Celsa Foster RN Attending Clinician Unavailable Charlene Butt DO Attending Clinician Atul Stephens MD Attending Clinician Hay Alcantar MD Attending Clinician [phone] HAY ALCANTAR Attending Clinician Unavailable Orlando Cannon MD Attending Clinician [id number] Admitting Clinician Unavailable SVETLANA ALVAREZ Admitting Clinician Unavailable Jose Kim Rahil Admitting Clinician Unavailable Hay Alcantar MD Admitting Clinician [phone] HAY ALCANTAR Admitting Clinician Unavailable Payers Payer Name Policy Type Policy Number Effective Date Expiration Date José Manuel white [facility] [id number] MEDICARE A B [id number] 2015 00:00:00 Problems Condition Condition Condition Status Onset Resolution Last Treating Co mments Source Name Details Category Date Date Treatment Clinician Date Acute on Acute on Disease Active Unive rs chronic chronic -11 ity of combined combined 00:00: [place] systolic [...] Added automatic ally from request for surgery [id number] CHF CHF Problem Active Common (congestiv (congestiv Sp anabela e heart e heart - [facility]I failure) failure) [facility] Hypertensi Hypertensi Problem Active C ommon on on Spirit - [facility] Diabetes Diabetes Problem Active Commo n type 2, type 2, Spirit controlled controlled - [facility] COPD COPD Problem Active Common (chronic (chronic Spirit obstructiv obstructiv - [facility]I e e St pulmonary pulmonary [place] s disease) disease) [facility] [place] Nicotine Nicotine Problem Active Commo n dependence dependence Sp anabela - CHI [facility] Seasonal Seasonal Problem Active Commo n allergic allergic Spirit rhinitis rhinitis - [facility] Adjustment Adjustment Problem Active C ommon disorder disorder Spirit with with - CHI depressed depressed mood mood [facility] Chronic Chronic Problem Active Common fatigue fatigue Spirit - [facility] Type 2 Type 2 Problem Active Common diabetes diabetes Spirit mellitus mellitus - CHI with with St hyperglyce hyperglyce Anupama kes marci, marci, Medical without without Center long-term long-term current current use of use of insulin insulin Allergies, Adverse Reactions, Alerts Allergy Allergy Status Severity Reaction(s) Onset Inactive Treating Comm ents Source Name Type Date Date Clinician NO KNOWN Allergy Active [facility]ERGIE [facility] NO KNOWN Drug Active Univers ALLERGIE Class ity of S [facility] Social History Social Habit Start Date Stop Date Quantity Comments Source History of Cigarette Smoker Universi ty of tobacco use [place] [facility] History [facility] Food 2022-07-29 2022-07-29 1 Univers ity of Worry 00:00:00 00:00:00 [place] [facility] History SDCT Food 2022-07-29 2022-07-29 1 Univers ity of Scarcity 00:00:00 00:00:00 [place] [facility] History SDCT 2022-07-29 2022-07-29 2 University o f Transport Med 00:00:00 00:00:00 [facility] al Branch History [facility] 2022-07-29 2022-07-29 2 University o f Transport Non-Med 00:00:00 00:00:00 [facility] edical Branch Tobacco use and 2022-07-21 2022-07-21 Smokeless tobacco Un iversity of exposure 00:00:00 00:00:00 non-user [facility] Exposure to 2022-07-10 2022-07-20 Not sure University of SARS-CoV-2 00:00:00 10:56:00 [facility] (event) Branch Sex Ass[birth year] At [birth year] Universit y of 00:00:00 00:00:00 [facility] Smoking Status Start Date Stop Date Source Smokes tobacco daily 2022-07-21 00:00:00 Univers ity [facility] [place] Medications Ordered Filled Start Stop Current Ordering Indication Dosage Frequency Signature Comments Components Source Medication Medication Date Date Medication? Clinician (SIG) Name Name furosemide Yes 40mg 40 mg, Unive rs (LASIX) 9-18 Oral, BID, ity of tablet 40 13:00: [place] dose [place] mg 00 (after Medical last Branch modificati on) on 07/28/22 at 0800, Until Discontinu ed, Routine furosemide 2021- No 40mg 40 mg, Univ ers (LASIX) 07-28 09-18 Oral, BID, ity o f tablet 40 13:00: 04:46 First dose [place] mg 00 :24 (after Medical last Branch modificati on) on 07/28/22 at 0800, Until Discontinu ed, Routine furosemide Yes [id number] 40mg Take 1 Univers 40 mg 9-18 tablet by ity of tablet 00:00: mouth in [place] 00 the Medical morning Branch and 1 tablet in the evening. metoprolol Yes [id number] 50mg Take 1 Univers succinate 9-18 tablet by ity o f XL 50 mg 24 00:00: mouth in [place] hr tablet 00 the Medical morning. Branch spironolact Yes [id number] 25mg Take 1 Univers one 25 mg 9-18 tablet by ity o f tablet 00:00: mouth in [place] 00 the Medical morning. Branch furosemide 2021-0 Yes [id number] 40mg Take 1 Univers 40 mg 9-18 tablet by ity of tablet 00:00: mouth in [place] 00 the Medical morning Branch and 1 tablet in the evening. metoprolol 2021-0 Yes [id number] 50mg Take 1 Univers succinate 9-18 tablet by ity o f XL 50 mg 24 00:00: mouth in [place] hr tablet 00 the Medical morning. Branch spironolact 2021-0 Yes [id number] 25mg Take 1 Univers one 25 mg 9-18 tablet by ity o f tablet 00:00: mouth in [place] 00 the Medical morning. Branch furosemide 2021-0 Yes [id number] 40mg Take 1 Univers 40 mg 9-18 tablet by ity of tablet 00:00: mouth in [place] 00 the Medical morning Branch and 1 tablet in the evening. metoprolol 2021- Yes [id number] 50mg Take 1 Univers succinate 9-18 tablet by ity o f XL 50 mg 24 00:00: [place] in [place] hr tablet 00 the Medical morning. Branch spironolact Yes [id number] 25mg Take 1 Univers one 25 mg 9-18 tablet by ity o f tablet 00:00: mouth in [place] 00 the Medical morning. Branch aspirin Yes 81mg Take 81 mg Univ ers (ASPIR-LOW 9-17 by mouth 2 ity of ORAL) 21:46: (two) [place] [address] times Medical daily. Branch insulin Yes 15U inject 15 Unive rs glargine,hu 9-17 Units ity of m.rec.anlog 21:46: under the [place] (LANTUS 23 skin. Medical U-100 Branch INSULIN SC) losartan 25 Yes 1{tbl} Take 1 Un rita mg tablet 9-17 tablet by ity o f 21:46: mouth in [place] 23 the Medical morning. Branch montelukast Yes 1{tbl} Take 1 Un rita 10 mg 9-17 tablet by ity of tablet 21:46: mouth in [place] 23 the Medical morning. Branch albuterol Yes 2{puff} Take 2 Uni vers sulfate 9-17 Puffs by ity of (PROAIR 21:46: mouth as [place] RESPICLICK) 23 needed for Me dical 90 Cough. Branch mcg/actuati Cough, on AePB wheezing aspirin Yes 81mg Take 81 mg Univ ers (ASPIR-LOW 9-17 by mouth 2 ity of ORAL) 21:46: (two) [place] 23 times Medical daily. Branch insulin Yes 15U inject 15 Unive rs glargine,hu 9-17 Units ity of m.rec.anlog 21:46: under the [place] (LANTUS 23 skin. Medical U-100 Branch INSULIN SC) losartan 25 Yes 1{tbl} Take 1 Un rita mg tablet 9-17 tablet by ity o f 21:46: mouth in [place] 23 the Medical morning. Branch montelukast Yes 1{tbl} Take 1 Un rita 10 mg 9-17 tablet by ity of tablet 21:46: mouth in [place] 23 the Medical morning. Branch albuterol Yes 2{puff} Take 2 Uni vers sulfate 9-17 Puffs by ity of (PROAIR 21:46: mouth as [place] RESPICLICK) 23 needed for Me dical 90 Cough. Branch mcg/actuati Cough, on AePB wheezing aspirin Yes 81mg Take 81 mg Univ ers (ASPIR-LOW 9-17 by mouth 2 ity of ORAL) 21:46: (two) [place] [address] times Medical daily. Branch insulin Yes 15U inject 15 Unive rs glargine,hu 9-17 Units ity of m.rec.anlog 21:46: under the [place] (LANTUS 23 skin. Medical U-100 Branch INSULIN SC) losartan 25 Yes 1{tbl} Take 1 Un rita mg tablet 9-17 tablet by ity o f 21:46: mouth in [place] 23 the Medical morning. Branch montelukast Yes 1{tbl} Take 1 Un rita 10 mg 9-17 tablet by ity of tablet 21:46: mouth in [place] [address] the Medical morning. Branch albuterol Yes 2{puff} Take 2 Uni vers sulfate 9-17 Puffs by ity of (PROAIR 21:46: mouth as [place] RESPICLICK) 23 needed for Me dical 90 Cough. Branch mcg/actuati Cough, on AePB wheezing metoprolol 2021- No 1{tbl} Take 1 Un rita tartrate 50 07-27 tablet by it y of mg tablet 15:21: 00:00 mouth in [place] as 48 :00 the Medical morning Branch [...] Branch 07/26/22 at 2030, Routine atorvastati Yes [id number] 40mg Take 1 Univers n 40 mg 9-17 tablet by ity of tablet 00:00: mouth at [place] 00 bedtime. [facility] Branch apixaban Yes 1358 5mg Take 1 Univers (ELIQUIS) 5 9-17 tablet by ity of mg tablet 00:00: [place] 00 the Medical morning Branch and 1 tablet in the evening. Indication s: atrial fibrillati on atorvastati Yes [id number] 40mg Take 1 Univers n 40 mg 9-17 tablet by ity of tablet 00:00: mouth at [place] 00 bedtime. [facility] Branch apixaban Yes 1358 5mg Take 1 Univers (ELIQUIS) 5 9-17 tablet by ity of mg tablet 00:00: [place] 00 the Medical morning Branch and 1 tablet in the evening. Indication s: atrial fibrillati on atorvastati Yes [id number] 40mg Take 1 Univers n 40 mg 9-17 tablet by ity of tablet 00:00: mouth at [place] 00 bedtime. [facility] Branch apixaban Yes 1358 5mg Take 1 [...] Fri Medical 07/26/22 at Branch 1615, Until 07/26/22 at 1651, Routine, CV Intraproce dure nitroglycer [...] Routine, Surgery/Pr ocedure, CV Preprocedu re aspirin 2021-0 2021- No 325mg 325 mg, Unive rs [...] last Branch Fsbg modificati Testing on) on [facility] 07/25/22 at 1999, Until Discontinu ed, Routine Sliding 2021- No Subcutaneo Uni vers Scale 07-26 us, Q6H, ity of Insulin - 01:00: 04:46 First dose [place] Lispro 00 :24 (after Medical (HumaLOG) + last Branch Fsbg modificati Testing on) on [facility] 07/25/22 at 1999, Until Discontinu ed, Routine magnesium 2021- No 2g 2 g, IV Univ ers sulfate in 07-26 Piggyback, it y of water 2 00:45: 03:11 Administer [place] as gram/50 mL 00 :00 over 60 Medica l (4 %) Minutes, Branch infusion 2 ONCE, 1 g dose, On [facility] 07/25/22 at 1945, Routine metOLazone 2021- No 2.5mg 2.5 mg, Un rita (ZAROXOLYN) 07-25 Oral, ity of tablet 2.5 16:00: 15:24 DAILY, [place] mg 00 :46 First dose Medical on [facility] Branch 07/25/22 at 1100, Until Discontinu ed, Routine furosemide 2021- No 60mg 60 mg, IV U nivers (LASIX) 07-25 Push, TID, ity o f injection 14:00: 14:53 First dose [place] 60 mg 00 :03 (after Medical last Branch modificati on) on [facility] 07/25/22 at 0900, Until Discontinu ed, LORI insulin 2021- No 13U 13 Units, Univ ers glargine 07-25 Subcutaneo ity of (LANTUS 14:00: 21:17 us, DAILY, [place] as U-100) 00 :43 First dose Medical injection (after Branch 13 Units last modificati on) on [facility] 07/25/22 at 0900, Until Discontinu ed insulin Yes 3U 3 Units, Univer s lispro 07-25 Subcutaneo ity of (human) 13:00: us, TID [place] (HumaLOG 00 MEALS, Medical U-100) First dose Branch injection 3 (after Units last modificati on) on [facility] 07/25/22 at 0800, Until Discontinu ed, Routine insulin No 3U 3 Units, Unive rs lispro 07-25 Subcutaneo ity of (human) 13:00: 04:46 us, TID [place] (HumaLOG 00 :24 MEALS, Medical U-100) First dose Branch injection 3 (after Units last modificati on) on [facility] 07/25/22 at 0800, Until Discontinu ed, Routine [...] Medical (after Branch last modificati on) on 07/24/22 at 2000, Until Discontinu ed, LORI insulin No 2U 2 Units, Unive rs lispro [...] :00 ONCE, 1 Medical dose, On Branch Fri07/24/22 at 0900, Routine albuterol Yes 2{puff} 2 Puff, Un rita (VENTOLIN) 07-24 Inhalation ity of inhaler 2 07:45: , Q6HPRN, [place] Puff 53 Starting Medical on Fri07/24/22 at 0245, Until Discontinu ed, Routine, Wheezing, Shortness of Breath albuterol 2021- No 2{puff} 2 Puff, U nivers (VENTOLIN) 07-24 Inhalation it y of inhaler 2 07:45: 04:46 , Q6HPRN, [place] Puff 53 :24 Starting Medical on Fri07/24/22 at 0245, Until 07/27/22 at 2346, Routine, Wheezing, Shortness of Breath magnesium 2021- No 4g 4 g, IV Univ ers sulfate in 07-24 Piggyback, it y of water 4 06:15: 08:14 ONCE, 1 [place] gram/50 mL 00 :00 dose, On Medic al (8 %) IV Fri [place] Piggyback 4 07/24/22 at g 0115, Routine [...]
heparin Yes 1000U/h 1,000 Univer s 25,000 07-24 Units/hr ity of Units/250 05:29: (10 [place] [...] Rang e, Dosing and Testing: &nbs p;FOR [facility], [facility], AND [facility] ONLY - aPTT < 35: & nbsp;Bolus [...] 37 :24 mL/hr), IV Medical (Premixed Infusion, Bran h Bag) in TITRATE, 0.45 % NS [...] e, Dosing and Testing: &nbs p;FOR [place], [facility], AND [facility] ONLY - aPTT < [...] INITIAL BOLUS OR INITIAL INFUSION RATE.
HYDROcodone 0 Yes 1{tbl} 1 tablet, Univers -acetaminop 07-23 Oral, ity of hen (NORCO 15:31: Q6HPRN, [place] 5) 5-325 mg 53 Starting Medi jose tablet 1 on Tue Branch tablet 07/23/22 at 1031, Until Discontinu ed, Routine, Pain (scale 4-6) HYDROcodone 0 2021- No 1{tbl} 1 tablet, Univers -acetaminop 07-23 09-18 Oral, ity of hen (NORCO 15:31: 04:46 Q6HPRN, [place] 5) 5-325 mg 53 :24 Starting Medi jose tablet 1 on Tue Branch tablet 07/23/22 at 1031, Until 07/27/22 at 2346, Routine, Pain (scale 4-6) spironolact Yes 25mg 25 mg, Univ ers one 07-22 Oral, ity of (ALDACTONE) 14:00: DAILY, [place] tablet 25 00 First dose Medi jose mg on [facility] 07/22/22 at 0900, Until Discontinu ed, Routine aspirin Yes 81mg 81 mg, Univers chewable 07-22 [...] at 0900, Until Discontinu ed, Routine aspirin 2021- No 81mg 81 mg, Univers chewable 07-22 [...] First dose [place] mg 00 on [facility] 07/21/22 at Branch 2100, Until Discontinu ed, Routine atorvastati 2021- No 40mg 40 mg, Uni vers n (LIPITOR) 07-22 Oral, QHS, i ty of tablet 40 02:00: 04:46 First dose [place] mg 00 :24 on [facility] 07/21/22 at Branch 2100, Until Discontinu ed, Routine morpHINE (2 2021- No 2mg 2 mg, Slow Univers mg/mL) 07-22 IV Push, ity of injection 2 01:29: 15:32 Q6HPRN, [place] mg 07 :09 Starting Medical on [facility] 07/21/22 at 2029, Until Fri07/23/22 at 1032, Routine, Chest pain furosemide 2021- No 20mg 20 mg, IV U nivers (LASIX) 07-22 Push, ity of injection 01:00: 05:27 Q12H, [place] 20 mg 00 :42 First dose Medical (after Branch last reorder) on [place] 07/21/22 at 2000, Until Discontinu ed, LORI enoxaparin 2021- No 1mg/kg 100 mg Un rita (LOVENOX) 07-22 (rounded ity o f injection 01:00: 05:30 [place] 98.5 [place] 100 mg 00 :31 mg = 1 Medical mg/kg Branch ?98.5 kg), [facility], Q12H, First dose (after last modificati on) on [place] 07/21/22 at 2000, Until Discontinu ed, Routine sulfur No [id number] 5mL 5 mL, Unive rs hexafluorid 07-21 Intravenou i ty of e microsphr 15:45: 15:45 s, ONCE, 1 [place] (LUMASON) 00 :00 dose, On Medica l injection 5 Sun Branch mL 07/21/22 at 1045, Routine
geosciences faculty member approving Restricted medication : ANA LUISA GRIMM insulin No 10U 10 Units, Univ ers glargine 07-21 Subcutaneo ity of (LANTUS 14:00: 14:09 us, DAILY, [place] U-100) 00 :20 First dose Medical injection on [place] Branch 10 Units 07/21/22 at 0900, Until [...] dose [place] Lispro 00 :26 on [facility] Medical (HumaLOG) + 07/20/22 at Br anch [...] swallow or has mental changes. dextrose 50 2021- No 25mL 25 mL, Uni vers % in water 07-20 Slow IV ity o f (D50W) 23:48: 04:46 Push, PRN, [place] injection 16 :24 Starting Medica l 25 mL on [facility] Branch 07/20/22 at 1848, Until 07/27/22 at 2346, LORI, Blood Glucose < or = 70 mg/dL and patient is unable to swallow or has mental status changes. metoprolol No 25mg 25 mg, Univ ers tartrate 07-20 Oral, Q6H, ity of (LOPRESSOR) 23:00: 23:26 First dose [place] tablet 25 00 :53 (after Medical mg last Branch reorder) on [facility] 07/20/22 at 1800, Until Discontinu ed, Routine digoxin 2021- No 500ug 500 mcg, Univ ers (LANOXIN) 07-20 Intravenou ity of injection 22:30: 22:22 s, ONCE, 1 [place] 500 mcg 00 :00 dose, On Medical Sat Branch 07/20/22 at 1730, Routine enoxaparin 2021- No 40mg 40 mg, Univ ers (LOVENOX) 07-20 Subcutaneo ity of injection 22:00: 23:46 us, DAILY, [place] 40 mg 00 :32 First dose Medical on [facility] Branch 07/20/22 at 1700, Until Discontinu ed, [...] 500mL at 999 Univ ers (NS) bolus 07-2010 mL/hr, 500 it y of infusion 17:00: [...] Meghana 1 puff Com mon Ellipta Ellipta 212 06 [facility] 00:00: 00:00 - [facility]I 00 :00 [facility] HydrOXYzine HydrOXYzine Yes Meghana 1 tablet Common HCl HCl 05-11 [facility] as needed Spirit 00:00: - CHI 00 [facility] Ozempic Ozempic 2020- No Meghana 0.5 mg Com mon 05-11 0824 [facility] 00:00: 00:00 - [facility]I 00 :00 [facility] Januvia Januvia Yes Meghana as Common 1 [place] directed Spirit 00:00: - [facility] 00 [facility] ProAir ProAir Yes Meghana 2 puffs as Comm on RespiClick RespiClick [facility] needed [facility] [place] 3 [place] 3 Yes Emghana 1 capsule Com mon [facility] Montelukast Montelukast Yes Meghana 1 tablet Common Sodium Sodium [facility] in the [facility] evening [facility] Lipitor Lipitor Yes Meghana 1 tablet Comm on Lewis [facility] Losartan Losartan Yes Meghana 1 tablet Co mmon Potassium Potassium [facility] it [facility] Metoprolol Metoprolol Yes Meghana 1 tablet Common Tartrate Tartrate Lewis with food S pirit [facility] Metformin Metformin Yes Meghana 1 tablet Common HCl HCl Lewis with a Spirit meal [facility] Immunizations Ordered Immunization Filled Immunization Date Status Commen ts Source Name Name FLUZONE HIGH DOSE FLUZONE HIGH DOSE 2019-09-14 Completed Common [facility] OVER 65 OVER 65 00:00:00 [facility] Vital Signs Vital Name Observation Time Observation Value Comments Source WEIGHT 2023-03-18 08:48:00 95 kg WEIGHT 2023-03-13 10:37:00 93.3 kg WEIGHT 2023-03-12 05:44:00 99.8 kg WEIGHT 2023-03-10 05:00:00 100 kg WEIGHT 2023-03-09 06:00:00 100.7 kg HEIGHT 2023-03-08 21:00:00 170.2 cm WEIGHT 2023-03-08 02:00:00 104.6 kg WEIGHT 2023-03-18 08:48:00 95 kg WEIGHT 2023-03-13 10:37:00 93.3 kg WEIGHT 2023-03-12 05:44:00 99.8 kg WEIGHT 2023-03-10 05:00:00 100 kg WEIGHT 2023-03-09 06:00:00 100.7 kg HEIGHT 2023-03-08 21:00:00 170.2 cm WEIGHT 2023-03-08 02:00:00 104.6 kg Systolic blood 2022-07-28 01:43:00 99 mm[Hg] [facility] Diastolic blood 2022-07-28 01:43:00 58 mm[Hg] [facility]ive [facility] Heart rate 2022-07-28 01:40:00 97 /min [facility] Body temperature 2022-07-28 01:40:00 36.56 Melvi [facility] Respiratory rate 2022-07-28 01:40:00 18 /min [facility] Oxygen saturation in 2022-07-28 01:40:00 90 /min [facility] Arterial blood by [facility] Pulse oximetry [place] Body height 2022-07-26 17:49:00 172.7 cm [facility] Body weight 2022-07-26 17:49:00 96.163 kg [facility] BMI 2022-07-26 17:49:00 32.23 kg/m2 [facility] Systolic blood 2022-07-26 23:31:00 102 mm[Hg] [facility]iver [facility] Diastolic blood 2022-07-26 23:31:00 59 mm[Hg] Unive rs[facility] Heart rate 2022-07-26 23:31:00 85 /min [facility] Body temperature 2022-07-26 23:31:00 36.56 Melvi [facility] 2022-07-26 23:24:00 19 /min [facility] Oxygen saturation in 2022-07-26 23:24:00 93 /min [facility] Arterial blood by [facility] Pulse oximetry [place] Body height 2022-07-26 17:49:00 172.7 cm [facility] Body weight 2022-07-26 17:49:00 96.163 kg [facility] BMI 2022-07-26 17:49:00 32.23 kg/m2 [facility] Procedures Procedure Date / Time Performing Clinician Source Performed POCT GLUCOSE (AUTOMATED) 2022-07-27 16:45:00 Hay Alcantar Uni [facility] POCT GLUCOSE (AUTOMATED) 2022-07-27 16:45:00 Hay Alcantar Uni [facility] MAGNESIUM 2022-07-27 10:46[facility] (NA, 2022-07-27 10:46:00 Dominique [facility] K, CL, CO2, GLUCOSE, BUN, Medica l Branch CREATININE, CA) N-TERMINAL PRO-BNP 2022-07-27 10:46:[address] [facility] MAGNESIUM 2022-07-27 10:46[facility] METABOLIC PANEL (NA, 2022-07-27 10:46:00 Dominique [facility] K, CL, CO2, GLUCOSE, BUN, Medica l Branch CREATININE, CA) N-TERMINAL PRO-BNP 2022-07-27 10:46[facility] ([facility]OMATED) 2022-07-27 10:38:00 Hay Alcantar Uni [facility] POCT GLUCOSE (AUTOMATED) 2022-07-27 10:38:00 Hay Alcantar Uni [facility] POCT GLUCOSE (AUTOMATED) 2022-07-27 04:51:00 Hay Alcantar Uni [facility] POCT GLUCOSE (AUTOMATED) 2022-07-27 04:51:00 Hay Alcantar Uni versity of [facility] POCT GLUCOSE (AUTOMATED) 2022-07-27 01:10:00 Hay Alcantar Uni versity of [facility] POCT GLUCOSE (AUTOMATED) 2022-07-27 01:10:00 Hay Alcantar Uni versity of [facility] POCT GLUCOSE (AUTOMATED) 2022-07-26 23:37:00 Hay Alcantar Uni versity of [facility] POCT GLUCOSE (AUTOMATED) 2022-07-26 23:37:00 Hay Alcantar Uni versity of [facility] ACTIVATED PARTIAL THRMPLAS 2022-07-26 23:10:00 Evelio Soni niversalberto of [facility] ACTIVATED PARTIAL THRMPLAS 2022-07-26 23:10:00 Evelio Soni niversity of [facility] CARDIAC CATHETERIZATION 2022-07-26 21:16:04 [facility] ersity of [facility] CARDIAC CATHETERIZATION 2022-07-26 21:16:04 Sherman [facility] ersity of [facility] CARDIAC CATHETERIZATION 2022-07-26 21:16:04 [facility] ersity of [facility] CARDIAC CATHETERIZATION 2022-07-26 21:16:04 [facility] ersity of [facility] CARDIAC CATHETERIZATION 2022-07-26 21:16:04 [facility] ersity of [facility] CARDIAC CATHETERIZATION 2022-07-26 21:16:04 Sherman [facility] ersity of [facility] CARDIAC CATHETERIZATION 2022-07-26 21:16:04 Sherman [facility] ersity of [facility] CARDIAC CATHETERIZATION 2022-07-26 21:16:04 Sherman [facility] ersity of [facility] CATH PROCEDURE LOG 2022-07-26 20:55:[address] [facility] CATH PROCEDURE LOG 2022-07-26 20:55:04 [facility] ([facility]OMATED) 2022-07-26 16:20:00 ShermanHay versity of [facility] POCT GLUCOSE (AUTOMATED) 2022-07-26 16:20:00 Keo Alcantararmaan Russo versity of [facility] POCT GLUCOSE (AUTOMATED) 2022-07-26 12:30:00 ShermanHay Uni versity of [facility] POCT GLUCOSE (AUTOMATED) 2022-07-26 12:30:00 Sherman Davidarmaan Uni versity of [facility] POCT GLUCOSE (AUTOMATED) 2022-07-26 11:08:00 Keo Alcantararmaan Russo versity of [facility] POCT GLUCOSE (AUTOMATED) 2022-07-26 11:08:00 Hay Alcantar Rafaela versity of [facility] POCT GLUCOSE (AUTOMATED) 2022-07-26 08:52:00 ShermanHay versity of [facility] POCT GLUCOSE (AUTOMATED) 2022-07-26 08:52:00 ShermanDavidarmaan reeves [facility] MAGNESIUM 2022-07-26 05:35:00 Tobias [facility] BASIC METABOLIC PANEL (NA, 2022-07-26 05:35:00 Tobias [facility] K, CL, CO2, GLUCOSE, BUN, Medica l Branch CREATININE, CA) ACTIVATED PARTIAL THRMPLAS 2022-07-26 05:35:00 Evelio Soni [facility] EXTRA TUBE LAV 2022-07-26 05:35:00 Sherman [facility] o f [facility] MAGNESIUM 2022-07-26 05:35:00 Tobias [facility] BASIC METABOLIC PANEL (NA, 2022-07-26 05:35:00 [facility], [facility], CO2, GLUCOSE, BUN, Medica l Branch CREATININE, CA) ACTIVATED PARTIAL THRMPLAS 2022-07-26 05:35:00 Evelio Soni [facility] EXTRA TUBE LAV 2022-07-26 05:35:00 Keo Alcantar Hira o f [facility] POCT GLUCOSE (AUTOMATED) 2022-07-26 05:20:00 Hay Alcantar Uni versity of [facility] POCT GLUCOSE (AUTOMATED) 2022-07-26 05:20:00 Hay Alcantar Uni versity of [facility] POCT GLUCOSE (AUTOMATED) 2022-07-26 01:45:00 Hay Alcantar Uni versity of [facility] POCT GLUCOSE (AUTOMATED) 2022-07-26 01:45:00 Hay Alcantar Uni versity [facility] MAGNESIUM 2022-07-25 22:15:00 Tobias [facility] BASIC METABOLIC PANEL (NA, 2022-07-25 22:15:00 [facility], CO2, GLUCOSE, BUN, Medica l Branch CREATININE, CA) ACTIVATED PARTIAL THRMPLAS 2022-07-25 22:15:00 Evelio Soni [facility] MAGNESIUM 2022-07-25 22:15:00 Marianne [facility] BASIC METABOLIC PANEL (NA, 2022-07-25 22:15:00 [facility], CL, CO2, GLUCOSE, BUN, Medica l Branch CREATININE, CA) ACTIVATED PARTIAL THRMPLAS 2022-07-25 22:15:00 Evelio Soni [facility] POCT GLUCOSE (AUTOMATED) 2022-07-25 21:22:00 Hay Alcantar Uni versity of [facility] POCT GLUCOSE (AUTOMATED) 2022-07-25 21:22:00 Hay Alcantar Uni versity of [facility] POCT GLUCOSE (AUTOMATED) 2022-07-25 20:46:00 Hay [facility] (AUTOMATED) 2022-07-25 20:46:00 AvinashbettyHay rodriguez Uni versity [facility] POCT GLUCOSE (AUTOMATED) 2022-07-25 17:09:00 AvinashbettyHay rodriguez Uni versity [facility] POCT GLUCOSE (AUTOMATED) 2022-07-25 17:09:00 ShermanHay Uni versity [facility] HB ECG ROUTINE & RHYTHM 2022-07-25 14:53:13 TobiasDavidarmaan Uni versity [facility] ACTIVATED PARTIAL THRMPLAS 2022-07-25 14:53:00 [facility] ACTIVATED PARTIAL THRMPLAS 2022-07-25 14:53:00 [facility] POCT GLUCOSE (AUTOMATED) 2022-07-25 13:12:00 ShermanHay [facility] PO[facility] GLUCOSE (AUTOMATED) 2022-07-25 13:12:00 ShermanHay [facility] MAGNESIUM 2022-07-25 11:36:00 Tobias [facility] BASIC METABOLIC PANEL (NA, 2022-07-25 11:36:00 [facility], [facility], CO2, GLUCOSE, BUN, Medica l Branch CREATININE, CA) CBC WITH DIFF 2022-07-25 11:36:00 Tobias [facility] MAGNESIUM 2022-07-25 11:36:00 Tobias [facility] BASIC METABOLIC PANEL (NA, 2022-07-25 11:36:00 [facility], CL, CO2, GLUCOSE, BUN, Medica l Branch CREATININE, CA) CBC WITH DIFF 2022-07-25 [facility]:36[facility] 2022-07-25 05:15:00 Evelio Soni [facility] ACTIVATED PARTIAL THRMPLAS 2022-07-25 05:15:00 Evelio Soni [facility] POCT GLUCOSE (AUTOMATED) 2022-07-25 01:58:00 Hay Alcantar Uni versity of [facility] POCT GLUCOSE (AUTOMATED) 2022-07-25 01:58:00 Hay Alcantar Uni versity of [facility] MAGNESIUM 2022-07-24 22:34:00 Tobias [facility] BASIC METABOLIC PANEL (NA, 2022-07-24 22:34:00 [facility], CL, CO2, GLUCOSE, BUN, Medica l Branch CREATININE, CA) ACTIVATED PARTIAL THRMPLAS 2022-07-24 22:34:00 Evelio Soni [facility] MAGNESIUM 2022-07-24 22:34:00 Tobias [facility] BASIC METABOLIC PANEL (NA, 2022-07-24 22:34:00 [facility], CL, CO2, GLUCOSE, BUN, Medica l Branch CREATININE, CA) ACTIVATED PARTIAL THRMPLAS 2022-07-24 22:34:00 Evelio Soni [facility] POCT GLUCOSE (AUTOMATED) 2022-07-24 20:43:00 Hay Alcantar Uni versity of [facility] POCT GLUCOSE (AUTOMATED) 2022-07-24 20:43:00 Hay Alcantar Uni versity of [facility] POCT GLUCOSE (AUTOMATED) 2022-07-24 17:11:00 Hay Alcantar Uni versity of [facility] POCT GLUCOSE (AUTOMATED) 2022-07-24 17:11:00 Hay Alcantar Uni versity of [facility] POCT GLUCOSE (AUTOMATED) 2022-07-24 14:11:00 Hay Alcantar Uni versity of [facility] POCT GLUCOSE (AUTOMATED) 2022-07-24 14:11:00 Hay Alcantar Uni versity of [facility] ACTIVATED PARTIAL THRMPLAS 2022-07-24 11:37:00 Evelio Soni niversalberto of [facility] ACTIVATED PARTIAL THRMPLAS 2022-07-24 11:37:00 Evelio Soni niversalberto [facility] MAGNESIUM 2022-07-24 05:51:00 Evelio Soni [facility] BASIC METABOLIC PANEL (NA, 2022-07-24 05:51:00 Evelio Soni [facility] K, CL, CO2, GLUCOSE, BUN, Medica l Branch CREATININE, CA) PROTHROMBIN TIME / INR 2022-07-24 05:51:00 Evelio Soni [facility] ACTIVATED PARTIAL THRMPLAS 2022-07-24 05:51:00 Evelio Soni nivrosalee [facility] MAGNESIUM 2022-07-24 05:51:00 Evelio Soni [facility] BASIC METABOLIC PANEL (NA, 2022-07-24 05:51:00 Evelio Soni [facility] K, CL, CO2, GLUCOSE, BUN, Medica l Branch CREATININE, CA) PROTHROMBIN TIME / INR 2022-07-24 05:51:00 Evelio Soni [facility] ACTIVATED PARTIAL THRMPLAS 2022-07-24 05:51:00 [facility]SE (AUTOMATED) 2022-07-24 01:53:00 Atul Stephens versity of [facility] POCT GLUCOSE (AUTOMATED) 2022-07-24 01:53:00 Atul Stephens Uni versity of [facility] POCT GLUCOSE (AUTOMATED) 2022-07-23 21:31:00 Atul Stephens Uni versity of [facility] POCT GLUCOSE (AUTOMATED) 2022-07-23 21:31:00 Atul Stephens Uni versity of [facility] POCT GLUCOSE (AUTOMATED) 2022-07-23 17:08:00 Atul Stephens Uni versity of [facility] POCT GLUCOSE (AUTOMATED) 2022-07-23 17:08:00 Atul Stephens versity of [facility] POCT GLUCOSE (AUTOMATED) 2022-07-23 12:46:00 [facility] ([facility]OMATED) 2022-07-23 12:46:00 [facility] 2022-07-23 09:15:00 George Vizcaino [facility] BASIC METABOLIC PANEL (NA, 2022-07-23 09:15:00 [facility], CL, CO2, GLUCOSE, BUN, Medica l Branch CREATININE, CA) CBC WITH DIFF 2022-07-23 09:15:00 [facility]-BNP 2022-07-23 09:15:00 George Vizcaino [facility] MAGNESIUM 2022-07-23 09:15:00 [facility] BASIC METABOLIC PANEL (NA, 2022-07-23 09:15:00 [facility] K, CL, CO2, GLUCOSE, BUN, Medica l Branch CREATININE, CA) CBC WITH DIFF 2022-07-23 09:15:00 Charis [facility] N-TERMINAL PRO-BNP 2022-07-23 09:15:00 George Vizcaino [facility] POCT GLUCOSE (AUTOMATED) 2022-07-23 02:12:00 [facility]SE (AUTOMATED) 2022-07-23 02:12:00 [facility] PO[facility] GLUCOSE (AUTOMATED) 2022-07-22 21:12:00 [facility] POCT GLUCOSE (AUTOMATED) 2022-07-22 21:12:00 [facility] POCT GLUCOSE (AUTOMATED) 2022-07-22 16:30:00 Atul Stephens versity [facility] POCT GLUCOSE (AUTOMATED) 2022-07-22 16:30:00 [facility] POCT GLUCOSE (AUTOMATED) 2022-07-22 12:51:00 Atul Stephens [facility] POCT GLUCOSE (AUTOMATED) 2022-07-22 12:51:00 Atul Stephens [facility] PHOSPHORUS 2022-07-22 08:19:00 [facility] 2022-07-22 08:19:00 Angelo [facility] HEPATIC FUNCTION PANEL 2022-07-22 08:19:00 Atul Stephens [facility] ([id number]) (ALB,T.PRO,BILI Medical Branch T,BU/BC,ALT,AST,ALK PHOS) BASIC METABOLIC PANEL (NA, 2022-07-22 08:19:00 Atlu Stephens [facility] K, CL, CO2, GLUCOSE, BUN, Medica l Branch CREATININE, CA) CBC WITH DIFF 2022-07-22 08:19:00 Angelo [facility] N-TERMINAL PRO-BNP 2022-07-22 08:19:00 Atul Stephens [facility] PHOSPHORUS 2022-07-22 08:19:00 [facility]UM 2022-07-22 08:19:00 Angelo [facility] HEPATIC FUNCTION PANEL 2022-07-22 08:19:00 Atul Stephens [facility] ([id number]) (ALB,T.PRO,[facility] T,BU/BC,ALT,AST,ALK PHOS) BASIC METABOLIC PANEL (NA, 2022-07-22 08:19:00 Atul Stephens [facility] K, CL, CO2, GLUCOSE, BUN, Medica l Branch CREATININE, CA) CBC WITH DIFF 2022-07-22 08:19:00 Angelo [facility] N-TERMINAL PRO-BNP 2022-07-22 08:19:00 Angelo Atul [facility] POCT GLUCOSE (AUTOMATED) 2022-07-22 01:44:00 Atul Stephens [facility] POCT GLUCOSE (AUTOMATED) 2022-07-22 01:44:00 Atul Stephens versity of [facility] POCT GLUCOSE (AUTOMATED) 2022-07-21 21:52:00 Atul Stephens versity of [facility] POCT GLUCOSE (AUTOMATED) 2022-07-21 21:52:00 Autl Stephens versity of [facility] POCT GLUCOSE (AUTOMATED) 2022-07-21 16:43:00 Atul Stephens versity of [facility] POCT GLUCOSE (AUTOMATED) 2022-07-21 16:43:00 Atul Stephens versity of [facility] TRANSTHORACIC ECHO (TTE) 2022-07-21 15:28:00 [facility] W/ CONTRAST Medical [facility] TRANSTHORACIC ECHO (TTE) 2022-07-21 15:28:00 Atul Stephens [facility] W/ CONTRAST [facility] POCT GLUCOSE (AUTOMATED) 2022-07-21 15:00:00 Atul Stephens versity of [facility] POCT GLUCOSE (AUTOMATED) 2022-07-21 15:00:00 Atul Stephens versity of [facility] POCT GLUCOSE (AUTOMATED) 2022-07-21 13:04:00 Atul Stephens versity of [facility] POCT GLUCOSE (AUTOMATED) 2022-07-21 13:04:00 [facility] MAGNESIUM 2022-07-21 09:41:00 Atul Stephens [facility] TROPONIN I 2022-07-21 09:41:00 Atul Stephens [facility] BASIC METABOLIC PANEL (NA, 2022-07-21 09:41:00 [facility], CL, CO2, GLUCOSE, BUN, Medica l Branch CREATININE, CA) LIPID PANEL ([id number])(TOTAL 2022-07-21 09:41:00 Ana Luisa [facility] CHOLE[facility], [facility] TRIGLYCERIDES, HDL) CBC WITH DIFF 2022-07-21 09:41:00 Atul Stephens [facility] N-TERMINAL PRO-BNP 2022-07-21 09:41:00 Atul Stephens [facility] MAGNESIUM 2022-07-21 09:41:00 Atul Stephens [facility] TROPONIN I 2022-07-21 09:41:00 Atul Stephens [facility] BASIC METABOLIC PANEL (NA, 2022-07-21 09:41:00 Atul Stephens [facility] K, CL, CO2, GLUCOSE, BUN, Medica l Branch CREATININE, CA) LIPID PANEL ([id number])(TOTAL 2022-07-21 09:41:00 Ana Luisa Grimm [facility] CHOLESTEROL, [facility] TRIGLYCERIDES, HDL) CBC WITH DIFF 2022-07-21 09:41:00 Atul Stephens [facility] N-TERMINAL PRO-BNP 2022-07-21 09:41:00 Atul Stephens [facility] POCT GLUCOSE (AUTOMATED) 2022-07-21 04:09:00 Atul Stephens [facility] POCT GLUCOSE (AUTOMATED) 2022-07-21 04:09:00 Atul Stephens [facility] BLOOD CULTURE SCREEN 2022-07-21 01:45:00 Atul Stephens [facility] BLOOD CULTURE WORKUP 2022-07-21 01:45:00 Atul Stephens [facility] GRAM POSITIVE BLOOD 2022-07-21 01:45:00 Atul Stephens [facility] PATHOGENS [facility] [place] PROBE-AEROBIC BLOOD CULTURE SCREEN 2022-07-21 01:45:00 Atul Stephens [facility] BLOOD CULTURE WORKUP 2022-07-21 01:45:00 Atul Stephens [facility] GRAM POSITIVE BLOOD 2022-07-21 01:45:00 Atul Stephens [facility] [place] PROBE-AEROBIC POCT GLUCOSE (AUTOMATED) 2022-07-21 01:26:00 Atul Stephens [facility] POCT GLUCOSE (AUTOMATED) 2022-07-21 01:26:00 Atul Stephens [facility] BLOOD CULTURE SCREEN 2022-07-20 23:43:00 Atul Stephens [facility] BLOOD CULTURE SCREEN 2022-07-20 23:43:00 Atul Stephens [facility] POCT GLUCOSE (AUTOMATED) 2022-07-20 22:24:00 Atul Stephens [facility] POCT GLUCOSE (AUTOMATED) 2022-07-20 22:24:00 Atul Stephens [facility] URINALYSIS 2022-07-20 17:41:00 Charlene Butt [facility] URINALYSIS 2022-07-20 17:41:00 Charlene Butt [facility] XR CHEST 1 VW 2022-07-20 16:16:00 Charlene Butt [facility] XR CHEST 1 VW 2022-07-20 16:16:00 Charlene Butt [facility] TROPONIN I 2022-07-20 16:10:00 Charlene Butt [facility] COMP. METABOLIC PANEL 2022-07-20 16:10:00 Charlene Butt [facility] ([id number]) [facility] CBC WITH DIFF 2022-07-20 16:10:00 Charlene Butt [facility] GLYCOSYLATED HEMOGLOBIN 2022-07-20 16:10:00 Atul Stephens [facility] (A1C) [facility] PROTHROMBIN TIME / INR 2022-07-20 16:10:00 Charlene Butt [facility] ACTIVATED PARTIAL THRMPLAS 2022-07-20 16:10:00 Saniya Butt [facility] N-TERMINAL PRO-BNP 2022-07-20 16:10:[address] [facility] COVID-19 (ID NOW RAPID 2022-07-20 16:10:00 Charlene Butt [facility] TESTING) [facility] LAB ONLY COVID 2022-07-20 16:10:00 Charlene Butt [facility] INTERPRETATION Medical Branch TROPONIN I 2022-07-20 16:10:00 Charlene Butt [facility] COMP. METABOLIC PANEL 2022-07-20 16:10:00 Charlene Butt [facility] ([id number]) Medical Branch CBC WITH DIFF 2022-07-20 16:10:00 Charlene Butt [facility] GLYCOSYLATED HEMOGLOBIN 2022-07-20 16:10:00 Atul Stephens [facility] (A1C) Medical Branch PROTHROMBIN TIME / INR 2022-07-20 16:10:00 Charlene Butt [facility] acute hospital ACTIVATED PARTIAL THRMPLAS 2022-07-20 16:10:00 Saniya Butt [facility] N-TERMINAL PRO-BNP 2022-07-20 16:10:[address] [facility] COVID-19 (ID NOW RAPID 2022-07-20 16:10:00 Charlene Butt [facility] TESTING) Medical Branch LAB ONLY COVID 2022-07-20 16:10:00 Charlene Butt [facility] INTERPRETATION [facility] HB ECG ROUTINE & RHYTHM 2022-07-20 16:05:41 Charlene Butt [facility] HB ECG ROUTINE & RHYTHM 2022-07-20 16:05:41 Charlene Butt [facility] NOTICE OF PRIVACY 2022-07-20 15:52:39 Doctor Srinivas [facility] NOTICE OF PRIVACY 2022-07-20 15:52:39 Doctor Srinivas [facility] HOSPITAL ADMISSION 2022-07-20 05:01:00 Doctor Srinivas [facility] [place] [facility] HOSPITAL ADMISSION 2022-07-20 05:01:00 Doctor Srinivas [facility] [facility] Encounters Start End Encounter Admission Attending Care Care Encounter Source Date/Time Date/Time Type Type Clinicians Facility Department ID 2022-09-03 Outpatient 3 [id number] [place] [id number] [facility] 08:24:57 [facility] [place] 2022-09-02 Outpatient 3 [id number] ENC[facility] REF [id number] [facility] 14:07:05 1024 [facility] 2021-12-05 Outpatient MILAGROS Ayala [facility] [id number] Common 11:06:38 Meghana [address] [facility] 2023-03-24 2023-03-24 Outpatient OSCAR S[facility]TON [facility] [id number] SLE 00:00:00 00:00:00 [facility] 2023-03-20 2023-03-20 Outpatient OSCAR S[facility]TON [facility] [id number] [facility]H 00:00:00 00:00:00 [facility] 2023-03-08 2023-03-18 Inpatient ER YO HERRERA [facility] Cardiology 20 [id number] SLE 00:38:00 13:15:00 2022-08-15 2022-08-28 Inpatient 3 Julio, ENCPL CRD [id number] [facility] 18:17:00 12:00:00 Jose 1006 [facility] Re[facility] 2022-07-29 2022-07-29 Transition MUMTAZ Foster [id number] Univers 00:00:00 00:00:00 of Care Celsa BUSH [id number] it y of [place] [id number] [facility] 403 Branch 2022-07-20 2022-07-27 Hospital Charlene Butt [id number] Univers 11:00:00 21:45:00 Encounter Atul Stephens [id number] ity of [facility] 4.2.7.2 .686 [place] [id number] [facility] 089 Branch 2022-07-20 2022-07-27 Inpatient X SH[facility]MAN [facility] [id number] Univers 11:00:00 21:45:00 [facility] ity [facility] 2022-07-26 2022-07-26 Surgery JAMAL Cannon [id number] Univers 18:03:00 21:03:00 [place] GORDON [id number] [facility] 4.2.7.2.686 [facility] [id number] [facility] 840 Branch 2020-04-04 2020-04-04 [facility] [id number] Common 13:00:00 13:00:[address] [facility] 2020-03-22 2020-03-22 [facility] [id number] Common 15:20:00 15:20:[address] [facility] 2019-12-22 2019-12-22 [facility] [id number] Common 10:40:00 10:40:[address] [facility] 2019-12-15 2019-12-15 [facility] [id number] Common 14:00:00 14:00:[address] [facility] 2019-09-14 2019-09-14 [facility] [id number] Common 13:20:00 13:20:[address] [facility] 2019-05-11 2019-05-11 [facility] [id number] Common 13:00:00 13:00:[address] [facility] 2018-11-11 2018-11-11 [facility] [id number] Common 13:00:00 13:00:[address] [facility] 2018-10-19 2018-10-19 [facility] [id number] Common 08:30:00 08:30:[address] [facility] 2018-04-22 2018-04-22 [facility] [id number] Common 14:00:00 14:00:[address] [facility] Results Test Description Test Time Test Comments Results Result Comments Source POCT-GLUCOSE METER 2023-03-18 11:54:40 Test Item Value Reference Range Interpretation Comme nts POC-GLUCOSE METER (BEAKER) 170 mg/dL 70-110 H : TESTED AT [facility] [address] (test code = 1538) [facility] X, [id number]: Per Diem Physical Therapist/Techni dagmar ID = [id number] for DEVON ROBLES POCT-GLUCOSE [id number] 07:31:27 Test Item Value Reference Range Interpretation Comments POC-GLUCOSE METER 149 mg/dL 70-110 H : TESTED A T [facility] 6720 (BEAKER) (test code = [place], 1538) [id number]: Per Diem Physical Therapist/Techni dagmar ID = [id number] for DEVON YAN BASIC METABOLIC [id number] 04:23:51 Test Item Value Reference Range Interpretation Comments SODIUM (BEAKER) 132 meq/L 136-145 L (test code = 381) POTASSIUM 4.1 meq/L 3.5-5.1 (BEAKER) (test code = 379) CHLORIDE (BEAKER) 97 meq/L 98-107 L (test code = 382) CO2 (BEAKER) 27 meq/L 22-29 (test code = 355) BLOOD UREA 14 mg/dL 7-21 NITROGEN (BEAKER) (test code = 354) CREATININE 0.87 mg/dL 0.57-1.25 (BEAKER) (test code = 358) GLUCOSE RANDOM 148 mg/dL 70-105 H (BEAKER) (test code = 652) CALCIUM (BEAKER) 8.8 mg/dL 8.4-10.2 (test code = 697) EGFR (BEAKER) 93 Interpretatio n of eGFR (test code = mL/min/1.73 values Stage De scription 1092) sq m Result G1 Osiris l or high >=90 G2 Mildly decreased 60-89 G3a Mildl y to moderately 45-5 9 G3b Moderately to s everely 30-44 G4 Severl y decreased 15-29 G5 Kidney failure <15Reported eGF R is based on the CKD-EPI 2020 equation that d oes not use a race coefficientEsti mated GFR is not as accur ate as Creatinine Hanane araya in predicting glom erular filtration rate . Estimated GFR is not appl icable for dialysis patien ts Per Diem Physical Therapist ID - [id number] 04:23:51 Test Item Value Reference Range Interpretation Comments MAGNESIUM (BEAKER) (test code = 2.0 mg/dL 1.6-2.6 627) Per Diem Physical Therapist ID - [id number] (HEMOGRAM ONLY)2023-03-18 04:08:22 Test Item Value Reference Range Interpretation Comments WHITE BLOOD CELL COUNT (BEAKER) 14.0 K/ L 3.5-10.5 H (test code = 775) RED BLOOD CELL COUNT (BEAKER) 5.69 M/ L 4.63-6.08 (test code = 761) HEMOGLOBIN (BEAKER) (test code = 15.7 GM/DL 13.7-17.5 410) HEMATOCRIT (BEAKER) (test code = 49.2 % 40.1-51.0 411) MEAN CORPUSCULAR VOLUME (BEAKER) 87 fL 79-92 (test code = 753) MEAN CORPUSCULAR HEMOGLOBIN 27.6 pg 25.7-32.2 (BEAKER) (test code = 751) MEAN CORPUSCULAR HEMOGLOBIN CONC 31.9 GM/DL 32.3-36.5 L (BEAKER) (test code = 752) RED CELL DISTRIBUTION WIDTH 13.2 % 11.6-14.4 (BEAKER) (test code = 412) PLATELET COUNT (BEAKER) (test 203 K/CU MM 150-450 code = 756) MEAN PLATELET VOLUME (BEAKER) 12.3 fL 9.4-12.4 (test code = 754) NUCLEATED RED BLOOD CELLS 0 /100 WBC 0-0 (BEAKER) (test code = 413) POCT-GLUCOSE [id number] 20:52:05 Test Item Value Reference Range Interpretation Comments POC-GLUCOSE METER 205 mg/dL 70-110 H : TESTED A T [facility] 6720 (BEAKER) (test code = [facility], 1538) [id number]: Per Diem Physical Therapist/Techni dagmar ID = [id number] for JOAQUIN BURGER POCT-GLUCOSE [id number] 17:31:34 Test Item Value Reference Range Interpretation Comments POC-GLUCOSE METER 262 mg/dL 70-110 H : TESTED A T [facility] 6720 (BEAKER) (test code = [facility] Claudia [facility], 1538) [id number]: Per Diem Physical Therapist/Techni dagmar ID = [id number] for Am Stalin carringtono POCT-GLUCOSE [id number] 11:14:55 Test Item Value Reference Range Interpretation Comments POC-GLUCOSE METER 188 mg/dL 70-110 H : TESTED A T [facility] 6720 (BEAKER) (test code = MAIKOL Taylor [facility], 1538) [address]: Per Diem Physical Therapist/Techni dagmar ID = [id number] for Am ador, Pritesh POCT-GLUCOSE [id number] 08:29:49 Test Item Value Reference Range Interpretation Comments POC-GLUCOSE METER 190 mg/dL 70-110 H : TESTED A T [facility] 6720 (BEAKER) (test code = MAIKOL Taylor [facility], 1538) [id number]: Per Diem Physical Therapist/Techni dagmar ID = [id number] for Am adlarissa, Pritesh BASIC METABOLIC [id number] 05:46:48 Test Item Value Reference Range Interpretation Comments SODIUM (BEAKER) 133 meq/L 136-145 L (test code = 381) POTASSIUM 3.9 meq/L 3.5-5.1 (BEAKER) (test code = 379) CHLORIDE (BEAKER) 96 meq/L 98-107 L (test code = 382) CO2 (BEAKER) 28 meq/L 22-29 (test code = 355) BLOOD UREA 19 mg/dL 7-21 NITROGEN (BEAKER) (test code = 354) CREATININE 0.88 mg/dL 0.57-1.25 (BEAKER) (test code = 358) GLUCOSE RANDOM 198 mg/dL 70-105 H (BEAKER) (test code = 652) CALCIUM (BEAKER) 8.4 mg/dL 8.4-10.2 (test code = 697) EGFR (BEAKER) 92 Interpretatio n of eGFR (test code = mL/min/1.73 values Stage De scription 1092) sq m Result G1 Norm al or high >=90 G2 Mildly decreased 60-89 G3a Mildl y to moderately 45-5 9 G3b Moderately to s everely 30-44 G4 Severl y decreased 15-29 G5 Kidney failure <15Reported eGF R is based on the CKD-EPI 1 equation that d oes not use a race coefficientEsti mated GFR is not as accur ate as Creatinine Hanane quiana in predicting glom erular filtration rate . Estimated GFR is not appl icable for dialysis patien ts Per Diem Physical Therapist ID - [id number] 05:46:48 Test Item Value Reference Range Interpretation Comments MAGNESIUM (BEAKER) (test code = 2.0 mg/dL 1.6-2.6 627) Per Diem Physical Therapist ID - ADMINPROTHROMBIN [id number] 05:12:11 Test Item Value Reference Range Interpretation Comments PROTIME (BEAKER) (test code = 16.7 seconds 11.9-14.2 H 759) INR (BEAKER) (test code = 370) 1.44 <=5.90 RECOMMENDED COUMADIN/WARFARIN INR THERAPY RANGESSTANDARD DOSE: 2.0 - 3.0 Includes: PROPHYLAXIS for venous thrombosis, systemic embolization; TREATMENT for venous thrombosis and/or pulmonary embolus.HIGH RISK: Target INR is 2.5-3.5 for patients with mechanical heart valves.CBC (HEMOGRAM ONLY)2023-03-17 05:05:42 Test Item Value Reference Range Interpretation Comments WHITE BLOOD CELL COUNT (BEAKER) 13.9 K/ L 3.5-10.5 H (test code = 775) RED BLOOD CELL COUNT (BEAKER) 5.91 M/ L 4.63-6.08 (test code = 761) HEMOGLOBIN (BEAKER) (test code = 16.2 GM/DL 13.7-17.5 410) HEMATOCRIT (BEAKER) (test code = 50.4 % 40.1-51.0 411) MEAN CORPUSCULAR VOLUME (BEAKER) 85 fL 79-92 (test code = 753) MEAN CORPUSCULAR HEMOGLOBIN 27.4 pg 25.7-32.2 (BEAKER) (test code = 751) MEAN CORPUSCULAR HEMOGLOBIN CONC 32.1 GM/DL 32.3-36.5 L (BEAKER) (test code = 752) RED CELL DISTRIBUTION WIDTH 13.2 % 11.6-14.4 (BEAKER) (test code = 412) PLATELET COUNT (BEAKER) (test 194 K/CU MM 150-450 code = 756) MEAN PLATELET VOLUME (BEAKER) 12.4 fL 9.4-12.4 (test code = 754) NUCLEATED RED BLOOD CELLS 0 /100 WBC 0-0 (BEAKER) (test code = 413) POCT-GLUCOSE [id number] 21:20:54 Test Item Value Reference Range Interpretation Comments POC-GLUCOSE METER 254 mg/dL 70-110 H : TESTED A T [facility] 6720 (BEAKER) (test code = [facility], 1538) [id number]: Per Diem Physical Therapist/Techni dagmar ID = [id number] for JOAQUIN BURGER POCT-GLUCOSE [id number] 16:36:06 Test Item Value Reference Range Interpretation Comments POC-GLUCOSE METER 164 mg/dL 70-110 H : TESTED A T [facility] 6720 (BEAKER) (test code = [facility], 1538) 98201: Per Diem Physical Therapist/Techni dagmar ID = [id number] for Carie Rogers POCT-GLUCOSE [id number] 11:43:25 Test Item Value Reference Range Interpretation Comments POC-GLUCOSE METER 194 mg/dL 70-110 H : TESTED A T [facility] 6720 (BEAKER) (test code = [facility], 1538) [id number]: Per Diem Physical Therapist/Techni dagmar ID = [id number] for Carie Rogers POCT-GLUCOSE [id number] 08:00:19 Test Item Value Reference Range Interpretation Comments POC-GLUCOSE METER 153 mg/dL 70-110 H : TESTED A T [facility] 6720 (BEAKER) (test code = [facility], 1538) 00220: Per Diem Physical Therapist/Techni dagmar ID = [id number] for Carie Rogers [id number] 05:04:26 Test Item Value Reference Range Interpretation Comments MAGNESIUM (BEAKER) 1.9 mg/dL 1.6-2.6 Specimen slightly (test code = 627) hemolyzed Per Diem Physical Therapist ID - MARCOBASIC METABOLIC [id number] 05:04:26 Test Item Value Reference Range Interpretation Comments SODIUM (BEAKER) 136 meq/L 136-145 (test code = 381) POTASSIUM 4.4 meq/L 3.5-5.1 Specimen slight ly (BEAKER) (test hemolyzed code = 379) CHLORIDE (BEAKER) 95 meq/L 98-107 L (test code = 382) CO2 (BEAKER) 31 meq/L 22-29 H (test code = 355) BLOOD UREA 18 mg/dL 7-21 NITROGEN (BEAKER) (test code = 354) CREATININE 0.93 mg/dL 0.57-1.25 Specimen slight ly (BEAKER) (test hemolyzed code = 358) GLUCOSE RANDOM 163 mg/dL 70-105 H (BEAKER) (test code = 652) CALCIUM (BEAKER) 8.8 mg/dL 8.4-10.2 (test code = 697) EGFR (BEAKER) 88 Interpretatio n of eGFR (test code = mL/min/1.73 values Stage De scription 1092) sq m Result G1 Osiris l or high >=90 G2 Mildly decreased 60-89 G3a Mildl y to moderately 45-5 9 G3b Moderately to s everely 30-44 G4 Severl y decreased 15-29 G5 Kidney failure <15Reported eGF R is based on the CKD-EPI 2020 equation that d oes not use a race coefficientEsti mated GFR is not as accur ate as Creatinine Hanane quiana in predicting glom erular filtration rate . Estimated GFR is not appl icable for dialysis patien ts Per Diem Physical Therapist ID - MARCOCBC (HEMOGRAM ONLY)2023-03-16 04:45:34 Test Item Value Reference Range Interpretation Comments WHITE BLOOD CELL COUNT (BEAKER) 13.7 K/ L 3.5-10.5 H (test code = 775) RED BLOOD CELL COUNT (BEAKER) 5.65 M/ L 4.63-6.08 (test code = 761) HEMOGLOBIN (BEAKER) (test code = 16.0 GM/DL 13.7-17.5 410) HEMATOCRIT (BEAKER) (test code = 49.7 % 40.1-51.0 411) MEAN CORPUSCULAR VOLUME (BEAKER) 88 fL 79-92 (test code = 753) MEAN CORPUSCULAR HEMOGLOBIN 28.3 pg 25.7-32.2 (BEAKER) (test code = 751) MEAN CORPUSCULAR HEMOGLOBIN CONC 32.2 GM/DL 32.3-36.5 L (BEAKER) (test code = 752) RED CELL DISTRIBUTION WIDTH 13.4 % 11.6-14.4 (BEAKER) (test code = 412) PLATELET COUNT (BEAKER) (test 185 K/CU MM 150-450 code = 756) MEAN PLATELET VOLUME (BEAKER) 12.3 fL 9.4-12.4 (test code = 754) NUCLEATED RED BLOOD CELLS 0 /100 WBC 0-0 (BEAKER) (test code = 413) POCT-GLUCOSE [id number] 21:32:59 Test Item Value Reference Range Interpretation Comments POC-GLUCOSE METER 257 mg/dL 70-110 H : TESTED A T [facility] 6720 (BEAKER) (test code = [facility], [facility]8) 84960: Per Diem Physical Therapist/Techni dagmar ID = [id number] for Cu rtsarah (contract), Lil juanjose POCT-GLUCOSE [id number] 17:11:21 Test Item Value Reference Range Interpretation Comments POC-GLUCOSE METER 212 mg/dL 70-110 H : TESTED A T [facility] 6720 (BEAKER) (test code = [facility], [facility]8) 76059: Per Diem Physical Therapist/Techni dagmar ID = [id number] for Carie Rogers POCT-GLUCOSE [id number] 12:32:51 Test Item Value Reference Range Interpretation Comments POC-GLUCOSE METER 178 mg/dL 70-110 H : TESTED A T [facility] 6720 (BEAKER) (test code = [facility], [facility]8) [id number]: Per Diem Physical Therapist/Techni dagmar ID = [id number] for Carie Rogers POCT-GLUCOSE [id number] 08:22:21 Test Item Value Reference Range Interpretation Comments POC-GLUCOSE METER 161 mg/dL 70-110 H : TESTED A T [facility] 6720 (BEAKER) (test code = [facility], [facility]8) 86028: Per Diem Physical Therapist/Techni dagmar ID = [id number] for Carie Rogers [id number] 07:47:17 Test Item Value Reference Range Interpretation Comments MAGNESIUM (BEAKER) 2.0 mg/dL 1.6-2.6 Specimen slightly (test code = 627) hemolyzed Per Diem Physical Therapist ID - ADMINBASIC METABOLIC [id number] 07:47:17 Test Item Value Reference Range Interpretation Comments SODIUM (BEAKER) 135 meq/L 136-145 L (test code = 381) POTASSIUM 4.4 meq/L 3.5-5.1 Specimen slight ly (BEAKER) (test hemolyzed code = 379) CHLORIDE (BEAKER) 94 meq/L 98-107 L (test code = 382) CO2 (BEAKER) 34 meq/L 22-29 H (test code = 355) BLOOD UREA 16 mg/dL 7-21 NITROGEN (BEAKER) (test code = 354) CREATININE 0.85 mg/dL 0.57-1.25 Specimen slight ly (BEAKER) (test hemolyzed code = 358) GLUCOSE RANDOM 197 mg/dL 70-105 H (BEAKER) (test code = 652) CALCIUM (BEAKER) 8.5 mg/dL 8.4-10.2 (test code = 697) EGFR (BEAKER) 93 Interpretatio n of eGFR (test code = mL/min/1.73 values Stage De scription 1092) sq m Result G1 Osiris l or high >=90 G2 Mildly decreased 60-89 G3a Mildl y to moderately 45-5 9 G3b Moderately to s everely 30-44 G4 Sever ly decreased 15-29 G5 Kidney failure <15Repo rted eGFR is based on the CKD-EPI 2020 equation t hat does not use a race coefficientEsti mated GFR is not as accur ate as Creatinine Hanane quiana in predicting glom erular filtration rate . Estimated GFR is not appl icable for dialysis patien ts Per Diem Physical Therapist ID - ADMINBLOOD GAS, [id number] 06:54:37 Test Item Value Reference Range Interpretation Comments PH VENOUS (BEAKER) (test code = 7.41 7.32-7.42 701) PCO2 VENOUS (BEAKER) (test code = 58 mm Hg 41-51 H 755) PO2 VENOUS (BEAKER) (test code = 47 mm Hg 25-40 H 702) O2 SATURATION VENOUS (BEAKER) 82.7 % 40.0-70.0 H (test code = 703) HCO3 VENOUS (BEAKER) (test code = 36 mmol/L 21-29 H 705) BASE EXCESS VENOUS (BEAKER) (test 8.6 mmol/L -2.0-3.0 H code = 704) PATIENT TEMPERATURE (BEAKER) (test 36.9 code = 1818) FIO2 (BEAKER) (test code = 1819) 36.0 CBC (HEMOGRAM ONLY)2023-03-15 06:40:38 Test Item Value Reference Range Interpretation Comments WHITE BLOOD CELL COUNT (BEAKER) 12.7 K/ L 3.5-10.5 H (test code = 775) RED BLOOD CELL COUNT (BEAKER) 5.56 M/ L 4.63-6.08 (test code = 761) HEMOGLOBIN (BEAKER) (test code = 15.7 GM/DL 13.7-17.5 410) HEMATOCRIT (BEAKER) (test code = 49.5 % 40.1-51.0 411) MEAN CORPUSCULAR VOLUME (BEAKER) 89 fL 79-92 (test code = 753) MEAN CORPUSCULAR HEMOGLOBIN 28.2 pg 25.7-32.2 (BEAKER) (test code = 751) MEAN CORPUSCULAR HEMOGLOBIN CONC 31.7 GM/DL 32.3-36.5 L (BEAKER) (test code = 752) RED CELL DISTRIBUTION WIDTH 13.3 % 11.6-14.4 (BEAKER) (test code = 412) PLATELET COUNT (BEAKER) (test 195 K/CU MM 150-450 code = 756) MEAN PLATELET VOLUME (BEAKER) 12.2 fL 9.4-12.4 (test code = 754) NUCLEATED RED BLOOD CELLS 0 /100 WBC 0-0 (BEAKER) (test code = 413) POCT-GLUCOSE [id number] 22:24:24 Test Item Value Reference Range Interpretation Comments POC-GLUCOSE METER 300 mg/dL 70-110 H : TESTED A T [facility] 6720 (BEAKER) (test code = [facility] Claudia [facility], 1538) 76549: Per Diem Physical Therapist/Techni dagmar ID = [id number] for Deanne gay (contract)Ciarra POCT-GLUCOSE [id number] 16:49:31 Test Item Value Reference Range Interpretation Comments POC-GLUCOSE METER 152 mg/dL 70-110 H : TESTED A T [facility] 6720 (BEAKER) (test code [facility], = 1538) 31828: Per Diem Physical Therapist/Techni dagmar ID = [id number] for Jillian Palacios POCT-GLUCOSE [id number] 12:40:55 Test Item Value Reference Range Interpretation Comments POC-GLUCOSE METER 171 mg/dL 70-110 H : TESTED A T [facility] 6720 (BEAKER) (test code [facility], = 1538) 73281: Per Diem Physical Therapist/Techni dagmar ID = [id number] for Jillian Palacios POCT-GLUCOSE [id number] 11:04:35 Test Item Value Reference Range Interpretation Comments POC-GLUCOSE METER 228 mg/dL 70-110 H : TESTED A T [facility] 6720 (BEAKER) (test code [facility], = 1538) 74913: Per Diem Physical Therapist/Techni dagmar ID = [id number] for Jillian Palacios POCT-GLUCOSE [id number] 08:59:25 Test Item Value Reference Range Interpretation Comments POC-GLUCOSE METER 169 mg/dL 70-110 H : TESTED A T [facility] 6720 (BEAKER) (test code [facility], = 1538) 80029: Per Diem Physical Therapist/Techni dagmar ID = [id number] for Jillian Palacios BASIC METABOLIC [id number] 04:33:30 Test Item Value Reference Range Interpretation Comments SODIUM (BEAKER) 134 meq/L 136-145 L (test code = 381) POTASSIUM 3.6 meq/L 3.5-5.1 (BEAKER) (test code = 379) CHLORIDE (BEAKER) 91 meq/L 98-107 L (test code = 382) CO2 (BEAKER) 35 meq/L 22-29 H (test code = 355) BLOOD UREA 25 mg/dL 7-21 H NITROGEN (BEAKER) (test code = 354) CREATININE 0.94 mg/dL 0.57-1.25 (BEAKER) (test code = 358) GLUCOSE RANDOM 222 mg/dL 70-105 H (BEAKER) (test code = 652) CALCIUM (BEAKER) 8.3 mg/dL 8.4-10.2 L (test code = 697) EGFR (BEAKER) 87 Interpretatio n of eGFR (test code = mL/min/1.73 values Stage De scription 1092) sq m Result G1 Osiris l or high >=90 G2 Mildly decreased 60-89 G3a Mildl y to moderately 45-5 9 G3b Moderately to s everely 30-44 G4 Severl y decreased 15-29 G5 Kidney failure <15Reported eGF R is based on the CKD-EPI 2021 equation that d oes not use a race coefficientEsti mated GFR is not as accur ate as Creatinine Hanane araya in predicting glom erular filtration rate . Estimated GFR is not appl icable for dialysis patien ts Per Diem Physical Therapist ID - [id number] 04:33:30 Test Item Value Reference Range Interpretation Comments MAGNESIUM (BEAKER) (test code = 1.9 mg/dL 1.6-2.6 627) Per Diem Physical Therapist ID - [id number] (HEMOGRAM ONLY)2023-03-14 04:17:34 Test Item Value Reference Range Interpretation Comments WHITE BLOOD CELL COUNT (BEAKER) 14.6 K/ L 3.5-10.5 H (test code = 775) RED BLOOD CELL COUNT (BEAKER) 5.66 M/ L 4.63-6.08 (test code = 761) HEMOGLOBIN (BEAKER) (test code = 15.7 GM/DL 13.7-17.5 410) HEMATOCRIT (BEAKER) (test code = 49.7 % 40.1-51.0 411) MEAN CORPUSCULAR VOLUME (BEAKER) 88 fL 79-92 (test code = 753) MEAN CORPUSCULAR HEMOGLOBIN 27.7 pg 25.7-32.2 (BEAKER) (test code = 751) MEAN CORPUSCULAR HEMOGLOBIN CONC 31.6 GM/DL 32.3-36.5 L (BEAKER) (test code = 752) RED CELL DISTRIBUTION WIDTH 13.2 % 11.6-14.4 (BEAKER) (test code = 412) PLATELET COUNT (BEAKER) (test 183 K/CU MM 150-450 code = 756) MEAN PLATELET VOLUME (BEAKER) 12.5 fL 9.4-12.4 H (test code = 754) NUCLEATED RED BLOOD CELLS 0 /100 WBC 0-0 (BEAKER) (test code = 413) POCT-GLUCOSE [id number] 21:35:46 Test Item Value Reference Range Interpretation Comments POC-GLUCOSE METER 194 mg/dL 70-110 H : TESTED A T [facility] 6720 (BEAKER) (test code = [facility], 1538) 19026: Per Diem Physical Therapist/Techni dagmar ID = [id number] for Cu rtis (contract)Ciarra juanjose POCT-GLUCOSE [id number] 17:04:57 Test Item Value Reference Range Interpretation Comments POC-GLUCOSE METER 76 mg/dL 70-110 : TESTED A T [facility] 6720 (BEAKER) (test code = [facility] Claudia [facility], 1538) 05987: Per Diem Physical Therapist/Techni dagmar ID = [id number] for JAKI HURLEYWITHA POCT-GLUCOSE [id number] 12:32:51 Test Item Value Reference Range Interpretation Comments POC-GLUCOSE METER 138 mg/dL 70-110 H : TESTED A T [facility] 6720 (BEAKER) (test code = [facility], 1538) 03101: Per Diem Physical Therapist/Techni dagmar ID = [id number] for KORTNEY JO, JAKIWITHA POCT-GLUCOSE [id number] 09:31:55 Test Item Value Reference Range Interpretation Comments POC-GLUCOSE METER 97 mg/dL 70-110 : TESTED A T [facility] 6720 (BEAKER) (test code = [facility], 1538) 14110: Per Diem Physical Therapist/Techni dagmar ID = [id number] for Onel Orellana BASIC METABOLIC [id number] 04:56:40 Test Item Value Reference Range Interpretation Comments SODIUM (BEAKER) 136 meq/L 136-145 (test code = 381) POTASSIUM 4.4 meq/L 3.5-5.1 (BEAKER) (test code = 379) CHLORIDE (BEAKER) 90 meq/L 98-107 L (test code = 382) CO2 (BEAKER) 38 meq/L 22-29 H (test code = 355) BLOOD UREA 26 mg/dL 7-21 H NITROGEN (BEAKER) (test code = 354) CREATININE 0.95 mg/dL 0.57-1.25 (BEAKER) (test code = 358) GLUCOSE RANDOM 206 mg/dL 70-105 H (BEAKER) (test code = 652) CALCIUM (BEAKER) 9.3 mg/dL 8.4-10.2 (test code = 697) EGFR (BEAKER) 86 Interpretatio n of eGFR (test code = mL/min/1.73 values Stage De scription 1092) sq m Result G1 Osiris l or high >=90 G2 Mildly decreased 60-89 G3a Mildl y to moderately 45-5 9 G3b Moderately to s everely 30-44 G4 Severl y decreased 15-29 G5 Kidney failure <15Reported eGF R is based on the CKD-EPI 2020 equation that d oes not use a race coefficientEsti mated GFR is not as accur ate as Creatinine Hanane araya in predicting glom erular filtration rate . Estimated GFR is not appl icable for dialysis patien ts Per Diem Physical Therapist ID - [id number] 04:56:40 Test Item Value Reference Range Interpretation Comments MAGNESIUM (BEAKER) (test code = 2.3 mg/dL 1.6-2.6 627) Per Diem Physical Therapist ID - MMBLOOD GAS, [id number] 04:31:47 Test Item Value Reference Range Interpretation Comments PH VENOUS (BEAKER) (test code = 7.37 7.32-7.42 701) PCO2 VENOUS (BEAKER) (test code = 72 mm Hg 41-51 HH 755) PO2 VENOUS (BEAKER) (test code = 54 mm Hg 25-40 H 702) O2 SATURATION VENOUS (BEAKER) 85.9 % 40.0-70.0 H (test code = 703) HCO3 VENOUS (BEAKER) (test code = 41 mmol/L 21-29 HH 705) BASE EXCESS VENOUS (BEAKER) (test 11.3 mmol/L -2.0-3.0 H code = 704) PATIENT TEMPERATURE (BEAKER) 37.0 (test code = 1818) FIO2 (BEAKER) (test code = 1819) 21.0 POCT-GLUCOSE [id number] 22:04:05 Test Item Value Reference Range Interpretation Comments POC-GLUCOSE METER 200 mg/dL 70-110 H : TESTED A T [facility] 6720 (BEAKER) (test code = [facility] [place], 1538) 83566: Per Diem Physical Therapist/Techni dagmar ID = [id number] for Patrick Medina [id number] 21:50:03 Test Item Value Reference Range Interpretation Comments MAGNESIUM (BEAKER) (test code = 2.3 mg/dL 1.6-2.6 627) Per Diem Physical Therapist ID - ADMINBASIC METABOLIC [id number] 21:50:02 Test Item Value Reference Range Interpretation Comments SODIUM (BEAKER) 136 meq/L 136-145 (test code = 381) POTASSIUM 5.0 meq/L 3.5-5.1 (BEAKER) (test code = 379) CHLORIDE (BEAKER) 89 meq/L 98-107 L (test code = 382) CO2 (BEAKER) 37 meq/L 22-29 H (test code = 355) BLOOD UREA 26 mg/dL 7-21 H NITROGEN (BEAKER) (test code = 354) CREATININE 1.17 mg/dL 0.57-1.25 (BEAKER) (test code = 358) GLUCOSE RANDOM 200 mg/dL 70-105 H (BEAKER) (test code = 652) CALCIUM (BEAKER) 9.2 mg/dL 8.4-10.2 (test code = 697) EGFR (BEAKER) 67 Interpretatio n of eGFR (test code = mL/min/1.73 values Stage De scription 1092) sq m Result G1 Osiris l or high >=90 G2 Mildly decreased 60-89 G3a Mildl y to moderately 45-5 9 G3b Moderately to s everely 30-44 G4 Severl y decreased 15-29 G5 Kidney failure <15Reported eGF R is based on the CKD-EPI 2020 equation that d oes not use a race coefficientEsti mated GFR is not as accur ate as Creatinine Hanane quiana in predicting glom erular filtration rate . Estimated GFR is not appl icable for dialysis patien ts Per Diem Physical Therapist ID - ADMINBLOOD GAS, [id number] 21:32:08 Test Item Value Reference Range Interpretation Comments PH VENOUS (BEAKER) (test code = 7.34 7.32-7.42 701) PCO2 VENOUS (BEAKER) (test code = 77 mm Hg 41-51 HH 755) PO2 VENOUS (BEAKER) (test code = 47 mm Hg 25-40 H 702) O2 SATURATION VENOUS (BEAKER) 77.9 % 40.0-70.0 H (test code = 703) HCO3 VENOUS (BEAKER) (test code = 41 mmol/L 21-29 HH 705) BASE EXCESS VENOUS (BEAKER) (test 10.5 mmol/L -2.0-3.0 H code = 704) PATIENT TEMPERATURE (BEAKER) 37.0 (test code = 1818) FIO2 (BEAKER) (test code = 1819) 21.0 POCT-GLUCOSE [id number] 16:29:35 Test Item Value Reference Range Interpretation Comments POC-GLUCOSE METER 258 mg/dL 70-110 H : TESTED A T [facility] 6720 (BEAKER) (test code = [facility] [place], 1538) [id number]: Per Diem Physical Therapist/Techni dagmar ID = [id number] for AG YANIRA ADAN [id number] 13:57:19 Test Item Value Reference Range Interpretation Comments MAGNESIUM (BEAKER) 2.1 mg/dL 1.6-2.6 Specimen moderately (test code = 627) hemolyzed Per Diem Physical Therapist ID - ADMINBASIC METABOLIC [id number] 13:57:19 Test Item Value Reference Range Interpretation Comments SODIUM (BEAKER) 133 meq/L 136-145 L (test code = 381) POTASSIUM 5.0 meq/L 3.5-5.1 Specimen modera tely (BEAKER) (test hemolyzed code = 379) CHLORIDE (BEAKER) 90 meq/L 98-107 L (test code = 382) CO2 (BEAKER) 36 meq/L 22-29 H (test code = 355) BLOOD UREA 20 mg/dL 7-21 NITROGEN (BEAKER) (test code = 354) CREATININE 1.01 mg/dL 0.57-1.25 Specimen modera tely (BEAKER) (test hemolyzed code = 358) GLUCOSE RANDOM 221 mg/dL 70-105 H (BEAKER) (test code = 652) CALCIUM (BEAKER) 8.7 mg/dL 8.4-10.2 (test code = 697) EGFR (BEAKER) 80 Interpretatio n of eGFR (test code = mL/min/1.73 values Stage De scription 1092) sq m Result G1 Osiris l or high >=90 G2 Mildly decreased 60-89 G3a Mildl y to moderately 45-5 9 G3b Moderately to s everely 30-44 G4 Severl y decreased 15-29 G5 Kidney failure <15Reported eGF R is based on the CKD-EPI 2020 equation that d oes not use a race coefficientEsti mated GFR is not as accur ate as Creatinine Hanane araya in predicting glom erular filtration rate . Estimated GFR is not appl icable for dialysis patien ts Per Diem Physical Therapist ID - ADMINCALCIUM, [id number] 13:27:54 Test Item Value Reference Range Interpretation Comments CALCIUM IONIZED (BEAKER) (test 1.10 mmol/L 1.12-1.27 L code = 698) PH, BLOOD (BEAKER) (test code = 7.40 1810) BLOOD GAS, [id number] 13:27:48 Test Item Value Reference Range Interpretation Comments PH VENOUS (BEAKER) (test code = 7.40 7.32-7.42 701) PCO2 VENOUS (BEAKER) (test code = 66 mm Hg 41-51 H 755) PO2 VENOUS (BEAKER) (test code = 82 mm Hg 25-40 H 702) O2 SATURATION VENOUS (BEAKER) 95.7 % 40.0-70.0 H (test code = 703) HCO3 VENOUS (BEAKER) (test code = 40 mmol/L 21-29 HH 705) BASE EXCESS VENOUS (BEAKER) (test 11.3 mmol/L -2.0-3.0 H code = 704) PATIENT TEMPERATURE (BEAKER) 37.0 (test code = 1818) FIO2 (BEAKER) (test code = 1819) 21.0 POCT-GLUCOSE [id number] 11:34:17 Test Item Value Reference Range Interpretation Comments POC-GLUCOSE METER 155 mg/dL 70-110 H : TESTED A T [facility] 6720 (BEAKER) (test code = [facility], 1538) [id number]: Per Diem Physical Therapist/Techni dagmar ID = [id number] for Enid Garcia CBC (HEMOGRAM ONLY)2023-03-12 08:35:21 Test Item Value Reference Range Interpretation Comments WHITE BLOOD CELL COUNT (BEAKER) 16.0 K/ L 3.5-10.5 H (test code = 775) RED BLOOD CELL COUNT (BEAKER) 5.68 M/ L 4.63-6.08 (test code = 761) HEMOGLOBIN (BEAKER) (test code = 15.8 GM/DL 13.7-17.5 410) HEMATOCRIT (BEAKER) (test code = 50.3 % 40.1-51.0 411) MEAN CORPUSCULAR VOLUME (BEAKER) 89 fL 79-92 (test code = 753) MEAN CORPUSCULAR HEMOGLOBIN 27.8 pg 25.7-32.2 (BEAKER) (test code = 751) MEAN CORPUSCULAR HEMOGLOBIN CONC 31.4 GM/DL 32.3-36.5 L (BEAKER) (test code = 752) RED CELL DISTRIBUTION WIDTH 13.3 % 11.6-14.4 (BEAKER) (test code = 412) PLATELET COUNT (BEAKER) (test 185 K/CU MM 150-450 code = 756) MEAN PLATELET VOLUME (BEAKER) 12.6 fL 9.4-12.4 H (test code = 754) NUCLEATED RED BLOOD CELLS 0 /100 WBC 0-0 (BEAKER) (test code = 413) POCT-GLUCOSE [id number] 06:44:12 Test Item Value Reference Range Interpretation Comments POC-GLUCOSE METER 117 mg/dL 70-110 H : TESTED A T [facility] 6720 (BEAKER) (test code [facility], = 1538) [id number]: Per Diem Physical Therapist/Techni dagmar ID = [id number] for Brennen Villafana [id number] 04:27:39 Test Item Value Reference Range Interpretation Comments POTASSIUM (BEAKER) 4.6 meq/L 3.5-5.1 Specimen moderately (test code = 379) hemolyzed Per Diem Physical Therapist ID - ADMINBLOOD GAS, [id number] 03:51:03 Test Item Value Reference Range Interpretation Comments PH VENOUS (BEAKER) (test code = 7.40 7.32-7.42 701) PCO2 VENOUS (BEAKER) (test code = 59 mm Hg 41-51 H 755) PO2 VENOUS (BEAKER) (test code = 64 mm Hg 25-40 H 702) O2 SATURATION VENOUS (BEAKER) 91.9 % 40.0-70.0 H (test code = 703) HCO3 VENOUS (BEAKER) (test code = 36 mmol/L 21-29 H 705) BASE EXCESS VENOUS (BEAKER) (test 8.8 mmol/L -2.0-3.0 H code = 704) PATIENT TEMPERATURE (BEAKER) (test 37.0 code = 1818) [id number] 03:10:09 Test Item Value Reference Range Interpretation Comments MAGNESIUM (BEAKER) 2.2 mg/dL 1.6-2.6 Specimen moderately (test code = 627) hemolyzed Per Diem Physical Therapist ID - ADMINBASIC METABOLIC [id number] 03:10:09 Test Item Value Reference Range Interpretation Comments SODIUM (BEAKER) 133 meq/L 136-145 L (test code = 381) POTASSIUM 5.2 meq/L 3.5-5.1 H Specimen modera tely (BEAKER) (test hemolyzed code = 379) CHLORIDE (BEAKER) 91 meq/L 98-107 L (test code = 382) CO2 (BEAKER) 33 meq/L 22-29 H (test code = 355) BLOOD UREA 19 mg/dL 7-21 NITROGEN (BEAKER) (test code = 354) CREATININE 0.85 mg/dL 0.57-1.25 Specimen modera tely (BEAKER) (test hemolyzed code = 358) GLUCOSE RANDOM 112 mg/dL 70-105 H (BEAKER) (test code = 652) CALCIUM (BEAKER) 8.6 mg/dL 8.4-10.2 (test code = 697) EGFR (BEAKER) 93 Interpretatio n of eGFR (test code = mL/min/1.73 values Stage De scription 1092) sq m Result G1 Osiris l or high >=90 G2 Mildly decreased 60-89 G3a Mildl y to moderately 45-5 9 G3b Moderately to s everely 30-44 G4 Severl y decreased 15-29 G5 Kidney failure <15Reported eGF R is based on the CKD-EPI 2020 equation that d oes not use a race coefficientEsti mated GFR is not as accur ate as Creatinine Hanane araya in predicting glom erular filtration rate . Estimated GFR is not appl icable for dialysis patien ts Per Diem Physical Therapist ID - [id number] 23:00:41 Test Item Value Reference Range Interpretation Comments MAGNESIUM (BEAKER) (test code = 2.1 mg/dL 1.6-2.6 627) Per Diem Physical Therapist ID - ADMINBASIC METABOLIC [id number] 23:00:40 Test Item Value Reference Range Interpretation Comments SODIUM (BEAKER) 135 meq/L 136-145 L (test code = 381) POTASSIUM 4.4 meq/L 3.5-5.1 (BEAKER) (test code = 379) CHLORIDE (BEAKER) 89 meq/L 98-107 L (test code = 382) CO2 (BEAKER) 38 meq/L 22-29 H (test code = 355) BLOOD UREA 17 mg/dL 7-21 NITROGEN (BEAKER) (test code = 354) CREATININE 1.13 mg/dL 0.57-1.25 (BEAKER) (test code = 358) GLUCOSE RANDOM 191 mg/dL 70-105 H (BEAKER) (test code = 652) CALCIUM (BEAKER) 8.5 mg/dL 8.4-10.2 (test code = 697) EGFR (BEAKER) 70 Interpretatio n of eGFR (test code = mL/min/1.73 values Stage De scription 1092) sq m Result G1 Norm al or high >=90 G2 Mildly decreased 60-89 G3a Mildl y to moderately 45-5 9 G3b Moderately to s everely 30-44 G4 Severl y decreased 15-29 G5 Kidney failure <15Reported eGF R is based on the CKD-EPI 2020 equation that d oes not use a race coefficientEsti mated GFR is not as accur ate as Creatinine Hanane quiana in predicting glom erular filtration rate . Estimated GFR is not appl icable for dialysis patien ts Per Diem Physical Therapist ID - ADMINPOCT-GLUCOSE [id number] 22:42:05 Test Item Value Reference Range Interpretation Comments POC-GLUCOSE METER 297 mg/dL 70-110 H : TESTED A T [facility] 6720 (BEAKER) (test code = GUTIERREZLUCILLE Taylor [facility], 1538) [id number]: Per Diem Physical Therapist/Techni dagmar ID = [id number] for [facility] (conract)VANESSA BLOOD GAS, [id number] 22:40:21 Test Item Value Reference Range Interpretation Comments PH VENOUS (BEAKER) (test code = 7.40 7.32-7.42 701) PCO2 VENOUS (BEAKER) (test code = 67 mm Hg 41-51 H 755) PO2 VENOUS (BEAKER) (test code = 73 mm Hg 25-40 H 702) O2 SATURATION VENOUS (BEAKER) 94.2 % 40.0-70.0 H (test code = 703) HCO3 VENOUS (BEAKER) (test code = 41 mmol/L 21-29 HH 705) BASE EXCESS VENOUS (BEAKER) (test 12.5 mmol/L -2.0-3.0 H code = 704) PATIENT TEMPERATURE (BEAKER) 37.0 (test code = 1818) FIO2 (BEAKER) (test code = 1819) 100 DIGOXIN [id number] 15:50:32 Test Item Value Reference Range Interpretation Comments DIGOXIN LEVEL (BEAKER) (test code 0.30 ng/mL 0.80-2.00 L = 669) RAD, CHEST, 1 VIEW, NON [id number] 13:30:00Reason for exam:->Worsening hypoxia, ICU patientShould this be performed at the bedside?->Yes [facility] 1950 Sex: MFINAL REPORT RAD, CHEST, 1 VIEW, NON DEPT INDICATION: Worsening hypoxia, ICU patient COMPARISON: None FINDINGS: Portable frontal view of the chest. IMPRESSION: Support Lines: Overlying leads/monitors. . Lungs and pleura: Hazy diffuse interstitial thickening, representing singly or in combination, interstitial edema and/or pneumonitis. No significant pneumothorax. Heart and mediastinum: Stable contours. Additional findings: None. Signed: Sisi Ruiz MDRepshavon Verified Date/Time:03/11/2023 13:30:05 Reading Location: [address] Reading Room BASI METABOLIC [id number] 12:04:00 Test Item Value Reference Range Interpretation Comments SODIUM (BEAKER) 138 meq/L 136-145 (test code = 381) POTASSIUM 3.8 meq/L 3.5-5.1 (BEAKER) (test code = 379) CHLORIDE (BEAKER) 92 meq/L 98-107 L (test code = 382) CO2 (BEAKER) 39 meq/L 22-29 H (test code = 355) BLOOD UREA 11 mg/dL 7-21 NITROGEN (BEAKER) (test code = 354) CREATININE 0.83 mg/dL 0.57-1.25 (BEAKER) (test code = 358) GLUCOSE RANDOM 134 mg/dL 70-105 H (BEAKER) (test code = 652) CALCIUM (BEAKER) 8.8 mg/dL 8.4-10.2 (test code = 697) EGFR (BEAKER) 94 Interpretatio n of eGFR (test code = mL/min/1.73 values Stage De scription 1092) sq m Result G1 Norm al or high >=90 G2 Mildly decreased 60-89 G3a Mildl y to moderately 45-5 9 G3b Moderately to s everely 30-44 G4 Severl y decreased 15-29 G5 Kidne y failure <15Reported eGF R is based on the CKD-EPI 2020 equation that d oes not use a race coefficientEsti mated GFR is not as accur ate as Creatinine Hanane quiana in predicting glom erular filtration rate . Estimated GFR is not appl icable for dialysis patien ts Per Diem Physical Therapist ID - [id number] 12:04:00 Test Item Value Reference Range Interpretation Comments MAGNESIUM (BEAKER) (test code = 2.2 mg/dL 1.6-2.6 627) Per Diem Physical Therapist ID - ADMINBLOOD GAS, [id number] 11:37:28 Test Item Value Reference Range Interpretation Comments PH VENOUS (BEAKER) (test code = 7.39 7.32-7.42 701) PCO2 VENOUS (BEAKER) (test code = 68 mm Hg 41-51 H 755) PO2 VENOUS (BEAKER) (test code = 41 mm Hg 25-40 H 702) O2 SATURATION VENOUS (BEAKER) 73.7 % 40.0-70.0 H (test code = 703) HCO3 VENOUS (BEAKER) (test code = 40 mmol/L 21-29 HH 705) BASE EXCESS VENOUS (BEAKER) (test 11.4 mmol/L -2.0-3.0 H code = 704) PATIENT TEMPERATURE (BEAKER) 37.0 (test code = 1818) FIO2 (BEAKER) (test code = 1819) 21.0 CALCIUM, [id number] 11:36:33 Test Item Value Reference Range Interpretation Comments CALCIUM IONIZED (BEAKER) (test 1.05 mmol/L 1.12-1.27 L code = 698) PH, BLOOD (BEAKER) (test code = 7.39 1810) POCT-GLUCOSE [id number] 11:28:03 Test Item Value Reference Range Interpretation Comments POC-GLUCOSE METER 154 mg/dL 70-110 H : TESTED A T [facility] 6720 (BEAKER) (test code = MAIKOL Taylor [facility], 1538) [id number]: Per Diem Physical Therapist/Techni dagmar ID = [id number] for Dl Royal POCT-GLUCOSE [id number] 09:48:11 Test Item Value Reference Range Interpretation Comments POC-GLUCOSE METER 128 mg/dL 70-110 H : TESTED A T [facility] 6720 (BEAKER) (test code = [facility] Claudia [facility], 1538) [id number]: Per Diem Physical Therapist/Techni dagmar ID = [id number] for Dl Royal BASIC METABOLIC [id number] 06:07:45 Test Item Value Reference Range Interpretation Comments SODIUM (BEAKER) 137 meq/L 136-145 (test code = 381) POTASSIUM 3.4 meq/L 3.5-5.1 L (BEAKER) (test code = 379) CHLORIDE (BEAKER) 92 meq/L 98-107 L (test code = 382) CO2 (BEAKER) 38 meq/L 22-29 H (test code = 355) BLOOD UREA 12 mg/dL 7-21 NITROGEN (BEAKER) (test code = 354) CREATININE 0.79 mg/dL 0.57-1.25 (BEAKER) (test code = 358) GLUCOSE RANDOM 147 mg/dL 70-105 H (BEAKER) (test code = 652) CALCIUM (BEAKER) 8.7 mg/dL 8.4-10.2 (test code = 697) EGFR (BEAKER) 95 Interpretatio n of eGFR (test code = mL/min/1.73 values Stage De scription 1092) sq m Result G1 Osiris l or high >=90 G2 Mildly decreased 60-89 G3a Mildl y to moderately 45-5 9 G3b Moderately to s everely 30-44 G4 Severl y decreased 15-29 G5 Kidney failure <15Reported eGF R is based on the CKD-EPI 2020 equation that d oes not use a race coefficientEsti mated GFR is not as accur ate as Creatinine Hanane quiana in predicting glom erular filtration rate . Estimated GFR is not appl icable for dialysis patien ts Per Diem Physical Therapist ID - CELSA [id number] 06:07:45 Test Item Value Reference Range Interpretation Comments MAGNESIUM (BEAKER) (test code = 2.4 mg/dL 1.6-2.6 627) Per Diem Physical Therapist ID Sanam STEEN WBLOOD GAS, [id number] 05:51:29 Test Item Value Reference Range Interpretation Comments PH VENOUS (BEAKER) (test code = 7.39 7.32-7.42 701) PCO2 VENOUS (BEAKER) (test code = 69 mm Hg 41-51 H 755) PO2 VENOUS (BEAKER) (test code = 49 mm Hg 25-40 H 702) O2 SATURATION VENOUS (BEAKER) 82.4 % 40.0-70.0 H (test code = 703) HCO3 VENOUS (BEAKER) (test code = 41 mmol/L 21-29 HH 705) BASE EXCESS VENOUS (BEAKER) (test 12.5 mmol/L -2.0-3.0 H code = 704) PATIENT TEMPERATURE (BEAKER) 37.0 (test code = 1818) CBC (HEMOGRAM ONLY)2023-03-11 05:34:09 Test Item Value Reference Range Interpretation Comments WHITE BLOOD CELL COUNT (BEAKER) 17.2 K/ L 3.5-10.5 H (test code = 775) RED BLOOD CELL COUNT (BEAKER) 5.13 M/ L 4.63-6.08 (test code = 761) HEMOGLOBIN (BEAKER) (test code = 14.4 GM/DL 13.7-17.5 410) HEMATOCRIT (BEAKER) (test code = 46.2 % 40.1-51.0 411) MEAN CORPUSCULAR VOLUME (BEAKER) 90 fL 79-92 (test code = 753) MEAN CORPUSCULAR HEMOGLOBIN 28.1 pg 25.7-32.2 (BEAKER) (test code = 751) MEAN CORPUSCULAR HEMOGLOBIN CONC 31.2 GM/DL 32.3-36.5 L (BEAKER) (test code = 752) RED CELL DISTRIBUTION WIDTH 13.3 % 11.6-14.4 (BEAKER) (test code = 412) PLATELET COUNT (BEAKER) (test 170 K/CU MM 150-450 code = 756) MEAN PLATELET VOLUME (BEAKER) 12.7 fL 9.4-12.4 H (test code = 754) NUCLEATED RED BLOOD CELLS 0 /100 WBC 0-0 (BEAKER) (test code = 413) [id number] 21:44:10 Test Item Value Reference Range Interpretation Comments MAGNESIUM (BEAKER) 1.9 mg/dL 1.6-2.6 Specimen slightly (test code = 627) hemolyzed Per Diem Physical Therapist ID - ADMINBASIC METABOLIC [id number] 21:44:10 Test Item Value Reference Range Interpretation Comments SODIUM (BEAKER) 135 meq/L 136-145 L (test code = 381) POTASSIUM 4.1 meq/L 3.5-5.1 Specimen slight ly (BEAKER) (test hemolyzed code = 379) CHLORIDE (BEAKER) 88 meq/L 98-107 L (test code = 382) CO2 (BEAKER) 36 meq/L 22-29 H (test code = 355) BLOOD UREA 17 mg/dL 7-21 NITROGEN (BEAKER) (test code = 354) CREATININE 1.05 mg/dL 0.57-1.25 Specimen slight ly (BEAKER) (test hemolyzed code = 358) GLUCOSE RANDOM 374 mg/dL 70-105 H (BEAKER) (test code = 652) CALCIUM (BEAKER) 8.6 mg/dL 8.4-10.2 (test code = 697) EGFR (BEAKER) 76 Interpretati on of eGFR (test code = mL/min/1.73 values Stage De scription 1092) sq m Result G1 Osiris l or high >=90 G2 Mildly decreased 60-89 G3a Mildl y to moderately 45-5 9 G3b Moderately to s everely 30-44 G4 Severl y decreased 15-29 G5 Kidney failure <15Reported eGF R is based on the CKD-EPI 2020 equation that d oes not use a race coefficientEsti mated GFR is not as accur ate as Creatinine Hanane quiana in predicting glom erular filtration rate . Estimated GFR is not appl icable for dialysis patien ts Per Diem Physical Therapist ID - [id number] 21:26:57 Test Item Value Reference Range Interpretation Comments PARTIAL THROMBOPLASTIN TIME 68.7 seconds 22.5-36.0 H (BEAKER) (test code = 760) BLOOD GAS, [id number] 21:20:22 Test Item Value Reference Range Interpretation Comments PH VENOUS (BEAKER) (test code = 7.37 7.32-7.42 701) PCO2 VENOUS (BEAKER) (test code = 68 mm Hg 41-51 H 755) PO2 VENOUS (BEAKER) (test code = 46 mm Hg 25-40 H 702) O2 SATURATION VENOUS (BEAKER) 79.6 % 40.0-70.0 H (test code = 703) HCO3 VENOUS (BEAKER) (test code = 39 mmol/L 21-29 H 705) BASE EXCESS VENOUS (BEAKER) (test 10.2 mmol/L -2.0-3.0 H code = 704) PATIENT TEMPERATURE (BEAKER) 37.0 (test code = 1818) FIO2 (BEAKER) (test code = 1819) 21.0 POCT-GLUCOSE [id number] 21:10:00 Test Item Value Reference Range Interpretation Comments POC-GLUCOSE METER 367 mg/dL 70-110 H : TESTED A T [facility] 6720 (BEAKER) (test code = MAIKOL Taylor [facility], 1538) [id number]: Per Diem Physical Therapist/Techni dagmar ID = [id number] for Abida Alvarez BASIC METABOLIC [id number] 19:05:42 Test Item Value Reference Range Interpretation Comments SODIUM (BEAKER) 137 meq/L 136-145 (test code = 381) POTASSIUM 3.9 meq/L 3.5-5.1 (BEAKER) (test code = 379) CHLORIDE (BEAKER) 90 meq/L 98-107 L (test code = 382) CO2 (BEAKER) 35 meq/L 22-29 H (test code = 355) BLOOD UREA 15 mg/dL 7-21 NITROGEN (BEAKER) (test code = 354) CREATININE 0.93 mg/dL 0.57-1.25 (BEAKER) (test code = 358) GLUCOSE RANDOM 210 mg/dL 70-105 H (BEAKER) (test code = 652) CALCIUM (BEAKER) 8.5 mg/dL 8.4-10.2 (test code = 697) EGFR (BEAKER) 88 Interpretatio n of eGFR (test code = mL/min/1.73 values Stage De scription 1092) sq m Result G1 Osiris l or high >=90 G2 Mildly decreased 60-89 G3a Mildl y to moderately 45-5 9 G3b Moderately to s everely 30-44 G4 Severl y decreased 15-29 G5 Kidney failure <15Reported eGF R is based on the CKD-EPI 2020 equation that d oes not use a race coefficientEsti mated GFR is not as accur ate as Creatinine Hanane quiana in predicting glom erular filtration rate . Estimated GFR is not appl icable for dialysis patien ts Per Diem Physical Therapist ID - ADMINOperator ID - [id number] 19:05:41 Test Item Value Reference Range Interpretation Comments MAGNESIUM (BEAKER) (test code = 1.9 mg/dL 1.6-2.6 627) Per Diem Physical Therapist ID - [id number] 16:50:01 Test Item Value Reference Range Interpretation Comments PARTIAL THROMBOPLASTIN TIME 85.2 seconds 22.5-36.0 H (BEAKER) (test code = 760) POCT-GLUCOSE [id number] 16:46:22 Test Item Value Reference Range Interpretation Comments POC-GLUCOSE METER 268 mg/dL 70-110 H : TESTED A T [facility] 6720 (BEAKER) (test code = MAIKOL [place], 1538) [id number]: Per Diem Physical Therapist/Techni dagmar ID = [id number] for Enid Garcia BLOOD GAS, [id number] 12:47:17 Test Item Value Reference Range Interpretation Comments PH VENOUS (BEAKER) (test code = 7.37 7.32-7.42 701) PCO2 VENOUS (BEAKER) (test code = 73 mm Hg 41-51 HH 755) PO2 VENOUS (BEAKER) (test code = 47 mm Hg 25-40 H 702) O2 SATURATION VENOUS (BEAKER) 79.8 % 40.0-70.0 H (test code = 703) HCO3 VENOUS (BEAKER) (test code = 41 mmol/L 21-29 HH 705) BASE EXCESS VENOUS (BEAKER) (test 12.1 mmol/L -2.0-3.0 H code = 704) PATIENT TEMPERATURE (BEAKER) 37.0 (test code = 1818) FIO2 (BEAKER) (test code = 1819) 21.0 POCT-GLUCOSE [id number] 11:28:05 Test Item Value Reference Range Interpretation Comments POC-GLUCOSE METER 149 mg/dL 70-110 H : TESTED A T [facility] 6720 (BEAKER) (test code = [facility], 1538) [id number]: Per Diem Physical Therapist/Techni dagmar ID = [id number] for Enid Garcia CBC (HEMOGRAM ONLY)2023-03-10 08:36:19 Test Item Value Reference Range Interpretation Comments WHITE BLOOD CELL COUNT (BEAKER) 18.0 K/ L 3.5-10.5 H (test code = 775) RED BLOOD CELL COUNT (BEAKER) 5.12 M/ L 4.63-6.08 (test code = 761) HEMOGLOBIN (BEAKER) (test code = 14.2 GM/DL 13.7-17.5 410) HEMATOCRIT (BEAKER) (test code = 45.8 % 40.1-51.0 411) MEAN CORPUSCULAR VOLUME (BEAKER) 90 fL 79-92 (test code = 753) MEAN CORPUSCULAR HEMOGLOBIN 27.7 pg 25.7-32.2 (BEAKER) (test code = 751) MEAN CORPUSCULAR HEMOGLOBIN CONC 31.0 GM/DL 32.3-36.5 L (BEAKER) (test code = 752) RED CELL DISTRIBUTION WIDTH 13.2 % 11.6-14.4 (BEAKER) (test code = 412) PLATELET COUNT (BEAKER) (test 162 K/CU MM 150-450 code = 756) MEAN PLATELET VOLUME (BEAKER) 12.1 fL 9.4-12.4 (test code = 754) NUCLEATED RED BLOOD CELLS 0 /100 WBC 0-0 (BEAKER) (test code = 413) POCT-GLUCOSE [id number] 08:00:23 Test Item Value Reference Range Interpretation Comments POC-GLUCOSE METER 213 mg/dL 70-110 H : TESTED A T [facility] 6720 (BEAKER) (test code = [facility], 1538) [id number]: Per Diem Physical Therapist/Techni dagmar ID = [id number] for Enid Garcia [id number] 05:59:10 Test Item Value Reference Range Interpretation Comments MAGNESIUM (BEAKER) (test code = 2.0 mg/dL 1.6-2.6 627) Per Diem Physical Therapist ID - EDBLOOD GAS, [id number] 03:59:28 Test Item Value Reference Range Interpretation Comments PH VENOUS (BEAKER) (test code = 7.34 7.32-7.42 701) PCO2 VENOUS (BEAKER) (test code = 68 mm Hg 41-51 H 755) PO2 VENOUS (BEAKER) (test code = 46 mm Hg 25-40 H 702) O2 SATURATION VENOUS (BEAKER) 77.9 % 40.0-70.0 H (test code = 703) HCO3 VENOUS (BEAKER) (test code = 36 mmol/L 21-29 H 705) BASE EXCESS VENOUS (BEAKER) (test 7.5 mmol/L -2.0-3.0 H code = 704) PATIENT TEMPERATURE (BEAKER) (test 37.0 code = 1818) BASIC METABOLIC [id number] 03:55:16 Test Item Value Reference Range Interpretation Comments SODIUM (BEAKER) 136 meq/L 136-145 (test code = 381) POTASSIUM 3.5 meq/L 3.5-5.1 (BEAKER) (test code = 379) CHLORIDE (BEAKER) 92 meq/L 98-107 L (test code = 382) CO2 (BEAKER) 35 meq/L 22-29 H (test code = 355) BLOOD UREA 15 mg/dL 7-21 NITROGEN (BEAKER) (test code = 354) CREATININE 0.93 mg/dL 0.57-1.25 (BEAKER) (test code = 358) GLUCOSE RANDOM 199 mg/dL 70-105 H (BEAKER) (test code = 652) CALCIUM (BEAKER) 8.4 mg/dL 8.4-10.2 (test code = 697) EGFR (BEAKER) 88 Interpretatio n of eGFR (test code = mL/min/1.73 values Stage De scription 1092) sq m Result G1 Osiris l or high >=90 G2 Mildly decreased 60-89 G3a Mildl y to moderately 45-5 9 G3b Moderately to s everely 30-44 G4 Severl y decreased 15-29 G5 Kidney failure <15Reported eGF R is based on the CKD-EPI 2020 equation that d oes not use a race coefficientEsti mated GFR is not as accur ate as Creatinine Hanane quiana in predicting glom erular filtration rate . Estimated GFR is not appl icable for dialysis patien ts Per Diem Physical Therapist ID - [id number] 03:54:29 Test Item Value Reference Range Interpretation Comments PARTIAL THROMBOPLASTIN TIME 54.8 seconds 22.5-36.0 H (BEAKER) (test code = 760) CBC (HEMOGRAM ONLY)2023-03-10 03:39:01 Test Item Value Reference Range Interpretation Comments WHITE BLOOD CELL COUNT (BEAKER) 18.3 K/ L 3.5-10.5 H (test code = 775) RED BLOOD CELL COUNT (BEAKER) 5.12 M/ L 4.63-6.08 (test code = 761) HEMOGLOBIN (BEAKER) (test code = 14.5 GM/DL 13.7-17.5 410) HEMATOCRIT (BEAKER) (test code = 46.7 % 40.1-51.0 411) MEAN CORPUSCULAR VOLUME (BEAKER) 91 fL 79-92 (test code = 753) MEAN CORPUSCULAR HEMOGLOBIN 28.3 pg 25.7-32.2 (BEAKER) (test code = 751) MEAN CORPUSCULAR HEMOGLOBIN CONC 31.0 GM/DL 32.3-36.5 L (BEAKER) (test code = 752) RED CELL DISTRIBUTION WIDTH 13.1 % 11.6-14.4 (BEAKER) (test code = 412) PLATELET COUNT (BEAKER) (test 168 K/CU MM 150-450 code = 756) MEAN PLATELET VOLUME (BEAKER) 12.1 fL 9.4-12.4 (test code = 754) NUCLEATED RED BLOOD CELLS 0 /100 WBC 0-0 (BEAKER) (test code = 413) POCT-GLUCOSE [id number] 21:18:23 Test Item Value Reference Range Interpretation Comments POC-GLUCOSE METER 246 mg/dL 70-110 H : TESTED A T [facility] 6720 (BEAKER) (test code = [facility] [place], 1538) [id number]: Per Diem Physical Therapist/Techni dagmar ID = [id number] for Co lllety, Melany [id number] 19:09:16 Test Item Value Reference Range Interpretation Comments PARTIAL THROMBOPLASTIN TIME 97.7 seconds 22.5-36.0 H (BEAKER) (test code = 760) HIGH SENSITIVITY TROPONIN [id number] 18:29:07 Test Item Value Reference Range Interpretation Comments HIGH SENSITIVITY TROPONIN I (test 19 pg/ml <=35 code = 3636592) Per Diem Physical Therapist ID - Riccardo ADAPTIVE PHYSICAL EDUCATION SPECIALIST STAT High Sensitivity Troponin-I results should be used in conjunction with other diagnostic information such as ECG, clinical observations and information, and patientsymptoms to aid in the diagnosis of AR. [id number] 17:20:24 Test Item Value Reference Range Interpretation Comments MAGNESIUM (BEAKER) (test code = 1.9 mg/dL 1.6-2.6 627) Per Diem Physical Therapist ID - EDBASIC METABOLIC [id number] 17:20:23 Test Item Value Reference Range Interpretation Comments SODIUM (BEAKER) 134 meq/L 136-145 L (test code = 381) POTASSIUM 4.6 meq/L 3.5-5.1 (BEAKER) (test code = 379) CHLORIDE (BEAKER) 92 meq/L 98-107 L (test code = 382) CO2 (BEAKER) 34 meq/L 22-29 H (test code = 355) BLOOD UREA 16 mg/dL 7-21 NITROGEN (BEAKER) (test code = 354) CREATININE 1.16 mg/dL 0.57-1.25 (BEAKER) (test code = 358) GLUCOSE RANDOM 317 mg/dL 70-105 H (BEAKER) (test code = 652) CALCIUM (BEAKER) 8.2 mg/dL 8.4-10.2 L (test code = 697) EGFR (BEAKER) 68 Interpretati on of eGFR (test code = mL/min/1.73 values Stage De scription 1092) sq m Result G1 Osiris l or high >=90 G2 Mildly decreased 60-89 G3a Mildl y to moderately 45- 59 G3b Moderately to s everely 30-44 G4 Severl y decreased 15-29 G5 Kidney failure <15Reported eGF R is based on the CKD-EPI 2020 equation that d oes not use a race coefficientEsti mated GFR is not as accur ate as Creatinine Hanane quiana in predicting glom erular filtration rate . Estimated GFR is not appl icable for dialysis patien ts Per Diem Physical Therapist ID - EDPOCT-GLUCOSE [id number] 17:06:43 Test Item Value Reference Range Interpretation Comments POC-GLUCOSE METER 331 mg/dL 70-110 H : TESTED A T [facility] 6720 (BEAKER) (test code = [facility], 1538) [id number]: Per Diem Physical Therapist/Techni dagmar ID = [id number] for ST [facility]AR[facility] (conract)VANESSA [id number] 12:30:51 Test Item Value Reference Range Interpretation Comments PARTIAL THROMBOPLASTIN TIME 42.9 seconds 22.5-36.0 H (BEAKER) (test code = 760) BLOOD GAS, [id number] 12:29:47 Test Item Value Reference Range Interpretation Comments PH VENOUS (BEAKER) (test code = 7.31 7.32-7.42 L 701) PCO2 VENOUS (BEAKER) (test code = 75 mm Hg 41-51 HH 755) PO2 VENOUS (BEAKER) (test code = 45 mm Hg 25-40 H 702) O2 SATURATION VENOUS (BEAKER) 75.3 % 40.0-70.0 H (test code = 703) HCO3 VENOUS (BEAKER) (test code = 37 mmol/L 21-29 H 705) BASE EXCESS VENOUS (BEAKER) (test 7.7 mmol/L -2.0-3.0 H code = 704) PATIENT TEMPERATURE (BEAKER) (test 37.0 code = 1818) FIO2 (BEAKER) (test code = 1819) 21.0 POCT-GLUCOSE [id number] 12:13:44 Test Item Value Reference Range Interpretation Comments POC-GLUCOSE METER 213 mg/dL 70-110 H : TESTED A T [facility] 6720 (BEAKER) (test code = [facility], 1538) [id number]: Per Diem Physical Therapist/Techni dagmar ID = [id number] for [facility] (conract)VANESSA HEMOGLOBIN [id number] 09:03:26 Test Item Value Reference Range Interpretation Comments HEMOGLOBIN A1C 9.1 % See_Comment H [Automated m essage] ELECTROPHORESIS (BEAKER) The system which (test code = 3811) generated this result transmitted ref erence range: <=5.6%. The reference range was not used to int erpret this result as normal/abnormal . "The A1c is measured using a NGSP-certified method. HbA1c value equal to or greater than 6.5% as thediagnosis cutoff for diabetes. An HbA1c value of 5.7- 6.4% indicates increased risk for diabetes (prediabetes)."Per Diem Physical Therapist ID - ADMPOCT- GLUCOSE [id number] 07:35:43 Test Item Value Reference Range Interpretation Comments POC-GLUCOSE METER 301 mg/dL 70-110 H : TESTED A T [facility] 6720 (BEAKER) (test code = [facility] [place], 1538) [id number]: Per Diem Physical Therapist/Techni adgmar ID = [id number] for YNAIRA JEONG [id number] 04:07:18 Test Item Value Reference Range Interpretation Comments MAGNESIUM (BEAKER) (test code = 2.0 mg/dL 1.6-2.6 627) Per Diem Physical Therapist ID - EDBASIC METABOLIC [id number] 04:07:17 Test Item Value Reference Range Interpretation Comments SODIUM (BEAKER) 130 meq/L 136-145 L (test code = 381) POTASSIUM 4.3 meq/L 3.5-5.1 (BEAKER) (test code = 379) CHLORIDE (BEAKER) 93 meq/L 98-107 L (test code = 382) CO2 (BEAKER) 32 meq/L 22-29 H (test code = 355) BLOOD UREA 14 mg/dL 7-21 NITROGEN (BEAKER) (test code = 354) CREATININE 1.06 mg/dL 0.57-1.25 (BEAKER) (test code = 358) GLUCOSE RANDOM 315 mg/dL 70-105 H (BEAKER) (test code = 652) CALCIUM (BEAKER) 8.1 mg/dL 8.4-10.2 L (test code = 697) EGFR (BEAKER) 75 Interpretatio n of eGFR (test code = mL/min/1.73 values Stage De scription 1092) sq m Result G1 Osiris l or high >=90 G2 Mildly decreased 60-89 G3a Mildl y to moderately 45-5 9 G3b Moderately to s everely 30-44 G4 Severl y decreased 15-29 G5 Kidney failure <15Reported eGF R is based on the CKD-EPI 2020 equation that d oes not use a race coefficientEsti mated GFR is not as accur ate as Creatinine Hanane araya in predicting glom erular filtration rate . Estimated GFR is not appl icable for dialysis patien ts Per Diem Physical Therapist ID - EDOXYGEN SATURATION, [id number] 03:41:39 Test Item Value Reference Range Interpretation Comments O2 SATURATION (MEASURED) (BEAKER) 77.0 % (test code = 1455) [id number] 03:38:58 Test Item Value Reference Range Interpretation Comments PARTIAL THROMBOPLASTIN TIME 44.2 seconds 22.5-36.0 H (BEAKER) (test code = 760) CBC W/PLT COUNT & AUTO [id number] 03:34:22 Test Item Value Reference Range Interpretation Comments WHITE BLOOD CELL COUNT (BEAKER) 15.0 K/ L 3.5-10.5 H (test code = 775) RED BLOOD CELL COUNT (BEAKER) 5.06 M/ L 4.63-6.08 (test code = 761) HEMOGLOBIN (BEAKER) (test code = 14.6 GM/DL 13.7-17.5 410) HEMATOCRIT (BEAKER) (test code = 46.1 % 40.1-51.0 411) MEAN CORPUSCULAR VOLUME (BEAKER) 91 fL 79-92 (test code = 753) MEAN CORPUSCULAR HEMOGLOBIN 28.9 pg 25.7-32.2 (BEAKER) (test code = 751) MEAN CORPUSCULAR HEMOGLOBIN CONC 31.7 GM/DL 32.3-36.5 L (BEAKER) (test code = 752) RED CELL DISTRIBUTION WIDTH 13.2 % 11.6-14.4 (BEAKER) (test code = 412) PLATELET COUNT (BEAKER) (test 160 K/CU MM 150-450 code = 756) MEAN PLATELET VOLUME (BEAKER) 12.2 fL 9.4-12.4 (test code = 754) NUCLEATED RED BLOOD CELLS 0 /100 WBC 0-0 (BEAKER) (test code = 413) NEUTROPHILS RELATIVE PERCENT 87 % (BEAKER) (test code = 429) LYMPHOCYTES RELATIVE PERCENT 8 % (BEAKER) (test code = 430) MONOCYTES RELATIVE PERCENT 4 % (BEAKER) (test code = 431) EOSINOPHILS RELATIVE PERCENT 0 % (BEAKER) (test code = 432) BASOPHILS RELATIVE PERCENT 0 % (BEAKER) (test code = 437) NEUTROPHILS ABSOLUTE COUNT 13.10 K/ L 1.78-5.38 H (BEAKER) (test code = 670) LYMPHOCYTES ABSOLUTE COUNT 1.18 K/ L 1.32-3.57 L (BEAKER) (test code = 414) MONOCYTES ABSOLUTE COUNT (BEAKER) 0.65 K/ L 0.30-0.82 (test code = 415) EOSINOPHILS ABSOLUTE COUNT 0.00 K/ L 0.04-0.54 L (BEAKER) (test code = 416) BASOPHILS ABSOLUTE COUNT (BEAKER) 0.01 K/ L 0.01-0.08 (test code = 417) IMMATURE GRANULOCYTES-RELATIVE 0.40 % 0.00-1.00 PERCENT (BEAKER) (test code = 2801) OXYGEN SATURATION, [id number] 22:19:27 Test Item Value Reference Range Interpretation Comments O2 SATURATION (MEASURED) (BEAKER) 79.0 % (test code = 1455) POCT-GLUCOSE [id number] 22:13:40 Test Item Value Reference Range Interpretation Comments POC-GLUCOSE METER 290 mg/dL 70-110 H : TESTED A T [facility] 6720 (BEAKER) (test code = [facility], 1538) [address]: Per Diem Physical Therapist/Techni dagmar ID = [id number] for Jeffrey Nj [id number] 20:58:25 Test Item Value Reference Range Interpretation Comments PARTIAL THROMBOPLASTIN TIME 37.1 seconds 22.5-36.0 H (BEAKER) (test code = 760) [id number] 19:08:33 Test Item Value Reference Range Interpretation Comments FERRITIN (BEAKER) (test code = 66.30 ng/mL 5.00-275.00 361) Per Diem Physical Therapist ID - DBIRON, TIBC, % SAT. (WITHOUT FERRITIN)2023-03-08 18:31:46 Test Item Value Reference Range Interpretation Comments IRON (BEAKER) (test code = 547) 50.0 ug/dL 40.0-160.0 TOTAL IRON BINDING CAPACITY 358 ug/dL 250-450 (BEAKER) (test code = 769) IRON % SATURATION (2) (BEAKER) 14 % 20-55 L (test code = 2590) Per Diem Physical Therapist ID - [id number] 18:31:46 Test Item Value Reference Range Interpretation Comments PHOSPHORUS (BEAKER) (test code = 5.0 mg/dL 2.3-4.7 H 604) Per Diem Physical Therapist ID - EDLIPID [id number] 17:35:21 Test Item Value Reference Range Interpretation Comments TRIGLYCERIDES (BEAKER) (test code = 103 mg/dL 540) CHOLESTEROL (BEAKER) (test code = 97 mg/dL 631) HDL CHOLESTEROL (BEAKER) (test code 28 mg/dL = 976) LDL CHOLESTEROL CALCULATED (BEAKER) 48 mg/dL (test code = 633) Triglyceride Reference Range: Low Risk <150 Borderline 150-199 High Risk 200- 499 Very High Risk >=500Cholesterol Reference Range: Low Risk <200 Borderline 200-239 High Risk >240HDL Cholesterol Reference Range: Low Risk >=60 High Risk <40LDL Cholesterol Reference Range: Optimal <100 Near Optimal 100-129 Borderline 130-159 High 160-189 Very High >=190 Per Diem Physical Therapist ID - EDPOCT-GLUCOSE [id number] 16:30:47 Test Item Value Reference Range Interpretation Comments POC-GLUCOSE METER 246 mg/dL 70-110 H : TESTED A T [facility] 6720 (BEAKER) (test code = [facility]IK[facility], 1538) [address]: Per Diem Physical Therapist/Techni dagmar ID = [id number] for PARIS TORRES HIGH SENSITIVITY TROPONIN [id number] 16:11:15 Test Item Value Reference Range Interpretation Comments HIGH SENSITIVITY TROPONIN I (test 22 pg/ml <=35 code = 9712158) Per Diem Physical Therapist ID - EDThe ADAPTIVE PHYSICAL EDUCATION SPECIALIST STAT High Sensitivity Troponin-I results should be used in conjunctionwith other diagnostic information such as ECG, clinical observations and information, and patient symptoms to aid in the diagnosis of AR.BASIC METABOLIC [id number] 16:03:54 Test Item Value Reference Range Interpretation Comments SODIUM (BEAKER) 132 meq/L 136-145 L (test code = 381) POTASSIUM 4.3 meq/L 3.5-5.1 (BEAKER) (test code = 379) CHLORIDE (BEAKER) 93 meq/L 98-107 L (test code = 382) CO2 (BEAKER) 33 meq/L 22-29 H (test code = 355) BLOOD UREA 13 mg/dL 7-21 NITROGEN (BEAKER) (test code = 354) CREATININE 0.96 mg/dL 0.57-1.25 (BEAKER) (test code = 358) GLUCOSE RANDOM 266 mg/dL 70-105 H (BEAKER) (test code = 652) CALCIUM (BEAKER) 8.4 mg/dL 8.4-10.2 (test code = 697) EGFR (BEAKER) 85 Interpretatio n of eGFR (test code = mL/min/1.73 values Stage De scription 1092) sq m Result G1 Osiris l or high >=90 G2 Mildly decreased 60-89 G3a Mildl y to moderately 45- 59 G3b Moderately to s everely 30-44 G4 Severl y decreased 15-29 G5 Kidney failure <15Reported eGF R is based on the CKD-EPI 2020 equation that d oes not use a race coefficientEsti mated GFR is not as accur ate as Creatinine Hanane quiana in predicting glom erular filtration rate . Estimated GFR is not appl icable for dialysis patien ts Per Diem Physical Therapist ID - [id number] 16:03:54 Test Item Value Reference Range Interpretation Comments MAGNESIUM (BEAKER) (test code = 2.2 mg/dL 1.6-2.6 627) Per Diem Physical Therapist ID - [id number] 15:50:01 Test Item Value Reference Range Interpretation Comments PARTIAL THROMBOPLASTIN TIME 33.1 seconds 22.5-36.0 (BEAKER) (test code = 760) POCT-GLUCOSE [id number] 12:38:55 Test Item Value Reference Range Interpretation Comments POC-GLUCOSE METER 315 mg/dL 70-110 H : TESTED A T [facility] 6720 (BEAKER) (test code [facility], = 1538) [address]: Per Diem Physical Therapist/Techni dagmar ID = [id number] for Raul h, Stella CBC (HEMOGRAM ONLY)2023-03-08 12:18:10 Test Item Value Reference Range Interpretation Comments WHITE BLOOD CELL COUNT (BEAKER) 15.9 K/ L 3.5-10.5 H (test code = 775) RED BLOOD CELL COUNT (BEAKER) 5.21 M/ L 4.63-6.08 (test code = 761) HEMOGLOBIN (BEAKER) (test code = 15.0 GM/DL 13.7-17.5 410) HEMATOCRIT (BEAKER) (test code = 47.8 % 40.1-51.0 411) MEAN CORPUSCULAR VOLUME (BEAKER) 92 fL 79-92 (test code = 753) MEAN CORPUSCULAR HEMOGLOBIN 28.8 pg 25.7-32.2 (BEAKER) (test code = 751) MEAN CORPUSCULAR HEMOGLOBIN CONC 31.4 GM/DL 32.3-36.5 L (BEAKER) (test code = 752) RED CELL DISTRIBUTION WIDTH 13.3 % 11.6-14.4 (BEAKER) (test code = 412) PLATELET COUNT (BEAKER) (test 189 K/CU MM 150-450 code = 756) MEAN PLATELET VOLUME (BEAKER) 12.8 fL 9.4-12.4 H (test code = 754) NUCLEATED RED BLOOD CELLS 0 /100 WBC 0-0 (BEAKER) (test code = 413) [id number] 09:01:00 Test Item Value Reference Range Interpretation Comments PARTIAL THROMBOPLASTIN TIME 32.9 seconds 22.5-36.0 (BEAKER) (test code = 760) CT, CHEST WITH IV CONTRAST- PE TEST [id number] 06:30:00Unlisted Reason for Exam - Click Yes and Enter Reason Below->No [facility] DIANN GALINDO JUAN C : 1950 Sex: MFINAL REPORT TECHNIQUE: CT scan of the chest WITH intravenous contrast. Dose modulation, iterative reconstruction, and/or weight-based adjustment of the mA/kV was utilized to reduce the radiation dose to as low as reasonably achievable. Coronal and sagittal reformations were provided. MIP images were provided to better assess the vasculature. INDICATION: PE suspected, high prob COMPARISON: None. FINDINGS: LINES/TUBES: Left transjugular central venous catheter terminates in the SVC. PULMONARY ARTERIES: Proximal to the bifurcation of the main pulmonary artery, the main pulmonary artery is 3.0 cm in diameter. There is decreased gradual opacification of segmental pulmonary arteries in the lateral left lower lobe without focal filling defect No central filling defects within the pulmonary arteries to suggest acute pulmonary embolus. LUNGS AND AIRWAYS: Advanced biapical centrilobular emphysema. No focal airspace consolidation. There is mild bibasilar dependent atelectasis. Tracheobronchial airways are clear. PLEURA: Trace right pleural effusion. HEART AND MEDIASTINUM: The visualized thyroid gland is normal. No mediastinal, hilar, or axillary lymphadenopathy. Heart is enlarged. Contrast refluxes into the hepatic veins. No pericardial effusion. SOFT TISSUES AND BONES: No acute osseous abnormality. No significant soft tissue finding. UPPER ABDOMEN: There are noninflamed colonic diverticula. IMPRESSION:1. Decreased opacification of subsegmental pulmonary arteries in the left lowerlobe favored to reflect a mixing of contrast or alternatively small distal chronic pulmonary embolism. There is no central filling defect to suggest acute pulmonary embolism. 2. Cardiomegaly with findin gs of right heart failure. 3. Small right pleural effusion. 4. Advanced pulmonary emphysema. 5. Colonic diverticulosis. Signed: Any Steiner [facility] Verified Date/Time: 03/08/2023 06:30:00 BASIC METABOLIC [id number] 04:17:20 Test Item Value Reference Range Interpretation Comments SODIUM (BEAKER) 135 meq/L 136-145 L (test code = 381) POTASSIUM 4.6 meq/L 3.5-5.1 (BEAKER) (test code = 379) CHLORIDE (BEAKER) 98 meq/L 98-107 (test code = 382) CO2 (BEAKER) 28 meq/L 22-29 (test code = 355) BLOOD UREA 11 mg/dL 7-21 NITROGEN (BEAKER) (test code = 354) CREATININE 0.80 mg/dL 0.57-1.25 (BEAKER) (test code = 358) GLUCOSE RANDOM 222 mg/dL 70-105 H (BEAKER) (test code = 652) CALCIUM (BEAKER) 8.6 mg/dL 8.4-10.2 (test code = 697) EGFR (BEAKER) 94 Interpretatio n of eGFR (test code = mL/min/1.73 values Stage D escription 1092) sq m Result G1 Osiris l or high >=90 G2 Mildly decreased 60-89 G3a Mildl y to moderately 45-5 9 G3b Moderately to s everely 30-44 G4 Severl y decreased 15-29 G5 Kidney failure <15Reported eGF R is based on the CKD-EPI 2020 equation that d oes not use a race coefficientEsti mated GFR is not as accur ate as Creatinine Hanane quiana in predicting glom erular filtration rate . Estimated GFR is not appl icable for dialysis patien ts Per Diem Physical Therapist ID - [id number] 04:17:20 Test Item Value Reference Range Interpretation Comments MAGNESIUM (BEAKER) (test code = 1.8 mg/dL 1.6-2.6 627) Per Diem Physical Therapist ID - MMHEPATIC FUNCTION [id number] 04:17:20 Test Item Value Reference Range Interpretation Comments TOTAL PROTEIN (BEAKER) (test code = 7.0 gm/dL 6.0-8.3 770) ALBUMIN (BEAKER) (test code = 1145) 3.6 g/dL 3.5-5.0 BILIRUBIN TOTAL (BEAKER) (test code 1.2 mg/dL 0.2-1.2 = 377) BILIRUBIN DIRECT (BEAKER) (test 0.4 mg/dL 0.1-0.5 code = 706) ALKALINE PHOSPHATASE (BEAKER) (test 69 U/L 40-150 code = 346) AST (SGOT) (BEAKER) (test code = 11 U/L 5-34 353) ALT (SGPT) (BEAKER) (test code = 10 U/L 6-55 347) Per Diem Physical Therapist ID - MMTSH/FREE T4 IF [id number] 03:07:12 Test Item Value Reference Range Interpretation Comments THYROID STIMULATING HORMONE 1.513 uIU/mL 0.350-4.940 (BEAKER) (test code = 772) Per Diem Physical Therapist ID - ADMINB-TYPE NATRIURETIC FACTOR (BNP)2023-03-08 02:51:02 Test Item Value Reference Range Interpretation Comments B-TYPE NATRIURETIC PEPTIDE (BEAKER) 677 pg/mL 0-100 H (test code = 700) Per Diem Physical Therapist ID - MMHIGH SENSITIVITY TROPONIN [id number] 02:50:42 Test Item Value Reference Range Interpretation Comments HIGH SENSITIVITY TROPONIN I (test 25 pg/ml <=35 code = 9282844) Per Diem Physical Therapist ID - MMThe ADAPTIVE PHYSICAL EDUCATION SPECIALIST STAT High Sensitivity Troponin-I results should be used in conjunctionwith other diagnostic information such as ECG, clinical observations and information, and patient symptoms to aid in the diagnosis of AR.J-[id number] 02:34:52 Test Item Value Reference Range Interpretation Comments D-DIMER QUANTITATIVE (BEAKER) 0.72 MG/L FEU <0.50 H (test code = 671) Intended Use: The D-Dimer Assay can be used to aid in the diagnosis of Deep Vein Thrombosis (DVT) and Pulmonary Embolism Disease (PED).In patients with low pre- test probability, various studies concerning STA Liatest D-dimer test have reported that with a cutoff value of 0.50 MG/L FEU, the Negative Predictive Value (NPV) regarding the exclusion of thrombosis is within 95-100% range.APTT 2023-03-08 02:32:52 Test Item Value Reference Range Interpretation Comments PARTIAL THROMBOPLASTIN TIME 31.2 seconds 22.5-36.0 (BEAKER) (test code = 760) LACTIC ACID, [id number] 02:32:51 Test Item Value Reference Range Interpretation Comments LACTATE BLOOD VENOUS 1.19 mmol/L 0.50-2.00 Specime n slightly (2) (BEAKER) (test hemolyzed code = 2872) Per Diem Physical Therapist ID - ADMINCBC W/PLT COUNT & AUTO [id number] 02:21:31 Test Item Value Reference Range Interpretation Comments WHITE BLOOD CELL COUNT (BEAKER) 16.2 K/ L 3.5-10.5 H (test code = 775) RED BLOOD CELL COUNT (BEAKER) 5.50 M/ L 4.63-6.08 (test code = 761) HEMOGLOBIN (BEAKER) (test code = 15.4 GM/DL 13.7-17.5 410) HEMATOCRIT (BEAKER) (test code = 48.9 % 40.1-51.0 411) MEAN CORPUSCULAR VOLUME (BEAKER) 89 fL 79-92 (test code = 753) MEAN CORPUSCULAR HEMOGLOBIN 28.0 pg 25.7-32.2 (BEAKER) (test code = 751) MEAN CORPUSCULAR HEMOGLOBIN CONC 31.5 GM/DL 32.3-36.5 L (BEAKER) (test code = 752) RED CELL DISTRIBUTION WIDTH 13.2 % 11.6-14.4 (BEAKER) (test code = 412) PLATELET COUNT (BEAKER) (test 213 K/CU MM 150-450 code = 756) MEAN PLATELET VOLUME (BEAKER) 11.7 fL 9.4-12.4 (test code = 754) NUCLEATED RED BLOOD CELLS 0 /100 WBC 0-0 (BEAKER) (test code = 413) NEUTROPHILS RELATIVE PERCENT 75 % (BEAKER) (test code = 429) LYMPHOCYTES RELATIVE PERCENT 16 % (BEAKER) (test code = 430) MONOCYTES RELATIVE PERCENT 8 % (BEAKER) (test code = 431) EOSINOPHILS RELATIVE PERCENT 0 % (BEAKER) (test code = 432) BASOPHILS RELATIVE PERCENT 0 % (BEAKER) (test code = 437) NEUTROPHILS ABSOLUTE COUNT 12.21 K/ L 1.78-5.38 H (BEAKER) (test code = 670) LYMPHOCYTES ABSOLUTE COUNT 2.53 K/ L 1.32-3.57 (BEAKER) (test code = 414) MONOCYTES ABSOLUTE COUNT (BEAKER) 1.30 K/ L 0.30-0.82 H (test code = 415) EOSINOPHILS ABSOLUTE COUNT 0.05 K/ L 0.04-0.54 (BEAKER) (test code = 416) BASOPHILS ABSOLUTE COUNT (BEAKER) 0.07 K/ L 0.01-0.08 (test code = 417) IMMATURE GRANULOCYTES-RELATIVE 0.40 % 0.00-1.00 PERCENT (BEAKER) (test code = 2801) OXYGEN SATURATION, [id number] 02:21:21 Test Item Value Reference Range Interpretation Comments O2 SATURATION (MEASURED) (BEAKER) 68.3 % (test code = 1455) BLOOD GAS, [id number] 02:19:26 Test Item Value Reference Range Interpretation Comments PH VENOUS (BEAKER) (test code = 7.31 7.32-7.42 L 701) PCO2 VENOUS (BEAKER) (test code = 62 mm Hg 41-51 H 755) PO2 VENOUS (BEAKER) (test code = 40 mm Hg 25-40 702) O2 SATURATION VENOUS (BEAKER) 69.1 % 40.0-70.0 (test code = 703) HCO3 VENOUS (BEAKER) (test code = 30 mmol/L 21-29 H 705) BASE EXCESS VENOUS (BEAKER) (test 2.0 mmol/L -2.0-3.0 code = 704) PATIENT TEMPERATURE (BEAKER) (test 37.0 code = 1818) FIO2 (BEAKER) (test code = 1819) 21.0 POCT GLUCOSE (AUTOMATED)2022-07-27 17:05:15 Test Item Value Reference Range Interpretation Comments POCT GLU (test code = 3866186251) 264 mg/dL 70-110 H Lab Interpretation (test code = Abnormal 68433-0) General acute hospital GLUCOSE (AUTOMATED)2022-07-27 17:05:15 Test Item Value Reference Range Interpretation Comments POCT GLU (test code = 5278483815) 264 mg/dL 70-110 H Lab Interpretation (test code = Abnormal 39789-5) [id number] 15:17:32 Test Item Value Reference Range Interpretation Comments NT-proBNP (test code 1090 pg/mL See_Comment H [Autom ated = 8222359343) message] The system which generated this result transmitted reference range : <=125. The reference range was not used to interpret this result as normal/abnormal . ROSLYN (test code = ROSLYN) Biotin has been reported to cause a negative bias, interpret results relative to patient's use of biotin. Lab Interpretation Abnormal (test code = 83212-2) [id number] 15:17:32 Test Item Value Reference Range Interpretation Comments NT-proBNP (test code 1090 pg/mL See_Comment H [Autom ated = 8738292388) message] The system which generated this result transmitted reference range : <=125. The reference range was not used to interpret this result as normal/abnormal . ROSLYN (test code = ROSLYN) Biotin has been reported to cause a negative bias, interpret results relative to patient's use of biotin. Lab Interpretation Abnormal (test code = 29295-9) [facility] 11:45:45 Test Item Value Reference Range Interpretation Comments MAGNESIUM (test code = 7827910632) 1.9 mg/dL 1.7-2.4 Lab Interpretation (test code = Normal 68513-7) [facility] METABOLIC PANEL (NA, K, CL, CO2, GLUCOSE, BUN, CREATININE, CA)2022-07-27 11:45:45 Test Item Value Reference Range Interpretation Comments NA (test code = 130 mmol/L 135-145 L 0335038780) K (test code = 4.1 mmol/L 3.5-5 5223095590) CL (test code = 89 mmol/L 98-108 L 1543734807) CO2 TOTAL (test code = 37 mmol/L 23-31 H 3782924056) AGAP (test code = 2-16 4435454856) BUN (test code = 32 mg/dL 7-23 H 5022195569) GLUCOSE (test code = 180 mg/dL 70-110 H 1615914008) CREATININE (test code = 0.81 mg/dL 0.6-1.25 9092227864) CALCIUM (test code = 8.5 mg/dL 8.6-10.6 L 6729429221) eGFR (test code = mL/min/1.73m2 4962903427) ROSLYN (test code = ROSLYN) Association of [...] tests). Lab Interpretation Abnormal (test code = 57432-7) [facility] 11:45:45 Test Item Value Reference Range Interpretation Comments MAGNESIUM (test code = 5811697235) 1.9 mg/dL 1.7-2.4 Lab Interpretation (test code = Normal 92225-9) [facility] (NA, K, CL, CO2, GLUCOSE, BUN, CREATININE, CA)2022-07-27 11:45:45 Test Item Value Reference Range Interpretation Comments NA (test code = 130 mmol/L 135-145 L 1149701147) K (test code = 4.1 mmol/L 3.5-5 2269527719) CL (test code = 89 mmol/L 98-108 L 0855931116) CO2 TOTAL (test code = 37 mmol/L 23-31 H 4221044403) AGAP (test code = 2-16 7776988594) BUN (test code = 32 mg/dL 7-23 H 6308456039) GLUCOSE (test code = 180 mg/dL 70-110 H 6126689236) CREATININE (test code = 0.81 mg/dL 0.6-1.25 7827961786) CALCIUM (test code = 8.5 mg/dL 8.6-10.6 L 2417402436) eGFR (test code = mL/min/1.73m2 5206021503) ROSLYN (test code = ROSLYN) Association of [...] tests). Lab Interpretation Abnormal (test code = 47306-7) General acute hospital GLUCOSE (AUTOMATED)2022-07-27 10:39:46 Test Item Value Reference Range Interpretation Comments POCT GLU (test code = 8964259545) 198 mg/dL 70-110 H Lab Interpretation (test code = Abnormal 52171-3) General acute hospital GLUCOSE (AUTOMATED)2022-07-27 10:39:46 Test Item Value Reference Range Interpretation Comments POCT GLU (test code = 0146357533) 198 mg/dL 70-110 H Lab Interpretation (test code = Abnormal 87318-8) General acute hospital GLUCOSE (AUTOMATED)2022-07-27 04:52:50 Test Item Value Reference Range Interpretation Comments POCT GLU (test code = 0270632140) 213 mg/dL 70-110 H Lab Interpretation (test code = Abnormal 36281-2) General acute hospital GLUCOSE (AUTOMATED)2022-07-27 04:52:50 Test Item Value Reference Range Interpretation Comments POCT GLU (test code = 1376748473) 213 mg/dL 70-110 H Lab Interpretation (test code = Abnormal 38899-4) General acute hospital GLUCOSE (AUTOMATED)2022-07-27 01:10:58 Test Item Value Reference Range Interpretation Comments POCT GLU (test code = 8416800663) 284 mg/dL 70-110 H Lab Interpretation (test code = Abnormal 30829-3) General acute hospital GLUCOSE (AUTOMATED)2022-07-27 01:10:58 Test Item Value Reference Range Interpretation Comments POCT GLU (test code = 9179033336) 284 mg/dL 70-110 H Lab Interpretation (test code = Abnormal 92661-0) General acute hospital GLUCOSE (AUTOMATED)2022-07-26 23:39:10 Test Item Value Reference Range Interpretation Comments POCT GLU (test code = 7771557807) 199 mg/dL 70-110 H Lab Interpretation (test code = Abnormal 83148-4) General acute hospital GLUCOSE (AUTOMATED)2022-07-26 23:39:10 Test Item Value Reference Range Interpretation Comments POCT GLU (test code = 6375388703) 199 mg/dL 70-110 H Lab Interpretation (test code = Abnormal 87921-4) [facility] (for use with Heparin Infusion)2022-07-26 23:32:33 Test Item Value Reference Range Interpretation Comments APTT Patient (test code = See_Comment [ Automated message] 3173-2) The system [employer] generated this result transmitted ref erence range: 26 - 36 Seconds. The re ference range was not u sed to interpret this result as normal/abnor mal. Lab Interpretation (test Normal code = 14352-6) [facility] (for use with Heparin Infusion)2022-07-26 23:32:33 Test Item Value Reference Range Interpretation Comments APTT Patient (test code = See_Comment [ Automated message] 3173-2) The system [employer] generated this result transmitted ref erence range: 26 - 36 Seconds. The re ference range was not u sed to interpret this result as normal/abnor mal. Lab Interpretation (test Normal code = 63423-7) General acute hospital GLUCOSE (AUTOMATED)2022-07-26 16:22:25 Test Item Value Reference Range Interpretation Comments POCT GLU (test code = 8490255768) 167 mg/dL 70-110 H Lab Interpretation (test code = Abnormal 29423-1) General acute hospital GLUCOSE (AUTOMATED)2022-07-26 16:22:25 Test Item Value Reference Range Interpretation Comments POCT GLU (test code = 0686284980) 167 mg/dL 70-110 H Lab Interpretation (test code = Abnormal 40221-8) [facility] 12:31:04 Test Item Value Reference Range Interpretation Comments POCT GLU (test code = 9281825473) 164 mg/dL 70-110 H Lab Interpretation (test code = Abnormal 29445-8) General acute hospital GLUCOSE (AUTOMATED)2022-07-26 12:31:04 Test Item Value Reference Range Interpretation Comments POCT GLU (test code = 1278968826) 164 mg/dL 70-110 H Lab Interpretation (test code = Abnormal 10819-6) General acute hospital GLUCOSE (AUTOMATED)2022-07-26 11:09:37 Test Item Value Reference Range Interpretation Comments POCT GLU (test code = 8593859033) 184 mg/dL 70-110 H Lab Interpretation (test code = Abnormal 88281-1) General acute hospital GLUCOSE (AUTOMATED)2022-07-26 11:09:37 Test Item Value Reference Range Interpretation Comments POCT GLU (test code = 6352500252) 184 mg/dL 70-110 H Lab Interpretation (test code = Abnormal 05528-8) General acute hospital GLUCOSE (AUTOMATED)2022-07-26 08:53:59 Test Item Value Reference Range Interpretation Comments POCT GLU (test code = 0007668520) 200 mg/dL 70-110 H Lab Interpretation (test code = Abnormal 73033-0) General acute hospital GLUCOSE (AUTOMATED)2022-07-26 08:53:59 Test Item Value Reference Range Interpretation Comments POCT GLU (test code = [id number]) 200 mg/dL 70-110 H Lab Interpretation (test code = Abnormal 57246-2) General acute hospital GLUCOSE (AUTOMATED)2022-07-26 05:20:56 Test Item Value Reference Range Interpretation Comments POCT GLU (test code = [id number]) 197 mg/dL 70-110 H Lab Interpretation (test code = Abnormal 75649-2) General acute hospital GLUCOSE (AUTOMATED)2022-07-26 05:20:56 Test Item Value Reference Range Interpretation Comments POCT GLU (test code = 4558938972) 197 mg/dL 70-110 H Lab Interpretation (test code = Abnormal 08650-3) [facility] CULTURE [id number] 03:01:42 Test Item Value Reference Range Interpretation Comments Blood Culture-Aerobic No organisms No growth Previo us (test code = 05250-5) isolated prelim inary verified result was Culture In Progress on 07/21/2022 at 11 10 CDTPrevious preliminary verified result was No growth a t 24 hours on 07/21/2022 at 01 12 CDTPrevious preliminary verified result was No growth a t 48 hours on 07/22/2022 at 01 12 CDTPrevious preliminary verified result was No growth a t 72 hours on 07/23/2022 at 02 CDT Blood No organisms No growth Previous Culture-Anaerobic isolated preliminar y (test code = 03521-4) verifi ed result was Culture In Progress [...] CDT Lab Interpretation Normal (test code = 86412-7) [facility] CULTURE [id number] 03:01:42 Test Item Value Reference Range Interpretation Comments Blood Culture-Aerobic No organisms No growth Previo us (test code = 77681-9) isolated prelim inary verified result was Culture [...] Culture-Anaerobic isolated preliminar y (test code = 56070-9) verifi ed result was Culture In Progress [...] CDT Lab Interpretation Normal (test code = 47280-1) [facility] GLUCOSE (AUTOMATED)2022-07-26 01:46:28 Test Item Value Reference Range Interpretation Comments POCT GLU (test code = 1778025174) 142 mg/dL 70-110 H Lab Interpretation (test code = Abnormal 21601-9) [facility] GLUCOSE (AUTOMATED)2022-07-26 01:46:28 Test Item Value Reference Range Interpretation Comments POCT GLU (test code = 9082346886) 142 mg/dL 70-110 H Lab Interpretation (test code = Abnormal 40019-0) General acute hospital GLUCOSE (AUTOMATED)2022-07-25 21:23:27 Test Item Value Reference Range Interpretation Comments POCT GLU (test code = 7263108094) 159 mg/dL 70-110 H Lab Interpretation (test code = Abnormal 77742-5) General acute hospital GLUCOSE (AUTOMATED)2022-07-25 21:23:27 Test Item Value Reference Range Interpretation Comments POCT GLU (test code = 8259122591) 159 mg/dL 70-110 H Lab Interpretation (test code = Abnormal 18701-4) General acute hospital GLUCOSE (AUTOMATED)2022-07-25 20:47:32 Test Item Value Reference Range Interpretation Comments POCT GLU (test code = 3353763884) 151 mg/dL 70-110 H Lab Interpretation (test code = Abnormal 58105-9) [facility] acute hospital GLUCOSE (AUTOMATED)2022-07-25 20:47:32 Test Item Value Reference Range Interpretation Comments POCT GLU (test code = 1208806314) 151 mg/dL 70-110 H Lab Interpretation (test code = Abnormal 07875-5) [facility] GLUCOSE (AUTOMATED)2022-07-25 17:16:01 Test Item Value Reference Range Interpretation Comments POCT GLU (test code = 9740751924) 389 mg/dL 70-110 H Lab Interpretation (test code = Abnormal 48675-8) General acute hospital GLUCOSE (AUTOMATED)2022-07-25 17:16:01 Test Item Value Reference Range Interpretation Comments POCT GLU (test code = 9760635583) 389 mg/dL 70-110 H Lab Interpretation (test code = Abnormal 40205-0) [facility] (for use with Heparin Infusion)2022-07-25 15:08:51 Test Item Value Reference Range Interpretation Comments APTT Patient (test code = See_Comment [ Automated message] 3173-2) The system Son[employer] generated this result transmitted ref erence range: 26 - 36 Seconds. The re ference range was not u sed to interpret this result as normal/abnor mal. Lab Interpretation (test Normal code = 20105-8) [facility] (for use with Heparin Infusion)2022-07-25 15:08:51 Test Item Value Reference Range Interpretation Comments APTT Patient (test code = See_Comment [ Automated message] 3173-2) The system [employer] generated this result transmitted ref erence range: 26 - 36 Seconds. The re ference range was not u sed to interpret this result as normal/abnor mal. Lab Interpretation (test Normal code = 12651-6) [facility] acute hospital GLUCOSE (AUTOMATED)2022-07-25 13:22:34 Test Item Value Reference Range Interpretation Comments POCT GLU (test code = 7722871414) 168 mg/dL 70-110 H Lab Interpretation (test code = Abnormal 84370-8) General acute hospital GLUCOSE (AUTOMATED)2022-07-25 13:22:34 Test Item Value Reference Range Interpretation Comments POCT GLU (test code = 2800297591) 168 mg/dL 70-110 H Lab Interpretation (test code = Abnormal 66015-7) General acute hospital GLUCOSE (AUTOMATED)2022-07-25 01:59:34 Test Item Value Reference Range Interpretation Comments POCT GLU (test code = 3020151898) 202 mg/dL 70-110 H Lab Interpretation (test code = Abnormal 74497-6) General acute hospital GLUCOSE (AUTOMATED)2022-07-25 01:59:34 Test Item Value Reference Range Interpretation Comments POCT GLU (test code = 0390341150) 202 mg/dL 70-110 H Lab Interpretation (test code = Abnormal 12786-8) [facility] METABOLIC PANEL (NA, K, CL, CO2, GLUCOSE, BUN, CREATININE, CA)2022-07-24 23:06:12 Test Item Value Reference Range Interpretation Comments NA (test code = 135 mmol/L 135-145 7566801389) K (test code = 4.1 mmol/L 3.5-5 4632588870) CL (test code = 95 mmol/L 98-108 L 2356802823) CO2 TOTAL (test code = 39 mmol/L 23-31 H 5182763915) AGAP (test code = 2-16 L 3970890364) BUN (test code = 16 mg/dL 7-23 4572154855) GLUCOSE (test code = 140 mg/dL 70-110 H 4554700477) CREATININE (test code = 0.59 mg/dL 0.6-1.25 L 7057104596) CALCIUM (test code = 8.4 mg/dL 8.6-10.6 L 8841570899) eGFR (test code = mL/min/1.73m2 9495317148) ROSLYN (test code = ROSLYN) Association of [...] tests). Lab Interpretation Abnormal (test code = 47948-6) [facility] Test Item Value Reference Range Interpretation Comments MAGNESIUM (test code = 7675025934) 2.1 mg/dL 1.7-2.4 Lab Interpretation (test code = Normal 06697-8) [facility] METABOLIC PANEL (NA, K, CL, CO2, GLUCOSE, BUN, CREATININE, CA)2022-07-24 23:06:12 Test Item Value Reference Range Interpretation Comments NA (test code = 135 mmol/L 135-145 6023232185) K (test code = 4.1 mmol/L 3.5-5 2251539605) CL (test code = 95 mmol/L 98-108 L 8965024347) CO2 TOTAL (test code = 39 mmol/L 23-31 H 8286540447) AGAP (test code = 2-16 L 3955961766) BUN (test code = 16 mg/dL 7-23 9334522282) GLUCOSE (test code = 140 mg/dL 70-110 H 9681177214) CREATININE (test code = 0.59 mg/dL 0.6-1.25 L 3444786453) CALCIUM (test code = 8.4 mg/dL 8.6-10.6 L 7238130129) eGFR (test code = mL/min/1.73m2 2773942108) ROSLYN (test code = ROSLYN) Association of [...] tests). Lab Interpretation Abnormal (test code = 08430-9) [facility] Test Item Value Reference Range Interpretation Comments MAGNESIUM (test code = 4859515220) 2.1 mg/dL 1.7-2.4 Lab Interpretation (test code = Normal 54688-8) [facility] (for use with Heparin Infusion)2022-07-24 23:00:29 Test Item Value Reference Range Interpretation Comments APTT Patient (test code See_Comment H [Au tomated message] = 3173-2) The system [employer] generated this result transmitted ref erence range: 26 - 36 Seconds. The reference range was not used to int erpret this result as normal/abnormal . Lab Interpretation (test Abnormal code = 26646-4) [facility] (for use with Heparin Infusion)2022-07-24 23:00:29 Test Item Value Reference Range Interpretation Comments APTT Patient (test code See_Comment H [Au tomated message] = 3173-2) The system [employer] generated this result transmitted ref erence range: 26 - 36 Seconds. The reference range was not used to int erpret this result as normal/abnormal . Lab Interpretation (test Abnormal code = 39632-0) [facility] acute hospital GLUCOSE (AUTOMATED)2022-07-24 20:44:06 Test Item Value Reference Range Interpretation Comments POCT GLU (test code = 7004922642) 161 mg/dL 70-110 H Lab Interpretation (test code = Abnormal 21536-6) [facility] acute hospital GLUCOSE (AUTOMATED)2022-07-24 20:44:06 Test Item Value Reference Range Interpretation Comments POCT GLU (test code = 9636141678) 161 mg/dL 70-110 H Lab Interpretation (test code = Abnormal 22219-0) [facility] acute hospital GLUCOSE (AUTOMATED)2022-07-24 17:17:45 Test Item Value Reference Range Interpretation Comments POCT GLU (test code = 6369660604) 257 mg/dL 70-110 H Lab Interpretation (test code = Abnormal 37724-9) [facility] acute hospital GLUCOSE (AUTOMATED)2022-07-24 17:17:45 Test Item Value Reference Range Interpretation Comments POCT GLU (test code = 6646857932) 257 mg/dL 70-110 H Lab Interpretation (test code = Abnormal 96279-1) [facility] acute hospital GLUCOSE (AUTOMATED)2022-07-24 14:12:13 Test Item Value Reference Range Interpretation Comments POCT GLU (test code = 5827474072) 201 mg/dL 70-110 H Lab Interpretation (test code = Abnormal 76817-8) [facility] acute hospital GLUCOSE (AUTOMATED)2022-07-24 14:12:13 Test Item Value Reference Range Interpretation Comments POCT GLU (test code = 5189182593) 201 mg/dL 70-110 H Lab Interpretation (test code = Abnormal 59157-0) [facility] acute hospital GLUCOSE (AUTOMATED)2022-07-24 01:57:51 Test Item Value Reference Range Interpretation Comments POCT GLU (test code = 0070686995) 214 mg/dL 70-110 H Lab Interpretation (test code = Abnormal 00255-0) [facility] acute hospital GLUCOSE (AUTOMATED)2022-07-24 01:57:51 Test Item Value Reference Range Interpretation Comments POCT GLU (test code = 9263638565) 214 mg/dL 70-110 H Lab Interpretation (test code = Abnormal 89406-3) [facility] acute hospital GLUCOSE (AUTOMATED)2022-07-23 21:55:56 Test Item Value Reference Range Interpretation Comments POCT GLU (test code = 6071673041) 184 mg/dL 70-110 H Lab Interpretation (test code = Abnormal 42933-3) [facility] acute hospital GLUCOSE (AUTOMATED)2022-07-23 21:55:56 Test Item Value Reference Range Interpretation Comments POCT GLU (test code = 7762946958) 184 mg/dL 70-110 H Lab Interpretation (test code = Abnormal 40684-0) [facility] acute hospital GLUCOSE (AUTOMATED)2022-07-23 17:27:48 Test Item Value Reference Range Interpretation Comments POCT GLU (test code = 5869997914) 259 mg/dL 70-110 H Lab Interpretation (test code = Abnormal 02072-0) [facility] acute hospital GLUCOSE (AUTOMATED)2022-07-23 17:27:48 Test Item Value Reference Range Interpretation Comments POCT GLU (test code = 6447908243) 259 mg/dL 70-110 H Lab Interpretation (test code = Abnormal 62776-6) [facility] acute hospital GLUCOSE (AUTOMATED)2022-07-23 13:05:59 Test Item Value Reference Range Interpretation Comments POCT GLU (test code = 4537438638) 154 mg/dL 70-110 H Lab Interpretation (test code = Abnormal 98098-7) General acute hospital GLUCOSE (AUTOMATED)2022-07-23 13:05:59 Test Item Value Reference Range Interpretation Comments POCT GLU (test code = 8835514145) 154 mg/dL 70-110 H Lab Interpretation (test code = Abnormal 13285-3) General acute hospital GLUCOSE (AUTOMATED)2022-07-23 09:58:20 Test Item Value Reference Range Interpretation Comments POCT GLU (test code = 0327939831) 177 mg/dL 70-110 H Lab Interpretation (test code = Abnormal 09521-9) General acute hospital GLUCOSE (AUTOMATED)2022-07-23 09:58:20 Test Item Value Reference Range Interpretation Comments POCT GLU (test code = 6583331339) 177 mg/dL 70-110 H Lab Interpretation (test code = Abnormal 76994-7) General acute hospital GLUCOSE (AUTOMATED)2022-07-22 21:30:57 Test Item Value Reference Range Interpretation Comments POCT GLU (test code = 8260988309) 194 mg/dL 70-110 H Lab Interpretation (test code = Abnormal 75763-8) General acute hospital GLUCOSE (AUTOMATED)2022-07-22 21:30:57 Test Item Value Reference Range Interpretation Comments POCT GLU (test code = 3670615816) 194 mg/dL 70-110 H Lab Interpretation (test code = Abnormal 91107-3) General acute hospital GLUCOSE (AUTOMATED)2022-07-22 16:52:50 Test Item Value Reference Range Interpretation Comments POCT GLU (test code = 6617050424) 197 mg/dL 70-110 H Lab Interpretation (test code = Abnormal 57688-6) General acute hospital GLUCOSE (AUTOMATED)2022-07-22 16:52:50 Test Item Value Reference Range Interpretation Comments POCT GLU (test code = 6071916309) 197 mg/dL 70-110 H Lab Interpretation (test code = Abnormal 35805-7) General acute hospital GLUCOSE (AUTOMATED)2022-07-22 13:22:34 Test Item Value Reference Range Interpretation Comments POCT GLU (test code = 4384325411) 150 mg/dL 70-110 H Lab Interpretation (test code = Abnormal 53989-2) General acute hospital GLUCOSE (AUTOMATED)2022-07-22 13:22:34 Test Item Value Reference Range Interpretation Comments POCT GLU (test code = 9974803073) 150 mg/dL 70-110 H Lab Interpretation (test code = Abnormal 11071-4) [id number] 09:38:27 Test Item Value Reference Range Interpretation Comments NT-proBNP (test code 2160 pg/mL See_Comment H [Autom ated = 7574478491) message] The system which generated this result transmitted reference range : <=125. The reference range was not used to interpret this result as normal/abnormal . ROSLYN (test code = ROSLYN) Biotin has been reported to cause a negative bias, interpret results relative to patient's use of biotin. Lab Interpretation Abnormal (test code = 28180-6) [id number] 09:38:27 Test Item Value Reference Range Interpretation Comments NT-proBNP (test code 2160 pg/mL See_Comment H [Autom ated = 2449386865) message] The system which generated this result transmitted reference range : <=125. The reference range was not used to interpret this result as normal/abnormal . ROSLYN (test code = ROSLYN) Biotin has been reported to cause a negative bias, interpret results relative to patient's use of biotin. Lab Interpretation Abnormal (test code = 98757-9) [facility]2022-09-12 09:31:29 Test Item Value Reference Range Interpretation Comments MAGNESIUM (test code = 0719982810) 1.8 mg/dL 1.7-2.4 Lab Interpretation (test code = Normal 79755-0) [facility]2022-09-12 09:31:29 Test Item Value Reference Range Interpretation Comments MAGNESIUM (test code = 0730814374) 1.8 mg/dL 1.7-2.4 Lab Interpretation (test code = Normal 92621-0) [facility] METABOLIC PANEL (NA, K, CL, CO2, GLUCOSE, BUN, CREATININE, CA)2022-07-22 09:31:09 Test Item Value Reference Range Interpretation Comments NA (test code = 137 mmol/L 135-145 0601839401) K (test code = 4.0 mmol/L 3.5-5 0874704231) CL (test code = 98 mmol/L 98-108 4242354950) CO2 TOTAL (test code = 34 mmol/L 23-31 H 5478813564) AGAP (test code = 2-16 1385512118) BUN (test code = 16 mg/dL 7-23 6532907608) GLUCOSE (test code = 177 mg/dL 70-110 H 9369172728) CREATININE (test code = 0.66 mg/dL 0.6-1.25 2606784287) CALCIUM (test code = 8.2 mg/dL 8.6-10.6 L 2314722639) eGFR (test code = mL/min/1.73m2 9646658688) ROSLYN (test code = ROSLYN) Association of [...] tests). Lab Interpretation Abnormal (test code = 88043-9) [facility] (NA, K, CL, CO2, GLUCOSE, BUN, CREATININE, CA)2022-07-22 09:31:09 Test Item Value Reference Range Interpretation Comments NA (test code = 137 mmol/L 135-145 3665751501) K (test code = 4.0 mmol/L 3.5-5 1681946280) CL (test code = 98 mmol/L 98-108 4276568365) CO2 TOTAL (test code = 34 mmol/L 23-31 H 3759185992) AGAP (test code = 2-16 5695748854) BUN (test code = 16 mg/dL 7-23 9176189342) GLUCOSE (test code = 177 mg/dL 70-110 H 2999043705) CREATININE (test code = 0.66 mg/dL 0.6-1.25 6956315055) CALCIUM (test code = 8.2 mg/dL 8.6-10.6 L 8297973018) eGFR (test code = mL/min/1.73m2 3270500793) ROSLYN (test code = ROSLYN) Association of [...] tests). Lab Interpretation Abnormal (test code = 91483-0) [facility] (ALB,T.PRO,BILI T,BU/BC,ALT,AST,ALK PHOS)2022-07-22 09:30:44 Test Item Value Reference Range Interpretation Comments TOTAL BILI (test code = 5740993151) 1.2 mg/dL 0.1-1.1 H BILI UNCON (test code = 8141611023) 0.9 mg/dL 0.1-1.1 BILI CONJ (test code = 4963948129) 0.0 mg/dL 0-0.3 T PROTEIN (test code = 8501825216) 6.5 g/dL 6.3-8.2 ALBUMIN (test code = 3975276549) 3.7 g/dL 3.5-5 ALK PHOS (test code = 3706941671) 67 U/L 34-122 ALTv (test code = 1742-6) 33 U/L 5-50 AST(SGOT) (test code = 4881598448) 30 U/L 13-40 Lab Interpretation (test code = Abnormal 14098-1) [facility] 09:30[facility]44 Test Item Value Reference Range Interpretation Comments PHOSPHORUS (test code = 8723540948) 3.6 mg/dL 2.5-5 Lab Interpretation (test code = Normal 61935-5) [facility]25[facility] (ALB,T.PRO,BILI T,BU/BC,ALT,AST,ALK PHOS)2022-07-22 09:30:44 Test Item Value Reference Range Interpretation Comments TOTAL BILI (test code = 7298351019) 1.2 mg/dL 0.1-1.1 H BILI UNCON (test code = 8224116961) 0.9 mg/dL 0.1-1.1 BILI CONJ (test code = 9519465871) 0.0 mg/dL 0-0.3 T PROTEIN (test code = 2098642066) 6.5 g/dL 6.3-8.2 ALBUMIN (test code = 0638420421) 3.7 g/dL 3.5-5 ALK PHOS (test code = 1512883282) 67 U/L 34-122 ALTv (test code = 1742-6) 33 U/L 5-50 AST(SGOT) (test code = 7217135813) 30 U/L 13-40 Lab Interpretation (test code = Abnormal 17350-5) [facility] 09:30:44 Test Item Value Reference Range Interpretation Comments PHOSPHORUS (test code = 9226344135) 3.6 mg/dL 2.5-5 Lab Interpretation (test code = Normal 14233-2) [facility] [id number] 09:23:08 Test Item Value Reference Range Interpretation Comments WBC (test code = See_Comment H [Automated 6756-2) message] The system which generated this result transmit artem reference range : 4.20 - 10.70 10*3/?L. The reference range was not used to interpret this result as normal/abnormal . RBC (test code = See_Comment [Automated 661-8) message] The system which generated this result [...] RDW-SD (test code = 46.6 fL 38.5-51.6 10998-0) RDW-CV (test code = 13.5 % 12.1-15.4 788-0) PLT (test code = See_Comment L [Automated 777-3) message] The system which generated this result transmit artem reference range : 150 - 328 10*3/ ?L. The reference range was not u sed to interpret th is result as normal/abnormal . MPV (test code = 12.7 fL 9.8-13 58054-3) NRBC/100 WBC (test See_Comment [Automat ed code = 2201229662) message] The system which generated this result transmit artem reference range : 0.0 - 10.0 /100 WBCs. The reference range was not used to interpret this result as normal/abnormal . NRBC x10^3 (test code See_Comment [Auto mated = 9232630644) message] The system which generated this result transmit artem reference range : 10*3/?L. The reference range was not used to interpret this result as normal/abnormal . GRAN MAT (NEUT) % 71.3 % (test code = 770-8) IMM GRAN % (test code 0.40 % = 6550482649) LYMPH % (test code = 17.4 % 736-9) MONO % (test code = 9.8 % 5905-5) EOS % (test code = 0.8 % 713-8) BASO % (test code = 0.3 % 706-2) GRAN MAT x10^3(ANC) 10.18 10*3/uL 1.99-6.95 H (test code = 3518523221) IMM GRAN x10^3 (test 0.06 10*3/uL 0-0.06 code = 6032716963) LYMPH x10^3 (test code 2.49 10*3/uL 1.09-3.23 = 731-0) MONO x10^3 (test code 1.40 10*3/uL 0.36-1.02 H = 742-7) EOS x10^3 (test code = 0.11 10*3/uL 0.06-0.53 711-2) BASO x10^3 (test code 0.04 10*3/uL 0.01-0.09 = 704-7) Lab Interpretation Abnormal (test code = 53911-3) [facility] WITH [id number] 09:23:08 Test Item Value Reference Range Interpretation [...] RDW-SD (test code = 46.6 fL 38.5-51.6 78220-0) RDW-CV (test code = 13.5 % 12.1-15.4 788-0) PLT (test code = See_Comment L [Automated 777-3) message] The system which generated this result transmit artem reference range : 150 - 328 10*3/ ?L. The reference range was not u sed to interpret th is result as normal/abnormal . MPV (test code = 12.7 fL 9.8-13 26761-4) NRBC/100 WBC (test See_Comment [Automat ed code = 3762539080) message] The system which generated this result transmit artem reference range : 0.0 - 10.0 /100 WBCs. The reference range was not used to interpret this result as normal/abnormal . NRBC x10^3 (test code See_Comment [Auto mated = 3755895522) message] The system which generated this result transmit artem reference range : 10*3/?L. The reference range was not used to interpret this result as normal/abnormal . GRAN MAT (NEUT) % 71.3 % (test code = 770-8) IMM GRAN % (test code 0.40 % = 7864340926) LYMPH % (test code = 17.4 % 736-9) MONO % (test code = 9.8 % 5905-5) EOS % (test code = 0.8 % 713-8) BASO % (test code = 0.3 % 706-2) GRAN MAT x10^3(ANC) 10.18 10*3/uL 1.99-6.95 H (test code = 9015354126) IMM GRAN x10^3 (test 0.06 10*3/uL 0-0.06 code = 4659130338) LYMPH x10^3 (test code 2.49 10*3/uL 1.09-3.23 = 731-0) MONO x10^3 (test code 1.40 10*3/uL 0.36-1.02 H = 742-7) EOS x10^3 (test code = 0.11 10*3/uL 0.06-0.53 711-2) BASO x10^3 (test code 0.04 10*3/uL 0.01-0.09 = 704-7) Lab Interpretation Abnormal (test code = 17862-4) [facility] GLU[facility]SE (AUTOMATED)2022-07-22 01:47:13 Test Item Value Reference Range Interpretation Comments POCT GLU (test code = 1355521651) 220 mg/dL 70-110 H Lab Interpretation (test code = Abnormal 03225-0) General acute hospital GLUCOSE (AUTOMATED)2022-07-22 01:47:13 Test Item Value Reference Range Interpretation Comments POCT GLU (test code = 9137012253) 220 mg/dL 70-110 H Lab Interpretation (test code = Abnormal 11103-4) [facility]TOTAL CHOLESTEROL, TRIGLYCERIDES, HDL)2022-07-22 00:19:28 Test Item Value Reference Range Interpretation Comments CHOL (test code = 121 mg/dL 120-200 8766456129) HDL (test code = 28 mg/dL See_Comment L [Automated message] 1612523602) The system [employer] generated this result transmit artem reference range : >=40. The refer ence range was not u sed to interpret th is result as normal/abnormal . HDLC RATIO (test code = See_Comment [Au tomated message] 8578972171) The system [employer] generated this result transmit artem reference range : <=5.0. The refe rence range was not u sed to interpret th is result as normal/abnormal . TRIG (test code = 119 mg/dL 30-170 8687795769) LDL CHOL (test code = 69 mg/dL See_Comment [Auto mated message] 17550-3) The system [employer] generated this result transmit artem reference range : <=160. The refe rence range was not u sed to interpret th is result as normal/abnormal . VLDL (test code = 24 mg/dL 5-60 0921539649) Lab Interpretation (test Abnormal code = 24442-7) [facility]TOTAL CHOLESTEROL, TRIGLYCERIDES, HDL)2022-07-22 00:19:28 Test Item Value Reference Range Interpretation Comments CHOL (test code = 121 mg/dL 120-200 7770719626) HDL (test code = 28 mg/dL See_Comment L [Automated message] 5872301476) The system [employer] generated this result transmit artem reference range : >=40. The refer ence range was not u sed to interpret th is result as normal/abnormal . HDLC RATIO (test code = See_Comment [Au tomated message] 9010997320) The system Son[employer] generated this result transmit artem reference range : <=5.0. The refe rence range was not u sed to interpret th is result as normal/abnormal . TRIG (test code = 119 mg/dL 30-170 0591171906) LDL CHOL (test code = 69 mg/dL See_Comment [Auto mated message] 66458-8) The system Son[employer] generated this result transmit artem reference range : <=160. The refe rence range was not u sed to interpret th is result as normal/abnormal . VLDL (test code = 24 mg/dL 5-60 9573780663) Lab Interpretation (test Abnormal code = 30869-3) [facility] 00:00:55 Test Item Value Reference Range Interpretation Comments Height (test code = in 4616595168) Weight (test code = lbs 9233666000) Systolic BP (test code = mmHg 0633748615) Diastolic BP (test code mmHg = 6269835881) Heart Rate (test code = bpm 1619438799) BSA (test code = 2.04 m2 0127619778) Ao root annulus (test 3.5 cm code = 3327232823) Ao root diam (test code 3.50 cm = 8822004704) Aortic root (test code = 3.5 cm 2213959296) LVOT diameter (test code 2.19 cm = 5778249307) LVOT area (test code = 3.80 cm2 2938865553) LVIDD (test code = 5.30 cm 5927186835) Left Ventricular End 135.3 mL Diastolic Volume by Teichholz Method (test code = 1574081) IVS (test code = 1.26 cm 0658994793) Interventricular Septum 1.26 cm Diastolic Thickness by 2D (test code = 6518865) LVPWD (test code = 1.26 cm 9017514962) PW (test code = 1.26 cm 0.6-1.4 4759058259) EF(Teich) (test code = 16.40 % 5438395556) LVIDS (test code = 4.90 cm 5147241041) Left Ventricular End 113.1 mL Systolic Volume by Teichholz Method (test code = 5572444) FS (test code = 7 % 0389007232) EF - 2D (test code = 16.40 % 75641293) LA size (test code = 4.3 cm 6103560632) TR Peak Antonina (test code = 249.6 cm/s 9305864630) Triscuspid Valve mmHg Regurgitation Peak Gradient (test code = 5368546624) LAV(MOD-sp4) (test code 79.00 mL = 8535147642) E wave decelartion time 0.13 s (test code = 4741456566) MV Peak E Antonina (test code 82.3 cm/s = 2868662448) MV stenosis pressure 1/2 38.8 ms time (test code = 4423886953) MV Peak A Antonina (test code 40.8 cm/s = 8041010972) E/A ratio (test code = ratio 4685749613) MR max PG (test code = 61.50 mm[Hg] 7937610396) MR max antonina (test code = 392.20 cm/s 4669651801) Mr max antonina (test code = 392.2 m/s 9168442192) MV Prop V (test code = 33.40 cm/s 2347058435) MV E/e' septal (test 12.6 cm/s code = 4577678032) Tapse (test code = 1.17 cm 1071915423) LVOT stroke volume (test 52.20 cm3 code = 7575010712) LVOT peak antonina (test code 86.4 cm/s = 9638332021) LVOT mn grad (test code mmHg = 6145814212) AV LVOT peak gradient mmHg (test code = 0208339553) LVOT peak VTI (test code 13.9 cm = 1871399166) LV V1 mean (test code = 57.20 cm/s 2032426024) Aortic valve mean 94.3 cm/s velocity (test code = 5409915983) Ao peak antonina (test code = 125.8 cm/s 6436510009) Ao VTI (test code = 22.6 cm 5031019751) AV area by cont VTI 2.3 cm2 (test code = 2963878315) AV area peak antonina (test 2.6 cm2 code = 1053084969) Ao max PG (test code = 6.30 mm[Hg] 8853745665) AV peak gradient (test mmHg code = 3232612323) AV valve area (test code 2.31 cm2 = 1984584097) AV mean gradient (test mmHg code = 8635117257) Radiology Study observation (narrative) (test code = 31592-0) ROSLYN (test code = ROSLYN) ?Left?Ventricle: Left [...] mL of Lumason ultrasound enhancing [facility]55 Test Item Value Reference Range Interpretation Comments Height (test code = in 9881946436) Weight (test code = lbs 9416526820) Systolic BP (test code = mmHg 4204235884) Diastolic BP (test code mmHg = 1881335097) Heart Rate (test code = bpm 7210323043) BSA (test code = 2.04 m2 6914213686) Ao root annulus (test 3.5 cm code = 2118278378) Ao root diam (test code 3.50 cm = 3140646268) Aortic root (test code = 3.5 cm 3887004119) LVOT diameter (test code 2.19 cm = 3775160857) LVOT area (test code = 3.80 cm2 1309972593) LVIDD (test code = 5.30 cm 7832227659) Left Ventricular End 135.3 mL Diastolic Volume by Teichholz Method (test code = 9112775) IVS (test code = 1.26 cm 6935668642) Interventricular Septum 1.26 cm Diastolic Thickness by 2D (test code = 5181455) LVPWD (test code = 1.26 cm 8643353018) PW (test code = 1.26 cm 0.6-1.0 0212267841) EF(Teich) (test code = 16.40 % 3911376194) LVIDS (test code = 4.90 cm 6385980663) Left Ventricular End 113.1 mL Systolic Volume by Teichholz Method (test code = 7984952) FS (test code = 7 % 2169899110) EF - 2D (test code = 16.40 % 48664741) LA size (test code = 4.3 cm 9289971012) TR Peak Antonina (test code = 249.6 cm/s 7015385490) Triscuspid Valve mmHg Regurgitation Peak Gradient (test code = 5984703682) LAV(MOD-sp4) (test code 79.00 mL = 8427454931) E wave decelartion time 0.13 s (test code = 3946520670) MV Peak E Antonina (test code 82.3 cm/s = 4962208411) MV stenosis pressure 1/2 38.8 ms time (test code = 1209435161) MV Peak A Antonina (test code 40.8 cm/s = 1143803296) E/A ratio (test code = ratio 7362599621) MR max PG (test code = 61.50 mm[Hg] 0164429303) MR max antonina (test code = 392.20 cm/s 9867576649) Mr max antonina (test code = 392.2 m/s 7522113184) MV Prop V (test code = 33.40 cm/s 3757151493) MV E/e' septal (test 12.6 cm/s code = 6160774767) Tapse (test code = 1.17 cm 5668507181) LVOT stroke volume (test 52.20 cm3 code = 1919796232) LVOT peak antonina (test code 86.4 cm/s = 4850215861) LVOT mn grad (test code mmHg = 6354413615) AV LVOT peak gradient mmHg (test code = 3396790652) LVOT peak VTI (test code 13.9 cm = 0287619635) LV V1 mean (test code = 57.20 cm/s 8022478695) Aortic valve mean 94.3 cm/s velocity (test code = 1270517976) Ao peak antonina (test code = 125.8 cm/s 3125966277) Ao VTI (test code = 22.6 cm 0964465525) AV area by cont VTI 2.3 cm2 (test code = 2218545258) AV area peak antonina (test 2.6 cm2 code = 3418068685) Ao max PG (test code = 6.30 mm[Hg] 0841262558) AV peak gradient (test mmHg code = 7845056520) AV valve area (test code 2.31 cm2 = 3173039821) AV mean gradient (test mmHg code = 7302083103) Radiology Study observation (narrative) (test code = 59171-4) ROSLYN (test code = ROSLYN) ?Left?Ventricle: Left [...] mL of Lumason ultrasound enhancing agent used. [facility] GLU[facility]SE (AUTOMATED)2022-07-21 21:54:48 Test Item Value Reference Range Interpretation Comments POCT GLU (test code = 5563437652) 161 mg/dL 70-110 H Lab Interpretation (test code = Abnormal 11065-4) [facility] acute hospital GLUCOSE (AUTOMATED)2022-07-21 21:54:48 Test Item Value Reference Range Interpretation Comments POCT GLU (test code = 6126060953) 161 mg/dL 70-110 H Lab Interpretation (test code = Abnormal 30674-0) [facility] acute hospital GLUCOSE (AUTOMATED)2022-07-21 16:47:05 Test Item Value Reference Range Interpretation Comments POCT GLU (test code = 0212367147) 132 mg/dL 70-110 H Lab Interpretation (test code = Abnormal 36495-0) [facility] acute hospital GLUCOSE (AUTOMATED)2022-07-21 16:47:05 Test Item Value Reference Range Interpretation Comments POCT GLU (test code = 6040339699) 132 mg/dL 70-110 H Lab Interpretation (test code = Abnormal 18603-2) [facility] acute hospital GLUCOSE (AUTOMATED)2022-07-21 15:03:01 Test Item Value Reference Range Interpretation Comments POCT GLU (test code = 9932470801) 182 mg/dL 70-110 H Lab Interpretation (test code = Abnormal 18392-0) [facility] acute hospital GLUCOSE (AUTOMATED)2022-07-21 15:03:01 Test Item Value Reference Range Interpretation Comments POCT GLU (test code = 8670676721) 182 mg/dL 70-110 H Lab Interpretation (test code = Abnormal 14962-0) [facility] with Ayajspwetsna8789-97-83 14:58:14 Test Item Value Reference Range Interpretation [...] RDW-SD (test code = 46.4 fL 38.5-51.6 18200-7) RDW-CV (test code = 13.5 % 12.1-15.4 788-0) PLT (test code = See_Comment [Automated 777-3) message] The system which generated this result transmit artem reference range : 150 - 328 10*3/ ?L. The reference range was not u sed to interpret th is result as normal/abnormal . MPV (test code = 13.0 fL 9.8-13 80348-4) NRBC/100 WBC (test See_Comment [Automat ed code = 2573030148) message] The system which generated this result transmit artem reference range : 0.0 - 10.0 /100 WBCs. The reference range was not used to interpret this result as normal/abnormal . NRBC x10^3 (test code See_Comment [Auto mated = 0723708657) message] The system which generated this result transmit artem reference range : 10*3/?L. The reference range was not used to interpret this result as normal/abnormal . GRAN MAT (NEUT) % 71.1 % (test code = 770-8) IMM GRAN % (test code 0.40 % = 5779691095) LYMPH % (test code = 17.6 % 736-9) MONO % (test code = 10.3 % 5905-5) EOS % (test code = 0.3 % 713-8) BASO % (test code = 0.3 % 706-2) GRAN MAT x10^3(ANC) 10.55 10*3/uL 1.99-6.95 H (test code = 6318450240) IMM GRAN x10^3 (test 0.06 10*3/uL 0-0.06 code = 7955502710) LYMPH x10^3 (test code 2.61 10*3/uL 1.09-3.23 = 731-0) MONO x10^3 (test code 1.53 10*3/uL 0.36-1.02 H = 742-7) EOS x10^3 (test code = 0.04 10*3/uL 0.06-0.53 L 711-2) BASO x10^3 (test code 0.04 10*3/uL 0.01-0.09 = 704-7) BANDS (test code = Increased A 2336487807) REACT LYMPHS (test Rare code = 1545250421) GIANT PLATELETS (test Present See_Comment A [Auto mated code = 5908-9) message] The system which generated this result transmit artem reference range : (none). The reference range was not used to interpret this result as normal/abnormal . Lab Interpretation Abnormal (test code = 61683-0) [facility] with Bnzcbuaszpyu7278-87-52 14:58:14 Test Item Value Reference Range Interpretation Comments WBC (test code = See_Comment H [Automated 2200-2) message] The system which generated this result transmit artem reference range : 4.20 - 10.70 10*3/?L. The reference range was not used to interpret this result as normal/abnormal . RBC (test code = See_Comment [Automated 033-8) message] The system which generated this result [...] RDW-SD (test code = 46.4 fL 38.5-51.6 36560-9) RDW-CV (test code = 13.5 % 12.1-15.4 788-0) PLT (test code = See_Comment [Automated 777-3) message] The system which generated this result transmit artem reference range : 150 - 328 10*3/ ?L. The reference range was not u sed to interpret th is result as normal/abnormal . MPV (test code = 13.0 fL 9.8-13 02165-7) NRBC/100 WBC (test See_Comment [Automat ed code = 7436105274) message] The system which generated this result transmit artem reference range : 0.0 - 10.0 /100 WBCs. The reference range was not used to interpret this result as normal/abnormal . NRBC x10^3 (test code See_Comment [Auto mated = 2334636935) message] The system which generated this result transmit artem reference range : 10*3/?L. The reference range was not used to interpret this result as normal/abnormal . GRAN MAT (NEUT) % 71.1 % (test code = 770-8) IMM GRAN % (test code 0.40 % = 3066195526) LYMPH % (test code = 17.6 % 736-9) MONO % (test code = 10.3 % 5905-5) EOS % (test code = 0.3 % 713-8) BASO % (test code = 0.3 % 706-2) GRAN MAT x10^3(ANC) 10.55 10*3/uL 1.99-6.95 H (test code = 0966339866) IMM GRAN x10^3 (test 0.06 10*3/uL 0-0.06 code = 9968841079) LYMPH x10^3 (test code 2.61 10*3/uL 1.09-3.23 = 731-0) MONO x10^3 (test code 1.53 10*3/uL 0.36-1.02 H = 742-7) EOS x10^3 (test code = 0.04 10*3/uL 0.06-0.53 L 711-2) BASO x10^3 (test code 0.04 10*3/uL 0.01-0.09 = 704-7) BANDS (test code = Increased A 4598076989) REACT LYMPHS (test Rare code = 7343911046) GIANT PLATELETS (test Present See_Comment A [Auto mated code = 5908-9) message] The system which generated this result transmit artem reference range : (none). The reference range was not used to interpret this result as normal/abnormal . Lab Interpretation Abnormal (test code = 07270-8) [facility] acute hospital GLUCOSE (AUTOMATED)2022-07-21 13:20:46 Test Item Value Reference Range Interpretation Comments POCT GLU (test code = 3698965993) 148 mg/dL 70-110 H Lab Interpretation (test code = Abnormal 17213-5) General acute hospital GLUCOSE (AUTOMATED)2022-07-21 13:20:46 Test Item Value Reference Range Interpretation Comments POCT GLU (test code = 7843105245) 148 mg/dL 70-110 H Lab Interpretation (test code = Abnormal 11984-7) [facility] Metabolic Panel (NA, K, CL, CO2, GLUCOSE, BUN, CREATININE, CA)2022-07-21 13:17:35 Test Item Value Reference Range Interpretation Comments NA (test code = 134 mmol/L 135-145 L 3728576573) K (test code = 4.1 mmol/L 3.5-5 0631174012) CL (test code = 99 mmol/L 98-108 1864451626) CO2 TOTAL (test code = 32 mmol/L 23-31 H 4119546977) AGAP (test code = 2-16 7939643348) BUN (test code = 17 mg/dL 7-23 9314291077) GLUCOSE (test code = 186 mg/dL 70-110 H 5613078348) CREATININE (test code = 0.65 mg/dL 0.6-1.25 4476649774) CALCIUM (test code = 8.2 mg/dL 8.6-10.6 L 4501660994) eGFR (test code = mL/min/1.73m2 5170371310) ROSLYN (test code = ROSLYN) Association of [...] tests). Lab Interpretation Abnormal (test code = 76302-2) [facility] Metabolic Panel (NA, K, CL, CO2, GLUCOSE, BUN, CREATININE, CA)2022-07-21 13:17:35 Test Item Value Reference Range Interpretation Comments NA (test code = 134 mmol/L 135-145 L 9747258942) K (test code = 4.1 mmol/L 3.5-5 0043953708) CL (test code = 99 mmol/L 98-108 5715388916) CO2 TOTAL (test code = 32 mmol/L 23-31 H 9061497154) AGAP (test code = 2-16 9673933908) BUN (test code = 17 mg/dL 7-23 4231634729) GLUCOSE (test code = 186 mg/dL 70-110 H 1805097854) CREATININE (test code = 0.65 mg/dL 0.6-1.25 3117860069) CALCIUM (test code = 8.2 mg/dL 8.6-10.6 L 9146026472) eGFR (test code = mL/min/1.73m2 7987594174) ROSLYN (test code = ROSLYN) Association of [...] tests). Lab Interpretation Abnormal (test code = 93460-9) [id number] 12:[facility] Test Item Value Reference Interpretation Comments Range TROPONIN I (test 0.032 ng/mL See_Comment [Automated code = 0635011485) message] The system which generated this result [...] biotin. Lab Interpretation Normal (test code = 99182-0) [facility] [id number] 12:35:48 Test Item Value Reference Interpretation Comments Range TROPONIN I (test 0.032 ng/mL See_Comment [Automated code = 3260905686) message] The system which generated this result [...] biotin. Lab Interpretation Normal (test code = 98723-1) [facility] [id number] 12:32:47 Test Item Value Reference Range Interpretation Comments NT-proBNP (test code 3830 pg/mL See_Comment H [Autom ated = 9950531806) message] The system which generated this result transmitted reference range : <=125. The reference range was not used to interpret this result as normal/abnormal . ROSLYN (test code = ROSLYN) Biotin has been reported to cause a negative bias, interpret results relative to patient's use of biotin. Lab Interpretation Abnormal (test code = 39230-9) [id number] 12:32:47 Test Item Value Reference Range Interpretation Comments NT-proBNP (test code 3830 pg/mL See_Comment H [Autom ated = 0502638935) message] The system which generated this result transmitted reference range : <=125. The reference range was not used to interpret this result as normal/abnormal . ROSLYN (test code = ROSLYN) Biotin has been reported to cause a negative bias, interpret results relative to patient's use of biotin. Lab Interpretation Abnormal (test code = 11242-8) [facility] [id number] 12:24:10 Test Item Value Reference Range Interpretation Comments MAGNESIUM (test code = 7981051341) 1.8 mg/dL 1.7-2.4 Lab Interpretation (test code = Normal 31897-1) [facility] [id number] 12:24:10 Test Item Value Reference Range Interpretation Comments MAGNESIUM (test code = 9395568980) 1.8 mg/dL 1.7-2.4 Lab Interpretation (test code = Normal 77055-0) [facility] acute hospital GLUCOSE (AUTOMATED)2022-07-21 04:19:16 Test Item Value Reference Range Interpretation Comments POCT GLU (test code = 9929246459) 169 mg/dL 70-110 H Lab Interpretation (test code = Abnormal 62821-8) [facility] acute hospital GLUCOSE (AUTOMATED)2022-07-21 04:19:16 Test Item Value Reference Range Interpretation Comments POCT GLU (test code = 2819337411) 169 mg/dL 70-110 H Lab Interpretation (test code = Abnormal 02521-3) [facility] acute hospital GLUCOSE (AUTOMATED)2022-07-21 02:03:28 Test Item Value Reference Range Interpretation Comments POCT GLU (test code = 5690191288) 242 mg/dL 70-110 H Lab Interpretation (test code = Abnormal 60908-6) [facility] acute hospital GLUCOSE (AUTOMATED)2022-07-21 02:03:28 Test Item Value Reference Range Interpretation Comments POCT GLU (test code = 1187486565) 242 mg/dL 70-110 H Lab Interpretation (test code = Abnormal 74601-4) [facility] 00:46:20 Test Item Value Reference Range Interpretation Comments HGB A1C (test code = 11.1 % 4-5.7 H 4548-4) ROSLYN (test code = ROSLYN) Reference RangesNormal: <5.7%Prediabetes: 5.7 - 6.4%Diabetes: > 6.5% Lab Interpretation (test Abnormal code = 18075-0) [facility] 00:46:20 Test Item Value Reference Range Interpretation Comments HGB A1C (test code = 11.1 % 4-5.7 H 4548-4) ROSLYN (test code = ROSLYN) Reference RangesNormal: <5.7%Prediabetes: 5.7 - 6.4%Diabetes: > 6.5% Lab Interpretation (test Abnormal code = 61954-0) [facility] acute hospital GLUCOSE (AUTOMATED)2022-07-20 22:27:55 Test Item Value Reference Range Interpretation Comments POCT GLU (test code = 7566921385) 234 mg/dL 70-110 H Lab Interpretation (test code = Abnormal 07234-9) [facility] acute hospital GLUCOSE (AUTOMATED)2022-07-20 22:27:55 Test Item Value Reference Range Interpretation Comments POCT GLU (test code = 4464794402) 234 mg/dL 70-110 H Lab Interpretation (test code = Abnormal 08220-4) [facility] [id number] 17:21:08 Test Item Value Reference Range Interpretation Comments NT-proBNP (test code 3250 pg/mL See_Comment H [Autom ated = 0134575989) message] The system which generated this result transmitted reference range : <=125. The reference range was not used to interpret this result as normal/abnormal . ROSLYN (test code = ROSLYN) Biotin has been reported to cause a negative bias, interpret results relative to patient's use of biotin. Lab Interpretation Abnormal (test code = 64006-3) [facility] [id number] 17:21:08 Test Item Value Reference Range Interpretation Comments NT-proBNP (test code 3250 pg/mL See_Comment H [Autom ated = 5792126985) message] The system which generated this result transmitted reference range : <=125. The reference range was not used to interpret this result as normal/abnormal . ROSLYN (test code = ROSLYN) Biotin has been reported to cause a negative bias, interpret results relative to patient's use of biotin. Lab Interpretation Abnormal (test code = 23053-9) [facility] WITH [id number] 17:16:49 Test Item Value Reference Range Interpretation [...] RDW-SD (test code = 44.7 fL 38.5-51.6 77510-3) RDW-CV (test code = 13.7 % 12.1-15.4 788-0) PLT (test code = See_Comment [Automated 777-3) message] The system which generated this result transmit artem reference range : 150 - 328 10*3/ ?L. The reference range was not u sed to interpret th is result as normal/abnormal . MPV (test code = 12.5 fL 9.8-13 70625-6) NRBC/100 WBC (test See_Comment [Automat ed code = 1519875885) message] The system which generated this result transmit artem reference range : 0.0 - 10.0 /100 WBCs. The reference range was not used to interpret this result as normal/abnormal . NRBC x10^3 (test code See_Comment [Auto mated = 5763590638) message] The system which generated this result transmit artem reference range : 10*3/?L. The reference range was not used to interpret this result as normal/abnormal . GRAN MAT (NEUT) % 76.6 % (test code = 770-8) IMM GRAN % (test code 0.70 % = 3317793512) LYMPH % (test code = 13.8 % 736-9) MONO % (test code = 8.5 % 5905-5) EOS % (test code = 0.1 % 713-8) BASO % (test code = 0.3 % 706-2) GRAN MAT x10^3(ANC) 17.13 10*3/uL 1.99-6.95 H (test code = 2199244439) IMM GRAN x10^3 (test 0.16 10*3/uL 0-0.06 H code = 5845999623) LYMPH x10^3 (test code 3.10 10*3/uL 1.09-3.23 = 731-0) MONO x10^3 (test code 1.91 10*3/uL 0.36-1.02 H = 742-7) EOS x10^3 (test code = 0.06-0.53 L 711-2) BASO x10^3 (test code 0.07 10*3/uL 0.01-0.09 = 704-7) BANDS (test code = Increased A 3708108055) REACT LYMPHS (test Rare code = 9642625388) Lab Interpretation Abnormal (test code = 53003-3) [facility] WITH [id number] 17:16:49 Test Item Value Reference Range Interpretation [...] RDW-SD (test code = 44.7 fL 38.5-51.6 07628-3) RDW-CV (test code = 13.7 % 12.1-15.4 788-0) PLT (test code = See_Comment [Automated 777-3) message] The system which generated this result transmit artem reference range : 150 - 328 10*3/ ?L. The reference range was not u sed to interpret th is result as normal/abnormal . MPV (test code = 12.5 fL 9.8-13 15637-3) NRBC/100 WBC (test See_Comment [Automat ed code = 4515495285) message] The system which generated this result transmit artem reference range : 0.0 - 10.0 /100 WBCs. The reference range was not used to interpret this result as normal/abnormal . NRBC x10^3 (test code See_Comment [Auto mated = 3516515441) message] The system which generated this result transmit artem reference range : 10*3/?L. The reference range was not used to interpret this result as normal/abnormal . GRAN MAT (NEUT) % 76.6 % (test code = 770-8) IMM GRAN % (test code 0.70 % = 1912476436) LYMPH % (test code = 13.8 % 736-9) MONO % (test code = 8.5 % 5905-5) EOS % (test code = 0.1 % 713-8) BASO % (test code = 0.3 % 706-2) GRAN MAT x10^3(ANC) 17.13 10*3/uL 1.99-6.95 H (test code = 3118293344) IMM GRAN x10^3 (test 0.16 10*3/uL 0-0.06 H code = 7492923273) LYMPH x10^3 (test code 3.10 10*3/uL 1.09-3.23 = 731-0) MONO x10^3 (test code 1.91 10*3/uL 0.36-1.02 H = 742-7) EOS x10^3 (test code = 0.06-0.53 L 711-2) BASO x10^3 (test code 0.07 10*3/uL 0.01-0.09 = 704-7) BANDS (test code = Increased A 5359560183) REACT LYMPHS (test Rare code = 0243156640) Lab Interpretation Abnormal (test code = 92022-8) [facility] [id number] 16:42:04 Test Item Value Reference Interpretation Comments Range TROPONIN I (test 0.025 ng/mL See_Comment [Automated code = 6717701823) message] The system which generated this result [...] biotin. Lab Interpretation Normal (test code = 23697-7) [facility] [id number] 16:42:04 Test Item Value Reference Interpretation Comments Range TROPONIN I (test 0.025 ng/mL See_Comment [Automated code = 2626143365) message] The system which generated this result [...] biotin. Lab Interpretation Normal (test code = 77554-5) [facility] Test Item Value Reference Range Interpretation Comments APTT Patient (test See_Comment [Automat ed code = 3173-2) message] The system which generated this result transmitted reference range : 23 - 38 Seconds . The reference range was not used to interpr et this result as normal/abnormal . ROSLYN (test code = ROSLYN) The [facility] patient population mean normal value for aPTT is 30 seconds. Lab Interpretation Normal (test code = 10066-2) [facility] 16:31:19 Test Item Value Reference Range Interpretation Comments APTT Patient (test See_Comment [Automat ed code = 3173-2) message] The system which generated this result transmitted reference range : 23 - 38 Seconds . The reference range was not used to interpr et this result as normal/abnormal . ROSLYN (test code = ROSLYN) The [facility] patient population mean normal value for aPTT is 30 seconds. Lab Interpretation Normal (test code = 35151-2) [facility]. METABOLIC PANEL ([id number])2022-07-20 16:30:19 Test Item Value Reference Range Interpretation Comments NA (test code = 133 mmol/L 135-145 L 7994685936) K (test code = 5.3 mmol/L 3.5-5 H 5420799783) CL (test code = 98 mmol/L 98-108 9175992331) CO2 TOTAL (test code = 27 mmol/L 23-31 9668945113) AGAP (test code = 2-16 9586811479) BUN (test code = 13 mg/dL 7-23 9278244963) GLUCOSE (test code = 273 mg/dL 70-110 H 7910388170) CREATININE (test code = 0.62 mg/dL 0.6-1.25 5218668026) TOTAL BILI (test code = 2.1 mg/dL 0.1-1.1 H 5206227866) CALCIUM (test code = 8.6 mg/dL 8.6-10.6 1285243863) T PROTEIN (test code = 7.3 g/dL 6.3-8.2 3449134192) ALBUMIN (test code = 4.4 g/dL 3.5-5 1921988148) ALK PHOS (test code = 61 U/L 34-122 2628090583) ALTv (test code = 29 U/L 5-50 1742-6) AST(SGOT) (test code = 36 U/L 13-40 9844400777) eGFR (test code = mL/min/1.73m2 5629811217) ROSLYN (test code = ROSLYN) Association of [...] tests). Lab Interpretation Abnormal (test code = 82285-7) [facility]. METABOLIC PANEL (52090)2022-07-20 16:30:19 Test Item Value Reference Range Interpretation Comments NA (test code = 133 mmol/L 135-145 L 9897204403) K (test code = 5.3 mmol/L 3.5-5 H 8067880785) CL (test code = 98 mmol/L 98-108 6880787124) CO2 TOTAL (test code = 27 mmol/L 23-31 6720490007) AGAP (test code = 2-16 1751192490) BUN (test code = 13 mg/dL 7-23 0350637031) GLUCOSE (test code = 273 mg/dL 70-110 H 1606114748) CREATININE (test code = 0.62 mg/dL 0.6-1.25 9204992907) TOTAL BILI (test code = 2.1 mg/dL 0.1-1.1 H 5026670491) CALCIUM (test code = 8.6 mg/dL 8.6-10.6 6747383141) T PROTEIN (test code = 7.3 g/dL 6.3-8.2 3415430898) ALBUMIN (test code = 4.4 g/dL 3.5-5 1021813208) ALK PHOS (test code = 61 U/L 34-122 [id number]) ALTv (test code = 29 U/L 5-50 1742-6) AST(SGOT) (test code = 36 U/L 13-40 5455522288) eGFR (test code = mL/min/1.73m2 [id number]) ROSLYN (test code = ROSLYN) Association of [...] tests). Lab Interpretation Abnormal (test code = 29961-9) [id number] 16:29:23 Test Item Value Reference Range Interpretation Comments PROTIME PATIENT (test See_Comment [Auto mated message] code = 5964-2) The system [employer] generated this result transmitted ref erence range: 12.0 - 1 4.7 Seconds. The re ference range was not u sed to interpret this result as normal/abnor mal. INR (test code = 6301-6) Nor mal INR <1.1; Warfarin Therap eutic range 2.0 to 3. 0 or 2.5 to 3.5, dep ending upon the indica tions. Lab Interpretation (test Normal code = 32626-8) [facility] [id number] 16:29:23 Test Item Value Reference Range Interpretation Comments PROTIME PATIENT (test See_Comment [Auto mated message] code = 5964-2) The system [employer] generated this result transmitted ref erence range: 12.0 - 1 4.7 Seconds. The re ference range was not u sed to interpret this result as normal/abnor mal. INR (test code = 6301-6) Nor mal INR <1.1; Warfarin Therap eutic range 2.0 to 3. 0 or 2.5 to 3.5, dep ending upon the indica tions. Lab Interpretation (test Normal code = 79990-6) [facility]
[2023-03-26 21:14] LABS: Absolute Lymphocytes (CBC) 1.9 K/uL (0.7-4.9); Hematocrit 46.8 % (39.6-49.0); Lymphocytes % 19.4 % (15.3-44.8); MCV 86.2 fL (80-100); RBC Red Blood Cell Count 5.43 M/uL (4.33-5.43)
[2023-03-26 21:31] LABS: Potassium 4.3 mEq/L (3.5-5.1); Troponin High Sensitivity 14.4 pg/mL (<58.9)
--- NOTE | 2023-03-26 21:43 | RAD REPORT ---
EXAM DESCRIPTION: CT - Head Brain Wo Cont - 03/26/2023 9:17 pm CLINICAL HISTORY: TRAUMA COMPARISON: Head angio dated 11/16/2022; Head Brain Wo Cont dated 11/16/2022 TECHNIQUE: Noncontrast head CT images ad were obtained without IV contrast. Multiplanar reformats we re generated and reviewed. All CT scans are performed using dose optimization technique as appropriate and may include automated exposure control or mA/KV adjustment according to patient size. FINDINGS: No intracranial hemorrhage, mass, or edema. Midline structures are unremarkable. Normal ventricular caliber for age. Right caudate focus of hypoattenuation, stable, may represent a small remote infarct. Solis-white elke er differentiation is otherwise preserved, without evidence of acute infarct. No abnormal extra-axial fluid collections. Mild periventricular and deep white matter hypoattenuation, stable and nonspecific, most suggestive c hronic small vessel ischemic changes. Mastoid air cells are well aerated. Moderate left sphenoid sinus mucosal thickening with small air-fl uid level. . No acute bony findings. IMPRESSION: No evidence of an acute intracranial process. Stable chronic findings as above.
--- NOTE | 2023-03-26 22:14 | ER ---
Nurse's Notes [facility] Name: José Pat Age: 72 yrs Sex: Male : 1950 Arrival Date: 03/26/2023 Time: 20:26 Bed 5 Private MD: Diagnosis: SYNCOPE Presentation: 03/26 20:32 Chief complaint: EMS states: EMS was called out to the patients house by a good kd3 [employer] that was passing by and found him laying in his front yard. PT reported to EMS that he has had 5 to 6 episodes of fainting spells throughout today with the last one being about 30 minutes prior to EMS arrival. Pt is now A\\T\\O x 3 and reports no pain. Pt stated that he is supposed to be taking eliquis but has not been able to get it so he hasn't been taking it. Pt denies hitting his head and states that he "doesn't think he passed all the way out, he just keeps falling.". Coronavirus screen: Vaccine status: Patient reports receiving the 2nd dose of the covid vaccine. Ebola Screen: No symptoms or risks identified at this time. Initial Sepsis Screen: Does the patient meet any 2 criteria? No. Patient's initial sepsis screen is negative. Does the patient have a suspected source of infection? No. Patient's initial sepsis screen is negative. Risk Assessment: Do you want to hurt yourself or someone else? Patient reports no desire to harm self or others. Onset of symptoms was March 26, 2023. 20:32 Method Of Arrival: EMS: [facility] 3 20:32 Acuity: KIT 3 kd3 Triage Assessment: 20:37 General: Appears uncomfortable, Behavior is calm, cooperative. Pain: Denies pain. kd3 Neuro: Level of Consciousness is awake, alert, obeys commands, Oriented to person, place, time, situation. Cardiovascular: Patient's skin is warm and dry. Respiratory: Airway is patent Trachea midline Respiratory effort is even, unlabored, Respiratory pattern is symmetrical, tachypnea. Historical: - PMHx: 20:37 Atrial fibrillation; Chronic Chest Pain; COPD; Diabetes - IDDM; Myocardial infarction; kd3 Noncompliance with medications; CHF; - Immunization history:: Adult Immunizations up to date. - Social history:: Smoking status: Patient reports the use of cigarette tobacco products, smokes one-half pack cigarettes per day. Screenin:24 [facility] ED Fall Risk Assessment (Adult) History of falling in the last 3 months, aa9 including since admission Yes- single mechanical fall (1 pt) Confusion or Disorientation No (0 pts) Intoxicated or Sedated No (0 pts) Impaired Gait Yes (1 pt) Mobility Assist Device Used No (0 pt) Altered Elimination No (0 pt) Score/Fall Risk Level 0 - 2 = Low Risk Oriented to surroundings, Educated pt \\T\\ family on fall prevention, incl call for assistance when getting out of bed. Abuse screen: Denies threats or abuse. Denies injuries from another. Nutritional screening: No deficits noted. Tuberculosis screening: No symptoms or risk factors identified. Assessment: 22:24 Reassessment: Patient appears in no apparent distress at this time. Patient and/or aa9 family updated on plan of care and expected duration. Pain level reassessed. Patient is alert, oriented x 3, equal unlabored respirations, skin warm/dry/pink. Patient states feeling better. Vital Signs: 20:32 BP 105 / 73; Pulse 100; Resp 21; Temp 98.6; Pulse Ox 92% on R/A; Weight 80.74 kg; kd3 Height 5 ft. 7 in. ; Pain 0/10; 22:24 BP 131 / 87; Pulse 92; Resp 17; Temp 98.6(O); Pulse Ox 94% on R/A; aa9 20:32 Body Mass Index 27.88 (80.74 kg, 170.18 cm) kd3 20:32 Pain Scale: Adult kd3 ED Course: 20:31 Patient arrived in ED. kd3 20:31 Denny Vaughan MD is Attending Physician. sp3 20:32 Betina Daniel, MADELEINE is Primary Nurse. kd3 20:37 Triage completed. kd3 20:37 Arm band placed on left wrist. kd3 21:07 Initial lab(s) drawn, by me, sent to lab. Inserted saline lock: 22 gauge in right hand, wm using aseptic technique. Blood collected. 21:08 Basic Metabolic Panel Sent. wm 21:08 CBC with Diff Sent. wm 21:08 Troponin HS Sent. wm 21:19 CT Head Brain wo Cont In Process Unspecified. EDMS 22:00 Patient has correct armband on for positive identification. Placed in gown. Bed in low aa9 position. Call light in reach. Side rails up X2. 22:00 groundwater monitoring technician on. Pulse ox on. NIBP on. aa9 22:25 No provider procedures requiring assistance completed. IV discontinued, intact, aa9 bleeding controlled, No redness/swelling at site. Pressure dressing applied. Administered Medications: No medications were administered Medication: : VIS not applicable for this client. aa9 Outcome: : Discharge ordered by . paula3 :25 Discharged to home via wheelchair. aa9 22:25 Condition: stable :25 Discharge instructions given to patient, Instructed on discharge instructions, follow up and referral plans. Demonstrated understanding of instructions, follow-up care. :25 Patient left the ED. aa9 Signatures: Dispatcher [employer] EDCarrie New Setul, MD MD sp3 Betina Daniel RN RN kd3 Diandra Simpson, MADELEINE RN aa9
--- NOTE | 2023-03-26 22:14 | EDPHYS ---
Physician Documentation [facility] Name: José Pat Age: 72 yrs Sex: Male : 1950 Arrival Date: 03/26/2023 Time: 20:26 Bed 5 Private MD: ED Physician Denny Vaughan HPI: 03/26 20:45 This 72 yrs old Male presents to ER via EMS with complaints of syncope. sp3 20:45 72-year-old male with history of atrial fibrillation, chronic chest pain, COPD, sp3 diabetes as well as history of multiple episodes of syncope of unknown etiology and multiple presentations for this now presents again today for chief complaint syncope times "3-4 times" with the last time being in his front yard where a bystander activated EMS EMS brought him here. Patient denies head injury, current headache, current chest pain, or any symptoms at all currently. He states he "keeps falling out". ROS negative for headache, neck pain, chest pain, shortness of breath, abdominal pain, back pain, nausea, vomiting, diarrhea, palpitations, irregular heartbeat, rash, travel history, known sick contacts, fever, URI symptoms, or any other signs or symptoms on ROS at this time.. Historical: - PMHx: 20:37 Atrial fibrillation; Chronic Chest Pain; COPD; Diabetes - IDDM; Myocardial infarction; kd3 Noncompliance with medications; CHF; - Immunization history:: Adult Immunizations up to date. - Social history:: Smoking status: Patient reports the use of cigarette tobacco products, smokes one-half pack cigarettes per day. ROS: 20:47 Constitutional: Negative for fever, chills, and weight loss, Eyes: Negative for injury, sp3 pain, redness, and discharge, ENT: Negative for injury, pain, and discharge, Neck: Negative for injury, pain, and swelling, Cardiovascular: Negative for chest pain, palpitations, and edema, Respiratory: Negative for shortness of breath, cough, wheezing, and pleuritic chest pain, Abdomen/GI: Negative for abdominal pain, nausea, vomiting, diarrhea, and constipation, Back: Negative for injury and pain, MS/Extremity: Negative for injury and deformity, Skin: Negative for injury, rash, and discoloration, Psych: Negative for depression, anxiety, suicide ideation, homicidal ideation, and hallucinations, Allergy/Immunology: Negative for hives, rash, and allergies, Endocrine: Negative for neck swelling, polydipsia, polyuria, polyphagia, and marked weight changes. 20:47 All other systems are negative. Exam: 20:47 Constitutional: This is a well developed, well nourished patient who is awake, alert, sp3 and in no acute distress. Head/Face: Normocephalic, atraumatic. Eyes: Pupils equal round and reactive to light, extra-ocular motions intact. Lids and lashes normal. Conjunctiva and sclera are non-icteric and not injected. Cornea within normal limits. Periorbital areas with no swelling, redness, or edema. Neck: Trachea midline, no thyromegaly or masses palpated, and no cervical lymphadenopathy. Supple, full range of motion without nuchal rigidity, or vertebral point tenderness. No Meningismus. Chest/axilla: Normal chest wall appearance and motion. Nontender with no deformity. No lesions are appreciated. Cardiovascular: Regular rate and rhythm with a normal S1 and S2. No gallops, murmurs, or rubs. Normal PMI, no JVD. No pulse deficits. Respiratory: Lungs have equal breath sounds bilaterally, clear to auscultation and percussion. No rales, rhonchi or wheezes noted. No increased work of breathing, no retractions or nasal flaring. Abdomen/GI: Soft, non-tender, with normal bowel sounds. No distension or tympany. No guarding or rebound. No evidence of tenderness throughout. Back: No spinal tenderness. No costovertebral tenderness. Full range of motion. Skin: Warm, dry with normal turgor. Normal color with no rashes, no lesions, and no evidence of cellulitis. MS/ Extremity: Pulses equal, no cyanosis. Neurovascular intact. Full, normal range of motion. Neuro: Awake and alert, GCS 15, oriented to person, place, time, and situation. Cranial nerves II-XII grossly intact. Motor strength 5/5 in all extremities. Sensory grossly intact. Cerebellar exam normal. Normal gait. Psych: Awake, alert, with orientation to person, place and time. Behavior, mood, and affect are within normal limits. 20:47 Constitutional: The patient appears unkempt. 20:50 ECG was reviewed by the Attending Physician. EKG demonstrates sinus tachycardia at 100 sp3 bpm with first-degree AV block with a IL interval of 242 and known right bundle branch block with nonspecific ST/T changes without evidence of acute ischemia. Vital Signs: 20:32 BP 105 / 73; Pulse 100; Resp 21; Temp 98.6; Pulse Ox 92% on R/A; Weight 80.74 kg; kd3 Height 5 ft. 7 in. ; Pain 0/10; 22:24 BP 131 / 87; Pulse 92; Resp 17; Temp 98.6(O); Pulse Ox 94% on R/A; aa9 20:32 Body Mass Index 27.88 (80.74 kg, 170.18 cm) kd3 20:32 Pain Scale: Adult kd3 MDM: 20:34 Patient medically screened. sp3 20:47 Data reviewed: vital signs, nurses notes, EMS record, old medical records, lab test sp3 result(s), EKG, radiologic studies. ED course: 72-year-old male with recurrent syncope. Differential diagnosis includes CVA, embolic event, TIA, arrhythmia, ACS, ICH, metabolic derangement, among others. Not highly concerned for any critical findings given recurrent nature of patient's presentation and multiple history of past presentations. Will obtain CT scan of the head, EKG, laboratory values and generalized observation and supportive care. If work-up is negative, I believe the patient can be safely discharged home to PCP follow-up.. 22:12 ED course: Reviewed CT scan which is normal as well as all laboratory values which sp3 demonstrate no significant abnormality. Patient has had no episodes in the ER we will safely discharge him home at this time with follow-up with his PCP.. 03/26 20:34 Order name: Basic Metabolic Panel; Complete Time: 21:39 sp3 03/26 20:34 Order name: CBC with Diff; Complete Time: 21:39 sp3 03/26 20:34 Order name: Troponin HS; Complete Time: 21:39 sp3 03/26 20:34 Order name: CT Head Brain wo Cont; Complete Time: 22:12 sp3 03/26 20:34 Order name: EKG; Complete Time: 20:35 sp3 03/26 20:34 Order name: Cardiac monitoring; Complete Time: 20:38 sp3 03/26 20:34 Order name: EKG - Nurse/Tech; Complete Time: 20:51 sp3 03/26 20:34 Order name: IV Saline Lock; Complete Time: 21:08 sp3 03/26 20:34 Order name: Labs collected and sent; Complete Time: 21:08 sp3 03/26 20:34 Order name: O2 Sat Monitoring; Complete Time: 20:51 sp3 Administered Medications: No medications were administered Disposition Summary: 03/26/23 22:13 Discharge Ordered Location: Home sp3 Condition: Stable sp3 Diagnosis - SYNCOPE sp3 Followup: sp3 - With: Private Physician - When: Upon discharge from the Emergency Department - Reason: Continuance of care Discharge Instructions: - Discharge Summary Sheet sp3 - Syncope sp3 Forms: - Medication Reconciliation Form sp3 - Thank You Letter sp3 - Antibiotic Education sp3 - Prescription Opioid Use sp3 Signatures: Dispatcher [employer] Denny Villar MD MD sp3 Betina Daniel RN RN kd3
[2023-03-26 23:23] VITALS: TEMP 98.6
[2023-03-26 23:24] VITALS: BP 131/87; O2SAT 94
--- NOTE | 2023-03-27 05:37 | EKG ---
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
== END 2023-03-26 22:25 | disposition home or self-care (01) ==
LOC: ER 20:26
DX: R55 Syncope and collapse (principal); I48.91 Unspecified atrial fibrillation; J44.9 Chronic obstructive pulmonary disease, unspecified; I50.9 Heart failure, unspecified; F17.210 Nicotine dependence, cigarettes, uncomplicated
CPT/HCPCS: 36415; 70450; 80048; 84484; 85025; 93005